=== PATIENT | female | born 1950 | race Caucasian/White ===

== ENCOUNTER 2019-11-18 13:29 | Outpatient (CLI) | payer MEDICARE, SELFPAY ==
--- NOTE | ~2019-11-18 | XR_ITS ---
EXAMINATION: XR lg joint inject/asp w image DATE: 11/18/2019 14:25 INDICATION: Left hip arthritis presenting with pain TECHNIQUE: A time-out was performed to verify the patient's name, date of , and procedure to b e performed. The procedure including the risks, benefits, and alternatives was discussed with the pat ient. Risks discussed included bleeding and infection. The patient understood the risks and agreed to proceed. The skin overlying the left hip joint was prepped and draped in usual sterile fashion. An esthetic was administered with 1% lidocaine subcutaneously. A 22 G needle was advanced under fluoros copic guidance into the joint. Injection of 0.8 mL of Omnipaque 240 confirmed intra-articular positi on of the needle. Subsequently, injectate consisting of 3 mm of a 2:1 mixture of 0.5% Marcaine: 80 m g/mL Depo-Medrol for a total dosage of 80 mg Depo-Medrol was instilled. Washout of contrast was seen confirming intra-articular administration. The needle was removed and the entry site was cleaned and dressed. There were no immediate complications. Fluoroscopy exposure time was 0.2 minutes. The total number of images was 2. FINDINGS: Real-time fluoroscopy demonstrates the needle in the left hip joint. Patient's pain prior t o procedure:12/22. Patient's pain following the procedure: 10/24. IMPRESSION: 1. Left hip injection of local anesthetic and steroid with decrease in the patient's presenting pain. Reviewed, dictated and finalized at location A. TH INFORMATION SPECIALIST IMPRESSION: 1. Left hip injection of local anesthetic and steroid with decrease in the nolvia ent's presenting pain.
== END 2019-11-18 13:30 | disposition home or self-care (01) ==
LOC: ANHIMG 13:30
PROVIDERS: PCP Internal Medicine; Visit Provider Orthopaedic Surgery
DX: M16.12 Unilateral primary osteoarthritis, left hip (principal)
CPT/HCPCS: 20610; 77002; J1040; Q9966

== ENCOUNTER 2020-03-22 22:57 | Observation (INO) | payer MEDICARE, SELFPAY ==
[2020-03-22 23:00] VITALS: BP 157/80; PULSE 84; RESP 18; TEMP 37.3; O2SAT 98
[2020-03-22 23:13] VITALS: BP 157/80; PULSE 84; RESP 18; TEMP 37.3; O2SAT 98
--- NOTE | 2020-03-22 23:20 | ECG_ITS ---
Measurements Intervals [place] Rate: 84 P: 44 VT: 196 QRS: 1 QRSD: 106 T: 48 QT: 376 QTc: 447 Interpretive Statements SINUS RHYTHM BASELINE ARTIFACT- I, II, III, AVR, AVL, AVF, V1 NORMAL ECG Electronically Signed On 03-23-2020 7:26:14 CDT by Manan Davenport D.O.
[2020-03-22] MEDS: ONDANSETRON INJ 4 MG/2 ML VIAL IV PUSH (23:31)
[2020-03-22 23:33] LABS: Hematocrit 41.3 % (35.0-42.0); Hemoglobin 13.7 g/dL (11.7-13.8); Mean Corpuscular HGB Conc 33.2 g/dL (32.0-36.0); Mean Corpuscular Hemoglobin 30.4 pg (27.0-31.0); Mean Corpuscular Volume 91.8 fL (78.0-102.0); Platelet Count Result 209 K/mm3 (150-420); White Blood Count 8.8 K/mm3 (4.8-10.8)
[2020-03-22] MEDS: SODIUM CHLORIDE 0.9% IV 1,000 ML 999 ML IV CONT (23:43)
[2020-03-22 23:47] LABS: Add Urine Microscopic? YES; Appearance Urine Clear (Clear); Bilirubin Urine Negative (Negative); Blood Urine Negative (Negative); Color Urine Yellow (Yellow); Glucose Urine UA Negative (Negative); Ketones Urine 2+ (Negative); Leukocyte Esterase Ur Trace (Negative); Nitrate Urine Negative (Negative); Protein Urine Trace (Negative); pH Urine 8.5 (5.0-8.0)
[2020-03-22 23:53] LABS: Lactic Acid 1.8 mmol/L (0.4-2.0)
[2020-03-22 23:53] LABS: Bacteria Urine 4+ /hpf; RBC Urine 0-2 /hpf (0-2); Squamous Epithelial Cell Urine Moderate /hpf (Few)
[2020-03-22 23:58] LABS: Alanine Aminotransferase 23 U/L (14-59); Alkaline Phosphatase 70 U/L (46-116); Anion Gap 12.1 mmol/L (7-16); Aspartate Amino Transferase 26 U/L (15-37); Bilirubin,Total 1.4 mg/dL (0.00-1.00); Blood Urea Nitrogen 10 mg/dL (7-18); Calcium 8.7 mg/dL (8.5-10.1); Carbon Dioxide 26 mmol/L (21-32); Chloride 104 mmol/L (98-108); Creatine Kinase 62 U/L (26-192); Estimated CRCL calculation 61 ml/min; Estimated Glomerular Filt Rate 46; Glucose 113 mg/dL (70-99); Osmolality Calculated 286 mOsm/kg (285-295); Potassium 4.1 mmol/L (3.5-5.1); Sodium 138 mmol/L (136-145); Thyroid Stimulating Hormone 0.02 uIU/mL (0.36-3.74); Total Protein 6.2 g/dL (6.4-8.2)
[2020-03-22 23:59] LABS: Troponin I 0.08 ng/mL (0.00-0.056)
[2020-03-23] VITALS (14 sets, daily range): BP systolic 116–147; BP diastolic 57–85; PULSE 70–88; RESP 18–20; TEMP 36.4–37; O2SAT 94–98; BMI 42.5
--- NOTE | 2020-03-23 00:01 | PC.NURSE ---
Pt. assisted back to bed from commode, pt. c/o general weakness and feeling exhausted . VSS at this time.
--- NOTE | 2020-03-23 00:05 | ED.NAVMDI ---
HPI - Nausea/Vomiting/Diarrhea General Chief complaint: Nausea/Vomiting/Diarrhea Stated complaint: AMB Source: patient Mode of arrival: EMS Limitations: no limitations History of Present Illness HPI Narrative: this is a 70-year-old female that presents with some weakness and nausea, has been going on for the last couple of days but has got a little worse over last couple of hours after her air conditioning at her home has been out for the last couple of days. Patient with a history of hypertension, hyperlipidemia and hypothyroidism. Denies chest pain with no shortness of breath no abdominal pain no back pain, there is currently no fever chills no diarrhea or constipation. MD elicited complaint: nausea Onset (ago): day(s) Associated nausea: Yes Location of pain: none Related Data Home Medications Medication Instructions Recorded Confirmed alprazolam 0.25 mg PO PRN PRN 03/22/20 03/22/20 cyclobenzaprine 10 mg PO PRN PRN 03/22/20 03/22/20 diclofenac sodium 75 mg PO BID 03/22/20 03/22/20 ezetimibe 10 mg PO DAILY 03/22/20 03/22/20 furosemide 40 mg PO PRN PRN 03/22/20 03/22/20 levothyroxine 150 mcg PO DAILY 03/22/20 03/22/20 meloxicam 7.5 mg PO DAILY 03/22/20 03/22/20 nortriptyline 25 mg PO DAILY 03/22/20 03/22/20 pregabalin 200 mg PO BID 03/22/20 03/22/20 propranolol 160 mg PO DAILY 03/22/20 03/22/20 ropinirole 2 mg PO DAILY 03/22/20 03/22/20 spironolactone 100 mg PO DAILY 03/22/20 03/22/20 venlafaxine 150 mg PO DAILY 03/22/20 03/22/20 Allergies Allergy/AdvReac Type Severity Reaction Status Date / Time adhesive Allergy Intermediate RASH Verified 11/11/19 10:38 alendronate sodium Allergy Mild STOMACH Verified 11/11/19 10:38 PAIN atorvastatin Allergy Unknown Unknown Verified 11/11/19 10:38 tizanidine Allergy Unknown Unknown Verified 11/11/19 10:38 Review of Systems Review of Systems: All systems reviewed & are unremarkable except as noted in HPI and below PMFSH Past Medical History Medical History Degenerative joint disease (DJD) of hip HTN (hypertension) Hypothyroidism (acquired) Family History Family History Other Family history of malignant neoplasm Social History Social History Smoking status: Never smoker Alcohol intake: current Exam Const: General: alert Orientation/consciousness: patient oriented x3 HENMT: Head: normal to inspection Eyes: Cornea: corneas normal Pupils: Equal, round and reactive pupils present EOM: EOMs intact bilaterally Neck: Neck: normal visual inspection and no lymphadenopathy Chest: Chest palpation & inspection: normal inspection of the chest Resp: Effort & Inspection: normal respiratory effort Cardio: Rate: regular rate Rhythm: regular rhythm GI: GI Palp: Yes Soft to palpation Percussion: Yes normal to percussion : General: Yes no CVA tenderness Back/Spine/Pelvis: Back: no CVA tenderness Skin: General skin exam: normal color Rashes: no rashes Neuro: General: patient oriented x3 and moves all extremities Extrem: General: normal to inspection and no pedal edema Psych: Mental Status: mental status grossly normal Course Course Emergency Course: patient has been having weakness with some nausea over the last 48 hours, the patient after reassessment is comfortable with no chest pain no shortness of breath no abdominal pain. Vital Signs Vital signs: Vital Signs Temperature 37.3 C 03/22/20 23:00 Pulse Rate 84 03/22/20 23:00 Respiratory Rate 18 03/22/20 23:00 Blood Pressure 157/80 H 03/22/20 23:00 Pulse Oximetry 98 03/22/20 23:00 Temperature 37.3 C 03/22/20 23:13 Pulse Rate 82 03/23/20 00:02 Respiratory Rate 20 03/23/20 00:02 Blood Pressure 130/60 03/23/20 00:02 Pulse Oximetry 97 03/23/20 00:02 MDM - Nausea/Vomiting/Diarrhea Medical Records
--- NOTE | 2020-03-23 00:16 | PC.NURSE ---
ERP spoke c pt. and orders to admit for 23 hr. obs. to tele. Call placed to floor.
[2020-03-23 00:24] LABS: BNP 37.4 pg/mL (0-100)
[2020-03-23] MEDS: ASPIRIN 81 MG CHEWABLE TABLET 324 MG PO (00:34)
--- NOTE | 2020-03-23 01:00 | ADMGEN ---
This patient, Gilma Mills, was admitted to 2nd Floor Room 208-2. Patient/family oriented to hospital policies and general routines including ID bracelet, bed and alarms, visiting hours, pain management, procedures, bathroom and other care routines, personal items, smoking policy, room service/diet, and visiting hours. Valuables list has been completed. Information on how to activate the Rapid Response Team has been discussed. Patient/Family are encouraged to report perceived risks to care and to ask questions if they do not understand what they are told or what they should do.
[2020-03-23] MEDS: SODIUM CHLORIDE 0.9% IV 1,000 ML 100 ML IV CONT ×3 (01:30→21:56)
--- NOTE | 2020-03-23 01:47 | PC.NURSE ---
New bag of IV fluid hung and infusing as ordered.
[2020-03-23 04:38] LABS: Troponin I 0.07 ng/mL (0.00-0.056)
--- NOTE | 2020-03-23 04:40 | PC.NURSE ---
Lab called to report critical troponin level of 0.07.
--- NOTE | 2020-03-23 04:44 | PC.NURSE ---
Dr. Kate notified of critical troponin results; No new orders at this time.
[2020-03-23 07:47] LABS: Basophils Absolute Auto 0.04 K/mm3 (0.00-0.10); Basophils Percent Auto 0.6 % (0.0-1.0); Eosinophils Absolute Auto 0.49 K/mm3 (0.02-0.50); Eosinophils Percent Auto 7.5 % (1.0-6.0); Hematocrit 38.5 % (35.0-42.0); Hemoglobin 12.6 g/dL (11.7-13.8); Immature Granulocyte Absolute 0.02 K/mm3 (0.00-0.00); Immature Granulocyte Percent A 0.3 % (0.0-0.0); Lymphocytes Absolute Auto 1.15 K/mm3 (1.10-4.50); Lymphocytes Percent Auto 17.6 % (18.0-42.0); Mean Corpuscular HGB Conc 32.7 g/dL (32.0-36.0); Mean Corpuscular Hemoglobin 30.4 pg (27.0-31.0); Mean Corpuscular Volume 92.8 fL (78.0-102.0); Mean Platelet Volume 9.2 fl (9.2-11.8); Monocytes Absolute Auto 0.68 K/mm3 (0.10-0.90); Monocytes Percent Auto 10.4 % (2.0-11.0); Neutrophils Absolute Auto 4.2 K/mm3 (1.7-7.2); Neutrophils Percent Auto 63.6 % (50.0-70.0); Platelet Count Result 180 K/mm3 (150-420); Red Blood Count 4.15 M/mm3 (4.20-5.40); Red Cell Distribution Width 12.1 % (11.6-14.4); White Blood Count 6.6 K/mm3 (4.8-10.8)
[2020-03-23 08:03] LABS: BNP 32.4 pg/mL (0-100)
--- NOTE | 2020-03-23 08:09 | PC.NURSE ---
Assisted up to chair for breakfast, slight nausea, no emesis, needed minimal assist to get from sitting to standing position
[2020-03-23 08:13] LABS: Alanine Aminotransferase 24 U/L (14-59); Albumin Level 2.7 g/dL (3.4-5.0); Alkaline Phosphatase 63 U/L (46-116); Anion Gap 11.1 mmol/L (7-16); Aspartate Amino Transferase 27 U/L (15-37); Bilirubin,Total 0.8 mg/dL (0.00-1.00); Blood Urea Nitrogen 9 mg/dL (7-18); Calcium 8.4 mg/dL (8.5-10.1); Carbon Dioxide 27 mmol/L (21-32); Chloride 105 mmol/L (98-108); Estimated CRCL calculation 70 ml/min; Estimated Glomerular Filt Rate 53; Glucose 102 mg/dL (70-99); Magnesium 1.7 mg/dL (1.8-2.4); Osmolality Calculated 286 mOsm/kg (285-295); Potassium 4.1 mmol/L (3.5-5.1); Sodium 139 mmol/L (136-145); Total Protein 5.8 g/dL (6.4-8.2)
[2020-03-23 08:14] LABS: Thyroid Stimulating Hormone 0.03 uIU/mL (0.36-3.74); Troponin I 0.06 ng/mL (0.00-0.056)
[2020-03-23] MEDS: ONDANSETRON INJ 4 MG/2 ML VIAL IV PUSH (08:17)
--- NOTE | 2020-03-23 08:20 | PC.NURSE ---
Nauseated, zofran given, breakfast taken away,
[2020-03-23] MEDS: VENLAFAXINE HCL XR 75 MG CAP.ER.24H 150 MG PO (09:38)
[2020-03-23] MEDS: NORTRIPTYLINE HCL 25 MG CAPSULE PO (09:38)
[2020-03-23] MEDS: PREGABALIN 50 MG CAPSULE 200 MG PO ×2 (09:38→17:07)
[2020-03-23] MEDS: rOPINIRole HCL 1 MG TABLET 2 MG PO (09:39)
[2020-03-23] MEDS: SPIRONOLACTONE 25 MG TABLET 100 MG PO (09:39)
[2020-03-23] MEDS: EZETIMIBE 10 MG TABLET PO (09:39)
[2020-03-23] MEDS: MAGNESIUM SULF 2 GM/WATER 50ML 2 GM/50 ML BAG IVPB (09:41)
--- NOTE | 2020-03-23 10:32 | ECG_ITS ---
Measurements Intervals [place] Rate: 75 P: 54 CO: 220 QRS: 49 QRSD: 105 T: 56 QT: 389 QTc: 436 Interpretive Statements SINUS RHYTHM WITH FIRST DEGREE AV BLOCK ABNORMAL ECG Electronically Signed On 03-23-2020 12:57:49 CDT by Manan Davenport D.O.
[2020-03-23 10:41] LABS: Phosphorus 3.4 mg/dL (2.6-4.7)
--- NOTE | 2020-03-23 10:45 | PC.NURSE ---
IV site painful, stopped infusion, notified hospitalist patient upset and crying, not wanting to stay
--- NOTE | 2020-03-23 11:00 | PC.NURSE ---
IV site restarted and patient agreeable to stay over night with dc tomorrow, more calm, no longer crying
--- NOTE | 2020-03-23 11:16 | PC.NURSE ---
Up to bathroom to void, SBA amd use of walker
--- NOTE | 2020-03-23 12:25 | PM.IMHP ---
H&P: HPI History of Present Illness Chief complaint: hyperthyroidism weakness <Kami Greenfield, MACHINE OPERATOR - Last Filed: 03/23/20 15:25> Narrative: Gilma Mills is a 70 year old female admitted with weakness, Nausea, Vomiting, and Diarrhea. This has been going on for the last couple of days but has got a little worse over last couple of hours. She has not have air conditioning at her home for the last 2-3 days as it is broke and she is unsure when it will be fixed. She also stated that her Levothyroxine was increased from 125 mcg to 150 mcg in recent months, her PCP office confirmed that increase in dose on January 23. Her PCP Dr. Sequeira's office confirmed that the patient's TSH was 7.33 on 12/15/2019. She has a history of hypertension, Fibromyalgia, migraines, hyperlipidemia and hypothyroidism. She was admitted for hyperthyroidism, weakness, elevated troponin level, UTI, and nausea. She was nauseated by the odor of her breakfast meal, so she wanted it removed and asked for a sprite and crackers. Her creatinine in August of 2019 was 0.98, we will consider that a baseline level. Her creatinine at admission yesterday was elevated at 1.17 and GFR low at 46. Patient stated that she has always had a difficult time staying hydrated or drinking enough water. She stated that she was raised and has ingrained in her mind that water would rust her insides . I did discuss with her many sources of beverages that could provide her with hydration besides just plain water. Her total bilirubin was 1.4, slightly elevated. Her troponin was elevated at 0.08 and her TSH was significantly low at 0.02. Her UA showed trace leukocytes, 10-15 wbc's, 4+ bacteria. I have ordered a urine culture to be completed on her ER sample and started her on Rocephin Q 24 hours IV. She has not had any fever, chills, vomiting or diarrhea or constipation complaints overnight or this morning. She currently denies chest pain, SOB, dyspnea, chest palpitations, arm or jaw pain or numbness, abdominal pain, back or flank pain. Her EKG at admission was normal and her continuous cardiac telemetry monitoring has been showing a normal sinus rhythm with a heart rate in the 80s to 90s, with no ectopy or ST changes that are concerning. She has had 3 troponin levels that have all been elevated, but slowly improving, 0.08, 0.07, 0.06. I have ordered another EKG to be done today and a cardiac panel to be completed at 1:00 p.m. this afternoon. Tonight will be OBS night #1, planning on discharge tomorrow. Her daughter is arranging for patient's home air conditioning to be repaired tomorrow afternoon. <Kami Greenfield NP - Last Filed: 03/23/20 15:25> Review of Systems Review of Systems: All systems reviewed & are unremarkable except as noted in HPI and below <Kami Greenfield MACHINE OPERATOR - Last Filed: 03/23/20 15:25> Constitutional: Constitutional: Reports as per HPI, Reports body ache(s), Denies chills, Denies excessive sweating, Denies headache(s), Denies increased appetite, Reports lethargy, Denies snoring, Reports weakness and Denies weight gain <Kami Greenfield MACHINE OPERATOR - Last Filed: 03/23/20 15:25> Eyes: Eyes: Reports as per HPI, Denies blurry vision, Denies exophthalmos, Denies diplopia, Denies floaters, Denies loss of peripheral vision and Denies photophobia <Kami Greenfield, MACHINE OPERATOR - Last Filed: 03/23/20 15:25> ENT: Reports system reviewed and no additional complaints, except as documented, Reports as per HPI, Reports Normal hearing present, Denies facial pain, Denies headache(s), Denies odynophagia and Denies tinnitus <Kami Greenfield NP - Last Filed: 03/23/20 15:25> Cardiovascular: Cardiovascular: Reports as per HPI, Denies chest pain (none at this time, intermittently previously), Denies diaphoresis, Denies pedal edema, Denies leg edema, Denies lightheadedness and Denies palpitations <Kami Greenfield NP - Last Filed: 03/23/20 15:25> Respiratory: Respiratory: Reports as per HPI, Denies chest congestion,
[2020-03-23 13:41] LABS: Creatine Kinase 100 U/L (26-192)
[2020-03-23 13:46] LABS: Troponin I 0.07 ng/mL (0.00-0.056)
[2020-03-23 14:15] LABS: Free T4 Free Thyroxine 2.13 ng/dL (0.76-1.46); Vitamin B12 324 pg/mL (193-986)
--- NOTE | 2020-03-23 15:21 | PC.NURSE ---
In chair watching TV, no pain, fluids infusing
--- NOTE | 2020-03-23 15:58 | PM.EVENT ---
Event Note Event Note Event Note: Pt. admitted with weakness and nausea for several days. Hot outside, fans at home but no A.C. UTI. No fever or leukocytosis. No dysuria. Being treated with Rocephin. No chest pain or hx of CAD. Troponins minimal elevation above upper limits of normal. Normal EKG. Pt. just doesn't feel right today. NO specific symptoms. I examined and spoke with patient. Abdomen is soft and nontender. No CVA percussion pain. I suspect symptoms secondary to UTI. Pt had no fever or tachycardia on presentation. No significant changes in troponins likely indicates this is pt's baseline. . Agree with PRINCIPAL JAVA SOFTWARE ENGINEER's assessment and plan. IVF today, PPI, continue antibiotics. D.C. tomorrow when A.C. is expected to be fixed. Kami Muse will obtain cadiology records tomorrow
--- NOTE | 2020-03-23 17:25 | PC.NURSE ---
Feeling better, in chair eating dinner, no nausea
--- NOTE | 2020-03-23 19:30 | PC.NURSE ---
Patient ambulated to/from bathroom with steady gait. Denies pain/complaints/needs @ this time. IVF infusing to site in RFA without difficulty. No distress noted. Call light in reach.
--- NOTE | 2020-03-23 20:20 | PC.NURSE ---
Patient lying in bed watching tv. Denies pain/complaints/needs @ this time. IVF infusing without difficulty to site in RFA. No distress noted. Call light in reach.
--- NOTE | 2020-03-23 21:40 | PC.NURSE ---
Patient lying in bed reading. Denies pain/complaints/needs @ this time. IVF infusing to site in RFA without difficulty. No distress noted. Call light in reach.
--- NOTE | 2020-03-23 23:20 | PC.NURSE ---
Patient in bed reading. Denies pain/complaints/needs @ this time. No distress noted. IVF infusing to site in RFA without difficulty. Call light in reach.
[2020-03-24] VITALS: BP 113/54; PULSE 76; RESP 18; TEMP 36.5; O2SAT 97
--- NOTE | 2020-03-24 01:20 | PC.NURSE ---
Patient in bed reading. IVF infusing to site in RFA without difficulty. Denies pain/complaints/needs @ this time. No distress noted. Call light in reach.
--- NOTE | 2020-03-24 02:05 | PC.NURSE ---
Patient still lying in bed reading. Nurse asked if patient ever sleeps and patient said she may take short cat naps but that's it. Denies pain/complaints/needs @ this time. IVF infusing to site in RFA without difficulty. No distress noted. Call light in reach.
--- NOTE | 2020-03-24 03:15 | PC.NURSE ---
Patient appears to be sleeping by the rise and fall of her chest. Respirations even and unlabored. No distress noted. IVF infusing to site in RFA without difficulty. Call light in reach.
[2020-03-24 04:00] VITALS: BP 108/55; PULSE 74; RESP 16; TEMP 36.6; O2SAT 94
--- NOTE | 2020-03-24 04:10 | PC.NURSE ---
Patient awakened easily for VS. Denies pain/complaints/needs @ this time. IVF infusing to site in RFA without difficulty. No distress noted. Patient ambulated to/from bathroom with CGA with steady gait. Patient had trouble getting up from toilet this time. Call light in reach.
--- NOTE | 2020-03-24 05:15 | PC.NURSE ---
Patient appears to be sleeping by the rise and fall of her chest. Respirations even and unlabored. IVF infusing to site in RFA without difficulty. No distress noted. Call light in reach.
[2020-03-24 06:04] LABS: Hematocrit 39.5 % (35.0-42.0); Hemoglobin 12.7 g/dL (11.7-13.8); Mean Corpuscular HGB Conc 32.2 g/dL (32.0-36.0); Mean Corpuscular Hemoglobin 30.2 pg (27.0-31.0); Mean Corpuscular Volume 93.8 fL (78.0-102.0); Mean Platelet Volume 9.2 fl (9.2-11.8); Platelet Count Result 216 K/mm3 (150-420); Red Blood Count 4.21 M/mm3 (4.20-5.40); Red Cell Distribution Width 12.3 % (11.6-14.4); White Blood Count 6.6 K/mm3 (4.8-10.8)
--- NOTE | 2020-03-24 06:20 | PC.NURSE ---
Patient lying in bed playing on her phone. IVF infusing to site in RFA without difficulty. Denies pain/complaints/needs @ this time. No distress noted. Call light in reach.
[2020-03-24 06:27] LABS: Alanine Aminotransferase 28 U/L (14-59); Albumin Level 2.7 g/dL (3.4-5.0); Alkaline Phosphatase 68 U/L (46-116); Anion Gap 12.8 mmol/L (7-16); Aspartate Amino Transferase 26 U/L (15-37); Bilirubin,Total 0.5 mg/dL (0.00-1.00); Blood Urea Nitrogen 8 mg/dL (7-18); Calcium 8.5 mg/dL (8.5-10.1); Carbon Dioxide 25 mmol/L (21-32); Chloride 106 mmol/L (98-108); Estimated CRCL calculation 70 ml/min; Estimated Glomerular Filt Rate 53; Glucose 95 mg/dL (70-99); Osmolality Calculated 288 mOsm/kg (285-295); Potassium 3.8 mmol/L (3.5-5.1); Sodium 140 mmol/L (136-145); Total Protein 6.1 g/dL (6.4-8.2)
[2020-03-24 06:28] LABS: Band Neutrophils Percent 0 % (0-6); Eosinophils Absolute Manual 0.85 K/mm3 (0.02-0.5); Eosinophils Percent Manual 13 % (1-6); Lymphocytes Absolute Manual 1.45 K/mm3 (1.1-4.5); Lymphocytes Percent Manual 22 % (18-44); Monocytes Absolute Manual 0.52 K/mm3 (0.1-0.90); Monocytes Percent Manual 8 % (3-9); Neutrophils Absolute Manual 3.76 K/mm3 (1.7-7.2); Neutrophils Percent Manual 57 % (46-73); Total Cells Counted 100; Troponin I 0.07 ng/mL (0.00-0.056)
[2020-03-24 06:29] LABS: Platelet Estimate Adequate (Adequate)
[2020-03-24 08:00] VITALS: BP 119/62; PULSE 72; PULSE 82; RESP 18; TEMP 37.1; O2SAT 95
--- NOTE | 2020-03-24 08:39 | PM.DS ---
DS: Admitting Diagnosis Admitting Diagnosis Admitting Diagnosis: Thyrotoxicosis, unspecified without thyrotoxic crisis or storm DS: Discharge Diagnosis Discharge Diagnosis (1) Hyperthyroidism: Code(s): E05.90 - Thyrotoxicosis, unspecified without thyrotoxic crisis or storm Status: Acute Assessment and Plan: Exogenous Hyperthyroidism. history of hypothyroidism. TSH was significantly low at 0.02. improved to 0.[address] Sequeira's office confirmed that the patient's TSH was 7.33 on 12/15/2019 was on levothyroxine 125 mcg per day until January 23, when her dose was increased to 150 mcg per day by her PCP Dr. Sequeira. her s/s include heat intolerance, tremor, palpitations, anxiety, increased frequency of BMs, shortness of breath at times. currently holding her levothyroxine doses for 5-7 days. will need to be monitored outpatient with serial TSH blood work checks and follow-up with her PCP Dr. Sequeira for guidelines as when it is safe to restart her Levothyroxine needs to continue to work on dietary changes, weight loss and increasing activity - I offered the patient home health PT/OT as well as outpatient physical therapy, both of which she denied. should avoid heat, wear loose fitting clothes, drink plenty of water and stay hydrated. EKG at admission was normal and her continuous cardiac telemetry monitoring has been showing a normal sinus rhythm with a heart rate in the 80s to 90s, with no ectopy or ST changes that are concerning continue to hold her levothyroxine at this time of discharge instructed patient to get weekly TSH lab work completed and follow-up with PCP (2) Weakness: Code(s): R53.1 - Weakness Status: Acute Assessment and Plan: Chronic deconditioning compounded by Hyperthroidism, Dehydration(CARMEN), possible heat exhaustion, needs to continue to work on dietary changes, weight loss and increasing activity - I offered the patient home health PT/OT as well as outpatient physical therapy, both of which she denied. treat UTI rule out cardiac concerns should avoid heat, wear loose fitting clothes, drink plenty of water and stay hydrated PT/OT eval prior to discharge, pssibly Home O2 study prior to discharge. F/U with PCP COVID negative - RULED OUT (3) Elevated troponin I level: Code(s): R79.89 - Other specified abnormal findings of blood chemistry Status: Acute Assessment and Plan: EKG at admission - without ST changes or concerning ectopy. received 325 mg ASA in ED. denies chest pain, SOB, dyspnea, chest palpitations, arm or jaw pain or numbness, abdominal pain, back or flank pain. Continued her home medications for hypertension and hyperlipidemia elevated Troponin levels may be due to her drug induced-hyperthyroidism and/or her possible heat exhaustion and/or dehydration (CARMEN) heart rate has been sinus in the 80s since admission, her most elevated blood pressures were in the 150s over 80s at admission. 3 troponin levels that have all been elevated, but slowly improving, 0.08, 0.07, 0.06. 0.07 to EKGs without acute ST elevation or depression instructed patient to follow-up with her die mounter and make her appointment to be seen by him in 1-[address] Dain Matos in [place], [place] (phone [phone]) (4) UTI (urinary tract infection): Code(s): N39.0 - Urinary tract infection, site not specified Status: Acute Assessment and Plan: no urinary s/s at this time, no flank pain. intake and output documented in monitored may be due to her over -heated home, poor intake, morbid obesity, nausea continue oral hydration after discharge encourage oral hydration as well treated with IV Rocephin while in the hospital, discharged on oral cefdinir monitoring for any fevers, WBC count, urinary complaints. Blood & urine cultures remains process she will need to follow-up with her primary care physician to get her urine and blood culture resul
[2020-03-24 09:01] LABS: BNP 91.3 pg/mL (0-100)
[2020-03-24] MEDS: VENLAFAXINE HCL XR 75 MG CAP.ER.24H 150 MG PO (09:43)
[2020-03-24] MEDS: SPIRONOLACTONE 25 MG TABLET 100 MG PO (09:43)
[2020-03-24] MEDS: PREGABALIN 50 MG CAPSULE 200 MG PO (09:44)
[2020-03-24] MEDS: rOPINIRole HCL 1 MG TABLET 2 MG PO (09:44)
[2020-03-24] MEDS: NORTRIPTYLINE HCL 25 MG CAPSULE PO (09:44)
[2020-03-24] MEDS: ACETAMINOPHEN 325 MG TABLET 650 MG PO (09:47)
[2020-03-24] MEDS: EZETIMIBE 10 MG TABLET PO (09:47)
[2020-03-24 12:00] VITALS: BP 99/52; PULSE 69; RESP 18; TEMP 36.5; O2SAT 94
[2020-03-24 12:46] LABS: Thyroid Stimulating Hormone 0.04 uIU/mL (0.36-3.74)
[2020-03-24 13:39] LABS: SARS-CoV-2 RNA PCR Negative
[2020-03-27 18:49] LABS: Vitamin D 25 Hydroxy 21 ng/mL (30-100)
[2020-03-28 05:10] LABS: Thyroglobulin 3.4 ng/mL (2.8-40.9); Thyroglobulin Antibodies <1 IU/mL (<=1); Thyroid Peroxidase Antibodies <1 IU/mL (<9)
[2020-03-28 14:01] LABS: Parathyroid Intact 59 pg/mL (14-64)
== END 2020-03-24 14:20 | disposition home or self-care (01) ==
LOC: CHSED 03-23 00:22 → CHS2ND 03-23 00:27
PROVIDERS: Nurse Practitioner; Admitting Provider Emergency Medicine; Emergency Provider Emergency Medicine; PCP Internal Medicine; Visit Provider Emergency Medicine
DX: E05.90 Thyrotoxicosis, unspecified without thyrotoxic crisis or storm (principal); E03.9 Hypothyroidism, unspecified; N39.0 Urinary tract infection, site not specified; R79.89 Other specified abnormal findings of blood chemistry; I10 Essential (primary) hypertension; E78.5 Hyperlipidemia, unspecified; M16.10 Unilateral primary osteoarthritis, unspecified hip; M79.7 Fibromyalgia; E66.01 Morbid (severe) obesity due to excess calories; Z20.828 Contact with and (suspected) exposure to other viral communicable diseases
CPT/HCPCS: 36415; 80053; 81001; 82306; 82550; 82553; 82607; 82746; 83036; 83605; 83735; 83880; 83970; 84100; 84432; 84439; 84443; 84484; 85025; 85027; 86376; 86800; 87040; 87077; 87086; 87088; 87186; 87635; 93005; 96361; 96365; 96367; 96375; 96376; 99283; 99285; A9270; C9803; G0378; J0696; J2405; J3475; J7030; U0003

== ENCOUNTER 2020-03-25 21:25 | Observation (INO) | payer MEDICARE, SELFPAY ==
--- NOTE | ~2020-03-25 | US_ITS ---
EXAMINATION: US right upper quadrant DATE: 03/26/2020 10:27 INDICATION: Vomiting TECHNIQUE: Multiple grayscale and Doppler ultrasound images of the right upper quadrant of the abdome n were obtained. COMPARISON: 02/12/2018 FINDINGS: The body of the pancreas appears normal. The pancreatic head and tail are obscured. Liver has normal contour, with a smooth surface. There is increased parenchymal echogenicity and coarsened echotexture consistent with diffuse hepatic steatosis. No liver lesion identified. No intrahepatic biliary duct dilation suspected. Portal venous flow was seen in the hepatopetal, normal direction and has normal Doppler waveform. The gallbladder is normal in appearance. There is no cholelithiasis. The common bi le duct measures 5 mm, which is normal. Sonographic Ramirez sign was reported as negative by the sonog rapher. The visualized proximal inferior vena cava is normal. IMPRESSION: 1. Diffuse hepatic steatosis. Otherwise unremarkable right upper quadrant ultrasound. Reviewed, dictated and finalized at location A. IMPRESSION: 1. Diffuse hepatic steatosis. Otherwise unremarkable right upper quadrant ultra sound.
--- NOTE | ~2020-03-25 | CT_ITS ---
EXAMINATION: CT brain wo con DATE: 03/25/2020 22:33 INDICATION: Persistent vomiting and weakness TECHNIQUE: Computed tomography (CT) of the head was performed without intravenous contrast. Sagittal and coronal reconstructions were performed. The mA was adjusted according to patient size. Iterative reconstruction technique was employed. The dose-length product was 605.33 mGy-cm. COMPARISON: head CT dated 02/15/2018 FINDINGS: No acute intracranial hemorrhage, acute infarction or abnormal extra axial fluid collection. There is minimal scattered white matter hypoattenuation consistent with chronic small vessel ischemic disease . Ventricles are normal and symmetric. No mass/mass effect. The orbits, paranasal sinuses and mastoi d air cells are normal. Hyperostosis frontalis. IMPRESSION: 1. No acute intracranial process. 2. Minimal scattered white matter hypoattenuation consistent with chronic small vessel ischemic disea se. Reviewed, dictated and finalized at location A. IMPRESSION: 1. No acute intracranial process. 2. Minimal scattered white matter hypoattenuation consistent with chronic small vessel ischemic disease.
--- NOTE | ~2020-03-25 | XR_ITS ---
EXAMINATION: XR chest 2V DATE: 03/25/2020 22:32 INDICATION: Vomiting TECHNIQUE: PA and lateral views of the chest were obtained. COMPARISON: Chest radiograph dated 12/01/[address] dated 12/07/2007 FINDINGS: Mild opacities at the right hilum and bilateral lung bases. There are some scattered bronchial wall t hickening. No pleural effusion or pneumothorax. The cardiomediastinal silhouette is normal. Mild thor acic spondylosis. At least moderate osteoarthritis at the right glenohumeral joint with large margina l osteophyte along the humeral head. IMPRESSION: 1. Mild opacities at the right hilum and at the bilateral lung bases which could represent atelectasi s, bronchitis/pneumonia, mild pulmonary edema or some combination thereof. Reviewed, dictated and finalized at location A. IMPRESSION: 1. Mild opacities at the right hilum and at the bilateral lung bases which coul d represent atelectasis, bronchitis/pneumonia, mild pulmonary edema or some com bination thereof.
--- NOTE | 2020-03-25 21:41 | ED.NAVMDI ---
HPI - Nausea/Vomiting/Diarrhea General Chief complaint: Nausea/Vomiting/Diarrhea Stated complaint: nausea, vomitting, diarrhea Time Seen by Provider: 03/25/20 21:42 Source: patient and family Mode of arrival: wheelchair Limitations: no limitations History of Present Illness HPI Narrative: 70-year-old woman comes in today complaining of weakness, nausea, vomiting, diarrhea and discomfort in her chest she describes as fluttering. She states that she had dinner this evening and shortly thereafter she began to have vomiting. she has had some minor bouts of diarrhea since she was discharged yesterday afternoon. She was admitted 2 days ago for similar symptoms and she had positive troponins. She states she does not know if she had black stools or bloody stools. She had no blood in her vomitus. She denies shortness of breath, fever, sick contacts, dysuria, hematuria, and abdominal pain. MD elicited complaint: nausea, vomiting and diarrhea Pertinent past history: other ( Recently admitted for gastroenteritis) Onset (ago): day(s) (3) Description of vomiting: food contents and watery Description of diarrhea: watery Associated nausea: Yes Associated abdominal pain: No Exacerbating factors: eating Relieving factors: none Context: recent antibiotic use Associated symptoms: chest pain, malaise and nausea/vomiting Related Data Home Medications Medication Instructions Recorded Confirmed alprazolam 0.25 mg PO PRN PRN 03/22/20 03/25/20 diclofenac sodium 75 mg PO BID 03/22/20 03/25/20 ezetimibe 10 mg PO DAILY 03/22/20 03/25/20 furosemide 40 mg PO PRN PRN 03/22/20 03/25/20 meloxicam 7.5 mg PO DAILY 03/22/20 03/25/20 nortriptyline 25 mg PO DAILY 03/22/20 03/25/20 pregabalin 200 mg PO BID 03/22/20 03/25/20 propranolol 160 mg PO DAILY 03/22/20 03/25/20 ropinirole 2 mg PO DAILY 03/22/20 03/25/20 spironolactone 100 mg PO DAILY 03/22/20 03/25/20 venlafaxine 150 mg PO DAILY 03/22/20 03/25/20 Allergies Allergy/AdvReac Type Severity Reaction Status Date / Time adhesive Allergy Intermediate RASH Verified 11/11/19 10:38 alendronate sodium Allergy Mild STOMACH Verified 11/11/19 10:38 PAIN atorvastatin Allergy Unknown Unknown Verified 11/11/19 10:38 tizanidine Allergy Unknown Unknown Verified 11/11/19 10:38 Review of Systems Constitutional: Constitutional: Denies chills, Reports fatigue and Denies fever(s) Eyes: Eyes: Denies change in vision and Denies photophobia ENT: Denies dysphagia, Denies nasal congestion and Denies sore throat Cardiovascular: Cardiovascular: Reports as per HPI, Denies rapid heart rate and Denies radiating jaw, neck or arm pain Respiratory: Respiratory: Denies cough, Denies dyspnea and Denies wheezing Gastrointestinal: Gastrointestinal: Denies abdominal pain, Reports diarrhea, Reports nausea and Reports vomiting Genitourinary: Genitourinary: Denies hematuria, Denies nocturia and Denies dysuria Musculoskeletal: Musculoskeletal: Denies back pain, Denies arthralgias and Denies joint swelling Integumentary/Breasts: Skin/Breast: Denies pruritus, Denies erythema and Denies rash Neurologic: Denies vertigo, Denies dizziness, Denies syncope and Reports numbness ( left arm) Hematologic/Lymphatic: Hematologic/Lymphatic: Denies easy bleeding and Denies easy bruising Allergic/Immunologic: Allergic/Immunologic: Denies lip swelling and Denies wheezing PMFSH Past Medical History Medical History (Updated 03/25/20 @ 23:10 by Michele Driscoll MD) Degenerative joint disease (DJD) of hip HTN (hypertension) Hypothyroidism (acquired) Surgical History Surgical History (Updated 03/25/20 @ 22:06 by Michele Driscoll MD) H/O shoulder surgery History of hysterectomy Hx of total knee arthroplasty Social History Social History Smoking status: Never smoker Alcohol intake: never Substance use: never Substance use type: does not use Gender identity (if verb
[2020-03-25 21:42] VITALS: BP 148/72; PULSE 74; RESP 17; TEMP 36.6; O2SAT 100
--- NOTE | 2020-03-25 21:47 | ECG_ITS ---
Measurements Intervals [place] Rate: 58 P: 32 AR: 201 QRS: 24 QRSD: 106 T: 38 QT: 440 QTc: 435 Interpretive Statements SINUS BRADYCARDIA BASELINE ARTIFACT- I, II, III, AVR, AVL, AVF, V1-V6 BORDERLINE ECG Electronically Signed On 03-26-2020 7:38:16 CDT by Manan Davenport D.O.
[2020-03-25] MEDS: SODIUM CHLORIDE 0.9% IV 1,000 ML 999 ML IV CONT (21:50)
[2020-03-25] MEDS: ONDANSETRON INJ 4 MG/2 ML VIAL IV PUSH (21:50)
[2020-03-25 22:09] LABS: Basophils Absolute Auto 0.04 K/mm3 (0.00-0.10); Basophils Percent Auto 0.6 % (0.0-1.0); Eosinophils Absolute Auto 0.61 K/mm3 (0.02-0.50); Eosinophils Percent Auto 9.4 % (1.0-6.0); Hematocrit 40.7 % (35.0-42.0); Hemoglobin 13.5 g/dL (11.7-13.8); Immature Granulocyte Absolute 0.01 K/mm3 (0.00-0.00); Immature Granulocyte Percent A 0.2 % (0.0-0.0); Lymphocytes Absolute Auto 1.27 K/mm3 (1.10-4.50); Lymphocytes Percent Auto 19.6 % (18.0-42.0); Mean Corpuscular HGB Conc 33.2 g/dL (32.0-36.0); Mean Corpuscular Hemoglobin 30.6 pg (27.0-31.0); Mean Corpuscular Volume 92.3 fL (78.0-102.0); Mean Platelet Volume 9.2 fl (9.2-11.8); Monocytes Absolute Auto 0.48 K/mm3 (0.10-0.90); Monocytes Percent Auto 7.4 % (2.0-11.0); Neutrophils Absolute Auto 4.1 K/mm3 (1.7-7.2); Neutrophils Percent Auto 62.8 % (50.0-70.0); Platelet Count Result 246 K/mm3 (150-420); Red Blood Count 4.41 M/mm3 (4.20-5.40); White Blood Count 6.5 K/mm3 (4.8-10.8)
[2020-03-25 22:09] LABS: Add Urine Microscopic? NO; Appearance Urine Clear (Clear); Bilirubin Urine Negative (Negative); Blood Urine Negative (Negative); Color Urine Yellow (Yellow); Glucose Urine UA Negative (Negative); Ketones Urine Negative (Negative); Leukocyte Esterase Ur Negative (Negative); Nitrate Urine Negative (Negative); Protein Urine Negative (Negative); Specific Grav Ur 1.015 (1.010-1.020); Urobilinogen Urine 0.2 mg/dL (0.2-1.0)
[2020-03-25 22:16] LABS: Amphetamine Screen Urine Negative (Negative); Barbiturate Screen Urine Negative (Negative); Benzodiazepines Screen Urine Negative (Negative); Cannabinoid Screen Urine Negative (Negative); Cocaine Screen Urine Negative (Negative); Methadone Screen Urine Negative (Negative); Opiate Screen Urine Negative (Negative); Phencyclidine Screen Urine Negative (Negative)
[2020-03-25 22:23] LABS: Partial Thromboplastin Time 26.8 SEC (22.3-31.6); Prothrombin Time 10.8 Seconds (9.64-11.0)
[2020-03-25 22:26] LABS: Alanine Aminotransferase 30 U/L (14-59); Alkaline Phosphatase 79 U/L (46-116); Anion Gap 11.6 mmol/L (7-16); Aspartate Amino Transferase 23 U/L (15-37); Bilirubin,Total 0.4 mg/dL (0.00-1.00); Blood Urea Nitrogen 8 mg/dL (7-18); Calcium 8.9 mg/dL (8.5-10.1); Carbon Dioxide 27 mmol/L (21-32); Chloride 104 mmol/L (98-108); Estimated Glomerular Filt Rate 50; Glucose 95 mg/dL (70-99); Lipase 114 U/L (73-393); Osmolality Calculated 286 mOsm/kg (285-295); Potassium 3.6 mmol/L (3.5-5.1); Sodium 139 mmol/L (136-145); Total Protein 6.4 g/dL (6.4-8.2)
[2020-03-25 22:27] LABS: Troponin I 0.07 ng/mL (0.00-0.056)
[2020-03-25 22:28] LABS: Lactic Acid Reflex 1.3 mmol/L (0.4-2.0)
[2020-03-25 23:01] VITALS: BP 130/60; PULSE 60; RESP 20; TEMP 36.6; O2SAT 98
--- NOTE | 2020-03-25 23:35 | ADMGEN ---
This patient, Gilma Mills, was admitted to 2nd Floor Room 227-1. Patient/family oriented to hospital policies and general routines including ID bracelet, bed and alarms, visiting hours, pain management, procedures, bathroom and other care routines, personal items, smoking policy, room service/diet, and visiting hours. Valuables list has been completed. Information on how to activate the Rapid Response Team has been discussed. Patient/Family are encouraged to report perceived risks to care and to ask questions if they do not understand what they are told or what they should do.
[2020-03-25] MEDS: SODIUM CHLORIDE 0.9% IV 1,000 ML 150 ML IV CONT (23:48)
[2020-03-25 23:50] VITALS: BP 129/67; PULSE 62; RESP 18; TEMP 36.2; O2SAT 98
[2020-03-25 23:56] VITALS: BMI 43.0
[2020-03-26] VITALS (7 sets, daily range): BP systolic 128–152; BP diastolic 64–76; PULSE 57–80; RESP 16–20; TEMP 36.2–36.7; O2SAT 96–97
--- NOTE | 2020-03-26 | ECHO_ITS ---
Patient Info Name: Glima Mills Age: 70 years : 1950 Gender: Female Ht: 70 in Wt: 302 lbs BSA: 2.67 m2 HR: 66 bpm BP: 152 / 64 mmHg Heart Rhythm: Sinus Rhythm Technical Quality: Fair Exam Date: 03/26/2020 12:01 PM Exam Location: [facility] Exam Room: 227 Patient Status: Inpatient Admit Date: 03/25/2020 Staff Ordering Physician: Michele Driscoll MD Boiler Welder: Krystal Hale RDCS Attending Provider: Michele Driscoll MD Referring Physician: Americo MURPHY; Exam Type: CA echo dop color flow w con Study Info Indications R53.83 - Other fatigue Complete two-dimensional, color flow and Doppler transthoracic echocardiogram is performed. Strain analysis performed. Contrast/Agitated Saline Contrast/Ag. Saline: Definity Amount: 8.00 ml Existing IV Access: Yes IV Access Condition: patent with no signs of infiltration History/Risk Factors Hypertension: Yes Dyslipidemia: No Myocardial Infarction ([place]): No Obesity: Yes Congestive Heart Failure (CHF): No Cardiomyopathy/LV Systolic Dysfunction: No Diabetes Mellitus: No COPD: No Tobacco Use: Never Cerebrovascular Disease: No Deep Vein Thrombosis (DVT): None Frailty Scale (CSHA): 5: Mildly Frail Cardiac Arrest: No Summary 1. Left ventricular chamber dimension is normal. 2. Definity contrast administered improved wall motion interpretation. 3. Left ventricular systolic function is normal, estimated at 60-65%. 4. The left ventricular diastolic function is grade I diastolic dysfunction. 5. E/e' 8 is minimally elevated. 6. Left atrial chamber dimension is mildly enlarged. 7. No pulmonary hypertension, estimated pulmonary arterial systolic pressure is 29 mmHg. Left Ventricle Definity contrast administered improved wall motion interpretation. E/e' 8 is minimally elevated. Left ventricular chamber dimension is normal. Left ventricular systolic function is normal, estimated at 60-65%. The left ventricular diastolic function is grade I diastolic dysfunction. Right Ventricle Right ventricular chamber dimension is normal. Right ventricular systolic function is normal. Left Atria Left atrial chamber dimension is mildly enlarged. Right Atria Right atrial chamber dimension is normal. Aortic Valve The aortic valve is trileaflet. There is no aortic valve stenosis. There is no aortic valve regurgitation. Pulmonic Valve There is no pulmonic regurgitation. Mitral Valve There is no mitral valve stenosis. There is no mitral valve regurgitation. Tricuspid Valve There is no tricuspid valve regurgitation. No pulmonary hypertension, estimated pulmonary arterial systolic pressure is 29 mmHg. Pericardium/Pleural There is no pericardial effusion. Inferior Vena Cava Normal inferior vena cava with >50% collapse upon inspiration consistent with normal right atrial pressure, 5 mmHg. Aorta The aortic root size at the sinus of Valsalva is normal. Left Ventricular Outflow Tract Name Value Normal LVOT 2D LVOT Diameter 1.49 cm LVOT Doppler
[2020-03-26] MEDS: ASPIRIN 81 MG CHEWABLE TABLET 324 MG PO (00:11)
--- NOTE | 2020-03-26 00:24 | PC.NURSE ---
Patient reported to nurse that she developed hives after taking omnicef. Doctor notified. Omnicef on hold
--- NOTE | 2020-03-26 02:29 | PC.NURSE ---
Patient ambulated to the bathroom with stand by assist and a cane. She required a boost to get up off the toilet. patient denies nausea since being admitted to the floor. Patient taken a cup of ice chips at this time per her request.
[2020-03-26 02:49] LABS: Troponin I 0.07 ng/mL (0.00-0.056)
--- NOTE | 2020-03-26 02:53 | PC.NURSE ---
Second troponin level back. Results remain 0.07. notified
[2020-03-26] MEDS: SODIUM CHLORIDE 0.9% IV 1,000 ML 150 ML IV CONT ×3 (04:55→22:58)
[2020-03-26] MEDS: ALPRAZolam 0.25 MG TABLET PO (05:02)
[2020-03-26] MEDS: ONDANSETRON INJ 4 MG/2 ML VIAL IV PUSH (05:02)
[2020-03-26 05:09] LABS: Basophils Absolute Auto 0.03 K/mm3 (0.00-0.10); Basophils Percent Auto 0.5 % (0.0-1.0); Eosinophils Absolute Auto 0.57 K/mm3 (0.02-0.50); Eosinophils Percent Auto 9.7 % (1.0-6.0); Hematocrit 38.5 % (35.0-42.0); Hemoglobin 12.8 g/dL (11.7-13.8); Immature Granulocyte Absolute 0.02 K/mm3 (0.00-0.00); Immature Granulocyte Percent A 0.3 % (0.0-0.0); Lymphocytes Absolute Auto 1.13 K/mm3 (1.10-4.50); Lymphocytes Percent Auto 19.2 % (18.0-42.0); Mean Corpuscular HGB Conc 33.2 g/dL (32.0-36.0); Mean Corpuscular Hemoglobin 30.7 pg (27.0-31.0); Mean Corpuscular Volume 92.3 fL (78.0-102.0); Mean Platelet Volume 9.3 fl (9.2-11.8); Monocytes Absolute Auto 0.51 K/mm3 (0.10-0.90); Monocytes Percent Auto 8.6 % (2.0-11.0); Neutrophils Absolute Auto 3.6 K/mm3 (1.7-7.2); Neutrophils Percent Auto 61.7 % (50.0-70.0); Platelet Count Result 221 K/mm3 (150-420); Red Blood Count 4.17 M/mm3 (4.20-5.40); White Blood Count 5.9 K/mm3 (4.8-10.8)
[2020-03-26 05:26] LABS: Alanine Aminotransferase 24 U/L (14-59); Albumin Level 2.7 g/dL (3.4-5.0); Alkaline Phosphatase 71 U/L (46-116); Anion Gap 7.9 mmol/L (7-16); Aspartate Amino Transferase 19 U/L (15-37); Bilirubin,Total 0.4 mg/dL (0.00-1.00); Blood Urea Nitrogen 6 mg/dL (7-18); Calcium 8.7 mg/dL (8.5-10.1); Carbon Dioxide 30 mmol/L (21-32); Chloride 105 mmol/L (98-108); Estimated CRCL calculation 79 ml/min; Estimated Glomerular Filt Rate > 60; Glucose 102 mg/dL (70-99); Osmolality Calculated 285 mOsm/kg (285-295); Potassium 3.9 mmol/L (3.5-5.1); Sodium 139 mmol/L (136-145)
[2020-03-26 05:27] LABS: Troponin I 0.08 ng/mL (0.00-0.056)
[2020-03-26 05:31] LABS: BNP 166 pg/mL (0-100)
--- NOTE | 2020-03-26 05:34 | PC.NURSE ---
Troponin and other labs back. Doctor informed of results. No new orders
[2020-03-26] MEDS: PANTOPRAZOLE SODIUM IV 40 MG VIAL IV PUSH ×2 (09:37→20:53)
[2020-03-26] MEDS: SPIRONOLACTONE 25 MG TABLET 100 MG PO (10:18)
[2020-03-26] MEDS: PREGABALIN 50 MG CAPSULE 200 MG PO ×2 (10:18→17:04)
[2020-03-26] MEDS: NITROFURANTOIN MONOHYD MACROCR 100 MG CAP PO ×2 (10:19→20:52)
[2020-03-26] MEDS: NORTRIPTYLINE HCL 25 MG CAPSULE PO (10:19)
[2020-03-26] MEDS: VENLAFAXINE HCL XR 75 MG CAP.ER.24H 150 MG PO (10:19)
[2020-03-26] MEDS: rOPINIRole HCL 1 MG TABLET 2 MG PO (10:19)
[2020-03-26] MEDS: EZETIMIBE 10 MG TABLET PO (10:20)
--- NOTE | 2020-03-26 13:55 | PM.IMHP ---
H&P: HPI History of Present Illness Chief complaint: Gastroenteritis, Elevated Troponin <CHICHI Peoples-C - Last Filed: 03/26/20 14:19> Narrative: Gilma Milsl is a 70 year old female that presented to the ED with complaints of weakness ,nausea, vomiting, diarrhea and discomfort in her chest. patient has a past medical history of DJD of hip, hypertension and hypothyroidism. Patient was discharged from this hospital on 03/24/2020 and returned on 03/25/2020. Patient was admitted for similar symptoms the last admission. during patient's last admission her troponins were slightly elevated with EKG is without acute ST elevations or depressions. patient was discharged home. she noted that when she had dinner yesterday she started vomiting and had a short bout of diarrhea. patient's vital signs are 132/64, 72, 1897.1 and 97% her labs are all normal, her occult blood is pending, lactic acid within normal limits CRP slightly elevated CT of the head negative, chest x-ray did indicate possible bronchitis/ pneumonia with mouth pulmonary edema. patient's BNP 166, RUQ ultrasound indicates diffuse hepatic steatosis otherwise unremarkable, echo pending, EKG sinus Zachary with a heart rate of 58. patient being admitted for gastroenteritis and elevated troponin. Patient able to tolerate all meals , slept well and ambulate at baseline. Patient denies SOB, CP, palpitation, extremity numbness, lightheadness, dizziness, constipation, diarrhea, chills or fever. <CHICHI Peoples-C - Last Filed: 03/26/20 14:19> Review of Systems Review of Systems: Narrative: CONSTITUTIONAL :No weight loss, fever, chills, complains of weakness or fatigue and feeling awful. HEENT: Eyes: No diplopia or blurred vision. ENT: No earache, sore throat or runny nose. CARDIOVASCULAR: No pressure, squeezing, strangling, tightness, heaviness or aching about the chest, neck, axilla or epigastrium. RESPIRATORY: No cough, shortness of breath, PND or orthopnea. GASTROINTESTINAL: complains of nausea, denies vomiting or diarrhea. GENITOURINARY: No dysuria, frequency or urgency. MUSCULOSKELETAL: No muscle, back pain, joint pain or stiffness. SKIN: No change in skin, hair or nails. NEUROLOGIC: No paresthesias, fasciculations, seizures or weakness. PSYCHIATRIC: No disorder of thought or mood. ENDOCRINE: No heat or cold intolerance, polyuria or polydipsia. HEMATOLOGICAL: No easy bruising or bleeding. <KELLY Peoples - Last Filed: 03/26/20 14:19> [facility] Past Medical History Medical History: Medical History (Updated 03/25/20 @ 23:10 by Michele Driscoll MD) Degenerative joint disease (DJD) of hip HTN (hypertension) Hypothyroidism (acquired) <KELLY Peoples - Last Filed: 03/26/20 14:19> Surgical History Surgical History: Surgical History (Updated 03/25/20 @ 22:06 by Michele Driscoll MD) H/O shoulder surgery History of hysterectomy Hx of total knee arthroplasty <KELLY Peoples - Last Filed: 03/26/20 14:19> Social History Social History: Social History Smoking status: Never smoker Alcohol intake: never Substance use: never Substance use type: does not use Gender identity (if verbalized by the patient): Female Sexual Orientation (if Verbalized by the Patient): Straight or Heterosexual Spiritual care concerns: No <KELLY Peoples - Last Filed: 03/26/20 14:19> Meds Home Medications and Allergies Home medications: Home Medications Medication Instructions Recorded Confirmed Type alprazolam 0.25 mg PO PRN PRN 03/22/20 03/25/20 History diclofenac sodium 75 mg PO BID 03/22/20 03/25/20 History ezetimibe 10 mg PO DAILY 03/22/20 03/25/20 History furosemide 40 mg PO PRN PRN 03/22/20 03/25/20 History meloxicam 7.5 mg PO DAILY 03/22/20 03/25/20 History nortriptyline 25 mg PO DAILY 03/22/20 03/25/20 History pregabalin 200 mg PO
[2020-03-26] MEDS: METOCLOPRAMIDE HCL INJ 10 MG/2 ML VIAL 5 MG IV PUSH ×2 (17:03→23:44)
[2020-03-26] MEDS: DICLOFENAC SOD 75 MG TABLET.EC PO (17:04)
--- NOTE | 2020-03-26 19:33 | PC.NURSE ---
Patient in bed resting. Offered to assist to toilet. Declined offer. No report of nausea or vomiting.
--- NOTE | 2020-03-26 20:34 | PC.NURSE ---
Patient resting with call light in reach. No nausea or vomiting at this time.
--- NOTE | 2020-03-26 21:22 | PC.NURSE ---
Patient up to toilet independently with cane. had 21 serving of jello. No report of nausea or vomiting.
[2020-03-27] VITALS: BP 114/68; PULSE 62; RESP 18; TEMP 36.5; O2SAT 93
[2020-03-27 04:00] VITALS: BP 112/50; PULSE 60; PULSE 65; RESP 16; TEMP 36.4; O2SAT 95
[2020-03-27 05:52] LABS: Hematocrit 40.7 % (35.0-42.0); Hemoglobin 13.1 g/dL (11.7-13.8); Mean Corpuscular HGB Conc 32.2 g/dL (32.0-36.0); Mean Corpuscular Volume 93.3 fL (78.0-102.0); Mean Platelet Volume 9.2 fl (9.2-11.8); Platelet Count Result 246 K/mm3 (150-420); Red Blood Count 4.36 M/mm3 (4.20-5.40); Red Cell Distribution Width 12.2 % (11.6-14.4); White Blood Count 5.7 K/mm3 (4.8-10.8)
[2020-03-27] MEDS: SODIUM CHLORIDE 0.9% IV 1,000 ML 150 ML IV CONT (06:03)
[2020-03-27] MEDS: METOCLOPRAMIDE HCL INJ 10 MG/2 ML VIAL 5 MG IV PUSH ×2 (06:04→12:03)
[2020-03-27 06:18] LABS: Anion Gap 7.4 mmol/L (7-16); Blood Urea Nitrogen 5 mg/dL (7-18); CRP 1.3 mg/dL (0.0-0.9); Calcium 8.6 mg/dL (8.5-10.1); Carbon Dioxide 32 mmol/L (21-32); Chloride 104 mmol/L (98-108); Estimated CRCL calculation 72 ml/min; Estimated Glomerular Filt Rate 56; Glucose 100 mg/dL (70-99); Osmolality Calculated 285 mOsm/kg (285-295); Potassium 4.4 mmol/L (3.5-5.1); Sodium 139 mmol/L (136-145)
[2020-03-27 06:50] LABS: Troponin I 0.06 ng/mL (0.00-0.056)
[2020-03-27 06:51] LABS: BNP 179 pg/mL (0-100)
[2020-03-27 07:50] VITALS: BP 113/45; PULSE 74; RESP 18; TEMP 36.2; O2SAT 95
--- NOTE | 2020-03-27 08:00 | PC.NURSE ---
No nausea, tolerated po fluids, intravenous fluids continue
[2020-03-27] MEDS: ACETAMINOPHEN 500 MG TABLET 1000 MG PO (08:38)
[2020-03-27] MEDS: PANTOPRAZOLE SODIUM IV 40 MG VIAL IV PUSH (09:23)
[2020-03-27] MEDS: rOPINIRole HCL 1 MG TABLET 2 MG PO (09:23)
[2020-03-27] MEDS: VENLAFAXINE HCL XR 75 MG CAP.ER.24H 150 MG PO (09:24)
[2020-03-27] MEDS: PREGABALIN 50 MG CAPSULE 200 MG PO ×2 (09:24→16:52)
[2020-03-27] MEDS: NITROFURANTOIN MONOHYD MACROCR 100 MG CAP PO (09:25)
[2020-03-27] MEDS: NORTRIPTYLINE HCL 25 MG CAPSULE PO (09:25)
[2020-03-27] MEDS: SPIRONOLACTONE 25 MG TABLET 100 MG PO (09:25)
[2020-03-27] MEDS: EZETIMIBE 10 MG TABLET PO (09:26)
[2020-03-27] MEDS: DICLOFENAC SOD 75 MG TABLET.EC PO ×2 (09:26→16:52)
--- NOTE | 2020-03-27 10:21 | PC.NURSE ---
up independent in room, denies nausea
--- NOTE | 2020-03-27 10:59 | P.DS_ITS ---
DS: Admitting Diagnosis Admitting Diagnosis Admitting Diagnosis: Nausea with vomiting, unspecified DS: Discharge Diagnosis Discharge Diagnosis (1) Vomiting: Qualifiers: Nausea presence: with nausea Vomiting Intractability: non-intractable Vomiting type: unspecified Qualified Code(s): R11.2 - Nausea with vomiting, unspecified Code(s): R11.10 - Vomiting, unspecified Status: Acute Assessment and Plan: * possibly secondary to unresolved illness from last visit or gastroenteritis * continue Zofran p.r.n. and Reglan * ultrasound unremarkable (2) Discomfort in chest: Code(s): R07.89 - Other chest pain Status: Acute Assessment and Plan: * not believed to be cardiac related * continue PPI * EKG indicates sinus Zachary * patient will need to follow-up with import/export administrator. contacted patient's cardiology will fax echo along with discharge paperwork still office * troponin -03/22-0.008, 03/23- 0.007, 0.06, 0.07, 03/24-0.07, 03/25-0.07, 03/26- 0.07, 0.08., 03-27-0.06 (3) Nausea: Code(s): R11.0 - Nausea Status: Acute Assessment and Plan: * possibly secondary to gastroenteritis or unresolved illness from last visit * continueReglan along with Zofran (4) UTI (urinary tract infection): Code(s): N39.0 - Urinary tract infection, site not specified Status: Acute Assessment and Plan: * continue Macrobid (5) Weakness: Code(s): R53.1 - Weakness Status: Acute Assessment and Plan: * treat underlying cause * hydrate patient * patient refused physical therapy/occupational therapy * follow-up with PCP * COVID ruled out last visit (6) Elevated troponin I level: Code(s): R79.89 - Other specified abnormal findings of blood chemistry Status: Acute Assessment and Plan: * troponin remains unchanged * EKG sinus Zachary with a heart rate of 58 * patient will need to follow-up with import/export administrator in [place] [address] (7) Hypothyroidism (acquired): Code(s): E03.9 - Hypothyroidism, unspecified Status: Acute Assessment and Plan: * Synthroid on hold last visit due to a low TSH * will follow with primary care physician (8) HTN (hypertension): Code(s): I10 - Essential (primary) hypertension Status: Acute Assessment and Plan: * blood pressure stable * continue home medication (9) Degenerative joint disease (DJD) of hip: Qualifiers: Laterality: left Code(s): M16.9 - Osteoarthritis of hip, unspecified Status: Acute Assessment and Plan: * continue NSAIDs * meloxicam discontinue [place] continue at 200 mg b.i.d. and a PPI started * pain controlled DS: Summary Hospital Course Reason for hospitalization: Gilma Mills is a 70 year old female that presented to the ED with complaints of weakness ,nausea, vomiting, diarrhea and discomfort in her chest. patient has a past medical history of DJD of hip, hypertension and hypothyroidism. Patient was discharged from this hospital on 03/24/2020 and returned on 03/25/2020. Patient was admitted for similar symptoms the last admission. during patient's last admission her troponins were slightly elevated ,EKG is without acute ST elevations or depressions. patient was discharged home. she noted that when she had dinner she started vomiting and had a short bout of diarrhea. Lactic acid within normal limits CRP slightly elevated CT of the head negative, chest x-ray did indicate possible bronchitis/ pneumonia with
--- NOTE | 2020-03-27 10:59 | PM.DS ---
DS: Admitting Diagnosis Admitting Diagnosis Admitting Diagnosis: Nausea with vomiting, unspecified DS: Discharge Diagnosis Discharge Diagnosis (1) Vomiting: Qualifiers: Nausea presence: with nausea Vomiting Intractability: non-intractable Vomiting type: unspecified Qualified Code(s): R11.2 - Nausea with vomiting, unspecified Code(s): R11.10 - Vomiting, unspecified Status: Acute Assessment and Plan: possibly secondary to unresolved illness from last visit or gastroenteritis continue Zofran p.r.n. and Reglan ultrasound unremarkable (2) Discomfort in chest: Code(s): R07.89 - Other chest pain Status: Acute Assessment and Plan: not believed to be cardiac related continue PPI EKG indicates sinus Zachary patient will need to follow-up with workers compensation claims adjuster. contacted patient's cardiology will fax echo along with discharge paperwork still office troponin -03/22-0.008, 03/23- 0.007, 0.06, 0.07, 03/24-0.07, 03/25-0.07, 03/26-0.07, 0.08., 03-27-0.06 (3) Nausea: Code(s): R11.0 - Nausea Status: Acute Assessment and Plan: possibly secondary to gastroenteritis or unresolved illness from last visit continueReglan along with Zofran (4) UTI (urinary tract infection): Code(s): N39.0 - Urinary tract infection, site not specified Status: Acute Assessment and Plan: continue Macrobid (5) Weakness: Code(s): R53.1 - Weakness Status: Acute Assessment and Plan: treat underlying cause hydrate patient patient refused physical therapy/occupational therapy follow-up with PCP COVID ruled out last visit (6) Elevated troponin I level: Code(s): R79.89 - Other specified abnormal findings of blood chemistry Status: Acute Assessment and Plan: troponin remains unchanged EKG sinus Zachary with a heart rate of 58 patient will need to follow-up with workers compensation claims adjuster in [place] Dr. Matos (7) Hypothyroidism (acquired): Code(s): E03.9 - Hypothyroidism, unspecified Status: Acute Assessment and Plan: Synthroid on hold last visit due to a low TSH will follow with primary care physician (8) HTN (hypertension): Code(s): I10 - Essential (primary) hypertension Status: Acute Assessment and Plan: blood pressure stable continue home medication (9) Degenerative joint disease (DJD) of hip: Qualifiers: Laterality: left Code(s): M16.9 - Osteoarthritis of hip, unspecified Status: Acute Assessment and Plan: continue NSAIDs meloxicam discontinue [place] continue at 200 mg b.i.d. and a PPI started pain controlled DS: Summary Hospital Course Reason for hospitalization: Gilma Mills is a 70 year old female that presented to the ED with complaints of weakness ,nausea, vomiting, diarrhea and discomfort in her chest. patient has a past medical history of DJD of hip, hypertension and hypothyroidism. Patient was discharged from this hospital on 03/24/2020 and returned on 03/25/2020. Patient was admitted for similar symptoms the last admission. during patient's last admission her troponins were slightly elevated ,EKG is without acute ST elevations or depressions. patient was discharged home. she noted that when she had dinner she started vomiting and had a short bout of diarrhea. Lactic acid within normal limits CRP slightly elevated CT of the head negative, chest x-ray did indicate possible bronchitis/ pneumonia with mouth pulmonary edema. patient's BNP 166, RUQ ultrasound indicates diffuse hepatic steatosis otherwise unremarkable, echo unremarkable, EKG sinus Zachary with a heart rate of 58. patient being admitted for gastroenteritis and elevated troponin. Patient able to tolerate all meals , slept well and ambulate at baseline. Patient denies SOB, CP, palpitation, extremity numbness, lightheadness, dizziness, constipation, diar
[2020-03-27 12:00] VITALS: PULSE 72; PULSE 74; RESP 18; O2SAT 95
--- NOTE | 2020-03-27 13:07 | PC.NURSE ---
echo and dc summary faxed to Dr. Matos's office
--- NOTE | 2020-03-27 13:28 | PC.NURSE ---
Telemetry discontinued, to discharge to home, waiting on ride, spouse gets off work after 6pm
[2020-03-27 16:00] VITALS: BP 121/49; PULSE 66; PULSE 74; RESP 18; TEMP 36.1; O2SAT 95
--- NOTE | 2020-03-27 17:10 | PM.EVENT ---
Event Note Event Note Event Note: I have examined the patient and reviewed the chart. I discussed the patient's care with Toma Mei APN and agree with her assessment and plan.
--- NOTE | 2020-03-27 17:33 | PC.NURSE ---
EAting dinner, awaiting for ride home, all discharge instructions reviewed with patient
--- NOTE | 2020-03-27 18:10 | PC.NURSE ---
Discharged via wheel chair with personal items to home, no questions upon discharge, no n/v
== END 2020-03-27 18:10 | disposition home or self-care (01) ==
LOC: CHSED 23:10 → CHS2ND 03-26 07:08
PROVIDERS: Nurse Practitioner; Admitting Provider Emergency Medicine; Emergency Provider Emergency Medicine; PCP Internal Medicine; Visit Provider Emergency Medicine
DX: R11.2 Nausea with vomiting, unspecified (principal); R07.89 Other chest pain; R53.1 Weakness; R79.89 Other specified abnormal findings of blood chemistry; I10 Essential (primary) hypertension; E03.9 Hypothyroidism, unspecified; M16.10 Unilateral primary osteoarthritis, unspecified hip; K76.0 Fatty (change of) liver, not elsewhere classified; Z79.899 Other long term (current) drug therapy
CPT/HCPCS: 36415; 70450; 71046; 76705; 80048; 80053; 80307; 81003; 83605; 83690; 83880; 84484; 85025; 85027; 85610; 85730; 86140; 87040; 93005; 96361; 96374; 96375; 96376; 99283; 99285; A9270; C8929; C9113; G0378; J2405; J2765; J7030

== ENCOUNTER 2020-05-01 08:19 | Observation (INO) | payer MEDICARE, SELFPAY ==
[2020-05-01] VITALS (8 sets, daily range): BP systolic 102–164; BP diastolic 47–97; PULSE 90–103; RESP 18–20; TEMP 36–37.2; O2SAT 95–98
--- NOTE | ~2020-05-01 | XR_ITS ---
EXAMINATION: XR chest 1V portable EXAM DATE: 05/01/2020 09:41 INDICATION: Nausea and vomiting. TECHNIQUE: Portable AP frontal chest x-ray was obtained. Comparison is made to prior examination from 03/25/2020. FINDINGS: The lungs are clear. There are no pleural effusions. Cardiac silhouette is prominent but magnified on this AP technique. There is no pneumothorax suspected. The bones and soft tissues are unremarkable. There is no significant interval change. IMPRESSION: No acute cardiopulmonary findings. Reviewed, dictated and finalized at location B.
--- NOTE | ~2020-05-01 | XR_ITS ---
EXAMINATION: XR abdomen obstructive series EXAM DATE: 05/01/2020 09:41 INDICATION: Vomiting, nausea. TECHNIQUE: Frontal upright projection of the upper abdomen, frontal projection of the lower abdomen f or interpretation. There is no prior study for comparison. FINDINGS: There is expected amount of colonic stool and gas. No small bowel dilation, nonobstructiv e bowel gas pattern. There are no suspicious calcifications identified. There is no organomegaly suspected. Moderate lumbar dextroscoliosis. Calcifications in the pelvis are believed to be phleboli ths. No basilar consolidation. IMPRESSION: Unremarkable abdomen x-ray exam. Reviewed, dictated and finalized at location B.
--- NOTE | 2020-05-01 08:26 | ECG_ITS ---
Measurements Intervals [place] Rate: 98 P: 67 LA: 198 QRS: 6 QRSD: 102 T: 76 QT: 367 QTc: 470 Interpretive Statements SINUS RHYTHM DELAYED PRECORDIAL R/S TRANSITION BASELINE ARTIFACT- I, II, III, AVR, AVL, AVF BORDERLINE ECG Electronically Signed On 05-01-2020 9:20:15 CDT by Manan Davenport D.O.
--- NOTE | 2020-05-01 08:26 | ED.NAVMDI ---
HPI - Nausea/Vomiting/Diarrhea General Chief complaint: Weakness Stated complaint: ambulance Time Seen by Provider: 05/01/20 08:20 Source: patient Mode of arrival: EMS Limitations: no limitations History of Present Illness HPI Narrative: 70-year-old woman with a history of hypertension and hypothyroidism comes in today complaining of 2 days of nausea, vomiting and fatigue. Patient states that she has had no blood in her stools or blood in her vomitus. patient also states that she was hallucinating this morning, seeing snakes on her ceiling and people that her could not see. She was seen for Vomiting diarrhea and elevated troponin 5 or 6 weeks ago. she denies fever, cough, cold symptoms, abdominal pain, chest pain, shortness of breath, or sick exposures. She denies dysuria, frequency and hematuria. MD elicited complaint: nausea, vomiting and diarrhea Onset (ago): day(s) (2) Description of vomiting: food contents and watery Description of diarrhea: watery Associated nausea: Yes Associated abdominal pain: No Location of pain: none Exacerbating factors: eating Relieving factors: none Associated symptoms: denies other symptoms Related Data Home Medications Medication Instructions Recorded Confirmed alprazolam 0.25 mg PO PRN PRN 03/22/20 03/25/20 diclofenac sodium 75 mg PO BID 03/22/20 03/25/20 ezetimibe 10 mg PO DAILY 03/22/20 03/25/20 furosemide 40 mg PO PRN PRN 03/22/20 03/25/20 nortriptyline 25 mg PO DAILY 03/22/20 03/25/20 pregabalin 200 mg PO BID 03/22/20 03/25/20 propranolol 160 mg PO DAILY 03/22/20 03/25/20 ropinirole 2 mg PO DAILY 03/22/20 03/25/20 spironolactone 100 mg PO DAILY 03/22/20 03/25/20 venlafaxine 150 mg PO DAILY 03/22/20 03/25/20 Allergies Allergy/AdvReac Type Severity Reaction Status Date / Time adhesive Allergy Intermediate RASH Verified 11/11/19 10:38 alendronate sodium Allergy Mild STOMACH Verified 11/11/19 10:38 PAIN atorvastatin Allergy Unknown Unknown Verified 11/11/19 10:38 tizanidine Allergy Unknown Unknown Verified 11/11/19 10:38 cefdinir [From Omnicef] AdvReac Unknown Rash Verified 03/26/20 06:45 Review of Systems Constitutional: Constitutional: Denies chills, Reports fatigue, Denies fever(s) and Reports weakness Eyes: Eyes: Denies change in vision and Denies photophobia ENT: Denies dysphagia, Denies nasal congestion and Denies sore throat Cardiovascular: Cardiovascular: Denies chest pain and Denies radiating jaw, neck or arm pain Respiratory: Respiratory: Denies cough, Denies dyspnea and Denies wheezing Gastrointestinal: Gastrointestinal: Denies abdominal pain, Reports diarrhea, Reports nausea and Reports vomiting Genitourinary: Genitourinary: Denies hematuria, Denies nocturia and Denies dysuria Musculoskeletal: Musculoskeletal: Denies arthralgias and Denies joint swelling Integumentary/Breasts: Skin/Breast: Denies pruritus, Denies erythema and Denies rash Neurologic: Denies vertigo, Denies dizziness, Denies syncope, Denies focal weakness and Denies numbness Psychiatric: Psychiatric: Denies anxiety and Denies depression Comments: Complains of seeing snakes on her ceiling at home this morning Endocrine: Endocrine: Reports fatigue, Denies polydipsia and Denies polyuria Hematologic/Lymphatic: Hematologic/Lymphatic: Denies easy bleeding and Denies easy bruising Allergic/Immunologic: Allergic/Immunologic: Denies lip swelling, Denies throat swelling and Denies tongue swelling PMFSH Past Medical History Medical History (Updated 05/01/20 @ 10:33 by Michele Driscoll MD) Degenerative joint disease (DJD) of hip HTN (hypertension) Hypothyroidism (acquired) Surgical History Surgical History H/O shoulder surgery History of hysterectomy Hx of total knee arthroplasty Social History Social History Smoking status: Never smoker Alcohol intake: never Subst
[2020-05-01] MEDS: SODIUM CHLORIDE 0.9% IV 1,000 ML 999 ML IV CONT (08:40)
[2020-05-01] MEDS: ONDANSETRON INJ 4 MG/2 ML VIAL IV PUSH ×2 (08:50→17:45)
[2020-05-01 08:53] LABS: Basophils Absolute Auto 0.04 K/mm3 (0.00-0.10); Basophils Percent Auto 0.6 % (0.0-1.0); Eosinophils Absolute Auto 0.19 K/mm3 (0.02-0.50); Eosinophils Percent Auto 2.7 % (1.0-6.0); Hematocrit 43.6 % (35.0-42.0); Hemoglobin 14.3 g/dL (11.7-13.8); Immature Granulocyte Absolute 0.03 K/mm3 (0.00-0.00); Immature Granulocyte Percent A 0.4 % (0.0-0.0); Lymphocytes Absolute Auto 1.34 K/mm3 (1.10-4.50); Lymphocytes Percent Auto 18.9 % (18.0-42.0); Mean Corpuscular HGB Conc 32.8 g/dL (32.0-36.0); Mean Corpuscular Hemoglobin 30.2 pg (27.0-31.0); Mean Corpuscular Volume 92.2 fL (78.0-102.0); Mean Platelet Volume 9.2 fl (9.2-11.8); Monocytes Absolute Auto 0.55 K/mm3 (0.10-0.90); Monocytes Percent Auto 7.7 % (2.0-11.0); Neutrophils Percent Auto 69.7 % (50.0-70.0); Platelet Count Result 318 K/mm3 (150-420); Red Blood Count 4.73 M/mm3 (4.20-5.40); Red Cell Distribution Width 12.8 % (11.6-14.4); White Blood Count 7.1 K/mm3 (4.8-10.8)
[2020-05-01 09:06] LABS: Partial Thromboplastin Time 29.3 SEC (22.3-31.6); Prothrombin Time 10.8 Seconds (9.64-11.0)
[2020-05-01 09:17] LABS: Add Urine Microscopic? YES; Appearance Urine Cloudy (Clear); Bilirubin Urine Negative (Negative); Blood Urine Negative (Negative); Color Urine Yellow (Yellow); Glucose Urine UA Negative (Negative); Ketones Urine 2+ (Negative); Leukocyte Esterase Ur Negative LEU/UL (Negative); Nitrate Urine Negative (Negative); Protein Urine Trace (Negative); Specific Grav Ur 1.015 (1.010-1.020); Urobilinogen Urine 0.2 mg/dL (0.2-1.0); pH Urine 8.5 (5.0-8.0)
[2020-05-01 09:18] LABS: Lactic Acid Reflex 1.7 mmol/L (0.4-2.0)
[2020-05-01 09:21] LABS: Bacteria Urine 1+ /hpf; RBC Urine None seen /hpf (0-2); Squamous Epithelial Cell Urine Moderate /hpf (Few); Transitional Epi Cells Urine Few /hpf; WBC Urine None seen /hpf (0-3)
[2020-05-01 09:22] LABS: Alanine Aminotransferase 21 U/L (14-59); Albumin Level 3.2 g/dL (3.4-5.0); Alkaline Phosphatase 115 U/L (46-116); Anion Gap 9 mmol/L (8-16); Aspartate Amino Transferase 19 U/L (15-37); Bilirubin,Total 0.7 mg/dL (0.00-1.00); Blood Urea Nitrogen 11 mg/dL (7-18); CRP 3.4 mg/dL (0.0-0.9); Calcium 9.5 mg/dL (8.5-10.1); Carbon Dioxide 28 mmol/L (21-32); Chloride 100 mmol/L (98-108); Estimated CRCL calculation 71 ml/min; Estimated Glomerular Filt Rate 54; Glucose 127 mg/dL (70-99); Osmolality Calculated 285 mOsm/kg (285-295); Potassium 3.8 mmol/L (3.5-5.1); Sodium 137 mmol/L (136-145); Total Protein 7.4 g/dL (6.4-8.2)
[2020-05-01 09:24] LABS: Acetaminophen 0 ug/mL (10-30); Ethanol < 3 mg/dL (0-6); Magnesium 1.7 mg/dL (1.8-2.4); Phosphorus 1.4 mg/dL (2.6-4.7); Salicylate 0.9 mg/dL (2.8-20.0)
[2020-05-01 09:25] LABS: Amphetamine Screen Urine Negative (Negative); Barbiturate Screen Urine Negative (Negative); Benzodiazepines Screen Urine Negative (Negative); Cannabinoid Screen Urine Negative (Negative); Cocaine Screen Urine Negative (Negative); Methadone Screen Urine Negative (Negative); Opiate Screen Urine Negative (Negative); Phencyclidine Screen Urine Negative (Negative)
[2020-05-01 09:43] LABS: Creatine Kinase 44 U/L (26-192); Troponin I < 0.02 ng/mL (0.00-0.056)
--- NOTE | 2020-05-01 10:49 | PC.NURSE ---
dr barfield spoke with leo , pt daughter, update given. pt to go to floor for observation
[2020-05-01] MEDS: MAGNESIUM SULF 4 GM/WATER100ML 4 GM/100 ML BAG IVPB (11:43)
[2020-05-01] MEDS: SODIUM CHLORIDE 0.45% 1,000 ML 125 ML IV CONT ×2 (12:50→20:36)
[2020-05-01 14:39] LABS: Troponin I < 0.02 ng/mL (0.00-0.056)
--- NOTE | 2020-05-01 14:56 | PM.IMHP ---
H&P: HPI History of Present Illness Date/Time: 05/01/20 14:56 Chief complaint: dehydration Narrative: Gilma Mills is a 70 year old female that presented to the ED with nausea vomiting and diarrhea. Patient has a past medical history of hypertension and hypothyroidism. According to patient Thursday morning she drink milk at approximately 1:00 a.m. and woke with diarrhea at approximately 7:00 a.m.. patient has been having nausea vomiting and diarrhea since the morning. She noted that she was unable to hold anything down and she started hallucinating. she said when she started hallucinating she became afraid called her to the bring her to the ED. patient's vital Signs 102/47, 103, 20, 98.9, 95% on room air, patient magnesium 1.7 phosphorus 1.4, troponin negative CRP 3.4, toxicology negative, COVID-19 pending, checks x-ray unremarkable, urine culture pending blood culture pending and EKG sinus rhythm. Patient is being admitted for dehydration. She noted that she has not had any more nausea vomiting since she was given a Zofran nor has she had any diarrhea. patient is able to tolerate ice chips and Jell-O Patient denies SOB, CP, palpitation, extremity numbness, lightheadness, dizziness, constipation, chills or fever. Review of Systems Review of Systems: All systems reviewed & are unremarkable except as noted in HPI and below ( 10 system review completed) [facility] Past Medical History Medical History (Updated 05/01/20 @ 15:08 by CHICHI Peoples-C) Degenerative joint disease (DJD) of hip HTN (hypertension) Hypothyroidism (acquired) Surgical History Surgical History H/O shoulder surgery History of hysterectomy Hx of total knee arthroplasty Social History Social History Smoking status: Never smoker Alcohol intake: never Substance use: never Substance use type: does not use Gender identity (if verbalized by the patient): Female Spiritual care concerns: No Meds Home Medications and Allergies Home Medications Medication Instructions Recorded Confirmed Type alprazolam 0.25 mg PO PRN PRN 03/22/20 05/01/20 History diclofenac sodium 75 mg PO BID 03/22/20 05/01/20 History ezetimibe 10 mg PO DAILY 03/22/20 05/01/20 History furosemide 40 mg PO PRN PRN 03/22/20 05/01/20 History nortriptyline 25 mg PO DAILY 03/22/20 05/01/20 History propranolol 160 mg PO DAILY 03/22/20 05/01/20 History ropinirole 2 mg PO DAILY 03/22/20 05/01/20 History spironolactone 100 mg PO DAILY 03/22/20 05/01/20 History pantoprazole 40 mg PO QAM #90 tablet 03/27/20 05/01/20 Rx Adult Low Dose Aspirin 81 mg PO DAILY 05/01/20 05/01/20 History biotin 5,000 mcg PO DAILY 05/01/20 05/01/20 History levothyroxine 125 mcg PO DAILY 05/01/20 05/01/20 History melatonin 5 mg PO HS 05/01/20 05/01/20 History naltrexone 4.5 mg PO HS 05/01/20 05/01/20 History Allergies Allergy/AdvReac Type Severity Reaction Status Date / Time adhesive Allergy Intermediate RASH Verified 11/11/19 10:38 alendronate sodium Allergy Mild STOMACH Verified 11/11/19 10:38 PAIN atorvastatin Allergy Unknown Unknown Verified 11/11/19 10:38 tizanidine Allergy Unknown Unknown Verified 11/11/19 10:38 cefdinir [From Omnicef] AdvReac Unknown Rash Verified 03/26/20 06:45 Vital Signs Vital Signs - 24 hr 05/01/20 08:20 05/01/20 10:14 05/01/20 10:54 Temperature 98.6 F 98.9 F Pulse Rate 99 103 H 103 H Respiratory Rate 20 20 20 Blood Pressure 156/82 H 140/66 102/47 L Pulse Oximetry 98 96 95 Exam Narrative: Exam Narrative: General: A well-developed, well-nourished male sitting up in bed no acute distress. HEENT: Normocephalic, atraumatic. PERRL, EOMI. Sclerae anicteric. Oral mucosa moist. Oropharynx clear. Neck: Supple. Respiratory: Lungs are clear to auscultation bilaterally. Cardiovascular: Regular rate and rhythm with S1-S2. Gastrointestina
[2020-05-01] MEDS: DICLOFENAC SOD 75 MG TABLET.EC PO (17:46)
[2020-05-01 18:09] LABS: Troponin I < 0.02 ng/mL (0.00-0.056)
--- NOTE | 2020-05-01 19:54 | PC.NURSE ---
1200 here from er for c/o n/v and seeing snakes on the ceiling. she is a&o x's 4. tearful at times. c/o this is going on and off and this is the 3rd round. still has waves of nausea but none at this time. iv mag started.
[2020-05-01] MEDS: ALPRAZolam 0.25 MG TABLET PO (20:45)
[2020-05-01] MEDS: ACETAMINOPHEN 500 MG TABLET 1000 MG PO (22:15)
--- NOTE | 2020-05-01 22:23 | PC.NURSE ---
aching all over, given tylenol given for pain
--- NOTE | 2020-05-01 23:21 | PC.NURSE ---
obtained recliner chair and assisted to chair for comfort, bed hurting her back, fluids infusing, legs elevated and call light in reach of patient
--- NOTE | 2020-05-01 23:49 | PC.NURSE ---
Feels better sitting in chair, call light in reach of patient, telemetry SR-ST 80-110's
[2020-05-02] MEDS: ALPRAZolam 0.25 MG TABLET PO ×2 (00:13→11:34)
--- NOTE | 2020-05-02 00:14 | PC.NURSE ---
anxoius crying, moved from chair to bed, can't get comfortable, requesting xanax
--- NOTE | 2020-05-02 02:17 | PC.NURSE ---
SBA up to bathroom, tolerated fair, states did fall asleep for a while
[2020-05-02 03:39] VITALS: PULSE 108; RESP 18; TEMP 36.1; O2SAT 95
--- NOTE | 2020-05-02 03:52 | PC.NURSE ---
Up to void, complaints of nausea, fluids infusing
[2020-05-02] MEDS: SODIUM CHLORIDE 0.45% 1,000 ML 125 ML IV CONT ×2 (03:54→11:38)
[2020-05-02] MEDS: ONDANSETRON INJ 4 MG/2 ML VIAL IV PUSH ×2 (03:54→14:21)
[2020-05-02 05:38] LABS: Basophils Absolute Auto 0.04 K/mm3 (0.00-0.10); Basophils Percent Auto 0.6 % (0.0-1.0); Eosinophils Absolute Auto 0.29 K/mm3 (0.02-0.50); Eosinophils Percent Auto 4.3 % (1.0-6.0); Hematocrit 39.3 % (35.0-42.0); Hemoglobin 13.1 g/dL (11.7-13.8); Immature Granulocyte Absolute 0.05 K/mm3 (0.00-0.00); Immature Granulocyte Percent A 0.7 % (0.0-0.0); Lymphocytes Absolute Auto 1.51 K/mm3 (1.10-4.50); Lymphocytes Percent Auto 22.4 % (18.0-42.0); Mean Corpuscular HGB Conc 33.3 g/dL (32.0-36.0); Mean Corpuscular Hemoglobin 30.5 pg (27.0-31.0); Mean Corpuscular Volume 91.6 fL (78.0-102.0); Monocytes Absolute Auto 0.64 K/mm3 (0.10-0.90); Monocytes Percent Auto 9.5 % (2.0-11.0); Neutrophils Absolute Auto 4.2 K/mm3 (1.7-7.2); Neutrophils Percent Auto 62.5 % (50.0-70.0); Platelet Count Result 265 K/mm3 (150-420); Red Blood Count 4.29 M/mm3 (4.20-5.40); Red Cell Distribution Width 13.2 % (11.6-14.4); White Blood Count 6.7 K/mm3 (4.8-10.8)
--- NOTE | 2020-05-02 05:39 | PC.NURSE ---
Up to void, SBA only, pain in hip when ambulating, no vomiting this shift, fluids infusing
[2020-05-02 06:06] LABS: Lactic Acid 1.2 mmol/L (0.4-2.0)
[2020-05-02 06:12] LABS: Alanine Aminotransferase 22 U/L (14-59); Albumin Level 2.9 g/dL (3.4-5.0); Alkaline Phosphatase 104 U/L (46-116); Anion Gap 8 mmol/L (8-16); Aspartate Amino Transferase 24 U/L (15-37); Bilirubin,Total 0.7 mg/dL (0.00-1.00); Blood Urea Nitrogen 9 mg/dL (7-18); Calcium 8.8 mg/dL (8.5-10.1); Carbon Dioxide 27 mmol/L (21-32); Chloride 102 mmol/L (98-108); Estimated CRCL calculation 68 ml/min; Estimated Glomerular Filt Rate 51; Glucose 113 mg/dL (70-99); Magnesium 2.4 mg/dL (1.8-2.4); Osmolality Calculated 283 mOsm/kg (285-295); Potassium 3.8 mmol/L (3.5-5.1); Sodium 137 mmol/L (136-145); Total Protein 6.7 g/dL (6.4-8.2)
[2020-05-02 06:15] LABS: Troponin I < 0.02 ng/mL (0.00-0.056)
[2020-05-02 08:00] VITALS: BP 170/118; PULSE 118; RESP 18; TEMP 36.6; O2SAT 93
[2020-05-02 09:00] VITALS: BP 156/86
[2020-05-02] MEDS: ENOXAPARIN 40 MG/0.4 ML SYRINGE SUB-Q (09:53)
[2020-05-02] MEDS: NORTRIPTYLINE HCL 25 MG CAPSULE PO (09:53)
[2020-05-02] MEDS: DICLOFENAC SOD 75 MG TABLET.EC PO (09:53)
[2020-05-02] MEDS: SPIRONOLACTONE 25 MG TABLET 100 MG PO (09:53)
[2020-05-02] MEDS: PANTOPRAZOLE 40 MG TABLET PO (09:54)
[2020-05-02] MEDS: rOPINIRole HCL 1 MG TABLET 2 MG PO (09:54)
[2020-05-02] MEDS: EZETIMIBE 10 MG TABLET PO (09:55)
--- NOTE | 2020-05-02 11:45 | P.DS_ITS ---
DS: Admitting Diagnosis Admitting Diagnosis Admitting Diagnosis: dehydration <KELLY Peoples - Last Filed: 05/04/20 12:16> DS: Discharge Diagnosis Discharge Diagnosis (1) Malaise: Code(s): R53.81 - Other malaise <KELLY Peoples - Last Filed: 05/04/20 12:16> Status: Acute <KELLY Peoples - Last Filed: 05/04/20 12:16> Assessment and Plan: * secondary to dehydration * will monitor * PT OT eval will be completed before discharge to determine if patient is stable to discharge home <KELLY Peoples - Last Filed: 05/04/20 12:16> (2) Vomiting: Qualifiers: Nausea presence: with nausea Vomiting Intractability: intractable Vomiting type: unspecified Qualified Code(s): R11.2 - Nausea with vomiting, unspecified <KELLY Peoples - Last Filed: 05/04/20 12:16> Code(s): R11.10 - Vomiting, unspecified <KELLY Peoples - Last Filed: 05/04/20 12:16> Status: Acute <KELLY Peoples - Last Filed: 05/04/20 12:16> Assessment and Plan: * resolved patient does complain of dry heaving * possibly secondary to gastroenteritis * with discharge home with Protonix and Reglan * diet advanced * patient instructed to eat a bland diet <KELLY Peoples - Last Filed: 05/04/20 12:16> (3) Hypomagnesemia: Code(s): E83.42 - Hypomagnesemia <Emi Mei GABRIELAC - Last Filed: 05/04/20 12:16> Status: Acute <KELLY Peoples - Last Filed: 05/04/20 12:16> Assessment and Plan: * resolved * secondary to dehydration * replace electrolytes <Emi Mei KELLY - Last Filed: 05/04/20 12:16> (4) DVT prophylaxis: Code(s): Z29.9 - Encounter for prophylactic measures, unspecified <KELLY Peoples - Last Filed: 05/04/20 12:16> Status: Acute <KELLY Peoples - Last Filed: 05/04/20 12:16> Assessment and Plan: continue Lovenox <KELLY Peoples - Last Filed: 05/04/20 12:16> (5) HTN (hypertension): Code(s): I10 - Essential (primary) hypertension <KELLY Peoples - Last Filed: 05/04/20 12:16> Status: Acute <KELLY Peoples - Last Filed: 05/04/20 12:16> Assessment and Plan: * stable * continue spirolactone * continue propranolol * vital signs as ordered * will adjust medication as needed <KELLY Peoples - Last Filed: 05/04/20 12:16> (6) Weakness: Code(s): R53.1 - Weakness <Emi Mei KELLY - Last Filed: 05/04/20 12:16> Status: Acute <KELLY Peoples - Last Filed: 05/04/20 12:16> Assessment and Plan: ? Exhibit tolerance during physical activity as evidenced by a normal fluctuation of vital signs during physical activity. ? Patient will be ability to perform required activities of daily living. ? Provide appropriate nutrition for healing and strength. ? Use appropriate to prevent falls. ? Continue physical therapy/occupational therapy. <Emi Mei KELLY - Last Filed: 05/04/20 12:16> (7) Nausea: Code(s): R11.0 - Nausea <Emi Mei GABRIELAC - Last Filed: 05/04/20 12:16> Status: Acute <Emi Mei KELLY - Last Filed: 05/04/20 12:16> Assessment and Plan: * will discharge with Zofran and reglan <Emi Mei CHICHI-C - Last Filed: 05/04/20 12:16> (8) Hallucination: Code(s): R44.3 - Hallucinations, unspecified <Emi Kerry Jung
--- NOTE | 2020-05-02 11:45 | PM.DS ---
DS: Admitting Diagnosis Admitting Diagnosis Admitting Diagnosis: dehydration <Emi Mei KELLY - Last Filed: 05/04/20 12:16> DS: Discharge Diagnosis Discharge Diagnosis (1) Malaise: Code(s): R53.81 - Other malaise <Emi Mei GABRIELAC - Last Filed: 05/04/20 12:16> Status: Acute <Emi Mei KELLY - Last Filed: 05/04/20 12:16> Assessment and Plan: secondary to dehydration will monitor PT OT eval will be completed before discharge to determine if patient is stable to discharge home <Emi Mei GABRIELAKelsey - Last Filed: 05/04/20 12:16> (2) Vomiting: Qualifiers: Nausea presence: with nausea Vomiting Intractability: intractable Vomiting type: unspecified Qualified Code(s): R11.2 - Nausea with vomiting, unspecified <Emi Mei GABRIELAKelsey - Last Filed: 05/04/20 12:16> Code(s): R11.10 - Vomiting, unspecified <Emi Mei GABRIELAC - Last Filed: 05/04/20 12:16> Status: Acute <Emi Mei KELLY - Last Filed: 05/04/20 12:16> Assessment and Plan: resolved patient does complain of dry heaving possibly secondary to gastroenteritis with discharge home with Protonix and Reglan diet advanced patient instructed to eat a bland diet <Emi Mei DIET TECHDeniceKelsey - Last Filed: 05/04/20 12:16> (3) Hypomagnesemia: Code(s): E83.42 - Hypomagnesemia <Emi Mei CHICHI-C - Last Filed: 05/04/20 12:16> Status: Acute <Emi Mei GABRIELAKelsey - Last Filed: 05/04/20 12:16> Assessment and Plan: resolved secondary to dehydration replace electrolytes <Emi Mei DIET TECHDeniceC - Last Filed: 05/04/20 12:16> (4) DVT prophylaxis: Code(s): Z29.9 - Encounter for prophylactic measures, unspecified <Emi BaeSandoval Mei GABRIELA - Last Filed: 05/04/20 12:16> Status: Acute <Emi Mei KELLY - Last Filed: 05/04/20 12:16> Assessment and Plan: continue Lovenox <Emi Mei KELLY - Last Filed: 05/04/20 12:16> (5) HTN (hypertension): Code(s): I10 - Essential (primary) hypertension <Emi Mei KELLY - Last Filed: 05/04/20 12:16> Status: Acute <Emi Mei KELLY - Last Filed: 05/04/20 12:16> Assessment and Plan: stable continue spirolactone continue propranolol vital signs as ordered will adjust medication as needed <Emi Mei KELLY - Last Filed: 05/04/20 12:16> (6) Weakness: Code(s): R53.1 - Weakness <Emi Mei KELLY - Last Filed: 05/04/20 12:16> Status: Acute <Emi Mei KELLY - Last Filed: 05/04/20 12:16> Assessment and Plan: ? Exhibit tolerance during physical activity as evidenced by a normal fluctuation of vital signs during physical activity. ? Patient will be ability to perform required activities of daily living. ? Provide appropriate nutrition for healing and strength. ? Use appropriate to prevent falls. ? Continue physical therapy/occupational therapy. <Emi Mei KELLY - Last Filed: 05/04/20 12:16> (7) Nausea: Code(s): R11.0 - Nausea <Emi Mei GABRIELA - Last Filed: 05/04/20 12:16> Status: Acute <Emi Mei KELLY - Last Filed: 05/04/20 12:16> Assessment and Plan: will discharge with Zofran and reglan <Emi Payne Sigifredo GABRIELA - Last Filed: 05/04/20 12:16> (8) Hallucination: Code(s): R44.3 - Hallucinations, unspecified <Emi Payne Sigifredo GABRIELA - Last Filed: 05/04/20 12:16> Status: Acute <Emi Mei, DIET TECH-C - Last Filed: 05/04/20 12:16> Assessment and Plan: resolved toxicology screen negative could possibly be due to dehydration recommend psych eval on discharge 4AT dementia assessment complete score of 0 on likely to have dementia will schedule a outpatient MRI of the bra
[2020-05-02 12:00] VITALS: BP 148/84; PULSE 90; RESP 18; TEMP 36.6; O2SAT 95
[2020-05-02 13:04] LABS: Thyroid Stimulating Hormone 3.02 uIU/mL (0.36-3.74); Vitamin B12 493 pg/mL (193-986)
[2020-05-02 13:05] LABS: Ammonia < 10 umol/L (11-32)
[2020-05-02 14:19] LABS: SARS-CoV-2 RNA PCR Negative
--- NOTE | 2020-05-02 14:27 | PC.NURSE ---
c/o feeling bad again. n/v. feels like crude. pt at bedside. picks at lunch. prn given see mar. dry heaves forcefully. nothing coming up. 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
[2020-05-02] MEDS: PROCHLORPERAZINE EDISYLATE 10 MG/2 ML VIAL IM (15:11)
[2020-05-02] MEDS: METOCLOPRAMIDE HCL INJ 10 MG/2 ML VIAL IV PUSH (15:11)
--- NOTE | 2020-05-02 19:43 | PC.NURSE ---
1511 cont to c/o n/v. tearful and unsure if she can care for self at home. physiologist aware and talks with her. new meds see mar.
--- NOTE | 2020-05-02 19:45 | PC.NURSE ---
1600 sleeping soundly. no distress noted.
--- NOTE | 2020-05-02 19:45 | PC.NURSE ---
1640 awake at this time. denies any n/v. claims she thinks she can care for self at home now and is ready to go home. dc paper work went over. vocalizes an understanding. iv out. site is clean and free from redness.
--- NOTE | 2020-05-02 19:48 | PC.NURSE ---
1748 family here and patient taken out to their car. no furthor questions at this time.
== END 2020-05-02 17:45 | disposition home or self-care (01) ==
LOC: CHSED 10:47 → CHS2ND 10:53
PROVIDERS: Nurse Practitioner; Admitting Provider Emergency Medicine; Emergency Provider Emergency Medicine; PCP Internal Medicine; Visit Provider Emergency Medicine
DX: E86.0 Dehydration (principal); K52.9 Noninfective gastroenteritis and colitis, unspecified; E83.42 Hypomagnesemia; I10 Essential (primary) hypertension; E03.9 Hypothyroidism, unspecified; M16.10 Unilateral primary osteoarthritis, unspecified hip; R44.1 Visual hallucinations; Z96.659 Presence of unspecified artificial knee joint; Z79.899 Other long term (current) drug therapy; Z20.828 Contact with and (suspected) exposure to other viral communicable diseases
CPT/HCPCS: 36415; 71045; 74019; 80053; 80307; 81001; 82140; 82550; 82607; 83605; 83735; 84100; 84443; 84484; 85025; 85610; 85730; 86140; 87040; 87086; 87088; 87635; 93005; 96361; 96365; 96372; 96375; 96376; 97161; 97165; 99285; A9270; C9803; G0378; J0780; J1650; J2405; J2765; J3475; J7030; U0003

== ENCOUNTER 2020-05-07 07:35 | Outpatient (CLI) | payer MEDICARE, SELFPAY ==
--- NOTE | ~2020-05-07 | CT_ITS ---
EXAMINATION: CT brain wo/w con DATE: 05/07/2020 08:13 INDICATION: Visual hallucinations. Dizziness. TECHNIQUE: Computed tomography (CT) of the head was performed without and with 100 mL Omnipaque 350 i ntravenous contrast. The mA was adjusted according to patient size. Iterative reconstruction techniqu e was employed. The dose-length product was 1210.67 mGy-cm. COMPARISON: Head CT 03/25/2020 FINDINGS: There is an old infarct in right cerebellum. There is no intracranial hemorrhage, acute inf arction, or abnormal intracranial mass lesion. The ventricles are normal in size. The paranasal sinus es are clear. The orbits are normal. There are trace chronic bilateral mastoid effusions. IMPRESSION: 1. 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 Reviewed, dictated and finalized at location B.
[2020-05-07 10:22] LABS: Anion Gap 7 mmol/L (8-16); Blood Urea Nitrogen 16 mg/dL (7-18); Calcium 8.6 mg/dL (8.5-10.1); Carbon Dioxide 29 mmol/L (21-32); Chloride 100 mmol/L (98-108); Estimated Glomerular Filt Rate 43; Glucose 93 mg/dL (70-99); Osmolality Calculated 283 mOsm/kg (285-295); Potassium 4.4 mmol/L (3.5-5.1); Sodium 136 mmol/L (136-145); Thyroid Stimulating Hormone 1.43 uIU/mL (0.36-3.74)
== END 2020-05-07 07:36 | disposition home or self-care (01) ==
PROVIDERS: Nurse Practitioner; PCP Internal Medicine; Visit Provider Nurse Practitioner
DX: R44.3 Hallucinations, unspecified (principal); E05.90 Thyrotoxicosis, unspecified without thyrotoxic crisis or storm; N17.9 Acute kidney failure, unspecified; N39.0 Urinary tract infection, site not specified
CPT/HCPCS: 36415; 70470; 80048; 84443; Q9965

== ENCOUNTER 2020-05-12 07:01 | Outpatient (CLI) | payer MEDICARE, SELFPAY ==
--- NOTE | ~2020-05-12 | MR_ITS ---
EXAMINATION: MR brain IAC w con DATE: 05/12/2020 07:54 INDICATION: Occipital infarct. TECHNIQUE: Magnetic resonance imaging (MRI) of the brain, brainstem, and internal auditory canals was performed with 10 mL MultiHance intravenous contrast. Sequences included axial and coronal postcontr ast T1-weighted FSE. COMPARISON: Brain MRI 02/25/2017, head CT 05/07/2020 FINDINGS: There is an old infarct in right cerebellum. There is no abnormal mass lesion. The ventricl es are normal in size. The paranasal sinuses are clear. The orbits are normal. The mastoid air cells are normal. IMPRESSION: 1. 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 Reviewed, dictated and finalized at location A.
== END 2020-05-12 07:02 | disposition home or self-care (01) ==
LOC: CHSIMG 07:03
PROVIDERS: PCP Internal Medicine; Visit Provider Internal Medicine
DX: I63.9 Cerebral infarction, unspecified (principal)
CPT/HCPCS: 70552; A9577

== ENCOUNTER 2020-06-05 12:06 | Outpatient (CLI) | payer MEDICARE, SELFPAY ==
--- NOTE | ~2020-06-05 | XR_ITS ---
EXAMINATION: XR lg joint inject/asp w image DATE: 06/05/2020 13:36 INDICATION: Left hip pain. TECHNIQUE: A time-out was performed to verify the patient's name, date of , and procedure to b e performed. The procedure including the risks, benefits, and alternatives was discussed with the pat ient. Risks discussed included bleeding and infection. The patient understood the risks and agreed to proceed. The skin overlying the left hip joint was prepped and draped in usual sterile fashion. An esthetic was administered with 1% lidocaine subcutaneously. A 22 G needle was advanced under fluoros copic guidance into the joint. Injection of 1 mL of Omnipaque 240 confirmed intra-articular position of the needle. Subsequently, injectate consisting of 2 mL 0.5% bupivacaine and 1 mL 80 mg/mL Depo-M edrol was instilled. The needle was removed and the entry site was cleaned and dressed. There were no immediate complications. Fluoroscopy exposure time was 0.1 minutes. The total number of images was 2. FINDINGS: Real-time fluoroscopy demonstrates the needle in the left hip joint. Patient's pain prior t o procedure:10/24. Patient's pain following the procedure: 09/23. IMPRESSION: 1. Left hip joint injection of local anesthetic and steroid with decrease in the patient's presenting pain. Reviewed, dictated and finalized at location A. IMPRESSION: 1. Left hip joint injection of local anesthetic and steroid with decrease in th e patient's presenting pain.
== END 2020-06-05 12:07 | disposition home or self-care (01) ==
PROVIDERS: PCP Internal Medicine; Visit Provider Orthopaedic Surgery
DX: M16.12 Unilateral primary osteoarthritis, left hip (principal)
CPT/HCPCS: 20610; 77002; J1040; Q9966

== ENCOUNTER 2020-06-20 12:59 | Observation (INO) | payer MEDICARE, SELFPAY ==
[2020-06-20] VITALS (9 sets, daily range): BP systolic 130–169; BP diastolic 54–92; PULSE 70–104; RESP 12–26; TEMP 36.7–37.1; O2SAT 95–100; BMI 40.8
--- NOTE | ~2020-06-20 | CT_ITS ---
EXAMINATION: CT abdomen pelvis w con INDICATION: Lower abdominal pain TECHNIQUE: Computed tomographic images of the abdomen and pelvis were obtained after the administrati on of 100 cc of Omnipaque 350 intravenous contrast. The dose-length product (DLP) was 1655.56 mGy-cm. Automated exposure control and iterative reconstruction technique were employed. COMPARISON: 03/18/2007 FINDINGS: Minimal dependent atelectasis is present in the lung bases. The heart size is normal. There is a small sliding hiatal hernia. The liver, spleen, pancreas, gallbladder, and adrenal glands are n ormal. Cysts of the kidneys measure up to 4.1 cm on the left. No pathologically enlarged abdominal or pelvic lymph nodes are identified. There is no free intraperitoneal gas or evidence of bowel obstruc tion. There is severe lumbar spondylosis. There is advanced left hip osteoarthritis and mild right hi p osteoarthritis. IMPRESSION: 1. No CT correlate for the patient's symptoms. Reviewed, dictated and finalized at location A.
--- NOTE | 2020-06-20 13:51 | ED.NAVMDI ---
HPI - Nausea/Vomiting/Diarrhea General Chief complaint: Nausea/Vomiting/Diarrhea Stated complaint: LLQ ABD PAIN Time Seen by Provider: 06/20/20 13:04 Source: patient Mode of arrival: EMS History of Present Illness HPI Narrative: This patient is a 70 year old female with history of fibromyalgia, neuropathy, hypothyroid, CHF who presents for evaluation nausea and dry heaves. She has been dealing with nausea and vomiting intermittently for the past 3 months. She has been admitted to [facility] 2- 3 times for this. She was prescribed antiemetics but she states she has not taken any for her symptoms. This episodes of nausea started yesterday. She was able to eat yesterday. Today she reports she woke up with nausea and dry heaves. She also reports lower abdominal burning pain. She denies diarrhea or constipation.MD elicited complaint: nausea and abdominal pain Related Data Home Medications Medication Instructions Recorded Confirmed alprazolam 0.25 mg PO TID PRN 03/22/20 06/20/20 ezetimibe 10 mg PO DAILY 03/22/20 06/20/20 furosemide 40 mg PO DAILY PRN 03/22/20 06/20/20 nortriptyline 25 mg PO HS 03/22/20 06/20/20 propranolol 160 mg PO DAILY 03/22/20 06/20/20 ropinirole 4 mg PO HS 03/22/20 06/20/20 spironolactone 100 mg PO DAILY 03/22/20 06/20/20 Adult Low Dose Aspirin 81 mg PO DAILY 05/01/20 06/20/20 biotin 5,000 mcg PO DAILY 05/01/20 06/20/20 levothyroxine 125 mcg PO DAILY 05/01/20 06/20/20 melatonin 5 mg PO HS 05/01/20 06/20/20 hydrocodone-acetaminophen 1 tablet PO TID PRN 06/20/20 06/20/20 ondansetron HCl [Zofran] 4 mg PO Q8H PRN 06/20/20 06/20/20 pregabalin 200 mg PO BID 06/20/20 06/20/20 venlafaxine 150 mg PO DAILY 06/20/20 06/20/20 Allergies Allergy/AdvReac Type Severity Reaction Status Date / Time adhesive Allergy Intermediate RASH Verified 06/20/20 13:16 alendronate sodium Allergy Mild STOMACH Verified 06/20/20 13:16 PAIN atorvastatin Allergy Unknown Unknown Verified 06/20/20 13:16 tizanidine Allergy Unknown Unknown Verified 06/20/20 13:16 cefdinir [From [employer]] AdvReac Unknown Rash Verified 06/20/20 13:16 Review of Systems Review of Systems: All systems reviewed & are unremarkable except as noted in HPI and below Constitutional: Constitutional: Reports chills and Reports fatigue Cardiovascular: Cardiovascular: Denies chest pain Respiratory: Respiratory: Denies cough and Denies dyspnea Gastrointestinal: Gastrointestinal: Reports abdominal pain, Reports nausea and Reports vomiting Genitourinary: Genitourinary: Reports dysuria FOR[facility]LY [facility], [facility] Past Medical History Medical History (Updated 06/21/20 @ 18:14 by Denae Bernal MD) Degenerative joint disease (DJD) of hip HTN (hypertension) Hypothyroidism (acquired) Migraine Surgical History Surgical History (Updated 06/21/20 @ 13:12 by Pao Wren DO) H/O shoulder surgery History of hysterectomy Hx of total knee arthroplasty Bilateral Family History Family History Mother Breast cancer Father Chronic obstructive pulmonary disease Sibling Breast cancer Multiple sclerosis Social History Social History (Updated 06/21/20 @ 13:12 by Pao Wren DO) Smoking status: Never smoker Second hand tobacco smoke exposure: No Alcohol intake: never Substance use: never Substance use type: does not use Additional living arrangements comments: Lives with Gender identity (if verbalized by the patient): Female Spiritual care concerns: No Exam Const: General: ill appearing Orientation/consciousness: patient oriented x3 HENMT: Mouth: Yes Normal oral and palatal mucosa present, Yes lip normal, Yes oropharynx normal and Yes moist mucous membranes Eyes: EOM: EOMs intact bilaterally Chest: Chest palpation & inspection: normal inspection of the chest Resp: Effort & Inspection: normal respiratory effort and no retractions Auscultati
[2020-06-20] MEDS: METOCLOPRAMIDE HCL INJ 10 MG/2 ML VIAL IV PUSH (14:18)
[2020-06-20 14:34] LABS: Add Urine Microscopic? YES; Appearance Urine Clear (Clear); Bacteria Urine Trace /hpf; Bilirubin Urine Negative (Negative); Blood Urine Negative (Negative); Color Urine Yellow (Yellow); Glucose Urine UA Negative (Negative); Ketones Urine Trace mg/dL (Negative); Leukocyte Esterase Ur Negative LEU/UL (Negative); Mucus Urine Rare /lpf; Nitrate Urine Negative (Negative); Protein Urine Negative (Negative); RBC Urine 0-2 /hpf (0-2); Specific Grav Ur 1.011 (1.001-1.035); Squamous Epithelial Cell Urine Many /hpf (Few); Urobilinogen Urine Negative mg/dL (<2.0); WBC Urine 0-3 /hpf
[2020-06-20] MEDS: diphenhydrAMINE HCl INJ 50 MG/ML VIAL 25 MG IV PUSH (14:34)
[2020-06-20 14:50] LABS: Basophils Absolute Auto 0.1 K/mm3 (0.0-0.1); Basophils Percent Auto 0.6 % (0.2-1.2); Eosinophils Absolute Auto 0.1 K/mm3 (0-0.3); Eosinophils Percent Auto 1.6 % (0-4.4); Hematocrit 42.2 % (37.0-47.0); Hemoglobin 14.3 g/dL (12.0-15.0); Immature Granulocyte Absolute 0.02 K/mm3 (0.00-0.031); Immature Granulocyte Percent A 0.2 % (0-0.5); Lymphocytes Absolute Auto 1.54 K/mm3 (0.9-3.2); Lymphocytes Percent Auto 17.6 % (18.3-44.2); Mean Corpuscular HGB Conc 33.9 g/dl (32-36); Mean Corpuscular Volume 88.7 fl (80-100); Mean Platelet Volume 8.7 fl (7.4-10.4); Monocytes Absolute Auto 0.7 K/mm3 (0.1-0.6); Monocytes Percent Auto 7.6 % (2.6-8.5); Neutrophils Absolute Auto 6.4 K/mm3 (1.3-6.7); Neutrophils Percent Auto 72.4 % (45.5-73.1); Platelet Count Result 304 k/mm3 (150-375); Red Blood Count 4.76 M/mm3 (4.2-5.4); Red Cell Distribution Width 12.7 % (11.5-14.5); White Blood Count 8.8 K/mm3 (4.5-10.0)
[2020-06-20 15:12] LABS: Alanine Aminotransferase 31 U/L (4-35); Albumin Level 3.7 g/dL (3.5-5.1); Alkaline Phosphatase 109 U/L (38-126); Anion Gap 8 mmol/L (8-16); Aspartate Amino Transferase 26 U/L (14-36); Blood Urea Nitrogen 9 mg/dL (7-17); Calcium 9.4 mg/dL (8.4-10.2); Carbon Dioxide 28 mmol/L (22-30); Chloride 100 mmol/L (98-107); Estimated CRCL calculation 99 ml/min; Estimated Glomerular Filt Rate > 60; Glucose 105 mg/dL (65-105); Lipase 46 U/L (23-300); Sodium 136 mmol/L (137-145)
--- NOTE | 2020-06-20 17:12 | PCCCNOTE ---
06/20/2020 1715 Spoke with pt and daughter regarding SNF; indicated that cost would be out of pocket and thay indicated that they had no means to pay. Called 3 HH agencies; [facility] does not cover [facility], Message left with [facility] and awaiting call back, [facility] indicated that availablitiy and acceptance could probably take until tommorrow d/t late time. Informed Dr. Bernal.
--- NOTE | 2020-06-20 18:20 | PC.NURSE ---
Dietary tray ordered for pt.
--- NOTE | 2020-06-20 19:45 | ADMGEN ---
This patient, Gilma Mills, was admitted to [facility] Surg Room 306-01. Patient/family oriented to hospital policies and general routines including ID bracelet, bed and alarms, visiting hours, pain management, procedures, bathroom and other care routines, personal items, smoking policy, room service/diet, and visiting hours. Valuables list has been completed. Information on how to activate the Rapid Response Team has been discussed. Patient/Family are encouraged to report perceived risks to care and to ask questions if they do not understand what they are told or what they should do.
[2020-06-20] MEDS: FAMOTIDINE 20 MG/2 ML VIAL IV PUSH (21:15)
[2020-06-21 06:00] VITALS: BP 139/66; PULSE 96; RESP 20; TEMP 36.9; O2SAT 97
[2020-06-21] MEDS: ONDANSETRON INJ 4 MG/2 ML VIAL IV PUSH (07:02)
--- NOTE | 2020-06-21 07:04 | PM.IMHP ---
H&P: HPI History of Present Illness Date/Time: 06/21/20 07:04 Chief complaint: Generlized weakness/nausea Narrative: Gilma Mills is a 70 year old female with past medical history of fibromyalgia, migraines, hypertension, hypothyroidism presented to the hospital with complaints of nausea vomiting diarrhea. She has had multiple episodes patient states 4th episode of hospitalization since March 2020 with intractable nausea, last hospitalization was 05/01/2020 in which she was discharged with Reglan and Protonix and instructed to eat a bland diet. She ran out of Reglan 2 weeks ago. She did not follow-up with her primary care PCP Dr. Sequeira because of family commitments with a wedding. She states she has never had EGD in the past. She felt perfectly well on Thursday which went to her pain management appointment, symptom onset was the next day with nausea and vomiting. She has been not able to keep anything down and has had progressive weakness since. Today she felt sick with dry heaves and called 911 who had to break the door down to get her as her was at work. She states there was no medication changes recently. No new foods, no sick contacts, no recent travels. She does not leave the house much and lives with her who helps take care of her. She has never had EGD. She is on Protonix 20 mg daily, takes Zofran 4 mg p.o. q.8 p.r.n. She previously was on diclofenac which she states she stopped a month ago. Upon chart review and previous hospitalizations she presented with hallucinations as well. Patient had been scheduled outpatient MRI for the hallucinations, MRI showed showed an old stroke. PCP Dr. Sequeira In the ED: Patient started on Pepcid 20 b.i.d. labs normal, vitals stable. Patient admitted observation for intractable nausea. Review of Systems Review of Systems: Narrative: Constitutional: No Fever, No Chills, No Night Sweats. Endorses fatigue, generalized weakness ENT/Mouth: No Hearing Changes, No Ear Pain, No Nasal Congestion, No Sinus Pain, No Hoarseness, No sore throat, No Rhinorrhea, No Swallowing Difficulty Eyes: No Eye Pain, No Redness, No Vision Changes Cardiovascular: No Chest Pain, No Palpitations, No Dyspnea on Exertion, No Orthopnea, No Claudication, No Edema Respiratory: No Cough, No Sputum, No Wheezing, No Shortness of Breath Gastrointestinal: No Constipation, No Abdominal Pain, No Heartburn, No Hematochezia, No Melena. Endorses nausea, vomiting, diarrhea, dry heaving Genitourinary: No Dysuria, No Urinary Frequency, No Hematuria, No Urinary Incontinence, No Urgency Musculoskeletal: No Arthralgias, No Myalgias, No Joint Swelling, No Joint Stiffness, No Back Pain Skin: No Skin Lesions, No Pruritis, No Hair Changes Neuro: No Numbness, No Paresthesias, No Loss of Consciousness, No Syncope, No Dizziness, No Headache Psych: No Depression, No Insomnia. Endorses anxiety Heme: No Bruising, No Bleeding Lymph: No Adenopathy Endocrine: No Polyuria, No Polydipsia, No Temperature Intolerance PMFSH Past Medical History Medical History (Updated 06/21/20 @ 13:11 by Pao Wren DO) Degenerative joint disease (DJD) of hip HTN (hypertension) Hypothyroidism (acquired) Migraine Surgical History Surgical History (Updated 06/21/20 @ 13:12 by Pao Wren DO) H/O shoulder surgery History of hysterectomy Hx of total knee arthroplasty Bilateral Family History Family History Mother Breast cancer Father Chronic obstructive pulmonary disease Sibling Breast cancer Multiple sclerosis Social History Social History (Updated 06/21/20 @ 13:12 by Pao Wren DO) Smoking status: Never smoker Second hand tobacco smoke exposure: No Alcohol intake: never Substance use: never Substance use type: does not use Additional living arrangements comments: Lives with Gender identity (if verbalized by the patient):
[2020-06-21 08:00] VITALS: PULSE 96; RESP 20; O2SAT 97
[2020-06-21] MEDS: FAMOTIDINE 20 MG/2 ML VIAL IV PUSH (08:58)
[2020-06-21] MEDS: SODIUM CHLORIDE 0.9% IV 1,000 ML 100 ML IV CONT ×2 (09:15→19:15)
--- NOTE | 2020-06-21 10:31 | WPDGICN ---
Assessment and Plan Assessment and plan (1) Nausea vomiting and diarrhea: Code(s): R11.2 - Nausea with vomiting, unspecified; R19.7 - Diarrhea, unspecified Status: Acute Assessment and Plan: Patient has had recurrent nausea vomiting. For this reason EGD will be planned in the morning. Agree with trial of proton pump inhibitor therapy. She appears quite depressed raising the question whether functional illness is present. Plan is to rehydrate patient an EGD will be performed in the morning further recommendations after endoscopy. (2) Obesity (BMI 30.0-34.9): Code(s): E66.9 - Obesity, unspecified Status: Acute (3) Degenerative joint disease (DJD) of hip: Qualifiers: Osteoarthritis type: primary Laterality: left Qualified Code(s): M16.12 - Unilateral primary osteoarthritis, left hip Code(s): M16.9 - Osteoarthritis of hip, unspecified Status: Acute GI Consult Note Consult date/time: 06/21/20 10:31 HPI: Gilma Mills is a 70 year old female seen in evaluation at the request of the ER. I am asked to see the patient because of recurrent nausea vomiting. Patient has an underlying history of arthritis in her hip, obesity, hypertension, hypothyroidism. She states since March has been in the hospital in [place], [place] on 4 occasions because of recurrent nausea vomiting. Typically symptoms would improve with rehydration. She has been maintained on Protonix and given Zofran for her nausea. She states on Thursday this week began to have nausea and vomiting. Associated with some diarrhea. She began to have some hallucinations at home. At this point was admitted to [facility] for evaluation. She does report some mid epigastric discomfort. She denies any bleeding. She denies any weight loss. Past medical history is significant for arthritis in her hip. Hip replacement has been deferred because of her obesity. Patient reports a past history of fibromyalgia., hypothyroidism, obesity, peripheral neuropathy Family history is noncontributory. Review of Systems Review of Systems: All systems reviewed & are unremarkable except as noted in HPI and below PMFSH Past Medical History Medical History (Updated 06/21/20 @ 10:43 by Jameson Najera MD) Degenerative joint disease (DJD) of hip HTN (hypertension) Hypothyroidism (acquired) Surgical History Surgical History H/O shoulder surgery History of hysterectomy Hx of total knee arthroplasty Family History Family History (Updated 06/20/20 @ 20:35 by Miranda Corrigan RN) Mother Breast cancer Father Chronic obstructive pulmonary disease Sibling Breast cancer Multiple sclerosis Social History Social History Smoking status: Never smoker Second hand tobacco smoke exposure: No Alcohol intake: never Substance use: never Substance use type: does not use Gender identity (if verbalized by the patient): Female Spiritual care concerns: No Meds Home Medications and Allergies Home Medications Medication Instructions Recorded Confirmed Type alprazolam 0.25 mg PO TID PRN 03/22/20 06/20/20 History ezetimibe 10 mg PO DAILY 03/22/20 06/20/20 History furosemide 40 mg PO DAILY PRN 03/22/20 06/20/20 History nortriptyline 25 mg PO HS 03/22/20 06/20/20 History propranolol 160 mg PO DAILY 03/22/20 06/20/20 History ropinirole 4 mg PO HS 03/22/20 06/20/20 History spironolactone 100 mg PO DAILY 03/22/20 06/20/20 History Adult Low Dose Aspirin 81 mg PO DAILY 05/01/20 06/20/20 History biotin 5,000 mcg PO DAILY 05/01/20 06/20/20 History levothyroxine 125 mcg PO DAILY 05/01/20 06/20/20 History melatonin 5 mg PO HS 05/01/20 06/20/20 History pantoprazole 20 mg PO QAM 42 Days #42 tablet 05/02/20 06/20/20 Rx hydrocodone-acetaminophen 1 tablet PO TID PRN 06/20/20 06/20/20 History ondansetron HCl [Zofran] 4 mg PO
[2020-06-21] MEDS: HYDROcodone/acetaminophen (*CRX) 5-325 MG TABLET 1 TAB PO ×2 (13:11→23:04)
[2020-06-21 14:00] VITALS: BP 150/72; PULSE 81; RESP 14; TEMP 36.4; O2SAT 98
[2020-06-21] MEDS: EZETIMIBE 10 MG TABLET PO (14:38)
[2020-06-21] MEDS: ASPIRIN 81 MG ENTERIC TABLET PO (14:38)
[2020-06-21] MEDS: VENLAFAXINE HCL XR 75 MG CAP.ER.24H 150 MG PO (14:39)
[2020-06-21] MEDS: PREGABALIN (*CRX) 50 MG CAPSULE 200 MG PO (17:21)
[2020-06-21 19:30] VITALS: O2SAT 94
[2020-06-21] MEDS: MELATONIN 5 MG TABLET PO (21:02)
[2020-06-21] MEDS: rOPINIRole HCL 1 MG TABLET 4 MG PO (21:02)
[2020-06-21] MEDS: NORTRIPTYLINE HCL 25 MG CAPSULE PO (21:02)
[2020-06-21] MEDS: PANTOPRAZOLE SODIUM IV 40 MG VIAL IV PUSH (21:03)
[2020-06-21 22:00] VITALS: BP 114/82; PULSE 87; RESP 18; TEMP 36.6; O2SAT 94
[2020-06-21] MEDS: ALPRAZolam (*CRX) 0.25 MG TABLET PO (23:06)
[2020-06-22] VITALS (7 sets, daily range): BP systolic 113–143; BP diastolic 66–100; PULSE 72–80; RESP 18–22; TEMP 36.2–36.6; O2SAT 92–96
[2020-06-22] MEDS: SODIUM CHLORIDE 0.9% IV 1,000 ML 100 ML IV CONT
[2020-06-22 06:45] LABS: Hematocrit 38.5 % (37.0-47.0); Hemoglobin 12.4 g/dL (12.0-15.0); Mean Corpuscular HGB Conc 32.2 g/dl (32-36); Mean Corpuscular Hemoglobin 29.8 pg (26-34); Mean Corpuscular Volume 92.5 fl (80-100); Mean Platelet Volume 8.6 fl (7.4-10.4); Platelet Count Result 326 k/mm3 (150-375); Red Blood Count 4.16 M/mm3 (4.2-5.4); Red Cell Distribution Width 13.3 % (11.5-14.5); White Blood Count 7.4 K/mm3 (4.5-10.0)
[2020-06-22 07:08] LABS: Potassium 4.4 mmol/L (3.4-5.0)
[2020-06-22 07:10] LABS: Anion Gap 6 mmol/L (8-16); Blood Urea Nitrogen 12 mg/dL (7-17); Calcium 9.1 mg/dL (8.4-10.2); Carbon Dioxide 32 mmol/L (22-30); Chloride 100 mmol/L (98-107); Estimated CRCL calculation 69 ml/min; Estimated Glomerular Filt Rate 55; Glucose 101 mg/dL (65-105); Sodium 138 mmol/L (137-145)
--- NOTE | 2020-06-22 08:28 | PM.DS ---
DS: Admitting Diagnosis Admitting Diagnosis Admitting Diagnosis: Generlized weakness/nausea DS: Discharge Diagnosis Discharge Diagnosis (1) Nausea vomiting and diarrhea: Code(s): R11.2 - Nausea with vomiting, unspecified; R19.7 - Diarrhea, unspecified Status: Acute Assessment and Plan: EGD negative for structural phenomenon to explain GI symptoms. Likely a functional disorder considering psychiatric history on multiple medications as well as increased stress being stuck at home without much socializing. Patient is not surprised and understands the suspected diagnosis, she states she has been under lot of stress since the summer not being able to be as active as she would like. Patient to Follow-up with PCP. (2) Functional bowel disorder: Code(s): K59.9 - Functional intestinal disorder, unspecified Status: Acute (3) Weakness: Code(s): R53.1 - Weakness Status: Acute Assessment and Plan: Weakness from dehydration. DS: Summary Hospital Course Reason for hospitalization: intractable nausea vomiting Hospital Course: Patient is a 61-year-old female with past medical history fibromyalgia, migraines, hypertension, hypothyroidism who presents to the hospital with complaints of nausea/vomiting / diarrhea. She has had multiple admissions 4 for the same issues over the summer. previously she has been admitted for weakness from dehydration vomiting. Last hospitalization was 05/01/2020 was discharged with Reglan and Protonix and instructed the mind diet. Is unable to follow-up with her PCP Dr. Sequeira. these episodes are not precipitated by anything specific. Usually she is treated with IV fluids for dehydration to resolve her weakness. she had EGD 06/22/[address] Najera which found no structural etiology for her nausea / vomiting. Likely symptoms are caused by functional GI disorder, which would be consistent with her significant stress and multiple medications to manage her fibromyalgia. We discussed trying to get new hobbies to try to keep her mind occupied. advised her to follow-up with primary care doctor. Will give Rx refill for Zofran to take as needed. patient's vitals stable, labs stable, patient is stable for discharge. Status at Discharge Functional status at discharge: independent ambulation Overall status at discharge: patient is back to baseline Time Spent with Patient Time attestation: Total time spent providing and/or coordinating discharge services:35 Time spent: Greater than 30 minutes Exam Narrative: Exam Narrative: - GENERAL: Obese female sitting comfortably in bed in no acute distress. - EYES: EOMI. Anicteric. - HENT: moist oral mucosa. No scleral icterus. - LUNGS: Clear to auscultation bilaterally, no wheezing, rhonchi, or rales. - CARDIOVASCULAR: Regular rate and rhythm. No murmur. No JVD. - ABDOMEN: Soft, non-tender and non-distended. No palpable masses. - EXTREMITIES: Trace edema. Peripheral pulses 2+. Non-tender. - NEUROLOGIC: No focal neurological deficits. CN II-XII grossly intact. - PSYCHIATRIC: Awake, Alert and oriented x 3. Appropriate mood and affect. - SKIN: No rashes or lesions. Warm. - LYMPH: No cervical lymphadenopathy. DS: Data Data Completed and Pending Labs on day of discharge: Labs from last 24 hours 06/22/20 06/22/20 06:13 06:13 WBC 7.4 RBC 4.16 L Hgb 12.4 Hct 38.5 MCV 92.5 MCH 29.8 MCHC 32.2 RDW 13.3 Plt Count 326 MPV 8.6 Sodium 138 Potassium 4.4 Chloride 100 Carbon Dioxide 32 H Anion Gap 6 L BUN 12 Creatinine 1.00 Estim Creat Clear Calc 69 Estimated GFR 55 L Glucose 101 Calcium 9.1 Magnesium 2.0 Discharge Plan Discharge Attending physician on discharge: Pao Wren Consulting providers: Jameson Najera Discharging Clinician: Pao Wren Anticipated Discharge Date/Time: 06/22/20 13:50 Patient Disposition: Home, Self-Care Activity: as t
[2020-06-22] MEDS: LACTATED RINGERS 1,000 ML 150 ML IV CONT (11:13)
--- NOTE | 2020-06-22 11:28 | WPDANESEPPF ---
Anes - Initial Pre Proc Eval Procedure: Operation Date: 06/22/20 11:30 Proposed Procedures p Esophagogastroduodenoscopy - Jameson Najera MD Date/Time: 06/22/20 11:28 Surgeon: Hector Lenz MD Pre Op Diagnosis: Generlized weakness/nausea Patient Data Age: 70 Gender: F Height: 5 ft 10 in Weight: 129.2 kg Last Vital Signs Temp 97.9 F 06/22/20 11:10 Pulse 74 06/22/20 11:10 Resp 18 06/22/20 11:10 BP 132/70 06/22/20 11:10 Pulse Ox 94 06/22/20 11:10 Allergies Allergy/AdvReac Type Severity Reaction Status Date / Time adhesive Allergy Intermediate RASH Verified 06/20/20 13:16 alendronate sodium Allergy Mild STOMACH Verified 06/20/20 13:16 PAIN atorvastatin Allergy Unknown Unknown Verified 06/20/20 13:16 tizanidine Allergy Unknown Unknown Verified 06/20/20 13:16 cefdinir [From [employer]] AdvReac Unknown Rash Verified 06/20/20 13:16 Home Medications Medication Instructions Recorded Confirmed Type alprazolam 0.25 mg PO TID PRN 03/22/20 06/20/20 History ezetimibe 10 mg PO DAILY 03/22/20 06/20/20 History furosemide 40 mg PO DAILY PRN 03/22/20 06/20/20 History nortriptyline 25 mg PO HS 03/22/20 06/20/20 History propranolol 160 mg PO DAILY 03/22/20 06/20/20 History ropinirole 4 mg PO HS 03/22/20 06/20/20 History spironolactone 100 mg PO DAILY 03/22/20 06/20/20 History Adult Low Dose Aspirin 81 mg PO DAILY 05/01/20 06/20/20 History biotin 5,000 mcg PO DAILY 05/01/20 06/20/20 History levothyroxine 125 mcg PO DAILY 05/01/20 06/20/20 History melatonin 5 mg PO HS 05/01/20 06/20/20 History pantoprazole 20 mg PO QAM 42 Days #42 tablet 05/02/20 06/20/20 Rx hydrocodone-acetaminophen 1 tablet PO TID PRN 06/20/20 06/20/20 History ondansetron HCl [Zofran] 4 mg PO Q8H PRN 06/20/20 06/20/20 History pregabalin 200 mg PO BID 06/20/20 06/20/20 History venlafaxine 150 mg PO DAILY 06/20/20 06/20/20 History Laboratory Tests 06/22/20 06/22/20 06:13 06:13 WBC 7.4 K/mm3 K/mm3 (4.5-10.0) RBC 4.16 M/mm3 L M/mm3 (4.2-5.4) Hgb 12.4 g/dL g/dL (12.0-15.0) Hct 38.5 % % (37.0-47.0) MCV 92.5 fl fl (80-100) MCH 29.8 pg pg (26-34) MCHC 32.2 g/dl g/dl (32-36) RDW 13.3 % % (11.5-14.5) Plt Count 326 k/mm3 k/mm3 (150-375) MPV 8.6 fl fl (7.4-10.4) Sodium 138 mmol/L mmol/L (137-145) Potassium 4.4 mmol/L mmol/L (3.4-5.0) Chloride 100 mmol/L mmol/L (98-107) Carbon Dioxide 32 mmol/L H mmol/L (22-30) Anion Gap 6 mmol/L L mmol/L (8-16) BUN 12 mg/dL mg/dL (7-17) Creatinine 1.00 mg/dL mg/dL (0.7-1.0) Estim Creat Clear Calc 69 ml/min ml/min Estimated GFR 55 L (59 - ) Glucose 101 mg/dL mg/dL (65-105) Calcium 9.1 mg/dL mg/dL (8.4-10.2) Magnesium 2.0 mg/dL mg/dL (1.6-2.3) Patient hx anesthesia problems: none Family hx anesthesia problems: none PMFSH Past Medical History Medical History (Updated 06/21/20 @ 18:14 by Denae Bernal MD) Degenerative joint disease (DJD) of hip HTN (hypertension) Hypothyroidism (acquired) Migraine Surgical History Surgical History (Updated 06/21/20 @ 13:12 by Pao Wren DO) H/O shoulder surgery History of hysterectomy Hx of total knee arthroplasty Bilateral Family History Family History Mother Breast cancer Father Chronic obstructive pulmonary disease Sibling Breast cancer Multiple sclerosis Social History Social History (Updated 06/21/20 @ 13:12 by Pao Wren DO) Smoking status: Never smoker Second hand tobacco smoke exposure: No Alcohol intake: never Substance use: never Substance use type: does not use Additional living arrangements comments: Lives with Gender identity (if verbalized by the patient): Female Spiritual care concerns: No Anes - Eval Final PrePr
[2020-06-22] MEDS: BENZOCAINE (*SP) 60 ML SPRAY CAN (HURRICAINE) 1 SPRAY MUCOUS MEM (12:21)
[2020-06-22] MEDS: ASPIRIN 81 MG ENTERIC TABLET PO (14:08)
[2020-06-22] MEDS: PREGABALIN (*CRX) 50 MG CAPSULE 200 MG PO (14:08)
[2020-06-22] MEDS: ENOXAPARIN 40 MG/0.4 ML SYRINGE SUB-Q (14:08)
[2020-06-22] MEDS: VENLAFAXINE HCL XR 75 MG CAP.ER.24H 150 MG PO (14:09)
[2020-06-22] MEDS: EZETIMIBE 10 MG TABLET PO (14:09)
[2020-06-22] MEDS: LEVOTHYROXINE SODIUM 125 MCG TABLET PO (14:11)
--- NOTE | 2020-06-22 14:31 | PCPTNOTE ---
Per RN: held PT due to patient just getting back from a procedure.
== END 2020-06-22 16:45 | disposition home or self-care (01) ==
LOC: ANHED 17:52 → ANH3MEDSUR 06-21 00:07
PROVIDERS: Internal Medicine Gastroenterology; Admitting Provider Internal Medicine; Emergency Provider General Practice; PCP Internal Medicine; Visit Provider Student in an Organized Health Care Education/Training Program
PROC: 0DJ08ZZ Inspection of Upper Intestinal Tract, Via Natural or Artificial Opening Endoscopic (ICD-10-PCS; CPT 43235; principal; 2020-06-22 11:30)
DX: R11.2 Nausea with vomiting, unspecified (principal); K59.9 Functional intestinal disorder, unspecified; R53.1 Weakness; E86.0 Dehydration; R19.7 Diarrhea, unspecified; I10 Essential (primary) hypertension; E03.9 Hypothyroidism, unspecified; M79.7 Fibromyalgia; M16.12 Unilateral primary osteoarthritis, left hip; E66.01 Morbid (severe) obesity due to excess calories; Z68.41 Body mass index [BMI] 40.0-44.9, adult; Z79.82 Long term (current) use of aspirin
CPT/HCPCS: 43235; 36415; 74177; 80048; 80053; 81001; 83690; 83735; 85025; 85027; 87081; 96361; 96372; 96374; 96375; 96376; 97161; 97165; 99285; A9270; C9113; G0378; J1200; J1650; J2405; J2704; J2765; J7030; J7120; Q9967

== ENCOUNTER 2020-07-18 04:56 | Observation (INO) | payer MEDICARE, SELFPAY ==
--- NOTE | ~2020-07-18 | XR_ITS ---
EXAMINATION: XR pelvis 1-2V EXAM DATE: 07/18/2020 06:12 INDICATION: hip pain fall . Initial encounter. TECHNIQUE: Pelvis frontal projection(s) obtained and reviewed. Comparison is made to prior examinatio n from 07/14/2019. FINDINGS: Sacrum, sacroiliac joints, sacral arcuate lines are intact. There are no acute pelvic frac tures identified. Complete loss of the left hip superior joint space with femoral head collapse like ly secondary to avascular necrosis, and subchondral cyst formation of the acetabulum. This has progre ssed compared to prior study. There is moderate right hip primary osteoarthritis. Advanced lower lum bar disc disease. IMPRESSION: No pelvic fracture. Chronic findings as above. Reviewed, dictated and finalized at location B. STANT MEN'S SOCCER COACH
--- NOTE | ~2020-07-18 | XR_ITS ---
EXAMINATION: XR femur LT min 2V EXAM DATE: 07/18/2020 06:12 INDICATION: Pain, fall . Initial encounter. TECHNIQUE: Left femur frontal and lateral projections of the proximal aspect, frontal and lateral pro jections of the lower aspect for review. Comparison is made to prior examination from 07/14/2019. FINDINGS: Complete loss of the left hip superior joint space with femoral head collapse likely seco ndary to avascular necrosis, and subchondral cyst formation of the acetabulum. This has progressed co mpared to prior study. There are no acute fractures identified. There is a left knee arthroplasty, in tact. IMPRESSION: 1. No acute left femoral findings. 2. Left femoral head avascular necrosis, severe secondary osteoarthritis. Reviewed, dictated and finalized at location B. L WINDER
--- NOTE | ~2020-07-18 | CT_ITS ---
EXAMINATION: CT brain wo con INDICATION: Fall with memory loss COMPARISON: 05/07/2020 TECHNIQUE: Standard unenhanced head CT. The dose-length product (DLP) was 605.33 mGy-cm. The mA was a djusted according to patient size. Iterative reconstruction technique was employed. FINDINGS: There is no intracranial hemorrhage, acute infarction, or abnormal mass lesion. An old infa rct of the right cerebellum is again noted. The ventricles are normal. There is no abnormal mass effe ct or midline shift. The onofre-white matter differentiation is normal. The basal cisterns are patent. The orbits are normal. Small chronic mastoid effusions are again noted. The paranasal sinuses and ricardo varium are normal. IMPRESSION: 1. 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 Reviewed, dictated and finalized at location A. STACKER OPERATOR
[2020-07-18 05:00] VITALS: BP 142/83; PULSE 95; RESP 22; TEMP 36.6; O2SAT 95
[2020-07-18] MEDS: KETOROLAC (*BKC) 60 MG/2 ML VIAL IM (05:20)
[2020-07-18] MEDS: ONDANSETRON HCL ODT 4 MG TABLET PO (05:21)
[2020-07-18 05:27] LABS: Basophils Absolute Auto 0.05 K/mm3 (0.00-0.10); Basophils Percent Auto 0.5 % (0.0-1.0); Eosinophils Absolute Auto 0.05 K/mm3 (0.02-0.50); Eosinophils Percent Auto 0.5 % (1.0-6.0); Hematocrit 43.6 % (35.0-42.0); Hemoglobin 14.4 g/dL (11.7-13.8); Immature Granulocyte Absolute 0.04 K/mm3 (0.00-0.00); Immature Granulocyte Percent A 0.4 % (0.0-0.0); Lymphocytes Absolute Auto 1.65 K/mm3 (1.10-4.50); Lymphocytes Percent Auto 15.3 % (18.0-42.0); Mean Corpuscular Hemoglobin 29.9 pg (27.0-31.0); Mean Corpuscular Volume 90.6 fL (78.0-102.0); Mean Platelet Volume 8.3 fl (9.2-11.8); Monocytes Absolute Auto 0.88 K/mm3 (0.10-0.90); Monocytes Percent Auto 8.2 % (2.0-11.0); Neutrophils Absolute Auto 8.1 K/mm3 (1.7-7.2); Neutrophils Percent Auto 75.1 % (50.0-70.0); Platelet Count Result 369 K/mm3 (150-420); Red Blood Count 4.81 M/mm3 (4.20-5.40); Red Cell Distribution Width 12.6 % (11.6-14.4); White Blood Count 10.8 K/mm3 (4.8-10.8)
[2020-07-18 05:47] LABS: Alanine Aminotransferase 23 U/L (14-59); Albumin Level 3.4 g/dL (3.4-5.0); Alkaline Phosphatase 127 U/L (46-116); Anion Gap 13 mmol/L (8-16); Aspartate Amino Transferase 17 U/L (15-37); Bilirubin,Total 0.6 mg/dL (0.00-1.00); Blood Urea Nitrogen 14 mg/dL (7-18); Calcium 10.3 mg/dL (8.5-10.1); Carbon Dioxide 26 mmol/L (21-32); Chloride 97 mmol/L (98-108); Creatine Kinase 39 U/L (26-192); Estimated CRCL calculation 56 ml/min; Estimated Glomerular Filt Rate 41; Glucose 111 mg/dL (70-99); Lipase 60 U/L (73-393); Osmolality Calculated 283 mOsm/kg (285-295); Potassium 4.4 mmol/L (3.5-5.1); Sodium 136 mmol/L (136-145); Total Protein 8.1 g/dL (6.4-8.2)
[2020-07-18 05:51] LABS: BNP 24.8 pg/mL (0-100)
[2020-07-18 05:52] LABS: Troponin I < 0.02 ng/mL (0.00-0.056)
--- NOTE | 2020-07-18 06:25 | ED.FALL ---
HPI - Fall General Chief Complaint: Fall <MD Denice Gustafson Last Filed: 07/18/20 07:35> Stated Complaint: fall <MD Denice Gustafson Last Filed: 07/18/20 07:35> Time Seen by Provider: 07/18/20 05:00 <MD Denice Gustafson Last Filed: 07/18/20 07:35> Source: patient <MD Denice Gustafson Last Filed: 07/18/20 07:35> Mode of arrival: EMS <MD Denice Gustafson Last Filed: 07/18/20 07:35> Limitations: clinical condition <MD Denice Gustafson Last Filed: 07/18/20 07:35> History of Present Illness HPI Narrative: Patient says she woke up yesterday on the floor. She had evidently fallen and may have laid there for some time. She comes in now complaining of nausea and vomiting at home. She has also had dry heaves and muscle spasms in left thigh and pain in left thigh and left hip. <MD Denice Gustafson Last Filed: 07/18/20 07:35> Fall from: standing <MD Denice Gustafson Last Filed: 07/18/20 07:35> Fall witnessed: no <MD Denice Gustafson Last Filed: 07/18/20 07:35> Place fall occurred: home <MD Denice Gustafson Last Filed: 07/18/20 07:35> Loss of consciousness: unclear if this involved loss of consciousness <MD Denice Gustafson Last Filed: 07/18/20 07:35> Prolonged down time: unclear (it is unclear how long she was on the floor) <MD Denice Gustafson Last Filed: 07/18/20 07:35> Symptoms prior to fall: none <MD Denice Gustafson Last Filed: 07/18/20 07:35> Location of injury: other (complains of left thigh pain) <MD Denice Gustafson Last Filed: 07/18/20 07:35> Location of injury - extremities: Left: thigh (complains of left thigh pain) <MD Denice Gustafson Last Filed: 07/18/20 07:35> Severity: moderate <Jamesno L. MD Denice Dubon Last Filed: 07/18/20 07:35> Severity scale (1-10): 8 <Jameson L. MD Denice Dubon Last Filed: 07/18/20 07:35> Quality: sharp <Jameson L. MD Denice Dubon Last Filed: 07/18/20 07:35> Associated symptoms (after fall): other (nausea and vomiting) <Jameson L. MD Denice Dubon Last Filed: 07/18/20 07:35> Related Data Home Medications: Home Medications Medication Instructions Recorded Confirmed alprazolam 0.25 mg PO TID PRN 03/22/20 07/18/20 ezetimibe 10 mg PO DAILY 03/22/20 07/18/20 furosemide 20 mg PO DAILY PRN 03/22/20 07/18/20 nortriptyline 25 mg PO HS 03/22/20 07/18/20 propranolol 160 mg PO DAILY 03/22/20 07/18/20 ropinirole 4 mg PO HS 03/22/20 07/18/20 spironolactone 100 mg PO DAILY 03/22/20 07/18/20 Adult Low Dose Aspirin 81 mg PO DAILY 05/01/20 07/18/20 levothyroxine 125 mcg PO DAILY 05/01/20 07/18/20 hydrocodone-acetaminophen 1 tablet PO TID PRN 06/20/20 07/18/20 venlafaxine 150 mg PO DAILY 06/20/20 07/18/20 <Jameson L. MD Denice Dubon Last Filed: 07/18/20 07:35> Allergies/Adverse Reactions: Allergies Allergy/AdvReac Type Severity Reaction Status Date / Time adhesive Allergy Intermediate RASH Verified 06/20/20 13:16 alendronate sodium Allergy Mild STOMACH Verified 06/20/20 13:16 PAIN atorvastatin Allergy Unknown Unknown Verified 06/20/20 13:16 tizanidine Allergy Unknown Unknown Verified 06/20/20 13:16 [email or web address] [From Omnicef] AdvReac Unknown Rash Verified 06/20/20 13:16 <Jameson L. MD Denice Dubon Last Filed: 07/18/20 07:35> Review of Systems Review of Systems: All systems reviewed & are unremarkable except as noted in HPI and below <Jameson L. MD Denice Dubon Last Filed: 07/18/20 07:35> Cardiovascular: Comments: No history of know heart disease <Jameson Dubon MD - Last Filed: 07/18/20 07:35> Musculoskeletal: Comments: Severe osteoarthritis in left hip. She was to have a hip replacement if she could loose some weight. <Jameson Dubon MD - Last Filed: 07/18/20 07:35> FOR[facility]LY [facility], [facility] Past Medical History Medical History: Medical History Degenerative joint disease (DJD) of hip Functional bowel disorder HTN (hypertension) Hypothyroidism (acquired) Migraine <Jameson Dubon MD - Last Filed: 07/18/20 07:35
--- NOTE | 2020-07-18 06:49 | ECG_ITS ---
Measurements Intervals [place] Rate: 96 P: 57 SD: 180 QRS: 10 QRSD: 103 T: 71 QT: 373 QTc: 473 Interpretive Statements SINUS RHYTHM DELAYED PRECORDIAL R/S TRANSITION BASELINE ARTIFACT- II, III, AVF BORDERLINE ECG Electronically Signed On 07-18-2020 8:11:25 ROLLER COASTER DESIGNER by Manan Davenport D.O.
[2020-07-18] MEDS: ONDANSETRON INJ 4 MG/2 ML VIAL IV PUSH ×2 (06:58)
[2020-07-18 08:22] VITALS: BP 110/63; PULSE 90; RESP 18; O2SAT 96
[2020-07-18 08:35] VITALS: BP 138/62; PULSE 75; RESP 18; TEMP 36.2; O2SAT 96; BMI 40.4
--- NOTE | 2020-07-18 08:44 | PC.NURSE ---
Admitted to observation for fall at home, nausea and pain, states nausea continues at this time, no emesis, just pain in left leg and hip region at this time, toradol helped some in the ED, but pain is coming back, 12/22, oriented to room and call system
--- NOTE | 2020-07-18 09:05 | PC.NURSE ---
Urine obtained and taken to lab
--- NOTE | 2020-07-18 09:08 | PM.IMHP ---
H&P: HPI History of Present Illness Date/Time: 07/18/20 09:08 Chief complaint: dehydration intractable vomitting Narrative: Gilma Mills is a 70 year old female that presented to ED today after syncope episode. Patient has a past medical history of degenerative joint disease of the hip, functional bowel disorder, hypertension, hypothyroidism, migraines. According to the patient she developed nausea and vomiting 2 days ago with lower extremity spasms. According to patient yesterday morning she was sitting in her chair and somehow ended up on the floor. Patient is unsure of how she ended up on the floor. Patient noted that she decided to come to ED the following day because her situation worsen she continues to have nausea and vomiting with pain to her left leg and muscle spasms in her lower extremities with weakness patient lactic acid troponin and BNP were all within normal limits, patient head CT indicated an old infarct but no new ones, left femur x-ray and pelvis unremarkable. Patient creatinine slightly elevated other labs within normal limits. Patient EKG sinus rhythm with a heart rate of 96. Patient is being admitted for dehydration and acute kidney injury. Patient notes that she still has nausea and vomiting with left leg pain and muscle spasm. The patient denies SOB, CP, palpitation, extremity numbness, lightheadedness, dizziness, constipation, diarrhea, chills, or fever. Review of Systems Review of Systems: All systems reviewed & are unremarkable except as noted in HPI and below (10 point system review) [facility] Past Medical History Medical History Degenerative joint disease (DJD) of hip Functional bowel disorder HTN (hypertension) Hypothyroidism (acquired) Migraine Surgical History Surgical History H/O shoulder surgery History of hysterectomy Hx of total knee arthroplasty Bilateral Family History Family History Mother Breast cancer Father Chronic obstructive pulmonary disease Sibling Breast cancer Multiple sclerosis Social History Social History (Updated 06/21/20 @ 13:12 by Pao Wren DO) Smoking status: Never smoker Second hand tobacco smoke exposure: Yes Alcohol intake: current Drinks per week: 0 Substance use: never Substance use type: does not use Additional living arrangements comments: Lives with Gender identity (if verbalized by the patient): Female Spiritual care concerns: No Meds Home Medications and Allergies Home Medications Medication Instructions Recorded Confirmed Type alprazolam 0.25 mg PO TID PRN 03/22/20 07/18/20 History ezetimibe 10 mg PO DAILY 03/22/20 07/18/20 History furosemide 20 mg PO DAILY PRN 03/22/20 07/18/20 History nortriptyline 25 mg PO HS 03/22/20 07/18/20 History propranolol 160 mg PO DAILY 03/22/20 07/18/20 History ropinirole 4 mg PO HS 03/22/20 07/18/20 History spironolactone 100 mg PO DAILY 03/22/20 07/18/20 History Adult Low Dose Aspirin 81 mg PO DAILY 05/01/20 07/18/20 History levothyroxine 125 mcg PO DAILY 05/01/20 07/18/20 History pantoprazole 20 mg PO QAM 42 Days #42 tablet 05/02/20 07/18/20 Rx hydrocodone-acetaminophen 1 tablet PO TID PRN 06/20/20 07/18/20 History venlafaxine 150 mg PO DAILY 06/20/20 07/18/20 History ondansetron HCl [Zofran] 4 mg PO Q8H PRN 30 Days #90 tablet 06/22/20 07/18/20 Rx Allergies Allergy/AdvReac Type Severity Reaction Status Date / Time adhesive Allergy Intermediate RASH Verified 06/20/20 13:16 alendronate sodium Allergy Mild STOMACH Verified 06/20/20 13:16 PAIN atorvastatin Allergy Unknown Unknown Verified 06/20/20 13:16 tizanidine Allergy Unknown Unknown Verified 06/20/20 13:16 cefdinir [From Omnicef] AdvReac Unknown Rash Verified 06/20/20 13:16 Vital Signs Vital Signs - 24 hr 07/18/20 05:00 07/18/20 08:22
[2020-07-18 09:11] LABS: Add Urine Microscopic? YES; Appearance Urine Cloudy (Clear); Bilirubin Urine 3+ (Negative); Blood Urine Negative (Negative); Color Urine Amber (Yellow); Glucose Urine UA Negative (Negative); Ketones Urine 2+ (Negative); Leukocyte Esterase Ur Negative LEU/UL (Negative); Nitrate Urine Positive (Negative); Protein Urine 1+ (Negative); Specific Grav Ur >= 1.030 (1.010-1.020)
[2020-07-18] MEDS: SODIUM CHLORIDE 0.9% IV 1,000 ML 100 ML IV CONT ×2 (09:18→20:15)
[2020-07-18] MEDS: VENLAFAXINE HCL XR 75 MG CAP.ER.24H 150 MG PO (09:21)
[2020-07-18] MEDS: PANTOPRAZOLE SOD SESQUIHYDRATE 20 MG TAB PO (09:21)
[2020-07-18] MEDS: ASPIRIN 81 MG ENTERIC TABLET PO (09:22)
[2020-07-18] MEDS: SPIRONOLACTONE 25 MG TABLET 100 MG PO (09:22)
[2020-07-18] MEDS: EZETIMIBE 10 MG TABLET PO (09:22)
[2020-07-18 09:25] LABS: Bacteria Urine 4+ /hpf; Mucus Urine Moderate /lpf; Squamous Epithelial Cell Urine Many /hpf (Few)
[2020-07-18 09:27] LABS: Amphetamine Screen Urine Negative (Negative); Barbiturate Screen Urine Negative (Negative); Benzodiazepines Screen Urine Negative (Negative); Cannabinoid Screen Urine Negative (Negative); Cocaine Screen Urine Negative (Negative); Methadone Screen Urine Negative (Negative); Opiate Screen Urine Positive (Negative); Phencyclidine Screen Urine Negative (Negative)
[2020-07-18] MEDS: ENOXAPARIN 40 MG/0.4 ML SYRINGE SUB-Q (09:30)
--- NOTE | 2020-07-18 09:41 | PC.NURSE ---
SBA up to chair from bed, just cannot get comfortable, am meds given, no emesis, still nauseated, tolerating sips of water, fluids infusing
[2020-07-18] MEDS: traMADol HCL (*CRX) 25 MG TABLET PO ×2 (10:32→18:37)
[2020-07-18] MEDS: METOCLOPRAMIDE HCL INJ 10 MG/2 ML VIAL IV PUSH ×2 (10:32→16:46)
[2020-07-18] MEDS: CYCLOBENZAPRINE HCL 10 MG TABLET PO ×2 (10:33→18:37)
--- NOTE | 2020-07-18 10:37 | PC.NURSE ---
Up to void, only voiding small amounts of concentrated darius urine, fluids infusing, reglan and pain med of flexeril and tramadol given for joint and muscle pains from fall this am
--- NOTE | 2020-07-18 10:54 | PC.NURSE ---
No change in pain, or nausea, moved from bed to chair for comfort, fluids infusing as well as IV antibiotic for new diagnosis of UTI
--- NOTE | 2020-07-18 11:17 | PC.NURSE ---
Cannot get comfortable in chair, returned to bed with assist of 1, joints hurt with movement all over, fluids infusing, no vomiting noted, still pain and nausea complaint
[2020-07-18 12:00] VITALS: BP 118/61; PULSE 87; RESP 18; TEMP 36.4; O2SAT 95
[2020-07-18] MEDS: HYDROcodone/acetaminophen (*CRX) 7.5-325 MG TABLET 1 TAB PO ×2 (12:10→20:16)
--- NOTE | 2020-07-18 12:25 | PC.NURSE ---
Up from bed to bathroom and then back to bed, used walker and stand by assist, no vomiting, tolerating sips of fluids, IV fluids continue to infuse, voiding small amounts of concentrated urine
--- NOTE | 2020-07-18 14:00 | PC.NURSE ---
REsting quietly, no needs
[2020-07-18 16:00] VITALS: BP 112/69; PULSE 74; RESP 18; TEMP 36.6; O2SAT 97
--- NOTE | 2020-07-18 17:53 | PC.NURSE ---
pt amb back to bed from chair, c/o pain in hip, iv running, tray removed
--- NOTE | 2020-07-18 18:48 | PC.NURSE ---
takes sips of water with medication, no n/v, call light in reach
[2020-07-18 20:00] VITALS: BP 125/67; PULSE 69; RESP 18; TEMP 36.3; O2SAT 93
[2020-07-18] MEDS: rOPINIRole HCL 1 MG TABLET 4 MG PO (20:16)
[2020-07-18] MEDS: ALPRAZolam (*CRX) 0.25 MG TABLET PO (20:17)
[2020-07-18] MEDS: NORTRIPTYLINE HCL 25 MG CAPSULE PO (20:17)
--- NOTE | 2020-07-18 21:48 | PC.NURSE ---
pt appears to be asleep in bed, iv running, no s/sx of distress, call light in reach
--- NOTE | 2020-07-18 22:12 | PC.NURSE ---
iv alarm going off, reset, pt has no complaints at this time, rails up, encouraged to drink fluids
--- NOTE | 2020-07-18 23:30 | PC.NURSE ---
Patient resting in bed. No signs of pain or distress are observed. IV site is intact and fluids are infusing per order. Call light is within reach.
[2020-07-19] VITALS: BP 101/62; PULSE 67; RESP 18; TEMP 36.1; O2SAT 95
--- NOTE | 2020-07-19 00:50 | PC.NURSE ---
Patient ambulated to bathroom with stand by assist, gait is steady. She denies pain or nausea at this time.
--- NOTE | 2020-07-19 02:12 | PC.NURSE ---
Patient resting on bed. No signs of pain, distress, or n/v are observed. IV fluids continue to infuse. call light is within reach.
--- NOTE | 2020-07-19 03:25 | PC.NURSE ---
IV pump alarming. Prototype Technician in to reset pump. IV site is intact. Patient denies nausea at this time. Patient has call light within reach.
[2020-07-19 04:00] VITALS: BP 126/66; PULSE 72; RESP 18; TEMP 36.1; O2SAT 97
--- NOTE | 2020-07-19 04:35 | PC.NURSE ---
Patient ambulated to the bathroom with stand by assist. Patient pushes the IV pole while ambulating, gait is steady. Patient reporting hip pain and requesting PRN pain medication. Patient denies nausea at this time. Patient was provided with a cup of ice and a cup of ice water per her request. Patient is tolerating clear liquids well.
[2020-07-19] MEDS: HYDROcodone/acetaminophen (*CRX) 7.5-325 MG TABLET 1 TAB PO ×2 (04:42→14:46)
[2020-07-19] MEDS: LEVOTHYROXINE SODIUM 100 MCG, LEVOTHYROXINE SODIUM 25 MCG 125 MCG PO (05:40)
[2020-07-19] MEDS: SODIUM CHLORIDE 0.9% IV 1,000 ML 100 ML IV CONT (05:40)
[2020-07-19 05:52] LABS: Basophils Absolute Auto 0.04 K/mm3 (0.00-0.10); Basophils Percent Auto 0.6 % (0.0-1.0); Eosinophils Absolute Auto 0.14 K/mm3 (0.02-0.50); Eosinophils Percent Auto 2.1 % (1.0-6.0); Hematocrit 39.2 % (35.0-42.0); Hemoglobin 12.5 g/dL (11.7-13.8); Immature Granulocyte Absolute 0.03 K/mm3 (0.00-0.00); Immature Granulocyte Percent A 0.4 % (0.0-0.0); Lymphocytes Absolute Auto 1.62 K/mm3 (1.10-4.50); Lymphocytes Percent Auto 23.8 % (18.0-42.0); Mean Corpuscular HGB Conc 31.9 g/dL (32.0-36.0); Mean Corpuscular Hemoglobin 29.6 pg (27.0-31.0); Mean Corpuscular Volume 92.7 fL (78.0-102.0); Mean Platelet Volume 8.3 fl (9.2-11.8); Monocytes Percent Auto 10.3 % (2.0-11.0); Neutrophils Absolute Auto 4.3 K/mm3 (1.7-7.2); Neutrophils Percent Auto 62.8 % (50.0-70.0); Platelet Count Result 295 K/mm3 (150-420); Red Blood Count 4.23 M/mm3 (4.20-5.40); Red Cell Distribution Width 12.9 % (11.6-14.4); White Blood Count 6.8 K/mm3 (4.8-10.8)
[2020-07-19 06:13] LABS: Lactic Acid Reflex 0.9 mmol/L (0.4-2.0)
[2020-07-19 06:19] LABS: Alanine Aminotransferase 23 U/L (14-59); Albumin Level 2.7 g/dL (3.4-5.0); Alkaline Phosphatase 103 U/L (46-116); Anion Gap 10 mmol/L (8-16); Aspartate Amino Transferase 21 U/L (15-37); Bilirubin,Total 0.4 mg/dL (0.00-1.00); Blood Urea Nitrogen 16 mg/dL (7-18); Carbon Dioxide 26 mmol/L (21-32); Chloride 102 mmol/L (98-108); Estimated CRCL calculation 57 ml/min; Estimated Glomerular Filt Rate 45; Glucose 94 mg/dL (70-99); Osmolality Calculated 287 mOsm/kg (285-295); Sodium 138 mmol/L (136-145); Total Protein 6.6 g/dL (6.4-8.2)
[2020-07-19] MEDS: traMADol HCL (*CRX) 25 MG TABLET PO (07:23)
[2020-07-19] MEDS: CYCLOBENZAPRINE HCL 10 MG TABLET PO (07:23)
[2020-07-19 07:29] VITALS: BP 105/57; PULSE 65; RESP 18; TEMP 35.9; O2SAT 95
--- NOTE | 2020-07-19 07:56 | PC.NURSE ---
Up to void, using walker tolerated well, back to sit on edge of bed for breakfast
--- NOTE | 2020-07-19 07:58 | P.DS_ITS ---
DS: Admitting Diagnosis Admitting Diagnosis Admitting Diagnosis: dehydration intractable vomitting DS: Discharge Diagnosis Discharge Diagnosis (1) Depression: Code(s): F32.9 - Major depressive disorder, single episode, unspecified Status: Acute Assessment and Plan: * Continue home medication (2) Restless leg syndrome: Code(s): G25.81 - Restless legs syndrome Status: Acute Assessment and Plan: * Continue home medication (3) Hypothyroid: Code(s): E03.9 - Hypothyroidism, unspecified Status: Acute Assessment and Plan: * Continue Synthroid 125 MCG's daily (4) Functional bowel disorder: Code(s): K59.9 - Functional intestinal disorder, unspecified Status: Acute Assessment and Plan: * Continue home medication (5) Obesity (BMI 30.0-34.9): Code(s): E66.9 - Obesity, unspecified Status: Acute Assessment and Plan: * Patient educated on healthy lifestyle (6) Nausea vomiting and diarrhea: Code(s): R11.2 - Nausea with vomiting, unspecified; R19.7 - Diarrhea, unspecified Status: Acute Assessment and Plan: * Resolved * Possibly gastroenteritis * Continue Zofran * We will hydrate patient (7) Black-out (not amnesia): Code(s): R55 - Syncope and collapse Status: Acute Assessment and Plan: * Possibly secondary to dehydration versus UTI * Patient has not had any episodes since admission * CT of the he no new infarcts * Troponin negative * EKG sinus rhythm with a heart rate of 96 * Patient denies any lightheadedness, dizziness, visual disturbance, headache, chest pains, shortness of breath or palpitation (8) Dehydration: Code(s): E86.0 - Dehydration Status: Acute Assessment and Plan: * Possibly secondary to nausea and vomiting * Continue IV hydration (9) CARMEN (acute kidney injury): Code(s): N17.9 - Acute kidney failure, unspecified Status: Acute Assessment and Plan: * Possibly secondary to dehydration improved * Creatinine baseline 1.0 near baseline (10) UTI (urinary tract infection): Code(s): N39.0 - Urinary tract infection, site not specified Status: Acute Assessment and Plan: * Patient UA indicates nitrite with leukocytes and bacteria * UA culture and sensitivity pending * Patient will discharge on Levaquin x10 days DS: Summary Time Spent with Patient Time attestation: Total time spent providing and/or coordinating discharge services:60 Exam Narrative: Exam Narrative: GENERAL: This is a well-nourished, well-developed patient, in no apparent distress. HEAD: normocephalic, atraumatic. EYES: PERRL. Sclera clear/white. Vision is grossly intact. EARS: External ears normal, auditory canals clear and without drainage, TMs normal without perforation. Hearing grossly intact. NOSE: External nose normal with no obvious nasal discharge, nares without redness, no rhinorrhea. THROAT: Mucous membranes moist, posterior pharynx clear. NECK: Neck supple, non-tender without lymphadenopathy, masses or thyromegaly. CARDIOVASCULAR: Regular rate and rhythm without murmurs, gallops, or rubs. RESPIRATORY: Clear to auscultation. Breath sounds equal bilaterally. No wheezes, rales, or rhonchi. GASTROINTESTINAL: Abdomen soft, non-tender, nondistended. Bowel sounds are active. No hepato-splenomegaly, or palpable masses. No guarding. SKIN: warm, intact with no suspicious lesions or rash, good texture and turgor. NEURO: awake, alert, and oriented
--- NOTE | 2020-07-19 07:58 | PM.DS ---
DS: Admitting Diagnosis Admitting Diagnosis Admitting Diagnosis: dehydration intractable vomitting DS: Discharge Diagnosis Discharge Diagnosis (1) Depression: Code(s): F32.9 - Major depressive disorder, single episode, unspecified Status: Acute Assessment and Plan: Continue home medication (2) Restless leg syndrome: Code(s): G25.81 - Restless legs syndrome Status: Acute Assessment and Plan: Continue home medication (3) Hypothyroid: Code(s): E03.9 - Hypothyroidism, unspecified Status: Acute Assessment and Plan: Continue Synthroid 125 MCG's daily (4) Functional bowel disorder: Code(s): K59.9 - Functional intestinal disorder, unspecified Status: Acute Assessment and Plan: Continue home medication (5) Obesity (BMI 30.0-34.9): Code(s): E66.9 - Obesity, unspecified Status: Acute Assessment and Plan: Patient educated on healthy lifestyle (6) Nausea vomiting and diarrhea: Code(s): R11.2 - Nausea with vomiting, unspecified; R19.7 - Diarrhea, unspecified Status: Acute Assessment and Plan: Resolved Possibly gastroenteritis Continue Zofran We will hydrate patient (7) Black-out (not amnesia): Code(s): R55 - Syncope and collapse Status: Acute Assessment and Plan: Possibly secondary to dehydration versus UTI Patient has not had any episodes since admission CT of the he no new infarcts Troponin negative EKG sinus rhythm with a heart rate of 96 Patient denies any lightheadedness, dizziness, visual disturbance, headache, chest pains, shortness of breath or palpitation (8) Dehydration: Code(s): E86.0 - Dehydration Status: Acute Assessment and Plan: Possibly secondary to nausea and vomiting Continue IV hydration (9) CARMEN (acute kidney injury): Code(s): N17.9 - Acute kidney failure, unspecified Status: Acute Assessment and Plan: Possibly secondary to dehydration improved Creatinine baseline 1.0 near baseline (10) UTI (urinary tract infection): Code(s): N39.0 - Urinary tract infection, site not specified Status: Acute Assessment and Plan: Patient UA indicates nitrite with leukocytes and bacteria UA culture and sensitivity pending Patient will discharge on Levaquin x10 days DS: Summary Time Spent with Patient Time attestation: Total time spent providing and/or coordinating discharge services:60 Exam Narrative: Exam Narrative: GENERAL: This is a well-nourished, well-developed patient, in no apparent distress. HEAD: normocephalic, atraumatic. EYES: PERRL. Sclera clear/white. Vision is grossly intact. EARS: External ears normal, auditory canals clear and without drainage, TMs normal without perforation. Hearing grossly intact. NOSE: External nose normal with no obvious nasal discharge, nares without redness, no rhinorrhea. THROAT: Mucous membranes moist, posterior pharynx clear. NECK: Neck supple, non-tender without lymphadenopathy, masses or thyromegaly. CARDIOVASCULAR: Regular rate and rhythm without murmurs, gallops, or rubs. RESPIRATORY: Clear to auscultation. Breath sounds equal bilaterally. No wheezes, rales, or rhonchi. GASTROINTESTINAL: Abdomen soft, non-tender, nondistended. Bowel sounds are active. No hepato-splenomegaly, or palpable masses. No guarding. SKIN: warm, intact with no suspicious lesions or rash, good texture and turgor. NEURO: awake, alert, and oriented to person, place and time. There were no obvious focal neurologic abnormalities. Steady gait EXTREMITIES: Normal range of motion. No edema. No calf tenderness. Negative Homans sign bilaterally. Left leg tenderness in the upper thigh BACK: Nontender without deformity or crepitance. No flank tenderness. DS: Data Data Completed and Pending Labs on day of discharge: Labs from last 24 hours 07/19/20 07/19/20 07/19/20 05:45 05:45 05:45
--- NOTE | 2020-07-19 08:06 | PC.NURSE ---
Changed mind and will sit in chair for breakfast at this time, voiding well, 300ml noted in hat in bathroom, more yellow today than darius and less cloudy
[2020-07-19] MEDS: VENLAFAXINE HCL XR 75 MG CAP.ER.24H 150 MG PO (08:43)
[2020-07-19] MEDS: SPIRONOLACTONE 25 MG TABLET 100 MG PO (08:44)
[2020-07-19] MEDS: ASPIRIN 81 MG ENTERIC TABLET PO (08:45)
[2020-07-19] MEDS: EZETIMIBE 10 MG TABLET PO (08:45)
[2020-07-19] MEDS: PANTOPRAZOLE SOD SESQUIHYDRATE 20 MG TAB PO (08:45)
[2020-07-19] MEDS: ENOXAPARIN 40 MG/0.4 ML SYRINGE SUB-Q (08:45)
--- NOTE | 2020-07-19 09:52 | PC.NURSE ---
Assisted up to void, used walker and SBA, tolerated well, back to bed at this time, awaiting discharge instructions
--- NOTE | 2020-07-19 12:40 | PC.NURSE ---
Pain medication offered, denies need at this time, no n/v noted,
--- NOTE | 2020-07-19 13:02 | PC.NURSE ---
Up to void, used walker, tolerated well
--- NOTE | 2020-07-20 13:00 | PC.NURSE ---
Pt states she received and understood her discharge instructions. Also states The care was excellent as usual .
== END 2020-07-19 15:40 | disposition home or self-care (01) ==
LOC: CHSED 07:31 → CHS2ND 08:09
PROVIDERS: Emergency Medicine; Admitting Provider Emergency Medicine; Emergency Provider Emergency Medicine; PCP Internal Medicine; Visit Provider Emergency Medicine
DX: E86.0 Dehydration (principal); R55 Syncope and collapse; N17.9 Acute kidney failure, unspecified; N39.0 Urinary tract infection, site not specified; R53.1 Weakness; I10 Essential (primary) hypertension; E03.9 Hypothyroidism, unspecified; G25.81 Restless legs syndrome; K59.9 Functional intestinal disorder, unspecified; M87.9 Osteonecrosis, unspecified; M16.10 Unilateral primary osteoarthritis, unspecified hip; F32.9 Major depressive disorder, single episode, unspecified; Z96.653 Presence of artificial knee joint, bilateral; Z79.899 Other long term (current) drug therapy
CPT/HCPCS: 36415; 70450; 72170; 73552; 80053; 80307; 81001; 82550; 83605; 83690; 83880; 84484; 85025; 87040; 87086; 87088; 93005; 96361; 96365; 96366; 96372; 96374; 96375; 96376; 99284; 99285; A9270; G0378; J1650; J1885; J1956; J2405; J2765; J7030

== ENCOUNTER 2020-08-02 12:22 | Outpatient (CLI) | payer MEDICARE, SELFPAY ==
--- NOTE | ~2020-08-02 | MM_ITS ---
EXAMINATION: MM screening [facility] BI w [place] HISTORY: Screening mammogram TECHNIQUE: Craniocaudal and mediolateral oblique 3-D tomosynthesis images were obtained and synthetic 2-D images were generated. CAD analysis was submitted and interpreted. COMPARISON: 07/03/2019, 06/29/2018, 06/08/2017 BREAST PARENCHYMAL COMPOSITION: There are scattered areas of fibroglandular density. FINDINGS: There is no evidence of suspicious mass, calcification, or architectural distortion to sugg est malignancy in either breast. There has been no suspicious interval change. IMPRESSION: 1. No mammographic evidence of malignancy. 2. Recommend routine screening mammography in one year. BI-RADS Category 1: Negative Reviewed, dictated and finalized at location A. UP MECHANIC AUTOMATIC LINE
== END 2020-08-02 12:23 | disposition home or self-care (01) ==
LOC: CHSIMG 12:23
PROVIDERS: PCP Internal Medicine; Visit Provider Internal Medicine
DX: Z12.31 Encounter for screening mammogram for malignant neoplasm of breast (principal)
CPT/HCPCS: 77063; 77067

== ENCOUNTER 2020-08-15 17:02 | Outpatient (RCR) | payer MEDICARE, SELFPAY ==
--- NOTE | 2020-08-22 17:47 | PTOPEVAL ---
Thank you for referring Gilma Mills to [facility].? The patient is scheduled to be seen for therapy? ____x/week for ___ weeks. Please review, sign, date and return this plan of care LUCIO. I agree with and certify that the following plan of care is medically necessary. Referring Physician Date Admitting Provider: Attending Provider: Adele Garcia, GEODETIC SURVEYOR TECHNOLOGIST Referring Provider: *PT Outpatient Evaluation Start: 08/15/20 17:11 Freq: Status: Active Protocol: Document 08/15/20 17:10 [facility] (Rec: 08/15/20 17:50 [facility] [id number]) Therapy Assessment Status Assessment Status Assessment Status Evaluation Outpatient Past Medical History Neurological History Hx Migraine Yes Hx Transient Ischemic Attacks (TIA) Yes: noted on head CT - [place] Hx Other Neurological Disorders Yes: Neuropathy Cardiovascular History Hx Hypercholesterolemia Yes Hx Hypertension Yes Hx Mitral Valve Prolapse Yes Respiratory History Hx Respiratory Disorders No Significant History Gastrointestinal History Hx Gastroesophageal Reflux Disease Yes: takes medication Hx Other Gastrointestinal Disorders Yes: Abdominal pain, nausea, vomiting - 4th occurence since March 2020 Genitourinary History Hx Urinary Tract Infection Yes: 04/2020 Musculoskeletal History Hx Arthritis Yes: generalized Hx Back Pain Yes Hx Fibromyalgia Yes Hx Joint Replacement Yes: Amador Knees Hx Orthopedic Surgery Yes: bilat. knee replacement, R rotator cuff repair, L thumb tendon release Hx Other Musculoskeletal Disorders Yes: Tendon repaired-Rt ankle, Need bilateral hip replacements Hematological History Hx Hematological Disorders No Significant History Endocrine History Hx Hypothyroidism Yes HEENT History Hx Cataracts Yes: Has 1 cataract - Rt eye Hx Sinus Problems Yes Hx Dental Problems Yes: upper and lower dentures - not with patient Integumentary History Hx Eczema Yes Reproductive History Hx Hysterectomy Yes: Total Psychosocial History Hx Anxiety Yes Hx Depression Yes Pain History Has Past Pain Affected Your Daily Life Yes: Fibromyalgia, arthritis in hips Effective Methods of Pain Control Lyrica, Hydrocodone Anesthesia History Hx Anesthesia Reactions No Significant History Other History Hx Other Medical Conditions Yes: restless leg syndrome Evaluation Information Problem Diagnosis
--- NOTE | 2020-09-11 09:48 | PTOPEVAL ---
Thank you for referring Gilma Mills to [facility].? The patient is scheduled to be seen for therapy? ____x/week for ___ weeks. Please review, sign, date and return this plan of care LUCIO. I agree with and certify that the following plan of care is medically necessary. Referring Physician Date Admitting Provider: Attending Provider: Adele Garcia, ACROBATIC RIGGER Referring Provider: *PT Outpatient Evaluation Start: 08/15/20 17:11 Freq: Status: Active Protocol: Document 09/11/20 08:00 [facility] (Rec: 09/11/20 09:11 [facility] [id number]) Therapy Assessment Status Assessment Status Assessment Status Re-evaluation Outpatient Past Medical History Neurological History Hx Migraine Yes Hx Transient Ischemic Attacks (TIA) Yes: noted on head CT - [place] Hx Other Neurological Disorders Yes: Neuropathy Cardiovascular History Hx Hypercholesterolemia Yes Hx Hypertension Yes Hx Mitral Valve Prolapse Yes Respiratory History Hx Respiratory Disorders No Significant History Gastrointestinal History Hx Gastroesophageal Reflux Disease Yes: takes medication Hx Other Gastrointestinal Disorders Yes: Abdominal pain, nausea, vomiting - 4th occurence since March 2020 Genitourinary History Hx Urinary Tract Infection Yes: 04/2020 Musculoskeletal History Hx Arthritis Yes: generalized Hx Back Pain Yes Hx Fibromyalgia Yes Hx Joint Replacement Yes: Amador Knees Hx Orthopedic Surgery Yes: bilat. knee replacement, R rotator cuff repair, L thumb tendon release Hx Other Musculoskeletal Disorders Yes: Tendon repaired-Rt ankle, Need bilateral hip replacements Hematological History Hx Hematological Disorders No Significant History Endocrine History Hx Hypothyroidism Yes HEENT History Hx Cataracts Yes: Has 1 cataract - Rt eye Hx Sinus Problems Yes Hx Dental Problems Yes: upper and lower dentures - not with patient Integumentary History Hx Eczema Yes Reproductive History Hx Hysterectomy Yes: Total Psychosocial History Hx Anxiety Yes Hx Depression Yes Pain History Has Past Pain Affected Your Daily Life Yes: Fibromyalgia, arthritis in hips Effective Methods of Pain Control Lyrica, Hydrocodone Anesthesia History Hx Anesthesia Reactions No Significant History Other History Hx Other Medical Conditions Yes: restless leg syndrome Pain Assessment Timing of Pain Assessment Timing o
--- NOTE | 2020-09-24 10:29 | PCPTNOTE ---
09/24/20 Mrs. Mills presents to therapy 6 weeks post op ALEXUS this date. She presents without pain prior to therapy beginning this date. She has progressed to ambulation with a cane. She does complain of R knee pain at times with increased exercise and bending of the R knee. During her time in therapy thus far, patient has completed gait training exercises to progress from walker to cane, A/PROM exercises of the L hip, and open and closed chain strengthening exercises of the L hip. Thank you for allowing me to participate in Mrs. Mills's rehab. If you have any further questions or concerns, please feel free to contact me at our office any time Nathanael Solis, DPT [phone]
--- NOTE | 2020-10-04 09:11 | PTOPEVAL ---
Thank you for referring Gilma Mills to [facility].? The patient is scheduled to be seen for therapy? ____x/week for ___ weeks. Please review, sign, date and return this plan of care LUCIO. I agree with and certify that the following plan of care is medically necessary. Referring Physician Date Admitting Provider: Attending Provider: Adele Garcia, SIDE PANEL PADDER Referring Provider: *PT Outpatient Evaluation Start: 08/15/20 17:11 Freq: Status: Active Protocol: Document 10/04/20 08:15 [facility] (Rec: 10/04/20 09:09 [facility] [id number]) Therapy Assessment Status Assessment Status Assessment Status Re-evaluation Outpatient Past Medical History Neurological History Hx Migraine Yes Hx Transient Ischemic Attacks (TIA) Yes: noted on head CT - [place] Hx Other Neurological Disorders Yes: Neuropathy Cardiovascular History Hx Hypercholesterolemia Yes Hx Hypertension Yes Hx Mitral Valve Prolapse Yes Respiratory History Hx Respiratory Disorders No Significant History Gastrointestinal History Hx Gastroesophageal Reflux Disease Yes: takes medication Hx Other Gastrointestinal Disorders Yes: Abdominal pain, nausea, vomiting - 4th occurence since March 2020 Genitourinary History Hx Urinary Tract Infection Yes: 04/2020 Musculoskeletal History Hx Arthritis Yes: generalized Hx Back Pain Yes Hx Fibromyalgia Yes Hx Joint Replacement Yes: Amador Knees Hx Orthopedic Surgery Yes: bilat. knee replacement, R rotator cuff repair, L thumb tendon release Hx Other Musculoskeletal Disorders Yes: Tendon repaired-Rt ankle, Need bilateral hip replacements Hematological History Hx Hematological Disorders No Significant History Endocrine History Hx Hypothyroidism Yes HEENT History Hx Cataracts Yes: Has 1 cataract - Rt eye Hx Sinus Problems Yes Hx Dental Problems Yes: upper and lower dentures - not with patient Integumentary History Hx Eczema Yes Reproductive History Hx Hysterectomy Yes: Total Psychosocial History Hx Anxiety Yes Hx Depression Yes Pain History Has Past Pain Affected Your Daily Life Yes: Fibromyalgia, arthritis in hips Effective Methods of Pain Control Lyrica, Hydrocodone Anesthesia History Hx Anesthesia Reactions No Significant History Other History Hx Other Medical Conditions Yes: restless leg syndrome Evaluation Information Problem Diagnosis
== END 2020-11-01 10:16 | disposition home or self-care (01) ==
LOC: CHSPT 17:02
PROVIDERS: Visit Provider Nurse Practitioner Family
DX: M16.12 Unilateral primary osteoarthritis, left hip (principal); Z96.642 Presence of left artificial hip joint
CPT/HCPCS: 97110; 97161; 97530

== ENCOUNTER 2020-09-08 08:25 | Outpatient (CLI) | payer MEDICARE, SELFPAY ==
[2020-09-08 09:03] LABS: BNP 49.1 pg/mL (0-100)
[2020-09-08 09:33] LABS: Alanine Aminotransferase 21 U/L (14-59); Albumin Level 3.3 g/dL (3.4-5.0); Alkaline Phosphatase 122 U/L (46-116); Anion Gap 7 mmol/L (8-16); Aspartate Amino Transferase 23 U/L (15-37); Bilirubin,Total 0.2 mg/dL (0.00-1.00); Blood Urea Nitrogen 13 mg/dL (7-18); Calcium 9.9 mg/dL (8.5-10.1); Carbon Dioxide 30 mmol/L (21-32); Chloride 103 mmol/L (98-108); Cholesterol 195 mg/dL (0-200); Estimated Glomerular Filt Rate 49; Glucose 98 mg/dL (70-99); HDL Direct 32 mg/dL (40-60); LDL Cholesterol Calculated 116 mg/dL (<130); Osmolality Calculated 290 mOsm/kg (285-295); Sodium 140 mmol/L (136-145); Total Protein 6.8 g/dL (6.4-8.2); Triglycerides 233 mg/dL (0-150)
== END 2020-09-08 08:26 | disposition home or self-care (01) ==
LOC: CHSLAB 08:29
PROVIDERS: PCP Internal Medicine
DX: I25.2 Old myocardial infarction (principal); R06.02 Shortness of breath
CPT/HCPCS: 36415; 80053; 80061; 83880

== ENCOUNTER 2020-09-23 09:09 | Outpatient (CLI) | payer MEDICARE, SELFPAY ==
[2020-09-24 19:06] LABS: SARS-CoV-2 RNA PCR Negative
== END 2020-09-23 09:10 | disposition home or self-care (01) ==
PROVIDERS: PCP Internal Medicine; Visit Provider Family Medicine
DX: Z01.812 Encounter for preprocedural laboratory examination (principal); Z20.822 Contact with and (suspected) exposure to COVID-19
CPT/HCPCS: C9803; U0003

== ENCOUNTER 2020-11-26 10:53 | Outpatient (RCR) | payer MEDICARE, SELFPAY ==
--- NOTE | 2020-11-26 11:52 | PTOPEVAL ---
Thank you for referring Gilma Mills to [facility].? The patient is scheduled to be seen for therapy? ___2_x/week for 12 visits. Please review, sign, date and return this plan of care LUCIO. I agree with and certify that the following plan of care is medically necessary. Referring Physician Date Admitting Provider: Attending Provider: Adele Garcia, HAND CULTIVATOR Referring Provider: *PT Outpatient Evaluation Start: 11/26/20 11:13 Freq: Status: Active Protocol: Document 11/26/20 11:14 [facility] (Rec: 11/26/20 11:51 [facility] [id number]) Therapy Assessment Status Assessment Status Assessment Status Evaluation Outpatient Past Medical History Neurological History Hx Migraine Yes Hx Transient Ischemic Attacks (TIA) Yes: noted on head CT - [place] Hx Other Neurological Disorders Yes: Neuropathy Cardiovascular History Hx Hypercholesterolemia Yes Hx Hypertension Yes Hx Mitral Valve Prolapse Yes Respiratory History Hx Respiratory Disorders No Significant History Gastrointestinal History Hx Gastroesophageal Reflux Disease Yes: takes medication Hx Other Gastrointestinal Disorders Yes: Abdominal pain, nausea, vomiting - 4th occurence since March 2020 Genitourinary History Hx Urinary Tract Infection Yes: 04/2020 Musculoskeletal History Hx Arthritis Yes: generalized Hx Back Pain Yes Hx Fibromyalgia Yes Hx Joint Replacement Yes: Amador Knees Hx Orthopedic Surgery Yes: bilat. knee replacement, R rotator cuff repair, L thumb tendon release Hx Other Musculoskeletal Disorders Yes: Tendon repaired-Rt ankle, Need bilateral hip replacements Hematological History Hx Hematological Disorders No Significant History Endocrine History Hx Hypothyroidism Yes HEENT History Hx Cataracts Yes: Has 1 cataract - Rt eye Hx Sinus Problems Yes Hx Dental Problems Yes: upper and lower dentures - not with patient Integumentary History Hx Eczema Yes Reproductive History Hx Hysterectomy Yes: Total Psychosocial History Hx Anxiety Yes Hx Depression Yes Pain History Has Past Pain Affected Your Daily Life Yes: Fibromyalgia, arthritis in hips Effective Methods of Pain Control Lyrica, Hydrocodone Anesthesia History Hx Anesthesia Reactions No Significant History Other History Hx Other Medical Conditions Yes: restless leg syndrome Evaluation Information Problem Diagnosis
--- NOTE | 2020-12-24 07:02 | PTOPEVAL ---
Thank you for referring Gilma Mills to [facility].? The patient is scheduled to be seen for therapy? ____x/week for ___ weeks. Please review, sign, date and return this plan of care LUCIO. I agree with and certify that the following plan of care is medically necessary. Referring Physician Date Admitting Provider: Attending Provider: Adele Garcia, HUMAN SERVICES PROFESSIONAL Referring Provider: *PT Outpatient Evaluation Start: 11/26/20 11:13 Freq: Status: Active Protocol: Document 12/21/20 10:00 [facility] (Rec: 12/21/20 16:07 [facility] [id number]) Therapy Assessment Status Assessment Status Assessment Status Re-evaluation Outpatient Past Medical History Neurological History Hx Migraine Yes Hx Transient Ischemic Attacks (TIA) Yes: noted on head CT - [place] Hx Other Neurological Disorders Yes: Neuropathy Cardiovascular History Hx Hypercholesterolemia Yes Hx Hypertension Yes Hx Mitral Valve Prolapse Yes Respiratory History Hx Respiratory Disorders No Significant History Gastrointestinal History Hx Gastroesophageal Reflux Disease Yes: takes medication Hx Other Gastrointestinal Disorders Yes: Abdominal pain, nausea, vomiting - 4th occurence since March 2020 Genitourinary History Hx Urinary Tract Infection Yes: 04/2020 Musculoskeletal History Hx Arthritis Yes: generalized Hx Back Pain Yes Hx Fibromyalgia Yes Hx Joint Replacement Yes: Amador Knees Hx Orthopedic Surgery Yes: bilat. knee replacement, R rotator cuff repair, L thumb tendon release Hx Other Musculoskeletal Disorders Yes: Tendon repaired-Rt ankle, Need bilateral hip replacements Hematological History Hx Hematological Disorders No Significant History Endocrine History Hx Hypothyroidism Yes HEENT History Hx Cataracts Yes: Has 1 cataract - Rt eye Hx Sinus Problems Yes Hx Dental Problems Yes: upper and lower dentures - not with patient Integumentary History Hx Eczema Yes Reproductive History Hx Hysterectomy Yes: Total Psychosocial History Hx Anxiety Yes Hx Depression Yes Pain History Has Past Pain Affected Your Daily Life Yes: Fibromyalgia, arthritis in hips Effective Methods of Pain Control Lyrica, Hydrocodone Anesthesia History Hx Anesthesia Reactions No Significant History Other History Hx Other Medical Conditions Yes: restless leg syndrome Evaluation Information Problem Diagnosis
== END 2021-01-23 11:23 | disposition home or self-care (01) ==
LOC: CHSPT 10:53
PROVIDERS: Visit Provider Nurse Practitioner Family
DX: M16.11 Unilateral primary osteoarthritis, right hip (principal); Z96.641 Presence of right artificial hip joint; M54.16 Radiculopathy, lumbar region
CPT/HCPCS: 97014; 97110; 97116; 97161; 97530; G0283

== ENCOUNTER 2020-12-08 08:18 | Outpatient (CLI) | payer MEDICARE, SELFPAY ==
[2020-12-08 09:23] LABS: Cholesterol 105 mg/dL (0-200); HDL Direct 37 mg/dL (40-60); LDL Cholesterol Calculated 46 mg/dL (<130); Triglycerides 108 mg/dL (0-150)
== END 2020-12-08 08:19 | disposition home or self-care (01) ==
LOC: CHSLAB 08:23
PROVIDERS: PCP Internal Medicine
DX: E78.5 Hyperlipidemia, unspecified (principal)
CPT/HCPCS: 36415; 80061

== ENCOUNTER 2021-03-22 13:47 | Outpatient (CLI) | payer MEDICARE, OTHER, SELFPAY ==
[2021-03-22 15:15] LABS: SARS-CoV-2 RNA PCR Negative (Negative)
== END 2021-03-22 13:48 | disposition home or self-care (01) ==
LOC: CHSLAB 13:49
PROVIDERS: PCP Internal Medicine; Visit Provider Internal Medicine
DX: Z20.822 Contact with and (suspected) exposure to COVID-19 (principal)
CPT/HCPCS: C9803; U0003; U0005

== ENCOUNTER 2021-04-22 14:16 | Inpatient (IN) | payer MEDICARE, SELFPAY ==
--- NOTE | ~2021-04-22 | CT_ITS ---
EXAMINATION: CT brain wo con INDICATION: Left arm weakness COMPARISON: 07/18/2020 TECHNIQUE: Standard unenhanced head CT. The dose-length product (DLP) was 681.00 mGy-cm. The mA was a djusted according to patient size. Iterative reconstruction technique was employed. FINDINGS: There is no acute intraparenchymal hemorrhage. No evidence of mass lesion. No evidence of a cute infarction. There is an old infarct in the right cerebellum. There is mild periventricular and s ubcortical hypodensity probably related to small vessel ischemic disease. There is mild prominence of the sulci and ventricles related to cerebral atrophy. Intracranial calcified cerebral atherosclerosi s is noted. There are no extra-axial collections. There is no mass effect or midline shift. The orbit s and soft tissues are unremarkable. Small chronic mastoid effusions are again noted. IMPRESSION: 1. Old right cerebellar infarct without acute intracranial abnormality. 2. Age related findings. Reviewed, dictated and finalized at location B.
--- NOTE | ~2021-04-22 | XR_ITS ---
XR chest 1V portable DATE: 04/22/2021 15:27 INDICATION: Dyspnea TECHNIQUE: Portable upright AP chest on 05/02/2021 at 1538 hours COMPARISON: 05/01/2020 portable AP chest FINDINGS: Heart size normal. No hilar or mediastinal enlargement. There appears to be discoid atelect asis or scarring at the right lung base. Otherwise no pulmonary infiltrate or consolidation, pleural effusion or pulmonary vascular congestion or pneumothorax. Osteopenia. IMPRESSION: Discoid atelectasis or scarring at the right lung base; otherwise no apparent active card iopulmonary disease Reviewed, dictated and finalized at location A. IMPRESSION: Discoid atelectasis or scarring at the right lung base; otherwise n o apparent active cardiopulmonary disease
--- NOTE | ~2021-04-22 | MR_ITS ---
EXAMINATION: MR brain/brain stem wo/w con DATE: 04/24/2021 08:43 INDICATION: Left lower extremity weakness. Headache. Blurry vision TECHNIQUE: Magnetic resonance imaging (MRI) of the brain and brainstem was performed without and with 20 mL MultiHance intravenous contrast. Sequences included sagittal and axial T1-weighted FSE, axial diffusion-weighted FS EPI, axial T2*-weighted GRE, axial T2-weighted FLAIR Propeller, and axial T2-we ighted Propeller. Postcontrast sequences included axial and coronal T1-weighted FSE. Apparent diffusi on coefficient (ADC) maps were created. COMPARISON: Brain MRI 05/12/2020, head CT 04/22/2021 FINDINGS: There are old infarcts in the cerebellum bilaterally. There are scattered areas of nonspeci fic increased T2-weighted signal intensity in the cerebral white matter, which is within normal limit s for the patient's age. There is no intracranial hemorrhage, acute infarction, or abnormal intracran ial mass lesion. The ventricles are normal in size. There is mild mucosal thickening in the ethmoid s inuses. The orbits are normal. There are trace bilateral mastoid effusions. IMPRESSION: 1. Old infarcts in the cerebellum bilaterally. Reviewed, dictated and finalized at location A.
--- NOTE | 2021-04-22 14:47 | ECG_ITS ---
Measurements Intervals [place] Rate: 91 P: 53 PA: 187 QRS: 12 QRSD: 106 T: 82 QT: 378 QTc: 466 Interpretive Statements SINUS RHYTHM DELAYED PRECORDIAL R/S TRANSITION CONSIDER INFERIOR INFARCT, AGE INDETERMINATE BASELINE ARTIFACT- II, III, AVL, AVF ABNORMAL ECG Electronically Signed On 04-22-2021 15:42:34 CDT by Manan Davenport D.O.
[2021-04-22 15:00] VITALS: BP 146/67; PULSE 91; RESP 16; TEMP 36.4; O2SAT 96
--- NOTE | 2021-04-22 15:01 | ED.SOB ---
HPI - SOB/Dyspnea General Stated Complaint: Headache/left arm numbness/Sob Time Seen by Provider: 04/22/21 15:02 Source: patient Mode of arrival: wheelchair Limitations: no limitations Related Data Home Medications Medication Instructions Recorded Confirmed alprazolam 0.25 mg PO TID PRN 03/22/20 07/18/20 ezetimibe 10 mg PO DAILY 03/22/20 07/18/20 furosemide 20 mg PO DAILY PRN 03/22/20 07/18/20 nortriptyline 25 mg PO HS 03/22/20 07/18/20 propranolol 160 mg PO DAILY 03/22/20 07/18/20 ropinirole 4 mg PO HS 03/22/20 07/18/20 spironolactone 100 mg PO DAILY 03/22/20 07/18/20 Adult Low Dose Aspirin 81 mg PO DAILY 05/01/20 07/18/20 levothyroxine 125 mcg PO DAILY 05/01/20 07/18/20 hydrocodone-acetaminophen 1 tablet PO TID PRN 06/20/20 07/18/20 venlafaxine 150 mg PO DAILY 06/20/20 07/18/20 Allergies Allergy/AdvReac Type Severity Reaction Status Date / Time adhesive Allergy Intermediate RASH Verified 06/20/20 13:16 alendronate sodium Allergy Mild STOMACH Verified 06/20/20 13:16 PAIN atorvastatin Allergy Unknown Unknown Verified 06/20/20 13:16 tizanidine Allergy Unknown Unknown Verified 06/20/20 13:16 cefdinir [From Omnicef] AdvReac Unknown Rash Verified 06/20/20 13:16 [facility] Past Medical History Medical History Degenerative joint disease (DJD) of hip Functional bowel disorder HTN (hypertension) Hypothyroidism (acquired) Migraine Surgical History Surgical History H/O shoulder surgery History of hysterectomy Hx of total knee arthroplasty Bilateral Family History Family History Mother Breast cancer Father Chronic obstructive pulmonary disease Sibling Breast cancer Multiple sclerosis Social History Social History (Updated 06/21/20 @ 13:12 by Pao Wren DO) Smoking status: Never smoker Second hand tobacco smoke exposure: Yes Alcohol intake: current Drinks per week: 0 Substance use: never Substance use type: does not use Additional living arrangements comments: Lives with Gender identity (if verbalized by the patient): Female Spiritual care concerns: No Discharge Plan Discharge Prescriptions: No Action furosemide 40 mg tablet 20 mg PO DAILY PRN (Reason: swelling) RF: 0 propranolol 160 mg capsule,extended release 24 hr 160 mg PO DAILY RF: 0 spironolactone 100 mg tablet 100 mg PO DAILY RF: 0 nortriptyline 25 mg capsule 25 mg PO HS RF: 0 alprazolam 0.25 mg tablet 0.25 mg PO TID PRN (Reason: Anxiety) RF: 0 ropinirole 2 mg tablet 4 mg PO HS RF: 0 ezetimibe 10 mg tablet 10 mg PO DAILY RF: 0 Adult Low Dose Aspirin 81 mg PO DAILY RF: 0 levothyroxine 125 mcg PO DAILY RF: 0 pantoprazole 20 mg tablet,delayed release (DR/EC) 20 mg PO QAM 42 Days Qty: 42 RF: 0 metoclopramide HCl [Reglan] 5 mg tablet 5 mg PO DAILY 7 Days Qty: 7 RF: 0 levofloxacin 750 mg tablet 750 mg PO DAILY 10 Days Qty: 10 RF: 5 ondansetron HCl [Zofran] 4 mg tablet 4 mg PO Q8H Qty: 14 RF: 0 hydrocodone-acetaminophen 5-325 mg tablet 1 tablet PO TID PRN (Reason: Pain (Scale Score 4-6)) RF: 0 venlafaxine 150 mg Capsule,Extended Release 24hr 150 mg PO DAILY RF: 0 ondansetron HCl [Zofran] 4 mg Tablet 4 mg PO Q8H PRN (Reason: Nausea) 30 Days Qty: 90 RF: 0
--- NOTE | 2021-04-22 15:08 | ED.NEUROSD ---
HPI - Neuro Symptoms/Deficit General Chief Complaint: Weakness Stated Complaint: Headache/left arm numbness/Sob Time Seen by Provider: 04/22/21 15:02 Source: patient Mode of arrival: wheelchair Limitations: no limitations History of Present Illness HPI Narrative: 71-year-old woman with a remote history of CVA comes in today complaining of a headache, left arm heaviness and decreased sensation of the left arm as well of some left eye blurred vision that started at noon today. Patient states that she was standing in the kitchen when it occurred. She states the headache is not like her typical migraines. She denies any recent falls or injuries. She has had no nausea, vomiting, photophobia, recent cough or cold symptoms, abdominal pain, fever, chills or dizziness. Onset (ago): hour(s) (3) Last Observed Normal: 12:00 Timing confirmed by: spouse Location: left arm History of same: Yes Severity: mild Quality: weak and numb Relieving factors: none Exacerbating factors: none Context: gradual onset On Anticoagulants: Yes ( gave 2 adult aspirin at onset) Associated symptoms: headaches Treatments Prior to Arrival: Aspirin Related Data Home Medications Medication Instructions Recorded Confirmed ezetimibe 10 mg PO DAILY 03/22/20 07/18/20 furosemide 20 mg PO DAILY PRN 03/22/20 07/18/20 nortriptyline 25 mg PO HS 03/22/20 07/18/20 ropinirole 4 mg PO HS 03/22/20 07/18/20 spironolactone 100 mg PO DAILY 03/22/20 07/18/20 Adult Low Dose Aspirin 81 mg PO DAILY 05/01/20 07/18/20 levothyroxine 125 mcg PO DAILY 05/01/20 07/18/20 Allergies Allergy/AdvReac Type Severity Reaction Status Date / Time adhesive Allergy Intermediate RASH Verified 06/20/20 13:16 alendronate sodium Allergy Mild STOMACH Verified 06/20/20 13:16 PAIN atorvastatin Allergy Unknown Unknown Verified 06/20/20 13:16 tizanidine Allergy Unknown Unknown Verified 06/20/20 13:16 cefdinir [From Omnicef] AdvReac Unknown Rash Verified 06/20/20 13:16 Review of Systems Review of Systems: All systems reviewed & are unremarkable except as noted in HPI and below Constitutional: Constitutional: Denies chills, Denies fever(s) and Denies weakness Eyes: Eyes: Reports as per HPI, Reports change in vision and Denies photophobia ENT: Denies nasal congestion and Denies sore throat Cardiovascular: Cardiovascular: Denies chest pain and Denies radiating jaw, neck or arm pain Respiratory: Respiratory: Denies cough and Denies dyspnea Gastrointestinal: Gastrointestinal: Denies abdominal pain, Denies diarrhea, Denies nausea and Denies vomiting Genitourinary: Genitourinary: Denies nocturia and Denies dysuria Musculoskeletal: Musculoskeletal: Denies back pain, Denies arthralgias and Denies joint swelling Integumentary/Breasts: Skin/Breast: Denies pruritus, Denies erythema and Denies rash Neurologic: Denies vertigo, Denies dizziness and Denies syncope Hematologic/Lymphatic: Hematologic/Lymphatic: Denies easy bleeding and Denies easy bruising Allergic/Immunologic: Allergic/Immunologic: Denies lip swelling, Denies throat swelling and Denies wheezing PMFSH Past Medical History Medical History (Updated 04/22/21 @ 17:02 by Michele Driscoll MD) CVA (cerebral vascular accident) Degenerative joint disease (DJD) of hip Functional bowel disorder HTN (hypertension) Hypothyroidism (acquired) Migraine Surgical History Surgical History H/O shoulder surgery History of hysterectomy Hx of total knee arthroplasty Bilateral Family History Family History Mother Breast cancer Father Chronic obstructive pulmonary disease Sibling Breast cancer Multiple sclerosis Social History Social History Smoking status: Never smoker Second hand tobacco smoke exposure: Yes Alcohol intake: current Drinks per week: 0
[2021-04-22 15:35] LABS: Basophils Absolute Auto 0.03 K/mm3 (0.00-0.10); Basophils Percent Auto 0.4 % (0.0-1.0); Eosinophils Absolute Auto 0.26 K/mm3 (0.02-0.50); Eosinophils Percent Auto 3.3 % (1.0-6.0); Hematocrit 37.1 % (35.0-42.0); Hemoglobin 10.9 g/dL (11.7-13.8); Immature Granulocyte Absolute 0.02 K/mm3 (0.00-0.00); Immature Granulocyte Percent A 0.3 % (0.0-0.0); Lymphocytes Absolute Auto 1.86 K/mm3 (1.10-4.50); Lymphocytes Percent Auto 23.6 % (18.0-42.0); Mean Corpuscular HGB Conc 29.4 g/dL (32.0-36.0); Mean Corpuscular Hemoglobin 23.9 pg (27.0-31.0); Mean Corpuscular Volume 81.4 fL (78.0-102.0); Mean Platelet Volume 8.1 fl (9.2-11.8); Monocytes Absolute Auto 0.54 K/mm3 (0.10-0.90); Monocytes Percent Auto 6.9 % (2.0-11.0); Neutrophils Absolute Auto 5.2 K/mm3 (1.7-7.2); Neutrophils Percent Auto 65.5 % (50.0-70.0); Platelet Count Result 230 K/mm3 (150-420); Red Blood Count 4.56 M/mm3 (4.20-5.40); Red Cell Distribution Width 17.7 % (11.6-14.4); White Blood Count 7.9 K/mm3 (4.8-10.8)
[2021-04-22 15:50] LABS: Partial Thromboplastin Time 24.5 SEC (23.90-30.70); Prothrombin Time 10.5 Seconds (9.50-12.10)
[2021-04-22 15:59] LABS: Alanine Aminotransferase 22 U/L (14-59); Albumin Level 2.8 g/dL (3.4-5.0); Alkaline Phosphatase 70 U/L (46-116); Anion Gap 8 mmol/L (8-16); Aspartate Amino Transferase 16 U/L (15-37); Bilirubin,Total 0.2 mg/dL (0.00-1.00); Blood Urea Nitrogen 11 mg/dL (7-18); Calcium 8.8 mg/dL (8.5-10.1); Carbon Dioxide 29 mmol/L (21-32); Chloride 106 mmol/L (98-108); Estimated CRCL calculation 69 ml/min; Estimated Glomerular Filt Rate 55; Glucose 156 mg/dL (70-99); Osmolality Calculated 298 mOsm/kg (285-295); Potassium 4.1 mmol/L (3.5-5.1); Sodium 143 mmol/L (136-145); Total Protein 6.6 g/dL (6.4-8.2); Troponin I 4.7 ng/L (0.00-60.4)
--- NOTE | 2021-04-22 16:24 | PC.NURSE ---
REPORT TO PRITI MCCLENDON
--- NOTE | 2021-04-22 16:39 | PC.NURSE ---
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 speech normal
[2021-04-22 16:44] VITALS: BP 114/68; PULSE 74; RESP 18; TEMP 36.6; O2SAT 95
[2021-04-22 17:01] VITALS: BP 116/70; PULSE 76; RESP 16; O2SAT 96
[2021-04-22] MEDS: MORPHINE SULFATE (*CRX) 4 MG/ML INJ (17:58)
[2021-04-22] MEDS: ONDANSETRON INJ 4 MG/2 ML VIAL (17:58)
[2021-04-22 18:20] LABS: SARS-CoV-2 Ag Negative (Negative)
[2021-04-22 18:41] VITALS: BP 111/60; PULSE 71; RESP 16; TEMP 36.1; O2SAT 96
[2021-04-22 20:00] VITALS: BP 115/59; PULSE 71; RESP 16; TEMP 36.8; O2SAT 94
[2021-04-22] MEDS: rOPINIRole HCL 1 MG TABLET 4 MG PO (21:17)
[2021-04-22] MEDS: MORPHINE SULFATE (*CRX) 2 MG/ML INJ IV PUSH (21:18)
[2021-04-22] MEDS: NORTRIPTYLINE HCL 25 MG CAPSULE PO (21:18)
--- NOTE | 2021-04-22 23:55 | ADMGEN ---
This patient, Gilma Mills, was admitted to 2nd Floor Room 201-1. Patient/family oriented to hospital policies and general routines including ID bracelet, bed and alarms, visiting hours, pain management, procedures, bathroom and other care routines, personal items, smoking policy, room service/diet, and visiting hours. Information on how to activate the Rapid Response Team has been discussed. Patient/Family are encouraged to report perceived risks to care and to ask questions if they do not understand what they are told or what they should do.
[2021-04-23] VITALS: BP 124/65; PULSE 77; RESP 16; TEMP 36.4; O2SAT 94
[2021-04-23] MEDS: MORPHINE SULFATE (*CRX) 2 MG/ML INJ IV PUSH ×2 (01:05→09:24)
[2021-04-23 04:00] VITALS: BP 124/65; PULSE 82; TEMP 36.2; O2SAT 95
[2021-04-23 05:45] LABS: Basophils Absolute Auto 0.04 K/mm3 (0.00-0.10); Basophils Percent Auto 0.4 % (0.0-1.0); Eosinophils Absolute Auto 0.39 K/mm3 (0.02-0.50); Eosinophils Percent Auto 3.8 % (1.0-6.0); Hematocrit 40.7 % (35.0-42.0); Hemoglobin 11.7 g/dL (11.7-13.8); Immature Granulocyte Absolute 0.02 K/mm3 (0.00-0.00); Immature Granulocyte Percent A 0.2 % (0.0-0.0); Lymphocytes Percent Auto 27.4 % (18.0-42.0); Mean Corpuscular HGB Conc 28.7 g/dL (32.0-36.0); Mean Corpuscular Hemoglobin 23.7 pg (27.0-31.0); Mean Corpuscular Volume 82.6 fL (78.0-102.0); Monocytes Absolute Auto 0.69 K/mm3 (0.10-0.90); Monocytes Percent Auto 6.8 % (2.0-11.0); Neutrophils Absolute Auto 6.3 K/mm3 (1.7-7.2); Neutrophils Percent Auto 61.4 % (50.0-70.0); Platelet Count Result 313 K/mm3 (150-420); Red Blood Count 4.93 M/mm3 (4.20-5.40); Red Cell Distribution Width 18.1 % (11.6-14.4); White Blood Count 10.2 K/mm3 (4.8-10.8)
[2021-04-23] MEDS: LEVOTHYROXINE SODIUM 25 MCG TABLET PO (05:51)
[2021-04-23] MEDS: LEVOTHYROXINE SODIUM 100 MCG TABLET PO (05:51)
[2021-04-23 06:10] LABS: Alanine Aminotransferase 29 U/L (14-59); Albumin Level 3.1 g/dL (3.4-5.0); Alkaline Phosphatase 76 U/L (46-116); Anion Gap 11 mmol/L (8-16); Aspartate Amino Transferase 18 U/L (15-37); Bilirubin,Total 0.3 mg/dL (0.00-1.00); Blood Urea Nitrogen 10 mg/dL (7-18); Calcium 9.2 mg/dL (8.5-10.1); Carbon Dioxide 28 mmol/L (21-32); Chloride 105 mmol/L (98-108); Estimated CRCL calculation 72 ml/min; Estimated Glomerular Filt Rate 58; Glucose 106 mg/dL (70-99); Osmolality Calculated 297 mOsm/kg (285-295); Potassium 4.3 mmol/L (3.5-5.1); Sodium 144 mmol/L (136-145); Total Protein 7.3 g/dL (6.4-8.2)
--- NOTE | 2021-04-23 07:25 | PC.NURSE ---
Speech contacted for bedside eval, will check schedule and be in today to see her, hospitalist evaluated and diet ordered, kitchen notified
[2021-04-23 08:00] VITALS: BP 118/63; PULSE 94; RESP 18; TEMP 36; O2SAT 94
[2021-04-23] MEDS: EZETIMIBE 10 MG TABLET PO (09:18)
[2021-04-23] MEDS: SPIRONOLACTONE 25 MG TABLET 100 MG PO (09:18)
[2021-04-23] MEDS: ASPIRIN 325 MG ENTERIC TABLET PO (09:18)
[2021-04-23] MEDS: ONDANSETRON HCL ODT 4 MG TABLET PO (09:23)
--- NOTE | 2021-04-23 09:35 | PC.NURSE ---
Headache, 06/23, morphine given, alert and oriented, arm still feeling heavy, no change, does have rom to arm
--- NOTE | 2021-04-23 10:19 | PC.NURSE ---
Resting quietly, no further complaint of headache at this time
[2021-04-23 12:00] VITALS: PULSE 89; RESP 18
--- NOTE | 2021-04-23 12:14 | STIPEVAL ---
Thank you for referring Gilma Mills to [facility]. Patient presents with functional swallowing skills and ST is not warranted at this time. Please review, sign, date and return this LUCIO. Referring Physician Date Admitting Provider: Michele Driscoll MD Attending Provider: Michele Driscoll MD Referring Provider: *ST Inpatient Evaluation Start: 04/23/21 12:05 Freq: Status: Active Protocol: Document 04/23/21 11:40 MJB (Rec: 04/23/21 12:14 [id number]) Therapy Assessment Status Assessment Status Assessment Status Evaluation Pain Assessment Timing of Pain Assessment Timing of Pain Assessment Assessment Self Report Self Report Pain Level 0 Pain Score Pain Score 0: Self Report Bedside Swallow Evaluation General Reports Dysphagia No History of Related Medical Diagnosis CVA Meal Observed Lunch History of Dysphagia No Other Factors Impacting Dysphagia None History of Pneumonia No Intake Method Prior to Swallow Oral Evaluation Diet Prior to Swallow Evaluation Soft and Bite Size, Level 6 Liquid Consistency Prior to Swallow Thin (0) Evaluation Cognition During Swallowing Alert,Attentive Orthodontic/Dental Appliances Full Dentures, Lower,Full Dentures, Upper Consistency Thin 5 mL Method of Presentation Straw Behaviors Observed Apparently Normal Swallow Occurrence of Coughing None Vocal Quality After Swallowing Clear Swallow Palpation Results Good Swallow Initiation,Strong Laryngeal Elevation Pureed Consistency 5 mL Other Swallow Amount cream of chicken soup and jello Method of Presentation Spoon Behaviors Observed Apparently Normal Swallow Occurrence of Coughing None Vocal Quality After Swallowing Clear Swallow Palpation Results Good Swallow Initiation,Strong Laryngeal Elevation Tolerance Tolerance For Swallow No Distress Alertness Awake/Safe Cooperativeness Calm,Cooperative Attention Attentive Awareness of Swallowing Problem Aware,Safe Awareness of Secretions Aware Postural Control Safe Ability to Follow Directions Independent Swallowing Comments Patient was seen at bedside to assess swallowing function per doctor order. Patient presented with WFL in oropharyngeal function throughout po trials. No
--- NOTE | 2021-04-23 12:19 | PC.NURSE ---
Swallow eval done, did well, no restrictions, lunch tray to room
--- NOTE | 2021-04-23 12:23 | PM.IMHP ---
H&P: HPI History of Present Illness Date/Time: 04/23/21 12:23 this is a 71-year-old female who presented to emergency department with complaints of headache, left arm heaviness,decreased sensation to the left arm with left-sided visual disturbance. She does have a history of migraine headaches but notes that this home was different from her previous experience with her migraine headaches. Patient notes that while she was in the kitchen her left arm appeared to be heavier she also experienced decreased sensation to the left arm. She did not notice any thing different with her left leg while she was in the kitchen when this episode occurred vital signs 124/65, 82, 97.1, 95% on room air, WBCs 10.2, hemoglobin 11.7, hematocrit 40.7, platelets 313, sodium 144, potassium 4.3, BUN 10, creatinine 0.95, glucose 106, liver function test within normal limits, Covid negative, chest x-ray and CT unremarkable, EKG sinus rhythm, MRI and echo is currently pending. ED doctor spoke with and she is not a candidate for thrombolysis. Left arm heaviness she denies any visual disturbance or decreased sensation to the left. Patient started on high-dose aspirin she is allergic to atorvastatin Inpatient Disposition Home with self-care possibly tomorrow after MRI and echo <KELLY Peoples - Last Filed: 04/23/21 12:43> Chief Complaint: Left-sided weakness <KELLY Peoples - Last Filed: 04/23/21 12:43> Review of Systems Review of Systems: A 14 organ system Review of Systems was performed and pertinent positives included in the HPI, otherwise remaining ROS is negative. <KELLY Peoples - Last Filed: 04/23/21 12:43> [facility] Past Medical History Medical History: Medical History (Updated 04/22/21 @ 17:02 by Michele Driscoll MD) CVA (cerebral vascular accident) Degenerative joint disease (DJD) of hip Functional bowel disorder HTN (hypertension) Hypothyroidism (acquired) Migraine <KELLY Peoples - Last Filed: 04/23/21 12:43> Surgical History Surgical History: Surgical History H/O shoulder surgery History of hysterectomy Hx of total knee arthroplasty Bilateral <KELLY Peoples - Last Filed: 04/23/21 12:43> Family History Family History: Family History Mother Breast cancer Father Chronic obstructive pulmonary disease Sibling Breast cancer Multiple sclerosis <KELLY Peoples - Last Filed: 04/23/21 12:43> Social History Social History: Social History Smoking status: Never smoker Second hand tobacco smoke exposure: No Alcohol intake: never Drinks per week: 0 Substance use: never Substance use type: does not use Additional living arrangements comments: Lives with Gender identity (if verbalized by the patient): Female Sexual Orientation (if Verbalized by the Patient): Straight or Heterosexual Spiritual care concerns: No <KELLY Peoples - Last Filed: 04/23/21 12:43> Meds Home Medications and Allergies Home medications: Home Medications Medication Instructions Recorded Confirmed Type ezetimibe 10 mg PO DAILY 03/22/20 04/22/21 History furosemide 20 mg PO DAILY PRN 03/22/20 04/22/21 History nortriptyline 25 mg PO HS 03/22/20 04/22/21 History ropinirole 4 mg PO HS 03/22/20 04/22/21 History spironolactone 100 mg PO DAILY 03/22/20 04/22/21 History Adult Low Dose Aspirin 81 mg PO DAILY 05/01/20 04/22/21 History levothyroxine 125 mcg PO DAILY 05/01/20 04/22/21 History ondansetron HCl [Zofran] 4 mg PO Q8H PRN 30 Days #90 tablet 06/22/20 04/22/21 Rx <KELLY Peoples - Last Filed: 04/23/21 12:43> Allergies/Adverse reactions: Allergies Allergy/AdvReac Type Severity Reaction Status Date / Time adhesive Allergy Intermediate RASH Verified
[2021-04-23 13:26] LABS: Add Urine Microscopic? YES; Appearance Urine Sl Cloudy (Clear); Bilirubin Urine Negative (Negative); Blood Urine Negative (Negative); Color Urine Yellow (Yellow); Glucose Urine UA Negative (Negative); Ketones Urine Negative (Negative); Leukocyte Esterase Ur Negative LEU/UL (Negative); Nitrate Urine Positive (Negative); Protein Urine Negative (Negative); Specific Grav Ur >= 1.030 (1.010-1.020); Urobilinogen Urine 0.2 mg/dL (0.2-1.0); pH Urine 5.5 (5.0-8.0)
--- NOTE | 2021-04-23 13:31 | PC.NURSE ---
Echo being done at the bedside
[2021-04-23 13:37] LABS: RBC Urine 0-2 /hpf (0-2); Squamous Epithelial Cell Urine Rare /hpf (Few)
[2021-04-23 13:38] LABS: Bacteria Urine 3+ /hpf
--- NOTE | 2021-04-23 14:29 | PC.NURSE ---
urine results called to hospitalist
--- NOTE | 2021-04-23 14:44 | ECHO_ITS ---
Patient Info Name: Gilma Mills Age: 71 years : 1950 Gender: Female Ht: 70 in Wt: 291 lbs BSA: 2.61 m2 HR: 79 bpm BP: 118 / 63 mmHg Technical Quality: Good Exam Date: 04/23/2021 1:13 PM Exam Location: [facility] Patient Status: Inpatient Admit Date: 04/22/2021 Staff Ordering Physician: Emi MeiP-Kelsey Software Engineer Developer: Giovanni Ramirez RDCS, RT Attending Provider: Michele Driscoll MD Referring Physician: Sigifredo HUNT; Exam Type: CA echo doppler color flow Study Info Indications R53.1 - Weakness Complete two-dimensional, color flow and Doppler transthoracic echocardiogram is performed. History/Risk Factors Hypertension: Yes Dyslipidemia: No Myocardial Infarction (NV): No Obesity: Yes Congestive Heart Failure (CHF): No Cardiomyopathy/LV Systolic Dysfunction: No Diabetes Mellitus: No COPD: No Tobacco Use: Never Cerebrovascular Disease: No Deep Vein Thrombosis (DVT): None Frailty Scale (CSHA): 5: Mildly Frail Cardiac Arrest: No Summary 1. Complete two-dimensional, color flow and Doppler transthoracic echocardiogram is performed. 2. Left ventricular chamber dimension is normal. 3. Left ventricular systolic function is normal, estimated at 60-65%. 4. There is mildly increased left ventricular wall thickness. 5. The left ventricular diastolic function is grade I diastolic dysfunction. 6. E/e' 5 is not elevated. 7. There is trace tricuspid valve regurgitation. Left Ventricle E/e' 5 is not elevated. Left ventricular chamber dimension is normal. Left ventricular systolic function is normal, estimated at 60-65%. There is mildly increased left ventricular wall thickness. The left ventricular diastolic function is grade I diastolic dysfunction. Right Ventricle Right ventricular systolic function is normal based on a normal TAPSE 2.3 cm. Right ventricular chamber dimension is not well visualized. Left Atria Left atrial chamber dimension is normal. Right Atria Right atrial chamber dimension is normal. Aortic Valve The aortic valve is probable trileaflet. There is no aortic valve stenosis. There is no aortic valve regurgitation. Pulmonic Valve There is no pulmonic regurgitation. Mitral Valve There is no mitral valve stenosis. There is no mitral valve regurgitation. Tricuspid Valve There is trace tricuspid valve regurgitation. RVSP is not calculated due to an inadequate TR jet. Pericardium/Pleural There is no pericardial effusion. Inferior Vena Cava Normal inferior vena cava with >50% collapse upon inspiration consistent with normal right atrial pressure, 5 mmHg. Aorta The aortic root size at the sinus of Valsalva is normal. Left Ventricular Outflow Tract Name Value Normal LVOT 2D LVOT Diameter 1.9 cm LVOT Doppler LVOT Peak Velocity 135 cm/s LVOT Peak Gradient 7 mmHg LVOT Mean Gradient 4 mmHg LVOT VTI 27 cm LVOT VTI/AV VTI Ratio 1.0 LV
[2021-04-23 15:53] VITALS: BP 102/66; PULSE 88; RESP 18; TEMP 36.1; O2SAT 95
[2021-04-23 20:00] VITALS: BP 120/76; PULSE 85; RESP 20; TEMP 36.2; O2SAT 96
[2021-04-23] MEDS: rOPINIRole HCL 1 MG TABLET 4 MG PO (20:13)
[2021-04-23] MEDS: ACETAMINOPHEN 325 MG TABLET 650 MG PO (20:13)
[2021-04-23] MEDS: NORTRIPTYLINE HCL 25 MG CAPSULE PO (20:14)
--- NOTE | 2021-04-23 22:15 | PC.NURSE ---
Awake per bed. Reading. Has on complaints. Call spears in reach. Reminded to call with needs.
[2021-04-24] VITALS: BP 123/61; PULSE 96; RESP 20; TEMP 36.2; O2SAT 94
--- NOTE | 2021-04-24 03:01 | PC.NURSE ---
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 States right arm feels heavy.
[2021-04-24 03:06] VITALS: PULSE 96
[2021-04-24] MEDS: ONDANSETRON HCL ODT 4 MG TABLET PO (03:53)
[2021-04-24 04:00] VITALS: BP 123/68; PULSE 89; RESP 20; TEMP 35.9; O2SAT 95
--- NOTE | 2021-04-24 04:14 | PC.NURSE ---
Pt watching TV. Complains of nausea. Zofran PO given at 0350. Call separs in reach. Reminded to call with needs.
--- NOTE | 2021-04-24 05:20 | PC.NURSE ---
Up to BR to void using walker with standby assist. Pt incontinent of urine. Pt dry heaving at times and continues to complain of nausea. Zofran given at 0350. Pt back to bed. Call spears in reach. Reminded to call with needs.
[2021-04-24 05:29] LABS: Hematocrit 36.5 % (35.0-42.0); Hemoglobin 10.9 g/dL (11.7-13.8); Mean Corpuscular HGB Conc 29.9 g/dL (32.0-36.0); Mean Corpuscular Hemoglobin 23.8 pg (27.0-31.0); Mean Corpuscular Volume 79.7 fL (78.0-102.0); Mean Platelet Volume 8.8 fl (9.2-11.8); Platelet Count Result 259 K/mm3 (150-420); Red Blood Count 4.58 M/mm3 (4.20-5.40)
[2021-04-24 05:44] LABS: Alanine Aminotransferase 24 U/L (14-59); Alkaline Phosphatase 67 U/L (46-116); Anion Gap 10 mmol/L (8-16); Aspartate Amino Transferase 16 U/L (15-37); Bilirubin,Total 0.4 mg/dL (0.00-1.00); Blood Urea Nitrogen 10 mg/dL (7-18); Calcium 9.1 mg/dL (8.5-10.1); Carbon Dioxide 28 mmol/L (21-32); Chloride 102 mmol/L (98-108); Estimated CRCL calculation 74 ml/min; Estimated Glomerular Filt Rate 60; Glucose 118 mg/dL (70-99); Osmolality Calculated 290 mOsm/kg (285-295); Sodium 140 mmol/L (136-145); Total Protein 6.7 g/dL (6.4-8.2)
[2021-04-24] MEDS: LEVOTHYROXINE SODIUM 100 MCG TABLET PO (06:05)
[2021-04-24] MEDS: LEVOTHYROXINE SODIUM 25 MCG TABLET PO (06:05)
--- NOTE | 2021-04-24 07:18 | PC.NURSE ---
To imaging for MRI via wheel chair
[2021-04-24 08:00] VITALS: BP 124/75; PULSE 90; RESP 18; TEMP 35.6; O2SAT 95
--- NOTE | 2021-04-24 08:25 | PC.NURSE ---
returned from imaging
--- NOTE | 2021-04-24 08:33 | PC.NURSE ---
nauseated from heat due to going outside for MRI, hospitalist notified, did receive zofran at about 0330
[2021-04-24] MEDS: PROCHLORPERAZINE EDISYLATE 10 MG/2 ML VIAL IV PUSH (09:02)
[2021-04-24] MEDS: ASPIRIN 325 MG ENTERIC TABLET PO (09:02)
[2021-04-24] MEDS: SPIRONOLACTONE 25 MG TABLET 100 MG PO (09:02)
[2021-04-24] MEDS: EZETIMIBE 10 MG TABLET PO (09:02)
--- NOTE | 2021-04-24 09:36 | PM.DS ---
DS: Admitting Diagnosis Admitting Diagnosis Left arm weakness, TIA rule out CVA DS: Discharge Diagnosis Discharge Diagnosis (1) Left arm weakness: Code(s): R29.898 - Other symptoms and signs involving the musculoskeletal system Status: Acute Assessment and Plan: Possible TIA CVA ruled out Possibly secondary to TIA versus TIA versus complicated migraine Patient changed from 81 mg to 325 mg History of CVA Patient allergic to statins CT unremarkable for CVA Chest x-ray unremarkable EKG sinus rhythm Swallow eval normal no modifications needed MRI indicates infarct and echo no significant finding (2) Restless leg syndrome: Code(s): G25.81 - Restless legs syndrome Status: Acute Assessment and Plan: continue Requip (3) Hypothyroid: Code(s): E03.9 - Hypothyroidism, unspecified Status: Acute Assessment and Plan: Continue Synthroid 125 MCG daily (4) HTN (hypertension): Code(s): I10 - Essential (primary) hypertension Status: Acute Assessment and Plan: Blood pressure stable Continue home medication Vital signs as ordered Will adjust medication as needed DS: Summary Hospital Course Reason for hospitalization: Weakness, headache, left arm numbness, shortness of breath Hospital Course: this is a 71-year-old female who presented to emergency department with complaints of headache, left arm heaviness,decreased sensation to the left arm with left-sided visual disturbance. She does have a history of migraine headaches but notes that this home was different from her previous experience with her migraine headaches. Patient notes that while she was in the kitchen her left arm appeared to be heavier she also experienced decreased sensation to the left arm. She did not notice any thing different with her left leg while she was in the kitchen when this episode occurred .patient continues to have heaviness to the left upper extremity. PT OT has been consulted for discharge .CVA has been ruled out for patient her echo was unremarkable MRI indicates old SC .patient did have a little episode of nausea she notes that being outside in the sun going to MRI cause her to be nauseous, medication given. ED doctor spoke with a doctor at [place] and it was determined she is not a candidate for thrombolysis. Today she denies any visual disturbance or decreased sensation to the left. Patient started on high-dose aspirin she is allergic to atorvastatin. The patient denies SOB, CP, palpitation, extremity numbness, lightheadedness, dizziness, constipation, diarrhea, chills, or fever. Patient will discharge home today she agrees with discharge. Time Spent with Patient Time attestation: Total time spent providing and/or coordinating discharge services: Exam Narrative: GENERAL: This is a well-nourished, well-developed patient, in no apparent distress. HEAD: normocephalic, atraumatic. EYES: PERRL. Sclera clear/white. Vision is grossly intact. EARS: External ears normal, auditory canals clear and without drainage, TMs normal without perforation. Hearing grossly intact. NOSE: External nose normal with no obvious nasal discharge, nares without redness, no rhinorrhea. THROAT: Mucous membranes moist, posterior pharynx clear. NECK: Neck supple, non-tender without lymphadenopathy, masses or thyromegaly. CARDIOVASCULAR: Regular rate and rhythm without murmurs, gallops, or rubs. RESPIRATORY: Clear to auscultation. Breath sounds equal bilaterally. No wheezes, rales, or rhonchi. GASTROINTESTINAL: Abdomen soft, non-tender, nondistended. Bowel sounds are active. No hepato-splenomegaly, or palpable masses. No guarding. SKIN: warm, intact with no suspicious lesions or rash, good texture and turgor. NEURO: awake, alert, and oriented to person, place and time. There were no obvious focal neurologic abnormalities. Steady gait EXTREMITIES: Normal range of motion. No edema. No calf tenderness. Negat
[2021-04-24] MEDS: HYDROcodone/acetaminophen (*CRX) 5-325 MG TABLET 1 TAB PO (11:51)
[2021-04-24 12:00] VITALS: PULSE 88; RESP 18
--- NOTE | 2021-04-24 13:35 | PC.NURSE ---
Discharged to home with personal items, no questions or concerns regarding dc instructions, home with
== END 2021-04-24 13:35 | disposition home or self-care (01) | DRG 69 ==
LOC: CHSED 17:02 → CHS2ND 17:43
PROVIDERS: Nurse Practitioner; Admitting Provider Emergency Medicine; Emergency Provider Emergency Medicine; PCP Internal Medicine; Visit Provider Emergency Medicine
DX: G45.9 Transient cerebral ischemic attack, unspecified (principal); M16.10 Unilateral primary osteoarthritis, unspecified hip; Z20.822 Contact with and (suspected) exposure to COVID-19; G43.909 Migraine, unspecified, not intractable, without status migrainosus; I10 Essential (primary) hypertension; K59.9 Functional intestinal disorder, unspecified; E03.9 Hypothyroidism, unspecified; M17.10 Unilateral primary osteoarthritis, unspecified knee; R29.898 Other symptoms and signs involving the musculoskeletal system; G25.81 Restless legs syndrome; Z96.653 Presence of artificial knee joint, bilateral; Z79.82 Long term (current) use of aspirin; Z86.73 Personal history of transient ischemic attack (TIA), and cerebral infarction without residual deficits
CPT/HCPCS: 36415; 70450; 70553; 71045; 80053; 81001; 84484; 85025; 85027; 85610; 85730; 87077; 87086; 87088; 87186; 87426; 92610; 93005; 93306; 97161; 97165; 99285; A9270; A9577; C9803; J0780; J2270; J2405

== ENCOUNTER 2021-07-09 13:43 | Outpatient (RCR) | payer MEDICARE, SELFPAY ==
--- NOTE | 2021-07-09 15:10 | PTOPEVAL ---
Thank you for referring Gilma Mills to [facility].? The patient is scheduled to be seen for therapy? ____x/week for ___ weeks. Please review, sign, date and return this plan of care LUCIO. I agree with and certify that the following plan of care is medically necessary. Referring Physician Date Admitting Provider: Attending Provider: Gustavo So, Referring Provider: *PT Outpatient Evaluation Start: 07/09/21 14:09 Freq: Status: Active Protocol: Document 07/09/21 14:05 [facility] (Rec: 07/09/21 15:05 [facility] [id number]) Therapy Assessment Status Assessment Status Assessment Status Evaluation Outpatient Past Medical History Neurological History Hx Migraine Yes Hx Other Neurological Disorders Yes Cardiovascular History Hx Hypertension Yes Respiratory History Hx Respiratory Disorders No Significant History Gastrointestinal History Hx Gastrointestinal Disorders No Significant History Genitourinary History Hx Genitourinary Disorders No Significant History Musculoskeletal History Hx Arthritis Yes Hx Back Pain Yes Hx Degenerative Disk Disease Yes Hx Fibromyalgia Yes Hx Joint Replacement Yes Hx Orthopedic Surgery Yes Hematological History Hx Blood Transfusions Yes Endocrine History Hx Hypothyroidism Yes HEENT History Hx Sinus Problems Yes Integumentary History Hx Skin Disorders No Significant History Reproductive History Hx Post Menopausal Yes Psychosocial History Hx Psychiatric Disorders No Significant History Pain History Has Past Pain Affected Your Daily Life Yes Anesthesia History Hx Anesthesia Reactions No Significant History Other History Hx Other Medical Conditions Yes: restless leg syndrome Evaluation Information Problem Diagnosis s/p R RTSA Onset 06/24/21 Additional Evaluation Detail quick dash = 59% functionally declined Subjective Information patient reports she had a R Query Text:As Reported By Patient/ reverse total shoulder Family replacement (RTSA) on 06/24/21 . she reports prior to surgery the arm was moving well, but hurt like hell. she reports decreased pain in the shoulder since surgery, but reports she has not been using it much . she reports she never had a sling. she reports she is limited to lifting no more than a 12oz can of
--- NOTE | 2021-08-13 07:56 | PTOPEVAL ---
Thank you for referring Gilma Mills to [facility].? The patient is scheduled to be seen for therapy? ____x/week for ___ weeks. Please review, sign, date and return this plan of care LUCIO. I agree with and certify that the following plan of care is medically necessary. Referring Physician Date Admitting Provider: Attending Provider: Gustavo So, Referring Provider: *PT Outpatient Evaluation Start: 07/09/21 14:09 Freq: Status: Active Protocol: Document 08/05/21 08:25 [facility] (Rec: 08/12/21 13:32 [facility] Filej) Therapy Assessment Status Assessment Status Assessment Status Re-evaluation Outpatient Past Medical History Neurological History Hx Migraine Yes Hx Other Neurological Disorders Yes Cardiovascular History Hx Hypertension Yes Respiratory History Hx Respiratory Disorders No Significant History Gastrointestinal History Hx Gastrointestinal Disorders No Significant History Genitourinary History Hx Genitourinary Disorders No Significant History Musculoskeletal History Hx Arthritis Yes Hx Back Pain Yes Hx Degenerative Disk Disease Yes Hx Fibromyalgia Yes Hx Joint Replacement Yes Hx Orthopedic Surgery Yes Hematological History Hx Blood Transfusions Yes Endocrine History Hx Hypothyroidism Yes HEENT History Hx Sinus Problems Yes Integumentary History Hx Skin Disorders No Significant History Reproductive History Hx Post Menopausal Yes Psychosocial History Hx Psychiatric Disorders No Significant History Pain History Has Past Pain Affected Your Daily Life Yes Anesthesia History Hx Anesthesia Reactions No Significant History Other History Hx Other Medical Conditions Yes: restless leg syndrome Evaluation Information Problem Diagnosis s/p R RTSA Onset 06/24/21 Subjective Information patient reports she feels Query Text:As Reported By Patient/ Good this date. she reports Family she has just had a follow up visit with her surgeon. she reports she has been given a new order from her surgeon to continue skilled PT for 12 more visits. patient reports weakness in the R arm and still difficulty with reaching to shoulder level in sitting. she reports she is on a lifting restriction of a coffee cup at home. treatment perfor
--- NOTE | 2021-08-21 13:48 | PTOPEVAL ---
Thank you for referring Gilma Mills to [facility].? The patient is scheduled to be seen for therapy? ____x/week for ___ weeks. Please review, sign, date and return this plan of care LUCIO. I agree with and certify that the following plan of care is medically necessary. Referring Physician Date Admitting Provider: Attending Provider: Gustavo So, Referring Provider: *PT Outpatient Evaluation Start: 07/09/21 14:09 Freq: Status: Active Protocol: Document 08/21/21 10:00 [facility] (Rec: 08/21/21 13:44 [facility] [id number]) Therapy Assessment Status Assessment Status Assessment Status Progress Outpatient Past Medical History Neurological History Hx Migraine Yes Hx Other Neurological Disorders Yes Cardiovascular History Hx Hypertension Yes Respiratory History Hx Respiratory Disorders No Significant History Gastrointestinal History Hx Gastrointestinal Disorders No Significant History Genitourinary History Hx Genitourinary Disorders No Significant History Musculoskeletal History Hx Arthritis Yes Hx Back Pain Yes Hx Degenerative Disk Disease Yes Hx Fibromyalgia Yes Hx Joint Replacement Yes Hx Orthopedic Surgery Yes Hematological History Hx Blood Transfusions Yes Endocrine History Hx Hypothyroidism Yes HEENT History Hx Sinus Problems Yes Integumentary History Hx Skin Disorders No Significant History Reproductive History Hx Post Menopausal Yes Psychosocial History Hx Psychiatric Disorders No Significant History Pain History Has Past Pain Affected Your Daily Life Yes Anesthesia History Hx Anesthesia Reactions No Significant History Other History Hx Other Medical Conditions Yes: restless leg syndrome Evaluation Information Problem Diagnosis s/p R RTSA Onset 06/24/21 Subjective Information patient reports feeling well Query Text:As Reported By Patient/ this date. she reports no Family pain prior to therapy beginning. she reports she is more sore at the end of her therapy sessions. Pain Assessment Timing of Pain Assessment Timing of Pain Assessment Assessment Pain Scale Pain Scale Used Numeric (1 - 10) Self Report Pain Assessment Right Shoulder(s) Reported Pain Level 0 Pain Score Pain Score 0: Self Report Interventions Used Interventions Used By Clinicians Activity or ADL's,Electrical Stimulation,Exercise,Heat Upper Extremity Range of Motion Scapular/ Shoulder Range of Motion Right Scapular/Shoulder Range of Motion
--- NOTE | 2021-09-04 11:08 | PTOPEVAL ---
Thank you for referring Gilma Mills to [facility].? The patient is scheduled to be seen for therapy? ____x/week for ___ weeks. Please review, sign, date and return this plan of care LUCIO. I agree with and certify that the following plan of care is medically necessary. Referring Physician Date Admitting Provider: Attending Provider: Gustavo So, MD Referring Provider: *PT Outpatient Evaluation Start: 07/09/21 14:09 Freq: Status: Active Protocol: Document 09/04/21 09:00 [facility] (Rec: 09/04/21 11:06 [facility] [id number]) Therapy Assessment Status Assessment Status Assessment Status Re-evaluation Outpatient Past Medical History Neurological History Hx Migraine Yes Hx Other Neurological Disorders Yes Cardiovascular History Hx Hypertension Yes Respiratory History Hx Respiratory Disorders No Significant History Gastrointestinal History Hx Gastrointestinal Disorders No Significant History Genitourinary History Hx Genitourinary Disorders No Significant History Musculoskeletal History Hx Arthritis Yes Hx Back Pain Yes Hx Degenerative Disk Disease Yes Hx Fibromyalgia Yes Hx Joint Replacement Yes Hx Orthopedic Surgery Yes Hematological History Hx Blood Transfusions Yes Endocrine History Hx Hypothyroidism Yes HEENT History Hx Sinus Problems Yes Integumentary History Hx Skin Disorders No Significant History Reproductive History Hx Post Menopausal Yes Psychosocial History Hx Psychiatric Disorders No Significant History Pain History Has Past Pain Affected Your Daily Life Yes Anesthesia History Hx Anesthesia Reactions No Significant History Other History Hx Other Medical Conditions Yes: restless leg syndrome Pain Assessment Timing of Pain Assessment Timing of Pain Assessment Assessment Pain Scale Pain Scale Used Numeric (1 - 10) Self Report Pain Assessment Right Shoulder(s) Reported Pain Level 0 Pain Score Pain Score 0: Self Report Additional Pain Score Comments no pain in the lower back this date. Interventions Used Interventions Used By Clinicians Activity or ADL's,Education, Exercise Upper Extremity Range of Motion Scapular/ Shoulder Range of Motion Right Scapular/Shoulder Range of Motion supine arom R shoulder flex = Comments 130 degrees supine prom R shoulder flex = 135 degrees supine prom R shoulder IR = 55 degrees supine arom R shoulder IR = 50
--- NOTE | 2021-09-18 10:08 | PTOPEVAL ---
Thank you for referring Gilma Mills to [facility].? The patient is scheduled to be seen for therapy? ___1_x/week for 4 visits. Please review, sign, date and return this plan of care LUCIO. I agree with and certify that the following plan of care is medically necessary. Referring Physician Date Admitting Provider: Attending Provider: Gustavo So, Referring Provider: *PT Outpatient Evaluation Start: 07/09/21 14:09 Freq: Status: Active Protocol: Document 09/18/21 09:11 [facility] (Rec: 09/18/21 10:08 [facility] [id number]) Therapy Assessment Status Assessment Status Assessment Status Progress Outpatient Past Medical History Neurological History Hx Migraine Yes Hx Other Neurological Disorders Yes Cardiovascular History Hx Hypertension Yes Respiratory History Hx Respiratory Disorders No Significant History Gastrointestinal History Hx Gastrointestinal Disorders No Significant History Genitourinary History Hx Genitourinary Disorders No Significant History Musculoskeletal History Hx Arthritis Yes Hx Back Pain Yes Hx Degenerative Disk Disease Yes Hx Fibromyalgia Yes Hx Joint Replacement Yes Hx Orthopedic Surgery Yes Hematological History Hx Blood Transfusions Yes Endocrine History Hx Hypothyroidism Yes HEENT History Hx Sinus Problems Yes Integumentary History Hx Skin Disorders No Significant History Reproductive History Hx Post Menopausal Yes Psychosocial History Hx Psychiatric Disorders No Significant History Pain History Has Past Pain Affected Your Daily Life Yes Anesthesia History Hx Anesthesia Reactions No Significant History Other History Hx Other Medical Conditions Yes: restless leg syndrome Evaluation Information Problem Diagnosis s/p right TSA Subjective Information Pt. reports she is noticing Query Text:As Reported By Patient/ that she can now reach higher Family overhead, which she could not do 1 week ago. She notices that she can now reach the top of her head, which she was unabel to complete 1 week ago. She states that feeding herself has gotten easier. She reports that she is still weak, and would like to be able to reach overhead high enough to get into her overhead cabinets at home. Pain Assessment Pain Scale Pain Scale Used Numeric (1 - 10) Se
--- NOTE | 2021-10-09 10:04 | PTOPEVAL ---
Thank you for referring Gilma Mills to [facility].? Please review, sign, date and return this plan of care LUCIO. I agree with and certify that the following plan of care is medically necessary. Referring Physician Date Admitting Provider: Attending Provider: Gustavo So, Referring Provider: *PT Outpatient Evaluation Start: 07/09/21 14:09 Freq: Status: Active Protocol: Document 10/09/21 09:04 [facility] (Rec: 10/09/21 10:03 [facility] [id number]) Therapy Assessment Status Assessment Status Assessment Status Discharge Outpatient Past Medical History Neurological History Hx Migraine Yes Hx Other Neurological Disorders Yes Cardiovascular History Hx Hypertension Yes Respiratory History Hx Respiratory Disorders No Significant History Gastrointestinal History Hx Gastrointestinal Disorders No Significant History Genitourinary History Hx Genitourinary Disorders No Significant History Musculoskeletal History Hx Arthritis Yes Hx Back Pain Yes Hx Degenerative Disk Disease Yes Hx Fibromyalgia Yes Hx Joint Replacement Yes Hx Orthopedic Surgery Yes Hematological History Hx Blood Transfusions Yes Endocrine History Hx Hypothyroidism Yes HEENT History Hx Sinus Problems Yes Integumentary History Hx Skin Disorders No Significant History Reproductive History Hx Post Menopausal Yes Psychosocial History Hx Psychiatric Disorders No Significant History Pain History Has Past Pain Affected Your Daily Life Yes Anesthesia History Hx Anesthesia Reactions No Significant History Other History Hx Other Medical Conditions Yes: restless leg syndrome Evaluation Information Problem Diagnosis s/p right TSA Subjective Information Pt. reports she is pain free Query Text:As Reported By Patient/ at the right shoulder. she is Family able to reach further overhead. She still notes weakness, but states that she will continue to exercise to improve strength. She reports that she is ready for discharge at this time. Pain Assessment Timing of Pain Assessment Timing of Pain Assessment Pre-Treatment Self Report Self Report Pain Level 0 Pain Score Pain Score 0: Self Report Upper Extremity Range of Motion General Upper Extremity Range of Motion Gross Upper Extremity Range of Motion -PROM right shoulder flexion Comments 132 degrees -AROM right shoulder flexion
== END 2021-10-09 23:59 | disposition home or self-care (01) ==
LOC: CHSPT 13:43
PROVIDERS: PCP Internal Medicine; Visit Provider Orthopaedic Surgery
DX: Z96.611 Presence of right artificial shoulder joint (principal)
CPT/HCPCS: 97014; 97110; 97140; 97161; 97530; G0283

== ENCOUNTER 2021-08-05 07:45 | Outpatient (CLI) | payer MEDICARE, SELFPAY ==
--- NOTE | ~2021-08-05 | MM_ITS ---
EXAMINATION: MM screening jf BI w linnette HISTORY: Screening mammogram, family history of breast cancer in her mother and sister. TECHNIQUE: Craniocaudal and mediolateral oblique 3-D tomosynthesis images were obtained and synthetic 2-D images were generated. CAD analysis was submitted and interpreted. COMPARISON: 08/02/2020, 07/03/2019 BREAST PARENCHYMAL COMPOSITION: There are scattered areas of fibroglandular density. FINDINGS: There is no evidence of suspicious mass, calcification, or architectural distortion to sugg est malignancy in either breast. There has been no suspicious interval change. IMPRESSION: 1. No mammographic evidence of malignancy. 2. Recommend routine screening mammography in one year. BI-RADS Category 1: Negative Reviewed, dictated and finalized at location A. ERIES MANAGER
== END 2021-08-05 07:46 | disposition home or self-care (01) ==
LOC: CHSIMG 07:46
PROVIDERS: PCP Internal Medicine; Visit Provider Internal Medicine
DX: Z12.31 Encounter for screening mammogram for malignant neoplasm of breast (principal)
CPT/HCPCS: 77063; 77067

== ENCOUNTER 2021-11-15 08:15 | Outpatient (CLI) | payer MEDICARE, SELFPAY ==
[2021-11-15 10:02] LABS: SARS-CoV-2 RNA PCR Negative (Negative)
== END 2021-11-15 08:16 | disposition home or self-care (01) ==
LOC: CHSLAB 08:20
PROVIDERS: PCP Internal Medicine; Visit Provider Family Medicine
DX: Z01.818 Encounter for other preprocedural examination (principal); Z20.822 Contact with and (suspected) exposure to COVID-19
CPT/HCPCS: C9803; U0003; U0005

== ENCOUNTER 2022-03-07 08:54 | Outpatient (RCR) | payer MEDICARE, SELFPAY ==
--- NOTE | 2022-03-07 12:15 | PTOPEVAL ---
Thank you for referring Gilma Mills to [facility].? The patient is scheduled to be seen for therapy? 2x/week for 12 visits. Please review, sign, date and return this plan of care LUCIO. I agree with and certify that the following plan of care is medically necessary. Referring Physician Date Admitting Provider: Attending Provider: AN ARCHULETA Referring Provider: *PT Outpatient Evaluation Start: 03/07/22 07:29 Freq: Status: Active Protocol: Document 03/07/22 08:52 [facility] (Rec: 03/07/22 12:08 [facility] [id number]) Therapy Assessment Status Assessment Status Assessment Status Evaluation Outpatient Past Medical History Neurological History Hx Migraine Yes Hx Other Neurological Disorders Yes Cardiovascular History Hx Hypertension Yes Respiratory History Hx Respiratory Disorders No Significant History Gastrointestinal History Hx Gastrointestinal Disorders No Significant History Genitourinary History Hx Genitourinary Disorders No Significant History Musculoskeletal History Hx Arthritis Yes Hx Back Pain Yes Hx Degenerative Disk Disease Yes Hx Fibromyalgia Yes Hx Joint Replacement Yes Hx Orthopedic Surgery Yes Hematological History Hx Blood Transfusions Yes Endocrine History Hx Hypothyroidism Yes HEENT History Hx Sinus Problems Yes Integumentary History Hx Skin Disorders No Significant History Reproductive History Hx Post Menopausal Yes Psychosocial History Hx Psychiatric Disorders No Significant History Pain History Has Past Pain Affected Your Daily Life Yes Anesthesia History Hx Anesthesia Reactions No Significant History Other History Hx Other Medical Conditions Yes: restless leg syndrome Evaluation Information Problem Diagnosis Lumbar pain Onset 11/18/2021 Subjective Information Pt reports she had a spinal Query Text:As Reported By Patient/ fusion on November 18, 2021 from Family L3-S1. Her pain has greatly improved since surgery, but she still experiences paresthesia into her bilateral LE. On R leg, symptoms go down to the medial knee and toes, and on the L leg only the foot. She also notes continued sensations of weakness and is lacking some confidence with her balance, as she has been using an SPC for added sense of secu
--- NOTE | 2022-04-11 14:52 | PTOPEVAL ---
Thank you for referring Gilma Mills to [facility].? The patient is scheduled to be seen for therapy? 1x/week for 4 weeks. Please review, sign, date and return this plan of care LUCIO. I agree with and certify that the following plan of care is medically necessary. Referring Physician Date Admitting Provider: Attending Provider: AN ARCHULETA Referring Provider: *PT Outpatient Evaluation Start: 03/07/22 07:29 Freq: Status: Active Protocol: Document 04/11/22 13:58 [facility] (Rec: 04/11/22 14:52 [facility] [id number]) Therapy Assessment Status Assessment Status Assessment Status Progress Outpatient Past Medical History Neurological History Hx Migraine Yes Hx Other Neurological Disorders Yes Cardiovascular History Hx Hypertension Yes Respiratory History Hx Respiratory Disorders No Significant History Gastrointestinal History Hx Gastrointestinal Disorders No Significant History Genitourinary History Hx Genitourinary Disorders No Significant History Musculoskeletal History Hx Arthritis Yes Hx Back Pain Yes Hx Degenerative Disk Disease Yes Hx Fibromyalgia Yes Hx Joint Replacement Yes Hx Orthopedic Surgery Yes Hematological History Hx Blood Transfusions Yes Endocrine History Hx Hypothyroidism Yes HEENT History Hx Sinus Problems Yes Integumentary History Hx Skin Disorders No Significant History Reproductive History Hx Post Menopausal Yes Psychosocial History Hx Psychiatric Disorders No Significant History Pain History Has Past Pain Affected Your Daily Life Yes Anesthesia History Hx Anesthesia Reactions No Significant History Other History Hx Other Medical Conditions Yes: restless leg syndrome Evaluation Information Problem Diagnosis Lumbar pain Onset 11/18/2021 Subjective Information Pt reports that her back pain Query Text:As Reported By Patient/ is not too bad today. This is Family improving over time however she had a near fall the other day when walking down her ramp at home. She does not note much difficulty with her balance with other household activities, however, she has occasional difficulty when trying to navigate around her dog. Pain Assessment Timing of Pain Assessment Timing of Pain Assessment Pre-Treatment Pain Scale Pain Scale Used Numeric (1 - 10) Self Report Pain Assessment B
== END 2022-05-07 14:16 | disposition home or self-care (01) ==
LOC: CHSPT 08:54
PROVIDERS: PCP Internal Medicine
DX: M54.50 Low back pain, unspecified (principal)
CPT/HCPCS: 97014; 97110; 97112; 97161; G0283

== ENCOUNTER 2022-08-11 08:31 | Outpatient (CLI) | payer MEDICARE, SELFPAY ==
--- NOTE | ~2022-08-11 | MM_ITS ---
EXAMINATION: MM screening jf BI w linnette HISTORY: Screening mammogram, family history of breast cancer in her mother. TECHNIQUE: Craniocaudal and mediolateral oblique 3-D tomosynthesis images were obtained and synthetic 2-D images were generated. CAD analysis was submitted and interpreted. COMPARISON: 08/05/2021, 08/02/2020, 07/11/2019 BREAST PARENCHYMAL COMPOSITION: There are scattered areas of fibroglandular density. FINDINGS: No suspicious mass, calcification, or architectural distortion are identified in either sterling ast to suggest malignancy. There has been no suspicious interval change. IMPRESSION: 1. No mammographic evidence of malignancy. 2. Recommend routine screening mammography in one year. BI-RADS Category 1: Negative Reviewed, dictated and finalized at location A. CAL SCIENTIST
== END 2022-08-11 08:32 | disposition home or self-care (01) ==
LOC: CHSIMG 08:32
PROVIDERS: PCP Internal Medicine; Visit Provider Internal Medicine
DX: Z12.31 Encounter for screening mammogram for malignant neoplasm of breast (principal)
CPT/HCPCS: 77063; 77067

== ENCOUNTER 2022-08-12 11:52 | Outpatient (CLI) | payer MEDICARE, SELFPAY ==
[2022-08-12 12:54] LABS: Influenza A QL RT-PCR Negative (Negative); Influenza B QL RT-PCR Negative (Negative); SARS-CoV-2 RNA PCR Positive (Negative)
== END 2022-08-12 11:53 | disposition home or self-care (01) ==
LOC: CHSLAB 11:56
PROVIDERS: PCP Internal Medicine; Visit Provider Internal Medicine
DX: U07.1 COVID-19 (principal); J06.9 Acute upper respiratory infection, unspecified
CPT/HCPCS: 87636

== ENCOUNTER 2022-09-01 11:15 | Outpatient (CLI) | payer MEDICARE, SELFPAY ==
--- NOTE | ~2022-09-01 | US_ITS ---
EXAMINATION: US venous doppler [facility] DATE: 09/01/2022 12:15 INDICATION: Lower limb swelling. TECHNIQUE: Grayscale ultrasound images without and with compression and Doppler ultrasound images of the bilateral lower extremity veins were obtained. COMPARISON: None. FINDINGS: The visualized portions of right common femoral vein, profunda (deep) femoral vein, femoral vein, pop liteal vein, peroneal veins, posterior tibial veins, and greater saphenous vein outflow are patent. The visualized portions of left common femoral vein, profunda femoral vein, femoral vein, popliteal v ein, peroneal veins, posterior tibial veins, and greater saphenous vein outflow are patent. IMPRESSION: 1. No deep venous thrombosis. Reviewed, dictated and finalized at location A. [facility]
[2022-09-01 11:36] LABS: Basophils Absolute Auto 0.05 K/mm3 (0.00-0.10); Basophils Percent Auto 0.8 % (0.0-1.0); Eosinophils Absolute Auto 0.58 K/mm3 (0.02-0.50); Eosinophils Percent Auto 9.1 % (1.0-6.0); Hemoglobin 14.2 g/dL (11.7-13.8); Immature Granulocyte Absolute 0.02 K/mm3 (0.00-0.00); Immature Granulocyte Percent A 0.3 % (0.0-0.0); Lymphocytes Absolute Auto 1.33 K/mm3 (1.10-4.50); Mean Corpuscular Hemoglobin 31.8 pg (27.0-31.0); Mean Corpuscular Volume 96.2 fL (78.0-102.0); Mean Platelet Volume 8.8 fl (9.2-11.8); Monocytes Absolute Auto 0.59 K/mm3 (0.10-0.90); Monocytes Percent Auto 9.3 % (2.0-11.0); Neutrophils Absolute Auto 3.8 K/mm3 (1.7-7.2); Neutrophils Percent Auto 59.5 % (50.0-70.0); Platelet Count Result 234 K/mm3 (150-420); Red Blood Count 4.47 M/mm3 (4.20-5.40); Red Cell Distribution Width 13.3 % (11.6-14.4); White Blood Count 6.3 K/mm3 (4.8-10.8)
[2022-09-01 11:51] LABS: Alanine Aminotransferase 40 U/L (14-59); Albumin Level 3.2 g/dL (3.4-5.0); Alkaline Phosphatase 77 U/L (46-116); Anion Gap 6 mmol/L (8-16); Aspartate Amino Transferase 27 U/L (15-37); Bilirubin,Total 0.4 mg/dL (0.00-1.00); Blood Urea Nitrogen 12 mg/dL (7-18); Calcium 9.8 mg/dL (8.5-10.1); Carbon Dioxide 32 mmol/L (21-32); Chloride 104 mmol/L (98-108); Estimated Glomerular Filt Rate 56; Glucose 63 mg/dL (70-99); Osmolality Calculated 291 mOsm/kg (285-295); Potassium 4.2 mmol/L (3.5-5.1); Sodium 142 mmol/L (136-145); Total Protein 7.1 g/dL (6.4-8.2)
== END 2022-09-01 11:16 | disposition home or self-care (01) ==
LOC: CHSLAB 11:19
PROVIDERS: PCP Internal Medicine; Visit Provider Internal Medicine
DX: M79.89 Other specified soft tissue disorders (principal)
CPT/HCPCS: 36415; 80053; 85025; 93970

== ENCOUNTER 2022-11-04 13:15 | Outpatient (RCR) | payer MEDICARE, SELFPAY ==
--- NOTE | 2022-11-04 14:50 | PTOPEVAL1 ---
Assessment and note entered by Daria Pantoja DPT Evaluation Information Assessment Status Evaluation Diagnosis R knee pain Onset 10/31/22 Subjective Information Patient reports R knee pain that has hurt for years but has noticed that pain is increasing with the last 2-3 weeks being significantly worse. They thought pain was due to hamstring tightness and she underwent hamstring surgery in Aug 2022. Patient reports that she had a R knee placement in 2007 and had a lumbar fusion L1-S3 on November 18 2021. She reports recently her back pain has increased as well. She reports that she gets pain right behind the knee cap and shoots down the leg with some numbness down into the toes. Pain occurs on and off with no known cause. Patient has difficulty sitting, rolling in bed, getting up from a chair and walking. Reported Pain Level Pain Score 5: Self Report Assessment PT Clinical Summary Patient is a 72 year old female who presents to PT with R knee pain. Patient demonstrates postive valgus stress test with tenderness to medial joint consistent with MCL involvement. Patient also demonstrates decreased R knee strength. She has difficulty with rolling in bed, getting up from chair and other house hold activities and would benefit from skilled PT to address impairments and return to PLOF. Plan of Care Interventions Electrical Stimulation,Gait Training,Hot Pack/Cold Pack,Manual Therapy,Neuro Re-education,Patient/ Caregiver Educati,Therapeutic Activities, Therapeutic Exercise,Self-Care/Home Management PT Services Indicated Yes Treatment Frequency and 2x weekly for 12 visits Duration These treatments will address the objective and functional deficits as defined above. The patient will be advanced safely and appropriately in order for the patient to progress towards his/her prior level of function. Additional exercises will be introduced and as well as a comprehensive home exercise program upon discharge, if needed, ?to ensure carryover of functional gains achieved in the clinic. This treatment plan has been reviewed and agreement upon by the patient.
--- NOTE | 2022-11-26 10:04 | PTOPPROG ---
Assessment and note entered by JT File, PT Evaluation Information Assessment Status Progress Diagnosis R knee pain Onset 10/31/22 Subjective Information patient reports she continues to have burning behind the knee cap with walking, squatting, and sit to stands. she reports she continues to have increased pain with walking and standing for increased time. she reports she is unable to walk through the house without increased pain. she reports she has been compliant with her HEP at home. 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 she continues to present with pain at rest, increased pain with knee flexion in closed chain, and weakness of the R LE. she is limited in walking and standing distance/time due to pain. she is progressing towards goals, but still limited due to pain behind the R patella. she was redcued in exercise repetitions for some exercises today due to increased pain in the R knee. she will continue skilled PT for increased knee strength, functional activity performance, pain reduction, and progress towards goal achievement/return to prior level functional activities Plan of Care Interventions Gait Training,Hot Pack/Cold Pack,Manual Therapy, Neuro Re-education,Patient/Caregiver Educati, Therapeutic Activities,Therapeutic Exercise,Self- Care/Home Management PT Services Indicated Yes Treatment Frequency and continue skilled PT 2x weekly for 4 more visits Duration per her initial POC These treatments will address the objective and functional deficits as defined above. The patient will be advanced safely and appropriately in order for the patient to progress towards his/her prior level of function. Additional exercises will be introduced and as well as a comprehensive home exercise program upon discharge, if needed, ?to ensure carryover of functional gains achieved in the clinic. This treatment plan has been reviewed and agreement upon by the patient.
--- NOTE | 2022-12-11 09:46 | PTOPDC ---
Assessment and note entered by JT File, PT Evaluation Information Assessment Status Discharge Diagnosis R knee pain Onset 10/31/22 Subjective Information patient reports she continues to have pain in the R patella that is increased with walking, stairs, and sit to stands. Reported Pain Level Pain Score 1: Self Report Assessment PT Clinical Summary mrs. rueda presents to skilled PT services for her 12th skilled PT visit. as of this date, she has made progress towards goals. however, she continues to present with pain behind the patella of the R knee. she quintanilla improved in sit to stand ability and R knee strength. however, pain is unchanged with activities. she will DC skilled PT this date to an independent HEP and follow up with MD for next steps and potential injection. Plan of Care Interventions Gait Training,Hot Pack/Cold Pack,Manual Therapy, Neuro Re-education,Patient/Caregiver Educati, Therapeutic Activities,Therapeutic Exercise,Self- Care/Home Management PT Services Indicated Yes Treatment Frequency and DC to independent HEP and MD follow up Duration
== END 2022-12-11 13:56 | disposition home or self-care (01) ==
LOC: CHSPT 13:15
PROVIDERS: Visit Provider Nurse Practitioner Family
DX: M25.561 Pain in right knee (principal); Z96.651 Presence of right artificial knee joint
CPT/HCPCS: 97014; 97110; 97140; 97161; 97530; G0283

== ENCOUNTER 2022-11-19 09:46 | Outpatient (CLI) | payer MEDICARE, SELFPAY ==
--- NOTE | ~2022-11-19 | DEXA_ITS ---
Bone Density Report Name: KEEGAN ALVES Age: 72 Sex: Female Ethnicity: White Date of : 1950 Indication: postmenopausal; screening for osteoporosis; height loss; prior fracture; hysterectomy; Referring Provider: Sebastien Sequeira Study: Bone densitometry was performed. Exam Date: November 19, 2022 Accession number: [id number] Bone Density: Region BMD T-score Z-score Classification AP Spine(L1, L2) 0.887 -0.8 1.2 Normal Total Forearm (Right) 0.558 -0.4 1.8 1/3 Forearm (Right) 0.661 -0.5 1.7 UD Forearm (Right) 0.435 -0.1 1.5 World Health Organization criteria for BMD impression classify patients as: Normal (T-score at or above -1.0), Osteopenia (T-score between -1.0 and -2.5), or Osteoporosis (T-score at or below -2.5). Clinical Information Provided by Patient: Have had a previous hip or vertebral fracture Has had a low trauma fracture Has used the following medications: Vitamin D, Calcium, multivitiman Has the following medical conditions: Hysterectomy Patient maximum height was 71 Menopause Age: 49 No regular weight bearing exercise Drinks caffeinated beverages Onset of menses at age 16 Number of children 3 Impression: The patient has normal bone mass. The patient has risk factors, including: previous fracture. Discussion: INCREASED RISK OF FRACTURE DUE TO HISTORY OF FRACTURE. The patient's previous fracture puts the patient at high risk of a future fracture. In untreated patients, the risk of osteoporotic fracture increases approximately two-fold for each 1.0 SD decrease in T-score. Low bone density is not the only risk factor for fracture; also consider factors such as patient's age, frailty or poor health, risk of falling, risk of injury, previous osteoporotic fracture, family history of osteoporosis, cigarette smoking, low body weight, etc. Not everyone with a low trauma fracture has osteoporosis; osteomalacia and other metabolic bone disorders should also be considered. Patients who have osteoporosis should be evaluated for specific diseases and conditions (secondary causes) that may cause or contribute to bone loss and fracture risk. National Osteoporosis Foundation (NOF) recommends pharmacologic intervention for patients with a prior hip or vertebral fracture regardless of BMD T-score. The patient should follow a healthful lifestyle (good nutrition with adequate calcium and vitamin D, and appropriate weight-bearing exercise). Follow-Up: Consider a repeat BMD and Vertebral Fracture Assessment (VFA) exam in 2 years or sooner if medically necessary, to reassess this patient's status. Reported by: Dr. Israel Hall on 11/19/2022 10:27:00 AM. Reviewed, dictated and finalized at location ASandoval RAMIREZ
== END 2022-11-19 09:47 | disposition home or self-care (01) ==
LOC: CHSIMG 09:48
PROVIDERS: PCP Internal Medicine; Visit Provider Internal Medicine
DX: Z78.0 Asymptomatic menopausal state (principal)
CPT/HCPCS: 77080

== ENCOUNTER 2022-12-02 14:36 | Outpatient (CLI) | payer MEDICARE, SELFPAY ==
--- NOTE | ~2022-12-02 | CT_ITS ---
EXAMINATION: CTA chest PE protocol DATE: 12/02/2022 16:48 INDICATION: Shortness of breath. Bilateral lower limb swelling. Elevated d-dimer. TECHNIQUE: Computed tomography (CT) pulmonary angiogram of the chest was performed with 100 mL Omnipa que-350 intravenous contrast. Additional 3D reconstructions utilizing coronal maximum intensity proje ction (MIP) were performed. Automated exposure control and iterative reconstruction technique were em ployed. The dose-length product was 921.98 mGy-cm. COMPARISON: CT dated 12/07/2007 FINDINGS: Excellent contrast opacification of the pulmonary arteries. There is mild streak artifact from dense contrast in the superior vena cava and right atrium. Mild scattered respiratory motion artifact which does not significantly limit evaluation. No pulmonary embolism. Minimal dependent atelectasis in the right lower lobe. Very small region of round atelectasis at the anteroinferior lingula with associat ed architectural distortion. No pneumonia, pulmonary edema, pleural effusion or pneumothorax. Heart s ize is normal. No pericardial effusion. Thoracic aorta is normal in caliber with no dissection. No pa thologically enlarged thoracic lymphadenopathy. Small sliding-type hiatal hernia. There are couple le ft renal cysts the larger incompletely visualized measuring at least 4.0 cm. Mild thoracic levocurvat ure with mild spondylosis. IMPRESSION: 1. No pulmonary embolism or other acute cardiopulmonary disease. 2. Small sliding-type hiatal hernia. Reviewed, dictated and finalized at location A.
--- NOTE | ~2022-12-02 | XR_ITS ---
EXAMINATION: XR chest 2V Exam Date/Time: 12/02/2022 14:57 CDT HISTORY: CHF, TYPE 2 DIABETES,HTN, ELEVATED BP,JO Comparison: 04/22/2021, 03/25/2020. RESULT: Lines, tubes, and devices: Right shoulder arthroplasty.. Lungs and pleura: Mild scattered reticulonodular opacities with senescent change and bibasilar scar/ atelectasis. Cardiomediastinal silhouette: Stable. Other: No acute osseous or upper abdominal finding. IMPRESSION: Mild interstitial edema and/or respiratory bronchiolitis. Reviewed, dictated and finalized at location K.
--- NOTE | ~2022-12-02 | US_ITS ---
EXAMINATION: US venous doppler [facility] DATE: 12/02/2022 16:14 INDICATION: Shortness of breath TECHNIQUE: Trinh scale images without and with compression and Doppler images of the bilateral lower e xtremity veins were obtained. COMPARISON: 09/01/2022 FINDINGS: The posterior tibial and peroneal veins are not well demonstrated due to edema. The right common femo ral vein, profunda femoral vein, femoral vein, popliteal vein, and greater saphenous vein are patent. The posterior tibial and peroneal veins are not well demonstrated due to edema. The left common femor al vein, profunda femoral vein, femoral vein, popliteal vein, and greater saphenous vein are patent. IMPRESSION: 1. Visualized bilateral lower extremity veins are patent. No evidence of deep venous thrombosis. Reviewed, dictated and finalized at location L. IMPRESSION: 1. Visualized bilateral lower extremity veins are patent. No evidence of deep v enous thrombosis.
[2022-12-02 15:02] LABS: Basophils Absolute Auto 0.04 K/mm3 (0.00-0.10); Basophils Percent Auto 0.6 % (0.0-1.0); Eosinophils Absolute Auto 0.46 K/mm3 (0.02-0.50); Eosinophils Percent Auto 6.8 % (1.0-6.0); Hemoglobin 13.5 g/dL (11.7-13.8); Immature Granulocyte Absolute 0.02 K/mm3 (0.00-0.00); Immature Granulocyte Percent A 0.3 % (0.0-0.0); Lymphocytes Absolute Auto 1.49 K/mm3 (1.10-4.50); Lymphocytes Percent Auto 22.1 % (18.0-42.0); Mean Corpuscular HGB Conc 32.9 g/dL (32.0-36.0); Mean Corpuscular Volume 94.3 fL (78.0-102.0); Monocytes Absolute Auto 0.56 K/mm3 (0.10-0.90); Monocytes Percent Auto 8.3 % (2.0-11.0); Neutrophils Absolute Auto 4.2 K/mm3 (1.7-7.2); Neutrophils Percent Auto 61.9 % (50.0-70.0); Platelet Count Result 236 K/mm3 (150-420); Red Blood Count 4.35 M/mm3 (4.20-5.40); Red Cell Distribution Width 12.1 % (11.6-14.4); White Blood Count 6.7 K/mm3 (4.8-10.8)
[2022-12-02 15:03] LABS: Appearance Urine Clear (Clear); Bilirubin Urine Negative (Negative); Blood Urine Negative (Negative); Color Urine Light Yellow (Yellow); Glucose Urine UA Negative (Negative); Ketones Urine Negative (Negative); Leukocyte Esterase Ur 1+ (Negative); Nitrate Urine Negative (Negative); Protein Urine Negative (Negative); Urobilinogen Urine 0.2 mg/dL (0.2-1.0)
[2022-12-02 15:15] LABS: Hemoglobin A1C 5.5 % (<5.7)
[2022-12-02 15:24] LABS: D Dimer 1.36 mg/L (0.19-0.50)
[2022-12-02 15:27] LABS: Alanine Aminotransferase 28 U/L (14-59); Albumin Level 3.4 g/dL (3.4-5.0); Alkaline Phosphatase 87 U/L (46-116); Anion Gap 6 mmol/L (8-16); Aspartate Amino Transferase 23 U/L (15-37); Bilirubin,Total 0.3 mg/dL (0.00-1.00); Blood Urea Nitrogen 12 mg/dL (7-18); Calcium 9.4 mg/dL (8.5-10.1); Carbon Dioxide 33 mmol/L (21-32); Chloride 103 mmol/L (98-108); Creatine Kinase 58 U/L (26-192); Estimated Glomerular Filt Rate > 60; Free T4 Free Thyroxine 1.22 ng/dL (0.76-1.46); Glucose 96 mg/dL (70-99); Magnesium 1.8 mg/dL (1.8-2.4); NT Pro B Type Natriuretic Pept 258 pg/mL (0-125); Osmolality Calculated 293 mOsm/kg (285-295); Potassium 4.1 mmol/L (3.5-5.1); Sodium 142 mmol/L (136-145); Thyroid Stimulating Hormone 3.16 uIU/mL (0.36-3.74); Total Protein 7.3 g/dL (6.4-8.2); Troponin I 4.9 ng/L (0.00-60.4)
[2022-12-02 15:28] LABS: Add Urine Microscopic? YES; Bacteria Urine 1+ /hpf; RBC Urine None seen /hpf (0-2); Squamous Epithelial Cell Urine Few /hpf (Few)
== END 2022-12-02 14:37 | disposition home or self-care (01) ==
PROVIDERS: PCP Internal Medicine; Visit Provider Nurse Practitioner Family
DX: I50.9 Heart failure, unspecified (principal); E11.9 Type 2 diabetes mellitus without complications; I10 Essential (primary) hypertension; E03.9 Hypothyroidism, unspecified; I73.9 Peripheral vascular disease, unspecified; R06.02 Shortness of breath; M79.89 Other specified soft tissue disorders; K44.9 Diaphragmatic hernia without obstruction or gangrene; R91.8 Other nonspecific abnormal finding of lung field; R97.8 Other abnormal tumor markers; N39.0 Urinary tract infection, site not specified
CPT/HCPCS: 36415; 71046; 71275; 80053; 81001; 82550; 82553; 83036; 83735; 83880; 84439; 84443; 84484; 85025; 85380; 87077; 87086; 87088; 87186; 93970; Q9967

== ENCOUNTER 2023-01-28 19:07 | Emergency (ER) | payer MEDICARE, SELFPAY ==
--- NOTE | ~2023-01-28 | XR_ITS ---
EXAMINATION: XR chest 1V portable DATE: 01/28/2023 20:23 INDICATION: Generalized chest pain post fall TECHNIQUE: frontal view of the chest was obtained. COMPARISON: Chest radiograph and CT dated 12/02/2022 FINDINGS: The lungs remain clear with no focal airspace opacities, pulmonary edema, pleural effusion or pneumot horax. Size is normal. Again seen is enlargement of the central pulmonary arteries consistent with pu lmonary arterial hypertension.. Partially visualized glenoid component of a previously better visuali zed right reverse shoulder arthroplasty. IMPRESSION: 1. No acute cardiopulmonary disease. Reviewed, dictated and finalized at location A.
--- NOTE | ~2023-01-28 | CT_ITS ---
Noncontrast CT scan of the lumbar spine CLINICAL HISTORY: Trauma TECHNIQUE: Axial noncontrast imaging of the lumbar spine was performed. Sagittal and coronal reformat jan images were constructed. Dose reduction technique was used on this scan by utilizing automated ex posure control and iterative reconstruction technique. The dose-length product (DLP) was 1429.08 mGy- cm. FINDINGS: There is a partially imaged dextroscoliosis of the thoracolumbar spine. There is posterior fusion hardware from L3 through S1, bilateral rods and transpedicular screws present. There are inter body fusion devices at the L3-L4, L4-L5, and L5-S1 disc spaces. No acute fracture identified. There i s advanced degenerative disc narrowing at L1-L2 and L2-L3. At L1-L2, there is probable minimal disc bulge. No definite spinal canal stenosis or neural foraminal narrowing. At L2-L3, there is disc bulge and facet arthropathy, with probable mild to moderate central canal soto nosis/thecal sac compression. There is probable mild bilateral neural foraminal narrowing. At L3-L4, L4-L5, and L5-S1, streak artifact limits evaluation the spinal canal. Probable mild to mode rate right neural foraminal narrowing at L4-L5 and L5-S1. Paravertebral soft tissues are unremarkable. Impression: No acute fracture or subluxation identified. Posterior fusion from L3 through S1, as detailed above. Overall mild to possibly moderate degenerative spondylosis, as detailed above. Reviewed, dictated and finalized at [facility]. Impression: No acute fracture or subluxation identified. Posterior fusion from L3 through S1, as detailed above. Overall mild to possibly moderate degenerative spondylosis, as detailed above.
--- NOTE | ~2023-01-28 | CT_ITS ---
Noncontrast CT scan of the cervical spine Technique: Multiple contiguous axial [address] images of the cervical spine were obtained and rec onstructed in 2D sagittal and coronal planes on the acquisition scanner. Dose reduction technique was used on this scan by utilizing automated exposure control, adjustment of the mA and/or kV according to patient size. Clinical History: Pain Findings: No fracture identified. Minimal grade 1 anterolisthesis of C4 over C5 noted. There is advan tash degenerative disc narrowing at C5-C6 and C6-C7. There are diffuse facet joint degenerative change s throughout cervical spine. There is left neural foraminal narrowing at C5-C6. There is left neural foraminal narrowing at C6-C7. No prevertebral soft tissue swelling. Impression: No acute fracture. Minimal grade 1 anterolisthesis of C4 over C5. Moderate degenerative spondylosis, as detailed above.. Reviewed, dictated and finalized at [facility]. Impression: No acute fracture. Minimal grade 1 anterolisthesis of C4 over C5. Moderate degenerative spondylosis, as detailed above..
--- NOTE | ~2023-01-28 | CT_ITS ---
EXAMINATION: CT brain wo con DATE: 01/28/2023 20:21 INDICATION: Posterior head injury post fall TECHNIQUE: Computed tomography (CT) of the head was performed without intravenous contrast. Sagittal and coronal reconstructions were performed. The mA was adjusted according to patient size. Iterative reconstruction technique was employed. The dose-length product was 605.33 mGy-cm. COMPARISON: head CT dated 04/22/2021 FINDINGS: No fracture. No acute intracranial hemorrhage, acute infarction or abnormal extra axial fluid collect ion. Bilateral small old cerebellar infarcts. There is mild scattered white matter hypoattenuation co nsistent with chronic small vessel ischemic disease. Ventricles are normal and symmetric. No mass/ma ss effect. The orbits, paranasal sinuses and mastoid air cells are normal. IMPRESSION: 1. No fracture or acute intracranial process. 2. Small old infarcts in the bilateral cerebellar hemispheres. Reviewed, dictated and finalized at location A.
--- NOTE | ~2023-01-28 | XR_ITS ---
EXAMINATION: XR pelvis 1-2V DATE: 01/28/2023 20:24 INDICATION: Generalized pelvic pain post fall TECHNIQUE: An anteroposterior view of the pelvis was obtained. COMPARISON: 07/18/2020 FINDINGS: No fractures. Interval placement of bilateral total hip arthroplasties which are in near-anatomic ali gnment. The distal aspect of the femoral components are excluded from the [id number]. The acetabul ar components appear well-seated with no periprosthetic lucency. There is also been interval combined instrumented L3-S1 anterior and posterior spinal fusion with interbody fusion devices and bilateral vertical albino and pedicle screw fixation. There is moderate disc height loss at L2-L3. IMPRESSION: 1. No acute osseous abnormality. 2. L3-S1 instrumented anterior and posterior spinal fusion. 3. Partially visualized bilateral total hip arthroplasties. Reviewed, dictated and finalized at location A.
--- NOTE | 2023-01-28 19:09 | ED.FALL ---
HPI - Fall General Chief Complaint: Fall Stated Complaint: Fall/neck/back pain Time Seen by Provider: 01/28/23 19:08 Source: patient Mode of arrival: ambulatory Limitations: no limitations History of Present Illness HPI Narrative: 72-year-old female with a history of CVA, hypothyroidism, anxiety/depression, RLS, hypertension, chronic low back pain status post back surgery, DJD status post bilateral hip and knee replacements presents to the ER after she stepped on plastic pallet and fell backwards on a head. She presents with -- head injury. No loss of consciousness. No headache. No vomiting. No focal neuro deficit. -- Neck pain. And has a history of chronic neck viridiana -- low back pain. The patient has a history of back surgery and chronic low back pain. -- Bilateral hip pain. MD complaint: fall Onset (ago): hour(s) ( 1 hour ago) Fall from: standing Fall witnessed: no Place fall occurred: home Loss of consciousness: none Prolonged down time: no Symptoms prior to fall: none Context: tripped/slipped Location of injury: head and back Associated symptoms (after fall): neck pain Related Data Home Medications Medication Instructions Recorded Confirmed ezetimibe 10 mg tablet 10 mg PO DAILY 03/22/20 01/28/23 furosemide 40 mg tablet 20 mg PO DAILY PRN swelling 03/22/20 01/28/23 nortriptyline 25 mg capsule 25 mg PO HS 03/22/20 01/28/23 ropinirole 2 mg tablet 4 mg PO HS 03/22/20 01/28/23 spironolactone 100 mg tablet 100 mg PO DAILY 03/22/20 01/28/23 levothyroxine 125 mcg PO DAILY 05/01/20 01/28/23 Allergies Allergy/AdvReac Type Severity Reaction Status Date / Time adhesive Allergy Intermediate RASH Verified 06/20/20 13:16 alendronate sodium Allergy Mild STOMACH Verified 06/20/20 13:16 PAIN atorvastatin Allergy Unknown Unknown Verified 06/20/20 13:16 tizanidine Allergy Unknown Unknown Verified 06/20/20 13:16 cefdinir [From Omnicef] AdvReac Unknown Rash Verified 06/20/20 13:16 Review of Systems Review of Systems: All systems reviewed & are unremarkable except as noted in HPI and below Constitutional: Constitutional: Reports as per HPI and Reports no additional constitutional complaints Eyes: Eyes: Reports as per HPI and Reports no additional eye complaints ENT: Reports system reviewed and no additional complaints, except as documented and Reports as per HPI Cardiovascular: Cardiovascular: Reports as per HPI and Reports no additional cardiovascular complaints Respiratory: Respiratory: Reports as per HPI and Reports no additional respiratory complaints Gastrointestinal: Gastrointestinal: Reports as per HPI and Reports no additional gastrointestinal complaints Genitourinary: Genitourinary: Reports no additional female genitourinary complaints Musculoskeletal: Musculoskeletal: Reports no additional musculoskeletal complaints, Reports as per HPI and Reports back pain Comments: The patient has worsening of her chronic back pain. Neck pain Integumentary/Breasts: Skin/Breast: Reports system reviewed and no additional complaints, except as docu and Reports as per HPI Comments: no bruising or lacerations. Neurologic: Reports system reviewed and no additional complaints, except as documented and Reports as per HPI Psychiatric: Psychiatric: Reports no additional psychiatric complaints and Reports as per HPI Endocrine: Endocrine: Reports no additional endocrine complaints and Reports as per HPI Hematologic/Lymphatic: Hematologic/Lymphatic: Reports no additional hematologic/lymphatic complaints and Reports as per HPI Allergic/Immunologic: Allergic/Immunologic: Reports no additional allergic/immunologic complaints and Reports as per HPI PMF Past Medical History Medical History CVA (cerebral vascular accident) Degenerative joint disease (DJD) of hip Functional bowel disorder HTN (hypertension) Hypothyroidism (acquired) Migraine Surgical Hi
[2023-01-28] MEDS: HYDROmorphone HCL INJ (*CRX) 2 MG/ML VIAL 0.5 MG IM ×2 (19:24→22:04)
[2023-01-28] MEDS: ONDANSETRON HCL ODT 4 MG TABLET PO (19:27)
[2023-01-28 19:39] VITALS: BP 130/58; PULSE 108; RESP 20; TEMP 36.7; O2SAT 92
[2023-01-28 22:12] VITALS: BP 94/69; PULSE 102; RESP 20; TEMP 36.7; O2SAT 92
== END 2023-01-28 22:15 | disposition home or self-care (01) ==
PROVIDERS: Emergency Provider Internal Medicine Critical Care Medicine; PCP Internal Medicine
DX: S09.90XA Unspecified injury of head, initial encounter (principal); G89.29 Other chronic pain; M54.50 Low back pain, unspecified; M54.2 Cervicalgia; E03.9 Hypothyroidism, unspecified; F41.9 Anxiety disorder, unspecified; F32.A Depression, unspecified; I10 Essential (primary) hypertension; Z86.73 Personal history of transient ischemic attack (TIA), and cerebral infarction without residual deficits; W01.0XXA Fall on same level from slipping, tripping and stumbling without subsequent striking against object, initial encounter; Y92.009 Unspecified place in unspecified non-institutional (private) residence as the place of occurrence of the external cause
CPT/HCPCS: 70450; 71045; 72125; 72131; 72170; 96372; 99284; A9270; J1170; L0150

== ENCOUNTER 2023-01-29 12:44 | Inpatient (IN) | payer MEDICARE, SELFPAY ==
[2023-01-29] VITALS (48 sets, daily range): BP systolic 94–140; BP diastolic 42–108; PULSE 74–112; RESP 14–185; TEMP 36.4–38.2; O2SAT 85–100; BMI 48.6; BMI 45.2
--- NOTE | ~2023-01-29 | US_ITS ---
US renal BI 01/29/2023 16:30 Procedure: Realtime transabdominal ultrasound of the kidneys and bladder. Indication: Acute renal injury Comparison: No prior studies for comparison. Findings: Renal echotexture is normal bilaterally without hydronephrosis, contour deforming mass or r enal calculus. The right kidney measures 11.8 cm and left kidney measures 14.3 cm. Bladder is decompr essed by Canseco catheter. Impression: 1: Unremarkable renal ultrasound. No stones, masses or hydronephrosis. Reviewed, dictated and finalized at location L. Impression: 1: Unremarkable renal ultrasound. No stones, masses or hydronephrosis.
--- NOTE | ~2023-01-29 | XR_ITS ---
EXAMINATION: XR chest 1V portable INDICATION: Shortness of breath TECHNIQUE: Portable AP chest at 1021 hours COMPARISON: 01/30/2023 FINDINGS: There is a small, stable left pleural effusion. A mild diffuse interstitial pattern persist s but has improved. The heart size is normal. There is no pneumothorax. There are minimal left basila r airspace opacities. Changes of right total shoulder arthroplasty are noted. IMPRESSION: 1. Small left pleural effusion with minimal associated airspace opacity, likely atelectasis. 2. Improving pulmonary edema. Reviewed, dictated and finalized at location A.
--- NOTE | ~2023-01-29 | XR_ITS ---
EXAMINATION: XR chest 1V portable DATE: 01/30/2023 21:22 INDICATION: Shortness of breath TECHNIQUE: frontal view of the chest was obtained. COMPARISON: Chest radiograph dated 01/29/2023 FINDINGS: Pulmonary vascular congestion and mild increased interstitial pattern most prominent in the perihilar regions and lower lung zones consistent with mild pulmonary edema. Small left pleural effusion. No p neumothorax. Heart is normal. Reverse right total shoulder arthroplasty. IMPRESSION: 1. Mild pulmonary edema and small left pleural effusion. Reviewed, dictated and finalized at location A.
--- NOTE | ~2023-01-29 | CT_ITS ---
EXAMINATION: CT brain wo con INDICATION: Head injury COMPARISON: 01/29/2023 TECHNIQUE: Standard unenhanced head CT. The dose-length product (DLP) was 605.33 mGy-cm. The mA was a djusted according to patient size. Iterative reconstruction technique was employed. FINDINGS: There is no acute intraparenchymal hemorrhage. No evidence of mass lesion. No evidence of a cute infarction. Old cerebellar infarcts are again noted. There is mild periventricular and subcortic al hypodensity probably related to small vessel ischemic disease. There is mild prominence of the sul ci and ventricles related to cerebral atrophy. Intracranial calcified cerebral atherosclerosis is not ed. There are no extra-axial collections. There is no mass effect or midline shift. The orbits and so ft tissues are unremarkable. There is mild mucosal thickening of the paranasal sinuses. IMPRESSION: 1. No acute intracranial abnormality. 2. Age related findings. Reviewed, dictated and finalized at location A.
--- NOTE | ~2023-01-29 | US_ITS ---
Duplex Sonography of the bilateral lower extremities: Indication: Swelling Sagittal and transverse B-mode images as well as color-flow imaging were performed on the right and l eft femoral and popliteal veins. B-mode examination was done without and with compression in the tra nsverse plane. There is good visualization of the bilateral common femoral, proximal profunda femora l, superficial femoral, greater saphenous, and popliteal veins. Normal flow was seen on color-flow im aging. Normal compressibility was demonstrated. Visualized calf veins are also patent bilaterally. Impression: No evidence of deep vein thrombosis involving either lower extremity. Reviewed, dictated and finalized at location M. Impression: No evidence of deep vein thrombosis involving either lower extremit y.
--- NOTE | ~2023-01-29 | XR_ITS ---
EXAMINATION: XR chest 1V DATE: 01/29/2023 13:46 INDICATION: Sepsis. Fever. TECHNIQUE: A single frontal view of the chest was obtained. COMPARISON: Chest single view 01/28/2023, chest CT 12/02/2022 FINDINGS: There is an interstitial pattern in the lungs, consistent with mild pulmonary edema. No ple ural effusion or pneumothorax. The heart size is normal. There is a right shoulder arthroplasty. IMPRESSION: 1. Mild pulmonary edema. Reviewed, dictated and finalized at location A. IMPRESSION: 1. Mild pulmonary edema.
--- NOTE | ~2023-01-29 | CT_ITS ---
EXAMINATION: CT brain wo con DATE: 01/29/2023 13:43 INDICATION: Altered mental status. TECHNIQUE: Computed tomography (CT) of the head was performed without intravenous contrast. The mA wa s adjusted according to patient size. Iterative reconstruction technique was employed. The dose-lengt h product was 605.33 mGy-cm. COMPARISON: Head CT 01/28/2023, brain MRI 04/24/2021 FINDINGS: There are small old infarcts in the cerebellum bilaterally. There is no intracranial hemorr umm, acute infarction, or abnormal intracranial mass lesion. The ventricles are normal in size. The orbits are normal. There is mild mucosal thickening in the paranasal sinuses. There are trace bilater al mastoid effusions. IMPRESSION: 1. Old infarcts in the cerebellum. Reviewed, dictated and finalized at location A.
--- NOTE | 2023-01-29 12:47 | ECG_ITS ---
Measurements Intervals [place] Rate: 112 P: ID: 0 QRS: 5 QRSD: 104 T: 84 QT: 316 QTc: 432 Interpretive Statements SINUS TACHYCARDIA BORDERLINE ST-T WAVE ABNORMALITY- HIGH LATERAL LEADS BASELINE ARTIFACT- I, II, III, AVR, AVL, AVF, V1-V6 ABNORMAL ECG COMPARED TO ECG 04/22/2021 15:02:36 SINUS TACHYCARDIA NOW PRESENT Electronically Signed On 01-29-2023 15:43:30 CDT by Manan Davenport D.O.
--- NOTE | 2023-01-29 13:13 | ED.WEAKNESS ---
HPI - Weakness General Chief complaint: Weakness Stated complaint: septic? Time Seen by Provider: 01/29/23 12:47 History of Present Illness HPI Narrative: Patient is a 72-year-old female with a history of hypothyroidism, hypertension, CAD presenting with altered mental status. Patient's family is at bedside and they state that the patient had a fall yesterday. She struck her head on concrete. She was seen at an outside hospital and no injuries were found so she was discharged home. This morning her found her to be less responsive than normal. States that she seems confused. Patient complains of generalized weakness and malaise but she denies any focal pain. States that she does feel short of breath. No significant coughing. Denies dysuria but states that she has not urinated in almost a day. No focal numbness or weakness, chest pain, abdominal pain, vomiting, diarrhea. Related Data Home Medications Medication Instructions Recorded Confirmed ezetimibe 10 mg tablet 10 mg PO HS 03/22/20 01/29/23 furosemide 40 mg tablet 20 mg PO DAILY PRN swelling 03/22/20 01/29/23 nortriptyline 25 mg capsule 25 mg PO HS 03/22/20 01/29/23 ropinirole 2 mg tablet 4 mg PO HS 03/22/20 01/29/23 spironolactone 100 mg tablet 25 mg PO DAILY 03/22/20 01/29/23 levothyroxine 125 mcg PO DAILY 05/01/20 01/29/23 celecoxib 200 mg capsule 200 mg PO BID 01/29/23 01/29/23 clopidogrel 75 mg tablet (Plavix) 75 mg PO DAILY 01/29/23 01/29/23 pregabalin 150 mg capsule 150 mg PO TID 01/29/23 01/29/23 Allergies Allergy/AdvReac Type Severity Reaction Status Date / Time adhesive Allergy Intermediate RASH Verified 01/29/23 12:50 alendronate sodium Allergy Mild STOMACH Verified 01/29/23 12:50 PAIN atorvastatin Allergy Unknown Unknown Verified 01/29/23 12:50 tizanidine Allergy Unknown Unknown Verified 01/29/23 12:50 cefdinir [From Omnicef] AdvReac Unknown Rash Verified 02/02/23 12:01 Review of Systems Review of Systems: All systems reviewed & are unremarkable except as noted in HPI and below PMFSH Past Medical History Medical History (Updated 02/08/23 @ 19:37 by Marleni Franco MD) Cerebrovascular accident Degenerative joint disease Depression Diastolic dysfunction On echocardiogram in April 2021. Functional bowel disorder Hypertension Hypothyroidism Migraine Mitral valve prolapse Morbid obesity Primary stress urinary incontinence Restless leg syndrome Surgical History Surgical History History of bilateral knee arthroplasty (2007) History of hysterectomy (1996) History of shoulder surgery Family History Family History Mother Breast cancer Father Chronic obstructive pulmonary disease Sibling Breast cancer Multiple sclerosis Social History Social History Social History: Surrogate medical decision maker: Hayden Mills, spouse. Code status: Full code. Smoking status: Never smoker Second hand tobacco smoke exposure: No Alcohol intake: never Drinks per week: 0 Substance use: never Substance use type: prescription drug Last use: 01/28/2023 morning Lack of Transportation: No Lack of Food: Never True Current Housing: I Have Housing Concerned About Future Housing: No Difficulty Paying Gas/Electric Bills: No Difficulty Paying for Meds: No Currently Unemployed: No Education: Trade/Vocational Certificate Difficulty w/ Childcare or Family Care: No Additional living arrangements comments: Lives with in [place]. Spiritual care concerns: No Exam Narrative: GENERAL: Ill-appearing, complaining that she feels cold, pleasant and cooperative HEAD: Normocephalic, atraumatic. EYES: PERRLA and EOMI. ENT: Nares clear, no rhinorrhea or epistaxis. Mucous membranes dry NECK: Supple. CHEST: Clear to auscultation. No respiratory
[2023-01-29 13:24] LABS: Basophils Absolute Auto 0.1 K/mm3 (0.0-0.1); Basophils Percent Auto 0.4 % (0.2-1.2); Eosinophils Absolute Auto 0.1 K/mm3 (0-0.3); Eosinophils Percent Auto 0.5 % (0-4.4); Hematocrit 40.5 % (37.0-47.0); Hemoglobin 13.1 g/dL (12.0-15.0); Lymphocytes Absolute Auto 0.96 K/mm3 (0.9-3.2); Lymphocytes Percent Auto 4.8 % (18.3-44.2); Mean Corpuscular HGB Conc 32.3 g/dl (32-36); Mean Corpuscular Hemoglobin 30.5 pg (26-34); Mean Corpuscular Volume 94.2 fl (80-100); Mean Platelet Volume 9.3 fl (7.4-10.4); Monocytes Absolute Auto 1.3 K/mm3 (0.1-0.6); Monocytes Percent Auto 6.6 % (2.6-8.5); Neutrophils Absolute Auto 17.3 K/mm3 (1.3-6.7); Neutrophils Percent Auto 85.7 % (45.5-73.1); Platelet Count Result 182 k/mm3 (150-375); Red Cell Distribution Width 12.6 % (11.5-14.5); White Blood Count 20.2 K/mm3 (4.5-10.0)
[2023-01-29] MEDS: PIPERACILLN/TAZ 3.375GM/NS50ML 3.375 GM/50 ML BAG IVPB (13:28)
[2023-01-29 13:34] LABS: INR 1.4; Prothrombin Time 17.5 Seconds (11.1-14.7)
[2023-01-29 13:35] LABS: Partial Thromboplastin Time 35.7 SECONDS (22.3-36.8)
[2023-01-29 13:39] LABS: Alanine Aminotransferase 24 U/L (6-35); Albumin Level 3.6 g/dL (3.5-5.1); Alkaline Phosphatase 82 U/L (38-126); Anion Gap 8 mmol/L (8-16); Aspartate Amino Transferase 49 U/L (14-36); Bilirubin,Total 1.3 mg/dL (0.2-1.3); Blood Urea Nitrogen 34 mg/dL (7-17); Calcium 8.5 mg/dL (8.4-10.2); Carbon Dioxide 29 mmol/L (22-30); Chloride 100 mmol/L (98-107); Estimated CRCL calculation 25 ml/min; Estimated Glomerular Filt Rate 17; Glucose 88 mg/dL (65-110); Potassium 3.4 mmol/L (3.4-5.0); Sodium 137 mmol/L (137-145)
[2023-01-29 13:48] LABS: CRP 25.9 mg/dL (<1.0)
[2023-01-29 14:03] LABS: Appearance Urine Turbid (Clear); Bacteria Urine 4+ /hpf; Bilirubin Urine Negative (Negative); Blood Urine 3+ (Negative); Color Urine Dark Yellow (Yellow); Glucose Urine UA Negative (Negative); Ketones Urine Trace mg/dL (Negative); Leukocyte Esterase Ur 3+ LEU/UL (Negative); Need Manual Microscopic Reviewed; Nitrate Urine Negative (Negative); Protein Urine 2+ mg/dL (Negative); RBC Urine 0-2 /hpf (0-2); Specific Grav Ur 1.016 (1.001-1.035); Squamous Epithelial Cell Urine None seen /hpf (Few); WBC Urine >100 /hpf
[2023-01-29 14:08] LABS: Add Urine Microscopic? YES
[2023-01-29] MEDS: VANCOMYCIN 1,250 MG/NS 250 ML 1,250 MG/250 ML BAG 166.67 MG IVPB ×2 (14:21→15:52)
--- NOTE | 2023-01-29 15:51 | PM.IMHP ---
H&P: HPI History of Present Illness Date/Time: 01/29/23 15:00 Chief Complaint: Weakness. Narrative: This is a 72-year-old female with history of stroke, urinary tract infections, hypertension, hypothyroidism, restless leg syndrome, and other comorbidities who presented to the emergency department via EMS from home for evaluation of weakness. Yesterday morning she and her went to [place] for routine doctor's appointments and during the drive she developed a headache and began to feel nauseated. They pulled over and she vomited and she actually felt a lot better thereafter. Following their appointments a when out to lunch and shopping before returning home. While getting out of the car she tripped over a pallet that was in the garage and she fell back onto the ground, hitting her buttock in the left side of her head. She was seen in the ED at [facility] last evening where she had a negative CT scan. She was given pain medications and was discharged home. She went to bed early as she was ?exhausted? and she slept well overnight. Upon waking this morning she was not feeling well with chills, body aches more pronounced in the low back, and generalized weakness. Her urine has been malodorous but she has not had any dysuria, hesitancy, or frequency. In fact she has not had much urine output today at all. At the time my evaluation she is feeling a bit better but continues to have pretty significant chills and shake. In the ED: Her blood pressure was low as 94/63 but has responded to IV fluids. She had temperature of 100.7? F on arrival. Labs were significant for a WBC count of 20.2, BUN 34, creatinine 2.70, lactic acid 2.1, magnesium 1.5, CK 1086, CRP 25.9. Urine was turbid with 2+ protein, trace ketones, 3+ blood, 3+ leukocyte esterase, 0 to 2 RBC, greater than 100 WBC, and 4+ bacteria. Is a negative for influenza and COVID. Brain CT showed old infarcts in the cerebellum. Chest x-ray showed mild pulmonary edema. She received a total of 4 L of IV fluids in the ED and was given doses of Zosyn and vancomycin given her sepsis picture. She has since been admitted to the IMU. Review of Systems Review of Systems: Twelve systems were reviewed and are negative except for as per HPI. PMFSH Past Medical History Medical History (Updated 01/29/23 @ 22:09 by Alyssa Noe PA-C) Cerebrovascular accident Degenerative joint disease Depression Diastolic dysfunction On echocardiogram in April 2021. Functional bowel disorder Hypertension Hypothyroidism Migraine Mitral valve prolapse Morbid obesity Primary stress urinary incontinence Restless leg syndrome Surgical History Surgical History (Updated 01/29/23 @ 15:55 by Alyssa Noe PA-C) History of bilateral knee arthroplasty (2007) History of hysterectomy (1996) History of shoulder surgery Family History Family History Mother Breast cancer Father Chronic obstructive pulmonary disease Sibling Breast cancer Multiple sclerosis Social History Social History (Updated 01/29/23 @ 15:56 by Alyssa Noe PA-C) Social History: Surrogate medical decision maker: Hayden Mills, spouse. Code status: Full code. Smoking status: Never smoker Second hand tobacco smoke exposure: No Alcohol intake: never Drinks per week: 0 Substance use: never Substance use type: prescription drug Last use: 01/28/2023 morning Lack of Transportation: No Lack of Food: Never True Current Housing: I Have Housing Concerned About Future Housing: No Difficulty Paying Gas/Electric Bills: No Difficulty Paying for Meds: No Currently Unemployed: No Education: Trade/Vocational Certificate Difficulty w/ Childcare or Family Care: No Additional living arrangements comments: Lives with in [place]. Spiritual care concerns: No Meds Home Medications and Allergies Home Medications Medication Instru
[2023-01-29 15:54] LABS: Influenza A QL RT-PCR Negative (Negative); Influenza B QL RT-PCR Negative (Negative); SARS-CoV-2 RNA PCR Negative (Negative)
[2023-01-29 16:53] LABS: Lactic Acid Reflex 2.1 mmol/L (0.7-2.0)
[2023-01-29 16:56] LABS: Creatine Kinase 1086 U/L (30-135); Magnesium 1.5 mg/dL (1.6-2.3); Phosphorus 3.9 mg/dL (2.5-4.5)
[2023-01-29] MEDS: LACTATED RINGERS 1,000 ML 150 ML IV CONT (17:27)
[2023-01-29 19:40] LABS: Reflex Lactic Acid Yes or No Add Lactic
--- NOTE | 2023-01-29 20:30 | ADMGEN ---
This patient, Gilma Mills, was admitted to IMU Room 202-01 at 1938. Patient/family oriented to hospital policies and general routines including ID bracelet, bed and alarms, visiting hours, pain management, procedures, bathroom and other care routines, personal items, smoking policy, room service/diet, and visiting hours. Information on how to activate the Rapid Response Team has been discussed. Patient/Family are encouraged to report perceived risks to care and to ask questions if they do not understand what they are told or what they should do.
[2023-01-29 20:43] LABS: Lactic Acid 2.2 mmol/L (0.7-2.0)
[2023-01-29] MEDS: PIPERACILLIN/TAZ 2.25G/NS 50ML 2.25 GM/50 ML BAG IVPB (21:54)
[2023-01-29] MEDS: rOPINIRole HCL 1 MG TABLET 4 MG PO (22:30)
[2023-01-29] MEDS: NORTRIPTYLINE HCL 25 MG CAPSULE PO (22:31)
[2023-01-29] MEDS: EZETIMIBE 10 MG TABLET PO (22:31)
[2023-01-29] MEDS: PREGABALIN (*CRX) 75 MG CAPSULE 150 MG PO (22:32)
--- NOTE | 2023-01-29 22:32 | ECG_ITS ---
Measurements Intervals [place] Rate: 107 P: 233 CT: 131 QRS: 7 QRSD: 104 T: 94 QT: 306 QTc: 409 Interpretive Statements SINUS TACHYCARDIA BORDERLINE ST-T WAVE ABNORMALITY- HIGH LATERAL LEADS BASELINE ARTIFACT- I, II, III, AVR, AVL, AVF, V1-V2, V5 ABNORMAL ECG COMPARED TO ECG 01/29/2023 12:46:20 NO SIGNIFICANT CHANGES Electronically Signed On 01-30-2023 12:19:45 CDT by Manan Davenport D.O.
[2023-01-29] MEDS: HYDROcodone/acetaminophen (*CRX) 5-325 MG TABLET 1 TAB PO (22:35)
[2023-01-29] MEDS: MAGNESIUM SULF 2 GM/WATER 50ML 2 GM/50 ML BAG IVPB (22:35)
[2023-01-29 22:47] LABS: Anion Gap 10 mmol/L (8-16); Blood Urea Nitrogen 36 mg/dL (7-17); Calcium 7.7 mg/dL (8.4-10.2); Carbon Dioxide 23 mmol/L (22-30); Chloride 102 mmol/L (98-107); Creatine Kinase 1413 U/L (30-135); Estimated CRCL calculation 31 ml/min; Estimated Glomerular Filt Rate 20; Glucose 81 mg/dL (65-110); Sodium 135 mmol/L (137-145)
[2023-01-29 22:49] LABS: NT Pro B Type Natriuretic Pept 7640 pg/mL (19.9-100)
[2023-01-30] VITALS (17 sets, daily range): BP systolic 104–136; BP diastolic 48–92; PULSE 108–119; RESP 18–22; TEMP 36.6–37.2; O2SAT 90–100
[2023-01-30] MEDS: LACTATED RINGERS 1,000 ML 150 ML IV CONT ×3 (00:11→21:10)
[2023-01-30] MEDS: PIPERACILLIN/TAZ 2.25G/NS 50ML 2.25 GM/50 ML BAG IVPB ×4 (00:15→19:45)
[2023-01-30 05:04] LABS: Hemoglobin 11.2 g/dL (12.0-15.0); Mean Corpuscular Hemoglobin 30.4 pg (26-34); Mean Corpuscular Volume 95.1 fl (80-100); Mean Platelet Volume 9.1 fl (7.4-10.4); Platelet Count Result 153 k/mm3 (150-375); Red Blood Count 3.68 M/mm3 (4.2-5.4); White Blood Count 18.8 K/mm3 (4.5-10.0)
[2023-01-30 05:24] LABS: Alanine Aminotransferase 32 U/L (6-35); Albumin Level 2.9 g/dL (3.5-5.1); Alkaline Phosphatase 66 U/L (38-126); Anion Gap 4 mmol/L (8-16); Aspartate Amino Transferase 99 U/L (14-36); Blood Urea Nitrogen 36 mg/dL (7-17); Calcium 7.7 mg/dL (8.4-10.2); Carbon Dioxide 29 mmol/L (22-30); Chloride 102 mmol/L (98-107); Estimated CRCL calculation 32 ml/min; Estimated Glomerular Filt Rate 21; Glucose 96 mg/dL (65-110); Phosphorus 3.6 mg/dL (2.5-4.5); Potassium 3.4 mmol/L (3.4-5.0); Sodium 135 mmol/L (137-145)
[2023-01-30 05:29] LABS: Creatine Kinase 2999 U/L (30-135)
[2023-01-30 05:49] LABS: Band Neutrophils Percent 16 % (0-6); Lymphocytes Absolute Manual 1.12 K/mm3 (1.1-4.5); Monocytes Absolute Manual 0.56 K/mm3 (0.1-0.90); Monocytes Percent Manual 3 % (3-9); Neutrophils Percent Manual 75 % (46-73); Platelet Estimate Adequate (Adequate); Schistocytes None Seen (NORMAL); Total Cells Counted 100
[2023-01-30] MEDS: PERFLUTREN LIPID MICROSPHERES 1.5 ML VIAL DILUTED TO 10 ML TOTAL VOLUME IV PUSH (08:30)
--- NOTE | 2023-01-30 08:30 | PM.IMPN ---
Progress Note: A&P Assessment and Plan (1) Sepsis: Qualifiers: Sepsis type: sepsis due to unspecified organism Sepsis acute organ dysfunction status: with acute organ dysfunction Severe sepsis acute organ dysfunction type: acute renal failure Acute renal failure type: with other specified pathological lesion Severe sepsis shock status: with septic shock Qualified Code(s): A41.9 - Sepsis, unspecified organism; R65.21 - Severe sepsis with septic shock; N17.8 - Other acute kidney failure Code(s): A41.9 - Sepsis, unspecified organism Status: Acute Assessment and Plan: Patient meets sepsis criteria with fever, hypotension, leukocytosis, lactic acidosis and acute kidney injury source of infection appears to be a UTI blood cultures are positive with Gram-negative bacilli lactic acid 2.2 heart rate remains in the low 110s continue Zosyn for now IV hydration given the ED and is currently continue CK is also noted to be elevated and renal failure is also noted at this time patient meets severe sepsis criteria (2) Urinary tract infection: Qualifiers: Urinary tract infection type: acute cystitis Hematuria presence: without hematuria Qualified Code(s): N30.00 - Acute cystitis without hematuria Code(s): N39.0 - Urinary tract infection, site not specified Status: Acute Assessment and Plan: Continue Zosyn, pending urine culture. trend urine output adjust antibiotics to culture results (3) Acute kidney injury: Code(s): N17.9 - Acute kidney failure, unspecified Status: Acute Assessment and Plan: BUN creatinine noted to be elevated upon arrival at 34/2.70 current BUN and creatinine 36/2.30 4 L of fluid given in the ED urine output is lagging CK is elevated trending up renal ultrasound showed no acute abnormalities strict I&Os avoid nephrotoxic agents FENa score indicates prerenal continue IV fluids for now (4) Diastolic dysfunction: Code(s): I51.89 - Other ill-defined heart diseases Status: Acute Assessment and Plan: previous echo showed diastolic dysfunction chest x-ray shows mild pulmonary edema EF is 60 65% with a grade 1 diastolic dysfunction strict I&Os IV diuresis as indicated trend labs daily weights BNP is 7640 (5) Rhabdomyolysis: Qualifiers: Rhabdomyolysis type: traumatic Encounter type: sequela Qualified Code(s): T79.6XXS - Traumatic ischemia of muscle, sequela Code(s): M62.82 - Rhabdomyolysis Status: Acute Assessment and Plan: Total CK is 1086. trending up is currently 2999 continue trend CK continue IV fluids most likely related to recent fall (6) Hypomagnesemia: Code(s): E83.42 - Hypomagnesemia Status: Acute Assessment and Plan: Cautious replacement of magnesium. mg 2.0 Continue to trend (7) Restless leg syndrome: Code(s): G25.81 - Restless legs syndrome Status: Acute Assessment and Plan: Continue pregabalin, nortriptyline, and ropinirole. (8) Hypothyroidism: Code(s): E03.9 - Hypothyroidism, unspecified Status: Acute Assessment and Plan: Continue levothyroxine TSH 1.420 Time Spent With Patient Time: 51 minutes Time with patient: Greater than 35 minutes Subjective Date/time seen: 01/30/23 16:12 Review of Systems Review of Systems: All systems reviewed & are unremarkable except as noted in HPI and below Exam Narrative: General: well-nourished, well-appearing 72-year-old female, sitting up in bed, comfortable, NARD Neuro: awake, alert and oriented x4, speech clear, no focal neuro deficits noted HEENMT: normocephalic, atraumatic, EOMI, sclerae anicteric, moist oral mucosa Respiratory: coarse crackle to auscultation on the l
--- NOTE | 2023-01-30 08:30 | P.PNIM_ITS ---
Progress Note: A&P Assessment and Plan (1) Sepsis: Qualifiers: Sepsis type: sepsis due to unspecified organism Sepsis acute organ dysfunction status: with acute organ dysfunction Severe sepsis acute organ dysfunction type: acute renal failure Acute renal failure type: with other specified pathological lesion Severe sepsis shock status: with septic shock Qualified Code(s): A41.9 - Sepsis, unspecified organism; R65.21 - Severe sepsis with septic shock; N17.8 - Other acute kidney failure Code(s): A41.9 - Sepsis, unspecified organism Status: Acute Assessment and Plan: * Patient meets sepsis criteria with fever, hypotension, leukocytosis, lactic acidosis and acute kidney injury * source of infection appears to be a UTI * blood cultures are positive with Gram-negative bacilli * lactic acid 2.2 * heart rate remains in the low 110s * continue Zosyn for now * IV hydration given the ED and is currently continue * CK is also noted to be elevated and renal failure is also noted * at this time patient meets severe sepsis criteria (2) Urinary tract infection: Qualifiers: Urinary tract infection type: acute cystitis Hematuria presence: without hematuria Qualified Code(s): N30.00 - Acute cystitis without hematuria Code(s): N39.0 - Urinary tract infection, site not specified Status: Acute Assessment and Plan: * Continue Zosyn, * pending urine culture. * trend urine output * adjust antibiotics to culture results (3) Acute kidney injury: Code(s): N17.9 - Acute kidney failure, unspecified Status: Acute Assessment and Plan: * BUN creatinine noted to be elevated upon arrival at 34/2.70 * current BUN and creatinine 36/2.30 * 4 L of fluid given in the ED * urine output is lagging * CK is elevated trending up * renal ultrasound showed no acute abnormalities * strict I&Os * avoid nephrotoxic agents * FENa score indicates prerenal * continue IV fluids for now (4) Diastolic dysfunction: Code(s): I51.89 - Other ill-defined heart diseases Status: Acute Assessment and Plan: * previous echo showed diastolic dysfunction * chest x-ray shows mild pulmonary edema * EF is 60 65% with a grade 1 diastolic dysfunction * strict I&Os * IV diuresis as indicated * trend labs * daily weights * BNP is 7640 (5) Rhabdomyolysis: Qualifiers: Rhabdomyolysis type: traumatic Encounter type: sequela Qualified Code(s): T79.6XXS - Traumatic ischemia of muscle, sequela Code(s): M62.82 - Rhabdomyolysis Status: Acute Assessment and Plan: * Total CK is 1086. * trending up is currently 2999 * continue trend CK * continue IV fluids * most likely related to recent fall (6) Hypomagnesemia: Code(s): E83.42 - Hypomagnesemia Status: Acute Assessment and Plan: * Cautious replacement of magnesium. * mg 2.0 * Continue to trend (7) Restless leg syndrome: Code(s): G25.81 - Restless legs syndrome Status: Acute Assessment and Plan: * Continue pregabalin, nortriptyline, and ropinirole. (8) Hypothyroidism: Code(s): E03.9 - Hypothyroidism, unspecified Status: Acute Assessment and Plan: * Continue levoth
--- NOTE | 2023-01-30 09:56 | IVDEFINITY ---
Prior to administration of IV Definity the patient was educated on the risks and benefits of the imaging enhancing agent including potential adverse side effects. The patient verbalized understanding. Allergies were verified. No exclusion criteria were identified and at least one of the following inclusion criteria were met: 1) physician request, 2) patient technically difficult to image (per the [place] [employer] of Echocardi[employer] guidelines of two or more segments not discernable within the apical view), or 3) questionable left ventricular function. ?
[2023-01-30] MEDS: CLOPIDOGREL BISULFATE 75 MG TABLET PO (10:12)
[2023-01-30] MEDS: PREGABALIN (*CRX) 75 MG CAPSULE 150 MG PO ×3 (10:12→20:30)
[2023-01-30] MEDS: HEPARIN SODIUM 5,000 UNITS/ML VIAL 5000 UNITS SUB-Q ×2 (10:13→20:31)
[2023-01-30] MEDS: FUROSEMIDE INJ 40 MG/4 ML VIAL IV PUSH (12:25)
[2023-01-30 12:43] LABS: Creatinine Urine 93.9 mg/dL; Urea Random Urine 757 MG/DL
[2023-01-30 12:45] LABS: Potassium Urine Random 27.7 meq/L; Sodium Urine Random 49 meq/L
--- NOTE | 2023-01-30 13:25 | PCCCNOTE ---
On 01/30/23, the student, [Lyssa Bond], provided care and completed [facility] documentation on this patient. I have reviewed the student's documentation and agree with the findings.
[2023-01-30] MEDS: NORTRIPTYLINE HCL 25 MG CAPSULE PO (20:30)
[2023-01-30] MEDS: EZETIMIBE 10 MG TABLET PO (20:30)
[2023-01-30] MEDS: rOPINIRole HCL 1 MG TABLET 4 MG PO (20:30)
--- NOTE | 2023-01-30 22:12 | ECHO_ITS ---
Patient Info Name: Gilma Mills Age: 72 years : 1950 Gender: Female Ht: 70 in Wt: 315 lbs BSA: 2.73 m2 HR: 70 bpm BP: 128 / 65 mmHg Heart Rhythm: Sinus Rhythm Technical Quality: Poor Exam Date: 01/30/2023 7:43 AM Exam Location: [facility] Patient Status: Inpatient Admit Date: 01/29/2023 Staff Ordering Physician: Alyssa Noe PA-C [employer] System: Yasmin Allred RDCS Attending Provider: Socrates Albarado MD Referring Physician: Kusum HEREDIA; Exam Type: CA echo dop color flow w con Study Info Indications - Diastolic dysfunction, edema Complete two-dimensional, color flow and Doppler transthoracic echocardiogram is performed with contrast to opacify the left ventricle and to improve the deliniation of the left ventricle endocardial borders. Contrast/Agitated Saline Contrast/Ag. Saline: Definity Amount: 3.00 ml Administered By: Yasmin Allred RDCS Existing IV Access: Yes IV Access Condition: patent with no signs of infiltration History/Risk Factors Hypertension: Yes Dyslipidemia: No Myocardial Infarction ([place]): No Obesity: Yes Congestive Heart Failure (CHF): No Cardiomyopathy/LV Systolic Dysfunction: No Diabetes Mellitus: No COPD: No Tobacco Use: Never Cerebrovascular Disease: No Deep Vein Thrombosis (DVT): None Frailty Scale (CSHA): 5: Mildly Frail Cardiac Arrest: No Summary 1. Technically suboptimal study due to poor sonographic images. 2. Definity contrast administered improved wall motion interpretation. 3. Left ventricular chamber dimension is normal. 4. Left ventricular systolic function is normal, estimated at 60-65%. 5. The left ventricular diastolic function is grade I diastolic dysfunction. 6. E/e' 5 is not elevated. 7. Left atrial chamber dimension is mildly enlarged. 8. There is trace tricuspid valve regurgitation. 9. No pulmonary hypertension, estimated pulmonary arterial systolic pressure is 37 mmHg. Left Ventricle E/e' 5 is not elevated. Technically suboptimal study due to poor sonographic images. Definity contrast administered improved wall motion interpretation. Left ventricular chamber dimension is normal. Left ventricular systolic function is normal, estimated at 60-65%. The left ventricular diastolic function is grade I diastolic dysfunction. Right Ventricle Right ventricular chamber dimension is not well visualized. Left Atria Left atrial chamber dimension is mildly enlarged. Right Atria Right atrial chamber dimension is not well visualized. Aortic Valve The aortic valve is trileaflet. There is no aortic valve stenosis. There is no aortic valve regurgitation. Pulmonic Valve There is no pulmonic regurgitation. Mitral Valve There is no mitral valve stenosis. There is no mitral valve regurgitation. Tricuspid Valve There is trace tricuspid valve regurgitation. No pulmonary hypertension, estimated pulmonary arterial systolic pressure is 37 mmHg. Pericardium/Pleural There is no pericardial effusion. Inferior Vena Cava Normal inferior vena cava with >50% collapse upon inspiration consistent with normal right atrial pressure, 5 mmHg. Aorta The aortic root size at the sinus of Valsalva is not well visualized. Left Ventricular Outflow Tract Name Value Normal LVOT 2D
[2023-01-31] VITALS (19 sets, daily range): BP systolic 89–142; BP diastolic 47–79; PULSE 91–108; RESP 18–24; TEMP 35.6–37.4; O2SAT 95–99
[2023-01-31] MEDS: PIPERACILLIN/TAZ 2.25G/NS 50ML 2.25 GM/50 ML BAG IVPB ×4 (00:12→13:19)
[2023-01-31 05:02] LABS: Basophils Percent Auto 0.2 % (0.2-1.2); Eosinophils Absolute Auto 0.1 K/mm3 (0-0.3); Eosinophils Percent Auto 0.4 % (0-4.4); Hematocrit 33.2 % (37.0-47.0); Hemoglobin 10.8 g/dL (12.0-15.0); Immature Granulocyte Absolute 0.18 K/mm3 (0.00-0.031); Immature Granulocyte Percent A 1.5 % (0-0.5); Lymphocytes Absolute Auto 0.73 K/mm3 (0.9-3.2); Lymphocytes Percent Auto 6.1 % (18.3-44.2); Mean Corpuscular HGB Conc 32.5 g/dl (32-36); Mean Corpuscular Hemoglobin 30.2 pg (26-34); Mean Corpuscular Volume 92.7 fl (80-100); Mean Platelet Volume 9.3 fl (7.4-10.4); Monocytes Absolute Auto 0.6 K/mm3 (0.1-0.6); Monocytes Percent Auto 5.2 % (2.6-8.5); Neutrophils Absolute Auto 10.4 K/mm3 (1.3-6.7); Neutrophils Percent Auto 86.6 % (45.5-73.1); Platelet Count Result 122 k/mm3 (150-375); Red Blood Count 3.58 M/mm3 (4.2-5.4); Red Cell Distribution Width 12.9 % (11.5-14.5); White Blood Count 12.1 K/mm3 (4.5-10.0)
[2023-01-31 05:19] LABS: Alanine Aminotransferase 39 U/L (6-35); Albumin Level 2.9 g/dL (3.5-5.1); Alkaline Phosphatase 70 U/L (38-126); Anion Gap 4 mmol/L (8-16); Aspartate Amino Transferase 87 U/L (14-36); Bilirubin,Total 0.8 mg/dL (0.2-1.3); Blood Urea Nitrogen 24 mg/dL (7-17); Calcium 7.6 mg/dL (8.4-10.2); Carbon Dioxide 34 mmol/L (22-30); Chloride 96 mmol/L (98-107); Creatine Kinase 1251 U/L (30-135); Estimated CRCL calculation 51 ml/min; Estimated Glomerular Filt Rate 37; Glucose 107 mg/dL (65-110); Magnesium 1.8 mg/dL (1.6-2.3); Potassium 2.9 mmol/L (3.4-5.0); Sodium 134 mmol/L (137-145)
[2023-01-31 05:41] LABS: CRP 40.1 mg/dL (<1.0)
[2023-01-31] MEDS: LEVOTHYROXINE SODIUM 125 MCG TABLET PO (05:57)
[2023-01-31] MEDS: ACETAMINOPHEN 325 MG TABLET 650 MG PO ×2 (08:20→20:49)
[2023-01-31] MEDS: PREGABALIN (*CRX) 75 MG CAPSULE 150 MG PO (08:22)
[2023-01-31] MEDS: HEPARIN SODIUM 5,000 UNITS/ML VIAL 5000 UNITS SUB-Q ×2 (08:22→20:50)
[2023-01-31] MEDS: CLOPIDOGREL BISULFATE 75 MG TABLET PO (08:23)
--- NOTE | 2023-01-31 12:00 | P.PNIM_ITS ---
Progress Note: A&P Assessment and Plan (1) Sepsis: Qualifiers: Acute renal failure type: with other specified pathological lesion Sepsis acute organ dysfunction status: with acute organ dysfunction Sepsis type: sepsis due to unspecified organism Severe sepsis acute organ dysfunction type: acute renal failure Severe sepsis shock status: with septic shock Qualified Code(s): A41.9 - Sepsis, unspecified organism; R65.21 - Severe sepsis with septic shock; N17.8 - Other acute kidney failure Code(s): A41.9 - Sepsis, unspecified organism Status: Acute Assessment and Plan: * Patient meets sepsis criteria with fever, hypotension, leukocytosis, lactic acidosis and acute kidney injury * source of infection appears to be a UTI, bacteremia * blood cultures are positive with Gram-negative bacilli * lactic acid 2.2 * heart rate improved * continue Zosyn at higher dose 4.5mg IV Q6H * IV hydration given the ED * Continue IV hydration at 100mL/Hr * CK is also noted to be elevated and renal failure is also noted * at this time patient meets severe sepsis criteria * Continue tele monitor (2) Urinary tract infection: Qualifiers: Hematuria presence: without hematuria Urinary tract infection type: acute cystitis Qualified Code(s): N30.00 - Acute cystitis without hematuria Code(s): N39.0 - Urinary tract infection, site not specified Status: Acute Assessment and Plan: * Continue Zosyn, * urine culture grew Ecoli * Zosyn adjusted to 4.5mg IV Q6H with improving renal function * trend urine output * adjust antibiotics to culture results (3) Acute kidney injury: Code(s): N17.9 - Acute kidney failure, unspecified Status: Acute Assessment and Plan: * BUN creatinine noted to be elevated upon arrival at 34/2.70 * current BUN and creatinine 24/1.40 * 4 L of fluid given in the ED * urine output is lagging * CK is elevated 1086, 1413, 2999, 1251 * renal ultrasound showed no acute abnormalities * strict I&Os * avoid nephrotoxic agents * FENa score indicates prerenal * continue IV fluids for now (4) Diastolic dysfunction: Code(s): I51.89 - Other ill-defined heart diseases Status: Acute Assessment and Plan: * previous echo showed diastolic dysfunction * Current Echo shows EF of 60-65% with grade 1 diastolic dysfunction, mild enlarged atriums noted * 3-4+ pitting edema * Lasix x1 on 01/30/23, 01/31/23 * chest x-ray shows mild pulmonary edema * strict I&Os * IV diuresis as indicated * trend labs * daily weights * BNP is 7640 01/30/23 (5) Rhabdomyolysis: Qualifiers: Encounter type: sequela Rhabdomyolysis type: traumatic Qualified Code(s): T79.6XXS - Traumatic ischemia of muscle, sequela Code(s): M62.82 - Rhabdomyolysis Status: Acute Assessment and Plan: * Total CK 1086/1413/2999/1251 * Trending down * continue trend CK * continue IV fluids at 100ml/hr * most likely related to recent fall (6) Hypomagnesemia: Code(s): E83.42 - Hypomagnesemia Status: Acute Assessment and Plan: * Cautious replacement of magnesium. * mg 2.0 * Continue to trend (7) Restless leg syndrome: Code(s): G25.81 - Restless legs syndrome
--- NOTE | 2023-01-31 12:00 | PM.IMPN ---
Progress Note: A&P Assessment and Plan (1) Sepsis: Qualifiers: Acute renal failure type: with other specified pathological lesion Sepsis acute organ dysfunction status: with acute organ dysfunction Sepsis type: sepsis due to unspecified organism Severe sepsis acute organ dysfunction type: acute renal failure Severe sepsis shock status: with septic shock Qualified Code(s): A41.9 - Sepsis, unspecified organism; R65.21 - Severe sepsis with septic shock; N17.8 - Other acute kidney failure Code(s): A41.9 - Sepsis, unspecified organism Status: Acute Assessment and Plan: Patient meets sepsis criteria with fever, hypotension, leukocytosis, lactic acidosis and acute kidney injury source of infection appears to be a UTI, bacteremia blood cultures are positive with Gram-negative bacilli lactic acid 2.2 heart rate improved continue Zosyn at higher dose 4.5mg IV Q6H IV hydration given the ED Continue IV hydration at 100mL/Hr CK is also noted to be elevated and renal failure is also noted at this time patient meets severe sepsis criteria Continue tele monitor (2) Urinary tract infection: Qualifiers: Hematuria presence: without hematuria Urinary tract infection type: acute cystitis Qualified Code(s): N30.00 - Acute cystitis without hematuria Code(s): N39.0 - Urinary tract infection, site not specified Status: Acute Assessment and Plan: Continue Zosyn, urine culture grew Ecoli Zosyn adjusted to 4.5mg IV Q6H with improving renal function trend urine output adjust antibiotics to culture results (3) Acute kidney injury: Code(s): N17.9 - Acute kidney failure, unspecified Status: Acute Assessment and Plan: BUN creatinine noted to be elevated upon arrival at 34/2.70 current BUN and creatinine 24/1.40 4 L of fluid given in the ED urine output is lagging CK is elevated 1086, 1413, 2999, 1251 renal ultrasound showed no acute abnormalities strict I&Os avoid nephrotoxic agents FENa score indicates prerenal continue IV fluids for now (4) Diastolic dysfunction: Code(s): I51.89 - Other ill-defined heart diseases Status: Acute Assessment and Plan: previous echo showed diastolic dysfunction Current Echo shows EF of 60-65% with grade 1 diastolic dysfunction, mild enlarged atriums noted 3-4+ pitting edema Lasix x1 on 01/30/23, 01/31/23 chest x-ray shows mild pulmonary edema strict I&Os IV diuresis as indicated trend labs daily weights BNP is 7640 01/30/23 (5) Rhabdomyolysis: Qualifiers: Encounter type: sequela Rhabdomyolysis type: traumatic Qualified Code(s): T79.6XXS - Traumatic ischemia of muscle, sequela Code(s): M62.82 - Rhabdomyolysis Status: Acute Assessment and Plan: Total CK 1086/1413/2999/1251 Trending down continue trend CK continue IV fluids at 100ml/hr most likely related to recent fall (6) Hypomagnesemia: Code(s): E83.42 - Hypomagnesemia Status: Acute Assessment and Plan: Cautious replacement of magnesium. mg 2.0 Continue to trend (7) Restless leg syndrome: Code(s): G25.81 - Restless legs syndrome Status: Acute Assessment and Plan: Continue pregabalin, nortriptyline, and ropinirole. (8) Hypothyroidism: Qualifiers: Hypothyroidism type: unspecified Qualified Code(s): E03.9 - Hypothyroidism, unspecified Code(s): E03.9 - Hypothyroidism, unspecified Status: Acute Assessment and Plan: Continue levothyroxine TSH 1.420 (9) Bacteremia: Code(s): R78.81 - Bacteremia Status: Acute Assessment and Plan: Blood cultures grew Gram-negative is bacilli Most like ecoli, related to the urine Increase Zosyn to 4.5mg IV Q6H
--- NOTE | 2023-01-31 12:14 | ECG_ITS ---
Measurements Intervals [place] Rate: 92 P: 49 CO: 212 QRS: 5 QRSD: 119 T: 40 QT: 361 QTc: 447 Interpretive Statements SINUS RHYTHM WITH FIRST DEGREE AV BLOCK VENTRICULAR PREMATURE COMPLEX INTRAVENTRICULAR CONDUCTION DELAY DELAYED PRECORDIAL R/S TRANSITION BASELINE ARTIFACT- I, III, AVL, V4 BORDERLINE ECG COMPARED TO ECG 01/29/2023 22:32:57 SINUS RHYTHM NOW PRESENT FIRST DEGREE AV BLOCK NOW PRESENT INTRAVENTRICULAR CONDUCTION DELAY NOW PRESENT Electronically Signed On 02-01-2023 7:31:10 CDT by Manan Davenport D.O.
[2023-01-31] MEDS: LACTATED RINGERS 1,000 ML 100 ML IV CONT (12:30)
[2023-01-31] MEDS: POTASSIUM CHLORIDE 20 MEQ TABLET 40 MEQ PO (13:19)
[2023-01-31] MEDS: POTASSIUM CHLORIDE INJ 40 MEQ in SODIUM CHLORIDE 0.9% IV 500 ML 130 MEQ IVPB (13:19)
[2023-01-31] MEDS: FUROSEMIDE INJ 40 MG/4 ML VIAL IV PUSH (16:51)
[2023-01-31] MEDS: PIPERACILLIN/TAZOBACTAM SOD 4.5 GM in SODIUM CHLORIDE 0.9% IV 100 ML 200 ML IVPB ×2 (18:09→23:32)
[2023-01-31] MEDS: EZETIMIBE 10 MG TABLET PO (20:50)
[2023-01-31] MEDS: NORTRIPTYLINE HCL 25 MG CAPSULE PO (20:50)
[2023-01-31] MEDS: TOLNAFTATE 1% POWDER 45 GM BTL 1 APPLIC TOPICAL (20:50)
[2023-01-31] MEDS: rOPINIRole HCL 1 MG TABLET 4 MG PO (21:11)
[2023-01-31] MEDS: HYDROcodone/acetaminophen (*CRX) 5-325 MG TABLET 1 TAB PO (22:08)
[2023-02-01] VITALS (20 sets, daily range): BP systolic 100–147; BP diastolic 54–82; PULSE 79–114; RESP 16–22; TEMP 35.8–36.8; O2SAT 93–100
[2023-02-01 03:26] LABS: Basophils Percent Auto 0.5 % (0.2-1.2); Eosinophils Absolute Auto 0.3 K/mm3 (0-0.3); Eosinophils Percent Auto 3.6 % (0-4.4); Hematocrit 34.6 % (37.0-47.0); Hemoglobin 11.3 g/dL (12.0-15.0); Immature Granulocyte Absolute 0.05 K/mm3 (0.00-0.031); Immature Granulocyte Percent A 0.6 % (0-0.5); Immature Platelet Fraction Pct 3.8 % (0.9-11.2); Lymphocytes Absolute Auto 0.82 K/mm3 (0.9-3.2); Lymphocytes Percent Auto 9.3 % (18.3-44.2); Mean Corpuscular HGB Conc 32.7 g/dl (32-36); Mean Corpuscular Hemoglobin 30.2 pg (26-34); Mean Corpuscular Volume 92.5 fl (80-100); Mean Platelet Volume 9.5 fl (7.4-10.4); Monocytes Absolute Auto 0.7 K/mm3 (0.1-0.6); Monocytes Percent Auto 7.7 % (2.6-8.5); Neutrophils Absolute Auto 6.9 K/mm3 (1.3-6.7); Neutrophils Percent Auto 78.3 % (45.5-73.1); Platelet Count Result 143 k/mm3 (150-375); Red Blood Count 3.74 M/mm3 (4.2-5.4); White Blood Count 8.8 K/mm3 (4.5-10.0)
[2023-02-01] MEDS: LACTATED RINGERS 1,000 ML 100 ML IV CONT (03:39)
[2023-02-01 03:57] LABS: Alanine Aminotransferase 53 U/L (6-35); Albumin Level 2.8 g/dL (3.5-5.1); Alkaline Phosphatase 71 U/L (38-126); Anion Gap 2 mmol/L (8-16); Aspartate Amino Transferase 100 U/L (14-36); Bilirubin,Total 0.6 mg/dL (0.2-1.3); Blood Urea Nitrogen 20 mg/dL (7-17); CRP 24.6 mg/dL (<1.0); Calcium 7.5 mg/dL (8.4-10.2); Carbon Dioxide 39 mmol/L (22-30); Chloride 95 mmol/L (98-107); Creatine Kinase 399 U/L (30-135); Estimated CRCL calculation 64 ml/min; Estimated Glomerular Filt Rate 49; Glucose 110 mg/dL (65-110); Lactate Dehydrogenase 258 U/L (120-246); Magnesium 1.6 mg/dL (1.6-2.3); Potassium 3.3 mmol/L (3.4-5.0); Sodium 136 mmol/L (137-145)
[2023-02-01] MEDS: LEVOTHYROXINE SODIUM 125 MCG TABLET PO (05:35)
[2023-02-01] MEDS: PIPERACILLIN/TAZOBACTAM SOD 4.5 GM in SODIUM CHLORIDE 0.9% IV 100 ML 200 ML IVPB ×4 (05:35→22:59)
[2023-02-01] MEDS: TOLNAFTATE 1% POWDER 45 GM BTL 1 APPLIC TOPICAL ×2 (08:36→19:55)
[2023-02-01] MEDS: PREGABALIN (*CRX) 75 MG CAPSULE 150 MG PO ×3 (08:36→17:08)
[2023-02-01] MEDS: HEPARIN SODIUM 5,000 UNITS/ML VIAL 5000 UNITS SUB-Q ×2 (08:37→19:54)
[2023-02-01] MEDS: CLOPIDOGREL BISULFATE 75 MG TABLET PO (08:37)
[2023-02-01] MEDS: ACETAMINOPHEN 325 MG TABLET 650 MG PO (08:49)
--- NOTE | 2023-02-01 09:30 | P.PNIM_ITS ---
Progress Note: A&P Assessment and Plan (1) Sepsis: Qualifiers: Sepsis type: sepsis due to unspecified organism Sepsis acute organ dysfunction status: with acute organ dysfunction Severe sepsis acute organ dysfunction type: acute renal failure Acute renal failure type: with other specified pathological lesion Severe sepsis shock status: with septic shock Qualified Code(s): A41.9 - Sepsis, unspecified organism; R65.21 - Severe sepsis with septic shock; N17.8 - Other acute kidney failure Code(s): A41.9 - Sepsis, unspecified organism Status: Acute Assessment and Plan: * Patient meets sepsis criteria with fever, hypotension, leukocytosis, lactic acidosis and acute kidney injury * source of infection appears to be a UTI * blood cultures are positive with Ecoli * lactic acid 2.2 * heart rate better in the 70-80s * continue Zosyn at the higher dose * IV hydration given the ED and can be stopped at this time * CK is better today at 399 * at this time patient meets severe sepsis criteria * Able to wean oxygen off (2) Urinary tract infection: Qualifiers: Urinary tract infection type: acute cystitis Hematuria presence: without hematuria Qualified Code(s): N30.00 - Acute cystitis without hematuria Code(s): N39.0 - Urinary tract infection, site not specified Status: Acute Assessment and Plan: * Continue Zosyn, at 4.5g * Urine culture grew Ecoli * trend urine output * adjust antibiotics to culture results (3) Acute kidney injury: Code(s): N17.9 - Acute kidney failure, unspecified Status: Acute Assessment and Plan: * BUN creatinine noted to be elevated upon arrival at 34/2.70 * current BUN and creatinine 20/1.10 * 4 L of fluid given in the ED * CK is 399 today * renal ultrasound showed no acute abnormalities * strict I&Os * avoid nephrotoxic agents * FENa score indicates prerenal * Stop IV fluids (4) Diastolic dysfunction: Code(s): I51.89 - Other ill-defined heart diseases Status: Acute Assessment and Plan: * previous echo showed diastolic dysfunction * chest x-ray shows mild pulmonary edema * Repeat xray * EF is 60 65% with a grade 1 diastolic dysfunction * strict I&Os * IV diuresis as indicated, intermittently * trend labs * daily weights * BNP is 7640, repeat in the am (5) Rhabdomyolysis: Qualifiers: Rhabdomyolysis type: traumatic Encounter type: sequela Qualified Code(s): T79.6XXS - Traumatic ischemia of muscle, sequela Code(s): M62.82 - Rhabdomyolysis Status: Acute Assessment and Plan: * Total CK is 1086. * trending up is currently 399 * continue trend CK * Stop IV fluid * most likely related to recent fall * Seems to be resolving (6) Hypomagnesemia: Code(s): E83.42 - Hypomagnesemia Status: Acute Assessment and Plan: * Cautious replacement of magnesium. * mg 2.0 * Continue to trend (7) Restless leg syndrome: Code(s): G25.81 - Restless legs syndrome Status: Acute Assessment and Plan: * Continue pregabalin, nortriptyline, and ropinirole. (8) Hypothyroidism: Qualifiers: Hypothyroidism type: unspecified Qualified Code(s): E03.9 - Hypothyroid
--- NOTE | 2023-02-01 09:30 | PM.IMPN ---
Progress Note: A&P Assessment and Plan (1) Sepsis: Qualifiers: Sepsis type: sepsis due to unspecified organism Sepsis acute organ dysfunction status: with acute organ dysfunction Severe sepsis acute organ dysfunction type: acute renal failure Acute renal failure type: with other specified pathological lesion Severe sepsis shock status: with septic shock Qualified Code(s): A41.9 - Sepsis, unspecified organism; R65.21 - Severe sepsis with septic shock; N17.8 - Other acute kidney failure Code(s): A41.9 - Sepsis, unspecified organism Status: Acute Assessment and Plan: Patient meets sepsis criteria with fever, hypotension, leukocytosis, lactic acidosis and acute kidney injury source of infection appears to be a UTI blood cultures are positive with Ecoli lactic acid 2.2 heart rate better in the 70-80s continue Zosyn at the higher dose IV hydration given the ED and can be stopped at this time CK is better today at 399 at this time patient meets severe sepsis criteria Able to wean oxygen off (2) Urinary tract infection: Qualifiers: Urinary tract infection type: acute cystitis Hematuria presence: without hematuria Qualified Code(s): N30.00 - Acute cystitis without hematuria Code(s): N39.0 - Urinary tract infection, site not specified Status: Acute Assessment and Plan: Continue Zosyn, at 4.5g Urine culture grew Ecoli trend urine output adjust antibiotics to culture results (3) Acute kidney injury: Code(s): N17.9 - Acute kidney failure, unspecified Status: Acute Assessment and Plan: BUN creatinine noted to be elevated upon arrival at 34/2.70 current BUN and creatinine 20/1.10 4 L of fluid given in the ED CK is 399 today renal ultrasound showed no acute abnormalities strict I&Os avoid nephrotoxic agents FENa score indicates prerenal Stop IV fluids (4) Diastolic dysfunction: Code(s): I51.89 - Other ill-defined heart diseases Status: Acute Assessment and Plan: previous echo showed diastolic dysfunction chest x-ray shows mild pulmonary edema Repeat xray EF is 60 65% with a grade 1 diastolic dysfunction strict I&Os IV diuresis as indicated, intermittently trend labs daily weights BNP is 7640, repeat in the am (5) Rhabdomyolysis: Qualifiers: Rhabdomyolysis type: traumatic Encounter type: sequela Qualified Code(s): T79.6XXS - Traumatic ischemia of muscle, sequela Code(s): M62.82 - Rhabdomyolysis Status: Acute Assessment and Plan: Total CK is 1086. trending up is currently 399 continue trend CK Stop IV fluid most likely related to recent fall Seems to be resolving (6) Hypomagnesemia: Code(s): E83.42 - Hypomagnesemia Status: Acute Assessment and Plan: Cautious replacement of magnesium. mg 2.0 Continue to trend (7) Restless leg syndrome: Code(s): G25.81 - Restless legs syndrome Status: Acute Assessment and Plan: Continue pregabalin, nortriptyline, and ropinirole. (8) Hypothyroidism: Qualifiers: Hypothyroidism type: unspecified Qualified Code(s): E03.9 - Hypothyroidism, unspecified Code(s): E03.9 - Hypothyroidism, unspecified Status: Acute Assessment and Plan: Continue levothyroxine TSH 1.420 (9) Bacteremia: Code(s): R78.81 - Bacteremia Status: Acute Assessment and Plan: Blood cultures grew Gram-negative is bacilli Most like ecoli, related to the urine Increase Zosyn to 4.5mg IV Q6H Repeat blood cultures NGTD Stable at this time (10) Electrolyte abnormality: Code(s): E87.8 - Other disorders of electrolyte and fluid balance, not elsewhere classified Status: Acute Assessment and Plan:
[2023-02-01] MEDS: MAGNESIUM SULF 4 GM/WATER100ML 4 GM/100 ML BAG IVPB (10:56)
[2023-02-01] MEDS: POTASSIUM CHLORIDE 20 MEQ TABLET 60 MEQ PO (10:56)
[2023-02-01] MEDS: FUROSEMIDE INJ 40 MG/4 ML VIAL IV PUSH (13:06)
--- NOTE | 2023-02-01 19:26 | PC.NURSE ---
Cardiology consulted due to runs of VTAC, last one was approximately 29 beats. Patient is otherwise ST at [address] Sagastume notified of current events. Patient does not have chest pain or any palpitations. CMP and Mag ordered. Call if Potassium or magnesium is low.
[2023-02-01] MEDS: NORTRIPTYLINE HCL 25 MG CAPSULE PO (19:54)
[2023-02-01] MEDS: rOPINIRole HCL 1 MG TABLET 4 MG PO (19:54)
[2023-02-01] MEDS: FLUTICASONE PROPIONATE 0.05% NA SPR 16 GM BTL (*BKC) 1 SPRAY NASAL (19:54)
[2023-02-01] MEDS: EZETIMIBE 10 MG TABLET PO (19:55)
[2023-02-01] MEDS: HYDROcodone/acetaminophen (*CRX) 5-325 MG TABLET 1 TAB PO (20:03)
[2023-02-01 20:40] LABS: Alanine Aminotransferase 63 U/L (6-35); Albumin Level 3.4 g/dL (3.5-5.1); Alkaline Phosphatase 96 U/L (38-126); Aspartate Amino Transferase 85 U/L (14-36); Bilirubin,Total 0.9 mg/dL (0.2-1.3); Blood Urea Nitrogen 15 mg/dL (7-17); Calcium 8.2 mg/dL (8.4-10.2); Carbon Dioxide > 40 mmol/L (22-30); Chloride 89 mmol/L (98-107); Estimated CRCL calculation 70 ml/min; Estimated Glomerular Filt Rate 55; Glucose 116 mg/dL (65-110); Magnesium 2.2 mg/dL (1.6-2.3); Potassium 3.2 mmol/L (3.4-5.0); Sodium 137 mmol/L (137-145)
--- NOTE | 2023-02-01 21:05 | ECG_ITS ---
Measurements Intervals [place] Rate: 110 P: 54 TX: 199 QRS: -1 QRSD: 113 T: 77 QT: 341 QTc: 462 Interpretive Statements SINUS OR ECTOPIC ATRIALTACHYCARDIA VENTRICULAR PREMATURE COMPLEX INTRAVENTRICULAR CONDUCTION DELAY DELAYED PRECORDIAL R/S TRANSITION BORDERLINE ST-T WAVE ABNORMALITY- HIGH LATERAL LEADS BASELINE ARTIFACT- II ABNORMAL ECG COMPARED TO ECG 01/31/2023 12:23:18 SINUS TACHYCARDIA NOW PRESENT Electronically Signed On 02-02-2023 8:05:34 CDT by Manan Davenport D.O.
[2023-02-01] MEDS: POTASSIUM CHLORIDE 20 MEQ TABLET 40 MEQ PO (21:17)
[2023-02-01 21:33] LABS: Troponin I < 0.012 ng/mL (0.000-0.034)
--- NOTE | 2023-02-01 21:38 | PC.NURSE ---
Patient had slight chest pain upon waking up, no VTAC at that time. Patient states it has since dissipated. Patient given 40 KCL for 3.2 potassium. Patient denies any complaints at this time. Alyssa FORRESTER Notified. EKG obtained and troponin is Negative. Get AM labs with CMP, MAG, CBC AND TROP I.
[2023-02-02] VITALS (20 sets, daily range): BP systolic 106–138; BP diastolic 58–89; PULSE 96–120; RESP 20–22; TEMP 35.8–36.9; O2SAT 94–98
[2023-02-02] MEDS: HYDROcodone/acetaminophen (*CRX) 5-325 MG TABLET 1 TAB PO ×2 (03:17→20:30)
[2023-02-02] MEDS: LEVOTHYROXINE SODIUM 125 MCG TABLET PO (03:17)
[2023-02-02 05:06] LABS: Basophils Percent Auto 0.3 % (0.2-1.2); Eosinophils Absolute Auto 0.4 K/mm3 (0-0.3); Eosinophils Percent Auto 6.1 % (0-4.4); Hematocrit 38.4 % (37.0-47.0); Hemoglobin 12.3 g/dL (12.0-15.0); Immature Granulocyte Absolute 0.02 K/mm3 (0.00-0.031); Immature Granulocyte Percent A 0.3 % (0-0.5); Lymphocytes Absolute Auto 0.99 K/mm3 (0.9-3.2); Lymphocytes Percent Auto 15.5 % (18.3-44.2); Mean Corpuscular Hemoglobin 29.6 pg (26-34); Mean Corpuscular Volume 92.3 fl (80-100); Mean Platelet Volume 9.7 fl (7.4-10.4); Monocytes Absolute Auto 0.6 K/mm3 (0.1-0.6); Monocytes Percent Auto 9.4 % (2.6-8.5); Neutrophils Absolute Auto 4.4 K/mm3 (1.3-6.7); Neutrophils Percent Auto 68.4 % (45.5-73.1); Platelet Count Result 143 k/mm3 (150-375); Red Blood Count 4.16 M/mm3 (4.2-5.4); White Blood Count 6.4 K/mm3 (4.5-10.0)
[2023-02-02] MEDS: PIPERACILLIN/TAZOBACTAM SOD 4.5 GM in SODIUM CHLORIDE 0.9% IV 100 ML 200 ML IVPB (05:26)
[2023-02-02 05:28] LABS: Troponin I < 0.012 ng/mL (0.000-0.034)
[2023-02-02 05:37] LABS: Alanine Aminotransferase 59 U/L (6-35); Albumin Level 3.2 g/dL (3.5-5.1); Alkaline Phosphatase 93 U/L (38-126); Aspartate Amino Transferase 79 U/L (14-36); Bilirubin,Total 0.8 mg/dL (0.2-1.3); Blood Urea Nitrogen 13 mg/dL (7-17); Calcium 8.2 mg/dL (8.4-10.2); Carbon Dioxide > 40 mmol/L (22-30); Chloride 91 mmol/L (98-107); Creatine Kinase 151 U/L (30-135); Estimated CRCL calculation 64 ml/min; Estimated Glomerular Filt Rate 49; Glucose 104 mg/dL (65-110); Magnesium 2.1 mg/dL (1.6-2.3); Potassium 3.5 mmol/L (3.4-5.0); Sodium 136 mmol/L (137-145)
[2023-02-02 06:09] LABS: Hepatitis B Surface Antigen Negative (Negative)
[2023-02-02 06:15] LABS: HAV RESULT Negative (Negative); Hepatitis B Core IgM Result Negative (Negative)
[2023-02-02 06:26] LABS: Hepatitis C Virus Antibody Negative (Negative)
[2023-02-02] MEDS: CLOPIDOGREL BISULFATE 75 MG TABLET PO (08:22)
[2023-02-02] MEDS: FLUTICASONE PROPIONATE 0.05% NA SPR 16 GM BTL (*BKC) 1 SPRAY NASAL ×2 (08:22→20:30)
[2023-02-02] MEDS: HEPARIN SODIUM 5,000 UNITS/ML VIAL 5000 UNITS SUB-Q ×2 (08:22→20:30)
[2023-02-02] MEDS: PREGABALIN (*CRX) 75 MG CAPSULE 150 MG PO ×3 (08:23→17:01)
[2023-02-02] MEDS: LORATADINE/PSEUDOEPHEDRINE (*CRX) 10/240 MG TABLET ER 24 HR 1 TAB PO (08:24)
[2023-02-02] MEDS: TOLNAFTATE 1% POWDER 45 GM BTL 1 APPLIC TOPICAL ×2 (08:25→20:31)
[2023-02-02 09:40] LABS: NT Pro B Type Natriuretic Pept 260 pg/mL (19.9-100)
--- NOTE | 2023-02-02 09:45 | P.PNIM_ITS ---
Progress Note: A&P Assessment and Plan (1) Sepsis: Qualifiers: Acute renal failure type: with other specified pathological lesion Sepsis acute organ dysfunction status: with acute organ dysfunction Sepsis type: sepsis due to unspecified organism Severe sepsis acute organ dysfunction type: acute renal failure Severe sepsis shock status: with septic shock Qualified Code(s): A41.9 - Sepsis, unspecified organism; R65.21 - Severe sepsis with septic shock; N17.8 - Other acute kidney failure Code(s): A41.9 - Sepsis, unspecified organism Status: Acute Assessment and Plan: * Patient meets sepsis criteria with fever, hypotension, leukocytosis, lactic acidosis and acute kidney injury * source of infection appears to be a UTI * blood cultures are positive with Ecoli * lactic acid 2.2 * heart rate back up to 100-110 * Change Zosyn to ampicillin for now * IV hydration given the ED and can be stopped at this time * CK is better today at 151 * at this time patient meets severe sepsis criteria * Able to wean oxygen off (2) Urinary tract infection: Qualifiers: Hematuria presence: without hematuria Urinary tract infection type: acute cystitis Qualified Code(s): N30.00 - Acute cystitis without hematuria Code(s): N39.0 - Urinary tract infection, site not specified Status: Acute Assessment and Plan: * Change Zosyn to ampicillin * Urine culture grew Ecoli * trend urine output * adjust antibiotics to culture results (3) Acute kidney injury: Code(s): N17.9 - Acute kidney failure, unspecified Status: Acute Assessment and Plan: * BUN creatinine noted to be elevated upon arrival at 34/2.70 * current BUN and creatinine 13/1.10 * 4 L of fluid given in the ED * CK is 151 today * renal ultrasound showed no acute abnormalities * strict I&Os * avoid nephrotoxic agents * FENa score indicates prerenal * Stop IV fluids (4) Diastolic dysfunction: Code(s): I51.89 - Other ill-defined heart diseases Status: Acute Assessment and Plan: * previous echo showed diastolic dysfunction * chest x-ray shows mild pulmonary edema * Repeat xray better pulmonary edema * EF is 60-65% with a grade 1 diastolic dysfunction * strict I&Os * IV diuresis as indicated, intermittently * trend labs * daily weights * BNP is 7640, 260 (5) Rhabdomyolysis: Qualifiers: Encounter type: sequela Rhabdomyolysis type: traumatic Qualified Code(s): T79.6XXS - Traumatic ischemia of muscle, sequela Code(s): M62.82 - Rhabdomyolysis Status: Acute Assessment and Plan: * Total CK is 1086. * trending up is currently 151 * continue trend CK * Stop IV fluid * most likely related to recent fall * Seems to be resolving (6) Hypomagnesemia: Code(s): E83.42 - Hypomagnesemia Status: Acute Assessment and Plan: * Cautious replacement of magnesium. * mg 2.1 * Continue to trend (7) Restless leg syndrome: Code(s): G25.81 - Restless legs syndrome Status: Acute Assessment and Plan: * Continue pregabalin, nortriptyline, and ropinirole. (8) Hypothyroidism: Qualifiers: Hypothyroidism type: unspecified Qualified Code(s): E03.9 -
--- NOTE | 2023-02-02 09:45 | PM.IMPN ---
Progress Note: A&P Assessment and Plan (1) Sepsis: Qualifiers: Acute renal failure type: with other specified pathological lesion Sepsis acute organ dysfunction status: with acute organ dysfunction Sepsis type: sepsis due to unspecified organism Severe sepsis acute organ dysfunction type: acute renal failure Severe sepsis shock status: with septic shock Qualified Code(s): A41.9 - Sepsis, unspecified organism; R65.21 - Severe sepsis with septic shock; N17.8 - Other acute kidney failure Code(s): A41.9 - Sepsis, unspecified organism Status: Acute Assessment and Plan: Patient meets sepsis criteria with fever, hypotension, leukocytosis, lactic acidosis and acute kidney injury source of infection appears to be a UTI blood cultures are positive with Ecoli lactic acid 2.2 heart rate back up to 100-110 Change Zosyn to ampicillin for now IV hydration given the ED and can be stopped at this time CK is better today at 151 at this time patient meets severe sepsis criteria Able to wean oxygen off (2) Urinary tract infection: Qualifiers: Hematuria presence: without hematuria Urinary tract infection type: acute cystitis Qualified Code(s): N30.00 - Acute cystitis without hematuria Code(s): N39.0 - Urinary tract infection, site not specified Status: Acute Assessment and Plan: Change Zosyn to ampicillin Urine culture grew Ecoli trend urine output adjust antibiotics to culture results (3) Acute kidney injury: Code(s): N17.9 - Acute kidney failure, unspecified Status: Acute Assessment and Plan: BUN creatinine noted to be elevated upon arrival at 34/2.70 current BUN and creatinine 13/1.10 4 L of fluid given in the ED CK is 151 today renal ultrasound showed no acute abnormalities strict I&Os avoid nephrotoxic agents FENa score indicates prerenal Stop IV fluids (4) Diastolic dysfunction: Code(s): I51.89 - Other ill-defined heart diseases Status: Acute Assessment and Plan: previous echo showed diastolic dysfunction chest x-ray shows mild pulmonary edema Repeat xray better pulmonary edema EF is 60-65% with a grade 1 diastolic dysfunction strict I&Os IV diuresis as indicated, intermittently trend labs daily weights BNP is 7640, 260 (5) Rhabdomyolysis: Qualifiers: Encounter type: sequela Rhabdomyolysis type: traumatic Qualified Code(s): T79.6XXS - Traumatic ischemia of muscle, sequela Code(s): M62.82 - Rhabdomyolysis Status: Acute Assessment and Plan: Total CK is 1086. trending up is currently 151 continue trend CK Stop IV fluid most likely related to recent fall Seems to be resolving (6) Hypomagnesemia: Code(s): E83.42 - Hypomagnesemia Status: Acute Assessment and Plan: Cautious replacement of magnesium. mg 2.1 Continue to trend (7) Restless leg syndrome: Code(s): G25.81 - Restless legs syndrome Status: Acute Assessment and Plan: Continue pregabalin, nortriptyline, and ropinirole. (8) Hypothyroidism: Qualifiers: Hypothyroidism type: unspecified Qualified Code(s): E03.9 - Hypothyroidism, unspecified Code(s): E03.9 - Hypothyroidism, unspecified Status: Acute Assessment and Plan: Continue levothyroxine TSH 1.420 (9) Bacteremia: Code(s): R78.81 - Bacteremia Status: Acute Assessment and Plan: Blood cultures grew Gram-negative is bacilli Most like ecoli, related to the urine Change Zosyn to ampicillin or now Repeat blood cultures NGTD Stable at this time (10) Electrolyte abnormality: Code(s): E87.8 - Other disorders of electrolyte and fluid balance, not elsewhere classified Status: Acute
[2023-02-02] MEDS: POTASSIUM CHLORIDE 20 MEQ TABLET 40 MEQ PO (10:54)
--- NOTE | 2023-02-02 12:14 | ECG_ITS ---
Measurements Intervals [place] Rate: 103 P: 11 HI: 156 QRS: -12 QRSD: 105 T: 61 QT: 345 QTc: 452 Interpretive Statements SINUS TACHYCARDIA DELAYED PRECORDIAL R/S TRANSITION BORDERLINE ECG COMPARED TO ECG 02/01/2023 21:11:18 NO SIGNIFICANT CHANGES Electronically Signed On 02-02-2023 14:05:43 CDT by Manan Davenport D.O.
[2023-02-02] MEDS: METOPROLOL TARTRATE 12.5 MG TABLET PO ×2 (12:45→20:30)
[2023-02-02] MEDS: AMPICILLIN 2 GM/NS 100 ML 2 GM/100 ML BAG IVPB ×3 (12:45→23:34)
--- NOTE | 2023-02-02 15:16 | PCCCNOTE ---
On 02/02/23, the student, [Lyssa Bond], provided care and completed [facility] documentation on this patient. I have reviewed the student's documentation and agree with the findings.
--- NOTE | 2023-02-02 16:17 | PM.CNCAR ---
Assessment and Plan Assessment and plan (1) PSVT (paroxysmal supraventricular tachycardia): Code(s): I47.1 - Supraventricular tachycardia Status: Acute Assessment and Plan: Reviewed telemetry appears more consistent with aberrantly conducted SVT with right bundle-branch morphology as opposed to nonsustained ventricular tachycardia. Nonetheless, due to ensure adequate hydration as clinically patient has quite dry oral mucosa despite lower extremity edema. Need to replete electrolytes and monitor closely. Keep potassium and magnesium around 4.0 and 2.0 respectively. Will initiate metoprolol tartrate 12.5 mg twice daily to ensure BP tolerance and up titrate as appropriate to suppress SVT recurrence and observe heart rate response. No indication for systemic anticoagulation at this time. No documented atrial fibrillation/flutter. Given normal LV function the less likely she has recurrent runs of ventricular tachycardia particularly given RBBB morphology likely aberrantly conducted SVT. Continue telemetry. Recommendations to follow. Discussed at length with the patient. (2) Tachycardia: Code(s): R00.0 - Tachycardia, unspecified Status: Acute Assessment and Plan: Patient appears to be fairly persistently tachycardic worse over the past 18 hours. Review of ECG telemetry suggestive of sinus tachycardia, however, given persistent tachycardia cannot exclude atrial tachycardia. Intravascular volume depletion will exacerbate tachycardia. Therefore, I would hold off on additional diuretic at this time particularly as she appears to be rather dry on exam. I have strongly encouraged her to hydrate. As above, will observe response with addition of beta-martinez therapy. Heart rate improves this will be more suggestive sinus bradycardia and if there is no change perhaps more consistent with atrial tachycardia. However, given the fact that with episodes of SVT once this terminates she returns to the same rate which would argue against atrial tachycardia as would be highly unlikely for atrial tachycardia to be interrupted by SVT only to return to a baseline atrial tachycardia on repeated basis. Therefore, I suspect her sinus tachycardia is compensatory and therefore general medical management regarding her deconditioning secondary to acute illness, resolving rhabdomyolysis and acute kidney injury, dehydration. Continue to monitor respiratory status although she has not hypoxic on room air. PT OT. 2D echocardiogram reveals preserved LV systolic function. (3) Bacteremia: Code(s): R78.81 - Bacteremia Status: Acute Assessment and Plan: E coli bacteremia in setting of E coli UTI. Leukocytosis has resolved, she remains afebrile and renal function has normalized. Continue supportive care, antibiotics per primary service. Patient was critically ill although improving remains complicated. (4) Acute kidney injury: Code(s): N17.9 - Acute kidney failure, unspecified Status: Acute Assessment and Plan: As above, acute kidney injury related to intravascular volume depletion, bacteremia, UTI, rhabdomyolysis improved with IV fluids (5) Sepsis: Qualifiers: Sepsis type: sepsis due to unspecified organism Sepsis acute organ dysfunction status: with acute organ dysfunction Severe sepsis acute organ dysfunction type: acute renal failure Acute renal failure type: with other specified pathological lesion Severe sepsis shock status: with septic shock Qualified Code(s): A41.9 - Sepsis, unspecified organism; R65.21 - Severe sepsis with septic shock; N17.8 - Other acute kidney failure Code(s): A41.9 - Sepsis, unspecified organism Status: Acute Assessment and Plan: Continue supportive care antibiotics, nutritional support. (6) Urinary tract infection: Qualifiers: Urinary tract infection type: acute cystitis Hematuria presence: without hematuria Qualified Code(s):
[2023-02-02] MEDS: EZETIMIBE 10 MG TABLET PO (20:30)
[2023-02-02] MEDS: NORTRIPTYLINE HCL 25 MG CAPSULE PO (20:30)
[2023-02-02] MEDS: rOPINIRole HCL 1 MG TABLET 4 MG PO (20:30)
[2023-02-03] VITALS (16 sets, daily range): BP systolic 124–168; BP diastolic 61–101; PULSE 95–112; RESP 18–20; TEMP 36.1–36.6; O2SAT 94–99
[2023-02-03 05:07] LABS: Basophils Percent Auto 0.5 % (0.2-1.2); Eosinophils Absolute Auto 0.2 K/mm3 (0-0.3); Hematocrit 38.5 % (37.0-47.0); Hemoglobin 12.2 g/dL (12.0-15.0); Immature Granulocyte Absolute 0.05 K/mm3 (0.00-0.031); Immature Granulocyte Percent A 0.9 % (0-0.5); Lymphocytes Absolute Auto 1.13 K/mm3 (0.9-3.2); Lymphocytes Percent Auto 20.3 % (18.3-44.2); Mean Corpuscular HGB Conc 31.7 g/dl (32-36); Mean Corpuscular Hemoglobin 30.1 pg (26-34); Mean Corpuscular Volume 95.1 fl (80-100); Mean Platelet Volume 9.8 fl (7.4-10.4); Monocytes Absolute Auto 0.5 K/mm3 (0.1-0.6); Monocytes Percent Auto 9.7 % (2.6-8.5); Neutrophils Absolute Auto 3.6 K/mm3 (1.3-6.7); Neutrophils Percent Auto 64.6 % (45.5-73.1); Platelet Count Result 162 k/mm3 (150-375); Red Blood Count 4.05 M/mm3 (4.2-5.4); Red Cell Distribution Width 13.2 % (11.5-14.5); White Blood Count 5.6 K/mm3 (4.5-10.0)
[2023-02-03 05:15] LABS: Alanine Aminotransferase 60 U/L (6-35); Albumin Level 3.2 g/dL (3.5-5.1); Alkaline Phosphatase 99 U/L (38-126); Aspartate Amino Transferase 76 U/L (14-36); Bilirubin,Total 0.6 mg/dL (0.2-1.3); Blood Urea Nitrogen 12 mg/dL (7-17); Calcium 8.4 mg/dL (8.4-10.2); Carbon Dioxide > 40 mmol/L (22-30); Chloride 97 mmol/L (98-107); Estimated CRCL calculation 69 ml/min; Estimated Glomerular Filt Rate 55; Glucose 114 mg/dL (65-110); Magnesium 2.1 mg/dL (1.6-2.3); Potassium 3.7 mmol/L (3.4-5.0); Sodium 138 mmol/L (137-145)
[2023-02-03] MEDS: LEVOTHYROXINE SODIUM 125 MCG TABLET PO (05:16)
[2023-02-03] MEDS: AMPICILLIN 2 GM/NS 100 ML 2 GM/100 ML BAG IVPB ×4 (05:16→23:23)
[2023-02-03] MEDS: ACETAMINOPHEN 325 MG TABLET 650 MG PO (05:22)
[2023-02-03] MEDS: METOPROLOL TARTRATE 12.5 MG TABLET PO ×2 (09:17→20:55)
[2023-02-03] MEDS: LORATADINE/PSEUDOEPHEDRINE (*CRX) 10/240 MG TABLET ER 24 HR 1 TAB PO (09:17)
[2023-02-03] MEDS: HEPARIN SODIUM 5,000 UNITS/ML VIAL 5000 UNITS SUB-Q ×2 (09:17→20:54)
[2023-02-03] MEDS: FLUTICASONE PROPIONATE 0.05% NA SPR 16 GM BTL (*BKC) 1 SPRAY NASAL ×2 (09:17→20:55)
[2023-02-03] MEDS: TOLNAFTATE 1% POWDER 45 GM BTL 1 APPLIC TOPICAL ×2 (09:17→20:55)
[2023-02-03] MEDS: PREGABALIN (*CRX) 75 MG CAPSULE 150 MG PO ×3 (09:17→18:37)
[2023-02-03] MEDS: CLOPIDOGREL BISULFATE 75 MG TABLET PO (09:17)
[2023-02-03] MEDS: SALINE LOCK FLUSH 10 ML IV PUSH ×2 (12:03→20:55)
--- NOTE | 2023-02-03 15:44 | P.PNIM_ITS ---
Progress Note: A&P Assessment and Plan (1) Sepsis: Qualifiers: Sepsis type: sepsis due to unspecified organism Sepsis acute organ dysfunction status: with acute organ dysfunction Severe sepsis acute organ dysfunction type: acute renal failure Acute renal failure type: with other specified pathological lesion Severe sepsis shock status: with septic shock Qualified Code(s): A41.9 - Sepsis, unspecified organism; R65.21 - Severe sepsis with septic shock; N17.8 - Other acute kidney failure Code(s): A41.9 - Sepsis, unspecified organism Status: Resolved Assessment and Plan: Patient meets sepsis criteria with fever, hypotension, leukocytosis, lactic acidosis and acute kidney injury. Source of infection appears to be a UTI. Blood cultures are positive with Ecoli * lactic acid 2.2 * heart rate back up to 100-110 * Change Zosyn to ampicillin for now * IV hydration given the ED and can be stopped at this time * rhabdomyolysis resolved * Able to wean oxygen off sepsis has resolved. (2) Urinary tract infection: Qualifiers: Urinary tract infection type: acute cystitis Hematuria presence: without hematuria Qualified Code(s): N30.00 - Acute cystitis without hematuria Code(s): N39.0 - Urinary tract infection, site not specified Status: Acute Assessment and Plan: * Change Zosyn to ampicillin * Urine culture grew Ecoli * trend urine output * adjust antibiotics to culture results * Patient will likely go home on p.o. antibiotics. (3) Acute kidney injury: Code(s): N17.9 - Acute kidney failure, unspecified Status: Resolved Assessment and Plan: * BUN creatinine noted to be elevated upon arrival at 34/2.70 * 4 L of fluid given in the ED * CK is 151 * renal ultrasound showed no acute abnormalities * strict I&Os * avoid nephrotoxic agents * FENa score indicates prerenal * Stop IV fluids Resolved - back to baseline (4) Diastolic dysfunction: Code(s): I51.89 - Other ill-defined heart diseases Status: Acute Assessment and Plan: * previous echo showed diastolic dysfunction * chest x-ray shows mild pulmonary edema * Repeat x-ray better pulmonary edema * EF is 60-65% with a grade 1 diastolic dysfunction * strict I&Os * IV diuresis as indicated, intermittently * trend labs * daily weights * BNP is 7640, 260 (5) Rhabdomyolysis: Qualifiers: Rhabdomyolysis type: traumatic Encounter type: sequela Qualified Code(s): T79.6XXS - Traumatic ischemia of muscle, sequela Code(s): M62.82 - Rhabdomyolysis Status: Resolved Assessment and Plan: * Total CK 2999 on admission * CK at 151, resolved * continue trend CK * Stop IV fluid * most likely related to recent fall (6) Hypomagnesemia: Code(s): E83.42 - Hypomagnesemia Status: Acute Assessment and Plan: * Cautious replacement of magnesium. * mg 2.1 * Continue to trend (7) Restless leg syndrome: Code(s): G25.81 - Restless legs syndrome Status: Acute Assessment and Plan: * Continue pregabalin, nortriptyline, and ropinirole. (8) Hypothyroidism: Qualifiers: Hypothyroidism type: unspecified Qualified Code(s): E03.9 - Hypothyroidism, unspecified
[2023-02-03 18:17] LABS: Osmolality, Urine 458 mOsm/kg (50-1200)
[2023-02-03] MEDS: rOPINIRole HCL 1 MG TABLET 4 MG PO (20:54)
[2023-02-03] MEDS: HYDROcodone/acetaminophen (*CRX) 5-325 MG TABLET 1 TAB PO (20:54)
[2023-02-03] MEDS: NORTRIPTYLINE HCL 25 MG CAPSULE PO (20:55)
[2023-02-03] MEDS: EZETIMIBE 10 MG TABLET PO (20:55)
[2023-02-04] VITALS (9 sets, daily range): BP systolic 146–162; BP diastolic 65–88; PULSE 90–107; RESP 18; TEMP 36.4–36.6; O2SAT 94–96
--- NOTE | 2023-02-04 01:56 | PC.NURSE ---
Report given to Deirdre MARCOS. All belongings gathered as well as chart and medications. Patient to room 348.
--- NOTE | 2023-02-04 02:03 | PC.NURSE ---
This patient, Gilma Mills, was received from [ See MARCOS] on 02/04/23 at 0203. Patient/family oriented to unit policies and routines
[2023-02-04] MEDS: ACETAMINOPHEN 325 MG TABLET 650 MG PO (02:40)
[2023-02-04 06:07] LABS: Alanine Aminotransferase 54 U/L (6-35); Albumin Level 3.4 g/dL (3.5-5.1); Alkaline Phosphatase 95 U/L (38-126); Anion Gap 3 mmol/L (8-16); Aspartate Amino Transferase 60 U/L (14-36); Basophils Percent Auto 0.6 % (0.2-1.2); Bilirubin,Total 0.6 mg/dL (0.2-1.3); Blood Urea Nitrogen 10 mg/dL (7-17); Calcium 8.7 mg/dL (8.4-10.2); Carbon Dioxide 34 mmol/L (22-30); Chloride 100 mmol/L (98-107); Eosinophils Absolute Auto 0.2 K/mm3 (0-0.3); Eosinophils Percent Auto 4.2 % (0-4.4); Estimated CRCL calculation 69 ml/min; Estimated Glomerular Filt Rate 55; Glucose 100 mg/dL (65-110); Hematocrit 39.2 % (37.0-47.0); Hemoglobin 12.4 g/dL (12.0-15.0); Immature Granulocyte Absolute 0.06 K/mm3 (0.00-0.031); Immature Granulocyte Percent A 1.1 % (0-0.5); Lymphocytes Absolute Auto 1.34 K/mm3 (0.9-3.2); Lymphocytes Percent Auto 25.5 % (18.3-44.2); Mean Corpuscular HGB Conc 31.6 g/dl (32-36); Mean Corpuscular Volume 94.7 fl (80-100); Mean Platelet Volume 9.8 fl (7.4-10.4); Monocytes Absolute Auto 0.5 K/mm3 (0.1-0.6); Monocytes Percent Auto 9.5 % (2.6-8.5); Neutrophils Absolute Auto 3.1 K/mm3 (1.3-6.7); Neutrophils Percent Auto 59.1 % (45.5-73.1); Platelet Count Result 206 k/mm3 (150-375); Potassium 3.6 mmol/L (3.4-5.0); Red Blood Count 4.14 M/mm3 (4.2-5.4); Red Cell Distribution Width 13.3 % (11.5-14.5); Sodium 137 mmol/L (137-145); White Blood Count 5.3 K/mm3 (4.5-10.0)
[2023-02-04] MEDS: SALINE LOCK FLUSH 10 ML IV PUSH ×2 (06:26→13:05)
[2023-02-04] MEDS: AMPICILLIN 2 GM/NS 100 ML 2 GM/100 ML BAG IVPB ×2 (06:26→13:05)
[2023-02-04] MEDS: LEVOTHYROXINE SODIUM 125 MCG TABLET PO (06:27)
[2023-02-04] MEDS: PREGABALIN (*CRX) 75 MG CAPSULE 150 MG PO ×2 (08:37→13:06)
[2023-02-04] MEDS: CLOPIDOGREL BISULFATE 75 MG TABLET PO (08:37)
[2023-02-04] MEDS: FLUTICASONE PROPIONATE 0.05% NA SPR 16 GM BTL (*BKC) 1 SPRAY NASAL (08:37)
[2023-02-04] MEDS: HEPARIN SODIUM 5,000 UNITS/ML VIAL 5000 UNITS SUB-Q (08:37)
[2023-02-04] MEDS: METOPROLOL TARTRATE 12.5 MG TABLET PO (08:37)
[2023-02-04] MEDS: LORATADINE/PSEUDOEPHEDRINE (*CRX) 10/240 MG TABLET ER 24 HR 1 TAB PO (08:37)
[2023-02-04] MEDS: TOLNAFTATE 1% POWDER 45 GM BTL 1 APPLIC TOPICAL (08:38)
[2023-02-04] MEDS: HYDROcodone/acetaminophen (*CRX) 5-325 MG TABLET 1 TAB PO (11:51)
--- NOTE | 2023-02-04 15:15 | PM.DS ---
DS: Admitting Diagnosis Discharge Date 02/04/23 Admitting Diagnosis UTI DS: Discharge Diagnosis Discharge Diagnosis (1) Sepsis: Qualifiers: Sepsis type: sepsis due to unspecified organism Sepsis acute organ dysfunction status: with acute organ dysfunction Severe sepsis acute organ dysfunction type: acute renal failure Acute renal failure type: with other specified pathological lesion Severe sepsis shock status: with septic shock Qualified Code(s): A41.9 - Sepsis, unspecified organism; R65.21 - Severe sepsis with septic shock; N17.8 - Other acute kidney failure Code(s): A41.9 - Sepsis, unspecified organism Status: Resolved Assessment and Plan: Patient meets sepsis criteria with fever, hypotension, leukocytosis, lactic acidosis and acute kidney injury. Source of infection appears to be a UTI. Blood cultures are positive with Ecoli lactic acid 2.2 heart rate back up to 100-110 Change Zosyn to ampicillin for now IV hydration given the ED and can be stopped at this time rhabdomyolysis resolved Able to wean oxygen off sepsis has resolved. (2) Urinary tract infection: Qualifiers: Urinary tract infection type: acute cystitis Hematuria presence: without hematuria Qualified Code(s): N30.00 - Acute cystitis without hematuria Code(s): N39.0 - Urinary tract infection, site not specified Status: Acute Assessment and Plan: Change Zosyn to ampicillin Urine culture grew Ecoli trend urine output adjust antibiotics to culture results Patient will likely go home on p.o. antibiotics. (3) Acute kidney injury: Code(s): N17.9 - Acute kidney failure, unspecified Status: Resolved Assessment and Plan: BUN creatinine noted to be elevated upon arrival at 34/2.70 4 L of fluid given in the ED CK is 151 renal ultrasound showed no acute abnormalities strict I&Os avoid nephrotoxic agents FENa score indicates prerenal Stop IV fluids Resolved - back to baseline (4) Diastolic dysfunction: Code(s): I51.89 - Other ill-defined heart diseases Status: Acute Assessment and Plan: previous echo showed diastolic dysfunction chest x-ray shows mild pulmonary edema Repeat x-ray better pulmonary edema EF is 60-65% with a grade 1 diastolic dysfunction strict I&Os IV diuresis as indicated, intermittently trend labs daily weights BNP is 7640, 260 (5) Rhabdomyolysis: Qualifiers: Rhabdomyolysis type: traumatic Encounter type: sequela Qualified Code(s): T79.6XXS - Traumatic ischemia of muscle, sequela Code(s): M62.82 - Rhabdomyolysis Status: Resolved Assessment and Plan: Total CK 2999 on admission CK at 151, resolved continue trend CK Stop IV fluid most likely related to recent fall (6) Hypomagnesemia: Code(s): E83.42 - Hypomagnesemia Status: Acute Assessment and Plan: Cautious replacement of magnesium. mg 2.1 Continue to trend (7) Restless leg syndrome: Code(s): G25.81 - Restless legs syndrome Status: Acute Assessment and Plan: Continue pregabalin, nortriptyline, and ropinirole. (8) Hypothyroidism: Qualifiers: Hypothyroidism type: unspecified Qualified Code(s): E03.9 - Hypothyroidism, unspecified Code(s): E03.9 - Hypothyroidism, unspecified Status: Acute Assessment and Plan: Continue levothyroxine TSH 1.420 (9) Bacteremia: Code(s): R78.81 - Bacteremia Status: Acute Assessment and Plan: Blood cultures grew Gram-negative is bacilli Most like ecoli, related to the urine Change Zosyn to ampicillin or now Repeat blood cultures NGTD Stable at this time (10) Electrolyte abnormality: Code(s): E87.8 - Other disorders of electro
== END 2023-02-04 17:22 | disposition home health service (06) | DRG 872 ==
LOC: ANHED 13:56 → ANHIMU 18:04 → ANH3MED 02-04 17:04 → ANHIMU 02-05 13:47
PROVIDERS: Emergency Medicine; Nurse Practitioner; Physician Assistant; Admitting Provider Family Medicine; Emergency Provider Emergency Medicine; PCP Internal Medicine; Visit Provider Internal Medicine Critical Care Medicine
DX: A41.51 Sepsis due to Escherichia coli [E. coli] (principal); N39.0 Urinary tract infection, site not specified; N17.8 Other acute kidney failure; Z68.41 Body mass index [BMI] 40.0-44.9, adult; I47.1 Supraventricular tachycardia; T79.6XXA Traumatic ischemia of muscle, initial encounter; W01.198A Fall on same level from slipping, tripping and stumbling with subsequent striking against other object, initial encounter; I51.89 Other ill-defined heart diseases; Z20.822 Contact with and (suspected) exposure to COVID-19; E03.9 Hypothyroidism, unspecified; N39.3 Stress incontinence (female) (male); E66.01 Morbid (severe) obesity due to excess calories; G25.81 Restless legs syndrome; E83.42 Hypomagnesemia; I25.10 Atherosclerotic heart disease of native coronary artery without angina pectoris; Z86.73 Personal history of transient ischemic attack (TIA), and cerebral infarction without residual deficits; Z96.653 Presence of artificial knee joint, bilateral
CPT/HCPCS: 36415; 36569; 51702; 70450; 71045; 76775; 80048; 80053; 80074; 81001; 82550; 82570; 83605; 83615; 83735; 83880; 83935; 84100; 84133; 84300; 84443; 84484; 84540; 85025; 85055; 85610; 85730; 86140; 87040; 87077; 87081; 87086; 87186; 87636; 93005; 93970; 96365; 96367; 96368; 97110; 97116; 97162; 97165; 97530; 97535; 99285; A9270; C1751; C8929; J0131; J0290; J1644; J1940; J2543; J3370; J3475; J3480; J7040; J7120; Q9957

== ENCOUNTER 2023-03-04 19:57 | Observation (INO) | payer MEDICARE, SELFPAY ==
[2023-03-04] VITALS (21 sets, daily range): BP systolic 125–150; BP diastolic 58–79; PULSE 91–112; RESP 9–25; O2SAT 94–100
--- NOTE | ~2023-03-04 | XR_ITS ---
EXAMINATION: XR chest 1V portable Exam Date/Time: 03/04/2023 20:30 CDT HISTORY: CP/SOB Comparison: 02/01/2023. RESULT: Lines, tubes, and devices: None. Lungs and pleura: Slightly low volumes with crowding. Senescent changes. Cardiomediastinal silhouette: Stable. Calcified right hilar node. Other: No acute osseous or upper abdominal finding. IMPRESSION: No acute cardiopulmonary process. Reviewed, dictated and finalized at location K.
--- NOTE | ~2023-03-04 | CT_ITS ---
EXAMINATION: CTA chest PE protocol DATE: 03/04/2023 21:51 INDICATION: Chest pain elevated d-dimer TECHNIQUE: Computed tomography angiography (CTA) of the chest was performed with 100 mL Omnipaque-350 intravenous contrast timed to evaluate the pulmonary arteries. Coronal maximum intensity projection 3D-reconstructions were created by the technologist. The dose-length product (DLP) was 868.56 mGy-cm. Automated exposure control and iterative reconstruction technique were employed. COMPARISON: 12/02/2022. FINDINGS: Lung parenchyma and airways: Scattered sub-6 mm pulmonary nodules. Pleura: Unremarkable. Thoracic inlet, axillae and chest wall: Unremarkable. Thoracic aorta: Mild arch calcification. Mediastinum: Dilated central pulmonary arteries as can be seen with pulmonary arterial hypertension. Small hiatal hernia. Heart and pericardium: Normal. Coronary artery calcifications: Mild. Upper abdomen: No significant finding. Bones: Inferior endplate irregularity at T12, with disc invagination, and cortical fracture/sclerosis . Partially visualized, uncomplicated appearing right shoulder arthroplasty Pulmonary arteries: Study quality: Adequate. No pulmonary emboli detected. IMPRESSION: 1. No CT evidence of acute pulmonary embolus. 2. Multiple sub-6 mm pulmonary nodules, requiring no additional workup unless the patient is at high risk, in which case consider an optional low-dose noncontrast CT of the chest in one year. 3. Possibly subacute inferior endplate fracture at T12, new since the comparison study, correlate wit h pain/tenderness. Reviewed, dictated and finalized at location K. IMPRESSION: 1. No CT evidence of acute pulmonary embolus. 2. Multiple sub-6 mm pulmonary nodules, requiring no additional workup unless t he patient is at high risk, in which case consider an optional low-dose noncont rast CT of the chest in one year. 3. Possibly subacute inferior endplate fracture at T12, new since the compariso n study, correlate with pain/tenderness.
--- NOTE | ~2023-03-04 | US_ITS ---
EXAMINATION: US venous doppler [facility] DATE: 03/05/2023 14:52 INDICATION: Lower limb pain, edema. TECHNIQUE: Grayscale images without and with compression and Doppler images of the bilateral lower ex tremity veins were obtained. COMPARISON: None FINDINGS: Limited visualization of the peroneal veins due to edema. The right common femoral vein, profunda (de ep) femoral vein, femoral vein, popliteal vein, posterior tibial veins, gastrocnemius vein, and great er saphenous vein are patent. Limited visualization of the peroneal veins due to edema. The left common femoral vein, profunda (alycia p) femoral vein, femoral vein, popliteal vein, posterior tibial veins, gastrocnemius vein, and great er saphenous vein are patent. IMPRESSION: 1. Limited visualization of the peroneal veins. 2. Otherwise patent bilateral lower extremity veins. No evidence of deep venous thrombosis in the vis ualized veins. Reviewed, dictated and finalized at location K. IMPRESSION: 1. Limited visualization of the peroneal veins. 2. Otherwise patent bilateral lower extremity veins. No evidence of deep venous thrombosis in the visualized veins.
--- NOTE | ~2023-03-04 | NM_ITS ---
EXAMINATION: NM vanessa stress w perfusion DATE: 03/06/2023 13:35 INDICATION: Chest pain TECHNIQUE: Rest images were obtained following intravenous administration of 9.1 mCi Tc99m tetrofosmi n (Myoview). The patient was infused intravenously with Lexiscan (Regadenoson). Then, 28.8 mCi Tc99m tetrofosmin (Myoview) was administered intravenously, and stress images were obtained. Data was recon structed into short axis and horizontal and vertical long axis SPECT images. Gated SPECT images were also obtained. COMPARISON: None. FINDINGS: There is no definite reversible or fixed perfusion abnormality to suggest ischemia or infar ction. There is normal left ventricular chamber size, wall motion and ejection fraction. Left ventr icular ejection fraction measures >70%. IMPRESSION: 1. Normal myocardial perfusion at rest and during stress. 2. Left ventricular ejection fraction measuring >70%. Reviewed, dictated and finalized at location A.
--- NOTE | 2023-03-04 20:03 | ECG_ITS ---
Measurements Intervals [place] Rate: 94 P: 48 [place]: 220 QRS: -7 QRSD: 107 T: 63 QT: 360 QTc: 452 Interpretive Statements SINUS RHYTHM WITH FIRST DEGREE AV BLOCK COMPARED TO ECG 02/02/2023 13:55:29 SINUS RHYTHM NOW PRESENT FIRST DEGREE AV BLOCK NOW PRESENT Electronically Signed On 03-05-2023 13:17:15 CDT by Patricia Garcia M.D.
[2023-03-04] MEDS: ASPIRIN 81 MG CHEWABLE TABLET 324 MG PO (20:11)
[2023-03-04 20:12] LABS: Basophils Absolute Auto 0.1 K/mm3 (0.0-0.1); Basophils Percent Auto 0.9 % (0.2-1.2); Eosinophils Absolute Auto 0.5 K/mm3 (0-0.3); Eosinophils Percent Auto 6.7 % (0-4.4); Hematocrit 42.3 % (37.0-47.0); Hemoglobin 13.6 g/dL (12.0-15.0); Immature Granulocyte Absolute 0.02 K/mm3 (0.00-0.031); Immature Granulocyte Percent A 0.3 % (0-0.5); Lymphocytes Absolute Auto 1.67 K/mm3 (0.9-3.2); Lymphocytes Percent Auto 23.7 % (18.3-44.2); Mean Corpuscular HGB Conc 32.2 g/dl (32-36); Mean Corpuscular Hemoglobin 30.1 pg (26-34); Mean Corpuscular Volume 93.6 fl (80-100); Mean Platelet Volume 8.9 fl (7.4-10.4); Monocytes Absolute Auto 0.4 K/mm3 (0.1-0.6); Monocytes Percent Auto 6.3 % (2.6-8.5); Neutrophils Absolute Auto 4.4 K/mm3 (1.3-6.7); Neutrophils Percent Auto 62.1 % (45.5-73.1); Platelet Count Result 252 k/mm3 (150-375); Red Blood Count 4.52 M/mm3 (4.2-5.4); Red Cell Distribution Width 13.2 % (11.5-14.5)
[2023-03-04 20:23] LABS: Alanine Aminotransferase 25 U/L (6-35); Albumin Level 4.2 g/dL (3.5-5.1); Alkaline Phosphatase 104 U/L (38-126); Anion Gap 6 mmol/L (8-16); Aspartate Amino Transferase 36 U/L (14-36); Bilirubin,Total 0.4 mg/dL (0.2-1.3); Blood Urea Nitrogen 15 mg/dL (7-17); Calcium 9.3 mg/dL (8.4-10.2); Carbon Dioxide 32 mmol/L (22-30); Chloride 101 mmol/L (98-107); Estimated Glomerular Filt Rate > 60; Glucose 136 mg/dL (65-110); Lipase 132 U/L (23-300); Partial Thromboplastin Time 27.4 SECONDS (22.3-36.8); Potassium 3.6 mmol/L (3.4-5.0); Prothrombin Time 13.7 Seconds (11.1-14.7); Sodium 139 mmol/L (137-145)
--- NOTE | 2023-03-04 20:32 | ECG_ITS ---
Measurements Intervals [place] Rate: 94 P: 242 [place]: 139 QRS: 3 QRSD: 110 T: 72 QT: 367 QTc: 460 Interpretive Statements Normal sinus rHYTHM WITH FIRST-DEGREE AV BLOCK ABNORMAL RHYTHM ECG COMPARED TO ECG 03/04/2023 19:56:44 No change Electronically Signed On 03-05-2023 13:17:58 CDT by Patricia Garcia M.D.
[2023-03-04 20:36] LABS: Troponin I < 0.012 ng/mL (0.000-0.034)
[2023-03-04] MEDS: SODIUM CHLORIDE 0.9% IV 1,000 ML 999 ML IV CONT (20:54)
[2023-03-04 21:17] LABS: NT Pro B Type Natriuretic Pept 23 pg/mL (19.9-100)
[2023-03-04 21:19] LABS: D Dimer 1.17 ug/mL (<0.48)
[2023-03-04 21:31] LABS: Influenza A QL RT-PCR Negative (Negative); Influenza B QL RT-PCR Negative (Negative); RSV RNA, RT-PCR Negative (Negative); SARS-CoV-2 RNA PCR Negative (Negative)
[2023-03-04 22:19] LABS: Appearance Urine Clear (Clear); Bacteria Urine None Seen /hpf; Bilirubin Urine Negative (Negative); Color Urine Dark Yellow (Yellow); Glucose Urine UA Negative (Negative); Ketones Urine Negative (Negative); Leukocyte Esterase Ur Negative LEU/UL (Negative); Nitrate Urine Negative (Negative); Non Pathogenic Casts 0-2; Protein Urine Trace mg/dL (Negative); Squamous Epithelial Cell Urine Occasional /hpf (Few); WBC Urine 0-5 /hpf
[2023-03-04 22:22] LABS: Add Urine Microscopic? YES; Specific Grav Ur 1.043 (1.001-1.035)
[2023-03-05] VITALS (47 sets, daily range): BP systolic 121–168; BP diastolic 57–85; PULSE 82–108; RESP 10–26; TEMP 35.8–36.4; O2SAT 92–97; BMI 44.7; BMI 44.2
[2023-03-05 00:40] LABS: Troponin I < 0.012 ng/mL (0.000-0.034)
[2023-03-05 02:58] LABS: Troponin I < 0.012 ng/mL (0.000-0.034)
--- NOTE | 2023-03-05 03:55 | ED.GENADULT ---
HPI - General Adult General Chief complaint: Chest Pain Stated complaint: CP History of Present Illness HPI narrative: this is a 72-year-old female with history of hypertension, hyperlipidemia, previous CVA with no residual deficits presenting with a chief complaint of chest pain. Patient says that her chest pain started 3 hours ago. Feels like an elephant is sitting on her chest, is nonradiating 5 out 10 intensity and comes and goes. She experienced pain like this yesterday. there are no alleviating or exacerbating symptoms. She has had an episode of vomiting and some subjective shortness of breath. She denies chills abdominal pain or urinary symptoms. She was seen treated here 1 month ago for sepsis. Patient's carpet technician is Dr. Guzman. Related Data Home Medications Medication Instructions Recorded Confirmed ezetimibe 10 mg tablet 10 mg PO HS 03/22/20 01/29/23 furosemide 40 mg tablet 20 mg PO DAILY PRN swelling 03/22/20 01/29/23 nortriptyline 25 mg capsule 25 mg PO HS 03/22/20 01/29/23 ropinirole 2 mg tablet 4 mg PO HS 03/22/20 01/29/23 spironolactone 100 mg tablet 25 mg PO DAILY 03/22/20 01/29/23 levothyroxine 125 mcg PO DAILY 05/01/20 01/29/23 celecoxib 200 mg capsule 200 mg PO BID 01/29/23 01/29/23 clopidogrel 75 mg tablet (Plavix) 75 mg PO DAILY 01/29/23 01/29/23 pregabalin 150 mg capsule 150 mg PO TID 01/29/23 01/29/23 Allergies Allergy/AdvReac Type Severity Reaction Status Date / Time adhesive Allergy Intermediate RASH Verified 03/04/23 20:03 alendronate sodium Allergy Mild STOMACH Verified 03/04/23 20:03 PAIN atorvastatin Allergy Unknown Unknown Verified 03/04/23 20:03 tizanidine Allergy Unknown Unknown Verified 03/04/23 20:03 cefdinir [From Omnicef] AdvReac Unknown Rash Verified 03/04/23 20:03 [facility] Past Medical History Medical History Cerebrovascular accident Degenerative joint disease Depression Diastolic dysfunction On echocardiogram in April 2021. Functional bowel disorder Hypertension Hypothyroidism Migraine Mitral valve prolapse Morbid obesity Primary stress urinary incontinence Restless leg syndrome Surgical History Surgical History History of bilateral knee arthroplasty (2007) History of hysterectomy (1996) History of shoulder surgery Family History Family History Mother Breast cancer Father Chronic obstructive pulmonary disease Sibling Breast cancer Multiple sclerosis Social History Social History Social History: Surrogate medical decision maker: Hayden Mills, spouse. Code status: Full code. Smoking status: Never smoker Second hand tobacco smoke exposure: No Alcohol intake: never Drinks per week: 0 Substance use: never Substance use type: prescription drug Last use: 01/28/2023 morning Lack of Transportation: No Lack of Food: Never True Current Housing: I Have Housing Concerned About Future Housing: No Difficulty Paying Gas/Electric Bills: No Difficulty Paying for Meds: No Currently Unemployed: No Education: Trade/Vocational Certificate Difficulty w/ Childcare or Family Care: No Additional living arrangements comments: Lives with in [place]. Spiritual care concerns: No Exam Narrative: APPEARANCE: No Apparent distress Head: atraumatic. EYES: EOMI, NOSE: Atraumatic NECK: Trachea midline RESPIRATORY: No increased rate of breathing , clear to auscultation CARDIOVASCULAR: RRR, no peripheral edema ABDOMINAL: Non-distended soft, no guarding rib MUSCULOSKELETAl: No obvious deformities NEURO: Alert. Moving 4/4 extremities SKIN:: Warm, dry. Normal color PSYCHIATRIC: Normal affect Course Vital Signs Vital signs: Vital Signs Pulse Rate 100 03/04/23 19:58 Respiratory Rate 15
--- NOTE | 2023-03-05 04:55 | PM.IMHP ---
H&P: HPI History of Present Illness Date/Time: 03/05/23 04:55 Chief Complaint: Chest pain for 1 day Narrative: This is a 72-year-old female with history of stroke with no residual, urinary tract infections, hypertension, hypothyroidism, restless leg syndrome, tachycardia and other comorbidities who presented to the emergency department via EMS from home for evaluation of chest pain. Patient was admitted last month to our hospital with sepsis due to UTI. During her hospital stay she was found to have episodes of tachycardia for which Cardiology was consulted. She was started on metoprolol 12.5 twice a day. She was seen on follow-up at the cardiology clinic a few days ago and her metoprolol was increased to 50 twice a day. Yesterday while watching TV patient started having substernal chest pain which felt like pressure, as if an elephant is sitting on her chest. She said she has never had pain like this before, her usual pain feels like pinprick needles and not a pressure-like sensation. She says she has very poor exercise tolerance and gets short of breath with very minimal exertion. She had an echocardiogram during her last admission with an EF of 60-65%, however she has bilateral leg swelling for which she takes some Lasix. She denies any fever, headache, abdominal pain or dysuria. She did have an episode of nausea and vomiting 1 time yesterday. In the ER she had 2 troponins which were negative. She had EKG done which appears unchanged from her previous, with no acute ST or T-wave changes. She had a positive D-dimer of over 1 for which she had a CT chest which was reported as no CT evidence of acute pulmonary embolus and multiple sub 6 mm pulmonary nodules. She is still complaining of some chest pain. Review of Systems Review of Systems: no fever or weight loss no vision changes, no eye discharge no throat pain, no hoarseness, no lymphadenopathy Substernal chest pain, minimal palpitations no coughing, no wheezing no abdominal pain, no diarrhea, positive nausea, positive vomiting no dysuria, no vaginal discharge Positive leg swelling, positive edema no suicidal or homicidal ideation [facility] Past Medical History Medical History Cerebrovascular accident Degenerative joint disease Depression Diastolic dysfunction On echocardiogram in April 2021. Functional bowel disorder Hypertension Hypothyroidism Migraine Mitral valve prolapse Morbid obesity Primary stress urinary incontinence Restless leg syndrome Surgical History Surgical History History of bilateral knee arthroplasty (2007) History of hysterectomy (1996) History of shoulder surgery Family History Family History Mother Breast cancer Father Chronic obstructive pulmonary disease Sibling Breast cancer Multiple sclerosis Social History Social History Social History: Surrogate medical decision maker: Hayden Mills, spouse. Code status: Full code. Smoking status: Never smoker Second hand tobacco smoke exposure: No Alcohol intake: never Drinks per week: 0 Substance use: never Substance use type: prescription drug Last use: 01/28/2023 morning Lack of Transportation: No Lack of Food: Never True Current Housing: I Have Housing Concerned About Future Housing: No Difficulty Paying Gas/Electric Bills: No Difficulty Paying for Meds: No Currently Unemployed: No Education: Trade/Vocational Certificate Difficulty w/ Childcare or Family Care: No Additional living arrangements comments: Lives with in [place]. Spiritual care concerns: No Meds Home Medications and Allergies Home Medications Medication Instructions Recorded Confirmed Type ezetimibe 10 mg tablet 10 mg PO HS 03/22/20 01/29/23 History fur
[2023-03-05] MEDS: ENOXAPARIN 80 MG/0.8 ML SYRINGE 70 MG SUB-Q (06:14)
[2023-03-05] MEDS: ENOXAPARIN 60 MG/0.6 ML SYRINGE SUB-Q (06:14)
[2023-03-05] MEDS: LEVOTHYROXINE SODIUM 125 MCG TABLET PO (06:14)
[2023-03-05 06:57] LABS: Prothrombin Time 13.8 Seconds (11.1-14.7)
--- NOTE | 2023-03-05 07:32 | PC.NURSE ---
Patient report received from PRITI Conteh. All questions answered and care of patient assumed.
--- NOTE | 2023-03-05 09:10 | ADMGEN ---
This patient, Gilma Mills, was admitted to 2 Medical Room 246-. Patient/family oriented to hospital policies and general routines including ID bracelet, bed and alarms, visiting hours, pain management, procedures, bathroom and other care routines, personal items, smoking policy, room service/diet, and visiting hours. Information on how to activate the Rapid Response Team has been discussed. Patient/Family are encouraged to report perceived risks to care and to ask questions if they do not understand what they are told or what they should do.
[2023-03-05] MEDS: METOPROLOL TARTRATE 50 MG TAB PO ×2 (11:57→20:18)
[2023-03-05] MEDS: CLOPIDOGREL BISULFATE 75 MG TABLET PO (11:58)
[2023-03-05] MEDS: ONDANSETRON INJ 4 MG/2 ML VIAL IV PUSH (13:34)
[2023-03-05] MEDS: MORPHINE SULFATE (*CRX) 2 MG/ML INJ IV PUSH (13:35)
[2023-03-05] MEDS: ALPRAZolam (*CRX) 0.5 MG TABLET PO ×2 (13:59→20:24)
--- NOTE | 2023-03-05 14:12 | PC.NURSE ---
1420 Dr Perez notified of pt c/o sharp shooting pains in bilateral legs. Vital signs stable, new orders recieved
--- NOTE | 2023-03-05 15:12 | PM.CNCAR ---
Assessment and Plan Assessment and plan (1) Chest pain: Qualifiers: Chest pain type: chest pain due to myocardial ischemia Ischemic chest pain type: unstable angina pectoris Qualified Code(s): I20.0 - Unstable angina Code(s): R07.9 - Chest pain, unspecified Status: Acute Assessment and Plan: EKG shows sinus rhythm with first degree AVB. No ischemic changes. Troponins are negative. CXR with no acute findings. Chest CTA with no evidence of acute PE, dilated central pulmonary arteries which can be seen with pulmonary arterial hypertension, mild coronary artery calcification. Prior Lexiscan and cardiac CTA from 2020 reviewed and results as noted in HPI. Will obtain Lexiscan tomorrow. Patient to be NPO at midnight. (2) Hypertension: Qualifiers: Hypertension type: primary hypertension Qualified Code(s): I10 - Essential (primary) hypertension Code(s): I10 - Essential (primary) hypertension Status: Acute Assessment and Plan: Stable. Continue home Spironolactone (3) PSVT (paroxysmal supraventricular tachycardia): Code(s): I47.1 - Supraventricular tachycardia Status: Acute Assessment and Plan: Continue Metoprolol 50mg BID. History of Present Illness History of Present Illness Consult date/time: 03/05/23 15:12 Requesting physician: Oscar Perez MD Consult reason: chest pain Reason For Visit: mod risk chest pain Narrative: We are consulted for chest pain. This is a 72-year-old female with morbid obesity, hypertension, hypothyroidism, PARI, SVT, CVA who presented to [place] for evaluation of chest pain. Patient states she had some chest discomfort yesterday, however, today it felt like a heavy elephant sitting on the middle of her chest. It continued to persist, therefore, she came to the ER for further evaluation. Patient states it has been constant. Patient was given some pain medications earlier today, and states that the pain went from a big elephant to a little elephant . EKG shows sinus rhythm with first degree AVB. No ischemic changes. Troponins are negative. CXR with no acute findings. Chest CTA with no evidence of acute PE, dilated central pulmonary arteries which can be seen with pulmonary arterial hypertension, mild coronary artery calcification. Patient now sees Dr. Lopez, however, she used to see a medical management trainer in [place]. Her prior workup shows: 09/26/2020 Lexiscan: Inferior and inferolateral defects suspicious for prior infarct/scar with a component of dimple-infarct ischemia. Suspect reversible ischemia involving the apex, apical anterior and apical septal segments. No ECG changes suggestive of ischemia, occasional PVCs. Normal size LV with normal systolic function. No evidence of transient ischemic dilatation. 10/31/2020 CTA of the heart: Calcified and noncalcified atherosclerotic disease involving the pLAD (10% diameter narrowing and 20% area narrowing) and proximal LCX (33% diameter narrowing and 55% area narrowing). Right coronary artery patent with no evidence of plaque or stenosis. Review of Systems Review of Systems: All systems reviewed & are unremarkable except as noted in HPI and below (HPI) [facility] Past Medical History Medical History Cerebrovascular accident Degenerative joint disease Depression Diastolic dysfunction On echocardiogram in April 2021. Functional bowel disorder Hypertension Hypothyroidism Migraine Mitral valve prolapse Morbid obesity Primary stress urinary incontinence Restless leg syndrome Surgical History Surgical History History of bilateral knee arthroplasty (2007) History of hysterectomy (1996) History of shoulder surgery Family History Family History Mother Breast cancer Father Chronic obstructive pulmonary disease Sibling Br
[2023-03-05] MEDS: PREGABALIN (*CRX) 75 MG CAPSULE 150 MG PO (17:45)
[2023-03-05] MEDS: NORTRIPTYLINE HCL 25 MG CAPSULE PO (20:18)
[2023-03-05] MEDS: rOPINIRole HCL 1 MG TABLET 4 MG PO (20:18)
[2023-03-05] MEDS: DOXYCYCLINE HYCLATE 100 MG TABLET PO (20:18)
[2023-03-05] MEDS: EZETIMIBE 10 MG TABLET PO (20:20)
[2023-03-05] MEDS: HYDROcodone/acetaminophen (*CRX) 5-325 MG TABLET 1 TAB PO (20:25)
[2023-03-06] VITALS (11 sets, daily range): BP systolic 118–166; BP diastolic 49–71; PULSE 73–96; RESP 12–20; TEMP 36.3–36.6; O2SAT 95–97
--- NOTE | 2023-03-06 | EST_ITS ---
Patient Info Name: Gilma Mills Age: 72 years : 1950 Gender: Female Ht: 69 in Wt: 299 lbs BSA: 2.64 m2 Exam Date: 03/06/2023 11:57 AM Exam Location: [facility] Stress Patient Status: Inpatient Admit Date: 03/05/2023 Staff Ordering Physician: Rosa Day MD Attending Provider: Anita Cummins MD Exercise Technologist: Tara France RDCS Exercise Physician: Héctor Shah MD Exam Type: CA stress vanessa w NM Study Info Indications R07.9 - Chest pain, unspecified A regadenoson stress test was performed. History/Risk Factors Hypertension: Yes Dyslipidemia: No Myocardial Infarction (SD): No Obesity: Yes Congestive Heart Failure (CHF): No Cardiomyopathy/LV Systolic Dysfunction: No Diabetes Mellitus: No COPD: No Tobacco Use: Never Cerebrovascular Disease: No Deep Vein Thrombosis (DVT): None Frailty Scale (CSHA): 5: Mildly Frail Cardiac Arrest: No Summary 1. SINUS RHYTHM WITH FIRST-DEGREE AV BLOCK OTHERWISE UNREMARKABLE ECG. 2. NO ST OR T-WAVE ABNORMALITIES NOTED FOLLOWING LEXISCAN INJECTION. 3. CLINICALLY AND ELECTROCARDIOGRAPHICALLY UNREMARKABLE LEXISCAN STRESS TEST. 4. MYOCARDIAL PERFUSION IMAGING STUDY TO BE REPORTED BY RADIOLOGY. Protocol: Lexiscan Stress ECG Details Stage: REST Duration (min): 2 min : 32 sec HR (bpm): 84 SBP (mmHg): 142 DBP (mmHg): 88 Stage: REST Duration (min): 13 min : 46 sec HR (bpm): 82 SBP (mmHg): 142 DBP (mmHg): 88 Stage: STAGE 1 Duration (min): 1 min : 0 sec HR (bpm): 94 SBP (mmHg): 150 DBP (mmHg): 56 Stage: RECOVERY Duration (min): 1 min : 0 sec HR (bpm): 95 SBP (mmHg): 132 DBP (mmHg): 57 Stage: RECOVERY Duration (min): 2 min : 0 sec HR (bpm): 94 SBP (mmHg): 132 DBP (mmHg): 57 Stage: RECOVERY Duration (min): 3 min : 0 sec HR (bpm): 95 SBP (mmHg): 131 DBP (mmHg): 63 Stage: RECOVERY Duration (min): 3 min : 12 sec HR (bpm): 95 SBP (mmHg): 131 DBP (mmHg): 63 Rest HR: 82 bpm Peak HR: 97 bpm Rest Sys BP: 142 mmHg Peak Sys BP: 150 mmHg Max Pred HR: 149 bpm % Max Pred HR: 65 % Target HR: 127 bpm Max RPP: 14,550 bpm*mmHg Termination Reason: Completed protocol Cardiac Symptoms: None Total Time: 1 min : 0 sec Rest Hollis BP: 88 mmHg Peak Hollis BP: 56 mmHg Total Dose: 0.4 mg Resting ECG SINUS RHYTHM WITH FIRST-DEGREE AV BLOCK OTHERWISE UNREMARKABLE ECG. Stress ECG NO ST OR T-WAVE ABNORMALITIES NOTED FOLLOWING LEXISCAN INJECTION. Report Signatures
[2023-03-06] MEDS: LEVOTHYROXINE SODIUM 125 MCG TABLET PO (06:10)
[2023-03-06] MEDS: HYDROcodone/acetaminophen (*CRX) 5-325 MG TABLET 1 TAB PO ×2 (06:11→23:25)
[2023-03-06] MEDS: METOPROLOL TARTRATE 50 MG TAB PO ×2 (07:58→19:57)
--- NOTE | 2023-03-06 09:41 | PM.IMPN ---
Progress Note: A&P Assessment and Plan (1) Chest pain: Qualifiers: Chest pain type: chest pain due to myocardial ischemia Ischemic chest pain type: unstable angina pectoris Qualified Code(s): I20.0 - Unstable angina Code(s): R07.9 - Chest pain, unspecified Status: Acute Assessment and Plan: -patient presenting with substernal chest pain, which she describes as an elephant sitting on her chest. Troponins x2 were negative, and EKG does not show any acute ST or T-wave changes. However patient is high risk due to hypertension, hyperlipidemia and ongoing chest pain. Concern for unstable angina. -cardiology consult placed, patient going for NST today -NPO except meds (2) Tachycardia: Code(s): R00.0 - Tachycardia, unspecified Status: Acute Assessment and Plan: Patient during her last admission was seen by Cardiology for episodes of SVT. She was started on metoprolol 12.5 twice a day and on follow-up with cardiology clinic recently this dose was increased to 50 twice a day. (3) Hypertension: Qualifiers: Hypertension type: primary hypertension Qualified Code(s): I10 - Essential (primary) hypertension Code(s): I10 - Essential (primary) hypertension Status: Acute Assessment and Plan: -patient is on home Lasix, spironolactone and metoprolol, increase as tolerated (4) Hypothyroid: Qualifiers: Hypothyroidism type: unspecified Qualified Code(s): E03.9 - Hypothyroidism, unspecified Code(s): E03.9 - Hypothyroidism, unspecified Status: Acute Assessment and Plan: -patient with history of hypothyroidism, resume home dose Synthroid 125 mcg for now Subjective Date/time seen: 03/06/23 09:41 Interval history: no chest pain, shortness of breath Review of Systems Review of Systems: All systems reviewed & are unremarkable except as noted in HPI and below (HPI) Exam Narrative: general- awake, alert, oriented, in minimal distress, complaining of substernal chest pain heent- perrl, no nystagmus, no throat swelling, no dicharge chest- clear breath sounds, no wheezes, rales, no crackles heart- s1, s2, regular rate and rhythm, no gallops or murmurs abdomen- soft, bowel sounds heard, no rebound or tenderness extremities-minimal edema no cyanosis psych- no suicidal or homicidal ideation neuro- moves all extremities, no focal neurologic deficit, mentation intact Objective Data Vital Signs Vital Signs: Vital Signs - 24 hr 03/05/23 11:56 03/05/23 11:57 03/05/23 12:00 Temperature Pulse Rate 108 H 108 H 107 H Respiratory Rate Blood Pressure 168/85 H Pulse Oximetry 96 Oxygen Delivery 03/05/23 13:41 03/05/23 13:57 03/05/23 16:00 Temperature 97.5 F L Pulse Rate 93 92 Respiratory Rate 24 H Blood Pressure 126/69 Pulse Oximetry 92 Oxygen Delivery 03/05/23 17:44 03/05/23 19:57 03/05/23 19:58 Temperature 96.4 F L Pulse Rate 94 94 98 Respiratory Rate 24 H 19 Blood Pressure 152/81 H 133/61 Pulse Oximetry 92 95 Oxygen Delivery Room Air 03/05/23 20:18 03/05/23 20:00 03/06/23 00:00 Temperature Pulse Rate 82 93 88 Respiratory Rate Blood Pressure Pulse Oximetry Oxygen Delivery 03/05/23 22:20 03/06/23 04:00 03/06/23 04:00 Temperature Pulse Rate 81 81 Respiratory Rate Blood Pressure Pulse Oximetry 95 Oxygen Delivery Room Air 03/06/23 05:57 03/06/23 07:58 03/06/23 08:00 Temperature 97.8 F Pulse Rate 94 90 Respiratory Rate 17 Blood Pressure 118/49 L Pulse Oximetry 95 95 Oxygen Delivery Room Air Intake/Output Intake/Output: Intake & Output 03/03/23 03/04/23 03/05/23 03/06/23 23:59 23:59 23:59 23:59 Intake Total 1000 / 1000 200 / 200 Output Total 400 / 400 Balance 1000 / 1000 -400 / -400 200 / 200 Meds/Results Medications: Active Medications Generic Name Dose Route Start Last Admin Trade Name
--- NOTE | 2023-03-06 11:54 | PCCCNOTE ---
On 03/06/23, the student, [Lyssa Bond], provided care and completed [facility] documentation on this patient. I have reviewed the student's documentation and agree with the findings.
--- NOTE | 2023-03-06 12:20 | PM.PNCARD ---
Progress Note: A&P Assessment and Plan (1) Chest pain: Qualifiers: Chest pain type: chest pain due to myocardial ischemia Ischemic chest pain type: unstable angina pectoris Qualified Code(s): I20.0 - Unstable angina Code(s): R07.9 - Chest pain, unspecified Status: Acute (2) PSVT (paroxysmal supraventricular tachycardia): Code(s): I47.1 - Supraventricular tachycardia Status: Acute Plan 72-year-old lady with: SVT being treated with metoprolol. For now this will be continued. We will follow the patient in the outpatient setting and if recurrent arrhythmias occur we will consider escalation of therapy Atypical sounding intermittent chest pain. Lexiscan nuclear stress test will be done today. Prepared the patient that the scans may not look entirely normal since she is morbidly obese. Will have to review the scans carefully to ensure that there is no high risk findings. Her symptoms are atypical sounding in my opinion and I would not for the most part recommend angiography unless her scans are markedly abnormal Héctor Shah MD [facility] Subjective Date/time seen: Date of service: 03/06/23 12:20 Interval history: Follow-up visit in this 72-year-old lady with: SVT now being treated with metoprolol. Maintaining sinus rhythm on telemetry today. History of intermittent episodes of atypical sounding chest pain. Patient is anticipating Lexiscan nuclear stress test which was ordered by my partner for evaluation of this. Did discuss with the patient the propensity for false-positive nuclear studies in the setting of morbid obesity. Exam Const: General: comfortable Other: Morbidly obese lady no apparent distress HENMT: Mouth: Yes moist mucous membranes Eyes: Sclera: sclerae normal Neck: Neck: supple Resp: Effort & Inspection: normal respiratory effort Auscultation: clear to auscultation bilaterally Cardio: Rate: regular rate Rhythm: regular rhythm Other: PMI not palpable no murmur no gallop GI: GI Palp: Yes Soft to palpation Auscultation: normal bowel sounds Skin: General skin exam: normal color Neuro: Other: Alert and oriented x3 normal cognition Objective Data Vital Signs Vital Signs: Vital Signs - 24 hr 03/05/23 13:41 03/05/23 13:57 03/05/23 16:00 Temperature 36.4 C L Pulse Rate 93 92 Respiratory Rate 24 H Blood Pressure 126/69 Pulse Oximetry 92 Oxygen Delivery 03/05/23 17:44 03/05/23 19:57 03/05/23 19:58 Temperature 35.8 C L Pulse Rate 94 94 98 Respiratory Rate 24 H 19 Blood Pressure 152/81 H 133/61 Pulse Oximetry 92 95 Oxygen Delivery Room Air 03/05/23 20:18 03/05/23 20:00 03/06/23 00:00 Temperature Pulse Rate 82 93 88 Respiratory Rate Blood Pressure Pulse Oximetry Oxygen Delivery 03/05/23 22:20 03/06/23 04:00 03/06/23 04:00 Temperature Pulse Rate 81 81 Respiratory Rate Blood Pressure Pulse Oximetry 95 Oxygen Delivery Room Air 03/06/23 05:57 03/06/23 07:58 03/06/23 08:00 Temperature 36.6 C Pulse Rate 94 90 Respiratory Rate 17 Blood Pressure 118/49 L Pulse Oximetry 95 95 Oxygen Delivery Room Air 03/06/23 08:00 Temperature Pulse Rate 90 Respiratory Rate Blood Pressure Pulse Oximetry Oxygen Delivery Intake/Output Intake/Output: Intake & Output 03/03/23 03/04/23 03/05/23 03/06/23 23:59 23:59 23:59 23:59 Intake Total 1000 200 Output Total 400 Balance 1000 -400 200 Meds/Results Medications: Active Medications Generic Name Dose Route Start Last Admin Trade Name Freq PRN Reason Stop Dose Admin Acetaminophen 650 mg 03/05/23 04:52 Acetaminophen 325 Mg Tablet PO Q4H PRN Mild Pain (1-3) or Fever Hydrocodone Bitart/Acetaminophen 1 tab 03/05/23 13:43 03/06/23 06:11 Hydrocodone/Acetaminophen (*Crx) 5-325 Mg Tablet PO 1 tab Q6H PRN Administration Moderate Pain (4-6) Al Hydrox/
--- NOTE | 2023-03-06 14:17 | PM.DS ---
DS: Admitting Diagnosis Discharge Date 03/06/2023 Admitting Diagnosis chest pain DS: Discharge Diagnosis Discharge Diagnosis (1) Chest pain: Qualifiers: Chest pain type: chest pain due to myocardial ischemia Ischemic chest pain type: unstable angina pectoris Qualified Code(s): I20.0 - Unstable angina Code(s): R07.9 - Chest pain, unspecified Status: Acute (2) History of CVA (cerebrovascular accident): Code(s): Z86.73 - Personal history of transient ischemic attack (TIA), and cerebral infarction without residual deficits Status: Acute DS: Summary Hospital Course Hospital Course: Assessment and Plan (1) Chest pain: ?Qualifiers: ?Chest pain type:?chest pain due to myocardial ischemia??Ischemic chest pain type:?unstable angina pectoris? Qualified Code(s):?I20.0 - Unstable angina ?Code(s): R07.9 - Chest pain, unspecified ?Status:?Acute ?Assessment and Plan: -patient presenting with substernal chest pain, which she describes as an elephant sitting on her chest.? Troponins x2 were negative, and EKG does not show any acute ST or T-wave changes.? However patient is high risk due to hypertension, hyperlipidemia and ongoing chest pain.? Concern for unstable angina.? -cardiology consult placed, patient underwent NST today. it was unremarkable (2) Tachycardia: ?Code(s): R00.0 - Tachycardia, unspecified ?Status:?Acute ?Assessment and Plan: Patient during her last admission was seen by Cardiology for episodes of SVT.? She was started on metoprolol 12.5 twice a day and on follow-up with cardiology clinic recently this dose was increased to 50 twice a day.? (3) Hypertension: ?Qualifiers: ?Hypertension type:?primary hypertension? Qualified Code(s):?I10 - Essential (primary) hypertension ?Code(s): I10 - Essential (primary) hypertension ?Status:?Acute ?Assessment and Plan: -patient is on home Lasix, spironolactone and metoprolol, increase as tolerated (4) Hypothyroid: ?Qualifiers: ?Hypothyroidism type:?unspecified? Qualified Code(s):?E03.9 - Hypothyroidism, unspecified ?Code(s): E03.9 - Hypothyroidism, unspecified ?Status:?Acute ?Assessment and Plan: -patient with history of hypothyroidism, resume home dose Synthroid 125 mcg for now patient is clinically stable and is being discharged home Time Spent with Patient Time attestation: Total time spent providing and/or coordinating discharge services: DS: Data Data Completed and Pending Labs on day of discharge: Preliminary micro results at discharge 03/04/23 20:47 Blood Culture - Preliminary Blood 03/04/23 20:47 Blood Culture - Preliminary Blood Discharge Plan Discharge Consulting providers: Rosa Day Discharging Clinician: Oscar Perez Anticipated Discharge Date/Time: 03/06/23 14:16 Patient Disposition: Home Health Service Activity: no preference Diet: heart healthy Discharge Instructions: Per Care Coordination: Home with [facility]: Resume RN services. [phone] Patient Instructions: Antibiotic Form, Clopidogrel (By mouth) Stand Alone Forms: General Discharge Information Follow-up/Referrals: Sebastien Sequeira MD [Primary Care Provider] - Discharge Medications: Continued furosemide 40 mg tablet 40 mg PO DAILY Patient Comments: thursday, , thursday spironolactone 100 mg tablet 25 mg PO DAILY nortriptyline 25 mg capsule 25 mg PO HS ropinirole 2 mg tablet 4 mg PO HS ezetimibe 10 mg tablet 10 mg PO HS levothyroxine 125 mcg PO DAILY clopidogrel [Plavix] 75 mg Tablet 75 mg PO DAILY pregabalin 150 mg capsule 150 mg PO TID tramadol 50 mg tablet 50 mg PO BID PRN (Reason: Pain) potassium chloride 20 mEq tablet,ER particles/crystals 20 meq PO DAILY pantoprazole 40 mg tablet,delayed release (DR/EC)
[2023-03-06] MEDS: DOXYCYCLINE HYCLATE 100 MG TABLET PO ×2 (14:41→19:57)
[2023-03-06] MEDS: CLOPIDOGREL BISULFATE 75 MG TABLET PO (14:41)
[2023-03-06] MEDS: ENOXAPARIN 30 MG/0.3 ML SYRINGE SUB-Q (14:42)
[2023-03-06] MEDS: FUROSEMIDE 40 MG TABLET PO (14:42)
[2023-03-06] MEDS: PANTOPRAZOLE 40 MG TABLET PO (14:42)
[2023-03-06] MEDS: POTASSIUM CHLORIDE 20 MEQ ER TABLET PO (14:42)
[2023-03-06] MEDS: SPIRONOLACTONE 25 MG TABLET PO (14:42)
[2023-03-06] MEDS: ALPRAZolam (*CRX) 0.5 MG TABLET PO (14:45)
[2023-03-06] MEDS: PREGABALIN (*CRX) 75 MG CAPSULE 150 MG PO ×3 (14:46→19:57)
[2023-03-06] MEDS: rOPINIRole HCL 1 MG TABLET 4 MG PO (19:56)
[2023-03-06] MEDS: EZETIMIBE 10 MG TABLET PO (19:57)
[2023-03-06] MEDS: NORTRIPTYLINE HCL 25 MG CAPSULE PO (19:57)
[2023-03-06] MEDS: DIPHENHYDRAMINE 1%/ZINC 0.1% CREAM 30 GM TUBE 1 APPLIC TOPICAL (20:00)
[2023-03-06] MEDS: BACLOFEN 10 MG TABLET PO (23:25)
[2023-03-07] VITALS: PULSE 87
[2023-03-07 04:00] VITALS: PULSE 81
[2023-03-07 04:58] VITALS: BP 113/62; PULSE 81; RESP 16; TEMP 37.1; O2SAT 97
[2023-03-07] MEDS: LEVOTHYROXINE SODIUM 125 MCG TABLET PO (06:13)
[2023-03-07 08:00] VITALS: PULSE 96
[2023-03-07] MEDS: POTASSIUM CHLORIDE 20 MEQ ER TABLET PO (08:12)
[2023-03-07] MEDS: ENOXAPARIN 30 MG/0.3 ML SYRINGE SUB-Q (08:12)
[2023-03-07] MEDS: SPIRONOLACTONE 25 MG TABLET PO (08:12)
[2023-03-07] MEDS: PANTOPRAZOLE 40 MG TABLET PO (08:12)
[2023-03-07 08:13] VITALS: PULSE 91
[2023-03-07] MEDS: METOPROLOL TARTRATE 50 MG TAB PO (08:13)
[2023-03-07] MEDS: PREGABALIN (*CRX) 75 MG CAPSULE 150 MG PO (08:14)
[2023-03-07] MEDS: ACETAMINOPHEN 325 MG TABLET 650 MG PO (08:14)
[2023-03-07] MEDS: BACLOFEN 10 MG TABLET PO (08:14)
[2023-03-07] MEDS: DOXYCYCLINE HYCLATE 100 MG TABLET PO (08:14)
[2023-03-07] MEDS: CLOPIDOGREL BISULFATE 75 MG TABLET PO (08:14)
[2023-03-07] MEDS: FUROSEMIDE 40 MG TABLET PO (08:14)
[2023-03-07 08:16] VITALS: BP 128/61; PULSE 91; RESP 14; O2SAT 99
--- NOTE | 2023-03-07 08:33 | PM.DS ---
DS: Admitting Diagnosis Discharge Date 03/07/2023 Admitting Diagnosis chest pain DS: Discharge Diagnosis Discharge Diagnosis (1) Chest pain: Qualifiers: Chest pain type: chest pain due to myocardial ischemia Ischemic chest pain type: unstable angina pectoris Qualified Code(s): I20.0 - Unstable angina Code(s): R07.9 - Chest pain, unspecified Status: Acute Assessment and Plan: -patient presenting with substernal chest pain, which she describes as an elephant sitting on her chest. Troponins x2 were negative, and EKG does not show any acute ST or T-wave changes. However patient is high risk due to hypertension, hyperlipidemia and ongoing chest pain. Concern for unstable angina. -cardiology consulted NST NEGATIVE (2) History of CVA (cerebrovascular accident): Code(s): Z86.73 - Personal history of transient ischemic attack (TIA), and cerebral infarction without residual deficits Status: Acute Assessment and Plan: HH w/ PT/OT DS: Summary Hospital Course Reason for hospitalization: chest pain Hospital Course: Admitted for atypical chest discomfort. Seen by Cardiology. Started on low-dose metoprolol for PSVT. Had negative nuclear stress test. Was feeling weak and tired and unable to discharge 03/06 however was up to discharge 03/07/2023 with home health and PT OT. Vital signs remained stable. Troponins and EKG were unremarkable. tolerating diet. Alert and oriented. Time Spent with Patient Time attestation: Total time spent providing and/or coordinating discharge services: Exam Narrative: general- awake, alert, oriented, in no distress heent- perrl, no nystagmus, oral mucosa moist chest- clear breath sounds, no wheezes, rales, no crackles heart- s1, s2, regular rate and rhythm, no gallops or murmurs abdomen- soft, bowel sounds heard, no rebound or tenderness extremities-no pitting edema psych- no suicidal or homicidal ideation neuro- moves all extremities, no focal neurologic deficit, mentation intact DS: Data Data Completed and Pending Labs on day of discharge: Preliminary micro results at discharge 03/04/23 20:47 Blood Culture - Preliminary Blood 03/04/23 20:47 Blood Culture - Preliminary Blood Discharge Plan Discharge Consulting providers: Rosa Day Discharging Clinician: Rom Marin Anticipated Discharge Date/Time: 03/06/23 14:16 Patient Disposition: Home Health Service Activity: no straining and no driving Diet: heart healthy Discharge Instructions: Per Care Coordination: [facility] with [facility] [phone] Patient Instructions: Clopidogrel (By mouth) Stand Alone Forms: General Discharge Information Follow-up/Referrals: Sebastien Sequeira MD [Primary Care Provider] - Discharge Medications: Continued furosemide 40 mg tablet 40 mg PO DAILY Patient Comments: thursday, , thursday spironolactone 100 mg tablet 25 mg PO DAILY nortriptyline 25 mg capsule 25 mg PO HS ropinirole 2 mg tablet 4 mg PO HS ezetimibe 10 mg tablet 10 mg PO HS levothyroxine 125 mcg PO DAILY clopidogrel [Plavix] 75 mg Tablet 75 mg PO DAILY pregabalin 150 mg capsule 150 mg PO TID tramadol 50 mg tablet 50 mg PO BID PRN (Reason: Pain) potassium chloride 20 mEq tablet,ER particles/crystals 20 meq PO DAILY pantoprazole 40 mg tablet,delayed release (DR/EC) 40 mg PO DAILY buspirone 15 mg tablet 15 mg PO BID PRN (Reason: Anxiety) metoprolol tartrate 25 mg tablet 50 mg PO BID Discontinued celecoxib 200 mg capsule 200 mg PO DAILY Date of admission: 03/05/23 05:44 Primary Care Provider: Sebastien Sequeira Admitting Provider: Anita Cummins Attending physician on admission: Ainta Cummins Condition: Stable
--- NOTE | 2023-03-07 09:36 | PCPTNOTE ---
Patient has discharge orders from the MD. Checked with patient and she reports she feels safe to go home, knowing when to use her wheeled walker or her cane, and does not need am IP PT eval at this time.
--- NOTE | 2023-03-07 10:32 | PCOTNOTE ---
Patient has discharge orders from the MD. Checked with patient and she reports she feels safe with completing ADLs when going home and her is there to help. She declines and does not need am IP OT eval at this time.
== END 2023-03-07 11:30 | disposition home health service (06) ==
LOC: ANHED 03-05 04:15 → ANH2MED 03-05 08:51 → ANH3MEDSUR 03-09 14:55
PROVIDERS: Admitting Provider Internal Medicine; Emergency Provider Emergency Medicine; PCP Internal Medicine; Visit Provider Internal Medicine
DX: I20.0 Unstable angina (principal); I47.1 Supraventricular tachycardia; R06.02 Shortness of breath; F32.A Depression, unspecified; M19.90 Unspecified osteoarthritis, unspecified site; I11.9 Hypertensive heart disease without heart failure; Z20.822 Contact with and (suspected) exposure to COVID-19; E03.9 Hypothyroidism, unspecified; I44.0 Atrioventricular block, first degree; R91.8 Other nonspecific abnormal finding of lung field; G47.33 Obstructive sleep apnea (adult) (pediatric); R94.31 Abnormal electrocardiogram [ECG] [EKG]; E66.01 Morbid (severe) obesity due to excess calories; N39.3 Stress incontinence (female) (male); G25.81 Restless legs syndrome; Z68.41 Body mass index [BMI] 40.0-44.9, adult; Z87.440 Personal history of urinary (tract) infections; Z86.73 Personal history of transient ischemic attack (TIA), and cerebral infarction without residual deficits; Z79.02 Long term (current) use of antithrombotics/antiplatelets; Z79.899 Other long term (current) drug therapy
CPT/HCPCS: 36415; 71045; 71275; 78452; 80053; 81001; 83690; 83880; 84484; 85025; 85380; 85610; 85730; 87040; 87637; 93005; 93017; 93970; 96361; 96372; 96374; 96375; 99285; A9270; A9502; G0378; J1650; J2270; J2405; J2785; J7030; Q9967

== ENCOUNTER 2023-05-20 23:59 | Observation (INO) | payer MEDICARE, SELFPAY ==
--- NOTE | ~2023-05-20 | CT_ITS ---
Clinical Indication: Elevated d-dimer CT Scan of the Chest with Contrast: Technique: Contiguous sections were acquired throughout the chest after intravenous administration of 100 cc of Omnipaque 350. Dose reduction technique was used on this scan by utilizing automated expos ure control and iterative reconstruction technique. The dose-length product (DLP) was 1010.42 mGy-cm. COMPARISON: 03/04/2023 Findings: There is no evidence of any significant mediastinal, hilar or axillary lymphadenopathy. There is no f illing defect in the pulmonary arterial tree to suggest pulmonary embolus. There is no evidence of ao rtic dissection or aneurysm. There is no evidence of pleural or pericardial effusion. Stable 4 mm left lower lobe pulmonary nodule noted. No other significant pulmonary findings. Images through the upper abdomen reveal no abnormalities. There is been probable progressive loss of height at the inferior aspect of the T12 vertebral body. Impression: No evidence of pulmonary embolus, aortic dissection, or aortic aneurysm. Stable 4 mm left lower lobe pulmonary nodule. Progressive loss of height at the inferior aspect of the T12 vertebral body. Reviewed, dictated and finalized at [facility]. Impression: No evidence of pulmonary embolus, aortic dissection, or aortic aneurysm. Stable 4 mm left lower lobe pulmonary nodule. Progressive loss of height at the inferior aspect of the T12 vertebral body.
--- NOTE | ~2023-05-20 | MR_ITS ---
EXAMINATION: MR brain/brain stem wo con DATE: 05/23/2023 07:30 INDICATION: RLE weakness TECHNIQUE: Magnetic resonance imaging (MRI) of the brain and brainstem was performed without intraven ous contrast. Sequences included sagittal and axial T1-weighted SE, axial diffusion-weighted FS EPI A SSET, axial T2*-weighted GRE, axial T2-weighted FLAIR Propeller, and axial T2-weighted Propeller. Pos tcontrast axial and coronal T1-weighted SE was obtained. Apparent diffusion coefficient (ADC) maps we re created. COMPARISON: CT brain 05/21/2023 FINDINGS: No abnormal restricted diffusion to suggest acute ischemic infarct. No MRI evidence of hemorrhage or extra-axial collection. No suspicious foci of susceptibility to suggest prior intraparenchymal hemorr umm. Normal white matter signal. No evidence of advanced or lobar predominant parenchymal volume los s. The basilar cisterns are patent. Flow voids are preserved. Paranasal sinuses are within normal arana its. Globes and orbital contents are within normal limits. IMPRESSION: Unremarkable MRI brain findings. Specifically, no evidence of acute infarct. Reviewed, dictated and finalized at location K.
--- NOTE | ~2023-05-20 | US_ITS ---
EXAMINATION: US venous doppler [facility] DATE: 05/21/2023 12:09 INDICATION: Bilateral lower limb swelling TECHNIQUE: Trinh scale images without and with compression and Doppler images of the bilateral lower e xtremity veins were obtained. COMPARISON: None FINDINGS: The right common femoral vein, profunda femoral vein, femoral vein, popliteal vein, peroneal trunk, p osterior tibial veins, and greater saphenous vein are patent. The left common femoral vein, profunda femoral vein, femoral vein, popliteal vein, peroneal trunk, po sterior tibial veins, and greater saphenous vein are patent. IMPRESSION: 1. Patent bilateral lower extremity veins. No evidence of deep venous thrombosis. Reviewed, dictated and finalized at location L. IMPRESSION: 1. Patent bilateral lower extremity veins. No evidence of deep venous thrombosi s.
--- NOTE | ~2023-05-20 | XR_ITS ---
Clinical Indication: Chest pain PA and lateral views of the chest: Comparison: 03/04/2023 Findings: The lungs are clear, without evidence of focal consolidation or pleural effusion. Cardiome diastinal silhouette is within normal limits. Right shoulder arthroplasty present. Impression: Clear lungs. Reviewed, dictated and finalized at location . Impression: Clear lungs.
--- NOTE | ~2023-05-20 | CT_ITS ---
Non-contrast Head CT History: Tremors, altered mental status COMPARISON: 01/31/2023 Technique: Axial non-contrast imaging of the brain was performed. Dose reduction technique was used on this scan by utilizing automated exposure control and iterative reconstruction technique. The dose -length product (DLP) was 681.00 mGy-cm. Findings: There is no evidence of intracranial hemorrhage, mass lesion, or acute infarct. Brain par enchyma appears normal. The ventricles and subarachnoid spaces are normal in size. The calvarium ap pears normal. The visualized paranasal sinuses and mastoid air cells are clear. Impression: No significant abnormality seen. Reviewed, dictated and finalized at location . Impression: No significant abnormality seen.
[2023-05-21] VITALS (13 sets, daily range): BP systolic 126–148; BP diastolic 64–98; PULSE 78–110; RESP 15–18; TEMP 36.1–36.9; O2SAT 94–100; BMI 43.0
--- NOTE | 2023-05-21 00:06 | ECG_ITS ---
Measurements Intervals Stamps Rate: 109 P: 153 [place]: 217 QRS: -2 QRSD: 111 T: 74 QT: 343 QTc: 462 Interpretive Statements SINUS TACHYCARDIA WITH FIRST DEGREE AV BLOCK VENTRICULAR PREMATURE COMPLEXES BORDERLINE ST-T WAVE ABNORMALITY- HIGH LATERAL LEADS BASELINE WANDER- AVR, AVL, AVF ABNORMAL ECG COMPARED TO ECG 03/04/2023 20:36:32 SINUS TACHYCARDIA NOW PRESENT ST-T WAVE ABNORMALITY NOW PRESENT Electronically Signed On 05-21-2023 8:23:48 CDT by Manan Davenport D.O.
--- NOTE | 2023-05-21 00:47 | ED.GENADULT ---
HPI - General Adult General Chief complaint: Arrhythmia/Palpitations Stated complaint: ams, afib rvr Time Seen by Provider: 05/21/23 00:05 Source: patient and family Mode of arrival: EMS Limitations: no limitations History of Present Illness HPI narrative: Patient presents via EMS to the emergency department for a reported decreased responsiveness and AMS occurred just prior to arrival while at home in which family saw the patient sitting in a chair and began to have some tremulousness and was poorly responding and upon EMS arrival patient was noted to have a heart rate upwards of 200 which was improving after EMS gave a 500 cc bolus of IV fluids en route. Patient states that she does not have any complaints at this time aside from the tremulousness. Patient denies any history of this in the past. Patient notes that she has been in a normal state of health as of late without any recent illness, and feels well. Patient denies any new or changed medication?s. Patient denies headache, vision, changes, sore throat, congestion, chest, pain, shortness of breath, dysarthria, dysphonia, numbness, weakness, diarrhea, vomiting, fever, rash, unilateral, lower extremity swelling, history of blood clots, dysuria, urinary frequency, urinary urgency, hematuria, Melena, history of seizures, cough, abdominal pain, nausea, vomiting. Family present at bedside corroborates patient story. Related Data Home Medications Medication Instructions Recorded Confirmed ezetimibe 10 mg tablet 10 mg PO HS 03/22/20 05/21/23 furosemide 40 mg tablet 40 mg PO DAILY 03/22/20 05/21/23 nortriptyline 25 mg capsule 25 mg PO HS 03/22/20 05/21/23 ropinirole 2 mg tablet 4 mg PO HS 03/22/20 05/21/23 spironolactone 100 mg tablet 25 mg PO DAILY 03/22/20 05/21/23 levothyroxine 125 mcg PO DAILY 05/01/20 05/21/23 clopidogrel 75 mg tablet (Plavix) 75 mg PO DAILY 01/29/23 05/21/23 pregabalin 150 mg capsule 150 mg PO TID 01/29/23 05/21/23 buspirone 15 mg tablet 15 mg PO BID PRN Anxiety 03/05/23 05/21/23 metoprolol tartrate 25 mg tablet 50 mg PO BID 03/05/23 05/21/23 pantoprazole 40 mg tablet,delayed 40 mg PO DAILY 03/05/23 05/21/23 release potassium chloride 20 mEq 20 meq PO DAILY 03/05/23 05/21/23 tablet,extended release(part/cryst) tramadol 50 mg tablet 50 mg PO BID PRN Pain 03/05/23 05/21/23 Allergies Allergy/AdvReac Type Severity Reaction Status Date / Time adhesive Allergy Intermediate RASH Verified 05/21/23 06:36 alendronate sodium Allergy Mild STOMACH Verified 05/21/23 06:36 PAIN atorvastatin Allergy Unknown Unknown Verified 05/21/23 06:36 tizanidine Allergy Unknown Unknown Verified 05/21/23 06:36 cefdinir [From Omnicef] AdvReac Unknown Rash Verified 05/21/23 06:36 Review of Systems Review of Systems: A 10 system review of systems was completed on the patient and is negative except for what is stated in the HPI. Nursing and ancillary documentation was reviewed. [facility] Past Medical History Medical History Cerebrovascular accident Degenerative joint disease Depression Diastolic dysfunction On echocardiogram in April 2021. Functional bowel disorder Hypertension Hypothyroidism Migraine Mitral valve prolapse Morbid obesity Primary stress urinary incontinence Restless leg syndrome Surgical History Surgical History History of bilateral knee arthroplasty (2007) History of hysterectomy (1996) History of shoulder surgery Family History Family History (Updated 05/21/23 @ 06:30 by PRITI Forrester) Mother Breast cancer Father Chronic obstructive pulmonary disease Sibling Breast cancer Multiple sclerosis Sibling Lung cancer Social History Social History Social History: Surrogate medical decision maker: Hayden Lina, spouse. Code status: Full code. Smoking status: Never smoker [place]
[2023-05-21 01:09] LABS: Basophils Percent Auto 0.6 % (0.2-1.2); Eosinophils Absolute Auto 0.3 K/mm3 (0-0.3); Eosinophils Percent Auto 4.5 % (0-4.4); Hemoglobin 12.2 g/dL (12.0-15.0); Immature Granulocyte Absolute 0.01 K/mm3 (0.00-0.031); Immature Granulocyte Percent A 0.1 % (0-0.5); Lymphocytes Percent Auto 19.3 % (18.3-44.2); Mean Corpuscular HGB Conc 32.1 g/dl (32-36); Mean Corpuscular Volume 90.3 fl (80-100); Monocytes Absolute Auto 0.8 K/mm3 (0.1-0.6); Monocytes Percent Auto 10.3 % (2.6-8.5); Neutrophils Absolute Auto 4.7 K/mm3 (1.3-6.7); Neutrophils Percent Auto 65.2 % (45.5-73.1); Platelet Count Result 238 k/mm3 (150-375); Red Blood Count 4.21 M/mm3 (4.2-5.4); Red Cell Distribution Width 13.8 % (11.5-14.5); White Blood Count 7.3 K/mm3 (4.5-10.0)
[2023-05-21 01:21] LABS: Acetaminophen < 10 ug/mL (10-30); Ammonia < 9 umol/L (9-30); Salicylate < 1.0 mg/dL (2-20)
[2023-05-21 01:22] LABS: Ethanol < 10 mg/dL (<10); Lactic Acid Reflex 1.3 mmol/L (0.7-2.0)
[2023-05-21 01:23] LABS: Partial Thromboplastin Time 28.5 SECONDS (22.3-36.8); Prothrombin Time 13.8 Seconds (11.1-14.7)
[2023-05-21 01:25] LABS: Magnesium 2.1 mg/dL (1.6-2.3)
[2023-05-21 01:26] LABS: Alanine Aminotransferase 21 U/L (6-35); Alkaline Phosphatase 87 U/L (38-126); Anion Gap 4 mmol/L (8-16); Aspartate Amino Transferase 30 U/L (14-36); Bilirubin,Total 0.4 mg/dL (0.2-1.3); Blood Urea Nitrogen 16 mg/dL (7-17); CRP 0.6 mg/dL (<1.0); Carbon Dioxide 32 mmol/L (22-30); Chloride 101 mmol/L (98-107); Estimated CRCL calculation 73 ml/min; Estimated Glomerular Filt Rate > 60; Glucose 102 mg/dL (65-110); Potassium 3.7 mmol/L (3.4-5.0); Sodium 137 mmol/L (137-145)
[2023-05-21 01:33] LABS: NT Pro B Type Natriuretic Pept < 20 pg/mL (19.9-100)
[2023-05-21 01:35] LABS: Troponin I < 0.012 ng/mL (0.000-0.034)
[2023-05-21 01:42] LABS: D Dimer 0.87 ug/mL (<0.48)
[2023-05-21 01:52] LABS: Influenza A QL RT-PCR Negative (Negative); Influenza B QL RT-PCR Negative (Negative); SARS-CoV-2 RNA PCR Negative (Negative)
[2023-05-21 02:01] LABS: Thyroid Stimulating Hormone Reflex < 0.015 uIU/mL (0.465-4.68)
[2023-05-21 02:04] LABS: Lipase 129 U/L (23-300)
[2023-05-21] MEDS: VANCOMYCIN 1,250 MG/NS 250 ML 1,250 MG/250 ML BAG 166.67 MG IVPB ×2 (02:15→04:02)
[2023-05-21] MEDS: ACETAMINOPHEN 500 MG TABLET 1000 MG PO (02:37)
[2023-05-21 02:40] LABS: Free T4 Free Thyroxine Reflex 1.57 ng/dL (0.78-2.19)
[2023-05-21 03:22] LABS: Total Triiodothyronine (T3) 1.36 NG/ML (0.97-1.69)
[2023-05-21 03:45] LABS: Appearance Urine Clear (Clear); Bilirubin Urine Negative (Negative); Blood Urine Negative (Negative); Color Urine Dark Yellow (Yellow); Glucose Urine UA Negative (Negative); Ketones Urine Trace mg/dL (Negative); Leukocyte Esterase Ur Negative LEU/UL (Negative); Nitrate Urine Negative (Negative); Protein Urine Negative (Negative); Specific Grav Ur 1.025 (1.001-1.035); Urobilinogen Urine 0.2 mg/dL (<2.0); pH Urine 5.5 (5.0-9.0)
[2023-05-21 03:58] LABS: Add Urine Microscopic? NO
[2023-05-21] MEDS: PROPRANOLOL HCL 20 MG TABLET 60 MG PO (05:15)
[2023-05-21] MEDS: LACTATED RINGERS 1,000 ML 125 ML IV CONT (05:16)
--- NOTE | 2023-05-21 06:20 | ADMGEN ---
This patient, Gilma Mills, was admitted to 3 [facility] Surg Room 316-01. Patient/family oriented to hospital policies and general routines including ID bracelet, bed and alarms, visiting hours, pain management, procedures, bathroom and other care routines, personal items, smoking policy, room service/diet, and visiting hours. Information on how to activate the Rapid Response Team has been discussed. Patient/Family are encouraged to report perceived risks to care and to ask questions if they do not understand what they are told or what they should do.
[2023-05-21 08:23] LABS: Troponin I < 0.012 ng/mL (0.000-0.034)
--- NOTE | 2023-05-21 08:50 | PM.IMHP ---
H&P: HPI History of Present Illness Date/Time: 05/21/23 08:50 Chief Complaint: 05/21/23 Narrative: This is a 73-year-old female with a past medical history of depression, diastolic heart dysfunction, hypertension, hypothyroidism, migraines, obesity, restless legs syndrome, CVA, and pulmonary nodules. She presented to [facility] on the evening of 05/20 after her found her slumped in her recliner and having tremulous shaking. She says that her woke her up and asked her to stop shaking but she was unable to so he called EMS. Per the ER HPI when EMS arrived and her heart rate was in the 200's which resolved after a 500 cc fluid bolus. Currently her heart rate has ranged from 100's-110's on telemetry. She denies any recent illness and denies any prior tremulous episodes such as this. She does say that in January of this year she had a UTI and sepsis for which she was admitted at [facility] and then discharged home with home health. She re-presented in February of 2023 with nausea, vomiting, and chest pain. A cardiac workup was completed and she was found to have SVT for which she was started on metoprolol by cardiology. Prior to this episode she was feeling well and in good health. She says that yesterday during the day she was out shopping with 1 of her friends and had no complaints. During my assessment she is found resting in bed and appears uncomfortable. She is having intermittent bilateral upper extremity tremors. Nothing seems to make the tremors worse and nothing makes them better. She says this is been going on since last night. They appear to be intention tremors as when she is talking or distracted the tremors subside. She denies numbness or tingling in her arms, denies dysarthria, dysphonia, and vision changes. She does say that she has a headache currently. It is located to the back of her head and is dully, achy. She says she has a history of migraines and had been on prophylaxis with propranolol up until February of this year when Cardiology stopped this and switched her to metoprolol for SVT. She does not feel that this headache is similar to her previous migraines. She denies chest pain but does say that she has shortness of breath with dyspnea which is chronic. She also has a chronic cough since having COVID last year. She denies nausea, vomiting, ,diarrhea or constipation. She also states that she has neuropathy to her bilateral lower extremities and fibromyalgia, as well as chronic back pain. She had a spinal fusion last year in November for L4 through S1. Her neuropathy to her bilateral lower extremities had improved after her spinal fusion however, she had fallen in January when she had her UTI and since then she has had increased pain to her bilateral lower extremities. It appears that in February on imaging there was a new inferior endplate fracture at T12 since her previous studies in January. She was not made aware of this during her hospitalization so she contacted her orthopedic doctor who completed her spinal fusion and they completed an MRI of her spine and will be following up with her in June to discuss the imaging. In the interim she was ordered to TSLO brace but she refuses to wear it as she says it makes the pain worse. She is also supposed to have a nerve conduction study for her bilateral lower extremities but he was unable to be completed because of too much swelling in her legs per her reports. She follows with a neurologist whom she has recently saw in February and per the last visit he felt everything was fine and wanted to await nerve conduction studies. She also follows with a fresh work wrapper layer for her pulmonary lung nodules. Besides her tremulousness, she complains of pain to her bilateral lower extremities with right greater than left. She has chronic venous insufficiency with some erythema present but no concerns for cellulitis. She is being admitted for observation with telemetry, doppler ultrasounds of BLE, neurology consu
[2023-05-21 11:30] LABS: Erythrocyte Sedimentation Rate 51 mm/hr (0-20)
[2023-05-21] MEDS: PREGABALIN (*CRX) 75 MG CAPSULE 150 MG PO ×2 (13:10→18:47)
[2023-05-21] MEDS: traMADol HCL (*CRX) 50 MG TABLET PO ×2 (13:10→18:53)
[2023-05-21] MEDS: CLOPIDOGREL BISULFATE 75 MG TABLET PO (13:11)
[2023-05-21] MEDS: FUROSEMIDE 40 MG TABLET PO (13:11)
[2023-05-21] MEDS: PANTOPRAZOLE 40 MG TABLET PO (13:11)
[2023-05-21] MEDS: POTASSIUM CHLORIDE 20 MEQ ER TABLET PO (13:11)
--- NOTE | 2023-05-21 18:27 | PC.NURSE ---
On 05/21/23, the CORN HUSKER, Lori Treviño, provided care and completed [employer] documentation on this patient. I have reviewed the CORN HUSKER's documentation and agree with the findings.
[2023-05-21] MEDS: METOPROLOL TARTRATE 50 MG TAB PO (20:04)
[2023-05-21] MEDS: EZETIMIBE 10 MG TABLET PO (20:04)
[2023-05-21] MEDS: rOPINIRole HCL 1 MG TABLET 4 MG PO (20:05)
[2023-05-21] MEDS: NORTRIPTYLINE HCL 25 MG CAPSULE PO (20:05)
[2023-05-21] MEDS: MELATONIN 3 MG TABLET PO (20:30)
--- NOTE | 2023-05-21 21:08 | PC.NURSE ---
I reviewed all charting completed by Ana Oconnor (license pending) and agree with all entries for 05-20-23/.
[2023-05-21] MEDS: diphenhydrAMINE HCl CAP 25 MG CAPSULE PO (23:55)
[2023-05-22] VITALS (11 sets, daily range): BP systolic 108–133; BP diastolic 51–61; PULSE 77–94; RESP 17–18; TEMP 35.9–36.6; O2SAT 92–96
--- NOTE | 2023-05-22 03:01 | PC.NURSE ---
I have reviewed Ana Oconnor's (license pending) charting and agree with all entries for 05-21-23/05-22-23.
[2023-05-22] MEDS: traMADol HCL (*CRX) 50 MG TABLET PO ×2 (05:33→13:13)
[2023-05-22] MEDS: LEVOTHYROXINE SODIUM 125 MCG TABLET PO (05:34)
[2023-05-22 05:54] LABS: Basophils Percent Auto 0.5 % (0.2-1.2); Eosinophils Absolute Auto 0.3 K/mm3 (0-0.3); Eosinophils Percent Auto 5.3 % (0-4.4); Hematocrit 39.4 % (37.0-47.0); Hemoglobin 12.2 g/dL (12.0-15.0); Immature Granulocyte Absolute 0.01 K/mm3 (0.00-0.031); Immature Granulocyte Percent A 0.2 % (0-0.5); Lymphocytes Absolute Auto 1.12 K/mm3 (0.9-3.2); Lymphocytes Percent Auto 19.7 % (18.3-44.2); Mean Corpuscular Hemoglobin 28.3 pg (26-34); Mean Corpuscular Volume 91.4 fl (80-100); Mean Platelet Volume 8.9 fl (7.4-10.4); Monocytes Absolute Auto 0.5 K/mm3 (0.1-0.6); Monocytes Percent Auto 9.2 % (2.6-8.5); Neutrophils Absolute Auto 3.7 K/mm3 (1.3-6.7); Neutrophils Percent Auto 65.1 % (45.5-73.1); Platelet Count Result 207 k/mm3 (150-375); Red Blood Count 4.31 M/mm3 (4.2-5.4); Red Cell Distribution Width 13.9 % (11.5-14.5); White Blood Count 5.7 K/mm3 (4.5-10.0)
[2023-05-22 06:06] LABS: Alanine Aminotransferase 20 U/L (6-35); Albumin Level 3.5 g/dL (3.5-5.1); Alkaline Phosphatase 77 U/L (38-126); Anion Gap 2 mmol/L (8-16); Aspartate Amino Transferase 31 U/L (14-36); Bilirubin,Total 0.4 mg/dL (0.2-1.3); Blood Urea Nitrogen 9 mg/dL (7-17); Calcium 8.7 mg/dL (8.4-10.2); Carbon Dioxide 35 mmol/L (22-30); Chloride 99 mmol/L (98-107); Cholesterol 118 mg/dL (0-200); Estimated CRCL calculation 75 ml/min; Estimated Glomerular Filt Rate > 60; Glucose 103 mg/dL (65-110); HDL Direct 28 mg/dL; Sodium 136 mmol/L (137-145); Triglycerides 194 mg/dL (<150)
[2023-05-22 06:11] LABS: Hemoglobin A1C 5.3 % (<5.7)
[2023-05-22 06:14] LABS: LDL Cholesterol Direct 60 mg/dL
--- NOTE | 2023-05-22 07:19 | PM.IMPN ---
Progress Note: A&P Assessment and Plan (1) Hyperthyroidism: Code(s): E05.90 - Thyrotoxicosis, unspecified without thyrotoxic crisis or storm Status: Acute Assessment and Plan: Patient with history of hypothyroidism on Synthroid 125 mcg daily for the last 4 years. Last TSH from 01/2023 was normal at 1.420. TSH this admission is <0.015 with normal T3, T4. Subclinical hyperthyroidism. However she does present with tachycardia. Will decrease dose by 12.5 mcg. On tele (2) Tachycardia: Code(s): R00.0 - Tachycardia, unspecified Status: Acute Assessment and Plan: EMS reports SVT in the 200's but no EKG from field EKG on admission to the ED shows ST with first degree AV block, PVC, and borderline ST-T wave abnormality in high lateral leads. 03/05/2023 during admission was seen by cards for SVT and started metoprolol and speaks to escalation of therapy should arrhythmias re-occur. BNP normal Trops negative ST on tele with 1st degree AV block Cardiology consulted and rec's are greatly appreciated. ECHO 01/30/23 Summary ? 1. Technically suboptimal study due to poor sonographic images. ? 2. Definity contrast administered improved wall motion interpretation. ? 3. Left ventricular chamber dimension is normal. ? 4. Left ventricular systolic function is normal, estimated at 60-65%. ? 5. The left ventricular diastolic function is grade I diastolic dysfunction. ? 6. E/e' 5 is not elevated. ? 7. Left atrial chamber dimension is mildly enlarged. ? 8. There is trace tricuspid valve regurgitation. ? 9. No pulmonary hypertension, estimated pulmonary arterial systolic pressure is 37 mmHg. (3) Tremor: Code(s): R25.1 - Tremor, unspecified Status: Acute Assessment and Plan: Appears to be intention tremor however, her witnessed tremors while she was asleep in the recliner at home. EEG completed Neurology consult for new onset tremors and recommendations are greatly appreciated. Plan Appreciate rec's from consulting services EEG Feeding:heart healthy diet Analgesia:lyrica, tramadol Thromboembolic prophylaxis: lovenox Ulcer prophylaxis: protonix Glycemic control: N/a, will obtain Hgb A1c and lipids Bowel regimen: miralax prn Lines: PIV Antibiotics: N/A Subjective Date/time seen: 05/22/23 07:19 Interval history: This is a 73-year-old female with a past medical history of depression, diastolic heart dysfunction, hypertension, hypothyroidism, migraines, obesity, restless legs syndrome, CVA, and pulmonary nodules.? She presented to [facility] on the evening of 05/20 after her found her slumped in her recliner and having tremulous shaking.? She says that her woke her up and asked her to stop shaking but she was unable to so he called EMS.? Per the ER HPI when EMS arrived and her heart rate was in the 200's which resolved after a 500 cc fluid bolus. Currently her heart rate has ranged from 100's-110's on telemetry. She denies any recent illness and denies any prior tremulous episodes such as this.? She does say that in January of this year she had a UTI and sepsis for which she was admitted at [facility] and then discharged home with home health.? She re-presented in February of 2023 with nausea, vomiting, and chest pain. A cardiac workup was completed and she was found to have SVT for which she was started on metoprolol by cardiology.? Prior to this episode she was feeling well and in good health.? She says that yesterday during the day she was out shopping with 1 of her friends and had no complaints.? During my assessment she is found resting in bed and appears uncomfortable.? She is having intermittent bilateral upper extremity tremors. Nothing seems to make the tremors worse and nothing makes them better.? She says this is been going on since last night. They appear to be intention tremors as when she is talking or distracted the tremors subside. She den
[2023-05-22] MEDS: ENOXAPARIN 40 MG/0.4 ML SYRINGE SUB-Q (08:25)
[2023-05-22] MEDS: SPIRONOLACTONE 25 MG TABLET PO (08:25)
[2023-05-22] MEDS: POTASSIUM CHLORIDE 20 MEQ ER TABLET PO (08:26)
[2023-05-22] MEDS: CLOPIDOGREL BISULFATE 75 MG TABLET PO (08:26)
[2023-05-22] MEDS: PANTOPRAZOLE 40 MG TABLET PO (08:26)
[2023-05-22] MEDS: METOPROLOL TARTRATE 50 MG TAB PO (08:26)
[2023-05-22] MEDS: FUROSEMIDE 40 MG TABLET PO (08:26)
[2023-05-22] MEDS: PREGABALIN (*CRX) 75 MG CAPSULE 150 MG PO ×3 (08:26→16:29)
--- NOTE | 2023-05-22 10:52 | PM.CNCAR ---
Assessment and Plan Assessment and plan (1) PSVT (paroxysmal supraventricular tachycardia): Code(s): I47.1 - Supraventricular tachycardia Status: Acute Assessment and Plan: No documented recurrence of SVT thus far. No evidence for atrial fibrillation or atrial flutter telemetry or no rhythm strips per EMS. Continue to monitor clinically. Increase metoprolol tartrate to 75 mg twice daily for additional arrhythmia control as BP and heart rate tolerate. Patient has an outpatient referral to electrophysiology with Dr. Novak which she intends to keep. Regardless, correction of her hyperthyroid state crucial to reduce risk for arrhythmias and or ectopy as noted. From a cardiac perspective patient fairly stable at this point. No further invasive cardiovascular workup indicated at this time unless sustained tachyarrhythmia and or pauses noted on telemetry. Provided no new issues patient stable for discharge from cardiac perspective. She will follow-up with me as an outpatient in the next 4-6 weeks and with electrophysiology as scheduled later this month ago. We discussed Valsalva maneuver at the potential reduction in further arrhythmia risk with increasing metoprolol. Counseled to monitor for bradycardia and keep in mind if she were to develop ventricular bigeminy this may give the impression of bradycardia which needs reported any new concerns, worsening symptoms, near-syncope or syncope immediately. Patient verbalized understanding and agreed with plan of care. Patient's daughter is at bedside also discussed at length. All questions answered to their satisfaction. Overall, it appears patient presented with intravascular volume depletion, symptomatic hyperthyroidism and compensatory sinus tachycardia which was controlled with IV fluids resumption of her oral metoprolol. DVT prophylaxis. (2) Frequent PVCs: Code(s): I49.3 - Ventricular premature depolarization Status: Acute Assessment and Plan: Noted on telemetry, patient relatively asymptomatic in this regard. Increase metoprolol tartrate to 75 mg twice daily for additional suppression. Electrolytes are stable. This is no doubt contributed in part to hyperthyroid state in which correction is strongly advised. Levothyroxine has been adjusted in this regard. (3) Tachycardia: Code(s): R00.0 - Tachycardia, unspecified Status: Acute Assessment and Plan: Heart rate improved since admission after IV fluids. Patient maintaining sinus rhythm with frequent PVCs on telemetry. (4) Hyperthyroidism: Code(s): E05.90 - Thyrotoxicosis, unspecified without thyrotoxic crisis or storm Status: Acute Assessment and Plan: TSH less than 0.015 whereas it was 1.January. Management per primary service. Levothyroxine adjusted. (5) Hypertension: Qualifiers: Hypertension type: primary hypertension Qualified Code(s): I10 - Essential (primary) hypertension Code(s): I10 - Essential (primary) hypertension Status: Acute Assessment and Plan: BP variable but reasonably controlled overall. Continue metoprolol but increase to 75mg twice daily. Continue Spironolactone 25 mg daily for BP control. (6) Tremor: Code(s): R25.1 - Tremor, unspecified Status: Acute Assessment and Plan: Defer to Neurology in this regard. Likely consequence of hyperthyroid state, however, at present the symptoms have resolved. Evaluate for infection. Further workup per primary service as well. PT OT evaluation to assess for fall risk. (7) History of CVA (cerebrovascular accident): Code(s): Z86.73 - Personal history of transient ischemic attack (TIA), and cerebral infarction without residual deficits Status: Acute Assessment and Plan: Continue clopidogrel. Patient is intolerant to statin therapy although LDL well controlled at 60. History of Present Illness History of Present Illness Consult d
--- NOTE | 2023-05-22 11:29 | WPDNEUROLOGY ---
Neurology EEG Report General Information Date of Study: 05/22/23 TEST Routine EEG DIAGNOSIS Tremors CONDITION OF RECORDING Awake, drowsy, asleep EEG NUMBER [id number] CLINICAL HISTORY Patient has been having episodes of tremulousness for the past week. EEG DESCRIPTION During the awake state with eyes closed the background consists of 8 Hz posterior dominant rhythm which attenuates appropriately with eye opening. The recording is continuous. There is a well developed anterior-posterior gradient. No significant asymmetries of background activities are noted. With drowsiness there is waxing and waning of the dominant rhythm with eventual replacement by a mixture of beta, alpha, and theta activity. As the patient enters stage II sleep, symmetrical spindles are present. Arousal is unremarkable. There are no epileptiform discharges or seizures during this recording. IMPRESSION This is a normal routine EEG recorded in awake and asleep states. There are no electrographic seizures identified, nor are there any epileptiform discharges. Please note that a normal EEG cannot exclude a seizure disorder. Clinical correlation is recommended.
--- NOTE | 2023-05-22 16:34 | WPDNEURCNPN ---
Assessment and Plan Assessment and plan (1) Tremor: Code(s): R25.1 - Tremor, unspecified Status: Acute (2) Hyperthyroidism: Code(s): E05.90 - Thyrotoxicosis, unspecified without thyrotoxic crisis or storm Status: Acute (3) Right leg weakness: Code(s): R29.898 - Other symptoms and signs involving the musculoskeletal system Status: Acute (4) History of CVA (cerebrovascular accident): Code(s): Z86.73 - Personal history of transient ischemic attack (TIA), and cerebral infarction without residual deficits Status: Acute Plan Gilma Mills is a 73 year old female with a history of depression, diastolic heart dysfunction, hypertension, hypothyroidism, migraines, RLS, prior stroke presenting for evaluation of tremulousness. Could be related to hyperthyroid state. She did not have any tremor on exam for me. Routine EEG was normal. Can obtain MRI brain to evaluate slight RLE weakness especially in the setting of prior history of stroke. - MRI brain w/o contrast Consult date: 05/22/23 Reason for consult: Tremor HPI: Gilma Mills is a 73 year old female with a history of depression, diastolic heart dysfunction, hypertension, hypothyroidism, migraines, RLS, prior stroke presenting for evaluation of tremulousness. Patient fell asleep on a recliner on the day of presentation. She woke up to her tell her to stop shaking. Patient does not remember what the movements were but she described them as erratic shaking of the just the arms. Patient's called EMS. /in the ER her HR was in the 200s. She was given IV fluids which brought her HR down to 100s. Since admission, she continues to have intermittent bilateral upper extremity tremulousness. She had an EEG done that was normal. Patient reports that she has full awareness during the episodes of tremulousness. They can last a few seconds to several minutes. Patient also mentioned that she has had a few episodes where she has randomly dropped things from her hands. She denies any prior history of seizures. Review of Systems Review of Systems: All systems reviewed & are unremarkable except as noted in HPI and below PMFSH Past Medical History Medical History Cerebrovascular accident Degenerative joint disease Depression Diastolic dysfunction On echocardiogram in April 2021. Functional bowel disorder Hypertension Hypothyroidism Migraine Mitral valve prolapse Morbid obesity Primary stress urinary incontinence Restless leg syndrome Surgical History Surgical History H/O spinal fusion History of bilateral knee arthroplasty (2007) History of hysterectomy (1996) History of shoulder surgery S/P foot surgery, right Family History Family History Mother Breast cancer Father Chronic obstructive pulmonary disease Sibling Breast cancer Multiple sclerosis Sibling Lung cancer Social History Social History Social History: Surrogate medical decision maker: Hayden Lina, spouse. Code status: Full code. Smoking status: Never smoker Second hand tobacco smoke exposure: No Alcohol intake: never Drinks per week: 0 Substance use: never Substance use type: prescription drug Lack of Transportation: No Lack of Food: Never True Current Housing: I Have Housing Concerned About Future Housing: No Difficulty Paying Gas/Electric Bills: YES Difficulty Paying for Meds: No Currently Unemployed: No Education: High School Diploma/GED Difficulty w/ Childcare or Family Care: No Additional living arrangements comments: Lives with in [place]. 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
[2023-05-22] MEDS: rOPINIRole HCL 1 MG TABLET 4 MG PO (20:09)
[2023-05-22] MEDS: EZETIMIBE 10 MG TABLET PO (20:09)
[2023-05-22] MEDS: METOPROLOL TARTRATE 25 MG TABLET 75 MG PO (20:10)
[2023-05-22] MEDS: MELATONIN 3 MG TABLET PO (20:10)
[2023-05-22] MEDS: NORTRIPTYLINE HCL 25 MG CAPSULE PO (20:10)
[2023-05-23] VITALS: PULSE 76
[2023-05-23] MEDS: LORazepam INJ (*CRX) 2 MG/ML VIAL 1 MG IV PUSH (00:30)
[2023-05-23 00:37] LABS: Glucose Point of Care 108 mg/dl (65-105)
--- NOTE | 2023-05-23 01:00 | PC.NURSE ---
This nurse was notified at 0000 that the patient had called out with complaints of tremors. This nurse, another RN, and the charge nurse went into the room. Upon assessment patient was A&O, vitals were stable, and blood sugar was normal. Another RN called the provider and she came to bedside. Upon arrival, the provider ordered 1mg of Ativan and that was administered. Pt sleeping and tremors resolved.
[2023-05-23 04:00] VITALS: PULSE 67
[2023-05-23] MEDS: traMADol HCL (*CRX) 50 MG TABLET PO ×2 (05:27→12:30)
[2023-05-23] MEDS: LEVOTHYROXINE SODIUM 12.5 MCG TABLET PO (05:30)
[2023-05-23] MEDS: LEVOTHYROXINE SODIUM 100 MCG TABLET PO (05:30)
--- NOTE | 2023-05-23 05:52 | PC.NURSE ---
This nurse reviewed Ana Oconnor's (license pending) charting and agrees with entries for 05-22-23 and 05-23-23.
[2023-05-23 05:57] VITALS: BP 117/85; PULSE 80; RESP 18; TEMP 36.1; O2SAT 98
[2023-05-23 06:23] LABS: Basophils Percent Auto 0.3 % (0.2-1.2); Eosinophils Absolute Auto 0.3 K/mm3 (0-0.3); Eosinophils Percent Auto 5.1 % (0-4.4); Hematocrit 38.9 % (37.0-47.0); Hemoglobin 12.3 g/dL (12.0-15.0); Immature Granulocyte Absolute 0.02 K/mm3 (0.00-0.031); Immature Granulocyte Percent A 0.3 % (0-0.5); Lymphocytes Absolute Auto 1.26 K/mm3 (0.9-3.2); Lymphocytes Percent Auto 20.6 % (18.3-44.2); Mean Corpuscular HGB Conc 31.6 g/dl (32-36); Mean Corpuscular Hemoglobin 28.9 pg (26-34); Mean Corpuscular Volume 91.5 fl (80-100); Mean Platelet Volume 8.9 fl (7.4-10.4); Monocytes Absolute Auto 0.6 K/mm3 (0.1-0.6); Monocytes Percent Auto 9.3 % (2.6-8.5); Neutrophils Percent Auto 64.4 % (45.5-73.1); Platelet Count Result 229 k/mm3 (150-375); Red Blood Count 4.25 M/mm3 (4.2-5.4); Red Cell Distribution Width 13.7 % (11.5-14.5); White Blood Count 6.1 K/mm3 (4.5-10.0)
[2023-05-23 06:37] LABS: Alanine Aminotransferase 21 U/L (6-35); Albumin Level 3.6 g/dL (3.5-5.1); Alkaline Phosphatase 83 U/L (38-126); Anion Gap 7 mmol/L (8-16); Aspartate Amino Transferase 28 U/L (14-36); Bilirubin,Total 0.4 mg/dL (0.2-1.3); Blood Urea Nitrogen 10 mg/dL (7-17); Carbon Dioxide 34 mmol/L (22-30); Chloride 97 mmol/L (98-107); Estimated CRCL calculation 68 ml/min; Estimated Glomerular Filt Rate 55; Glucose 112 mg/dL (65-110); Magnesium 2.1 mg/dL (1.6-2.3); Potassium 3.8 mmol/L (3.4-5.0); Sodium 138 mmol/L (137-145)
[2023-05-23 08:11] VITALS: PULSE 82
[2023-05-23] MEDS: METOPROLOL TARTRATE 25 MG TABLET 75 MG PO (08:11)
[2023-05-23] MEDS: PREGABALIN (*CRX) 75 MG CAPSULE 150 MG PO ×3 (08:11→16:01)
[2023-05-23] MEDS: PANTOPRAZOLE 40 MG TABLET PO (08:11)
[2023-05-23] MEDS: FUROSEMIDE 40 MG TABLET PO (08:11)
[2023-05-23] MEDS: POTASSIUM CHLORIDE 20 MEQ ER TABLET PO (08:11)
[2023-05-23] MEDS: OMEGA 3 POLYUNSAT FATTY ACIDS 1 GM CAP PO (08:11)
[2023-05-23] MEDS: SPIRONOLACTONE 25 MG TABLET PO (08:11)
[2023-05-23] MEDS: ENOXAPARIN 40 MG/0.4 ML SYRINGE SUB-Q (08:11)
[2023-05-23] MEDS: CLOPIDOGREL BISULFATE 75 MG TABLET PO (08:11)
--- NOTE | 2023-05-23 08:43 | PM.IMPN ---
Progress Note: A&P Assessment and Plan (1) Hyperthyroidism: Code(s): E05.90 - Thyrotoxicosis, unspecified without thyrotoxic crisis or storm Status: Acute Assessment and Plan: Patient with history of hypothyroidism on Synthroid 125 mcg daily for the last 4 years. Last TSH from 01/2023 was normal at 1.420. TSH this admission is <0.015 with normal T3, T4. Subclinical hyperthyroidism. However she does present with tachycardia. Will decrease dose by 12.5 mcg. On tele (2) Tachycardia: Code(s): R00.0 - Tachycardia, unspecified Status: Acute Assessment and Plan: EMS reports SVT in the 200's but no EKG from field EKG on admission to the ED shows ST with first degree AV block, PVC, and borderline ST-T wave abnormality in high lateral leads. 03/05/2023 during admission was seen by cards for SVT and started metoprolol and speaks to escalation of therapy should arrhythmias re-occur. BNP normal Trops negative ST on tele with 1st degree AV block Cardiology consulted and rec's are greatly appreciated. Outpatient follow up with Dr Guzman in 4-6 weeks with electrophysiology with Dr Novak previously scheduled. Increase metoprolol to 75 mg BID. ECHO 01/30/23 Summary ? 1. Technically suboptimal study due to poor sonographic images. ? 2. Definity contrast administered improved wall motion interpretation. ? 3. Left ventricular chamber dimension is normal. ? 4. Left ventricular systolic function is normal, estimated at 60-65%. ? 5. The left ventricular diastolic function is grade I diastolic dysfunction. ? 6. E/e' 5 is not elevated. ? 7. Left atrial chamber dimension is mildly enlarged. ? 8. There is trace tricuspid valve regurgitation. ? 9. No pulmonary hypertension, estimated pulmonary arterial systolic pressure is 37 mmHg. (3) Tremor: Code(s): R25.1 - Tremor, unspecified Status: Acute Assessment and Plan: Appears to be intention tremor however, her witnessed tremors while she was asleep in the recliner at home. EEG completed and was normal Neurology consult for new onset tremors and recommendations are greatly appreciated. MRI brain completed. Awaiting final read and blessing from neurology to d/c home. Plan Feeding:heart healthy diet Analgesia:lyrica, tramadol Thromboembolic prophylaxis: lovenox Ulcer prophylaxis: protonix Glycemic control: N/a, will obtain Hgb A1c and lipids Bowel regimen: miralax prn Lines: PIV Antibiotics: N/A Subjective Date/time seen: 05/23/23 08:43 Interval history: This is a 73-year-old female with a past medical history of depression, diastolic heart dysfunction, hypertension, hypothyroidism, migraines, obesity, restless legs syndrome, CVA, and pulmonary nodules.? She presented to [place] ER on the evening of 05/20 after her found her slumped in her recliner and having tremulous shaking.? She says that her woke her up and asked her to stop shaking but she was unable to so he called EMS.? Per the ER HPI when EMS arrived and her heart rate was in the 200's which resolved after a 500 cc fluid bolus. Currently her heart rate has ranged from 100's-110's on telemetry. She denies any recent illness and denies any prior tremulous episodes such as this.? She does say that in January of this year she had a UTI and sepsis for which she was admitted at [facility] and then discharged home with home health.? She re-presented in February of 2023 with nausea, vomiting, and chest pain. A cardiac workup was completed and she was found to have SVT for which she was started on metoprolol by cardiology.? Prior to this episode she was feeling well and in good health.? She says that yesterday during the day she was out shopping with 1 of her friends and had no complaints.? During my assessment she is found resting in bed and appears uncomfortable.? She is having intermittent bilateral upper extremity tremors. Nothing seems to make the tremo
--- NOTE | 2023-05-23 11:31 | PM.PNCARD ---
Progress Note: A&P Assessment and Plan (1) PSVT (paroxysmal supraventricular tachycardia): Code(s): I47.1 - Supraventricular tachycardia Status: Acute Assessment and Plan: No recurrence of his VT. Continue metoprolol 75 mg b.i.d.. She does have follow-up with Dr. valdovinos from electrophysiology (2) Frequent PVCs: Code(s): I49.3 - Ventricular premature depolarization Status: Acute Assessment and Plan: Continue metoprolol 75 mg b.i.d. follow-up with electrophysiology and Dr. Lopez likely. Likely iatrogenic hyperthyroidism contributing to this (3) Tachycardia: Code(s): R00.0 - Tachycardia, unspecified Status: Acute Assessment and Plan: Heart rate improved since admission after IV fluids. Patient maintaining sinus rhythm with frequent PVCs on telemetry. (4) Hyperthyroidism: Code(s): E05.90 - Thyrotoxicosis, unspecified without thyrotoxic crisis or storm Status: Acute Assessment and Plan: TSH less than 0.015 whereas it was 1.January. Management per primary service. Levothyroxine adjusted. (5) Hypertension: Qualifiers: Hypertension type: primary hypertension Qualified Code(s): I10 - Essential (primary) hypertension Code(s): I10 - Essential (primary) hypertension Status: Acute Assessment and Plan: BP variable but reasonably controlled overall. Continue metoprolol but increase to 75mg twice daily. Continue Spironolactone 25 mg daily for BP control. (6) Tremor: Code(s): R25.1 - Tremor, unspecified Status: Acute Assessment and Plan: Defer to Neurology in this regard. Likely consequence of hyperthyroid state, however, at present the symptoms have resolved. Evaluate for infection. Further workup per primary service as well. PT OT evaluation to assess for fall risk. (7) History of CVA (cerebrovascular accident): Code(s): Z86.73 - Personal history of transient ischemic attack (TIA), and cerebral infarction without residual deficits Status: Acute Assessment and Plan: Continue clopidogrel. Patient is intolerant to statin therapy although LDL well controlled at 60. Subjective Date/time seen: Date of service 05/23/23 11:31 Interval history: This is a 73-year-old female with a past medical history of depression, diastolic heart dysfunction, hypertension, hypothyroidism, migraines, obesity, restless legs syndrome, CVA, and pulmonary nodules.? She presented to [place] [facility] on the evening of 05/20 after her found her slumped in her recliner and having tremulous shaking.? She says that her woke her up and asked her to stop shaking but she was unable to so he called EMS.? Per the ER HPI when EMS arrived and her heart rate was in the 200's which resolved after a 500 cc fluid bolus. Currently her heart rate has ranged from 100's-110's on telemetry. She denies any recent illness and denies any prior tremulous episodes such as this.? She does say that in January of this year she had a UTI and sepsis for which she was admitted at [facility] and then discharged home with home health.? She re-presented in February of 2023 with nausea, vomiting, and chest pain. A cardiac workup was completed and she was found to have SVT for which she was started on metoprolol by cardiology.? Prior to this episode she was feeling well and in good health.? She says that yesterday during the day she was out shopping with 1 of her friends and had no complaints.? During my assessment she is found resting in bed and appears uncomfortable.? She is having intermittent bilateral upper extremity tremors. Nothing seems to make the tremors worse and nothing makes them better.? She says this is been going on since last night. They appear to be intention tremors as when she is talking or distracted the tremors subside. She denies numbness or tingling in her arms, denies dysarthria, dysphonia, and vision changes.? She does say that
[2023-05-23 12:00] VITALS: PULSE 83
--- NOTE | 2023-05-23 13:00 | WPDNEUROLOGY ---
Neurology EEG Report TEST eeg DIAGNOSIS tremors CONDITION OF RECORDING awake drowsy and sleep EEG NUMBER [id number] CLINICAL HISTORY patient reports she was home sleeping when she began having tremors in her upper extremities and also some confusion. EEG DESCRIPTION Basic resting occipital frequency consists of low to medium voltage 8 to 9 hertz per 2nd alpha admixed with low-voltage 15 to 18 hertz per 2nd beta. Bilateral symmetrical sleep activity seen with normal and symmetrical sleep spindles. Multiple a artifacts are also noted but with good anteroposterior gradient. Hyperventilation not done photic stimulation not done. Non paroxysmal. Nonfocal. Nonlateralizing. IMPRESSION No significant abnormalities noted.
--- NOTE | 2023-05-23 13:15 | WPDNEUROLOGY ---
Neurology EEG Report General Information Date of Study: 05/22/23 TEST EEG DIAGNOSIS tremors CONDITION OF RECORDING awake drowsy and sleep EEG NUMBER [id number] CLINICAL HISTORY patient reports she was home sleeping when she began having tremors in her upper extremities and also some confusion. EEG DESCRIPTION Basic resting occipital frequency consists of low to medium voltage 8 to 9 hertz per 2nd alpha admixed with low-voltage 15 to 18 hertz per 2nd beta. Bilateral symmetrical sleep activity seen with normal and symmetrical sleep spindles in addition to multiple movement artifacts. Photic stimulation not done. Hyperventilation not done. Non paroxysmal. Nonfocal. Nonlateralizing. IMPRESSION No significant abnormalities noted.
[2023-05-23 14:00] VITALS: BP 120/88; PULSE 78; RESP 18; TEMP 36.6; O2SAT 99
--- NOTE | 2023-05-23 15:29 | PM.DS ---
DS: Admitting Diagnosis Discharge Date 05/23 Admitting Diagnosis tremors DS: Discharge Diagnosis Discharge Diagnosis (1) Hyperthyroidism: Code(s): E05.90 - Thyrotoxicosis, unspecified without thyrotoxic crisis or storm Status: Acute Assessment and Plan: Patient with history of hypothyroidism on Synthroid 125 mcg daily for the last 4 years. Last TSH from 01/2023 was normal at 1.420. TSH this admission is <0.015 with normal T3, T4. Subclinical hyperthyroidism. However she does present with tachycardia. Will decrease dose by 12.5 mcg. On tele (2) Tachycardia: Code(s): R00.0 - Tachycardia, unspecified Status: Acute Assessment and Plan: EMS reports SVT in the 200's but no EKG from field EKG on admission to the ED shows ST with first degree AV block, PVC, and borderline ST-T wave abnormality in high lateral leads. 03/05/2023 during admission was seen by cards for SVT and started metoprolol and speaks to escalation of therapy should arrhythmias re-occur. BNP normal Trops negative ST on tele with 1st degree AV block Cardiology consulted and rec's are greatly appreciated. Outpatient follow up with Dr Guzman in 4-6 weeks with electrophysiology with Dr Novak previously scheduled. Increase metoprolol to 75 mg BID. ECHO 01/30/23 Summary ? 1. Technically suboptimal study due to poor sonographic images. ? 2. Definity contrast administered improved wall motion interpretation. ? 3. Left ventricular chamber dimension is normal. ? 4. Left ventricular systolic function is normal, estimated at 60-65%. ? 5. The left ventricular diastolic function is grade I diastolic dysfunction. ? 6. E/e' 5 is not elevated. ? 7. Left atrial chamber dimension is mildly enlarged. ? 8. There is trace tricuspid valve regurgitation. ? 9. No pulmonary hypertension, estimated pulmonary arterial systolic pressure is 37 mmHg. (3) Tremor: Code(s): R25.1 - Tremor, unspecified Status: Acute Assessment and Plan: Appears to be intention tremor however, her witnessed tremors while she was asleep in the recliner at home. EEG completed and was normal Neurology consult for new onset tremors and recommendations are greatly appreciated. MRI brain completed. Awaiting final read and blessing from neurology to d/c home. Plan Feeding:heart healthy diet Analgesia:lyrica, tramadol Thromboembolic prophylaxis: lovenox Ulcer prophylaxis: protonix Glycemic control: N/a, will obtain Hgb A1c and lipids Bowel regimen: miralax prn Lines: PIV Antibiotics: N/A DS: Summary Hospital Course Hospital Course: Interval history: This is a 73-year-old female with a past medical history of depression, diastolic heart dysfunction, hypertension, hypothyroidism, migraines, obesity, restless legs syndrome, CVA, and pulmonary nodules.? She presented to [place] [facility] on the evening of 05/20 after her found her slumped in her recliner and having tremulous shaking.? She says that her woke her up and asked her to stop shaking but she was unable to so he called EMS.? Per the ER HPI when EMS arrived and her heart rate was in the 200's which resolved after a 500 cc fluid bolus. Currently her heart rate has ranged from 100's-110's on telemetry. She denies any recent illness and denies any prior tremulous episodes such as this.? She does say that in January of this year she had a UTI and sepsis for which she was admitted at [facility] and then discharged home with home health.? She re-presented in February of 2023 with nausea, vomiting, and chest pain. A cardiac workup was completed and she was found to have SVT for which she was started on metoprolol by cardiology.? Prior to this episode she was feeling well and in good health.? She says that yesterday during the day she was out shopping with 1 of her friends and had no complaints.? During my assessment she is found resting in bed and appears uncomfortable.? She is hav
== END 2023-05-23 17:25 | disposition home or self-care (01) ==
LOC: ANHED 05-21 04:17 → ANH3MEDSUR 05-21 07:02
PROVIDERS: Nurse Practitioner Acute Care; Admitting Provider Internal Medicine; Emergency Provider Student in an Organized Health Care Education/Training Program; PCP Internal Medicine; Visit Provider Student in an Organized Health Care Education/Training Program
DX: E05.90 Thyrotoxicosis, unspecified without thyrotoxic crisis or storm (principal); R00.0 Tachycardia, unspecified; R55 Syncope and collapse; R41.82 Altered mental status, unspecified; R07.9 Chest pain, unspecified; F41.9 Anxiety disorder, unspecified; F32.A Depression, unspecified; Z20.822 Contact with and (suspected) exposure to COVID-19; I11.0 Hypertensive heart disease with heart failure; I50.30 Unspecified diastolic (congestive) heart failure; I49.3 Ventricular premature depolarization; E03.9 Hypothyroidism, unspecified; Z79.899 Other long term (current) drug therapy; G43.909 Migraine, unspecified, not intractable, without status migrainosus; R94.31 Abnormal electrocardiogram [ECG] [EKG]; R79.1 Abnormal coagulation profile; Z86.16 Personal history of COVID-19; R91.1 Solitary pulmonary nodule; R32 Unspecified urinary incontinence; L03.116 Cellulitis of left lower limb; L03.115 Cellulitis of right lower limb; G25.81 Restless legs syndrome; E66.01 Morbid (severe) obesity due to excess calories; Z68.41 Body mass index [BMI] 40.0-44.9, adult; Z87.440 Personal history of urinary (tract) infections; Z86.73 Personal history of transient ischemic attack (TIA), and cerebral infarction without residual deficits; Z79.02 Long term (current) use of antithrombotics/antiplatelets; Z79.891 Long term (current) use of opiate analgesic
CPT/HCPCS: 36415; 70450; 70551; 71046; 71275; 80053; 80061; 80307; 81003; 82140; 82948; 83036; 83605; 83690; 83735; 83880; 84439; 84443; 84480; 84484; 85025; 85380; 85610; 85652; 85730; 86140; 86850; 86900; 86901; 87040; 87636; 93005; 93970; 95816; 96365; 96366; 96372; 96375; 97161; 97165; 99285; A9270; G0378; J1650; J2060; J3370; J7120; Q9967

== ENCOUNTER 2023-05-24 03:39 | Observation (INO) | payer MEDICARE, SELFPAY ==
[2023-05-24] VITALS (16 sets, daily range): BP systolic 104–165; BP diastolic 42–104; PULSE 80–124; RESP 16–22; TEMP 36.2–36.7; O2SAT 93–99
--- NOTE | ~2023-05-24 | MR_ITS ---
MRI of the cervical spine Clinical History: Tremors Technique: Axial T2-weighted and gradient images, and sagittal T1-weighted, T2-weighted, and STIR ramiro ges were acquired. Findings: No fracture identified. There is minimal grade 1 anterolisthesis of C4 over C5. No suspicio us bone marrow signal abnormality seen. At C2-C3, there is no disc bulge or herniation. No spinal canal stenosis, cord compression, or neural foraminal narrowing. There is left facet arthropathy. At C3-C4, there is no disc bulge or herniation. There is no central canal stenosis or cord compressio n. There is bilateral facet arthropathy, right worse than left, with probable mild bilateral neural f oraminal narrowing. At C4-C5, there is minimal disc bulge. No central canal stenosis or cord compression. There is bilate ral facet arthropathy with right neural foraminal narrowing. At C5-C6, there is disc osteophyte complex which minimally flattens the ventral cord. There is severe left neural foraminal narrowing and mild right neural foraminal narrowing. At C6-C7, there is minimal disc osteophyte convex. No spinal canal stenosis, cord compression, or def inite neural foraminal narrowing. No abnormal signal seen in the spinal cord. Paravertebral soft tissues are unremarkable. Impression: Moderate degenerative spondylosis at C5-C6. Mild degenerative changes in the remainder of the cervical spine, as above. Minimal grade 1 anterolisthesis of C4 over C5. Reviewed, dictated and finalized at [facility]. Impression: Moderate degenerative spondylosis at C5-C6. Mild degenerative changes in the remainder of the cervical spine, as above. Minimal grade 1 anterolisthesis of C4 over C5.
--- NOTE | 2023-05-24 04:13 | ED.GENADULT ---
HPI - General Adult General Chief complaint: Unspecified <Chela Watkins MD - Last Filed: 05/24/23 07:17> Stated complaint: INVOLUNTARY TREMMORS <Chela Watkins MD - Last Filed: 05/24/23 07:17> Time Seen by Provider: 05/24/23 03:55 <Chela Watkins MD - Last Filed: 05/24/23 07:17> History of Present Illness HPI narrative: Patient brought to the emergency department from home with tremors. She was recently admitted and had thorough work-up for the same. She was discharged home but was unable to pickle pumper the prescription for the tremors because it was not sent to the pharmacy. Tonight her tremors are severe. She is uncomfortable as a result. She is accompanied by her family. Patient is very pleasant but tremor is constant. Denies all other review of systems <Chela Watkins MD - Last Filed: 05/24/23 07:17> Related Data Home medications: Home Medications Medication Instructions Recorded Confirmed ezetimibe 10 mg tablet 10 mg PO HS 03/22/20 05/21/23 furosemide 40 mg tablet 40 mg PO DAILY 03/22/20 05/21/23 nortriptyline 25 mg capsule 25 mg PO HS 03/22/20 05/21/23 ropinirole 2 mg tablet 4 mg PO HS 03/22/20 05/21/23 spironolactone 100 mg tablet 25 mg PO DAILY 03/22/20 05/21/23 clopidogrel 75 mg tablet (Plavix) 75 mg PO DAILY 01/29/23 05/21/23 pregabalin 150 mg capsule 150 mg PO TID 01/29/23 05/21/23 buspirone 15 mg tablet 15 mg PO BID PRN Anxiety 03/05/23 05/21/23 pantoprazole 40 mg tablet,delayed 40 mg PO DAILY 03/05/23 05/21/23 release potassium chloride 20 mEq 20 meq PO DAILY 03/05/23 05/21/23 tablet,extended release(part/cryst) tramadol 50 mg tablet 50 mg PO BID PRN Pain 03/05/23 05/21/23 <Chela Watkins MD - Last Filed: 05/24/23 07:17> Allergies/adverse reactions: Allergies Allergy/AdvReac Type Severity Reaction Status Date / Time adhesive Allergy Intermediate RASH Verified 05/24/23 03:51 alendronate sodium Allergy Mild STOMACH Verified 05/24/23 03:51 PAIN atorvastatin Allergy Unknown Unknown Verified 05/24/23 03:51 tizanidine Allergy Unknown Unknown Verified 05/24/23 03:51 cefdinir [From Omnicef] AdvReac Unknown Rash Verified 05/24/23 03:51 <Chela Watkins MD - Last Filed: 05/24/23 07:17> Review of Systems Review of Systems: Review of systems negative except for what is documented in the HPI <Chela Watkins MD - Last Filed: 05/24/23 07:17> PMFSH Past Medical History Medical History: Medical History Cerebrovascular accident Degenerative joint disease Depression Diastolic dysfunction On echocardiogram in April 2021. Functional bowel disorder Hypertension Hypothyroidism Migraine Mitral valve prolapse Morbid obesity Primary stress urinary incontinence Restless leg syndrome <Chela Watkins MD - Last Filed: 05/24/23 07:17> Surgical History Surgical History: Surgical History H/O spinal fusion History of bilateral knee arthroplasty (2007) History of hysterectomy (1996) History of shoulder surgery S/P foot surgery, right <Chela Watkins MD - Last Filed: 05/24/23 07:17> Family History Family History: Family History Mother Breast cancer Father Chronic obstructive pulmonary disease Sibling Breast cancer Multiple sclerosis Sibling Lung cancer <Chela Watkins MD - Last Filed: 05/24/23 07:17> Social History Social History: Social History Social History: Surrogate medical decision maker: Hayden Lina, spouse. Code status: Full code. Smoking status: Never smoker Second hand tobacco smoke exposure: No Alcohol intake: never Drinks per week: 0 Substance use: never Substance use type: prescription drug Lack of Transportation: No Lack of Food: Never
[2023-05-24] MEDS: CLORAZEPATE DIPOTASSIUM (*CRX) 3.75 MG TABLET PO (04:31)
--- NOTE | 2023-05-24 06:13 | PC.NURSE ---
Pt c/o increase in tremors. EDP [place] notified.
[2023-05-24] MEDS: LORazepam INJ (*CRX) 2 MG/ML VIAL 1 MG IV PUSH (06:22)
[2023-05-24 06:35] LABS: Basophils Percent Auto 0.5 % (0.2-1.2); Eosinophils Absolute Auto 0.3 K/mm3 (0-0.3); Eosinophils Percent Auto 4.5 % (0-4.4); Hematocrit 42.1 % (37.0-47.0); Hemoglobin 13.7 g/dL (12.0-15.0); Immature Granulocyte Absolute 0.02 K/mm3 (0.00-0.031); Immature Granulocyte Percent A 0.3 % (0-0.5); Lymphocytes Absolute Auto 1.34 K/mm3 (0.9-3.2); Lymphocytes Percent Auto 18.1 % (18.3-44.2); Mean Corpuscular HGB Conc 32.5 g/dl (32-36); Mean Corpuscular Volume 89.2 fl (80-100); Mean Platelet Volume 8.8 fl (7.4-10.4); Monocytes Absolute Auto 0.7 K/mm3 (0.1-0.6); Monocytes Percent Auto 9.3 % (2.6-8.5); Neutrophils Percent Auto 67.3 % (45.5-73.1); Platelet Count Result 246 k/mm3 (150-375); Red Blood Count 4.72 M/mm3 (4.2-5.4); Red Cell Distribution Width 13.8 % (11.5-14.5); White Blood Count 7.4 K/mm3 (4.5-10.0)
[2023-05-24 06:51] LABS: Alanine Aminotransferase 24 U/L (6-35); Albumin Level 4.3 g/dL (3.5-5.1); Alkaline Phosphatase 101 U/L (38-126); Anion Gap 7 mmol/L (8-16); Aspartate Amino Transferase 34 U/L (14-36); Bilirubin,Total 0.5 mg/dL (0.2-1.3); Blood Urea Nitrogen 15 mg/dL (7-17); Calcium 9.5 mg/dL (8.4-10.2); Carbon Dioxide 32 mmol/L (22-30); Chloride 97 mmol/L (98-107); Creatine Kinase 70 U/L (30-135); Estimated CRCL calculation 61 ml/min; Estimated Glomerular Filt Rate 49; Glucose 110 mg/dL (65-110); Sodium 136 mmol/L (137-145)
[2023-05-24] MEDS: HYDROcodone/acetaminophen (*CRX) 5-325 MG TABLET 1 TAB PO (08:01)
--- NOTE | 2023-05-24 09:45 | ADMGEN ---
This patient, Gilma Mills, was admitted to 2 Medical Room 251-. Patient/family oriented to hospital policies and general routines including ID bracelet, bed and alarms, visiting hours, pain management, procedures, bathroom and other care routines, personal items, smoking policy, room service/diet, and visiting hours. Information on how to activate the Rapid Response Team has been discussed. Patient/Family are encouraged to report perceived risks to care and to ask questions if they do not understand what they are told or what they should do.
--- NOTE | 2023-05-24 12:17 | PM.SD2 ---
Same Day Admit/Disch: HPI History of Present Illness Chief complaint: tremora Narrative: 05/24: Patient was just discharged last night at 5:00 p.m. for a similar presentation with a thorough workup. Please see HPI below. Neurology had recommended tranxene but I was unable to prescribe due to it being a controlled substance and my authorization is not final. Dr. Cleary was going to prescribe the medication on Thursday. Patient had recurrent tremors last night that were too intense for her to manage at home. She has been given a prescription for her tranxene to be filled at preferred pharmacy. This is a 73-year-old female with a past medical history of depression, diastolic heart dysfunction, hypertension, hypothyroidism, migraines, obesity, restless legs syndrome, CVA, and pulmonary nodules.? She presented to [place] ER on the evening of 05/20 after her found her slumped in her recliner and having tremulous shaking.? She says that her woke her up and asked her to stop shaking but she was unable to so he called EMS.? Per the ER HPI when EMS arrived and her heart rate was in the 200's which resolved after a 500 cc fluid bolus. Currently her heart rate has ranged from 100's-110's on telemetry. She denies any recent illness and denies any prior tremulous episodes such as this.? She does say that in January of this year she had a UTI and sepsis for which she was admitted at [facility] and then discharged home with home health.? She re-presented in February of 2023 with nausea, vomiting, and chest pain. A cardiac workup was completed and she was found to have SVT for which she was started on metoprolol by cardiology.? Prior to this episode she was feeling well and in good health.? She says that yesterday during the day she was out shopping with 1 of her friends and had no complaints.? During my assessment she is found resting in bed and appears uncomfortable.? She is having intermittent bilateral upper extremity tremors. Nothing seems to make the tremors worse and nothing makes them better.? She says this is been going on since last night. They appear to be intention tremors as when she is talking or distracted the tremors subside. She denies numbness or tingling in her arms, denies dysarthria, dysphonia, and vision changes.? She does say that she has a headache currently.? It is located to the back of her head and is dully, achy.? She says she has a history of migraines and had been on prophylaxis with propranolol up until February of this year when Cardiology stopped this and switched her to metoprolol for SVT.? She does not feel that this headache is similar to her previous migraines.? She denies chest pain but does say that she has shortness of breath with dyspnea which is chronic.? She also has a chronic cough since having COVID last year.? She denies nausea, vomiting, ,diarrhea or constipation.? She also states that she has neuropathy to her bilateral lower extremities and fibromyalgia, as well as chronic back pain.? She had a spinal fusion last year in November for L4 through S1.? Her neuropathy to her bilateral lower extremities had improved after her spinal fusion however, she had fallen in January when she had her UTI and since then she has had increased pain to her bilateral lower extremities.? It appears that in February on imaging there was a new inferior endplate fracture at T12 since her previous studies in January.? She was not made aware of this during her hospitalization so she contacted her orthopedic doctor who completed her spinal fusion and they completed an MRI of her spine and will be following up with her in June to discuss the imaging. In the interim she was ordered to TSLO brace but she refuses to wear it as she says it makes the pain worse.? She is also supposed to have a nerve conduction study for her bilateral lower extremities but he was unable to be completed because of too much swelling in her legs per her reports.? She follows with a neurologist whom she has
--- NOTE | 2023-05-24 14:32 | PM.IMHP ---
H&P: HPI History of Present Illness Date/Time: 05/24/23 14:32 Chief Complaint: tremors Narrative: Chief complaint: tremora Narrative: 05/24: Patient was just discharged last night at 5:00 p.m. for a similar presentation with a thorough workup.? Please see HPI below.? Neurology had recommended tranxene? but I was unable to prescribe due to it being a controlled substance without hospital privileges. Dr. Cleary was going to prescribe the medication on Thursday. Patient had recurrent tremors last night that were too intense for her to manage at home. Her says that her blood pressure was 200's/100's with a heart rate in the 170's per their home monitoring. VSS upon arrival to the ED. Labs essentially normal. She was given Tranxene in the ED and she said it made her sleep. I had initially planned to discharge her home today with a printed script for Tranxene and the patient was agreeable. She then had her come to pick her up and decided that she did not feel safe discharging. She asked what do I do when I wake my up at night from tremoring and the new medication doesn't work . I explained that I am not sure that I have anything else to offer for the tremors. Neurology work up was negative. Cardiology made adjustments to her beta martinez. And I have recently decreased her thyroid medication. Most days during her hospitalization she was without tremors and there were no pharmacological agents added that would have improved her symptoms. She did receive Ativan overnight once for a tremulous episode and it made her sleep. She can be admitted for 23 hour observation. The ED has already consulted neurology and any other recommendations are greatly appreciated. HPI from recent admission 05/21-05/23: This is a 73-year-old female with a past medical history of depression, diastolic heart dysfunction, hypertension, hypothyroidism, migraines, obesity, restless legs syndrome, CVA, and pulmonary nodules.? She presented to [place] ER on the evening of 05/20 after her found her slumped in her recliner and having tremulous shaking.? She says that her woke her up and asked her to stop shaking but she was unable to so he called EMS.? Per the ER HPI when EMS arrived and her heart rate was in the 200's which resolved after a 500 cc fluid bolus. Currently her heart rate has ranged from 100's-110's on telemetry. She denies any recent illness and denies any prior tremulous episodes such as this.? She does say that in January of this year she had a UTI and sepsis for which she was admitted at [facility] and then discharged home with home health.? She re-presented in February of 2023 with nausea, vomiting, and chest pain. A cardiac workup was completed and she was found to have SVT for which she was started on metoprolol by cardiology.? Prior to this episode she was feeling well and in good health.? She says that yesterday during the day she was out shopping with 1 of her friends and had no complaints.? During my assessment she is found resting in bed and appears uncomfortable.? She is having intermittent bilateral upper extremity tremors. Nothing seems to make the tremors worse and nothing makes them better.? She says this is been going on since last night. They appear to be intention tremors as when she is talking or distracted the tremors subside. She denies numbness or tingling in her arms, denies dysarthria, dysphonia, and vision changes.? She does say that she has a headache currently.? It is located to the back of her head and is dully, achy.? She says she has a history of migraines and had been on prophylaxis with propranolol up until February of this year when Cardiology stopped this and switched her to metoprolol for SVT.? She does not feel that this headache is similar to her previous migraines.? She denies chest pain but does say that she has shortness of breath with dyspnea which is chronic.? She also has a chronic cough since having COVID last year.? She
[2023-05-24] MEDS: CLORAZEPATE DIPOTASSIUM (*CRX) 7.5 MG TABLET PO ×2 (14:52→22:23)
[2023-05-24 15:50] LABS: Alanine Aminotransferase 26 U/L (6-35); Albumin Level 3.8 g/dL (3.5-5.1); Alkaline Phosphatase 81 U/L (38-126); Anion Gap 8 mmol/L (8-16); Aspartate Amino Transferase 36 U/L (14-36); Bilirubin,Total 0.5 mg/dL (0.2-1.3); Blood Urea Nitrogen 15 mg/dL (7-17); Calcium 9.1 mg/dL (8.4-10.2); Carbon Dioxide 32 mmol/L (22-30); Chloride 96 mmol/L (98-107); Estimated CRCL calculation 74 ml/min; Estimated Glomerular Filt Rate > 60; Glucose 161 mg/dL (65-110); Magnesium 1.9 mg/dL (1.6-2.3); Potassium 3.3 mmol/L (3.4-5.0); Sodium 136 mmol/L (137-145)
[2023-05-24] MEDS: PREGABALIN (*CRX) 75 MG CAPSULE 150 MG PO (16:55)
[2023-05-24] MEDS: NORTRIPTYLINE HCL 25 MG CAPSULE PO (20:07)
[2023-05-24] MEDS: traMADol HCL (*CRX) 50 MG TABLET PO (20:07)
[2023-05-24] MEDS: METOPROLOL TARTRATE 25 MG TABLET 75 MG PO (20:08)
[2023-05-24] MEDS: EZETIMIBE 10 MG TABLET PO (20:12)
[2023-05-24] MEDS: rOPINIRole HCL 1 MG TABLET 4 MG PO (20:12)
[2023-05-24] MEDS: busPIRone HCL 5 MG TABLET 15 MG PO (22:22)
[2023-05-24] MEDS: ACETAMINOPHEN 325 MG TABLET 650 MG PO (22:22)
[2023-05-25] VITALS: PULSE 89
[2023-05-25 00:08] LABS: Glucose Point of Care 124 mg/dl (65-105)
[2023-05-25 04:00] VITALS: PULSE 79
[2023-05-25] MEDS: LEVOTHYROXINE SODIUM 100 MCG TABLET PO (05:29)
[2023-05-25 05:30] VITALS: BP 110/75; PULSE 84; RESP 18; TEMP 36.6; O2SAT 98
[2023-05-25 05:31] LABS: Glucose Point of Care 116 mg/dl (65-105)
[2023-05-25 06:02] LABS: Basophils Percent Auto 0.8 % (0.2-1.2); Eosinophils Absolute Auto 0.3 K/mm3 (0-0.3); Hematocrit 39.9 % (37.0-47.0); Hemoglobin 12.6 g/dL (12.0-15.0); Immature Granulocyte Absolute 0.01 K/mm3 (0.00-0.031); Immature Granulocyte Percent A 0.2 % (0-0.5); Lymphocytes Absolute Auto 1.09 K/mm3 (0.9-3.2); Lymphocytes Percent Auto 23.1 % (18.3-44.2); Mean Corpuscular HGB Conc 31.6 g/dl (32-36); Mean Corpuscular Hemoglobin 28.5 pg (26-34); Mean Corpuscular Volume 90.3 fl (80-100); Monocytes Absolute Auto 0.4 K/mm3 (0.1-0.6); Monocytes Percent Auto 8.5 % (2.6-8.5); Neutrophils Absolute Auto 2.9 K/mm3 (1.3-6.7); Neutrophils Percent Auto 60.4 % (45.5-73.1); Platelet Count Result 209 k/mm3 (150-375); Red Blood Count 4.42 M/mm3 (4.2-5.4); Red Cell Distribution Width 13.7 % (11.5-14.5); White Blood Count 4.7 K/mm3 (4.5-10.0)
[2023-05-25 06:12] LABS: Alanine Aminotransferase 25 U/L (6-35); Albumin Level 3.5 g/dL (3.5-5.1); Alkaline Phosphatase 75 U/L (38-126); Anion Gap 7 mmol/L (8-16); Aspartate Amino Transferase 35 U/L (14-36); Bilirubin,Total 0.6 mg/dL (0.2-1.3); Blood Urea Nitrogen 13 mg/dL (7-17); Calcium 8.9 mg/dL (8.4-10.2); Carbon Dioxide 30 mmol/L (22-30); Chloride 98 mmol/L (98-107); Estimated CRCL calculation 82 ml/min; Estimated Glomerular Filt Rate > 60; Glucose 106 mg/dL (65-110); Magnesium 2.1 mg/dL (1.6-2.3); Potassium 3.6 mmol/L (3.4-5.0); Sodium 135 mmol/L (137-145)
[2023-05-25 08:00] VITALS: PULSE 81
[2023-05-25 08:08] VITALS: PULSE 81
[2023-05-25] MEDS: METOPROLOL TARTRATE 25 MG TABLET 75 MG PO (08:08)
[2023-05-25] MEDS: POTASSIUM CHLORIDE 20 MEQ ER TABLET PO (08:08)
[2023-05-25] MEDS: CLOPIDOGREL BISULFATE 75 MG TABLET PO (08:08)
[2023-05-25] MEDS: FUROSEMIDE 40 MG TABLET PO (08:09)
[2023-05-25] MEDS: OMEGA 3 POLYUNSAT FATTY ACIDS 1 GM CAP PO (08:09)
[2023-05-25] MEDS: SPIRONOLACTONE 25 MG TABLET PO (08:09)
[2023-05-25] MEDS: PANTOPRAZOLE 40 MG TABLET PO (08:10)
[2023-05-25] MEDS: PREGABALIN (*CRX) 75 MG CAPSULE 150 MG PO ×2 (08:10→12:41)
[2023-05-25] MEDS: ENOXAPARIN 40 MG/0.4 ML SYRINGE SUB-Q (08:10)
[2023-05-25] MEDS: traMADol HCL (*CRX) 50 MG TABLET PO (08:10)
[2023-05-25 08:52] VITALS: PULSE 84; O2SAT 96
--- NOTE | 2023-05-25 09:01 | WPDNEURCNPN ---
Assessment and Plan Assessment and plan (1) Tremor: Code(s): R25.1 - Tremor, unspecified Status: Acute (2) Hyperthyroidism: Code(s): E05.90 - Thyrotoxicosis, unspecified without thyrotoxic crisis or storm Status: Acute (3) Right leg weakness: Code(s): R29.898 - Other symptoms and signs involving the musculoskeletal system Status: Acute (4) History of CVA (cerebrovascular accident): Code(s): Z86.73 - Personal history of transient ischemic attack (TIA), and cerebral infarction without residual deficits Status: Acute Plan Gilma Mills is a 73 year old female with a history of depression, diastolic heart dysfunction, hypertension, hypothyroidism, migraines, RLS, prior stroke presenting for evaluation of tremulousness. Likely related to hyperthyroid state. She did not have any tremor on exam for me. Her exam is not suggestive of essential tremor of Parkinson's disease. These episodes do not sound like seizures. Routine EEG was normal. MRI was normal as well. Etiology is unclear, but seems that they do respond to anxiolytics. - Klonopin 1mg BID PRN tremulousness - Patient would like to follow-up with Neurology at [facility] rather than her prior provider Consult date: 05/25/23 HPI: Gilma Mills is a 73 year old female with a history of depression, diastolic heart dysfunction, hypertension, hypothyroidism, migraines, RLS, prior stroke presenting for evaluation of tremulousness. Patient fell asleep on a recliner on the day of presentation. She woke up to her tell her to stop shaking. Patient does not remember what the movements were but she described them as erratic shaking of the just the arms. Patient's called EMS. /in the ER her HR was in the 200s. She was given IV fluids which brought her HR down to 100s. Since admission, she continues to have intermittent bilateral upper extremity tremulousness. She had an EEG done that was normal. Patient reports that she has full awareness during the episodes of tremulousness. They can last a few seconds to several minutes. Patient also mentioned that she has had a few episodes where she has randomly dropped things from her hands. She denies any prior history of seizures. During the admission she had a routine EEG that was normal and MRI brain that was normal as well. Her Synthroid was adjusted during the hospitalization. She did not require any treatment for tremulousness during the hospitalization. Dr. Cleary had recommended Tranxene for the tremulous episodes. She was discharged yesterday. However, she was re-admitted shortly afterwards due to a recurrent episode of tremulousness. Patient had recurrent tremors last night that were too intense for her to manage at home. She woke up for some reason and then noticed that her arms were shaking (she described them as boxing like movements). She was fully alert and aware during the movements. Her says that her blood pressure was 200's/100's with a heart rate in the 170's per their home monitoring. EMS was called. Patient mentioned that by the time EMS arrived she was still having the movements. She did not receive any medications in en route. In the ED her vitals were stable. She was given Tranxene in the ED. She did not feel comfortable going home so she was admitted for observation. She received a dose of Ativan overnight for a tremulous episode. Review of Systems Review of Systems: All systems reviewed & are unremarkable except as noted in HPI and below PMFSH Past Medical History Medical History Cerebrovascular accident Degenerative joint disease Depression Diastolic dysfunction On echocardiogram in April 2021. Functional bowel disorder Hypertension Hypothyroidism Migraine Mitral valve prolapse Morbid obesity Primary stress urinary incontinence Restless leg syndrome Surgical History Surgical History (Reviewed 05/22/23 @ 16:57 by Rula
--- NOTE | 2023-05-25 11:15 | PM.DS ---
DS: Admitting Diagnosis Discharge Date 05/25/23 Admitting Diagnosis tremors DS: Discharge Diagnosis Discharge Diagnosis (1) Coarse tremors: Code(s): G25.2 - Other specified forms of tremor Status: Acute Assessment and Plan: Recent admission for tremor work up 05/21-05/23 Neurology consulted during that admission and again for this presentation. Recommendations are appreciated. EEG negative, MRI brain negative Neuro recommended Tranxene BID PRN for tremors; ordered now. Suspected that the tremulousness and tachycardia are related to hyperthyroid state. TSH was < 0.015, T3 and T4 normal. Her thyroid medicine was decreased. (2) Hyperthyroidism: Code(s): E05.90 - Thyrotoxicosis, unspecified without thyrotoxic crisis or storm Status: Acute Assessment and Plan: TSH was < 0.015, T3 and T4 normal on labs from 05/21/2023 Synthroid was 125 mcg PO daily. Decreased dose to 100 mcg PO daily. (3) Tachycardia: Code(s): R00.0 - Tachycardia, unspecified Status: Acute Assessment and Plan: ST 100-118 EKG from 05/[address] with first degree AV block. Repeat EKG ordered Tele ordered On Metoprolol. Dose was just increased by cardiology from 25 mg PO BID to 75 mg PO BID. DS: Summary Hospital Course Hospital Course: Admitted after recently being dc for tremors, neurology evaluated the patient and made some changes to medication. She is stable and doesn;'t have tremor today. She can fu with neuro. Klonipin bid as needed. Time Spent with Patient Time attestation: Total time spent providing and/or coordinating discharge services: Exam Narrative: General: well appearing, obese, well nourished, appears stated age. HEENT: normocephalic, atraumatic. Mucous membranes moist. EOMI, PERRLA, bilateral sclera anicteric, no conjunctival injection. Neck supple without JVD, lymphadenopathy, or bruit. Respiratory: clear to auscultation bilaterally. No rales/rhonic/wheezes. Cardiovascular: Regular rate and rhythm, normal S1-S2 upon auscultation. No murmurs, rubs, or clicks. PMI is nondisplaced, capillary re-fill less than 3 second. Abdomen: Soft, round, obese, no pulsatile masses, non-distended and non-tender. No rebound, no guarding. No CVA tenderness, no hepatosplenomegaly.? Bowel sounds present to all four quadrants. No high pitch or tinkling sounds, resonant to percussion. Extremities: No cyanosis or clubbing, Trace, non-pitting edema present to bilateral knees, chronic venous insufficiency,? Pulses are palpable 2/2.? Active ROM to all four extremities. Neuro: Alert and orientated x 4. PERRLA. Cranial nerves 2-12 intact without focal deficit Skin: Warm, dry, and intact, without rash, or lesion. Slight erythema to BLE without concerns for cellulitis. Lines: PIV Incisions: N/A Psych: pleasant, cooperative, normal speech, normal affect, no hallucinations, no dysarthria DS: Data Data Completed and Pending Labs on day of discharge: Labs from last 24 hours 05/25/23 05/25/23 05/25/23 05:38 05:27 00:06 WBC 4.7 RBC 4.42 Hgb 12.6 Hct 39.9 MCV 90.3 MCH 28.5 MCHC 31.6 L RDW 13.7 Plt Count 209 MPV 9.0 Immature Gran % (Auto) 0.2 Neut % (Auto) 60.4 Lymph % (Auto) 23.1 [place] % (Auto) 8.5 Eos % (Auto) 7.0 H Baso % (Auto) 0.8 Lymph # (Auto) 1.09 [place] # (Auto) 0.4 Eos # (Auto) 0.3 Baso # (Auto) 0.0 Abs Immat Gran (auto) 0.01 Absolute Neuts (auto) 2.9 Absolute Nucleated RBC 0.0 Nucleated RBC % 0.0 Sodium 135 L Potassium 3.6 Chloride 98 Carbon Dioxide 30 Anion Gap 7 L BUN 13 Creatinine 0.80 Estim Creat Clear Calc 82 Estimated GFR > 60 Glucose 106 POC Capillary Glucose 116 H 124 H Calcium 8.9 Phosphorus Magnesium 2.1 Total Bilirubin 0.6 AST 35 ALT 25 Alkaline Phosphatase 75 Total Protein 6.0 L Albumin 3.5 05/24/23 15:29 WBC RBC Hgb Hct MCV M
--- NOTE | 2023-05-25 21:57 | PC.NURSE ---
Patient's daughter called to request direction related to continued tremors after patient was discharged. Patient chart reviewed and questions related to discharge answered. Patient's daughter stated that patient is warm and flushed and that her heart rate was 184 and her blood pressure is 212/120 . RN advised that patient return to the emergency department for further evaluation. Emergency Room engine inspector notified of intent to return and of reported VS.
== END 2023-05-25 14:00 | disposition home or self-care (01) ==
LOC: ANHED 08:19 → ANH2MED 10:18
PROVIDERS: Emergency Medicine; Nurse Practitioner Acute Care; Admitting Provider Student in an Organized Health Care Education/Training Program; Emergency Provider Emergency Medicine; PCP Internal Medicine; Visit Provider Chiropractor
DX: G25.2 Other specified forms of tremor (principal); E05.90 Thyrotoxicosis, unspecified without thyrotoxic crisis or storm; R29.898 Other symptoms and signs involving the musculoskeletal system; F41.9 Anxiety disorder, unspecified; F32.A Depression, unspecified; M47.812 Spondylosis without myelopathy or radiculopathy, cervical region; E03.9 Hypothyroidism, unspecified; R00.0 Tachycardia, unspecified; I11.9 Hypertensive heart disease without heart failure; G43.909 Migraine, unspecified, not intractable, without status migrainosus; E66.01 Morbid (severe) obesity due to excess calories; Z68.41 Body mass index [BMI] 40.0-44.9, adult; Z86.73 Personal history of transient ischemic attack (TIA), and cerebral infarction without residual deficits; Z79.02 Long term (current) use of antithrombotics/antiplatelets; Z79.891 Long term (current) use of opiate analgesic; Z79.899 Other long term (current) drug therapy
CPT/HCPCS: 36415; 72141; 80053; 82550; 82948; 83735; 84100; 85025; 96374; 99284; 99285; A9270; G0378; J1650; J2060

== ENCOUNTER 2023-05-25 23:25 | Emergency (ER) | payer MEDICARE, SELFPAY ==
[2023-05-25 23:29] VITALS: BP 136/68; PULSE 108; RESP 15; TEMP 36.8; O2SAT 94
[2023-05-25] MEDS: LORazepam INJ (*CRX) 2 MG/ML VIAL 1 MG IV PUSH (23:57)
[2023-05-26 00:05] LABS: Basophils Percent Auto 0.6 % (0.2-1.2); Eosinophils Absolute Auto 0.3 K/mm3 (0-0.3); Eosinophils Percent Auto 4.8 % (0-4.4); Hematocrit 41.3 % (37.0-47.0); Hemoglobin 13.2 g/dL (12.0-15.0); Immature Granulocyte Absolute 0.02 K/mm3 (0.00-0.031); Immature Granulocyte Percent A 0.3 % (0-0.5); Lymphocytes Absolute Auto 1.12 K/mm3 (0.9-3.2); Lymphocytes Percent Auto 16.7 % (18.3-44.2); Mean Corpuscular Hemoglobin 28.8 pg (26-34); Mean Corpuscular Volume 90.2 fl (80-100); Mean Platelet Volume 9.3 fl (7.4-10.4); Monocytes Absolute Auto 0.7 K/mm3 (0.1-0.6); Monocytes Percent Auto 9.7 % (2.6-8.5); Neutrophils Absolute Auto 4.6 K/mm3 (1.3-6.7); Neutrophils Percent Auto 67.9 % (45.5-73.1); Platelet Count Result 239 k/mm3 (150-375); Red Blood Count 4.58 M/mm3 (4.2-5.4); Red Cell Distribution Width 13.9 % (11.5-14.5); White Blood Count 6.7 K/mm3 (4.5-10.0)
[2023-05-26 00:20] LABS: Alanine Aminotransferase 29 U/L (6-35); Alkaline Phosphatase 80 U/L (38-126); Anion Gap 8 mmol/L (8-16); Aspartate Amino Transferase 46 U/L (14-36); Bilirubin,Total 0.5 mg/dL (0.2-1.3); Blood Urea Nitrogen 14 mg/dL (7-17); Calcium 9.3 mg/dL (8.4-10.2); Carbon Dioxide 32 mmol/L (22-30); Chloride 97 mmol/L (98-107); Creatine Kinase 87 U/L (30-135); Estimated CRCL calculation 66 ml/min; Estimated Glomerular Filt Rate 55; Glucose 108 mg/dL (65-110); Potassium 3.9 mmol/L (3.4-5.0); Sodium 137 mmol/L (137-145)
[2023-05-26 01:04] VITALS: BP 138/71; PULSE 105; RESP 16; O2SAT 98
[2023-05-26 01:19] VITALS: O2SAT 98
--- NOTE | 2023-05-26 02:30 | ED.GENADULT ---
HPI - General Adult General Chief complaint: Recheck/Abnormal Lab/Rx Stated complaint: TREMMORS, HTN, TACHYCARDIA Time Seen by Provider: 05/25/23 23:41 History of Present Illness HPI narrative: Patient presents to the emergency department from home via EMS. Patient has been seen in the emergency part multiple times this week for similar symptoms. She is been admitted twice. She has a tremor that comes on acutely. Denies history of Parkinson's. She has been seen by neurology her symptoms resolved while she was in the hospital. When she gets home they will come on unexpected. She denies all other review of systems. Related Data Home Medications Medication Instructions Recorded Confirmed ezetimibe 10 mg tablet 10 mg PO HS 03/22/20 05/24/23 furosemide 40 mg tablet 40 mg PO DAILY 03/22/20 05/24/23 nortriptyline 25 mg capsule 25 mg PO HS 03/22/20 05/24/23 ropinirole 2 mg tablet 4 mg PO HS 03/22/20 05/24/23 spironolactone 100 mg tablet 25 mg PO DAILY 03/22/20 05/24/23 clopidogrel 75 mg tablet (Plavix) 75 mg PO DAILY 01/29/23 05/24/23 pregabalin 150 mg capsule 150 mg PO TID 01/29/23 05/24/23 buspirone 15 mg tablet 15 mg PO BID PRN Anxiety 03/05/23 05/24/23 pantoprazole 40 mg tablet,delayed 40 mg PO DAILY 03/05/23 05/24/23 release potassium chloride 20 mEq 20 meq PO DAILY 03/05/23 05/24/23 tablet,extended release(part/cryst) tramadol 50 mg tablet 50 mg PO BID PRN Pain 03/05/23 05/24/23 Allergies Allergy/AdvReac Type Severity Reaction Status Date / Time adhesive Allergy Intermediate RASH Verified 05/24/23 03:51 alendronate sodium Allergy Mild STOMACH Verified 05/24/23 03:51 PAIN atorvastatin Allergy Unknown Unknown Verified 05/24/23 03:51 tizanidine Allergy Unknown Unknown Verified 05/24/23 03:51 cefdinir [From Omnicef] AdvReac Unknown Rash Verified 05/24/23 03:51 Review of Systems Review of Systems: CONSTITUTIONAL: Denies fever, chills, or sweats. EYES: Denies visual changes, redness, or discharge. ENT: Denies rhinorrhea, congestion, sore throat, or otalgia. CARDIOVASCULAR: Denies chest pain, palpitations, or edema. RESPIRATORY: Denies cough or dyspnea. GASTROINTESTINAL: Denies abdominal pain, nausea, vomiting, or diarrhea. GENITOURINARY: Denies dysuria or hematuria. SKIN: Denies rash or itching. MUSCULOSKELETAL: Denies back pain, joint pain, or myalgia. NEUROLOGIC: Denies headache, numbness, or weakness. PSYCHIATRIC: Denies anxiety or depression. [facility] Past Medical History Medical History Cerebrovascular accident Degenerative joint disease Depression Diastolic dysfunction On echocardiogram in April 2021. Functional bowel disorder Hypertension Hypothyroidism Migraine Mitral valve prolapse Morbid obesity Primary stress urinary incontinence Restless leg syndrome Surgical History Surgical History H/O spinal fusion History of bilateral knee arthroplasty (2007) History of hysterectomy (1996) History of shoulder surgery S/P foot surgery, right Family History Family History (Updated 05/24/23 @ 10:15 by Monica Can RN) Mother Breast cancer Father Chronic obstructive pulmonary disease Sibling Breast cancer Multiple sclerosis Dementia Sibling Lung cancer Social History Social History Social History: Surrogate medical decision maker: Hayden Mills, spouse. Code status: Full code. Smoking status: Never smoker Second hand tobacco smoke exposure: No Alcohol intake: former Drinks per week: 0 Substance use: never Substance use type: prescription drug Lack of Transportation: No Lack of Food: Sometimes True Current Housing: I Have Housing Concerned About Future Housing: No Difficulty Paying Gas/Electric Bills: No Difficulty Paying for Meds: No Currently Unemployed: No Education: High School Diploma/GED D
--- NOTE | 2023-05-26 03:45 | PC.NURSE ---
This RN got the pt up to walk per Dr. Marguerite leonard, pt was able to ambulate with a walker with a steady gait. No tremors or abnormal movements were noted. Care ongoing.
[2023-05-26 04:44] VITALS: BP 131/75; PULSE 106; RESP 17; O2SAT 95
== END 2023-05-26 04:47 | disposition home or self-care (01) ==
PROVIDERS: Emergency Provider Emergency Medicine; PCP Internal Medicine
DX: R25.1 Tremor, unspecified (principal); I11.9 Hypertensive heart disease without heart failure; E03.9 Hypothyroidism, unspecified; I34.1 Nonrheumatic mitral (valve) prolapse; F32.A Depression, unspecified; N39.3 Stress incontinence (female) (male); G25.81 Restless legs syndrome; E66.01 Morbid (severe) obesity due to excess calories; Z68.41 Body mass index [BMI] 40.0-44.9, adult; Z98.1 Arthrodesis status; Z86.73 Personal history of transient ischemic attack (TIA), and cerebral infarction without residual deficits; Z79.02 Long term (current) use of antithrombotics/antiplatelets
CPT/HCPCS: 36415; 80053; 82550; 85025; 96374; 99284; J2060

== ENCOUNTER 2023-08-12 09:06 | Outpatient (CLI) | payer MEDICARE, SELFPAY | END 2023-08-12 09:07 | disposition home or self-care (01) | LOC: CHSIMG 09:07 | PROVIDERS: PCP Internal Medicine; Visit Provider Internal Medicine | DX: Z12.31 Encounter for screening mammogram for malignant neoplasm of breast (principal) | CPT/HCPCS: 99199 ==

== ENCOUNTER 2023-08-17 14:34 | Outpatient (CLI) | payer MEDICARE, SELFPAY ==
--- NOTE | ~2023-08-17 | MM_ITS ---
EXAMINATION: MM screening [facility] BI w linnette HISTORY: Screening mammogram, family history of breast cancer in her mother and sister. TECHNIQUE: Craniocaudal and mediolateral oblique 3-D tomosynthesis images were obtained and synthetic 2-D images were generated. CAD analysis was submitted and interpreted. COMPARISON: 08/11/2022, 08/05/2021, 08/02/2020 BREAST PARENCHYMAL COMPOSITION: There are scattered areas of fibroglandular density. FINDINGS: No suspicious mass, calcification, or architectural distortion are identified in either sterling ast to suggest malignancy. There has been no suspicious interval change. IMPRESSION: 1. No mammographic evidence of malignancy. 2. Recommend routine screening mammography in one year. BI-RADS Category 1: Negative Reviewed, dictated and finalized at location A. 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
== END 2023-08-17 14:35 | disposition home or self-care (01) ==
PROVIDERS: PCP Internal Medicine; Visit Provider Internal Medicine
DX: Z12.31 Encounter for screening mammogram for malignant neoplasm of breast (principal)
CPT/HCPCS: 77063; 77067

== ENCOUNTER 2024-03-10 08:24 | Outpatient (CLI) | payer MEDICARE, SELFPAY ==
--- NOTE | 2024-03-10 11:15 | NEURO_ITS ---
Clinical note: The patient is 74 years old with history of lower back pain and paresthesias in both feet and legs. She has had a surgeon the lumbar spine in November 2021. There is also history of surgery on both knees and hips for replacement. She has had a fall on November 28, 2022 on a concrete garage floor. Patient history of prediabetic status. This study is being performed for evaluation of peripheral neurological system. The findings are given below. Summary of findings: 1. Left and right sural sensory responses were absent. 2. Left and right peroneal motor distal latency was significantly prolonged and left and normal on the right side however amplitudes were markedly decreased and conduction velocities were mildly decreased. 3. Left and right tibial motor distal latencies were essentially normal however amplitudes was significant decreased and conduction velocity mildly decreased on the left side. 4. Bilateral H-reflex latencies were significantly prolonged left more than right side and amplitude marked decreased. 5. EMG examination was performed using a monopolar needle electrode. various muscles were examined in both lower limbs. No denervation changes were seen however mild loss of recruitment was noted in the left tibialis anterior and medial gastrocnemius. Impression: Evidence of severe, diffuse, length-dependent, sensory motor polyneuropathy with axonal features. Etiologic correlation is recommended. At this time there is no supportive evidence for lumbosacral radiculopathy in L3-S1 distribution however paraspinal muscles were not examined since the patient has surgery in left spine area. If clinically indicated, radiographic correlation may be helpful. please feel free to call me if you have any questions with regard to study. Williams Lopez MD, FAAN, FAANEM Neurology / Electrodiagnostic Medicine Nerve Conduction Studies Anti Sensory Summary Table Stim Site NR Onset (ms) Peak (ms) P-T Amp (?V) Site1 Site2 Delta-0 (ms) Dist (mm) Parker (m/s) Left Sural Anti Sensory (Lat Mall) NO RESPONSE Calf NR Calf Lat Mall 120 Right Sural Anti Sensory (Lat Mall) NO RESPONSE Calf NR Calf Lat Mall 120 Motor Summary Table Stim Site NR Onset (ms) O-P Amp (mV) Site1 Site2 Delta-0 (ms) Dist (mm) Parker (m/s) Left Peroneal Motor (Ext Dig Brev) Ankle 9.1 0.1 Ankle Ankle 0.0 80 Popit 20.9 0.1 Popit Ankle 11.8 410 35 Right Peroneal Motor (Ext Dig Brev) Ankle 5.5 0.1 Ankle Ankle 0.0 70 Popit 16.5 0.1 Popit Ankle 11.0 370 34 Left Tibial Motor (Abd Aly Brev) Ankle 4.8 0.6 Ankle Ankle 0.0 80 Knee 16.1 0.2 Ankle Knee 11.3 430 38 Right Tibial Motor (Abd Aly Brev) Ankle 5.9 0.1 Ankle Ankle 0.0 100 Knee 14.3 0.0 Ankle Knee 8.4 420 50 H Reflex Studies NR H-Lat (ms) Max H-Amp (mV) L-R H-Lat (ms) L-R H-Lat Norm M-Lat (ms) M-Amp (mV) H-M Lat (ms) H/M Ratio Left Tibial (Mrkrs) (Gastroc) 46.09 0.18 6.56 <2.0 4.84 0.55 41.25 32.38 Right Tibial (Mrkrs) (Gastroc) 39.53 0.75 6.56 <2.0 7.34 2.03 32.19 37.03 EMG Side Muscle Nerve Ins Act Fibs Psw Amp Dur Recrt Comment Right BicepsFemS Sciatic Nml Nml Nml Nml Nml Nml Right AntTibialis Dp Br Fibular Nml Nml Nml Nml >12ms +2 Right VastusMed Femoral Nml Nml Nml Nml Nml Nml Right RectFemoris Femoral Nml Nml Nml Nml Nml Nml Right Gastroc Tibial Nml Nml Nml Nml Nml Nml Right Semimembranosus Sciatic Nml Nml Nml Nml Nml Nml Left BicepsFemS Sciatic Nml Nml Nml Nml Nml Nml Left AntTibialis Dp Br Fibular Nml Nml Nml Nml >12ms +1
== END 2024-03-10 08:25 | disposition home or self-care (01) ==
PROVIDERS: PCP Internal Medicine; Visit Provider Student in an Organized Health Care Education/Training Program
DX: G60.8 Other hereditary and idiopathic neuropathies (principal); G62.9 Polyneuropathy, unspecified
CPT/HCPCS: 95886; 95910

== ENCOUNTER 2024-04-28 15:06 | Outpatient (CLI) | payer MEDICARE, SELFPAY | END 2024-04-28 15:07 | disposition home or self-care (01) | LOC: CHSLAB 15:08 | PROVIDERS: PCP Internal Medicine; Visit Provider Nurse Practitioner Family | DX: L89.321 Pressure ulcer of left buttock, stage 1 (principal) | CPT/HCPCS: 87070; 87205 ==

== ENCOUNTER 2024-06-01 13:05 | Outpatient (CLI) | payer MEDICARE, SELFPAY ==
--- NOTE | 2024-06-01 14:25 | NEURO_ITS ---
Impression: # Complains of numbness of hands. # Bilateral Carpal Tunnel Syndrome, right more than left. # Bilateral ulnar neuropathy across the elbows. # Needle/EMG exam abnormal. Nerve Conduction Studies Anti Sensory Summary Table Stim Site NR Peak (ms) P-T Amp (?V) Site1 Site2 Delta-P (ms) Dist (cm) Parker (m/s) Left Median Anti Sensory (2-3nd Digit) Wrist 3.9 26.6 Wrist 2-3nd Digit 3.9 14.0 36 Wrist 5.0 8.6 Wrist 2-3nd Digit 3.9 14.0 36 Right Median Anti Sensory (2-3nd Digit) Wrist 6.8 15.3 Wrist 2-3nd Digit 6.8 14.0 21 Wrist 6.7 11.4 Wrist 2-3nd Digit 6.8 14.0 21 Left Radial Anti Sensory (Base 1st Digit) Wrist 2.8 10.1 Wrist Base 1st Digit 2.8 0.0 Right Radial Anti Sensory (Base 1st Digit) Wrist 2.9 10.8 Wrist Base 1st Digit 2.9 0.0 Left Ulnar Anti Sensory (5th Digit) Wrist 3.2 21.7 Wrist 5th Digit 3.2 14.0 44 Right Ulnar Anti Sensory (5th Digit) Wrist 2.7 18.7 Wrist 5th Digit 2.7 14.0 52 Motor Summary Table Stim Site NR Onset (ms) O-P Amp (mV) Site1 Site2 Delta-0 (ms) Dist (cm) Parker (m/s) Left Median Motor (Abd Poll Brev) Wrist 4.6 2.2 Elbow Wrist 6.3 32.0 51 Elbow 10.9 1.6 Right Median Motor (Abd Poll Brev) Wrist 4.9 1.8 Elbow Wrist 6.9 35.0 51 Elbow 11.8 1.7 Left Ulnar Motor (Abd Dig Minimi) Wrist 2.7 6.2 A Elbow Wrist 7.4 35.0 47 A Elbow 10.1 4.4 B Elbow Wrist 5.3 26.0 49 B Elbow 8.0 4.0 Right Ulnar Motor (Abd Dig Minimi) Wrist 3.1 4.4 A Elbow Wrist 8.6 41.0 48 A Elbow 11.7 2.1 B Elbow Wrist 6.0 32.0 53 B Elbow 9.1 2.7 F Wave Studies NR F-Lat (ms) L-R F-Lat (ms) Left Median (Mrkrs) (Abd Poll Brev) 31.87 1.58 Right Median (Mrkrs) (Abd Poll Brev) 30.29 1.58 Left Ulnar (Mrkrs) (Abd Dig Min) 28.27 0.68 Right Ulnar (Mrkrs) (Abd Dig Min) 28.95 0.68 EMG Side Muscle Nerve Root Ins Act Fibs Amp Dur Recrt Comment Right 1stDorInt Ulnar C8-T1 Nml Nml Nml >12ms +1 Right Ext Indicis Radial (Post Int) C7-8 Nml Nml Nml Nml Nml Right Ext Digitorum Radial (Post Int) C7-8 Nml Nml Nml Nml Nml Right BrachioRad Radial C5-6 Nml Nml Nml Nml Nml Right PronatorTeres Median C6-7 Nml Nml Nml Nml Nml Right Abd Poll Brev Median C8-T1 Nml Nml Nml >12ms +1 Right ABD Dig Min Ulnar C8-T1 Nml Nml Nml >12ms +1 Left 1stDorInt Ulnar C8-T1 Nml Nml Nml >12ms +1 Left Ext Indicis Radial (Post Int) C7-8 Nml Nml Nml Nml Nml Left Ext Digitorum Radial (Post Int) C7-8 Nml Nml Nml Nml Nml Left BrachioRad Radial C5-6 Nml Nml Nml Nml Nml Left PronatorTeres Median C6-7 Nml Nml Nml Nml Nml Left Abd Poll Brev Median C8-T1 Nml Nml Nml >12ms +1 Left ABD Dig Min Ulnar C8-T1 Nml Nml Nml >12ms +1 MTDD
== END 2024-06-01 13:06 | disposition home or self-care (01) ==
PROVIDERS: PCP Internal Medicine; Visit Provider Psychiatry & Neurology Neurology
DX: G56.03 Carpal tunnel syndrome, bilateral upper limbs (principal); G56.23 Lesion of ulnar nerve, bilateral upper limbs
CPT/HCPCS: 95886; 95911

== ENCOUNTER 2024-09-06 08:25 | Outpatient (CLI) | payer MEDICARE, SELFPAY ==
--- NOTE | ~2024-09-06 | MM_ITS ---
EXAMINATION: MM screening [facility] BI w linnette HISTORY: Screening TECHNIQUE: Craniocaudal and mediolateral oblique 3-D tomosynthesis images were obtained and synthetic 2-D images were generated. CAD analysis was submitted and interpreted. COMPARISON: 08/17/2023 and dating back to 08/05/2021 BREAST PARENCHYMAL COMPOSITION: There are scattered areas of fibroglandular density. FINDINGS: Punctate calcifications within the retroareolar position of the right breast, stable and be nign in appearance. Stable parenchymal pattern without suspicious microcalcifications, architectural distortion, discrete masses or significant asymmetry. IMPRESSION: 1. No mammographic evidence of malignancy. 2. Recommend routine screening mammography in one year. BI-RADS Category 2: Benign finding(s). Reviewed, dictated and finalized at location A. 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
--- OUTSIDE RECORDS SUMMARY | 2024-09-13 06:30 | XMS_ITS ---
Author Organization [facility] As Milk Mantra Address [address] [place] [address] Care Team Providers Care Automation Test Engineer Name Role Phone Fabby LICONA [facility] Primary Care Provider Da Camacho Unavailable [phone] Allergies Allergen (clinical drug ingredient) Drug/Non Drug Allergy documented on EMR Reaction Allergy Type Onset Date Status alendronate Alendronate Sodium Unknown Drug Allergy 2023 Active cefdinir Cefdinir Unknown Drug Allergy 12/22/2023 Active topiramate Topiramate Unknown Drug Allergy 12/22/2023 Acti ve Adhesive Unknown Allergy 12/22/2023 Active atorvastatin Atorvastatin Unknown Drug Allergy 12/22/2023 Active tizanidine Tizanidine Unknown Drug Allergy 12/22/2023 Acti ve REASON FOR VISIT follow up Medications Medication SIG (Take, Route, Frequency, Duration) Notes Start Date End Date Status Clopidogrel Bisulfate 75 MG Oral 12/22/2023 Unknown Furosemide 40 MG Oral 12/22/2023 Un known ProAir HFA 108 (90 Base) MCG/ACT Inhalation 12/22/2023 Unknown rOPINIRole HCl 2 MG Oral 12/22/2023 Unknown Pregabalin 150 MG Oral 12/22/2023 U nknown Breo Ellipta 200-25 MCG/INH Inhalation 12/22/2023 Unknown Pantoprazole Sodium 40 MG Oral 12/22/2023 Unknown Metoprolol Tartrate 100 MG Oral 12/22/2023 Unknown Rosuvastatin Calcium 20 MG Oral 12/22/2023 Unknown Spironolactone 25 MG Oral 12/22/2023 Unknown Potassium Chloride [place] ER 20 MEQ Oral 12/22/2023 Unknown clonazePAM 1 MG 1 tablet Oral twice a day for 30 days As needed please cancel remaining scripts 08/29/2024 Active Ezetimibe 10 MG Oral 12/22/2023 Shadi storeyn Venlafaxine HCl ER 150 MG 1 capsule every motning Oral Once a day for 90 days Active Levothyroxine Sodium 112 MCG Oral 12/22/2023 Unknown busPIRone HCl 30 MG 1 tablet Oral Twice a day for 90 days Active Social History Tobacco Use: Social History Observation Description Date Details (start date - stop date) Never Smoker NA - NA Sex Assigned At : Social History Observation Description Sex Assigned At Female Tobacco Control (Standard) Question Answer Notes Tobacco use: Nonsmoker Encounters Encounter Location Date Provider Diagnosis [facility] eleni [facility] [address] [facility] [address] [place] [address] 08/29/2024 Da Madera Major depressive disorder, recurrent, moderate F33.1 ; Generalized anxiety disorder F41.1 and Tremor, unspecified R25.1 Assessments Encounter Date Diagnosis (ICD Code) Assessment Notes Treatment Notes Treatment Clinical Notes Section Notes 08/29/2024 Major depressive disorder, recurrent, moderate (ICD-10 - F33.1) 08/29/2024 Generalized anxiety disorder (ICD-10 - F41.1) Increase buspar to 20mg BID for anxiety Patient educated on all medications including potential benefits, side effects, risks. Educated on proper dosing schedule and importance of compliance. [place] PDMP report checked and consistent with prescription history, no controlled substance prescriptions from other providers. Discussed and educated pt regarding benzodiazepines are generally not intended for prolonged use and that use can cause tolerance, dependence, depression, and associated memory issues including dementias (this list is not exhaustive). Benzodiazepine use is generally not recommended concurrently with pain medications and/or other controlled substances due to increased risks of profound sedation, respiratory depression, coma, and even . They are not to be used with any alcohol, as this combination can be lethal. 08/29/2024 Tremor, unspecified (ICD-10 - R25.1) Stable 08/29/2024 Other Increase Buspar to 30mg BID for anxiety Patient educated on all medications including potential benefits, side effects, risks. Educated on proper dosing schedule and importance of compliance. -Assessment and treatment plan reviewed with patient. -Compliance with treatment plan importance discussed. -Discussed the risks/benefits of this medication -Discussed medication side effects. -Contact office if symptoms worsen. -Discussed that it can take up to 6-8 weeks to see full therapeutic effects of psychotropic medications. -Crisis prevention hotline 548. Plan Of Treatment Medication Medication Name Sig Start Date Stop Date Notes clonazePAM 1 MG 1 tablet Oral twice a day for 30 days 08/29/2024 please cancel remaining scripts Venlafaxine HCl ER 150 MG 1 capsule every motning Oral Once a day for 90 days busPIRone HCl 30 MG 1 tablet Oral Twice a day for 90 days Treatment Notes Assessment Notes Generalized anxiety disorder Increase buspar to 20mg BID for anxiety Patient educated on all medications including potential benefits, side effects, risks. Educated on proper dosing schedule and importance of compliance. [place] PDMP report checked and consistent with prescription history, no controlled substance prescriptions from other providers. Discussed and educated pt regarding benzodiazepines are generally not intended for prolonged use and that use can cause tolerance, dependence, depression, and associated memory issues including dementias (this list is not exhaustive). Benzodiazepine use is generally not recommended concurrently with pain medications and/or other controlled substances due to increased risks of profound sedation, respiratory depression, coma, and even . They are not to be used with any alcohol, as this combination can be lethal. Tremor, unspecified Stable Other Increase Buspar to 30mg BID for anxiety Patient educated on all medications including potential benefits, side effects, risks. Educated on proper dosing schedule and importance of compliance. Next Appt Details Follow Up: 6 Weeks, Reason: medication follow up Provider Name:Da Madera, 10/10/2024 10:30:00 AM, [address] [address], [facility] [address], [place], [address], Progress Notes * KEEGAN ALVES KDOB:1950 (74 yo F)Acc No.[id number]:08/29/2024 Patient:?JOSELYN KEEGAN Henley Provider:?AD MADERA PMHNP :1950???Age:74 Y???Sex:Female D ate:08/29/2024 Address:[address] [place] [address], [facility] Pcp:Sebastien Sequeira MD Subjective: * Chief Complaints: * ???Follow up * HPI: ???History of Presenting Problem:?Anxiety?Rates anxiety 7/10 with 10 being most severe. Denies recent panic attacks.?.?Depression?Rates depression 8/10 with 10 being most severe. Denies SI.?.?Mood lability?no hx andrew?.?Psychosis?no hx psychosis .?Suicidal ideation?Denies.?Here for follow up. Mag increased last apt. Reports she has not noticed much of a difference. Continues to have stress over recent scam, reports significant financial stressors. Also reporting she has been out of the Lyrica for the past week, complains of a headache today. Denies suicidal ideation, although depression is worse given recent stressors. Identifies feeling hopeless and helpless. Denies recent panic attacks.? Sleep is fair, about 6 hours nightly. Energy is good.? Appetite is fair. ???Past Psychiatric Hospitalizations:? Social hx: . Has three children. Retired in 2015 from a [employer]. Medical hx: tremors, fibromyalgia, arthritis, HTN, high cholesterol, hypothyroid, tinnitus, migraines Previous Psychiatric History previous BH admissions/IOP/PHP: none history of SI/SA: denies family psychiatric history: sister-bipolar disorder previously trialled medications: venlafaxine, Klonopin history of neglect/abuse/trauma: denies substance use history:none Social hx: . Has three children. Retired in 2014 from a [employer]. Medical hx: tremors, fibromyalgia, arthritis, HTN, high cholesterol, hypothyroid, tinnitus, migraines Previous Psychiatric History previous BH admissions/IOP/PHP: none history of SI/SA: denies family psychiatric history: sister-bipolar disorder previously trialled medications: venlafaxine, Klonopin history of neglect/abuse/trauma: denies substance use history:none. ???Depression screening:?PHQ-9?Little interest or pleasure in doing things?Several days,?Feeling down, depressed, or hopeless?Several days,?Trouble falling or staying asleep, or sleeping too much?Nearly every day,?Feeling tired or having little energy Nearly every day,?Poor appetite or overeating?Several days,?Feeling bad about yourself or that you are a failure, or have let yourself or your family down?Several days,?Trouble concentrating on things, such as reading the newspaper or watching television?Not at all,?Moving or speaking so slowly that other people could have noticed; or the opposite, being so fidgety or restless that you have been moving around a lot more than usual?Not at all,?Thoughts that you would be better off or of hurting yourself in some way?Not at all.?Intervention?Depression Screening Findings?Positve,?Follow-Up for Depression?Mental health treatment assessment, Patient follow-up to return when and if necessary,?Additional Evaluation for Depression?Psychiatric interview and evaluation,?Name of the standardized tool used for adult depression screening:?Patient Health Questionnaire (PHQ-9).? * ROS:?General / Constitutional:?Patient denies?change in appetite, headache, lightheadedness, sleep disturbance, weight gain, weight loss.?Psychiatric:?Patient denies?depressed mood, suicidal thoughts, delusions, auditory / visual hallucinations, andrew, psychosis.?Patient complains of?anxiety.?Comments?See HPI for details.? * Medical History:? * Surgical History:?Hysterecto my 96 Right Rotator Cuff Repair 2000 Bilateral knee replacement 11/2007 Right foot /ankle rebuilt 03/2009 Right Hip Replacement 220 Left Hip Replacement 11/2020 Right Shoulder Replacement 2020 L4 -S1 Spinal Fusion 11/2021 Right Hamstring release 2021 Left Shoulder Replacement 2023 Right Carpul tunnel/ Ulnar nerve surgery 07/28/2024 * Hospitalization/Major Diagno stic Procedure:? * Family History:?Sister: Anxi ety disorder .? * Social History:?Tobacco Use:?Tobacco Control (Standard)?Tobacco use:?Nonsmoker.?Migrated Social History:?Migrated Social History: Alcohol Intake: Occasional 12/22/2023,Tobacco Years: Never smoker 11/13/2023. ???Miscellaneous:?Advance Care Planning?Are you your own decision-maker?Yes,?Do you have Power of Hobbing Press Operator for Health or Medical??No.? * Medications:?TakingclonazePA M 1 MG Tablet 1 tablet Oral twice a day As needed, Notes to Pharmacist: please cancel remaining scriptsbusPIRone HCl 15 MG Tablet 1 tablet Oral Twice a day , stop date 10/30/2024Venlafaxine HCl ER 150 MG Capsule Extended Release 24 Hour 1 capsule every motning Oral Once a day Taking clonazePAM 1 MG Tablet 1 tablet Oral twice a day As needed, Notes to Pharmacist: please cancel remaining scriptsTaking busPIRone HCl 15 MG Tablet 1 tablet Oral Twice a day , stop date 10/30/2024Taking Venlafaxine HCl ER 150 MG Capsule Extended Release 24 Hour 1 capsule every motning Oral Once a day UnknownPotassium Chloride [place] ER 20 MEQ Tablet Extended Release Oral Ezetimibe 10 MG Tablet Oral Levothyroxine Sodium 112 MCG Tablet Oral Metoprolol Tartrate 100 MG Tablet Oral Rosuvastatin Calcium 20 MG Tablet Oral Spironolactone 25 MG Tablet Oral Breo Ellipta 200-25 MCG/INH Aerosol Powder Breath Activated Inhalation Pantoprazole Sodium 40 MG Tablet Delayed Release Oral rOPINIRole HCl 2 MG Tablet Oral Pregabalin 150 MG Capsule Oral Furosemide 40 MG Tablet Oral ProAir HFA 108 (90 Base) MCG/ACT Aerosol Solution Inhalation Clopidogrel Bisulfate 75 MG Tablet Oral Medication List reviewed and reconciled with the patientUnknown Potassium Chloride [place] ER 20 MEQ Tablet Extended Release Oral Unknown Ezetimibe 10 MG Tablet Oral Unknown Levothyroxine Sodium 112 MCG Tablet Oral Unknown Metoprolol Tartrate 100 MG Tablet Oral Unknown Rosuvastatin Calcium 20 MG Tablet Oral Unknown Spironolactone 25 MG Tablet Oral Unknown Breo Ellipta 200-25 MCG/INH Aerosol Powder Breath Activated Inhalation Unknown Pantoprazole Sodium 40 MG Tablet Delayed Release Oral Unknown rOPINIRole HCl 2 MG Tablet Oral Unknown Pregabalin 150 MG Capsule Oral Unknown Furosemide 40 MG Tablet Oral Unknown ProAir HFA 108 (90 Base) MCG/ACT Aerosol Solution Inhalation Unknown Clopidogrel Bisulfate 75 MG Tablet Oral Medication List reviewed and reconciled with the patient * Allergies:?Alendronate Sodiu m: Allergy - Onset Date 12/22/2023efdinir: Allergy - Onset Date 12/22/2023Topiramate: Allergy - Onset Date 12/22/2023dhesive: Allergy - Onset Date 12/22/2023torvastatin: Allergy - Onset Date 12/22/2023Tizanidine: Allergy - Onset Date 12/22/2023no[Allergies Verified] Objective: * Vitals:? * Examination: ???Psychiatry: ?Appearance:?well-groomed.?Abnormal body movements:?none.?Affect / mood:?appropriate.?Attention:?good.?Attitude:?cooperative.?Homicidal ideation:?none.?Suicidal ideation:?none.?Degree of awareness of surroundings:?within normal limits.?Delusions:?no.?Hallucinations:?no.?Impulse control:?good.?Judgement:?good.?Orientation:?awake, alert and oriented x 3.?Perceptual disorders:?no perceptual disorder noted.?Psychomotor activity:?uses cane.?Speech / language:?normal rate, volume, and articulation (RVR).?Thought content:?appropriate.?Thought process:?intact.? Assessment: * Assessment: 1.?Major depressive disorder , recurrent, moderate - F33.1 (Primary)???2.?Generalized anxiety disorder - F41.1???3.?Tremor, unspecified - R25.1??? Plan: * Treatment: 2.?Generalized anxiety disor keyonna? Increase busPIRone HCl Tablet, 30 MG, 1 tablet, Oral, Twice a day, 90 days, 180 Tablet, Refills 0;?Refill clonazePAM Tablet, 1 MG, 1 tablet, Oral, twice a day As needed, 30 days, 60 Tablet, Refills 0, Notes to Pharmacist: please cancel remaining scripts.?? Notes: Increase buspar to 20mg BID for anxiety Patient educated on all medications including potential benefits, side effects, risks. Educated on proper dosing schedule and importance of compliance. [place]MP report checked and consistent with prescription history, no controlled substance prescriptions from other providers. Discussed and educated pt regarding benzodiazepines are generally not intended for prolonged use and that use can cause tolerance, dependence, depression, and associated memory issues including dementias (this list is not exhaustive). Benzodiazepine use is generally not recommended concurrently with pain medications and/or other controlled substances due to increased risks of profound sedation, respiratory depression, coma, and even . They are not to be used with any alcohol, as this combination can be lethal. ?? 3.?Tremor, unspecified? Notes: Stable ?? 4.?Others? Notes: Increase Buspar to 30mg BID for anxiety Patient educated on all medications including potential benefits, side effects, risks. Educated on proper dosing schedule and importance of compliance. ?? Clinical Notes: -Assessment and treatment plan reviewed with patient. -Compliance with treatment plan importance discussed. -Discussed the risks/benefits of this medication -Discussed medication side effects. -Contact office if symptoms worsen. -Discussed that it can take up to 6-8 weeks to see full therapeutic effects of psychotropic medications. -Crisis prevention hotline 988. ?? * Procedure Codes:?48913 BEHAV ASSMT W/SCORE & DOCD/STAND [id number] VISIT COMPLEXITY INHERENT TO ONGOING CARE RELATED TO A PATIENT'S SINGLE, SERIOUS CONDITION OR A COMPLEX [id number] CLIN DEPRESSION SCREEN DOC * Follow Up:?6 Weeks (Reason: medication follow up) * Billing Information: * Visit Code:? 22341 OFFICE OUTPATIENT VISIT 25 MINUTES DETAILED HISTORY AND EXAM/MODERATE MEDICAL DECISION MAKING. * Procedure Codes:? 54118 BEHAV ASSMT W/SCORE & DOCD/STAND INSTRUMENT. G2211 VISIT COMPLEXITY INHERENT TO ONGOING CARE RELATED TO A PATIENT'S SINGLE, SERIOUS CONDITION OR A COMPLEX CONDITION. G8431 CLIN DEPRESSION SCREEN DOC. * OR FINANCE MANAGER Sign off status: Completed true * Provider:?EVIE THOMAS Date:? Generated for Maximus mcdaniel/Ileana/Madelynitting on:?09/13/2024 06:30 AM SENIOR FINANCE MANAGER History and Physical Notes * HPI (History of Present Illness) Category Sub-Category Detail Notes Category Not es History of Presenting Problem Anxiety Rates anxiety 7/10 with 10 b eing most severe. Denies recent panic attacks. Here for follow up. Mag increased last apt. Reports she has not noticed much of a difference. Continues to have stress over recent scam, reports significant financial stressors. Also reporting she has been out of the Lyrica for the past week, complains of a headache today. Denies suicidal ideation, although depression is worse given recent stressors. Identifies feeling hopeless and helpless. Denies recent panic attacks. Sleep is fair, about 6 hours nightly. Energy is good. Appetite is fair. Depression Rates depression 8/ 0 with 10 being most severe. Denies SI. Suicidal ideation Denies Psychosis no hx psychosis Mood lability no hx andrew Past Psychiatric Hospitalizations Social hx: . Has three children. Retired in 2014 from a [employer]. Medical hx: tremors, fibromyalgia, arthritis, HTN, high cholesterol, hypothyroid, tinnitus, migraines Previous Psychiatric History previous admissions/IOP/PHP: none history of SI/SA: denies family psychiatric history: sister-bipolar disorder previously trialled medications: venlafaxine, Klonopin history of neglect/abuse/trauma: denies substance use history:none Social hx: . Has three children. Retired in 2014 from a [employer]. Medical hx: tremors, fibromyalgia, arthritis, HTN, high cholesterol, hypothyroid, tinnitus, migraines Previous Psychiatric History previous BH admissions/IOP/PHP: none history of SI/SA: denies family psychiatric history: sister-bipolar disorder previously trialled medications: venlafaxine, Klonopin history of neglect/abuse/trauma: denies substance use history:none Depression screening PHQ-9 Little inte rest or pleasure in doing things: Several days Feeling down, depressed, or hopeless: Se veral days Trouble falling or staying asleep, or sl eeping too much: Nearly every day Feeling tired or having little energy: N early every day Poor appetite or overeating: Several day s Feeling bad about yourself o r that you are a failure, or have let yourself or your family down: Several days Trouble concentrating on thi ngs, such as reading the newspaper or watching television: Not at all Moving or speaking so slowly that other people could have noticed; or the opposite, being so fidgety or restless that you have been moving around a lot more than usual: Not at all Thoughts that you would be b landon off or of hurting yourself in some way: Not at all Intervention Depression Screening Findings: P ositve Follow-Up for Depression: [facility] health treatment assessment, Patient follow-up to return when and if necessary Additional Evaluation for Depression: Ps ychiatric interview and evaluation Name of the standardized too l used for adult depression screening:: Patient Health Questionnaire (PHQ-9) Examination Category Sub-Category Detail Notes Category Not es Psychiatry Appearance: well-groomed Attitude: cooperative Psychomotor activity: uses cane Abnormal body movements: none Attention: good Degree of awareness of surroundings: wit hin normal limits Orientation: awake, alert and samantha ented x 3 Affect / mood: appropriate Speech / language: normal rate, volume, and articulation (RVR) Judgement: good Thought process: intact Thought content: appropriate Perceptual disorders: no perceptual diso rder noted Suicidal ideation: none Homicidal ideation: none Impulse control: good Delusions: no Hallucinations: no
--- OUTSIDE RECORDS SUMMARY | 2024-09-13 06:31 | XMS_ITS | Encounter Summary ---
Author Organization [facility] Address [facility] [facility] [place] [address] [place] [address] Care Team Providers Care Stadium Attendant Name Role Phone Sebastien Sequeira MD Primary Care Provider [phone] Encounter Details Date Type Department Care Team (Latest Contact Info) Description 12/10/2023 Travel Social History Tobacco Use Types Packs/Day Years Used Date Smoking Tobacco: Never Smokeless Tobacco: Never Alcohol Use Standard Drinks/Week Comments Not Currently 0 (1 standard drink = 0.6 oz pur e alcohol) Comments No Sex and Gender Information Value Date Recorded Sex Assigned at Not on file Legal Sex Female 2:03 AM CDT Gender Identity Not on file Sexual Orientation Not on file documented as of this encounter Functional Status * RETIRED Are you deaf or do you have serious difficulty hearing Answer Date of Assessment Author Status No 06/24/2021 11:17 AM CDT Acti ve * RETIRED Are you blind or do you have serious difficulty seeing, even when wearing glasses? Answer Date of Assessment Author Status No 06/24/2021 11:17 AM CDT Acti ve * Do you have serious difficulty walking or climbing stairs? Answer Date of Assessment Author Status No 06/24/2021 11:17 AM CDT Vania Degroot RN Active * Do you have difficulty dressing or bathing? Answer Date of Assessment Author Status No 06/24/2021 11:17 AM Vania Larson RN Active * Because of a physical, mental, or emotional condition, do you have difficulty doing errands alone such as visiting a doctor's office or shopping? Answer Date of Assessment Author Status No 06/24/2021 11:17 AM Vania Larson RN Active documented as of this encounter Mental Status * Because of a physical, mental, or emotional condition, do you have serious difficulty concentrating, remembering, or making decisions? Answer Entry Date Author Status No 06/24/2021 11:17 AM Vania Larson RN Active documented in this encounter Plan of Treatment Not on file documented as of this encounter Goals Goal Patient Goal Type Associated Problems Recent Progress Patient-Stated? Author Safety - able to safely ambulate at home; tripping hazards removed from the home General No Krystal Quigley RN Note: Pt wants to go home safely with new walker. Pt made aware that therapy will work with her on safety. documented as of this encounter Visit Diagnoses Not on filedocumented in this encounter Care Teams Stadium Attendant Relationship Specialty Start Date End Date Sebastien Sequeira MD [address] [place] [address] PCP - General INTERNAL MEDICINE 08/02/20 documented as of this encounter
--- OUTSIDE RECORDS SUMMARY | 2024-09-13 06:31 | XMS_ITS | Encounter Summary ---
Author Organization [facility] Address [address] [place] [address]. [place] [address] [place] [address] Care Team Providers Care Core Feeder Name Role Phone Sebastien Sequeira MD Primary Care Provider [phone] Encounter Details Date Type Department Care Team (Late st Contact Info) Description 08/18/2023 [place] Message Enc [facility] [address], [facility] [address] [place] [address] Gustavo So MD [address] [place] [id number] Visit Follow Up Social History Tobacco Use Types Packs/Day Years [...] Assessment Author Status No 06/24/2021 11:17 AM CANDELARIOT Vania Degroot RN Active * Do you [...] on filedocumented in this encounter Care Teams Core Feeder Relationship Specialty Start Date End Date Sebastien Sequeira MD [address] [place] [address] PCP - General INTERNAL MEDICINE 08/02/20 documented as of this encounter
--- OUTSIDE RECORDS SUMMARY | 2024-09-13 06:31 | XMS_ITS | Encounter Summary ---
Author Organization [facility] Address Formerly [facility], [facility] [place] [address] [place] [address] Care Team Providers Care Unemployment Inspector Name Role Phone Sebastien Sequeira MD Primary Care Provider [phone] Reason for Visit * Auth/Cert Specialty Diagnoses / Procedures Referred By Aaron rai Referred To Contact Diagnoses SHOULDER ARTHRITIS Procedures RECONSTR TOTAL SHOULDER IMPLANT RECONSTR TOTAL SHOULDER IMPLANT ARTHROPLASTY SHOULDER TOTAL REVERSE Cameron Avery MD [address] [place] [address] Phone: tel: fax: Referral ID Status Reason Start Date Expiration Date Visits Re quested Visits Authorized [id number] 1 1 Encounter Details Date Type Department Care Team (Late st Contact Info) Description 03/31/2024 11:24 AM CDT Anesthesia Event [facility] [address] [place] [address] Nathanael Jimenez II, MD [address] [place] [address] [place] [address] Janina Lunsford, RN Anesthesia Record Procedure Summary Procedure Name Responsible Anesthesiologist Anesthesia Start Time Anesthesia Stop Time ARTHROPLASTY SHOULDER TOTAL REVERSE (Left: Shoulder) Nathanael Jimenez II, MD 03/31/24 1124 07/18/24 1420 Events Date Time Event Comment 03/31/2024 1006 1124 An Start Patient ID and consent checked and patient reassessed. 1124 An Start Data 1126 Preoxygenation 1131 An Induction The patient was reevaluated immediately before moderate or deep sedation use and before anesthesia induction. 1134 An Intubation 1137 Anesthesia Ready 1324 Quick Note Troubleshooting blood pressure cuff 1345 Quick Note Blood pressure reading unreliable. Repeated attempts were made to readjust blood pressure cuff. ETC02 began to trend downward indicating possible hypotension. Restarted phenylephrine, hypotension detected by cuff - treated 1413 An Extubation 1420 an stop data 1420 Post Anesthetic Care Handoff I completed my handoff to the receiving nurse during which we: 1. Identified the patient 2. Identified the responsible provider 3. Reviewed the pertinent medical history 4. Discussed the surgical course 5. Reviewed intra-op anesthesia management and issues during anesthesia 6. Set expectations for post-procedure period 7. Allowed opportunity for questions and acknowledgement of understanding. 1420 An Stop Meds Name Total propofol (DIPRIVAN) 200 mg/20 mL injecti on 150 mg lidocaine (XYLOCAINE) 1% injection 30 mg rocuronium (ZEMURON) 50 mg/5 mL injectio n 120 mg dexamethasone (DECADRON) injection 8 mg ondansetron (ZOFRAN) 4 mg/2 mL injection 4 mg phenylephrine (JENNIFFER-SYNEPHRIN E) 10 mg in sodium chloride 0.9 % 250 mL infusion 7,250 mcg fentaNYL (SUBLIMAZE) 100 mcg/2 mL inject ion 100 mcg midazolam 2 mg/2 mL injection 1 mg ceFAZolin (ANCEF) 3 g in sodium chloride 0.9 % 100 mL IVPB 3 g tranexamic acid (CYKLOKAPRON) injection 2,000 mg sugammadex (BRIDION) 500 mg/5 mL injecti on 500 mg ropivacaine (ON-Q PUMP) 0.2% nerve block pump 550 mL Cannot be calculated lactated ringers infusion 1,200 mL * Agents Name O2 Air Inspired Sevoflurane Sevoflurane * Blood No blood administrations on file. Lines, Drains, and Airways Type Details Placement Removal Peripheral IV Placement Date: 03/14 05/07; Placement Time: 1047; Placed Outside of This Facility?: No; Size: 20 G; Orientation: Right; Location: Hand; Site Prep: Chlorhexidine; Local Anesthetic: None; Insertion attempts: 1; Patient Tolerance: Tolerated well; Removal Date: 04/01/24; Removal Time: 1515 03/31/24 1047 by Alexandria Pineda RN 04/01/24 1515 by Automatic Discharge Provider ETT Placement Date: 03/14 05/07; Placement Time: 1134; Placed Outside of This Facility?:No; Mask Ventilate: Prior to intubation, Easy; Size (mm) : 7; Endotracheal: Oral, Stylet used; Blade Type: MAC 3; Placement Method: Direct Laryngoscopy (blade type in comment); View Grade: 1; Viewable Anatomy: Epiglottis, Arytenoid, Vocal cords; Insertion Attempts: 1; Placement Verified By: Capnography, Auscultation, Chest Rise; Placed By: SRNA; Extubation Assessment: Suctioned, Alert, Tolerated well, Patient spontaneously breathing, Able to follow simple commands, Strong hand grasp, Lifts et holds head > 5 seconds, Deep breathes w/equal chest movements, Able to swallow, Atraumatic; Removal Date: 03/31/24; Removal Time: 1413; Removal Person: Other (Comment) (SRNA); Removal Reason: End of Case 03/31/24 1134 by Héctor Scales CRNA 03/31/24 1413 by Héctor Scales CRNA Surgical/Incision 03/31/24; 1351; Surg ical Wound; Shoulder; Left; DRESSING MEPILEX AG 4 X 10 (x1); 04/01/24; 1515 03/31/24 1351 by Toni Stroud RN 04/01/24 1515 by Automatic Discharge Provider documented in this encounter Social History Tobacco Use Types Packs/Day Years Used Date Smoking Tobacco: Never Smokeless Tobacco: Never Alcohol Use Standard Drinks/Week Comments Not Currently 0 (1 standard drink = 0.6 oz pur e alcohol) [facility] Utilities Answer Date Recorded In the past 12 months has Simphatic, gas, oil, or water A vida é [place] threatened to shut off services in your home? No 03/31/2024 Humiliation, Afraid, Rape, and Kick questionnair e Answer Date Recorded Within the last year, have y ou been afraid of your partner or ex-partner? No 03/31/2024 Within the last year, have y ou been humiliated or emotionally abused in other ways by your partner or ex-partner? No Within the last year, have y ou been kicked, hit, slapped, or otherwise physically hurt by your partner or ex-partner? No 03/31/2024 Within the last year, have y ou been raped or forced to have any kind of sexual activity by your partner or ex-partner? No 03/31/2024 Overall Financial Resource Strain (CARDIA) Answe r Date Recorded How hard is it for you to pa y for the very basics like food, housing, medical care, and heating? Not hard at all 03/31/2024 Hunger Vital Sign Answer Date Recorded Within the past 12 months, y ou worried that your food would run out before you got the money to buy more. Never true 03/31/20 24 Within the past 12 months, t he food you bought just didn't last and you didn't have money to get more. Never true 03/31/2024 PRAPARE - Transportation Answer Date Re corded In the past 12 months, has l ack of transportation kept you from medical appointments or from getting medications? No 03/14 In the past 12 months, has l ack of transportation kept you from meetings, work, or from getting things needed for daily living? No 03/31/2024 Housing Stability Vital Sign Answer Satya e Recorded In the last 12 months, was t here a time when you were not able to pay the mortgage or rent on time? No 03/31/2024 In the past 12 months, how m any times have you moved where you were living? 1 03/31/2024 At any time in the past 12 m [facility], were you homeless or living in a prison (including now)? No 03/31/2024 Comments No Sex and Gender Information Value [...] AM CANDELARIOT Vania Degroot RN Active * Because of a physical, mental, or emotional condition, do you have difficulty doing errands alone such as visiting a doctor's office or shopping? Answer Date of Assessment Author Status No 06/24/2021 11:17 AM CANDELARIOT Vania Degroot RN Active documented as of this encounter Mental Status * Because of a physical, mental, or emotional condition, do you have serious difficulty concentrating, remembering, or making decisions? Answer Entry Date Author Status No 06/24/2021 11:17 AM CANDELARIOT Vania Degroot RN Active documented in this encounter OR Notes * Anesthesia Postprocedure Evaluation - Nathanael Jimenez II, MD - 03/31/2024 5:19 PM CDT Anesthesia Post-op Note [place] [place] Procedure(s): ARTHROPLASTY SHOULDER TOTAL REVERSE (Left: Shoulder) Anesthesia type: general Vitals: 03/31/24 1645 BP: 107/75 Vitals: 03/31/24 1645 Pulse: 82 Vitals: 03/31/24 1645 Resp: 18 Vitals: 03/31/24 1420 Temp: 36.2 ??C Vitals: 03/31/24 1645 SpO2: 92% Patient Location: PACU Level of Consciousness: awake and oriented Pain Management: adequate analgesia Airway Patency: patent Respiratory Status: acceptable Cardiovascular Status: acceptable Post-Op Nausea: none Postoperative Hydration: euvolemic There were no known notable events for this encounter. * Anesthesia Preprocedure Evaluation - Renee Wellington MD - 03/30/2024 1:29 PM CDT Anesthesia ROS/MED History Reviewed: Patient summary , Nursing notes , Family history anesthesia, Anesthesia history , Medications Pre-Anesthetic State: alert, awake and responds appropriately no history of anesthetic complications Pulmonary (+) shortness of breath, sleep apnea, asthma Cardiovascular (+) hypertension, arrhythmia (first degree av block), (SVT), hyperlipidemia ROS comment: 03/22/24 EKG- sinus rhythm first degree av block intra atrial conduction delay ECHO 01/2023% C.C 03/30/24-low risk, hold plavix 4 days prior Neuro/Psych (+) CVA (unknown when - found on head CT, takes plavix for this), depression, anxiety, headaches Comments: Lumbar radiculopathy Restless leg Peripheral sensory neuropathy Cascade palsy Substance Use GI/Hepatic/Renal (+) GERD Endo/Other (+) obese, hypothyroidism, arthritis Comments: ozempic GENERAL COMMENTS 03/22/24 h&p Last took ozempic ~10 days ago NPO Status: Physical Evaluation Airway Mallampati: II TM Distance: >3 FB Neck ROM: normal Dental (lower dentures), (upper dentures) Pulmonary Pulmonary exam normal Breath sounds clear to auscultation Cardiovascular Rhythm: regular Rate: normal STOP-Bang Assessment: Anesthesia Plan ASA 3 Intravenous Induction Anesthesia type: general Plan for Airway: ETT Plan for Post-op Pain Plan: oral pain medication, IV analgesics and as per surgeon LABS: Lab Results Component Value Date/Time HGB 13.1 10/31/2022 11:50 AM PLT 208 10/31/2022 11:50 AM ANTICOAGULATION STATUS: Plavix stopped 5 days ago Informed Consent Anesthetic plan and risks discussed with patient of whom consent was obtained. Consent of blood products not discussed. . documented in this encounter Plan of Treatment [...] Diagnoses Not on filedocumented in this encounter Administered Medications Inactive Administered Medications - up to 3 most recent administrations Medication Order MAR Action Action Date Dose Rate Site ceFAZolin (ANCEF) 3 g in sodium chloride 0.9 % 100 mL IVPB 3 g, Intravenous, at 400 mL/hr, Once, 1 dose, On Ermelinda 03/31/24 at 0945, Pre-Op New Bag 03/31/2024 11:46 AM CDT 3 g dexamethasone (DECADRON) injection Intravenous, PRN, Starting on Ermelinda 03/31/24 at 1204, Until Ermelinda 03/31/24 at 1424, Anesthesia Intra-Op Given 03/31/2024 12:04 PM CDT 8 mg fentaNYL (SUBLIMAZE) injection Intravenous, PRN, Starting on Ermelinda 03/31/24 at 1124, Until Ermelinda 03/31/24 at 1424, Anesthesia Intra-Op Given 03/31/2024 11:24 AM CDT 100 mcg lactated ringers infusion at 10 mL/hr, Intravenous, Continuous, Starting on Ermelinda 03/31/24 at 0945, Until Thu04/01/24 at 1520, Infuse at TKO rate, Pre-Op New Bag 03/31/2024 1:33 PM CDT New Bag 03/31/2024 11:24 AM CDT lidocaine (XYLOCAINE) 1 % injection SOLN Other, PRN, Starting on Ermelinda 03/31/24 at 1131, Until Ermelinda 03/31/24 at 1424, Anesthesia Intra-Op Given 03/31/2024 11:31 AM CDT 30 mg midazolam (VERSED) injection Intravenous, PRN, Starting on Ermelinda 03/31/24 at 1124, Until Ermelinda 03/31/24 at 1424, Anesthesia Intra-Op Given 03/31/2024 11:24 AM CDT 1 mg ondansetron (ZOFRAN) injection Intravenous, PRN, Starting on Ermelinda 03/31/24 at 1400, Until Ermelinda 03/31/24 at 1424, Anesthesia Intra-Op Given 03/31/2024 2:00 PM CDT 4 mg phenylephrine (JENNIFFER-SYNEPHRINE) 10 mg in sodium chloride 0.9 % 250 mL infusion Intravenous, Continuous PRN, Starting on Ermelinda 03/31/24 at 1140, Until Ermelinda 03/31/24 at 1424, Anesthesia Intra-Op Bolus 03/31/2024 1:41 PM CDT 80 mcg Bolus 03/31/2024 1:39 PM CDT 80 mcg Restarted 03/31/2024 1:35 PM CDT 50 mcg/min 75 mL/hr propofol (DIPRIVAN) IV bolus Intravenous, PRN, Starting on Ermelinda 03/31/24 at 1131, Until Ermelinda 03/31/24 at 1424, Anesthesia Intra-Op Given 03/31/2024 11:31 AM CDT 150 mg rocuronium (ZEMURON) injection Intravenous, PRN, Starting on Ermelinda 03/31/24 at 1131, Until Ermelinda 03/31/24 at 1424, Anesthesia Intra-Op Given 03/31/2024 12:34 PM CDT 20 mg Given 03/31/2024 11:31 AM CDT 100 mg ropivacaine (ON-Q PUMP) 0.2% nerve block pump 550 mL Nerve Block catheter, Continuous PRN, Starting on Ermelinda 03/31/24 at 1458, Until Ermelinda 03/31/24 at 1504, Anesthesia Intra-Op New Bag 03/31/2024 2:58 PM CDT 12 mL/hr 12 mL/hr sugammadex (BRIDION) injection Intravenous, PRN, Starting on Ermelinda 03/31/24 at 1405, Until Ermelinda 03/31/24 at 1424, Anesthesia Intra-Op Given 03/31/2024 2:10 PM CDT 200 mg Given 03/31/2024 2:05 PM CDT 300 mg tranexamic acid (CYKLOKAPRON) injection Intravenous, PRN, Starting on Ermelinda 03/31/24 at 1157, Until Ermelinda 03/31/24 at 1424, Anesthesia Intra-Op Given 03/31/2024 1:55 PM CDT 1,000 mg Given 03/31/2024 11:57 AM CDT 1,000 mg documented in this encounter Care Teams Unemployment Inspector Relationship Specialty Start Date End Date Sebastien Sequeira MD [address] [place] [address] PCP - General INTERNAL MEDICINE 08/02/20 documented as of this encounter
--- OUTSIDE RECORDS SUMMARY | 2024-09-13 06:31 | XMS_ITS | Clinical Summary ---
Author Organization [facility] Address Formerly [facility] [place] [address] [place] [address] Care Team Providers Care Usability Strategist Name Role Phone Sebastien Sequeira MD Primary Care Provider [phone] Allergies Active Allergy Reactions Criticality Noted Date Comments Naltrexone-Bupropion Hcl Er Dizziness 08/03/2020 Statins Rash Low 08/03/2020 Topiramate Nausea and Vomiting,Hyperactive Medium 12/10/2023 Tizanidine Other (see comment) 08/03/2020 hypotension Medications pantoprazole EC 40 MG tablet Take 1 tablet (40 mg total) by mouth every morning. 06/29/2020 Active nortriptyline 25 MG capsule Take 1 capsule (25 mg total) by mouth nightly at bedtime. 11/15/2013 Active rOPINIRole 2 MG tablet Take 2 tablets (4 mg total) by mouth nightly at bedtime. 01/20/2020 Active venlafaxine XR 150 MG 24 hr capsule Take 1 capsule (150 mg total) by mouth every morning. 05/24/2020 Active ezetimibe 10 MG tablet Take 1 tablet (10 mg total) by mouth nightly at bedtime. 06/18/2020 Active rosuvastatin 20 MG tablet Take 1 tablet (20 mg total) by mouth nightly at bedtime. at bedtime. 10/18/2020 Active Semaglutide (OZEMPIC, 0.25 OR 0.5 MG/DOSE, SC) Inject 1 mg into the skin weekly. Hold x 7 days. Last dose 08/20 to hold until after surgery 06/20/2021 Active clopidogrel 75 MG tablet Take 1 tablet (75 mg total) by mouth daily. Hold x 4 days per surgeon. Last dose: 07/27. 11/13/2021 Active pregabalin (LYRICA) 150 MG capsule Take 1 capsule (150 mg total) by mouth 2 (two) times daily. 2 in AM, 1 at bedtime. 06/05/2022 Active clonazePAM (KLONOPIN) 1 MG tablet Take 1 tablet (1 mg total) by mouth 2 (two) times a day. 05/22/2023 Active furosemide (LASIX) 40 MG tablet Take 1 tablet (40 mg total) by mouth every morning. Will hold DOS 12/18/2022 Active levothyroxine (SYNTHROID) 112 MCG tablet Take 1 tablet (112 mcg total) by mouth every morning. 05/27/2023 Active potassium chloride CR (KLOR-CON M) 20 MEQ tablet Take 1 tablet (20 mEq total) by mouth every evening. 08/10/2023 Active albuterol sulfate HFA 108 (90 Base) MCG/ACT inhaler Inhale 2 puffs into the lungs every 6 (six) hours as needed. 11/24/2023 Active BREO ELLIPTA 200-25 MCG/ACT inhaler Inhale 1 puff into the lungs every morning. 12/01/2023 Active propranolol LA (INDERAL LA) 120 MG 24 hr capsule Take 1 capsule (120 mg total) by mouth nightly at bedtime. Active busPIRone (BUSPAR) 15 MG tablet Take 20 mg by mouth 2 (two) times a day. Active spironolactone (ALDACTONE) 25 MG tablet Take 1 tablet (25 mg total) by mouth every morning. Hold DOS 12/22/2023 Active melatonin 5 MG tablet Take 2 tablets (10 mg total) by mouth nightly at bedtime. Active Magnesium 400 MG Cap Take 1 capsule by mouth nightly at bedtime. Active fluticasone propionate (FLONASE) 50 MCG/ACT nasal spray 2 sprays by Each Nostril route daily. Active vitamin B-2 (RIBOFLAVIN) 100 MG tablet Take 4 tablets (400 mg total) by mouth every evening. Active oxyCODONE immediate release (ROXICODONE) 5 MG immediate release tablet Take 1 tablet (5 mg total) by mouth every 4 (four) hours as needed for Pain. 08/26/2024 Active mirtazapine (REMERON) 15 MG tablet Take 1 tablet (15 mg total) by mouth nightly at bedtime. 08/29/2024 Active Active Problems Problem Noted Date Diagnosed Date Rotator cuff arthropathy, left 03/31/2024 S/P reverse total shoulder arthroplasty, left History of total knee arthroplasty, right 2022 Recurrent pain of right knee 11/10/2022 Painful orthopaedic hardware 07/28/2022 Osteoarthritis of left glenohumeral joint 2021 Status post reverse arthroplasty of right should er 06/25/2021 Rotator cuff arthropathy of right shoulder 06/24 Radiculopathy, lumbar region 01/17/2021 Primary osteoarthritis of right hip 11/19/2020 Primary osteoarthritis of left hip 08/13/2020 Status post left hip replacement 08/13/2020 Daytime hypersomnia 10/05/2017 Obstructive sleep apnea 08/18/2014 Post-nasal drip 08/18/2014 Restless legs syndrome 08/18/2014 Hypertension 08/18/2014 Fibromyalgia 08/18/2014 Arthritis 08/18/2014 Resolved Problems Problem Noted Date Diagnosed Date Resolved Date Pes anserinus bursitis of right knee 07/13/2022 09/23/2022 Follow-up examination after orthopedic surgery 12/10/2021 07/14/2022 Encounters Date Type Department Care Team Description 09/01/2024 8:30 AM SUPERINTENDENT OF GENERATION - 09/01/2024 10:13 AM SUPERINTENDENT OF GENERATION [facility] [place] [address] [place] [address] Cameron Avery MD RELEASE CARPAL TUNNEL 09/01/2024 8:30 AM SUPERINTENDENT OF GENERATION Anesthesia Event [facility] [place] [address] [place] [address] Senthil North MD Coonrod, Sheila A, RN 09/01/2024 5:59 AM SUPERINTENDENT OF GENERATION - 09/01/2024 11:21 AM SUPERINTENDENT OF GENERATION Hospital Encounter [facility] [place] [address] [place] [address] Cameron Avery MD Discharge Disposition: Home or Self Care (Routine Discharge) 09/01/2024 Travel 08/25/2024 Travel 08/04/2024 8:30 AM SUPERINTENDENT OF GENERATION - 08/04/2024 10:13 AM SUPERINTENDENT OF GENERATION Surgery [facility] [address] [place] [address] Cameron Avery MD RELEASE CARPAL TUNNEL 08/04/2024 8:28 AM SUPERINTENDENT OF GENERATION Anesthesia Event [facility] [address] [place] [address] Senthil North MD Bracco, Kendra A, RN 08/04/2024 6:14 AM SUPERINTENDENT OF GENERATION - 08/04/2024 11:05 AM SUPERINTENDENT OF GENERATION Hospital Encounter [facility] [address] [place] [address] Cameron Avery MD Discharge Disposition: Home or Self Care (Routine Discharge) 08/03/2024 Travel 07/29/2024 Travel 07/28/2024 Scan [facility] [address] [place] [address] Scanned, Documents Lab (SCAN) from Last 3 Months Family History Medical History Relation Comments histoplasmosi Brother COPD Father Cancer Mother Breast/Liver Cancer Sister 1 No Known Problems Sister 2 Multiple Sclerosis Sister 3 Relation Status Comments Brother Alive Father Mother Sister 1 Alive Sister 2 Alive Sister 3 Alive Social History Tobacco Use Types Packs/Day Years Used Date Smoking Tobacco: Never Smokeless Tobacco: Never Tobacco Cessation:Counseling Given: Not Answered Alcohol Use Standard Drinks/Week Comments Not Currently 0 (1 standard drink = 0.6 oz pur e alcohol) [facility] Utilities Answer Date Recorded In the past 12 months has e [employer], gas, oil, or water [employer] threatened to shut off services in your [...] any time in the [facility] were you homeless or living in a alf (including now)? No 03/31/2024 Comments No Sex and Gender Information Value Date Recorded Sex Assigned at Not on file Legal Sex Female 2:03 AM CDT Gender Identity Not on file Sexual Orientation Not on file Last Filed Vital Signs Vital Sign Reading Time Taken Comments Blood Pressure 129/73 09/01/2024 10:26 AM SUPERINTENDENT OF GENERATION Pulse 77 09/01/2024 10:26 AM SUPERINTENDENT OF GENERATION Temperature 36 ??C (96.8 ??F) 09/01/2024 10:26 AM SUPERINTENDENT OF GENERATION Respiratory Rate 18 09/01/2024 10:26 AM SUPERINTENDENT OF GENERATION Oxygen Saturation 95% 09/01/2024 10:26 AM SUPERINTENDENT OF GENERATION Inhaled Oxygen Concentration - - Weight 131.5 kg (290 lb) 09/01/2024 7:05 AM SUPERINTENDENT OF GENERATION Height 172.7 cm (5' 8 ) 09/01/2024 7:05 AM SUPERINTENDENT OF GENERATION Body Mass Index 44.09 09/01/2024 7:05 AM SUPERINTENDENT OF GENERATION Plan of Treatment Health Maintenance Due Date Last Done Comments Colorectal Cancer Screening Colonoscopy (10 Years) 1950 Hepatitis C 1969 DTaP, Tdap and Td Vaccines ( 1 - Tdap) 1970 Mammogram Screening 1991 RSV Immunization or 60+ Years (1 - Risk 60-74 years 1-dose series) 2011 Zoster Vaccines (2 of 3) 10/17/2015 08/22/2015 Annual Medicare Wellness Visit 2016 Dexa Scan (General) 2016 Pneumococcal Vaccine: 65+ Years (2 of 2 - PPSV23 or PCV20) 08/23/2017 08/23/2016 COVID-19 Vaccine (3 - 2023-2 5 season) 2024 11/23/2020, 11/02/2020 Influenza Adult (#1) 2024 06/23/2020, 1950 Meningococcal Vaccine Aged Out No rishi craig eligible based on patient's age to complete this topic RSV Immunizations Under 20 Months Aged Out No longer eligible b ased on patient's age to complete this topic Goals Goal Patient Goal Type Associated Problems Recent Progress Patient-Stated? Author Safety - able to safely ambulate at home; tripping hazards removed from the home General No Krystal Quigley, RN Note: Pt wants to go home safely with new walker. Pt made aware that therapy will work with her on safety. Medical Devices Implanted Type Area Communications Strategist Device Identifier Shelf Expiration Date Model / Serial / Lot Cement Bone 20/10 Fast Set Depuy - [id number] Implanted:Qty: 1 on 03/31/2024 by Cameron Avery MD at [facility] Cement Implant Left: Shoulder DEPUY 07/14/2025 [id number] / / Cup Hip Acetabular Depuy 52mm - [id number] Implanted:Qty: 1 on 08/13/2020 by Gustavo So MD at [facility] Hip Components Left: Hip DEPUY 11/11/2029 [id number] / / [id number] Stem Hip Depuy Tapered - [id number] Implanted:Qty: 1 on 08/13/2020 by Gustavo So MD at [facility] Hip Components Left: Hip DEPUY 01/11/2030 [id number] / / [id number] Head Depuy Femoral Articuleze 36mm +8.5 - [id number] Implanted:Qty: 1 on 08/13/2020 by Gustavo So MD at [facility] Hip Components Left: Hip DEPUY 07/14/2024 [id number] / / [id number] Liner Depuy Acet Altrx +4 10d 36 X 52 - [id number] Implanted:Qty: 1 on 11/19/2020 by Gustavo So MD at [facility] Hip Components Right: Hip DEPUY [id number] 07/14/2025 [id number] / / [id number] Stem Hip Depuy Tapered - [id number] Implanted:Qty: 1 on 11/19/2020 by Gustavo So MD at [facility] Hip Components Right: Hip DEPUY [id number] 06/13/2030 [id number] / / [id number] Stem Humeral 120mm 12mm Modular Global Unite Porocoat Standard Shoulder Sterile Platform Arthroplasty System - [id number] Implanted:Qty: 1 on 06/24/2021 by Gustavo So MD at [facility] Humeral Right: Shoulder DEPUY [id number] 02/11/2031 [id number] / / [id number] Cup Humeral Standard Delta Xtend Depuy - [id number] Implanted:Qty: 1 on 06/24/2021 by Gustavo So MD at [facility] Humeral Right: Shoulder DEPUY [id number] 03/13/2026 [id number] / / [id number] Spacer Humeral Depuy 9mm - [id number] Implanted:Qty: 1 on 06/24/2021 by Gustavo So MD at [facility] Humeral Right: Shoulder DEPUY [id number] 10/14/2024 [id number] / / [id number] Screw Depuy Cancellous Bone 6.5mm X 30mm - [id number] Implanted:Qty: 1 on 11/19/2020 by Gustavo So MD at [facility] Screw Right: Hip DEPUY [id number] 08/13/2030 [id number] / / [id number] Screw Locking Depuy Delta Xtend Lg 30mm - [id number] Implanted:Qty: 1 on 06/24/2021 by Gustavo So MD at [facility] Screw Right: Shoulder DEPUY [id number] 02/11/2026 [id number] / / [id number] Screw Locking Depuy Delta Xtend Lg 36mm - [id number] Implanted:Qty: 1 on 06/24/2021 by Gustavo So MD at [facility] Screw Right: Shoulder DEPUY [id number] 01/11/2026 [id number] / / [id number] Screw Locking Depuy Delta Xtend Lg 30mm - [id number] Implanted:Qty: 1 on 06/24/2021 by Gustavo So MD at [facility] Screw Right: Shoulder DEPUY [id number] 12/12/2025 [id number] / / [id number] Screw Non Locking Depuy Delta Xtend Lg 18mm - [id number] Implanted:Qty: 1 on 06/24/2021 by Gustavo So MD at [facility] Screw Right: Shoulder DEPUY [id number] 03/13/2026 [id number] / / [id number] Screw Compression /Locking Cap Kit Exactech 4.5 X 38mm - [id number] Implanted:Qty: 1 on 03/31/2024 by Cameron Avery MD at [facility] Screw Left: Shoulder EXACTECH 10/12/2028 320-20-38 / / Screw Reverse Torque Defing Exactech - [id number] Implanted:Qty: 1 on 03/31/2024 by Cameron Avery MD at [facility] Screw Left: Shoulder EXACTECH 01/24/2029 320-20-00 / / Screw Compression /Locking Cap Kit Exactech 4.5 X 22mm - [id number] Implanted:Qty: 1 on 03/31/2024 by Cameron Avery MD at [facility] Screw Left: Shoulder EXACTECH 10/31/2028 320-20-22 / / Screw Compression /Locking Cap Kit Exactech 4.5 X 38mm - [id number] Implanted:Qty: 1 on 03/31/2024 by Cameron Avery MD at [facility] Screw Left: Shoulder EXACTECH 11/01/2028 320-20-38 / / Screw Locking Glenosphere Exactech - [id number] Implanted:Qty: 1 on 03/31/2024 by Cameron Avery MD at [facility] Screw Left: Shoulder EXACTECH 11/24/2028 320-15-05 / / Screw Compression /Locking Cap Kit Exactech 4.5 X 30mm - [id number] Implanted:Qty: 1 on 03/31/2024 by Cameron Avery MD at [facility] Screw Left: Shoulder EXACTECH 10/05/2028 320-20-30 / / Metaglene Depuy Delta Xtend - [id number] Implanted:Qty: 1 on 06/24/2021 by Gustavo So MD at [facility] Shoulder Components Right: Shoulder DEPUY [id number] 03/13/2026 [id number] / / [id number] Epiphysis Delta Xtend Depuy Size 1 Right - [id number] Implanted:Qty: 1 on 06/24/2021 by Gustavo So MD at [facility] Shoulder Components Right: Shoulder DEPUY [id number] 05/14/2025 [id number] / / [id number] Liner Depuy Acet Altrx +4 10d 36 X 52 - [id number] Implanted:Qty: 1 on 08/13/2020 by Gustavo So MD at [facility] Left: Hip DEPUY 02/11/2023 [id number] / / [id number] Hip Acetabular Depuy 52mm - [id number] Implanted:Qty: 1 on 11/19/2020 by Gustavo So MD at [facility] Right: Hip DEPUY [id number] 09/13/2030 [id number] / / [id number] M-Spec Metal Femoral Head Implanted:Qty: 1 on 11/19/2020 by Gustavo So MD at [facility] Right: Hip DEPUY [employer] 09/13/2025 [id number] / / [id number] Delta Xtend Lateralized Glenosphere +2mm 38 Standard Implanted:Qty: 1 on 06/24/2021 by Gustavo So MD at [facility] Right: Shoulder [id number] 04/13/2026 [id number] / / [id number] Glenoid Baseplate Implanted:Qty: 1 on 03/31/2024 by Cameron Avery MD at [facility] Left: Shoulder EXACTECH 06/03/2033 320-35-02 / / Reverse Glenosphere Implanted:Qty: 1 on 03/31/2024 by Cameron Avery MD at [facility] Left: Shoulder EXACTECH 11/19/2033 320-31-40 / / 3.2 Drill Bit Implanted:Qty: 1 on 03/31/2024 by Cameron Avery MD at [facility] Left: Shoulder EXACTECH 02/19/2033 321-52-07 / / Humeral Adapter Tray Implanted:Qty: 1 on 03/31/2024 by Cameron Avery MD at [facility] Left: Shoulder EXACTECH 01/04/2034 322-10-00 / / Humeral Stem Implanted:Qty: 1 on 03/31/2024 by Cameron Avery MD at [facility] Left: Shoulder EXACTECH 12/28/2033 300-01-00 / / 40mm Humeral Liner Implanted:Qty: 1 on 03/31/2024 by Cameron Avery MD at [facility] Left: Shoulder EXACTECH 12/13/2028 322-40-00 / / Explanted Type Area Communications Strategist Device Identifier Shelf Expiration Date Model / Serial / Lot Drill Bit [place] Depuy 40mm - [id number] Explanted:Qty: 1 on 11/19/2020 at [facility] Drill Right: Hip DEPUY [id number] / / Drill Bit Depuy 2.5 - [id number] Explanted:Qty: 1 on 06/24/2021 at [facility] Drill Right: Shoulder DEPUY [id number] / / Metaglene Guide Pin 2.5 Mm Explanted:Qty: 1 on 06/24/2021 at [facility] Right: Shoulder [id number] / / 3.2mm Gps Drill Explanted:Qty: 1 on 03/31/2024 by Cameron Avery MD at [facility] Left: Shoulder EXACTECH 11/17/2032 531-55-88 / / Threaded Pin Kit Explanted:Qty: 1 on 03/31/2024 by Cameron Avery MD at [facility] Left: Shoulder EXACTECH 01/24/2033 531-78-20 / / Gps User Kit Explanted:Qty: 1 on 03/31/2024 by Cameron Avery MD at [facility] Left: Shoulder EXACTECH 02/27/2026 [id number] / / Drill Bit Explanted:Qty: 1 on 03/31/2024 by Cameron Avery MD at [facility] Left: Shoulder EXACTECH 02/19/2033 321-52-07 / / Procedures Procedure Name Priority Date/Time Associated Diagnosis Comments RELEASE ULNAR NERVE 09/01/2024 8 :15 AM SUPERINTENDENT OF GENERATION CARPAL AND CUBITAL TUNNEL SYNDROME Case Notes HAND TABLE REVISE MEDIAN N/CARPAL TUNNEL SURG 09/01/2024 8:15 AM SUPERINTENDENT OF GENERATION CARPAL AND CUBITAL TUNNEL SYNDROME Case Notes HAND TABLE RELEASE ULNAR NERVE 08/04/2024 8 :13 AM SUPERINTENDENT OF GENERATION CARPAL AND CUBITAL TUNNEL SYNDROME Case Notes HAND TABLE REVISE MEDIAN N/CARPAL TUNNEL SURG 08/04/2024 8:13 AM SUPERINTENDENT OF GENERATION CARPAL AND CUBITAL TUNNEL SYNDROME Case Notes HAND TABLE OUTSIDE LAB (SCAN ORDER) Routine 07/28/2024 12:00 AM SUPERINTENDENT OF GENERATION from Last 3 Months Results * OUTSIDE LAB (07/28/2024 12:00 AM SUPERINTENDENT OF GENERATION) 07/28/2024 [facility] Scanned SCANNING Final Resul t [facility] from Last 3 Months Insurance [facility] Advance Directives Documents on File Type Date Recorded Patient Salesperson Meats Expl anation Advance Directives and Living Will 08/14/2020 9:58 AM 08/03/2020 DURABLE POWER OF MACHINE II ENGRAVER FOR HEALTH CARE Advance Directives and Living Will 06/26/2021 7:44 AM 06/25/2021 POLST Advance Directives and Living Will 06/26/2021 7:43 AM 06/25/2021 POLST * Full Code (Latest Code Status on File) Date Activated Date Inactivated Comments 03/31/2024 8:48 PM 04/01/2024 3:25 PM * Full Code Date Activated Date Inactivated Comments 11/19/2020 9:32 PM 11/21/2020 5:23 PM * Full Code Date Activated Date Inactivated Comments 08/13/2020 6:55 PM 08/14/2020 6:46 PM Care Teams Usability Strategist Relationship Specialty Start Date End Date Sebastien Sequeira MD [address] [place] [id number] PCP - General INTERNAL MEDICINE 08/02/20
--- OUTSIDE RECORDS SUMMARY | 2024-09-13 06:31 | XMS_ITS | Encounter Summary ---
Author Organization [facility] Address [facility] [place] [address] [place] [address] Care Team Providers Care Hull And Deck Remover Name Role Phone Sebastien Sequeira MD Primary Care Provider [phone] Encounter Details Date Type Department Care Team (Latest Contact Info) Description 03/31/2024 Travel Social History Tobacco Use Types Packs/Day Years Used Date Smoking Tobacco: Never Smokeless Tobacco: Never Alcohol Use Standard Drinks/Week Comments Not Currently 0 (1 standard drink = 0.6 oz pur e alcohol) [facility] Utilities Answer Date Recorded In the past 12 months has e [employer] (app), gas, oil, or water [employer] threatened to shut off services in your [...] any time in the past 12 m [facility], were you homeless or living in a long term (including now)? No 03/31/2024 Comments No Sex and Gender Information Value Date Recorded Sex Assigned at Not on file Legal Sex Female 2:03 AM CDT Gender Identity Not on file Sexual Orientation Not on file documented as of this encounter Functional Status * Question Answer Date of Assessment Author Status Do you have serious difficulty walking or climbing stairs? Yes 03/31/2024 11:22 PM Desmond Merritt RN A ctive * Question Answer Date of Assessment Author Status Do you have difficulty dressing or bathing? No 03/31/2024 11:22 PM Desmond Merritt RN Active Because of a physical, mental, or emotional condition, do you have difficulty doing errands alone such as visiting a doctor's office or shopping? No 03/31/2024 11:22 PM Desmond Merritt RN Ac tive * Are you deaf or do you have serious difficulty hearing Answer Date of Assessment Author Status No 03/31/2024 9:26 AM Alexandria Bradley RN Active * Are you blind or do you have serious difficulty seeing, even when wearing glasses? Answer Date of Assessment Author Status No 03/31/2024 9:26 AM Alexandria Bradley RN Active * Do you have serious difficulty walking or climbing stairs? Answer Date of Assessment Author Status No 06/24/2021 11:17 AM Vania Larson RN Active * Do you have difficulty [...] as of this encounter Mental Status * Question Answer Entry Date Author Status Because of a physical, mental, or emotional condition, do you have serious difficulty concentrating, remembering, or making decisions? No 03/31/2024 11:22 PM Desmond Merritt RN Active * Because of a physical, [...] on filedocumented in this encounter Care Teams Hull And Deck Remover Relationship Specialty Start Date End Date Sebastien Sequeira MD [address] [place] [address] PCP - General INTERNAL MEDICINE 08/02/20 documented as of this encounter
--- OUTSIDE RECORDS SUMMARY | 2024-09-13 06:31 | XMS_ITS | Encounter Summary ---
Author Organization [facility] [place] Address [facility] [place] [address] [place] [address] Care Team Providers Care Title Checker Name Role Phone Sebastien Sequeira MD Primary Care Provider [phone] Reason for Visit * Auth/Cert (Routine) Specialty Diagnoses / Procedures Referred By Contdennis t Referred To Contact Diagnoses CARPAL AND CUBITAL TUNNEL SYNDROME Procedures REVISE MEDIAN N/CARPAL TUNNEL SURG REVISE ULNAR NERVE AT ELBOW REVISE MEDIAN N/CARPAL TUNNEL SURG RELEASE CARPAL TUNNEL IN SITU ULNAR NERVE RELEASE An Vargas MD [address] [place] [id number] Phone: tel: fax: Referral ID Status Reason Start Date Expiration Date Visits Re quested Visits Authorized [id number] 1 1 Encounter Details Date Type Department Care Team (Late st Contact Info) Description 09/01/2024 8:30 AM ELASTIC ASSEMBLER - 09/01/2024 10:13 AM ELASTIC ASSEMBLER Surgery [facility] OR [address] [place] [address] An Vargas MD [address] [place] [id number] RELEASE CARPAL TUNNEL Surgery Details Date/Time Status Location OR Service Patient Class Case Class Case Type Trauma Case? 09/01/2024 8:30 AM Posted [facility] Main OR MS 14 Orthopedics Short Stay/Outpa tient Surgery E - Elective No Panel 1 Procedure LRB Anes Op Region Wound Class Comments RELEASE CARPAL TUNNEL Left General Hand Clean IN SITU ULNAR NERVE RELEASE Left General Arm Cl [place] Surgeon Surgeon Role Service Panel An Vargas MD Primary Orthopedics 1 Jose Roberto Mckeon MD Resident - Assisting Orthopedics 1 Case Notes HAND TABLE documented in this encounter Social History Tobacco Use Types Packs/Day Years Used Date Smoking Tobacco: Never Smokeless Tobacco: Never Alcohol Use Standard Drinks/Week Comments Not Currently 0 (1 standard drink = 0.6 oz pur e alcohol) [facility] Utilities Answer Date Recorded In the past 12 months has e electric, gas, oil, or water [employer] threatened to shut off services in your [...] [facility] the [facility] were you homeless or living in a detention (including now)? No 03/31/2024 Comments No Sex and Gender Information Value Date Recorded Sex Assigned at Not on file Legal Sex Female 2:03 AM CDT Gender Identity Not on file Sexual Orientation Not on file documented as of this encounter Last Filed Vital Signs Vital Sign Reading Time Taken Comments Blood Pressure 129/73 09/01/2024 9:55 AM ELASTIC ASSEMBLER Pulse 78 09/01/2024 10:00 AM ELASTIC ASSEMBLER Temperature 36 ??C (96.8 ??F) 09/01/2024 9:45 AM ELASTIC ASSEMBLER Respiratory Rate 18 09/01/2024 10:00 AM ELASTIC ASSEMBLER Oxygen Saturation 94% 09/01/2024 10:00 AM ELASTIC ASSEMBLER Inhaled Oxygen Concentration - - Weight 131.5 kg (290 lb) 09/01/2024 7:05 AM ELASTIC ASSEMBLER Height 172.7 cm (5' 8 ) 09/01/2024 7:05 AM ELASTIC ASSEMBLER Body Mass Index 44.09 09/01/2024 7:05 AM ELASTIC ASSEMBLER documented in this encounter Functional Status * Are you deaf or do you have serious difficulty hearing Answer Date of Assessment Author Status No 09/01/2024 7:04 AM ELASTIC ASSEMBLER Keyla Lopez RN Active * Are you blind or do you have serious difficulty seeing, even when wearing glasses? Answer Date of Assessment Author Status No 09/01/2024 7:04 AM ELASTIC ASSEMBLER Keyla Lopez RN Active * Do you have serious difficulty walking or climbing stairs? Answer Date of Assessment Author Status Yes 03/31/2024 11:22 PM CDT Desmond Ortega RN Active * Do you have difficulty dressing or bathing? Answer Date of Assessment Author Status No 03/31/2024 11:22 PM Desmond Merritt RN Active * Because of a physical, mental, or emotional condition, do you have difficulty doing errands alone such as visiting a doctor's office or shopping? Answer Date of Assessment Author Status No 03/31/2024 11:22 PM Desmond Merritt RN Active documented as of this encounter Mental Status * Because of a physical, mental, or emotional condition, do you have serious difficulty concentrating, remembering, or making decisions? Answer Entry Date Author Status No 03/31/2024 11:22 PM Desmond Merritt RN Active documented in this encounter Discharge Instructions * Attachments The following attachments cannot be sent through Care Everywhere. * General Anesthesia Discharge Instructions (Belizean) * Carpal Tunnel Release (Belizean) * How to Prevent Surgical Site Infections (Belizean) documented in this encounter Medications at Time of Discharge albuterol sulfate HFA 108 (90 Base) MCG/ACT inhaler Inhale 2 puffs into the lungs every 6 (six) hours as needed. 11/24/2023 BREO ELLIPTA 200-25 MCG/ACT inhaler Inhale 1 puff into the lungs every morning. 12/01/2023 busPIRone (BUSPAR) 15 MG tablet Take 20 mg by mouth 2 (two) times a day. clonazePAM (KLONOPIN) 1 MG tablet Take 1 tablet (1 mg total) by mouth 2 (two) times a day. 05/22/2023 clopidogrel 75 MG tablet Take 1 tablet (75 mg total) by mouth daily. Hold x 4 days per surgeon. Last dose: 07/27. 11/13/2021 ezetimibe 10 MG tablet Take 1 tablet (10 mg total) by mouth nightly at bedtime. 06/18/2020 fluticasone propionate (FLONASE) 50 MCG/ACT nasal spray 2 sprays by Each Nostril route daily. furosemide (LASIX) 40 MG tablet Take 1 tablet (40 mg total) by mouth every morning. Will hold DOS 12/18/2022 levothyroxine (SYNTHROID) 112 MCG tablet Take 1 tablet (112 mcg total) by mouth every morning. 05/27/2023 Magnesium 400 MG Cap Take 1 capsule by mouth nightly at bedtime. melatonin 5 MG tablet Take 2 tablets (10 mg total) by mouth nightly at bedtime. mirtazapine (REMERON) 15 MG tablet Take 1 tablet (15 mg total) by mouth nightly at bedtime. 08/29/2024 nortriptyline 25 MG capsule Take 1 capsule (25 mg total) by mouth nightly at bedtime. 11/15/2013 oxyCODONE immediate release (ROXICODONE) 5 MG immediate release tablet Take 1 tablet (5 mg total) by mouth every 4 (four) hours as needed for Pain. 08/26/2024 pantoprazole EC 40 MG tablet Take 1 tablet (40 mg total) by mouth every morning. 06/29/2020 potassium chloride CR (KLOR-CON M) 20 MEQ tablet Take 1 tablet (20 mEq total) by mouth every evening. 08/10/2023 pregabalin (LYRICA) 150 MG capsule Take 1 capsule (150 mg total) by mouth 2 (two) times daily. 2 in AM, 1 at bedtime. 06/05/2022 propranolol LA (INDERAL LA) 120 MG 24 hr capsule Take 1 capsule (120 mg total) by mouth nightly at bedtime. rOPINIRole 2 MG tablet Take 2 tablets (4 mg total) by mouth nightly at bedtime. 01/20/2020 rosuvastatin 20 MG tablet Take 1 tablet (20 mg total) by mouth nightly at bedtime. at bedtime. 10/18/2020 Semaglutide (OZEMPIC, 0.25 OR 0.5 MG/DOSE, SC) Inject 1 mg into the skin weekly. Hold x 7 days. Last dose 08/20 to hold until after surgery 06/20/2021 spironolactone (ALDACTONE) 25 MG tablet Take 1 tablet (25 mg total) by mouth every morning. Hold DOS 12/22/2023 venlafaxine XR 150 MG 24 hr capsule Take 1 capsule (150 mg total) by mouth every morning. 05/24/2020 vitamin B-2 (RIBOFLAVIN) 100 MG tablet Take 4 tablets (400 mg total) by mouth every evening. documented as of this encounter H&P Notes * Jose Roberto Mckeon MD - 09/01/2024 8:10 AM CST Ortho Resident H&P Note CC: left carpal and cubital tunnel HPI: Gilma Mills is a 74-year-old female who presents to S for L carpal and cubital syndrome. Patient has been having symptoms of numbness and tingling in all his digits with physical exam findings demonstrative of carpal and cubital tunnel syndrome. She has a hx of R carpal tunnel release and Rulnar nerve in situ release previously. She reports no changes in her medical history and denies any CP, SOB, fever, chills. ROS: 12 point review of systems negative except for that stated above in HPI PMH: Past Medical History: Diagnosis Date Acid reflux Allergic rhinitis Arthritis Asthma (HHS/HCC) Carpal tunnel syndrome Coronary artery disease COVID-19 vaccine series completed see media Cubital tunnel syndrome Depression with anxiety Disease of thyroid gland Fibromyalgia History of blood transfusion Hyperlipidemia Hypertension Hypothyroidism, unspecified Migraines Sleep apnea, unspecified Stroke (CMS/HCC HHS/HCC) Pt had no symptoms 4 years ago. Vertigo PSH: Past Surgical History: Procedure Laterality Date ARTHROSCOPY SHOULDER ROTATOR CUFF REPAIR Right BACK SURGERY CARPAL TUNNEL RELEASE Right 08/04/2024 FOOT SURGERY Right HC CATHETER ABLATION NON-CARDIAC ENDO T1 HYSTERECTOMY JOINT REPLACEMENT Bilateral shouldera, TKR & THR OTHER PROCEDURE Left 09/11/2022 09/11/22 RIGHT knee hamstring tenotomy) RELEASE HAND/FINGER TENDON Left SPINAL FUSION 11/18/2021 L3-S1 fusion TOTAL HIP ARTHROPLASTY Left 08/13/2020 TOTAL HIP ARTHROPLASTY Right 11/19/2020 TOTAL KNEE ARTHROPLASTY Bilateral TOTAL SHOULDER ARTHROPLASTY Right 06/24/2021 right reverse total shoulder arthroplasty using a DePuy delta extend 12mm stem with a size 1 eccentric body and a 38 mm +2 glenosphere with a +9 metal spacer with a + 3 polyethylene spacer SH: Social History Socioeconomic History Marital status: Spouse name: Not on file Number of children: Not on file Years of education: Not on file Highest education level: Not on file Occupational History Not on file Tobacco Use Smoking status: Never Smokeless tobacco: Never Vaping Use Vaping status: Never Used Substance and Sexual Activity Alcohol use: Not Currently Drug use: Yes Types: Benzodiazepines Sexual activity: Not on file Other Topics Concern Not on file Social History Narrative Not on file Social Drivers of Health Financial Resource Strain: Low Risk (03/31/2024) Overall Financial Resource Strain (CARDIA) Difficulty of Paying Living Expenses: Not hard at all Food Insecurity: No Food Insecurity (03/31/2024) Hunger Vital Sign Worried About Running Out of Food in the Last Year: Never true Ran Out of Food in the Last Year: Never true Transportation Needs: No Transportation Needs (03/31/2024) PRAPARE - Transportation Lack of Transportation (Medical): No Lack of Transportation (Non-Medical): No Physical Activity: Not on file Stress: Not on file Social Connections: Not on file Intimate Partner Violence: Not At Risk (03/31/2024) Humiliation, Afraid, Rape, and Kick questionnaire Fear of Current or Ex-Partner: No Emotionally Abused: No Physically Abused: No Sexually Abused: No Housing Stability: Low Risk (03/31/2024) Housing Stability Vital Sign Unable to Pay for Housing in the Last Year: No Number of Times Moved in the Last Year: 1 Homeless in the Last Year: No FMH: Family History Problem Relation Name Age of Onset Cancer Mother Breast/Liver COPD Father Cancer Sister No Known Problems Sister Multiple Sclerosis Sister Other (histoplasmosi) Brother Physical Exam: GEN: NAD HEENT: Normocephalic HEART: RRR upon auscultation RESP: Airway patent. Clear breath sounds NEURO: AOX3 PSYCH: Appropriate mood and affect MSK: LUE: Skin intact. No obvious deformity. SILT med, rad, ulnar. Ulnar nerve does not sublux upon elbow ROM. Positive modified carpal compression sign. Positive tinel sign at carpal tunnel and elbow. Motor intact AIN, PIN, ulnar N ASSESSMENT/PLAN: Gilma Mills is a 74-year-old female presenting for L carpal tunnel release and in situ ulnar N release by Dr Vargas. Plan for DC postop Dispo: OR today Discussed with Dr. Vargas who agrees with above assessment and plan unless otherwise stated in adendum. Jose Roberto Mckeon MD Consults Cosigned by An Vargas MD at 09/01/2024 10:02 AM ELASTIC ASSEMBLER TIC ASSEMBLER TIC ASSEMBLER Associated attestation - An Vargas MD - 09/01/2024 10:02 AM ELASTIC ASSEMBLER Teaching Physician - I, AN VARGAS MD, performed a History and Physical examination of the patient and discussed the management with the resident. I reviewed the Resident's note and agreewith the findings and plan of care, except as I have documented. Teaching physician supervised resident in person. documented in this encounter OR Notes * Brief Op Note - An Vargas MD - 09/01/2024 9:55 AM CST [facility] Brief Op HSHSRELEASE CARPAL TUNNEL, IN SITU ULNAR NERVE RELEASE Procedure Note Gilma K Lina 09/01/2024 0830 Procedure(s) (LRB): RELEASE CARPAL TUNNEL (Left) IN SITU ULNAR NERVE RELEASE (Left) Surgeon(s): MD Jose Roberto Krause MD Sewage Plant Attendant: Private Obgyn Hospitalist Physician: Toni Fenton RN Anesthesia: General Pre-Op Diagnosis: CARPAL AND CUBITAL TUNNEL SYNDROME Post-Op Diagnosis: Same Findings: see op note Estimated Blood Loss: Minimal Specimens: None AN VARGAS MD Date: 09/01/2024 Time: 9:55 AM TIC ASSEMBLER documented in this encounter Plan of Treatment Not on file documented as of this encounter Goals Goal Patient Goal Type Associated Problems Recent Progress Patient-Stated? Author Safety - able to safely ambulate at home; tripping hazards removed from the home General Krystal Wahl, RN Note: Pt wants to go home safely with new walker. Pt made aware that therapy will work with her on safety. documented as of this encounter Procedures Procedure Name Priority Date/Time Associated Diagnosis Comments RELEASE ULNAR NERVE 09/01/2024 8 :15 AM ELASTIC ASSEMBLER CARPAL AND CUBITAL TUNNEL SYNDROME Case Notes HAND TABLE REVISE MEDIAN N/CARPAL TUNNEL SURG 09/01/2024 8:15 AM ELASTIC ASSEMBLER CARPAL AND CUBITAL TUNNEL SYNDROME Case Notes HAND TABLE documented in this encounter Visit Diagnoses Not on filedocumented in this encounter Administered Medications Inactive Administered Medications - up to 3 most recent administrations Medication Order MAR Action Action Date Dose Rate Site BUpivacaine-EPINEPHrin e (PF) 0.25% -[id number] injection As needed, Starting on Ermelinda 09/01/24 at 0922, Until Ermelinda 09/01/24 at 0942, Intra-Op Given 09/01/2024 9:22 AM ELASTIC ASSEMBLER 30 mLs Operative Site chlorhexidine (PERIDEX) 0.12 % solution 15 mL 15 mL, Mouth/Throat, Once, 1 dose, On Ermelinda 09/01/24 at 0715, Patient to perform oral care first. Swish/gargle in mouth for 30 seconds, and then discard prior to going to surgery. If ventilated use saturated swab to clean oral cavity., Pre-Op Given 09/01/2024 7:25 AM ELASTIC ASSEMBLER 15 mLs HYDROcodone-acetaminop hen (NORCO) 5-325 MG tablet 1 tablet 1 tablet, Oral, Once as needed, Mild pain (Scale 1 - 3), 1 dose, Starting on Ermelinda 09/01/24 at 1005, Until Ermelinda 09/01/24 at 1008, Do not administer if patient is overly sedated, SpO2 less than 90%, or Respiratory Rate less than 12., PACU Given During Downtime 09/01/2024 10:08 AM ELASTIC ASSEMBLER 1 tablet documented in this encounter Active and Recently Administered Medications Times are shown in ELASTIC ASSEMBLER. Scheduled Medication Order 08/30/2024 08/31/2024 09/01/2024 ceFAZolin (ANCEF) 3 g in sodium chloride 0.9 % 100 mL IVPB (COMPLETED) 3 g, Intravenous, at 400 mL/hr, Once, 1 dose, On Ermelinda 09/01/24 at 0715, Pre-op, Pre-Op 0846 (New Bag - Prov ider: Laura Dey CRNA)0901 (Infusion Stop Time - Provider: Laura Dey CRNA) chlorhexidine (PERIDEX) 0.12 % solution 15 mL (COMPLETED) 15 mL, Mouth/Throat, Once, 1 dose, On Ermelinda 09/01/24 at 0715, Patient to perform oral care first. Swish/gargle in mouth for 30 seconds, and then discard prior to going to surgery. If ventilated use saturated swab to clean oral cavity., Pre-Op 0725 (Given - Provid er: Lakeisha Lopez RN) PRN Medication Order 08/30/2024 08/31/2024 09/01/2024 BUpivacaine-EPINEPHrine (PF) 0.25% -[id number] injection (CANCELED) As needed, Starting on Ermelinda 09/01/24 at 0922, Until Ermelinda 09/01/24 at 0942, Intra-Op 0922 (Given - Provid er: An Vargas MD) HYDROcodone-acetaminophen (NORCO) 5-325 MG tablet 1 tablet (COMPLETED) 1 tablet, Oral, Once as needed, Mild pain (Scale 1 - 3), 1 dose, Starting on Ermelinda 09/01/24 at 1005, Until Ermelinda 09/01/24 at 1008, Do not administer if patient is overly sedated, SpO2 less than 90%, or Respiratory Rate less than 12., PACU 1008 (Given During D owntime - Provider: Marzena Grajeda RN) documented in this encounter Care Teams Title Checker Relationship Specialty Start Date End Date Sebastien Sequeira MD [address] [place] [address] PCP - General INTERNAL MEDICINE 08/02/20 documented as of this encounter
--- OUTSIDE RECORDS SUMMARY | 2024-09-13 06:31 | XMS_ITS | Encounter Summary ---
Author Organization [facility] Address [address] [place] [address]. [place] [address] [place] [address] Care Team Providers Care Tester Sound Name Role Phone Sebastien Sequeira MD Primary Care Provider [phone] Encounter Details Date Type Department Care Team (Late st Contact Info) Description 12/10/2023 VideoSurf Message Enc [facility] [address], [facility] [address] [place] [address] Adele Garcia, [facility] [address] [facility] [place] [address] Visit Follow Up Social History Tobacco Use [...] on filedocumented in this encounter Care Teams Tester Sound Relationship Specialty Start Date End Date Sebastien Sequeira MD [address] [place] [address] PCP - General INTERNAL MEDICINE 08/02/20 documented as of this encounter
--- OUTSIDE RECORDS SUMMARY | 2024-09-13 06:31 | XMS_ITS | Encounter Summary ---
Author Organization [facility] Address [facility] access hospital6 [facility] [place] [address] [place] [address] Care Team Providers Care Manager Laundry Name Role Phone Sebastien Sequeira MD Primary Care Provider [phone] Reason for Visit * Auth/Cert (Routine) Specialty Diagnoses / Procedures Referred By Contdennis t Referred To Contact Diagnoses CARPAL AND CUBITAL TUNNEL SYNDROME Procedures REVISE MEDIAN N/CARPAL TUNNEL SURG REVISE ULNAR NERVE AT ELBOW REVISE MEDIAN N/CARPAL TUNNEL SURG RELEASE CARPAL TUNNEL IN SITU ULNAR NERVE RELEASE An Avery MD [address] [place] [address] Phone: tel: fax: Referral ID Status Reason Start Date Expiration Date Visits Re quested Visits Authorized [id number] 1 1 Encounter Details Date Type Department Care Team (Late st Contact Info) Description 08/04/2024 8:30 AM TYPE CASTING MACHINE OPERATOR - 08/04/2024 10:13 AM TYPE CASTING MACHINE OPERATOR Surgery [facility] [place] [address] [place] [address] An Avery MD [address] [place] [id number] RELEASE CARPAL TUNNEL Surgery Details Date/Time Status Location OR Service Patient Class Case Class Case Type Trauma Case? 08/04/2024 8:30 AM Posted [facility] OR [facility] 14 Orthopedics Short Stay/Outpa tient Surgery E - Elective No Panel 1 Procedure LRB Anes Op Region Wound Class Comments RELEASE CARPAL TUNNEL Right General Hand Clean IN SITU ULNAR NERVE RELEASE Right General Arm Cl [place] Surgeon Surgeon Role Service Panel An Avery MD Primary Orthopedics 1 Jose Roberto Mckeon MD Resident - Assisting Orthopedics 1 Case Notes HAND TABLE documented in this encounter Social History Tobacco Use Types Packs/Day Years Used Date Smoking Tobacco: Never Smokeless Tobacco: Never Alcohol Use Standard Drinks/Week Comments Not Currently 0 (1 standard drink = 0.6 oz pur e alcohol) [facility] Utilities Answer Date Recorded In the past 12 months has e [employer], gas, oil, or water [employer] threatened to shut off services in your [...] in the past 12 m [facility], were you homeless or living in a long-term (including now)? No 03/31/2024 Comments No Sex and Gender Information Value Date Recorded Sex Assigned at Not on file Legal Sex Female 2:03 AM CDT Gender Identity Not on file Sexual Orientation Not on file documented as of this encounter Last Filed Vital Signs Vital Sign Reading Time Taken Comments Blood Pressure 103/58 08/04/2024 10:10 AM TYPE CASTING MACHINE OPERATOR Pulse 70 08/04/2024 10:10 AM TYPE CASTING MACHINE OPERATOR Temperature 36 ??C (96.8 ??F) 08/04/2024 9:46 AM TYPE CASTING MACHINE OPERATOR Respiratory Rate 17 08/04/2024 10:10 AM TYPE CASTING MACHINE OPERATOR Oxygen Saturation 96% 08/04/2024 10:10 AM TYPE CASTING MACHINE OPERATOR Inhaled Oxygen Concentration - - Weight 123.8 kg (273 lb) 08/04/2024 7:14 AM TYPE CASTING MACHINE OPERATOR Height 172.7 cm (5' 8 ) 08/04/2024 7:14 AM TYPE CASTING MACHINE OPERATOR Body Mass Index 41.51 08/04/2024 7:14 AM TYPE CASTING MACHINE OPERATOR documented in this encounter Functional Status * Are you deaf or do you have serious difficulty hearing Answer Date of Assessment Author Status No 08/04/2024 6:57 AM TYPE CASTING MACHINE OPERATOR Rai Holt RN Active * Are you blind or do you have serious difficulty seeing, even when wearing glasses? Answer Date of Assessment Author Status No 08/04/2024 6:57 AM TYPE CASTING MACHINE OPERATOR Rai Holt RN Active * Do you have serious difficulty walking or climbing stairs? Answer Date of Assessment Author Status Yes 03/31/2024 11:22 PM CDT Desmond Ortega RN Active * Do you have difficulty dressing or bathing? Answer Date of Assessment Author Status No 03/31/2024 11:22 PM CANDELARIOT Desmond Ortega RN Active * Because of a physical, [...] Date Author Status No 03/31/2024 11:22 PM CDDesmond Ann RN Active documented in this encounter Discharge Instructions * Discharge Instructions* Krystal Scott RN - 08/04/2024 10:37 AM TYPE CASTING MACHINE OPERATOR You had Hydrocodone-acetaminophen at 10:15 am.... CASTING MACHINE OPERATOR * Attachments The following attachments cannot be sent through Care Everywhere. * General Anesthesia Discharge Instructions (Tunisian) * Carpal tunnel surgery ??? Discharge instructions (Tunisian) * How to Prevent Surgical Site Infections (Tunisian) * ARM SLING INSTRUCTIONS (GRENADIAN) documented in this encounter Medications at Time [...] Notes * Jose Roberto Mckeon MD - 08/04/2024 8:19 AM CST HISTORY AND PHYSICAL INTERVAL NOTE: I have reviewed Gilma Mills History & Physical which was performed within the past 30 days. After examining Gilma Mills, no change has occurred in the patient's condition since the H&P was completed. Informed Consent Discussion: Potential benefits, risks, and side effects of the patient's procedure/surgery; the likelihood of the patient achieving his or her goals; and any potential problems that might occur during recuperation were discussed with the patient/family/personal technical services representative. Reasonable alternatives to the patient's proposed procedure/surgery including benefits, risks, and side effects related to the alternatives and the risks related to not receiving the proposed care were also discussed with the patient/family/personal technical services representative. Questions were answered and the patient/family/personal technical services representative verbalized understanding and desires to proceed. Cosigned by An Avery MD at 08/04/2024 10:59 AM TYPE CASTING MACHINE OPERATOR CASTING MACHINE OPERATOR CASTING MACHINE OPERATOR Associated attestation - An Avery MD - 08/04/2024 10:59 AM TYPE CASTING MACHINE OPERATOR Teaching Physician - IAN MD, performed a History and Physical examination of the patient and discussed the management with the resident. I reviewed the Resident's note and agreewith the findings and plan of care, except as I have documented. Teaching physician supervised resident in person. Source Note - Scanned, [facility] - 07/28/2024 12:01 AM TYPE CASTING MACHINE OPERATOR documented in this encounter OR Notes * Op Note - An Avery MD - 08/04/2024 11:05 AM CST OPERATIVE REPORT PATIENT: Gilma Mills PRE-OP DIAGNOSIS: Right carpal tunnel syndrome and cubital tunnel syndrome POST-OP DIAGNOSIS: Right carpal tunnel syndrome and cubital tunnel syndrome PROCEDURE PERFORMED: Right carpal tunnel release and in-situ ulnar nerve release SURGEON: An Avery MD HAMMER RUNNER: DELICIA Perez, Jesus Mckeon MD ANESTHESIA: General EBL: Less than 5cc REASON FOR PROCEDURE: Gilma Mills is a 74-year-old with persistent numbness and tingling of her hand consistent with carpal and cubital tunnel syndrome. Nerve studies have confirmed carpal and cubital tunnel syndrome. Risks and benefits of release were discussed including risks of infection, injury to nerves and vessels, incomplete resolution of symptoms, pillar pain, incisional pain, subluxation of the ulnar nerve, and need for further surgery among others. She voiced understanding and agreesto proceed. Consent was obtained. PROCEDURE: In the preoperative area the correct site was confirmed and signed. She was then broughtinto the operating room. All bony prominences were well padded and double-checked. Preoperative antibiotics were given. General anesthesia was administered. The right arm was then prepped and draped in sterile fashion with Hiboscarns. Again time-out was called and verified. The arm was exsanguinatedwith an Esmarch and the tourniquet was inflated to 250mmHg. The entire procedure was performed under 3.5 Loupe magnification. A longitudinal incision was made in line with the ring finger over the transverse carpal ligament. Retractors were placed. The palmar fascia was then identified and incised. The transverse carpal ligament was then identified and incised. The contents within the carpal tunnel were followed out distally to the fat pad. We then followed the contents proximally and I released the proximal transverse carpal ligament. Careful blunt dissection was performed above and below the distal forearm fascia. It was split with blunt tipped scissors under direct vision. The nerve was completely released and blunt spreading of both ends ensured complete release. No other constricting bands were identified. The re were no masses within the carpal tunnel. Turning our attention to the cubital tunnel, a longitudinal incision was made along the medial sideof the elbow just posterior to the medial epicondyle. Dissection was carried down sharply just through skin. Careful scissor dissection brought us down to the fascia covering the ulnar nerve. Crossing skin nerves were identified and protected throughout the rest of the case. The ulnar nerve was identified and the fascia was incised proximal to the medial epicondyle. The ulnar nerve was then followed distally and Harris fascia was incised staying posterior along the fascia. I then followed the nerve out into the flexor carpi ulnaris. The superficial fascia over the muscle was incised. Blunt dissection brought us down through the muscle and we had good visualization of the deep fascia over the nerve. I then incised that fascia with blunt tipped scissors. We dissected out until there were no further constricting bands and the nerve had branched into multiple muscle branches. The nerve wasnow nicely released. The elbow was taken through a full range of motion and the nerve stayed nicelystable within the groove. The skin edges of both incisions were infiltrated with 0.5% Marcaine with epinephrine. The tourniquet was then let down and hemostasis was obtained with electrocautery. The wounds were irrigated. Themedial elbow was then closed with 3-0 Vicryl undied stitch and then a 4-0 stratofix subcuticularly.The carpal tunnel incision was closed with 4-0 nylon interrupted sutures. The patient was placed into a sterile compressive dressing. The patient was awoken from anesthesia and taken to the recovery room in stable condition. Needle and sponge count was correct at the end of the case CASTING MACHINE OPERATOR * Brief Op Note - An Avery MD - 08/04/2024 9:27 AM CST [facility] Brief Op HSHSRELEASE CARPAL TUNNEL, IN SITU ULNAR NERVE RELEASE Procedure Note Gilma Mills 08/04/2024 0830 Procedure(s) (LRB): RELEASE CARPAL TUNNEL (Right) IN SITU ULNAR NERVE RELEASE (Right) Surgeon(s): MD Jose Roberto Krause MD Head Filter Press Tender: Private Building Repair Maintenance Supervisor: Toni Fenton RN Anesthesia: General Pre-Op Diagnosis: CARPAL AND CUBITAL TUNNEL SYNDROME Post-Op Diagnosis: Same Findings: see dictated op note Estimated Blood Loss: Minimal Specimens: None AN AVERY MD Date: 08/04/2024 Time: 9:27 AM CASTING MACHINE OPERATOR documented in this encounter Plan of Treatment [...] Date/Time Associated Diagnosis Comments RELEASE ULNAR NERVE 08/04/2024 8 :13 AM TYPE CASTING MACHINE OPERATOR CARPAL AND CUBITAL TUNNEL SYNDROME Case Notes HAND TABLE REVISE MEDIAN N/CARPAL TUNNEL SURG 08/04/2024 8:13 AM TYPE CASTING MACHINE OPERATOR CARPAL AND CUBITAL TUNNEL SYNDROME Case Notes HAND TABLE documented in this encounter Visit Diagnoses Not on filedocumented in this encounter Administered Medications Inactive Administered Medications - up to 3 most recent administrations Medication Order MAR Action Action Date Dose Rate Site BUpivacaine-EPINEPHrine (PF) 0.25% -1:[id number] injection As needed, Starting on Ermelinda 08/04/24 at 0921, Until Ermelinda 08/04/24 at 0941, Intra-Op Given 08/04/2024 9:21 AM TYPE CASTING MACHINE OPERATOR 30 mLs Operative Site HYDROcodone-acetaminophen (NORCO) 5-325 MG tablet 1 tablet 1 tablet, Oral, Once as needed, Mild pain (Scale 1 - 3), 1 dose, Starting on Ermelinda 08/04/24 at 0951, Until Ermelinda 08/04/24 at 1016, Do not administer if patient is overly sedated, SpO2 less than 90%, or Respiratory Rate less than 12., PACU Given 08/04/2024 10:16 AM TYPE CASTING MACHINE OPERATOR 1 tablet documented in this encounter Active and Recently Administered Medications Times are shown in TYPE CASTING MACHINE OPERATOR. Scheduled Medication Order 08/02/2024 08/03/2024 08/04/2024 ceFAZolin (ANCEF) 3 g in sodium chloride 0.9 % 100 mL IVPB (COMPLETED) 3 g, Intravenous, at 400 mL/hr, Once, 1 dose, On Ermelinda 08/04/24 at 0715, Pre-op, Pre-Op 0842 (New Bag - Prov ider: Dayami Núñez CRNA)0857 (Infusion Stop Time - Provider: Dayami Núñez CRNA) PRN Medication Order 08/02/2024 08/03/2024 08/04/2024 BUpivacaine-EPINEPHrine (PF) 0.25% -1:[id number] injection (CANCELED) As needed, Starting on Ermelinda 08/04/24 at 0921, Until Ermelinda 08/04/24 at 0941, Intra-Op 0921 (Given - Provid er: An Avery MD) HYDROcodone-acetaminophen (NORCO) 5-325 MG tablet 1 tablet (COMPLETED) 1 tablet, Oral, Once as needed, Mild pain (Scale 1 - 3), 1 dose, Starting on Ermelinda 08/04/24 at 0951, Until Ermelinda 08/04/24 at 1016, Do not administer if patient is overly sedated, SpO2 less than 90%, or Respiratory Rate less than 12., PACU 1016 (Given - Provid er: Yumi Church RN) documented in this encounter Care Teams Manager Laundry Relationship Specialty Start Date End Date Sebastien Sequeira MD [address] [place] [address] PCP - General INTERNAL MEDICINE 08/02/20 documented as of this encounter
--- OUTSIDE RECORDS SUMMARY | 2024-09-13 06:31 | XMS_ITS | Encounter Summary ---
Author Organization [facility] Address [address] [place] [address]. [place] [address] [place] [address] Care Team Providers Care Radiation Therapist Name Role Phone Sebastien Sequeira MD Primary Care Provider [phone] Reason for Visit * Reason Onset Date Comments Referral 12/23/2023 Encounter Details Date Type Department Care Team (Late st Contact Info) Description 12/23/2023 Telephone [facility] [id number] [place] [address] Adele Garcia, [facility]- [address] [place] [address] Referral Social History Tobacco Use Types Packs/Day Years [...] AM CDT Vania Degroot RN Active * Because of a physical, mental, or emotional condition, do you have difficulty doing errands alone such as visiting a doctor's office or shopping? Answer Date of Assessment Author Status No 06/24/2021 11:17 AM CDT Vania Degroot RN Active documented as of this encounter Mental Status * Because of a physical, mental, or emotional condition, do you have serious difficulty concentrating, remembering, or making decisions? Answer Entry Date Author Status No 06/24/2021 11:17 AM CDT Vania Degroot RN Active documented in this encounter Progress Notes * Jeannette Hart - 12/23/2023 2:57 PM CDT Patient has been notified of her scheduled appointment with [facility] on 04/29/2024 @ 10:[address] Avery. documented in this encounter Plan of Treatment [...] on filedocumented in this encounter Care Teams Radiation Therapist Relationship Specialty Start Date End Date Sebastien Sequeira MD [address] [place] [address] PCP - General INTERNAL MEDICINE 08/02/20 documented as of this encounter
--- OUTSIDE RECORDS SUMMARY | 2024-09-13 06:31 | XMS_ITS | Encounter Summary ---
Author Organization [facility] Address [facility] [place] [address] [place] [address] Care Team Providers Care Distribution Center Associate Name Role Phone Sebastien Sequeira MD Primary Care Provider [phone] Encounter Details Date Type Department Care Team (Latest Contact Info) Description 03/25/2024 Travel Social History Tobacco Use Types Packs/Day [...] on filedocumented in this encounter Care Teams Distribution Center Associate Relationship Specialty Start Date End Date Sebastien Sequeira MD [address] [place] [address] PCP - General INTERNAL MEDICINE 08/02/20 documented as of this encounter
--- OUTSIDE RECORDS SUMMARY | 2024-09-13 06:31 | XMS_ITS | Encounter Summary ---
Author Organization [facility] Address [facility] [place] [address] [place] [address] Care Team Providers Care Hold Worker Name Role Phone Sebastien Sequeira MD Primary Care Provider [phone] Reason for Visit * Auth/Cert (Routine) Specialty Diagnoses / Procedures Referred By Contac t Referred To Contact Diagnoses CARPAL AND CUBITAL TUNNEL SYNDROME Procedures REVISE MEDIAN N/CARPAL TUNNEL SURG REVISE ULNAR NERVE AT ELBOW REVISE MEDIAN N/CARPAL TUNNEL SURG RELEASE CARPAL TUNNEL IN SITU ULNAR NERVE RELEASE Cameron Avery MD [address] [place] [address] Phone: tel: fax: Referral ID Status Reason Start Date Expiration Date Visits Re quested Visits Authorized [id number] 1 1 Encounter Details Date Type Department Care Team (Late st Contact Info) Description 08/04/2024 8:28 AM QUILTING MACHINE OPERATOR Anesthesia Event [facility] [address] [place] [address] Senthil North MD [address] [place] [address] [place] [address] Marine Hines RN Anesthesia Record Procedure Summary Procedure Name Responsible Anesthesiologist Anesthesia Start Time Anesthesia Stop Time RELEASE CARPAL TUNNEL (Right: Hand) Senthil North MD 08/04/24 0828 08/04/24 0946 Events Date Time Event Comment 08/04/2024 0644 0644 AN Anesthesia Prepped 0812 AN CAKE WRAPPER Prepped 0828 An Start Patient ID and consent checked and patient reassessed. 0828 An Start Data 0830 Preoxygenation 0832 An Induction The patient was reevaluated immediately before moderate or deep sedation use and before anesthesia induction. 0837 An Intubation 0839 Anesthesia Ready 0922 Quick Note Local by surgeo n 0940 An Extubation 0940 Face Mask Applied 0944 an stop data 0946 An Stop 0946 Post Anesthetic Care Handoff I completed my handoff to the receiving nurse during which we: 1. Identified the patient 2. Identified the responsible provider 3. Reviewed the pertinent medical history 4. Discussed the surgical course 5. Reviewed intra-op anesthesia management and issues during anesthesia 6. Set expectations for post-procedure period 7. Allowed opportunity for questions and acknowledgement of understanding. Meds Name Total midazolam 2 mg/2 mL injection 2 mg fentaNYL (SUBLIMAZE) 100 mcg/2 mL inject ion 100 mcg lidocaine (XYLOCAINE) 1% injection 10 mL propofol (DIPRIVAN) 200 mg/20 mL injecti on 225 mg rocuronium (ZEMURON) 50 mg/5 mL injectio n 50 mg phenylephrine (JENNIFFER-SYNEPHRINE) 1 mg/10 m L IV syringe 150 mcg ceFAZolin (ANCEF) 3 g in sodium chloride 0.9 % 100 mL IVPB 3 g sugammadex (BRIDION) 500 mg/5 mL injecti on 300 mg dexamethasone (DECADRON) injection 4 mg ondansetron (ZOFRAN) 4 mg/2 mL injection 4 mg sodium chloride 0.9% infusion 250 mL * Agents Name O2 Air Inspired Isoflurane Isoflurane Ancillary O2 * Blood No blood administrations on file. Lines, Drains, and Airways Type Details Placement Removal Peripheral IV Placement Date: 07/16 10/07; Placement Time: 0715; Placed Outside of This Facility?: No; Size: 20 G; Orientation: Left, Posterior; Location: Forearm; Site Prep: Chlorhexidine; Local Anesthetic: None; Inserted By: Lara Godinez RN; Insertion attempts: 1; Ultrasound-guided Placement?: No; Patient Tolerance: Tolerated well; Removal Date: 08/04/24; Removal Time: 1127; Removal Reason: Patient Discharged 08/04/24 0715 by Rai Holt RN 08/04/24 1127 by Krystal Scott, RN ETT Placement Date: 07/16 10/07; Placement Time: 0837; Placed Outside of This Facility?:No; Mask Ventilate: Easy; Size (mm) : 7; Endotracheal: Oral, Stylet used; Blade Type: MAC 3; Placement Method: Direct Laryngoscopy (blade type in comment); View Grade: 1; Viewable Anatomy: Epiglottis, Arytenoid, Vocal cords; Insertion Attempts: 1; Placement Verified By: Capnography, Auscultation, Chest Rise; Placed By: CAKE WRAPPER; Extubation Assessment: Suctioned, Alert, Tolerated well, Patient spontaneously breathing, Strong hand grasp, Moves all extremities strongly, Lifts et holds head > 5 seconds, Deep breathes w/equal chest movements, Able to swallow, Atraumatic; Removal Date: 08/04/24; Removal Time: 0940; Removal Person: CAKE WRAPPER; Removal Reason: End of Case 08/04/24 0837 by Dayami Núñez CRNA 08/04/24 0940 by Dayami Núñez CRNA Surgical/Incision 08/04/24; 0900; Surg ical Wound; Elbow; Left; DRESSING XEROFORM 1 X 8, SPONGE SUPER FLUFF 6IN X 6.75IN, DRESSING WEBRIL 4IN UNSTERILE, DRESSING MEDLINE MARISOL WRAP 4; sling; 08/04/24; 1327 08/04/24 0900 by Jason Regalado RN 08/04/24 1327 by Automatic Discharge Provider documented in this encounter Social History Tobacco Use Types Packs/Day Years Used Date Smoking Tobacco: Never Smokeless Tobacco: Never Alcohol Use Standard Drinks/Week Comments Not Currently 0 (1 standard drink = 0.6 oz pur e alcohol) [facility] Utilities Answer Date Recorded In the past 12 months has [employer], gas, oil, or water [employer] threatened to shut off services in your [...] any time in the past [address] [facility], were you homeless or living in a fci (including now)? No 03/31/2024 Comments No Sex and Gender Information Value Date Recorded Sex Assigned at Not on file Legal Sex Female 2:03 AM CDT Gender Identity Not on file Sexual Orientation Not on file documented as of this encounter Functional Status * Are you deaf or do you have serious difficulty hearing Answer Date of Assessment Author Status Yes 03/31/2024 11:22 PM CDT Desmond Ortega RN Active * Are you blind or do you have serious difficulty seeing, even when wearing glasses? Answer Date of Assessment Author Status Yes 03/31/2024 11:22 PM Desmond Merritt RN Active * Do you have serious difficulty walking or climbing stairs? Answer Date of Assessment Author Status Yes 03/31/2024 11:22 PM Desmond Merritt RN Active * Do you have difficulty [...] Merritt RN Active documented in this encounter Progress Notes * Dayami Núñez CRNA - 08/04/2024 12:33 PM CST Addendum created 08/04/24 1233 by Dayami Núñez CRNA Flowsheet accepted TING MACHINE OPERATOR documented in this encounter OR Notes * Anesthesia Postprocedure Evaluation - Senthil North MD - 08/04/2024 10:38 AM CST Anesthesia Post-op Note [place] Procedure(s): RELEASE CARPAL TUNNEL (Right: Hand) IN SITU ULNAR NERVE RELEASE (Right: Arm) Anesthesia type: general Vitals: 08/04/24 1030 BP: 98/64 Vitals: 08/04/24 1030 Pulse: 70 Vitals: 08/04/24 1030 Resp: 16 Vitals: 08/04/24 0946 Temp: 36 ??C Vitals: 08/04/24 1030 SpO2: 95% Patient Location: PACU Level of Consciousness: awake, alert and oriented Pain Management: adequate analgesia Airway Patency: patent Respiratory Status: acceptable, room air and spontaneous ventilation Cardiovascular Status: acceptable and hemodynamically stable Post-Op Nausea: none Postoperative Hydration: euvolemic There were no known notable events for this encounter. TING MACHINE OPERATOR * Anesthesia Preprocedure Evaluation - Senthil North MD - 08/01/2024 1:37 PM CST Anesthesia ROS/MED History Reviewed: Patient summary , Nursing notes , Family history anesthesia, Anesthesia history , Medications Pre-Anesthetic State: alert, awake and responds appropriately no history of anesthetic complications Pulmonary (+) sleep apnea, asthma Cardiovascular (+) hypertension, (well controlled), CAD, CHF, arrhythmia, (Paroxysmal), (SVT), hyperlipidemia ROS comment: EKG: SR 63 bpm; 1st degree AV block; intra-atrial conduction delay; horizontal axis; moderate IVCD; borderline ECG; 03/22/24 ECHO: 1. LV Ejection Fraction normal at 60 %. 2. The left ventricular chamber size is mildly increased. 3. Grade 1 Diastolic Dysfunction with normal left atrial pressures. 4. Normal RV systolic function. Deann Rodríguez MD 02/26/21 Neuro/Psych (+) neuromuscular disease (lumbar radiculopathy,, carpal tunnel,), (fibromyalgia), CVA, depression,anxiety, headaches Comments: RLS vertigo Substance Use no history of substance abuse GI/Hepatic/Renal (+) GERD, (well controlled) Comments: RLS Endo/Other (+) hypothyroidism, arthritis, (OA) GENERAL COMMENTS H&P 07/21/24 NPO Status: Physical Evaluation Airway Mallampati: II TM Distance: >3 FB Neck ROM: normal Dental (upper dentures), (lower dentures) Pulmonary Pulmonary exam normal Breath sounds clear to auscultation Cardiovascular Rhythm: regular Rate: normal Cardiovascular exam normal STOP-Bang Assessment: Anesthesia Plan ASA 3 Intravenous Induction Anesthesia type: general Plan for Airway: ETT Informed Consent Anesthetic plan and risks discussed with patient of whom consent was obtained. . TING MACHINE OPERATOR TING MACHINE OPERATOR TING MACHINE OPERATOR documented in this encounter Plan [...] On Ermelinda 08/04/24 at 0715, Pre-op, Pre-Op New Bag 08/04/2024 8:42 AM QUILTING MACHINE OPERATOR 3 g dexamethasone (DECADRON) injection Intravenous, PRN, Starting on Ermelinda 08/04/24 at 0910, Until Ermelinda 08/04/24 at 0953, Anesthesia Intra-Op Given 08/04/2024 9:10 AM QUILTING MACHINE OPERATOR 4 mg fentaNYL (SUBLIMAZE) injection Intravenous, PRN, Starting on Ermelinad 08/04/24 at 0835, Until Ermelinda 08/04/24 at 0953, Anesthesia Intra-Op Given 08/04/2024 8:35 AM QUILTING MACHINE OPERATOR 100 mcg lidocaine (XYLOCAINE) 1 % injection SOLN Intravenous, PRN, Starting on Ermelinda 08/04/24 at 0834, Until Ermelinda 08/04/24 at 0953, Anesthesia Intra-Op Given 08/04/2024 8:34 AM QUILTING MACHINE OPERATOR 10 mLs midazolam (VERSED) injection Intravenous, PRN, Starting on Ermelinda 08/04/24 at 0827, Until Ermelinda 08/04/24 at 0953, Anesthesia Intra-Op Given 08/04/2024 8:27 AM QUILTING MACHINE OPERATOR 2 mg ondansetron (ZOFRAN) injection Intravenous, PRN, Starting on Ermelinda 08/04/24 at 0923, Until Ermelinda 08/04/24 at 0953, Anesthesia Intra-Op Given 08/04/2024 9:23 AM QUILTING MACHINE OPERATOR 4 mg phenylephrine (JENNIFFER-SYNEPHRINE) injection Intravenous, PRN, Starting on Ermelinda 08/04/24 at 0840, Until Ermelinda 08/04/24 at 0953, Anesthesia Intra-Op Given 08/04/2024 8:55 AM QUILTING MACHINE OPERATOR 100 mcg Given 08/04/2024 8:40 AM QUILTING MACHINE OPERATOR 50 mcg propofol (DIPRIVAN) IV bolus Intravenous, PRN, Starting on Ermelinda 08/04/24 at 0835, Until Ermelinda 08/04/24 at 0953, Anesthesia Intra-Op Given 08/04/2024 9:25 AM QUILTING MACHINE OPERATOR 25 mg Given 08/04/2024 8:57 AM QUILTING MACHINE OPERATOR 50 mg Given 08/04/2024 8:35 AM QUILTING MACHINE OPERATOR 150 mg rocuronium (ZEMURON) injection Intravenous, PRN, Starting on Ermelinda 08/04/24 at 0835, Until Ermelinda 08/04/24 at 0953, Anesthesia Intra-Op Given 08/04/2024 8:35 AM QUILTING MACHINE OPERATOR 50 mg sodium chloride 0.9% infusion Intravenous, Continuous PRN, Starting on Ermelinda 08/04/24 at 0829, Until Ermelinda 08/04/24 at 0953, Anesthesia Intra-Op Restarted 08/04/2024 9:45 AM QUILTING MACHINE OPERATOR New Bag 08/04/2024 8:29 AM QUILTING MACHINE OPERATOR 125 mL/hr sugammadex (BRIDION) injection Intravenous, PRN, Starting on Ermelinad 08/04/24 at 0935, Until Ermelinda 08/04/24 at 0953, Anesthesia Intra-Op Given 08/04/2024 9:35 AM QUILTING MACHINE OPERATOR 300 mg documented in this encounter Care Teams Hold Worker Relationship Specialty Start Date End Date Sebastien Sequeira MD [address] [place] [id number] PCP - General INTERNAL MEDICINE 08/02/20 documented as of this encounter
--- OUTSIDE RECORDS SUMMARY | 2024-09-13 06:31 | XMS_ITS | Encounter Summary ---
Author Organization [facility] Address [address] [place] [address]. [place] [address] [place] [address] Care Team Providers Care Lithographic Artist Name Role Phone Sebastien Sequeira MD Primary Care Provider [phone] Reason for Visit * Reason Onset Date Comments Referral 12/23/2023 Encounter Details Date Type Department Care Team (Late st Contact Info) Description 12/23/2023 Telephone [facility] [place] [id number] [place] [address] Adele Garcia, [facility] [address] [facility] [place] [address] Referral Social History Tobacco Use Types Packs/Day [...] Progress Notes * Jeannette Hart - 12/23/2023 2:23 PM CDT Called [facility] to check on referral for patient. Patient is scheduled for 04/29/2024 @ 10:25 am. documented in this encounter Plan of Treatment [...] on filedocumented in this encounter Care Teams Lithographic Artist Relationship Specialty Start Date End Date Sebastien Sequeira MD [address] [place] [address] PCP - General INTERNAL MEDICINE 08/02/20 documented as of this encounter
--- OUTSIDE RECORDS SUMMARY | 2024-09-13 06:31 | XMS_ITS | Encounter Summary ---
Author Organization [facility] Address [address] [place] [address]. [place] [address] [place] [address] Care Team Providers Care Executive Administrator Name Role Phone Sebastien Sequeira MD Primary Care Provider [phone] Reason for Visit * Reason Comments Shoulder Pain LEFT Follow Up RIGHT shoulder Encounter Details Date Type Department Care Team (Latest Contact Info) Description 08/18/2023 10:45 AM SHANK PIECE TACKER Office Visit [facility] [place] [phone] Gustavo So MD [address] [place] [address] Shoulder Pain (LEFT); Follow Up (RIGHT shoulder) Social History Tobacco Use Types Packs/Day Years [...] Sign Reading Time Taken Comments Blood Pressure - - Pulse - - Temperature - - Respiratory Rate - - Oxygen Saturation - - Inhaled Oxygen Concentration - - Weight 133.8 kg (295 lb) 08/18/2023 10:47 AM SHANK PIECE TACKER Height 177.8 cm (5' 10 ) 08/18/2023 10:47 AM SHANK PIECE TACKER Body Mass Index 42.33 08/18/2023 10:47 AM SHANK PIECE TACKER documented in this encounter Functional Status * RETIRED Are [...] Author Status No 06/24/2021 11:17 AM CDT Vanai Degroot RN Active * Do you have [...] Larson RN Active documented in this encounter Progress Notes * Debbi Rodriguez RN - 08/18/2023 10:45 AM CST Gilma is a 73-year-old female who presents for Shoulder Pain (RIGHT) and Follow Up (RIGHT shoulder) Patient here in clinic today for follow up of RIGHT shoulder. States that on her last visit she wasnot moving it the way she should be and was instructed to return in 6 months for follow up. She hada RIGHT reverse TSA on 06/24/21. States has has pain to bicep region of RIGHT arm. Denies night pain. States she has numbness and tingling from RIGHT shoulder with radiation down to fingertips. States she had a fall in January but didn't seek treatment until 5 weeks later and she had a T12 fracture which she is still healing from that. States she applies heat with relief. She takes Tylenol PRN with relief. Ambulates with a wheeled walker. States she has pain also to LEFT shoulder. She locates her pain to anterior and lateral aspect of LEFT shoulder with radiation at times to bicep region. States she received an injection last year which gave her good relief. She would like to discuss other options today if possible. No additional nursing task documentation needed. Vitals: 08/18/23 1047 Weight: 133.8 kg (295 lb) Height: 1.778 m (5' 10 ) Current Outpatient Medications Medication Sig busPIRone 15 MG tablet Take 1 tablet (15 mg total) by mouth daily as needed. clonazePAM (KLONOPIN) 1 MG tablet Take 1 tablet (1 mg total) by mouth 2 (two) times daily as needed. clopidogrel 75 MG tablet Take 1 tablet (75 mg total) by mouth daily. ezetimibe 10 MG tablet Take 1 tablet (10 mg total) by mouth daily. furosemide (LASIX) 40 MG tablet Take 1 tablet (40 mg total) by mouth daily. levothyroxine (SYNTHROID) 112 MCG tablet Take 1 tablet (112 mcg total) by mouth every morning. metoprolol tartrate (LOPRESSOR) 50 MG tablet Take 1.5 tablets (75 mg total) by mouth 2 (two) times daily. nortriptyline 25 MG capsule Take 1 capsule (25 mg total) by mouth nightly at bedtime. omega-3 acid (LOVAZA) 1 GM capsule Take 1 capsule (1 g total) by mouth daily. pantoprazole EC 40 MG tablet Take 1 tablet (40 mg total) by mouth daily. potassium chloride CR (KLOR-CON M) 20 MEQ tablet Take 1 tablet (20 mEq total) by mouth daily. pregabalin (LYRICA) 150 MG capsule Take 1 capsule (150 mg total) by mouth 3 (three) times daily. rOPINIRole 2 MG tablet Take 2 tablets (4 mg total) by mouth nightly at bedtime. rosuvastatin 20 MG tablet Take 1 tablet (20 mg total) by mouth nightly at bedtime. at bedtime. Semaglutide (OZEMPIC, 0.25 OR 0.5 MG/DOSE, SC) Inject 1 mg into the skin weekly. spironolactone 50 MG tablet Take 1 tablet (50 mg total) by mouth daily. traMADol (ULTRAM) 50 MG tablet Take 1 tablet (50 mg total) by mouth every 6 (six) hours as needed for Pain. Indications: Chronic Pain venlafaxine XR 150 MG 24 hr capsule Take 1 capsule (150 mg total) by mouth daily. Past Surgical History: Procedure Laterality Date ARTHROSCOPY SHOULDER ROTATOR CUFF REPAIR Right FOOT SURGERY Right HYSTERECTOMY HYSTERECTOMY JOINT REPLACEMENT Bilateral JOINT REPLACEMENT Right shoulder RELEASE HAND/FINGER TENDON Left SPINAL FUSION 11/18/2021 L3-S1 fusion TOTAL HIP ARTHROPLASTY Left 08/13/2020 TOTAL HIP ARTHROPLASTY Right 11/19/2020 TOTAL KNEE ARTHROPLASTY Bilateral TOTAL SHOULDER ARTHROPLASTY Right 06/24/2021 right reverse total shoulder arthroplasty using a DePuy delta extend 12mm stem with a size 1 eccentric body and a 38 mm +2 glenosphere with a +9 metal spacer with a + 3 polyethylene spacer Allergies Contrave [naltrexone-bupropion hcl er], Zanaflex [tizanidine], and Statins [x] Total Rvcy-cs-Femh Assessment Time: 16-30 minutes Additional Contributory Factors NONE K PIECE TACKER K PIECE TACKER * Gustavo So MD - 08/18/2023 10:45 AM CST Chief Complaint: Shoulder Pain (LEFT) and Follow Up (RIGHT shoulder) History of Present Illness: Gilma Mills is a 73-year-old female who presents to the office for Shoulder Pain (LEFT) and Follow Up (RIGHT shoulder) Patient here in clinic today for follow up of RIGHT shoulder and for LEFT shoulder pain.. States that on her last visit she was not moving the RIGHT shoulder the way she should be and was instructed to return in 6 months for follow up. She had a RIGHT reverse TSA on 06/24/21. States has has pain tobicep region of RIGHT arm. Denies night pain. States she has numbness and tingling from RIGHT shoulder with radiation down to fingertips. States she had a fall in January but didn't seek treatment until 5 weeks later and she had a T12 fracture which she is still healing from that. States she applies heat with relief. She takes Tylenol PRN with relief. Ambulates with a wheeled walker. States she has pain also to LEFT shoulder. She locates her pain to anterior and lateral aspect of LEFT shoulder with radiation at times to bicep region. States she received an injection last year which gave her good relief. She would like to discuss other options today if possible. ROS: See HPI for pertinent positives Problem List: Patient Active Problem List Diagnosis Obstructive sleep apnea Post-nasal drip Restless legs syndrome Hypertension Fibromyalgia Daytime hypersomnia Arthritis Primary osteoarthritis of left hip Status post left hip replacement Primary osteoarthritis of right hip Radiculopathy, lumbar region Rotator cuff arthropathy of right shoulder Status post reverse arthroplasty of right shoulder Painful orthopaedic hardware (CMS/HCC) Osteoarthritis of left glenohumeral joint History of total knee arthroplasty, right Recurrent pain of right knee History: Past Medical History: Diagnosis Date Acid reflux COVID-19 vaccine series completed see media Depression with anxiety Disease of thyroid gland Fibromyalgia Hypertension Hypothyroidism, unspecified Migraines Mixed hyperlipidemia Stroke (HHS/HCC) (CMS/HCC) Pt had no symptoms 4 years ago. Past Surgical History: Procedure Laterality Date ARTHROSCOPY SHOULDER ROTATOR CUFF REPAIR Right FOOT SURGERY Right HYSTERECTOMY HYSTERECTOMY JOINT REPLACEMENT Bilateral JOINT REPLACEMENT Right shoulder OTHER PROCEDURE Left 09/11/2022 09/11/22 RIGHT knee [...] spacer with a + 3 polyethylene spacer Family History Problem Relation Name Age of Onset Cancer Mother COPD Father Cancer Sister Other (histoplasmosi) Brother No Known Problems Sister Multiple Sclerosis Sister Family Status Relation Name Status Mother Father Sister Alive Brother Alive Sister Alive Sister Alive Social History Socioeconomic History Marital status: Tobacco Use Smoking status: Never Smokeless tobacco: Never Vaping Use Vaping Use: Never used Substance and Sexual Activity Alcohol use: Not Currently Drug use: Never Medications: Current Outpatient Medications: busPIRone 15 MG tablet, Take 1 tablet (15 mg total) by mouth daily as needed., Disp: , Rfl: clonazePAM (KLONOPIN) 1 MG tablet, Take 1 tablet (1 mg total) by mouth 2 (two) times daily as needed., Disp: , Rfl: clopidogrel 75 MG tablet, Take 1 tablet (75 mg total) by mouth daily., Disp: , Rfl: ezetimibe 10 MG tablet, Take 1 tablet (10 mg total) by mouth daily., Disp: , Rfl: furosemide (LASIX) 40 MG tablet, Take 1 tablet (40 mg total) by mouth daily., Disp: , Rfl: levothyroxine (SYNTHROID) 112 MCG tablet, Take 1 tablet (112 mcg total) by mouth every morning., Disp: , Rfl: metoprolol tartrate (LOPRESSOR) 50 MG tablet, Take 1.5 tablets (75 mg total) by mouth 2 (two) timesdaily., Disp: , Rfl: nortriptyline 25 MG capsule, Take 1 capsule (25 mg total) by mouth nightly at bedtime., Disp: , Rfl: omega-3 acid (LOVAZA) 1 GM capsule, Take 1 capsule (1 g total) by mouth daily., Disp: , Rfl: pantoprazole EC 40 MG tablet, Take 1 tablet (40 mg total) by mouth daily., Disp: , Rfl: potassium chloride CR (KLOR-CON M) 20 MEQ tablet, Take 1 tablet (20 mEq total) by mouth daily., Disp: , Rfl: pregabalin (LYRICA) 150 MG capsule, Take 1 capsule (150 mg total) by mouth 3 (three) times daily., Disp: , Rfl: rOPINIRole 2 MG tablet, Take 2 tablets (4 mg total) by mouth nightly at bedtime., Disp: , Rfl: rosuvastatin 20 MG tablet, Take 1 tablet (20 mg total) by mouth nightly at bedtime. at bedtime., Disp: , Rfl: Semaglutide (OZEMPIC, 0.25 OR 0.5 MG/DOSE, SC), Inject 1 mg into the skin weekly. , Disp: , Rfl: spironolactone 50 MG tablet, Take 1 tablet (50 mg total) by mouth daily., Disp: , Rfl: traMADol (ULTRAM) 50 MG tablet, Take 1 tablet (50 mg total) by mouth every 6 (six) hours as needed for Pain. Indications: Chronic Pain, Disp: 15 tablet, Rfl: 0 venlafaxine XR 150 MG 24 hr capsule, Take 1 capsule (150 mg total) by mouth daily., Disp: , Rfl: Review of patient's allergies indicates: Allergen Reactions Contrave [Naltrexone-Bupropion Hcl Er] Dizziness Zanaflex [Tizanidine] Other (see comment) hypotension Statins Rash Objective: Body mass index is 42.33 kg/m??. Last Recorded Weight 08/18/23 1047 Weight: 133.8 kg (295 lb) Physical exam: Constitutional: Alert and in no acute distress. Neurological: The patient was oriented to person, place, and time. Eyes: The sclera and conjunctiva were normal ENT: Hearing was normal. Neck: The appearance of the neck was normal. Cardiovascular: Normal pulses. Pulmonary: No respiratory distress. Skin: No injuries or skin lesion. Musculoskeletal: Patient demonstrates very nice range of motion of the right shoulder but only is abducting actively just past 90 degrees but otherwise internal and external rotation are very good. She indicates pain in the biceps and no pain at the shoulder. Palpation at the biceps reproduces milddiscomfort. No swelling or erythema. She does report decreased sensation in the fingers. Left shoulder demonstrates restricted range of motion and crepitus is noted. Global weakness Results: Right shoulder demonstrates a reverse total shoulder arthroplasty in satisfactory position. She does have scapular notching present. The left shoulder demonstrates severe degenerative changes with loss of joint space Assessment: Encounter Diagnose(s) ICD-10-CM SNOMED CT(R) 1. Osteoarthritis of left glenohumeral joint M19.012 OSTEOARTHRITIS OF LEFT GLENOHUMERAL JOINT XR SHOULDER LT MIN 2V lidocaine (XYLOCAINE) 1 % injection SOLN 4 mL methylPREDNISolone acetate (DEPO-Medrol) injection 80 mg 2. Status post reverse arthroplasty of right shoulder Z96.611 HISTORY OF REVERSE PROSTHETIC TOTAL ARTHROPLASTY OF RIGHT SHOULDER Procedure: Procedure: Injection of the Glenohumeral Joint on the left. Indications for the procedure include Osteoarthritis. The procedure's were discussed with the patient. Verbal consent was obtained prior tothe procedure. Procedure Note: Gilma was prepped and draped in the usual sterile fashion using alcohol and using betadine. Anesthesia: Ethyl chloride spray was used as a topical anesthetic. A needle was used to inject 4 mLlidocaine 1% and methylprednisolone 80 mg/mL. Dressing: A bandage was applied. Post-Procedure: the patient tolerated the procedure well. Complications: there were no complications. Follow-up in the office prn. Plan: I recommended glenohumeral injection left shoulder. She had 1 little over a year ago that actually was very helpful. She is seeing Dr. Llanos in regard to her neurologic issues after she had a fall in January with a T12 fracture. The neck may be the most likely culprit in regard to her right upper extremity symptoms so Dr. Llanos will have to figure that out. I injected the left glenohumeral joint and she will return as needed Follow up: Return if symptoms worsen or fail to improve. GUSTAVO SO MD K PIECE TACKER documented in this encounter Plan of Treatment Not on file documented as of this encounter Goals Goal Patient Goal Type Associated Problems Recent Progress Patient-Stated? Author Safety - able to safely ambulate at home; tripping hazards removed from the home Krystal Boyer RN Note: Pt wants to go home safely with new walker. Pt made aware that therapy will work with her on safety. documented as of this encounter Results * XR SHOULDER LT MIN 2V (08/18/2023 12:12 PM SHANK PIECE TACKER) Anatomical Region Laterality Modality Shoulder Radiographic [place] ging 08/18/2023 3:30 PM SHANK PIECE TACKER Impressions 08/18/2023 3:31 PM SHANK PIECE TACKER IMPRESSION: Arthritic changes left shoulder. Ordered By: GUSTAVO SO Interpreted By: Gary Sandoval MD, 08/18/2023 3:30 PM Narrative 08/18/2023 3:31 PM SHANK PIECE TACKER 08/18/2023, 10:17 AM. HISTORY: Left shoulder pain. EXAM: 3 views of the left shoulder. Correlation to study 07/23/2022. FINDINGS: Osteoarthritis left glenohumeral joint with narrowing of the joint space. There is minimal marginal spurring at the inferior margin of the humeral head neck junction. There appear to be faint calcifications or ossifications projected over the axillary region of the left shoulder which could be intra-articular bodies in the axillary recess of the glenohumeral joint but might indicate periarticular soft tissue calcification. Minimal arthritis left acromioclavicular joint. No fracture. No gross bone destruction. Procedure Note Gary Sandoval MD - 08/18/2023 08/18/2023, 10:17 AM. HISTORY: Left shoulder pain. EXAM: 3 views of the left shoulder. Correlation to study 07/23/2022. FINDINGS: Osteoarthritis left glenohumeral joint with narrowing of thejoint space. There is minimal marginal spurring at the inferior margin ofthe humeral head neck junction. There appear to be faint calcifications orossifications projected over the axillary region of the left shoulderwhich could be intra-articular bodies in the axillary recess of theglenohumeral joint but might indicate periarticular soft tissuecalcification. Minimal arthritis left acromioclavicular joint. No fracture. No gross bone destruction. IMPRESSION: Arthritic changes left shoulder. Ordered By: GUSTAVO SO Interpreted By: Gary Sandoval MD, 08/18/2023 3:30 PM Gustavo So MD GENERAL IMAGING Final Result documented in this encounter Visit Diagnoses Diagnosis Osteoarthritis of left glenohumeral joint- Primary Status post reverse arthroplasty of right shoulder Right shoulder pain, unspecified chronicity Osteoarthritis of left glenohumeral joint documented in this encounter Administered Medications Inactive Administered Medications - up to 3 most recent administrations Medication Order MAR Action Action Date Dose Rate Site lidocaine (XYLOCAINE) 1 % injection SOLN 4 mL 4 mL, Other, Once, 1 dose, On Thu08/18/23 at 1215Indications:Osteoarthritis of left glenohumeral joint Given 08/18/2023 11:48 AM SHANK PIECE TACKER 4 mLs methylPREDNISolone acetate (DEPO-Medrol) injection 80 mg 80 mg, Other, Once, 1 dose, On Thu08/18/23 at 1215, Luis WellIndications:Osteoarthritis of left glenohumeral joint Given 08/18/2023 11:48 AM SHANK PIECE TACKER 80 mg documented in this encounter Care Teams Executive Administrator Relationship Specialty Start Date End Date Sebastien Sequeira MD [address] [place] [address] PCP - General INTERNAL MEDICINE 08/02/20 documented as of this encounter
--- OUTSIDE RECORDS SUMMARY | 2024-09-13 06:31 | XMS_ITS | Encounter Summary ---
Author Organization [facility] Address [facility] [place] [address] [place] [address] Care Team Providers Care Manager Business Continuity Name Role Phone Sebastien Sequeira MD Primary Care Provider [phone] Encounter Details Date Type Department Care Team (Latest Contact Info) Description 09/01/2024 Travel Social History Tobacco Use Types Packs/Day Years Used Date Smoking Tobacco: Never Smokeless Tobacco: Never Alcohol Use Standard Drinks/Week Comments Not Currently 0 (1 standard drink = 0.6 oz pur e alcohol) [facility] Utilities Answer Date Recorded In the past 12 months has e [employer], gas, oil, or water [employer] threatened to shut off services in your [...] time in the past 12 m [facility], were you homeless or living in a snf (including now)? No 03/31/2024 Comments No Sex and Gender Information Value Date Recorded Sex Assigned at Not on file Legal Sex Female 2:03 AM CDT Gender Identity Not on file Sexual Orientation Not on file documented as of this encounter Functional Status * Are you deaf or do you have serious difficulty hearing Answer Date of Assessment Author Status No 09/01/2024 7:04 AM Keyla Donohue RN Active * Are you blind or do you have serious difficulty seeing, even when wearing glasses? Answer Date of Assessment Author Status No 09/01/2024 7:04 AM Keyla Donohue RN Active * Do you have serious difficulty walking or climbing stairs? Answer Date of Assessment Author Status Yes 03/31/2024 11:22 PM CANDELARIOT Desmond Ortega RN Active * Do you have difficulty dressing or bathing? Answer Date of Assessment Author Status No 03/31/2024 11:22 PM CDT Desmond Ortega RN Active * Because of [...] Merritt RN Active documented in this encounter Plan [...] on filedocumented in this encounter Care Teams Manager Business Continuity Relationship Specialty Start Date End Date Sebastien Sequeira MD [address] [place] [address] PCP - General INTERNAL MEDICINE 08/02/20 documented as of this encounter
--- OUTSIDE RECORDS SUMMARY | 2024-09-13 06:31 | XMS_ITS | Encounter Summary ---
Author Organization [facility] Address [facility]. [place], [place] [id number] [place] [id number] Care Team Providers Care Cosmetology Professor Name Role Phone Sebastien Sequeira MD Primary Care Provider [phone] Reason for Referral * (Routine) - Canceled Specialty Diagnoses / Procedures Referred By Aaron rai Referred To Contact Procedures Rehab consult (OT) to evaluate and treat An Avery MD [address] [place] [id number] Phone: tel: fax: Referral ID Status Reason Start Date Expiration Date V isits Requested Visits Authorized [id number] Canceled 03/31/2024 03/31/2025 1 1 Reason for Visit * Auth/Cert Specialty Diagnoses / Procedures Referred By Aaron rai Referred To Contact Diagnoses SHOULDER ARTHRITIS Procedures RECONSTR TOTAL SHOULDER IMPLANT RECONSTR TOTAL SHOULDER IMPLANT ARTHROPLASTY SHOULDER TOTAL REVERSE An Avery MD [address] [place] [address] Phone: tel: fax: Referral ID Status Reason Start Date Expiration Date Visits Re quested Visits Authorized [id number] 1 1 Encounter Details Date Type Department Care Team (Late st Contact Info) Description 03/31/2024 8:51 AM CDT - 04/01/2024 1:15 PM CDT Hospital Encounter [facility] [address] [place] [address] An Avery MD [address] [place] [address] Discharge Disposition: Home or Self Care (Routine Discharge) Social History Tobacco Use Types Packs/Day Years Used Date Smoking Tobacco: Never Smokeless Tobacco: Never Alcohol Use Standard Drinks/Week Comments Not Currently 0 (1 standard drink = 0.6 oz pur e alcohol) [facility] Utilities Answer Date Recorded In the past 12 months has e electric, gas, oil, or water [employer] threatened to shut off services in your [...] time in the past 12 m [facility], were you homeless or living in a senior living (including now)? No 03/31/2024 Comments No Sex and Gender Information Value Date Recorded Sex Assigned at Not on file Legal Sex Female 2:03 AM CDT Gender Identity Not on file Sexual Orientation Not on file documented as of this encounter Last Filed Vital Signs Vital Sign Reading Time Taken Comments Blood Pressure 97/65 04/01/2024 11:37 AM CDT Pulse 79 04/01/2024 11:37 AM CDT Temperature 36.6 ??C (97.9 ??F) 04/01/2024 1 1:37 AM CDT Respiratory Rate 16 04/01/2024 7:41 AM CDT Oxygen Saturation 91% 04/01/2024 11: 37 AM CDT Inhaled Oxygen Concentration - - Weight 138.5 kg (305 lb 6.4 oz) 024 11:27 PM CDT Height 172.7 cm (5' 8 ) 03/31/2024 11:2 7 PM CDT Body Mass Index 46.44 03/31/2024 11:27 PM CDT documented in this encounter Functional Status * Question Answer Date of Assessment Author Status Do you have serious difficulty walking or climbing stairs? Yes 03/31/2024 11:22 PM CDT Desmond Ortega RN A ctive * Question Answer Date of Assessment Author Status Do you have difficulty dressing or bathing? No 03/31/2024 11:22 PM CDT Desmond Ortega RN Active Because of a physical, mental, or emotional condition, do you have difficulty doing errands alone such as visiting a doctor's office or shopping? No 03/31/2024 11:22 PM CDT Desmond Ortega RN Ac tive * Are you deaf or do you have serious difficulty hearing Answer Date of Assessment Author Status Yes 03/31/2024 11:22 PM Desmond Merritt RN Active * Are you blind or [...] this encounter Discharge Instructions * Discharge Instructions* Orlin Carrera MD - 04/01/2024 10:58 AM CDT Discharge Instructions: - Do not bear weight with your operative extremity - Do home exercises as instructed - Keep wound clean and dry. Keep covered. - Keep mepilex in place until follow up - You may shower with mepilex dressing in place. Do not soak or scrub the area. - Take pain medications as prescribed as needed. - Take blood thinner if prescribed - Call the office or return to the ER if you notice any of the following: severe/uncontrollable pain, numbness, tingling, inability to move or feel fingers/toes, spreading redness around the wound, foul-smelling drainage from the wound, nausea/vomiting, or fever >100.4 F - Follow up with Dr. Avery as scheduled post operatively. Call [phone] if you need to changeyour appointment. documented in this encounter Medications at Time [...] total) by mouth nightly at bedtime. 06/18/2020 furosemide (LASIX) 40 MG tablet Take 1 tablet (40 mg total) by mouth every morning. Will hold DOS 12/18/2022 levothyroxine (SYNTHROID) 112 MCG tablet Take 1 tablet (112 mcg total) by mouth every morning. 05/27/2023 Magnesium 400 MG Cap Take 1 capsule by mouth nightly at bedtime. melatonin 5 MG tablet Take 2 tablets (10 mg total) by mouth nightly at bedtime. nortriptyline 25 MG capsule Take 1 capsule (25 mg total) by mouth nightly at bedtime. 11/15/2013 pantoprazole EC 40 MG tablet Take 1 [...] mg total) by mouth every morning. 05/24/2020 omega-3 acid (LOVAZA) 1 GM capsule Take 1 capsule (1 g total) by mouth daily. 05/23/2023 07/29/2024 oxyCODONE immediate release (ROXICODONE) 5 MG immediate release tablet Post op script 03/23/2024 07/29/2024 sulfamethoxazole- trimethoprim (BACTRIM DS) 800-160 MG tablet Take 1 tablet by mouth 2 (two) times daily. 12/22/2023 07/29/2024 documented as of this encounter Progress Notes * Landy Church RN - 04/01/2024 11:30 AM CDT 04/01/24 1130 Referral Data Source of Information Patient Patient Information Primary Caregiver Self Current living Situation Spouse/significant other Type of Residence Private residence Support System Spouse/Significant Other Are you employed? 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 The screening is to screen the patient for what services and destination would be beneficial for patient for next level of care Conversation with the patient/family Will the patient be returning to prior living situation with no new identified needs? Yes Adequate Resources Available Adequate Resources Yes Met with patient at bedside to introduce self and role. Lives with spouse, independent with use of walker/cane. Has CPAP through [employer]. Spouse to purchase toilet seat riser. No other anticipated discharge needs. Has transportation home. PCP: Sebastien Sequeira Pharm: Matt Dos Santos * Shey Hawkins RN - 04/01/2024 10:15 AM CDT POD #1 Evaluation Anesthesia Pain score: at rest 0, With movement 0 Procedure: on the right Shoulder peripheral nerve block Block: Interscalene Continuous Epidural: N/A Continuous Pain Pump: On-Q 12 cc/hr Bromage Scale: NA If patient had block, has it worn off yet? No On-Q infusing Physical Therapy issues: No Complications: None Pt had to stay overnight due to low O2 sats. Pt remains on O2 but does not feel short of breath. Pthappy with the ON-Q & is currently pain free. to discontinue On-Q on Thursday when the ball is empty. Vitals: 04/01/24 0741 BP: 116/56 Pulse: 87 Resp: 16 Temp: 36.6 ??C SpO2: 96% SHEY HAWKINS RN 04/01/2024 Cosigned by Renee Wellington MD at 04/01/2024 1:11 PM CDT * Irma Gary OT - 04/01/2024 10:10 AM KENDRAummary: OT evaluation OT Initial Evaluation Discharge Recommendation: home with assistance Outpatient OT for post TSA recovery DME equipment recommendation: toilet riser without arms Activity Recommendation for rand butter: up with assist of 1 with cane - NWB LUE 04/01/24 0900 Therapy Visit OT Received On 04/01/24 Reason for admission Pt s/p L reverse TSA 03/31 and is [address]B. Per Dr. Carrrea - PROM to elbow, wrist andhand only with no shoulder movement...PMH: acid reflux, arthritis, asthma, depression, anxiety, fibromyalgia, HTN, HLD, hypothyroidism, PARI, CVA, R RTC repair, back sx, B TKA, B ALEXUS, R TSA...Orders: eval and treat...Activity: ambulate, NWB LUE Ordering Provider Dr. Gena LICONA Verified Two Patient Identifiers Yes Patient consents to therapy Yes Acute Inpatient OT Time Calculation OT Start Time 0915 OT Stop Time 1010 OT Time Calculation (min) 55 min Precautions Weight Bearing Status LUE;NWB Arm Brace/Sling Applied (sling to LUE) General Precautions Bed Alarm;Chair Alarm;Fall Risk Skin Integrity dressing to L shoulder Subjective Subjective Pt supine in bed upon arrival and agreeable to evaluation Prior Function PLOF Comments Pt reports that she lives with her in a 1 story home with a ramp to enter...bathroom: walk-in shower and tall toilet with sink to L and grab bar to R...Baseline: independent with self care, walks with a cane, and shares IADLs with ...Falls: none...AE: cane, 2ww, 4ww... can assist 06/04 if needed Pain Pain Patient does not offer or c/o pain Activity Tolerance Limiting Factors to Endurance (WB restrictions, TSA precautions, baseline decreased balance) Vision - Basic Assessment Current Vision Wears glasses all the time Vision - Complex Assessment Acuity Able to read clock/calendar on wall without difficulty;Able to read employee name badge without difficulty Additional Comments Pt reports no changes in vision since admit Cognition Overall Cognitive Status WFL Arousal/Alertness Appropriate responses to stimuli Attention Span Appears intact Memory Appears intact Orientation Level Oriented X4 Following Commands Follows all commands and directions without difficulty Safety Judgment Good awareness of safety precautions Awareness of Errors Good awareness of errors made Deficits Fully aware of deficits Problem Solving Able to problem solve independently Motor Planning Appears intact Perseveration Not present Initiation Appears intact RUE Assessment RUE Comment AROM and strength WFLs LUE Assessment LUE Comment L wrist and hand WFL; L elbow PROM WFL - pt educated on precautions and HEP per MD request including PROM to elbow, wrist and hand - pt reports that she recalls exercises from previous R TSA and states no questions or concerns Hand Function Gross Grasp Functional Coordination Functional Sensation Additional Comments Pt reports absent sensation over L shoulder; dulled to upper L arm but intacts throughout rest of arm ADL Eating/Feeding Assistance Sitting in chair Eating/Feeding Deficit Setup Grooming Assistance Stand by;Sitting in chair Grooming Deficit Wash/dry hands UE Dressing Assistance (Pt able to verbal give instructions for upper body dressing following education on technique givenTSA precautions) LE Dressing Assistance Sitting in chair LE Dressing Deficit (SBA to doff socks and don slip on shoes; SBA to doff/doff underwear) Toileting Assistance (SBA to doff depend and min A to don underwear over hips with pt reporting can assist with this at home) Bed Mobility Supine to Sit Min assist to left (with HOB up and use of rails - sleeps in a lift recliner at home) Functional Transfers Sit to Stand (from elevated bed SBA; recliner chair min A (lift chair at home)) Toilet Transfers Min assist;Grab bars (mocked to home - discussed use of toilet riser at home with pt verbalizing understanding and will obtain for home) Functional Mobility Pt completed functional mobility within her room 30' x 2 with SBA with a cane in RUE Balance Sitting - Static Independent Sitting - Dynamic Independent Standing - Static SBA Standing - Dynamic SBA;Support of one upper extremity Assessment Occupational Profile and History Complexity Moderate (Expanded) Performance Skills Deficits Bathing/showering;Dressing;Education;Functional mobility;Personal hygiene and grooming;Toileting Performance Deficit Level High (5 or more deficits) Clinical Decision Making Moderate (min/mod modifications) Complexity Level of Evaluation Moderate Prognosis Good OT Assess/Eval Other (Comment) Pt reports that she is independent with self care, mobility, and IADLs prior to surgery. Currently the patient presents with decreased independence with self care and mobility due precautions, NWB status, and decreased balance. They would benefit from continued OT services to maximize their independence prior to returning home. Patient/Family Training Precautions TSA precautions Discharge Recommendation OT Recommendation Home with assistance;Outpatient OT (for post TSA recovery) Plan OT Treatment/Intervention Self-care training;Therapeutic exercises;Therapeutic activities;Safety;Functional activity;Patient/family training OT Frequency 5 times/week OT - Next Appointment 04/01/24 If this is the last treatment note, it will serve as the discharge summary Yes End of Session End of Session Safety Chair alarm set/activated;Call light within reach;Nursing aware of session;Transfer status education Goals: The below POC to be followed until 04/04/24 at that time POC will be re-assessed to ensure patient is making appropriate progression. Pt will complete upper body dressing with Modified [place] sitting EOB or in chair to increasesafety and independence with ADLs. Pt will complete lower dressing with Independent sitting EOB or in chair to increase safety and independence with ADLs. Pt will complete all grooming and self-feeding with Independent to increased safety and independence with ADLs. Pt will complete ADLs at sink with Independent to increase independence with ADLs. Pt will complete toileting hygiene and clothing management with Independent to increase safety and independence with ADLs. Pt to complete upper body bathing with Modified [place] seated in chair/EOB to increase independence with ADLs. Pt to complete lower body bathing with Independent seated in chair/EOB to increase independence with ADLs. Pt will complete bed mobility with Independent with HOB flat to increase safety and independence with functional transfers. Pt will complete transfers all surfaces to/from all surfaces with Modified [place] using leastrestrictive device to increase functional mobility and transfers. Pt will independently complete PROM to elbow, wrist and hand to affected arm to maintain available ROM, an to increase safety and independence with ADLs and functional transfers. Pt will follow reverse TSA precautions with no verbal cuing to increase safety awareness and independence with ADLs and functional transfers. Education: Primary Learners Name: Keegan Mills Primary Language of learner: [place] Patient was educated on precautions exercises transfers ADLs balance bed mobility equipment therapy plan gait safety joint protection. Education was completed one to one verbal hands-on this date. Preference of learning new concepts one to one verbal hands-on Barriers to education this date were fatigue physical impairment. Response to education this date verbalized understanding verbalized recall asks questions demos with verbal cues needs reinforcement needs follow up needs assistance. * Des Lauren - 04/01/2024 9:00 AM CDT Patient assessed for emotional/spiritual needs and well-being, role of Spiritual Care explained. Patient's Disposition/People present: Patient alert Patient's support system: family, marta L[employer] Day Affiliation/Spiritual Background: Hoahaoism Marta community: None , , Notification of marta community desired: No Needs identified: Emotional/Spiritual Support Interventions: Active Listening, Supportive Presence, Prayer Follow up Needed: as need Health care directive: Patient has Advance Directives * Orlin Carrera MD - 04/01/2024 5:41 AM CDT Ortho Resident Progress Note S: Pt seen at bedside. NAEO. No c/o SOB this AM but is on 2L NC. Tolerating diet. Has been able to urinate. No other issues. O: Vitals: 04/01/24 0407 BP: 111/40 Pulse: 77 Resp: 16 Temp: 97.3 ??F (36.3 ??C) SpO2: 91% Physical Exam: GEN: NAD HEART: Regular rate. Adequate peripheral perfusion. RESP: Airway patent. MSK: LUE: post op dressing in place w/o visible drainage. Compartments soft and compressible throughout. SILT axillary, radial, median, ulnar. Fires AIN, PIN, ulnar. 2+ radial pulse. ASSESSMENT/PLAN: Keegan Mills is a 74-year-old female s/p L RSA [address] Avery Will plan to monitor this morning as she had trouble keeping o2 sat up in pacu yesterday. Plan for DC if no further issues. Pain: as ordered Diet: GD Activity: NWB LUE in sling Labs: as ordered Dressing: L shoulder mepilex DVT PPx: home plavix Medical: as ordered Labs: Lab Results Component Value Date WBC 5.76 10/31/2022 HGB 13.1 10/31/2022 PLT 208 10/31/2022 Dispo: pending post op course, likely home today Orlin Carrera MD Current Facility-Administered Medications: acetaminophen (TYLENOL) tablet 500 mg, 500 mg, Oral, Q6H, An Avery MD, 500 mg at 04/01/24 0020 acetaminophen (TYLENOL) tablet 650 mg, 650 mg, Oral, Q4H PRN, An Avery MD albuterol sulfate HFA 108 (90 Base) MCG/ACT inhaler 2 puff, 2 puff, Inhalation, Q6H PRN, An Avery MD atorvastatin (LIPITOR) tablet 40 mg, 40 mg, Oral, Daily, An Avery MD busPIRone (BUSPAR) tablet 15 mg, 15 mg, Oral, Q12H, An Avery MD, 15 mg at 04/01/24 0019 ceFAZolin (ANCEF) 3 g in sodium chloride 0.9 % 100 mL IVPB, 3 g, Intravenous, Q8H, An Avery MD, Stopped at 04/01/24 0154 celecoxib (CeleBREX) capsule 200 mg, 200 mg, Oral, BID, An Avery MD clonazePAM (klonoPIN) tablet 1 mg, 1 mg, Oral, BID PRN, An Avery MD clopidogrel (PLAVIX) tablet 75 mg, 75 mg, Oral, Daily, An Avery MD dexamethasone (DECADRON) injection 4 mg, 4 mg, Intravenous, Once, An Avery MD diphenhydrAMINE (BENADRYL) capsule 50 mg, 50 mg, Oral, Q6H PRN, An Avery MD docusate sodium (COLACE) capsule 100 mg, 100 mg, Oral, BID, An Avery MD, 100 mg at 04/01/24 0023 ezetimibe (ZETIA) tablet 10 mg, 10 mg, Oral, Daily, An Avery MD fluticasone-salmeterol (ADVAIR HFA) 230-21 MCG/ACT inhaler 2 puff, 2 puff, Inhalation, 2 times daily, An Avery MD furosemide (LASIX) tablet 40 mg, 40 mg, Oral, Daily, An Avery MD HYDROmorphone (DILAUDID) injection 0.2 mg, 0.2 mg, Intravenous, Q30 Min PRN, An Avery MD lactated ringers infusion, , Intravenous, Continuous, Renee Wellington MD, New Bag at 03/31/24 1333 lactated ringers infusion, , Intravenous, Continuous, An Avery MD, Last Rate: 100 mL/hr at 04/01/24 0026, New Bag at 04/01/24 0026 levothyroxine (SYNTHROID) tablet 112 mcg, 112 mcg, Oral, Daily, An Avery MD magnesium oxide (MAG-OX) tablet 400 mg, 400 mg, Oral, Nightly at bedtime, An Avery MD, 400 mg at 04/01/24 0021 normal saline 0.9 % flush 3-10 mL, 3-10 mL, Intravenous, Q8H, An Avery MD, 10 mL at 04/01/24 0023 normal saline 0.9 % flush 3-10 mL, 3-10 mL, Intravenous, PRN, An Avery MD nortriptyline (PAMELOR) capsule 25 mg, 25 mg, Oral, Nightly at bedtime, An Avery MD, 25 mg at 04/01/24 0035 ondansetron (ZOFRAN) injection 4 mg, 4 mg, Intravenous, Q6H PRN, An Avery MD oxyCODONE immediate release (ROXICODONE) tablet 10 mg, 10 mg, Oral, Q4H PRN, An Avery MD oxyCODONE immediate release (ROXICODONE) tablet 5 mg, 5 mg, Oral, Once, An Avery MD oxyCODONE immediate release (ROXICODONE) tablet 5 mg, 5 mg, Oral, Q4H PRN, An Avery MD pantoprazole EC (PROTONIX) tablet 40 mg, 40 mg, Oral, Daily, An Avery MD potassium chloride CR (KLOR-CON M) tablet 20 mEq, 20 mEq, Oral, Q24H, An Avery MD pregabalin (LYRICA) capsule 150 mg, 150 mg, Oral, TID, An Avery MD, 150 mg at 04/01/24 001 propranolol (INDERAL) tablet 60 mg, 60 mg, Oral, BID, An Avery MD rOPINIRole (REQUIP) tablet 4 mg, 4 mg, Oral, Nightly at bedtime, An Avery MD, 4 mg at04/01/24 001 ropivacaine (ON-Q PUMP) 0.2% nerve block pump 550 mL, , Nerve Block catheter, Continuous, Renee Frazier MD spironolactone (ALDACTONE) tablet 25 mg, 25 mg, Oral, Daily, An Avery MD venlafaxine XR (EFFEXOR-XR) 24 hr capsule 150 mg, 150 mg, Oral, Daily, An Avery MD Cosigned by An Avery MD at 04/01/2024 8:24 AM CDT documented in this encounter H&P Notes * An Avery MD - 03/31/2024 10:38 AM CDT HISTORY AND PHYSICAL INTERVAL NOTE: I have reviewed Keegan Henley Lina History & Physical which was performed within the past 30 days. After examining Keegan Mills, no change has occurred in the patient's condition since the H&P was completed. Informed Consent Discussion: Potential benefits, risks, and side effects of the patient's procedure/surgery; the likelihood of the patient achieving his or her goals; and any potential problems that might occur during recuperation were discussed with the patient/family/personal energy conservation representative. Reasonable alternatives to the patient's proposed procedure/surgery including benefits, risks, and side effects related to the alternatives and the risks related to not receiving the proposed care were also discussed with the patient/family/personal energy conservation representative. Questions were answered and the patient/family/personal energy conservation representative verbalized understanding and desires to proceed. Source Note - [facility] - 03/22/2024 12:01 AM CDT documented in this encounter OR Notes * Brief Op Note - An Avery MD - 03/31/2024 1:53 PM CDT [facility] Brief Op HSHSARTHROPLASTY SHOULDER TOTAL REVERSE Procedure Note Keegan Mlils 03/31/2024 1110 Procedure(s) (LRB): ARTHROPLASTY SHOULDER TOTAL REVERSE (Left) Surgeon(s): MD Orlin Krause MD Hostel Manager: Church Administrator: Toni Fenton RN Anesthesia: General Pre-Op Diagnosis: SHOULDER ARTHRITIS Post-Op Diagnosis: Same Findings: rtc arthropathy Estimated Blood Loss: 150cc Specimens: None AN AVERY MD Date: 03/31/2024 Time: 1:53 PM * Op Note - An Avery MD - 03/31/2024 12:00 AM CDT Patient Name: KEEGAN MILLS Date of : 1950 Account: [id number] Facility: [facility] Location: [facility] Date of Service: 03/31/2024 Operative Note PREOPERATIVE DIAGNOSIS: Left shoulder rotator cuff arthropathy. POSTOPERATIVE DIAGNOSIS: Left shoulder rotator cuff arthropathy. PROCEDURE PERFORMED: Left reverse total shoulder arthroplasty. SURGEON: An Avery MD ASSISTANTS: DELICIA An and Orlin Carrera MD. COMPLICATIONS: None. ESTIMATED BLOOD LOSS: 150 mL. ANESTHESIA: General plus indwelling interscalene block. COMPLICATIONS: None. IMPLANTED HARDWARE: Exactech Equinoxe total shoulder system with a small superior buildup baseplate, a 40 mm glenosphere with locking screw, a 10 mm stem [address] into place impregnated with Vancomycin powder, a 10 mm stem, a 0 tray and a 0 x 40 mm polyethylene. REASON FOR PROCEDURE: This is a 74-year-old female with severe symptoms of her left shoulder. She had a previous right reverse shoulder done elsewhere. She has failed other conservative measures. We discussed the risks and benefits of surgery including infection, injury to nerves and vessels, fractures and dislocations, decreased mobility, need for later surgeries, that she is at higher risk for complications given her morbid obesity, among others. She has voiced understanding and agrees to proceed and consent was obtained. OPERATIVE REPORT: In the preoperative area, the correct site was marked. The patient was brought tothe operating room and correct side and site was verified. Preoperative antibiotics were given in the form of 3 grams of Ancef. General anesthesia was administered. Interscalene block had been performed in the preoperative area as an indwelling catheter. She was positioned on to the bed with the head of the bed up about 20 degrees. All bony prominences were well padded, double checked and PAS boots had previously been placed. Left arm was then prepped and draped in sterile fashion with alcohol and ChloraPrep. The arm was circumferentially wrapped with Ioban and a spider arm ferrer was used for positioning. The entire surgical team used surgical exhaust suits. Deltopectoral incision was made. Blunt dissection brought us down to subcutaneous tissue. She had alarge layer of subcutaneous fat before we came down to the fascia. We identified the cephalic vein,it was mobilized laterally with the deltoid. Subdeltoid adhesions were freed up. Subpectoral adhesions were freed up. Her tissue was of poor quality and was friable. We identified the conjoined tendon. We released the clavipectoral fascia up to the CA ligament. We identified the axillary nerve by tug test and protected it throughout the rest of the case. She had a complete tear of her rotator cuff anteriorly and superiorly. We placed retractors. We identified the biceps. It was then followed upthrough the groove. It was tenodesed to the superior border of the pectoralis with #1 Vicryl of [id number] sutures. We identified the three sisters along the inferior subscapularis and cauterized those. Also at the three sisters because they were friable, I placed a suture around them to ligate them at the most lateral aspect of them. We then elevated the remaining subscap off the anterior humerus and the inferior capsule. There were huge osteophytes off the inferior humeral head, which were removed with an osteotome. There were huge osteophytes off the posterior humerus, which were removed. We then dislocated the shoulder with extension, adduction, and external rotation. We resected the humeral head using an extramedullary guide. We took off an extra 2 mm. We then reamed and broached the canal up to a 10. Her bone was of moderate quality. We placed a protector plate over the top. We then retracted the humerus posterior to the glenoid. We excised the stump of the biceps and she had a very thickened abnormal labrum, which was excised. We then elevated the labrum and capsule offthe anterior and inferior glenoid and subperiosteally elevated. We had excellent exposure of the glenoid. I placed a tracker on the glenoid for navigation. We then obtained all of our points for navigation. Unfortunately, we did not get good registration. So we continued with our preoperative plan,which we had planned on the 3D model of the shoulder. We then placed our center drill hole and reamed the glenoid to concentric. We drilled our center cage for a superior buildup glenoid component. We impacted that with a good press-fit. We placed four peripheral screws. Each of them had an excellent purchase. Locking caps were placed. We then irrigated and then placed our 40 glenosphere with locking screw without difficulty. We then re- exposed the humerus. We trialed with different components.We had to set the humerus in a couple more millimeters to get it to reduce. Once we did, we had excellent range of motion and stability of the shoulder. There was no impingement. We then removed the trials. Given her bone quality, we decided to cement the proximal portion of the stem. We thoroughlyirrigated the canal. We placed Vancomycin within the cement. We mixed that cement. We then placed it and impacted into the proximal humerus and then placed it around the proximal stem and impacted the stem. As the cement hardened, we removed it. We placed our tray and 0 x 40 polyethylene. It was reduced a final time with excellent range of motion and stability. We then thoroughly irrigated. We placed the remaining Vancomycin powder deep within the wound. We closed the deltopectoral fascia with #1 Vicryl running suture, subcutaneous tissue was closed with 3-0 Vicryl, then Stratafix. We placed a Mepilex. She was placed into a sling. She was awoken from anesthesia and then taken to the recovery room in stable condition. Needle and sponge count was correct at the end of the case. Signature/Date: AN AVERY #[id number] /OMAR documented in this encounter Plan of Treatment [...] Procedure Name Priority Date/Time Associated Diagnosis Comments POCT GLUCOSE - NO DOCKED DEVICE Routine 04/01/2024 5:58 AM CDT RECONSTR TOTAL SHOULDER IMPLANT 03/31/2024 11:04 AM CDT SHOULDER ARTHRITIS Case Notes REGULAR OR TABLESPIDER ARM HOLDEREXACTECH- REP NOTIFIED BY OFFICEREP CONTACTED BY HOSPITAL documented in this encounter Results * (ABNORMAL) POCT glucose (04/01/2024 5:58 AM CDT) GLUCOSE POC 245(H) 70 - 109 04/01/2024 6:16 AM CDT [facility] 04/01/2024 5:58 AM CDT us An Avery MD POCT ORDERABLES - DEVIC E Final Result [facility] [address] [place] [address], [id number] documented in this encounter Visit Diagnoses Diagnosis Rotator cuff arthropathy, left- Primary S/P reverse total shoulder arthroplasty, left documented in this encounter Admitting Diagnoses Diagnosis S/P reverse total shoulder arthroplasty, left documented in this encounter Administered Medications Inactive Administered Medications - up to 3 most recent administrations Medication Order MAR Action Action Date Dose Rate Site acetaminophen (TYLENOL) tablet 1,000 mg 1,000 mg, Oral, Once, 1 dose, On Ermelinda 03/31/24 at 0945, Maximum dose of acetaminophen is 4000 mg from all sources in 24 hours. Do not give if the patient has had acetaminophen in the last 6 hours (including combination medications), Pre-Op Given 03/31/2024 10:35 AM CDT 1,000 mg acetaminophen (TYLENOL) tablet 500 mg 500 mg, Oral, Every 6 hours, 4 doses, First dose on Thu03/31/24 at 2115, Last dose on Thu04/01/24 at 1830, Maximum dose of acetaminophen is 4000 mg from all sources in 24 hours., Post-Op Given 04/01/2024 6:46 AM CDT 500 mg Given 04/01/2024 12:20 AM CDT 500 mg busPIRone (BUSPAR) tablet 15 mg 15 mg, Oral, Every 12 hours, First dose on Ermelinda 03/31/24 at 2130, Until Discontinued Given 04/01/2024 8:21 AM CDT 15 mg Given 04/01/2024 12:19 AM CDT 15 mg ceFAZolin (ANCEF) 3 g in sodium chloride 0.9 % 100 mL IVPB 3 g, Intravenous, at 400 mL/hr, Every 8 hours, 2 doses, First dose (after last modification) on Thu03/31/24 at 2130, Last dose on Thu04/01/24 at 0830 New Bag 04/01/2024 8:25 AM CDT 3 g 400 mL/hr New Bag 04/01/2024 12:29 AM CDT 3 g 400 mL/hr celecoxib (CeleBREX) capsule 200 mg 200 mg, Oral, 2 times daily, First dose on Thu04/01/24 at 0900, Until Discontinued, Post-Op Given 04/01/2024 8:22 AM CDT 200 mg chlorhexidine (PERIDEX) 0.12 % solution 15 mL 15 mL, Mouth/Throat, Once, 1 dose, On Ermelinda 03/31/24 at 0945, Patient to perform oral care first. Swish/gargle in mouth for 30 seconds, and then discard prior to going to surgery. If ventilated use saturated swab to clean oral cavity., Pre-Op Given 03/31/2024 10:37 AM CDT 15 mLs clopidogrel (PLAVIX) tablet 75 mg 75 mg, Oral, Daily, First dose on Thu04/01/24 at 0900, Until Discontinued, To hold for 03/27 Given 04/01/2024 8:21 AM CDT 75 mg dexamethasone (DECADRON) injection 4 mg 4 mg, Intravenous, Once, 1 dose, On Thu04/01/24 at 0800, If giving intravenously, administer slowly over 1-4 minutes., Post-Op Given 04/01/2024 8:24 AM CDT 4 mg docusate sodium (COLACE) capsule 100 mg 100 mg, Oral, 2 times daily, First dose on Thu03/31/24 at 2115, Until Discontinued, Post-Op Given 04/01/2024 8:22 AM CDT 100 mg Given 04/01/2024 12:23 AM CDT 100 mg ezetimibe (ZETIA) tablet 10 mg 10 mg, Oral, Daily, First dose on Thu04/01/24 at 0900, Until Discontinued Given 04/01/2024 8:24 AM CDT 10 mg famotidine (PEPCID) tablet 20 mg 20 mg, Oral, Once, 1 dose, On Thu03/31/24 at 0945, On admission, if they have not taken famotidine or any other GERD medication today., Pre-Op Given 03/31/2024 10:35 AM CDT 20 mg fluticasone-salmeterol (ADVAIR HFA) 230-21 MCG/ACT inhaler 2 puff 2 puff, Inhalation, 2 times daily, First dose on Thu03/31/24 at 2130, Until Discontinued, Following administration, rinse mouth with water after use (do not swallow) to reduce risk of oral candidiasis. Given 04/01/2024 6:47 AM CDT 2 puffs furosemide (LASIX) tablet 40 mg 40 mg, Oral, Daily, First dose on Thu04/01/24 at 0900, Until Discontinued Given 04/01/2024 8:23 AM CDT 40 mg ipratropium-albuterol (DUONEB) 0.5-2.5 (3) MG/3ML nebulizer solution 3 mL 3 mL, Nebulization, Once, 1 dose, On Thu03/31/24 at 1630 Given 03/31/2024 4:14 PM CDT 3 mLs lactated ringers infusion at 10 mL/hr, Intravenous, Continuous, Starting on Thu03/31/24 at 0945, Until Thu04/01/24 at 1520, Infuse at TKO rate, Pre-Op New Bag 03/31/2024 1:33 PM CDT New Bag 03/31/2024 11:24 AM CDT lactated ringers infusion at 100 mL/hr, Intravenous, Continuous, Starting on Thu03/31/24 at 2115, Until Thu04/01/24 at 1520, Post-Op New Bag 04/01/2024 12:26 AM CDT 100 m L/hr levothyroxine (SYNTHROID) tablet 112 mcg 112 mcg, Oral, Daily (levothyroxine), First dose on Thu04/01/24 at 0600, Until Discontinued, Avoid iron, calcium, and antacids within 4 hours of administration. Given 04/01/2024 6:46 AM CDT 112 mcg magnesium oxide (MAG-OX) tablet 400 mg 400 mg, Oral, Nightly at bedtime, First dose on Thu03/31/24 at 2130, Until Discontinued Given 04/01/2024 12:21 AM CDT 400 mg normal saline 0.9 % flush 3-10 mL 3-10 mL, Intravenous, Every 8 hours, First dose on Thu03/31/24 at 2115, Until Discontinued, Post-Op Given 04/01/2024 12:23 AM CDT 10 mLs nortriptyline (PAMELOR) capsule 25 mg 25 mg, Oral, Nightly at bedtime, First dose on Thu03/31/24 at 2130, Until Discontinued Given 04/01/2024 12:35 AM CDT 25 mg oxyCODONE immediate release (ROXICODONE) tablet 5 mg 5 mg, Oral, Once as needed, Moderate pain (Scale 4 - 7), 1 dose, Starting on Thu03/31/24 at 1427, Until Thu03/31/24 at 1507, When/if able to take medications PO Do not administer if patient is overly sedated, SpO2 LESS than 90%, or Respiratory Rate LESS than 12., PACU Given 03/31/2024 3:07 PM CDT 5 mg pantoprazole EC (PROTONIX) tablet 40 mg 40 mg, Oral, Daily, First dose on Thu04/01/24 at 0900, Until Discontinued, Do not break, chew, or crush. Given 04/01/2024 8:22 AM CDT 40 mg potassium chloride CR (KLOR-CON M) tablet 20 mEq 20 mEq, Oral, Every 24 hours, First dose on Thu04/01/24 at 0900, Until Discontinued, Do not chew, crush, or suck on tablet. May break in half. May dissolve whole tablet in 120 mL of water and drink immediately. Given 04/01/2024 8:23 AM CDT 20 mEq pregabalin (LYRICA) capsule 150 mg 150 mg, Oral, 3 times daily, First dose on Thu03/31/24 at 2130, Until Discontinued Given 04/01/2024 8:24 AM CDT 150 mg Given 04/01/2024 12:19 AM CDT 150 mg rOPINIRole (REQUIP) tablet 4 mg 4 mg, Oral, Nightly at bedtime, First dose on Thu03/31/24 at 2130, Until Discontinued Given 04/01/2024 12:19 AM CDT 4 mg spironolactone (ALDACTONE) tablet 25 mg 25 mg, Oral, Daily, First dose on Thu04/01/24 at 0900, Until Discontinued, HAZARDOUS MEDICATION: wear single chemotherapy approved gloves. Do not open or split. If crushing, use approved closed-system crushing device for hazardous medications. Given 04/01/2024 8:24 AM CDT 25 mg venlafaxine XR (EFFEXOR-XR) 24 hr capsule 150 mg 150 mg, Oral, Daily, First dose on Thu04/01/24 at 0900, Until Discontinued, Swallow capsule whole or it may be opened and the contents sprinkled on applesauce. Given 04/01/2024 8:23 AM CDT 150 mg documented in this encounter Active and Recently Administered Medications Times are shown in CDT. Scheduled Medication Order 03/30/2024 03/31/2024 04/01/2024 acetaminophen (TYLENOL) tablet 1,000 mg (COMPLETED) 1,000 mg, Oral, Once, 1 dose, On Thu24 at 0945, Maximum dose of acetaminophen is 4000 mg from all sources in 24 hours. Do not give if the patient has had acetaminophen in the last 6 hours (including combination medications), Pre-Op 1035 (Given - Provider: Alexandria Pineda RN) acetaminophen (TYLENOL) tablet 500 mg 500 mg, Oral, Every 6 hours, 4 doses, First dose on Ermelinda 03/31/24 at 2115, Last dose on Thu04/01/24 at 1830, Maximum dose of acetaminophen is 4000 mg from all sources in 24 hours., Post-Op 0020 (Given - Provid er: Desmond Ortega RN)0646 (Given - Provider: Desmond Ortega RN)1230 (Canceled Entry - Provider: Automatic Discharge Provider - Comment: Automatically canceled at discontinue of medication order) atorvastatin (LIPITOR) tablet 40 mg 40 mg, Oral, Nightly at bedtime, First dose on Thu04/01/24 at 2100, Until Discontinued busPIRone (BUSPAR) tablet 15 mg 15 mg, Oral, Every 12 hours, First dose on Ermelinda 03/31/24 at 2130, Until Discontinued 0019 (Given - Provid er: Desmond Ortega RN)0821 (Given - Provider: Phoebe Hernández RN) ceFAZolin (ANCEF) 3 g in sodium chloride 0.9 % 100 mL IVPB (COMPLETED) 3 g, Intravenous, at 400 mL/hr, Once, 1 dose, On Ermelinda 03/31/24 at 0945, Pre-Op 1146 (New Bag - Provider: Héctor Scales CRNA)1201 (Infusion Stop Time - Provider: Héctor Scales CRNA) ceFAZolin (ANCEF) 3 g in sodium chloride 0.9 % 100 mL IVPB (COMPLETED) 3 g, Intravenous, at 400 mL/hr, Every 8 hours, 2 doses, First dose (after last modification) on Ermelinda 03/31/24 at 2130, Last dose on Thu04/01/24 at 0830 0029 (New Bag - Provider: Desmond Ortega RN)0154 (Infusion Stop Time - Provider: Desmond Ortega RN)0825 (New Bag - Provider: Phoebe Hernández RN)0843 (Infusion Stop Time - Provider: Phoebe Henrández RN) celecoxib (CeleBREX) capsule 200 mg 200 mg, Oral, 2 times daily, First dose on Thu04/01/24 at 0900, Until Discontinued, Post-Op 08 (Given - Provid er: Phoebe Hernández RN) chlorhexidine (PERIDEX) 0.12 % solution 15 mL (COMPLETED) 15 mL, Mouth/Throat, Once, 1 dose, On Ermelinda 03/31/24 at 0945, Patient to perform oral care first. Swish/gargle in mouth for 30 seconds, and then discard prior to going to surgery. If ventilated use saturated swab to clean oral cavity., Pre-Op 1037 (Given - Provider: Alexandria Pineda RN) clopidogrel (PLAVIX) tablet 75 mg 75 mg, Oral, Daily, First dose on Thu04/01/24 at 0900, Until Discontinued, To hold for 03/27 08 (Given - Provid er: Phoebe Hernández RN) dexamethasone (DECADRON) injection 4 mg (COMPLETED) 4 mg, Intravenous, Once, 1 dose, On Thu04/01/24 at 0800, If giving intravenously, administer slowly over 1-4 minutes., Post-Op 0824 (Given - Provid er: Phoebe Hernández RN) docusate sodium (COLACE) capsule 100 mg 100 mg, Oral, 2 times daily, First dose on Ermelinda 03/31/24 at 2115, Until Discontinued, Post-Op 0023 (Given - Provid er: Desmond Ortega RN)08 (Given - Provider: Phoebe Hernández RN) ezetimibe (ZETIA) tablet 10 mg 10 mg, Oral, Daily, First dose on Thu04/01/24 at 0900, Until Discontinued 823 (Given - Provid er: Phoebe Hernández RN) famotidine (PEPCID) tablet 20 mg (COMPLETED) 20 mg, Oral, Once, 1 dose, On Ermelinda 03/31/24 at 0945, On admission, if they have not taken famotidine or any other GERD medication today., Pre-Op 1035 (Given - Provider: Alexandria Pineda RN) fluticasone-salmeterol (ADVAIR HFA) 230-21 MCG/ACT inhaler 2 puff 2 puff, Inhalation, 2 times daily, First dose on Thu03/31/24 at 2130, Until Discontinued, Following administration, rinse mouth with water after use (do not swallow) to reduce risk of oral candidiasis. 2337 (Not Given - Provider: Desmond Ortega RN - Reason: Patient/family declined) 0647 (Given - Provider: Desmond Ortega RN) furosemide (LASIX) tablet 40 mg 40 mg, Oral, Daily, First dose on Thu04/01/24 at 0900, Until Discontinued 0823 (Given - Provid er: Phoebe Hernández RN) ipratropium-albuterol (DUONEB) 0.5-2.5 (3) MG/3ML nebulizer solution 3 mL (COMPLETED) 3 mL, Nebulization, Once, 1 dose, On Thu03/31/24 at 1630 1614 (Given - Provider: Tonie Hollis RN) levothyroxine (SYNTHROID) tablet 112 mcg 112 mcg, Oral, Daily (levothyroxine), First dose on Thu04/01/24 at 0600, Until Discontinued, Avoid iron, calcium, and antacids within 4 hours of administration. 0646 (Given - Provid er: Desmond Ortega RN) magnesium oxide (MAG-OX) tablet 400 mg 400 mg, Oral, Nightly at bedtime, First dose on Thu03/31/24 at 2130, Until Discontinued 0021 (Given - Provid er: Desmond Ortega RN) normal saline 0.9 % flush 3-10 mL 3-10 mL, Intravenous, Every 8 hours, First dose on Thu03/31/24 at 2115, Until Discontinued, Post-Op 0023 (Given - Provid er: Desmond Ortega RN)0642 (Not Given - Provider: Desmond Ortega RN - Reason: Other)1315 (Canceled Entry - Provider: Automatic Discharge Provider - Comment: Automatically canceled at discontinue of medication order) nortriptyline (PAMELOR) capsule 25 mg 25 mg, Oral, Nightly at bedtime, First dose on Thu03/31/24 at 2130, Until Discontinued 0035 (Given - Provid er: Desmond Ortega RN) oxyCODONE immediate release (ROXICODONE) tablet 5 mg 5 mg, Oral, Once, 1 dose, On Thu03/31/24 at 1530 1530 (Canceled Entry - Provider: Automatic Discharge Provider - Comment: Automatically canceled at discontinue of medication order) pantoprazole EC (PROTONIX) tablet 40 mg 40 mg, Oral, Daily, First dose on Thu04/01/24 at 0900, Until Discontinued, Do not break, chew, or crush. 0822 (Given - Provid er: Phoebe Hernández RN) potassium chloride CR (KLOR-CON M) tablet 20 mEq 20 mEq, Oral, Every 24 hours, First dose on Thu04/01/24 at 0900, Until Discontinued, Do not chew, crush, or suck on tablet. May break in half. May dissolve whole tablet in 120 mL of water and drink immediately. 0823 (Given - Provid er: Phoebe Hernández RN) pregabalin (LYRICA) capsule 150 mg 150 mg, Oral, 3 times daily, First dose on Thu03/31/24 at 2130, Until Discontinued 18 (Given - Provid er: Desmond Ortega RN)823 (Given - Provider: Phoebe Hernández RN) propranolol (INDERAL) tablet 60 mg 60 mg, Oral, 2 times daily, First dose on Thu04/01/24 at 0900, Until Discontinued 0832 (Not Given - Provider: Phoebe Hernández RN - Reason: Patient/family declined) rOPINIRole (REQUIP) tablet 4 mg 4 mg, Oral, Nightly at bedtime, First dose on Thu03/31/24 at 2130, Until Discontinued 18 (Given - Provid er: Desmond Ortega RN) spironolactone (ALDACTONE) tablet 25 mg 25 mg, Oral, Daily, First dose on Thu04/01/24 at 0900, Until Discontinued, HAZARDOUS MEDICATION: wear single chemotherapy approved gloves. Do not open or split. If crushing, use approved closed-system crushing device for hazardous medications. 823 (Given - Provid er: Phoebe Hernández RN) venlafaxine XR (EFFEXOR-XR) 24 hr capsule 150 mg 150 mg, Oral, Daily, First dose on Thu04/01/24 at 0900, Until Discontinued, Swallow capsule whole or it may be opened and the contents sprinkled on applesauce. 0823 (Given - Provid er: Phoebe Hernández RN) Continuous Medication Order 03/30/2024 03/31/2024 04/01/2024 lactated ringers infusion at 10 mL/hr, Intravenous, Continuous, Starting on Ermelinda 03/31/24 at 0945, Until Thu04/01/24 at 1520, Infuse at TKO rate, Pre-Op 1124 (New Bag - Provider: Héctor Scales CRNA)1333 (New Bag - Provider: Héctor Scales CRNA)1417 (Anesthesia Volume Adjustment - Provider: Héctor Scales CRNA) lactated ringers infusion at 100 mL/hr, Intravenous, Continuous, Starting on Ermelinda 03/31/24 at 2115, Until Thu04/01/24 at 1520, Post-Op 0026 (New Bag - Provider: Desmond Ortega RN) ropivacaine (ON-Q PUMP) 0.2% nerve block pump 550 mL at 12 mL/hr, Nerve Block catheter, Continuous, Starting on Ermelinda 03/31/24 at 1230, Until Thu04/01/24 at 1520, Start rate at 12 mLs/hr continuous via ON-Q pump for 2 days. , PACU 1230 (Canceled Entry - Provider: Automatic Discharge Provider - Comment: Automatically canceled at discontinue of medication order) PRN Medication Order 03/30/2024 03/31/2024 04/01/2024 acetaminophen (TYLENOL) tablet 650 mg 650 mg, Oral, Every 4 hours PRN, Mild pain (Scale 1 - 3), Fever, Starting on Ermelinda 03/31/24 at 2048, Until Thu04/01/24 at 1520, Maximum dose of acetaminophen is 4000 mg from all sources in 24 hours., Post-Op albuterol sulfate HFA 108 (90 Base) MCG/ACT inhaler 2 puff 2 puff, Inhalation, Every 6 hours PRN, Shortness of breath, Starting on Ermelinda 03/31/24 at 2048, Until Thu04/01/24 at 1520 clonazePAM (klonoPIN) tablet 1 mg 1 mg, Oral, 2 times daily PRN, Seizures, Starting on Ermelinda 03/31/24 at 2047, Until Thu04/01/24 at 1520, HAZARDOUS MEDICATION: wear single chemotherapy approved gloves. Do not open or split. If crushing, use approved closed-system crushing device for hazardous medications. diphenhydrAMINE (BENADRYL) capsule 50 mg 50 mg, Oral, Every 6 hours PRN, Itching, Starting on Thu03/31/24 at 2047, Until Thu04/01/24 at 1520, Post-Op HYDROmorphone (DILAUDID) injection 0.2 mg 0.2 mg, Intravenous, Every 30 min PRN, Other, Breakthrough Pain, Starting on Ermelinda 03/31/24 at 2047, Until Thu04/01/24 at 1520, Administer slowly over at least 2-3 minutes., Post-Op normal saline 0.9 % flush 3-10 mL 3-10 mL, Intravenous, As needed, Line care, Starting on Ermelinda 03/31/24 at 2047, Until Thu04/01/24 at 1520, Post-Op ondansetron (ZOFRAN) injection 4 mg 4 mg, Intravenous, Every 6 hours PRN, Nausea, Vomiting, Starting on Ermelinda 03/31/24 at 2047, Until Thu04/01/24 at 1520, IV push over 2-5 minutes., Post-Op oxyCODONE immediate release (ROXICODONE) tablet 10 mg 10 mg, Oral, Every 4 hours PRN, Severe pain (Scale 8 - 10), Starting on Ermelinda 03/31/24 at 2047, Until Thu04/01/24 at 1520, Post-Op oxyCODONE immediate release (ROXICODONE) tablet 5 mg (COMPLETED) 5 mg, Oral, Once as needed, Moderate pain (Scale 4 - 7), 1 dose, Starting on Ermelinda 03/31/24 at 1427, Until Thu03/31/24 at 1507, When/if able to take medications PO Do not administer if patient is overly sedated, SpO2 LESS than 90%, or Respiratory Rate LESS than 12., PACU 1507 (Given - Provider: Marzena Grajeda RN) oxyCODONE immediate release (ROXICODONE) tablet 5 mg 5 mg, Oral, Every 4 hours PRN, Moderate pain (Scale 4 - 7), Starting on Ermelinda 03/31/24 at 2048, Until 04/01/24 at 1520, Post-Op vancomycin (VANCOCIN) injection (CANCELED) As needed, Starting on Ermelinda 03/31/24 at 1340, Until Ermelinda 03/31/24 at 1418, Intra-Op 1340 (Given - Provider: An Avery MD) documented in this encounter Care Teams Cosmetology Professor Relationship Specialty Start Date End Date Sebastien Sequeira MD [address] [place] [address] PCP - General INTERNAL MEDICINE 08/02/20 documented as of this encounter
--- OUTSIDE RECORDS SUMMARY | 2024-09-13 06:31 | XMS_ITS | Encounter Summary ---
Author Organization [facility] Address [facility] [facility] [place] [address] [place] [address] Care Team Providers Care Cardiac Cath Technician Name Role Phone Sebastien Sequeira MD Primary Care Provider [phone] Encounter Details Date Type Department Care Team (Latest Contact Info) Description 08/25/2024 Travel Social History Tobacco Use Types Packs/Day Years Used Date Smoking Tobacco: Never Smokeless Tobacco: Never Alcohol Use Standard Drinks/Week Comments Not Currently 0 (1 standard drink = 0.6 oz pur e alcohol) [facility] Utilities Answer Date Recorded In the past 12 months has e [employer], gas, oil, or water [employer] threatened to shut off services in your [...] any time in the past [address] [facility], were you homeless or living in a half-way (including now)? No 03/31/2024 Comments No Sex and Gender Information Value Date Recorded Sex Assigned at Not on file Legal Sex Female 2:03 AM CDT Gender Identity Not on file Sexual Orientation Not on file documented as of this encounter Functional Status * Are you deaf or do you have serious difficulty hearing Answer Date of Assessment Author Status No 08/04/2024 6:57 AM Rai Jacques RN Active * Are you blind or do you have serious difficulty seeing, even when wearing glasses? Answer Date of Assessment Author Status No 08/04/2024 6:57 AM Rai Jacques RN Active * Do you have serious [...] on filedocumented in this encounter Care Teams Cardiac Cath Technician Relationship Specialty Start Date End Date Sebastien Sequeira MD [address] [place] [address] PCP - General INTERNAL MEDICINE 08/02/20 documented as of this encounter
--- OUTSIDE RECORDS SUMMARY | 2024-09-13 06:31 | XMS_ITS | Encounter Summary ---
Author Organization [facility] Address Critical access hospital6 [place] [address] [place] [address] Care Team Providers Care Sld Teacher Name Role Phone Sebastien Sequeira MD Primary Care Provider Reason for Visit * Reason Comments Lab (SCAN) Encounter Details Date Type Department Care Team (Late st Contact Info) Description 07/28/2024 Scan [facility] [employer] [facility] [address] [place] [address] Scanned, Documents Lab (SCAN) Social History Tobacco Use Types Packs/Day Years Used Date Smoking Tobacco: Never Smokeless Tobacco: Never Alcohol Use Standard Drinks/Week Comments Not Currently 0 (1 standard drink = 0.6 oz pur e alcohol) [facility] Utilities Answer Date Recorded In the past 12 months has e [employer], gas, oil, or water [employer] threatened to shut off services in your [...] any time in the past 12 m [facility], were you homeless or living in a jail (including now)? No 03/31/2024 Comments No Sex [...] PM CANDELARIOT Desmond Ortega RN Active * Are you blind or do you have serious difficulty seeing, even when wearing glasses? Answer Date of Assessment Author Status Yes 03/31/2024 11:22 PM CANDELARIOT Desmond Ortega RN Active * Do you have serious [...] Procedure Name Priority Date/Time Associated Diagnosis Comments OUTSIDE LAB (SCAN ORDER) Routine 07/28/2024 12:00 AM WELFARE CENTRE MANAGER documented in this encounter Results * OUTSIDE LAB (07/28/2024 12:00 AM WELFARE CENTRE MANAGER) 07/28/2024 [facility] Scanned SCANNING Final Resul t [facility] documented in this encounter Visit Diagnoses Not on filedocumented in this encounter Care Teams Sld Teacher Relationship Specialty Start Date End Date Sebastien Sequeira MD [address] [place] [address] PCP - General INTERNAL MEDICINE 08/02/20 documented as of this encounter
--- OUTSIDE RECORDS SUMMARY | 2024-09-13 06:31 | XMS_ITS | Encounter Summary ---
Author Organization [facility] Address [facility] [place] [address] [place] [address] Care Team Providers Care Seal Mixer Name Role Phone Sebastien Sequeira MD Primary Care Provider [phone] Encounter Details Date Type Department Care Team (Latest Contact Info) Description 08/18/2023 10:30 AM POLARITY TESTER - 08/18/2023 11:59 PM [facility] Hospital Encounter [facility] [address] [place] [address] Gustavo So MD [address] [place], [place] [id number] Discharge Disposition: Home or Self Care (Routine [...] Larson RN Active documented in this encounter Medications at Time of Discharge clonazePAM (KLONOPIN) 1 MG tablet Take 1 [...] mcg total) by mouth every morning. 05/27/2023 nortriptyline 25 MG capsule Take 1 capsule [...] 2 in AM, 1 at bedtime. 06/05/2022 rOPINIRole 2 MG tablet Take 2 tablets (4 mg total) by mouth nightly at bedtime. 01/20/2020 rosuvastatin 20 MG tablet Take 1 tablet (20 mg total) by mouth nightly at bedtime. at bedtime. 10/18/2020 Semaglutide (OZEMPIC, 0.25 OR 0.5 MG/DOSE, SC) Inject 1 mg into the skin weekly. Hold x 7 days. Last dose 08/20 to hold until after surgery 06/20/2021 venlafaxine XR 150 MG 24 hr capsule Take 1 capsule (150 mg total) by mouth every morning. 05/24/2020 busPIRone 15 MG tablet Take 1 tablet (15 mg total) by mouth daily as needed. 11/26/2020 03/25/2024 metoprolol tartrate (LOPRESSOR) 50 MG tablet Take 1.5 tablets (75 mg total) by mouth 2 (two) times daily. 06/10/2023 03/25/2024 omega-3 acid (LOVAZA) 1 GM capsule Take 1 capsule (1 g total) by mouth daily. 05/23/2023 07/29/2024 spironolactone 50 MG tablet Take 1 tablet (50 mg total) by mouth daily. 03/31/2024 traMADol (ULTRAM) 50 MG tabletIndications :Chronic Pain Take 1 tablet (50 mg total) by mouth every 6 (six) hours as needed for Pain. Indications: Chronic Pain 15 tablet 08/27/2022 03/25/2024 documented as of this encounter Plan of Treatment Not on file documented as of this encounter Goals Goal Patient Goal Type Associated Problems Recent Progress Patient-Stated? Author Safety - able to safely ambulate at home; tripping hazards removed from the home Krystal Boyer, RN Note: Pt wants to go home safely with new walker. Pt made aware that therapy will work with her on safety. documented as of this encounter Procedures Procedure Name Priority Date/Time Associated Diagnosis Comments XR SHOULDER RT MIN 2V Routine 08/18/2023 12:12 PM POLARITY TESTER Right shoulder pain, unspecified chronicity XR SHOULDER LT MIN 2V Routine 08/18/2023 12:12 PM POLARITY TESTER Osteoarthritis of left glenohumeral joint documented in this encounter Results * XR SHOULDER LT MIN 2V (08/18/2023 12:12 PM POLARITY TESTER) Anatomical Region Laterality Modality Shoulder Radiographic Charlotte ging 08/18/2023 3:30 PM POLARITY TESTER Impressions 08/18/2023 3:31 PM POLARITY TESTER IMPRESSION: Arthritic changes left shoulder. Ordered By: GUSTAVO SO Interpreted By: Gary Sandoval MD, 08/18/2023 3:30 PM Narrative 08/18/2023 3:31 PM POLARITY TESTER 08/18/2023, 10:17 AM. HISTORY: Left shoulder pain. [...] By: Gary Sandoval MD, 08/18/2023 3:30 PM us Gustavo So MD GENERAL IMAGING Final Result * XR SHOULDER RT MIN 2V (08/18/2023 12:12 PM POLARITY TESTER) Anatomical Region Laterality Modality Shoulder Radiographic Charlotte ging 08/18/2023 3:20 PM POLARITY TESTER Impressions 08/18/2023 3:22 PM POLARITY TESTER IMPRESSION: No acute bony abnormality. Findings similar to study 07/09/2022. Ordered By: GUSTAVO SO Interpreted By: Gary Sandoval MD, 08/18/2023 3:20 PM Narrative 08/18/2023 3:22 PM POLARITY TESTER 08/18/2023, 10:13 AM. HISTORY: Right shoulder pain. Recheck arthroplasty. EXAM: 3 views of the right shoulder. Correlation to imaging 07/09/2022. FINDINGS: Reverse arthroplasty right glenohumeral joint. The glenoid component prosthesis is anchored to the glenoid the scapula by orthopedic screws. The stem of the humeral component prosthesis is central medullary canal proximal humerus. The articular surface of the humeral component prosthesis is aligned to the globe of the glenoid component prosthesis. No fracture. No gross bone destruction. Slight penciling in the contour the distal lateral margin of the clavicle adjacent to the acromioclavicular joint, question previous osteotomy, presumably for spur resection. Procedure Note Gary Sandoval MD - 08/18/2023 08/18/2023, 10:13 AM. HISTORY: Right shoulder pain. Recheck arthroplasty. EXAM: 3 views of the right shoulder. Correlation to imaging 07/09/2022. FINDINGS: Reverse arthroplasty right glenohumeral joint. The glenoidcomponent prosthesis is anchored to the glenoid the scapula by orthopedicscrews. The stem of the humeral component prosthesis is central medullarycanal proximal humerus. The articular surface of the humeral componentprosthesis is aligned to the globe of the glenoid component prosthesis. No fracture. No gross bone destruction. Slight penciling in the contourthe distal lateral margin of the clavicle adjacent to theacromioclavicular joint, question previous osteotomy, presumably for spurresection. IMPRESSION: No acute bony abnormality. Findings similar to study 07/09/2022. Ordered By: GUSTAVO SO Interpreted By: Gary Sandoval MD, 08/18/2023 3:20 PM Gustavo So MD GENERAL IMAGING Final Result documented in this encounter Visit Diagnoses Diagnosis Right shoulder pain, unspecified chronicity Osteoarthritis of left glenohumeral joint documented in this encounter Care Teams Seal Mixer Relationship Specialty Start Date End Date Sebastien Sequeira MD [address] [place] [address] PCP - General INTERNAL MEDICINE 08/02/20 documented as of this encounter
--- OUTSIDE RECORDS SUMMARY | 2024-09-13 06:31 | XMS_ITS | Encounter Summary ---
Author Organization [facility] Address [facility] [place] [address] [place] [address] Care Team Providers Care Hoop Bending Machine Operator Name Role Phone Sebastien Sequeira MD Primary Care Provider [phone] Reason for Visit * Auth/Cert (Routine) Specialty Diagnoses / Procedures Referred By Contdennis t Referred To Contact Diagnoses CARPAL AND CUBITAL TUNNEL SYNDROME Procedures REVISE MEDIAN N/CARPAL TUNNEL SURG REVISE ULNAR NERVE AT ELBOW REVISE MEDIAN N/CARPAL TUNNEL SURG RELEASE CARPAL TUNNEL IN SITU ULNAR NERVE RELEASE An Avery MD [address] [place] [address] Phone: tel: fax: Referral ID Status Reason Start Date Expiration Date Visits Re quested Visits Authorized [id number] 1 1 Encounter Details Date Type Department Care Team (Late st Contact Info) Description 08/04/2024 6:14 AM COVERSTITCH ELASTIC ATTACHER - 08/04/2024 11:05 AM [facility] Hospital Encounter [facility] [address] [place] [address] An Avery MD [address] [place] [id number] Discharge Disposition: Home or Self Care (Routine Discharge) Social History Tobacco Use Types Packs/Day Years Used Date Smoking Tobacco: Never Smokeless Tobacco: Never Alcohol Use Standard Drinks/Week Comments Not Currently 0 (1 standard drink = 0.6 oz pur e alcohol) [facility] Utilities Answer Date Recorded In the past 12 months has th e electric, gas, oil, or water company threatened to shut off services in your [...] Sign Reading Time Taken Comments Blood Pressure 106/54 08/04/2024 10:53 AM COVERSTITCH ELASTIC ATTACHER Pulse 71 08/04/2024 10:46 AM COVERSTITCH ELASTIC ATTACHER Temperature 35.4 ??C (95.7 ??F) 08/04/2024 10:[address] Respiratory Rate 18 08/04/2024 10:46 AM COVERSTITCH ELASTIC ATTACHER Oxygen Saturation 94% 08/04/2024 10:46 AM COVERSTITCH ELASTIC ATTACHER Inhaled Oxygen Concentration - - Weight 123.8 kg (273 lb) 08/04/2024 7:14 AM COVERSTITCH ELASTIC ATTACHER Height 172.7 cm (5' 8 ) 08/04/2024 7:14 AM COVERSTITCH ELASTIC ATTACHER Body Mass Index 41.51 08/04/2024 7:14 AM COVERSTITCH ELASTIC ATTACHER documented in this encounter Functional Status * Are you deaf or do you have serious difficulty hearing Answer Date of Assessment Author Status No 08/04/2024 6:57 AM COVERSTITCH ELASTIC ATTACHER Rai Holt RN Active * Are you blind or do you have serious difficulty seeing, even when wearing glasses? Answer Date of Assessment Author Status No 08/04/2024 6:57 AM COVERSTITCH ELASTIC ATTACHER Rai Holt RN Active * Do you [...] 11:22 PM CANDELARIOT Desmond Ortega RN Active documented as of this encounter Mental Status * Because of a physical, mental, or emotional condition, do you have serious difficulty concentrating, remembering, or making decisions? Answer Entry Date Author Status No 03/31/2024 11:22 PM CANDELARIOT Desmond Ortega RN Active documented in this encounter Discharge Instructions * Discharge Instructions* Krystal Scott RN - 08/04/2024 10:37 AM COVERSTITCH ELASTIC ATTACHER You had Hydrocodone-acetaminophen at 10:15 am.... RSTITCH ELASTIC ATTACHER * Attachments The following attachments cannot be sent through Care Everywhere. * General Anesthesia Discharge Instructions (Italian) * Carpal tunnel surgery ??? Discharge instructions (Italian) * How to Prevent Surgical Site Infections (Italian) * ARM SLING INSTRUCTIONS (CHINESE) documented in this encounter Medications at Time [...] during recuperation were discussed with the patient/family/personal mechanical service representative. Reasonable alternatives to the patient's proposed procedure/surgery including benefits, risks, and side effects related to the alternatives and the risks related to not receiving the proposed care were also discussed with the patient/family/personal mechanical service representative. Questions were answered and the patient/family/personal mechanical service representative verbalized understanding and desires to proceed. Cosigned by An Avery MD at 08/04/2024 10:59 AM COVERSTITCH ELASTIC ATTACHER RSTITCH ELASTIC ATTACHER RSTITCH ELASTIC ATTACHER Associated attestation - An Avery MD - 08/04/2024 10:59 AM COVERSTITCH ELASTIC ATTACHER Teaching Physician - IAN MD, performed a History and Physical examination of the patient and discussed the management with the resident. I reviewed the Resident's note and agreewith the findings and plan of care, except as I have documented. Teaching physician supervised resident in person. Source Note - [facility], [facility] - 07/28/2024 12:01 AM COVERSTITCH ELASTIC ATTACHER documented in this encounter OR Notes * Op Note - An Avery MD - 08/04/2024 11:05 AM CST OPERATIVE REPORT PATIENT: [place] PRE-OP DIAGNOSIS: Right carpal tunnel syndrome and cubital tunnel syndrome POST-OP DIAGNOSIS: Right carpal tunnel syndrome and cubital tunnel syndrome PROCEDURE PERFORMED: Right carpal tunnel release and in-situ ulnar nerve release SURGEON: An Avery MD TELECOMMUNICATIONS FIELD TECHNICIAN: DELICIA Perez, Jesus Mckeon MD ANESTHESIA: General [...] prepped and draped in sterile fashion with Hibiclens. Again time-out was called and verified. The [...] correct at the end of the case RSTITCH ELASTIC ATTACHER * Brief Op Note - An Avery MD - 08/04/2024 9:27 AM CST [facility] Brief Op HSHSRELEASE CARPAL TUNNEL, IN SITU ULNAR NERVE RELEASE Procedure Note [place]ma [place] 08/04/2024 0830 Procedure(s) (LRB): RELEASE CARPAL TUNNEL (Right) IN SITU ULNAR NERVE RELEASE (Right) Surgeon(s): MD Jose Roberto Krause MD Return Clerk: Private Bridge Repairer: Toni Fenton RN Anesthesia: General Pre-Op Diagnosis: CARPAL AND CUBITAL TUNNEL SYNDROME Post-Op Diagnosis: Same Findings: see dictated op note Estimated Blood Loss: Minimal Specimens: None AN AVERY MD Date: 08/04/2024 Time: 9:27 AM RSTITCH ELASTIC ATTACHER documented in this encounter Plan of Treatment Not on file documented as of this encounter Goals Goal Patient Goal Type Associated Problems Recent Progress Patient-Stated? Author Safety - able to safely ambulate at home; tripping hazards removed from the home General Krystal [place] RN Note: Pt wants to go home safely with new walker. Pt made aware that therapy will work with her on safety. documented as of this encounter Procedures Procedure Name Priority Date/Time Associated Diagnosis Comments RELEASE ULNAR NERVE 08/04/2024 8 :13 AM COVERSTITCH ELASTIC ATTACHER CARPAL AND CUBITAL TUNNEL SYNDROME Case Notes HAND TABLE REVISE MEDIAN N/CARPAL TUNNEL SURG 08/04/2024 8:13 AM COVERSTITCH ELASTIC ATTACHER CARPAL AND CUBITAL TUNNEL SYNDROME Case Notes HAND TABLE documented in this encounter Visit Diagnoses Not on filedocumented in this encounter Administered Medications Inactive Administered Medications - up to 3 most recent administrations Medication Order MAR Action Action Date Dose Rate Site HYDROcodone-acetaminophen (NORCO) 5-325 MG tablet 1 tablet 1 tablet, Oral, Once as needed, Mild pain (Scale 1 - 3), 1 dose, Starting on Ermelinda 08/04/24 at 0951, Until Ermelinda 08/04/24 at 1016, Do not administer if patient is overly sedated, SpO2 less than 90%, or Respiratory Rate less than 12., PACU Given 08/04/2024 10:16 AM COVERSTITCH ELASTIC ATTACHER 1 tablet documented in this encounter Active and Recently Administered Medications Times are shown in COVERSTITCH ELASTIC ATTACHER. Scheduled Medication Order 08/02/2024 08/03/2024 08/04/2024 ceFAZolin (ANCEF) 3 g in sodium chloride 0.9 % 100 mL IVPB (COMPLETED) 3 g, Intravenous, at 400 mL/hr, Once, 1 dose, On Ermelinda 08/04/24 at 0715, Pre-op, Pre-Op 0842 (New Bag - Prov ider: Dayami Núñez CRNA)0857 (Infusion Stop Time - Provider: Dayami Núñez CRNA) PRN Medication Order 08/02/2024 08/03/2024 08/04/2024 BUpivacaine-EPINEPHrine (PF) 0.25% -[id number] injection (CANCELED) As needed, Starting on Ermelinda [...] RN) documented in this encounter Care Teams Hoop Bending Machine Operator Relationship Specialty Start Date End Date Sebastien Sequeira MD [address] [place] [address] PCP - General INTERNAL MEDICINE 08/02/20 documented as of this encounter
--- OUTSIDE RECORDS SUMMARY | 2024-09-13 06:31 | XMS_ITS | Encounter Summary ---
Author Organization [facility] Address [address] [place] [address]. [place] [address] [place] [address] Care Team Providers Care Marble Installer Supervisor Name Role Phone Sebastien Sequeira MD Primary Care Provider [phone] Reason for Referral * Consultation (Routine) - Closed Specialty Diagnoses / Procedures Referred By Aaron rai Referred To Contact ORTHOPAEDICS Diagnoses Osteoarthritis of left glenohumeral joint Procedures OFFICE/OUTPATIENT NEW LOW MDM 30-44 MINUTES OFFICE/OUTPT VISIT,NEW,LEVL IV OFFICE/OUTPT VISIT,NEW,LEVL V OFFICE/OUTPT VISIT,EST,LEVL III OFFICE/OUTPT VISIT,EST,LEVL IV OFFICE/OUTPT VISIT,EST,LEVL V Adele Garcia FNP-BC [address] [place] [address] [place] [address] Phone: tel: fax: Referral ID Status Reason Start Date Expiration Date V isits Requested Visits Authorized [id number] Closed Specialty Services 12/16/2023 12/15/2024 1 1 Scheduling Instructions Pleae refer to Dr Beckwith at [facility] Encounter Details Date Type Department Care Team (Late st Contact Info) Description 12/16/2023 Orders Only [facility] [address] [place] [address] Adele Garcia, [facility]- [address] [facility], [facility] Social History Tobacco Use Types Packs/Day Years [...] documented in this encounter Plan of Treatment Scheduled Referrals Name Type Priority Associated Diagnoses Orde r Schedule Ambulatory referral to Orthopedics Referral Routine Osteoarthritis of left glenohumeral joint Ordered: 12/16/2023 documented as of this encounter Goals Goal Patient Goal Type Associated Problems Recent Progress Patient-Stated? Author Safety - able to safely ambulate at home; tripping hazards removed from the home General Krystal [place], RN Note: Pt wants to go home safely with new walker. Pt made aware that therapy will work with her on safety. documented as of this encounter Visit Diagnoses Diagnosis Osteoarthritis of left glenohumeral joint- Primary documented in this encounter Care Teams Marble Installer Supervisor Relationship Specialty Start Date End Date Sebastien Sequeira MD [address] [place] [id number] PCP - General INTERNAL MEDICINE 08/02/20 documented as of this encounter
--- OUTSIDE RECORDS SUMMARY | 2024-09-13 06:31 | XMS_ITS | Encounter Summary ---
Author Organization [facility] Address [address] [place] [address]. [place] [address] [place] [address] Care Team Providers Care Aircraft Seat Upholsterer Name Role Phone Sebastien Sequeira MD Primary Care Provider [phone] Reason for Visit * Reason Comments Shoulder Pain LEFT Encounter Details Date Type Department Care Team (Late st Contact Info) Description 12/10/2023 9:15 AM CDT Office Visit [facility] [place] [id number] Adele Garcia, [facility]- [address] [facility] [place] [id number] Shoulder Pain (LEFT) Social History Tobacco Use Types Packs/Day Years [...] - - Weight 133.8 kg (295 lb) 12/10/2023 9:11 AM CDT Height 177.8 cm (5' 10 ) 12/10/2023 9:11 AM CDT Body Mass Index 42.33 12/10/2023 9:11 AM CDT documented in this encounter Functional Status [...] Progress Notes * Debbi Rodriguez RN - 12/10/2023 9:15 AM CDT Gilma is a 73-year-old female who presents for Shoulder Pain (LEFT) Patient here in clinic today for complaints of LEFT shoulder pain and wants to discuss surgery options with possibly a referral to Dr Avery at [facility]. States that she has pain to top of LEFT shoulder with radiation down to fingertips. States the LEFT shoulder locks up and she drops items frequently. She has night pain. States she has numbness and tingling most of the time from the LEFT shoulder to the fingertips. Denies use of ice or heat, she does use a tens unit at times. States she takes Tylenol ES and Advil with minimal relief. She is RIGHT hand dominant. She ambulates using a cane. States she had a glenohumeral injection on 08/18/23 which only gave her 3-4 weeks of relief. Denies having any recent therapy for LEFT shoulder. No additional nursing task documentation needed. Vitals: 12/10/23 0911 Weight: 133.8 kg (295 lb) Height: 1.778 m (5' 10 ) Current Outpatient Medications Medication Sig albuterol sulfate HFA 108 (90 Base) MCG/ACT inhaler Inhale 2 puffs into the lungs every 6 (six) hours as needed. BREO ELLIPTA 200-25 MCG/ACT inhaler Inhale 1 puff into the lungs daily. busPIRone 15 MG tablet Take 1 tablet [...] tablet (50 mg total) by mouth daily. venlafaxine XR 150 MG 24 hr capsule Take 1 capsule (150 mg total) by mouth daily. traMADol (ULTRAM) 50 MG tablet Take 1 tablet (50 mg total) by mouth every 6 (six) hours as needed for Pain. Indications: Chronic Pain (Patient not taking: Reported on 12/10/2023) Past Surgical History: Procedure Laterality Date ARTHROSCOPY [...] with a + 3 polyethylene spacer Allergies Topiramate, Contrave [naltrexone-bupropion hcl er], Zanaflex [tizanidine], and Statins [x] Total Xuau-gj-Ttwb Assessment Time: 0-15 minutes Additional Contributory Factors NONE * Adele Garcia, TYPE COPYIST-BC - 12/10/2023 9:15 AM CDT Chief Complaint: Shoulder Pain (LEFT) History of Present Illness: Gilma Mills is a 73-year-old female who presents to the office for Shoulder Pain (LEFT) Patient here in clinic today for complaints of LEFT shoulder pain and wants to discuss surgery options with possibly a referral to Dr Avery at [facility]. States that she has pain to top of LEFT shoulder with radiation down to fingertips. States the LEFT shoulder locks up and she drops items frequently. She has night pain. States she has numbness and tingling most of the time from the LEFT shoulder to the fingertips. Denies use of ice or heat, she does use a tens unit at times. States she takes Tylenol ES and Advil with minimal relief. She is RIGHT hand dominant. She ambulates using a cane. States she had a glenohumeral injection on 08/18/23 which only gave her 3-4 weeks of relief. Denies having any recent therapy for LEFT shoulder. ROS: See HPI for pertinent positives Problem [...] Past Medical History: Diagnosis Date Acid reflux Asthma (HHS/HCC) COVID-19 vaccine series completed see media Depression with anxiety Disease of thyroid gland Fibromyalgia Hypertension Hypothyroidism, unspecified Migraines Mixed hyperlipidemia Stroke (CMS/HCC HHS/HCC) Pt had no symptoms [...] Drug use: Never Medications: Current Outpatient Medications: albuterol sulfate HFA 108 (90 Base) MCG/ACT inhaler, Inhale 2 puffs into the lungs every 6 (six) hours as needed., Disp: , Rfl: BREO ELLIPTA 200-25 MCG/ACT inhaler, Inhale 1 puff into the lungs daily., Disp: , Rfl: busPIRone 15 MG tablet, Take 1 tablet [...] total) by mouth daily., Disp: , Rfl: venlafaxine XR 150 MG 24 hr capsule, Take 1 capsule (150 mg total) by mouth daily., Disp: , Rfl: traMADol (ULTRAM) 50 MG tablet, Take 1 tablet (50 mg total) by mouth every 6 (six) hours as needed for Pain. Indications: Chronic Pain (Patient not taking: Reported on 12/10/2023), Disp: 15 tablet, Rfl: 0 Review of patient's allergies indicates: Allergen Reactions Topiramate Nausea and Vomiting and Hyperactive Contrave [Naltrexone-Bupropion Hcl Er] Dizziness Zanaflex [Tizanidine] Other (see comment) hypotension Statins Rash Objective: Body mass index is 42.33 kg/m??. Last Recorded Weight 12/10/23 0911 Weight: 133.8 kg (295 lb) Physical exam: Constitutional: Alert and in no acute distress. Neurological: The patient was oriented to person, place, and time. Eyes: The sclera and conjunctiva were normal ENT: Hearing was normal. Neck: The appearance of the neck was normal. Cardiovascular: Normal pulses. Pulmonary: No respiratory distress. Skin: No injuries or skin lesion. Musculoskeletal: Exam of left shoulder today demonstrates tenderness posterior and anterior shoulder with palpation, overall good cuff strength, pain with cuff resistance and resisted abduction, overall good shoulder range of motion, positive Lundberg, negative speeds, neurovascularly intact. Results: X-ray of left shoulder from 08-18-2023 reviewed and reveals severe glenohumeral osteoarthritis with moderate AC joint osteoarthritis and no acute or healing bony injury or dislocation appreciated. Assessment: Encounter Diagnose(s) ICD-10-CM SNOMED CT(R) 1. Osteoarthritis of left glenohumeral joint M19.012 OSTEOARTHRITIS OF LEFT GLENOHUMERAL JOINT Plan: Patient has had previous injections to her left shoulder with the last on 08-18-2023 with only short-term relief in her symptoms. Patient is wanting to proceed with a left total shoulder arthroplasty.She has had her right shoulder replaced previously and did well postoperatively. She is aware that Dr. So our current surgeon is leaving the practice and will not be able to perform her surgery.We will go ahead and send a referral to Dr. Avery's office at [facility] to get her an appointment to discuss proceeding with a left total shoulder arthroplasty. We will push imaging up to [facility] for his viewing. I did discuss with patient that we will hold off on injections at this time in case he is able to get her in soon it will not prolong time before surgery. Patient voices understanding andwe will notify patient of her appointment date and time. Activity as tolerated. She will follow-up with our office as needed. Follow up: Return if symptoms worsen or fail to improve. MUKESH FLORES documented in this encounter Plan of Treatment [...] Primary documented in this encounter Care Teams Aircraft Seat Upholsterer Relationship Specialty Start Date End Date Sebastien Sequeira MD [address] [place] [address] PCP - General INTERNAL MEDICINE 08/02/20 documented as of this encounter
--- OUTSIDE RECORDS SUMMARY | 2024-09-13 06:31 | XMS_ITS ---
Author Organization [facility] [employer] [facility] Address [address] [facility] [address] [place] [address] Care Team Providers Care Professor Of Geology Name Role Phone Fabby LICONA [facility] Primary Care Provider Sade Camacho Unavailable [phone] REASON FOR VISIT med refill request Medications Medication SIG (Take, Route, Frequency, Duration) Notes Start Date End Date Status busPIRone HCl 15 MG 1 tablet Oral Twice a day for 90 days 10/30/2024 Active Venlafaxine HCl ER 150 MG 1 capsule ever y motning Oral Once a day for 90 days Active Social History Sex Assigned At : Social History Observation Description Sex Assigned At Female Encounters Encounter Location Date Provider Diagnosis [facility] [place] [facility] [address] [facility] [address] [place] [address] 08/01/2024 Sade Madera Generalized anxiety disorder F41.1 and Major depressive disorder, recurrent, moderate F33.1 Assessments Encounter Date Diagnosis (ICD Code) Assessment Notes Treatment Notes Treatment Clinical Notes Section Notes 08/01/2024 Generalized anxiety disorder (ICD-10 - F41.1) 08/01/2024 Major depressive disorder, recurrent, moderate (ICD-10 - F33.1) Plan Of Treatment Medication Medication Name Sig Start Date Stop Date Notes busPIRone HCl 15 MG 1 tablet Oral Twice a day for 90 days 10/30/2024 Venlafaxine HCl ER 150 MG 1 capsule ever y motning Oral Once a day for 90 days Next Appt Details Provider Name:Sade Madera, 10/10/2024 10:30:00 AM, [address], [address], [address], Progress Notes * KEEGAN ALVES KDOB:1950 (74 yo F)Acc No.[id number]:08/01/2024 Patient:?KEEGAN ALVES :1950???Age:74 Y???Sex:Female Address:[address] [place] [address] [facility] [address] * Refills? Refill busPIRone HCl Tablet, 15 MG, Oral, 180 Tablet, 1 tablet, Twice a day, 90 days, Refills=0 Refill Venlafaxine HCl ER Capsule Extended Release 24 Hour, 150 MG, Oral, 90 Capsule, 1 capsule every motning, Once a day, 90 days, Refills=0 * true * Date:? Generated for Maximus mcdaniel/Ileana/Madelynitting on:?09/13/2024 06:30 AM JEWEL BEARING BROACHER
--- OUTSIDE RECORDS SUMMARY | 2024-09-13 06:31 | XMS_ITS | Encounter Summary ---
Author Organization [facility] Address [facility] [place] [address] [place] [address] Care Team Providers Care Video Production Engineer Name Role Phone Sebastien Sequeira MD Primary Care Provider [phone] Reason for Visit * Reason Comments Lab (SCAN) Encounter Details Date Type Department Care Team (Late st Contact Info) Description 01/28/2024 Scan [facility] [employer] [facility] [address] [place] [address] Scanned, [facility] (SCAN) Social History Tobacco Use Types Packs/Day Years Used Date Smoking Tobacco: Never Smokeless Tobacco: Never Alcohol Use Standard Drinks/Week Comments Not Currently 0 (1 standard drink = 0.6 oz pur e alcohol) [facility] Utilities Answer Date Recorded In the past 12 months has e [employer], [employer], oil, or water [employer] threatened to shut off services in your [...] any time in the past 12 m onths, were you homeless or living in a chcf (including now)? No 03/31/2024 Comments No Sex [...] Degroot RN Active documented in this encounter Plan [...] Diagnosis Comments OUTSIDE LAB (SCAN ORDER) Routine 01/28/2024 12:00 AM CDT documented in this encounter Results * OUTSIDE LAB (01/28/2024 12:00 AM CDT) 01/28/2024 [facility] Scanned SCANNING Final Resul t [facility] documented in this encounter Visit Diagnoses Not on filedocumented in this encounter Care Teams Video Production Engineer Relationship Specialty Start Date End Date Sebastien Sequeira MD [address] [place] [id number] PCP - General INTERNAL MEDICINE 08/02/20 documented as of this encounter
--- OUTSIDE RECORDS SUMMARY | 2024-09-13 06:31 | XMS_ITS | Encounter Summary ---
Author Organization [facility] Address [facility] [place] [address] [place] [address] Care Team Providers Care Boiling House Oiler Name Role Phone Sebastien Sequeira MD Primary Care Provider [phone] Reason for Visit * Auth/Cert Specialty Diagnoses / Procedures Referred By Aaron rai Referred To Contact Diagnoses SHOULDER ARTHRITIS Procedures RECONSTR TOTAL SHOULDER IMPLANT RECONSTR TOTAL SHOULDER IMPLANT ARTHROPLASTY SHOULDER TOTAL REVERSE An Avery MD [facility] [place] [address] Phone: tel: fax: Referral ID Status Reason Start Date Expiration Date Visits Re quested Visits Authorized [id number] 1 1 Encounter Details Date Type Department Care Team (Late st Contact Info) Description 03/31/2024 11:10 AM CDT - 03/31/2024 2:13 PM CDT Surgery [facility] [place] [address] [place] [address] An Avery MD [address] [place] [address] ARTHROPLASTY SHOULDER TOTAL REVERSE Surgery Details Date/Time Status Location OR Service Patient Class Case Class Case Type Trauma Case? 03/31/2024 11:10 AM Posted [facility] Main OR MS 14 Orthopedics Short Stay/Outpa tient Surgery E - Elective No Panel 1 Procedure LRB Anes Op Region Wound Class Comments ARTHROPLASTY SHOULDER TOTAL REVERSE Left General Shou lder Clean Surgeon Surgeon Role Service Panel Orlin Carrera MD Resident - Assisting Orthopedics 1 An Avery MD Primary Orthopedics 1 Case Notes REGULAR OR TABLESPIDER ARM HOLDEREXACTECH- REP NOTIFIED BY OFFICEREP CONTACTED BY HOSPITAL documented in this encounter Social History Tobacco Use Types Packs/Day Years Used Date Smoking Tobacco: Never Smokeless Tobacco: Never Alcohol Use Standard Drinks/Week Comments Not Currently 0 (1 standard drink = 0.6 oz pur e alcohol) [facility] Utilities Answer Date Recorded In the past 12 months has e electric, gas, oil, or water company [...] any time in the past 12 m [facility], were you homeless or living in a assisted (including now)? No 03/31/2024 Comments No Sex and Gender Information Value Date Recorded Sex Assigned at Not on file Legal Sex Female 2:03 AM CDT Gender Identity Not on file Sexual Orientation Not on file documented as of this encounter Last Filed Vital Signs Vital Sign Reading Time Taken Comments Blood Pressure 133/73 03/31/2024 10:46 AM CDT Pulse 77 03/31/2024 10:46 AM CDT Temperature 35.7 ??C (96.3 ??F) 03/31/2024 10:46 AM C DT Respiratory Rate 16 03/31/2024 10:46 AM CDT Oxygen Saturation 93% 03/31/2024 10:46 AM CDT Inhaled Oxygen Concentration - - Weight 133.8 kg (295 lb) 03/24/2024 12:40 PM CDT Height 172.7 cm (5' 8 ) 03/24/2024 12:40 PM CDT Body Mass Index 46.44 03/31/2024 [...] 11:22 PM CDT Desmond Ortega RN Active documented as of this encounter Mental Status * Because of a physical, mental, or emotional condition, do you have serious difficulty concentrating, remembering, or making decisions? Answer Entry Date Author Status No 03/31/2024 11:22 PM CDT Desmond Ortega RN Active documented in this [...] Dr. Avery as scheduled post operatively. Call [phone] if you need to changeyour appointment. documented [...] DME Walker;CPAP;Cane Behavior Oriented;Cooperative Communication Talks;Understands speaking;Understands [place]orese Psychosocial Need Indicator Mental health concerns No Diagnosis/prognosis resulting in poor adjustment or coping with illness No Diagnosis/prognosis with anticipated outcome of major lifestyle changes, including change in retirement living environment No Complex Family concerns No [...] at 04/01/2024 1:11 PM CDT * Irma Gary, OT - 04/01/2024 10:10 AM CDTSummary: OT evaluation OT Initial Evaluation Discharge Recommendation: home with assistance Outpatient OT for post TSA recovery DME equipment recommendation: toilet riser without arms Activity Recommendation for grinder set up operator gear tool: up with assist of 1 with cane - CED CATHERINE 04/01/24 0900 Therapy Visit OT Received On 04/01/24 Reason for admission Pt s/p L reverse TSA 03/31 and [address] NWB. Per Dr. Carrera - PROM to elbow, wrist andhand only [...] will complete upper body dressing with Modified [place] sitting EOB or in chair to increasesafety [...] to complete upper body bathing with Modified [place] seated in chair/EOB to increase independence with ADLs. Pt to complete lower body bathing with Independent seated in chair/EOB to increase independence with ADLs. Pt will complete bed mobility with Independent with HOB flat to increase safety and independence with functional transfers. Pt will complete transfers all surfaces to/from all surfaces with Modified [place] using leastrestrictive device to increase functional mobility [...] Name: Keegan Mills Primary Language of learner: [place]se Patient was educated on precautions exercises transfers [...] Patient alert Patient's support system: family, marta Episcopalian Affiliation/Spiritual Background: Anabaptism Marta community: None , , Notification of [...] is a 74-year-old female s/p L RSA 03/[address] Avery Will plan to [...] An Avery MD, 150 mg at 04/01/24 0019 propranolol (INDERAL) tablet 60 mg, 60 mg, Oral, BID, An Avery MD rOPINIRole (REQUIP) tablet 4 mg, 4 mg, Oral, Nightly at bedtime, An Avery MD, 4 mg at04/01/24 0019 ropivacaine (ON-Q PUMP) 0.2% nerve block pump [...] PHYSICAL INTERVAL NOTE: I have reviewed Keegan Mills History & Physical which was performed [...] during recuperation were discussed with the patient/family/personal human resources representative. Reasonable alternatives to the patient's proposed procedure/surgery including benefits, risks, and side effects related to the alternatives and the risks related to not receiving the proposed care were also discussed with the patient/family/personal human resources representative. Questions were answered and the patient/family/personal human resources representative verbalized understanding and desires to proceed. Source Note - [facility] - 03/22/2024 12:01 AM CDT documented in this encounter OR Notes * Brief Op Note - An Avery MD - 03/31/2024 1:53 PM CDT [facility] Brief Op [facility]ARTHROPLASTY SHOULDER TOTAL REVERSE Procedure Note Keegan Mills 03/31/2024 1110 Procedure(s) (LRB): ARTHROPLASTY SHOULDER TOTAL REVERSE (Left) Surgeon(s): MD Orlin Krause MD Second Ride Fare Collector: Glass Inserter: Toni Fenton RN Anesthesia: General Pre-Op Diagnosis: SHOULDER ARTHRITIS Post-Op Diagnosis: Same Findings: rtc arthropathy Estimated Blood Loss: 150cc Specimens: None AN AVERY MD Date: 03/31/2024 Time: 1:53 PM * Op Note - An Avery MD - 03/31/2024 12:00 AM CDT Patient Name: KEEGAN MILLS Date of : 1950 Account: [id number] Facility: [facility] Location: [facility] Date of Service: 03/31/2024 Operative Note PREOPERATIVE [...] elsewhere. She has failed other conservative measures. Wediscussed the risks and benefits of surgery including infection, injury to nerves and vessels, fractures and dislocations, decreased mobility, need for later surgeries, that she is at higher risk forcomplications given her morbid obesity, among others. She [...] of the pectoralis with #1 Vicryl of [id number] sutures. We identified the three sisters along [...] end of the case. Signature/Date: AN AVERY #[id number] /OMAR documented in this encounter Plan of [...] 70 - 109 04/01/2024 6:[address] [facility] 04/01/2024 5:58 AM CDT us An Avery MD POCT ORDERABLES - DEVIC E Final Result [facility] [address] [place] [address], [id number] documented in this encounter Visit Diagnoses Not on filedocumented in this encounter Admitting Diagnoses Diagnosis S/P [...] Ermelinda 03/31/24 at 2115, Until Discontinued, Post-Op Given 04/01/2024 [...] Oral, 3 times daily, First dose on Ermelinda 03/31/24 at 2130, Until Discontinued Given 04/01/2024 8:24 [...] Given 04/01/2024 8:24 AM CDT 25 mg vancomycin (VANCOCIN) injection As needed, Starting on Thu03/31/24 at 1340, Until Thu03/31/24 at 1418, Intra-Op Given 03/31/2024 1:40 PM CDT 1,000 mg Operative Site venlafaxine XR (EFFEXOR-XR) 24 hr capsule 150 [...] Oral, Every 12 hours, First dose on Thu03/31/24 at 2130, Until Discontinued 0019 (Given - Provid er: Desmond Ortega RN)0821 (Given - Provider: Phoebe Hernández RN) ceFAZolin (ANCEF) 3 g in sodium chloride 0.9 % 100 mL IVPB (COMPLETED) 3 g, Intravenous, at 400 mL/hr, Once, 1 dose, On Thu03/31/24 at 0945, Pre-Op 1146 (New Bag - [...] RN)0843 (Infusion Stop Time - Provider: Phoebe Hernández RN) celecoxib (CeleBREX) capsule 200 mg 200 mg, Oral, 2 times daily, First dose on Thu04/01/24 at 0900, Until Discontinued, Post-Op 0822 (Given - Provid er: Phoebe Hernández [...] 0900, Until Discontinued, To hold for 03/27 0821 (Given - Provid er: Phoebe Hernández RN) dexamethasone (DECADRON) injection 4 mg (COMPLETED) 4 mg, Intravenous, Once, 1 dose, On Thu04/01/24 at 0800, If giving intravenously, administer slowly over 1-4 minutes., Post-Op 08 (Given - Provid er: Phoebe Hernández RN) docusate sodium (COLACE) capsule 100 mg 100 mg, Oral, 2 times daily, First dose on Ermelinda 03/31/24 at 2115, Until Discontinued, Post-Op 22 (Given - Provid er: Desmond Ortega RN)821 (Given - Provider: Phoebe Hernández RN) ezetimibe [...] Inhalation, 2 times daily, First dose on Ermelinda 03/31/24 at 2130, Until Discontinued, Following administration, rinse mouth with water after use (do not swallow) to reduce risk of oral candidiasis. 2337 (Not Given - Provider: Desmond Ortega RN - Reason: Patient/family declined) 0647 (Given - Provider: Desmond Ortega RN) furosemide (LASIX) tablet 40 mg 40 mg, Oral, Daily, First dose on Thu04/01/24 at 0900, Until Discontinued 08 (Given - Provid er: Phoebe Hernández [...] Discontinued, Do not break, chew, or crush. 08 (Given - Provid er: Phoebe Hernández RN) potassium chloride CR (KLOR-CON M) tablet 20 mEq 20 mEq, Oral, Every 24 hours, First dose on Thu04/01/24 at 0900, Until Discontinued, Do not chew, crush, or suck on tablet. May break in half. May dissolve whole tablet in 120 mL of water and drink immediately. 08 (Given - Provid er: Phoebe Hernández RN) pregabalin (LYRICA) capsule 150 mg 150 mg, Oral, 3 times daily, First dose on Thu03/31/24 at 2130, Until Discontinued 18 (Given - Provid er: Desmond Ortega RN)24 (Given - Provider: Phoebe Hernández RN) propranolol [...] opened and the contents sprinkled on applesauce. 822 (Given - Provid er: Phoebe Hernández RN) [...] at 100 mL/hr, Intravenous, Continuous, Starting on 03/31/24 at 2115, Until Thu04/01/24 at 1520, [...] PRN, Seizures, Starting on Ermelinda 03/31/24 at 2048, Until Thu04/01/24 at 1520, HAZARDOUS MEDICATION: wear single chemotherapy approved gloves. Do not open or split. If crushing, use approved closed-system crushing device for hazardous medications. diphenhydrAMINE (BENADRYL) capsule 50 mg 50 mg, Oral, Every 6 hours PRN, Itching, Starting on Ermelinda 03/31/24 at 2048, Until Thu04/01/24 at 1520, Post-Op HYDROmorphone (DILAUDID) injection 0.2 mg 0.2 mg, Intravenous, Every 30 min PRN, Other, Breakthrough Pain, Starting on Ermelinda 03/31/24 at 2048, Until Thu04/01/24 at 1520, Administer slowly over at least 2-3 minutes., Post-Op normal saline 0.9 % flush 3-10 mL 3-10 mL, Intravenous, As needed, Line care, Starting on Ermelinda 03/31/24 at 2048, Until Thu04/01/24 at 1520, Post-Op ondansetron (ZOFRAN) injection 4 mg 4 mg, Intravenous, Every 6 hours PRN, Nausea, Vomiting, Starting on Ermelinda 03/31/24 at 2048, Until Thu04/01/24 at 1520, IV push over 2-5 minutes., Post-Op oxyCODONE immediate release (ROXICODONE) tablet 10 mg 10 mg, Oral, Every 4 hours PRN, Severe pain (Scale 8 - 10), Starting on Ermelinda 03/31/24 at 2048, Until Thu04/01/24 at 1520, Post-Op oxyCODONE immediate release (ROXICODONE) tablet 5 mg (COMPLETED) 5 mg, Oral, Once as needed, Moderate pain (Scale 4 - 7), 1 dose, Starting on Ermelinda 03/31/24 at 1427, Until Ermelinda 03/31/24 at 1507, When/if able to take medications [...] 03/31/24 at 2048, Until Thu04/01/24 at 1520, Post-Op vancomycin (VANCOCIN) injection (CANCELED) As needed, Starting on Ermelinda 03/31/24 at 1340, Until Ermelinda 03/31/24 at 1418, Intra-Op 1340 (Given - Provider: An Avery MD) documented in this encounter Care Teams Boiling House Oiler Relationship Specialty Start Date End Date Sebastien Sequeira MD [address] [place] [address] PCP - General INTERNAL MEDICINE 08/02/20 documented as of this encounter
--- OUTSIDE RECORDS SUMMARY | 2024-09-13 06:31 | XMS_ITS | Encounter Summary ---
Author Organization [facility] Address [facility] [place] [address] [place] [address] Care Team Providers Care Global Project Manager Name Role Phone Sebastien Sequeira MD Primary Care Provider [phone] Encounter Details Date Type Department Care Team (Latest Contact Info) Description 07/29/2024 Travel Social History Tobacco Use Types Packs/Day Years Used Date Smoking Tobacco: Never Smokeless Tobacco: Never Alcohol Use Standard Drinks/Week Comments Not Currently 0 (1 standard drink = 0.6 oz pur e alcohol) [facility] Utilities Answer Date Recorded In the past 12 months has e [employer] gas, oil, or water [employer] threatened to shut off services in your [...] any time in the past 12 m [facility], were you homeless or living in a nursing home (including now)? No 03/31/2024 Comments No Sex [...] on filedocumented in this encounter Care Teams Global Project Manager Relationship Specialty Start Date End Date Sebastien Sequeira MD [address] [place] [address] PCP - General INTERNAL MEDICINE 08/02/20 documented as of this encounter
--- OUTSIDE RECORDS SUMMARY | 2024-09-13 06:31 | XMS_ITS | Encounter Summary ---
Author Organization [facility] Address [facility] [place] [address] [place] [address] Care Team Providers Care Alum Operator Name Role Phone Sebastien Sequeira MD Primary Care Provider [phone] Reason for Visit * Auth/Cert (Routine) Specialty Diagnoses / Procedures Referred By Contac t Referred To Contact Diagnoses CARPAL AND CUBITAL TUNNEL SYNDROME Procedures REVISE MEDIAN N/CARPAL TUNNEL SURG REVISE ULNAR NERVE AT ELBOW REVISE MEDIAN N/CARPAL TUNNEL SURG RELEASE CARPAL TUNNEL IN SITU ULNAR NERVE RELEASE Cameron Avery MD [address] [place] [address] Phone: tel: fax: Referral ID Status Reason Start Date Expiration Date Visits Re quested Visits Authorized [id number] 1 1 Encounter Details Date Type Department Care Team (Late st Contact Info) Description 09/01/2024 8:30 AM TICKET MAKER Anesthesia Event [facility] OR [address] [place] [address] Senthil North MD [address] [place] [address] [place] [address] Diann Patel RN Anesthesia Record Procedure Summary Procedure Name Responsible Anesthesiologist Anesthesia Start Time Anesthesia Stop Time RELEASE CARPAL TUNNEL (Left: Hand) Senthil North MD 09/01/24 0830 09/01/24 0947 Events Date Time Event Comment 09/01/2024 0653 0653 AN Anesthesia Prepped 0811 AN INTERN Prepped 0830 An Start Patient ID and consent checked and patient reassessed. 0830 An Start Data 0834 Preoxygenation 0837 An Induction The patient was reevaluated immediately before moderate or deep sedation use and before anesthesia induction. 0839 An LMA 0840 Anesthesia Ready 0859 AN Procedural Timeout Anesth esia staff were present during the procedural timeouts. 0900 An Tourn Inflated 250 mmHg - left upper extremity 0900 Quick Note Incision 0921 An Tourn Deflated 21 minute tourniquet time 0940 LMA Removed 0941 Face Mask Applied 0942 an stop data 0945 Post Anesthetic Care Handoff I completed my handoff to the receiving nurse during which we: 1. Identified the patient 2. Identified the responsible provider 3. Reviewed the pertinent medical history 4. Discussed the surgical course 5. Reviewed intra-op anesthesia management and issues during anesthesia 6. Set expectations for post-procedure period 7. Allowed opportunity for questions and acknowledgement of understanding. 0947 An Stop Meds Name Total midazolam 2 mg/2 mL injection 2 mg fentaNYL (SUBLIMAZE) 100 mcg/2 mL inject ion 100 mcg lidocaine (XYLOCAINE) 1% injection 100 m g propofol (DIPRIVAN) 200 mg/20 mL injecti on 150 mg dexamethasone (DECADRON) injection 4 mg ondansetron (ZOFRAN) 4 mg/2 mL injection 4 mg ceFAZolin (ANCEF) 3 g in sodium chloride 0.9 % 100 mL IVPB 3 g phenylephrine (JENNIFFER-SYNEPHRINE) 1 mg/10 m L IV syringe 500 mcg lactated ringers infusion 400 mL * Agents Name O2 Air Inspired Sevoflurane Sevoflurane Ancillary O2 * Blood No blood administrations on file. Lines, Drains, and Airways Type Details Placement Removal Peripheral IV Placement Date: 08/14 06/07; Placement Time: 722; Size: 20 G; Orientation: Right; Location: Hand; Site Prep: Chlorhexidine; Inserted By: Simón Godinez RN; Insertion attempts: 1; Patient Tolerance: Tolerated well; Removal Date: 09/01/24; Removal Time: 1120; Removal Reason: Patient Discharged 09/01/24722 by Lakeisha Lopez RN 09/01/24 1120 by Perla Luu RN Supraglottic Airway Placement Date: 08/14 06/07; Placement Time: 0839; Mask Ventilate: Easy; Airway Device: LMA; LMA Size: 5; Placed Outside of This Facility?: No; Placed By: MALINDA; Style: AirQ; Insertion Attempts:1; Breath Sounds:Equal bilaterally; Placement Verified By: Capnography, Auscultation, Chest Rise; Extubation Assessment: Patient spontaneously breathing, Deep breathes w/equal chest movements, Atraumatic; Removal Date: 09/01/24; Removal Time: 0940; Removal Person: INTERN; Removal Reason: End of Case 09/01/24 0839 by Laura Dey CRNA 09/01/24 0940 by Laura Dey CRNA Surgical/Incision 09/01/24; 0908; Surg ical Wound; Elbow; Left; DRESSING XEROFORM 1 X 8 (x2), SPONGE SUPER FLUFF 6IN X 6.75IN, DRESSING WEBRIL 4IN UNSTERILE, DRESSING MEDLINE MARISOL WRAP 4; sling; 09/01/24; 1336 09/01/24 0908 by Jason Regalado RN 09/01/24 1336 by Automatic Discharge Provider documented in this encounter Social History Tobacco Use Types Packs/Day Years Used Date Smoking Tobacco: Never Smokeless Tobacco: Never Alcohol Use Standard Drinks/Week Comments Not Currently 0 (1 standard drink = 0.6 oz pur e alcohol) [facility] Utilities Answer Date Recorded In the past 12 months has [facility] [employer], [employer], or water [employer] threatened to shut off services in your [...] any time in the past 12 m [facility], were you homeless or living in a [...] Ann RN Active documented in this encounter OR Notes * Anesthesia Postprocedure Evaluation - Senthil North MD - 09/01/2024 12:42 PM CST Anesthesia Post-op Note Gilma Mills Procedure(s): RELEASE CARPAL TUNNEL (Left: Hand) IN SITU ULNAR NERVE RELEASE (Left: Arm) Anesthesia type: general Vitals: 09/01/24 1026 BP: 129/73 Vitals: 09/01/24 1026 Pulse: 77 Vitals: 09/01/24 1026 Resp: 18 Vitals: 09/01/24 1026 Temp: 36 ??C Vitals: 09/01/24 1026 SpO2: 95% Patient Location: PACU Level of Consciousness: awake, alert and oriented Pain Management: adequate analgesia Airway Patency: patent Respiratory Status: acceptable, room air and spontaneous ventilation Cardiovascular Status: acceptable and hemodynamically stable Post-Op Nausea: none Postoperative Hydration: euvolemic There were no known notable events for this encounter. ET MAKER * Anesthesia Preprocedure Evaluation - Senthil North MD - 08/31/2024 4:30 PM CST Anesthesia ROS/MED History Reviewed: Patient summary , Nursing notes , Family history anesthesia, Anesthesia history , Medications Pre-Anesthetic State: alert, awake and responds appropriately no history of anesthetic complications Pulmonary (+) sleep apnea, asthma, (well controlled) Cardiovascular (+) hypertension, (well controlled), CAD, CHF, [...] (+) hypothyroidism, arthritis, (OA) GENERAL COMMENTS H&P noted 07/21/24 NPO Status: Physical Evaluation Airway Mallampati: II TM Distance: >3 FB Neck ROM: normal Dental (upper dentures), (lower dentures) Pulmonary Pulmonary exam normal Breath sounds clear to auscultation Cardiovascular Rhythm: regular Rate: normal Cardiovascular exam normal STOP-Bang Assessment: Do you snore loudly?: (Patient-Rptd) 0 Do you often feel tired or fatigued after your sleep?: (Patient-Rptd) 1 Has anyone ever observed you stop breathing in your sleep?: (Patient-Rptd) 0 Do you have or are you being treated for high blood pressure?: (Patient-Rptd) 1 Recent BMI (Calculated): (Patient-Rptd) 44.1 Is BMI greater than 35 kg/m2?: (Patient-Rptd) 1=Yes Age older than 50 years old?: (Patient-Rptd) 1=Yes Is your neck circumference greater than 17 inches (Male) or 16 inches (Female)?: (Patient-Rptd) 0 Gender - Male: (Patient-Rptd) 0=No STOP-Bang Total Score: (Patient-Rptd) 4 Anesthesia Plan ASA 3 Intravenous Induction Anesthesia type: general Plan for Airway: LMA The patient is not a current smoker. Patient was not previously instructed to abstain from smoking on day of procedure. Patient did not smoke on day of procedure. Informed Consent Anesthetic plan and risks discussed with patient of whom consent was obtained. . ET MAKER ET MAKER ET MAKER documented in this encounter Plan of Treatment [...] On Ermelinda 09/01/24 at 0715, Pre-op, Pre-Op New Bag 09/01/2024 8:46 AM TICKET MAKER 3 g dexamethasone (DECADRON) injection Intravenous, PRN, Starting on Ermelinda 09/01/24 at 0841, Until Ermelinda 09/01/24 at 0949, Anesthesia Intra-Op Given 09/01/2024 8:41 AM TICKET MAKER 4 mg fentaNYL (SUBLIMAZE) injection Intravenous, PRN, Starting on Ermelinda 09/01/24 at 0834, Until Ermelinda 09/01/24 at 0949, Anesthesia Intra-Op Given 09/01/2024 8:59 AM TICKET MAKER 50 mcg Given 09/01/2024 8:37 AM TICKET MAKER 50 mcg lactated ringers infusion Intravenous, Continuous PRN, Starting on Ermelinda 09/01/24 at 0832, Until Ermelinda 09/01/24 at 0949, Anesthesia Intra-Op New Bag 09/01/2024 8:32 AM TICKET MAKER lidocaine (XYLOCAINE) 1 % injection SOLN Other, PRN, Starting on Ermelinda 09/01/24 at 0837, Until Ermelinda 09/01/24 at 0949, Anesthesia Intra-Op Given 09/01/2024 8:37 AM TICKET MAKER 100 mg midazolam (VERSED) injection Intravenous, PRN, Starting on Ermelinda 09/01/24 at 0830, Until Ermelinda 09/01/24 at 0949, Anesthesia Intra-Op Given 09/01/2024 8:30 AM TICKET MAKER 2 mg ondansetron (ZOFRAN) injection Intravenous, PRN, Starting on Ermelinda 09/01/24 at 0841, Until Ermelinda 09/01/24 at 0949, Anesthesia Intra-Op Given 09/01/2024 8:41 AM TICKET MAKER 4 mg phenylephrine (JENNIFFER-SYNEPHRINE) injection Intravenous, PRN, Starting on Ermelinda 09/01/24 at 0849, Until Ermelinda 09/01/24 at 0949, Anesthesia Intra-Op Given 09/01/2024 9:13 AM TICKET MAKER 100 mcg Given 09/01/2024 9:07 AM TICKET MAKER 200 mcg Given 09/01/2024 8:55 AM TICKET MAKER 100 mcg propofol (DIPRIVAN) IV bolus Intravenous, PRN, Starting on Ermelinda 09/01/24 at 0837, Until Ermelinda 09/01/24 at 0949, Anesthesia Intra-Op Given 09/01/2024 8:37 AM TICKET MAKER 150 mg documented in this encounter Care Teams Alum Operator Relationship Specialty Start Date End Date Sebastien Sequeira MD [address] [place] [id number] PCP - General INTERNAL MEDICINE 08/02/20 documented as of this encounter
--- OUTSIDE RECORDS SUMMARY | 2024-09-13 06:31 | XMS_ITS | Encounter Summary ---
Author Organization [facility] Address [facility] [place] [address] [place] [address] Care Team Providers Care Double End Sewer Name Role Phone Sebastien Sequeira MD Primary Care Provider Encounter Details Date Type Department Care Team (Latest Contact Info) Description 08/18/2023 Travel Social History Tobacco Use Types Packs/Day [...] on filedocumented in this encounter Care Teams Double End Sewer Relationship Specialty Start Date End Date Sebastien Sequeira MD [address] [place] [address] PCP - General INTERNAL MEDICINE 08/02/20 documented as of this encounter
--- OUTSIDE RECORDS SUMMARY | 2024-09-13 06:31 | XMS_ITS | Encounter Summary ---
Author Organization [facility] Address Replaced by [facility] [place] [address] [place] [address] Care Team Providers Care Molecular Genetic Pathologist Name Role Phone Sebastien Sequeira MD Primary Care Provider [phone] Encounter Details Date Type Department Care Team (Latest Contact Info) Description 08/03/2024 Travel Social History Tobacco Use Types Packs/Day Years Used Date Smoking Tobacco: Never Smokeless Tobacco: Never Alcohol Use Standard Drinks/Week Comments Not Currently 0 (1 standard drink = 0.6 oz pur e alcohol) [facility] Utilities Answer Date Recorded In the past 12 months has e [employer], gas, oil, or water [employer] threatened to shut off services in your [...] any time in the past 12 m [facility], were you homeless or living in a [...] on filedocumented in this encounter Care Teams Molecular Genetic Pathologist Relationship Specialty Start Date End Date Sebastien Sequeira MD [address] [place] [address] PCP - General INTERNAL MEDICINE 08/02/20 documented as of this encounter
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
--- OUTSIDE RECORDS SUMMARY | 2024-09-13 06:31 | XMS_ITS | Encounter Summary ---
Author Organization [facility] Address [facility] [place] [address] [place] [address] Care Team Providers Care Customer Support Coordinator Name Role Phone Sebastien Sequeira MD Primary Care Provider [phone] Reason for Visit * Auth/Cert (Routine) Specialty Diagnoses / Procedures Referred By Contdennis t Referred To Contact Diagnoses CARPAL AND CUBITAL TUNNEL SYNDROME Procedures REVISE MEDIAN N/CARPAL TUNNEL SURG REVISE ULNAR NERVE AT ELBOW REVISE MEDIAN N/CARPAL TUNNEL SURG RELEASE CARPAL TUNNEL IN SITU ULNAR NERVE RELEASE An Vargas MD [address] [place] [address] Phone: tel: fax: Referral ID Status Reason Start Date Expiration Date Visits Re quested Visits Authorized [id number] 1 1 Encounter Details Date Type Department Care Team (Late st Contact Info) Description 09/01/2024 5:59 AM EDUCATIONAL SIGN LANGUAGE INTERPRETER - 09/01/2024 11:21 AM EDUCATIONAL SIGN LANGUAGE INTERPRETER Hospital Encounter [facility] [address] [place] [address] An Vargas MD [address] [place] [address] Discharge Disposition: Home or Self Care (Routine Discharge) Social History Tobacco Use Types Packs/Day Years Used Date Smoking Tobacco: Never Smokeless Tobacco: Never Alcohol Use Standard Drinks/Week Comments Not Currently 0 (1 standard drink = 0.6 oz pur e alcohol) [facility] Utilities Answer Date Recorded In the [...] Comments Blood Pressure 129/73 09/01/2024 10:26 AM EDUCATIONAL SIGN LANGUAGE INTERPRETER Pulse 77 09/01/2024 10:26 AM EDUCATIONAL SIGN LANGUAGE INTERPRETER Temperature 36 ??C (96.8 ??F) 09/01/2024 10:26 AM EDUCATIONAL SIGN LANGUAGE INTERPRETER Respiratory Rate 18 09/01/2024 10:26 AM EDUCATIONAL SIGN LANGUAGE INTERPRETER Oxygen Saturation 95% 09/01/2024 10:26 AM EDUCATIONAL SIGN LANGUAGE INTERPRETER Inhaled Oxygen Concentration - - Weight 131.5 kg (290 lb) 09/01/2024 7:05 AM EDUCATIONAL SIGN LANGUAGE INTERPRETER Height 172.7 cm (5' 8 ) 09/01/2024 7:05 AM EDUCATIONAL SIGN LANGUAGE INTERPRETER Body Mass Index 44.09 09/01/2024 7:05 AM EDUCATIONAL SIGN LANGUAGE INTERPRETER documented in this encounter Functional Status * Are you deaf or do you have serious difficulty hearing Answer Date of Assessment Author Status No 09/01/2024 7:04 AM EDUCATIONAL SIGN LANGUAGE INTERPRETER Keyla Lopez RN Active * Are you blind or do you have serious difficulty seeing, even when wearing glasses? Answer Date of Assessment Author Status No 09/01/2024 7:04 AM EDUCATIONAL SIGN LANGUAGE INTERPRETER Keyla Lopez RN Active * Do you [...] Care Everywhere. * General Anesthesia Discharge Instructions (South Korean) * Carpal Tunnel Release ([place] Korean) * How to Prevent Surgical Site Infections ([place] Korean) documented in this encounter Medications at Time [...] is a 74-year-old female who presents to [facility] for L carpal and cubital syndrome. Patient [...] right reverse total shoulder arthroplasty using a [employer] delta extend 12mm stem with a size [...] An Vargas MD at 09/01/2024 10:02 AM EDUCATIONAL SIGN LANGUAGE INTERPRETER ATIONAL SIGN LANGUAGE INTERPRETER ATIONAL SIGN LANGUAGE INTERPRETER Associated attestation - An Vargas MD - 09/01/2024 10:02 AM EDUCATIONAL SIGN LANGUAGE INTERPRETER Teaching Physician - IAN MD, performed a [...] SITU ULNAR NERVE RELEASE Procedure Note Gilma Jamesonatt 09/01/2024 0830 Procedure(s) (LRB): RELEASE CARPAL TUNNEL (Left) IN SITU ULNAR NERVE RELEASE (Left) Surgeon(s): MD Jose Roberto Krause MD Mid Level Java Developer: [employer] Farmworker: Toni Fenton RN Anesthesia: General Pre-Op Diagnosis: CARPAL AND CUBITAL TUNNEL SYNDROME Post-Op Diagnosis: Same Findings: see op note Estimated Blood Loss: Minimal Specimens: None AN VARGAS MD Date: 09/01/2024 Time: 9:55 AM ATIONAL SIGN LANGUAGE INTERPRETER documented in this encounter Plan of Treatment [...] RELEASE ULNAR NERVE 09/01/2024 8 :15 AM EDUCATIONAL SIGN LANGUAGE INTERPRETER CARPAL AND CUBITAL TUNNEL SYNDROME Case Notes HAND TABLE REVISE MEDIAN N/CARPAL TUNNEL SURG 09/01/2024 8:15 AM EDUCATIONAL SIGN LANGUAGE INTERPRETER CARPAL AND CUBITAL TUNNEL SYNDROME Case Notes HAND TABLE documented in this encounter Visit Diagnoses Not on filedocumented in this encounter Administered Medications Inactive Administered Medications - up to 3 most recent administrations Medication Order MAR Action Action Date Dose Rate Site chlorhexidine (PERIDEX) 0.12 % solution 15 mL 15 mL, Mouth/Throat, Once, 1 dose, On Ermelinda 09/01/24 at 0715, Patient to perform oral care first. Swish/gargle in mouth for 30 seconds, and then discard prior to going to surgery. If ventilated use saturated swab to clean oral cavity., Pre-Op Given 09/01/2024 7:25 AM EDUCATIONAL SIGN LANGUAGE INTERPRETER 15 mLs HYDROcodone-acetaminophen (NORCO) 5-325 MG tablet 1 tablet 1 tablet, Oral, Once as needed, Mild pain (Scale 1 - 3), 1 dose, Starting on Ermelinda 09/01/24 at 1005, Until Ermelinda 09/01/24 at 1008, Do not administer if patient is overly sedated, SpO2 less than 90%, or Respiratory Rate less than 12., PACU Given During Downtime 09/01/2024 10:08 AM EDUCATIONAL SIGN LANGUAGE INTERPRETER 1 tablet documented in this encounter Active and Recently Administered Medications Times are shown in EDUCATIONAL SIGN LANGUAGE INTERPRETER. Scheduled Medication Order 08/30/2024 08/31/2024 09/01/2024 ceFAZolin [...] Order 08/30/2024 08/31/2024 09/01/2024 BUpivacaine-EPINEPHrine (PF) 0.25% [id number] injection (CANCELED) As needed, Starting on Ermelinda [...] RN) documented in this encounter Care Teams Customer Support Coordinator Relationship Specialty Start Date End Date Sebastien Sequeira MD [address] [place] [id number] PCP - General INTERNAL MEDICINE 08/02/20 documented as of this encounter
--- OUTSIDE RECORDS SUMMARY | 2024-09-13 06:31 | XMS_ITS | Encounter Summary ---
Author Organization [facility] Address [facility] [address] [place] [address] Care Team Providers Care Lumber Inspector Name Role Phone Sebastien Sequeira MD Primary Care Provider [phone] Reason for Visit * Reason Comments ECG (SCAN) Lab (SCAN) Encounter Details Date Type Department Care Team (Late st Contact Info) Description 03/22/2024 Scan [facility] [address] [place] [address] Scanned, [facility] ECG (SCAN); Lab (SCAN) Social History Tobacco Use Types Packs/Day Years Used Date Smoking Tobacco: Never Smokeless Tobacco: Never Alcohol Use Standard Drinks/Week Comments Not Currently 0 (1 standard drink = 0.6 oz pur e alcohol) [facility] Utilities Answer Date Recorded In the past 12 months has [facility] [employer], gas, oil, or water [employer] threatened to shut off services in your [...] any time in the past 12 m [facility], were you homeless or living in a care home (including now)? No 03/31/2024 Comments No [...] Procedure Name Priority Date/Time Associated Diagnosis Comments ECG GENERIC (SCAN ORDER) Routine 03/22/2024 12:00 AM CDT OUTSIDE LAB (SCAN ORDER) Routine 03/22/2024 12:00 AM CDT documented in this encounter Results * OUTSIDE LAB (03/22/2024 12:00 AM CDT) 03/22/2024 [facility] Scanned SCANNING Final Resul t [facility] ONBASE * ECG (03/22/2024 12:00 AM CDT) 03/22/2024 [facility] Scanned SCANNING Final Resul t [facility] ONBASE documented in this encounter Visit Diagnoses Not on filedocumented in this encounter Care Teams Lumber Inspector Relationship Specialty Start Date End Date Sebastien Sequeira MD [address] [place] [address] PCP - General INTERNAL MEDICINE 08/02/20 documented as of this encounter
--- OUTSIDE RECORDS SUMMARY | 2024-09-13 06:32 | XMS_ITS | Encounter Summary ---
Author Organization [facility] Address [facility] [place] [address] [place] [address] Care Team Providers Care Welder Gas Name Role Phone Sebastien Sequeira MD Primary Care Provider [phone] Encounter Details Date Type Department Care Team (Latest Contact Info) Description 08/28/2021 Travel Social History Tobacco Use Types Packs/Day Years Used Date Smoking Tobacco: Never Smokeless Tobacco: Never Alcohol Use Standard Drinks/Week Comments Not Currently 0 (1 standard drink = 0.6 oz pur e alcohol) Comments Unknown Sex and Gender Information Value Date Recorded Sex Assigned at Not on file Legal Sex Female 2:03 AM CDT Gender Identity Not on file Sexual Orientation Not on file COVID-19 Exposure Response Date Recorded In the last month, have you been in contact with someone who was confirmed or suspected to have Coronavirus / COVID-19? 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
--- OUTSIDE RECORDS SUMMARY | 2024-09-13 06:32 | XMS_ITS | Encounter Summary ---
Author Organization [facility] Address [address] [place] [address]. [place] [address] [place] [address] Care Team Providers Care Outsole Molder Name Role Phone Sebastien Sequeira MD Primary Care Provider [phone] Encounter Details Date Type Department Care Team (Late st Contact Info) Description 10/31/2022 10:34 AM POLICY CHANGE CLERK - 10/31/2022 11:40 AM POLICY CHANGE CLERK Hospital Encounter [facility] [address] [place] [address] Adele Garcia, SALES AGENT PROTECTIVE SERVICE- [address] [facility] [place] [id number] Discharge Disposition: Home or Self Care (Routine [...] Exposure Response Date Recorded In the last 10 days, have yo u been in contact with someone who was confirmed or suspected to have Coronavirus/COVID-19? No / Unsure 10/31/2022 10:15 AM POLICY CHANGE CLERK documented as of this encounter Functional Status [...] this encounter Medications at Time of Discharge clopidogrel 75 MG tablet Take 1 tablet (75 mg total) by mouth daily. Hold x 4 days per surgeon. Last dose: 07/27. 11/13/2021 ezetimibe 10 MG tablet Take 1 tablet (10 mg total) by mouth nightly at bedtime. 06/18/2020 nortriptyline 25 MG capsule Take 1 capsule (25 mg total) by mouth nightly at bedtime. 11/15/2013 pantoprazole EC 40 MG tablet Take 1 tablet (40 mg total) by mouth every morning. 06/29/2020 pregabalin (LYRICA) 150 MG capsule Take 1 [...] by mouth daily as needed. 11/26/2020 03/25/2024 EUTHYROX 125 MCG tablet Take 1 tablet (125 mcg total) by mouth daily. 07/15/2020 08/18/2023 furosemide 20 MG tablet Take 1 tablet (20 mg total) by mouth as needed. 01/14/2020 08/18/2023 HYDROcodone-aceta minophen (NORCO) 5-325 MG tabletIndications :Acute Pain < 7 Day Supply Take 1-2 tablets by mouth every 6 (six) hours as needed for Pain. Indications: Acute Pain < 7 Day Supply 15 tablet 09/11/2022 12/03/2022 propranolol LA 160 MG 24 hr capsule Take 1 capsule (160 mg total) by mouth daily. 05/11/2020 08/18/2023 spironolactone 50 MG tablet Take 1 tablet [...] Name Priority Date/Time Associated Diagnosis Comments XR KNEE STAND AP MARITZA ONLY Routine 10/31/2022 11:03 AM POLICY CHANGE CLERK Right knee pain, unspecified chronicity XR KNEE RT 2V Routine 10/31/2022 11:03 AM POLICY CHANGE CLERK Right knee pain, unspecified chronicity documented in this encounter Results * XR KNEE RT 2V (10/31/2022 11:03 AM POLICY CHANGE CLERK) Anatomical Region Laterality Modality Knee Radiographic Charlotte ging 11/01/2022 6:08 AM POLICY CHANGE CLERK Impressions 11/01/2022 6:10 AM POLICY CHANGE CLERK Impression: 1. ??Stable right knee arthroplasty without gross complication. 2. ??Moderate right knee joint effusion. 3. ??Calcific tendinitis of the distal quadriceps tendon. Referred By: ?? Interpreted By: Prince Muñoz MD, 11/01/2022 6:08 AM Narrative 11/01/2022 6:10 AM POLICY CHANGE CLERK Date: 10/31/2022 11:03 AM Exam: XR KNEE RT 2V, XR KNEE STAND AP MARITZA ONLY Comparison: Frontal view bilateral knees with lateral and sunrise view right knee dated 07/09/2022. Technique: Standing frontal view of the bilateral knees. ??Lateral and sunrise view right knee. History: Right knee pain and swelling. Findings: Left knee: The left knee arthroplasty in good position. ??No acute osseous abnormality. ??There is no soft tissue abnormality. Right knee: Right total knee arthroplasty in good position. ??There is no periprosthetic fracture nor evidence of loosening. ??There are small calcifications involving the distal quadriceps tendon. ??There is a moderate size joint effusion. ??There is no gross soft tissue abnormality. Procedure Note Prince Muñoz MD - 11/01/2022 Date: 10/31/2022 11:03 AM Exam: XR KNEE RT 2V, XR KNEE STAND AP MARITZA ONLY Comparison: Frontal view bilateral knees with lateral and sunrise viewright knee dated 07/09/2022. Technique: Standing frontal view of the bilateral knees. Lateral andsunrise view right knee. History: Right knee pain and swelling. Findings: Left knee: The left knee arthroplasty in good position. No acute osseousabnormality. There is no soft tissue abnormality. Right knee: Right total knee arthroplasty in good position. There is noperiprosthetic fracture nor evidence of loosening. There are smallcalcifications involving the distal quadriceps tendon. There is amoderate size joint effusion. There is no gross soft tissueabnormality. Impression: 1. Stable right knee arthroplasty without gross complication. 2. Moderate right knee joint effusion. 3. Calcific tendinitis of the distal quadriceps tendon. Referred By: Interpreted By: Prince Muñoz MD, 11/01/2022 6:08 AM Adele M Jose SALES AGENT PROTECTIVE SERVICE-[facility] Final Resu lt * XR KNEE STAND AP MARITZA ONLY (10/31/2022 11:03 AM POLICY CHANGE CLERK) Anatomical Region Laterality Modality Knee Radiographic Charlotte ging 11/01/2022 6:08 AM POLICY CHANGE CLERK Impressions 11/01/2022 6:10 AM POLICY CHANGE CLERK Impression: 1. ??Stable right knee arthroplasty without gross complication. 2. ??Moderate right knee joint effusion. 3. ??Calcific tendinitis of the distal quadriceps tendon. Referred By: ?? Interpreted By: Prince Muñoz MD, 11/01/2022 6:08 AM Narrative 11/01/2022 6:10 AM POLICY CHANGE CLERK Date: 10/31/2022 11:03 AM Exam: XR KNEE RT 2V, XR KNEE STAND AP MARITZA ONLY Comparison: Frontal view bilateral knees with lateral and sunrise view right knee dated 07/09/2022. Technique: Standing frontal view of the bilateral knees. ??Lateral and sunrise view right knee. History: Right knee pain and swelling. Findings: Left knee: The left knee arthroplasty in good position. ??No acute osseous abnormality. ??There is no soft tissue abnormality. Right knee: Right total knee arthroplasty in good position. ??There is no periprosthetic fracture nor evidence of loosening. ??There are small calcifications involving the distal quadriceps tendon. ??There is a moderate size joint effusion. ??There is no gross soft tissue abnormality. Procedure Note Prince Muñoz MD - 11/01/2022 Date: 10/31/2022 11:03 AM Exam: XR KNEE RT 2V, XR KNEE STAND AP MARITZA ONLY Comparison: Frontal view bilateral knees with lateral and sunrise viewright knee dated 07/09/2022. Technique: Standing frontal view of the bilateral knees. Lateral andsunrise view right knee. History: Right knee pain and swelling. Findings: Left knee: The left knee arthroplasty in good position. No acute osseousabnormality. There is no soft tissue abnormality. Right knee: Right total knee arthroplasty in good position. There is noperiprosthetic fracture nor evidence of loosening. There are smallcalcifications involving the distal quadriceps tendon. There is amoderate size joint effusion. There is no gross soft tissueabnormality. Impression: 1. Stable right knee arthroplasty without gross complication. 2. Moderate right knee joint effusion. 3. Calcific tendinitis of the distal quadriceps tendon. Referred By: Interpreted By: Prinec Muñoz MD, 11/01/2022 6:08 AM Adlee Curtis Jose SALES AGENT PROTECTIVE SERVICE-[facility] Final Resu lt documented in this encounter Visit Diagnoses Diagnosis Right knee pain, unspecified chronicity documented in this encounter Care Teams Outsole Molder Relationship Specialty Start Date End Date Sebastien Sequeira MD [address] [place] [address] PCP - General INTERNAL MEDICINE 08/02/20 documented as of this encounter
--- OUTSIDE RECORDS SUMMARY | 2024-09-13 06:32 | XMS_ITS | Encounter Summary ---
Author Organization [facility] Address [address] [place] [address]. [place] [address] [place] [address] Care Team Providers Care Litigation Legal Secretary Name Role Phone Sebastien Sequeira MD Primary Care Provider [phone] Encounter Details Date Type Department Care Team (Latest Contact Info) Description 07/23/2022 10:48 AM HOSPITAL WARD CLERK - 07/23/2022 11:59 PM HOSPITAL WARD CLERK Hospital Encounter [address] [place] [address] Gustavo So MD [address] [place] [address] Discharge Disposition: Home or Self Care (Routine [...] suspected to have Coronavirus/COVID-19? No / Unsure 07/23/2022 8:55 AM HOSPITAL WARD CLERK documented as of this encounter Functional [...] by mouth daily as needed. 11/26/2020 03/25/2024 cyclobenzaprine 10 MG tablet Take 10 mg by mouth 3 (three) times daily as needed. 11/25/2021 08/11/2022 EUTHYROX 125 MCG tablet Take 1 tablet (125 mcg total) by mouth daily. 07/15/2020 08/18/2023 furosemide 20 MG tablet Take 1 tablet (20 mg total) by mouth as needed. 01/14/2020 08/18/2023 pregabalin (LYRICA) 150 MG capsule Take 1 capsule by mouth daily. 05/02/2022 08/06/2022 propranolol LA 160 MG 24 hr capsule Take 1 capsule (160 mg total) by mouth daily. 05/11/2020 08/18/2023 spironolactone 50 MG tablet Take 1 tablet (50 mg total) by mouth daily. 03/31/2024 documented as of this encounter Plan of [...] Procedure Name Priority Date/Time Associated Diagnosis Comments SED RATE, ERYTHROCYTE (ESR) Routine 07/23/2022 11:00 AM HOSPITAL WARD CLERK History of total right knee replacement C-REACTIVE PROTEIN Routine 07/23/2022 11 :00 AM HOSPITAL WARD CLERK History of total right knee replacement CBC W/DIFF AUTOMATED Routine 07/23/2022 11:00 AM HOSPITAL WARD CLERK History of total right knee replacement documented in this encounter Results * C-REACTIVE PROTEIN (07/23/2022 11:00 AM HOSPITAL WARD CLERK) Pathologist [facility] C-REACTIVE PROTEIN 0.26 <0.30 mg/dL 07/23/2022 11:20 AM HOSPITAL WARD CLERK [facility] 07/23/2022 11:0 0 AM HOSPITAL WARD CLERK Adele Curtis [facility] LABORATORY Final Resu lt Performing Organization Address [facility]/ZIP Co de Phone Number [facility] [address] [place] [address], [place] [phone] * SED RATE, ERYTHROCYTE (ESR) (07/23/2022 11:00 AM HOSPITAL WARD CLERK) Pathologist [facility] ESR 20 0 - 20 MM/HR 07/23/2022 11:36 AM HOSPITAL WARD CLERK [facility] 07/23/2022 11:0 0 AM HOSPITAL WARD CLERK [facility] Final Resu lt Performing Organization Address City/[facility]/ZIP Co de Phone Number [facility] [address] [place] [id number], [place] [phone] * (ABNORMAL) CBC W/DIFF AUTOMATED (07/23/2022 11:00 AM HOSPITAL WARD CLERK) Pathologist [facility] WBC 7.9 4.0 - 10.8 x10'3/uL 07/23/2022 11:10 AM HOSPITAL WARD CLERK [facility] RBC 4.70 4.10 - 5.40 x10'6/uL 07/23/2022 11:10 AM HOSPITAL WARD CLERK [facility] HGB 14.3 12.0 - 16.0 G/DL 07/23/2022 11:10 AM HOSPITAL WARD CLERK [facility] HCT 44.5 36.0 - 47.0 % 07/23/2022 11:10 AM HOSPITAL WARD CLERK [facility] MCV 94.7 78.0 - 100.0 FL 07/23/2022 11:10 AM [facility] MCH 30.4 27.0 - 31.0 PG 07/23/2022 11:10 AM [facility] MCHC 32.1(L) 33.0 - 36.0 G/DL 07/23/2022 11:10 AM [facility] RDW 13.3 11.5 - 14.5 % 07/23/2022 11:10 AM [facility] PLT 221 150 - 350 x10'3/uL 07/23/2022 11:10 AM [facility] MPV 8.8 7.4 - 10.4 FL 07/23/2022 11:10 AM [facility] CBC COMMENT NORMAL REFERENCE RANGE NOT ESTABLISHED FOR THE PROPORTIONAL LEUKOCYTE DIFFERENTIAL. 07/23/2022 11:10 AM [facility] NEUTROPHILS % 63.3 % 07/23/2022 11:10 AM [facility] LYMPHOCYTES % 21.5 % 07/23/2022 11:10 AM [facility] MONOCYTES % 9.5 % 07/23/2022 11:10 AM [facility] EOSINOPHILS % 4.9 % 07/23/2022 11:10 AM [facility] BASOPHILS % 0.5 % 07/23/2022 11:10 AM [facility] IMMATURE GRANS % 0.3 % 07/23/20 11:10 AM [facility] NRBC 0.0 % 07/23/2022 11:10 AM [facility] ABS. NEUTROPHILS 4.99 1.60 - 8.30 x10'3/uL 07/23/2022 11:10 AM [facility] ABS. LYMPHOCYTES 1.70 0.80 - 4.70 x10'3/uL 07/23/2022 11:10 AM [facility] ABS. MONOCYTES 0.75 0.00 - 1.50 x10'3/uL 07/23/2022 11:10 AM [facility] ABS. EOSINOPHILS 0.39 0.00 - 0.40 x10'3/uL 07/23/2022 11:10 AM HOSPITAL WARD CLERK [facility] ABS. BASOPHILS 0.04 0.00 - 0.20 x10'3/uL 07/23/2022 11:10 AM HOSPITAL WARD CLERK [facility] ABS. IMMATURE GRANULOCYTES 0.02 0.00 - 0.03 x10'3/uL 07/23/2022 11:10 AM HOSPITAL WARD CLERK [facility] ABS. NUCLEATED RBC'S 0.00 0.00 x10'3/uL 07/23/2022 11:10 AM HOSPITAL WARD CLERK [facility] 07/23/2022 11:0 0 AM HOSPITAL WARD CLERK Adele Kirsten Garcia RN UNIT MANAGER- LABORATORY Final Resu lt [facility] [address] [place] [address], documented in this encounter Visit Diagnoses Diagnosis History of total right knee replacement documented in this encounter Care Teams Litigation Legal Secretary Relationship Specialty Start Date End Date Sebastien Sequeira MD [address] [place] [address] PCP - General INTERNAL MEDICINE 08/02/20 documented as of this encounter
--- OUTSIDE RECORDS SUMMARY | 2024-09-13 06:32 | XMS_ITS | Encounter Summary ---
Author Organization [facility] Address [address] [place] [address]. [place] [address] [place] [address] Care Team Providers Care Scientific Software Developer Name Role Phone Sebastien Sequeira MD Primary Care Provider [phone] Encounter Details Date Type Department Care Team (Late st Contact Info) Description 06/30/2022 Orders Only [facility] [place] [id number] [facility] [address] [place] [address] Daniel Garcia, [facility] [address] [facility] [place] [id number] Social History Tobacco Use Types Packs/Day Years [...] Status No 06/24/2021 11:17 AM CDT Vania Dergoot RN Active documented in this encounter Plan [...] of this encounter Results * XR SHOULDER RT MIN 2V (07/09/2022 9:32 AM CDT) Anatomical Region Laterality Modality Shoulder Radiographic Charlotte ging 07/09/2022 9:46 AM CDT Impressions 07/09/2022 9:47 AM CDT IMPRESSION: 1. Right reverse shoulder arthroplasty without findings to suggest hardware failure or loosening. Ordered By: DANIEL GARCIA Interpreted By: Casey Gonzalez MD, 07/09/2022 9:46 AM Narrative 07/09/2022 9:47 AM CDT Examination: XR SHOULDER RT MIN 2V Exam time: 07/09/2022 9:32 AM Clinical history: Right total shoulder arthroplasty follow-up Comparison: 12/10/2021 Technique: AP with internal rotation and axial views of the right shoulder Findings: Right reverse shoulder arthroplasty is again seen without findings to suggest hardware failure or loosening. No acute fracture or dislocation. No unexpected radiopaque foreign body. Visualized right lung is clear. Procedure Note Casey Gonzalez MD - 07/09/2022 Examination: XR SHOULDER RT MIN 2V Exam time: 07/09/2022 9:32 AM Clinical history: Right total shoulder arthroplasty follow-up Comparison: 12/10/2021 Technique: AP with internal rotation and axial views of the rightshoulder Findings: Right reverse shoulder arthroplasty is again seen withoutfindings to suggest hardware failure or loosening. No acute fracture ordislocation. No unexpected radiopaque foreign body. Visualized right lungis clear. IMPRESSION: 1. Right reverse shoulder arthroplasty without findings to suggesthardware failure or loosening. Ordered By: DANIEL GARCIA Interpreted By: Casey Gonzalez MD, 07/09/2022 9:46 AM us Daniel Garcia CLIENT RELATIONS ASSOCIATE-[facility] Final Resu lt documented in this encounter Visit Diagnoses Diagnosis Follow-up examination after orthopedic surgery- Primary Follow-up examination, following other surgery Follow-up examination after orthopedic surgery Follow-up examination, following other surgery documented in this encounter Care Teams Scientific Software Developer Relationship Specialty Start Date End Date Sebastien Sequeira MD [address] [place] [address] PCP - General INTERNAL MEDICINE 08/02/20 documented as of this encounter
--- OUTSIDE RECORDS SUMMARY | 2024-09-13 06:32 | XMS_ITS | Encounter Summary ---
Author Organization [facility] Address [address] [place] [address]. [place] [address] [place] [address] Care Team Providers Care Cube Cutter Name Role Phone Sebastien Sequeira MD Primary Care Provider [phone] Reason for Visit * Reason Comments Postop Followup DOS: 06/24/21 RIGHT reverse total shoulder arthroplasty using a DePuy delta extend 12mm stem with a size 1 eccentric body and a 38 mm +2 glenosphere with a +9 metal spacer with a + 3 polyethylene spacer Encounter Details Date Type Department Care Team (Late st Contact Info) Description 07/09/2022 9:30 AM CDT Office Visit [facility] [address] [address] [address] [place], [facility]- [address] [facility] [place] [id number] Postop Followup (DOS: 06/24/21 RIGHT reverse total shoulder arthroplasty using a DePuy delta extend 12mm stem with a size 1 eccentric body and a 38 mm +2 glenosphere with a +9 metal spacer with a + 3 polyethylene spacer) Social History Tobacco Use Types Packs/Day Years [...] Recorded In the last 10 days, have manolo elder been in contact with someone who was confirmed or suspected to have Coronavirus/COVID-19? No / Unsure 07/09/2022 9:23 AM CDT documented as of this encounter Last Filed Vital Signs Vital Sign Reading Time Taken Comments Blood Pressure - - Pulse - - Temperature - - Respiratory Rate - - Oxygen Saturation - - Inhaled Oxygen Concentration - - Weight 129.3 kg (285 lb) 07/09/2022 9:29 AM CDT Height 177.8 cm (5' 10 ) 07/09/2022 9:29 AM CDT Body Mass Index 40.89 07/09/2022 9:29 AM CDT documented in this encounter Functional [...] documented in this encounter Progress Notes * CHICHI Flores-GISSELL - 07/09/2022 9:30 AM CDT Chief Complaint: Postop Followup (DOS: 06/24/21 RIGHT reverse total shoulder arthroplasty using a DePuy delta [id number] stem with a size 1 eccentric body and a 38 mm +2 glenosphere with a +9 metal spacer with a + 3polyethylene spacer) History of Present Illness: Gilma Mills is a 72-year-old female who presents to the office for Postop Followup (DOS: 06/24/21 RIGHT reverse total shoulder arthroplasty using a DePuy delta extend 12mm stem with a size 1 eccentricbody and a 38 mm +2 glenosphere with a +9 metal spacer with a + 3 polyethylene spacer) Patient comes in the office today for Post Op Follow up of the RIGHT shoulder. She states no pain. She denies any numbness and tingling. She denies any bruising and swelling. She states occasionally have aches and will take Tylenol with good relief. She states uses a cane when going out. She is RIGHT hand dominant. She denies any night pain with the RIGHT shoulder. She is retired. While in the office today patient is also complaining of right knee pain. She has had a history of a right total knee arthroplasty roughly [address] Perdomo. Patient reports she states has fallen twice in the last few months. She states she just had lost her balance when she had her falls. Patient states that her pain is located primarily on the inside part of her knee and will radiate down the front part of her knee. She reports complaints of swelling as well as bruising. She has pain with weightbearing activities that has not resolved since her last fall roughly 2 months ago. Patient does report that she had not had any imaging performed after her last fall. ROS: See HPI for pertinent positives Problem List: Patient Active Problem List Diagnosis ??? Obstructive sleep apnea ??? Post-nasal drip ??? Restless legs syndrome ??? Hypertension ??? Fibromyalgia ??? Daytime hypersomnia ??? Arthritis ??? Primary osteoarthritis of left hip ??? Status post left hip replacement ??? Primary osteoarthritis of right hip ??? Radiculopathy, lumbar region ??? Rotator cuff arthropathy of right shoulder ??? Status post reverse arthroplasty of right shoulder ??? Follow-up examination after orthopedic surgery ??? Pes anserinus bursitis of right knee History: Past Medical History: Diagnosis Date ??? Acid reflux ??? COVID-19 vaccine series completed see media ??? Depression with anxiety ??? Disease of thyroid gland ??? Fibromyalgia ??? Hypertension ??? Migraines ??? Stroke (CMS/HCC) Pt had no symptoms 4 years ago. Past Surgical History: Procedure Laterality Date ??? ARTHROSCOPY SHOULDER ROTATOR CUFF REPAIR Right ??? FOOT SURGERY Right ??? HYSTERECTOMY ??? HYSTERECTOMY ??? JOINT REPLACEMENT Bilateral ??? JOINT REPLACEMENT Right shoulder ??? RELEASE HAND/FINGER TENDON Left ??? SPINAL FUSION 11/18/2021 L3-S1 fusion ??? TOTAL HIP ARTHROPLASTY Left 08/13/2020 ??? TOTAL HIP ARTHROPLASTY Right 11/19/2020 ??? TOTAL KNEE ARTHROPLASTY Bilateral ??? TOTAL SHOULDER ARTHROPLASTY Right 06/24/2021 right reverse total shoulder arthroplasty using a DePuy delta extend 12mm stem with a size 1 eccentric body and a 38 mm +2 glenosphere with a +9 metal spacer with a + 3 polyethylene spacer Family History Problem Relation Name Age of Onset ??? Cancer Mother ??? COPD Father ??? Cancer Sister ??? Other (histoplasmosi) Brother ??? No Known Problems Sister ??? Multiple Sclerosis Sister Family Status Relation Name Status ??? Mother ??? Father ??? Sister Alive ??? Brother Alive ??? Sister Alive ??? Sister Alive Social History Socioeconomic History ??? Marital status: Tobacco Use ??? Smoking status: Never Smoker ??? Smokeless tobacco: Never Used Vaping Use ??? Vaping Use: Never used Substance and Sexual Activity ??? Alcohol use: Not Currently ??? Drug use: Never Medications: Current Outpatient Medications: ??? busPIRone 15 MG tablet, Take 1 tablet by mouth daily as needed. , Disp: , Rfl: ??? clopidogrel 75 MG tablet, Take 1 tablet by mouth daily., Disp: , Rfl: ??? cyclobenzaprine 10 MG tablet, Take 10 mg by mouth 3 (three) times daily as needed., Disp: , Rfl: ??? EUTHYROX 125 MCG tablet, Take 125 mcg by mouth daily., Disp: , Rfl: ??? ezetimibe 10 MG tablet, Take 10 mg by mouth daily., Disp: , Rfl: ??? furosemide 20 MG tablet, Take 1 tablet by mouth as needed. , Disp: , Rfl: ??? methylPREDNISolone, BIJAN, (MEDROL DOSEPAK) 4 MG tablet, 4 mg Oral Tablet Therapy Pack. Follow package directions, Disp: 1 each, Rfl: 0 ??? nortriptyline 25 MG capsule, Take 1 capsule by mouth nightly at bedtime., Disp: , Rfl: ??? pantoprazole EC 40 MG tablet, Take 40 mg by mouth daily., Disp: , Rfl: ??? propranolol LA 160 MG 24 hr capsule, Take 160 mg by mouth daily., Disp: , Rfl: ??? rOPINIRole 2 MG tablet, Take 2 tablets by mouth nightly at bedtime., Disp: , Rfl: ??? rosuvastatin 20 MG tablet, Take 20 mg by mouth nightly at bedtime. at bedtime., Disp: , Rfl: ??? Semaglutide (OZEMPIC, 0.25 OR 0.5 MG/DOSE, SC), Inject 1 mg into the skin weekly. , Disp: , Rfl: ??? spironolactone 50 MG tablet, Take 50 mg by mouth daily., Disp: , Rfl: ??? venlafaxine XR 150 MG 24 hr capsule, Take 1 capsule by mouth daily., Disp: , Rfl: ??? pregabalin (LYRICA) 150 MG capsule, Take 150 mg by mouth 3 (three) times daily., Disp: , Rfl: Allergies Allergen Reactions ??? Contrave [Naltrexone-Bupropion Hcl Er] Dizziness ??? Zanaflex [Tizanidine] Other (see comment) hypotension ??? Statins Rash Objective: Body mass index is 40.89 kg/m??. Last Recorded Weight 07/09/22 09 Weight: 129.3 kg (285 lb) Physical exam: Constitutional: Alert and in no acute distress. Neurological: The patient was oriented to person, place, and time. Eyes: The sclera and conjunctiva were normal ENT: Hearing was normal. Neck: The appearance of the neck was normal. Cardiovascular: Normal pulses. Pulmonary: No respiratory distress. Skin: No injuries or skin lesion. Musculoskeletal: EXAM of RIGHT shoulder today reveals no tenderness with palpation, good shoulder range of motion, good strength, good elbow range of motion, neurovascularly intact. EXAM of RIGHT knee today reveals tenderness over pes anserine bursa with palpation, range of motionlacking 3 degrees full extension with flexion to 100 degrees, no groin pain with hip rotation, minimal effusion, no redness or warmth, old healed incision, antalgic gait, palpable pedal pulse. Results: XRAY of RIGHT shoulder today reveals hardware in stable positioning without signs of loosening and no acute or healing bony injury or dislocation. XRAY of RIGHT knee today reveals total knee arthroplasty in stable positioning without signs of loosening and no acute or healing bony injury or dislocation. Procedure: Procedure: Injection of the Pes Anserine Bursa on the right. Indications for the procedure include Inflammation and Diagnostic. The procedure's were discussed with the patient. Verbal consent was obtained prior to the procedure. Procedure Note: Gilma was prepped and draped in the usual sterile fashion using alcohol and using betadine. Anesthesia: Ethyl chloride spray was used as a topical anesthetic. A 25 gauge and 1.5 Inch needle was used to inject 1 mL lidocaine 1% and 1 mL methylprednisolone 80 mg/mL. Dressing: A bandage was applied. Post-Procedure: the patient tolerated the procedure well. Complications: there were no complications. Follow-up in the office 2 weeks. Assessment: Encounter Diagnose(s) ICD-10-CM ICD-9-CM SNOMED CT(R) 1. Follow-up examination after orthopedic surgery Z09 V67.09 SURGICAL FOLLOW-UP XR KNEE RT 2V XR KNEE STAND AP MARITZA ONLY 2. Pes anserinus bursitis of right knee M70.51 726.61 PES ANSERINUS BURSITIS OF RIGHT KNEE methylPREDNISolone, BIJAN, (MEDROL DOSEPAK) 4 MG tablet lidocaine (XYLOCAINE) 1 % injection SOLN 1 mL methylPREDNISolone acetate (DEPO-Medrol) injection 80 mg Plan: Reviewed imaging in the office today. She has done very well with her RIGHT shoulder and has done well. Activity as tolerated. She will continue to work on strengthening activities. She will follow up as needed for her RIGHT shoulder. As far as her RIGHT knee she was given reassurance no bony injury is appreciated to her RIGHT knee.She is showing signs of pes anserine bursitis and I have recommended an injection which was given in the office today. Activity as tolerated. I have also sent in a Medrol-Dosepak to assist with her pain as well. She will follow up in 2 weeks for reevaluation of her knee pain. She voices that when she returns she would like to discuss her LEFT shoulder at that time. Follow up: Return in 2 weeks (on 07/23/2022) for Visit with Imaging (LEFT shoulder). MUKESH FLORES documented in this encounter Plan [...] as of this encounter Results * XR KNEE STAND AP MARITZA ONLY (07/09/2022 10:19 AM CDT) Anatomical Region Laterality Modality Knee Radiographic Charlotte ging 07/09/2022 10:4 2 AM CDT Impressions 07/09/2022 10:43 AM CDT IMPRESSION: 1. No acute radiographic findings. Ordered By: DANIEL GARCIA Interpreted By: Casey Gonzalez MD, 07/09/2022 10:42 AM Narrative 07/09/2022 10:43 AM CDT Examination: XR KNEE RT 2V, XR KNEE STAND AP MARITZA ONLY Exam time: 07/09/2022 10:19 AM Clinical history: Right knee pain. Comparison: None Technique: Lateral and sunrise views of the right knee as well as a PA weightbearing view of the bilateral knees. Findings: No acute fracture or dislocation. Right total knee arthroplasty and patellar resurfacing without findings to suggest hardware failure or loosening. Additional left total knee arthroplasty. No unexpected radiopaque foreign body. Small suprapatellar effusion of the right knee. Procedure Note Casey Gonzalez MD - 07/09/2022 Examination: XR KNEE RT 2V, XR KNEE STAND AP MARITZA ONLY Exam time: 07/09/2022 10:19 AM Clinical history: Right knee pain. Comparison: None Technique: Lateral and sunrise views of the right knee as well as a PAweightbearing view of the bilateral knees. Findings: No acute fracture or dislocation. Right total knee arthroplastyand patellar resurfacing without findings to suggest hardware failure orloosening. Additional left total knee arthroplasty. No unexpectedradiopaque foreign body. Small suprapatellar effusion of the right knee. IMPRESSION: 1. No acute radiographic findings. Ordered By: DANIEL GARCIA Interpreted By: Casey Gonzalez MD, 07/09/2022 10:42 AM Daniel Garcia PHOTOGRAMMETRIC STEREO COMPILER-BC GENERAL IMAGING Final Resu lt * XR KNEE RT 2V (07/09/2022 10:19 AM CDT) Anatomical Region Laterality Modality Knee Radiographic Charlotte ging 07/09/2022 10:4 2 AM CDT Impressions 07/09/2022 10:43 AM CDT IMPRESSION: 1. No acute radiographic findings. Ordered By: DANIEL GARCIA Interpreted By: Casey Gonzalez MD, 07/09/2022 10:42 AM Narrative 07/09/2022 10:43 AM CDT Examination: XR KNEE RT 2V, XR KNEE STAND AP MARITZA ONLY Exam time: 07/09/2022 10:19 AM Clinical history: Right knee pain. Comparison: None Technique: Lateral and sunrise views of the right knee as well as a PA weightbearing view of the bilateral knees. Findings: No acute fracture or dislocation. Right total knee arthroplasty and patellar resurfacing without findings to suggest hardware failure or loosening. Additional left total knee arthroplasty. No unexpected radiopaque foreign body. Small suprapatellar effusion of the right knee. Procedure Note Casey Gonzalez MD - 07/09/2022 Examination: XR KNEE RT 2V, XR KNEE STAND AP MARITZA ONLY Exam time: 07/09/2022 10:19 AM Clinical history: Right knee pain. Comparison: None Technique: Lateral and sunrise views of the right knee as well as a PAweightbearing view of the bilateral knees. Findings: No acute fracture or dislocation. Right total knee arthroplastyand patellar resurfacing without findings to suggest hardware failure orloosening. Additional left total knee arthroplasty. No unexpectedradiopaque foreign body. Small suprapatellar effusion of the right knee. IMPRESSION: 1. No acute radiographic findings. Ordered By: DANIEL GARCIA Interpreted By: Casey Gonzalez MD, 07/09/2022 10:42 AM us Daniel Garcia PHOTOGRAMMETRIC STEREO COMPILER-BC GENERAL IMAGING Final Resu lt documented in this encounter Visit Diagnoses Diagnosis Follow-up examination after orthopedic surgery- Primary Follow-up examination, following other surgery Pes anserinus bursitis of right knee Pes anserinus tendinitis or bursitis documented in this encounter Administered Medications Inactive Administered Medications - up to 3 most recent administrations Medication Order MAR Action Action Date Dose Rate Site lidocaine (XYLOCAINE) 1 % injection SOLN 1 mL 1 mL, Other, Once, 1 dose, On Thu07/09/22 at 1100Indications:Pes anserinus bursitis of right knee Given 07/09/2022 10:33 AM CDT 1 mL methylPREDNISolone acetate (DEPO-Medrol) injection 80 mg 80 mg, Other, Once, 1 dose, On Thu07/09/22 at 1100, Adalbertoke WellIndications:Pes anserinus bursitis of right knee Given 07/09/2022 10:33 AM CDT 80 mg documented in this encounter Care Teams Cube Cutter Relationship Specialty Start Date End Date Sebastien Sequeira MD [address] [place] [address] PCP - General INTERNAL MEDICINE 08/02/20 documented as of this encounter
--- OUTSIDE RECORDS SUMMARY | 2024-09-13 06:32 | XMS_ITS | Encounter Summary ---
Author Organization [facility] Address [facility] [place] [address] [place] [address] Care Team Providers Care Hot Roll Laminator Name Role Phone Sebastien Sequeira MD Primary Care Provider Encounter Details Date Type Department Care Team (Latest Contact Info) Description 08/06/2022 Travel Social History Tobacco Use Types Packs/Day [...] In the last 10 days, have manolo u been in contact with someone who was confirmed or suspected to have Coronavirus/COVID-19? No / Unsure 08/06/2022 3:31 PM MANAGER DOMESTIC documented as of this encounter Functional Status [...] on filedocumented in this encounter Care Teams Hot Roll Laminator Relationship Specialty Start Date End Date Sebastien Sequeira MD [address] [place] [address] PCP - General INTERNAL MEDICINE 08/02/20 documented as of this encounter
--- OUTSIDE RECORDS SUMMARY | 2024-09-13 06:32 | XMS_ITS | Encounter Summary ---
Author Organization [facility] Address [address] [place] [address]. [place] [address] [place] [address] Care Team Providers Care Him Tech Name Role Phone Sebastien Sequeira MD Primary Care Provider [phone] Encounter Details Date Type Department Care Team (Late st Contact Info) Description 07/07/2022 Orders Only [facility] [place] [id number] [facility] [address] [place] [address] Adele Garcia, [facility] [address] [facility] [place] [id number] Social History Tobacco Use Types Packs/Day Years [...] AM CDT documented as of this encounter Functional Status [...] as of this encounter Visit Diagnoses Diagnosis Follow-up examination after orthopedic surgery- Primary Follow-up examination, following other surgery documented in this encounter Care Teams Him Tech Relationship Specialty Start Date End Date Sebastien Sequeira MD [address] [place] [address] PCP - General INTERNAL MEDICINE 08/02/20 documented as of this encounter
--- OUTSIDE RECORDS SUMMARY | 2024-09-13 06:32 | XMS_ITS | Encounter Summary ---
Author Organization [facility] Address [facility] [place] [address] [place] [address] Care Team Providers Care Software Licensing Executive Name Role Phone Sebastien Sequeira MD Primary Care Provider [phone] Reason for Referral * Surgical (Routine) - Closed Specialty Diagnoses / Procedures Referred By Aaron rai Referred To Contact Diagnoses Pes anserinus bursitis of right knee Procedures Case request operating room: RIGHT hamstring tenotomy Gustavo So MD [address] [place] [id number] Phone: tel: fax: Referral ID Status Reason Start Date Expiration Date Visits Re quested Visits Authorized [id number] Closed 08/06/2022 08/06/2023 1 1 UM TRAPPER Encounter Details Date Type Department Care Team (Late st Contact Info) Description 08/06/2022 Prep for Procedure [facility] [address], [place] [address] Gustavo So MD [address] [place] [address] Social History Tobacco Use Types Packs/Day Years [...] Coronavirus/COVID-19? No / Unsure 08/06/2022 3:31 PM POSSUM TRAPPER documented as of this encounter Functional Status [...] in this encounter Plan of Treatment Scheduled Orders Name Type Priority Associated Diagnoses Orde r Schedule Case request operating room: RIGHT hamstring tenotomy Case Request Routine Pes anserinus bursitis of right knee Once for 1 Occurrences starting 08/06/2022 until 08/06/2022 documented as of this encounter Goals Goal [...] as of this encounter Visit Diagnoses Diagnosis Pes anserinus bursitis of right knee- Primary Pes anserinus tendinitis or bursitis documented in this encounter Care Teams Software Licensing Executive Relationship Specialty Start Date End Date Sebastien Sequeira MD [address] [place] [address] PCP - General INTERNAL MEDICINE 08/02/20 documented as of this encounter
--- OUTSIDE RECORDS SUMMARY | 2024-09-13 06:32 | XMS_ITS | Encounter Summary ---
Author Organization [facility] Address [address] [place] [address]. [place] [address] [place] [address] Care Team Providers Care High School Drafting Teacher Name Role Phone Sebastien Sequeira MD Primary Care Provider [phone] Reason for Visit * Reason Onset Date Comments Follow Up Call 08/12/2022 Encounter Details Date Type Department Care Team (Late st Contact Info) Description 08/12/2022 Telephone [facility] [address] [address] Nya Hernandez RNFA Follow Up Call Social History Tobacco Use Types Packs/Day Years [...] was confirmed or suspected to have Coronavirus/COVID-19? Yes 08/11/2022 1:32 PM HISTOLOGICAL ILLUSTRATOR documented as of this encounter Functional Status [...] documented in this encounter Progress Notes * DELICIA Gresham - 08/12/2022 4:20 PM CST Patient did test positive today. Surgery reschedule and patient will keep post- op apt as new pre-opapt. No further questions at this time. Surgery also made aware at this time. OLOGICAL ILLUSTRATOR * DELICIA Gresham - 08/12/2022 9:00 AM CST Patient called and states that has recently tested positive for COVID. Patient would like to know if she can proceed with surgery . Patient states that she has spoken to [facility] surgery who would like to have COVID test done morning of surgery. RN advised that if patient should start tohave symptoms she should contact our office. Patient states that she actually started to have running nose and aching this morning. Patient states that she has a televisit with her PCP this morning and will update our office. RN advised that in the event that she is currently positive, surgery willneed to be delayed 4 weeks from positive. No further questions, patient will update our office later today and decision will be made regarding surgery. OLOGICAL ILLUSTRATOR documented in this encounter Plan of Treatment [...] on filedocumented in this encounter Care Teams High School Drafting Teacher Relationship Specialty Start Date End Date Sebastien Sequeira MD [address] [place] [id number] PCP - General INTERNAL MEDICINE 08/02/20 documented as of this encounter
--- OUTSIDE RECORDS SUMMARY | 2024-09-13 06:32 | XMS_ITS | Encounter Summary ---
Author Organization [facility] Address [facility] [place] [address] [place] [address] Care Team Providers Care Malt Liquors Sales Representative Name Role Phone Sebastien Sequeira MD Primary Care Provider [phone] Encounter Details Date Type Department Care Team (Late st Contact Info) Description 12/03/2022 Orders Only [facility] [address], [facility] [address] [place] [address] Gustavo So MD [address] [place] [address] Social History Tobacco Use Types Packs/Day Years [...] * XR KNEE STAND AP MARITZA ONLY (12/03/2022 2:39 PM CDT) Anatomical Region Laterality Modality Knee Radiographic Charlotte ging 12/03/2022 5:28 PM CDT Impressions 12/03/2022 5:31 PM CDT IMPRESSION: 1) Stable appearance of the right knee prosthesis with no malalignment or acute bony abnormalities. 2. Left knee prosthesis remaining in place. Ordered By: GUSTAVO SO Interpreted By: Rafy Louis MD, 12/03/2022 5:28 PM Narrative 12/03/2022 5:31 PM CDT Examination: XR KNEE RT 2V, XR KNEE STAND AP MARITZA ONLY Exam time: 12/03/2022 2:39 PM Clinical history: Pain and swelling of the right knee. Comparison: Comparison made to October 31, 2022. Technique: 2 views of the right knee and bilateral weightbearing radiographs. Findings: On the right side again noted is a right knee prosthesis. As compared to the prior study the osseous structures and the prosthesis are the same. Surrounding soft tissues are also the same with small calcifications seen projecting superior to the patella. There is suggestion of effusion in the joint. On the left side unchanged appearance of the prosthesis. Procedure Note Rafy Louis MD - 12/03/2022 Examination: XR KNEE RT 2V, XR KNEE STAND AP MARITZA ONLY Exam time: 12/03/2022 2:39 PM Clinical history: Pain and swelling of the right knee. Comparison: Comparison made to October 31, 2022. Technique: 2 views of the right knee and bilateral weightbearingradiographs. Findings: On the right side again noted is a right knee prosthesis. Ascompared to the prior study the osseous structures and the prosthesis arethe same. Surrounding soft tissues are also the same with smallcalcifications seen projecting superior to the patella. There issuggestion of effusion in the joint. On the left side unchanged appearance of the prosthesis. IMPRESSION: 1) Stable appearance of the right knee prosthesis with no malalignment oracute bony abnormalities. 2. Left knee prosthesis remaining in place. Ordered By: GUSTAVO SO Interpreted By: Rafy Louis MD, 12/03/2022 5:28 PM Gustavo So MD GENERAL IMAGING Final Result * XR KNEE RT 2V (12/03/2022 2:39 PM CDT) Anatomical Region Laterality Modality Knee Radiographic Charlotte ging 12/03/2022 5:28 PM CDT Impressions 12/03/2022 5:31 PM CDT IMPRESSION: 1) Stable appearance of the right knee prosthesis with no malalignment or acute bony abnormalities. 2. Left knee prosthesis remaining in place. Ordered By: GUSTAVO SO Interpreted By: Rafy Louis MD, 12/03/2022 5:28 PM Narrative 12/03/2022 5:31 PM CDT Examination: XR KNEE RT 2V, XR KNEE STAND AP MARITZA ONLY Exam time: 12/03/2022 2:39 PM Clinical history: Pain and swelling of the right knee. Comparison: Comparison made to October 31, 2022. Technique: 2 views of the right knee and bilateral weightbearing radiographs. Findings: On the right side again noted is a right knee prosthesis. As compared to the prior study the osseous structures and the prosthesis are the same. Surrounding soft tissues are also the same with small calcifications seen projecting superior to the patella. There is suggestion of effusion in the joint. On the left side unchanged appearance of the prosthesis. Procedure Note Rafy Louis MD - 12/03/2022 Examination: XR KNEE RT 2V, XR KNEE STAND AP MARITZA ONLY Exam time: 12/03/2022 2:39 PM Clinical history: Pain and swelling of the right knee. Comparison: Comparison made to October 31, 2022. Technique: 2 views of the right knee and bilateral weightbearingradiographs. Findings: On the right side again noted is a right knee prosthesis. Ascompared to the prior study the osseous structures and the prosthesis arethe same. Surrounding soft tissues are also the same with smallcalcifications seen projecting superior to the patella. There issuggestion of effusion in the joint. On the left side unchanged appearance of the prosthesis. IMPRESSION: 1) Stable appearance of the right knee prosthesis with no malalignment oracute bony abnormalities. 2. Left knee prosthesis remaining in place. Ordered By: GUSTAVO SO Interpreted By: Rafy Louis MD, 12/03/2022 5:28 PM us Gustavo So MD GENERAL IMAGING Final Result documented in this encounter Visit Diagnoses Diagnosis History of total knee arthroplasty, right- Primary History of total knee arthroplasty, right documented in this encounter Care Teams M[employer] Liqu[employer] Sales Representative Relationship Specialty Start Date End Date Sebastien Sequeira MD [address] [place] [address] PCP - General INTERNAL MEDICINE 08/02/20 documented as of this encounter
--- OUTSIDE RECORDS SUMMARY | 2024-09-13 06:32 | XMS_ITS | Encounter Summary ---
Author Organization [facility] Address [facility] [place] [address] [place] [address] Care Team Providers Care Corporate Tax Preparer Name Role Phone Sebastien Sequeira MD Primary Care Provider [phone] Encounter Details Date Type Department Care Team (Latest Contact Info) Description 07/09/2022 Travel Social History Tobacco Use Types Packs/Day [...] on filedocumented in this encounter Care Teams Corporate Tax Preparer Relationship Specialty Start Date End Date Sebastien Sequeira MD [address] [place] [address] PCP - General INTERNAL MEDICINE 08/02/20 documented as of this encounter
--- OUTSIDE RECORDS SUMMARY | 2024-09-13 06:32 | XMS_ITS | Encounter Summary ---
Author Organization [facility] Address [address] [place] [address]. [place] [address] [place] [address] Care Team Providers Care Cone Treater Name Role Phone Sebastien Sequeira MD Primary Care Provider [phone] Reason for Visit * Reason Comments Pre-Op Exam RIGHT hamstring teno rosalia Encounter Details Date Type Department Care Team (Latest Contact Info) Description 08/27/2022 3:15 PM CAMELID FIBER SORTER Office Visit [facility] [place] [id number] Gustavo So MD [address] [place], [place] [id number] Pre-Op Exam (RIGHT hamstring tenotomy) Social History Tobacco Use Types Packs/Day Years [...] suspected to have Coronavirus/COVID-19? No / Unsure 08/27/2022 3:08 PM CAMELID FIBER SORTER documented as of this encounter Last Filed Vital Signs Vital Sign Reading Time Taken Comments Blood Pressure - - Pulse - - Temperature - - Respiratory Rate - - Oxygen Saturation - - Inhaled Oxygen Concentration - - Weight 127.9 kg (282 lb) 08/27/2022 3:10 PM CAMELID FIBER SORTER Height 177.8 cm (5' 10 ) 08/27/2022 3:10 PM CAMELID FIBER SORTER Body Mass Index 40.46 08/27/2022 3:10 PM CAMELID FIBER SORTER documented in this encounter Functional Status * [...] documented in this encounter Progress Notes * Gustavo So MD - 08/27/2022 3:15 PM CST Chief Complaint: Pre-Op Exam (RIGHT hamstring tenotomy) History of Present Illness: Gilma Mills is a 72-year-old female who presents to the office for Pre-Op Exam (RIGHT hamstring tenotomy) Patient here in clinic for Pre-Op exam for RIGHT Hamstring Tenotomy. Surgery date is scheduled for 09/11/22. States is having little pain to anterior aspect of RIGHT knee. has night pain. Denies numbness, tingling, bruising. has occasional swelling. uses ice and heat with heat helping more. takes tylenol and ibuprofen with poor relief. Ambulates using a cane. has had therapy in past without results. Patient is retired. ROS: See HPI for pertinent positives Problem [...] post reverse arthroplasty of right shoulder ??? Pes anserinus bursitis of right knee ??? Painful orthopaedic hardware (CMS/HCC) ??? Osteoarthritis of left glenohumeral joint History: Past Medical History: Diagnosis Date ??? [...] status: Tobacco Use ??? Smoking status: Never ??? Smokeless tobacco: Never Vaping Use ??? Vaping Use: Never used Substance and Sexual Activity ??? Alcohol use: Not Currently ??? Drug use: Never Medications: Current Outpatient Medications: ??? busPIRone 15 MG tablet, Take 1 tablet by mouth daily as needed. , Disp: , Rfl: ??? clopidogrel 75 MG tablet, Take 1 tablet by mouth daily., Disp: , Rfl: ??? EUTHYROX 125 MCG tablet, Take 125 mcg by mouth daily., Disp: , Rfl: ??? ezetimibe 10 MG tablet, Take 10 mg by mouth daily., Disp: , Rfl: ??? furosemide 20 MG tablet, Take 1 tablet by mouth as needed. , Disp: , Rfl: ??? nortriptyline 25 MG capsule, Take 1 capsule by mouth nightly at bedtime., Disp: , Rfl: ??? pantoprazole EC 40 MG tablet, Take 40 mg by mouth daily., Disp: , Rfl: ??? pregabalin (LYRICA) 150 MG capsule, Take 150 mg by mouth 3 (three) times daily., Disp: , Rfl: ??? propranolol LA [...] by mouth daily., Disp: , Rfl: ??? traMADol (ULTRAM) 50 MG tablet, Take 1 tablet (50 mg total) by mouth every 6 (six) hours as needed for Pain. Indications: Chronic Pain, Disp: 15 tablet, Rfl: 0 ??? venlafaxine XR 150 MG 24 hr capsule, Take 1 capsule by mouth daily., Disp: , Rfl: Allergies Allergen Reactions ??? Contrave [Naltrexone-Bupropion Hcl Er] Dizziness ??? Zanaflex [Tizanidine] Other (see comment) hypotension ??? Statins Rash Objective: Body mass index is 40.46 kg/m??. Last Recorded Weight 08/27/22 1510 Weight: 127.9 kg (282 lb) Physical exam: Constitutional: Alert and in no acute distress. Neurological: The patient was oriented to person, place, and time. Eyes: The sclera and conjunctiva were normal ENT: Hearing was normal. Neck: The appearance of the neck was normal. Cardiovascular: Normal pulses. Pulmonary: No respiratory distress. Skin: No injuries or skin lesion. Musculoskeletal: Right knee again demonstrates tenderness over the Pes anserine bursa. Knee ligaments are stable and there is no swelling or erythema. Neurovascularly intact Results: Assessment: Encounter Diagnose(s) ICD-10-CM ICD-9-CM SNOMED CT(R) 1. Pes anserinus bursitis of right knee M70.51 726.61 PES ANSERINUS BURSITIS OF RIGHT KNEE traMADol(ULTRAM) 50 MG tablet Plan: Patient had COVID in her previous surgery date was delayed because of that. She now is ready to move ahead with hamstring tenotomy on the right because of persistent discomfort. She had previous injection with short-term relief. She is doing some traveling over the holidays and has increasing pain because of sitting in the vehicle so I will give her some Ultram to help. I reviewed risks and benefits again and she agrees to move forward with right hamstring tenotomy Follow up: Return for Post-Op. GUSTAVO SO MD LID FIBER SORTER documented in this encounter Plan of Treatment [...] bursitis documented in this encounter Care Teams Cone Treater Relationship Specialty Start Date End Date Sebastien eSqueira MD [address] [place] [address] PCP - General INTERNAL MEDICINE 08/02/20 documented as of this encounter
--- OUTSIDE RECORDS SUMMARY | 2024-09-13 06:32 | XMS_ITS | Encounter Summary ---
Author Organization [facility] Address [facility] [place] [address] [place] [address] Care Team Providers Care Gasateria Attendant Name Role Phone Sebastien Sequeira MD Primary Care Provider [phone] Encounter Details Date Type Department Care Team (Latest Contact Info) Description 10/09/2021 1:24 PM BASKETBALL COMMENTATOR - 10/09/2021 11:59 PM BASKETBALL COMMENTATOR Hospital Encounter [facility] [address] [place] [address] Gustavo So MD [address] [place] [address] Discharge Disposition: Home or Self [...] have Coronavirus / COVID-19? No / Unsure 10/08/2021 2:47 PM BASKETBALL COMMENTATOR documented as of this encounter Functional Status [...] this encounter Medications at Time of Discharge ezetimibe 10 MG tablet Take 1 tablet (10 mg total) by mouth nightly at bedtime. 06/18/2020 nortriptyline 25 MG capsule Take 1 capsule (25 mg total) by mouth nightly at bedtime. 11/15/2013 pantoprazole EC 40 MG tablet Take 1 tablet (40 mg total) by mouth every morning. 06/29/2020 rOPINIRole 2 MG tablet Take 2 tablets [...] by mouth as needed. 01/14/2020 08/18/2023 pregabalin 200 MG capsule Take 200 mg by mouth 2 (two) times daily. 12/26/2020 07/09/2022 propranolol LA 160 MG 24 hr capsule Take 1 capsule (160 mg total) by mouth daily. 05/11/2020 08/18/2023 spironolactone 50 MG tablet Take 1 tablet (50 mg total) by mouth daily. 03/31/2024 traMADol 50 MG tablet Take 50 mg by mouth every 4 (four) hours as needed. 01/11/2021 07/09/2022 documented as of this encounter Plan of [...] Comments XR SHOULDER RT MIN 2V Routine 10/09/2021 2:02 PM BASKETBALL COMMENTATOR Status post reverse arthroplasty of right shoulder documented in this encounter Results * XR SHOULDER RT MIN 2V (10/09/2021 2:02 PM BASKETBALL COMMENTATOR) Anatomical Region Laterality Modality Shoulder Radiographic Charlotte ging 10/09/2021 6:44 PM BASKETBALL COMMENTATOR Impressions 10/09/2021 6:45 PM BASKETBALL COMMENTATOR IMPRESSION: 1) Stable appearance of the right shoulder arthroplasty. Ordered By: GUSTAVO SO Interpreted By: Rafy Louis MD, 10/09/2021 6:44 PM Narrative 10/09/2021 6:45 PM BASKETBALL COMMENTATOR Examination: XR SHOULDER RT MIN 2V Exam time: 10/09/2021 2:02 PM Clinical history: Status post shoulder arthroplasty. Comparison: Prior studies 08/28/2021 Technique: 2 views. Findings: There is evidence of reverse shoulder arthroplasty. There is no acute bony abnormalities or malalignment. Surrounding soft tissues are unremarkable. Procedure Note Rafy Louis MD - 10/09/2021 Examination: XR SHOULDER RT MIN 2V Exam time: 10/09/2021 2:02 PM Clinical history: Status post shoulder arthroplasty. Comparison: Prior studies 08/28/2021 Technique: 2 views. Findings: There is evidence of reverse shoulder arthroplasty. There is noacute bony abnormalities or malalignment. Surrounding soft tissues areunremarkable. IMPRESSION: 1) Stable appearance of the right shoulder arthroplasty. Ordered By: GUSTAVO SO Interpreted By: Rafy Louis MD, 10/09/2021 6:44 PM Gustavo So MD GENERAL IMAGING Final Result documented in this encounter Visit Diagnoses Diagnosis Status post reverse arthroplasty of right shoulder documented in this encounter Care Teams Gasateria Attendant Relationship Specialty Start Date End Date Sebastien Sequeira MD [address] [place] [phone] PCP - General INTERNAL MEDICINE 08/02/20 documented as of this encounter
--- OUTSIDE RECORDS SUMMARY | 2024-09-13 06:32 | XMS_ITS | Encounter Summary ---
Author Organization [facility] Address [address] [place] [address]. [place] [address] [place] [address] Care Team Providers Care Junior Network Engineer Name Role Phone Sebastien Sequeira MD Primary Care Provider [phone] Encounter Details Date Type Department Care Team (Late st Contact Info) Description 10/31/2022 Orders Only [facility] [place] [id number] [facility], [facility] 1 [place] [address] Adele Garcia, [facility] [address] [facility] [place] [id number] Social History Tobacco Use Types Packs/Day Years [...] Coronavirus/COVID-19? No / Unsure 10/31/2022 10:15 AM MILK HOUSE WORKER documented as of this encounter Functional Status [...] documented as of this encounter Results * (ABNORMAL) C-REACTIVE PROTEIN (10/31/2022 11:50 AM MILK HOUSE WORKER) C-REACTIVE PROTEIN 0.31(H) <0.30 mg/dL 10/31/2022 12:13 PM MILK HOUSE WORKER [facility] 10/31/2022 11:5 0 AM MILK HOUSE WORKER us Adele Garcia [facility] Final Resu lt [facility] [address] [facility] [place] [address], [place] [phone] * (ABNORMAL) SED RATE, ERYTHROCYTE (ESR) (10/31/2022 11:50 AM MILK HOUSE WORKER) Pathologist [facility] ESR 26(H) 0 - 20 MM/HR 10/31/2022 12:30 PM MILK HOUSE WORKER [facility] Comment:NOTE: ANEMIA, IF PRE SENT, MAY CAUSE AN ELEVATED SEDIMENTATION RATE. 10/31/2022 11:5 0 AM MILK HOUSE WORKER us Adele M Jose [facility] Final Resu lt [facility] [place] [address], [place] [phone] * (ABNORMAL) CBC W/DIFF AUTOMATED (10/31/2022 11:50 AM MILK HOUSE WORKER) [facility] WBC 5.76 4.00 - 10.80 x10'3/uL 10/31/2022 11:56 AM [facility] RBC 4.21 4.10 - 5.40 x10'6/uL 10/31/2022 11:56 AM [facility] HGB 13.1 12.0 - 16.0 G/DL 10/31/2022 11:56 AM [facility] HCT 40.3 36.0 - 47.0 % 10/31/2022 11:56 AM [facility] MCV 95.7 78.0 - 100.0 FL 10/31/2022 11:56 AM [facility] MCH 31.1(H) 27.0 - 31.0 PG 10/31/2022 11:56 AM [facility] MCHC 32.5(L) 33.0 - 36.0 G/DL 10/31/2022 11:56 AM [facility] RDW 12.4 11.5 - 14.5 % 10/31/2022 11:56 AM [facility] PLT 208 150 - 350 x10'3/uL 10/31/2022 11:56 AM [facility] MPV 9.1 7.4 - 10.4 FL 10/31/2022 11:56 AM [facility] CBC COMMENT NORMAL REFERENCE RANGE NOT ESTABLISHED FOR THE PROPORTIONAL LEUKOCYTE DIFFERENTIAL. 10/31/2022 11:56 AM [facility] NEUTROPHILS % 61.1 % 10/31/2022 11:56 AM [facility] LYMPHOCYTES % 22.4 % 10/31/2022 11:56 AM [facility] MONOCYTES % 8.5 % 10/31/2022 11:56 AM [facility] EOSINOPHILS % 7.1 % 10/31/2022 11:56 AM [facility] BASOPHILS % 0.7 % 10/31/2022 11:56 AM [facility] IMMATURE GRANS % 0.2 % 10/31/19 11:56 AM [facility] NRBC 0.0 % 10/31/2022 11:56 AM [facility] ABS. NEUTROPHILS 3.52 1.60 - 8.30 x10'3/uL 10/31/2022 11:56 AM [facility] ABS. LYMPHOCYTES 1.29 0.80 - 4.70 x10'3/uL 10/31/2022 11:56 AM [facility] ABS. MONOCYTES 0.49 0.00 - 1.50 x10'3/uL 10/31/2022 11:56 AM [facility] ABS. EOSINOPHILS 0.41(H) 0.00 - 0.40 x10'3/uL 10/31/2022 11:56 AM [facility] ABS. BASOPHILS 0.04 0.00 - 0.20 x10'3/uL 10/31/2022 11:56 AM [facility] ABS. IMMATURE GRANULOCYTES 0.01 0.00 - 0.03 x10'3/uL 10/31/2022 11:56 AM [facility] ABS. NUCLEATED RBC'S 0.00 0.00 x10'3/uL 10/31/2022 11:56 AM MILK HOUSE WORKER [facility] 10/31/2022 11:5 0 AM MILK HOUSE WORKER us Adele Garcia [employer] Final Resu lt [facility] [address] [place] [address], documented in this encounter Visit Diagnoses Diagnosis History of total knee arthroplasty, right- Primary documented in this encounter Care Teams Junior Network Engineer Relationship Specialty Start Date End Date Sebastien Sequeira MD [address] [place] [phone] PCP - General INTERNAL MEDICINE 08/02/20 documented as of this encounter
--- OUTSIDE RECORDS SUMMARY | 2024-09-13 06:32 | XMS_ITS | Encounter Summary ---
Author Organization [facility] Address [address] [place] [address]. [place] [address] [place] [address] Care Team Providers Care Technology Methodology Consultant Name Role Phone Sebastien Sequeira MD Primary Care Provider [phone] Reason for Visit * Reason Comments Postop Followup DOS: 06/24/21 RIGHT reverse total shoulder arthroplasty Encounter Details Date Type Department Care Team (Latest Contact Info) Description 10/09/2021 1:30 PM SCHOOL COORDINATOR Office Visit [facility] [address] [address] Gustavo So MD [address] [place] [id number] Postop Followup (DOS: 06/24/21 RIGHT reverse total shoulder arthroplasty) Social History Tobacco Use Types Packs/Day Years [...] COVID-19? No / Unsure 10/08/2021 2:47 PM SCHOOL COORDINATOR documented as of this encounter Last Filed Vital Signs Vital Sign Reading Time Taken Comments Blood Pressure - - Pulse - - Temperature - - Respiratory Rate - - Oxygen Saturation - - Inhaled Oxygen Concentration - - Weight 133.8 kg (295 lb) 10/09/2021 1:24 PM SCHOOL COORDINATOR Height 177.8 cm (5' 10 ) 10/09/2021 1:24 PM SCHOOL COORDINATOR Body Mass Index 42.33 10/09/2021 1:24 PM SCHOOL COORDINATOR documented in this encounter Functional Status * [...] Progress Notes * Gustavo So MD - 10/09/2021 1:30 PM CST Chief Complaint: Postop Followup (DOS: 06/24/21 RIGHT reverse total shoulder arthroplasty) History of Present Illness: Gilma Mills is a 71-year-old female who presents to the office for Postop Followup (DOS: 06/24/21 RIGHT reverse total shoulder arthroplasty) Patient comes in to clinic today for follow up of RIGHT shoulder surgery. She reports pain in her RIGHT shoulder after therapy and on occasion. She reports improvement since previous visit. Denies any swelling or tingling. Occasional numbness to her fingers. She completed physical therapy today with good results. She reports improvement in ROM and decreased pain with movements. She is taking Tramadol for pain. She is using a cane for ambulation. She is RIGHT hand dominant. ROS: See HPI for pertinent positives Problem [...] Status post reverse arthroplasty of right shoulder History: Past Medical History: Diagnosis Date ??? [...] shoulder ??? RELEASE HAND/FINGER TENDON Left ??? TOTAL HIP ARTHROPLASTY Left 08/13/2020 ??? [...] Social History Socioeconomic History ??? Marital status: Spouse name: Not on file ??? Number of children: Not on file ??? Years of education: Not on file ??? Highest education level: Not on file Occupational History ??? Not on file Tobacco Use ??? Smoking status: Never Smoker ??? Smokeless tobacco: Never Used Vaping Use ??? Vaping Use: Never used Substance and Sexual Activity ??? Alcohol use: Not Currently ??? Drug use: Never ??? Sexual activity: Not on file Other Topics Concern ??? Not on file Social History Narrative ??? Not on file Social Determinants of Health Financial Resource Strain: Not on file Food Insecurity: Not on file Transportation Needs: Not on file Physical Activity: Not on file Stress: Not on file Social Connections: Not on file Intimate Partner Violence: Not on file Medications: Current Outpatient Medications: ??? busPIRone 15 MG tablet, Take 1 tablet by mouth daily as needed. , Disp: , Rfl: ??? EUTHYROX 125 MCG [...] mouth daily., Disp: , Rfl: ??? pregabalin 200 MG capsule, Take 200 mg by mouth 2 (two) times daily., Disp: , Rfl: ??? propranolol [...] 0.25 OR 0.5 MG/DOSE, SC), Inject 1 tablet into the skin weekly., Disp: , Rfl: ??? spironolactone 50 MG tablet, Take 50 mg by mouth daily., Disp: , Rfl: ??? traMADol 50 MG tablet, Take 50 mg by mouth every 4 (four) hours as needed., Disp: , Rfl: ??? venlafaxine XR 150 MG 24 hr capsule, Take 1 capsule by mouth daily., Disp: , Rfl: Allergies Allergen Reactions ??? Contrave [Naltrexone-Bupropion Hcl Er] Dizziness ??? Zanaflex [Tizanidine] Other (see comment) hypotension ??? Statins Rash Objective: Body mass index is 42.33 kg/m??. Last Recorded Weight 10/09/21 1324 Weight: 133.8 kg (295 lb) Physical exam: Constitutional: Alert and in no acute distress. Neurological: The patient was oriented to person, place, and time. Eyes: The sclera and conjunctiva were normal ENT: Hearing was normal. Neck: The appearance of the neck was normal. Cardiovascular: Normal pulses. Pulmonary: No respiratory distress. Skin: No injuries or skin lesion. Musculoskeletal: Right shoulder exam demonstrates good passive range of motion but she has weaknessand cannot abduct much more than 90 degrees actively. Her external rotation is limited to about 80 degrees actively also. No pain is present Results: X-rays demonstrate good positioning of her right reverse total shoulder arthroplasty with stable components Assessment: Encounter Diagnose(s) ICD-10-CM ICD-9-CM SNOMED CT(R) 1. Status post reverse arthroplasty of right shoulder Z96.611 V43.61 HISTORY OF REVERSE PROSTHETIC TOTAL ARTHROPLASTY OF RIGHT SHOULDER Plan: Patient is doing well with complete resolution of pain that she had preoperatively. She still has some weakness but she has completed physical therapy. She is going to continue with maintenance exercises on her own and I would expect her strength to continue improving. She will return in 3 months for reevaluation with x-rays Follow up: Return in about 3 months (around 01/07/2022). GUSTAVO SO MD OL COORDINATOR documented in this encounter Plan of Treatment [...] as of this encounter Visit Diagnoses Diagnosis Status post reverse arthroplasty of right shoulder- Primary documented in this encounter Care Teams Technology Methodology Consultant Relationship Specialty Start Date End Date Sebastien Sequeira MD [address] [place] [id number] PCP - General INTERNAL MEDICINE 08/02/20 documented as of this encounter
--- OUTSIDE RECORDS SUMMARY | 2024-09-13 06:32 | XMS_ITS | Encounter Summary ---
Author Organization [facility] Address [address] [place] [address]. [place] [address] [place] [address] Care Team Providers Care Gis Mapping Technician Name Role Phone Sebastien Sequeira MD Primary Care Provider Encounter Details Date Type Department Care Team (Late st Contact Info) Description 12/10/2021 mValent Message Enc [facility] [address], [facility] 1 [place] [address] Gustavo So MD [address] [place], [place] [id number] Visit Follow Up Social History Tobacco Use [...] suspected to have Coronavirus/COVID-19? No / Unsure 12/10/2021 1:11 PM CDT documented as of this encounter Functional [...] on filedocumented in this encounter Care Teams Gis Mapping Technician Relationship Specialty Start Date End Date Sebastien Sequeira MD [address] [place] [address] PCP - General INTERNAL MEDICINE 08/02/20 documented as of this encounter
--- OUTSIDE RECORDS SUMMARY | 2024-09-13 06:32 | XMS_ITS | Encounter Summary ---
Author Organization [facility] Address [address] [place] [address]. [place] [address] [place] [address] Care Team Providers Care Braider Operator Name Role Phone Sebastien Sequeira MD Primary Care Provider [phone] Reason for Visit * Reason Onset Date Comments Lab Results 10/31/2022 Encounter Details Date Type Department Care Team (Late st Contact Info) Description 10/31/2022 Telephone [facility] [place] [id number] [place] [phone] Debbi Rodriguez, claims auditor Results Social History Tobacco Use Types Packs/Day Years [...] Coronavirus/COVID-19? No / Unsure 10/31/2022 10:15 AM BUSINESS BANKING SALES ASSISTANT documented as of this encounter Functional Status [...] Progress Notes * Debbi Rodriguez RN - 10/31/2022 12:58 PM CST Left voicemail to return call. Patient returned call and notified her of Labs and to follow up as planned in 4 weeks. Verbalized understanding and no further questions noted. NESS BANKING SALES ASSISTANT NESS BANKING SALES ASSISTANT documented in this encounter Plan of Treatment [...] on filedocumented in this encounter Care Teams Braider Operator Relationship Specialty Start Date End Date Sebastien Sequeira MD [address] [place] [address] PCP - General INTERNAL MEDICINE 08/02/20 documented as of this encounter
--- OUTSIDE RECORDS SUMMARY | 2024-09-13 06:32 | XMS_ITS | Encounter Summary ---
Author Organization [facility] Address [facility] [place] [address] [place] [address] Care Team Providers Care Director Sales And Trade Marketing Name Role Phone Sebastien Sequeira MD Primary Care Provider [phone] Encounter Details Date Type Department Care Team (Late st Contact Info) Description 10/04/2021 Orders Only [facility] [address], [facility] 1 [place] [address] Gustavo So MD [address] [place] [address] Social History Tobacco Use Types Packs/Day Years [...] SHOULDER RT MIN 2V (10/09/2021 2:02 PM BOILER COVERER) Anatomical Region Laterality Modality Shoulder Radiographic [place] ging 10/09/2021 6:44 PM BOILER COVERER Impressions 10/09/2021 6:45 PM BOILER COVERER IMPRESSION: 1) Stable appearance of the right shoulder arthroplasty. Ordered By: GUSTAVO SO Interpreted By: Rafy Louis MD, 10/09/2021 6:44 PM Narrative 10/09/2021 6:45 PM BOILER COVERER Examination: XR SHOULDER RT MIN 2V Exam [...] post reverse arthroplasty of right shoulder- Primary Status post reverse arthroplasty of right shoulder documented in this encounter Care Teams Director Sales And Trade Marketing Relationship Specialty Start Date End Date Sebastien Sequeira MD [address] [place] [id number] PCP - General INTERNAL MEDICINE 08/02/20 documented as of this encounter
--- OUTSIDE RECORDS SUMMARY | 2024-09-13 06:32 | XMS_ITS | Encounter Summary ---
Author Organization [facility] Address [facility] [place] [address] [place] [address] Care Team Providers Care Sight Effects Specialist Name Role Phone Sebastien Sequeira MD Primary Care Provider [phone] Encounter Details Date Type Department Care Team (Late st Contact Info) Description 10/30/2022 Orders Only [facility] [place] [phone] Debbi Rodriguez, RN Social History Tobacco Use Types Packs/Day Years [...] of this encounter Results * XR KNEE RT 2V (10/31/2022 11:03 AM BINGO FLOATER) Anatomical Region Laterality Modality Knee Radiographic [place] ging 11/01/2022 6:08 AM BINGO FLOATER Impressions 11/01/2022 6:10 AM BINGO FLOATER Impression: 1. ??Stable right knee arthroplasty without gross complication. 2. ??Moderate right knee joint effusion. 3. ??Calcific tendinitis of the distal quadriceps tendon. Referred By: ?? Interpreted By: Prince Muñoz MD, 11/01/2022 6:08 AM Narrative 11/01/2022 6:10 AM BINGO FLOATER Date: 10/31/2022 11:03 AM Exam: XR KNEE [...] MD, 11/01/2022 6:08 AM Adele M Jose SITE SPECIALIST-BC GENERAL IMAGING Final Resu lt * XR KNEE STAND AP MARITZA ONLY (10/31/2022 11:03 AM BINGO FLOATER) Anatomical Region Laterality Modality Knee Radiographic [place] ging 11/01/2022 6:08 AM BINGO FLOATER Impressions 11/01/2022 6:10 AM BINGO FLOATER Impression: 1. ??Stable right knee arthroplasty without gross complication. 2. ??Moderate right knee joint effusion. 3. ??Calcific tendinitis of the distal quadriceps tendon. Referred By: ?? Interpreted By: Prince Muñoz MD, 11/01/2022 6:08 AM Narrative 11/01/2022 6:10 AM BINGO FLOATER Date: 10/31/2022 11:03 AM Exam: XR KNEE [...] By: Prince Muñoz MD, 11/01/2022 6:08 AM us Adele Curtis Jose SITE SPECIALIST-BC GENERAL IMAGING Final Resu lt documented in this encounter Visit Diagnoses Diagnosis Right knee pain, unspecified chronicity- Primary Right knee pain, unspecified chronicity documented in this encounter Care Teams Sight Effects Specialist Relationship Specialty Start Date End Date Sebastien Sequeira MD [address] [place] [address] PCP - General INTERNAL MEDICINE 08/02/20 documented as of this encounter
--- OUTSIDE RECORDS SUMMARY | 2024-09-13 06:32 | XMS_ITS | Encounter Summary ---
Author Organization [facility] Address [facility] [place] [address] [place] [address] Care Team Providers Care Industrial Engineer Name Role Phone Sebastien Sequeira MD Primary Care Provider [phone] Encounter Details Date Type Department Care Team (Latest Contact Info) Description 09/23/2022 Travel Social History Tobacco Use Types Packs/Day [...] suspected to have Coronavirus/COVID-19? No / Unsure 09/23/2022 11:23 AM TANK FARM GAUGER documented as of this encounter Functional Status [...] on filedocumented in this encounter Care Teams Industrial Engineer Relationship Specialty Start Date End Date Sebastien Sequeira MD [address] [place] [address] PCP - General INTERNAL MEDICINE 08/02/20 documented as of this encounter
--- OUTSIDE RECORDS SUMMARY | 2024-09-13 06:32 | XMS_ITS | Encounter Summary ---
Author Organization [facility] Address [address] [place] [address]. [place] [address] [place] [address] Care Team Providers Care Individual Pension Consultant Name Role Phone Sebastien Sequeira MD Primary Care Provider [phone] Encounter Details Date Type Department Care Team (Late st Contact Info) Description 12/10/2021 1:25 PM CDT - 12/10/2021 11:59 PM CDT Hospital Encounter [facility] [address] [place] [address] Daniel Garcia, PREPARING BOX TENDER- [address] [place] [phone] Discharge Disposition: Home or Self Care (Routine [...] Degroot RN Active documented in this encounter Medications [...] total) by mouth as needed. 01/14/2020 08/18/2023 gabapentin 100 MG capsule Take 200 mg by mouth 3 (three) times daily. 12/03/2021 07/09/2022 oxyCODONE-acetami nophen 5-325 MG tablet 1 tablet every 4 (four) hours as needed. FOR PAIN 12/03/2021 07/09/2022 pregabalin 200 MG capsule Take 200 mg [...] Comments XR SHOULDER RT MIN 2V Routine 12/10/2021 1:52 PM CDT Status post reverse arthroplasty of right shoulder documented in this encounter Results * XR SHOULDER RT MIN 2V (12/10/2021 1:52 PM CDT) Anatomical Region Laterality Modality Shoulder Radiographic Charlotte ging 12/10/2021 2:09 PM CDT Impressions 12/10/2021 2:10 PM CDT IMPRESSION: Reverse total right shoulder arthroplasty without evidence of interval hardware complication. Ordered By: DANIEL GARCIA Interpreted By: Malachi Benitez MD, 12/10/2021 2:09 PM Narrative 12/10/2021 2:10 PM CDT Examination: XR SHOULDER RT MIN 2V Exam time: 12/10/2021 1:52 PM Indication: Follow-up right shoulder arthroplasty. Comparison: 10/09/2021. Technique: 2 views of the right shoulder, 2 images. Findings: Stable appearance of the reversed total right shoulder arthroplasty without evidence of interval hardware complication. No fracture or dislocation. The acromial clavicular joint is well-maintained. Stable small calcification projecting along the medial aspect of the humerus, likely postsurgical. Procedure Note Malachi Benitez MD - 12/10/2021 Examination: XR SHOULDER RT MIN 2V Exam time: 12/10/2021 1:52 PM Indication: Follow-up right shoulder arthroplasty. Comparison: 10/09/2021. Technique: 2 views of the right shoulder, 2 images. Findings: Stable appearance of the reversed total right shoulderarthroplasty without evidence of interval hardware complication. Nofracture or dislocation. The acromial clavicular joint is well-maintained.Stable small calcification projecting along the medial aspect of thehumerus, likely postsurgical. IMPRESSION: Reverse total right shoulder arthroplasty without evidence ofinterval hardware complication. Ordered By: DANIEL GARCIA Interpreted By: Malachi Benitez MD, 12/10/2021 2:09 PM us Daniel M Jose PREPARING BOX TENDER-BC GENERAL IMAGING Final Resu lt documented in this encounter Visit Diagnoses Diagnosis Status post reverse arthroplasty of right shoulder documented in this encounter Care Teams Individual Pension Consultant Relationship Specialty Start Date End Date Sebastien Sequeira MD [address] [place] [address] PCP - General INTERNAL MEDICINE 08/02/20 documented as of this encounter
--- OUTSIDE RECORDS SUMMARY | 2024-09-13 06:32 | XMS_ITS | Encounter Summary ---
Author Organization [facility] Address [address] [place] [address]. [place] [address] [place] [address] Care Team Providers Care Truck Loader And Unloader Name Role Phone Sebastien Sequeira MD Primary Care Provider [phone] Encounter Details Date Type Department Care Team (Late st Contact Info) Description 10/31/2022 11:41 AM FLOOR WORKER WELL SERVICE - 10/31/2022 11:59 PM FLOOR WORKER WELL SERVICE Hospital Encounter [facility] [address] [place] [place] [phone] Adele Garcia, [facility] [address] [place] [address] Discharge Disposition: Home or Self Care (Routine [...] Coronavirus/COVID-19? No / Unsure 10/31/2022 10:15 AM FLOOR WORKER WELL SERVICE documented as of this encounter Functional Status [...] Diagnosis Comments SED RATE, ERYTHROCYTE (ESR) Routine 10/31/2022 11:50 AM FLOOR WORKER WELL SERVICE History of total knee arthroplasty, right C-REACTIVE PROTEIN Routine 10/31/2022 11 :50 AM FLOOR WORKER WELL SERVICE History of total knee arthroplasty, right CBC W/DIFF AUTOMATED Routine 10/31/2022 11:50 AM FLOOR WORKER WELL SERVICE History of total knee arthroplasty, right documented in this encounter Results * (ABNORMAL) C-REACTIVE PROTEIN (10/31/2022 11:50 AM FLOOR WORKER WELL SERVICE) Pathologist [facility] C-REACTIVE PROTEIN 0.31(H) <0.30 mg/dL 10/31/2022 12:13 PM FLOOR WORKER WELL SERVICE [facility] 10/31/2022 11:5 0 AM FLOOR WORKER WELL SERVICE [facility] LABORATORY Final Resu lt Performing Organization Address [facility]/ZIP Co de Phone Number [facility] [address] [place] [address], * (ABNORMAL) SED RATE, ERYTHROCYTE (ESR) (10/31/2022 11:50 AM FLOOR WORKER WELL SERVICE) Pathologist [facility] ESR 26(H) 0 - 20 MM/HR 10/31/2022 12:30 PM FLOOR WORKER WELL SERVICE [facility] Comment:NOTE: ANEMIA, IF PRE SENT, MAY CAUSE AN ELEVATED SEDIMENTATION RATE. 10/31/2022 11:5 0 AM FLOOR WORKER WELL SERVICE [facility] LABORATORY Final Resu lt Performing Organization Address [facility]/ZIP Co de Phone Number [facility] [address] [place] [id number], * (ABNORMAL) CBC W/DIFF AUTOMATED (10/31/2022 11:50 AM FLOOR WORKER WELL SERVICE) Pathologist [facility] WBC 5.76 4.00 - 10.80 x10'3/uL 10/31/2022 11:56 AM FLOOR WORKER WELL SERVICE [facility] RBC 4.21 4.10 - 5.40 x10'6/uL 10/31/2022 11:56 AM [facility] HGB 13.1 12.0 - 16.0 G/DL 10/31/2022 11:56 AM [facility] HCT 40.3 36.0 - 47.0 % 10/31/2022 11:56 AM [facility] MCV 95.7 78.0 - 100.0 FL 10/31/2022 11:56 AM [facility] MCH 31.1(H) 27.0 - 31.0 PG 10/31/2022 11:56 AM [facility] MCHC 32.5(L) 33.0 - 36.0 G/DL 10/31/2022 11:56 AM [facility] RDW 12.4 11.5 - 14.5 % 10/31/2022 11:56 AM [facility] PLT 208 150 - 350 x10'3/uL 10/31/2022 11:56 AM [facility] MPV 9.1 7.4 - 10.4 FL 10/31/2022 11:56 AM [facility] CBC COMMENT NORMAL REFERENCE RANGE NOT ESTABLISHED FOR THE PROPORTIONAL LEUKOCYTE DIFFERENTIAL. 10/31/2022 11:56 AM [facility] NEUTROPHILS % 61.1 % 10/31/2022 11:56 AM [facility] LYMPHOCYTES % 22.4 % 10/31/2022 11:56 AM [facility] MONOCYTES % 8.5 % 10/31/2022 11:56 AM [facility] EOSINOPHILS % 7.1 % 10/31/2022 11:56 AM [facility] BASOPHILS % 0.7 % 10/31/2022 11:56 AM [facility] IMMATURE GRANS % 0.2 % 10/31/19 11:56 AM [facility] NRBC 0.0 % 10/31/2022 11:56 AM [facility] ABS. NEUTROPHILS 3.52 1.60 - 8.30 x10'3/uL 10/31/2022 11:56 AM FLOOR WORKER WELL SERVICE [facility] ABS. LYMPHOCYTES 1.29 0.80 - 4.70 x10'3/uL 10/31/2022 11:56 AM FLOOR WORKER WELL SERVICE [facility] ABS. MONOCYTES 0.49 0.00 - 1.50 x10'3/uL 10/31/2022 11:56 AM FLOOR WORKER WELL SERVICE [facility] ABS. EOSINOPHILS 0.41(H) 0.00 - 0.40 x10'3/uL 10/31/2022 11:56 AM FLOOR WORKER WELL SERVICE [facility] ABS. BASOPHILS 0.04 0.00 - 0.20 x10'3/uL 10/31/2022 11:56 AM FLOOR WORKER WELL SERVICE [facility] ABS. IMMATURE GRANULOCYTES 0.01 0.00 - 0.03 x10'3/uL 10/31/2022 11:56 AM FLOOR WORKER WELL SERVICE [facility] ABS. NUCLEATED RBC'S 0.00 0.00 x10'3/uL 10/31/2022 11:56 AM FLOOR WORKER WELL SERVICE [facility] 10/31/2022 11:5 0 AM FLOOR WORKER WELL SERVICE us Adele Garcia [facility] Final Resu lt [facility] [address] [place] [address], documented in this encounter Visit Diagnoses Diagnosis History of total knee arthroplasty, right documented in this encounter Care Teams Truck Loader And Unloader Relationship Specialty Start Date End Date Sebastien Sequeira MD [address] [place] [address] PCP - General INTERNAL MEDICINE 08/02/20 documented as of this encounter
--- OUTSIDE RECORDS SUMMARY | 2024-09-13 06:32 | XMS_ITS | Encounter Summary ---
Author Organization [facility] Address Critical access hospital6 [facility] [place] [address] [place] [address] Care Team Providers Care Twister Operator Name Role Phone Sebastien Sequeira MD Primary Care Provider [phone] Reason for Visit * Auth/Cert (Routine) Specialty Diagnoses / Procedures Referred By Contdennis t Referred To Contact Diagnoses Pes anserinus bursitis of right knee M70.51 Procedures RIGHT hamstring tenotomy Gustavo So MD [address] [place] [address] Phone: tel: fax: Referral ID Status Reason Start Date Expiration Date Visits Re quested Visits Authorized [id number] 1 1 Encounter Details Date Type Department Care Team (Late st Contact Info) Description 09/11/2022 2:49 PM FASHION CONSULTANT - 09/11/2022 3:54 PM FASHION CONSULTANT [place] [address] [address] Gustavo So MD [address] [place] [address] RIGHT hamstring tenotomy Surgery Details Date/Time Status Location OR Service Patient Class Case Class Case Type Trauma Case? 09/11/2022 2:49 PM Posted [facility] OR OR 2 Orthopedics Short Stay/Outpat ient Surgery No Panel 1 Procedure LRB Anes Op Region Wound Class Comments RIGHT hamstring tenotomy Right General/Block Leg Lower C lean Surgeon Surgeon Role Service Panel Gustavo So MD Primary Orthopedics 1 documented in this encounter Social History Tobacco [...] suspected to have Coronavirus/COVID-19? No / Unsure 09/11/2022 1:12 PM FASHION CONSULTANT documented as of this encounter Last Filed Vital Signs Vital Sign Reading Time Taken Comments Blood Pressure 122/63 09/11/2022 1:49 PM FASHION CONSULTANT Pulse 78 09/11/2022 1:49 PM FASHION CONSULTANT Temperature 36.7 ??C (98 ??F) 09/11/2022 1:49 PM FASHION CONSULTANT Respiratory Rate 20 09/11/2022 1:49 PM FASHION CONSULTANT Oxygen Saturation 95% 09/11/2022 1:49 PM FASHION CONSULTANT Inhaled Oxygen Concentration - - Weight 129.3 kg (285 lb) 09/09/2022 12:53 PM FASHION CONSULTANT Height 177.8 cm (5' 10 ) 09/09/2022 12:53 PM FASHION CONSULTANT Body Mass Index 40.89 09/09/2022 12:53 PM FASHION CONSULTANT documented in this encounter Functional Status * [...] Assessment Author Status No 06/24/2021 11:17 AM CDVania Daly RN Active * Because of a physical, [...] Larson RN Active documented in this encounter Discharge Instructions * Attachments The following attachments cannot be sent through Care Everywhere. * General Anesthesia Discharge Instructions (Spanish) * Wound Care Discharge Instructions (Spanish) documented in this encounter Medications at Time [...] 08/27/2022 03/25/2024 documented as of this encounter H&P Notes * Gustavo So MD - 09/11/2022 3:20 PM CST HISTORY AND PHYSICAL INTERVAL NOTE: I [...] during recuperation were discussed with the patient/family/personal screening representative. Reasonable alternatives to the patient's proposed procedure/surgery including benefits, risks, and side effects related to the alternatives and the risks related to not receiving the proposed care were also discussed with the patient/family/personal screening representative. Questions were answered and the patient/family/personal screening representative verbalized understanding and desires to proceed. ION CONSULTANT Source Note - Gustavo So MD - 08/27/2022 3:15 PM FASHION CONSULTANT Chief Complaint: Pre-Op Exam (RIGHT hamstring tenotomy) History of Present Illness: Gilma Mills is a 72-year-old female who presents to the office for Pre-Op Exam (RIGHT hamstring tenotomy) Patient here in clinic for Pre-Op exam for RIGHT Hamstring Tenotomy. Surgery date is scheduled for 09/11/22. is having little pain to anterior aspect of RIGHT knee. States has night pain. Denies numbness, tingling, bruising. States has occasional swelling. States uses ice and heat with heat helping more. States takes tylenol and ibuprofen with poor relief. Ambulates using a cane. States has had therapy in past without results. [...] up: Return for Post-Op. GUSTAVO SO MD ION CONSULTANT documented in this encounter OR Notes * Op Note - Gustavo So MD - 09/11/2022 4:14 PM CST Gilma Lina 1950 09/11/2022 [id number] Preop diagnosis: Chronic right knee Pes anserine bursitis Postop diagnosis: Same Procedure Description: Right knee hamstring tenotomy Surgeon:GUSTAVO SO MD Anesthesia: General Indication: Patient is a 72-year-old female with chronic bursitis at the Pes anserine. She has beentreated conservatively and injection has provided short- term relief. She continues to struggle withdisability associated with the pain and she presents for the above procedure after reviewing risks and benefits Procedure: After position the patient in supine fashion on the operating room table general anesthesia was administered. Antibiotics were given intravenously and a tourniquet applied to the right proximal thigh. The right lower extremity was prepped and draped in usual sterile fashion. An Esmarch wrap was used to exsanguinate the right lower extremity and the tourniquet inflated to 300 mmHg. Skinincision was marked extending the arthroplasty incision distally and a 4 cm incision was made. I dissected down to the hamstring tendons and sharply incised them using a 15 blade. The tourniquet wasreleased at 4 minutes and electrocautery used obtain hemostasis. The wound was copiously irrigated and #1 Vicryl used to close space while 2-0 Vicryl was used to close subcutaneous tissue. 4-0 Vicryl was used to close the skin using a running subcuticular stitch which was reinforced with benzoin and Steri-Strips. The region of the wound was infiltrated with half percent Marcaine. Sterile dressing was applied and overwrapped with Webril. The drapes then withdrawn and an Chai wrap used overwrap the dressings. General anesthesia was discontinued and the patient was transferred to her stretcher then to the PACU in good condition ION CONSULTANT * Brief Op Note - Gustavo So MD - 09/11/2022 4:14 PM CST [facility] Brief Op HSHSRIGHT hamstring tenotomy Procedure Note Gilma Lina 09/11/2022 1449 Procedure(s) (LRB): RIGHT hamstring tenotomy (Right) Surgeon(s): Gustavo So MD Senior Engineering Manager: None Anesthesia: General/Block Pre-Op Diagnosis: M70.51 Post-Op Diagnosis: Same Findings: Estimated Blood Loss: Minimal Specimens: None GUSTAVO SO MD Date: 09/11/2022 Time: 4:14 PM ION CONSULTANT documented in this encounter Plan of Treatment [...] Procedure Name Priority Date/Time Associated Diagnosis Comments REPAIR TENDON HAMSTRING 09/11/2022 3:15 PM FASHION CONSULTANT Pes anserinus bursitis of right knee documented in this encounter Visit Diagnoses Diagnosis Pes anserinus bursitis of right knee- Primary Pes anserinus tendinitis or bursitis Pes anserinus bursitis of right knee Pes anserinus tendinitis or bursitis Pes anserinus bursitis of right knee Pes anserinus tendinitis or bursitis documented in this encounter Admitting Diagnoses Diagnosis Pes anserinus bursitis of right knee Pes anserinus tendinitis or bursitis documented in this encounter Administered Medications Inactive Administered Medications - up to 3 most recent administrations Medication Order MAR Action Action Date Dose Rate Site acetaminophen (TYLENOL) 500 MG tablet 1 dose, Starting on Ermelinda 09/11/22 at 1319, Until Ermelinda 09/11/22 at 1349, Created by cabinet override acetaminophen (TYLENOL) tablet 1,000 mg 1,000 mg, Oral, Once, 1 dose, On Ermelinda 09/11/22 at 1345, Maximum dose of acetaminophen is 4000 mg from all sources in 24 hours., Pre-Op Given 09/11/2022 1:49 PM FASHION CONSULTANT 1,000 mg BUpivacaine-EPINEPHri ne PF 0.5% -[id number] injection As needed, Starting on Ermelinda 09/11/22 at 1558, Until Ermelinda 09/11/22 at 1614, Intra-Op Given 09/11/2022 3:58 PM FASHION CONSULTANT 10 mLs Incision Site celecoxib (CeleBREX) 100 MG capsule 1 dose, Starting on Ermelinda 09/11/22 at 1319, Until Ermelinda 09/11/22 at 1348, Created by cabinet override celecoxib (CeleBREX) capsule 200 mg 200 mg, Oral, Once, 1 dose, On Ermelinda 09/11/22 at 1345, Do not administer with antacids, Pre-Op Given 09/11/2022 1:48 PM FASHION CONSULTANT 200 mg chlorhexidine (PERIDEX) 0.12 % solution 15 mL 15 mL, Mouth/Throat, Once, 1 dose, On Ermelinda 09/11/22 at 1345, Patient to perform oral care first. Swish/gargle in mouth for 30 seconds, and then discard prior to going to surgery. If ventilated use saturated swab to clean oral cavity., Pre-Op Given 09/11/2022 1:49 PM FASHION CONSULTANT 15 mLs lactated ringers infusion at 10 mL/hr, Intravenous, Continuous, Starting on Ermelinda 09/11/22 at 1345, Until Emrelinda 09/11/22 at 1954, Infuse at TKO rate, Pre-Op Continued by Anesthesia 09/11/2022 3:24 PM FASHION CONSULTANT 10 mL/hr New Bag 09/11/2022 1:48 PM FASHION CONSULTANT 10 mL/hr sodium chloride 0.9 % 1,000 mL with gentamicin 160 mg irrigation As needed, Starting on Ermelinda 09/11/22 at 1549, Until Ermelinda 09/11/22 at 1614, Intra-Op Given 09/11/2022 3:49 PM FASHION CONSULTANT 1,000 mLs Operative Site documented in this encounter Active and Recently Administered Medications Times are shown in FASHION CONSULTANT. Scheduled Medication Order 09/09/2022 09/10/2022 09/11/2022 acetaminophen (TYLENOL) tablet 1,000 mg (COMPLETED) 1,000 mg, Oral, Once, 1 dose, On Ermelinda 09/11/22 at 1345, Maximum dose of acetaminophen is 4000 mg from all sources in 24 hours., Pre-Op 1349 (Given - Provid er: Stephanie Mcmillan RN) ceFAZolin (ANCEF) 3 g in NS 100 mL IVPB (COMPLETED) 3 g, Intravenous, at 200 mL/hr, call worker person, 1 dose, On Ermelinda 09/11/22 at 1345, Give 3 gram dose for patients greater than or equal to 120 kg. Give within 60 minutes of surgical incision., Pre-Op 1543 (Given - Provid er: Aki Wallis CRNA)1619 (Anesthesia Volume Adjustment - Provider: Aki Wallis CRNA) celecoxib (CeleBREX) capsule 200 mg (COMPLETED) 200 mg, Oral, Once, 1 dose, On Ermelinda 09/11/22 at 1345, Do not administer with antacids, Pre-Op 1348 (Given - Provid er: Stephanie Mcmillan RN) chlorhexidine (PERIDEX) 0.12 % solution 15 mL (COMPLETED) 15 mL, Mouth/Throat, Once, 1 dose, On Ermelinda 09/11/22 at 1345, Patient to perform oral care first. Swish/gargle in mouth for 30 seconds, and then discard prior to going to surgery. If ventilated use saturated swab to clean oral cavity., Pre-Op 1349 (Given - Provid er: Stephanie Mcmillan RN) Continuous Medication Order 09/09/2022 09/10/2022 09/11/2022 lactated ringers infusion at 10 mL/hr, Intravenous, Continuous, Starting on Ermelinda 09/11/22 at 1345, Until Ermelinda 09/11/22 at 1954, Infuse at TKO rate, Pre-Op 1348 (New Bag - Prov ider: Stephanie Mcmillan RN)1524 (Continued by Anesthesia - Provider: Aki Wallis CRNA)1607 (Anesthesia Volume Adjustment - Provider: Aki Wallis CRNA)1619 (Anesthesia Volume Adjustment - Provider: Aki Wallis CRNA)1740 (Infusion Stop Time - Provider: Yola Jose RN) PRN Medication Order 09/09/2022 09/10/2022 09/11/2022 BUpivacaine-EPINEPHrine PF 0.5% -1:[id number] injection (CANCELED) As needed, Starting on Ermelinda 09/11/22 at 1558, Until Ermelinda 09/11/22 at 1614, Intra-Op 1558 (Given - Provid er: Gustavo So MD) sodium chloride 0.9 % 1,000 mL with gentamicin 160 mg irrigation (CANCELED) As needed, Starting on Ermelinda 09/11/22 at 1549, Until Ermelinda 09/11/22 at 1614, Intra-Op 1549 (Given - Provid er: Gustavo So MD) documented in this encounter Care Teams Twister Operator Relationship Specialty Start Date End Date Sebastien Sequeira MD [address] [place] [address] PCP - General INTERNAL MEDICINE 08/02/20 documented as of this encounter
--- OUTSIDE RECORDS SUMMARY | 2024-09-13 06:32 | XMS_ITS | Encounter Summary ---
Author Organization [facility] Address [address] [place] [address]. [place] [address] [place] [address] Care Team Providers Care Thermite Welder Name Role Phone Sebastien Sequeira MD Primary Care Provider [phone] Encounter Details Date Type Department Care Team (Late st Contact Info) Description 12/10/2021 Orders Only [facility] [place] [address] [facility] [address] [place] [address] Adele Garcia, [facility] [address] [facility] [place] [id number] Social History Tobacco Use Types Packs/Day Years [...] documented in this encounter Progress Notes * Aissatou Cline CNA - 12/10/2021 1:19 PM CDT xr sh documented in this encounter Plan of Treatment [...] Primary documented in this encounter Care Teams Thermite Welder Relationship Specialty Start Date End Date Sebastien Sequeira MD [address] [place] [address] PCP - General INTERNAL MEDICINE 08/02/20 documented as of this encounter
--- OUTSIDE RECORDS SUMMARY | 2024-09-13 06:32 | XMS_ITS | Encounter Summary ---
Author Organization [facility] Address [facility] [place] [address] [place] [address] Care Team Providers Care Business Reporting Developer Name Role Phone Sebastien Sequeira MD Primary Care Provider [phone] Encounter Details Date Type Department Care Team (Latest Contact Info) Description 12/03/2022 Travel Social History Tobacco Use Types Packs/Day [...] suspected to have Coronavirus/COVID-19? No / Unsure 12/03/2022 2:20 PM CDT documented as of this encounter [...] Date Author Status No 06/24/2021 11:17 AM Vanai Larson RN Active documented in this encounter [...] on filedocumented in this encounter Care Teams Business Reporting Developer Relationship Specialty Start Date End Date Sebastien Sequeira MD [address] [place] [address] PCP - General INTERNAL MEDICINE 08/02/20 documented as of this encounter
--- OUTSIDE RECORDS SUMMARY | 2024-09-13 06:32 | XMS_ITS | Encounter Summary ---
Author Organization [facility] Address [address] [place] [address]. [place] [address] [place] [address] Care Team Providers Care Security Operations Center Operator Name Role Phone Sebastien Sequeira MD Primary Care Provider [phone] Encounter Details Date Type Department Care Team (Late st Contact Info) Description 07/14/2022 Orders Only [facility] [place] [id number] [facility] [address] [place] [address] Daniel Garcia, [facility] [address] [facility] [place] [id number] Social History Tobacco Use Types Packs/Day Years [...] Results * XR SHOULDER LT MIN 2V (07/23/2022 9:33 AM RISK CONTROL DIRECTOR) Anatomical Region Laterality Modality Shoulder Radiographic Charlotte ging 07/23/2022 9:37 AM RISK CONTROL DIRECTOR Impressions 07/23/2022 9:38 AM RISK CONTROL DIRECTOR IMPRESSION: 1) 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 No acute osseous abnormality. Ordered By: DANIEL GARCIA Interpreted By: Harshal Marie MD, 07/23/2022 9:37 AM Narrative 07/23/2022 9:38 AM RISK CONTROL DIRECTOR Examination: XR SHOULDER LT MIN 2V Exam time: 07/23/2022 9:33 AM Clinical history: Chronic left shoulder pain Comparison: None Technique: Grashey, transscapular and axillary views Findings: No acute soft tissue abnormality. No evidence of acute fracture or dislocation. 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 Mild chronic degenerative change left AC joint. Procedure Note Harshal Marie MD - 07/23/2022 Examination: XR SHOULDER LT MIN 2V Exam time: 07/23/2022 9:33 AM Clinical history: Chronic left shoulder pain Comparison: None Technique: Grashey, transscapular and axillary views Findings: No acute soft tissue abnormality. No evidence of acute fractureor dislocation. Severe chronic degenerative osteoarthritis leftglenohumeral joint. Mild chronic degenerative change left AC joint. 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 Noacute osseous abnormality. Ordered By: DANIEL GARCIA Interpreted By: Harshal Marie MD, 07/23/2022 9:37 AM us Daniel Garcia MANAGER NICU-BC GENERAL IMAGING Final Resu lt documented in this encounter Visit Diagnoses Diagnosis Shoulder pain- Primary Pain in joint, shoulder region Shoulder pain Pain in joint, shoulder region documented in this encounter Care Teams Security Operations Center Operator Relationship Specialty Start Date End Date Sebastien Sequeira MD [address] [place] [address] PCP - General INTERNAL MEDICINE 08/02/20 documented as of this encounter
--- OUTSIDE RECORDS SUMMARY | 2024-09-13 06:32 | XMS_ITS | Encounter Summary ---
Author Organization [facility] Address [address] [place] [address]. [place] [address] [place] [address] Care Team Providers Care Director Diabetes Name Role Phone Sebastien Sequeira MD Primary Care Provider [phone] Reason for Visit * Reason Comments Knee Pain RIGHT Lab Results Encounter Details Date Type Department Care Team (Latest Contact Info) Description 08/06/2022 3:45 PM BOTTOM TURNING LATHE TURNER Office Visit [facility] [place] [id number] Gustavo So MD [address] [place], [place] [phone] Knee Pain (RIGHT); Lab Results Social History Tobacco Use Types Packs/Day [...] Coronavirus/COVID-19? No / Unsure 09/23/2022 11:23 AM BOTTOM TURNING LATHE TURNER documented as of this encounter Last Filed Vital Signs Vital Sign Reading Time Taken Comments Blood Pressure - - Pulse - - Temperature - - Respiratory Rate - - Oxygen Saturation - - Inhaled Oxygen Concentration - - Weight 122.5 kg (270 lb) 08/06/2022 3:42 PM BOTTOM TURNING LATHE TURNER Height 177.8 cm (5' 10 ) 08/06/2022 3:42 PM BOTTOM TURNING LATHE TURNER Body Mass Index 38.74 08/06/2022 3:42 PM BOTTOM TURNING LATHE TURNER documented in this encounter Functional Status * [...] Progress Notes * Gustavo So MD - 08/06/2022 3:45 PM CST Chief Complaint: Knee Pain (RIGHT) and Lab Results History of Present Illness: Gilma Mills is a 72-year-old female who presents to the office for Knee Pain (RIGHT) and Lab Results Patient is here today to follow up for her RIGHT knee. An aspiriation was attempted at her last appointment but was unsuccessful. She did have lab work. 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 Perdomo. She states that she did have fall on her RIGHT knee about 2 months ago. She locates her pain over the distal medial aspect of her RIGHT knee. She describes the pain as both sharp and aching pain. She does admit start up pain. She does have pain at night. She does have a bruisepresent of the medial aspect of her RIGHT knee. She does have occasional swelling. She ambulates with the assistance of a cane today. She is taking Lyrica, tylenol and ibuprofen for pain relief. ROS: See HPI for pertinent positives Problem [...] Statins Rash Objective: Body mass index is 38.74 kg/m??. Last Recorded Weight 08/06/22 1542 Weight: 122.5 kg (270 lb) Physical exam: Constitutional: Alert and in no acute distress. Neurological: The patient was oriented to person, place, and time. Eyes: The sclera and conjunctiva were normal ENT: Hearing was normal. Neck: The appearance of the neck was normal. Cardiovascular: Normal pulses. Pulmonary: No respiratory distress. Skin: No injuries or skin lesion. Musculoskeletal: Right knee examination demonstrates tenderness at the proximal medial tibia without erythema or swelling. She has good range of motion and there is no warmth erythema about her knee.She is ligamentously stable and baseline neuro status Results: X-rays demonstrate a well aligned right total knee arthroplasty with no loosening Assessment: Encounter Diagnose(s) ICD-10-CM ICD-9-CM SNOMED CT(R) 1. Pes anserinus bursitis of right knee M70.51 726.61 PES ANSERINUS BURSITIS OF RIGHT KNEE Plan: Patient's has persistent pain at the Pes anserine bursa. I will see anything else that is concerning and I recommended hamstring tenotomy. I reviewed risks and benefits as well as postoperative course and she elects to proceed Patient Education: The planned procedure/s, the expected benefits,the associated risks, possible complications, and alternatives to the procedure/s have been discussed in detail with the patient or family. They state that they understand, have no further questions and agree to proceed with the procedure/s as outlined. Procedure/Surgery: RIGHT hamstring tenotomy on 08/14/22 Follow up: Return for Post-Op. GUSTAVO SO MD OM TURNING LATHE TURNER documented in this encounter Plan of Treatment [...] bursitis documented in this encounter Care Teams Director Diabetes Relationship Specialty Start Date End Date Sebastien Sequeira MD [address] [place] [phone] PCP - General INTERNAL MEDICINE 08/02/20 documented as of this encounter
--- OUTSIDE RECORDS SUMMARY | 2024-09-13 06:32 | XMS_ITS | Encounter Summary ---
Author Organization [facility] Address [address] [place] [address]. [place] [address] [place] [address] Care Team Providers Care Senior Business Development Analyst Name Role Phone Sebastien Sequeira MD Primary Care Provider [phone] Reason for Visit * Reason Comments Therapy Report (SCAN) Encounter Details Date Type Department Care Team (Late st Contact Info) Description 11/04/2022 Scan [facility] Information Services [address] [place] [address] Scanned, Doc Hospital Therapy Report (SCAN) Social History Tobacco Use Types Packs/Day [...] Coronavirus/COVID-19? No / Unsure 10/31/2022 10:15 AM PLANT ELECTRICIAN documented as of this encounter Functional Status [...] on filedocumented in this encounter Care Teams Senior Business Development Analyst Relationship Specialty Start Date End Date Sebastien Sequeira MD [address] [place] [phone] PCP - General INTERNAL MEDICINE 08/02/20 documented as of this encounter
--- OUTSIDE RECORDS SUMMARY | 2024-09-13 06:32 | XMS_ITS | Encounter Summary ---
Author Organization [facility] Address [facility] [place] [address] [place] [address] Care Team Providers Care Machine Driller Name Role Phone Sebastien Sequeira MD Primary Care Provider [phone] Encounter Details Date Type Department Care Team (Latest Contact Info) Description 12/10/2021 Travel Social History Tobacco Use Types Packs/Day [...] on filedocumented in this encounter Care Teams Machine Driller Relationship Specialty Start Date End Date Sebastien Sequeira MD [address] [place] [address] PCP - General INTERNAL MEDICINE 08/02/20 documented as of this encounter
--- OUTSIDE RECORDS SUMMARY | 2024-09-13 06:32 | XMS_ITS | Encounter Summary ---
Author Organization [facility] Address [address] [place] [address]. [place] [address] [place] [address] Care Team Providers Care Flagsetter Name Role Phone Sebastien Sequeira MD Primary Care Provider Reason for Visit * Reason Comments Therapy Report (SCAN) Encounter Details Date Type Department Care Team (Late st Contact Info) Description 11/26/2022 Scan [facility] Information Services [address] [place] [address] Scanned, Doc Hospital Therapy Report (SCAN) Social [...] on filedocumented in this encounter Care Teams Flagsetter Relationship Specialty Start Date End Date Sebastien Sequeira MD [address] [place] [phone] PCP - General INTERNAL MEDICINE 08/02/20 documented as of this encounter
--- OUTSIDE RECORDS SUMMARY | 2024-09-13 06:32 | XMS_ITS | Encounter Summary ---
Author Organization [facility] Address [facility] [place] [address] [place] [address] Care Team Providers Care Group Dynamics Instructor Name Role Phone Sebastien Sequeira MD Primary Care Provider [phone] Encounter Details Date Type Department Care Team (Latest Contact Info) Description 09/09/2022 Travel Social History Tobacco Use Types Packs/Day [...] suspected to have Coronavirus/COVID-19? No / Unsure 09/09/2022 12:54 PM ABLE SEAMAN documented as of this encounter Functional Status [...] on filedocumented in this encounter Care Teams Group Dynamics Instructor Relationship Specialty Start Date End Date Sebastien Sequeira MD [address] [place] [address] PCP - General INTERNAL MEDICINE 08/02/20 documented as of this encounter
--- OUTSIDE RECORDS SUMMARY | 2024-09-13 06:32 | XMS_ITS | Encounter Summary ---
Author Organization [facility] Address [address] [place] [address]. [place] [address] [place] [address] Care Team Providers Care Kiln Placer Name Role Phone Sebastien Sequeira MD Primary Care Provider [phone] Encounter Details Date Type Department Care Team (Late st Contact Info) Description 07/09/2022 9:23 AM CDT - 07/09/2022 11:59 PM CDT Hospital Encounter [facility] Diagnostic Imaging [address] [place] [address] Daniel Garcia, SPINE SURGEON- [address] [place] [id number] Discharge Disposition: Home or Self Care (Routine [...] total) by mouth daily as needed. 11/26/2020 4 cyclobenzaprine 10 MG tablet Take 10 mg by mouth 3 (three) times daily as needed. 11/25/2021 2 EUTHYROX 125 MCG tablet Take 1 tablet (125 mcg total) by mouth daily. 07/15/2020 3 furosemide 20 MG tablet Take 1 tablet (20 mg total) by mouth as needed. 01/14/2020 3 BIJAN Padgett, (MEDROL DOSEPAK) 4 MG tabletIndication s:Pes anserinus bursitis of right knee 4 mg Oral Tablet Therapy Pack. Follow package directions 1 each 07/09/2022 2 pregabalin (LYRICA) 150 MG capsule Take 1 capsule by mouth daily. 05/02/2022 2 propranolol LA 160 MG 24 hr capsule Take 1 capsule (160 mg total) by mouth daily. 05/11/2020 3 spironolactone 50 MG tablet Take 1 tablet (50 mg total) by mouth daily. 4 documented as of this encounter Plan of Treatment Not on file documented as of this encounter Goals Goal Patient Goal Type Associated Problems Recent Progress Patient-Stated? Author Safety - able to safely ambulate at home; tripping hazards removed from the home Krystal Byoer, RN Note: Pt wants to go home safely with new walker. Pt made aware that therapy will work with her on safety. documented as of this encounter Procedures Procedure Name Priority Date/Time Associated Diagnosis Comments XR KNEE STAND AP MARITZA ONLY Routine 07/09/2022 10:19 AM CDT Follow-up examination after orthopedic surgery XR KNEE RT 2V Routine 07/09/2022 10:19 AM CDT Follow-up examination after orthopedic surgery XR SHOULDER RT MIN 2V Routine 07/09/2022 9:32 AM CDT Follow-up examination after orthopedic surgery documented in this encounter Results * XR KNEE STAND [...] Gonzalez MD, 07/09/2022 10:42 AM Daniel Garcia SPINE SURGEON-BC GENERAL IMAGING Final Resu lt * XR [...] MD, 07/09/2022 10:42 AM us Daniel Garcia SPINE SURGEON-BC GENERAL IMAGING Final Resu lt * XR SHOULDER RT MIN 2V (07/09/2022 [...] loosening. Ordered By: DANIEL GARCIA Interpreted By: Casye Gonzalez MD, 07/09/2022 9:46 AM us Daniel M Jose SPINE SURGEON-BC GENERAL IMAGING Final Resu lt documented in this encounter Visit Diagnoses Diagnosis Follow-up examination after orthopedic surgery Follow-up examination, following other surgery documented in this encounter Care Teams Kiln Placer Relationship Specialty Start Date End Date Sebastien Sequeira MD [address] [place] [id number] PCP - General INTERNAL MEDICINE 08/02/20 documented as of this encounter
--- OUTSIDE RECORDS SUMMARY | 2024-09-13 06:32 | XMS_ITS | Encounter Summary ---
Author Organization [facility] Address [address] [place] [address]. [place] [address] [place] [address] Care Team Providers Care Websphere Portal Architect Name Role Phone Sebastien Sequeira MD Primary Care Provider [phone] Encounter Details Date Type Department Care Team (Latest Contact Info) Description 12/03/2022 2:21 PM CDT - 12/03/2022 11:59 PM CDT Hospital Encounter [facility] Diagnostic Imaging [address] [place] [address] Gustavo So MD [address] [place] [address] Discharge Disposition: Home or Self [...] total) by mouth as needed. 01/14/2020 08/18/2023 propranolol LA 160 MG 24 hr capsule [...] XR KNEE STAND AP MARITZA ONLY Routine 12/03/2022 2:39 PM CDT History of total knee arthroplasty, right XR KNEE RT 2V Routine 12/03/2022 2:39 PM CDT History of total knee arthroplasty, right documented in this encounter Results * XR [...] right documented in this encounter Care Teams Websphere Portal Architect Relationship Specialty Start Date End Date Sebastien Sequeira MD [address] [place] [address] PCP - General INTERNAL MEDICINE 08/02/20 documented as of this encounter
--- OUTSIDE RECORDS SUMMARY | 2024-09-13 06:32 | XMS_ITS | Encounter Summary ---
Author Organization [facility] Address [address] [place] [address]. [place] [address] [place] [address] Care Team Providers Care Six Pack Loader Operator Name Role Phone Sebastien Sequeira MD Primary Care Provider [phone] Reason for Visit * Reason Comments Postop Followup DOS 09/11/22 RIGHT k nee hamstring tenotomy Encounter Details Date Type Department Care Team (Latest Contact Info) Description 09/23/2022 11:30 AM SEARCH PLANNER Office Visit [facility] [address] [address] Gustavo So MD [address] [place] [id number] Postop Followup (DOS 09/11/22 RIGHT knee hamstring tenotomy) Social History Tobacco Use Types [...] Coronavirus/COVID-19? No / Unsure 09/23/2022 11:23 AM SEARCH PLANNER documented as of this encounter Last Filed Vital Signs Vital Sign Reading Time Taken Comments Blood Pressure - - Pulse - - Temperature - - Respiratory Rate - - Oxygen Saturation - - Inhaled Oxygen Concentration - - Weight 129.3 kg (285 lb) 09/23/2022 11:24 AM SEARCH PLANNER Height 177.8 cm (5' 10 ) 09/23/2022 11:24 AM SEARCH PLANNER Body Mass Index 40.89 09/23/2022 11:24 AM SEARCH PLANNER documented in this encounter Functional Status * [...] Progress Notes * Gustavo So MD - 09/23/2022 11:30 AM CST Chief Complaint: Postop Followup (DOS 09/11/22 RIGHT knee hamstring tenotomy) History of Present Illness: [place] is a 72-year-old female who presents to the office for Postop Followup (DOS 09/11/22 RIGHT knee hamstring tenotomy) Patient here in clinic for Post-Op follow up of RIGHT knee. States is having a little pain located to medial aspect of RIGHT knee . Denies night pain. States has some numbness and tingling to RIGHT foster down into RIGHT foot. Denies use of ice or heat. States takes hydrocodone and motrin PRN with relief. Denies use of assistive device. States is not in therapy at this time. Patient is retired. Sutures removed from RIGHT knee. Edges well approximated. No signs of infection observed. Patient tolerated suture removal well. ROS: See HPI for pertinent positives Problem [...] post reverse arthroplasty of right shoulder ??? Painful orthopaedic hardware (CMS/HCC) ??? Osteoarthritis [...] as needed. , Disp: , Rfl: ??? HYDROcodone-acetaminophen (NORCO) 5-325 MG tablet, Take 1-2 tablets by mouth every 6 (six) hours as needed for Pain. Indications: Acute Pain < 7 Day Supply, Disp: 15 tablet, Rfl: 0 ??? nortriptyline 25 MG capsule, [...] Chronic Pain (Patient not taking: Reported on 09/23/2022), Disp: 15 tablet, Rfl: 0 Allergies Allergen Reactions ??? Contrave [Naltrexone-Bupropion Hcl Er] Dizziness ??? Zanaflex [Tizanidine] Other (see comment) hypotension ??? Statins Rash Objective: Body mass index is 40.89 kg/m??. Last Recorded Weight 09/23/22 1124 Weight: 129.3 kg (285 lb) Physical exam: Constitutional: Alert and in no acute distress. Neurological: The patient was oriented to person, place, and time. Eyes: The sclera and conjunctiva were normal ENT: Hearing was normal. Neck: The appearance of the neck was normal. Cardiovascular: Normal pulses. Pulmonary: No respiratory distress. Skin: No injuries or skin lesion. Musculoskeletal: Mild fullness is present on the medial aspect of the right knee and her incision is healing well without erythema or drainage. She has good range of motion. No significant tendernessover the pes anserine Results: Assessment: Encounter Diagnose(s) ICD-10-CM ICD-9-CM SNOMED CT(R) 1. Orthopedic aftercare Z47.89 V54.9 FOLLOW-UP STATUS Plan: Patient has had resolution of her preoperative pain and is no longer using a cane. She is very pleased with the results of her surgery. I do not have any activity restrictions. She will return as needed for her left shoulder which she indicates is doing well after injection. The right shoulder replacement was done in July and she will see me at her year anniversary. Otherwise return as needed Follow up: Return if symptoms worsen or fail to improve. GUSTAVO SO MD CH PLANNER documented in this encounter Plan of Treatment Not on file documented as of this encounter Goals Goal Patient Goal Type Associated Problems Recent Progress Patient-Stated? Author Safety - able to safely ambulate at home; tripping hazards removed from the home General No Lyssa Quigleynifer L, RN Note: Pt wants to go home safely with new walker. Pt made aware that therapy will work with her on safety. documented as of this encounter Visit Diagnoses Diagnosis Orthopedic aftercare- Primary Unspecified orthopedic aftercare documented in this encounter Care Teams Six Pack Loader Operator Relationship Specialty Start Date End Date Sebastien Sequeira MD [address] [place] [address] PCP - General INTERNAL MEDICINE 08/02/20 documented as of this encounter
--- OUTSIDE RECORDS SUMMARY | 2024-09-13 06:32 | XMS_ITS | Encounter Summary ---
Author Organization [facility] Address [facility] [place] [address] [place] [address] Care Team Providers Care Senior Software Qa Engineer Name Role Phone Sebastien Sequeira MD Primary Care Provider [phone] Encounter Details Date Type Department Care Team (Late st Contact Info) Description 08/04/2023 Orders Only [facility] [address], [facility] 1 [place] [address] Gustavo So MD [address] [place] [address] Social History Tobacco Use Types Packs/Day Years [...] Results * XR SHOULDER RT MIN 2V (08/18/2023 12:12 PM INSTRUCTOR PRODUCT INSPECTION) Anatomical Region Laterality Modality Shoulder Radiographic Charlotte ging 08/18/2023 3:20 PM INSTRUCTOR PRODUCT INSPECTION Impressions 08/18/2023 3:22 PM INSTRUCTOR PRODUCT INSPECTION IMPRESSION: No acute bony abnormality. Findings similar to study 07/09/2022. Ordered By: GUSTAVO SO Interpreted By: Gary Sandoval MD, 08/18/2023 3:20 PM Narrative 08/18/2023 3:22 PM INSTRUCTOR PRODUCT INSPECTION 08/18/2023, 10:13 AM. HISTORY: Right shoulder pain. [...] Visit Diagnoses Diagnosis Right shoulder pain, unspecified chronicity- Primary Right shoulder pain, unspecified chronicity Osteoarthritis of left glenohumeral joint documented in this encounter Care Teams Senior Software Qa Engineer Relationship Specialty Start Date End Date Sebastien Sequeira MD [address] [place] [phone] PCP - General INTERNAL MEDICINE 08/02/20 documented as of this encounter
--- OUTSIDE RECORDS SUMMARY | 2024-09-13 06:32 | XMS_ITS | Encounter Summary ---
Author Organization [facility] Address [address] [place] [address]. [place] [address] [place] [address] Care Team Providers Care Control Systems Eng Name Role Phone Sebastien Sequeira MD Primary Care Provider [phone] Encounter Details Date Type Department Care Team (Late st Contact Info) Description 01/26/2023 [employer] Message Enc [facility] [address], [facility] 1 [place] [address] Adele Garcia, [facility] [address] [facility] [place] [place] [address] ??? TEST Social History Tobacco Use Types Packs/Day Years [...] suspected to have Coronavirus/COVID-19? No / Unsure 01/15/2023 1:49 PM CDT documented as of this encounter [...] on filedocumented in this encounter Care Teams Control Systems Eng Relationship Specialty Start Date End Date Sebastien Sequeira MD [address] [place] [address] PCP - General INTERNAL MEDICINE 08/02/20 documented as of this encounter
--- OUTSIDE RECORDS SUMMARY | 2024-09-13 06:32 | XMS_ITS | Encounter Summary ---
Author Organization [facility] Address [facility] [place] [address] [place] [address] Care Team Providers Care Autism Specialist Name Role Phone Sebastien Sequeira MD Primary Care Provider [phone] Encounter Details Date Type Department Care Team (Latest Contact Info) Description 07/23/2022 Travel Social History Tobacco Use Types Packs/Day [...] Coronavirus/COVID-19? No / Unsure 07/23/2022 8:55 AM MEMBER OF THE LEGISLATIVE ASSEMBLY documented as of this encounter Functional Status [...] on filedocumented in this encounter Care Teams Autism Specialist Relationship Specialty Start Date End Date Sebastien Sequeira MD [address] [place] [address] PCP - General INTERNAL MEDICINE 08/02/20 documented as of this encounter
--- OUTSIDE RECORDS SUMMARY | 2024-09-13 06:32 | XMS_ITS | Encounter Summary ---
Author Organization [facility] Address [facility] [place] [address] [place] [address] Care Team Providers Care Electro Mechanical Technician Name Role Phone Sebastien Sequeira MD Primary Care Provider [phone] Encounter Details Date Type Department Care Team (Latest Contact Info) Description 10/31/2022 Travel Social History Tobacco Use Types Packs/Day [...] Coronavirus/COVID-19? No / Unsure 10/31/2022 10:15 AM SUPERVISOR [employer]ODUCTION documented as of this encounter Functional Status [...] on filedocumented in this encounter Care Teams Electro Mechanical Technician Relationship Specialty Start Date End Date Sebastien Sequeira MD [address] [place] [address] PCP - General INTERNAL MEDICINE 08/02/20 documented as of this encounter
--- OUTSIDE RECORDS SUMMARY | 2024-09-13 06:32 | XMS_ITS | Encounter Summary ---
Author Organization [facility] Address [facility] [place] [address] [place] [address] Care Team Providers Care Rattan Worker Name Role Phone Sebastien Sequeira MD Primary Care Provider [phone] Encounter Details Date Type Department Care Team (Latest Contact Info) Description 10/08/2021 Travel Social History Tobacco Use Types Packs/Day [...] COVID-19? No / Unsure 10/08/2021 2:47 PM LIBERAL ARTS AND HUMANITIES CHAIR documented as of this encounter Functional Status [...] on filedocumented in this encounter Care Teams Rattan Worker Relationship Specialty Start Date End Date Sebastien Sequeira MD [address] [place] [address] PCP - General INTERNAL MEDICINE 08/02/20 documented as of this encounter
--- OUTSIDE RECORDS SUMMARY | 2024-09-13 06:32 | XMS_ITS | Encounter Summary ---
Author Organization [facility] Address [address] [place] [address]. [place] [address] [place] [address] Care Team Providers Care Custodial Foreman Name Role Phone Sebastien Sequeira MD Primary Care Provider [phone] Reason for Visit * Reason Comments Physical Therapy Encounter Details Date Type Department Care Team (Late st Contact Info) Description 09/05/2021 Scan [facility] [address] [address] Scanned, Documents Physical Therapy Social History Tobacco Use Types Packs/Day Years [...] COVID-19? No / Unsure 08/28/2021 2:29 PM FINANCIAL DIRECTOR documented as of this encounter Functional Status [...] on filedocumented in this encounter Care Teams Custodial Foreman Relationship Specialty Start Date End Date Sebastien Sequeira MD [address] [place] [address] PCP - General INTERNAL MEDICINE 08/02/20 documented as of this encounter
--- OUTSIDE RECORDS SUMMARY | 2024-09-13 06:32 | XMS_ITS | Encounter Summary ---
Author Organization [facility] Address [facility] hospital[facility] [place] [address] [place] [address] Care Team Providers Care Cath Lab Nurse Name Role Phone Sebastien Sequeira MD Primary Care Provider [phone] Reason for Visit * Auth/Cert (Routine) Specialty Diagnoses / Procedures Referred By Contdennis t Referred To Contact Diagnoses Pes anserinus bursitis of right knee M70.51 Procedures RIGHT hamstring tenotomy Gustavo So MD [address] [place] [address] Phone: tel: fax: Referral ID Status Reason Start Date Expiration Date Visits Re quested Visits Authorized [id number] 1 1 Encounter Details Date Type Department Care Team (Latest Contact Info) Description 09/11/2022 1:12 PM TEACHER CCLC - 09/11/2022 5:45 PM [facility] Hospital Encounter [facility] [address] [place] [id number] Gustavo So MD [address] [place] [address] Discharge Disposition: Home or Self Care (Routine [...] Coronavirus/COVID-19? No / Unsure 09/11/2022 1:12 PM TEACHER CCLC documented as of this encounter Last Filed Vital Signs Vital Sign Reading Time Taken Comments Blood Pressure 114/88 09/11/2022 5:30 PM TEACHER CCLC Pulse 76 09/11/2022 5:30 PM TEACHER CCLC Temperature 36.1 ??C (96.9 ??F) 09/11/2022 5:30 PM CS T Respiratory Rate 18 09/11/2022 5:30 PM TEACHER CCLC Oxygen Saturation 98% 09/11/2022 5:30 PM TEACHER CCLC Inhaled Oxygen Concentration - - Weight 129.3 kg (285 lb) 09/09/2022 12:53 PM TEACHER CCLC Height 177.8 cm (5' 10 ) 09/09/2022 12:53 PM TEACHER CCLC Body Mass Index 40.89 09/09/2022 12:53 PM TEACHER CCLC documented in this encounter Functional Status * [...] Care Everywhere. * General Anesthesia Discharge Instructions (Afghan) * Wound Care Discharge Instructions (Afghan) documented in this encounter Medications at Time [...] during recuperation were discussed with the patient/family/personal escrow representative. Reasonable alternatives to the patient's proposed procedure/surgery including benefits, risks, and side effects related to the alternatives and the risks related to not receiving the proposed care were also discussed with the patient/family/personal escrow representative. Questions were answered and the patient/family/personal escrow representative verbalized understanding and desires to proceed. HER CCLC Source Note - Gustavo So MD - 08/27/2022 3:15 PM TEACHER CCLC Chief Complaint: Pre-Op Exam (RIGHT hamstring tenotomy) [...] up: Return for Post-Op. GUSTAVO SO MD HER CCLC documented in this encounter OR Notes * Op Note - Gustavo So MD - 09/11/2022 4:14 PM CST [place] 1950 09/11/2022 [id number] Preop diagnosis: Chronic right knee Pes anserine [...] them using a 15 blade. The tourniquet was released at 4 minutes and electrocautery used obtain [...] then to the PACU in good condition HER CCLC * Brief Op Note - Gustavo So MD - 09/11/2022 4:14 PM CST HS Brief Op HSHSRIGHT hamstring tenotomy Procedure Note [place] 09/11/2022 1449 Procedure(s) (LRB): RIGHT hamstring tenotomy (Right) Surgeon(s): Gustavo So MD Fast Food Restaurant Manager: None Anesthesia: General/Block Pre-Op Diagnosis: M70.51 Post-Op Diagnosis: Same Findings: Estimated Blood Loss: Minimal Specimens: None GUSTAVO OS MD Date: 09/11/2022 Time: 4:14 PM HER CCLC documented in this encounter Plan of Treatment [...] Comments REPAIR TENDON HAMSTRING 09/11/2022 3:15 PM TEACHER CCLC Pes anserinus bursitis of right knee documented [...] 24 hours., Pre-Op Given 09/11/2022 1:49 PM TEACHER CCLC 1,000 mg celecoxib (CeleBREX) 100 MG capsule 1 dose, Starting on Ermelinda 09/11/22 at 1319, Until Ermelinda 09/11/22 at 1348, Created by cabinet override celecoxib (CeleBREX) capsule 200 mg 200 mg, Oral, Once, 1 dose, On Ermelinda 09/11/22 at 1345, Do not administer with antacids, Pre-Op Given 09/11/2022 1:48 PM TEACHER CCLC 200 mg chlorhexidine (PERIDEX) 0.12 % solution 15 mL 15 mL, Mouth/Throat, Once, 1 dose, On Ermelinda 09/11/22 at 1345, Patient to perform oral care first. Swish/gargle in mouth for 30 seconds, and then discard prior to going to surgery. If ventilated use saturated swab to clean oral cavity., Pre-Op Given 09/11/2022 1:49 PM TEACHER CCLC 15 mLs lactated ringers infusion at 10 mL/hr, Intravenous, Continuous, Starting on Ermelinda 09/11/22 at 1345, Until Ermelinda 09/11/22 at 1954, Infuse at TKO rate, Pre-Op Continued by Anesthesia 09/11/2022 3:24 PM TEACHER CCLC 10 mL/hr New Bag 09/11/2022 1:48 PM TEACHER CCLC 10 mL/hr documented in this encounter Active and Recently Administered Medications Times are shown in TEACHER CCLC. Scheduled Medication Order 09/09/2022 09/10/2022 09/11/2022 acetaminophen (TYLENOL) tablet 1,000 mg (COMPLETED) 1,000 mg, Oral, Once, 1 dose, On Ermelinda 09/11/22 at 1345, Maximum dose of acetaminophen is 4000 mg from all sources in 24 hours., Pre-Op 1349 (Given - Provid er: Stephanie Mcmillan RN) ceFAZolin (ANCEF) 3 g in NS 100 mL IVPB (COMPLETED) 3 g, Intravenous, at 200 mL/hr, drier, 1 dose, On Ermelinda 09/11/22 at 1345, [...] saturated swab to clean oral cavity., Pre-Op 134 (Given - Provid er: Stephanie Mcmillan RN) [...] Order 09/09/2022 09/10/2022 09/11/2022 BUpivacaine-EPINEPHrine PF 0.5% -[id number] injection (CANCELED) As needed, Starting on Ermelinda 09/11/22 at 1558, Until Ermelinda 09/11/22 at 1614, Intra-Op 1558 (Given - Provid er: Gutsavo So MD) sodium chloride 0.9 % 1,000 mL with gentamicin 160 mg irrigation (CANCELED) As needed, Starting on Ermelinda 09/11/22 at 1549, Until Ermelinda 09/11/22 at 1614, Intra-Op 1549 (Given - Provid er: Gustavo So MD) documented in this encounter Care Teams Cath Lab Nurse Relationship Specialty Start Date End Date Sebastien Sequeira MD [address] [place] [address] PCP - General INTERNAL MEDICINE 08/02/20 documented as of this encounter
--- OUTSIDE RECORDS SUMMARY | 2024-09-13 06:32 | XMS_ITS | Encounter Summary ---
Author Organization [facility] Address [address] [place] [address]. [place] [address] [place] [address] Care Team Providers Care Manager Multimedia Name Role Phone Sebastien Sequeira MD Primary Care Provider [phone] Encounter Details Date Type Department Care Team (Late st Contact Info) Description 07/23/2022 8:57 AM WATER PUMP SERVICER - 07/23/2022 10:47 AM WATER PUMP SERVICER Hospital Encounter [facility] [address] [place] [address] Daniel Garcia, SHOEMAKER CUSTOM- [address] [facility] [place] [id number] Discharge Disposition: Home or Self Care (Routine [...] Coronavirus/COVID-19? 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 No acute osseous abnormality. Ordered By: DANIEL GARCIA Interpreted By: Harshal Marie MD, 07/23/2022 9:37 AM Narrative 07/23/2022 9:38 AM WATER PUMP SERVICER Examination: XR SHOULDER LT MIN 2V Exam [...] MD, 07/23/2022 9:37 AM us Daniel Garcia SHOEMAKER CUSTOM-BC GENERAL IMAGING Final Resu lt documented in this encounter Visit Diagnoses Diagnosis Shoulder pain Pain in joint, shoulder region documented in this encounter Care Teams Manager Multimedia Relationship Specialty Start Date End Date Sebastien Sequeira MD [address] [place] [phone] PCP - General INTERNAL MEDICINE 08/02/20 documented as of this encounter
--- OUTSIDE RECORDS SUMMARY | 2024-09-13 06:32 | XMS_ITS | Encounter Summary ---
Author Organization [facility] Address [facility] [place] [address] [place] [address] Care Team Providers Care Showroom Consultant Name Role Phone Sebastien Sequeira MD Primary Care Provider [phone] Reason for Visit * Auth/Cert (Routine) Specialty Diagnoses / Procedures Referred By Contac t Referred To Contact Diagnoses Pes anserinus bursitis of right knee M70.51 Procedures RIGHT hamstring tenotomy Gustavo So MD [address] [place] [address] Phone: tel: fax: Referral ID Status Reason Start Date Expiration Date Visits Re quested Visits Authorized [id number] 1 1 Encounter Details Date Type Department Care Team (Late st Contact Info) Description 09/11/2022 3:24 PM ELECTRICAL TESTS SUPERVISOR Anesthesia Event [place] [facility] [address] [place] [address] Aki Wallis CRNA [address] [employer] [place] [address] Anesthesia Record Procedure Summary Procedure Name Responsible Anesthesiologist Anesthesia Start Time Anesthesia Stop Time RIGHT hamstring tenotomy (Right: Leg Lower) 09/11/22 1524 09/11/22 1616 Events Date Time Event Comment 09/11/2022 1405 1405 AN DEMAND EQUIPMENT REPAIRER Prepped 1405 AN Anesthesia Prepped 1524 An Start Patient ID and consent checked and patient reassessed. 1524 An Start Data 1528 Preoxygenation 1530 An Induction The patient was reevaluated immediately before moderate or deep sedation use and before anesthesia induction. 1531 An LMA 1535 Anesthesia Ready 1544 An Tourn Inflated 300mmhg 1547 An Tourn Deflated 4 min 1602 LMA Removed 1607 an stop data 1616 An Stop 1616 Post Anesthetic Care Handoff I completed my [...] 100 mcg/2 mL inject ion 100 mcg propofol (DIPRIVAN) 200 mg/20 mL injecti on 120 mg ketamine 50 mg/mL injection 50 mg lidocaine (PF) (XYLOCAINE) 1% injection 50 mg dexamethasone (DECADRON) 4 mg/mL injecti on 4 mg metoclopramide (REGLAN) 5 mg/mL injectio n 10 mg ondansetron (ZOFRAN) injection 4 mg ceFAZolin (ANCEF) 3 g in NS 100 mL IVPB 3 g ePHEDrine injection 50 mg lactated ringers infusion 902 mL * Agents Name O2 N2O Inspired Sevoflurane Sevoflurane * Blood No blood administrations on file. Lines, Drains, and Airways Type Details Placement Removal Peripheral IV Placement Date: 09/11/22; Placement Time: 1346; Placed Outside of This Facility?: No; Size: 20 G; Orientation: Left; Location: Wrist; Site Prep: Chlorhexidine; Local Anesthetic: None; Inserted By: chase nava; Insertion attempts: 1; Ultrasound-guided Placement?: No; Patient Tolerance: Tolerated well; Removal Date: 09/11/22; Removal Time: 1741; Removal Reason: Patient Discharged 09/11/22 1347 by Stephanie Mcmillan RN 09/11/22 174 by Yola Jose RN Supraglottic Airway Placement Date: 09/11/22; Placement Time: 153; Mask Ventilate: Easy; Airway Device: LMA; LMA Size: 4; Placed Outside of This Facility?: No; Placed By: MALINDA; Style: Classic; Insertion Attempts:1; Placement Verified By: Capnography, Chest Rise; Removal Date: 09/11/22; Removal Time: 161; Removal Person: DEMAND EQUIPMENT REPAIRER; Removal Reason: End of Case 09/11/22 1531 by Aki Wallis CRNA 09/11/22 1613 by Aki Wallis CRNA Surgical/Incision 09/11/22; 1557; Surgical Wound; Leg; Right; Suture, benzoin, steri-strip, Xeroform, Fluffs, Webril, MARISOL; 09/11/22; 1954 09/11/22 1557 by Alessia Kinney RN 09/11/221953 by Automatic Discharge Provider documented in this [...] Coronavirus/COVID-19? No / Unsure 09/11/2022 1:12 PM ELECTRICAL TESTS SUPERVISOR documented as of this encounter Functional Status [...] Larson RN Active documented in this encounter OR Notes * Anesthesia Postprocedure Evaluation - Aki Wallis CRNA - 09/11/2022 4:42 PM CST Anesthesia Post-op Note [place] Procedure(s): RIGHT hamstring tenotomy (Right) Anesthesia type: general Vitals: 09/11/22 1630 BP: 137/58 Vitals: 09/11/22 1630 Pulse: 77 Vitals: 09/11/22 1630 Resp: 18 Vitals: 09/11/22 1630 Temp: 35.8 ??C Vitals: 09/11/22 1630 SpO2: 97% Patient Location: PACU Level of Consciousness: awake, alert and oriented Pain Management: pain being treated or addressed Airway Patency: patent Respiratory Status: spontaneous ventilation and acceptable Cardiovascular Status: acceptable, stable and hemodynamically stable Post-Op Nausea: none Postoperative Hydration: euvolemic There were no known notable events for this encounter. TRICAL TESTS SUPERVISOR * Anesthesia Preprocedure Evaluation - Marianne Can CRNA - 08/12/2022 7:42 AM CST Anesthesia ROS/MED History Reviewed: Patient summary , Nursing notes , ECG, Family history anesthesia, Anesthesia history , Medications , Labs , Unchecked boxes are not applicable Pre-Anesthetic State: alert, awake and responds appropriately Pulmonary neg pulmonary ROS (+) sleep apnea ROS comment: Non compliant with cpap usage Cardiovascular neg cardio ROS Exercise tolerance:poor (+) hypertension, (well controlled) Neuro/Psych neg neuro/psych ROS (+) neuromuscular disease, CVA, depression, headaches GI/Hepatic/Renal neg GI/hepatic/renal ROS (+) GERD, (well controlled) Endo/Other neg endo/other ROS (+) hypothyroidism GENERAL COMMENTS Pantoprazole EC 40 MG tablet propranolol LA 160 MG 24 hr capsule EUTHYROX 125 MCG tablet- Levothyroxine Plavix last dose 09/06 spironolactone 50 MG tablet Semaglutide (OZEMPIC, 0.25 OR 0.5 MG/DOSE, SC) Pt has significant surgical history Right/Left ALEXUS's Right Reverse TSA All went well with totals- done here at [facility] SINUS RHYTHM WITH OCCASIONAL ECTOPIC PREMATURE COMPLEXES HGB 14.3 HCT 44.5 This was the risk assessment done on 06/24/2021 Risk Assessment (SCHMIDT)- 30 day Cardiac- 0.25% Stroke- 0.11% Mortality- 0.67% Physical Evaluation Airway Mallampati: I TM Distance: >3 FB Neck ROM: normal Dental (upper dentures), (lower dentures) No notable dental history Pulmonary Pulmonary exam normal Breath sounds clear to auscultation Cardiovascular Rhythm: regular Rate: normal Cardiovascular exam normal Anesthesia Plan ASA 3 Induction Anesthesia type: general Plan for Airway: LMA Plan for Post-op Pain Plan: oral pain medication and as per surgeon Informed Consent . TRICAL TESTS SUPERVISOR TRICAL TESTS SUPERVISOR TRICAL TESTS SUPERVISOR documented in this encounter Plan of Treatment [...] Rate Site ceFAZolin (ANCEF) 3 g in NS 100 mL IVPB 3 g, Intravenous, at 200 mL/hr, closing agent, 1 dose, On Ermelinda 09/11/22 at 1345, Give 3 gram dose for patients greater than or equal to 120 kg. Give within 60 minutes of surgical incision., Pre-Op Given 09/11/2022 3:43 PM ELECTRICAL TESTS SUPERVISOR 3 g dexamethasone (DECADRON) injection Intravenous, PRN, Starting on Ermelinda 09/11/22 at 1540, Until Ermelinda 09/11/22 at 1620, Anesthesia Intra-Op Given 09/11/2022 3:40 PM ELECTRICAL TESTS SUPERVISOR 4 mg ePHEDrine injection Intravenous, PRN, Starting on Ermelinda 09/11/22 at 1541, Until Ermelinda 09/11/22 at 1620, Anesthesia Intra-Op Given 09/11/2022 3:58 PM ELECTRICAL TESTS SUPERVISOR 15 mg Given 09/11/2022 3:53 PM ELECTRICAL TESTS SUPERVISOR 15 mg Given 09/11/2022 3:49 PM ELECTRICAL TESTS SUPERVISOR 10 mg fentaNYL (SUBLIMAZE) injection Intravenous, PRN, Starting on Ermelinda 09/11/22 at 1529, Until Ermelinda 09/11/22 at 1620, Anesthesia Intra-Op Given 09/11/2022 3:46 PM ELECTRICAL TESTS SUPERVISOR 50 mcg Given 09/11/2022 3:29 PM ELECTRICAL TESTS SUPERVISOR 50 mcg ketamine (KETALAR) injection Intravenous, PRN, Starting on Ermelinda 09/11/22 at 1530, Until Ermelinda 09/11/22 at 1620, Anesthesia Intra-Op Given 09/11/2022 3:47 PM ELECTRICAL TESTS SUPERVISOR 25 mg Given 09/11/2022 3:30 PM ELECTRICAL TESTS SUPERVISOR 25 mg lactated ringers infusion at 10 mL/hr, Intravenous, Continuous, Starting on Ermelinda 09/11/22 at 1345, Until Ermelinda 09/11/22 at 1954, Infuse at TKO rate, Pre-Op Continued by Anesthesia 09/11/2022 3:24 PM ELECTRICAL TESTS SUPERVISOR 10 mL/hr New Bag 09/11/2022 1:48 PM ELECTRICAL TESTS SUPERVISOR 10 mL/hr lidocaine (PF) (XYLOCAINE) 1 % injection Intravenous, PRN, Starting on Ermelinda 09/11/22 at 1530, Until Ermelinda 09/11/22 at 1620, Anesthesia Intra-Op Given 09/11/2022 3:30 PM ELECTRICAL TESTS SUPERVISOR 50 mg metoclopramide (REGLAN) injection Intravenous, PRN, Starting on Ermelinda 09/11/22 at 1540, Until Ermelinda 09/11/22 at 1620, Anesthesia Intra-Op Given 09/11/2022 3:40 PM ELECTRICAL TESTS SUPERVISOR 10 mg midazolam (VERSED) injection Intravenous, PRN, Starting on Ermelinda 09/11/22 at 1529, Until Ermelinda 09/11/22 at 1620, Anesthesia Intra-Op Given 09/11/2022 3:46 PM ELECTRICAL TESTS SUPERVISOR 1 mg Given 09/11/2022 3:29 PM ELECTRICAL TESTS SUPERVISOR 1 mg ondansetron (ZOFRAN) injection Intravenous, PRN, Starting on Ermelinda 09/11/22 at 1540, Until Ermelinda 09/11/22 at 1620, Anesthesia Intra-Op Given 09/11/2022 3:40 PM ELECTRICAL TESTS SUPERVISOR 4 mg propofol (DIPRIVAN) IV bolus Intravenous, PRN, Starting on Ermelinda 09/11/22 at 1530, Until Ermelinda 09/11/22 at 1620, Anesthesia Intra-Op Given 09/11/2022 3:30 PM ELECTRICAL TESTS SUPERVISOR 120 mg documented in this encounter Care Teams Showroom Consultant Relationship Specialty Start Date End Date Sebastien Sequeira MD [address] [place] [address] PCP - General INTERNAL MEDICINE 08/02/20 documented as of this encounter
--- OUTSIDE RECORDS SUMMARY | 2024-09-13 06:32 | XMS_ITS | Encounter Summary ---
Author Organization [facility] Address [address] [place] [address]. [place] [address] [place] [address] Care Team Providers Care Wool Batting Worker Name Role Phone Sebastien Sequeira MD Primary Care Provider [phone] Reason for Visit * Reason Onset Date Comments Lab Results 07/23/2022 Encounter Details Date Type Department Care Team (Late st Contact Info) Description 07/23/2022 Telephone [facility] [place] [id number] Wolfgang Sin, sugar refiner Results Social History Tobacco Use Types Packs/Day [...] Coronavirus/COVID-19? No / Unsure 07/23/2022 8:55 AM RESEARCH ADVISOR documented as of this encounter Functional Status [...] documented in this encounter Progress Notes * Wolfgang Sin RN - 07/23/2022 11:59 AM CST Left message for patient to call our office regarding lab results and medical records. We also need to schedule an appointment with Dr So for next week. Appointment scheduled with Dr So. Patient also states her knee replacements were done at [facility] in 2007. When trying to obtain records they reports no information from that time frame. ARCH ADVISOR ARCH ADVISOR ARCH ADVISOR documented in this encounter Plan of Treatment [...] on filedocumented in this encounter Care Teams Wool Batting Worker Relationship Specialty Start Date End Date Sebastien Sequeira MD [address] [place] [phone] PCP - General INTERNAL MEDICINE 08/02/20 documented as of this encounter
--- OUTSIDE RECORDS SUMMARY | 2024-09-13 06:32 | XMS_ITS | Encounter Summary ---
Author Organization [facility] Address [address] [place] [address]. [place] [address] [place] [address] Care Team Providers Care Web Worker Name Role Phone Sebastien Sequeira MD Primary Care Provider [phone] Encounter Details Date Type Department Care Team (Late st Contact Info) Description 07/23/2022 Orders Only [facility] [place] [id number] [facility] [address] [place] [address] Adele Garcia, [facility] [address] [facility] [place] [id number] Social History Tobacco Use Types Packs/Day Years [...] Coronavirus/COVID-19? No / Unsure 07/23/2022 8:55 AM METAL FABRICATOR WELDER documented as of this encounter Functional Status [...] documented as of this encounter Results * C-REACTIVE PROTEIN (07/23/2022 11:00 AM METAL FABRICATOR WELDER) C-REACTIVE PROTEIN 0.26 <0.30 mg/dL 07/23/2022 11:20 AM METAL FABRICATOR WELDER [facility] 07/23/2022 11:0 0 AM METAL FABRICATOR WELDER us Adele Garcia [facility] Final Resu lt [facility] [address] [place] [address], * SED RATE, ERYTHROCYTE (ESR) (07/23/2022 11:00 AM METAL FABRICATOR WELDER) ESR 20 0 - 20 MM/HR 07/23/2022 11:36 AM METAL FABRICATOR WELDER [facility] 07/23/2022 11:0 0 AM METAL FABRICATOR WELDER Adele M Jose ASSISTANT FRONT DESK MANAGER- LABORATORY Final Resu lt [facility] [address] [place] [address], * (ABNORMAL) CBC W/DIFF AUTOMATED (07/23/2022 11:00 AM METAL FABRICATOR WELDER) WBC 7.9 4.0 - 10.8 x10'3/uL 07/23/2022 11:10 AM [facility] RBC 4.70 4.10 - 5.40 x10'6/uL 07/23/2022 11:10 AM [facility] HGB 14.3 12.0 - 16.0 G/DL 07/23/2022 11:10 AM [facility] HCT 44.5 36.0 - 47.0 % 07/23/2022 11:10 AM [facility] MCV 94.7 78.0 - 100.0 FL 07/23/2022 11:10 AM [facility] MCH 30.4 27.0 - 31.0 PG 07/23/2022 11:10 AM [facility] MCHC 32.1(L) 33.0 - 36.0 G/DL 07/23/2022 11:10 AM [facility] RDW 13.3 11.5 - 14.5 % 07/23/2022 11:10 AM [facility] PLT 221 150 - 350 x10'3/uL 07/23/2022 11:10 AM [facility] MPV 8.8 7.4 - 10.4 FL 07/23/2022 11:10 AM [facility] CBC COMMENT NORMAL REFERENCE RANGE NOT ESTABLISHED FOR THE PROPORTIONAL LEUKOCYTE DIFFERENTIAL. 07/23/2022 11:10 AM [facility] NEUTROPHILS % 63.3 % 07/23/2022 11:10 AM [facility] LYMPHOCYTES % 21.5 % 07/23/2022 11:10 AM [facility] MONOCYTES % 9.5 % 07/23/2022 11:10 AM [facility] EOSINOPHILS % 4.9 % 07/23/2022 11:10 AM [facility] BASOPHILS % 0.5 % 07/23/2022 11:10 AM [facility] IMMATURE GRANS % 0.3 % 07/23/20 11:10 AM [facility] NRBC 0.0 % 07/23/2022 11:10 AM [facility] ABS. NEUTROPHILS 4.99 1.60 - 8.30 x10'3/uL 07/23/2022 11:10 AM [facility] ABS. LYMPHOCYTES 1.70 0.80 - 4.70 x10'3/uL 07/23/2022 11:10 AM [facility] ABS. MONOCYTES 0.75 0.00 - 1.50 x10'3/uL 07/23/2022 11:10 AM [facility] ABS. EOSINOPHILS 0.39 0.00 - 0.40 x10'3/uL 07/23/2022 11:10 AM [facility] ABS. BASOPHILS 0.04 0.00 - 0.20 x10'3/uL 07/23/2022 11:10 AM [facility] ABS. IMMATURE GRANULOCYTES 0.02 0.00 - 0.03 x10'3/uL 07/23/2022 11:10 AM [facility] ABS. NUCLEATED RBC'S 0.00 0.00 x10'3/uL 07/23/2022 11:10 AM [facility] 07/23/2022 11:0 0 AM METAL FABRICATOR WELDER us Adele Garcia ASSISTANT FRONT DESK MANAGER-BC LABORATORY Final Resu lt [facility] [address] [place] [address], documented in this encounter Visit Diagnoses Diagnosis History of total right knee replacement- Primary documented in this encounter Care Teams Web Worker Relationship Specialty Start Date End Date Sebastien Sequeira MD [address] [place] [phone] PCP - General INTERNAL MEDICINE 08/02/20 documented as of this encounter
--- OUTSIDE RECORDS SUMMARY | 2024-09-13 06:32 | XMS_ITS | Encounter Summary ---
Author Organization [facility] Address [address] [place] [address]. [place] [address] [place] [address] Care Team Providers Care Registered Nurse Nursery Name Role Phone Sebastien Sequeira MD Primary Care Provider [phone] Encounter Details Date Type Department Care Team (Late st Contact Info) Description 12/11/2022 Scan [facility] [address] [facility] [place] [address] Scanned, Doc Hospital Social History Tobacco Use Types Packs/Day Years [...] on filedocumented in this encounter Care Teams Registered Nurse Nursery Relationship Specialty Start Date End Date Sebastien Sequeira MD [address] [place] [address] PCP - General INTERNAL MEDICINE 08/02/20 documented as of this encounter
--- OUTSIDE RECORDS SUMMARY | 2024-09-13 06:32 | XMS_ITS | Encounter Summary ---
Author Organization [facility] Address [address] [place] [address]. [place] [address] [place] [address] Care Team Providers Care Organic Chemistry Professor Name Role Phone Sebastien Sequeira MD Primary Care Provider [phone] Reason for Visit * Reason Comments Therapy Report (SCAN) Encounter Details Date Type Department Care Team (Late st Contact Info) Description 09/18/2021 Scan [facility] Information Services [address] [place] [address] Scanned, Documents Therapy Report (SCAN) Social History Tobacco Use [...] COVID-19? No / Unsure 08/28/2021 2:29 PM BRIM BUSTER documented as of this encounter Functional Status [...] on filedocumented in this encounter Care Teams Organic Chemistry Professor Relationship Specialty Start Date End Date Sebastien Sequeira MD [address] [place] [phone] PCP - General INTERNAL MEDICINE 08/02/20 documented as of this encounter
--- OUTSIDE RECORDS SUMMARY | 2024-09-13 06:32 | XMS_ITS | Encounter Summary ---
Author Organization [facility] Address [facility] [place] [address] [place] [address] Care Team Providers Care Asphalt Spreader Operator Name Role Phone Sebastien Sequeira MD Primary Care Provider [phone] Encounter Details Date Type Department Care Team (Latest Contact Info) Description 09/11/2022 Travel Social History Tobacco Use Types Packs/Day [...] Coronavirus/COVID-19? No / Unsure 09/11/2022 1:12 PM BUILDING TRADES INSTRUCTOR documented as of this encounter Functional Status [...] on filedocumented in this encounter Care Teams Asphalt Spreader Operator Relationship Specialty Start Date End Date Sebastien Sequeira MD [address] [place] [address] PCP - General INTERNAL MEDICINE 08/02/20 documented as of this encounter
--- OUTSIDE RECORDS SUMMARY | 2024-09-13 06:32 | XMS_ITS | Encounter Summary ---
Author Organization [facility] Address [facility] [place] [address] [place] [address] Care Team Providers Care Principal Technologist Name Role Phone Sebastien Sequeira MD Primary Care Provider [phone] Encounter Details Date Type Department Care Team (Latest Contact Info) Description 01/15/2023 Travel Social History Tobacco Use Types Packs/Day [...] on filedocumented in this encounter Care Teams Principal Technologist Relationship Specialty Start Date End Date Sebastien Sequeira MD [address] [place] [address] PCP - General INTERNAL MEDICINE 08/02/20 documented as of this encounter
--- OUTSIDE RECORDS SUMMARY | 2024-09-13 06:32 | XMS_ITS | Encounter Summary ---
Author Organization [facility] Address [facility] [place] [address] [place] [address] Care Team Providers Care Batch Trucker Name Role Phone Sebastien Sequeira MD Primary Care Provider [phone] Reason for Referral * Imaging (Routine) - Closed Specialty Diagnoses / Procedures Referred By Aaron rai Referred To Contact RADIOLOGY Diagnoses Edema Procedures USE ECHOCARDIOGRAM Mercedez Matias FNP-BC [address] [place] [address] Phone: tel: fax: Referral ID Status Reason Start Date Expiration Date Visits Re quested Visits Authorized [id number] Closed 12/23/2022 12/24/2023 1 1 Reason for Visit * Imaging (Routine) - Closed Specialty Diagnoses / Procedures Referred By Aaron rai Referred To Contact RADIOLOGY Diagnoses Edema Procedures USE ECHOCARDIOGRAM Mercedez Matias FNP-BC [address] [place] [address] Phone: tel: fax: Referral ID Status Reason Start Date Expiration Date Visits Re quested Visits Authorized [id number] Closed 12/23/2022 12/24/2023 1 1 Encounter Details Date Type Department Care Team (Latest Contact Info) Description 01/15/2023 1:53 PM CDT - 01/15/2023 11:59 PM CDT Hospital Encounter [facility] [address] [place] [address] Mercedez Matias FNP-BC [address] [place] [address] Discharge Disposition: Home or Self Care (Routine [...] mouth every morning. Will hold DOS 12/18/2022 nortriptyline 25 MG capsule Take 1 capsule [...] Procedure Name Priority Date/Time Associated Diagnosis Comments USE ECHOCARDIOGRAM Routine 01/15/2023 2:53 PM CDT Edema documented in this encounter Results * USE ECHOCARDIOGRAM (01/15/2023 2:53 PM CDT) Anatomical Region Laterality Modality Cardiac Ultrasound Result [facility] Mercedez Matias [facility]- ECHO Final Re sult documented in this encounter Visit Diagnoses Diagnosis Edema documented in this encounter Administered Medications Inactive Administered Medications - up to 3 most recent administrations Medication Order MAR Action Action Date Dose Rate Site perflutren lipid microsphere (DEFINITY) injection 2 mL 2 mL, Intravenous, IMG once as needed, Contrast, 1 dose, Starting on Ermelinda 01/15/23 at 1500, Until Ermelinda 01/15/23 at 1501, Administer over 30-60 seconds. Follow with 10 mL saline flush. Given 01/15/2023 3:01 PM CDT 2 mLs documented in this encounter Care Teams Batch Trucker Relationship Specialty Start Date End Date Sebastien Sequeira MD [address] [place] [address] PCP - General INTERNAL MEDICINE 08/02/20 documented as of this encounter
--- OUTSIDE RECORDS SUMMARY | 2024-09-13 06:32 | XMS_ITS | Encounter Summary ---
Author Organization [facility] Address [facility] [place] [address] [place] [address] Care Team Providers Care Alley Cleaner Name Role Phone Sebastien Sequeira MD Primary Care Provider [phone] Encounter Details Date Type Department Care Team (Latest Contact Info) Description 08/11/2022 Travel Social History Tobacco Use Types Packs/Day [...] to have Coronavirus/COVID-19? Yes 08/11/2022 1:32 PM FARM CREW MEMBER documented as of this encounter Functional Status [...] on filedocumented in this encounter Care Teams Alley Cleaner Relationship Specialty Start Date End Date Sebastien Sequeira MD [address] [place] [address] PCP - General INTERNAL MEDICINE 08/02/20 documented as of this encounter
--- OUTSIDE RECORDS SUMMARY | 2024-09-13 06:32 | XMS_ITS | Encounter Summary ---
Author Organization [facility] Address [address] [place] [address]. [place] [address] [place] [address] Care Team Providers Care Lorry Weigher Name Role Phone Sebastien Sequeira MD Primary Care Provider [phone] Reason for Visit * Reason Comments Knee Pain RIGHT Shoulder Pain LEFT Encounter Details Date Type Department Care Team (Late st Contact Info) Description 07/23/2022 9:15 AM DOUGHNUT MACHINE OPERATOR Office Visit [address] [address] Adele Garcia, [facility]- [address] [facility] [place] [id number] Knee Pain (RIGHT); Shoulder Pain (LEFT) Social History Tobacco Use [...] Coronavirus/COVID-19? No / Unsure 09/23/2022 11:23 AM DOUGHNUT MACHINE OPERATOR documented as of this encounter Last Filed Vital Signs Vital Sign Reading Time Taken Comments Blood Pressure - - Pulse - - Temperature - - Respiratory Rate - - Oxygen Saturation - - Inhaled Oxygen Concentration - - Weight 122.5 kg (270 lb) 07/23/2022 9:06 AM DOUGHNUT MACHINE OPERATOR Height 177.8 cm (5' 10 ) 07/23/2022 9:06 AM DOUGHNUT MACHINE OPERATOR Body Mass Index 38.74 07/23/2022 9:06 AM DOUGHNUT MACHINE OPERATOR documented in this encounter Functional [...] documented in this encounter Progress Notes * Adele Garcia, WAITER/WAITRESS TAVERN-BC - 07/23/2022 9:15 AM CST Chief Complaint: Knee Pain (RIGHT) and Shoulder Pain (LEFT) History of Present Illness: Gilma Mills is a 72-year-old female who presents to the office for Knee Pain (RIGHT) and Shoulder Pain (LEFT) Patient is in clinic today for pain in the LEFT shoulder. She locates the pain in the anterior aspect of the LEFT shoulder without radiation. She states no swelling noted to the LEFT shoulder. She states no numbness or tingling noted to the LEFT shoulder. She is also in clinic follow up of the RIGHT knee pain. She received an injection to the RIGHT kneeon 07/09/2022. She states she did not get any relief in her RIGHT knee from the injection. She locates the pain in the anterior aspect of the RIGHT knee with radiation down to the mid RIGHT foster. Shestates swelling noted to the RIGHT knee.She states numbness and tingling noted to the RIGHT knee with radiation down to the RIGHT foot and all 5 toes of the RIGHT foot. She is using Tylenol and Ibuprofen for pain without relief. She has been using Aspercream and Voltaren topical on her RIGHT knee for pain with minimal relief. She is RIGHT hand dominant. She is in clinic today with a cane for ambul ation. Previous HPI:07/09/2022 Patient comes in the office today for [...] with the RIGHT shoulder. She is retired. ?? While in the office today patient is [...] any imaging performed after her last fall. ?? ROS: See HPI for pertinent positives Problem [...] index is 38.74 kg/m??. Last Recorded Weight 07/23/22905 Weight: 122.5 kg (270 lb) Physical exam: Constitutional: Alert and in no acute distress. Neurological: The patient was oriented to person, place, and time. Eyes: The sclera and conjunctiva were normal ENT: Hearing was normal. Neck: The appearance of the neck was normal. Cardiovascular: Normal pulses. Pulmonary: No respiratory distress. Skin: No injuries or skin lesion. Musculoskeletal: Exam of Left shoulder today reveals anterior and posterior tenderness with palpation, good active range of motion with mild limited internal and external rotation, pain with cuff resistance, good cuff strength, positive crepitus, negative speeds, positive Lundberg, negative drop arm, palpable radial pulse. EXAM of RIGHT knee today reveals diffuse tenderness over knee and pes anserine bursa with palpation, range of motion stiff lacking 3 degrees full extension with flexion of 100 degrees, mild effusion,no groin pain with hip rotation, antalgic gait, old healed incision, no redness, slight warmth, ecchymosis to medial proximal tibia and inferior patella region, palpable pedal pulse. Results: X-ray of left shoulder today demonstrates severe glenohumeral osteoarthritis with moderate AC jointosteoarthritis with no acute or healing bony injury or dislocation. Procedure: Procedure: Injection of the Glenohumeral Joint on the left. Indications for the procedure include Osteoarthritis and Joint Pain. The procedure's were discussed with the patient. Verbal consent was obtained prior to the procedure. Procedure Note: Gilma was prepped and draped in the usual sterile fashion using alcohol and using betadine. Anesthesia: Ethyl chloride spray was used as a topical anesthetic. A 22 gauge and 1.5 Inch needle was used to inject 4 mL lidocaine 1% and 1 mL methylprednisolone 80 mg/mL. Dressing: A bandage was applied. Post-Procedure: the patient tolerated the procedure well. Complications: there were no complications. Follow-up in the office prn. Procedure: Procedure: Aspiration of the Knee Joint on the right. Indications for the procedure include Effusion. The procedure's were discussed with the patient. Verbal consent was obtained prior to the procedure. Procedure Note: Gilma was prepped and draped in the usual sterile fashion using alcohol and using betadine. Anesthesia: Ethyl chloride spray was used as a topical anesthetic. Scant amount of Bloody fluid wasaspirated with a 18-gauge. Dressing: A bandage was applied. Specimen: The aspirate was not sent. Post-Procedure: the patient tolerated the procedure well. Complications: there were no complications. Follow-up in the office 1 week. Assessment: Encounter Diagnose(s) ICD-10-CM ICD-9-CM SNOMED CT(R) 1. Osteoarthritis of left glenohumeral joint M19.012 715.91 OSTEOARTHRITIS OF LEFT GLENOHUMERAL JOINT 2. Painful orthopaedic hardware (CMS/HCC) T84.84XA 996.78 PAIN Plan: Reviewed imaging with patient in the office today. I have recommended proceeding with a glenohumeral injection which was given in the office today and tolerated well. Activity as tolerated. She will follow up as needed for her LEFT shoulder pain. As far as her knee pain I have recommended aspiration which was attempted and only a scant part of bloody drainage was obtained. Since she is having significant pain with ambulation we will proceed with obtaining labs (CBC, CRP and ESR) to assist with ruling out possible infection. She did have a fall a few months ago and is currently being worked up for why she is having frequent ecchymotic areas which could be the cause of her pain. Activity as tolerated. She will follow up next week to review labs and reevaluation with Dr. So. In the meantime we will see if we can obtain her operativenote from her total knee arthroplasties she had in 2007. Follow up: Return in about 1 week (around 07/30/2022). MUKESH FLORES HNUT MACHINE OPERATOR documented in this encounter Plan [...] Diagnosis Osteoarthritis of left glenohumeral joint- Primary Painful orthopaedic hardware (CMS/HCC) documented in this encounter Administered Medications Inactive Administered Medications - up to 3 most recent administrations Medication Order MAR Action Action Date Dose Rate Site lidocaine (XYLOCAINE) 1 % injection SOLN 4 mL 4 mL, Other, Once, 1 dose, On Thu07/23/22 at 1045 Given 07/23/2022 10:29 AM DOUGHNUT MACHINE OPERATOR 4 mLs Left Shoulder methylPREDNISolone acetate (DEPO-Medrol) injection 80 mg 80 mg, Intramuscular, Once, 1 dose, On Thu07/23/22 at 1045, Shake Well Given 07/23/2022 10:30 AM DOUGHNUT MACHINE OPERATOR 80 mg Other documented in this encounter Care Teams Lorry Weigher Relationship Specialty Start Date End Date Sebastien Sequeira MD [address] [place] [address] PCP - General INTERNAL MEDICINE 08/02/20 documented as of this encounter
--- OUTSIDE RECORDS SUMMARY | 2024-09-13 06:32 | XMS_ITS | Encounter Summary ---
Author Organization [facility] Address [address] [place] [address]. [place] [address] [place] Care Team Providers Care Joint Machine Operator Name Role Phone Sebastien Sequeira MD Primary Care Provider [phone] Reason for Visit * Reason Comments Therapy Report (SCAN) Encounter Details Date Type Department Care Team (Late st Contact Info) Description 10/09/2021 Scan [facility] [address] [facility] [place] [address] Scanned, Documents Therapy Report (SCAN) Social History [...] COVID-19? No / Unsure 10/08/2021 2:47 PM DRY CHARGE PROCESS ATTENDANT documented as of this encounter Functional Status [...] Assessment Author Status No 06/24/2021 11:17 AM CADNELARIOT Vania Degroot RN Active * Do you [...] on filedocumented in this encounter Care Teams Joint Machine Operator Relationship Specialty Start Date End Date Sebastien Sequeira MD [address] [place] [id number] PCP - General INTERNAL MEDICINE 08/02/20 documented as of this encounter
--- OUTSIDE RECORDS SUMMARY | 2024-09-13 06:32 | XMS_ITS | Encounter Summary ---
Author Organization [facility] Address [address] [place] [address]. [place] [address] [place] [address] Care Team Providers Care Tafe Teacher Name Role Phone Sebastien Sequeira MD Primary Care Provider [phone] Reason for Referral * Physical Medicine (Routine) - Closed Specialty Diagnoses / Procedures Referred By Aaron rai Referred To Contact PHYSICAL THERAPY Diagnoses History of total knee arthroplasty, right Procedures OFFICE/OUTPT VISIT,NEW,LEVL III OFFICE/OUTPT VISIT,NEW,LEVL IV OFFICE/OUTPT VISIT,NEW,LEVL V OFFICE/OUTPT VISIT,EST,LEVL III OFFICE/OUTPT VISIT,EST,LEVL IV OFFICE/OUTPT VISIT,EST,LEVL V Aedle Garcia FNP-BC [address] [facility] [place] [address] Phone: tel: fax: [facility] [address] [place] [address] Phone: tel: fax: Referral ID Status Reason Start Date Expiration Date V isits Requested Visits Authorized [id number] Closed Physical Therapy 10/31/2022 12/01/2023 1 1 E MECHANIC Reason for Visit * Reason Comments Postop Followup DOS 09/11/22 RIGHT k nee hamstring tenotomy Encounter Details Date Type Department Care Team (Late st Contact Info) Description 10/31/2022 10:45 AM CABLE MECHANIC Office Visit [facility] [address] [facility] [address] [place] [address] Adele Garcia, [facility]- [address] [facility] [place] [phone] Postop Followup (DOS 09/11/22 RIGHT knee hamstring [...] Coronavirus/COVID-19? No / Unsure 10/31/2022 10:15 AM CABLE MECHANIC documented as of this encounter Last Filed Vital Signs Vital Sign Reading Time Taken Comments Blood Pressure - - Pulse - - Temperature - - Respiratory Rate - - Oxygen Saturation - - Inhaled Oxygen Concentration - - Weight 129.3 kg (285 lb) 10/31/2022 10:21 AM CABLE MECHANIC Height 177.8 cm (5' 10 ) 10/31/2022 10:21 AM CABLE MECHANIC Body Mass Index 40.89 10/31/2022 10:21 AM CABLE MECHANIC documented in this encounter Functional Status * [...] in this encounter Progress Notes * Adele Curtis Jose, BRICK WHEELER-BC - 10/31/2022 10:45 AM CST Chief Complaint: Postop Followup (DOS 09/11/22 RIGHT knee hamstring tenotomy) History of Present Illness: Gilma Mills is a 72-year-old female who presents to the office for Postop Followup (DOS 09/11/22 RIGHT knee hamstring tenotomy) Patient here for postop follow up RIGHT knee. She complains of pain in the patella with radiation to the anterior foster. She complains of tenderness and throbbing pain. She denies any swelling but hassome bruising to the medial calf. She has some numbness in the knee and foster at times. Pain increases with ambulation. She is taking [place] and Aleve or Tylenol with fair relief. She is not currently in therapy. She is using a cane. She is retired. Previous HPI: 09/23/2022 Patient here in clinic for Post-Op follow up of RIGHT knee. is having a little pain located to [...] (CMS/HCC) ??? Osteoarthritis of left glenohumeral joint ??? History of total knee arthroplasty, right ??? Recurrent pain of right knee History: Past [...] index is 40.89 kg/m??. Last Recorded Weight 10/31/22 1021 Weight: 129.3 kg (285 lb) Physical exam: Constitutional: Alert and in no acute distress. Neurological: The patient was oriented to person, place, and time. Eyes: The sclera and conjunctiva were normal ENT: Hearing was normal. Neck: The appearance of the neck was normal. Cardiovascular: Normal pulses. Pulmonary: No respiratory distress. Skin: No injuries or skin lesion. Musculoskeletal: EXAM of RIGHT knee today reveals diffuse tenderness with palpation greatest over medial aspect of the knee, minimal effusion, old incision healed without redness or warmth, pain withflexion, range of motion 3- 110, no groin pain with hip rotation, antalgic gait. Results: X-ray of right knee today demonstrates arthroplasty in stable positioning without signs of loosening and no acute or healing bony injury or dislocation. Assessment: Encounter Diagnose(s) ICD-10-CM ICD-9-CM SNOMED CT(R) 1. Recurrent pain of right knee M25.561 719.46 PAIN OF KNEE REGION 2. History of total knee arthroplasty, right Z96.651 V43.65 HISTORY OF RIGHT TOTAL KNEE REPLACEMENTAmbulatory referral to Physical Therapy Plan: Reviewed imaging with patient in the office today. She initially had good relief post operatively but her pain returned without any known injury. She does have a history of fibromyalgia it is difficulty to distinguish if her pain is exacerbated by her fibromyalgia. On examination there is not a significant joint effusion so I have recommended holding off on aspiration at this time. We will go ahead and obtain labs (CRP, ESR, and CBC) to evaluate for possible infection. I have also reviewed her examination symptoms and imaging with Dr. So as well. We will go ahead and place her back in physical therapy and she will follow up in [address] So for reevaluation. We will notify the patient of her lab results once they have been resulted and if we need to have return sooner. Follow up: Return in about 4 weeks (around 11/28/2022). MUKESH FLORES E MECHANIC documented in this encounter Plan of Treatment Scheduled Referrals Name Type Priority Associated Diagnoses Orde r Schedule Ambulatory referral to Physical Therapy Referral Routine History of total knee arthroplasty, right Ordered: 10/31/2022 documented as of this encounter Goals Goal Patient Goal Type Associated Problems Recent Progress Patient-Stated? Author Safety - able to safely ambulate at home; tripping hazards removed from the home General Krystal Wahl RN Note: Pt wants to go home safely with new walker. Pt made aware that therapy will work with her on safety. documented as of this encounter Visit Diagnoses Diagnosis Recurrent pain of right knee- Primary History of total knee arthroplasty, right documented in this encounter Care Teams Tafe Teacher Relationship Specialty Start Date End Date Sebastien Sequeira MD [address] [place] [id number] PCP - General INTERNAL MEDICINE 08/02/20 documented as of this encounter
--- OUTSIDE RECORDS SUMMARY | 2024-09-13 06:32 | XMS_ITS | Encounter Summary ---
Author Organization [facility] Address [facility] [place] [address] [place] [address] Care Team Providers Care Uptwist Spinner Name Role Phone Sebastien Sequeira MD Primary Care Provider [phone] Encounter Details Date Type Department Care Team (Latest Contact Info) Description 08/27/2022 Travel Social History Tobacco Use Types Packs/Day [...] Coronavirus/COVID-19? No / Unsure 08/27/2022 3:08 PM CHILDREN'S TUTOR NURSERY documented as of this encounter Functional Status [...] removed from the home General No Krystal Quilgey RN Note: Pt wants to go home safely with new walker. Pt made aware that therapy will work with her on safety. documented as of this encounter Visit Diagnoses Not on filedocumented in this encounter Care Teams Uptwist Spinner Relationship Specialty Start Date End Date Sebastien Sequeira MD [address] [place] [address] PCP - General INTERNAL MEDICINE 08/02/20 documented as of this encounter
--- OUTSIDE RECORDS SUMMARY | 2024-09-13 06:32 | XMS_ITS | Encounter Summary ---
Author Organization [facility] Address [address] [place] [address]. [place] [address] [place] [address] Care Team Providers Care Machine Silk Screen Printer Name Role Phone Sebastien Sequeira MD Primary Care Provider [phone] Reason for Visit * Reason Comments Knee Pain RIGHT Encounter Details Date Type Department Care Team (Late st Contact Info) Description 12/03/2022 2:30 PM CDT Office Visit [facility] [place] [id number] Gustavo So MD [address] [place], [place] [phone] Knee Pain (RIGHT ) Social History Tobacco Use Types Packs/Day Years [...] PM CDT documented as of this encounter Last Filed Vital Signs Vital Sign Reading Time Taken Comments Blood Pressure - - Pulse - - Temperature - - Respiratory Rate - - Oxygen Saturation - - Inhaled Oxygen Concentration - - Weight 129.3 kg (285 lb) 12/03/2022 2:22 PM CDT Height 177.8 cm (5' 10 ) 12/03/2022 2:22 PM CDT Body Mass Index 40.89 12/03/2022 2:22 PM CDT documented in this encounter Functional [...] Progress Notes * Gustavo So MD - 12/03/2022 2:30 PM CDT Chief Complaint: Knee Pain (RIGHT ) History of Present Illness: Gilma Mills is a 72-year-old female who presents to the office for Knee Pain (RIGHT ) Patient comes in the office today for RIGHT knee pain. She locates pain in the posterior aspect of the RIGHT knee. She states has swelling and numbness and tingling. She denies any Bruising. She states in PT in [place] 2 days week. She states uses a cane for stability. She states has night pain. She states has had (DOS 09/11/22 RIGHT knee hamstring tenotomy. She states no injection has been doneto the RIGHT knee. She is not working. ROS: See HPI for pertinent positives Problem [...] mouth daily as needed., Disp: , Rfl: ??? clopidogrel 75 MG tablet, Take 1 tablet (75 mg total) by mouth daily., Disp: , Rfl: ??? EUTHYROX 125 MCG tablet, Take 1 tablet (125 mcg total) by mouth daily., Disp: , Rfl: ??? ezetimibe 10 MG tablet, Take 1 tablet (10 mg total) by mouth daily., Disp: , Rfl: ??? furosemide 20 MG tablet, Take 1 tablet (20 mg total) by mouth as needed., Disp: , Rfl: ??? nortriptyline 25 MG capsule, Take 1 capsule (25 mg total) by mouth nightly at bedtime., Disp: ,Rfl: ??? pantoprazole EC 40 MG tablet, Take 1 tablet (40 mg total) by mouth daily., Disp: , Rfl: ??? pregabalin (LYRICA) 150 MG capsule, Take 1 capsule (150 mg total) by mouth 3 (three) times daily., Disp: , Rfl: ??? propranolol LA 160 MG 24 hr capsule, Take 1 capsule (160 mg total) by mouth daily., Disp: , Rfl: ??? rOPINIRole 2 MG tablet, Take 2 tablets (4 mg total) by mouth nightly at bedtime., Disp: , Rfl: ??? rosuvastatin 20 MG tablet, Take 1 tablet (20 mg total) by mouth nightly at bedtime. at bedtime., Disp: , Rfl: ??? Semaglutide (OZEMPIC, 0.25 OR 0.5 MG/DOSE, SC), Inject 1 mg into the skin weekly. , Disp: , Rfl: ??? spironolactone 50 MG tablet, Take 1 tablet (50 mg total) by mouth daily., Disp: , Rfl: ??? traMADol (ULTRAM) 50 MG tablet, Take 1 tablet (50 mg total) by mouth every 6 (six) hours as needed for Pain. Indications: Chronic Pain, Disp: 15 tablet, Rfl: 0 ??? venlafaxine XR 150 MG 24 hr capsule, Take 1 capsule (150 mg total) by mouth daily., Disp: , Rfl: Allergies Allergen Reactions ??? Contrave [Naltrexone-Bupropion Hcl Er] Dizziness ??? Zanaflex [Tizanidine] Other (see comment) hypotension ??? Statins Rash Objective: Body mass index is 40.89 kg/m??. Last Recorded Weight 12/03/22 1422 Weight: 129.3 kg (285 lb) Physical exam: Constitutional: Alert and in no acute distress. Neurological: The patient was oriented to person, place, and time. Eyes: The sclera and conjunctiva were normal ENT: Hearing was normal. Neck: The appearance of the neck was normal. Cardiovascular: Normal pulses. Pulmonary: No respiratory distress. Skin: No injuries or skin lesion. Musculoskeletal: Right knee examination demonstrates no erythema. There is no ligament instability.Her pain is localized to the patella and palpation reproduces discomfort. Deep flexion also increases anterior knee discomfort. No tenderness over the pes anserine and she has nice range of motion. She has venous stasis changes in both legs with edema in the ankles Results: X-ray was reviewed and I do not see obvious evidence of loosening or subsidence. She has bilateral total knee arthroplasties that appear stable Assessment: Encounter Diagnose(s) ICD-10-CM ICD-9-CM SNOMED CT(R) 1. Recurrent pain of right knee M25.561 719.46 PAIN OF KNEE REGION Plan: Patient describes burning pain on the anterior aspect of the knee mainly with stairs or getting up out of a chair. She is using a cane to help with ambulation and has an antalgic gait but she does not describe start up pain or mechanical pain with weightbearing which would suggest loosening. I do not have any options to help with her current pain except for her to lose weight which will reduce stress across her kneecap. She is going to finish up therapy and we have discussed exercise modalities. She will return as needed Follow up: Return if symptoms worsen or fail to improve. GUSTAVO SO MD documented in this encounter Plan of Treatment [...] Diagnosis Recurrent pain of right knee- Primary documented in this encounter Care Teams Machine Silk Screen Printer Relationship Specialty Start Date End Date Sebastien Sequeira MD [address] [place] [address] PCP - General INTERNAL MEDICINE 08/02/20 documented as of this encounter
--- OUTSIDE RECORDS SUMMARY | 2024-09-13 06:32 | XMS_ITS | Encounter Summary ---
Author Organization [facility] Address [address] [place] [address]. [place] [address] [place] [address] Care Team Providers Care Medical Consultant Name Role Phone Sebastien Sequeira MD Primary Care Provider [phone] Reason for Visit * Reason Comments Postop Followup DOS: 06/24/21 RIGHT reverse total shoulder arthroplasty Encounter Details Date Type Department Care Team (Late st Contact Info) Description 12/10/2021 1:45 PM CDT Office Visit [facility] [address] [address] Gustavo So MD [address] [place] [address] Adele Garcia, [facility]- [address] [place] [address] Postop Followup (DOS: 06/24/21 RIGHT reverse total [...] - - Weight 129.3 kg (285 lb) 12/10/2021 1:30 PM CDT Height 177.8 cm (5' 10 ) 12/10/2021 1:30 PM CDT Body Mass Index 40.89 12/10/2021 1:30 PM CDT documented in this encounter Functional [...] this encounter Progress Notes * Adele Garcia, MATZO FORMING MACHINE OPERATOR-BC - 12/10/2021 1:45 PM CDT Chief Complaint: Postop Followup (DOS: 06/24/21 RIGHT reverse total shoulder arthroplasty) History of Present Illness: Gilma Mills is a 71-year-old female who presents to the office for Postop Followup (DOS: 06/24/21 RIGHT reverse total shoulder arthroplasty) Patient comes in to clinic today for follow up of RIGHT reverse total shoulder. Patient had spinal fusion surgery on 11/18/2021 and is currently using a walker for ambulation. She reports only some difficulty with overhead reach. Denies any pain, swelling, numbness, or tingling. She is not taking any pain medication for her shoulder. Denies any night pain in RIGHT shoulder. She is RIGHT hand domin ant. Previous HPI:10/09/2021 Patient comes in to clinic today for [...] shoulder ??? Follow-up examination after orthopedic surgery History: Past Medical History: Diagnosis Date ??? [...] as needed. , Disp: , Rfl: ??? gabapentin 100 MG capsule, Take 200 mg by mouth 3 (three) times daily., Disp: , Rfl: ??? nortriptyline 25 MG capsule, Take 1 capsule by mouth nightly at bedtime., Disp: , Rfl: ??? oxyCODONE-acetaminophen 5-325 MG tablet, 1 tablet every 4 (four) hours as needed. FOR PAIN, Disp: , Rfl: ??? pantoprazole EC 40 [...] index is 40.89 kg/m??. Last Recorded Weight 12/10/21 1330 Weight: 129.3 kg (285 lb) Physical exam: Constitutional: Alert and in no acute distress. Neurological: The patient was oriented to person, place, and time. Eyes: The sclera and conjunctiva were normal ENT: Hearing was normal. Neck: The appearance of the neck was normal. Cardiovascular: Normal pulses. Pulmonary: No respiratory distress. Skin: No injuries or skin lesion. Musculoskeletal: Exam of right shoulder today demonstrates incision healed without redness or warmth, minimal tenderness with palpation, range of motion good with only restriction active of forward flexion to 140, internal rotation to L5, neurovascularly intact. Results: X-ray of right shoulder today demonstrates hardware in stable positioning without signs of loosening and no acute or healing bony injury. Assessment: Encounter Diagnose(s) ICD-10-CM ICD-9-CM SNOMED CT(R) 1. Follow-up examination after orthopedic surgery Z09 V67.09 SURGICAL FOLLOW-UP Plan: Reviewed imaging with patient office today. Patient has recently had lumbar spine surgery and was restricted on overhead activity. She has started to increase her activities overhead and is continuing to work on her range of motion. Patient is pleased with her progress and has noticed that she hasseen increased range of motion over the past few weeks. Activity as tolerated. She will follow-up in 6 months for reevaluation. Follow up: Return in about 6 months (around 06/12/2022) for Visit with Imaging (RIGHT shoulder). MUKESH FLORES documented in this encounter [...] surgery documented in this encounter Care Teams Medical Consultant Relationship Specialty Start Date End Date Sebastien Sequeira MD [address] [place] [address] PCP - General INTERNAL MEDICINE 08/02/20 documented as of this encounter
--- OUTSIDE RECORDS SUMMARY | 2024-09-13 06:33 | XMS_ITS | Encounter Summary ---
Author Organization [facility] Address [facility] [place] [address] [place] [address] Care Team Providers Care Shoemaker Custom Name Role Phone Sebastien Sequeira MD Primary Care Provider [phone] Reason for Referral * Physical Medicine (Routine) - Closed Specialty Diagnoses / Procedures Referred By Aaron rai Referred To Contact PHYSICAL THERAPY Diagnoses Rotator cuff arthropathy of right shoulder Status post reverse arthroplasty of right shoulder Adele Garcia FNP-BC [address] [place] [address] Phone: tel: fax: Referral ID Status Reason Start Date Expiration Date V isits Requested Visits Authorized [id number] Closed Physical Therapy 06/25/2021 07/26/2022 1 1 Encounter Details Date Type Department Care Team (Late st Contact Info) Description 06/25/2021 Orders Only [facility] [address] [address] Adele Garcia FNP-BC [address] [facility] Social History Tobacco Use Types [...] have Coronavirus / COVID-19? No / Unsure 06/24/2021 6:25 AM CDT documented as of this encounter [...] Ambulatory referral to Physical Therapy Referral Routine Rotator cuff arthropathy of right shoulder Status post reverse arthroplasty of right shoulder Ordered: 06/25/2021 documented as of this encounter Goals Goal [...] as of this encounter Visit Diagnoses Diagnosis Rotator cuff arthropathy of right shoulder- Primary Rotator cuff tear arthropathy, unspecified laterality Status post reverse arthroplasty of right shoulder documented in this encounter Care Teams Shoemaker Custom Relationship Specialty Start Date End Date Sebastien Sequeira MD [address] [place] [address] PCP - General INTERNAL MEDICINE 08/02/20 documented as of this encounter
--- OUTSIDE RECORDS SUMMARY | 2024-09-13 06:33 | XMS_ITS | Encounter Summary ---
Author Organization [facility] Address [facility] [place] [address] [place] [address] Care Team Providers Care Solution Strategist Name Role Phone Sebastien Sequeira MD Primary Care Provider [phone] Encounter Details Date Type Department Care Team (Latest Contact Info) Description 06/12/2021 9:41 AM CDT - 06/12/2021 11:59 PM CDT Hospital Encounter [facility] [address] [facility] [place] [address] Gustavo So MD [address] [place] [address] Discharge Disposition: Home or Self [...] have Coronavirus / COVID-19? No / Unsure 06/12/2021 9:37 AM CDT documented as of this encounter Functional Status * RETIRED Are you deaf or do you have serious difficulty hearing Answer Date of Assessment Author Status No 11/19/2020 1:16 PM BAR ROLLER Activ e * RETIRED Are you blind or do you have serious difficulty seeing, even when wearing glasses? Answer Date of Assessment Author Status No 11/19/2020 1:16 PM BAR ROLLER Activ e * Do you have serious difficulty walking or climbing stairs? Answer Date of Assessment Author Status Yes 11/19/2020 1:16 PM Nory Barron R N Active * Do you have difficulty dressing or bathing? Answer Date of Assessment Author Status No 11/19/2020 1:16 PM Nory Barron R N Active * Because of a physical, mental, or emotional condition, do you have difficulty doing errands alone such as visiting a doctor's office or shopping? Answer Date of Assessment Author Status No 11/19/2020 1:16 PM Nory Barron R N Active documented as of this encounter Mental Status * Because of a physical, mental, or emotional condition, do you have serious difficulty concentrating, remembering, or making decisions? Answer Entry Date Author Status No 11/19/2020 1:16 PM Nory Barron R N Active documented in this encounter Medications at [...] mouth nightly at bedtime. at bedtime. 10/18/2020 venlafaxine XR 150 MG 24 hr capsule Take 1 capsule (150 mg total) by mouth every morning. 05/24/2020 aspirin EC 81 MG tabletIndications: Status post reverse arthroplasty of right shoulder,Rotator cuff arthropathy of right shoulder Take 1 tablet (81 mg total) by mouth 2 (two) times daily with meals for 14 days. 28 tablet 06/25/2021 1 busPIRone 15 MG tablet Take 1 tablet (15 mg total) by mouth daily as needed. 11/26/2020 4 cyclobenzaprine 10 MG tablet Take 10 mg by mouth 2 (two) times daily as needed. 02/10/2021 2 EUTHYROX 125 MCG tablet Take 1 tablet (125 mcg total) by mouth daily. 07/15/2020 3 furosemide 20 MG tablet Take 1 tablet (20 mg total) by mouth as needed. 01/14/2020 3 HYDROcodone-acetam inophen 5-325 MG tabletIndications: Acute Pain < 7 Day Supply Take 1-2 tablets by mouth every 4 (four) hours as needed for Pain. Indications: Acute Pain < 7 Day Supply 30 tablet 06/25/2021 2 pregabalin 200 MG capsule Take 200 mg by mouth 2 (two) times daily. 12/26/2020 2 propranolol LA 160 MG 24 hr capsule Take 1 capsule (160 mg total) by mouth daily. 05/11/2020 3 spironolactone 100 MG tablet Take 1 tablet by mouth daily. 01/20/2020 2 traMADol 50 MG tablet Take 50 mg by mouth every 4 (four) hours as needed. 01/11/2021 2 documented as of this encounter Plan of [...] Name Priority Date/Time Associated Diagnosis Comments ECG 12-LEAD Routine 06/12/2021 10:09 AM CDT Hypertension, unspecified type documented in this encounter Results * ECG 12 lead (06/12/2021 10:09 AM CDT) 06/12/2021 10:0 9 AM CDT Narrative [facility] - 06/12/2021 12:47 PM CDT ? [facility] ?[address] [place], [place] ??[address] ? Test Date: ?2021-06-12 Pat Name: ? KEEGAN MILLS ? Department: ? Room: ? Gender: ? Female ? Database Programmer Analyst: ?? : ?1950 ? Requested By: GUSTAVO SO Order Number: [id number] ? Reading MD: ?? Timoteo Saucedo ? Measurements Intervals ?[place] ? Rate: ? 80 ? P: ?38 MN: ? 197 ?QRS: ?2 QRSD: ? 109 ?T: ?68 QT: ? 371 ? QTc: ?430 ? Interpretive Statements SINUS RHYTHM WITH OCCASIONAL ECTOPIC PREMATURE COMPLEXES Procedure Note Timoteo Saucedo MD - 06/12/[address] [place] [address] Test Date: 2021-06-12 Pat Name: KEEGAN MILLS Department: Room: Gender: Female Database Programmer Analyst: : 1950 Requested By: GUSTAVO SO Order Number: [id number] Chandrika MD: Timoteo Saucedo Measurements Intervals [place] Rate: 80 P: 38 MN: 197 QRS: 2 QRSD: 109 T: 68 QT: 371 QTc: 430 Interpretive Statements SINUS RHYTHM WITH OCCASIONAL ECTOPIC PREMATURE COMPLEXES us Gustavo So MD ECG ORDERABLES Final Result [facility] documented in this encounter Visit Diagnoses Diagnosis Hypertension, unspecified type documented in this encounter Care Teams Solution Strategist Relationship Specialty Start Date End Date Sebastien Sequeira MD [address] [place] [phone] PCP - General INTERNAL MEDICINE 08/02/20 documented as of this encounter
--- OUTSIDE RECORDS SUMMARY | 2024-09-13 06:33 | XMS_ITS | Encounter Summary ---
Author Organization [facility] Address [address] [place] [address]. [place] [address] [place] [address] Care Team Providers Care Multiple Needle Stitcher Name Role Phone Sebastien Sequeira MD Primary Care Provider [phone] Reason for Visit * Reason Onset Date Comments Question 07/01/2021 Encounter Details Date Type Department Care Team (Late st Contact Info) Description 07/01/2021 Telephone [facility] [place] [id number] Wolfgang Sin, RN Question Social History Tobacco Use Types Packs/Day Years [...] Progress Notes * Wolfgang Sin RN - 07/01/2021 9:10 AM CDT Patient called in to report her incision site is very itchy. Discussed with Adele SENIOR CONTRACTS MANAGER and advised patient to remove EDUARDO dressing today, clean the incision with soap and water. If there are any blisters, yellow drainage, or any other signs of infections call the office to be seen. Patient verbalized understanding and didn't have any further questions at this time. documented in this encounter Plan of Treatment [...] on filedocumented in this encounter Care Teams Multiple Needle Stitcher Relationship Specialty Start Date End Date Sebastien Sequeira MD [address] [place] [phone] PCP - General INTERNAL MEDICINE 08/02/20 documented as of this encounter
--- OUTSIDE RECORDS SUMMARY | 2024-09-13 06:33 | XMS_ITS | Encounter Summary ---
Author Organization [facility] Address [address] [place] [address]. [place] [address] [place] [address] Care Team Providers Care Furnace Process Supervisor Name Role Phone Sebastien Sequeira MD Primary Care Provider [phone] Reason for Visit * Reason Comments Postop Followup DOS: 06/24/21 RIGHT reverse total shoulder arthroplasty Encounter Details Date Type Department Care Team (Latest Contact Info) Description 08/28/2021 2:45 PM POWER PLANT OPERATOR Office Visit [facility] [address] [address] Gustavo So MD [address] [place] [address] Postop Followup (DOS: 06/24/21 RIGHT reverse total [...] COVID-19? No / Unsure 08/28/2021 2:29 PM POWER PLANT OPERATOR documented as of this encounter Last Filed Vital Signs Vital Sign Reading Time Taken Comments Blood Pressure - - Pulse - - Temperature - - Respiratory Rate - - Oxygen Saturation - - Inhaled Oxygen Concentration - - Weight 133.8 kg (295 lb) 08/28/2021 2:44 PM POWER PLANT OPERATOR Height 177.8 cm (5' 10 ) 08/28/2021 2:44 PM POWER PLANT OPERATOR Body Mass Index 42.33 08/28/2021 2:44 PM POWER PLANT OPERATOR documented in this encounter Functional Status [...] Progress Notes * Gustavo So MD - 08/28/2021 2:45 PM CST Chief Complaint: Postop Followup (DOS: 06/24/21 RIGHT reverse total shoulder arthroplasty) History of Present Illness: Gilma Mills is a 71-year-old female who presents to the office for Postop Followup (DOS: 06/24/21 RIGHT reverse total shoulder arthroplasty) Patient comes in to clinic today for follow up of RIGHT shoulder surgery. She reports improvement since previous visit. She states she has improved ROM. She reports an occasional ache to her RIGHT bicep usually after therapy. Denies any swelling, numbness, or tingling. She is attending therapy 3 times per week with good results. She is not needing to take pain medication at this time. She uses a cane for ambulation. ROS: See HPI for pertinent positives Problem [...] needed. , Disp: , Rfl: ??? HYDROcodone-acetaminophen 5-325 MG tablet, Take 1-2 tablets by mouth every 4 (four) hours as needed for Pain. Indications: Acute Pain < 7 Day Supply, Disp: 30 tablet, Rfl: 0 ??? HYDROcodone-acetaminophen 5-325 MG tablet, Take 1 tablet by mouth every 6 (six) hours as needed. Indications: Chronic Pain, Disp: 30 tablet, Rfl: 0 ??? nortriptyline 25 MG [...] skin weekly., Disp: , Rfl: ??? spironolactone 100 MG tablet, Take 1 tablet by mouth daily., Disp: , Rfl: ??? traMADol 50 MG tablet, Take 50 mg by mouth every 4 (four) hours as needed., Disp: , Rfl: ??? venlafaxine XR 150 MG 24 hr capsule, Take 1 capsule by mouth daily., Disp: , Rfl: ??? cyclobenzaprine 10 MG tablet, Take 10 mg by mouth 2 (two) times daily as needed., Disp: , Rfl: Allergies Allergen Reactions ??? Contrave [Naltrexone-Bupropion Hcl Er] Dizziness ??? Zanaflex [Tizanidine] Other (see comment) hypotension ??? Statins Rash Objective: Body mass index is 42.33 kg/m??. Last Recorded Weight 08/28/21 1444 Weight: 133.8 kg (295 lb) Physical exam: Constitutional: Alert and in no acute distress. Neurological: The patient was oriented to person, place, and time. Eyes: The sclera and conjunctiva were normal ENT: Hearing was normal. Neck: The appearance of the neck was normal. Cardiovascular: Normal pulses. Pulmonary: No respiratory distress. Skin: No injuries or skin lesion. Musculoskeletal: Right shoulder exam demonstrates some weakness with resistance especially with abduction. She is doing a lot of muscle substitution with only about 80 degrees of abduction and 60 degrees of external rotation. Internal rotation she can passively cross the midline but can only get toher posterior beltline with active internal rotation. Neurovascularly intact Results: Assessment: Encounter Diagnose(s) ICD-10-CM ICD-9-CM SNOMED CT(R) 1. Status post reverse arthroplasty of right shoulder Z96.611 V43.61 HISTORY OF REVERSE PROSTHETIC TOTAL ARTHROPLASTY OF RIGHT SHOULDER Plan: Patient is doing well with resolution of her preoperative symptoms. Pain control is excellent but she still working on function. She will continue with physical therapy and I have renewed a prescription for her. Not having activity restrictions otherwise and I will see back in 6 weeks for reevaluation Follow up: Return in about 6 weeks (around 10/09/2021). GUSTAVO SO MD R PLANT OPERATOR documented in this encounter Plan of [...] Primary documented in this encounter Care Teams Furnace Process Supervisor Relationship Specialty Start Date End Date Sebastien Sequeira MD [address] [place] [address] PCP - General INTERNAL MEDICINE 08/02/20 documented as of this encounter
--- OUTSIDE RECORDS SUMMARY | 2024-09-13 06:33 | XMS_ITS | Encounter Summary ---
Author Organization [facility] Address [address] [place] [address]. [place] [address] [place] [address] Care Team Providers Care Software Security Consultant Name Role Phone Sebastien Sequeira MD Primary Care Provider [phone] Reason for Visit * Reason Comments Postop Followup DOS: 06/24/21 right reverse total shoulder arthroplasty using a DePuy delta extend 12mm stem with a size 1 eccentric body and a 38 mm +2 glenosphere with a +9 metal spacer with a + 3 polyethylene spacer, RIGHT total hip DOS: 11/19/2020, DOS:08/13/2020 left total hip arthroplasty Encounter Details Date Type Department Care Team (Latest Contact Info) Description 08/01/2021 3:15 PM MACHINE TOOL REBUILDER Office Visit [facility] [address] [place] [address] Gustavo So MD [address] [place] [address] Postop Followup (DOS: 06/24/21 right reverse total shoulder arthroplasty using a DePuy delta extend 12mm stem with a size 1 eccentric body and a 38 mm +2 glenosphere with a +9 metal spacer with a + 3 polyethylene spacer, RIGHT total hip DOS: 11/19/2020, DOS:08/13/2020 left total hip arthroplasty) Social History Tobacco Use Types Packs/Day [...] have Coronavirus / COVID-19? No / Unsure 08/01/2021 2:36 PM MACHINE TOOL REBUILDER documented as of this encounter Last Filed Vital Signs Vital Sign Reading Time Taken Comments Blood Pressure - - Pulse - - Temperature - - Respiratory Rate - - Oxygen Saturation - - Inhaled Oxygen Concentration - - Weight 135.2 kg (298 lb) 08/01/2021 2:57 PM MACHINE TOOL REBUILDER Height 177.8 cm (5' 10 ) 08/01/2021 2:57 PM MACHINE TOOL REBUILDER Body Mass Index 42.76 08/01/2021 2:57 PM MACHINE TOOL REBUILDER documented in this encounter Functional Status * [...] Progress Notes * Gustavo So MD - 08/01/2021 3:15 PM CST Chief Complaint: Postop Followup (DOS: 06/24/21 right reverse total shoulder arthroplasty using a DePuy delta [id number] stem with a size 1 eccentric body and a 38 mm +2 glenosphere with a +9 metal spacer with a + 3polyethylene spacer, RIGHT total hip DOS: 11/19/2020, DOS:08/13/2020 left total hip arthroplasty) History of Present Illness: Gilma Mills is a 71-year-old female who presents to the office for Postop Followup (DOS: 06/24/21 right reverse total shoulder arthroplasty using a DePuy delta extend 12mm stem with a size 1 eccentricbody and a 38 mm +2 glenosphere with a +9 metal spacer with a + 3 polyethylene spacer, RIGHT total hip DOS: 11/19/2020, DOS:08/13/2020 left total hip arthroplasty) Patient notes some pain in RIGHT shoulder but relates it to muscular pain. She locates pain in frontal shoulder with radiation into bicep. She is taking Tylenol and Tramadol for pain with good relief. She is using a cane to ambulate but no other assistive devices. She is RIGHT hand dominant. Patient continues PROM in PT and notes good progress but wishes to increase activity. Patient has no new complaints in office today. Patient states things are going well. She denies any pain related to hips. She does note occasionalcatching when bending over. Overall patient is happy with progress and results of both hips. ROS: See HPI for pertinent positives Problem [...] right reverse total shoulder arthroplasty using a [employer] delta extend 12mm stem with a size [...] as needed. , Disp: , Rfl: ??? cyclobenzaprine 10 MG [...] bedtime. at bedtime., Disp: , Rfl: ??? spironolactone 100 MG [...] Statins Rash Objective: Body mass index is 42.76 kg/m??. Last Recorded Weight 08/01/21 1457 Weight: 135.2 kg (298 lb) Physical exam: Constitutional: Alert and in no acute distress. Neurological: The patient was oriented to person, place, and time. Eyes: The sclera and conjunctiva were normal ENT: Hearing was normal. Neck: The appearance of the neck was normal. Cardiovascular: Normal pulses. Pulmonary: No respiratory distress. Skin: No injuries or skin lesion. Musculoskeletal: Right shoulder exam demonstrates pretty poor range of motion. She abducts activelyto 90 degrees but only has about 70 degrees external rotation. She cannot get to her posterior beltline with internal rotation. Hip range of motion is okay with no discomfort Results: X-ray of the right shoulder demonstrates good positioning of her reverse shoulder replacement and implants appear stable. X-rays of both hips demonstrates well-positioned total hip arthroplasties that appear to be stable.She does have some leg length asymmetry with the left about a centimeter short Assessment: Encounter Diagnose(s) ICD-10-CM ICD-9-CM SNOMED CT(R) 1. Status post reverse arthroplasty of right shoulder Z96.611 V43.61 HISTORY OF REVERSE PROSTHETIC TOTAL ARTHROPLASTY OF RIGHT SHOULDER 2. Status post right hip replacement Z96.641 V43.64 HISTORY OF REPAIR OF HIP JOINT 3. Status post left hip replacement Z96.642 V43.64 HISTORY OF REPAIR OF HIP JOINT Plan: Patient is doing well in regard to her hips. She is pleased with pain relief she is seen with her shoulder but function is still poor because of the stiffness. I sent her back to therapy and she willreturn to see me in a month Follow up: Return in about 4 weeks (around 08/29/2021). GUSTAVO SO MD INE TOOL REBUILDER documented in this encounter Plan of Treatment [...] arthroplasty of right shoulder- Primary Status post right hip replacement Hip joint replacement by other means Status post left hip replacement Hip joint replacement by other means documented in this encounter Care Teams Software Security Consultant Relationship Specialty Start Date End Date Sebastien Sequeira MD [address] [place] [address] PCP - General INTERNAL MEDICINE 08/02/20 documented as of this encounter
--- OUTSIDE RECORDS SUMMARY | 2024-09-13 06:33 | XMS_ITS | Encounter Summary ---
Author Organization [facility] Address [facility] [place] [address] [place] [address] Care Team Providers Care Bombsight Specialist Name Role Phone Sebastien Sequeira MD Primary Care Provider [phone] Encounter Details Date Type Department Care Team (Latest Contact Info) Description 06/12/2021 Travel Social History Tobacco Use Types Packs/Day [...] Assessment Author Status No 11/19/2020 1:16 PM UNDERWRITING CONSULTANT Activ e * RETIRED Are you blind or do you have serious difficulty seeing, even when wearing glasses? Answer Date of Assessment Author Status No 11/19/2020 1:16 PM UNDERWRITING CONSULTANT Activ e * Do you have serious [...] R N Active documented in this encounter Plan of [...] on filedocumented in this encounter Care Teams Bombsight Specialist Relationship Specialty Start Date End Date Sebastien Sequeira MD [address] [place] [phone] PCP - General INTERNAL MEDICINE 08/02/20 documented as of this encounter
--- OUTSIDE RECORDS SUMMARY | 2024-09-13 06:33 | XMS_ITS | Encounter Summary ---
Author Organization [facility] Address [facility] [place] [address] [place] [address] Care Team Providers Care Sheltered Workshop Worker Name Role Phone Sebastien Sequeira MD Primary Care Provider [phone] Encounter Details Date Type Department Care Team (Latest Contact Info) Description 06/21/2021 Travel Social History Tobacco Use Types Packs/Day [...] have Coronavirus / COVID-19? No / Unsure 06/21/2021 8:42 AM CDT documented as of this encounter Functional Status * RETIRED Are you deaf or do you have serious difficulty hearing Answer Date of Assessment Author Status No 11/19/2020 1:16 PM DIGITAL COMMUNITY MANAGER Activ e * RETIRED Are you blind or do you have serious difficulty seeing, even when wearing glasses? Answer Date of Assessment Author Status No 11/19/2020 1:16 PM DIGITAL COMMUNITY MANAGER Activ e * Do you have serious [...] Diagnoses Not on filedocumented in this encounter Additional Health Concerns Infection Onset Date Last Indicated Resolved Time COVID-19 Rule Out 06/21/2021 06/21/2021 06/21/2021 7:19 PM CDT documented as of this encounter Care Teams Sheltered Workshop Worker Relationship Specialty Start Date End Date Sebastien Sequeira MD [address] [place] [address] PCP - General INTERNAL MEDICINE 08/02/20 documented as of this encounter
--- OUTSIDE RECORDS SUMMARY | 2024-09-13 06:33 | XMS_ITS | Encounter Summary ---
Author Organization [facility] Address [facility] [place] [address] [place] [address] Care Team Providers Care Electrolysist Name Role Phone Sebastien Sequeira MD Primary Care Provider [phone] Encounter Details Date Type Department Care Team (Latest Contact Info) Description 08/01/2021 Travel Social History Tobacco Use Types Packs/Day [...] COVID-19? No / Unsure 08/01/2021 2:36 PM FRUIT WASHER documented as of this encounter Functional Status [...] on filedocumented in this encounter Care Teams Electrolysist Relationship Specialty Start Date End Date Sebastien Sequeira MD [address] [place] [address] PCP - General INTERNAL MEDICINE 08/02/20 documented as of this encounter
--- OUTSIDE RECORDS SUMMARY | 2024-09-13 06:33 | XMS_ITS | Encounter Summary ---
Author Organization [facility] Address [address] [place] [address]. [place] [address] [place] [address] Care Team Providers Care Spinning Machine Operator Name Role Phone Sebastien Sequeira MD Primary Care Provider [phone] Encounter Details Date Type Department Care Team (Late st Contact Info) Description 08/22/2021 [facility] Only [facility] [address], [facility] [address] [place] [address] Gustavo So MD [address] [place], [place] [id number] Social History Tobacco Use Types Packs/Day Years [...] COVID-19? No / Unsure 08/01/2021 2:36 PM CUSTOMER ENGINEER documented as of this encounter Functional Status [...] Results * XR SHOULDER RT MIN 2V (08/28/2021 2:39 PM CUSTOMER ENGINEER) Anatomical Region Laterality Modality Shoulder Radiographic Charlotte ging 08/28/2021 3:41 PM CUSTOMER ENGINEER Impressions 08/28/2021 3:42 PM CUSTOMER ENGINEER IMPRESSION: 1) No significant radiographic abnormality. Ordered By: GUSTAVO SO Interpreted By: Harshal Marie MD, 08/28/2021 3:41 PM Narrative 08/28/2021 3:42 PM CUSTOMER ENGINEER Examination: XR SHOULDER RT MIN 2V Exam time: 08/28/2021 2:39 PM Clinical history: Right shoulder arthroplasty postop check Comparison: 08/01/2021 Technique: AP and axillary views right shoulder Findings: Reversed right shoulder arthroplasty. No evidence of convocation involving the hardware. No evidence of acute fracture. Procedure Note Harshal Marie MD - 08/28/2021 Examination: XR SHOULDER RT MIN 2V Exam time: 08/28/2021 2:39 PM Clinical history: Right shoulder arthroplasty postop check Comparison: 08/01/2021 Technique: AP and axillary views right shoulder Findings: Reversed right shoulder arthroplasty. No evidence of convocationinvolving the hardware. No evidence of acute fracture. IMPRESSION: 1) No significant radiographic abnormality. Ordered By: GUSTAVO SO Interpreted By: Harshal Marie MD, 08/28/2021 3:41 PM Gustavo So MD GENERAL IMAGING Final Result documented in this encounter Visit Diagnoses Diagnosis Aftercare- Primary Unspecified aftercare Aftercare Unspecified aftercare documented in this encounter Care Teams Spinning Machine Operator Relationship Specialty Start Date End Date Sebastien Sequeira MD [address] [place] [address] PCP - General INTERNAL MEDICINE 08/02/20 documented as of this encounter
--- OUTSIDE RECORDS SUMMARY | 2024-09-13 06:33 | XMS_ITS | Encounter Summary ---
Author Organization [facility] Address [address] [place] [address]. [place] [address] [place] [address] Care Team Providers Care Paraffin Machine Operator Name Role Phone Sebastien Sequeira MD Primary Care Provider [phone] Encounter Details Date Type Department Care Team (Late st Contact Info) Description 07/30/2021 Orders Only [facility] [place] [address], [facility] 1 [place] [address] Gustavo So MD [address] [place], [place] [id number] Social History Tobacco Use Types Packs/Day Years [...] have Coronavirus / COVID-19? No / Unsure 07/04/2021 3:53 PM CDT documented as of this encounter [...] as of this encounter Results * XR HIP MARITZA 2V (08/01/2021 2:47 PM CHEF PASSENGER VESSEL) Anatomical Region Laterality Modality Hip, Pelvis Radiographic Charlotte ging 08/01/2021 3:28 PM CHEF PASSENGER VESSEL Impressions 08/01/2021 3:29 PM CHEF PASSENGER VESSEL Impression: Stable bilateral hip arthroplasties without complication. Referred By: ?? Interpreted By: Prince Muñoz MD, 08/01/2021 3:28 PM Narrative 08/01/2021 3:29 PM CHEF PASSENGER VESSEL Date: 08/01/2021 2:47 PM Exam: XR HIP MARITZA 2V Comparison: Pelvic and right hip radiography dated 05/29/2021. Technique: Frontal view of the lower pelvis and bilateral hips. ??Lateral view of each hip. ??Images were obtained with weightbearing. History: Right hip pain. ??Hip arthroplasty 6 months ago. Findings: There are bilateral hip arthroplasties in good position. ??There is no periprosthetic fracture of either arthroplasty. ??The pubic rami appear intact. ??There is no soft tissue abnormality. Procedure Note Prince Muñoz MD - 08/01/2021 Date: 08/01/2021 2:47 PM Exam: XR HIP MARITZA 2V Comparison: Pelvic and right hip radiography dated 05/29/2021. Technique: Frontal view of the lower pelvis and bilateral hips. Lateralview of each hip. Images were obtained with weightbearing. History: Right hip pain. Hip arthroplasty 6 months ago. Findings: There are bilateral hip arthroplasties in good position. Thereis no periprosthetic fracture of either arthroplasty. The pubic ramiappear intact. There is no soft tissue abnormality. Impression: Stable bilateral hip arthroplasties without complication. Referred By: Interpreted By: Prince Muñoz MD, 08/01/2021 3:28 PM Gustavo So MD GENERAL IMAGING Final Result * XR SHOULDER RT MIN 2V (08/01/2021 2:47 PM CHEF PASSENGER VESSEL) Anatomical Region Laterality Modality Shoulder Radiographic Charlotte ging 08/01/2021 3:27 PM CHEF PASSENGER VESSEL Impressions 08/01/2021 3:28 PM CHEF PASSENGER VESSEL Impression: Stable appearance of the reverse right shoulder arthroplasty without gross complication. Referred By: ?? Interpreted By: Prince Muñoz MD, 08/01/2021 3:27 PM Narrative 08/01/2021 3:28 PM CHEF PASSENGER VESSEL Date: 08/01/2021 2:47 PM Exam: XR SHOULDER RT MIN 2V Comparison: Right shoulder radiography dated 07/04/2021. Technique: 3 views of the right shoulder. History: Follow-up right shoulder arthroplasty. Findings: There is a reverse right shoulder arthroplasty stable in position. ??There is no periprosthetic fracture. ??There is a stable small calcification projecting at the axillary pouch. ??The right clavicle is intact. ??The soft tissue skin cricket have been removed. Procedure Note Prince Muñoz MD - 08/01/2021 Date: 08/01/2021 2:47 PM Exam: XR SHOULDER RT MIN 2V Comparison: Right shoulder radiography dated 07/04/2021. Technique: 3 views of the right shoulder. History: Follow-up right shoulder arthroplasty. Findings: There is a reverse right shoulder arthroplasty stable inposition. There is no periprosthetic fracture. There is a stable smallcalcification projecting at the axillary pouch. The right clavicle isintact. The soft tissue skin cricket have been removed. Impression: Stable appearance of the reverse right shoulder arthroplastywithout gross complication. 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
--- OUTSIDE RECORDS SUMMARY | 2024-09-13 06:33 | XMS_ITS | Encounter Summary ---
Author Organization [facility] Address [facility] [place] [address] [place] [address] Care Team Providers Care Leather Currier Name Role Phone Stella Obrien MD Primary Care Provider [phone] Reason for Referral * (Routine) - Canceled Specialty Diagnoses / Procedures Referred By Contac t Referred To Contact Procedures Rehab consult (OT) to evaluate and treat Gustavo Salmeron MD [address] [place] [id number] Phone: tel: fax: Referral ID Status Reason Start Date Expiration Date V isits Requested Visits Authorized [id number] Canceled 06/24/2021 07/25/2022 1 1 * (Routine) - Canceled Specialty Diagnoses / Procedures Referred By Contac t Referred To Contact Procedures Rehab consult (PT) to evaluate and treat Gustavo Salmeron MD [address] [place] [id number] Phone: tel: fax: Referral ID Status Reason Start Date Expiration Date V isits Requested Visits Authorized [id number] Canceled 06/24/2021 07/25/2022 1 1 Reason for Visit * Auth/Cert Specialty Diagnoses / Procedures Referred By Aaron rai Referred To Contact Diagnoses M75.100, M12.819 Procedures RECONSTR TOTAL SHOULDER IMPLANT RIGHT Reverse Total Shoulder Arthroplasty; James notified; Outpatient Status; Cardiac Clearance per Dr. Schmitz Referral ID Status Reason Start Date Expiration Date Visits Re quested Visits Authorized [id number] 1 1 Encounter Details Date Type Department Care Team (Latest Contact Info) Description 06/24/2021 6:26 AM CDT - 06/25/2021 3:52 PM CDT Hospital Encounter [facility] [address] [facility] [address] Gustavo Salmeron MD [address] [place] [address] Discharge Disposition: Home or Self [...] Sign Reading Time Taken Comments Blood Pressure 129/62 06/25/2021 1:00 PM CDT Pulse 94 06/25/2021 1:00 PM CDT Temperature 36.6 ??C (97.9 ??F) 06/25/2021 1:00 PM CD T Respiratory Rate 20 06/25/2021 1:00 PM CDT Oxygen Saturation 96% 06/25/2021 1:00 PM CDT Inhaled Oxygen Concentration - - Weight 135.2 kg (298 lb) 06/24/2021 11:00 AM CDT Height 177.8 cm (5' 10 ) 06/24/2021 11:00 AM CDT Body Mass Index 42.76 06/24/2021 11:00 AM CDT documented in this encounter Functional Status * Question Answer Date of Assessment Author Status Do you have serious difficulty walking or climbing stairs? No 06/24/2021 11:17 AM CANDELARIOT Man Degroot RN Active * Question Answer Date of Assessment Author Status Do you have difficulty dressing or bathing? No 06/24/2021 11:17 AM CANDELARIOT Taryn Degroot RN Active Because of a physical, mental, or emotional condition, do you have difficulty doing errands alone such as visiting a doctor's office or shopping? No 06/24/2021 11:17 AM CANDELARIOT Man Degroot RN Active * RETIRED Are you deaf or do [...] Author Status No 06/24/2021 11:17 AM CDT Vnaia Degroot RN Active * Do you have [...] difficulty concentrating, remembering, or making decisions? No 06/24/2021 11:17 AM CANDELARIOT Kaya Degroot RN Active * Because of a physical, mental, or emotional condition, do you have serious difficulty concentrating, remembering, or making decisions? Answer Entry Date Author Status No 06/24/2021 11:17 AM CANDELARIOT Vania Degroot RN Active documented in this encounter Discharge Summaries * Gustavo Salmeron MD - 06/25/2021 3:52 PM CDT Physician Discharge Summary Patient ID: Gilma Mills [id number] 71-year-old 1950 Primary Care Physician: STELLA OBRIEN MD Admit date: 06/24/2021 Expected Discharge Date: 06/25/2021 Admitting Physician: Gustavo Salmeron MD Discharge Physician: Admission Diagnoses: M75.100, M12.819 Discharge Diagnoses: Same Admission Condition: good Discharged Condition: fair Indication for Admission: Right reverse total shoulder arthroplasty Hospital Course: Patient is a 71-year-old female who underwent elective right shoulder replacement.Postoperatively she was admitted with routine infection prophylaxis and was mobilized with therapy.She struggled a bit with pain control but was doing better later in the afternoon after therapy hadworked with her and she had demonstrated functional independence. She was subsequently discharged ho ri with arrangements made for physical therapy as well as for follow-up in the office. A prescription for pain medication was provided and I recommended an aspirin twice a day for DVT prophylaxis. Consults: none Code Status: Prior Procedures: Procedures (From admission, onward) HEMOGLOBIN AND HEMATOCRIT Routine Referrals: No orders of the defined types were placed in this encounter. Significant Diagnostic Studies: Treatments: surgery: Right reverse total shoulder arthroplasty Discharge Exam: Patient is neurovascularly intact. She has a eduardo negative pressure wound dressing on the right shoulder Disposition: Home or Self Care (Routine Discharge) Patient Instructions: Discharge Medication List as of 06/25/2021 3:31 PM START taking these medications Details aspirin EC 81 MG tablet Take 1 tablet (81 mg total) by mouth 2 (two) times daily with meals for 14 days., Starting Thu06/25/2021, Until Thu07/09/2021, OTC HYDROcodone-acetaminophen 5-325 MG tablet Take 1-2 tablets by mouth every 4 (four) hours as needed for Pain. Indications: Acute Pain < 7 Day Supply, Starting Thu06/25/2021, Eprescribe CONTINUE these medications which have NOT CHANGED Details busPIRone 15 MG tablet Take 1 tablet by mouth daily as needed. , Starting Thu11/26/2020, HistoricalMed cyclobenzaprine 10 MG tablet Take 10 mg by mouth 2 (two) times daily as needed., Starting 02/10/2021, Historical Med EUTHYROX 125 MCG tablet Take 125 mcg by mouth daily., Starting Thu07/15/2020, Historical Med ezetimibe 10 MG tablet Take 10 mg by mouth daily., Starting Thu06/18/2020, Historical Med furosemide 20 MG tablet Take 1 tablet by mouth as needed. , Starting Thu01/14/2020, Historical Med nortriptyline 25 MG capsule Take 1 capsule by mouth nightly at bedtime., Starting Thu11/15/2013, Historical Med pantoprazole EC 40 MG tablet Take 40 mg by mouth daily., Starting Thu06/29/2020, Historical Med pregabalin 200 MG capsule Take 200 mg by mouth 2 (two) times daily., Starting Thu12/26/2020, Historical Med propranolol LA 160 MG 24 hr capsule Take 160 mg by mouth daily., Starting Thu05/11/2020, HistoricalMed rOPINIRole 2 MG tablet Take 2 tablets by mouth nightly at bedtime., Starting Thu01/20/2020, Historical Med rosuvastatin 20 MG tablet Take 20 mg by mouth nightly at bedtime. at bedtime., Starting Thu10/18/2020, Historical Med spironolactone 100 MG tablet Take 1 tablet by mouth daily., Starting Thu01/20/2020, Historical Med traMADol 50 MG tablet Take 50 mg by mouth every 4 (four) hours as needed., Starting Thu01/11/2021, Historical Med venlafaxine XR 150 MG 24 hr capsule Take 1 capsule by mouth daily., Starting Thu05/24/2020, Historical Med Activity: activity as tolerated Diet: regular diet Wound Care: as directed Follow-up with Dr. Salmeron in 10-14 days. Signed: GUSTAVO SALMERON MD 06/26/2021 11:50 AM documented in this encounter Discharge Instructions * Attachments The following attachments cannot be sent through Care Everywhere. * Shoulder Replacement Discharge Instructions (Citizen Of [place]) documented in this encounter Medications at Time [...] 01/11/2021 2 documented as of this encounter Progress Notes * Radha Ackerman PTA - 06/25/2021 3:45 PM CDT 06/25/21 1340 Therapy Visit Ordering Provider Dr. Salmeron Subjective Pt sitting in chair upon entry and agrees to therapy. Pt rates her pain a 4 in right shoulder pre treatment. Reason for admission S/P rTSA Relevant Comorbidities/ Personal Factors to PT Rotator cuff arthropathy R ramses Verified Two Patient Identifiers Yes Patient consents to therapy Yes Acute Inpatient PT Time Calculation PT Start Time 1340 PT Stop Time 1414 PT Time Calculation (min) 34 min Precautions Other No pushing/pulling with R UE Pain Pain Yes Pain Score 4 Location R shoulder Activity Tolerance Endurance Tolerates 30 min activity with rests TRANSFERS Sit to Stand SBA/supervision Bed to Chair SBA/supervision Gait Gait Assistance SBA/supervision Assistive Device Cane Distance Ambulated (ft) 100 ft Balance Sitting - Static Modified independence;Support of one upper extremity Sitting - Dynamic Modified independence Standing - Static Modified independence;Support of one upper extremity Standing - Dynamic SBA;Support of one upper extremity PT Assessment PT Assessment Pt able to increase ambulation distance with straight cane to improve her stability without LOB noted and with SBA. Pt then reviewed and completed her HEP which consisted of pendulum, table slide into flexion, table slide into scaption, table circles CW/CCW, and elbow flexion. Pt notes an increase in pain post treatment. Pt positioned in chair with ice to right shoulder with call light and phone within reach. Nurse notified that patient is good for discharge and will begin outpatient therapy after her follow with Dr. Salmeron. Recommendation PT Recommendation Outpatient PT PT Equipment Recommended Straight cane Plan PT Treatments/Interventions Therapeutic Exercises;Therapeutic Activities;Gait Training;Neuromuscular re-education Progress Discontinue PT End of Session End of Session Safety Call light within reach * Kaya Degroot RN - 06/25/2021 3:28 PM CDT Dc today * Evelyn Torres - 06/25/2021 1:59 PM CDT SW updated POLST form and Health Care POA with patient. * Radha Ackerman PTA - 06/25/2021 12:02 PM CDT 06/25/21 0847 Therapy Visit Ordering Provider Dr. Salmeron Subjective Pt in bed upon arrival trying to eat her breakfast. Pt agrees to therapy and rates her pain a 7 in right shoulder pre treatment. Reason for admission S/P rTSA Relevant Comorbidities/ Personal Factors to PT Rotator cuff arthropathy R ramses Verified Two Patient Identifiers Yes Patient consents to therapy Yes Acute Inpatient PT Time Calculation PT Start Time 0846 PT Stop Time 0912 PT Time Calculation (min) 26 min Precautions Other No pushing/pulling with R UE Pain Pain Yes Pain Score 7 Location R shoulder Activity Tolerance Endurance Tolerates 20 - 30 min activity with rests Bed Mobility Supine to Sit SBA/supervision TRANSFERS Sit to Stand SBA/supervision Bed to Chair SBA/supervision Gait Gait Assistance Contact guard assist Distance Ambulated (ft) 35 ft Balance Sitting - Static Modified independence;Support of one upper extremity Sitting - Dynamic Modified independence Standing - Static Modified independence;Support of one upper extremity Standing - Dynamic SBA;Support of one upper extremity PT Assessment PT Assessment Pt ambulated to and from restroom with one hand held assist from therapist without LOB noted. Pt just unsure with it being her first time up. Pt able to ambulate back to chair without assistance. Pt demostrated no LOB during all balancing activities while bathing and was able to use RUE for her ADL's. Pt positioned in chair with legs elevated and ice placed on right shoulder. Call l ight and phone within reach. Recommendation PT Recommendation Outpatient PT Plan PT Treatments/Interventions Therapeutic Exercises;Therapeutic Activities;Gait Training;Neuromuscular re-education Progress Progressing toward goals PT Frequency BID End of Session End of Session Safety Call light within reach * JL Knutson - 06/25/2021 12:00 PM CDT 06/25/21 08 Therapy Visit Reason for admission S/P rTSA Ordering Provider Dr. Salmeron Verified Two Patient Identifiers Yes Patient consents to therapy Yes Acute Inpatient OT Time Calculation OT Start Time 845 OT Stop Time 911 OT Time Calculation (min) 26 min Subjective Subjective Pt supine in bed and eating breakfast but agreeable to treatment. Pain Pain Yes Pain Score 7 Location Rotator Cuff RIght Objective Objective Pt seen during skilled OT with focus on transfers,toileting,sponge bathing,UB/LB dressing. ADL Bathing Assistance Stand by UE Dressing Assistance Stand by LE Dressing Assistance Stand by Toileting Assistance Stand by Bed Mobility Supine to Sit Modified independence Functional Transfers Sit to Stand SBA/supervision Bed to Chair SBA/supervision Toilet Transfers Supervision Recommendation OT Recommendation Outpatient PT Plan OT Treatment/Intervention Self-care training;Therapeutic activities;Functional activity Progress Progressing toward goals End of Session End of Session Safety Call light within reach * Nura Bey MD - 06/25/2021 11:02 AM CDT S/P ISB and GA for TSA. Patient denies recall of surgical events, back pain, sore throat, headaches, nausea, hoarse voice, blurred vision, or SOB post op. Pt pain has been minimal throughout the postop course up until 5AM this morning when the ISB subsided. This has been improved with oral pain meds. Doing well s/p ISB and GA without obvious anesthetic complications. * Evelyn Torres - 06/25/2021 8:51 AM CDT Patient lives at home with her . Patient lives in a single story home with a ramp to get into the home. Patient has a cane and walker at home. She usually uses a cane just for stability. Patient is independent at home. Her does the cooking and dishes. She does the cleaning. Patient has a walk in shower. She will return home at discharge. Her will transport. She will do outpatient therapy at [facility]. She has no other discharge needs at this time. She would like to update her POLST and Health Care POA. SW will come back in later this morning to update those withher. SW will continue to follow. 06/25/21 0850 Referral Data Referral Reason Discharge Planning Source of Information Patient Patient Information OB Patient < 19 yrs old No Primary Caregiver Self Support System Immediate family Baseline ADL's Functional Status Independent Living Arrangements Spouse/significant other Type of Residence Private residence Ambulation Assistance No Active DME Cane;Front wheel walker Bathing/Grooming Assistance No Dressing Assistance No Behavior Oriented;Cooperative Communication Talks;Understands speaking;Understands Citizen Of [place] Socioeconomic Needs Caregiver Needed No At Risk of Abuse or Neglect No Adequate Resources Yes Psychological Needs: Mental health concerns No Suspected Drug or Alcohol Abuse No Inappropriate Patient/Family Behaviors No Difficult Adjustment to Diagnosis No Recent Hospitalization Recent Hospitalization within 30 days No Anticipated Discharge Needs Change in Living Arrangements No In-Home Care or Equipment No Vocational and/or Role Loss No Inability to Complete ADL's No Anticipated DC Plan Living Arrangements Spouse/significant other Support Systems Spouse/significant other Type of Residence Private residence Assistance Needed No Patient expects to be discharged to: Home * Adele Garcia, ANALYSIS MANAGER-BC - 06/25/2021 8:01 AM CDT Daily Progress Note Patient: Gilma Mills is a 71-year-old female : 1950 Surgery date: 06/24/2021 Procedure: RIGHT Reverse Total Shoulder Arthroplasty: 07404 (CPT??) SUBJECTIVE She reports she is in a lot of pain this morning. She reports that she has not had any pain medication this morning. She denies any numbness or tingling. OBJECTIVE Vital signs in the last 24 hours: Temp: [96.2 ??F (35.7 ??C)-98.7 ??F (37.1 ??C)] 98.7 ??F (37.1 ??C) Pulse: [75-99] 94 Resp: [18-20] 20 BP: (112-156)/(43-93) 149/43 Intake/Output last 3 shifts: I/O last 3 completed shifts: In: 2386.5 [P.O.:950; I.V.:1269.9; IV Piggyback:166.7] Out: 3830 [Urine:3380; Blood:450] Intake/Output this shift: No intake/output data recorded. Examination: Constitutional: Alert and in no acute distress. Neurological: The patient was oriented to person, place, and time. EXAM of RIGHT shoulder today reveals EDUARDO dressing intact with no drainage present on outer dressing, signs of muscle firing, weak elbow range of motion, palpable radial pulse. Labs and Cultures: Recent Results (from the past 24 hour(s)) HEMOGLOBIN AND HEMATOCRIT Collection Time: 06/25/21 5:02 AM Result Value Ref Range HGB 9.5 (L) 12.0 - 16.0 G/DL HCT 31.9 (L) 36.0 - 47.0 % Imaging: Results for the past 24 hours No results found. ASSESSMENT Patient Active Problem List Diagnosis ??? Obstructive sleep apnea ??? Post-nasal drip ??? Restless legs syndrome ??? Hypertension ??? Fibromyalgia ??? Daytime hypersomnia ??? Arthritis ??? Primary osteoarthritis of left hip ??? Status post right hip replacement ??? Primary osteoarthritis of right hip ??? Radiculopathy, lumbar region ??? Rotator cuff arthropathy of right shoulder PLAN: Patient is struggling with pain control this morning but had not had any pain medication at this time. We will see how she does with therapy and obtaining better pain control this morning and reevaluate this afternoon with possibility of discharging home tonight. I will go ahead and set her up for physical therapy in [place] for discharge outpatient therapy. Signed MUKESH FRANK 06/25/2021 Cosigned by Gustavo Salmeron MD at 06/25/2021 2:07 PM CDT * Amy Miranda RN - 06/25/2021 4:45 AM CDT Problem: Mobility Goal: STG - Pt will ambulate Description: 150' with independence for home mobility Outcome: Progressing Problem: Transfers Goal: STG - Pt will perform sit to stand Description: With independence Outcome: Progressing Problem: Activity Tolerance Goal: STG - Pt will maintain SPO2 greater than 90% while participating in Description: Mobility activity Outcome: Progressing Goal: STG - Pt will demonstrate understanding and compliance of HEP Outcome: Progressing Problem: Bathing Goal: STG - Pt will bathe body by alternating sit/stand with Description: independence Outcome: Progressing Problem: Dressing: Upper Extremities Goal: STG - Pt will complete upper body dressing with Description: independence Outcome: Progressing Problem: Transfers Goal: STG - Pt will perform a toilet transfer with Description: independence Outcome: Progressing * Kathi Gonzalez OT - 06/24/2021 3:38 PM CDT [facility] Occupational Therapy Inpatient Evaluation Time In: 1354 Time Out: 1410 Total Evaluation Time: 16 minutes Ordering Physician: Painter LICONA Patient: Gilma Mills Location: / Diagnosis: M75.100, M12.819 Past Medical History: Diagnosis Date ??? Acid [...] Right 11/19/2020 ??? TOTAL KNEE ARTHROPLASTY Bilateral SUBJECTIVE: Pain: denied having pain, lack of sensation from recent surgery Pt reporting that she is beginning to have some sensation in her R UE but not feel pain yet. Prior Level of Function: ADLs: Bathing: Independent Toileting: Independent UB Dressing: Independent LB Dressing: Independent Feeding: Independent Grooming: Independent ?? IADLs: Meal Preparation: Family Assist Cleaning: Family Assist Laundry: Family Assist Working/Volunteering: No Driving: Yes Care of Others: No ?? Functional Mobility & Transfers: Bed Mobility: Independent Toilet Transfers: Independent Tub/Shower Transfers: Independent Patient has been completing functional mobility with single point cane or 2 wheeled walker. ?? Home Environment: House Levels: 1 Entrance: ramp Bathroom is equipped with walk in shower with threshold, standard toilet, there is a seat for the bathroom. Living arrangements - The patient lives with their spouse. OBJECTIVE: Observation: Pt was supine in bed upon OTR arrival. Orientation Level: x 4 Cognition: follows 1 step commands 100% of the time, fair safety awareness and insight Affect: alert, cooperative Vision: wfl; glasses all the time Hearing: wfl Precautions/Restrictions: IV Avalos catheter Vitals Hand Dominance: right Upper Extremity R L Coordination NT Intact serial opposition Sensation NT Denies any new changes ROM NT WFL Real Estate Executive Assistant Strength 4//5 5/5 Shoulder flexion nt/5 4+/5 Elbow flexion nt/5 4/5 Elbow extension nt/5 4/5 Comments: Demonstrating fair L UE strength through functional mobility. ADLs: Feeding: Not Performed this Date Toileting: Total Assistance - avalos catheter UB Dressing: Not Performed this Date LB Dressing: Not Performed this Date Grooming: Not Performed this Date Bathing: Not Performed this Date Transfers: Bed mobility/rolling: Not Performed this Date Supine <> sit: Min A of 2 Sit <> stand: Not Performed this Date Stand-pivot: Not Performed this Date Toilet/chair transfer: Not Performed this Date Functional Mobility: No weight bearing activities performed this session Assistive Device utilized during transfers: none Activity performed this session: Evaluation only this date. Education: Pt educated about purpose and benefit of participation in occupational therapy. ASSESSMENT: Gilma Mills is a 71-year-old female who presents with a primary complaint of M75.100, M12.819. Priorto admission, pt was independent with self care and functional mobilty. Pt is currently demonstrating decreased ability to complete ADLs and functional mobility secondary to decrease activity tolerance in standing or sitting, decrease strength, and decreas fine motor coordination . Pt will benefit from participation in skilled OT services to improve independence in ADLs and functional mobility inorder to return home safely Recommended Interventions: Therapeutic Activity, Therapeutic Exercise and Self- Care Training Rehab Potential: Fair Occupational Profile and History Complexity: Moderate (Expanded) Performance Skills Deficits: Low Performance Deficit Level: Low Clinical Decision Making: Low Evaluation Complexity Level: Low OT PLAN: Frequency: 1-2x/Day, 5 day a week Duration: 1 week Plan for next session: ADL and transfer training Anticipated Discharge at this time: Home with Assist Equipment Recommendations: No new equipment at this time Safety at conclusion of Treatment: Upon OTR departure, pt supine in bed, call light within reach, and all needs met. * Dominique Sultana HIV CTS SPECIALIST - 06/24/2021 2:53 PM CDT 06/24/21 1354 Therapy Visit Ordering Provider Dr. Salmeron Subjective Patient is reclined in the bed upon arrival. Patient states she is doing alright this afternoon. No new complaints this visit. Reason for admission S/P rTSA Relevant Comorbidities/ Personal Factors to PT Rotator cuff arthropathy R ramses Verified Two Patient Identifiers Yes Patient consents to therapy Yes Acute Inpatient PT Time Calculation PT Start Time 1354 PT Stop Time 1410 PT Time Calculation (min) 16 min Pain Pain No Activity Tolerance Endurance Tolerates 10 - 20 min activity with rests Endurance Quality Fair Limiting Factors to Endurance Fatigue Cognition Overall Cognitive Status WFL Bed Mobility Supine to Sit Min assist to left;Assist of 2 Balance Sitting - Static Modified independence;Support of one upper extremity PT Assessment PT Assessment Patient is able to get to EOB with min. A x2. Good static sitting balance. Patient isable to maintain seated position a few minutes before needing to lie down again due to incr fatigueand some dizziness. Recommendation PT Recommendation Outpatient PT PT Equipment Recommended To Be Determined Plan PT Treatments/Interventions Therapeutic Exercises;Therapeutic Activities;Gait Training;Neuromuscular re-education Progress Progressing toward goals PT Frequency BID End of Session End of Session Safety Call light within reach * See Butler, PT - 06/24/2021 2:04 PM CDT [facility] Physical Therapy Inpatient Evaluation Time In: 1130 Time Out: 1145 Gilma Lina 324/01 M75.100, M12.819 Past Medical History: Diagnosis Date ??? Acid [...] Right 11/19/2020 ??? TOTAL KNEE ARTHROPLASTY Bilateral Subjective: Orientation: x 4 Pain: 0/10 Pain Location: Denies pain, arm is numb Patient reports that she is feeling pretty good. She has an appetite. Home Environment: House Entrance: Threshold with No handrail. Living arrangements - The patient lives with their spouse. Patient has been ambulatory with independence Objective: Patient was in bed upon pt arrival. Observation:Patient sitting up in bed, pleasant and cooperative. WAREHOUSE HELPER in room monitoring vitals Precautions/Restrictions: IV Avalos Catheter LE STRENGTH Left Right Hip flexion 4+/5 4+/5 Knee extension 5/5 5/5 Knee flexion 5/5 5/5 Dorsiflexion 5/5 5/5 Transfers: Bed mobility/rolling: CGA Supine to sit: Min A x 1 Sit to stand: Not Performed this Date Pivot: Not Performed this Date Ambulation: Not performed this date Activity performed this session: Evaluation only this date. Assessment: Gilma Mills is a 71-year-old female who presents with a primary complaint of M75.100, M12.819. Patient is demonstrating deficits in Strength, Mobility and Transfers leading to decreased safety, inability to perform home mobility and inability to perform self care. Skilled therapy is appropriate at this time to address these impairments and to move the patient towards their goal of returning home with independence. Recommended Interventions: Therapeutic Activity, Therapeutic Exercise, Gait Training and Self-Care Training Rehab Potential: Good Personal Factors/Co-Morbidities Affecting Care: 3-4+ Examination of Body Systems: Low (1-2) Clinical Presentation of Patient: Stable Uncomplicated Eval Complexity: Low PT Plan: Frequency: BID and Daily on Thursday Duration: 1 week Anticipated Discharge at this time: Home Plan for next session: Ambulate and transfer from bed Safety at conclusion of Treatment: Patient in Bed and Call Light in Reach documented in this encounter H&P Notes * Gustavo Salmeron MD - 06/24/2021 7:23 AM CDT HISTORY AND PHYSICAL INTERVAL NOTE: [...] during recuperation were discussed with the patient/family/personal contact representative. Reasonable alternatives to the patient's proposed procedure/surgery including benefits, risks, and side effects related to the alternatives and the risks related to not receiving the proposed care were also discussed with the patient/family/personal contact representative. Questions were answered and the patient/family/personal contact representative verbalized understanding and desires to proceed. Source Note - Gustavo Salmeron MD - 05/29/2021 2:00 PM CDT Chief Complaint: Shoulder Pain (Osteoarthritis of glenohumeral joint, right) History of Present Illness: Gilma Mills is a 71-year-old female who presents to the office for Shoulder Pain (Osteoarthritis of glenohumeral joint, right) Patient returns to clinic for the complaint of RIGHT Shoulder pain using a cane. She denies any injury and reports that pain has been present for many years. History of RIGHT Rotator Cuff Repair in 2000. She locates pain to her entire RIGHT shoulder with occasional radiation down to her RIGHT hand. History of numbness and tingling to all fingers. Nightly pain. History of injection on 02/19/2021 with 5-6 weeks of relief. No history of physical therapy for her RIGHT shoulder. She is RIGHT hand dominant. Patient struggles with dressing, pulling, reaching, lifting, overhead, and putting on her seatbelt. Patient is also complaining of RIGHT hip pain. History of RIGHT Total Hip Arthroplasty on 11/19/2020. ROS: See HPI for pertinent positives Problem List: Patient Active Problem List Diagnosis ??? Obstructive sleep apnea ??? Post-nasal drip ??? Restless legs syndrome ??? Hypertension ??? Fibromyalgia ??? Daytime hypersomnia ??? Arthritis ??? Primary osteoarthritis of left hip ??? Status post right hip replacement ??? Primary osteoarthritis of right hip ??? Radiculopathy, lumbar region History: Past Medical History: Diagnosis Date ??? [...] ??? HYSTERECTOMY ??? JOINT REPLACEMENT Bilateral ??? RELEASE HAND/FINGER TENDON Left ??? TOTAL HIP ARTHROPLASTY Left 08/13/2020 ??? TOTAL HIP ARTHROPLASTY Right 11/19/2020 ??? TOTAL KNEE ARTHROPLASTY Bilateral Family History Problem Relation Name Age of Onset ??? Cancer Mother ??? COPD Father ??? Cancer Sister ??? Other (histoplasmosi) Brother ??? No Known Problems Sister ??? Multiple Sclerosis Sister Social History Tobacco Use ??? Smoking status: Never Smoker ??? Smokeless tobacco: Never Used Substance Use Topics ??? Alcohol use: Not Currently ??? Drug [...] mouth daily., Disp: , Rfl: ??? furosemide 40 MG tablet, Take 1 tablet by mouth as needed., Disp: , Rfl: [...] (see comment) hypotension ??? Statins Rash Objective: Filed Vitals: 05/29/21 1401 Weight: 131.5 kg (290 lb) Height: 5' 10 (1.778 m) Body mass index is 41.61 kg/m??. Physical Exam: Constitutional: Alert and in no acute distress. Neurological: The patient was oriented to person, place, and time. Eyes: The sclera and conjunctiva were normal ENT: Hearing was normal. Neck: The appearance of the neck was normal. Cardiovascular: Normal pulses. Pulmonary: No respiratory distress. Skin: No injuries or skin lesions. Musculoskeletal: Right shoulder exam demonstrates pretty good abduction and she externally rotates about 80 degrees but can only get to her lateral beltline with internal rotation. Weakness is present with resisted abduction. She reports no current sensory disturbance and distal pulses are palpable. Right hip exam demonstrates satisfactory range of motion and she does have mild groin discomfort with flexion against gravity Results: Right shoulder x-ray demonstrates severe glenohumeral degenerative changes with loss of joint space. No high riding. Right hip x-rays demonstrate well-positioned implants with no loosening or subsidence Assessment: Encounter Diagnose(s) ICD-10-CM ICD-9-CM SNOMED CT(R) 1. History of total right hip arthroplasty Z96.641 V43.64 HISTORY OF TOTAL REPLACEMENT OF RIGHT HIPJOINT XR PELVIS AP+RT HIP 1V 2. Rotator cuff tear arthropathy, unspecified laterality M75.100 716.81 ROTATOR CUFF TEAR ARTHROPATHY M12.819 Plan: Patient's hip x-rays look good. She has had 3 days of discomfort that makes it difficult to walk and this most likely is related to muscle strain. I expect her to get better as time goes by. The right shoulder though has end-stage glenohumeral osteoarthritis with rotator cuff arthropathy as she hashad previous cuff repair. I recommended reverse shoulder replacement and have reviewed risks and benefits. She elects to proceed Patient Education: The planned procedure/s, the expected benefits,the associated risks, possible complications, and alternatives to the procedure/s have been discussed in detail with the patient or family. They state that they understand, have no further questions and agree to proceed with the procedure/s as outlined. Procedure/Surgery: 06/24/2021 RIGHT Reverse Total Shoulder Arthroplasty Follow up: Return for Post-Op. GUSTAVO SALMERON MD documented in this encounter OR Notes * Op Note - Gustavo Salmeron MD - 06/24/2021 9:53 AM CDT Gilma Mills 1950 06/24/2021 [id number] Preop diagnosis: right shoulder rotator cuff arthropathy. Postop diagnosis: Same Procedure Description: right reverse total shoulder arthroplasty using a DePuy delta extend 12mm stem with a size 1 eccentric body and a 38 mm +2 glenosphere with a +9 metal spacer with a + 3 polyethylene spacer Surgeon:GUSTAVO SALMERON MD Anesthesia: General Indication: Patient is a 71-year-old female who has a history of right shoulder pain and disabilitysecondary to rotator cuff tear arthropathy. She has failed to see relief with conservative measuresand presents for the above procedure after reviewing risks and benefits Procedure: After regional block was performed in the holding area the patient was brought to the operating room where the patient was positioned in a supine fashion and general anesthesia administered. Antibiotics and tranexamic acid were given intravenously. The patient was then positioned in a semisitting position using the beachchair and the appropriate shoulder prepped and draped in usual sterile fashion. The anatomy was marked and a deltopectoral incision was made identifying the cephalic vein and retracting it in the medial direction. The deltoid was retracted and the deltopectoral fascia incised also removing bursal tissues to expose the humeral head. The damaged superior rotator cuff was appreciated and cautery was used to resect the damaged tissue exposing the superior aspect of the humerus. The awl was then used to penetrate the humeral head accessing the intramedullary canal and we reamed up to good cortical bone contact and the resection guide was positioned and the humeral head resected in approximately 10 degrees of retroversion. The head protector was positioned and aretractor inserted to expose the glenoid. The labrum was resected using electrocautery and a guidepin inserted into the appropriate position in the glenoid. We then reamed the glenoid to contour it to the [place] component. The guidepin was overdrilled and we then impacted the metaglen and drilledthe 4 holes. Screws were subsequently inserted obtaining satisfactory purchase. We then turned our attention to the proximal humerus and the reamer guide was inserted in approximately 10 degrees of retroversion. We then reamed by hand using the proximal body reamer.. We then used the humeral head to guide the glenosphere into position and screwed it down impacting the screwdriver. We then impacted the trial humeral stem and trialed spacers. The trial components were then removed. We then impacted the final humeral component. We again trialed spacers and then impacted a polyethylene spacer with appropriate thickness and reduced the shoulder demonstrating very good stability. The wound was copiously irrigated and we then irrigated with Vashe solution. 2-0 Vicryl was then used to close subcutaneous tissue and skin cricket completed the skin closure. Sterile dressings were applied and the drapes withdrawn. The dressings were made occlusive using Medipore tape. General anesthesia was discontinued the patient was transferred to the stretcher and subsequently to the PACU in good condition. Estimated blood loss was 450 cc and sponge needle counts were correct x2 following the procedure. * Brief Op Note - Gustavo Salmeron MD - 06/24/2021 9:40 AM CDT HS Brief Op [facility] Reverse Total Shoulder Arthroplasty Procedure Note Gilma Mills 06/24/2021 0730 Procedure(s) (LRB): RIGHT Reverse Total Shoulder Arthroplasty (Right) Surgeon(s): Gustavo Salmeron MD Hot Box Checker: Black Jack Dealer: DELICIA Gresham Anesthesia: General/Block Pre-Op Diagnosis: M75.100, M12.819 Post-Op Diagnosis: Same Findings: Estimated Blood Loss: 450 Specimens: None GUSTAVO SALMERON MD Date: 06/24/2021 Time: 9:40 AM documented in this encounter Plan of Treatment [...] Procedure Name Priority Date/Time Associated Diagnosis Comments HEMOGLOBIN AND HEMATOCRIT Routine 06/25/2021 5:02 AM CDT RECONSTR TOTAL SHOULDER IMPLANT 06/24/2021 7:25 AM CDT M75.100, M12.819 Case Notes VACCINATED documented in this encounter Results * (ABNORMAL) HEMOGLOBIN AND HEMATOCRIT (06/25/2021 5:02 AM CDT) HGB 9.5(L) 12.0 - 16.0 G/DL 06/25/2021 5:44 AM CDT [facility] HCT 31.9(L) 36.0 - 47.0 % 06/25/2021 5:44 AM CDT [facility] 06/25/2021 5:02 AM CDT us Gustavo Salmeron MD LABORATORY Final Result [facility] [address] [place] [address], documented in this encounter Visit Diagnoses Diagnosis Status post reverse arthroplasty of right shoulder- Primary Status post reverse arthroplasty of right shoulder Rotator cuff arthropathy of right shoulder Rotator cuff arthropathy of right shoulder documented in this encounter Administered Medications Inactive Administered Medications - up to 3 most recent administrations Medication Order MAR Action Action Date Dose Rate Site acetaminophen (TYLENOL) 500 MG tablet 1 dose, Starting on Thu06/24/21 at 0609, Until Thu06/24/21 at 0656, Created by cabinet override acetaminophen (TYLENOL) tablet 1,000 mg 1,000 mg, Oral, Once, 1 dose, On Thu06/24/21 at 0700, Maximum dose of acetaminophen is 4000 mg from all sources in 24 hours., Pre-Op Given 06/24/2021 6:56 AM CDT 1,000 mg aspirin EC (ECOTRIN) tablet 81 mg 81 mg, Oral, 2 times daily with meals, First dose on Thu06/25/21 at 0800, Until Discontinued, Start morning after surgery Do not break, chew, or crush., Post-Op Given 06/25/2021 7:49 AM CDT 81 mg ceFAZolin (ANCEF) 3 g in NS 100 mL IVPB 3 g, Intravenous, at 200 mL/hr, Every 8 hours, 2 doses, First dose on Thu06/24/21 at 1530, Last dose on Thu06/24/21 at 2330 New Bag 06/24/2021 11:01 PM CDT 3 g 200 mL/hr New Bag 06/24/2021 3:30 PM CDT 3 g 200 mL/hr chlorhexidine (PERIDEX) 0.12 % solution 15 mL 15 mL, Mouth/Throat, PRN, Prior to surgery, 1 dose, Starting on Thu06/24/21 at 0642, Until Thu06/24/21 at 0656, Patient to perform oral care first. Swish/Gargle in mouth for 30 seconds, and then discard, prior to going to surgery/ If ventilated use saturated swab to clean oral cavity., Pre-Op Given 06/24/2021 6:56 AM CDT 15 mLs docusate sodium (COLACE) capsule 100 mg 100 mg, Oral, 2 times daily, First dose on Thu06/24/21 at 1130, Until Discontinued, Post-Op Given 06/25/2021 7:50 AM CDT 100 mg Given 06/24/2021 8:16 PM CDT 100 mg HYDROcodone-acetaminophen (NORCO) 5-325 MG tablet 1 tablet 1 tablet, Oral, Every 4 hours PRN, Other, Anticipatory pain, Starting on Thu06/24/21 at 1105, Until Thu06/25/21 at 1752, Administer 30 minutes prior to physical/occupational therapy if needed for anticipatory pain, Post-Op Given 06/25/2021 11:54 AM CDT 1 tablet Given 06/25/2021 7:49 AM CDT 1 tablet lactated ringers infusion at 10 mL/hr, Intravenous, Continuous, Starting on Thu06/24/21 at 0700, Until Thu06/24/21 at 1106, Infuse at TKO rate, Pre-Op New Bag 06/24/2021 9:42 AM CDT 10 mL/hr New Bag 06/24/2021 6:55 AM CDT 1,000 mLs 10 mL/hr lactated ringers infusion at 75 mL/hr, Intravenous, Continuous, Starting on Thu06/24/21 at 1130, Until Thu06/25/21 at 0818, Post-Op New Bag 06/24/2021 8:17 PM CDT 7 5 mL/hr Rate/Dose Verify 06/24/2021 11:22 AM CDT 75 mL/ hr traMADol (ULTRAM) tablet 50 mg 50 mg, Oral, 4 times daily, First dose (after last modification) on Thu06/24/21 at 1700, Until Discontinued Given 06/25/2021 1:33 PM CDT 50 mg Given 06/25/2021 7:52 AM CDT 50 mg Given 06/24/2021 8:16 PM CDT 50 mg documented in this encounter Active and Recently Administered Medications Times are shown in CDT. Scheduled Medication Order 06/23/2021 06/24/2021 06/25/2021 acetaminophen (TYLENOL) tablet 1,000 mg (COMPLETED) 1,000 mg, Oral, Once, 1 dose, On Thu06/24/21 at 0700, Maximum dose of acetaminophen is 4000 mg from all sources in 24 hours., Pre-Op 0656 (Given - Provider: Yola Jose, PRITI) aspirin EC (ECOTRIN) tablet 81 mg(Linked Group 1) 81 mg, Oral, 2 times daily with meals, First dose on Thu06/25/21 at 0800, Until Discontinued, Start morning after surgery Do not break, chew, or crush., Post-Op 0749 (Given - Provid er: Kaya Degroot RN)1700 (Canceled Entry - Provider: Automatic Discharge Provider - Comment: Automatically canceled at discontinue of medication order) atorvastatin (LIPITOR) tablet 40 mg 40 mg, Oral, Daily, First dose on Thu06/24/21 at 1130, Until Discontinued, Sub for atorvastatin 1122 (Not Given - Provider: Kaya Degroot RN - Reason: Patient/family declined) 0753 (Not Given - Provider: Kaya Degroot RN - Reason: Patient/family declined) busPIRone (BUSPAR) tablet 15 mg 15 mg, Oral, See admin instructions, Starting on Thu06/24/21 at 1115, Until Thu06/25/21 at 1752, Take 15 mg po twice daily prn for anxiety ceFAZolin (ANCEF) 3 g in NS 100 mL IVPB (COMPLETED) 3 g, Intravenous, at 200 mL/hr, loader operator, 1 dose, On Thu06/24/21 at 0700, Give 3 gram dose for patients greater than or equal to 120 kg. Give within 60 minutes of surgical incision., Pre-Op 0752 (Given - Provider: Aki Wallis CRNA)1010 (Anesthesia Volume Adjustment - Provider: Aki Wallis CRNA) ceFAZolin (ANCEF) 3 g in NS 100 mL IVPB (COMPLETED) 3 g, Intravenous, at 200 mL/hr, Every 8 hours, 2 doses, First dose on Thu06/24/21 at 1530, Last dose on Thu06/24/21 at 2330 1530 (New Bag - Provider: Kaya Degroot RN)1600 (Infusion Stop Time - Provider: Kaya Degroot, PRITI)2301 (New Bag - Provider: Amy Miranda RN)2335 (Infusion Stop Time - Provider: Amy Miranda RN) docusate sodium (COLACE) capsule 100 mg 100 mg, Oral, 2 times daily, First dose on Thu06/24/21 at 1130, Until Discontinued, Post-Op 1121 (Not Given - Provider: Kaya Degroot RN - Reason: Patient/family declined)2015 (Given - Provider: Amy Miranda RN) 075 (Given - Provider: Kaya Degroot, PRITI) ezetimibe (ZETIA) tablet 10 mg 10 mg, Oral, Daily, First dose on Thu06/24/21 at 1300, Until Discontinued 1121 (Not Given - Provider: Kaya Degroot RN - Reason: Patient/family declined) 075 (Not Given - Provider: Kaya Degroot RN - Reason: Patient/family declined) furosemide (LASIX) tablet 20 mg 20 mg, Oral, Daily, First dose on Thu06/24/21 at 1300, Until Discontinued 1121 (Not Given - Provider: Kaya Degroot RN - Reason: Patient/family declined) 075 (Not Given - Provider: Kaya Degroot RN - Reason: Patient/family declined) levothyroxine (SYNTHROID) tablet 125 mcg 125 mcg, Oral, Daily, First dose on Thu06/25/21 at 0900, Until Discontinued, Avoid iron, calcium, and antacids within 4 hours of administration. 075 (Not Given - Provider: Kaya Degroot RN - Reason: Patient/family declined) nortriptyline (PAMELOR) capsule 25 mg 25 mg, Oral, Nightly at bedtime, First dose on Thu06/24/21 at 2100, Until Discontinued 2011 (Not Given - Provider: Amy Miranda RN - Reason: Patient/family declined) pantoprazole EC (PROTONIX) tablet 40 mg 40 mg, Oral, Daily, First dose on Thu06/25/21 at 0900, Until Discontinued, Do not break, chew, or crush. 075 (Not Given - Provider: Kaya Degroot RN - Reason: Patient/family declined) pregabalin (LYRICA) capsule 200 mg 200 mg, Oral, 2 times daily, First dose on Thu06/24/21 at 2100, Until Discontinued 2009 (Not Given - Provider: Amy Miranda RN - Reason: Patient/family declined) 0754 (Not Given - Provider: Kyaa Degroot RN - Reason: Patient/family declined) propranolol LA (INDERAL LA) 24 hr capsule 80 mg 80 mg, Oral, 2 times daily, First dose on Thu06/24/21 at 2100, Until Discontinued, Swallow capsule whole. Do not open, chew, or crush. 2009 (Not Given - Provider: Amy Miranda RN - Reason: Patient/family declined) 075 (Not Given - Provider: Kaya Degroot RN - Reason: Patient/family declined) rOPINIRole (REQUIP) tablet 4 mg 4 mg, Oral, Nightly at bedtime, First dose on Thu06/24/21 at 2100, Until Discontinued 2010 (Not Given - Provider: Amy Miranda RN - Reason: Patient/family declined) spironolactone (ALDACTONE) tablet 100 mg 100 mg, Oral, Daily, First dose on Thu06/24/21 at 1300, Until Discontinued 112 (Not Given - Provider: Kaya Degroot RN - Reason: Patient/family declined) 075 (Not Given - Provider: Kaya Degroot RN - Reason: Patient/family declined) traMADol (ULTRAM) tablet 50 mg 50 mg, Oral, 4 times daily, First dose (after last modification) on Thu06/24/21 at 1700, Until Discontinued 163 (Given - Provider: Kaya Degroot, PRITI)2015 (Given - Provider: Amy Miranda RN) 0752 (Given - Provider: Kaya Degroot, PRITI)1333 (Given - Provider: Kaya Degroot RN)1700 (Canceled Entry - Provider: Automatic Discharge Provider - Comment: Automatically canceled at discontinue of medication order) tranexamic acid (CYKLOKAPRON) injection 1,000 mg (COMPLETED) 1,000 mg, Intravenous, Once, 1 dose, On Thu06/24/21 at 0700, PHARMACIST TO ADJUST dose based on SCr (SCr less than 1.6 = 1,000 mg; SCr 1.6-3.3 = 750 mg; SCr 3.4-6.6 = 500 mg; SCr greater than 6.6 = 250 mg). Administer dose over 15 minutes prior to incision., Pre-Op 0803 (Given - Provider: Aki Wallis CRNA) venlafaxine XR (EFFEXOR-XR) 24 hr capsule 150 mg 150 mg, Oral, Daily, First dose on Thu06/24/21 at 1300, Until Discontinued, Swallow capsule whole or it may be opened and the contents sprinkled on applesauce. 1124 (Not Given - Provider: Kaya Degroot RN - Reason: Patient/family declined) 0755 (Not Given - Provider: Kaya Degroot RN - Reason: Patient/family declined) Continuous Medication Order 06/23/2021 06/24/2021 06/25/2021 lactated ringers infusion (CANCELED) at 10 mL/hr, Intravenous, Continuous, Starting on Thu06/24/21 at 0700, Until Thu06/24/21 at 1106, Infuse at TKO rate, Pre-Op 0655 (New Bag - Provider: Yola Jose RN)0942 (New Bag - Provider: Aki Wallis CRNA)1008 (Anesthesia Volume Adjustment - Provider: Aki Wallis CRNA)1010 (Anesthesia Volume Adjustment - Provider: Aki Wallis CRNA) lactated ringers infusion (CANCELED) at 75 mL/hr, Intravenous, Continuous, Starting on Thu06/24/21 at 1130, Until Thu06/25/21 at 0818, Post-Op 1122 (Rate/Dose Verify - Provider: Kaya Degroot RN)2017 (New Bag - Provider: Amy Miranda RN) 0745 (Infusion Stop Time - Provider: Kaya Degroot RN) PRN Medication Order 06/23/2021 06/24/2021 06/25/2021 acetaminophen (TYLENOL) tablet 650 mg 650 mg, Oral, Every 4 hours PRN, Mild pain (Scale 1 - 3), Fever, Starting on Thu06/24/21 at 1105, Until Thu06/25/21 at 1752, Maximum dose of acetaminophen is 4000 mg from all sources in 24 hours., Post-Op chlorhexidine (PERIDEX) 0.12 % solution 15 mL (COMPLETED) 15 mL, Mouth/Throat, PRN, Prior to surgery, 1 dose, Starting on Thu06/24/21 at 0642, Until Thu06/24/21 at 0656, Patient to perform oral care first. Swish/Gargle in mouth for 30 seconds, and then discard, prior to going to surgery/ If ventilated use saturated swab to clean oral cavity., Pre-Op 0656 (Given - Provider: Yola Jose RN) cyclobenzaprine (FLEXERIL) tablet 10 mg 10 mg, Oral, 2 times daily PRN, Muscle Spasms, Starting on Thu06/24/21 at 1105, Until Thu06/25/21 at 1752 HYDROcodone-acetaminophen (NORCO) 5-325 MG tablet 1 tablet 1 tablet, Oral, Every 4 hours PRN, Other, Anticipatory pain, Starting on Thu06/24/21 at 1105, Until Thu06/25/21 at 1752, Administer 30 minutes prior to physical/occupational therapy if needed for anticipatory pain, Post-Op 0749 (Given - Provid er: Kaya Degroot RN)1154 (Given - Provider: Kaya Degroot RN) magnesium hydroxide (MILK OF MAGNESIA) 400 MG/5ML suspension 30 mL 30 mL, Oral, Daily as needed, Constipation, Starting on Thu06/24/21 at 1105, Until Thu06/25/21 at 1752, Give if docusate (COLACE) and bisacodyl (DULCOLAX) are ineffective., Post-Op morphine injection 4 mg 4 mg, Intravenous, Every 2 hours PRN, Other, Breakthrough Pain, Starting on Thu06/24/21 at 1105, Until Thu06/25/21 at 1104, Post-Op ondansetron (ZOFRAN) injection 4 mg 4 mg, Intravenous, Every 6 hours PRN, Nausea, Vomiting, Starting on Thu06/24/21 at 1105, Until Thu06/25/21 at 1752, IV push over 2-5 minutes., Post-Op sodium chloride 0.9 % 3,000 mL with gentamicin 320 mg irrigation (CANCELED) As needed, Starting on Thu06/24/21 at 0812, Until Thu06/24/21 at 1003, Intra-Op 0812 (Given - Provider: Gustavo Salmeron MD) Linked Groups Order Group 1: aspirin EC (ECOTRIN) tablet 81 mgJump to med 81 mg, Oral, 2 times daily with meals, First dose on Thu06/25/21 at 0800, Until Discontinued, Start morning after surgery Do not break, chew, or crush., Post-Op And Place sequential compression device (COMPLETED) Routine, Once, On Thu06/24/21 at 1106, For 1 occurrence, Post-Op And Assess Sequential Compression Device (Assess skin at a minimum of every shift) (CANCELED) Routine, Every shift, First occurrence on Thu06/24/21 at 1106, Post-Op And Intermittent Pneumatic Compression Device Applied (COMPLETED) And Maintain Sequential Compression Device (COMPLETED) Routine, Until discontinued, Starting on Thu06/24/21 at 1106, Until Specified, Post-Op And High Risk for VTE (COMPLETED) documented in this encounter Care Teams Leather Currier Relationship Specialty Start Date End Date Stella Obrien MD [address] [place] [address] PCP - General INTERNAL MEDICINE 08/02/20 documented as of this encounter
--- OUTSIDE RECORDS SUMMARY | 2024-09-13 06:33 | XMS_ITS | Encounter Summary ---
Author Organization [facility] Address [facility] [address] [place] [address] Care Team Providers Care Lathe Machinist Name Role Phone Sebastien Sequeira MD Primary Care Provider Encounter Details Date Type Department Care Team (Latest Contact Info) Description 06/21/2021 8:42 AM CDT - 06/21/2021 11:59 PM CDT Hospital Encounter [address] [place] [address] Gustavo So MD [address] [place] [address] Discharge Disposition: Home or Self [...] Assessment Author Status No 11/19/2020 1:16 PM PRODUCT RESPONSIBILITY LIAISON Activ e * RETIRED Are you blind or do you have serious difficulty seeing, even when wearing glasses? Answer Date of Assessment Author Status No 11/19/2020 1:16 PM PRODUCT RESPONSIBILITY LIAISON Activ e * Do you have serious difficulty walking or climbing stairs? Answer Date of Assessment Author Status Yes 11/19/2020 1:16 PM Nory Barron R N Active * Do you have difficulty dressing or bathing? Answer Date of Assessment Author Status No 11/19/2020 1:16 PM PRODUCT RESPONSIBILITY LIAISON Nory Whitaker R N Active * Because of a [...] Procedure Name Priority Date/Time Associated Diagnosis Comments CORONAVIRUS (COVID 19) Routine 06/21/2021 9:00 AM CDT Pre-operative laboratory examination documented in this encounter Results * CORONAVIRUS (COVID 19) (06/21/2021 9:00 AM CDT) SPEC DESCRIPTION NASAL 06/21/20 8:45 AM CDT [facility] CORONAVIRUS SARS COV 2 PCR (RESP) NEGATIVE NEGATIVE 06/21/2021 7:18 PM CDT [facility] Comment: THE SARS-CoV-2 TEST HAS BEEN AUTHORIZED BY THE FDA UNDER AN EUA FOR USE BY AUTHORIZED LABORATORIES. PERFORMED BY NUCLEIC ACID AMPLIFICATION PCR FIRST TEST UNKNOWN 06/21/2021 8:45 AM CDT [facility] EMPLOYED IN HEALTHCARE NO 06/21/2021 8:45 AM CDT [facility] SYMPTOMATIC DEFINED BY CDC NO 06/21/2021 8:45 AM CDT [facility] HOSPITALIZATION STATUS NO 06/21/2021 8:45 AM CDT [facility] PATIENT IN ICU NO 06/21/2021 8:45 AM CDT [facility] RESIDENT OF [facility] NO 06/21/2021 8:45 AM CDT [facility] NASAL STRUCTURE / Unknown 06/21/2021 9:00 AM CDT us Gustavo So MD MICROBIOLOGY - GENERAL ORDERAB LES Final Result [facility] [address] [place] [address], [place] [phone] [facility] [address] [place] [address], [place] [phone] documented in this encounter Visit Diagnoses Diagnosis Pre-operative laboratory examination Pre-procedural laboratory examination documented in this encounter Additional Health Concerns Infection Onset Date Last Indicated Resolved Time COVID-19 Rule Out 06/21/2021 06/21/2021 06/21/2021 7:19 PM CDT documented as of this encounter Care Teams Lathe Machinist Relationship Specialty Start Date End Date Sebastien Sequeira MD [address] [place] [id number] PCP - General INTERNAL MEDICINE 08/02/20 documented as of this encounter
--- OUTSIDE RECORDS SUMMARY | 2024-09-13 06:33 | XMS_ITS | Encounter Summary ---
Author Organization [facility] Address [facility] [place] [address] [place] [address] Care Team Providers Care Cyber Incident Responder Name Role Phone Sebastien Sequeira MD Primary Care Provider [phone] Encounter Details Date Type Department Care Team (Latest Contact Info) Description 06/24/2021 Travel Social History Tobacco Use Types Packs/Day [...] or climbing stairs? No 06/24/2021 11:17 AM CDT Man Degroot RN Active * Question Answer Date of Assessment Author Status Do you have difficulty dressing or bathing? No 06/24/2021 11:17 AM CDT Taryn Degroot RN Active Because of a [...] or making decisions? No 06/24/2021 11:17 AM Kaya Larson RN Active * Because of a [...] on filedocumented in this encounter Care Teams Cyber Incident Responder Relationship Specialty Start Date End Date Sebastien Sequeira MD [address] [place] [address] PCP - General INTERNAL MEDICINE 08/02/20 documented as of this encounter
--- OUTSIDE RECORDS SUMMARY | 2024-09-13 06:33 | XMS_ITS | Encounter Summary ---
Author Organization [facility] Address [facility] [place] [address] [place] [address] Care Team Providers Care Workforce Advisor Name Role Phone Sebastien Sequeira MD Primary Care Provider [phone] Encounter Details Date Type Department Care Team (Latest Contact Info) Description 08/28/2021 2:29 PM ASSISTANT WOMEN'S TENNIS COACH - 08/28/2021 11:59 PM ASSISTANT WOMEN'S TENNIS COACH Hospital Encounter [facility] [address] [place] [address] Gustavo So MD [address] [place] [address] Discharge Disposition: Home or Self [...] COVID-19? No / Unsure 08/28/2021 2:29 PM ASSISTANT WOMEN'S TENNIS COACH documented as of this encounter Functional Status [...] 2 (two) times daily as needed. 02/10/2021 10/09/2021 EUTHYROX 125 MCG tablet Take 1 tablet (125 mcg total) by mouth daily. 07/15/2020 08/18/2023 furosemide 20 MG tablet Take 1 tablet (20 mg total) by mouth as needed. 01/14/2020 08/18/2023 HYDROcodone-aceta minophen 5-325 MG tabletIndications :Acute Pain < 7 Day Supply Take 1-2 tablets by mouth every 4 (four) hours as needed for Pain. Indications: Acute Pain < 7 Day Supply 30 tablet 06/25/2021 10/09/2021 HYDROcodone-aceta minophen 5-325 MG tabletIndications :Chronic Pain Take 1 tablet by mouth every 6 (six) hours as needed. Indications: Chronic Pain 30 tablet 07/04/2021 10/09/2021 pregabalin 200 MG capsule Take 200 mg by mouth 2 (two) times daily. 12/26/2020 07/09/2022 propranolol LA 160 MG 24 hr capsule Take 1 capsule (160 mg total) by mouth daily. 05/11/2020 08/18/2023 spironolactone 100 MG tablet Take 1 tablet by mouth daily. 01/20/2020 10/09/2021 traMADol 50 MG tablet Take 50 mg [...] Comments XR SHOULDER RT MIN 2V Routine 08/28/2021 2:39 PM ASSISTANT WOMEN'S TENNIS COACH Aftercare documented in this encounter Results * XR SHOULDER RT MIN 2V (08/28/2021 2:39 PM ASSISTANT WOMEN'S TENNIS COACH) Anatomical Region Laterality Modality Shoulder Radiographic Charlotte ging 08/28/2021 3:41 PM ASSISTANT WOMEN'S TENNIS COACH Impressions 08/28/2021 3:42 PM ASSISTANT WOMEN'S TENNIS COACH IMPRESSION: 1) No significant radiographic abnormality. Ordered By: GUSTAVO SO Interpreted By: Harshal Marie MD, 08/28/2021 3:41 PM Narrative 08/28/2021 3:42 PM ASSISTANT WOMEN'S TENNIS COACH Examination: XR SHOULDER RT MIN 2V Exam [...] By: Harshal Marie MD, 08/28/2021 3:41 PM us Gustavo So MD GENERAL IMAGING Final Result documented in this encounter Visit Diagnoses Diagnosis Aftercare Unspecified aftercare documented in this encounter Care Teams Workforce Advisor Relationship Specialty Start Date End Date Sebastien Sequeira MD [address] [place] [address] PCP - General INTERNAL MEDICINE 08/02/20 documented as of this encounter
--- OUTSIDE RECORDS SUMMARY | 2024-09-13 06:33 | XMS_ITS | Encounter Summary ---
Author Organization [facility] Address [facility] [place] [address] [place] [address] Care Team Providers Care Patternmaker Bench Name Role Phone Sebastien Sequeira MD Primary Care Provider [phone] Encounter Details Date Type Department Care Team (Latest Contact Info) Description 07/04/2021 3:54 PM CDT - 07/04/2021 11:59 PM CDT Hospital Encounter [facility] Diagnostic Imaging [address] [place] [address] Gustavo So MD [address] [place] [address] Discharge Disposition: Home or Self [...] 7 Day Supply 30 tablet 06/25/2021 2 HYDROcodone-acetam inophen 5-325 MG tabletIndications: Chronic Pain Take 1 tablet by mouth every 6 (six) hours as needed. Indications: Chronic Pain 30 tablet 07/04/2021 2 pregabalin 200 MG capsule Take 200 [...] Comments XR SHOULDER RT MIN 2V Routine 07/04/2021 4:32 PM CDT Aftercare documented in this encounter Results * XR SHOULDER RT MIN 2V (07/04/2021 4:32 PM CDT) Anatomical Region Laterality Modality Shoulder Radiographic Charlotte ging 07/05/2021 10:0 8 PM CDT Impressions 07/05/2021 10:10 PM CDT IMPRESSION: Right shoulder arthroplasty without evidence of complication. Referred By: GUSTAVO SO Interpreted By: Michele Rodríguez DO, 07/05/2021 10:08 PM Narrative 07/05/2021 10:10 PM CDT EXAMINATION: X-ray right shoulder, 2 views HISTORY: Follow-up right shoulder arthroplasty. COMPARISON: X-ray right shoulder 02/19/2021. TECHNIQUE: AP and axial views of the right shoulder. FINDINGS: Interval placement of a right shoulder arthroplasty. Alignment appears normal. No evidence of hardware complication. No acute appearing osseous abnormalities. Surgical cricket are noted. ?? Procedure Note Michele Rodríguez DO - 07/05/2021 EXAMINATION: X-ray right shoulder, 2 views HISTORY: Follow-up right shoulder arthroplasty. COMPARISON: X-ray right shoulder 02/19/2021. TECHNIQUE: AP and axial views of the right shoulder. FINDINGS: Interval placement of a right shoulder arthroplasty. Alignment appearsnormal. No evidence of hardware complication. No acute appearing osseousabnormalities. Surgical cricket are noted. IMPRESSION: Right shoulder arthroplasty without evidence of complication. Referred By: GUSTAVO SO Interpreted By: Michele Rodríguez DO, 07/05/2021 10:08 PM us Gustavo So MD GENERAL IMAGING Final Result documented in this encounter Visit Diagnoses Diagnosis Aftercare Unspecified aftercare documented in this encounter Care Teams Patternmaker Bench Relationship Specialty Start Date End Date Sebastien Sequeira MD [address] [place] [address] PCP - General INTERNAL MEDICINE 08/02/20 documented as of this encounter
--- OUTSIDE RECORDS SUMMARY | 2024-09-13 06:33 | XMS_ITS | Encounter Summary ---
Author Organization [facility] Address [address] [place] [address]. [place] [address] [place] [address] Care Team Providers Care All Round Logger Name Role Phone Sebastien Sequeira MD Primary Care Provider [phone] Reason for Visit * Reason Comments Physical Therapy Encounter Details Date Type Department Care Team (Late st Contact Info) Description 08/14/2021 Scan [facility] Information Services [address] [place] [address] Scanned, Documents Physical Therapy Social History Tobacco [...] COVID-19? No / Unsure 08/01/2021 2:36 PM BOILER MAKER documented as of this encounter Functional Status [...] on filedocumented in this encounter Care Teams All Round Logger Relationship Specialty Start Date End Date Sebastien Sequeira MD [address] [place] [address] PCP - General INTERNAL MEDICINE 08/02/20 documented as of this encounter
--- OUTSIDE RECORDS SUMMARY | 2024-09-13 06:33 | XMS_ITS | Encounter Summary ---
Author Organization [facility] Address [facility] [place] [address] [place] [address] Care Team Providers Care Gambling Supervisor Name Role Phone Sebastien Sequeira MD Primary Care Provider [phone] Reason for Visit * Auth/Cert Specialty Diagnoses / Procedures Referred By Aaron rai Referred To Contact Diagnoses M75.100, M12.819 Procedures RECONSTR TOTAL SHOULDER IMPLANT RIGHT Reverse Total Shoulder Arthroplasty; James notified; Outpatient Status; Cardiac Clearance per Dr. Schmitz Referral ID Status Reason Start Date Expiration Date Visits Re quested Visits Authorized [id number] 1 1 Encounter Details Date Type Department Care Team (Late st Contact Info) Description 06/24/2021 7:30 AM CDT Anesthesia Event [address] [place] [address] Nura Bey MD [facility] [employer] [address] Anesthesia Record Procedure Summary Procedure Name Responsible Anesthesiologist Anesthesia Start Time Anesthesia Stop Time RIGHT Reverse Total Shoulder Arthroplasty (Right: Shoulder) 06/24/21 0730 06/24/21 1009 Events Date Time Event Comment 06/24/2021 0730 An Start Patient ID and consent checked and patient reassessed. 0730 An Start Data 0734 Preoxygenation 0738 An Induction The patient was reevaluated immediately before moderate or deep sedation use and before anesthesia induction. 0739 An LMA 0741 0751 Anesthesia Ready 0952 LMA Removed 1001 an stop data 1009 An Stop 1009 Post Anesthetic Care Handoff I completed my [...] mL injecti on 150 mg dexamethasone (DECADRON) 4 mg/mL injecti on 8 mg metoclopramide (REGLAN) 5 mg/mL injectio n 10 mg ceFAZolin (ANCEF) 3 g in NS 100 mL IVPB 2 g tranexamic acid (CYKLOKAPRON) injection 1,000 mg 1,000 mg ketamine 50 mg/mL injection 25 mg ePHEDrine injection 50 mg glycopyrrolate (ROBINUL) injection 0.3 m g phenylephrine (JENNIFFER-SYNEPHRINE) injection 540 mcg vasopressin injection 20 units 10 Units phenylephrine (JENNIFFER-SYNEPHRIN E) 50 mg in sodium chloride 0.9 % 250 mL (0.2 mg/mL) infusion 10.9 mg ropivacaine (NAROPIN) 0.5% injection 20 mL lactated ringers infusion 1,200.33 mL * Agents Name O2 N2O Inspired Sevoflurane Sevoflurane * Blood No blood administrations on file. Lines, Drains, and Airways Type Details Placement Removal Peripheral IV Placement Date: 06/24/21; Placement Time: 653; Placed Outside of This Facility?: No; Size: 20 G; Orientation: Left, Posterior; Location: Forearm; Site Prep: Chlorhexidine; Local Anesthetic: None; Inserted By: PRITI NOVAK; Insertion attempts: 1; Ultrasound-guided Placement?: No; Patient Tolerance: Tolerated well; Removal Date: 06/25/21; Removal Time: 1526 06/24/21 0654 by Yola Jose RN 06/25/21 1526 by Kaya Degroot RN Supraglottic Airway Placement Date: 06/24/21; Placement Time: 0739; Airway Device: LMA; LMA Size: 4; Placed Outside of This Facility?: No; Placed By: ASSOCIATE RELATIONS SPECIALIST; Style: Classic; Insertion Attempts:1; Placement Verified By: Capnography, Chest Rise; Extubation Assessment: Tolerated well; Removal Date: 06/24/21; Removal Time: 1001; Removal Person: Anesthesiologist; Removal Reason: End of Case 06/24/21 0739 by Aki Wallis CRNA 06/24/21 1001 by Aki Wallis CRNA Canseco Catheter 06/24/21; 0745; 1; Straight-tip; 18 Fr. 06/24/21 0745 by Queta Regalado RN 06/25/21 0600 by Kaya Degroot RN Surgical/Incision 06/24/21; 0950; Surgical Wound; Shoulder; Right; cricket, Avelle dress with wound therapy pump; 06/25/21; 1752 06/24/21 0950 by Queta Regalado RN 06/25/21 1752 by Automatic Discharge Provider documented in this [...] office or shopping? No 06/24/2021 11:17 AM CDT Man Degroot RN Active * RETIRED Are you deaf or do you have serious difficulty hearing Answer Date of Assessment Author Status No 11/19/2020 1:16 PM APARTMENT COMMUNITY MANAGER Activ e * RETIRED Are you blind or do you have serious difficulty seeing, even when wearing glasses? Answer Date of Assessment Author Status No 11/19/2020 1:16 PM APARTMENT COMMUNITY MANAGER Activ e * Do you have serious difficulty walking or climbing stairs? Answer Date of Assessment Author Status Yes 11/19/2020 1:16 PM APARTMENT COMMUNITY MANAGER Nory Whitaker R N Active * Do you have difficulty dressing or bathing? Answer Date of Assessment Author Status No 11/19/2020 1:16 PM APARTMENT COMMUNITY MANAGER Nory Whitaker R N Active * Because of a physical, mental, or emotional condition, do you have difficulty doing errands alone such as visiting a doctor's office or shopping? Answer Date of Assessment Author Status No 11/19/2020 1:16 PM APARTMENT COMMUNITY MANAGER Nory Whitaker R N Active documented as of this encounter Mental Status * Question Answer Entry Date Author Status Because of a physical, mental, or emotional condition, do you have serious difficulty concentrating, remembering, or making decisions? No 06/24/2021 11:17 AM CDT Kaya Degroot RN Active * Because of a physical, mental, or emotional condition, do you have serious difficulty concentrating, remembering, or making decisions? Answer Entry Date Author Status No 06/24/2021 11:17 AM CDT Vania Degroot RN Active documented in this encounter Progress Notes * Nura Bey MD - 06/25/2021 11:03 AM CDT Addendum created 06/25/21 1103 by Nura Bey MD Clinical Note Signed, Flowsheet accepted documented in this encounter OR Notes * Anesthesia Postprocedure Evaluation - Aki Wallis CRNA - 06/24/2021 10:38 AM CDT Anesthesia Post-op Note [place] Procedure(s): RIGHT Reverse Total Shoulder Arthroplasty (Right Shoulder) Anesthesia type: general, peripheral nerve block as primary anesthesia Vitals: 06/24/21 1035 BP: 132/81 Vitals: 06/24/21 1035 Pulse: 80 Vitals: 06/24/21 1035 Resp: 18 Vitals: 06/24/21 1035 Temp: 35.8 ??C Vitals: 06/24/21 1035 SpO2: 94% Patient Location: PACU Level of Consciousness: awake, alert and oriented Pain Management: pain being treated or addressed Airway Patency: patent Respiratory Status: spontaneous ventilation and acceptable Cardiovascular Status: acceptable, stable and hemodynamically stable Post-Op Nausea: none Postoperative Hydration: euvolemic No complications documented. * Anesthesia Procedure Notes - Aki Wallis CRNA - 06/24/2021 9:11 AM CDT Associated Order(s): Peripheral Block Peripheral Nerve Block Peripheral Block Procedure Start Time: 06/24/2021 7:19 AM Procedure Stop Time: 06/24/2021 9:25 AM Patient Location During Procedure: pre-op Reason for Block: at surgeon's request and post-op pain management Preanesthetic Checklist Completed: patient identified, site marked, consent, pre-op evaluation, timeout performed, IV checked, risks and benefits discussed and monitors and equipment checked Procedure Information Patient Position: Semi-recumbent Prep: Chloraprep Patient Monitoring: blood pressure, continuous pulse ox, ECG/EKG and heart rate Block Type: Interscalene Laterality: right Injection Technique: single-shot Procedures: ultrasound guided and nerve stimulator Draping: sterile technique maintained Needle Needle type: Medline Echogenic. Needle Gauge: 22 G (24G) Needle Length: 2 in (4cm) Needle Localization: anatomical landmarks and ultrasound guidance Test Dose: negative Local Volume: 20 mL Needle Attempts: 1 Assessment Injection Assessment: incremental injection, local visualized surrounding nerve on ultrasound, negative aspiration for heme, no apparent complications, no paresthesia on injection, paresthesia absentand ultrasound image saved Heart rate change: no Additional Notes Risks explained: difficult placement, may be ineffective, bleeding, infection, nerve damage, hoarseness, blurry vision, and difficulty breathing. Benefits explained to patient: may lower sedation and/or general anesthetic dose, possibly less pain after procedure.Timeout performed including patientsname, date, and laterality. Patient participated in the timeout. Antiseptic prep. ID of subclavian artery and brachial plexus. Scrolled superiorly to visualize the interscalene region. Needle placed under guidance. Injected local anesthetic with multiple negative aspirations. Patient tolerated procedure well. * Anesthesia Preprocedure Evaluation - Aki Wallis CRNA - 06/20/2021 7:55 AM CDT Anesthesia ROS/MED History Reviewed: Patient summary , Family history anesthesia, Anesthesia history , Medications , Labs Pre-Anesthetic State: alert, awake and responds appropriately Pulmonary (+) sleep apnea Cardiovascular Exercise tolerance:good (+) hypertension Neuro/Psych (+) neuromuscular disease (RLS), (fibromyalgia), CVA (2017- no residual), depression, headaches (migraines) GI/Hepatic/Renal (+) GERD Endo/Other (+) obese, (Morbid) GENERAL COMMENTS Had B ALEXUS done here in last 2 years with no issues Pantoprazole Propanolol ECG SINUS RHYTHM WITH OCCASIONAL ECTOPIC PREMATURE COMPLEXES Risk Assessment (SCHMIDT)- 30 day Cardiac- 0.25% Stroke- 0.11% Mortality- 0.67% Physical Evaluation Airway Mallampati: III Neck ROM: normal Dental Pulmonary Pulmonary exam normal Cardiovascular Cardiovascular exam normal Anesthesia Plan ASA 3 Intravenous Induction Anesthesia type: general and peripheral nerve block as primary anesthesia Plan for Airway: LMA Plan for Post-op Pain Plan: block, as per surgeon, oral pain medication and IV analgesics ISB Informed Consent Anesthetic plan and risks discussed with patient of whom consent was obtained. . documented in this encounter Plan of [...] Procedure Name Priority Date/Time Associated Diagnosis Comments MD AN PERIPHERAL BLOCK SINGLE-SHOT Routine 06/24/2021 9:11 AM CDT documented in this encounter Results * MD AN PERIPHERAL BLOCK SINGLE-SHOT (06/24/2021 9:11 AM CDT) Narrative Aki Wallis CRNA - 06/24/2021 9:11 AM CDT Aki Wallis CRNA ? 06/24/2021 ??9:12 AM Peripheral Nerve Block Peripheral Block Procedure Start Time: 06/24/2021 7:19 AM Procedure Stop Time: 06/24/2021 9:25 AM Patient Location During Procedure: pre-op Reason for Block: at surgeon's request and post-op pain management Preanesthetic Checklist Completed: patient identified, site marked, consent, pre-op evaluation, timeout performed, IV checked, risks and benefits discussed and monitors and equipment checked Procedure Information Patient Position: Semi-recumbent Prep: Chloraprep Patient Monitoring: blood pressure, continuous pulse ox, ECG/EKG and heart rate Block Type: Interscalene Laterality: right Injection Technique: single-shot Procedures: ultrasound guided and nerve stimulator Draping: sterile technique maintained Needle Needle type: Medline Echogenic. Needle Gauge: 22 G (24G) Needle Length: 2 in (4cm) Needle Localization: anatomical landmarks and ultrasound guidance Test Dose: negative Local Volume: 20 mL Needle Attempts: 1 Assessment Injection Assessment: incremental injection, local visualized surrounding nerve on ultrasound, negative aspiration for heme, no apparent complications, no paresthesia on injection, paresthesia absent and ultrasound image saved Heart rate change: no Additional Notes Risks explained: difficult placement, may be ineffective, bleeding, infection, nerve damage, hoarseness, blurry vision, and difficulty breathing. Benefits explained to patient: may lower sedation and/or general anesthetic dose, possibly less pain after procedure.Timeout performed including patients name, date, and laterality. Patient participated in the timeout. Antiseptic prep. ID of subclavian artery and brachial plexus. Scrolled superiorly to visualize the interscalene region. Needle placed under guidance. Injected local anesthetic with multiple negative aspirations. Patient tolerated procedure well. Aki Wallis CRNA MD ANESTHESIA Final Res ult documented in this encounter Visit Diagnoses Not on filedocumented in this encounter Administered Medications Inactive Administered Medications - up to 3 most recent administrations Medication Order MAR Action Action Date Dose Rate Site ceFAZolin (ANCEF) 3 g in NS 100 mL IVPB 3 g, Intravenous, at 200 mL/hr, call center coordinator, 1 dose, On Thu06/24/21 at 0700, Give 3 gram dose for patients greater than or equal to 120 kg. Give within 60 minutes of surgical incision., Pre-Op Given 06/24/2021 7:52 AM CDT 2 g dexamethasone (DECADRON) injection Intravenous, PRN, Starting on Thu06/24/21 at 0738, Until Thu06/24/21 at 1011, Anesthesia Intra-Op Given 06/24/2021 7:38 AM CDT 8 mg ePHEDrine injection Intravenous, PRN, Starting on Thu06/24/21 at 0806, Until Thu06/24/21 at 1011, Anesthesia Intra-Op Given 06/24/2021 8:13 AM CDT 20 mg Given 06/24/2021 8:10 AM CDT 15 mg Given 06/24/2021 8:06 AM CDT 15 mg fentaNYL (SUBLIMAZE) injection Intravenous, PRN, Starting on Thu06/24/21 at 0719, Until Thu06/24/21 at 1011, Anesthesia Intra-Op Given 06/24/2021 7:19 AM CDT 100 mcg glycopyrrolate (ROBINUL) injection SOLN Intravenous, PRN, Starting on Thu06/24/21 at 0812, Until Thu06/24/21 at 1011, Anesthesia Intra-Op Given 06/24/2021 8:12 AM CDT 0.3 mg ketamine (KETALAR) injection Intravenous, PRN, Starting on Thu06/24/21 at 0800, Until Thu06/24/21 at 1011, Anesthesia Intra-Op Given 06/24/2021 8:00 AM CDT 25 mg lactated ringers infusion at 10 mL/hr, Intravenous, Continuous, Starting on Thu06/24/21 at 0700, Until Thu06/24/21 at 1106, Infuse at TKO rate, Pre-Op New Bag 06/24/2021 9:42 AM CDT 10 mL/hr New Bag 06/24/2021 6:55 AM CDT 1,000 mLs 10 mL/hr metoclopramide (REGLAN) injection Intravenous, PRN, Starting on Thu06/24/21 at 0738, Until Thu06/24/21 at 1011, Anesthesia Intra-Op Given 06/24/2021 7:38 AM CDT 10 mg midazolam (VERSED) injection Intravenous, PRN, Starting on Thu06/24/21 at 0719, Until Thu06/24/21 at 1011, Anesthesia Intra-Op Given 06/24/2021 7:19 AM CDT 2 mg phenylephrine (JENNIFFER-SYNEPHRINE) 50 mg in sodium chloride 0.9 % 250 mL (0.2 mg/mL) infusion Intravenous, Continuous PRN, Starting on Thu06/24/21 at 0825, Until Thu06/24/21 at 1011, Anesthesia Intra-Op Rate/Dose Change 06/24/2021 9:25 AM CDT 0.5 mcg/kg/min 20.07 mL/hr Rate/Dose Change 06/24/2021 8:52 AM CDT 1.5 mcg/kg/min 60. 21 mL/hr New Bag 06/24/2021 8:25 AM CDT 1 mcg/kg/min 40.14 mL/hr phenylephrine (JENNIFFER-SYNEPHRINE) injection Intravenous, PRN, Starting on Thu06/24/21 at 0818, Until Thu06/24/21 at 1011, Anesthesia Intra-Op Given 06/24/2021 9:41 AM CDT 120 mcg Given 06/24/2021 9:36 AM CDT 120 mcg Given 06/24/2021 8:18 AM CDT 300 mcg propofol (DIPRIVAN) IV bolus Intravenous, PRN, Starting on Thu06/24/21 at 0738, Until Thu06/24/21 at 101, Anesthesia Intra-Op Given 06/24/2021 7:38 AM CDT 150 mg ropivacaine (NAROPIN) injection Interscalene, PRN, Starting on Thu06/24/21 at 0725, Until Thu06/24/21 at 1011, Anesthesia Intra-Op Given 06/24/2021 7:25 AM CDT 20 mLs tranexamic acid (CYKLOKAPRON) injection 1,000 mg 1,000 mg, Intravenous, Once, 1 dose, On Thu06/24/21 at 0700, PHARMACIST TO ADJUST dose based on SCr (SCr less than 1.6 = 1,000 mg; SCr 1.6-3.3 = 750 mg; SCr 3.4-6.6 = 500 mg; SCr greater than 6.6 = 250 mg). Administer dose over 15 minutes prior to incision., Pre-Op Given 06/24/2021 8:03 AM CDT 1,000 mg vasopressin (PITRESSIN) injection Intravenous, PRN, Starting on Thu06/24/21 at 0820, Until Thu06/24/21 at 1011, Anesthesia Intra-Op Given 06/24/2021 9:41 AM CDT 2 Units Given 06/24/2021 9:24 AM CDT 2 Units Given 06/24/2021 8:32 AM CDT 2 Units documented in this encounter Care Teams Gambling Supervisor Relationship Specialty Start Date End Date Sebastien Sequeira MD [address] [place] [address] PCP - General INTERNAL MEDICINE 08/02/20 documented as of this encounter
--- OUTSIDE RECORDS SUMMARY | 2024-09-13 06:33 | XMS_ITS | Encounter Summary ---
Author Organization [facility] Address Count includes the [facility] [place] [address] [place] [address] Care Team Providers Care Antenna Machine Operator Name Role Phone Sebastien Sequeira MD Primary Care Provider [phone] Encounter Details Date Type Department Care Team (Latest Contact Info) Description 08/22/2021 Travel Social History Tobacco Use Types Packs/Day [...] have Coronavirus / COVID-19? No / Unsure 08/22/2021 1:29 PM CASE MGR documented as of this encounter Functional Status [...] on filedocumented in this encounter Care Teams Antenna Machine Operator Relationship Specialty Start Date End Date Sebastien Sequeira MD [address] [place] [address] PCP - General INTERNAL MEDICINE 08/02/20 documented as of this encounter
--- OUTSIDE RECORDS SUMMARY | 2024-09-13 06:33 | XMS_ITS | Encounter Summary ---
Author Organization [facility] Address [facility] [place] [address] [place] [address] Care Team Providers Care Shirt Bander Name Role Phone Sebastien Sequeira MD Primary Care Provider [phone] Encounter Details Date Type Department Care Team (Latest Contact Info) Description 08/01/2021 2:38 PM EDGE SETTER - 08/01/2021 11:59 PM EDGE SETTER Hospital Encounter [facility] [address] [place] [address] Gustavo So MD [address] [place] [address] Discharge Disposition: Home or Self [...] COVID-19? No / Unsure 08/01/2021 2:36 PM EDGE SETTER documented as of this encounter Functional Status [...] Name Priority Date/Time Associated Diagnosis Comments XR HIP MARITZA 2V Routine 08/01/2021 2:47 PM EDGE SETTER Bilateral hip pain XR SHOULDER RT MIN 2V Routine 08/01/2021 2:47 PM EDGE SETTER Status post reverse arthroplasty of right shoulder documented in this encounter Results * XR HIP MARITZA 2V (08/01/2021 2:47 PM EDGE SETTER) Anatomical Region Laterality Modality Hip, Pelvis Radiographic [place] ging 08/01/2021 3:28 PM EDGE SETTER Impressions 08/01/2021 3:29 PM EDGE SETTER Impression: Stable bilateral hip arthroplasties without complication. Referred By: ?? Interpreted By: Prince Muñoz MD, 08/01/2021 3:28 PM Narrative 08/01/2021 3:29 PM EDGE SETTER Date: 08/01/2021 2:47 PM Exam: XR HIP [...] SHOULDER RT MIN 2V (08/01/2021 2:47 PM EDGE SETTER) Anatomical Region Laterality Modality Shoulder Radiographic [place] ging 08/01/2021 3:27 PM EDGE SETTER Impressions 08/01/2021 3:28 PM EDGE SETTER Impression: Stable appearance of the reverse right shoulder arthroplasty without gross complication. Referred By: ?? Interpreted By: Prince Muñoz MD, 08/01/2021 3:27 PM Narrative 08/01/2021 3:28 PM EDGE SETTER Date: 08/01/2021 2:47 PM Exam: XR SHOULDER [...] thigh documented in this encounter Care Teams Shirt Bander Relationship Specialty Start Date End Date Sebastien Sequeira MD [address] [place] [phone] PCP - General INTERNAL MEDICINE 08/02/20 documented as of this encounter
--- OUTSIDE RECORDS SUMMARY | 2024-09-13 06:33 | XMS_ITS | Encounter Summary ---
Author Organization [facility] Address [address] [place] [address]. [place] [address] [place] [address] Care Team Providers Care Upstairs Maid Name Role Phone Sebastien Sequeira MD Primary Care Provider [phone] Reason for Visit * Reason Comments Postop Followup DOS: 06/24/21 right reverse total shoulder arthroplasty using a DePuy delta extend 12mm stem with a size 1 eccentric body and a 38 mm +2 glenosphere with a +9 metal spacer with a + 3 polyethylene spacer Encounter Details Date Type Department Care Team (Latest Contact Info) Description 07/04/2021 4:45 PM CDT Office Visit [facility] [place] [id number] Gustavo So MD [address] [place] [address] Postop Followup (DOS: 06/24/21 right reverse total [...] - - Weight 135.2 kg (298 lb) 07/04/2021 4:07 PM CDT Height 177.8 cm (5' 10 ) 07/04/2021 4:07 PM CDT Body Mass Index 42.76 07/04/2021 4:07 PM CDT documented in this encounter Functional [...] Progress Notes * Gustavo So MD - 07/04/2021 4:45 PM CDT Chief Complaint: Postop Followup (DOS: 06/24/21 right reverse total shoulder arthroplasty using a DePuy delta litbly52gm stem with a size 1 eccentric body [...] with a + 3 polyethylene spacer) Patient presents to office with . She states things have been going well up until the last day but relates increased pain to fibromyalgia. She notes pain has improved greatly post operatively and she has returned to sleeping in her own bed last week. She is taking [place] PRN for pain with good relief but notes she will need a refill. [place] removed from RIGHT shoulder without difficulty. Edges well approximated. No signs of infection observed. Patient tolerated staple removal well. ROS: See HPI for pertinent [...] Smoker ??? Smokeless tobacco: Never Used Substance and Sexual Activity ??? Alcohol use: Not Currently ??? Drug use: Never ??? Sexual activity: Not on file Other Topics Concern ??? Not on file Social History Narrative ??? Not on file Social Determinants of Health Financial Resource Strain: ??? Difficulty of Paying Living Expenses: Food Insecurity: ??? Worried About Running Out of Food in the Last Year: ??? Ran Out of Food in the Last Year: Transportation Needs: ??? Lack of Transportation (Medical): ??? Lack of Transportation (Non-Medical): Physical Activity: ??? Days of Exercise per Week: ??? Minutes of Exercise per Session: Stress: ??? Feeling of Stress : Social Connections: ??? Frequency of Communication with Friends and Family: ??? Frequency of Social Gatherings with Friends and Family: ??? Attends [employer] Services: ??? Active Member of Clubs or Organizations: ??? Attends Club or Organization Meetings: ??? Marital Status: Intimate Partner Violence: ??? Fear of Current or Ex-Partner: ??? Emotionally Abused: ??? Physically Abused: ??? Sexually Abused: Medications: Current Outpatient Medications: ??? aspirin EC 81 MG tablet, Take 1 tablet (81 mg total) by mouth 2 (two) times daily with meals for 14 days., Disp: 28 tablet, Rfl: 0 ??? busPIRone 15 MG tablet, Take 1 [...] index is 42.76 kg/m??. Last Recorded Weight 07/04/21 1607 Weight: 135.2 kg (298 lb) Physical exam: Constitutional: Alert and in no acute distress. Neurological: The patient was oriented to person, place, and time. Eyes: The sclera and conjunctiva were normal ENT: Hearing was normal. Neck: The appearance of the neck was normal. Cardiovascular: Normal pulses. Pulmonary: No respiratory distress. Skin: No injuries or skin lesion. Musculoskeletal: Right shoulder examination demonstrates that her incision is in good condition without erythema or drainage and she is neurovascularly intact. Stiffness is pretty typical Results: X-ray demonstrates good positioning of her right reverse total shoulder arthroplasty Assessment: Encounter Diagnose(s) ICD-10-CM ICD-9-CM SNOMED CT(R) 1. Rotator cuff tear arthropathy, unspecified laterality M75.100 716.81 ROTATOR CUFF TEAR ARTHROPATHY HYDROcodone-acetaminophen 5-325 MG tablet M12.819 2. Status post reverse arthroplasty of right shoulder Z96.611 V43.61 HISTORY OF REVERSE PROSTHETIC TOTAL ARTHROPLASTY OF RIGHT SHOULDER Plan: Patient is doing well with improving pain relief. Her preoperative symptoms have resolved and she just has the surgical pain now. I have given her a prescription for physical therapy and have reviewed activity restrictions. She will return in a month for evaluation of her right shoulder as well as routine follow-up for her hips. I refilled her [place] Follow up: Return in about 4 weeks (around 08/01/2021). GUSTAVO SO MD documented in this encounter [...] this encounter Visit Diagnoses Diagnosis Rotator cuff tear arthropathy, unspecified laterality- Primary Status post reverse arthroplasty of right shoulder documented in this encounter Care Teams Upstairs Maid Relationship Specialty Start Date End Date Sebastien Sequeira MD [address] [place] [phone] PCP - General INTERNAL MEDICINE 08/02/20 documented as of this encounter
--- OUTSIDE RECORDS SUMMARY | 2024-09-13 06:33 | XMS_ITS | Encounter Summary ---
Author Organization [facility] Address [address] [place] [address]. [place] [address] [place] [address] Care Team Providers Care Ager Tender Name Role Phone Sebastien Sequeira MD Primary Care Provider [phone] Reason for Visit * Reason Comments Physical Therapy Encounter Details Date Type Department Care Team (Late st Contact Info) Description 07/15/2021 Scan [facility] Information Services [address] [place] [address] Scanned, Documents Physical Therapy Social History Tobacco [...] on filedocumented in this encounter Care Teams Ager Tender Relationship Specialty Start Date End Date Sebastien Sequeira MD [address] [place] [phone] PCP - General INTERNAL MEDICINE 08/02/20 documented as of this encounter
--- OUTSIDE RECORDS SUMMARY | 2024-09-13 06:33 | XMS_ITS | Encounter Summary ---
Author Organization [facility] Address [facility] [place] [address] [place] [address] Care Team Providers Care Dry Cleaning Attendant Name Role Phone Sebastien Sequeira MD Primary Care Provider Encounter Details Date Type Department Care Team (Latest Contact Info) Description 07/04/2021 Travel Social History Tobacco Use Types Packs/Day [...] on filedocumented in this encounter Care Teams Dry Cleaning Attendant Relationship Specialty Start Date End Date Sebastien Sequeira MD [address] [place] [address] PCP - General INTERNAL MEDICINE 08/02/20 documented as of this encounter
--- OUTSIDE RECORDS SUMMARY | 2024-09-13 06:33 | XMS_ITS | Encounter Summary ---
Author Organization [facility] Address [facility] [place] [address] [place] [address] Care Team Providers Care Generation Technologist Name Role Phone Sebastien Sequeira MD Primary Care Provider [phone] Encounter Details Date Type Department Care Team (Latest Contact Info) Description 06/14/2021 Travel Social History Tobacco Use Types Packs/Day [...] have Coronavirus / COVID-19? No / Unsure 06/14/2021 9:35 AM CDT documented as of this encounter Functional Status * RETIRED Are you deaf or do you have serious difficulty hearing Answer Date of Assessment Author Status No 11/19/2020 1:16 PM GUNSMITH APPRENTICE Activ e * RETIRED Are you blind or do you have serious difficulty seeing, even when wearing glasses? Answer Date of Assessment Author Status No 11/19/2020 1:16 PM GUNSMITH APPRENTICE Activ e * Do you have serious [...] on filedocumented in this encounter Care Teams Generation Technologist Relationship Specialty Start Date End Date Sebastien Sequeira MD [address] [place] [phone] PCP - General INTERNAL MEDICINE 08/02/20 documented as of this encounter
--- OUTSIDE RECORDS SUMMARY | 2024-09-13 06:33 | XMS_ITS | Encounter Summary ---
Author Organization [facility] Address [facility]6 [facility] [address] [place] [address] Care Team Providers Care Chief Design Branch Name Role Phone Stella Obrien MD Primary Care Provider [phone] Reason for Visit * Auth/Cert Specialty Diagnoses / Procedures Referred By Aaron rai Referred To Contact Diagnoses M75.100, M12.819 Procedures RECONSTR TOTAL SHOULDER IMPLANT RIGHT Reverse Total Shoulder Arthroplasty; James notified; Outpatient Status; Cardiac Clearance per Dr. Schmitz Referral ID Status Reason Start Date Expiration Date Visits Re quested Visits Authorized [id number] 1 1 Encounter Details Date Type Department Care Team (Late st Contact Info) Description 06/24/2021 7:30 AM CDT - 06/24/2021 9:[address] [facility] [place] [address] [address] Gustavo Salmeron MD [address] [place] [address] RIGHT Reverse Total Shoulder Arthroplasty Surgery Details Date/Time Status Location OR Service Patient Class Case Class Case Type Trauma Case? 06/24/2021 7:30 AM Posted [facility] OR OR 1 Orthopedics Short Stay/Outpat ient Surgery No Panel 1 Procedure LRB Anes Op Region Wound Class Comments RIGHT Reverse Total Shoulder Arthroplasty Right General/Block Shoulder Clean Surgeon Surgeon Role Service Panel Gustavo Salmeron MD Primary Orthopedics 1 Case Notes VACCINATED documented in this encounter Social History Tobacco [...] Sign Reading Time Taken Comments Blood Pressure 160/69 06/24/2021 6:53 AM CDT Pulse 82 06/24/2021 6:53 AM CDT Temperature 36.3 ??C (97.4 ??F) 06/24/2021 6:53 AM CD T Respiratory Rate 18 06/24/2021 6:53 AM CDT Oxygen Saturation 96% 06/24/2021 6:53 AM CDT Inhaled Oxygen Concentration - - Weight 133.8 kg (295 lb) 06/14/2021 9:35 AM CDT Height 177.8 cm (5' 10 ) 06/14/2021 9:35 AM CDT Body Mass Index 42.76 06/24/2021 [...] Physician Discharge Summary Patient ID: Gilma Mills [id number] 71-year-old 1950 Primary Care Physician: STELLA OBRIEN [...] functional independence. She was subsequently discharged [place] with arrangements made for physical therapy as [...] 2 (two) times daily as needed., Starting Thu02/10/2021, Historical Med EUTHYROX 125 MCG tablet Take [...] Care Everywhere. * Shoulder Replacement Discharge Instructions (Panamanian) documented in this encounter Medications at Time [...] of this encounter Progress Notes * Radha Ackerman, C CONSULTANT - 06/25/2021 3:45 PM CDT 06/25/21 1340 [...] Knutson - 06/25/2021 12:00 PM CDT 06/25/21 0846 Therapy Visit Reason for admission S/P rTSA Ordering Provider Dr. Salmeron Verified Two Patient Identifiers Yes Patient consents to therapy Yes Acute Inpatient OT Time Calculation OT Start Time 0846 OT Stop Time 0912 OT Time Calculation (min) 26 min Subjective [...] transport. She will do outpatient therapy at [facility]. She has no other discharge needs at [...] Assistance No Behavior Oriented;Cooperative Communication Talks;Understands speaking;Understands Panamanian Socioeconomic Needs Caregiver Needed No At Risk [...] expects to be discharged to: Home * ANNALEE FrankP-BC - 06/25/2021 8:01 AM CDT Daily Progress Note Patient: Gilma Mills is a 71-year-old female : 1950 Surgery date: 06/24/2021 Procedure: RIGHT Reverse Total Shoulder Arthroplasty: 34714 (CPT??) SUBJECTIVE She reports she is in [...] set her up for physical therapy in [place] for discharge outpatient therapy. Signed MUKESH FRANK [...] Physician: Painter LICONA Patient: Gilma Mills Location: Diagnosis: M75.100, M12.819 Past Medical History: Diagnosis [...] Denies any new changes ROM NT WFL Residue Furnace Operator Strength 4//5 5/5 Shoulder flexion nt/5 4+/5 [...] and all needs met. * Dominique Sultana PTA - 06/24/2021 2:53 PM CDT 06/24/21 1354 [...] Safety Call light within reach * See Kirsten Butler, PT - 06/24/2021 2:04 PM CDT [facility] Physical Therapy Inpatient Evaluation Time In: 1130 Time Out: 1145 Gilma Mills 324/01 M75.100, M12.819 Past Medical History: Diagnosis [...] sitting up in bed, pleasant and cooperative. ESCORT PATIENTS in room monitoring vitals Precautions/Restrictions: IV Avalos [...] during recuperation were discussed with the patient/family/personal site safety representative. Reasonable alternatives to the patient's proposed procedure/surgery including benefits, risks, and side effects related to the alternatives and the risks related to not receiving the proposed care were also discussed with the patient/family/personal site safety representative. Questions were answered and the patient/family/personal site safety representative verbalized understanding and desires to proceed. [...] with occasional radiation down to her RIGHT hand.History of numbness and tingling to all fingers. [...] 9:53 AM CDT Gilma Mills 1950 06/24/2021 [id number] Preop diagnosis: right shoulder rotator cuff arthropathy. [...] Salmeron MD - 06/24/2021 9:40 AM CDT [facility] Brief Op [facility] Reverse Total Shoulder Arthroplasty Procedure Note Gilma Lina 06/24/2021 0730 Procedure(s) (LRB): RIGHT Reverse Total Shoulder Arthroplasty (Right) Surgeon(s): Gustavo Salmeron MD Carcass Trimmer: Bullet Slugs Inspector: DELICIA Gresham Anesthesia: General/Block Pre-Op Diagnosis: M75.100, [...] - 16.0 G/DL 06/25/2021 5:44 AM CDT [facility] HCT 31.9(L) 36.0 - 47.0 % 06/25/2021 5:44 AM CDT [facility] 06/25/2021 5:02 AM CDT us Gustavo Salmeron MD LABORATORY Final Result [facility] [address] [place] [address], documented in this encounter Visit Diagnoses Not [...] 06/24/2021 11:22 AM CDT 75 mL/ hr sodium chloride 0.9 % 3,000 mL with gentamicin 320 mg irrigation As needed, Starting on Thu06/24/21 at 0812, Until Thu06/24/21 at 1003, Intra-Op Given 06/24/2021 8:12 A M CDT 1,500 mLs traMADol (ULTRAM) tablet 50 mg 50 mg, [...] Post-Op 0749 (Given - Provid er: Kaya Degroot, PRITI)1700 (Canceled Entry - Provider: Automatic Discharge Provider - Comment: Automatically canceled at discontinue of medication order) atorvastatin (LIPITOR) tablet 40 mg 40 mg, Oral, Daily, First dose on Thu06/24/21 at 1130, Until Discontinued, Sub for atorvastatin 1122 (Not Given - Provider: Kaya Degroot, PRITI - Reason: Patient/family declined) 0753 (Not Given - Provider: Kaya Degroot RN - Reason: Patient/family declined) busPIRone (BUSPAR) tablet 15 mg 15 mg, Oral, See admin instructions, Starting on Thu06/24/21 at 1115, Until Thu06/25/21 at 1752, Take 15 mg po twice daily prn for anxiety ceFAZolin (ANCEF) 3 g in NS 100 mL IVPB (COMPLETED) 3 g, Intravenous, at 200 mL/hr, call circuit worker, 1 dose, On Thu06/24/21 at 0700, Give [...] RN)1600 (Infusion Stop Time - Provider: Kaya Degroot RN)2301 (New Bag - Provider: Amy Miranda RN)2335 (Infusion Stop Time - Provider: Amy Miranda RN) docusate sodium (COLACE) capsule 100 mg 100 mg, Oral, 2 times daily, First dose on Thu06/24/21 at 1130, Until Discontinued, Post-Op 1122 (Not Given - Provider: Kaya Degroot RN - Reason: Patient/family declined)2015 (Given - Provider: Amy Miranda RN) 0750 (Given - Provider: Kaya Degroot RN) ezetimibe (ZETIA) tablet 10 mg 10 [...] and antacids within 4 hours of administration. 0754 (Not Given - Provider: Kaya Degroot RN [...] Amy Miranda RN - Reason: Patient/family declined) 753 (Not Given - Provider: Kaya Degroot RN - Reason: Patient/family declined) propranolol LA (INDERAL LA) 24 hr capsule 80 mg 80 mg, Oral, 2 times daily, First dose on Thu06/24/21 at 2100, Until Discontinued, Swallow capsule whole. Do not open, chew, or crush. 2009 (Not Given - Provider: Amy Miranda RN - Reason: Patient/family declined) 753 (Not Given - Provider: Kaya Degroot RN [...] PRITI)2015 (Given - Provider: Amy Miranda RN) 075 (Given - Provider: Kaya Degroot, PRITI)1333 (Given [...] Post-Op 0749 (Given - Provid er: Kaya Degorot RN)1154 (Given - Provider: Kaya Degroot, PRITI) magnesium hydroxide (MILK OF MAGNESIA) 400 MG/5ML [...] (COMPLETED) documented in this encounter Care Teams Chief Design Branch Relationship Specialty Start Date End Date Stella Obrien MD [address] [place] [address] PCP - General INTERNAL MEDICINE 08/02/20 documented as of this encounter
--- OUTSIDE RECORDS SUMMARY | 2024-09-13 06:33 | XMS_ITS | Encounter Summary ---
Author Organization [facility] Address [address] [place] [address]. [place] [address] [place] [address] Care Team Providers Care A And P Technician Name Role Phone Sebastien Sequeira MD Primary Care Provider Encounter Details Date Type Department Care Team (Late st Contact Info) Description 07/02/2021 Orders Only [facility] [address], [facility] [address] [place] [address] Gustavo So MD [address] [place], [place] [id number] Social History Tobacco Use Types Packs/Day Years [...] By: Michele Rodríguez DO, 07/05/2021 10:08 PM Gustavo So MD GENERAL IMAGING Final Result documented in this encounter Visit Diagnoses Diagnosis Aftercare- Primary Unspecified aftercare Aftercare Unspecified aftercare documented in this encounter Care Teams A And P Technician Relationship Specialty Start Date End Date Sebastien Sequeira MD [address] [place] [address] PCP - General INTERNAL MEDICINE 08/02/20 documented as of this encounter
--- OUTSIDE RECORDS SUMMARY | 2024-09-13 06:34 | XMS_ITS | Encounter Summary ---
Author Organization [facility] Address [facility] [facility] [place] [address] [place] [address] Care Team Providers Care Brim Blocker Name Role Phone Sebastien Sequeira MD Primary Care Provider [phone] Reason for Referral * Surgical (Routine) - Closed Specialty Diagnoses / Procedures Referred By Aaron t Referred To Contact Procedures Case request operating room: RIGHT Reverse Total Shoulder ArthroplastyNate notifiedOutpatient StatusCardiac Clearance per Gustavo Ornelas MD [address] [place] [address] Phone: tel: fax: Referral ID Status Reason Start Date Expiration Date Visits Re quested Visits Authorized [id number] Closed 05/29/2021 06/28/2022 1 1 Encounter Details Date Type Department Care Team (Late st Contact Info) Description 05/29/2021 Prep for Procedure [facility] [address], [facility] 1 [place] [id number] Gustavo So MD [address] [place] [address] Social History Tobacco Use Types Packs/Day Years [...] have Coronavirus / COVID-19? No / Unsure 05/29/2021 1:58 PM CDT documented as of this encounter Functional Status * RETIRED Are you deaf or do you have serious difficulty hearing Answer Date of Assessment Author Status No 11/19/2020 1:16 PM DIMENSION STONE QUARRY SUPERVISOR Activ e * RETIRED Are you blind or do you have serious difficulty seeing, even when wearing glasses? Answer Date of Assessment Author Status No 11/19/2020 1:16 PM DIMENSION STONE QUARRY SUPERVISOR Activ e * Do you have serious difficulty walking or climbing stairs? Answer Date of Assessment Author Status Yes 11/19/2020 1:16 PM DIMENSION STONE QUARRY SUPERVISOR Nory Whitaker R N Active * Do you have difficulty dressing or bathing? Answer Date of Assessment Author Status No 11/19/2020 1:16 PM DIMENSION STONE QUARRY SUPERVISOR Nory Whitaker R N Active * Because of a physical, mental, or emotional condition, do you have difficulty doing errands alone such as visiting a doctor's office or shopping? Answer Date of Assessment Author Status No 11/19/2020 1:16 PM DIMENSION STONE QUARRY SUPERVISOR Nory Whitaker R N Active documented as of this encounter Mental Status * Because of a physical, mental, or emotional condition, do you have serious difficulty concentrating, remembering, or making decisions? Answer Entry Date Author Status No 11/19/2020 1:16 PM Nory Barron R N Active documented in this encounter Plan of Treatment Scheduled Orders Name Type Priority Associated Diagnoses Order Schedule Case request operating room: RIGHT Reverse Total Shoulder ArthroplastyNate notifiedOutpatient StatusCardiac Clearance per Dr. Schmitz Case Request Routine Once for 1 Occurrences starting 05/29/2021 until 05/29/2021 documented as of this encounter Goals Goal Patient Goal Type Associated Problems Recent Progress Patient-Stated? Author Safety - able to safely ambulate at home; tripping hazards removed from the home General No Soraida, Krystal L, RN Note: Pt wants to go home safely with new walker. Pt made aware that therapy will work with her on safety. documented as of this encounter Results * (ABNORMAL) URINALYSIS WI REFLEX TO CULTURE (06/12/2021 9:56 AM CDT) COLOR (U) YELLOW 06/12/2021 10:19 AM CDT [facility] TRANSPARENCY CLEAR 06/12/2021 10:19 AM CDT [facility] SPECIFIC GRAVITY (U) 1.030(H) 1.000 - 1.025 06/12/2021 10:19 AM CDT [facility] Comment:EQUAL TO OR GREATER THAN U PH 6.0 5.0 - 8.0 06/12/2021 10:19 AM CDT [facility] LEUKOCYTES (U) NEGATIVE NEGATIVE 06/12/2021 10:19 AM CDT [facility] NITRITES NEGATIVE NEGATIVE 06/12/2021 10:19 AM CDT [facility] PROTEIN (U) 1+(A) NEGATIVE 06/12/2021 10:19 AM CDT [facility] URINE GLUCOSE NEGATIVE NEGATIVE 06/12/2021 10:19 AM CDT [facility] KETONES MG/DL (U) NEGATIVE NEGATIVE 06/12/2021 10:19 AM CDT [facility] UROBILINOGEN 0.2 <1.0 EU/DL 06/12/2021 10:19 AM CDT [facility] BILIRUBIN (U) NEGATIVE NEGATIVE 06/12/2021 10:19 AM CDT [facility] BLOOD (U) NEGATIVE NEGATIVE 06/12/2021 10:19 AM CDT [facility] WBC/HPF RARE(A) 0 - 5 /HPF 06/12/2021 10:19 AM CDT [facility] EPI/HPF RARE /LPF 06/12/2021 10:19 AM CDT [facility] BACTERIA (U) TRACE /HPF 06/12/2021 10:19 AM CDT [facility] MUCUS PRESENT 06/12/2021 10:19 AM CDT [facility] CULTURE & SENSITIVITY INDICATED? NOT INDICATED 06/12/2021 10:20 AM CDT [facility] URINE SPECIMEN OBTAINED BY CLEAN CATCH PROCEDURE / Unknown 06/12/2021 9:56 AM CDT us Gustavo So MD URINE ORDERABLES Final Result Performing Organization Address City/[facility]/ZIP Co de Phone Number [facility] [address] [place] [address], * MRSA SCREENING (06/12/2021 9:51 AM CDT) SPEC DESCRIPTION NASAL 06/12/2021 9:45 AM CDT [facility] SPECIAL REQUESTS NO SPECIAL REQUEST 06/12/2021 9:45 AM CDT [facility] RESULT Negative by Rapid PCR for Methicillin Resistant Staphylococcus aureus 06/12/2021 9:38 PM CDT [facility] SPECIMEN FROM INTERNAL NOSE / Unknown 06/12/2021 9:51 AM CDT 06/12/2021 9:53 AM CDT us Gustavo So MD MICROBIOLOGY - GENERAL ORDERAB LES Final Result Performing Organization Address City/[facility]/ZIP Co de Phone Number [facility] [address] [place] [address], [place] [phone] [facility] [address] [place] [address], * (ABNORMAL) CBC W/DIFF AUTOMATED (06/12/2021 9:50 AM CDT) WBC 6.1 4.0 - 10.8 x10'3/uL 06/12/2021 10:01 AM CDT [facility] RBC 4.26 4.10 - 5.40 x10'6/uL 06/12/2021 10:01 AM CDT [facility] HGB 10.5(L) 12.0 - 16.0 G/DL 06/12/2021 10:01 AM CDT [facility] HCT 35.7(L) 36.0 - 47.0 % 06/12/2021 10:01 AM CDT [facility] MCV 83.8 78.0 - 100.0 FL 06/12/2021 10:01 AM CDT [facility] MCH 24.6(L) 27.0 - 31.0 PG 06/12/2021 10:01 AM CDT [facility] MCHC 29.4(L) 33.0 - 36.0 G/DL 06/12/2021 10:01 AM CDT [facility] RDW 17.2(H) 11.5 - 14.5 % 06/12/2021 10:01 AM CDT [facility] PLT 244 150 - 350 x10'3/uL 06/12/2021 10:01 AM CDT [facility] MPV 8.9 7.4 - 10.4 FL 06/12/2021 10:01 AM CDT [facility] DIFFERENTIAL COMMENT NORMAL REFERENCE RANGE NOT ESTABLISHED FOR THE PROPORTIONAL LEUKOCYTE DIFFERENTIAL. 06/12/2021 10:01 AM CDT [facility] SEG NEUTROPHILS 65.0 % 10:01 AM CDT [facility] LYMPHOCYTES 20.9 % 06/12/2021 10:01 AM CDT [facility] MONOCYTES 7.6 % 06/12/2021 10:01 AM CDT [facility] EOSINOPHILS 5.6 % 06/12/2021 10:01 AM CDT [facility] BASOPHILS 0.7 % 06/12/2021 10:01 AM CDT [facility] IMMATURE GRANS % 0.2 % 06/12/20 10:01 AM CDT [facility] NRBC 0.0 % 06/12/2021 10:01 AM CDT [facility] ABS. NEUTROPHILS 3.95 1.60 - 8.30 x10'3/uL 06/12/2021 10:01 AM CDT [facility] ABS. LYMPHOCYTES 1.27 0.80 - 4.70 x10'3/uL 06/12/2021 10:01 AM CDT [facility] ABS. MONOCYTES 0.46 0.00 - 1.50 x10'3/uL 06/12/2021 10:01 AM CDT [facility] ABS. EOSINOPHILS 0.34 0.00 - 0.40 x10'3/uL 06/12/2021 10:01 AM CDT [facility] ABS. BASOPHILS 0.04 0.00 - 0.20 x10'3/uL 06/12/2021 10:01 AM CDT [facility] ABS. IMMATURE GRANULOCYTES 0.01 0.00 - 0.03 x10'3/uL 06/12/2021 10:01 AM CDT [facility] ABS. NUCLEATED RBC'S 0.00 0.00 x10'3/uL 06/12/2021 10:01 AM CDT [facility] 06/12/2021 9:50 AM CDT Gustavo So MD LABORATORY Final Result [facility] [address] [place] [address], * (ABNORMAL) BASIC METABOLIC PANEL (06/12/2021 9:50 AM CDT) SODIUM S/P/B 144 136 - 145 MMOL/L 06/12/2021 10:17 AM CDT [facility] POTASSIUM S/P/B 3.9 3.5 - 5.1 MMOL/L 06/12/2021 10:17 AM CDT [facility] CHLORIDE S/P/B 107 98 - 107 MMOL/L 06/12/2021 10:17 AM CDT [facility] CO2 29.7 21.0 - 32.0 MMOL/L 06/12/2021 10:17 AM [facility] GLUCOSE 129(H) 70 - 99 MG/DL 06/12/2021 10:17 AM [facility] Comment: FASTING GLUCOSE 100 TO 125 MG/DL IS CONSISTENT WITH IMPAIRED FASTING GLUCOSE. FASTING GLUCOSE >125 MG/DL IS CONSISTENT WITH DIABETES. RANDOM GLUCOSE >200 MG/DL WITH HYPERGLYCEMIC SYMPTOMS IS CONSISTENT WITH DIABETES. PER ADA GUIDELINES BUN 13 6 - 24 MG/DL 06/12/2021 10:17 AM [facility] CREATININE S/P/B 0.87 0.55 - 1.02 MG/DL 06/12/2021 10:17 AM [facility] CALCIUM S/P/B 8.7 8.4 - 10.5 MG/DL 06/12/2021 10:17 AM [facility] ANION GAP 7.3 5.0 - 15.0 MMOL/L 06/12/2021 10:17 AM [facility] OSMOLALITY (CALC) 300 MOSM/KG 021 10:17 AM [facility] Comment:REFERENCE RANGE NOT ESTABLISHED EGFR NON-AFR. AMER. 67(L) >89 ML/MIN/1. 73 M2 06/12/2021 10:17 AM [facility] EGFR AFR. AMER. 78(L) >89 ML/MIN/1. 73 M2 06/12/2021 10:17 AM [facility] GFR NOTES GFR REFERENCE S: 06/12/2021 10:17 AM [facility] Comment: THE ESTIMATED GFR IS CALCULATED USING THE 2009 CKD-EPI EQUATION. THE FOLLOWING CATEGORIES FOR GRADING RENAL FUNCTION ARE RECOMMENDED BY THE INTERNATIONAL SOCIETY OF NEPHROLOGY (KDIGO 2012 CLINICAL PRACTICE GUIDELINE). G1,NORMAL OR HIGH: >89 ml/min/1.73 m2 G2,MILDLY DECREASED: 60-89 ml/min/1.73 m2 G3A,MILDLY TO MODERATELY DECREASED: 45-59 ml/min/1.73 m2 G3B,MODERATELY TO SEVERELY DECREASED: 30-44 ml/min/1.73 m2 G4,SEVERELY DECREASED: 15-29 ml/min/1.73 m2 G5,KIDNEY FAILURE: <15 ml/min/1.73 m2 06/12/2021 9:50 AM CDT us Gustavo So MD LABORATORY Final Result [facility] [address] [place] [address], documented in this encounter Visit Diagnoses Diagnosis Osteoarthritis of glenohumeral joint, right- Primary Rotator cuff tear arthropathy, unspecified laterality Chronic right shoulder pain Pain in joint, shoulder region documented in this encounter Care Teams Brim Blocker Relationship Specialty Start Date End Date Sebastien Sequeira MD [address] [place] [address] PCP - General INTERNAL MEDICINE 08/02/20 documented as of this encounter
--- OUTSIDE RECORDS SUMMARY | 2024-09-13 06:34 | XMS_ITS | Encounter Summary ---
Author Organization [facility] Address [address] [place] [address]. [place] [address] [place] [address] Care Team Providers Care Oyster Floater Name Role Phone Sebastien Sequeira MD Primary Care Provider [phone] Reason for Visit * Reason Onset Date Comments Appointment Request 12/13/[address] Davis 12/19/2020 @ 2:00 Encounter Details Date Type Department Care Team (Late st Contact Info) Description 12/13/2020 Telephone [facility] [place] [phone] Minerva Hendrickson, RN Appointment Request (Appointment with Dr. Davis 12/19/2020 @ 2:00) Social History Tobacco Use Types Packs/Day Years [...] have Coronavirus / COVID-19? No / Unsure 12/12/2020 4:15 PM CDT documented as of this encounter Functional Status * RETIRED Are you deaf or do you have serious difficulty hearing Answer Date of Assessment Author Status No 11/19/2020 1:16 PM WORKERS COMPENSATION CLAIMS ASSISTANT Activ e * RETIRED Are you blind or do you have serious difficulty seeing, even when wearing glasses? Answer Date of Assessment Author Status No 11/19/2020 1:16 PM WORKERS COMPENSATION CLAIMS ASSISTANT Activ e * Do you have serious difficulty walking or climbing stairs? Answer Date of Assessment Author Status Yes 11/19/2020 1:16 PM WORKERS COMPENSATION CLAIMS ASSISTANT Nory Wihtaker R Milind Active * Do you have difficulty dressing or bathing? Answer Date of Assessment Author Status No 11/19/2020 1:16 PM WORKERS COMPENSATION CLAIMS ASSISTANT Nory Whitaker R N Active * Because of a physical, mental, or emotional condition, do you have difficulty doing errands alone such as visiting a doctor's office or shopping? Answer Date of Assessment Author Status No 11/19/2020 1:16 PM WORKERS COMPENSATION CLAIMS ASSISTANT Nory Whitaker R N Active documented as of this encounter Mental Status * Because of a physical, mental, or emotional condition, do you have serious difficulty concentrating, remembering, or making decisions? Answer Entry Date Author Status No 11/19/2020 1:16 PM WORKERS COMPENSATION CLAIMS ASSISTANT Nory Whitaker R N Active documented in this encounter Progress Notes * Minerva Hendrickson RN - 12/13/2020 8:30 AM CDT Patient aware of her appointment next Thursday. She verbalizes understanding and denies any additional questions. documented in this encounter Plan of Treatment [...] on filedocumented in this encounter Care Teams Oyster Floater Relationship Specialty Start Date End Date Sebastien Sequeira MD [address] [place] [phone] PCP - General INTERNAL MEDICINE 08/02/20 documented as of this encounter
--- OUTSIDE RECORDS SUMMARY | 2024-09-13 06:34 | XMS_ITS | Encounter Summary ---
Author Organization [facility] Address Count includes the [facility] [place] [address] [place] [address] Care Team Providers Care Ad Taker Name Role Phone Sebastien Sequeira MD Primary Care Provider [phone] Reason for Visit * Reason Comments Follow Up Back Pain Encounter Details Date Type Department Care Team (Latest Contact Info) Description 02/08/2021 8:05 AM CDT Office Visit [facility] [place] [phone] Ad Davis III, MD [address] [place] [address] Follow Up; Back Pain Social History Tobacco Use Types Packs/Day Years [...] have Coronavirus / COVID-19? No / Unsure 02/08/2021 7:53 AM CDT documented as of this encounter Functional Status * RETIRED Are you deaf or do you have serious difficulty hearing Answer Date of Assessment Author Status No 11/19/2020 1:16 PM LINUX PROGRAMMER Activ e * RETIRED Are you blind or do you have serious difficulty seeing, even when wearing glasses? Answer Date of Assessment Author Status No 11/19/2020 1:16 PM LINUX PROGRAMMER Activ e * Do you have serious difficulty walking or climbing stairs? Answer Date of Assessment Author Status Yes 11/19/2020 1:16 PM LINUX PROGRAMMER Nory Whitaker R N Active * Do you have difficulty dressing or bathing? Answer Date of Assessment Author Status No 11/19/2020 1:16 PM LINUX PROGRAMMER Nory Whitaker R N Active * Because of a physical, mental, or emotional condition, do you have difficulty doing errands alone such as visiting a doctor's office or shopping? Answer Date of Assessment Author Status No 11/19/2020 1:16 PM LINUX PROGRAMMER Nory Whitaker R N Active documented as of this encounter Mental Status * Because of a physical, mental, or emotional condition, do you have serious difficulty concentrating, remembering, or making decisions? Answer Entry Date Author Status No 11/19/2020 1:16 PM LINUX PROGRAMMER Nory Whitaker R Milind Active documented in this encounter Progress Notes * Aissatou Cline CNA - 02/08/2021 8:05 AM CDT See [employer] Launch Commander for Dr. Davis's progress note. documented in this encounter Plan of Treatment [...] as of this encounter Visit Diagnoses Diagnosis Radiculopathy, lumbar region- Primary Thoracic or lumbosacral neuritis or radiculitis, unspecified documented in this encounter Care Teams Ad Taker Relationship Specialty Start Date End Date Sebastien Sequeira MD [address] [place] [phone] PCP - General INTERNAL MEDICINE 08/02/20 documented as of this encounter
--- OUTSIDE RECORDS SUMMARY | 2024-09-13 06:34 | XMS_ITS | Encounter Summary ---
Author Organization [facility] Address [address] [place] [address]. [place] [address] [place] [address] Care Team Providers Care Salesperson Florist Supplies Name Role Phone Sebastien Sequeira MD Primary Care Provider [phone] Encounter Details Date Type Department Care Team (Latest Contact Info) Description 01/16/2021 1:20 PM CDT - 01/16/2021 11:59 PM CDT Hospital Encounter [facility] [address] [place] [address] Gustavo So MD [address] [place] [address] Discharge Disposition: Home or Self [...] have Coronavirus / COVID-19? No / Unsure 01/16/2021 1:18 PM CDT documented as of this encounter Functional Status * RETIRED Are you deaf or do you have serious difficulty hearing Answer Date of Assessment Author Status No 11/19/2020 1:16 PM PVC LOADER Activ e * RETIRED Are you blind or do you have serious difficulty seeing, even when wearing glasses? Answer Date of Assessment Author Status No 11/19/2020 1:16 PM PVC LOADER Acti ve * Do you have serious difficulty walking or climbing stairs? Answer Date of Assessment Author Status Yes 11/19/2020 1:16 PM PVC LOADER Nory Whitaker R N Active * Do you have difficulty dressing or bathing? Answer Date of Assessment Author Status No 11/19/2020 1:16 PM PVC LOADER Nory Whitaker R N Active * Because of a physical, mental, or emotional condition, do you have difficulty doing errands alone such as visiting a doctor's office or shopping? Answer Date of Assessment Author Status No 11/19/2020 1:16 PM PVC LOADER Nory Whitaker R N Active documented as [...] total) by mouth as needed. 01/14/2020 08/18/2023 oxyCODONE-acetami nophen 5-325 MG tabletIndications :Chronic Pain Take 1 tablet by mouth every 4 (four) hours as needed. Indications: Chronic Pain 30 tablet 12/26/2020 05/29/2021 pregabalin 200 MG capsule Take 200 mg [...] Name Priority Date/Time Associated Diagnosis Comments XR PELVIS AP+RT HIP 1V Routine 01/16/2021 1:57 PM CDT Aftercare documented in this encounter Results * XR PELVIS AP+RT HIP 1V (01/16/2021 1:57 PM CDT) Anatomical Region Laterality Modality Pelvis, Hip Radiographic Charlotte ging 01/16/2021 2:53 PM CDT Impressions 01/16/2021 2:54 PM CDT IMPRESSION: 1) Right hip arthroplasty without evidence of complication. Referred By: GUSTAVO SO Interpreted By: aHrshal Marie MD, 01/16/2021 2:53 PM Narrative 01/16/2021 2:54 PM CDT Examination: XR PELVIS AP+RT HIP 1V Exam time: 01/16/2021 1:57 PM Clinical history: Right hip pain, right hip arthroplasty postop check Comparison: 01/02/2021 Technique: AP pelvis, standing AP and oblique views right hip Findings: Total right hip arthroplasty. No evidence of soft tissue abnormalities. No evidence of complication involving hardware. No evidence to suggest acute fracture. Procedure Note Harshal Marie MD - 01/16/2021 Examination: XR PELVIS AP+RT HIP 1V Exam time: 01/16/2021 1:57 PM Clinical history: Right hip pain, right hip arthroplasty postop check Comparison: 01/02/2021 Technique: AP pelvis, standing AP and oblique views right hip Findings: Total right hip arthroplasty. No evidence of soft tissue abnormalities. No evidence of complication involving hardware. Noevidence to suggest acute fracture. IMPRESSION: 1) Right hip arthroplasty without evidence of complication. Referred By: GUSTAVO SO Interpreted By: Harshal Marie MD, 01/16/2021 2:53 PM Gustavo So MD GENERAL IMAGING Final Result documented in this encounter Visit Diagnoses Diagnosis Aftercare Unspecified aftercare documented in this encounter Care Teams Salesperson Florist Supplies Relationship Specialty Start Date End Date Sebastien Sequeira MD [address] [place] [phone] PCP - General INTERNAL MEDICINE 08/02/20 documented as of this encounter
--- OUTSIDE RECORDS SUMMARY | 2024-09-13 06:34 | XMS_ITS | Encounter Summary ---
Author Organization [facility] Address [address] [place] [address]. [place] [address] [place] [address] Care Team Providers Care English Teacher Name Role Phone Sebastien Sequeira MD Primary Care Provider [phone] Encounter Details Date Type Department Care Team (Late st Contact Info) Description 05/28/2021 Orders Only [facility] [address], [facility] 1 [address] Gustavo So MD [address] [place], [place] [id number] Social History Tobacco Use Types Packs/Day Years [...] Assessment Author Status No 11/19/2020 1:16 PM ELECTRONIC CONTROLS REPAIRER SUPERVISOR Activ e * RETIRED Are you blind or do you have serious difficulty seeing, even when wearing glasses? Answer Date of Assessment Author Status No 11/19/2020 1:16 PM ELECTRONIC CONTROLS REPAIRER SUPERVISOR Activ e * Do you have serious difficulty walking or climbing stairs? Answer Date of Assessment Author Status Yes 11/19/2020 1:16 PM ELECTRONIC CONTROLS REPAIRER SUPERVISOR Nory Whitaker R N Active * Do you have difficulty dressing or bathing? Answer Date of Assessment Author Status No 11/19/2020 1:16 PM ELECTRONIC CONTROLS REPAIRER SUPERVISOR Nory Whitaker R N Active * [...] Date Author Status No 11/19/2020 1:16 PM ELECTRONIC CONTROLS REPAIRER SUPERVISOR Nory Whitaker R N Active documented in [...] on filedocumented in this encounter Care Teams English Teacher Relationship Specialty Start Date End Date Sebastien Sequeira MD [address] [place] [address] PCP - General INTERNAL MEDICINE 08/02/20 documented as of this encounter
--- OUTSIDE RECORDS SUMMARY | 2024-09-13 06:34 | XMS_ITS | Encounter Summary ---
Author Organization [facility] Address [facility] [place] [address] [place] [address] Care Team Providers Care Building Superintendent Name Role Phone Sebastien Sequeira MD Primary Care Provider [phone] Encounter Details Date Type Department Care Team (Latest Contact Info) Description 05/29/2021 2:36 PM CDT - 05/29/2021 11:59 PM CDT Hospital Encounter [facility] [address] [place] [address] Gustavo So MD [address] [place] [address] Discharge Disposition: Home or Self [...] Assessment Author Status No 11/19/2020 1:16 PM VEHICLE PAINTER Activ e * RETIRED Are you blind or do you have serious difficulty seeing, even when wearing glasses? Answer Date of Assessment Author Status No 11/19/2020 1:16 PM VEHICLE PAINTER Activ e * Do you have serious [...] Comments XR PELVIS AP+RT HIP 1V Routine 05/29/2021 2:51 PM CDT History of total right hip arthroplasty documented in this encounter Results * XR PELVIS AP+RT HIP 1V (05/29/2021 2:51 PM CDT) Anatomical Region Laterality Modality Pelvis, Hip Radiographic Charlotte ging 05/29/2021 5:45 PM CDT Impressions 05/29/2021 5:46 PM CDT IMPRESSION: 1) Bilateral hip prosthesis. No acute bony abnormalities or malalignment. No significant change compared to prior radiograph. Referred By: GUSTAVO SO Interpreted By: Rafy Louis MD, 05/29/2021 5:45 PM Narrative 05/29/2021 5:46 PM CDT Examination: XR PELVIS AP+RT HIP 1V Exam time: 05/29/2021 2:51 PM Clinical history: Right hip pain. Comparison: Previous radiographs February 2021. Technique: Single view pelvis and 2 views right foot. Findings: There is a right hip prosthesis in place. No malalignment or acute bony abnormalities. On the left side there is also prosthesis. No acute bony abnormalities on the left. Procedure Note Rafy Louis MD - 05/29/2021 Examination: XR PELVIS AP+RT HIP 1V Exam time: 05/29/2021 2:51 PM Clinical history: Right hip pain. Comparison: Previous radiographs February 2021. Technique: Single view pelvis and 2 views right foot. Findings: There is a right hip prosthesis in place. No malalignment oracute bony abnormalities. On the left side there is also prosthesis. Noacute bony abnormalities on the left. IMPRESSION: 1) Bilateral hip prosthesis. No acute bony abnormalities or malalignment.No significant change compared to prior radiograph. Referred By: GUSTAVO SO Interpreted By: Rafy Louis MD, 05/29/2021 5:45 PM Gustavo So MD GENERAL IMAGING Final Result documented in this encounter Visit Diagnoses Diagnosis History of total right hip arthroplasty documented in this encounter Care Teams Building Superintendent Relationship Specialty Start Date End Date Sebastien Sequeira MD [address] [place] [address] PCP - General INTERNAL MEDICINE 08/02/20 documented as of this encounter
--- OUTSIDE RECORDS SUMMARY | 2024-09-13 06:34 | XMS_ITS | Encounter Summary ---
Author Organization [facility] Address [address] [place] [address]. [place] [address] [place] [address] Care Team Providers Care Resin Remover Name Role Phone Sebastien Sequeira MD Primary Care Provider [phone] Encounter Details Date Type Department Care Team (Late st Contact Info) Description 12/24/2020 Orders Only [facility] [address], [facility] 1 [place] [address] Gustavo So MD [address] [place], [place] [id number] Social History Tobacco Use Types Packs/Day Years [...] Assessment Author Status No 11/19/2020 1:16 PM CALIBRATION SPECIALIST Activ e * RETIRED Are you blind or do you have serious difficulty seeing, even when wearing glasses? Answer Date of Assessment Author Status No 11/19/2020 1:16 PM CALIBRATION SPECIALIST Activ e * Do you have serious difficulty walking or climbing stairs? Answer Date of Assessment Author Status Yes 11/19/2020 1:16 PM Nory Barron R N Active * Do you have difficulty dressing or bathing? Answer Date of Assessment Author Status No 11/19/2020 1:16 PM CALIBRATION SPECIALIST Nory Whitaker R N Active * Because [...] as of this encounter Results * XR PELVIS AP+RT HIP 1V (12/26/2020 2:46 PM CDT) Anatomical Region Laterality Modality Pelvis, Hip Radiographic Charlotte ging 12/26/2020 6:46 PM CDT Impressions 12/26/2020 6:48 PM CDT IMPRESSION: 1) Stable appearance of the hip prosthesis. 2. No acute bony abnormalities or malalignment. Referred By: GUSTAVO SO Interpreted By: Rafy Louis MD, 12/26/2020 6:46 PM Narrative 12/26/2020 6:48 PM CDT Examination: XR PELVIS AP+RT HIP 1V Exam time: 12/26/2020 2:46 PM Clinical history: Follow-up right hip replacement. Comparison: Previous from 11/30/2020 Technique: Single view pelvis and 2 views right hip. Findings: On the right side again noted is total hip replacement. The position of the prosthesis is stable with no acute bony abnormalities or loosening. On the left side there is hemiarthroplasty with stable appearance of the prosthesis. Procedure Note Rafy Louis MD - 12/26/2020 Examination: XR PELVIS AP+RT HIP 1V Exam time: 12/26/2020 2:46 PM Clinical history: Follow-up right hip replacement. Comparison: Previous from 11/30/2020 Technique: Single view pelvis and 2 views right hip. Findings: On the right side again noted is total hip replacement. The position of the prosthesis is stable with no acute bony abnormalities or loosening. On the left side there is hemiarthroplasty with stable appearance of the prosthesis. IMPRESSION: 1) Stable appearance of the hip prosthesis. 2. No acute bony abnormalities or malalignment. Referred By: GUSTAVO SO Interpreted By: Rafy Louis MD, 12/26/2020 6:46 PM Gustavo So MD GENERAL IMAGING Final Result documented in this encounter Visit Diagnoses Diagnosis Status post right hip replacement- Primary Hip joint replacement by other means Status post right hip replacement Hip joint replacement by other means documented in this encounter Care Teams Resin Remover Relationship Specialty Start Date End Date Sebastien Sequeira MD [address] [place] [address] PCP - General INTERNAL MEDICINE 08/02/20 documented as of this encounter
--- OUTSIDE RECORDS SUMMARY | 2024-09-13 06:34 | XMS_ITS | Encounter Summary ---
Author Organization [facility] Address [facility] [place] [address] [place] [address] Care Team Providers Care Commercial Airline Pilot Name Role Phone Sebastien Sequeira MD Primary Care Provider [phone] Encounter Details Date Type Department Care Team (Latest Contact Info) Description 11/30/2020 Travel Social History Tobacco Use Types Packs/Day [...] have Coronavirus / COVID-19? No / Unsure 11/30/2020 10:11 AM CDT documented as of this encounter Functional Status * RETIRED Are you deaf or do you have serious difficulty hearing Answer Date of Assessment Author Status No 11/19/2020 1:16 PM GUMMING MACHINE OPERATOR Acti ve * RETIRED Are you blind or do you have serious difficulty seeing, even when wearing glasses? Answer Date of Assessment Author Status No 11/19/2020 1:16 PM GUMMING MACHINE OPERATOR Activ e * Do you have serious [...] on filedocumented in this encounter Care Teams Commercial Airline Pilot Relationship Specialty Start Date End Date Sebastien Sequeira MD [address] [place] [phone] PCP - General INTERNAL MEDICINE 08/02/20 documented as of this encounter
--- OUTSIDE RECORDS SUMMARY | 2024-09-13 06:34 | XMS_ITS | Encounter Summary ---
Author Organization [facility] Address [address] [place] [address]. [place] [address] [place] [address] Care Team Providers Care Waste Examiner Name Role Phone Sebastien Sequeira MD Primary Care Provider [phone] Reason for Visit * Reason Comments Follow Up Lumbar Spine Encounter Details Date Type Department Care Team (Latest Contact Info) Description 05/10/2021 8:45 AM CDT Office Visit [place] [phone] Ad Davis III, MD [address] [place] [address] Follow Up (Lumbar Spine) Social History Tobacco Use Types Packs/Day Years [...] have Coronavirus / COVID-19? No / Unsure 05/10/2021 8:22 AM CDT documented as of this encounter Functional Status * RETIRED Are you deaf or do you have serious difficulty hearing Answer Date of Assessment Author Status No 11/19/2020 1:16 PM MEASUREMENT COORDINATOR Activ e * RETIRED Are you blind or do you have serious difficulty seeing, even when wearing glasses? Answer Date of Assessment Author Status No 11/19/2020 1:16 PM MEASUREMENT COORDINATOR Activ e * Do you have serious difficulty walking or climbing stairs? Answer Date of Assessment Author Status Yes 11/19/2020 1:16 PM Nory Barron RN Active * Do you have difficulty dressing or bathing? Answer Date of Assessment Author Status No 11/19/2020 1:16 PM MEASUREMENT COORDINATOR Nory Whitaker R N Active * Because [...] Progress Notes * Aissatou Cline CNA - 05/10/2021 8:45 AM CDT See Office Machine Service Supervisor for Dr. Davis's progress note. documented in [...] unspecified documented in this encounter Care Teams Waste Examiner Relationship Specialty Start Date End Date Sebastien Sequeira MD [address] [place] [phone] PCP - General INTERNAL MEDICINE 08/02/20 documented as of this encounter
--- OUTSIDE RECORDS SUMMARY | 2024-09-13 06:34 | XMS_ITS | Encounter Summary ---
Author Organization [facility] Address [facility] [place] [address] [place] [address] Care Team Providers Care Match Up Person Name Role Phone Sebastien Sequeira MD Primary Care Provider [phone] Encounter Details Date Type Department Care Team (Latest Contact Info) Description 11/12/2020 Travel Social History Tobacco Use Types Packs/Day [...] have Coronavirus / COVID-19? No / Unsure 11/12/2020 9:40 AM TELECOMMUNICATION EQUIPMENT REPAIRER documented as of this encounter Plan of [...] on filedocumented in this encounter Care Teams Match Up Person Relationship Specialty Start Date End Date Sebastien Sequeira MD [address] [place] [address] PCP - General INTERNAL MEDICINE 08/02/20 documented as of this encounter
--- OUTSIDE RECORDS SUMMARY | 2024-09-13 06:34 | XMS_ITS | Encounter Summary ---
Author Organization [facility] Address [facility] [place] [address] [place] [address] Care Team Providers Care Substation Wireman Name Role Phone Sebastien Sequeira MD Primary Care Provider Encounter Details Date Type Department Care Team (Latest Contact Info) Description 02/19/2021 Travel Social History Tobacco Use Types Packs/Day [...] have Coronavirus / COVID-19? No / Unsure 02/19/2021 8:57 AM CDT documented as of this encounter Functional Status * RETIRED Are you deaf or do you have serious difficulty hearing Answer Date of Assessment Author Status No 11/19/2020 1:16 PM PHARMACY ASSISTANT Activ e * RETIRED Are you blind or do you have serious difficulty seeing, even when wearing glasses? Answer Date of Assessment Author Status No 11/19/2020 1:16 PM PHARMACY ASSISTANT Activ e * Do you have [...] on filedocumented in this encounter Care Teams Substation Wireman Relationship Specialty Start Date End Date Sebastien Sequeira MD [address] [place] [phone] PCP - General INTERNAL MEDICINE 08/02/20 documented as of this encounter
--- OUTSIDE RECORDS SUMMARY | 2024-09-13 06:34 | XMS_ITS | Encounter Summary ---
Author Organization [facility] Address [address] [place] [address]. [place] [address] [place] [address] Care Team Providers Care Supervisor Inspection Room Name Role Phone Sebastien Sequeira MD Primary Care Provider [phone] Encounter Details Date Type Department Care Team (Late st Contact Info) Description 01/02/2021 2:00 PM CDT - 01/02/2021 11:59 PM CDT Hospital Encounter [facility] Diagnostic Imaging [address] [place] [address] Daniel Garcia, MACHINE SHOP APPRENTICE- [address] [place] [address] Discharge Disposition: Home or Self Care (Routine [...] have Coronavirus / COVID-19? No / Unsure 01/02/2021 2:00 PM CDT documented as of this encounter Functional Status * RETIRED Are you deaf or do you have serious difficulty hearing Answer Date of Assessment Author Status No 11/19/2020 1:16 PM MOTION PI[employer]URE ACTOR Activ e * RETIRED Are you blind or do you have serious difficulty seeing, even when wearing glasses? Answer Date of Assessment Author Status No 11/19/2020 1:16 PM MOTION PICTURE ACTOR Activ e * Do you have serious [...] mg total) by mouth every morning. 05/24/2020 ALPRAZolam 0.25 MG tablet Take 1 tablet by mouth every 8 (eight) hours as needed. 05/25/2020 01/16/2021 busPIRone 15 MG tablet Take 1 tablet [...] 1 tablet by mouth daily. 01/20/2020 10/09/2021 documented as of this encounter Plan of [...] Comments XR PELVIS AP+RT HIP 1V Routine 01/02/2021 2:12 PM CDT Status post right hip replacement documented in this encounter Results * XR PELVIS AP+RT HIP 1V (01/02/2021 2:12 PM CDT) Anatomical Region Laterality Modality Pelvis, Hip Radiographic Charlotte ging 01/02/2021 6:27 PM CDT Impressions 01/02/2021 6:29 PM CDT IMPRESSION: 1) Hip prosthesis in place with no malalignment or acute bony abnormalities. Referred By: DANIEL GARCIA Interpreted By: Rafy Louis MD, 01/02/2021 6:27 PM Narrative 01/02/2021 6:29 PM CDT Examination: XR PELVIS AP+RT HIP 1V Exam time: 01/02/2021 2:05 PM Clinical history: Trauma. Pain. Comparison: Previous studies were performed December 26, 2020 Technique: Single view pelvis and 2 views right foot Findings: There is a right hip prosthesis. It is in place. No acute bony abnormalities. The pubic bone is intact. On the left side there is hemiarthroplasty with good position of the prosthesis as visualized. In the pelvis no acute bony abnormalities. Degenerative changes in the lower lumbar spine with scoliosis. The soft tissues are unremarkable. Procedure Note Rafy Louis MD - 01/02/2021 Examination: XR PELVIS AP+RT HIP 1V Exam time: 01/02/2021 2:05 PM Clinical history: Trauma. Pain. Comparison: Previous studies were performed December 26, 2020 Technique: Single view pelvis and 2 views right foot Findings: There is a right hip prosthesis. It is in place. No acute bony abnormalities. The pubic bone is intact. On the left side there is hemiarthroplasty with good position of the prosthesis as visualized. In the pelvis no acute bony abnormalities. Degenerative changes in the lower lumbar spine with scoliosis. The soft tissues are unremarkable. IMPRESSION: 1) Hip prosthesis in place with no malalignment or acute bony abnormalities. Referred By: DANIEL GARCIA Interpreted By: Rafy Louis MD, 01/02/2021 6:27 PM us Daniel Gacria MACHINE SHOP APPRENTICE-[facility] GENER[facility] Final Resu lt documented in this encounter Visit Diagnoses Diagnosis Status post right hip replacement Hip joint replacement by other means documented in this encounter Care Teams Supervisor Inspection Room Relationship Specialty Start Date End Date Sebastien Sequeira MD [address] [place] [id number] PCP - General INTERNAL MEDICINE 08/02/20 documented as of this encounter
--- OUTSIDE RECORDS SUMMARY | 2024-09-13 06:34 | XMS_ITS | Encounter Summary ---
Author Organization [facility] Address [facility] [place] [address] [place] [address] Care Team Providers Care Radarman Name Role Phone Setlla Obrien MD Primary Care Provider [phone] Reason for Referral * (Routine) - Canceled Specialty Diagnoses / Procedures Referred By Contac t Referred To Contact Procedures PT Eval and Gustavo Villeda MD [address] [place] [id number] Phone: tel: fax: Referral ID Status Reason Start Date Expiration Date V isits Requested Visits Authorized [id number] Canceled 11/19/2020 12/20/2021 1 1 NCIAL SERVICES MANAGER * (Routine) - Canceled Specialty Diagnoses / Procedures Referred By Contac t Referred To Contact Procedures OT Eval and Gustavo Villeda MD [address] [place] [id number] Phone: tel: fax: Referral ID Status Reason Start Date Expiration Date V isits Requested Visits Authorized [id number] Canceled 11/19/2020 12/20/2021 1 1 NCIAL SERVICES MANAGER Reason for Visit * Auth/Cert Specialty Diagnoses / Procedures Referred By Aaron t Referred To Contact Diagnoses M16.11 Procedures RIGHT Total Hip ArthroplastyNate notifiedOutpatient Status Referral ID Status Reason Start Date Expiration Date Visits Re quested Visits Authorized [id number] 1 1 Encounter Details Date Type Department Care Team (Latest Contact Info) Description 11/19/2020 8:08 AM FINANCIAL SERVICES MANAGER - 11/21/2020 3:18 PM FINANCIAL SERVICES MANAGER Hospital Encounter [facility] [address] [facility] [place] [address] Gustavo Salmeron MD [address] [place] [address] Discharge Disposition: Home or Self Care (Routine [...] have Coronavirus / COVID-19? No / Unsure 11/19/2020 8:08 AM FINANCIAL SERVICES MANAGER documented as of this encounter Last Filed Vital Signs Vital Sign Reading Time Taken Comments Blood Pressure 135/67 11/21/2020 1:55 PM FINANCIAL SERVICES MANAGER Pulse 89 11/21/2020 12:19 PM FINANCIAL SERVICES MANAGER Temperature 37.6 ??C (99.6 ??F) 11/21/2020 12:[address] Respiratory Rate 18 11/21/2020 12:19 PM FINANCIAL SERVICES MANAGER Oxygen Saturation 100% 11/21/2020 12:19 PM FINANCIAL SERVICES MANAGER Inhaled Oxygen Concentration - - Weight 131.5 kg (290 lb) 11/19/2020 1:00 PM FINANCIAL SERVICES MANAGER Height 177.8 cm (5' 10 ) 11/19/2020 1:00 PM FINANCIAL SERVICES MANAGER Body Mass Index 41.61 11/19/2020 1:00 PM FINANCIAL SERVICES MANAGER documented in this encounter Functional Status * Question Answer Date of Assessment Author Status Do you have serious difficulty walking or climbing stairs? Yes 11/19/2020 1:16 PM Nory Barron RN Acti ve * Question Answer Date of Assessment Author Status Do you have difficulty dressing or bathing? No 11/19/2020 1:16 PM Nory Barron RN Active Because of a physical, mental, or emotional condition, do you have difficulty doing errands alone such as visiting a doctor's office or shopping? No 11/19/2020 1:16 PM Ernestine Barron RN Active * RETIRED Are you deaf or do you have serious difficulty hearing Answer Date of Assessment Author Status No 11/19/2020 1:16 PM FINANCIAL SERVICES MANAGER Activ e * RETIRED Are you blind or do you have serious difficulty seeing, even when wearing glasses? Answer Date of Assessment Author Status No 11/19/2020 1:16 PM FINANCIAL SERVICES MANAGER Activ e * Do you have [...] difficulty concentrating, remembering, or making decisions? No 11/19/2020 1:16 PM Nory Barron RN Active * Because of a physical, mental, or emotional condition, do you have serious difficulty concentrating, remembering, or making decisions? Answer Entry Date Author Status No 11/19/2020 1:16 PM Nory Barron R N Active documented in this encounter Discharge Summaries * Adele Curtis Jose, HEAD TURBINE OPERATOR-BC - 11/21/2020 8:47 AM CST Discharge Summary Patient: Gilma Mills is a 70-year-old female : 1950 Medical Record: [id number] Admit Date: 11/19/2020 8:08 AM Admission Diagnosis: M16.11 PCP: STELLA OBRIEN MD Admitting Physician: Gustavo Salmeron MD Discharge date: 11/21/2020 Discharge Diagnosis: Patient Active Problem List Diagnosis Date Noted ??? Primary osteoarthritis of right hip 11/19/2020 ??? Primary osteoarthritis of left hip 08/13/2020 ??? Status post right hip replacement 08/13/2020 ??? Daytime hypersomnia 10/05/2017 ??? Obstructive sleep apnea 08/18/2014 ??? Post-nasal drip 08/18/2014 ??? Restless legs syndrome 08/18/2014 ??? Hypertension 08/18/2014 ??? Fibromyalgia 08/18/2014 ??? Arthritis 08/18/2014 Surgery date: 11/19/2020 Procedure: RIGHT Total Hip Arthroplasty : Discharged Condition: stable Hospital Course: Gilma Mills is a 70-year-old female who underwent an elective RIGHT Total Hip Arthroplasty : . She was admitted postoperatively for routine infection and DVT prophylaxis and mobilized with physical therapy. Postoperatively she made good progress with mobilization and had good pain control. She did have hypotensive episodes with ambulation that required a IV bolus to increase her blood pressure. She eemed to regulate overnight and maintained normal blood pressure throughout the night. She was found to be safe with independent activity to be discharged home. Her final examination demonstrates that her incision is well approximated with cricket in place and no erythema or drainage. She is demons trating increasing quad control and is neurovascularly intact.. Discharge instructions were provided a long with a follow-up appointment. She will continue her regular home medications and a prescription for hydrocodone was provided for pain relief. She will continue to take an Aspirin twice a day for DVT prophylaxis and scheduled for Oupatient physical therapy. Consults: none Disposition: discharged to home Discharged Condition: Stable Discharge Medications: Medication List START taking these medications aspirin EC 81 MG tablet Commonly known as: ECOTRIN Take 1 tablet (81 mg total) by mouth 2 (two) times daily with meals for 40 days. Commode 3-In-1 Misc 1 each by Does not apply route daily as needed. HYDROcodone-acetaminophen 5-325 MG tablet Commonly known as: NORCO Take 1 tablet by mouth every 4 (four) hours as needed for Pain. Indications: Acute Pain < 7 Day Supply CONTINUE taking these medications ALPRAZolam 0.25 MG tablet Commonly known as: XANAX Euthyrox 125 MCG tablet Generic drug: levothyroxine ezetimibe 10 MG tablet Commonly known as: ZETIA furosemide 40 MG tablet Commonly known as: LASIX Lyrica 100 MG capsule Generic drug: pregabalin nortriptyline 25 MG capsule Commonly known as: PAMELOR pantoprazole EC 40 MG tablet Commonly known as: PROTONIX propranolol LA 160 MG 24 hr capsule Commonly known as: INDERAL LA rOPINIRole 2 MG tablet Commonly known as: REQUIP rosuvastatin 20 MG tablet Commonly known as: CRESTOR spironolactone 100 MG tablet Commonly known as: ALDACTONE venlafaxine XR 150 MG 24 hr capsule Commonly known as: EFFEXOR-XR Where to Get Your Medications These medications were sent to [facility] [address] [place] [id number] ?? HYDROcodone-acetaminophen 5-325 MG tablet You can get these medications from any pharmacy Bring a paper prescription for each of these medications ?? Commode 3-In-1 [facility] You don't need a prescription for these medications ?? aspirin EC 81 MG tablet Signed MUKESH FRANK NCIAL SERVICES MANAGER documented in this encounter Discharge Instructions * Attachments The following attachments cannot be sent through Care Everywhere. * Total Hip Replacement Discharge Instructions (Yemeni) documented in this encounter Medications at Time [...] every 8 (eight) hours as needed. 05/25/2020 1 aspirin EC 81 MG tabletIndications:St atus post right hip replacement,Primary osteoarthritis of right hip Take 1 tablet (81 mg total) by mouth 2 (two) times daily with meals for 40 days. 80 tablet 11/21/2020 1 EUTHYROX 125 MCG tablet Take 1 tablet (125 mcg total) by mouth daily. 07/15/2020 3 furosemide 20 MG tablet Take 1 tablet (20 mg total) by mouth as needed. 01/14/2020 3 HYDROcodone-acetamin ophen 5-325 MG tabletIndications:Ac [place] Pain < 7 Day Supply Take 1 tablet by mouth every 4 (four) hours as needed for Pain. Indications: Acute Pain < 7 Day Supply 30 tablet 11/20/2020 1 Misc. Devices (COMMODE 3-IN-1) MiscIndications:Stat us post right hip replacement,Primary osteoarthritis of right hip 1 each by Does not apply route daily as needed. 1 each 11/21/2020 1 pregabalin (LYRICA) 100 MG capsule Take 2 capsules by mouth 2 (two) times a day. 02/09/2014 1 propranolol LA 160 MG 24 hr capsule Take 1 capsule (160 mg total) by mouth daily. 05/11/2020 3 spironolactone 100 MG tablet Take 1 tablet by mouth daily. 01/20/2020 2 documented as of this encounter Progress Notes * Radha Ackerman, BROOM STITCHER - 11/21/2020 2:59 PM CST 11/21/20 1325 Therapy Visit Ordering Provider Dr. Salmeron Subjective Pt sitting in chair upon entry and agrees to therapy. Pt states that her pain is a 4 in right hip pre treatment. Reason for admission s/p R ALEXUS Verified Two Patient Identifiers Yes Patient consents to therapy Yes Acute Inpatient PT Time Calculation PT Start Time 1325 PT Stop Time 1348 PT Time Calculation (min) 23 min Precautions Precautions Yes/No Yes Total Hip Replacement ADduction;Internal rotation;Flexion Pain Pain Yes Pain Score 4 Location R hip Activity Tolerance Endurance Tolerates 20 - 30 min activity with rests TRANSFERS Sit to Stand SBA/supervision Bed to Chair SBA/supervision Other (Comment) Pt became lightheaded and dizzy. Gait Gait Assistance SBA/supervision Assistive Device 2 Wheeled walker Ambulation Distance (Feet) 5ft x1 and 20ft x1 Pattern R Decreased stance time Exercises Ankle Pumps B x20 Quad Sets B x20 Short Arc Quad R x10 Glut Sets x20 Hip Abduction R x15 assisted Sitting LE Exercise R LAQ x15 PT Assessment PT Assessment Pt did become lightheaded again and a little dizzy during ambulation. Pt rested and BP taken in sitting and was 133/75 and then patient stood and BP was 118/67. TERESA Angulo informed and ordered a bolus of fluids and patient good for discharge and encouraged patient to drink plenty of fluids, which signwriter doesn't think patient is doing. Pt completed and reviewed HEP to be done twice aday until beginning outpatient therapy. Pt also advised that she needs to get up and ambulate everyhour. Recommendation PT Recommendation Outpatient PT PT Equipment Recommended 2 Wheeled walker Plan PT Treatments/Interventions Gait Training;Therapeutic Exercises;Therapeutic Activities Progress Progressing toward goals PT Frequency BID End of Session Safety End of Session Safety Call light within reach NCIAL SERVICES MANAGER * Radha Ackerman PTA - 11/21/2020 11:38 AM CST 11/21/20918 Therapy Visit Ordering Provider Dr. Salmeron Subjective Pt supine in bed upon arrival and agrees to therapy. Pt states that she is feeling much better than yesterday. Pt rates her pain a 1 in right hip pre treatment. Reason for admission s/p R ALEXUS Verified Two Patient Identifiers Yes Patient consents to therapy Yes Acute Inpatient PT Time Calculation PT Start Time 917 PT Stop Time 941 PT Time Calculation (min) 24 min Precautions Precautions Yes/No Yes Total Hip Replacement ADduction;Internal rotation;Flexion Pain Pain Yes Pain Score 1 Location R Hip Activity Tolerance Endurance Tolerates 20 - 30 min activity with rests Bed Mobility Supine to Sit Modified independence TRANSFERS Bed to Chair SBA/supervision Gait Gait Assistance Contact guard assist;SBA/supervision Assistive Device 2 Wheeled walker Ambulation Distance (Feet) 15ft x1 and 20ft x1 Pattern R Decreased stance time Balance Sitting - Static Independent Sitting - Dynamic Independent Standing - Static Modified independence;Support of both upper extremities Standing - Dynamic SBA;Support of both upper extremities PT Assessment PT Assessment Pt able to increase ambulation distance this morning from yesterday without and issues. Pt ambulated with FWW and CGA/SBA with decrease stance time on R LE without LOB noted. Pt demonstrated no LOB during all balancing activities while bathing this morning, but does some increase in pain. Pt positioned in chair with legs elevated and call light within reach. Pt will be seen by PT this afternoon and then will be discharged. Recommendation PT Recommendation Outpatient PT PT Equipment Recommended 2 Wheeled walker Plan PT Treatments/Interventions Gait Training;Therapeutic Exercises;Therapeutic Activities Progress Progressing toward goals PT Frequency BID End of Session Safety End of Session Safety Call light within reach NCIAL SERVICES MANAGER * JL Knutson - 11/21/2020 11:27 AM CST 11/21/20917 Therapy Visit Reason for admission s/p R ALEXUS Ordering Provider Dr. Salmeron Verified Two Patient Identifiers Yes Patient consents to therapy Yes Acute Inpatient OT Time Calculation OT Start Time 917 OT Stop Time 941 OT Time Calculation (min) 24 min Subjective Subjective Pt supine in bed and agreeable to treatment. Pain Pain Yes Pain Score 1 Location R Hip Objective Objective Pt seen during skilled OT with focus on transfers,toileting, sponge bathing, and bed mobility. Activity Tolerance Endurance Tolerates 20 - 30 min activity with rests ADL Bathing Assistance Stand by Toileting Assistance Modified independent Bed Mobility Supine to Sit Modified independence Functional Transfers Sit to Stand SBA/supervision Bed to Chair SBA/supervision Toilet Transfers Modified Independent Recommendation OT Recommendation Outpatient PT OT Equipment Recommended 2 Wheeled walker Plan OT Treatment/Intervention Self-care training;Therapeutic exercises;Therapeutic activities Progress Progressing toward goals End of Session Safety End of Session Safety Call light within reach NCIAL SERVICES MANAGER * Vicki Foote RN - 11/21/2020 9:33 AM CST Problem: Reduced risk for falls/injury Goal: Reduced Risk for Falls/Injury Outcome: Progressing Note: No falls. Frequent patient observation. Call light within reach. Goal: Reduced Risk of Confusion (Acute vs Chronic) Outcome: Progressing Note: Alert and oriented x4. Goal: Reduced Risk of Symptomatic Depression Outcome: Progressing Note: WNL Goal: Reduced Risk of Altered Elimination Outcome: Progressing Note: WNL Goal: Reduced Risk of Dizziness/Vertigo/Balance Outcome: Progressing Note: No dizziness voiced. Goal: Reduced Risk of Polypharmacy Outcome: Progressing Note: Med rec completed on admission Problem: Discharge Planning Goal: Knowledge of discharge instructions Outcome: Progressing Note: Ongoing education Problem: Venous Thromboembolism - Risk of Goal: Absence of venous thromboembolism Outcome: Progressing Problem: Mobility - Impaired Goal: Able to use ambulatory assistive device appropriately Outcome: Progressing Goal: Knowledge of need for increased mobility Outcome: Progressing Note: Ongoing education Problem: Mobility Goal: STG - Pt will ambulate Description: 250' with wh walker I Outcome: Progressing Problem: Transfers Goal: STG - Pt will perform sit to stand Outcome: Progressing Problem: Bathing Goal: STG - Pt will bathe body by alternating sit/stand with Description: Min assist Outcome: Progressing Problem: Grooming Goal: STG - Pt will complete grooming while standing sink/tableside with Description: Min assist Outcome: Progressing Problem: Dressing: Upper Extremities Goal: STG - Pt will complete upper body dressing with Description: independent Outcome: Progressing Problem: Transfers Goal: STG - Pt ian transfer from bed to chair with Description: Mod assist of 1 Outcome: Progressing NCIAL SERVICES MANAGER * Kathi Gonzalez OT - 11/20/2020 4:42 PM CST 11/20/20 1318 Therapy Visit Reason for admission s/p R ALEXUS Ordering Provider Dr. Salmeron Patient consents to therapy Yes Acute Inpatient OT Time Calculation OT Start Time 1318 OT Stop Time 1335 OT Time Calculation (min) 17 min Precautions Precautions Yes/No Yes Total Hip Replacement ADduction;Internal rotation;Flexion Subjective Subjective Pt seated up in chair. She reports that she is still feeling numbness from R knee and down Pain Pain Yes Pain Score 3 Location right hip Objective Objective BP at rest - 132/62. BP in standing 104/35. Pt performed a sit to stand transfer, BP dropped. Pt sat back down to recover from dizziness. Activity Tolerance Endurance Tolerates 10 - 20 min activity with rests Cognition Overall Cognitive Status WFL Orientation Level Oriented X4 Cognition Complex Affect Anxious (pt voiced concerns about the numbness in her RLE) Functional Transfers Sit to Stand SBA/supervision Bed to Chair SBA/supervision Balance Sitting - Static Independent Sitting - Dynamic Independent Assessment OT Assess/Eval Other (Comment) pt o2 stats dropped after performing a sit to stand transfer, pt instantly felt dizziness upon standing. Pt was independent with self care and functional mobility usingAD. after elective surgery, pt is demonstrating dizziness, decrease strength, and ability to perform functional transfers at this time. Patient would continue to benefit from skilled OT during hospitalization, but will not require OT at discharge. Recommendation OT Recommendation OT during hospitalization (outpatient PT) OT Equipment Recommended 2 Wheeled walker Plan OT Treatment/Intervention Self-care training;Therapeutic exercises;Therapeutic activities Progress Progressing toward goals End of Session Safety End of Session Safety Call light within reach;Nursing aware of session End of Session Comment pt seated up in chair Kathi Gonzalez OTR NCIAL SERVICES MANAGER * Radha Ackerman PTA - 11/20/2020 4:12 PM CST Pt limited in ambulation due to BP dropping upon standing this afternoon. NCIAL SERVICES MANAGER * Radha Ackerman PTA - 11/20/2020 4:11 PM CST 11/20/20 1319 Therapy Visit Ordering Provider Dr. Salmeron Subjective Pt sitting up in chair upon entry and agrees to therapy. Pt states that she still isn't feeling the best and states that her foot is still a little numb. Pt states that her pain is a 3 located in right hip pre treatment. Reason for admission s/p R ALEXUS Verified Two Patient Identifiers Yes Patient consents to therapy Yes Acute Inpatient PT Time Calculation PT Start Time 1318 PT Stop Time 1335 PT Time Calculation (min) 17 min Precautions Precautions Yes/No Yes Total Hip Replacement ADduction;Internal rotation;Flexion Pain Pain Yes Pain Score 3 Location R hip Activity Tolerance Endurance Tolerates 10 - 20 min activity with rests TRANSFERS Sit to Stand SBA/supervision Bed to Chair SBA/supervision Other (Comment) Pt had to sit back down immediately upon standing. BP dropped to 104/35 upon standing from 132/62 when sitting. Gait Gait Assistance YUSUF Other (Comment) Pt became light headed and needed to sit back down. Exercises Ankle Pumps B x20 Quad Sets B x20 Straight Leg Raise R x10 assisted Glut Sets x20 Hip Abduction R x15 assisted PT Assessment PT Assessment Pt attempted to stand but BP dropped to 104/35 when standing. BP sitting was 132/62. Pt notes that she got lightheaded and just felt flushed. Pt was able to complete a few strengtheningexercises with R LE, but notes that she is just very tired and just wants to rest. Pt positioned inchair with legs elevated and ice placed on R hip. Call light within reach and WINE STEWARD/STEWARDESS notified. Recommendation PT Recommendation Outpatient PT PT Equipment Recommended 2 Wheeled walker Plan PT Treatments/Interventions Gait Training;Therapeutic Exercises;Therapeutic Activities Progress Progressing toward goals PT Frequency BID End of Session Safety End of Session Safety Call light within reach NCIAL SERVICES MANAGER * Radha Ackerman PTA - 11/20/2020 12:07 PM CST 11/20/20954 Therapy Visit Ordering Provider Dr. Salmeron Subjective Pt sitting up in chair bathing herself upon arrival. Pt states that her pain is a 4 in right hip pre treatment. Reason for admission s/p R ALEXUS Verified Two Patient Identifiers Yes Patient consents to therapy Yes Acute Inpatient PT Time Calculation PT Start Time 954 PT Stop Time 1023 PT Time Calculation (min) 28 min Precautions Precautions Yes/No Yes Total Hip Replacement ADduction;Internal rotation;Flexion Pain Pain Yes Pain Score 4 Location R hip Activity Tolerance Endurance Tolerates 20 - 30 min activity with rests TRANSFERS Sit to Stand SBA/supervision Bed to Chair SBA/supervision Gait Other (Comment) Pt got a little light headed upon standing and wished not to ambulate this morning. Balance Sitting - Static Independent Sitting - Dynamic Independent Standing - Static SBA;Support of both upper extremities;Support of one upper extremity Standing - Dynamic CGA;Support of one upper extremity;Support of both upper extremities Exercises Ankle Pumps B x20 Quad Sets B x20 Short Arc Quad R x10 Straight Leg Raise R x10 assisted Glut Sets x20 Hip Abduction R x15 assisted PT Assessment PT Assessment Pt demonstrated no LOB during all balancing activities while bathing this morning, but did complaint of getting a little light headed upon standing to don pants. Pt sat down and symptoms resided within a couple of minutes. Pt then completed strengthening exercises with R LE and requires assistance with hip abduction and single leg raises. Pt positioned in chair with legs elevated and ice to R hip. Call light within reach. Recommendation PT Recommendation Outpatient PT PT Equipment Recommended 2 Wheeled walker Plan PT Treatments/Interventions Gait Training;Therapeutic Exercises;Therapeutic Activities Progress Progressing toward goals PT Frequency BID End of Session Safety End of Session Safety Call light within reach NCIAL SERVICES MANAGER * Evelyn Catalino Torres - 11/20/2020 10:39 AM CST Patient lives at home with her . She is fairly independent at home. This is her second hip replacement. She has a walker at home. They have a ramp to get in the home. Patient said that she will do outpatient therapy at the hospital in [place]. She has no other discharge needs. Her will transport home. SW will continue to follow. 11/20/20 1030 Referral Data Referral Reason Discharge Planning Source of Information Patient Patient Information OB Patient < 19 yrs old No Primary Caregiver Self Support System Immediate family Baseline ADL's Functional Status Independent Living Arrangements Spouse/significant other Type of Residence Private residence Ambulation Assistance No Active DME Walker Bathing/Grooming Assistance No Dressing Assistance No Behavior Oriented;Cooperative Communication Talks;Understands speaking;Understands [place]i Socioeconomic Needs Caregiver Needed No At Risk [...] Patient expects to be discharged to: Home Psychosocial Needs With Indication for Social Work Consult Diagnosis/prognosis resulting in poor adjustment or coping with illness No Diagnosis/prognosis with anticipated outcome of major lifestyle changes, including change in half-way living environment No Family concerns/conflicts No Inadequate social and/or financial supports No Abuse and/or neglect of elder, adult or child No Psychiatric and/or substance abuse issues affecting current hospitalization No Homelessness with lack of safe discharge environment No Need for guardianship petition No [place] Only - Criminal Background check [place] only - Is patient going to detention? No NCIAL SERVICES MANAGER * Nory Whitaker RN - 11/20/2020 9:04 AM CST Problem: Reduced risk for falls/injury Goal: Reduced Risk for Falls/Injury Outcome: Progressing Note: Call light within reach, calls when needing assistance Goal: Reduced Risk of Confusion (Acute vs Chronic) Outcome: Progressing Note: None to report Goal: Reduced Risk of Symptomatic Depression Outcome: Progressing Note: Encouraging verbalization Goal: Reduced Risk of Altered Elimination Outcome: Progressing Note: wnl Goal: Reduced Risk of Dizziness/Vertigo/Balance Outcome: Progressing Note: None to report Goal: Reduced Risk of Polypharmacy Outcome: Progressing Note: MD and HADOOP JAVA DEVELOPER monitoring medications Problem: Discharge Planning Goal: Knowledge of discharge instructions Outcome: Progressing Note: Continuing education Problem: Venous Thromboembolism - Risk of Goal: Absence of venous thromboembolism Outcome: Progressing Note: No signs or symptoms Problem: Mobility - Impaired Goal: Able to use ambulatory assistive device appropriately Outcome: Progressing Note: Uses walker when ambulating with staff Goal: Knowledge of need for increased mobility Outcome: Progressing Note: Continuing education NCIAL SERVICES MANAGER * Kathi Gonzalez OT - 11/20/2020 8:57 AM CST [facility] Occupational Therapy Inpatient Evaluation Time In: 751 Time Out: 820 Total Evaluation Time: 29 minutes Ordering Physician: Painter LICONA Patient: Gilma Mills Location: Diagnosis: M16.11 Past Medical History: Diagnosis Date ??? Acid reflux ??? Depression with anxiety ??? Disease of thyroid gland ??? Fibromyalgia ??? Hypertension ??? Migraines ??? Stroke (CMS/HCC) Pt had no symptoms 4 years ago. Past Surgical History: Procedure Laterality Date ??? ARTHROSCOPY SHOULDER ROTATOR CUFF REPAIR Right ??? FOOT SURGERY Right ??? HYSTERECTOMY ??? HYSTERECTOMY ??? JOINT REPLACEMENT Bilateral ??? RELEASE HAND/FINGER TENDON Left ??? TOTAL HIP ARTHROPLASTY Left 08/13/2020 ??? TOTAL KNEE ARTHROPLASTY Bilateral SUBJECTIVE: Pain: 5/10 at rest 12 of 10 pain with activity 3/10 post activity Pain comments: Pain at R hip. Patient reports that she took a pain medication prior the start of therapy session. Pt was supine in bed, with CHICHI Angulo present rin room, upon OTR arrival. Pt reporting that she really would like to go home today. She also reports that she is still feeling some numbness at her R foot area for sensation -- reports that she is able to feel touch on her leg, but almost like when your foot falls asleep . Pt is motivated to get into the chair this date, as she is tired of lying inbed. Prior Level of Function: ADLs: Bathing: Independent Toileting: Independent UB Dressing: Independent LB Dressing: Independent Feeding: Independent Grooming: Independent IADLs: Meal Preparation: Family Assist Cleaning: Family Assist Laundry: Family Assist Working/Volunteering: No Driving: Yes Care of Others: No Functional Mobility & Transfers: Bed Mobility: Independent Toilet Transfers: Independent Tub/Shower Transfers: Independent Patient has been completing functional mobility with single point cane or 2 wheeled walker. Home Environment: House Levels: 1 Entrance: several steps but has a ramp installed Bathroom is equipped with walk in shower with threshold, standard toilet, there is a seat for the bathroom. Living arrangements - The patient lives with their spouse. OBJECTIVE: Orientation Level: x 4 Cognition:follows multistep commands 100% of the time. Fair safety awareness and insight, able to verbalize 2/3 hip precautions informed by CHICHI Angulo. Patient was slightly impulsive 2/2 pain with functional mobility this date. Affect: normal, alert Vision: WFL Hearing: WFL Precautions/Restrictions: WBAT R LE Hand Dominance: right Upper Extremity R L Coordination intact intact Sensation intact intact ROM WFL WFL Back Tender Insulation Board Strength 5/5 5/5 Shoulder flexion 5/5 5/5 Elbow flexion 5/5 5/5 Elbow extension 4+/5 4+/5 Vitals: BP SpO2 Room Air / Liter Pulse Pre Activity Sitting edge of bed 136/75 110 Post bed to chair transfer 154/74 94 Comments: Pt reporting minimal pain while seated edge of bed, although discomfort on RLE - BP taken- denies any dizziness and SOB. Pt is very motivated to transfer to chair this date. Increased pain and BP after transfer to chair, after rest, patient able to report that she feels much better sitting up in chair and denies having dizziness. Informed WINE STEWARD/STEWARDESS about BP vitals post activity. ADLs: Feeding:Mod [place] with assistance with set up and item retrieval Toileting: Not Performed this Date UB Dressing: Not Performed this Date LB Dressing: Max A to don/doff bilateral socks while seated edge of bed Grooming: Not Performed this Date Bathing: Not Performed this Date Transfers: Bed mobility/rolling: Not performed this date Supine <> sit: Mod A Sit <> stand: Mod A x 2. Required second individual to stand from edge of bed 2/2 numbness onR side of foot Bed to chair transfer: Mod A/Max A of 2, for initial boost from bed, ongoing verbal and tactile cues for stepping sequence, and verbal cues for wheeled walker management. Assistive Device utilized during transfers: 2 wheeled walker Activity performed this session: Therapeutic Activity 53469: Time: 15 Evaluation only this . Education: Pt educated about purpose and benefit of participation in occupational therapy. ASSESSMENT: Gilma Mills is a 70-year-old female who presents with a primary complaint of M16.11. Prior to admission, pt reports being independent with self care and functional mobility with a cane or her wheeled walker. Pt is currently demonstrating decreased ability to complete ADLs and functional mobility seco ndary to pain, decrease dynamic standing activities, and decrease sensation, and safety awareness/insight. Pt will benefit from participation in skilled OT services to improve independence in ADLs and functional mobility in order to return home safely with . Recommended Interventions: Therapeutic Activity, Therapeutic Exercise and Self- Care Training Rehab Potential: Fair Occupational Profile and History Complexity: Moderate (Expanded) Performance Skills Deficits: Low Performance Deficit Level: Low Clinical Decision Making: Low Evaluation Complexity Level: Low OT PLAN: Frequency: 1-2x/Day, 5 day a week Duration: 1 week Plan for next session: ADL and transfer training Anticipated Discharge at this time: Home with assist Equipment Recommendations: none2 Safety at conclusion of Treatment: Upon OTR departure, pt seated up in chair with breakfast set up, ice pack placed on R side of hip as requested by pt, call light within reach, and all needs met. NCIAL SERVICES MANAGER * Adele Garcia, HEAD TURBINE OPERATOR-BC - 11/20/2020 8:00 AM CST Daily Progress Note Patient: Gilma Mills is a 70-year-old female : 1950 Surgery date: 11/19/2020 Procedure: RIGHT Total Hip Arthroplasty : SUBJECTIVE She reports that she is doing well but noticing some pain this morning but taking pain medication with relief in her symptoms. She denies any numbness or tingling. OBJECTIVE Vital signs in the last 24 hours: Temp: [95.8 ??F (35.4 ??C)-98.7 ??F (37.1 ??C)] 98.7 ??F (37.1 ??C) Pulse: [72-107] 107 Resp: [16-18] 18 BP: (100-141)/(46-90) 141/76 Intake/Output last 3 shifts: I/O last 3 completed shifts: In: 3872.6 [P.O.:1160; I.V.:2612.6; IV Piggyback:100] Out: 1725 [Urine:1325; Blood:400] Intake/Output this shift: I/O this shift: In: 448.8 [P.O.:240; I.V.:208.8] Out: - Examination: Constitutional: Alert and in no acute distress. Neurological: The patient was oriented to person, place, and time. EXAM of RIGHT hip today reveals dressing clean dry and intact, increasing quad firing, neurovascularly intact. Labs and Cultures: Recent Results (from the past 24 hour(s)) HEMOGLOBIN AND HEMATOCRIT Collection Time: 11/20/20 4:55 AM Result Value Ref Range HGB 10.0 (L) 12.0 - 16.0 G/DL HCT 31.3 (L) 36.0 - 47.0 % Imaging: Results for the past 24 hours No results found. ASSESSMENT Patient Active Problem List Diagnosis ??? Obstructive sleep apnea ??? Post-nasal drip ??? Restless legs syndrome ??? Hypertension ??? Fibromyalgia ??? Daytime hypersomnia ??? Arthritis ??? Primary osteoarthritis of left hip ??? Status post right hip replacement ??? Primary osteoarthritis of right hip PLAN: She is seeing some relief in her pain with oral pain medication. We will see how she does with mobilization and anticipate discharging home after this afternoon therapy as long as she is safe with independent activity. Signed MUKESH FRANK 11/20/2020 Cosigned by Gustavo Salmeron MD at 11/20/2020 12:02 PM FINANCIAL SERVICES MANAGER NCIAL SERVICES MANAGER NCIAL SERVICES MANAGER * Miranda Winkler RN - 11/19/2020 10:48 PM CST Problem: Reduced risk for falls/injury Goal: Reduced Risk for Falls/Injury Outcome: Progressing No falls. Goal: Reduced Risk of Confusion (Acute vs Chronic) Outcome: Progressing Pt is not confused. Goal: Reduced Risk of Symptomatic Depression Outcome: Progressing No depression. Goal: Reduced Risk of Altered Elimination Outcome: Progressing Canseco patent. Goal: Reduced Risk of Dizziness/Vertigo/Balance Outcome: Progressing No dizziness. Goal: Reduced Risk of Polypharmacy Outcome: Progressing No action. Problem: Discharge Planning Goal: Knowledge of discharge instructions Outcome: Progressing No action. Problem: Venous Thromboembolism - Risk of Goal: Absence of venous thromboembolism Outcome: Progressing No dvt. Problem: Mobility - Impaired Goal: Able to use ambulatory assistive device appropriately Outcome: Progressing Goal: Knowledge of need for increased mobility Outcome: Progressing Pt resting in bed. NCIAL SERVICES MANAGER * Kathi Gonzalez OT - 11/19/2020 5:05 PM CST Attempted to see patient at 17:05. Pt still eating supper at this time. Pt reporting that she saw physical therapy early and that she had felt dizzy with functional mobility. She reports that she still feels Numbness throughout her R LE. Will re-attempt occupational therapy evaluation tomorrow 11/20/2020. NCIAL SERVICES MANAGER * Lori Richardson, PT - 11/19/2020 4:19 PM CST [facility] Physical Therapy Inpatient Evaluation Time In: 1537 Time Out: 1554 Gilma Mills 330/01 M16.11 Past Medical History: Diagnosis Date ??? Acid reflux ??? Depression with anxiety ??? Disease of thyroid gland ??? Fibromyalgia ??? Hypertension ??? Migraines ??? Stroke (CMS/HCC) Pt had no symptoms 4 years ago. Past Surgical History: Procedure Laterality Date ??? ARTHROSCOPY SHOULDER ROTATOR CUFF REPAIR Right ??? FOOT SURGERY Right ??? HYSTERECTOMY ??? HYSTERECTOMY ??? JOINT REPLACEMENT Bilateral ??? RELEASE HAND/FINGER TENDON Left ??? TOTAL HIP ARTHROPLASTY Left 08/13/2020 ??? TOTAL KNEE ARTHROPLASTY Bilateral Subjective: Orientation: x 4 Pain: 0/10 Pain Location: NA Patient reports that she is feeling pretty good. Home Environment: House Entrance: ramp with Bilateral handrail. Living arrangements - The patient lives with their spouse. Patient has been ambulatory with single point cane Objective: Patient was in bed upon pt arrival. Observation: Pleasant and cooperative Precautions/Restrictions: IV Canseco Catheter Transfers: Bed mobility/rolling: Min A Supine to sit: Min A, sit to supine mod A x1 Sit to stand: Not Performed this Date Pivot: Not Performed this Date Ambulation: After sitting on side of bed pt c/o wozzy Feeling. BP was 76/54 therefore pt was laidback into bed. Activity performed this session: Evaluation only this date. Assessment: Gilma Mills is a 70-year-old female who presents with a primary complaint of M16.11. Patient is demonstrating deficits in Strength, ROM, Mobility and Transfers leading to increased fall risk, inability to perform self care and decreased independence. Skilled therapy is appropriate at this time to address these impairments and to move the patient towards their goal of returning home with . Recommended Interventions: Therapeutic Activity, Therapeutic Exercise and Gait Training Rehab Potential: Good Personal Factors/Co-Morbidities Affecting Care: 3-4+ Examination of Body Systems: Low (1-2) Clinical Presentation of Patient: Stable Uncomplicated Eval Complexity: Low PT Plan: Frequency: BID and Daily on Thursday Duration: 1 week Anticipated Discharge at this time: Home Plan for next session:attempt ambulation Safety at conclusion of Treatment: Patient in Bed, Call Light in Reach and Nursing Notified of Situation NCIAL SERVICES MANAGER documented in this encounter H&P Notes * Gustavo Salmeron MD - 11/19/2020 8:59 AM CST HISTORY AND PHYSICAL INTERVAL NOTE: [...] during recuperation were discussed with the patient/family/personal credit resolution representative. Reasonable alternatives to the patient's proposed procedure/surgery including benefits, risks, and side effects related to the alternatives and the risks related to not receiving the proposed care were also discussed with the patient/family/personal credit resolution representative. Questions were answered and the patient/family/personal credit resolution representative verbalized understanding and desires to proceed. NCIAL SERVICES MANAGER Source Note - Gustavo Salmeron MD - 11/06/2020 10:00 AM FINANCIAL SERVICES MANAGER Chief Complaint: Postop Followup (DOS:08/13/2020 left total hip arthroplasty) and Pre-Op Exam (RIGHT Total Hip Arthroplasty) History of Present Illness: Gilma Mills is a 70-year-old female who presents to the office for Postop Followup (DOS:08/13/2020 left total hip arthroplasty) and Pre-Op Exam (RIGHT Total Hip Arthroplasty) Patient returns to clinic for 12 week follow up after LEFT ALEXUS. She states that she is doing great.She has completed physical therapy at [place]. Patient denies any daily pain to her LEFT hip. Denies any numbness, tingling or night pain. No difficulty with doing daily activities. Patient would also like to discuss having her RIGHT ALEXUS done. She states that she has had RIGHT hippain for 2 years. Denies any injury. Locates pain to the RIGHT hip joint with some radiation down the lateral aspect of her RIGHT leg. Denies any numbness and tingling. Occasional night pain with positioning. She is using Tylenol and/or Advil for at least 6 months with some relief. No history of injections or physical therapy. Usage of cane and walker as an assistive device. Pain increases with prolonged walking, carrying items, prolonged sitting, stairs, and getting out of a chair. ROS: See HPI for pertinent positives Problem List: Patient Active Problem List Diagnosis ??? Obstructive sleep apnea ??? Post-nasal drip ??? Restless legs syndrome ??? Hypertension ??? Fibromyalgia ??? Daytime hypersomnia ??? Arthritis ??? Primary osteoarthritis of left hip ??? Status post total replacement of left hip History: Past Medical History: Diagnosis Date ??? Acid reflux ??? Depression with anxiety ??? Disease of thyroid gland ??? Fibromyalgia ??? Hypertension ??? Stroke (CMS/HCC) Pt had no symptoms 4 years ago. Past Surgical History: Procedure Laterality Date ??? ARTHROSCOPY SHOULDER ROTATOR CUFF REPAIR Right ??? FOOT SURGERY Right ??? HYSTERECTOMY ??? JOINT REPLACEMENT Bilateral ??? TOTAL HIP ARTHROPLASTY Left 08/13/2020 ??? TOTAL KNEE ARTHROPLASTY Bilateral Family History [...] use: Never Medications: Current Outpatient Medications: ??? ALPRAZolam 0.25 MG tablet, Take 1 tablet by mouth every 8 (eight) hours as needed., Disp: , Rfl: ??? EUTHYROX [...] daily., Disp: , Rfl: ??? pregabalin (LYRICA) 100 MG capsule, Take 2 capsules by mouth 2 (two) times a day., Disp: , Rfl: ??? propranolol LA 160 [...] hypotension ??? Statins Rash Objective: Filed Vitals: 11/06/20 1026 Weight: 130.6 kg (288 lb) Height: 5' 11 (1.803 m) Body mass index is 40.17 kg/m??. Physical Exam: Constitutional: Alert and in no acute distress. Neurological: The patient was oriented to person, place, and time. Eyes: The sclera and conjunctiva were normal ENT: Hearing was normal. Neck: The appearance of the neck was normal. Cardiovascular: Normal pulses. Pulmonary: No respiratory distress. Skin: No injuries or skin lesions. Musculoskeletal: Mild antalgic gait is appreciated. Left hip demonstrates excellent motion without any groin pain. The right hip also has good range of motion but groin pain is elicited. Neurovascularly intact Results: Review of x-rays demonstrates severe degenerative changes in the right hip with osteophyte formation and sclerosis. The left total hip arthroplasty appears well aligned and implants appear stable. Noleg length discrepancy Assessment: Encounter Diagnose(s) ICD-10-CM ICD-9-CM SNOMED CT(R) 1. Primary osteoarthritis of right hip M16.11 715.15 OSTEOARTHRITIS OF RIGHT HIP JOINT XR PELVIS AP+MARITZA FROG HIPS 2V 2. Status post total replacement of left hip Z96.642 V43.64 HISTORY OF TOTAL HIP ARTHROPLASTY XR PELVIS AP+MARITZA FROG HIPS 2V Plan: Patient is doing very well after left total hip arthroplasty and she no longer is required to follow hip precautions. Her right hip though is causing sleep disturbance and functional disability and she wants to proceed with right hip replacement. I have once again reviewed risks and benefits with her and we will plan to perform right hip replacement on November 19 Patient Education: The planned procedure/s, the expected benefits,the associated risks, possible complications, and alternatives to the procedure/s have been discussed in detail with the patient or family. They state that they understand, have no further questions and agree to proceed with the procedure/s as outlined. Procedure/Surgery: 11/19/2020 RIGHT Total Hip Arthroplasty Follow up: Return for Post-Op. GUSTAVO SALMERON MD NCIAL SERVICES MANAGER NCIAL SERVICES MANAGER documented in this encounter Nursing Notes * Queta Ugarte RN - 11/20/2020 8:00 PM CST Patient laying bed at this time. Scheduled medications given, plus PRN [place] given for leg pain. Vitals stable. Call light with in reach, will continue plan of care. NCIAL SERVICES MANAGER * Miranda Winkler RN - 11/19/2020 11:17 PM CST Pt refused all home medications. She said her insurance will not pay for them. NCIAL SERVICES MANAGER documented in this encounter OR Notes * Op Note - Gustavo Salmeron MD - 11/19/2020 12:05 PM CST Gilma Mills 1950 [id number] 11/19/2020 Preoperative Diagnosis: End-stage right hip osteoarthritis Postoperative Diagnosis: Same Procedure: right total hip arthroplasty using a De[employer]uy [place] standard offset size 7 stem with a +5 x 36 mm metal head in a 52 mm [place] shell with a +4 10 degree polyethylene liner Surgeon: GUSTAVO SALMERON MD Anesthesia: Spinal with IV sedation Indication: Gilma Mills is a 70-year-old female with a history of functional disability because of hip pain. The patient has evidence of end-stage osteoarthritis and has failed to see sustained relief with conservative measures. The patient presents for the above procedure after reviewing risks and benefits. Procedure:After spinal anesthesia was administered the patient was positioned in a lateral decubitus position on the operating room table and IV sedation provided. Antibiotics and tranexamic acid were given intravenously and the hip prepped and draped in the usual sterile fashion. A posterior lateral approach was used for exposure and the gluteal fascia split in line with its fibers exposing the short external rotators. The piriformis was released and tagged. The capsule was open using a T capsulotomy and the hip dislocated. The template for neck resection was position and the neck marked. Anoscillating saw was used to resect the femoral head and this was removed from the field. We then inserted acetabular retractors and a curette was used to debride the soft tissues from the acetabulum.A deep knife was used to resect the labrum and we began reaming with a 47 mm reamer and stopped reaming at 51 mm. Good subchondral bone bleeding was appreciated circumferentially. We then impacted the appropriate size cup obtaining excellent purchase. A trial neutral liner was inserted and we turned our attention to the proximal femur. The box osteotome was used to lateralize access to the canal and the Charnley awl was used to localize the canal. We then reamed up to the appropriate size to enable fill of the canal and then broached appropriately obtaining excellent purchase in the canal. The calcar reamer was used to even out the calcar and we trialed the neck lengths with offset options considered. Intraoperative x-rays were obtained demonstrating good implant position with satisfactory fill of the canal. Hip stability was good and the trial components were subsequently removed. We then impacted the polyethylene liner and subsequently the stem obtaining excellent purchase. We then impacted the head and reduced the hip demonstrating very good stability with symmetric leg lengths. The wound was copiously irrigated and the capsule approximated using #1 Vicryl. The piriformis was reattached to the posterior aspect of the greater trochanter. We then poured Vashe wound irrigant into the wound to reduce the likelihood of infection. The gluteal fascia was then approximated using #1 Vicryl which was also used to close space. Another round of Vashe solution was then poured into the wound. 2-0 Vicryl was used to close subcutaneous tissue and skin cricket were used to completeskin closure. Sterile dressings were applied and the drapes withdrawn. The dressings were made occlusive use Medipore tape. Sedation was discontinued the patient was transferred to the hospital bed then to the PACU in good condition. Estimated blood loss was 400 cc and sponge and needle counts werecorrect x2 following the procedure NCIAL SERVICES MANAGER * Brief Op Note - Gustavo Salmeron MD - 11/19/2020 11:44 AM CST [facility] Brief Op [facility] Total Hip Arthroplasty Procedure Note Gilma Mills 11/19/2020 0947 Procedure(s) (LRB): RIGHT Total Hip Arthroplasty (Right) Surgeon(s): Gustavo Salmeron MD Milliner Helper: Traffic Inspector: DELICIA Gresham Anesthesia: Spinal Pre-Op Diagnosis: M16.11 Post-Op Diagnosis: Same Findings: Estimated Blood Loss: 400 Specimens: None GUSTAVO SALMERON MD Date: 11/19/2020 Time: 11:44 AM NCIAL SERVICES MANAGER documented in this encounter Miscellaneous Notes * Quality Indicator-Discharge - Renee Sunshine RN - 11/21/2020 3:18 PM FINANCIAL SERVICES MANAGER Left voicemail for patient to call with any questions. NCIAL SERVICES MANAGER * Quality Indicator-Admission - Renee Sunshine RN - 11/16/2020 8:35 AM FINANCIAL SERVICES MANAGER Spoke with patient about upcoming surgery on Thursday. Explained outpatient status, 20% copay/Part B,and probable discharge on Thursday afternoon. She will have transportation available, already has a walker, and will do outpatient therapy at [place]. No other questions or concerns from patient. NCIAL SERVICES MANAGER documented in this encounter Plan of Treatment [...] Associated Diagnosis Comments HEMOGLOBIN AND HEMATOCRIT Routine 11/20/2020 4:55 AM FINANCIAL SERVICES MANAGER XR PELVIS 1 OR 2 VIEWS Today 11/19/2020 11:11 AM FINANCIAL SERVICES MANAGER ARTHROPLASTY HIP TOTAL 11/19/2020 9:18 AM FINANCIAL SERVICES MANAGER M16.11 documented in this encounter Results * (ABNORMAL) HEMOGLOBIN AND HEMATOCRIT (11/20/2020 4:55 AM FINANCIAL SERVICES MANAGER) HGB 10.0(L) 12.0 - 16.0 G/DL 11/20/2020 5:12 AM FINANCIAL SERVICES MANAGER [facility] HCT 31.3(L) 36.0 - 47.0 % 11/20/2020 5:12 AM FINANCIAL SERVICES MANAGER [facility] 11/20/2020 4:55 AM FINANCIAL SERVICES MANAGER us Gustavo Salmeron MD LABORATORY Final Result [facility] [place] [address], * XR PELVIS 1 OR 2 VIEWS (11/19/2020 11:11 AM FINANCIAL SERVICES MANAGER) Anatomical Region Laterality Modality Pelvis Radiographic [place] ging 11/19/2020 1:06 PM FINANCIAL SERVICES MANAGER Impressions 11/19/2020 1:07 PM FINANCIAL SERVICES MANAGER IMPRESSION: 1) Intraoperative check right hip arthroplasty. Referred By: GUSTAVO SALMERON Interpreted By: Harshal Marie MD, 11/19/2020 1:06 PM Narrative 11/19/2020 1:07 PM FINANCIAL SERVICES MANAGER Examination: XR PELVIS 1 OR 2 VIEWS Exam time: 11/19/2020 11:11 AM Clinical history: Right hip arthroplasty, intraoperative check Comparison: 11/06/2020 Technique: Intraoperative crosstable AP right hip Findings: Operative changes with small amount of soft tissue gas. Total right hip prosthesis components in process of placement. No evidence of acute fracture. Procedure Note Harshal Marie MD - 11/19/2020 Examination: XR PELVIS 1 OR 2 VIEWS Exam time: 11/19/2020 11:11 AM Clinical history: Right hip arthroplasty, intraoperative check Comparison: 11/06/2020 Technique: Intraoperative crosstable AP right hip Findings: Operative changes with small amount of soft tissue gas. Total right hip prosthesis components in process of placement. No evidence of acute fracture. IMPRESSION: 1) Intraoperative check right hip arthroplasty. Referred By: GUSTAVO SALMERON Interpreted By: Harshal Marie MD, 11/19/2020 1:06 PM Gustavo Salmeron MD GENERAL IMAGING Final Result documented in this encounter Visit Diagnoses Diagnosis Status post right hip replacement Hip joint replacement by other means Primary osteoarthritis of right hip Primary localized osteoarthrosis, pelvic region and thigh Primary osteoarthritis of right hip Primary localized osteoarthrosis, pelvic region and thigh Status post right hip replacement Hip joint replacement by other means documented in this encounter Administered Medications Inactive Administered Medications - up to 3 most recent administrations Medication Order MAR Action Action Date Dose Rate Site acetaminophen (TYLENOL) 500 MG tablet 1 dose, Starting on Thu11/19/20 at 0704, Until Thu11/19/20 at 0827, Created by cabinet override acetaminophen (TYLENOL) tablet 1,000 mg 1,000 mg, Oral, Once, 1 dose, On Thu11/19/20 at 0830, Maximum dose of acetaminophen is 4000 mg from all sources in 24 hours., Pre-Op Given 11/19/2020 8:27 AM FINANCIAL SERVICES MANAGER 1,000 mg aspirin EC (ECOTRIN) tablet 325 mg 325 mg, Oral, 2 times daily with meals, First dose on Thu11/20/20 at 0800, Until Discontinued, Start the morning after surgery Do not break, chew, or crush., Post-Op Given 11/21/2020 8:49 AM FINANCIAL SERVICES MANAGER 325 mg Given 11/20/2020 4:45 PM FINANCIAL SERVICES MANAGER 325 mg Given 11/20/2020 8:38 AM FINANCIAL SERVICES MANAGER 325 mg atorvastatin (LIPITOR) tablet 40 mg 40 mg, Oral, Nightly at bedtime, First dose (after last modification) on Thu11/19/20 at 2100, Until Discontinued Given 11/20/2020 8:37 PM FINANCIAL SERVICES MANAGER 40 mg ceFAZolin (ANCEF) 3 g in NS 100 mL IVPB 3 g, Intravenous, at 200 mL/hr, Every 8 hours, 2 doses, First dose on Thu11/19/20 at 1730, Last dose on Thu11/20/20 at 0130, Give 3 gram dose for patients 120 kg and greater. PHARMACY TO ADJUST administration times based on pre-op/intra-op dose. Do NOT continue greater than 24 hours after anesthesia end time., Post-Op New Bag 11/20/2020 1:16 AM FINANCIAL SERVICES MANAGER 3 g 200 mL/hr New Bag 11/19/2020 4:47 PM FINANCIAL SERVICES MANAGER 3 g 200 mL/hr celecoxib (CeleBREX) 100 MG capsule 1 dose, Starting on Thu11/19/20 at 0703, Until Thu11/19/20 at 0828, Created by cabinet override celecoxib (CeleBREX) capsule 100 mg 100 mg, Oral, Once, 1 dose, On Thu11/19/20 at 0830, Do not administer with antacids, Pre-Op Given 11/19/2020 8:2 8 AM FINANCIAL SERVICES MANAGER 100 mg chlorhexidine (PERIDEX) 0.12 % solution 15 mL 15 mL, Mouth/Throat, PRN, Prior to surgery, 1 dose, Starting on Thu11/19/20 at 0813, Until Thu11/19/20 at 0827, Patient to perform oral care first. Swish/Gargle in mouth for 30 seconds, and then discard, prior to going to surgery/ If ventilated use saturated swab to clean oral cavity., Pre-Op Given 11/19/2020 8:27 AM FINANCIAL SERVICES MANAGER 15 mLs diphenhydrAMINE (BENADRYL) injection 12.5 mg 12.5 mg, Intravenous, Every 6 hours PRN, Itching, Starting on Thu11/19/20 at 1306, Until Thu11/21/20 at 1718, For IV administration, give no faster than 25 mg/min., Post-Op docusate sodium (COLACE) capsule 100 mg 100 mg, Oral, Daily, First dose on Thu11/19/20 at 1400, Until Discontinued, Post-Op Given 11/21/2020 8:50 AM FINANCIAL SERVICES MANAGER 100 mg ezetimibe (ZETIA) tablet 10 mg 10 mg, Oral, Nightly at bedtime, First dose (after last modification) on Thu11/19/20 at 2100, Until Discontinued Given 11/20/2020 8:38 PM FINANCIAL SERVICES MANAGER 10 mg famotidine (PEPCID) injection 20 mg 20 mg, Intravenous, Every 12 hours scheduled, First dose on Thu11/19/20 at 2100, Until Discontinued, Give if unable to take PO. IV Push over 2 minutes, Post-Op famotidine (PEPCID) tablet 20 mg 20 mg, Oral, Every 12 hours scheduled, First dose on Thu11/19/20 at 2100, Until Discontinued, Post-Op Given 11/21/2020 8:50 AM FINANCIAL SERVICES MANAGER 20 mg Given 11/20/2020 8:37 PM FINANCIAL SERVICES MANAGER 20 mg Given 11/20/2020 8:38 AM FINANCIAL SERVICES MANAGER 20 mg HYDROcodone-acetaminophen (NORCO) 10-325 MG tablet 1 tablet 1 tablet, Oral, Every 4 hours PRN, Moderate pain (Scale 4 - 7), Starting on Thu11/19/20 at 1307, Until Thu11/21/20 at 1718, Maximum dose of acetaminophen is 4000 mg from all sources in 24 hours., Post-Op Given 11/21/2020 1:03 PM FINANCIAL SERVICES MANAGER 1 tablet Given 11/21/2020 5:40 AM FINANCIAL SERVICES MANAGER 1 tablet Given 11/20/2020 8:37 PM FINANCIAL SERVICES MANAGER 1 tablet lactated ringers bolus infusion 500 mL 500 mL, Intravenous, Administer over 15 Minutes, Once, 1 dose, On Thu11/20/20 at 1400 New Bag 11/20/2020 2:17 PM FINANCIAL SERVICES MANAGER 500 mLs lactated ringers bolus infusion 500 mL 500 mL, Intravenous, Administer over 15 Minutes, Once, 1 dose, On Thu11/21/20 at 1400 New Bag 11/21/2020 1:51 PM FINANCIAL SERVICES MANAGER 500 mLs lactated ringers infusion at 10 mL/hr, Intravenous, Continuous, Starting on Thu11/19/20 at 0830, Until Thu11/20/20 at 0731, Infuse at TKO rate, Pre-Op New Bag 11/19/2020 10:38 AM FINANCIAL SERVICES MANAGER New Bag 11/19/2020 8:27 AM FINANCIAL SERVICES MANAGER 10 mL/hr lactated ringers infusion at 75 mL/hr, Intravenous, Continuous, Starting on Thu11/19/20 at 1330, Until Thu11/20/20 at 0731, May discontinue IV Fluid when adequate oral intake, Post-Op New Bag 11/20/2020 4:43 AM FINANCIAL SERVICES MANAGER 75 mL/hr New Bag 11/19/2020 2:13 PM FINANCIAL SERVICES MANAGER 75 mL/hr levothyroxine (SYNTHROID) tablet 125 mcg 125 mcg, Oral, Daily, First dose on Thu11/19/20 at 1330, Until Discontinued, Avoid iron, calcium, and antacids within 4 hours of administration. Given 11/21/2020 8:50 AM FINANCIAL SERVICES MANAGER 125 mcg morphine injection 1 mg 1 mg, Intravenous, Every 1 hour PRN, Moderate pain (Scale 4 - 7), Severe pain (Scale 8 - 10), Breakthrough pain, Starting on Thu11/19/20 at 1306, Until Thu11/21/20 at 1718, Also OK to use oral pain medications and opioids per surgery orders if patient has pain level greater than 1., Post-Op naLOXone (NARCAN) 0.04 mg in sodium chloride (PF) 0.9 % IV syringe 0.04 mg, Intravenous, Every 5 min PRN, Other, for itching if?diphenhydramine is not effective, 4 doses, Starting on Thu11/19/20 at 1306, Until Thu11/21/20 at 1718, NALOXONE DOSE/DILUTION Dilute naloxone 0.4 mg (1 mL) with 9 mL NS to achieve concentration of 0.04 mg/mL. Admin/calculated amount is based on a concentration of 0.04 mg/mL. Administer each dose over 5-8 seconds. , Post-Op naLOXone (NARCAN) injection 0.4 mg 0.4 mg, Intravenous, As needed, Opioid reversal, POSS of 4, if patient exhibits somnolence, excessive sedation, or respiratory rate is less than 8 breaths per minute., 2 doses, Starting on Thu11/19/20 at 1306, Until Thu11/21/20 at 1718, Administer every 2 minutes as needed for 2 doses., Post-Op nortriptyline (PAMELOR) capsule 25 mg 25 mg, Oral, Nightly at bedtime, First dose on Thu11/19/20 at 2100, Until Discontinued Given 11/20/2020 8:38 PM FINANCIAL SERVICES MANAGER 25 mg pantoprazole EC (PROTONIX) tablet 40 mg 40 mg, Oral, Daily, First dose on Thu11/19/20 at 1400, Until Discontinued, Do not break, chew, or crush. Given 11/21/2020 8:50 AM FINANCIAL SERVICES MANAGER 40 mg pregabalin (LYRICA) capsule 200 mg 200 mg, Oral, 2 times daily, First dose on Thu11/19/20 at 1400, Until Discontinued Given 11/21/2020 8:49 AM FINANCIAL SERVICES MANAGER 200 m g Given 11/20/2020 8:38 PM FINANCIAL SERVICES MANAGER 200 mg propranolol (INDERAL) tablet 80 mg 80 mg, Oral, 2 times daily, First dose on Thu11/19/20 at 1400, Until Discontinued Given 11/21/2020 8:49 AM FINANCIAL SERVICES MANAGER 80 mg Given 11/20/2020 8:38 PM FINANCIAL SERVICES MANAGER 80 mg rOPINIRole (REQUIP) tablet 4 mg 4 mg, Oral, Nightly at bedtime, First dose on Thu11/19/20 at 2100, Until Discontinued Given 11/20/2020 8:37 PM FINANCIAL SERVICES MANAGER 4 mg spironolactone (ALDACTONE) tablet 100 mg 100 mg, Oral, Daily, First dose on Thu11/19/20 at 1400, Until Discontinued Given 11/21/2020 8:50 AM FINANCIAL SERVICES MANAGER 100 mg venlafaxine XR (EFFEXOR-XR) 24 hr capsule 150 mg 150 mg, Oral, Daily, First dose on Thu11/19/20 at 1400, Until Discontinued, Swallow capsule whole or it may be opened and the contents sprinkled on applesauce. Given 11/21/2020 8:50 AM FINANCIAL SERVICES MANAGER 150 mg documented in this encounter Active and Recently Administered Medications Times are shown in FINANCIAL SERVICES MANAGER. Scheduled Medication Order 11/19/2020 11/20/2020 11/21/2020 acetaminophen (TYLENOL) tablet 1,000 mg (COMPLETED) 1,000 mg, Oral, Once, 1 dose, On Thu11/19/20 at 0830, Maximum dose of acetaminophen is 4000 mg from all sources in 24 hours., Pre-Op 08 (Given - Provider: Setphanie Bernal RN) aspirin EC (ECOTRIN) tablet 325 mg 325 mg, Oral, 2 times daily with meals, First dose on Thu11/20/20 at 0800, Until Discontinued, Start the morning after surgery Do not break, chew, or crush., Post-Op 08 (Given - Provider: Nory Whitaker, PRITI)1645 (Given - Provider: Nory Whitaker, PRITI) 0849 (Given - Provider: Vicki Foote, PRITI)1700 (Canceled Entry - Provider: Automatic Discharge Provider - Comment: Automatically canceled at discontinue of medication order) atorvastatin (LIPITOR) tablet 40 mg 40 mg, Oral, Nightly at bedtime, First dose (after last modification) on Thu11/19/20 at 2100, Until Discontinued 2140 (Not Given - Provider: Miradna Winkler RN - Reason: Patient/family declined) 2036 (Given - Provider: Queta Ugarte RN) ceFAZolin (ANCEF) 3 g in NS 100 mL IVPB (COMPLETED)(Linked Group 1) 3 g, Intravenous, at 200 mL/hr, crew caller, 1 dose, On Thu11/19/20 at 0830, Give 3 gram dose for patients 120 kg and greater. Give within 60 minutes of surgical incision., Pre-Op 0925 (Given - Provider: Aki Wallis CRNA)0955 (Infusion Stop Time - Provider: Aki Wallis CRNA)1215 (Anesthesia Volume Adjustment - Provider: Aki Wallis CRNA) ceFAZolin (ANCEF) 3 g in NS 100 mL IVPB (COMPLETED)(Linked Group 2) 3 g, Intravenous, at 200 mL/hr, Every 8 hours, 2 doses, First dose on Thu11/19/20 at 1730, Last dose on Thu11/20/20 at 0130, Give 3 gram dose for patients 120 kg and greater. PHARMACY TO ADJUST administration times based on pre-op/intra-op dose. Do NOT continue greater than 24 hours after anesthesia end time., Post-Op 164 (New Bag - Provider: Nory Whitaker RN)1720 (Infusion Stop Time - Provider: Nory Whitaker RN) 0116 (New Bag - Provider: Miranda Winkler RN)0146 (Infusion Stop Time - Provider: Miranda Winkler RN) celecoxib (CeleBREX) capsule 100 mg (COMPLETED) 100 mg, Oral, Once, 1 dose, On Thu11/19/20 at 0830, Do not administer with antacids, Pre-Op 0828 (Given - Provider: Stephanie Bernal RN) docusate sodium (COLACE) capsule 100 mg 100 mg, Oral, Daily, First dose on Thu11/19/20 at 1400, Until Discontinued, Post-Op 1411 (Not Given - Provider: Nory Whitaker RN - Reason: Patient/family declined) 0726 (Not Given - Provider: Nory Whitaker RN - Reason: Patient/family declined) 0850 (Given - Provider: Vicki Foote, PRITI) ezetimibe (ZETIA) tablet 10 mg 10 mg, Oral, Nightly at bedtime, First dose (after last modification) on Thu11/19/20 at 2100, Until Discontinued 2141 (Not Given - Provider: Miranda Winkler RN - Reason: Patient/family declined) 2037 (Given - Provider: Queta Ugarte, PRITI) famotidine (PEPCID) injection 20 mg(Linked Group 3) 20 mg, Intravenous, Every 12 hours scheduled, First dose on Thu11/19/20 at 2100, Until Discontinued, Give if unable to take PO. IV Push over 2 minutes, Post-Op 2141 (See Alternative - Provider: Miranda Winkler RN) 0838 (See Alternative - Provider: Nory Whitaker RN)2036 (See Alternative - Provider: Queta Ugarte, PRITI) 0850 (See Alternative - Provider: Vicki Foote, PRITI) famotidine (PEPCID) tablet 20 mg(Linked Group 3) 20 mg, Oral, Every 12 hours scheduled, First dose on Thu11/19/20 at 2100, Until Discontinued, Post-Op 2141 (Given - Provider: Miranda Winkler RN) 0838 (Given - Provider: Nory Whitaker RN)2036 (Given - Provider: Queta Ugarte RN) 0850 (Given - Provider: Vicki Foote, PRITI) lactated ringers bolus infusion 500 mL (COMPLETED) 500 mL, Intravenous, Administer over 15 Minutes, Once, 1 dose, On Thu11/20/20 at 1400 1417 (New Bag - Provider: Amanda Polk, RN)1524 (Infusion Stop Time - Provider: Nory Whitaker RN) lactated ringers bolus infusion 500 mL (COMPLETED) 500 mL, Intravenous, Administer over 15 Minutes, Once, 1 dose, On Thu11/21/20 at 1400 1351 (New Bag - Provider: Vicki Foote, RN)1430 (Infusion Stop Time - Provider: Vicki Foote, RN) levothyroxine (SYNTHROID) tablet 125 mcg 125 mcg, Oral, Daily, First dose on Thu11/19/20 at 1330, Until Discontinued, Avoid iron, calcium, and antacids within 4 hours of administration. 1413 (Not Given - Provider: Nory Whitaker RN - Reason: Patient/family declined) 0726 (Not Given - Provider: Nory Whitaker RN - Reason: Patient/family declined) 0850 (Given - Provider: Vicki Foote, PRITI) nortriptyline (PAMELOR) capsule 25 mg 25 mg, Oral, Nightly at bedtime, First dose on Thu11/19/20 at 2100, Until Discontinued 2143 (Not Given - Provider: Miranda Winkler RN - Reason: Patient/family declined) 2038 (Given - Provider: Queta Ugarte RN) pantoprazole EC (PROTONIX) tablet 40 mg 40 mg, Oral, Daily, First dose on Thu11/19/20 at 1400, Until Discontinued, Do not break, chew, or crush. 1402 (Not Given - Provider: Nory Whitaker RN - Reason: Patient already took) 0726 (Not Given - Provider: Nory Whitaker RN - Reason: Patient/family declined) 0850 (Given - Provider: Vicki Foote RN) pregabalin (LYRICA) capsule 200 mg 200 mg, Oral, 2 times daily, First dose on Thu11/19/20 at 1400, Until Discontinued 1444 (Not Given - Provider: Nory Whitaker RN - Reason: Patient/family declined)2142 (Not Given - Provider: Miranda Winkler RN - Reason: Patient/family declined) 07 (Not Given - Provider: Nory Whitaker RN - Reason: Patient/family declined)2037 (Given - Provider: Queta Ugarte, RN) 0849 (Given - Provider: Vicki Foote, RN) propranolol (INDERAL) tablet 80 mg 80 mg, Oral, 2 times daily, First dose on Thu11/19/20 at 1400, Until Discontinued 144 (Not Given - Provider: Nory Whitaker RN - Reason: Patient/family declined)2142 (Not Given - Provider: Miranda Winkler RN - Reason: Patient/family declined) 726 (Not Given - Provider: Nory Whitaker RN - Reason: Patient/family declined)2037 (Given - Provider: Queta Ugarte, PRITI) 0849 (Given - Provider: Vicki Foote, PRITI) rOPINIRole (REQUIP) tablet 4 mg 4 mg, Oral, Nightly at bedtime, First dose on Thu11/19/20 at 2100, Until Discontinued 2142 (Not Given - Provider: Miranda Winkler RN - Reason: Patient/family declined) 2036 (Given - Provider: Queta Ugarte, PRITI) spironolactone (ALDACTONE) tablet 100 mg 100 mg, Oral, Daily, First dose on Thu11/19/20 at 1400, Until Discontinued 144 (Not Given - Provider: Nory Whitaker RN - Reason: Patient/family declined) 0727 (Not Given - Provider: Nory Whitaker RN - Reason: Patient/family declined) 0850 (Given - Provider: Vicki Foote, PRITI) tranexamic acid (CYKLOKAPRON) injection 1,000 mg (COMPLETED) 1,000 mg, Intravenous, Once, 1 dose, On Thu11/19/20 at 0830, PHARMACIST TO ADJUST dose based on SCr (SCr less than 1.6 = 1,000 mg; SCr 1.6-3.3 = 750 mg; SCr 3.4-6.6 = 500 mg; SCr greater than 6.6 = 250 mg). Administer dose over 15 minutes prior to incision., Pre-Op 0936 (Given - Provider: Aki Wallis CRNA) venlafaxine XR (EFFEXOR-XR) 24 hr capsule 150 mg 150 mg, Oral, Daily, First dose on Thu11/19/20 at 1400, Until Discontinued, Swallow capsule whole or it may be opened and the contents sprinkled on applesauce. 1445 (Not Given - Provider: Nory Whitaker RN - Reason: Patient/family declined) 0727 (Not Given - Provider: Nory Whitaker RN - Reason: Patient/family declined) 0850 (Given - Provider: Vicki Foote RN) Continuous Medication Order 11/19/2020 11/20/2020 11/21/2020 lactated ringers infusion (CANCELED) at 10 mL/hr, Intravenous, Continuous, Starting on Thu11/19/20 at 0830, Until Thu11/20/20 at 0731, Infuse at TKO rate, Pre-Op 0827 (New Bag - Provider: Stephanie Bernal RN)1038 (New Bag - Provider: Aki Wallis CRNA)1205 (Anesthesia Volume Adjustment - Provider: Aki Wallis CRNA)1207 (Anesthesia Volume Adjustment - Provider: Aki Wallis CRNA)1215 (Anesthesia Volume Adjustment - Provider: Aki Wallis CRNA) lactated ringers infusion (CANCELED) at 75 mL/hr, Intravenous, Continuous, Starting on Thu11/19/20 at 1330, Until Thu11/20/20 at 0731, May discontinue IV Fluid when adequate oral intake, Post-Op 1341 (Continued to Floor - Provider: Nory Whitaker RN)1413 (New Bag - Provider: Nory Whitaker RN) 0442 (Infusion Stop Time - Provider: Jenny Frost RN)0443 (New Bag - Provider: Jenny Frost RN)0730 (Infusion Stop Time - Provider: Nory Whitaker RN) PRN Medication Order 11/19/2020 11/20/2020 11/21/2020 ALPRAZolam (XANAX) tablet 0.25 mg 0.25 mg, Oral, Every 8 hours PRN, Anxiety, Starting on Thu11/19/20 at 1307, Until Thu11/21/20 at 1718 bisacodyl EC (DULCOLAX) tablet 5 mg 5 mg, Oral, Daily as needed, Constipation, Starting on Thu11/19/20 at 1307, Until Thu11/21/20 at 1718, Do not break, chew, or crush., Post-Op chlorhexidine (PERIDEX) 0.12 % solution 15 mL (COMPLETED) 15 mL, Mouth/Throat, PRN, Prior to surgery, 1 dose, Starting on Thu11/19/20 at 0813, Until Thu11/19/20 at 0827, Patient to perform oral care first. Swish/Gargle in mouth for 30 seconds, and then discard, prior to going to surgery/ If ventilated use saturated swab to clean oral cavity., Pre-Op 826 (Given - Provider: Stephanie Bernal RN) diphenhydrAMINE (BENADRYL) injection 12.5 mg 12.5 mg, Intravenous, Every 6 hours PRN, Itching, Starting on Thu11/19/20 at 1306, Until Thu11/21/20 at 1718, For IV administration, give no faster than 25 mg/min., Post-Op HYDROcodone-acetaminophe n (NORCO) 10-325 MG tablet 1 tablet 1 tablet, Oral, Every 4 hours PRN, Moderate pain (Scale 4 - 7), Starting on Thu11/19/20 at 1307, Until Thu11/21/20 at 1718, Maximum dose of acetaminophen is 4000 mg from all sources in 24 hours., Post-Op 2138 (Given - Provider: Miranda Winkler RN) 0725 (Given - Provider: Nory Whitaker RN)2036 (Given - Provider: Queta Ugarte, PRITI) 0540 (Given - Provider: Queta Ugarte, PRITI)1303 (Given - Provider: Vicki Foote RN) HYDROcodone-acetaminophe n (NORCO) 5-325 MG tablet 1 tablet 1 tablet, Oral, Every 4 hours PRN, Mild pain (Scale 1 - 3), Starting on Thu11/19/20 at 1307, Until Thu11/21/20 at 1718, Maximum dose of acetaminophen is 4000 mg from all sources in 24 hours., Post-Op HYDROcodone-acetaminophe n (NORCO) 5-325 MG tablet 1 tablet 1 tablet, Oral, Every 4 hours PRN, Other, Anticipatory pain, Starting on Thu11/19/20 at 1307, Until Thu11/21/20 at 1718, Administer 30 minutes prior to physical/occupational therapy if needed for anticipatory pain, Post-Op morphine injection 1 mg 1 mg, Intravenous, Every 1 hour PRN, Moderate pain (Scale 4 - 7), Severe pain (Scale 8 - 10), Breakthrough pain, Starting on Thu11/19/20 at 1306, Until Thu11/21/20 at 1718, Also OK to use oral pain medications and opioids per surgery orders if patient has pain level greater than 1., Post-Op naLOXone (NARCAN) 0.04 mg in sodium chloride (PF) 0.9 % IV syringe 0.04 mg, Intravenous, Every 5 min PRN, Other, for itching if?diphenhydramine is not effective, 4 doses, Starting on Thu11/19/20 at 1306, Until Thu11/21/20 at 1718, NALOXONE DOSE/DILUTION Dilute naloxone 0.4 mg (1 mL) with 9 mL NS to achieve concentration of 0.04 mg/mL. Admin/calculated amount is based on a concentration of 0.04 mg/mL. Administer each dose over 5-8 seconds. , Post-Op naLOXone (NARCAN) injection 0.4 mg 0.4 mg, Intravenous, As needed, Opioid reversal, POSS of 4, if patient exhibits somnolence, excessive sedation, or respiratory rate is less than 8 breaths per minute., 2 doses, Starting on Thu11/19/20 at 1306, Until Thu11/21/20 at 1718, Administer every 2 minutes as needed for 2 doses., Post-Op ondansetron (ZOFRAN) injection 4 mg 4 mg, Intravenous, Every 8 hours PRN, Nausea, Vomiting, Starting on Thu11/19/20 at 1307, Until Thu11/21/20 at 1718, If more than one antiemetic is ordered use in this order: ondansetron then metoclopramide. If nausea / vomiting still not controlled move to next ordered medication., Post-Op polyethylene glycol (GLYCOLAX) packet 17 g 17 g, Oral, Daily as needed, Constipation, Starting on Thu11/19/20 at 1307, Until Thu11/21/20 at 1718, Post-Op Senna (SENOKOT) 8.6 MG tablet 8.6 mg 8.6 mg, Oral, Daily as needed, Constipation, Starting on Thu11/19/20 at 1307, Until Thu11/21/20 at 1718, Post-Op sodium chloride 0.9 % 3,000 mL with gentamicin 320 mg irrigation (CANCELED) As needed, Starting on Thu11/19/20 at 1021, Until Thu11/19/20 at 1209, Intra-Op 1021 (Given - Provider: Gustavo Salmeron MD) Linked Groups Order Group 1: ceFAZolin (ANCEF) 2 g in NS 100 mL IVPB (CANCELED) 2 g, Intravenous, at 200 mL/hr, crew caller, 1 dose, On Thu11/19/20 at 0830, Give 2 gram dose for patients less than 120 kg. Give within 60 minutes of surgical incision., Pre-Op Or ceFAZolin (ANCEF) 3 g in NS 100 mL IVPB (COMPLETED)Jump to med 3 g, Intravenous, at 200 mL/hr, crew caller, 1 dose, On Thu11/19/20 at 0830, Give 3 gram dose for patients 120 kg and greater. Give within 60 minutes of surgical incision., Pre-Op Group 2: ceFAZolin (ANCEF) 2 g in NS 100 mL IVPB (CANCELED) 2 g, Intravenous, at 200 mL/hr, Every 8 hours, 2 doses, First dose on Thu11/19/20 at 1330, Last dose on Thu11/19/20 at 2130, Give 2 gram dose for patients less than 120 kg. PHARMACY TO ADJUST administration times based on pre-op/intra-op dose. Do NOT continue greater than 24 hours after anesthesia end time., Post-Op Or ceFAZolin (ANCEF) 3 g in NS 100 mL IVPB (COMPLETED)Jump to med 3 g, Intravenous, at 200 mL/hr, Every 8 hours, 2 doses, First dose on Thu11/19/20 at 1730, Last dose on Thu11/20/20 at 0130, Give 3 gram dose for patients 120 kg and greater. PHARMACY TO ADJUST administration times based on pre-op/intra-op dose. Do NOT continue greater than 24 hours after anesthesia end time., Post-Op Group 3: famotidine (PEPCID) injection 20 mgJump to med 20 mg, Intravenous, Every 12 hours scheduled, First dose on Thu11/19/20 at 2100, Until Discontinued, Give if unable to take PO. IV Push over 2 minutes, Post-Op Or famotidine (PEPCID) tablet 20 mgJump to med 20 mg, Oral, Every 12 hours scheduled, First dose on Thu11/19/20 at 2100, Until Discontinued, Post-Op documented in this encounter Care Teams Radarman Relationship Specialty Start Date End Date Stella Obrien MD [address] [place] [address] PCP - General INTERNAL MEDICINE 08/02/20 documented as of this encounter
--- OUTSIDE RECORDS SUMMARY | 2024-09-13 06:34 | XMS_ITS | Encounter Summary ---
Author Organization [facility] Address Formerly [facility]6 [facility] 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 Answer Date of Assessment Author Status No 11/19/2020 1:16 PM MECHANICAL MAINTENANCE INSTRUCTOR Activ e * Do you have serious [...] every 8 (eight) hours as needed. 05/25/2020 05/05/202 1 aspirin EC 81 MG tabletIndications:St atus post right hip replacement,Primary osteoarthritis of right hip Take 1 tablet (81 mg total) by mouth 2 (two) times daily with meals for 40 days. 80 tablet 11/21/2020 1 busPIRone 15 MG tablet Take 1 tablet (15 mg total) by mouth daily as needed. 11/26/2020 4 EUTHYROX 125 MCG tablet Take 1 tablet (125 mcg total) by mouth daily. 07/15/2020 3 furosemide 20 MG tablet Take 1 tablet (20 mg total) by mouth as needed. 01/14/2020 3 HYDROcodone-acetamin ophen 5-325 MG tabletIndications:Ac [place] Pain < 7 Day Supply Take 1 tablet by mouth every 4 (four) hours as needed for Pain. Indications: Acute Pain < 7 Day Supply 30 tablet 11/20/2020 1 Misc. Devices (COMMODE 3-IN-1) MiscIndications:Stat us post right hip replacement,Primary osteoarthritis of right hip 1 each by Does not apply route daily as needed. 1 each 11/21/2020 1 oxyCODONE-acetaminop hen 5-325 MG tabletIndications:Ch ronic Pain Take 1 tablet by mouth every 4 (four) hours as needed. Indications: Chronic Pain 30 tablet 11/30/2020 1 pregabalin (LYRICA) 100 MG capsule Take 2 capsules by mouth 2 (two) times a day. 02/09/2014 1 propranolol LA 160 MG 24 hr capsule Take 1 capsule (160 mg total) by mouth daily. 05/11/2020 3 spironolactone 100 MG tablet Take 1 tablet by mouth daily. 01/20/2020 2 documented as of this encounter Plan [...] Comments XR PELVIS AP+RT HIP 1V Routine 11/30/2020 10:37 AM CDT Primary osteoarthritis of right hip Status post total replacement of left hip documented in this encounter Results * XR PELVIS AP+RT HIP 1V (11/30/2020 10:37 AM CDT) Anatomical Region Laterality Modality Pelvis, Hip Radiographic Charlotte ging 11/30/2020 10:5 1 AM CDT Impressions 11/30/2020 10:53 AM CDT IMPRESSION: 1. ??TOTAL RIGHT HIP ARTHROPLASTY WITHOUT EVIDENCE OF COMPLICATION. Signed: Harshal Marie MD Referred By: ?? Interpreted By: Harshal Marie MD, 11/30/2020 10:51 AM Narrative 11/30/2020 10:53 AM CDT PATIENT NAME: KEEGAN MILLS EXAM: Pelvis and right hip one view DATE OF EXAM: 11/30/2020 COMPARISON EXAM: 11/19/2020 INDICATION: Right hip arthroplasty postop check TECHNIQUE: Standing AP bilateral hips and oblique right hip FINDINGS: Total right hip arthroplasty. ??No evidence of complication involving the hardware. ??There is no evidence to suggest acute fracture or focal lytic bone destructive lesion. Procedure Note Harshal Marie MD - 11/30/2020 PATIENT NAME: KEEGAN MILLS EXAM: Pelvis and right hip one view DATE OF EXAM: 11/30/2020 COMPARISON EXAM: 11/19/2020 INDICATION: Right hip arthroplasty postop check TECHNIQUE: Standing AP bilateral hips and oblique right hip FINDINGS: Total right hip arthroplasty. No evidence of complicationinvolving the hardware. There is no evidence to suggest acute fracture orfocal lytic bone destructive lesion. IMPRESSION: 1. TOTAL RIGHT HIP ARTHROPLASTY WITHOUT EVIDENCE OF COMPLICATION. Signed: Harshal Marie MD Referred By: Interpreted By: Harshal Marie MD, 11/30/2020 10:51 AM Gustavo So MD GENERAL IMAGING Final Result documented in this encounter Visit Diagnoses Diagnosis Primary osteoarthritis of right hip Primary localized osteoarthrosis, pelvic region and thigh Status post total replacement of left hip documented in this encounter Care Teams Heater Furnace Relationship Specialty Start Date End Date Sebastien Sequeira MD [address] [place] [address] PCP - General INTERNAL MEDICINE 08/02/20 documented as of this encounter
--- OUTSIDE RECORDS SUMMARY | 2024-09-13 06:34 | XMS_ITS | Encounter Summary ---
Author Organization [facility] Address [facility] [place] [place] [address] [place] [address] Care Team Providers Care Television Receiver Analyzer Name Role Phone Sebastien Sequeira MD Primary Care Provider [phone] Encounter Details Date Type Department Care Team (Latest Contact Info) Description 12/26/2020 Travel Social History Tobacco Use Types Packs/Day [...] have Coronavirus / COVID-19? 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 Answer Date of Assessment Author Status No 11/19/2020 1:16 PM SENIOR BUSINESS ARCHITECT Activ e * Do you have serious [...] on filedocumented in this encounter Care Teams Television Receiver Analyzer Relationship Specialty Start Date End Date Sebastien Sequeira MD [address] [place] [phone] PCP - General INTERNAL MEDICINE 08/02/20 documented as of this encounter
--- OUTSIDE RECORDS SUMMARY | 2024-09-13 06:34 | XMS_ITS | Encounter Summary ---
Author Organization [facility] Address [facility]6 [facility] [place] [address] [place] [address] Care Team Providers Care Tub Puller Name Role Phone Sebastien Sequeira MD Primary Care Provider [phone] Encounter Details Date Type Department Care Team (Latest Contact Info) Description 12/10/2020 Travel Social History Tobacco Use Types Packs/Day [...] have Coronavirus / COVID-19? 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 Answer Date of Assessment Author Status No 11/19/2020 1:16 PM ASSOCIATE MANAGER AFFILIATE MARKETING Activ e * Do you have serious [...] on filedocumented in this encounter Care Teams Tub Puller Relationship Specialty Start Date End Date Sebastien Sequeira MD [address] [place] [phone] PCP - General INTERNAL MEDICINE 08/02/20 documented as of this encounter
--- OUTSIDE RECORDS SUMMARY | 2024-09-13 06:34 | XMS_ITS | Encounter Summary ---
Author Organization [facility] Address [facility]6 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 Answer Date of Assessment Author Status No 11/19/2020 1:16 PM SHIP WIRER Activ e * Do you have serious [...] Procedure Name Priority Date/Time Associated Diagnosis Comments URINALYSIS WI REFLEX TO CULTURE Routine 06/12/2021 9:56 AM CDT Osteoarthritis of glenohumeral joint, right Rotator cuff tear arthropathy, unspecified laterality MRSA SCREENING Routine 06/12/2021 9:51 AM CDT Osteoarthritis of glenohumeral joint, right Rotator cuff tear arthropathy, unspecified laterality BASIC METABOLIC PANEL Routine 06/12/2021 9:50 AM CDT Osteoarthritis of glenohumeral joint, right Rotator cuff tear arthropathy, unspecified laterality CBC W/DIFF AUTOMATED Routine 06/12/2021 9:50 AM CDT Chronic right shoulder pain Osteoarthritis of glenohumeral joint, right Rotator cuff tear arthropathy, unspecified laterality documented in this encounter Results * (ABNORMAL) URINALYSIS WI REFLEX TO CULTURE (06/12/2021 9:56 AM CDT) COLOR (U) YELLOW 06/12/2021 10:19 AM CDT [facility] TRANSPARENCY CLEAR 06/12/2021 10:19 AM CDT [facility] SPECIFIC GRAVITY (U) 1.030(H) 1.000 - 1.025 06/12/2021 10:19 AM CDT [facility] Comment:EQUAL TO OR GREATER THAN U PH 6.0 5.0 - 8.0 06/12/2021 10:19 AM CDT [facility] LEUKOCYTES (U) NEGATIVE NEGATIVE 06/12/2021 10:19 AM CDT [facility] NITRITES NEGATIVE NEGATIVE 06/12/2021 10:19 AM CDT [facility] PROTEIN (U) 1+(A) NEGATIVE 06/12/2021 10:19 AM CDT [facility] URINE GLUCOSE NEGATIVE NEGATIVE 06/12/2021 10:19 AM CDT [facility] KETONES MG/DL (U) NEGATIVE NEGATIVE 06/12/2021 10:19 AM CDT [facility] UROBILINOGEN 0.2 <1.0 EU/DL 06/12/2021 10:19 AM CDT [facility] BILIRUBIN (U) NEGATIVE NEGATIVE 06/12/2021 10:19 AM CDT [facility] BLOOD (U) NEGATIVE NEGATIVE 06/12/2021 10:19 AM CDT [facility] WBC/HPF RARE(A) 0 - 5 /HPF 06/12/2021 10:19 AM CDT [facility] EPI/HPF RARE /LPF 06/12/2021 10:19 AM CDT [facility] BACTERIA (U) TRACE /HPF 06/12/2021 10:19 AM CDT [facility] MUCUS PRESENT 06/12/2021 10:19 AM CDT [facility] CULTURE & SENSITIVITY INDICATED? NOT INDICATED 06/12/2021 10:20 AM CDT [facility] URINE SPECIMEN OBTAINED BY CLEAN CATCH PROCEDURE / Unknown 06/12/2021 9:56 AM CDT Gustavo So MD URINE ORDERABLES Final Result Performing Organization Address City/[facility]/ZIP Co de Phone Number [facility] [address] [place] [address], * MRSA SCREENING (06/12/2021 9:51 AM CDT) SPEC DESCRIPTION NASAL 06/12/2021 9:45 AM CDT [facility] SPECIAL REQUESTS NO SPECIAL REQUEST 06/12/2021 9:45 AM CDT [facility] RESULT Negative by Rapid PCR for Methicillin Resistant Staphylococcus aureus 06/12/2021 9:38 PM CDT [facility] SPECIMEN FROM INTERNAL NOSE / Unknown 06/12/2021 9:51 AM CDT 06/12/2021 9:53 AM CDT Gustavo So MD MICROBIOLOGY - GENERAL ORDERAB LES Final Result [facility] [address] [place] [address], [place] [phone] [facility] [address] [place] [address], * (ABNORMAL) CBC W/DIFF AUTOMATED (06/12/2021 9:50 AM CDT) WBC 6.1 4.0 - 10.8 x10'3/uL 06/12/2021 10:01 AM CDT [facility] RBC 4.26 4.10 - 5.40 x10'6/uL 06/12/2021 10:01 AM CDT [facility] HGB 10.5(L) 12.0 - 16.0 G/DL 06/12/2021 10:01 AM CDT [facility] HCT 35.7(L) 36.0 - 47.0 % 06/12/2021 10:01 AM CDT [facility] MCV 83.8 78.0 - 100.0 FL 06/12/2021 10:01 AM CDT [facility] MCH 24.6(L) 27.0 - 31.0 PG 06/12/2021 10:01 AM CDT [facility] MCHC 29.4(L) 33.0 - 36.0 G/DL 06/12/2021 10:01 AM CDT [facility] RDW 17.2(H) 11.5 - 14.5 % 06/12/2021 10:01 AM CDT [facility] PLT 244 150 - 350 x10'3/uL 06/12/2021 10:01 AM CDT [facility] MPV 8.9 7.4 - 10.4 FL 06/12/2021 10:01 AM CDT [facility] DIFFERENTIAL COMMENT NORMAL REFERENCE RANGE NOT ESTABLISHED FOR THE PROPORTIONAL LEUKOCYTE DIFFERENTIAL. 06/12/2021 10:01 AM CDT [facility] SEG NEUTROPHILS 65.0 % 10:01 AM CDT [facility] LYMPHOCYTES 20.9 % 06/12/2021 10:01 AM CDT [facility] MONOCYTES 7.6 % 06/12/2021 10:01 AM CDT [facility] EOSINOPHILS 5.6 % 06/12/2021 10:01 AM CDT [facility] BASOPHILS 0.7 % 06/12/2021 10:01 AM CDT [facility] IMMATURE GRANS % 0.2 % 06/12/20 21 10:01 AM CDT [facility] NRBC 0.0 % 06/12/2021 10:01 AM CDT [facility] ABS. NEUTROPHILS 3.95 1.60 - 8.30 x10'3/uL 06/12/2021 10:01 AM CDT [facility] ABS. LYMPHOCYTES 1.27 0.80 - 4.70 x10'3/uL 06/12/2021 10:01 AM CDT [facility] ABS. MONOCYTES 0.46 0.00 - 1.50 x10'3/uL 06/12/2021 10:01 AM CDT [facility] ABS. EOSINOPHILS 0.34 0.00 - 0.40 x10'3/uL 06/12/2021 10:01 AM CDT [facility] ABS. BASOPHILS 0.04 0.00 - 0.20 x10'3/uL 06/12/2021 10:01 AM CDT [facility] ABS. IMMATURE GRANULOCYTES 0.01 0.00 - 0.03 x10'3/uL 06/12/2021 10:01 AM CDT [facility] ABS. NUCLEATED RBC'S 0.00 0.00 x10'3/uL 06/12/2021 10:01 AM CDT [facility] 06/12/2021 9:50 AM CDT Gustavo So MD LABORATORY Final Result [facility] [address] [place] [address], * (ABNORMAL) BASIC METABOLIC PANEL (06/12/2021 9:50 AM CDT) SODIUM S/P/B 144 136 - 145 MMOL/L 06/12/2021 10:17 AM CDT [facility] POTASSIUM S/P/B 3.9 3.5 - 5.1 MMOL/L 06/12/2021 10:17 AM [facility] CHLORIDE S/P/B 107 98 - 107 MMOL/L 06/12/2021 10:17 AM [facility] CO2 29.7 21.0 - 32.0 MMOL/L 06/12/2021 10:17 AM [facility] GLUCOSE 129(H) 70 - 99 MG/DL 06/12/2021 10:17 AM [facility] Comment: FASTING GLUCOSE 100 TO 125 MG/DL IS CONSISTENT WITH IMPAIRED FASTING GLUCOSE. FASTING GLUCOSE >125 MG/DL IS CONSISTENT WITH DIABETES. RANDOM GLUCOSE >200 MG/DL WITH HYPERGLYCEMIC SYMPTOMS IS CONSISTENT WITH DIABETES. PER ADA GUIDELINES BUN 13 6 - 24 MG/DL 06/12/2021 10:17 AM [facility] CREATININE S/P/B 0.87 0.55 - 1.02 MG/DL 06/12/2021 10:17 AM [facility] CALCIUM S/P/B 8.7 8.4 - 10.5 MG/DL 06/12/2021 10:17 AM [facility] ANION GAP 7.3 5.0 - 15.0 MMOL/L 06/12/2021 10:17 AM [facility] OSMOLALITY (CALC) 300 MOSM/KG 021 10:17 AM [facility] Comment:REFERENCE RANGE NOT ESTABLISHED EGFR NON-AFR. AMER. 67(L) >89 ML/MIN/1. 73 M2 06/12/2021 10:17 AM [facility] EGFR AFR. AMER. 78(L) >89 ML/MIN/1. 73 M2 06/12/2021 10:17 AM [facility] GFR NOTES GFR REFERENCE S: 06/12/2021 10:17 AM [facility] Comment: THE ESTIMATED GFR IS CALCULATED [...] us Gustavo So MD LABORATORY Final Result [facility] [address] [place] [address], documented in this encounter Visit Diagnoses Diagnosis Osteoarthritis of glenohumeral joint, right Rotator cuff tear arthropathy, unspecified laterality Chronic right shoulder pain Pain in joint, shoulder region documented in this encounter Care Teams Safety Assistant Relationship Specialty Start Date End Date Sebastien Sequeira MD [address] [place] [phone] PCP - General INTERNAL MEDICINE 08/02/20 documented as of this encounter
--- OUTSIDE RECORDS SUMMARY | 2024-09-13 06:34 | XMS_ITS | Encounter Summary ---
Author Organization [facility] Address [facility] [place] [address] [place] [address] Care Team Providers Care Supervisor Vendor Quality Name Role Phone Stella Obrien MD Primary Care Provider [phone] Reason for Visit * Auth/Cert Specialty Diagnoses / Procedures Referred By Aaron t Referred To Contact Diagnoses M16.11 Procedures RIGHT Total Hip ArthroplastyNate notifiedOutpatient Status Referral ID Status Reason Start Date Expiration Date Visits Re quested Visits Authorized [id number] 1 1 Encounter Details Date Type Department Care Team (Late st Contact Info) Description 11/19/2020 9:47 AM OFFSET SECOND PRESS OPERATOR - 11/19/2020 11:58 AM OFFSET SECOND PRESS OPERATOR Surgery [place] [facility] [place] [address] Gustavo Salmeron MD [address] [place] [address] RIGHT Total Hip Arthroplasty Surgery Details Date/Time Status Location OR Service Patient Class Case Class Case Type Trauma Case? 11/19/2020 9:47 AM Posted SFL OR OR 2 Orthopedics Short Stay/Outpat ient Surgery No Panel 1 Procedure LRB Anes Op Region Wound Class Comments RIGHT Total Hip Arthroplasty Right Spinal Hip C lean Surgeon Surgeon Role Service Panel Gustavo Salmeron MD Primary Orthopedics 1 documented in this [...] COVID-19? No / Unsure 11/19/2020 8:08 AM OFFSET SECOND PRESS OPERATOR documented as of this encounter Last Filed Vital Signs Vital Sign Reading Time Taken Comments Blood Pressure 150/76 11/19/2020 8:22 AM OFFSET SECOND PRESS OPERATOR Pulse 95 11/19/2020 8:22 AM OFFSET SECOND PRESS OPERATOR Temperature 35.9 ??C (96.6 ??F) 11/19/2020 8:22 AM CS T Respiratory Rate 18 11/19/2020 8:22 AM OFFSET SECOND PRESS OPERATOR Oxygen Saturation 96% 11/19/2020 8:22 AM OFFSET SECOND PRESS OPERATOR Inhaled Oxygen Concentration - - Weight 129.3 kg (285 lb) 11/12/2020 9:40 AM OFFSET SECOND PRESS OPERATOR Height 177.8 cm (5' 10 ) 11/12/2020 9:40 AM OFFSET SECOND PRESS OPERATOR Body Mass Index 41.61 11/19/2020 1:00 PM OFFSET SECOND PRESS OPERATOR documented in this encounter Functional Status * RETIRED Are you deaf or do you have serious difficulty hearing Answer Date of Assessment Author Status No 11/19/2020 1:16 PM OFFSET SECOND PRESS OPERATOR Activ e * RETIRED Are you blind or do you have serious difficulty seeing, even when wearing glasses? Answer Date of Assessment Author Status No 11/19/2020 1:16 PM OFFSET SECOND PRESS OPERATOR Activ e * Do you have serious difficulty walking or climbing stairs? Answer Date of Assessment Author Status Yes 11/19/2020 1:16 PM OFFSET SECOND PRESS OPERATOR Nory Whitaker R N Active * Do you have difficulty dressing or bathing? Answer Date of Assessment Author Status No 11/19/2020 1:16 PM OFFSET SECOND PRESS OPERATOR Nory Whitaker R N Active * Because of a physical, mental, or emotional condition, do you have difficulty doing errands alone such as visiting a doctor's office or shopping? Answer Date of Assessment Author Status No 11/19/2020 1:16 PM OFFSET SECOND PRESS OPERATOR Nory Whitaker R N Active documented as of this encounter Mental Status * Because of a physical, mental, or emotional condition, do you have serious difficulty concentrating, remembering, or making decisions? Answer Entry Date Author Status No 11/19/2020 1:16 PM OFFSET SECOND PRESS OPERATOR Nory Whitaker R N Active documented in this encounter Discharge Summaries * Adele Garcia, DEVIL DOG-BC - 11/21/2020 8:47 AM CST Discharge Summary Patient: Gilma Mills is a 70-year-old female : 1950 Medical Record: [id number] Admit Date: 11/19/2020 8:08 AM Admission Diagnosis: [...] with meals for 40 days. [facility] each by Does not apply route [...] Your Medications These medications were sent to [facility] [address] [place] [id number] ?? HYDROcodone-acetaminophen 5-325 MG tablet You can get these medications from any pharmacy Bring a paper prescription for each of these medications ?? Commode 3-In-1 [facility] You don't need a prescription for these medications ?? aspirin EC 81 MG tablet Signed MUKESH FRANK ET SECOND PRESS OPERATOR documented in this encounter Discharge Instructions * Attachments The following attachments cannot be sent through Care Everywhere. * Total Hip Replacement Discharge Instructions (Botswanan) documented in this encounter Medications at Time [...] 01/14/2020 3 HYDROcodone-acetamin ophen 5-325 MG tabletIndications:Ac angela Pain < 7 Day Supply Take 1 [...] Progress Notes * Radha Ackerman PTA - 11/21/2020 2:59 PM CST 11/21/20 1325 [...] then patient stood and BP was 118/67. Adele SPOILAGE WORKER informed and ordered a bolus of fluids and patient good for discharge and encouraged patient to drink plenty of fluids, which check writer salesperson doesn't think patient is doing. Pt completed [...] of Session Safety Call light within reach ET SECOND PRESS OPERATOR * Radha Ackerman PTA - 11/21/2020 11:38 AM CST 11/21/20 0919 Therapy Visit Ordering Provider Dr. Salmeron Subjective [...] of Session Safety Call light within reach ET SECOND PRESS OPERATOR * JL Knutson - 11/21/2020 11:27 AM [...] of Session Safety Call light within reach ET SECOND PRESS OPERATOR * Vicki Foote RN - 11/21/2020 9:33 [...] Description: Mod assist of 1 Outcome: Progressing ET SECOND PRESS OPERATOR * Kathi Gonzalez OT - 11/20/2020 4:42 [...] seated up in chair Kathi Gonzalez OTR ET SECOND PRESS OPERATOR * Radha Ackerman PTA - 11/20/2020 4:12 PM CST Pt limited in ambulation due to BP dropping upon standing this afternoon. ET SECOND PRESS OPERATOR * Radha Ackerman PTA - 11/20/2020 4:11 [...] R hip. Call light within reach and VISUAL AND STOCK ASSOCIATE notified. Recommendation PT Recommendation Outpatient PT PT Equipment Recommended 2 Wheeled walker Plan PT Treatments/Interventions Gait Training;Therapeutic Exercises;Therapeutic Activities Progress Progressing toward goals PT Frequency BID End of Session Safety End of Session Safety Call light within reach ET SECOND PRESS OPERATOR * Radha Ackerman PTA - 11/20/2020 12:07 PM CST 11/20/20 09 Therapy Visit Ordering Provider Dr. Salmeron Subjective Pt sitting up in chair bathing herself upon arrival. Pt states that her pain is a 4 in right hip pre treatment. Reason for admission s/p R ALEXUS Verified Two Patient Identifiers Yes Patient consents to therapy Yes Acute Inpatient PT Time Calculation PT Start Time 0955 PT Stop Time 1023 PT Time Calculation [...] of Session Safety Call light within reach ET SECOND PRESS OPERATOR * Evelyn Torres - 11/20/2020 10:39 AM CST Patient lives at home with her . She is fairly independent at home. This is her second hip replacement. She has a walker at home. They have a ramp to get in the home. Patient said that she will do outpatient therapy at the hospital in [place]. She has no other discharge needs. 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 No ET SECOND PRESS OPERATOR * Nory Whitaker RN - 11/20/2020 9:04 [...] of Polypharmacy Outcome: Progressing Note: MD and SPOILAGE WORKER monitoring medications Problem: Discharge Planning Goal: Knowledge [...] increased mobility Outcome: Progressing Note: Continuing education ET SECOND PRESS OPERATOR * Kathi Gonzalez, OT - 11/20/2020 8:57 AM CST SFL [...] intact Sensation intact intact ROM WFL WFL Center Receptionist Strength 5/5 5/5 Shoulder flexion 5/5 5/5 [...] in chair and denies having dizziness. Informed VISUAL AND STOCK ASSOCIATE about BP vitals post activity. ADLs: Feeding:Mod [place] with assistance with set up and item [...] walker Activity performed this session: Therapeutic Activity [id number]: Time: 15 Evaluation only this . Education: [...] light within reach, and all needs met. ET SECOND PRESS OPERATOR * Adele Garcia, DEVIL DOG-BC - 11/20/2020 8:00 AM CST Daily Progress [...] Gustavo Salmeron MD at 11/20/2020 12:02 PM OFFSET SECOND PRESS OPERATOR ET SECOND PRESS OPERATOR ET SECOND PRESS OPERATOR * Miranda Winkler RN - 11/19/2020 10:48 [...] mobility Outcome: Progressing Pt resting in bed. ET SECOND PRESS OPERATOR * Kathi Gonzalez OT - 11/19/2020 5:05 PM CST Attempted to see patient at 17:05. Pt still eating supper at this time. Pt reporting that she saw physical therapy early and that she had felt dizzy with functional mobility. She reports that she still feels Numbness throughout her R LE. Will re-attempt occupational therapy evaluation tomorrow 11/20/2020. ET SECOND PRESS OPERATOR * Lori Richardson, PT - 11/19/2020 4:19 PM CST [facility] Physical Therapy Inpatient Evaluation Time In: 1538 Time Out: 1554 Gilma Mills 330/01 M16.11 [...] in Reach and Nursing Notified of Situation ET SECOND PRESS OPERATOR documented in this encounter H&P Notes * [...] during recuperation were discussed with the patient/family/personal traveling sales representative. Reasonable alternatives to the patient's proposed procedure/surgery including benefits, risks, and side effects related to the alternatives and the risks related to not receiving the proposed care were also discussed with the patient/family/personal traveling sales representative. Questions were answered and the patient/family/personal traveling sales representative verbalized understanding and desires to proceed. ET SECOND PRESS OPERATOR Source Note - Gustavo Salmeron MD - 11/06/2020 10:00 AM OFFSET SECOND PRESS OPERATOR Chief Complaint: Postop Followup (DOS:08/13/2020 left total [...] doing great.She has completed physical therapy at [place]. Patient denies any daily pain to her [...] up: Return for Post-Op. GUSTAVO SALMERON MD ET SECOND PRESS OPERATOR ET SECOND PRESS OPERATOR documented in this encounter Nursing Notes * Queta Ugarte RN - 11/20/2020 8:00 PM CST Patient laying bed at this time. Scheduled medications given, plus PRN [place] given for leg pain. Vitals stable. Call light with in reach, will continue plan of care. ET SECOND PRESS OPERATOR * Miranda Winkler RN - 11/19/2020 11:17 PM CST Pt refused all home medications. She said her insurance will not pay for them. ET SECOND PRESS OPERATOR documented in this encounter OR Notes * Op Note - Gustavo Salmeron MD - 11/19/2020 12:05 PM CST Gilma Mills 1950 [id number] 11/19/2020 Preoperative Diagnosis: End-stage right hip osteoarthritis Postoperative Diagnosis: Same Procedure: right total hip arthroplasty using a [employer] [place] standard offset size 7 stem with a +5 x 36 mm metal head in a 52 mm [place] shell with a +4 10 degree polyethylene [...] needle counts werecorrect x2 following the procedure ET SECOND PRESS OPERATOR * Brief Op Note - Gustavo Salmeron MD - 11/19/2020 11:44 AM CST [facility] Brief Op [facility] Total Hip Arthroplasty Procedure Note Gilma Lina 11/19/2020 0947 Procedure(s) (LRB): RIGHT Total Hip Arthroplasty (Right) Surgeon(s): Gustavo Salmeron MD Heater Engineer Helper: Account Liaison Hospice: [facility] Anesthesia: Spinal Pre-Op Diagnosis: M16.11 Post-Op Diagnosis: Same Findings: Estimated Blood Loss: 400 Specimens: None GUSTAVO SALMERON MD Date: 11/19/2020 Time: 11:44 AM ET SECOND PRESS OPERATOR documented in this encounter Miscellaneous Notes * Quality Indicator-Discharge - Renee Sunshine RN - 11/21/2020 3:18 PM OFFSET SECOND PRESS OPERATOR Left voicemail for patient to call with any questions. ET SECOND PRESS OPERATOR * Quality Indicator-Admission - Renee Sunshine RN - 11/16/2020 8:35 AM OFFSET SECOND PRESS OPERATOR Spoke with patient about upcoming surgery on Thursday. Explained outpatient status, 20% copay/Part B,and probable discharge on Thursday afternoon. She will have transportation available, already has a walker, and will do outpatient therapy at [place]. No other questions or concerns from patient. ET SECOND PRESS OPERATOR documented in this encounter Plan of [...] HEMOGLOBIN AND HEMATOCRIT Routine 11/20/2020 4:55 AM OFFSET SECOND PRESS OPERATOR XR PELVIS 1 OR 2 VIEWS Today 11/19/2020 11:11 AM OFFSET SECOND PRESS OPERATOR ARTHROPLASTY HIP TOTAL 11/19/2020 9:18 AM OFFSET SECOND PRESS OPERATOR M16.11 documented in this encounter Results * (ABNORMAL) HEMOGLOBIN AND HEMATOCRIT (11/20/2020 4:55 AM OFFSET SECOND PRESS OPERATOR) HGB 10.0(L) 12.0 - 16.0 G/DL 11/20/2020 5:12 AM OFFSET SECOND PRESS OPERATOR [facility] HCT 31.3(L) 36.0 - 47.0 % 11/20/2020 5:12 AM OFFSET SECOND PRESS OPERATOR [facility] 11/20/2020 4:55 AM OFFSET SECOND PRESS OPERATOR us Gustavo Salmeron MD LABORATORY Final Result [facility] [address] [id number], * XR PELVIS 1 OR 2 VIEWS (11/19/2020 11:11 AM OFFSET SECOND PRESS OPERATOR) Anatomical Region Laterality Modality Pelvis Radiographic [place] ging 11/19/2020 1:06 PM OFFSET SECOND PRESS OPERATOR Impressions 11/19/2020 1:07 PM OFFSET SECOND PRESS OPERATOR IMPRESSION: 1) Intraoperative check right hip arthroplasty. Referred By: GUSTAVO SALMERON Interpreted By: Harshal Marie MD, 11/19/2020 1:06 PM Narrative 11/19/2020 1:07 PM OFFSET SECOND PRESS OPERATOR Examination: XR PELVIS 1 OR 2 VIEWS [...] Result documented in this encounter Visit Diagnoses Not on filedocumented in this encounter Administered Medications Inactive Administered Medications - up to 3 most recent administrations Medication Order MAR Action Action Date Dose Rate Site acetaminophen (TYLENOL) 500 MG tablet 1 dose, Starting on 11/19/20 at 0704, Until Thu11/19/20 at 0827, Created by cabinet override acetaminophen (TYLENOL) tablet 1,000 mg 1,000 mg, Oral, Once, 1 dose, On Thu11/19/20 at 0830, Maximum dose of acetaminophen is 4000 mg from all sources in 24 hours., Pre-Op Given 11/19/2020 8:27 AM OFFSET SECOND PRESS OPERATOR 1,000 mg aspirin EC (ECOTRIN) tablet 325 mg 325 mg, Oral, 2 times daily with meals, First dose on Thu11/20/20 at 0800, Until Discontinued, Start the morning after surgery Do not break, chew, or crush., Post-Op Given 11/21/2020 8:49 AM OFFSET SECOND PRESS OPERATOR 325 mg Given 11/20/2020 4:45 PM OFFSET SECOND PRESS OPERATOR 325 mg Given 11/20/2020 8:38 AM OFFSET SECOND PRESS OPERATOR 325 mg atorvastatin (LIPITOR) tablet 40 mg 40 mg, Oral, Nightly at bedtime, First dose (after last modification) on Thu11/19/20 at 2100, Until Discontinued Given 11/20/2020 8:37 PM OFFSET SECOND PRESS OPERATOR 40 mg ceFAZolin (ANCEF) 3 g in [...] time., Post-Op New Bag 11/20/2020 1:16 AM OFFSET SECOND PRESS OPERATOR 3 g 200 mL/hr New Bag 11/19/2020 4:47 PM OFFSET SECOND PRESS OPERATOR 3 g 200 mL/hr celecoxib (CeleBREX) 100 MG capsule 1 dose, Starting on Thu11/19/20 at 0703, Until Thu11/19/20 at 0828, Created by cabinet override celecoxib (CeleBREX) capsule 100 mg 100 mg, Oral, Once, 1 dose, On Thu11/19/20 at 0830, Do not administer with antacids, Pre-Op Given 11/19/2020 8:2 8 AM OFFSET SECOND PRESS OPERATOR 100 mg chlorhexidine (PERIDEX) 0.12 % solution 15 mL 15 mL, Mouth/Throat, PRN, Prior to surgery, 1 dose, Starting on Thu11/19/20 at 0813, Until Thu11/19/20 at 0827, Patient to perform oral care first. Swish/Gargle in mouth for 30 seconds, and then discard, prior to going to surgery/ If ventilated use saturated swab to clean oral cavity., Pre-Op Given 11/19/2020 8:27 AM OFFSET SECOND PRESS OPERATOR 15 mLs diphenhydrAMINE (BENADRYL) injection 12.5 mg 12.5 mg, Intravenous, Every 6 hours PRN, Itching, Starting on Thu11/19/20 at 1306, Until Thu11/21/20 at 1718, For IV administration, give no faster than 25 mg/min., Post-Op docusate sodium (COLACE) capsule 100 mg 100 mg, Oral, Daily, First dose on Thu11/19/20 at 1400, Until Discontinued, Post-Op Given 11/21/2020 8:50 AM OFFSET SECOND PRESS OPERATOR 100 mg ezetimibe (ZETIA) tablet 10 mg 10 mg, Oral, Nightly at bedtime, First dose (after last modification) on Thu11/19/20 at 2100, Until Discontinued Given 11/20/2020 8:38 PM OFFSET SECOND PRESS OPERATOR 10 mg famotidine (PEPCID) injection 20 mg 20 mg, Intravenous, Every 12 hours scheduled, First dose on Thu11/19/20 at 2100, Until Discontinued, Give if unable to take PO. IV Push over 2 minutes, Post-Op famotidine (PEPCID) tablet 20 mg 20 mg, Oral, Every 12 hours scheduled, First dose on Thu11/19/20 at 2100, Until Discontinued, Post-Op Given 11/21/2020 8:50 AM OFFSET SECOND PRESS OPERATOR 20 mg Given 11/20/2020 8:37 PM OFFSET SECOND PRESS OPERATOR 20 mg Given 11/20/2020 8:38 AM OFFSET SECOND PRESS OPERATOR 20 mg HYDROcodone-acetaminophen (NORCO) 10-325 MG tablet 1 tablet 1 tablet, Oral, Every 4 hours PRN, Moderate pain (Scale 4 - 7), Starting on Thu11/19/20 at 1307, Until Thu11/21/20 at 1718, Maximum dose of acetaminophen is 4000 mg from all sources in 24 hours., Post-Op Given 11/21/2020 1:03 PM OFFSET SECOND PRESS OPERATOR 1 tablet Given 11/21/2020 5:40 AM OFFSET SECOND PRESS OPERATOR 1 tablet Given 11/20/2020 8:37 PM OFFSET SECOND PRESS OPERATOR 1 tablet lactated ringers bolus infusion 500 mL 500 mL, Intravenous, Administer over 15 Minutes, Once, 1 dose, On Thu11/20/20 at 1400 New Bag 11/20/2020 2:17 PM OFFSET SECOND PRESS OPERATOR 500 mLs lactated ringers bolus infusion 500 mL 500 mL, Intravenous, Administer over 15 Minutes, Once, 1 dose, On Thu11/21/20 at 1400 New Bag 11/21/2020 1:51 PM OFFSET SECOND PRESS OPERATOR 500 mLs lactated ringers infusion at 10 mL/hr, Intravenous, Continuous, Starting on Thu11/19/20 at 0830, Until Thu11/20/20 at 0731, Infuse at TKO rate, Pre-Op New Bag 11/19/2020 10:38 AM OFFSET SECOND PRESS OPERATOR New Bag 11/19/2020 8:27 AM OFFSET SECOND PRESS OPERATOR 10 mL/hr lactated ringers infusion at 75 mL/hr, Intravenous, Continuous, Starting on Thu11/19/20 at 1330, Until Thu11/20/20 at 0731, May discontinue IV Fluid when adequate oral intake, Post-Op New Bag 11/20/2020 4:43 AM OFFSET SECOND PRESS OPERATOR 75 mL/hr New Bag 11/19/2020 2:13 PM OFFSET SECOND PRESS OPERATOR 75 mL/hr levothyroxine (SYNTHROID) tablet 125 mcg 125 mcg, Oral, Daily, First dose on Thu11/19/20 at 1330, Until Discontinued, Avoid iron, calcium, and antacids within 4 hours of administration. Given 11/21/2020 8:50 AM OFFSET SECOND PRESS OPERATOR 125 mcg morphine injection 1 mg 1 [...] 2100, Until Discontinued Given 11/20/2020 8:38 PM OFFSET SECOND PRESS OPERATOR 25 mg pantoprazole EC (PROTONIX) tablet 40 mg 40 mg, Oral, Daily, First dose on Thu11/19/20 at 1400, Until Discontinued, Do not break, chew, or crush. Given 11/21/2020 8:50 AM OFFSET SECOND PRESS OPERATOR 40 mg pregabalin (LYRICA) capsule 200 mg 200 mg, Oral, 2 times daily, First dose on Thu11/19/20 at 1400, Until Discontinued Given 11/21/2020 8:49 AM OFFSET SECOND PRESS OPERATOR 200 m g Given 11/20/2020 8:38 PM OFFSET SECOND PRESS OPERATOR 200 mg propranolol (INDERAL) tablet 80 mg 80 mg, Oral, 2 times daily, First dose on Thu11/19/20 at 1400, Until Discontinued Given 11/21/2020 8:49 AM OFFSET SECOND PRESS OPERATOR 80 mg Given 11/20/2020 8:38 PM OFFSET SECOND PRESS OPERATOR 80 mg rOPINIRole (REQUIP) tablet 4 mg 4 mg, Oral, Nightly at bedtime, First dose on Thu11/19/20 at 2100, Until Discontinued Given 11/20/2020 8:37 PM OFFSET SECOND PRESS OPERATOR 4 mg sodium chloride 0.9 % 3,000 mL with gentamicin 320 mg irrigation As needed, Starting on Thu11/19/20 at 1021, Until Thu11/19/20 at 1209, Intra-Op Given 11/19/2020 10:21 AM OFFSET SECOND PRESS OPERATOR Righ t Hip spironolactone (ALDACTONE) tablet 100 mg 100 mg, Oral, Daily, First dose on Thu11/19/20 at 1400, Until Discontinued Given 11/21/2020 8:50 AM OFFSET SECOND PRESS OPERATOR 100 mg venlafaxine XR (EFFEXOR-XR) 24 hr capsule 150 mg 150 mg, Oral, Daily, First dose on Thu11/19/20 at 1400, Until Discontinued, Swallow capsule whole or it may be opened and the contents sprinkled on applesauce. Given 11/21/2020 8:50 AM OFFSET SECOND PRESS OPERATOR 150 mg documented in this encounter Active and Recently Administered Medications Times are shown in OFFSET SECOND PRESS OPERATOR. Scheduled Medication Order 11/19/2020 11/20/2020 11/21/2020 acetaminophen (TYLENOL) tablet 1,000 mg (COMPLETED) 1,000 mg, Oral, Once, 1 dose, On Thu11/19/20 at 0830, Maximum dose of acetaminophen is 4000 mg from all sources in 24 hours., Pre-Op 08 (Given - Provider: Stephanie Bernal RN) aspirin EC (ECOTRIN) tablet 325 mg 325 mg, Oral, 2 times daily with meals, First dose on Thu11/20/20 at 0800, Until Discontinued, Start the morning after surgery Do not break, chew, or crush., Post-Op 0838 (Given - Provider: Nory Whitaker RN)1645 (Given - Provider: Nory Whitaker, PRITI) 0849 (Given - Provider: Vicki Foote RN)1700 (Canceled Entry - Provider: Automatic Discharge Provider - Comment: Automatically canceled at discontinue of medication order) atorvastatin (LIPITOR) tablet 40 mg 40 mg, Oral, Nightly at bedtime, First dose (after last modification) on Thu11/19/20 at 2100, Until Discontinued 2140 (Not Given - Provider: Miranda Winkler RN - Reason: Patient/family declined) 2036 (Given - Provider: Queta Ugarte RN) ceFAZolin (ANCEF) 3 g in NS 100 mL IVPB (COMPLETED)(Linked Group 1) 3 g, Intravenous, at 200 mL/hr, call center professional, 1 dose, On Thu11/19/20 at 0830, Give [...] 24 hours after anesthesia end time., Post-Op 1647 (New Bag - Provider: Nory Whitaker, PRITI)1720 (Infusion Stop Time - Provider: Nory Whitaker RN) 0116 (New Bag - Provider: Miranda Winkler, PRITI)0146 (Infusion Stop Time - Provider: Miranda Winkler [...] Patient/family declined) 2037 (Given - Provider: Queta Ugarte RN) famotidine (PEPCID) injection 20 mg(Linked Group 3) 20 mg, Intravenous, Every 12 hours scheduled, First dose on Thu11/19/20 at 2100, Until Discontinued, Give if unable to take PO. IV Push over 2 minutes, Post-Op 2141 (See Alternative - Provider: Miranda Winkelr RN) 0838 (See Alternative - Provider: Nory Whitaker RN)2036 (See Alternative - Provider: Queta Ugarte, PRITI) 0850 (See Alternative - Provider: Vicki Foote RN) famotidine (PEPCID) tablet 20 mg(Linked Group 3) 20 mg, Oral, Every 12 hours scheduled, First dose on Thu11/19/20 at 2100, Until Discontinued, Post-Op 2141 (Given - Provider: Miranda Winkler RN) 0838 (Given - Provider: Nory Whitaker RN)2036 (Given - Provider: Queta Ugarte, PRITI) 0850 (Given - Provider: Vicki Foote, PRITI) lactated ringers bolus infusion 500 mL (COMPLETED) 500 mL, Intravenous, Administer over 15 Minutes, Once, 1 dose, On Thu11/20/20 at 1400 1417 (New Bag - Provider: Amanda Polk RN)1524 (Infusion Stop Time - Provider: Nory Whitaker RN) lactated ringers bolus infusion 500 mL (COMPLETED) 500 mL, Intravenous, Administer over 15 Minutes, Once, 1 dose, On Thu11/21/20 at 1400 1351 (New Bag - Provider: Vicki Foote, PRITI)1430 (Infusion Stop Time - Provider: Vicki Foote RN) levothyroxine (SYNTHROID) tablet 125 mcg 125 [...] 2037 (Given - Provider: Queta Ugarte, PRITI) pantoprazole EC (PROTONIX) tablet 40 mg 40 mg, Oral, Daily, First dose on Thu11/19/20 at 1400, Until Discontinued, Do not break, chew, or crush. 1402 (Not Given - Provider: Nory Whitaker RN - Reason: Patient already took) 0726 (Not Given - Provider: Nory Whitaker RN - Reason: Patient/family declined) 0850 (Given - Provider: Vicki Foote, PRITI) pregabalin (LYRICA) capsule 200 mg 200 mg, Oral, 2 times daily, First dose on Thu11/19/20 at 1400, Until Discontinued 144 (Not Given - Provider: Nory Whitaker RN - Reason: Patient/family declined)2142 (Not Given - Provider: Miranda Winkler RN - Reason: Patient/family declined) 0726 (Not Given - Provider: Nory Whitaker RN - Reason: Patient/family declined)2037 (Given - Provider: Queta Ugarte, PRITI) 0849 (Given - Provider: Vicki Foote, PRITI) propranolol (INDERAL) tablet 80 mg 80 mg, Oral, 2 times daily, First dose on Thu11/19/20 at 1400, Until Discontinued 144 (Not Given - Provider: Nory Whitaker RN - Reason: Patient/family declined)2142 (Not Given - Provider: Miranda Winkler RN - Reason: Patient/family declined) 0727 (Not Given - Provider: Nory Whitaker RN - Reason: Patient/family declined)2037 (Given - Provider: Queta Ugarte RN) 0849 (Given - Provider: Vicki Foote, PRITI) rOPINIRole (REQUIP) tablet 4 mg 4 mg, Oral, Nightly at bedtime, First dose on Thu11/19/20 at 2100, Until Discontinued 2142 (Not Given - Provider: Miranda Winkler RN - Reason: Patient/family declined) 2036 (Given - Provider: Queta Ugarte RN) spironolactone (ALDACTONE) tablet 100 mg 100 mg, [...] on applesauce. 1445 (Not Given - Provider: Nroy Whitaker RN - Reason: Patient/family declined) 0727 (Not Given - Provider: Nory Whitaker RN - Reason: Patient/family declined) 0850 (Given - Provider: Vicki Foote, PRITI) Continuous Medication Order 11/19/2020 11/20/2020 11/21/2020 lactated [...] (Infusion Stop Time - Provider: Jenny Frost RN)044 (New Bag - Provider: Jenny Frost RN)0730 [...] 2138 (Given - Provider: Miranda Winkler RN) 0796 (Given - Provider: Nory Whitaker RN)2037 (Given - Provider: Queta Ugarte, RN) 0540 (Given - Provider: Queta Ugarte, RN)1303 (Given - Provider: Vicki Foote RN) HYDROcodone-acetaminophe [...] (CANCELED) 2 g, Intravenous, at 200 mL/hr, call center professional, 1 dose, On Thu11/19/20 at 0830, Give 2 gram dose for patients less than 120 kg. Give within 60 minutes of surgical incision., Pre-Op Or ceFAZolin (ANCEF) 3 g in NS 100 mL IVPB (COMPLETED)Jump to med 3 g, Intravenous, at 200 mL/hr, call center professional, 1 dose, On Thu11/19/20 at 0830, Give [...] Post-Op documented in this encounter Care Teams Supervisor Vendor Quality Relationship Specialty Start Date End Date Stella Obrien MD [address] [place] [address] PCP - General INTERNAL MEDICINE 08/02/20 documented as of this encounter
--- OUTSIDE RECORDS SUMMARY | 2024-09-13 06:34 | XMS_ITS | Encounter Summary ---
Author Organization [facility] Address [facility]ly [facility] [place] [address] [place] [address] Care Team Providers Care Furniture Installer Name Role Phone Sebastien Sequeira MD Primary Care Provider [phone] Reason for Referral * Imaging (Routine) - Closed Specialty Diagnoses / Procedures Referred By Contac t Referred To Contact RADIOLOGY Diagnoses Lumbar radiculopathy Procedures MRI LUMB SPINE WO CON Gustavo So MD [address] [place] [address] Phone: tel: fax: Referral ID Status Reason Start Date Expiration Date Visits Re quested Visits Authorized [id number] Closed 11/30/2020 12/31/2021 1 1 Reason for Visit * Reason Comments Postop Followup DOS 11/19/2020 right total hip arthroplasty Encounter Details Date Type Department Care Team (Latest Contact Info) Description 11/30/2020 10:30 AM CDT Office Visit [facility] [address] [place] [address], [address] [address] Gustavo So MD [address] [place] [address] Postop Followup (DOS 11/19/2020 right total hip arthroplasty) Social History Tobacco Use [...] - Inhaled Oxygen Concentration - - Weight 131.5 kg (290 lb) 11/30/2020 10:15 AM CDT Height 177.8 cm (5' 10 ) 11/30/2020 10:15 AM CDT Body Mass Index 41.61 11/30/2020 10:15 AM CDT documented in this encounter Functional Status * RETIRED Are you deaf or do you have serious difficulty hearing Answer Date of Assessment Author Status No 11/19/2020 1:16 PM ANIMAL SERVICES OFFICER Activ e * RETIRED Are you blind or do you have serious difficulty seeing, even when wearing glasses? Answer Date of Assessment Author Status No 11/19/2020 1:16 PM ANIMAL SERVICES OFFICER Activ e * Do you have serious difficulty walking or climbing stairs? Answer Date of Assessment Author Status Yes 11/19/2020 1:16 PM ANIMAL SERVICES OFFICER Nory Whitaker R N Active * Do you have difficulty dressing or bathing? Answer Date of Assessment Author Status No 11/19/2020 1:16 PM ANIMAL SERVICES OFFICER Nory Whitaker R N Active * Because [...] Date Author Status No 11/19/2020 1:16 PM ANIMAL SERVICES OFFICER Nory Whitaker R N Active documented in this encounter Progress Notes * Gustavo So MD - 11/30/2020 10:30 AM CDT Chief Complaint: Postop Followup (DOS 11/19/2020 right total hip arthroplasty) History of Present Illness: Gilma Mills is a 70-year-old female who presents to the office for Postop Followup (DOS 11/19/2020 right total hip arthroplasty) Patient states that she is doing okay in regards to her RIGHT hip. She states that she is having more tightness after this surgery than her LEFT hip surgery. She locates the tightness in her groin. She does also admit low back pain. She has been attending physical therapy. She denies fever and or chills. She denies drainage from incision site. Patient does have some numbness in her RIGHT foot. She has been using [place] for pain relief. She has been sleeping okay at night. She is using a walker for assistance. [place] removed from RIGHT hip without difficulty. Edges well approximated. No signs [...] replacement ??? Primary osteoarthritis of right hip History: Past Medical History: Diagnosis Date [...] file Occupational History ??? Not on file Social Needs ??? Financial resource strain: Not on file ??? Food insecurity Worry: Not on file Inability: Not on file ??? Transportation needs Medical: Not on file Non-medical: Not on file Tobacco Use ??? Smoking status: Never Smoker ??? Smokeless tobacco: Never Used Substance and Sexual Activity ??? Alcohol use: Not Currently ??? Drug use: Never ??? Sexual activity: Not on file Lifestyle ??? Physical activity Days per week: Not on file Minutes per session: Not on file ??? Stress: Not on file Relationships ??? Social connections Talks on phone: Not on file Gets together: Not on file Attends mandaen service: Not on file Active member of club or organization: Not on file Attends meetings of clubs or organizations: Not on file Relationship status: Not on file ??? Intimate partner violence Fear of current or ex partner: Not on file Emotionally abused: Not on file Physically abused: Not on file Forced sexual activity: Not on file Other Topics Concern ??? Not on file Social History Narrative ??? Not on file Medications: Current Outpatient Medications: ??? oxyCODONE-acetaminophen 5-325 MG tablet, Take 1 tablet by mouth every 4 (four) hours as needed.Indications: Chronic Pain, Disp: 30 tablet, Rfl: 0 ??? ALPRAZolam 0.25 MG tablet, Take 1 tablet by mouth every 8 (eight) hours as needed., Disp: , Rfl: ??? aspirin EC 81 MG tablet, Take 1 tablet (81 mg total) by mouth 2 (two) times daily with meals for 40 days., Disp: 80 tablet, Rfl: 0 ??? busPIRone 15 MG tablet, Take 1 tablet by mouth daily., Disp: , Rfl: ??? EUTHYROX 125 MCG tablet, Take 125 mcg by mouth daily., Disp: , Rfl: ??? ezetimibe 10 MG tablet, Take 10 mg by mouth daily., Disp: , Rfl: ??? furosemide 40 MG tablet, Take 1 tablet by mouth as needed., Disp: , Rfl: ??? HYDROcodone-acetaminophen 5-325 MG tablet, Take 1 tablet by mouth every 4 (four) hours as needed for Pain. Indications: Acute Pain < 7 Day Supply, Disp: 30 tablet, Rfl: 0 ??? Misc. Devices (COMMODE 3-IN-1) Misc, 1 each by Does not apply route daily as needed., Disp: 1 each, Rfl: 0 ??? nortriptyline [...] Statins Rash Objective: Body mass index is 41.61 kg/m??. Last Recorded Weight 11/30/20 1015 Weight: 131.5 kg (290 lb) Physical exam: Constitutional: Alert and in no acute distress. Neurological: The patient was oriented to person, place, and time. Eyes: The sclera and conjunctiva were normal ENT: Hearing was normal. Neck: The appearance of the neck was normal. Cardiovascular: Normal pulses. Pulmonary: No respiratory distress. Skin: No injuries or skin lesion. Musculoskeletal: Right hip range of motion is good but she has discomfort mainly with internal rotation and complains of a sense of tightness in the groin. She is walking with a walker with an antalgic gait. She does have a positive straight leg raise with radiating pain into the lateral aspect of her foot with tingling in the toes. Right-sided low back pain Results: X-rays of the right hip demonstrate that she is about a centimeter long. Otherwise her right hip components appear to be in satisfactory position without signs of loosening or subsidence Assessment: Encounter Diagnose(s) ICD-10-CM ICD-9-CM SNOMED CT(R) 1. Lumbar radiculopathy M54.16 724.4 LUMBAR RADICULOPATHY MRI LUMB SPINE WO CON 2. Status post total replacement of left hip Z96.642 V43.64 HISTORY OF TOTAL HIP ARTHROPLASTY oxyCODONE-acetaminophen 5-325 MG tablet Plan: Patient is struggling a bit with rehab but she is also reporting increasing back pain with radiation down her leg which could be slowing her down as it is consistent with radiculopathy. I recommendedan MRI of her lumbar spine and she will continue with therapy. She is still taking an aspirin twicea day for DVT prophylaxis and I will call in a prescription for Percocet which she is using prior to therapy Follow up: Return for Visit after MRI arthrogram has been obtained. GUSTAVO SO MD documented in this encounter [...] documented as of this encounter Results * MRI LUMB SPINE WO CON (12/10/2020 7:53 AM CDT) Anatomical Region Laterality Modality Spine Magnetic Resonan ce 12/10/2020 8:05 AM CDT Impressions 12/10/2020 8:11 AM CDT IMPRESSION: 1. Asymmetric posterior disk bulge towards the right at L3-L4 with evidence of right nerve root impingement. 2. No central spinal canal stenosis is demonstrated in the lumbar region. Referred By: GUSTAVO SO Interpreted By: Prince Beyer MD, 12/10/2020 8:05 AM Narrative 12/10/2020 8:11 AM CDT EXAMINATION: MRI OF THE LUMBAR SPINE EXAM DATE: ??12/10/2020 7:53 AM HISTORY: Low back pain. No known injury. Bilateral hip replacements. TECHNIQUE: Sagittal and axial images of the lumbar spine were obtained utilizing multiple pulse sequences. The patient is taken to have five lumbar vertebral bodies for the purposes of this exam. As such, the axial images extend from T12-L1 to the sacrum. COMPARISON: There is no prior MRI of the lumbar spine available for comparison. GENERAL OBSERVATIONS: CONUS MEDULLARIS: The conus medullaris demonstrates normal signal intensity and caliber and terminates at the L1 level. SIGNAL INTENSITY OF BONE: The signal intensity of the bony elements of the lumbar spine is unremarkable. However, there are vertebral body hemangiomata. FRACTURE: There is no acute lumbar spine fracture. SOFT TISSUES: No suspicious mass is demonstrated in the paraspinal soft tissues. ALIGNMENT: There is a rightward lumbar spinal curve. There are 0.3 cm retrolistheses of L3 relative to L4 and of L4 relative to L5. OTHER FINDINGS: There is desiccation of the lumbar intervertebral disks. There is a component of bilateral facet hypertrophy at each of the lumbar levels. The kidneys are not fully evaluated on this exam, but there are at least 2 generally T1 hypointense and T2 hyperintense left renal masses, larger measuring about 4.6 cm. These could be cysts. FINDINGS AT SPECIFIC LEVELS T12-L1: No thoracic spinal cord impingement or nerve root impingement is seen. L1-L2: No central spinal canal stenosis or nerve root impingement is demonstrated at L1-L2. L2-L3: No central spinal canal stenosis or nerve root impingement is demonstrated at L2-L3. L3-L4: There is an asymmetric posterior disk bulge towards the right at L3-L4 with evidence of right nerve root impingement. There is no central spinal canal stenosis here. L4-L5: Posterior disk bulge and bilateral facet hypertrophy contribute to moderate bilateral neural foraminal stenoses at L4-L5. There is no central spinal canal stenosis at this level. L5-S1: Posterior disk bulge and facet hypertrophy contribute to moderate right neural foraminal stenosis at L5-S1. No central spinal canal stenosis occurs here. Procedure Note Prince Beyer MD - 12/10/2020 EXAMINATION: MRI OF THE LUMBAR SPINE EXAM DATE: 12/10/2020 7:53 AM HISTORY: Low back pain. No known injury. Bilateral hip replacements. TECHNIQUE: Sagittal and axial images of the lumbar spine were obtained utilizing multiple pulse sequences. The patient is taken to have five lumbar vertebral bodies for the purposes of this exam. As such, theaxial images extend from T12-L1 to the sacrum. COMPARISON: There is no prior MRI of the lumbar spine available for comparison. GENERAL OBSERVATIONS: CONUS MEDULLARIS: The conus medullaris demonstrates normal signalintensity and caliber and terminates at the L1 level. SIGNAL INTENSITY OF BONE: The signal intensity of the bony elements ofthe lumbar spine is unremarkable. However, there are vertebral body hemangiomata. FRACTURE: There is no acute lumbar spine fracture. SOFT TISSUES: No suspicious mass is demonstrated in the paraspinal soft tissues. ALIGNMENT: There is a rightward lumbar spinal curve. There are 0.3 cm retrolistheses of L3 relative to L4 and of L4 relative to L5. OTHER FINDINGS: There is desiccation of the lumbar intervertebral disks. There is a component of bilateral facet hypertrophy at each of thelumbar levels. The kidneys are not fully evaluated on this exam, but there are at least2 generally T1 hypointense and T2 hyperintense left renal masses, larger measuring about 4.6 cm. These could be cysts. FINDINGS AT SPECIFIC LEVELS T12-L1: No thoracic spinal cord impingement or nerve root impingement is seen. L1-L2: No central spinal canal stenosis or nerve root impingement is demonstrated at L1-L2. L2-L3: No central spinal canal stenosis or nerve root impingement is demonstrated at L2-L3. L3-L4: There is an asymmetric posterior disk bulge towards the right at L3-L4 with evidence of right nerve root impingement. There is no central spinal canal stenosis here. L4-L5: Posterior disk bulge and bilateral facet hypertrophy contributeto moderate bilateral neural foraminal stenoses at L4-L5. There is nocentral spinal canal stenosis at this level. L5-S1: Posterior disk bulge and facet hypertrophy contribute to moderate right neural foraminal stenosis at L5-S1. No central spinal canalstenosis occurs here. IMPRESSION: 1. Asymmetric posterior disk bulge towards the right at L3-L4 withevidence of right nerve root impingement. 2. No central spinal canal stenosis is demonstrated in the lumbarregion. Referred By: GUSTAVO SO Interpreted By: Prince Beyer MD, 12/10/2020 8:05 AM us Gustavo So MD MRI Final Result documented in this encounter Visit Diagnoses Diagnosis Lumbar radiculopathy- Primary Thoracic or lumbosacral neuritis or radiculitis, unspecified Status post total replacement of left hip Lumbar radiculopathy Thoracic or lumbosacral neuritis or radiculitis, unspecified documented in this encounter Care Teams Furniture Installer Relationship Specialty Start Date End Date Sebastien Sequeira MD [address] [place] [phone] PCP - General INTERNAL MEDICINE 08/02/20 documented as of this encounter
--- OUTSIDE RECORDS SUMMARY | 2024-09-13 06:34 | XMS_ITS | Encounter Summary ---
Author Organization [facility] Address [facility] [place] [address] [place] [address] Care Team Providers Care Broadcast Chief Engineer Name Role Phone Sebastien Sequeira MD Primary Care Provider [phone] Encounter Details Date Type Department Care Team (Latest Contact Info) Description 01/10/2021 Travel Social History Tobacco Use Types Packs/Day [...] have Coronavirus / COVID-19? No / Unsure 01/10/2021 7:45 AM CDT documented as of this encounter Functional Status * RETIRED Are you deaf or do you have serious difficulty hearing Answer Date of Assessment Author Status No 11/19/2020 1:16 PM COMMERCIAL COLLECTOR Acti ve * RETIRED Are you blind or do you have serious difficulty seeing, even when wearing glasses? Answer Date of Assessment Author Status No 11/19/2020 1:16 PM COMMERCIAL COLLECTOR Activ e * Do you have serious [...] removed from the home General No Krystal Quilgey, RN Note: Pt wants to go home safely with new walker. Pt made aware that therapy will work with her on safety. documented as of this encounter Visit Diagnoses Not on filedocumented in this encounter Care Teams Broadcast Chief Engineer Relationship Specialty Start Date End Date Sebastien Sequeira MD [address] [place] [phone] PCP - General INTERNAL MEDICINE 08/02/20 documented as of this encounter
--- OUTSIDE RECORDS SUMMARY | 2024-09-13 06:34 | XMS_ITS | Encounter Summary ---
Author Organization [facility] Address [address] [place] [address]. [place] [address] [place] [address] Care Team Providers Care Deburrer Name Role Phone Sebastien Sequeira MD Primary Care Provider [phone] Reason for Visit * Reason Onset Date Comments Surgical Clearance 05/30/2021 Encounter Details Date Type Department Care Team (Late st Contact Info) Description 05/30/2021 Telephone [facility] [place] [id number] Minerva Hendrickson RN Surgical Clearance Social History Tobacco Use Types Packs/Day Years [...] Assessment Author Status No 11/19/2020 1:16 PM HEALTH DATA ANALYST Activ e * RETIRED Are you blind or do you have serious difficulty seeing, even when wearing glasses? Answer Date of Assessment Author Status No 11/19/2020 1:16 PM HEALTH DATA ANALYST Activ e * Do you have serious difficulty walking or climbing stairs? Answer Date of Assessment Author Status Yes 11/19/2020 1:16 PM HEALTH DATA ANALYST Nory Whitaker R N Active * Do you have difficulty dressing or bathing? Answer Date of Assessment Author Status No 11/19/2020 1:16 PM HEALTH DATA ANALYST Nory Whitaker R N Active * Because of a physical, mental, or emotional condition, do you have difficulty doing errands alone such as visiting a doctor's office or shopping? Answer Date of Assessment Author Status No 11/19/2020 1:16 PM HEALTH DATA ANALYST Nory Whitaker R N Active documented as of this encounter Mental Status * Because of a physical, mental, or emotional condition, do you have serious difficulty concentrating, remembering, or making decisions? Answer Entry Date Author Status No 11/19/2020 1:16 PM Nory Barron R N Active documented in this encounter Progress Notes * Minerva Hendrickson RN - 06/05/2021 9:45 AM CDT RN contacted Dr. Schmitz's office. They are waiting on Dr. Schmitz to respond and provide cardiac risk.Their office has our contact information and fax number. * Minerva Hendrickson RN - 05/30/2021 8:47 AM CDT Message left with Dr. Schmitz's office to get cardiac clearance for her upcoming surgery. documented in this encounter Plan of Treatment [...] on filedocumented in this encounter Care Teams Deburrer Relationship Specialty Start Date End Date Sebastien Sequeira MD [address] [place] [address] PCP - General INTERNAL MEDICINE 08/02/20 documented as of this encounter
--- OUTSIDE RECORDS SUMMARY | 2024-09-13 06:34 | XMS_ITS | Encounter Summary ---
Author Organization [facility] Address [address] [place] [address]. [place] [address] [place] [address] Care Team Providers Care Social Media Designer Name Role Phone Sebastien Sequeira MD Primary Care Provider [phone] Encounter Details Date Type Department Care Team (Late st Contact Info) Description 01/07/2021 Orders Only [facility] [address], [facility] [address] [place] [address] Gustavo So MD [address] [place] [id number] Social History Tobacco Use Types Packs/Day Years [...] Assessment Author Status No 11/19/2020 1:16 PM IMAGING SERVICES DIRECTOR Activ e * RETIRED Are you blind or do you have serious difficulty seeing, even when wearing glasses? Answer Date of Assessment Author Status No 11/19/2020 1:16 PM IMAGING SERVICES DIRECTOR Activ e * Do you have serious difficulty walking or climbing stairs? Answer Date of Assessment Author Status Yes 11/19/2020 1:16 PM Nory Barron R N Active * Do you have difficulty dressing or bathing? Answer Date of Assessment Author Status No 11/19/2020 1:16 PM IMAGING SERVICES DIRECTOR Nory Whitaker R N Active * Because [...] By: Harshal Marie MD, 01/16/2021 2:53 PM Narrative 01/16/2021 [...] in this encounter Visit Diagnoses Diagnosis Right hip pain- Primary Pain in joint, pelvic region and thigh Aftercare Unspecified aftercare Aftercare Unspecified aftercare documented in this encounter Care Teams Social Media Designer Relationship Specialty Start Date End Date Sebastien Sequeira MD [address] [place] [phone] PCP - General INTERNAL MEDICINE 08/02/20 documented as of this encounter
--- OUTSIDE RECORDS SUMMARY | 2024-09-13 06:34 | XMS_ITS | Encounter Summary ---
Author Organization [facility] Address [address] [place] [address]. [place] [address] [place] [address] Care Team Providers Care Bottle Capping Machine Operator Name Role Phone Sebastien Sequeira MD Primary Care Provider [phone] Encounter Details Date Type Department Care Team (Late st Contact Info) Description 11/23/2020 Scan [facility] [address] [address] Scanned, Documents Social History Tobacco Use Types Packs/Day Years [...] Assessment Author Status No 11/19/2020 1:16 PM ALARM OPERATOR Activ e * RETIRED Are you blind or do you have serious difficulty seeing, even when wearing glasses? Answer Date of Assessment Author Status No 11/19/2020 1:16 PM ALARM OPERATOR Activ e * Do you have serious difficulty walking or climbing stairs? Answer Date of Assessment Author Status Yes 11/19/2020 1:16 PM ALARM OPERATOR Nory Whitaker R N Active * Do you have difficulty dressing or bathing? Answer Date of Assessment Author Status No 11/19/2020 1:16 PM ALARM OPERATOR Nory Whitaker R N Active * Because of a physical, mental, or emotional condition, do you have difficulty doing errands alone such as visiting a doctor's office or shopping? Answer Date of Assessment Author Status No 11/19/2020 1:16 PM ALARM OPERATOR Nory Whitaker R N Active documented as of this encounter Mental Status * Because of a physical, mental, or emotional condition, do you have serious difficulty concentrating, remembering, or making decisions? Answer Entry Date Author Status No 11/19/2020 1:16 PM ALARM OPERATOR Nory Whitaker R N Active documented [...] on filedocumented in this encounter Care Teams Bottle Capping Machine Operator Relationship Specialty Start Date End Date Sebastien Sequeira MD [address] [place] [address] PCP - General INTERNAL MEDICINE 08/02/20 documented as of this encounter
--- OUTSIDE RECORDS SUMMARY | 2024-09-13 06:34 | XMS_ITS | Encounter Summary ---
Author Organization [facility] Address [facility] [place] [address] [place] [address] Care Team Providers Care Housing Inspectors Name Role Phone Sebastien Sequeira MD Primary Care Provider [phone] Encounter Details Date Type Department Care Team (Latest Contact Info) Description 01/02/2021 Travel Social History Tobacco Use Types Packs/Day [...] Assessment Author Status No 11/19/2020 1:16 PM SECOND WORKER Acti ve * RETIRED Are you blind or do you have serious difficulty seeing, even when wearing glasses? Answer Date of Assessment Author Status No 11/19/2020 1:16 PM SECOND WORKER Activ e * Do you have serious [...] on filedocumented in this encounter Care Teams Housing Inspectors Relationship Specialty Start Date End Date Sebastien Sequeira MD [address] [place] [phone] PCP - General INTERNAL MEDICINE 08/02/20 documented as of this encounter
--- OUTSIDE RECORDS SUMMARY | 2024-09-13 06:34 | XMS_ITS | Encounter Summary ---
Author Organization [facility] Address [facility] [place] [address] [place] [address] Care Team Providers Care Toy Maker Name Role Phone Sebastien Sequeira MD Primary Care Provider [phone] Encounter Details Date Type Department Care Team (Latest Contact Info) Description 12/12/2020 Travel Social History Tobacco Use Types Packs/Day [...] Assessment Author Status No 11/19/2020 1:16 PM ATHLETIC DIRECTOR Activ e * RETIRED Are you blind or do you have serious difficulty seeing, even when wearing glasses? Answer Date of Assessment Author Status No 11/19/2020 1:16 PM ATHLETIC DIRECTOR Activ e * Do you have [...] on filedocumented in this encounter Care Teams Toy Maker Relationship Specialty Start Date End Date Sebastien Sequeira MD [address] [place] [phone] PCP - General INTERNAL MEDICINE 08/02/20 documented as of this encounter
--- OUTSIDE RECORDS SUMMARY | 2024-09-13 06:34 | XMS_ITS | Encounter Summary ---
Author Organization [facility] Address [address] [place] [address]. [place] [address] [place] [address] Care Team Providers Care Dairy Equipment Repairer Name Role Phone Sebastien Sequeira MD Primary Care Provider [phone] Encounter Details Date Type Department Care Team (Late st Contact Info) Description 02/05/2021 Orders Only [facility] [address], [facility] 1 [place] [address] Gustavo So MD [address] [place] [address] Social History Tobacco Use Types Packs/Day Years [...] Assessment Author Status No 11/19/2020 1:16 PM DIET THERAPIST Acti ve * RETIRED Are you blind or do you have serious difficulty seeing, even when wearing glasses? Answer Date of Assessment Author Status No 11/19/2020 1:16 PM DIET THERAPIST Activ e * Do you have serious difficulty walking or climbing stairs? Answer Date of Assessment Author Status Yes 11/19/2020 1:16 PM DIET THERAPIST Nory Whitaker R N Active * Do you have difficulty dressing or bathing? Answer Date of Assessment Author Status No 11/19/2020 1:16 PM DIET THERAPIST Nory Whitaker R N Active * Because of a physical, mental, or emotional condition, do you have difficulty doing errands alone such as visiting a doctor's office or shopping? Answer Date of Assessment Author Status No 11/19/2020 1:16 PM DIET THERAPIST Nory Whitaker R N Active documented as of this encounter Mental Status * Because of a physical, mental, or emotional condition, do you have serious difficulty concentrating, remembering, or making decisions? Answer Entry Date Author Status No 11/19/2020 1:16 PM DIET THERAPIST Nory Whitaker R N Active documented in [...] Primary Hip joint replacement by other means documented in this encounter Care Teams Dairy Equipment Repairer Relationship Specialty Start Date End Date Sebastien Sequeira MD [address] [place] [address] PCP - General INTERNAL MEDICINE 08/02/20 documented as of this encounter
--- OUTSIDE RECORDS SUMMARY | 2024-09-13 06:34 | XMS_ITS | Encounter Summary ---
Author Organization [facility] Address [facility] [place] [address] [place] [address] Care Team Providers Care Upper Doubler Name Role Phone Sebastien Sequeira MD Primary Care Provider [phone] Encounter Details Date Type Department Care Team (Latest Contact Info) Description 05/29/2021 Travel Social History Tobacco Use Types Packs/Day [...] Assessment Author Status No 11/19/2020 1:16 PM DECKER OPERATOR Activ e * RETIRED Are you blind or do you have serious difficulty seeing, even when wearing glasses? Answer Date of Assessment Author Status No 11/19/2020 1:16 PM DECKER OPERATOR Activ e * Do you have [...] on filedocumented in this encounter Care Teams Upper Doubler Relationship Specialty Start Date End Date Sebastien Sequeira MD [address] [place] [phone] PCP - General INTERNAL MEDICINE 08/02/20 documented as of this encounter
--- OUTSIDE RECORDS SUMMARY | 2024-09-13 06:34 | XMS_ITS | Encounter Summary ---
Author Organization [facility] Address [facility] hospital6 [facility] [place] [address] [place] [address] Care Team Providers Care Cotton Tier Name Role Phone Sebastien Sequeira MD Primary Care Provider [phone] Reason for Referral * Physical Medicine (Routine) - Closed Specialty Diagnoses / Procedures Referred By Aaron t Referred To Contact Diagnoses Primary osteoarthritis of right hip Status post right hip replacement Adele Garcia FNP-BC [address] [place] [address] Phone: tel: fax: Adele Garcia FNP-BC [address] [place] [address] Phone: tel: fax: Referral ID Status Reason Start Date Expiration Date V isits Requested Visits Authorized [id number] Closed Physical Therapy 11/20/2020 12/21/2021 1 1 ER DRIVER Encounter Details Date Type Department Care Team (Late st Contact Info) Description 11/20/2020 Orders Only [facility] [address], [address] [address] Adele Garcia FNP-BC [address] [place] [address] Social History Tobacco Use Types Packs/Day Years [...] COVID-19? No / Unsure 11/19/2020 8:08 AM HAMMER DRIVER documented as of this encounter Functional Status * RETIRED Are you deaf or do you have serious difficulty hearing Answer Date of Assessment Author Status No 11/19/2020 1:16 PM HAMMER DRIVER Activ e * RETIRED Are you blind or do you have serious difficulty seeing, even when wearing glasses? Answer Date of Assessment Author Status No 11/19/2020 1:16 PM HAMMER DRIVER Activ e * Do you have serious difficulty walking or climbing stairs? Answer Date of Assessment Author Status Yes 11/19/2020 1:16 PM HAMMER DRIVER Nory Whitaker R N Active * Do you have difficulty dressing or bathing? Answer Date of Assessment Author Status No 11/19/2020 1:16 PM HAMMER DRIVER Nory Whitaker R N Active * Because of a physical, mental, or emotional condition, do you have difficulty doing errands alone such as visiting a doctor's office or shopping? Answer Date of Assessment Author Status No 11/19/2020 1:16 PM HAMMER DRIVER Nory Whitaker R N Active documented as of this encounter Mental Status * Because of a physical, mental, or emotional condition, do you have serious difficulty concentrating, remembering, or making decisions? Answer Entry Date Author Status No 11/19/2020 1:16 PM HAMMER DRIVER Nory Whitaker R N Active documented in this encounter Plan of Treatment Scheduled Referrals Name Type Priority Associated Diagnoses Orde r Schedule Ambulatory referral to Physical Therapy Referral Routine Primary osteoarthritis of right hip Status post right hip replacement Ordered: 11/20/2020 documented as of this encounter Goals Goal Patient Goal Type Associated Problems Recent Progress Patient-Stated? Author Safety - able to safely ambulate at home; tripping hazards removed from the home General Krystal Wahl, RN Note: Pt wants to go home safely with new walker. Pt made aware that therapy will work with her on safety. documented as of this encounter Visit Diagnoses Diagnosis Primary osteoarthritis of right hip- Primary Primary localized osteoarthrosis, pelvic region and thigh Status post right hip replacement Hip joint replacement by other means documented in this encounter Care Teams Cotton Tier Relationship Specialty Start Date End Date Sebastien Sequeira MD [address] [place] [address] PCP - General INTERNAL MEDICINE 08/02/20 documented as of this encounter
--- OUTSIDE RECORDS SUMMARY | 2024-09-13 06:34 | XMS_ITS | Encounter Summary ---
Author Organization [facility] Address [facility]6 [facility] [place] [address] [place] [address] Care Team Providers Care Production Supv Name Role Phone Sebastien Sequeira MD Primary Care Provider [phone] Encounter Details Date Type Department Care Team (Latest Contact Info) Description 01/11/2021 Travel Social History Tobacco Use Types Packs/Day [...] have Coronavirus / COVID-19? No / Unsure 01/11/2021 8:28 AM CDT documented as of this encounter Functional Status * RETIRED Are you deaf or do you have serious difficulty hearing Answer Date of Assessment Author Status No 11/19/2020 1:16 PM DIRECTOR OF CATEGORY MANAGEMENT Acti ve * RETIRED Are you blind or do you have serious difficulty seeing, even when wearing glasses? Answer Date of Assessment Author Status No 11/19/2020 1:16 PM DIRECTOR OF CATEGORY MANAGEMENT Activ e * Do you have serious [...] on filedocumented in this encounter Care Teams Production Supv Relationship Specialty Start Date End Date Sebastien Sequeira MD [address] [place] [phone] PCP - General INTERNAL MEDICINE 08/02/20 documented as of this encounter
--- OUTSIDE RECORDS SUMMARY | 2024-09-13 06:34 | XMS_ITS | Encounter Summary ---
Author Organization [facility] Address [address] [place] [address]. [place] [address] [place] [address] Care Team Providers Care Hand Flesher Name Role Phone Sebastien Sequeira MD Primary Care Provider [phone] Reason for Visit * Reason Comments Postop Followup DOS 11/19/2020 right total hip arthroplasty Encounter Details Date Type Department Care Team (Latest Contact Info) Description 12/26/2020 3:00 PM CDT Office Visit [facility] [address] [address] Gustavo So MD [address] [place] [address] Postop Followup (DOS 11/19/2020 right total hip [...] - - Weight 131.5 kg (290 lb) 12/26/2020 2:48 PM CDT Height 177.8 cm (5' 10 ) 12/26/2020 2:48 PM CDT Body Mass Index 41.61 12/26/2020 2:48 PM CDT documented in this encounter Functional Status * RETIRED Are you deaf or do you have serious difficulty hearing Answer Date of Assessment Author Status No 11/19/2020 1:16 PM WIND INSTRUMENT REPAIRER Activ e * RETIRED Are you blind or do you have serious difficulty seeing, even when wearing glasses? Answer Date of Assessment Author Status No 11/19/2020 1:16 PM WIND INSTRUMENT REPAIRER Activ e * Do you have serious difficulty walking or climbing stairs? Answer Date of Assessment Author Status Yes 11/19/2020 1:16 PM WIND INSTRUMENT REPAIRER Nory Whitaker R N Active * Do you have difficulty dressing or bathing? Answer Date of Assessment Author Status No 11/19/2020 1:16 PM WIND INSTRUMENT REPAIRER Nory Whitaker R N Active * Because of a physical, mental, or emotional condition, do you have difficulty doing errands alone such as visiting a doctor's office or shopping? Answer Date of Assessment Author Status No 11/19/2020 1:16 PM WIND INSTRUMENT REPAIRER Nory Whitaker R N Active documented as of this encounter Mental Status * Because of a physical, mental, or emotional condition, do you have serious difficulty concentrating, remembering, or making decisions? Answer Entry Date Author Status No 11/19/2020 1:16 PM WIND INSTRUMENT REPAIRER Nory Whitaker R N Active documented in this encounter Progress Notes * Gustavo So MD - 12/26/2020 3:00 PM CDT Chief Complaint: Postop Followup (DOS 11/19/2020 right total hip arthroplasty) History of Present Illness: Gilma Mills is a 70-year-old female who presents to the office for Postop Followup (DOS 11/19/2020 right total hip arthroplasty) Patient states that she is doing okay in regards to her RIGHT hip. She states that she did have some increased groin pain last night. She states that she did ride in a car yesterday. She states that she is attending physical therapy which has been helping. She states that she did see Dr. Ryan tiwari be getting a lumbar injection tomorrow in [place]. She is currently taking oxycodone for pain relief. She states that her low back pain is bothering her at night and states that she does continue to have episodes of numbness and tingling that shoot down her RIGHT leg. She ambulates today with the assistance of a cane. ROS: See HPI for pertinent positives Problem [...] file Gets together: Not on file Attends bahai service: Not on file Active member of [...] , Rfl: ??? oxyCODONE-acetaminophen 5-325 MG tablet, Take 1 tablet by mouth every 4 (four) hours as needed.Indications: Chronic Pain, Disp: 30 tablet, Rfl: 0 ??? pantoprazole EC 40 MG tablet, Take [...] index is 41.61 kg/m??. Last Recorded Weight 12/26/20 1448 Weight: 131.5 kg (290 lb) Physical exam: Constitutional: Alert and in no acute distress. Neurological: The patient was oriented to person, place, and time. Eyes: The sclera and conjunctiva were normal ENT: Hearing was normal. Neck: The appearance of the neck was normal. Cardiovascular: Normal pulses. Pulmonary: No respiratory distress. Skin: No injuries or skin lesion. Musculoskeletal: Patient has a mildly antalgic gait and is using a cane. Hip range of motion is good and she does have some groin pain with internal rotation. Neurovascularly intact Results: X-ray demonstrates stable right total hip arthroplasty. She still has some lucency around her acetabulum but no subsidence Assessment: Encounter Diagnose(s) ICD-10-CM ICD-9-CM SNOMED CT(R) 1. Status post right hip replacement Z96.641 V43.64 HISTORY OF REPAIR OF HIP JOINT oxyCODONE-acetaminophen 5-325 MG tablet Plan: Patient is seeing continuing improvement in pain relief. She will continue with physical therapy tohelp with weaning off the cane and improving strength. I will see her back in 6 weeks. I did refillher Percocet Follow up: Return in about 6 weeks (around 02/06/2021). GUSTAVO SO MD documented in this encounter [...] means documented in this encounter Care Teams Hand Flesher Relationship Specialty Start Date End Date Sebastien Sequeira MD [address] [place] [address] PCP - General INTERNAL MEDICINE 08/02/20 documented as of this encounter
--- OUTSIDE RECORDS SUMMARY | 2024-09-13 06:34 | XMS_ITS | Encounter Summary ---
Author Organization [facility] Address [facility]6 [facility] [place] [address] [place] [address] Care Team Providers Care Survey Operations Director Name Role Phone Sebastien Sequeira MD Primary Care Provider Reason for Referral * Imaging (Routine) - Closed Specialty Diagnoses / Procedures Referred By Contac t Referred To Contact RADIOLOGY Diagnoses Lumbar radiculopathy Procedures MRI LUMB SPINE WO Gustavo Hollingsworth MD [address] [place] [address] Phone: tel: fax: Referral ID Status Reason Start Date Expiration Date Visits Re quested Visits Authorized [id number] Closed 11/30/2020 12/31/2021 1 1 Reason for Visit * Imaging (Routine) - Closed Specialty Diagnoses / Procedures Referred By Contac t Referred To Contact RADIOLOGY Diagnoses Lumbar radiculopathy Procedures MRI LUMB SPINE WO Gustavo Hollingsworth MD [address] [place] [address] Phone: tel: fax: Referral ID Status Reason Start Date Expiration Date Visits Re quested Visits Authorized [id number] Closed 11/30/2020 12/31/2021 1 1 Encounter Details Date Type Department Care Team (Latest Contact Info) Description 12/10/2020 6:44 AM CDT - 12/10/2020 11:59 PM CDT Hospital Encounter [facility] [address] [place] [address] Gustavo So MD [address] [place] [address] Discharge Disposition: Home or Self Care (Routine [...] Assessment Author Status No 11/19/2020 1:16 PM RN REHAB Activ e * RETIRED Are you blind or do you have serious difficulty seeing, even when wearing glasses? Answer Date of Assessment Author Status No 11/19/2020 1:16 PM RN REHAB Activ e * Do you have serious difficulty walking or climbing stairs? Answer Date of Assessment Author Status Yes 11/19/2020 1:16 PM RN REHAB Nory Whitaker R N Active * Do you have difficulty dressing or bathing? Answer Date of Assessment Author Status No 11/19/2020 1:16 PM RN REHAB Nory Whitaker R N Active * Because of a physical, mental, or emotional condition, do you have difficulty doing errands alone such as visiting a doctor's office or shopping? Answer Date of Assessment Author Status No 11/19/2020 1:16 PM RN REHAB Nory Whitaker R N Active documented as of this encounter Mental Status * Because of a physical, mental, or emotional condition, do you have serious difficulty concentrating, remembering, or making decisions? Answer Entry Date Author Status No 11/19/2020 1:16 PM RN REHAB Nory Whitaker R N Active documented in [...] 01/14/2020 3 HYDROcodone-acetamin ophen 5-325 MG tabletIndications:Ac platinum Pain < 7 Day Supply Take 1 [...] Procedure Name Priority Date/Time Associated Diagnosis Comments MRI LUMB SPINE WO CON Routine 12/10/2020 7:53 AM CDT Lumbar radiculopathy documented in this encounter Results * MRI LUMB SPINE [...] in this encounter Visit Diagnoses Diagnosis Lumbar radiculopathy Thoracic or lumbosacral neuritis or radiculitis, unspecified documented in this encounter Care Teams Survey Operations Director Relationship Specialty Start Date End Date Sebastien Sequeira MD [address] [place] [address] PCP - General INTERNAL MEDICINE 08/02/20 documented as of this encounter
--- OUTSIDE RECORDS SUMMARY | 2024-09-13 06:34 | XMS_ITS | Encounter Summary ---
Author Organization [facility] Address [facility] [place] [address] [place] [address] Care Team Providers Care Ordnance Equipment Worker Name Role Phone Sebastien Sequeira MD Primary Care Provider [phone] Encounter Details Date Type Department Care Team (Latest Contact Info) Description 01/16/2021 Travel Social History Tobacco Use Types Packs/Day [...] Assessment Author Status No 11/19/2020 1:16 PM BUYER ASSISTANT Activ e * RETIRED Are you blind or do you have serious difficulty seeing, even when wearing glasses? Answer Date of Assessment Author Status No 11/19/2020 1:16 PM BUYER ASSISTANT Activ e * Do you have [...] on filedocumented in this encounter Care Teams Ordnance Equipment Worker Relationship Specialty Start Date End Date Sebastien Sequeira MD [address] [place] [phone] PCP - General INTERNAL MEDICINE 08/02/20 documented as of this encounter
--- OUTSIDE RECORDS SUMMARY | 2024-09-13 06:34 | XMS_ITS | Encounter Summary ---
Author Organization [facility] Address [address] [place] [address]. [place] [address] [place] [address] Care Team Providers Care Scalping Machine Operator Name Role Phone Sebastien Sequeira MD Primary Care Provider [phone] Encounter Details Date Type Department Care Team (Latest Contact Info) Description 11/16/2020 9:00 AM STRAINER TENDER - 11/16/2020 11:59 PM STRAINER TENDER Hospital Encounter [address] [place] [address] Gustavo So MD [address] [place] [address] Discharge Disposition: Home or Self [...] have Coronavirus / COVID-19? No / Unsure 11/16/2020 8:59 AM STRAINER TENDER documented as of this encounter Medications at Time of Discharge [...] Associated Diagnosis Comments CORONAVIRUS (COVID 19) Routine 11/16/2020 9:10 AM STRAINER TENDER Pre-operative laboratory examination URINALYSIS WI REFLEX TO CULTURE Routine 11/16/2020 7:30 AM STRAINER TENDER Primary osteoarthritis of right hip Chronic hip pain, right documented in this encounter Results * CORONAVIRUS (COVID 19) [facility] (11/16/2020 9:10 AM STRAINER TENDER) CORONAVIRUS SARS COV 2 PCR (RESP) NOT DETECTED NOT DETECTED 11/18/2020 8:06 AM STRAINER TENDER [facility] Comment: A Not Detected (negative) test result for this test means that SARS- CoV-2 RNA was not present in the specimen above the limit of detection. A negative result does not rule out the possibility of COVID-19 and should not be used as the sole basis for treatment or patient management decisions. ??If COVID-19 is still suspected, based on exposure history together with other clinical findings, re-testing should be considered in consultation with public health authorities. Laboratory test results should always be considered in the context of clinical observations and epidemiological data in making a final diagnosis and patient management decisions. Please review the Fact Sheets and FDA authorized labeling available for health care providers and patients using the following websites: https://www.[employer]/home/Covid-19/HCP/Quest[facility]/fact- sheet.html https://www.[employer]/home/Covid-19/Patients/ [facility]/fact-sheet.html This test has been authorized by the FDA under an Emergency Use Authorization (EUA) for use by authorized laboratories. Due to the current public health emergency, [facility] is receiving a high volume of samples from a wide variety of swabs and media for COVID-19 testing. In order to serve patients during this public health crisis, samples from appropriate clinical sources are being tested. Negative test results derived from specimens received in non-commercially manufactured viral collection and transport media, or in media and sample collection kits not yet authorized by FDA for COVID-19 testing should be cautiously evaluated and the patient potentially subjected to extra precautions such as additional clinical monitoring, including collection of an additional specimen. Methodology: ??Nucleic Acid Amplification Test (NAAT) includes RT-PCR or TMA Additional information about COVID-19 can be found at the [facility] website: www.iTagged/Covid19. Test performed at [email or web address] [address] [place], [place] ??[phone] Director: WALE SALINAS DO,MPH FIRST TEST NO 11/16/2020 9:07 AM [facility] EMPLOYED IN HEALTHCARE NO 11/16/2020 9:07 AM [facility] SYMPTOMATIC DEFINED BY CDC NO 11/16/2020 9:07 AM [facility] DATE OF SYMPTOM ONSET UNKNOWN 11/16/2020 9:11 AM [facility] HOSPITALIZATION STATUS NO 11/16/2020 9:07 AM STRAINER TENDER [facility] PATIENT IN ICU NO 11/16/2020 9:07 AM [facility] RESIDENT OF [facility] NO 11/16/2020 9:07 AM [facility] NOT 11/16/2020 9:11 AM [facility] PATIENT'S RACE WHITE OR 11/16/2020 9:07 AM [facility] ETHNICITY NONHISPANIC 11/16/2020 9:07 AM [facility] SOURCE (QST) NASOPHARYNGEAL SWAB 11/16/2020 9:07 AM STRAINER TENDER [facility] NASOPHARYNGEAL SWAB / Unknown 11/16/2020 9:10 AM STRAINER TENDER us Gustavo So MD MICROBIOLOGY - GENERAL ORDERAB LES Final Result [facility] [address] [employer] [place] [address], [email or web address] [address] [place] [address], [place] * URINALYSIS WI REFLEX TO CULTURE (11/16/2020 7:30 AM STRAINER TENDER) COLOR (U) YELLOW 11/16/2020 9:25 AM STRAINER TENDER [facility] TRANSPARENCY CLEAR 11/16/2020 9:25 AM STRAINER TENDER [facility] SPECIFIC GRAVITY (U) 1.025 1.000 - 1.025 11/16/2020 9:25 AM STRAINER TENDER [facility] U PH 7.0 5.0 - 8.0 11/16/2020 9:25 AM STRAINER TENDER [facility] LEUKOCYTES (U) NEGATIVE NEGATIVE 11/16/2020 9:25 AM STRAINER TENDER [facility] NITRITES NEGATIVE NEGATIVE 11/16/2020 9:25 AM STRAINER TENDER [facility] PROTEIN (U) NEGATIVE NEGATIVE 11/16/2020 9:25 AM [facility] URINE GLUCOSE NEGATIVE NEGATIVE 11/16/2020 9:25 AM [facility] KETONES MG/DL (U) NEGATIVE NEGATIVE 11/16/2020 9:25 AM [facility] UROBILINOGEN 0.2 <1.0 EU/DL 11/16/2020 9:25 AM STRAINER TENDER [facility] BILIRUBIN (U) NEGATIVE NEGATIVE 11/16/2020 9:25 AM STRAINER TENDER [facility] BLOOD (U) NEGATIVE NEGATIVE 11/16/2020 9:25 AM STRAINER TENDER [facility] WBC/HPF 0-5 0 - 5 /HPF 11/16/2020 9:25 AM [facility] EPI/HPF OCCASIONAL /LPF 11/16/2020 9:25 AM STRAINER TENDER [facility] CULTURE & SENSITIVITY INDICATED? NOT INDICATED 11/16/2020 9:25 AM [facility] URINE SPECIMEN OBTAINED BY CLEAN CATCH PROCEDURE / Unknown 11/16/2020 7:30 AM STRAINER TENDER us Gustavo So MD URINE ORDERABLES Final Result [facility] [address] [place] [address], documented in this encounter Visit Diagnoses Diagnosis Pre-operative laboratory examination Pre-procedural laboratory examination Primary osteoarthritis of right hip Primary localized osteoarthrosis, pelvic region and thigh Chronic hip pain, right documented in this encounter Additional Health Concerns Infection Onset Date Last Indicated Resolved Time COVID-19 Rule Out 11/16/2020 11/16/2020 11/18/2020 8:06 AM STRAINER TENDER documented as of this encounter Care Teams Scalping Machine Operator Relationship Specialty Start Date End Date Sebastien Sequeira MD [address] [place] [address] PCP - General INTERNAL MEDICINE 08/02/20 documented as of this encounter
--- OUTSIDE RECORDS SUMMARY | 2024-09-13 06:34 | XMS_ITS | Encounter Summary ---
Author Organization [facility] Address [facility] [place] [address] [place] [address] Care Team Providers Care Real Estate Coordinator Name Role Phone Sebastien Sequeira MD Primary Care Provider [phone] Encounter Details Date Type Department Care Team (Latest Contact Info) Description 05/10/2021 Travel Social History Tobacco Use Types Packs/Day [...] Assessment Author Status No 11/19/2020 1:16 PM AXMINSTER RUG SETTER Acti ve * RETIRED Are you blind or do you have serious difficulty seeing, even when wearing glasses? Answer Date of Assessment Author Status No 11/19/2020 1:16 PM AXMINSTER RUG SETTER Activ e * Do you have serious [...] on filedocumented in this encounter Care Teams Real Estate Coordinator Relationship Specialty Start Date End Date Sebastien Sequeira MD [address] [place] [phone] PCP - General INTERNAL MEDICINE 08/02/20 documented as of this encounter
--- OUTSIDE RECORDS SUMMARY | 2024-09-13 06:34 | XMS_ITS | Encounter Summary ---
Author Organization [facility] Address [address] [place] [address]. [place] [address] [place] [address] Care Team Providers Care Classer Name Role Phone Sebastien Sequeira MD Primary Care Provider [phone] Reason for Visit * Reason Comments Therapy Report (SCAN) Encounter Details Date Type Department Care Team (Late st Contact Info) Description 12/24/2020 Scan [facility] [place] [address] Scanned, Documents Therapy Report (SCAN) Social History [...] Assessment Author Status No 11/19/2020 1:16 PM SEC REPORTING CONSULTANT Activ e * RETIRED Are you blind or do you have serious difficulty seeing, even when wearing glasses? Answer Date of Assessment Author Status No 11/19/2020 1:16 PM SEC REPORTING CONSULTANT Activ e * Do you have serious difficulty walking or climbing stairs? Answer Date of Assessment Author Status Yes 11/19/2020 1:16 PM SEC REPORTING CONSULTANT Nory Whitaker R N Active * Do you have difficulty dressing or bathing? Answer Date of Assessment Author Status No 11/19/2020 1:16 PM SEC REPORTING CONSULTANT Nory Whitaker R N Active * Because of a physical, mental, or emotional condition, do you have difficulty doing errands alone such as visiting a doctor's office or shopping? Answer Date of Assessment Author Status No 11/19/2020 1:16 PM SEC REPORTING CONSULTANT Nory Whitaker R N Active documented as of this encounter Mental Status * Because of a physical, mental, or emotional condition, do you have serious difficulty concentrating, remembering, or making decisions? Answer Entry Date Author Status No 11/19/2020 1:16 PM SEC REPORTING CONSULTANT Nory Whitaker R N Active documented in [...] on filedocumented in this encounter Care Teams Classer Relationship Specialty Start Date End Date Sebastien Sequeira MD [address] [place] [address] PCP - General INTERNAL MEDICINE 08/02/20 documented as of this encounter
--- OUTSIDE RECORDS SUMMARY | 2024-09-13 06:34 | XMS_ITS | Encounter Summary ---
Author Organization [facility] Address [facility] [place] [address] [place] [address] Care Team Providers Care Garment Sorter Name Role Phone Sebastien Sequeira MD Primary Care Provider [phone] Reason for Visit * Reason Comments Shoulder Pain Osteoarthritis of gl enohumeral joint, right Encounter Details Date Type Department Care Team (Latest Contact Info) Description 05/29/2021 2:00 PM CDT Office Visit [facility] [address] [address] Gustavo So MD [address] [place] [address] Shoulder Pain (Osteoarthritis of glenohumeral joint, right) Social History Tobacco Use Types Packs/Day Years [...] - - Weight 131.5 kg (290 lb) 05/29/2021 2:01 PM CDT Height 177.8 cm (5' 10 ) 05/29/2021 2:01 PM CDT Body Mass Index 41.61 05/29/2021 2:01 PM CDT documented in this encounter Functional Status * RETIRED Are you deaf or do you have serious difficulty hearing Answer Date of Assessment Author Status No 11/19/2020 1:16 PM ASSISTANT PROFESSOR SCULPTURE Activ e * RETIRED Are you blind or do you have serious difficulty seeing, even when wearing glasses? Answer Date of Assessment Author Status No 11/19/2020 1:16 PM ASSISTANT PROFESSOR SCULPTURE Activ e * Do you have serious difficulty walking or climbing stairs? Answer Date of Assessment Author Status Yes 11/19/2020 1:16 PM ASSISTANT PROFESSOR SCULPTURE Nory Whitaker R N Active * Do you have difficulty dressing or bathing? Answer Date of Assessment Author Status No 11/19/2020 1:16 PM ASSISTANT PROFESSOR SCULPTURE Nory Whitaker R N Active * Because of a physical, mental, or emotional condition, do you have difficulty doing errands alone such as visiting a doctor's office or shopping? Answer Date of Assessment Author Status No 11/19/2020 1:16 PM ASSISTANT PROFESSOR SCULPTURE Nory Whitaker R N Active documented as of this encounter Mental Status * Because of a physical, mental, or emotional condition, do you have serious difficulty concentrating, remembering, or making decisions? Answer Entry Date Author Status No 11/19/2020 1:16 PM ASSISTANT PROFESSOR SCULPTURE Nory Whitaker R N Active documented in this encounter Progress Notes * Gustavo So MD - 05/29/2021 2:00 PM CDT Chief [...] Arthroplasty Follow up: Return for Post-Op. GUSTAVO SO MD documented in this encounter [...] Diagnoses Diagnosis History of total right hip arthroplasty- Primary Rotator cuff tear arthropathy, unspecified laterality History of total right hip arthroplasty documented in this encounter Care Teams Garment Sorter Relationship Specialty Start Date End Date Sebastien Sequeira MD [address] [place] [address] PCP - General INTERNAL MEDICINE 08/02/20 documented as of this encounter
--- OUTSIDE RECORDS SUMMARY | 2024-09-13 06:34 | XMS_ITS | Encounter Summary ---
Author Organization [facility] Address [address] [place] [address]. [place] [address] [place] [address] Care Team Providers Care Dental Chairside Assistant Name Role Phone Sebastien Sequeira MD Primary Care Provider [phone] Reason for Visit * Reason Comments Postop Followup RIGHT total hip DOS: 11/19/2020 Shoulder Pain RIGHT Encounter Details Date Type Department Care Team (Latest Contact Info) Description 02/19/2021 9:00 AM CDT Office Visit [facility] [address] [address] Gustavo So MD [address] [place], [place] [id number] Postop Followup (RIGHT total hip DOS: 11/19/2020); Shoulder Pain (RIGHT) Social History Tobacco Use Types Packs/Day Years [...] - - Weight 131.5 kg (290 lb) 02/19/2021 9:06 AM CDT Height 177.8 cm (5' 10 ) 02/19/2021 9:06 AM CDT Body Mass Index 41.61 02/19/2021 9:06 AM CDT documented in this encounter Functional Status * RETIRED Are you deaf or do you have serious difficulty hearing Answer Date of Assessment Author Status No 11/19/2020 1:16 PM INTERIOR MECHANIC Activ e * RETIRED Are you blind or do you have serious difficulty seeing, even when wearing glasses? Answer Date of Assessment Author Status No 11/19/2020 1:16 PM INTERIOR MECHANIC Activ e * Do you have serious difficulty walking or climbing stairs? Answer Date of Assessment Author Status Yes 11/19/2020 1:16 PM INTERIOR MECHANIC Nory Whitaker R N Active * Do you have difficulty dressing or bathing? Answer Date of Assessment Author Status No 11/19/2020 1:16 PM INTERIOR MECHANIC Nory Whitaker R N Active * Because of a physical, mental, or emotional condition, do you have difficulty doing errands alone such as visiting a doctor's office or shopping? Answer Date of Assessment Author Status No 11/19/2020 1:16 PM INTERIOR MECHANIC Nory Whitaker R N Active documented as of this encounter Mental Status * Because of a physical, mental, or emotional condition, do you have serious difficulty concentrating, remembering, or making decisions? Answer Entry Date Author Status No 11/19/2020 1:16 PM INTERIOR MECHANIC Nory Whitaker R N Active documented in this encounter Progress Notes * Gustavo So MD - 02/19/2021 9:00 AM CDT Chief Complaint: Postop Followup (RIGHT total hip DOS: 11/19/2020) and Shoulder Pain (RIGHT) History of Present Illness: Gilma Mills is a 70-year-old female who presents to the office for Postop Followup (RIGHT total hip DOS: 11/19/2020) and Shoulder Pain (RIGHT) Patient states that she is doing very well in regards to her RIGHT hip. She denies any pain in her RIGHT hip pain. She has completed her physical therapy. She is sleeping okay at night. She does continue to have low back pain. She has tried and failed [address] Davis without much relief.She is scheduled with Dr. Damon Thursday02/22/2021 for her back. She does currently walk with a cane. She has been taking tramadol and flexeril for pain relief. Patient states that she has been having RIGHT shoulder pain for several years. She locates the painlaterally and states that the pain will radiate down her RIGHT arm. She does admit previous rotatorcuff surgery in 2000. She does admit difficulty reaching overhead and is unable to reach behind theback. She denies any history of shoulder injections. She does have numbness and tingling in her 4thand 5th fingers. She denies any EMG. Patient is RIGHT hand dominant. ROS: See HPI [...] Gatherings with Friends and Family: ??? Attends Religion Services: ??? Active Member of Clubs or Organizations: ??? Attends Club or Organization Meetings: ??? Marital Status: Intimate Partner Violence: ??? Fear of Current or Ex-Partner: ??? Emotionally Abused: ??? Physically Abused: ??? Sexually Abused: Medications: Current Outpatient Medications: ??? busPIRone 15 [...] index is 41.61 kg/m??. Last Recorded Weight 02/19/21 0906 Weight: 131.5 kg (290 lb) Physical exam: Constitutional: Alert and in no acute distress. Neurological: The patient was oriented to person, place, and time. Eyes: The sclera and conjunctiva were normal ENT: Hearing was normal. Neck: The appearance of the neck was normal. Cardiovascular: Normal pulses. Pulmonary: No respiratory distress. Skin: No injuries or skin lesion. Musculoskeletal: Right hip exam demonstrates excellent range of motion without any discomfort. Right shoulder exam demonstrates mild restriction in terminal range of motion and she has moderate weakness with resisted abduction. Global range of motion is painful. She is neurovascularly intact Results: Right hip x-ray demonstrates good bony apposition. She does have a little bit of lucency around heracetabular component but good positioning is maintained without subsidence. No leg length discrepancy. Right shoulder x-ray demonstrates severe glenohumeral degeneration with large osteophytes consistent with end-stage osteoarthritis Assessment: Encounter Diagnose(s) ICD-10-CM ICD-9-CM SNOMED CT(R) 1. Osteoarthritis of glenohumeral joint, right M19.011 715.91 OSTEOARTHRITIS OF RIGHT GLENOHUMERAL JOINT XR SHOULDER RT 3V lidocaine (XYLOCAINE) 1 % injection SOLN 4 mL methylPREDNISolone acetate (DEPO-Medrol) injection 80 mg 2. History of total right hip arthroplasty Z96.641 V43.64 HISTORY OF TOTAL REPLACEMENT OF RIGHT HIPJOINT Procedure: Procedure: Injection of the Glenohumeral Joint on the right. Indications for the procedure include Osteoarthritis. The [...] were no complications. Follow-up in the office as needed. Plan: I injected the right glenohumeral joint with Depo-Medrol and lidocaine to provide some relief. Patient already takes ibuprofen. She uses a cane in the right hand and is planning to see Dr. Damon to consider options for her back pain. I will see her back in July for routine follow-up for bothof her hips and as needed for her right shoulder. I do not see any way to get long-term relief for shoulder other than replacement when is convenient Follow up: Return in about 6 months (around 08/21/2021). GUSTAVO SO MD documented in this encounter [...] this encounter Results * XR SHOULDER RT 3V (02/19/2021 9:29 AM CDT) Anatomical Region Laterality Modality Shoulder Radiographic Charlotte ging 02/19/2021 4:12 PM CDT Impressions 02/19/2021 4:14 PM CDT IMPRESSION: 1. Severe degenerative changes of the humerus, with probable resorption of parts of the acromion and clavicular head. Mild degenerative changes of the glenoid. No acute bony abnormalities. Referred By: GUSTAVO SO Interpreted By: Casey Gonzalez MD, 02/19/2021 4:12 PM Narrative 02/19/2021 4:14 PM CDT Examination: XR SHOULDER RT 3V Exam time: 02/19/2021 9:29 AM Clinical history: Right shoulder pain Comparison: None Technique: AP with internal rotation, scapular Y, and axial views of the right shoulder Findings: There are severe degenerative changes of the humeral head, with extensive osteophyte formation. Equivocal resorption of the acromion and clavicular head. Mild osteophytic spurring of the inferior rim of the glenoid. No acute fracture or dislocation is definitively identified. Right lung appears clear. Procedure Note Casey Gonzalez MD - 02/19/2021 Examination: XR SHOULDER RT 3V Exam time: 02/19/2021 9:29 AM Clinical history: Right shoulder pain Comparison: None Technique: AP with internal rotation, scapular Y, and axial views of theright shoulder Findings: There are severe degenerative changes of the humeral head, withextensive osteophyte formation. Equivocal resorption of the acromion andclavicular head. Mild osteophytic spurring of the inferior rim of theglenoid. No acute fracture or dislocation is definitively identified.Right lung appears clear. IMPRESSION: 1. Severe degenerative changes of the humerus, with probable resorption ofparts of the acromion and clavicular head. Mild degenerative changes ofthe glenoid. No acute bony abnormalities. Referred By: GUSTAVO SO Interpreted By: Casey Gonzalez MD, 02/19/2021 4:12 PM Gustavo So MD GENERAL IMAGING Final Result documented in this encounter Visit Diagnoses Diagnosis Osteoarthritis of glenohumeral joint, right- Primary History of total right hip arthroplasty documented in this encounter Administered Medications Inactive Administered Medications - up to 3 most recent administrations Medication Order MAR Action Action Date Dose Rate Site lidocaine (XYLOCAINE) 1 % injection SOLN 4 mL 4 mL, Other, Once, 1 dose, On Thu02/19/21 at 1030Indications:Osteoarthritis of glenohumeral joint, right Given 02/19/2021 10:03 AM CDT 4 mLs methylPREDNISolone acetate (DEPO-Medrol) injection 80 mg 80 mg, Other, Once, 1 dose, On Thu02/19/21 at 1030, Shake WellIndications:Osteoarthritis of glenohumeral joint, right Given 02/19/2021 10:03 AM CDT 80 mg documented in this encounter Care Teams Dental Chairside Assistant Relationship Specialty Start Date End Date Sebastien Sequeira MD [address] [place] [address] PCP - General INTERNAL MEDICINE 08/02/20 documented as of this encounter
--- OUTSIDE RECORDS SUMMARY | 2024-09-13 06:34 | XMS_ITS | Encounter Summary ---
Author Organization [facility] Address Critical access hospital6 [facility] [place] [address] [place] [address] Care Team Providers Care Technical Report Writer Name Role Phone Sebastien Sequeira MD Primary Care Provider [phone] Reason for Visit * Auth/Cert Specialty Diagnoses / Procedures Referred By Aaron t Referred To Contact Diagnoses M16.11 Procedures RIGHT Total Hip ArthroplastyNate notifiedOutpatient Status Referral ID Status Reason Start Date Expiration Date Visits Re quested Visits Authorized [id number] 1 1 Encounter Details Date Type Department Care Team (Late st Contact Info) Description 11/19/2020 9:23 AM ORDER CONTROL CLERK BLOOD BANK Anesthesia Event [facility] [address] [facility] [place] [address] Nura Bey MD [facility] [place] [address] Anesthesia Record Procedure Summary Procedure Name Responsible Anesthesiologist Anesthesia Start Time Anesthesia Stop Time RIGHT Total Hip Arthroplasty (Right: Hip) 11/19/20 0923 11/19/20 1215 Events Date Time Event Comment 11/19/2020 0843 An Block 0856 AN PROJECT PLANNER Prepped 0917 0923 An Start Patient ID and consent checked and patient reassessed. 0923 An Start Data 0925 Face Mask Applied 0942 Anesthesia Ready 0943 An Block 1207 an stop data 1215 Post Anesthetic Care Handoff I completed my handoff to the receiving nurse during which we: 1. Identified the patient 2. Identified the responsible provider 3. Reviewed the pertinent medical history 4. Discussed the surgical course 5. Reviewed intra-op anesthesia management and issues during anesthesia 6. Set expectations for post-procedure period 7. Allowed opportunity for questions and acknowledgement of understanding. 1215 An Stop Meds Name Total midazolam 2 mg/2 mL injection 2 mg fentaNYL (SUBLIMAZE) 100 mcg/2 mL inject ion 100 mcg propofol (DIPRIVAN) 500 mg/50 mL injecti on 612.24 mg BUpivacaine 0.75%-dextrose 8.25% intrath ecal injection 2 mL morphine (PF) (ASTRAMORPH) 1 mg/mL injec tion 0.2 mcg dexamethasone (DECADRON) 4 mg/mL injecti on 8 mg metoclopramide (REGLAN) 5 mg/mL injectio n 10 mg ondansetron (ZOFRAN) injection 12 mg phenylephrine 50 mg in NS 250 mL infusio n 12,225 mcg ROpivacaine 0.5%-EPINEPHrine 1:200,000 5 0 mL ceFAZolin (ANCEF) 3 g in NS 100 mL IVPB 3 g tranexamic acid (CYKLOKAPRON) injection 1,000 mg 1,000 mg ketamine 50 mg/mL injection 200 mg HYDROmorphone (DILAUDID) injection 1 mg/ mL 1 mg lactated ringers infusion 1,601.33 mL * Agents Name O2 * Blood No blood administrations on file. Lines, Drains, and Airways Type Details Placement Removal Peripheral IV Placement Date: 11/19/20; Placement Time: 825; Placed Outside of This Facility?: No; Size: 20 G; Orientation: Right, Posterior; Location: Forearm; Site Prep: Chlorhexidine; Local Anesthetic: None; Inserted By: chika nava; Insertion attempts: 1; Ultrasound-guided Placement?: No; Patient Tolerance: Tolerated well; Removal Date: 11/21/20; Removal Time: 143; Removal Reason: Patient Discharged 11/19/20825 by Stephanie Mcmillan RN 11/21/201437 by Vicki Foote RN Canseco Catheter 11/19/20; 0955; No; I & O - Strict I&O or Critically ill requiring I&O Q1-2hrs; 1; Hand hygiene performed, Site cleansed with sterile antiseptic, Sterile gloves, drape and lubricant used, Catheter inserted using aseptic technique, Canseco care post catheter insertion, Drainage bag secured below level of bladder, Closed system maintained; 18 Fr.; Per Order 11/19/20 0955 by Bailey Chester RN 11/20/20 0500 by Miranda Winlker RN Surgical/Incision 11/19/20; 1200; Surgical Wound; Hip; Right; cricket, xeroform, fluffs, medipore tape; 11/21/20; 1718 11/19/20 1200 by Bailey Chester RN 11/21/20 1718 by Automatic Discharge Provider documented in this [...] COVID-19? No / Unsure 11/19/2020 8:08 AM ORDER CONTROL CLERK BLOOD BANK documented as of this encounter Functional Status documented as of this encounter Mental Status * Question Answer Entry Date Author Status Because of a physical, mental, or emotional condition, do you have serious difficulty concentrating, remembering, or making decisions? No 11/19/2020 1:16 PM ORDER CONTROL CLERK BLOOD BANK Nory Whitaker RN Active * Because of a physical, mental, or emotional condition, do you have serious difficulty concentrating, remembering, or making decisions? Answer Entry Date Author Status No 11/19/2020 1:16 PM ORDER CONTROL CLERK BLOOD BANK Nory Whitaker R N Active documented in this encounter Progress Notes * Aki Wallis CRNA - 11/20/2020 10:18 AM CST Addendum created 11/20/20 1018 by Aki Wallis CRNA Clinical Note Signed R CONTROL CLERK BLOOD BANK documented in this encounter OR Notes * Anesthesia Postprocedure Evaluation - Aki Wallis CRNA - 11/19/2020 3:34 PM CST Anesthesia Post-op Note [place] Procedure(s): RIGHT Total Hip Arthroplasty (Right Hip) Anesthesia type: spinal Vitals: 11/19/20 1515 BP: 118/69 Vitals: 11/19/20 1515 Pulse: 73 Vitals: 11/19/20 1515 Resp: 18 Vitals: 11/19/20 1445 Temp: 36.4 ??C Vitals: 11/19/20 1515 SpO2: 95% Patient Location: PACU Level of Consciousness: awake, alert and oriented Pain Management: pain being treated or addressed Airway Patency: patent Respiratory Status: spontaneous ventilation and acceptable Cardiovascular Status: acceptable, stable and hemodynamically stable Post-Op Nausea: none Postoperative Hydration: euvolemic Complications: no anesthesia complication Comments: 11/20/2020 - Pt sitting in chair. States she feels good and has some residual numbness infoot after FIB. Explained to pt this should subside within a day but could linger longer. Thanked the pt for the opportunity to participate in her care. R CONTROL CLERK BLOOD BANK R CONTROL CLERK BLOOD BANK * Anesthesia Procedure Notes - Aki Wallis CRNA - 11/19/2020 9:43 AM ORDER CONTROL CLERK BLOOD BANK Associated Order(s): Spinal Block Spinal Block Date/Time: 11/19/2020 9:43 AM Patient location during procedure: OR Reason for block: primary anesthetic Staffing Anesthesiology Provider: Aki Wallis CRNA Preanesthetic Checklist Completed: patient identified, site marked, surgical consent, pre-op evaluation, timeout performed,IV checked, risks and benefits discussed and monitors and equipment checked Spinal Block Patient position: sitting Prep: povidone-iodine Patient monitoring: continuous pulse oximetry and blood pressure Approach: midline Ultrasound-guided Placement: No Location: L2-3 L2-3 Attempts: 1 L3-4 Attempts: 1, Dose: 3 mL Needle Needle type: Pencil tip Needle gauge: 25 G Needle length: 5 cm Needle attempts: 1 Assessment Sensory level: T5 Events: positive free flow CSF Additional Notes SAB placed: Prep, drape. 3ml 1% lido local. Introducer placed. SAB needle placed. + CSF, - Blood. Injected meds as noted. Patient sitting for 3 min. Patient tolerated procedure well. R CONTROL CLERK BLOOD BANK * Anesthesia Procedure Notes - Aki Wallis CRNA - 11/19/2020 8:59 AM ORDER CONTROL CLERK BLOOD BANK Associated Order(s): Peripheral Block Peripheral Nerve Block Peripheral Block Procedure Start Time: 11/19/2020 8:43 AM Procedure Stop Time: 11/19/2020 8:48 AM Patient Location During Procedure: pre-op Reason for Block: at surgeon's request and post-op pain management Preanesthetic Checklist Completed: patient identified, site marked, consent, pre-op evaluation, timeout performed, IV checked, risks and benefits discussed and monitors and equipment checked Procedure Information Patient Position: Supine Prep: Chloraprep Patient Monitoring: blood pressure, continuous pulse ox, ECG/EKG and heart rate Block Type: Fascia Iliaca Laterality: right Injection Technique: single-shot Procedures: ultrasound guided Draping: sterile technique maintained Needle Needle Gauge: 22 G Needle Length: 3 1/8 in (3 in) Needle Localization: anatomical landmarks and ultrasound guidance Test Dose: negative Local Volume: 50 mL Needle Attempts: 1 Assessment Injection Assessment: incremental injection, negative aspiration for heme, no apparent complications, no paresthesia on injection, paresthesia absent, ultrasound image saved and well tolerated Heart rate change: no Additional Notes Risks explained: difficult placement, may be ineffective, bleeding, infection, nerve damage. Benefits explained to patient: may lower sedation and/or general anesthetic dose, possibly less pain afterprocedure.Timeout performed including patients name, date, and laterality. Patient participated in the timeout. Antiseptic prep. Sterile probe cover applied. Identified Femoral artery and vein in Femoral crease right side. Needle and artery identified. 50 mls of 0.5% Ropi with epi. Dispersed below, medial, and lateral to femoral artery as well as above medial and lateral to femoral vein. Injected in 5 ml increments. Injected local as indicated with multiple negative aspirations. Patient tolerated procedure well. R CONTROL CLERK BLOOD BANK * Anesthesia Preprocedure Evaluation - Aki Wallis CRNA - 11/15/2020 7:29 AM CST Anesthesia ROS/MED History Reviewed: Patient summary , ECG, Family history anesthesia, Anesthesia history , Medications , Labs Pre-Anesthetic State: alert, awake and responds appropriately Pulmonary (+) sleep apnea Cardiovascular Exercise tolerance:good (+) hypertension, (well controlled) Neuro/Psych (+) neuromuscular disease, CVA, depression GI/Hepatic/Renal (+) GERD Endo/Other (+) obese, (Morbid), hypothyroidism GENERAL COMMENTS Propanolol SINUS RHYTHM R CONTROL CLERK BLOOD BANK SFL- had L ALEXUS done 07/2020 with SAB and FIB with no complications Pt states no chest pain or SOB with exertion Pt states she does not use her CPAP Physical Evaluation Airway Mallampati: II TM Distance: >3 FB Neck ROM: normal Dental (upper dentures), (lower dentures) Pulmonary Pulmonary exam normal Breath sounds clear to auscultation Cardiovascular Rhythm: regular Rate: normal Cardiovascular exam normal Anesthesia Plan ASA 3 Intravenous Induction Anesthesia type: spinal With FIB (femoral nerve approach) Informed Consent Anesthetic plan and risks discussed with patient of whom consent was obtained. . R CONTROL CLERK BLOOD BANK R CONTROL CLERK BLOOD BANK R CONTROL CLERK BLOOD BANK documented in this encounter Plan of Treatment [...] Procedure Name Priority Date/Time Associated Diagnosis Comments AN SPINAL Routine 11/19/2020 9:43 AM ORDER CONTROL CLERK BLOOD BANK FL AN PERIPHERAL BLOCK SINGLE-SHOT Routine 11/19/2020 8:59 AM ORDER CONTROL CLERK BLOOD BANK documented in this encounter Results * AN SPINAL (11/19/2020 9:43 AM ORDER CONTROL CLERK BLOOD BANK) Narrative Aki Wallis CRNA - 11/19/2020 9:43 AM ORDER CONTROL CLERK BLOOD BANK Aki Wallis CRNA ? 11/19/2020 ??9:43 AM Spinal Block Date/Time: 11/19/2020 9:43 AM Patient location during procedure: OR Reason for block: primary anesthetic Staffing Anesthesiology Provider: Aki Wallis CRNA Preanesthetic Checklist Completed: patient identified, site marked, surgical consent, pre-op evaluation, timeout performed, IV checked, risks and benefits discussed and monitors and equipment checked Spinal Block Patient position: sitting Prep: povidone-iodine Patient monitoring: continuous pulse oximetry and blood pressure Approach: midline Ultrasound-guided Placement: ??No Location: L2-3 L2-3 Attempts: 1 L3-4 Attempts: 1, Dose: ??3 mL Needle Needle type: Pencil tip Needle gauge: 25 G Needle length: 5 cm Needle attempts: 1 Assessment Sensory level: T5 Events: positive free flow CSF Additional Notes SAB placed: Prep, drape. 3ml 1% lido local. Introducer placed. SAB needle placed. + CSF, - Blood. Injected meds as noted. Patient sitting for 3 min. Patient tolerated procedure well. us Aki Wallis CRNA FL ANESTHESIA Final Res ult * FL AN PERIPHERAL BLOCK SINGLE-SHOT (11/19/2020 8:59 AM ORDER CONTROL CLERK BLOOD BANK) Narrative Aki Wallis CRNA - 11/19/2020 8:59 AM ORDER CONTROL CLERK BLOOD BANK Aki Wallis CRNA ? 11/19/2020 ??9:03 AM Peripheral Nerve Block Peripheral Block Procedure Start Time: 11/19/2020 8:43 AM Procedure Stop Time: 11/19/2020 8:48 AM Patient Location During Procedure: pre-op Reason for Block: at surgeon's request and post-op pain management Preanesthetic Checklist Completed: patient identified, site marked, consent, pre-op evaluation, timeout performed, IV checked, risks and benefits discussed and monitors and equipment checked Procedure Information Patient Position: Supine Prep: Chloraprep Patient Monitoring: blood pressure, continuous pulse ox, ECG/EKG and heart rate Block Type: Fascia Iliaca Laterality: right Injection Technique: single-shot Procedures: ultrasound guided Draping: sterile technique maintained Needle Needle Gauge: 22 G Needle Length: 3 1/8 in (3 in) Needle Localization: anatomical landmarks and ultrasound guidance Test Dose: negative Local Volume: 50 mL Needle Attempts: 1 Assessment Injection Assessment: incremental injection, negative aspiration for heme, no apparent complications, no paresthesia on injection, paresthesia absent, ultrasound image saved and well tolerated Heart rate change: no Additional Notes Risks explained: difficult placement, may be ineffective, bleeding, infection, nerve damage. Benefits explained to patient: may lower sedation and/or general anesthetic dose, possibly less pain after procedure.Timeout performed including patients name, date, and laterality. Patient participated in the timeout. Antiseptic prep. Sterile probe cover applied. Identified Femoral artery and vein in Femoral crease right side. ??Needle and artery identified. 50 mls of 0.5% Ropi with epi. Dispersed below, medial, and lateral to femoral artery as well as above medial and lateral to femoral vein. Injected in 5 ml increments. ?? Injected local as indicated with multiple negative aspirations. Patient tolerated procedure well. Aki Wallis PROJECT PLANNER FL ANESTHESIA Final Res ult documented in this encounter Visit Diagnoses Not on filedocumented in this encounter Administered Medications Inactive Administered Medications - up to 3 most recent administrations Medication Order MAR Action Action Date Dose Rate Site BUpivacaine 0.75% in dextrose 8.25% (intrathecal) (SENSORCAINE) 0.75-8.25 % injection Intrathecal, PRN, Starting on Thu11/19/20 at 0943, Until Thu11/19/20 at 1215, Anesthesia Intra-Op Given 11/19/2020 9:43 AM ORDER CONTROL CLERK BLOOD BANK 2 mLs ceFAZolin (ANCEF) 3 g in NS 100 mL IVPB 3 g, Intravenous, at 200 mL/hr, housecalls nurse, 1 dose, On Thu11/19/20 at 0830, Give 3 gram dose for patients 120 kg and greater. Give within 60 minutes of surgical incision., Pre-Op Given 11/19/2020 9:25 AM ORDER CONTROL CLERK BLOOD BANK 3 g dexamethasone (DECADRON) injection Intravenous, PRN, Starting on Thu11/19/20 at 0944, Until Thu11/19/20 at 1215, Anesthesia Intra-Op Given 11/19/2020 9:44 AM ORDER CONTROL CLERK BLOOD BANK 8 mg fentaNYL (SUBLIMAZE) injection Intravenous, PRN, Starting on Thu11/19/20 at 0842, Until Thu11/19/20 at 1215, Anesthesia Intra-Op Given 11/19/2020 8:42 AM ORDER CONTROL CLERK BLOOD BANK 100 mcg HYDROmorphone (DILAUDID) injection PRN, Starting on Thu11/19/20 at 1109, Until Thu11/19/20 at 1215, Anesthesia Intra-Op Given 11/19/2020 11:10 AM ORDER CONTROL CLERK BLOOD BANK 0.5 mg Given 11/19/2020 11:09 AM ORDER CONTROL CLERK BLOOD BANK 0.5 mg ketamine (KETALAR) injection PRN, Starting on Thu11/19/20 at 0945, Until Thu11/19/20 at 1215, Anesthesia Intra-Op Given 11/19/2020 10:41 AM ORDER CONTROL CLERK BLOOD BANK 50 mg Given 11/19/2020 10:09 AM ORDER CONTROL CLERK BLOOD BANK 25 mg Given 11/19/2020 10:03 AM ORDER CONTROL CLERK BLOOD BANK 25 mg lactated ringers infusion at 10 mL/hr, Intravenous, Continuous, Starting on Thu11/19/20 at 0830, Until Thu11/20/20 at 0731, Infuse at TKO rate, Pre-Op New Bag 11/19/2020 10:38 AM ORDER CONTROL CLERK BLOOD BANK New Bag 11/19/2020 8:27 AM ORDER CONTROL CLERK BLOOD BANK 10 mL/hr metoclopramide (REGLAN) injection Intravenous, PRN, Starting on Thu11/19/20 at 0933, Until Thu11/19/20 at 1215, Anesthesia Intra-Op Given 11/19/2020 9:33 AM ORDER CONTROL CLERK BLOOD BANK 10 mg midazolam (VERSED) injection Intravenous, PRN, Starting on Thu11/19/20 at 0842, Until Thu11/19/20 at 1215, Anesthesia Intra-Op Given 11/19/2020 8:42 AM ORDER CONTROL CLERK BLOOD BANK 2 mg morphine (PF) (ASTRAMORPH) injection PRN, Starting on Thu11/19/20 at 0943, Until Thu11/19/20 at 1215, Anesthesia Intra-Op Given 11/19/2020 9:43 AM ORDER CONTROL CLERK BLOOD BANK 0.2 mcg ondansetron (ZOFRAN) injection Intravenous, PRN, Starting on Thu11/19/20 at 0925, Until Thu11/19/20 at 1215, Anesthesia Intra-Op Given 11/19/2020 9:33 AM ORDER CONTROL CLERK BLOOD BANK 8 mg Given 11/19/2020 9:25 AM ORDER CONTROL CLERK BLOOD BANK 4 mg phenylephrine (JENNIFFER-SYNEPHRINE) injection Intravenous, Continuous PRN, Starting on Thu11/19/20 at 0948, Until Thu11/19/20 at 1215, Anesthesia Intra-Op Rate/Dose Change 11/19/2020 10:51 AM ORDER CONTROL CLERK BLOOD BANK 100 mcg/min 0.6 mL/hr Rate/Dose Change 11/19/2020 10:31 AM ORDER CONTROL CLERK BLOOD BANK 130 mcg/min 0.78 mL/hr Rate/Dose Change 11/19/2020 10:00 AM ORDER CONTROL CLERK BLOOD BANK 150 mcg/min 0.9 m L/hr propofol (DIPRIVAN) IV bolus Intravenous, Continuous PRN, Starting on Thu11/19/20 at 0925, Until Thu11/19/20 at 1215, Anesthesia Intra-Op Rate/Dose Change 11/19/2020 10:44 AM ORDER CONTROL CLERK BLOOD BANK 30 mcg/kg/min 23.3 mL/hr Rate/Dose Change 11/19/2020 10:24 AM ORDER CONTROL CLERK BLOOD BANK 25 mcg/kg/min 19. 4 mL/hr Rate/Dose Change 11/19/2020 10:16 AM ORDER CONTROL CLERK BLOOD BANK 35 mcg/kg/min 27. 2 mL/hr ROpivacaine 0.5%-EPINEPHrine 1:200,000 injection PRN, Starting on Thu11/19/20 at 0848, Until Thu11/19/20 at 1215, Anesthesia Intra-Op Given 11/19/2020 8:48 AM ORDER CONTROL CLERK BLOOD BANK 50 m Ls tranexamic acid (CYKLOKAPRON) injection 1,000 mg 1,000 mg, Intravenous, Once, 1 dose, On Thu11/19/20 at 0830, PHARMACIST TO ADJUST dose based on SCr (SCr less than 1.6 = 1,000 mg; SCr 1.6-3.3 = 750 mg; SCr 3.4-6.6 = 500 mg; SCr greater than 6.6 = 250 mg). Administer dose over 15 minutes prior to incision., Pre-Op Given 11/19/2020 9:36 AM ORDER CONTROL CLERK BLOOD BANK 1,000 mg documented in this encounter Care Teams Technical Report Writer Relationship Specialty Start Date End Date Sebastien Sequeira MD [address] [place] [address] PCP - General INTERNAL MEDICINE 08/02/20 documented as of this encounter
--- OUTSIDE RECORDS SUMMARY | 2024-09-13 06:34 | XMS_ITS | Encounter Summary ---
Author Organization [facility] Address [address] [place] [address]. [place] [address] [place] [address] Care Team Providers Care Associate Partner Name Role Phone Sebastien Sequeira MD Primary Care Provider [phone] Reason for Visit * Reason Comments Therapy Report (SCAN) Encounter Details Date Type Department Care Team (Late st Contact Info) Description 11/26/2020 Scan [facility] Information Services [address] [place] [address] Scanned, Documents Therapy Report (SCAN) Social History [...] Assessment Author Status No 11/19/2020 1:16 PM MANAGER VALUATION Activ e * RETIRED Are you blind or do you have serious difficulty seeing, even when wearing glasses? Answer Date of Assessment Author Status No 11/19/2020 1:16 PM MANAGER VALUATION Activ e * Do you have serious difficulty walking or climbing stairs? Answer Date of Assessment Author Status Yes 11/19/2020 1:16 PM MANAGER VALUATION Nory Whitaker R N Active * Do you have difficulty dressing or bathing? Answer Date of Assessment Author Status No 11/19/2020 1:16 PM MANAGER VALUATION Nory Whitaker R N Active * Because of a physical, mental, or emotional condition, do you have difficulty doing errands alone such as visiting a doctor's office or shopping? Answer Date of Assessment Author Status No 11/19/2020 1:16 PM MANAGER VALUATION Nory Whitaker R N Active documented as of this encounter Mental Status * Because of a physical, mental, or emotional condition, do you have serious difficulty concentrating, remembering, or making decisions? Answer Entry Date Author Status No 11/19/2020 1:16 PM MANAGER VALUATION Nory Whitaker R N Active documented in [...] on filedocumented in this encounter Care Teams Associate Partner Relationship Specialty Start Date End Date Sebastien Sequeira MD [address] [place] [address] PCP - General INTERNAL MEDICINE 08/02/20 documented as of this encounter
--- OUTSIDE RECORDS SUMMARY | 2024-09-13 06:34 | XMS_ITS | Encounter Summary ---
Author Organization [facility] Address Critical access hospital6 [facility] [place] [address] [place] [address] Care Team Providers Care Manager Biostatistics Name Role Phone Sebastien Sequeira MD Primary Care Provider Encounter Details Date Type Department Care Team (Latest Contact Info) Description 02/19/2021 8:58 AM CDT - 02/19/2021 11:59 PM CDT Hospital Encounter Formerly [facility] [address] [place] [address] Gustavo So MD [address] [place] [address] Discharge Disposition: Home or Self [...] Assessment Author Status No 11/19/2020 1:16 PM LEATHER CARVER Activ e * RETIRED Are you blind or do you have serious difficulty seeing, even when wearing glasses? Answer Date of Assessment Author Status No 11/19/2020 1:16 PM LEATHER CARVER Activ e * Do you have serious [...] Date/Time Associated Diagnosis Comments XR SHOULDER RT 3V Routine 02/19/2021 9:2 9 AM CDT Chronic right shoulder pain XR PELVIS AP+RT HIP 1V Routine 02/19/2021 9:29 AM CDT Status post right hip replacement documented [...] By: Casey Gonzalez MD, 02/19/2021 4:12 PM us Gustavo So MD GENERAL IMAGING Final Result * XR PELVIS AP+RT HIP 1V (02/19/2021 9:29 AM CDT) Anatomical Region Laterality Modality Pelvis, Hip Radiographic Charlotte ging 02/19/2021 6:10 PM CDT Impressions 02/19/2021 6:11 PM CDT IMPRESSION: 1) Stable appearance of the right hip prosthesis with no malalignment or acute bony abnormalities. Unchanged left hip prosthesis. Referred By: GUSTAVO SO Interpreted By: Rafy Louis MD, 02/19/2021 6:10 PM Narrative 02/19/2021 6:11 PM CDT Examination: XR PELVIS AP+RT HIP 1V Exam time: 02/19/2021 9:29 AM Clinical history: Follow-up of the right hip replacement. Comparison: Comparison made to 01/16/2021 Technique: Single view pelvis weightbearing radiograph and one view right hip. Findings: Again noted are postoperative changes of right hip replacement. The position of the prosthesis is stable with no acute bony abnormalities or loosening. In the left hip there is also unchanged appearance of hemiarthroplasty. No acute bony abnormalities. Surrounding soft tissues are unremarkable. Procedure Note Rafy Louis MD - 02/19/2021 Examination: XR PELVIS AP+RT HIP 1V Exam time: 02/19/2021 9:29 AM Clinical history: Follow-up of the right hip replacement. Comparison: Comparison made to 01/16/2021 Technique: Single view pelvis weightbearing radiograph and one view righthip. Findings: Again noted are postoperative changes of right hip replacement.The position of the prosthesis is stable with no acute bony abnormalitiesor loosening. In the left hip there is also unchanged appearance ofhemiarthroplasty. No acute bony abnormalities. Surrounding soft tissuesare unremarkable. IMPRESSION: 1) Stable appearance of the right hip prosthesis with no malalignment oracute bony abnormalities. Unchanged left hip prosthesis. Referred By: GUSTAVO SO Interpreted By: Rafy Louis MD, 02/19/2021 6:10 PM Gustavo So MD GENERAL IMAGING Final Result documented in this encounter Visit Diagnoses Diagnosis Status post right hip replacement Hip joint replacement by other means Chronic right shoulder pain Pain in joint, shoulder region documented in this encounter Care Teams Manager Biostatistics Relationship Specialty Start Date End Date Sebastien Sequeira MD [address] [place] [id number] PCP - General INTERNAL MEDICINE 08/02/20 documented as of this encounter
--- OUTSIDE RECORDS SUMMARY | 2024-09-13 06:34 | XMS_ITS | Encounter Summary ---
Author Organization [facility] Address [address] [place] [address]. [place] [address] [place] [address] Care Team Providers Care Semi Driver Name Role Phone Sebastien Sequeira MD Primary Care Provider [phone] Encounter Details Date Type Department Care Team (Late st Contact Info) Description 05/29/[address] [facility] [address], [place] [id number] Minerva Hendrickson, RN Social History Tobacco Use Types Packs/Day [...] Assessment Author Status No 11/19/2020 1:16 PM INFANT CHILDCARE PROVIDER Activ e * RETIRED Are you blind or do you have serious difficulty seeing, even when wearing glasses? Answer Date of Assessment Author Status No 11/19/2020 1:16 PM INFANT CHILDCARE PROVIDER Activ e * Do you have serious difficulty walking or climbing stairs? Answer Date of Assessment Author Status Yes 11/19/2020 1:16 PM INFANT CHILDCARE PROVIDER Nory Whitaker R N Active * Do you have difficulty dressing or bathing? Answer Date of Assessment Author Status No 11/19/2020 1:16 PM INFANT CHILDCARE PROVIDER Nory Whitaker R N Active * Because of a physical, mental, or emotional condition, do you have difficulty doing errands alone such as visiting a doctor's office or shopping? Answer Date of Assessment Author Status No 11/19/2020 1:16 PM INFANT CHILDCARE PROVIDER Nory Whitaker R N Active documented as [...] documented as of this encounter Results * CORONAVIRUS (COVID 19) (06/21/2021 9:00 AM CDT) SPEC DESCRIPTION NASAL 06/21/20 21 8:45 AM CDT [facility] CORONAVIRUS SARS COV 2 PCR (RESP) NEGATIVE NEGATIVE 06/21/2021 7:18 PM CDT [facility] Comment: THE SARS-CoV-2 TEST HAS BEEN AUTHORIZED BY THE FDA UNDER AN EUA FOR USE BY AUTHORIZED LABORATORIES. PERFORMED BY NUCLEIC ACID AMPLIFICATION PCR FIRST TEST UNKNOWN 06/21/2021 8:45 AM CDT [facility] EMPLOYED IN HEALTHCARE NO 06/21/2021 8:45 AM CDT [facility] SYMPTOMATIC DEFINED BY CDC NO 06/21/2021 8:45 AM CDT [facility] HOSPITALIZATION STATUS NO 06/21/2021 8:45 AM CDT [facility] PATIENT IN ICU NO 06/21/2021 8:45 AM CDT [facility] RESIDENT OF [facility] NO 06/21/2021 8:45 AM CDT [facility] NASAL STRUCTURE / Unknown 06/21/2021 9:00 AM CDT us Gustavo So MD MICROBIOLOGY - GENERAL ORDERAB LES Final Result [facility] [address] [place] [address], [facility] [address] [place] [address], * ECG 12 lead (06/12/2021 10:09 AM CDT) 06/12/2021 10:0 9 AM CDT Narrative [facility] - 06/12/2021 12:47 PM CDT ? [facility] ?[address] [facility] [place], [place] ??[address] ? Test Date: ?2021-06-12 Pat Name: ? KEEGAN MILLS ? Department: ? Room: ? Gender: ? Female ? Chest Painting And Sealing Supervisor: ?? : ?1950 ? Requested By: GUSTAVO SO Order Number: [id number] ? Reading : ?? Timoteo Saucedo ? Measurements Intervals ?Tully ? Rate: ? 80 ? P: ?38 AK: ? 197 ?QRS: ?2 QRSD: ? 109 ?T: ?68 QT: ? 371 ? QTc: ?430 ? Interpretive Statements SINUS RHYTHM WITH OCCASIONAL ECTOPIC PREMATURE COMPLEXES Procedure Note Timoteo Saucedo MD - 06/12/[address] [place] [address] Test Date: 2021-06-12 Pat Name: KEEGAN MILLS Department: Room: Gender: Female Chest Painting And Sealing Supervisor: : 1950 Requested By: GUSTAVO SO Order Number: [id number] Reading MD: Timoteo Saucedo Measurements Intervals Tully Rate: 80 P: 38 AK: 197 QRS: 2 QRSD: 109 T: 68 QT: 371 QTc: 430 Interpretive Statements SINUS RHYTHM WITH OCCASIONAL ECTOPIC PREMATURE COMPLEXES us Gustavo So MD ECG ORDERABLES Final Result Performing Organization Address City/State/[facility] Co de Phone Number [facility] documented in this encounter Visit Diagnoses Diagnosis Hypertension, unspecified type- Primary Pre-operative laboratory examination Pre-procedural laboratory examination Hypertension, unspecified type documented in this encounter Care Teams Semi Driver Relationship Specialty Start Date End Date Sebastien Sequeira MD [address] [place] [phone] PCP - General INTERNAL MEDICINE 08/02/20 documented as of this encounter
--- OUTSIDE RECORDS SUMMARY | 2024-09-13 06:34 | XMS_ITS | Encounter Summary ---
Author Organization [facility] Address [facility] [place] [address] [place] [address] Care Team Providers Care Transformer Coil Winder Name Role Phone Sebastien Sequeira MD Primary Care Provider [phone] Reason for Referral * Imaging (Urgent) - Closed Specialty Diagnoses / Procedures Referred By Contac t Referred To Contact RADIOLOGY Diagnoses Lumbar radiculopathy Procedures MRI LUMB SPINE WO CON Ad Interiano III, MD Phone: tel: fax: Referral ID Status Reason Start Date Expiration Date Visits Re quested Visits Authorized [id number] Closed 01/08/2021 02/07/2022 1 1 Reason for Visit * Imaging (Urgent) - Closed Specialty Diagnoses / Procedures Referred By Contac t Referred To Contact RADIOLOGY Diagnoses Lumbar radiculopathy Procedures MRI LUMB SPINE WO CON Ad Interiano III, MD Phone: tel: fax: Referral ID Status Reason Start Date Expiration Date Visits Re quested Visits Authorized [id number] Closed 01/08/2021 02/07/2022 1 1 Encounter Details Date Type Department Care Team (Latest Contact Info) Description 01/10/2021 7:47 AM CDT - 01/10/2021 11:59 PM CDT Hospital Encounter [facility] [address] [address] [place] [address] Ad Interiano III, MD [address] [place] [phone] Discharge Disposition: Home or Self Care (Routine [...] Assessment Author Status No 11/19/2020 1:16 PM AERIAL PHOTOGRAPHER Activ e * RETIRED Are you blind or do you have serious difficulty seeing, even when wearing glasses? Answer Date of Assessment Author Status No 11/19/2020 1:16 PM AERIAL PHOTOGRAPHER Activ e * Do you have serious difficulty walking or climbing stairs? Answer Date of Assessment Author Status Yes 11/19/2020 1:16 PM AERIAL PHOTOGRAPHER Nory Whitaker R N Active * Do you have difficulty dressing or bathing? Answer Date of Assessment Author Status No 11/19/2020 1:16 PM AERIAL PHOTOGRAPHER Nory Whitaker R N Active * Because of a physical, mental, or emotional condition, do you have difficulty doing errands alone such as visiting a doctor's office or shopping? Answer Date of Assessment Author Status No 11/19/2020 1:16 PM AERIAL PHOTOGRAPHER Nory Whitaker R N Active documented as [...] Diagnosis Comments MRI LUMB SPINE WO CON LUCIO 01/10/2021 8:46 AM CDT Lumbar radiculopathy documented in this encounter Results * MRI LUMB SPINE WO CON (01/10/2021 8:46 AM CDT) Anatomical Region Laterality Modality Spine Magnetic Resonan ce 01/10/2021 8:50 AM CDT Impressions 01/10/2021 8:56 AM CDT Impression: 1. No acute osseous abnormality such as vertebral body compression fracture. 2. Multilevel degenerative disc disease, facet arthropathy with stenoses. Please see the body of the report for details. Referred By: AD INTERIANO III Interpreted By: Prince Muñoz Jr, MD, 01/10/2021 8:50 AM Narrative 01/10/2021 8:56 AM CDT Date: 01/10/2021 8:46 AM Exam: MRI LUMB SPINE WO CON Comparison: MRI lumbar spine dated 12/10/2020. Technique: Multiplanar unenhanced sequencing was obtained with an MRI lumbar spine protocol. History: Lumbar radiculopathy. Fell 10 days ago. Findings: There is straightening of the lumbar lordosis. There is dextroscoliosis in the lumbar spine. There are no vertebral body compression fractures nor gross subluxations. There are scattered vertebral body hemangiomas throughout the lumbar spine, stable. The bone marrow signal intensity appears normal without infiltrative disorder. The conus medullaris is at L1. The cauda equina appears normal. Partially visualized are T2 hyperintense lesions in the left kidney likely cysts. The largest probable cyst measures 4.5 cm. T12-L1: Mild to moderate facet arthropathy. No disc pathology. No stenoses. L1-2: Moderate facet arthropathy. Mild posterior disc bulge. Minimal central spinal canal stenosis. Grossly patent neural foramina. L2-3: Moderate facet arthropathy. Minimal posterior bulge. No gross stenoses. L3-4: Moderate to advanced facet arthropathy. Posterior disc bulge. Moderate central spinal canal stenosis. Minimal right neural foraminal stenosis. Mild to early moderate left neural foraminal stenosis. L4-5: Moderate to advanced facet arthropathy. Posterior disc bulge. The disc bulge abuts the L5 nerve roots within the anterior thecal sac although there is no gross central spinal canal stenosis. There is disc encroachment into the right neural foramen with moderate stenosis. The left neural foramen is patent. L5-S1: Moderate facet arthropathy. Right posterolateral disc bulge. No central spinal canal stenosis nor left neural foraminal stenosis. Moderate right neural foraminal stenosis. Procedure Note Prince Muñoz MD - 01/10/2021 Date: 01/10/2021 8:46 AM Exam: MRI LUMB SPINE WO CON Comparison: MRI lumbar spine dated 12/10/2020. Technique: Multiplanar unenhanced sequencing was obtained with an MRI lumbar spine protocol. History: Lumbar radiculopathy. Fell 10 days ago. Findings: There is straightening of the lumbar lordosis. There is dextroscoliosis in the lumbar spine. There are no vertebral body compression fractures nor gross subluxations. There are scatteredvertebral body hemangiomas throughout the lumbar spine, stable. The bone marrow signal intensity appears normal without infiltrative disorder. The conus medullaris is at L1. The cauda equina appears normal. Partiallyvisualized are T2 hyperintense lesions in the left kidney likely cysts. The largest probable cyst measures 4.5 cm. T12-L1: Mild to moderate facet arthropathy. No disc pathology. Nostenoses. L1-2: Moderate facet arthropathy. Mild posterior disc bulge. Minimal central spinal canal stenosis. Grossly patent neural foramina. L2-3: Moderate facet arthropathy. Minimal posterior bulge. No gross stenoses. L3-4: Moderate to advanced facet arthropathy. Posterior disc bulge. Moderate central spinal canal stenosis. Minimal right neural foraminal stenosis. Mild to early moderate left neural foraminal stenosis. L4-5: Moderate to advanced facet arthropathy. Posterior disc bulge. The disc bulge abuts the L5 nerve roots within the anterior thecal sacalthough there is no gross central spinal canal stenosis. There is discencroachment into the right neural foramen with moderate stenosis. The left neural foramen is patent. L5-S1: Moderate facet arthropathy. Right posterolateral disc bulge. No central spinal canal stenosis nor left neural foraminal stenosis.Moderate right neural foraminal stenosis. Impression: 1. No acute osseous abnormality such as vertebral body compression fracture. 2. Multilevel degenerative disc disease, facet arthropathy withstenoses. Please see the body of the report for details. Referred By: AD INTERIANO III Interpreted By: Prince Muñoz Jr, MD, 01/10/2021 8:50 AM us Ad Interiano III, MD MRI Final Res ult documented in this encounter Visit Diagnoses Diagnosis Lumbar radiculopathy Thoracic or lumbosacral neuritis or radiculitis, unspecified documented in this encounter Care Teams Transformer Coil Winder Relationship Specialty Start Date End Date Sebastien Sequeira MD [address] [place] [address] PCP - General INTERNAL MEDICINE 08/02/20 documented as of this encounter
--- OUTSIDE RECORDS SUMMARY | 2024-09-13 06:34 | XMS_ITS | Encounter Summary ---
Author Organization [facility] Address [facility] [place] [address] [place] [address] Care Team Providers Care Instructor Wastewater Treatment Plant Name Role Phone Sebastien Sequeira MD Primary Care Provider [phone] Encounter Details Date Type Department Care Team (Latest Contact Info) Description 11/19/2020 Travel Social History Tobacco Use Types Packs/Day [...] COVID-19? No / Unsure 11/19/2020 8:08 AM STAPLE FIBER WASHER documented as of this encounter Functional [...] Assessment Author Status No 11/19/2020 1:16 PM STAPLE FIBER WASHER Activ e * RETIRED Are you blind or do you have serious difficulty seeing, even when wearing glasses? Answer Date of Assessment Author Status No 11/19/2020 1:16 PM STAPLE FIBER WASHER Activ e * Do you have serious [...] on filedocumented in this encounter Care Teams Instructor Wastewater Treatment Plant Relationship Specialty Start Date End Date Sebastien Sequeira MD [address] [place] [address] PCP - General INTERNAL MEDICINE 08/02/20 documented as of this encounter
--- OUTSIDE RECORDS SUMMARY | 2024-09-13 06:34 | XMS_ITS | Encounter Summary ---
Author Organization [facility] Address [address] [place] [address]. [place] [address] [place] [address] Care Team Providers Care Health Insurance Agent Name Role Phone Sebastien Sequeira MD Primary Care Provider [phone] Reason for Visit * Reason Comments Follow Up Lumbar Spine Encounter Details Date Type Department Care Team (Latest Contact Info) Description 01/11/2021 8:25 AM CDT Office Visit [place] [id number] Ad Davis III, MD [address] [place] [address] Follow Up (Lumbar Spine) Social [...] Assessment Author Status No 11/19/2020 1:16 PM WEBSPHERE COMMERCE CONSULTANT Activ e * RETIRED Are you blind or do you have serious difficulty seeing, even when wearing glasses? Answer Date of Assessment Author Status No 11/19/2020 1:16 PM WEBSPHERE COMMERCE CONSULTANT Activ e * Do you have serious difficulty walking or climbing stairs? Answer Date of Assessment Author Status Yes 11/19/2020 1:16 PM WEBSPHERE COMMERCE CONSULTANT Nory Whitaker R N Active * Do you have difficulty dressing or bathing? Answer Date of Assessment Author Status No 11/19/2020 1:16 PM WEBSPHERE COMMERCE CONSULTANT Nory Whitaker R N Active * Because of a physical, mental, or emotional condition, do you have difficulty doing errands alone such as visiting a doctor's office or shopping? Answer Date of Assessment Author Status No 11/19/2020 1:16 PM WEBSPHERE COMMERCE CONSULTANT Nory Whitaker R N Active documented as of this encounter Mental Status * Because of a physical, mental, or emotional condition, do you have serious difficulty concentrating, remembering, or making decisions? Answer Entry Date Author Status No 11/19/2020 1:16 PM WEBSPHERE COMMERCE CONSULTANT Nory Whitaker R N Active documented in this encounter Progress Notes * Aissatou Cline CNA - 01/11/2021 8:25 AM CDT See Filter Plant Operator for Dr. Davis's progress note. documented in [...] unspecified documented in this encounter Care Teams Health Insurance Agent Relationship Specialty Start Date End Date Sebastien Sequeira MD [address] [place] [address] PCP - General INTERNAL MEDICINE 08/02/20 documented as of this encounter
--- OUTSIDE RECORDS SUMMARY | 2024-09-13 06:34 | XMS_ITS | Encounter Summary ---
Author Organization [facility] Address [address] [place] [address]. [place] [address] [place] [address] Care Team Providers Care Electric Motor Repairer Name Role Phone Sebastien Sequeira MD Primary Care Provider [phone] Reason for Visit * Reason Comments Postop Followup DOS 11/19/2020 right total hip Encounter Details Date Type Department Care Team (Late st Contact Info) Description 01/02/2021 2:00 PM CDT Office Visit [facility] [address], [address] [address] Adele Garcia, INFORMATION SUPPORT PROJECT MANAGER- [address] [place] [address] [place] [address] Gustavo So MD [address] [place] [address] Postop Followup (DOS 11/19/2020 right total hip ) Social History Tobacco Use Types Packs/Day [...] - - Weight 131.5 kg (290 lb) 01/02/2021 2:11 PM CDT Height 177.8 cm (5' 10 ) 01/02/2021 2:11 PM CDT Body Mass Index 41.61 01/02/2021 2:11 PM CDT documented in this encounter Functional Status * RETIRED Are you deaf or do you have serious difficulty hearing Answer Date of Assessment Author Status No 11/19/2020 1:16 PM CONFECTIONERY DROPS MACHINE OPERATOR Activ e * RETIRED Are you blind or do you have serious difficulty seeing, even when wearing glasses? Answer Date of Assessment Author Status No 11/19/2020 1:16 PM CONFECTIONERY DROPS MACHINE OPERATOR Activ e * Do you have serious difficulty walking or climbing stairs? Answer Date of Assessment Author Status Yes 11/19/2020 1:16 PM CONFECTIONERY DROPS MACHINE OPERATOR Nory Whitaker R N Active * Do you have difficulty dressing or bathing? Answer Date of Assessment Author Status No 11/19/2020 1:16 PM CONFECTIONERY DROPS MACHINE OPERATOR Nory Whitaker R N Active * Because of a physical, mental, or emotional condition, do you have difficulty doing errands alone such as visiting a doctor's office or shopping? Answer Date of Assessment Author Status No 11/19/2020 1:16 PM CONFECTIONERY DROPS MACHINE OPERATOR Nory Whitaker R N Active documented as of this encounter Mental Status * Because of a physical, mental, or emotional condition, do you have serious difficulty concentrating, remembering, or making decisions? Answer Entry Date Author Status No 11/19/2020 1:16 PM CONFECTIONERY DROPS MACHINE OPERATOR Nory Whitaker R N Active documented in this encounter Progress Notes * Gustavo So MD - 01/02/2021 2:00 PM CDT Chief Complaint: Postop Followup (DOS 11/19/2020 right total hip ) History of Present Illness: Gilma Mills is a 70-year-old female who presents to the office for Postop Followup (DOS 11/19/2020 right total hip ) Patient is here today because our office received a phone call from physical therapy this morning stating that patient had fallen on her RIGHT hip yesterday and was having increased pain. Patient states that the fall happened Thursday when she slid out of a chair at the doctor's office landing on herRIGHT hip. She continues to have pain that has worsened over the past several days. She locates thepain in her RIGHT groin and also posteriorly in her RIGHT hip. She states that the pain will radiate down her RIGHT thigh. She is having difficulty raising her RIGHT leg. Patient is currently taking Lyrica and oxycodone for pain relief. She ambulates with the assistance of a cane. ROS: [...] file Gets together: Not on file Attends protestant service: Not on file Active member of [...] on file Medications: Current Outpatient Medications: ??? ALPRAZolam 0.25 MG tablet, Take 1 tablet by mouth every 8 (eight) hours as needed., Disp: , Rfl: ??? busPIRone 15 MG tablet, Take 1 [...] index is 41.61 kg/m??. Last Recorded Weight 01/02/21 1411 Weight: 131.5 kg (290 lb) Physical exam: Constitutional: Alert and in no acute distress. Neurological: The patient was oriented to person, place, and time. Eyes: The sclera and conjunctiva were normal ENT: Hearing was normal. Neck: The appearance of the neck was normal. Cardiovascular: Normal pulses. Pulmonary: No respiratory distress. Skin: No injuries or skin lesion. Musculoskeletal: Patient has weakness with hip flexion and indicates pain with rotation. She is still using a cane but symptoms are pretty significant. Tenderness is present with soft tissue palpation Results: X-ray was reviewed and I do not see any acute bony injury. Her hip implants are in good position and appear stable Assessment: Encounter Diagnose(s) ICD-10-CM ICD-9-CM SNOMED CT(R) 1. Status post right hip replacement Z96.641 V43.64 HISTORY OF REPAIR OF HIP JOINT Plan: Patient has had increasing symptoms after she slipped out of a chair falling on the floor. I recommended that she return back to the walker and she will continue with physical therapy. I will see riddhi in a month Follow up: Return in about 4 weeks (around 01/30/2021). GUSTAVO SO MD documented in this encounter [...] means documented in this encounter Care Teams Electric Motor Repairer Relationship Specialty Start Date End Date Sebastien Sequeira MD [address] [place] [address] PCP - General INTERNAL MEDICINE 08/02/20 documented as of this encounter
--- OUTSIDE RECORDS SUMMARY | 2024-09-13 06:34 | XMS_ITS | Encounter Summary ---
Author Organization [facility] Address [facility] [place] [address] [place] [address] Care Team Providers Care Heating Systems Installer Name Role Phone Sebastien Sequeira MD Primary Care Provider [phone] Encounter Details Date Type Department Care Team (Latest Contact Info) Description 02/08/2021 Travel Social History Tobacco Use Types Packs/Day [...] Assessment Author Status No 11/19/2020 1:16 PM SPIDER ASSEMBLER Activ e * RETIRED Are you blind or do you have serious difficulty seeing, even when wearing glasses? Answer Date of Assessment Author Status No 11/19/2020 1:16 PM SPIDER ASSEMBLER Activ e * Do you have serious [...] on filedocumented in this encounter Care Teams Heating Systems Installer Relationship Specialty Start Date End Date Sebastien Sequeira MD [address] [place] [phone] PCP - General INTERNAL MEDICINE 08/02/20 documented as of this encounter
--- OUTSIDE RECORDS SUMMARY | 2024-09-13 06:34 | XMS_ITS | Encounter Summary ---
Author Organization [facility] Address [facility] [place] [address] [place] [address] Care Team Providers Care Android Programmer Name Role Phone Sebastien Sequeira MD Primary Care Provider [phone] Encounter Details Date Type Department Care Team (Latest Contact Info) Description 12/26/2020 2:35 PM CDT - 12/26/2020 11:59 PM CDT Hospital Encounter [facility] [address] [place] [address] Gustavo So MD [address] [place] [address] Discharge Disposition: Home or Self [...] Assessment Author Status No 11/19/2020 1:16 PM GRADER MARKER Activ e * RETIRED Are you blind or do you have serious difficulty seeing, even when wearing glasses? Answer Date of Assessment Author Status No 11/19/2020 1:16 PM GRADER MARKER Activ e * Do you have serious [...] total) by mouth as needed. 01/14/2020 3 oxyCODONE-acetaminop hen 5-325 MG tabletIndications:Ch ronic Pain Take 1 tablet by mouth every 4 (four) hours as needed. Indications: Chronic Pain 30 tablet 11/30/2020 1 oxyCODONE-acetaminop hen 5-325 MG tabletIndications:Ch ronic Pain Take 1 tablet by mouth every 4 (four) hours as needed. Indications: Chronic Pain 30 tablet 12/26/2020 1 pregabalin (LYRICA) 100 MG capsule Take 2 capsules by mouth 2 (two) times a day. 02/09/2014 1 pregabalin 200 MG capsule Take 200 mg [...] Comments XR PELVIS AP+RT HIP 1V Routine 12/26/2020 2:46 PM CDT Status post right hip replacement [...] By: Rafy Louis MD, 12/26/2020 6:46 PM us Gustavo So MD GENERAL IMAGING Final Result documented in this encounter Visit Diagnoses Diagnosis Status post right hip replacement Hip joint replacement by other means documented in this encounter Care Teams Android Programmer Relationship Specialty Start Date End Date Sebastien Sequeira MD [address] [place] [address] PCP - General INTERNAL MEDICINE 08/02/20 documented as of this encounter
--- OUTSIDE RECORDS SUMMARY | 2024-09-13 06:34 | XMS_ITS | Encounter Summary ---
Author Organization [facility] Address [facility] [place] [address] [place] [address] Care Team Providers Care Industrial Engineering Technician Name Role Phone Sebastien Sequeira MD Primary Care Provider [phone] Reason for Referral * Consultation (Routine) - Closed Specialty Diagnoses / Procedures Referred By Contdennis t Referred To Contact NEUROLOGY Diagnoses Lumbar disc herniation Gustavo So MD [address] [place] [address] Phone: tel: fax: Referral ID Status Reason Start Date Expiration Date V isits Requested Visits Authorized [id number] Closed Specialty Services 12/12/2020 01/11/20[address] Davis - L3 & L4 Reason for Visit * Reason Comments MRI Results Lumbar Spine Lumbar Pain Lumbar radiculopathy Encounter Details Date Type Department Care Team (Latest Contact Info) Description 12/12/2020 4:30 PM CDT Office Visit [facility] [address] [address] Gustavo So MD [address] [place] [address] MRI Results (Lumbar Spine); Lumbar Pain (Lumbar radiculopathy) Social History Tobacco Use Types Packs/Day Years [...] - - Weight 131.5 kg (290 lb) 12/12/2020 4:26 PM CDT Height 177.8 cm (5' 10 ) 12/12/2020 4:26 PM CDT Body Mass Index 41.61 12/12/2020 4:26 PM CDT documented in this encounter Functional Status * RETIRED Are you deaf or do you have serious difficulty hearing Answer Date of Assessment Author Status No 11/19/2020 1:16 PM DIRECTOR SELECTION AND ADMINISTRATION Activ e * RETIRED Are you blind or do you have serious difficulty seeing, even when wearing glasses? Answer Date of Assessment Author Status No 11/19/2020 1:16 PM DIRECTOR SELECTION AND ADMINISTRATION Activ e * Do you have serious difficulty walking or climbing stairs? Answer Date of Assessment Author Status Yes 11/19/2020 1:16 PM DIRECTOR SELECTION AND ADMINISTRATION Nory Whitaker R N Active * Do you have difficulty dressing or bathing? Answer Date of Assessment Author Status No 11/19/2020 1:16 PM DIRECTOR SELECTION AND ADMINISTRATION Nory Whitaker R N Active * Because [...] in this encounter Progress Notes * Minerva Rooney RN - 12/12/2020 4:30 PM CDTAddended by: MINERVA ROONEY on: 12/12/2020 05:13 PM Modules accepted: Orders * Gustavo So MD - 12/12/2020 4:30 PM CDT Chief Complaint: MRI Results (Lumbar Spine) and Lumbar Pain (Lumbar radiculopathy) History of Present Illness: Gilma Mills is a 70-year-old female who presents to the office for MRI Results (Lumbar Spine) and Lumbar Pain (Lumbar radiculopathy) Patient returns to clinic for MRI results on her lumbar spine. She walks into clinic using a wheeled walker with her . She states that her RIGHT hip pain is completely gone today. Patient continues to complain of pain to her lumbar spine. She states that pain is constant with occasional radiation down her legs with carrying items and/or prolonged walking. Occasional numbness and tingling to BILATERAL feet. Denies any night pain. She is taking 1-2 Percocet per day with good pain management. ROS: See HPI for pertinent positives Problem [...] mouth as needed., Disp: , Rfl: ??? methylPREDNISolone, BIJAN, 4 MG tablet, Follow package directions, Disp: 1 each, Rfl: [...] hypotension ??? Statins Rash Objective: Filed Vitals: 12/12/20 1626 Weight: 131.5 kg (290 lb) Height: 5' [...] Skin: No injuries or skin lesions. Musculoskeletal: Patient is more comfortable with hip rotation but continues to have a positive straight leg raise on the right Results: Review of her lumbar MRI demonstrates L3-4 disc herniation to the right with L4- 5 neuroforaminal stenosis along with facet hypertrophy Assessment: Encounter Diagnose(s) ICD-10-CM ICD-9-CM SNOMED CT(R) 1. Lumbar radiculopathy M54.16 724.4 LUMBAR RADICULOPATHY methylPREDNISolone, BIJAN, 4 MG tablet 2. Status post right hip replacement Z96.641 V43.64 HISTORY OF REPAIR OF HIP JOINT Plan: I have referred her to Dr. Davis for evaluation of her lumbar pathology. I have provided a Dosepakprescription to help with symptoms and I will start her with therapy for her lumbar radiculopathy. She will continue with therapy for her hip and she is transitioning to the cane at this point. I will see her back in a couple of weeks for reevaluation in regard to her hip Follow up: Return in about 2 weeks (around 12/26/2020). GUSTAVO SO MD documented in this encounter Plan of Treatment Scheduled Referrals Name Type Priority Associated Diagnoses Orde r Schedule Ambulatory referral to Neurology Referral Routine Lumbar disc herniation Ordered: 12/12/2020 documented as of this encounter Goals Goal Patient Goal Type Associated Problems Recent Progress Patient-Stated? Author Safety - able to safely ambulate at home; tripping hazards removed from the home Krystal Boyer, RN Note: Pt wants to go home safely with new walker. Pt made aware that therapy will work with her on safety. 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
--- OUTSIDE RECORDS SUMMARY | 2024-09-13 06:34 | XMS_ITS | Encounter Summary ---
Author Organization [facility] Address [address] [place] [address]. [place] [address] [place] [address] Care Team Providers Care House Officer Name Role Phone Sebastien Sequeira MD Primary Care Provider Encounter Details Date Type Department Care Team (Late st Contact Info) Description 01/02/2021 Orders Only [facility] [address], [place] [id number] Paul Nicolas, A Social History Tobacco Use Types Packs/Day Years [...] Assessment Author Status No 11/19/2020 1:16 PM APPEALS RN Activ e * RETIRED Are you blind or do you have serious difficulty seeing, even when wearing glasses? Answer Date of Assessment Author Status No 11/19/2020 1:16 PM APPEALS RN Activ e * Do you have serious difficulty walking or climbing stairs? Answer Date of Assessment Author Status Yes 11/19/2020 1:16 PM APPEALS RN Nory Whitaker R N Active * Do you have difficulty dressing or bathing? Answer Date of Assessment Author Status No 11/19/2020 1:16 PM APPEALS RN Nory Whitaker R N Active * Because of a physical, mental, or emotional condition, do you have difficulty doing errands alone such as visiting a doctor's office or shopping? Answer Date of Assessment Author Status No 11/19/2020 1:16 PM APPEALS RN Nory Whitaker R N Active documented as of this encounter Mental Status * Because of a physical, mental, or emotional condition, do you have serious difficulty concentrating, remembering, or making decisions? Answer Entry Date Author Status No 11/19/2020 1:16 PM Nroy Barron R N Active documented in this [...] Louis MD, 01/02/2021 6:27 PM us Daniel Garcia SALVAGE ENGINEER-BC GENERAL IMAGING Final Resu lt documented in this encounter Visit Diagnoses Diagnosis Status post right hip replacement- Primary Hip joint replacement by other means Status post right hip replacement Hip joint replacement by other means documented in this encounter Care Teams House Officer Relationship Specialty Start Date End Date Sebastien Sequeira MD [address] [place] [address] PCP - General INTERNAL MEDICINE 08/02/20 documented as of this encounter
--- OUTSIDE RECORDS SUMMARY | 2024-09-13 06:34 | XMS_ITS | Encounter Summary ---
Author Organization [facility] Address [address] [place] [address]. [place] [address] [place] [address] Care Team Providers Care School Social Worker Name Role Phone Sebastien Sequeira MD Primary Care Provider [phone] Reason for Visit * Reason Comments Postop Followup DOS 11/19/2020 right total hip Encounter Details Date Type Department Care Team (Latest Contact Info) Description 01/16/2021 1:30 PM CDT Office Visit [facility] [address] [address] Gustavo So MD [address] [place] [address] Postop Followup (DOS 11/19/2020 right total hip [...] - - Weight 131.5 kg (290 lb) 01/16/2021 1:26 PM CDT Height 177.8 cm (5' 10 ) 01/16/2021 1:26 PM CDT Body Mass Index 41.61 01/16/2021 1:26 PM CDT documented in this encounter Functional Status * RETIRED Are you deaf or do you have serious difficulty hearing Answer Date of Assessment Author Status No 11/19/2020 1:16 PM KEYPUNCH OPERATOR Activ e * RETIRED Are you blind or do you have serious difficulty seeing, even when wearing glasses? Answer Date of Assessment Author Status No 11/19/2020 1:16 PM KEYPUNCH OPERATOR Activ e * Do you have serious difficulty walking or climbing stairs? Answer Date of Assessment Author Status Yes 11/19/2020 1:16 PM KEYPUNCH OPERATOR Nory Whitaker R N Active * Do you have difficulty dressing or bathing? Answer Date of Assessment Author Status No 11/19/2020 1:16 PM KEYPUNCH OPERATOR Nory Whitaker R N Active * Because of a physical, mental, or emotional condition, do you have difficulty doing errands alone such as visiting a doctor's office or shopping? Answer Date of Assessment Author Status No 11/19/2020 1:16 PM KEYPUNCH OPERATOR Nory Whitaker R N Active documented as of this encounter Mental Status * Because of a physical, mental, or emotional condition, do you have serious difficulty concentrating, remembering, or making decisions? Answer Entry Date Author Status No 11/19/2020 1:16 PM KEYPUNCH OPERATOR Nory Whitaker R N Active documented in this encounter Progress Notes * Gustavo So MD - 01/16/2021 1:30 PM CDT Chief Complaint: Postop Followup (DOS 11/19/2020 right total hip ) History of Present Illness: Gilma Mills is a 70-year-old female who presents to the office for Postop Followup (DOS 11/19/2020 right total hip ) Patient is here for postop follow up visit for RIGHT total hip. At the last visit patient had a fall and had some numbness in the RIGHT leg but that has resolved. She states things are going well. She is using a cane. She states she was going to physical therapy last week but Dr. Davis put the therapy on hold for this week. She states her pain in the RIGHT knee is pretty much resolved. She does take pain medication for her back. ROS: See HPI for pertinent positives Problem [...] file Gets together: Not on file Attends jew service: Not on file Active member of [...] index is 41.61 kg/m??. Last Recorded Weight 01/16/21 1326 Weight: 131.5 kg (290 lb) Physical exam: Constitutional: Alert and in no acute distress. Neurological: The patient was oriented to person, place, and time. Eyes: The sclera and conjunctiva were normal ENT: Hearing was normal. Neck: The appearance of the neck was normal. Cardiovascular: Normal pulses. Pulmonary: No respiratory distress. Skin: No injuries or skin lesion. Musculoskeletal: Patient is able to actively flex the hip and demonstrates a symmetric gait pattern. No hip pain is present with rotation and she reports no further knee pain Results: X-ray demonstrates mild lengthening of the right hip. Her implants are in good position and appear stable. No acute injury Assessment: Encounter Diagnose(s) ICD-10-CM ICD-9-CM SNOMED CT(R) 1. Status post right hip replacement Z96.641 V43.64 HISTORY OF REPAIR OF HIP JOINT Plan: Patient is doing much better in regard to her right lower extremity pain. She will go back to working with therapy and I will see her back in a month. She is complaining of left shoulder pain and shewants that evaluated also when she returns Follow up: Return in about 4 weeks (around 02/13/2021). GUSTAVO SO MD documented in this encounter [...] means documented in this encounter Care Teams School Social Worker Relationship Specialty Start Date End Date Sebastien Sequeira MD [address] [place] [address] PCP - General INTERNAL MEDICINE 08/02/20 documented as of this encounter
--- OUTSIDE RECORDS SUMMARY | 2024-09-13 06:34 | XMS_ITS | Encounter Summary ---
Author Organization [facility] Address [facility]6 [facility] [place] [address] [place] [address] Care Team Providers Care Network Security Engineer Name Role Phone Sebastien Sequeira MD Primary Care Provider [phone] Encounter Details Date Type Department Care Team (Latest Contact Info) Description 11/16/2020 Travel Social History Tobacco Use Types Packs/Day [...] COVID-19? No / Unsure 11/16/2020 8:59 AM DEMONSTRATOR SALES documented as of this encounter Plan of [...] Rule Out 11/16/2020 11/16/2020 11/18/2020 8:06 AM DEMONSTRATOR SALES documented as of this encounter Care Teams Network Security Engineer Relationship Specialty Start Date End Date Sebastien Sequeira MD [address] [place] [address] PCP - General INTERNAL MEDICINE 08/02/20 documented as of this encounter
--- OUTSIDE RECORDS SUMMARY | 2024-09-13 06:34 | XMS_ITS | Encounter Summary ---
Author Organization [facility] Address [address] [place] [address]. [place] [address] [place] [address] Care Team Providers Care Therapeutic Radiologist Name Role Phone Sebastien Sequeira MD Primary Care Provider [phone] Encounter Details Date Type Department Care Team (Late st Contact Info) Description 02/14/2021 Orders Only [facility] [address], [facility] [address] [place] [address] Gustavo So MD [address] [place], [place] [id number] Social History Tobacco Use Types Packs/Day Years [...] Assessment Author Status No 11/19/2020 1:16 PM EXTRUSION SUPERVISOR Activ e * RETIRED Are you blind or do you have serious difficulty seeing, even when wearing glasses? Answer Date of Assessment Author Status No 11/19/2020 1:16 PM EXTRUSION SUPERVISOR Activ e * Do you have [...] Results * XR PELVIS AP+RT HIP 1V (02/19/2021 [...] region documented in this encounter Care Teams Therapeutic Radiologist Relationship Specialty Start Date End Date Sebastien Sequeira MD [address] [place] [address] PCP - General INTERNAL MEDICINE 08/02/20 documented as of this encounter
--- OUTSIDE RECORDS SUMMARY | 2024-09-13 06:35 | XMS_ITS | Encounter Summary ---
Author Organization [facility] Address [address] [place] [address]. [place], [place] [address] [place] [address] Care Team Providers Care Nut Packer Name Role Phone Unavailable Primary Care Provider Unavailabl e Encounter Details Date Type Department Care Team (Latest Contact Info) Description 11/20/2014 Abstract [facility] Social History Tobacco Use Types Packs/Day Years Used Date Smoking Tobacco: Never Assessed Comments Unknown Sex and Gender Information Value Date Recorded Sex Assigned at Not on file Legal Sex Female 2:03 AM CDT Gender Identity Not on file Sexual Orientation Not on file documented as of this encounter Plan of Treatment Not on file documented as of this encounter Visit Diagnoses Not on filedocumented in this encounter
--- OUTSIDE RECORDS SUMMARY | 2024-09-13 06:35 | XMS_ITS | Encounter Summary ---
Author Organization [facility] Address [facility]6 [facility] [place] [address] [place] [address] Care Team Providers Care Power Tong Operator Name Role Phone Sebastien Sequeira MD Primary Care Provider [phone] Encounter Details Date Type Department Care Team (Latest Contact Info) Description 11/06/2020 Travel Social History Tobacco Use Types Packs/Day [...] have Coronavirus / COVID-19? No / Unsure 11/06/2020 10:15 AM BODY PAINTER documented as of this encounter Plan of [...] on filedocumented in this encounter Care Teams Power Tong Operator Relationship Specialty Start Date End Date Sebastien Sequeira MD [address] [place] [address] PCP - General INTERNAL MEDICINE 08/02/20 documented as of this encounter
--- OUTSIDE RECORDS SUMMARY | 2024-09-13 06:35 | XMS_ITS | Encounter Summary ---
Author Organization [facility] Address [address] [place] [address]. [place], [place] [address] [place] [address] Care Team Providers Care Distribution District Supervisor Name Role Phone Unavailable Primary Care Provider Unavailabl e Encounter Details Date Type Department Care Team (Latest Contact Info) Description 08/15/2014 Abstract [facility] Social History Tobacco Use [...]
--- OUTSIDE RECORDS SUMMARY | 2024-09-13 06:35 | XMS_ITS | Encounter Summary ---
Author Organization [facility] Address [facility] [address] [place] [address] Care Team Providers Care Clinical Lab Technologist Name Role Phone Sebastien Sequeira MD Primary Care Provider [phone] Encounter Details Date Type Department Care Team (Latest Contact Info) Description 08/13/2020 Travel Social History Tobacco Use Types Packs/Day [...] have Coronavirus / COVID-19? No / Unsure 08/13/2020 8:06 AM CEMENT TILE MAKER documented as of this encounter Plan of Treatment Not on file documented as of this encounter Visit Diagnoses Not on filedocumented in this encounter Care Teams Clinical Lab Technologist Relationship Specialty Start Date End Date Sebastien Sequeira MD [address] [place] [address] PCP - General INTERNAL MEDICINE 08/02/20 documented as of this encounter
--- OUTSIDE RECORDS SUMMARY | 2024-09-13 06:35 | XMS_ITS | Encounter Summary ---
Author Organization [facility] Address [facility] [place] [place] [address] [place] [address] Care Team Providers Care Detail Maker And Fitter Name Role Phone Sebastien Sequeira MD Primary Care Provider [phone] Encounter Details Date Type Department Care Team (Latest Contact Info) Description 09/25/2020 Travel Social History Tobacco Use Types Packs/Day [...] have Coronavirus / COVID-19? No / Unsure 09/25/2020 10:50 AM ALGEBRAIST documented as of this encounter Plan of [...] on filedocumented in this encounter Care Teams Detail Maker And Fitter Relationship Specialty Start Date End Date Sebastien Sequeira MD [address] [place] [address] PCP - General INTERNAL MEDICINE 08/02/20 documented as of this encounter
--- OUTSIDE RECORDS SUMMARY | 2024-09-13 06:35 | XMS_ITS | Encounter Summary ---
Author Organization [facility] Address [address] [place] [address]. [place] [address] [place] [address] Care Team Providers Care Apartment House Manager Name Role Phone Sebastien Sequeira MD Primary Care Provider [phone] Encounter Details Date Type Department Care Team (Late st Contact Info) Description 09/17/2020 Orders Only [facility] [address], [place] [phone] Muna Angulo LPN Social History Tobacco Use Types Packs/Day Years [...] have Coronavirus / COVID-19? No / Unsure 08/24/2020 10:11 AM SCREW MACHINE REPAIRER documented as of this encounter Plan [...] of this encounter Results * XR PELVIS AP+LT HIP 1V (09/25/2020 11:28 AM SCREW MACHINE REPAIRER) Anatomical Region Laterality Modality Pelvis, Hip Radiographic [place] ging 09/25/2020 12:5 0 PM SCREW MACHINE REPAIRER Impressions 09/25/2020 12:52 PM SCREW MACHINE REPAIRER IMPRESSION: No acute findings. Satisfactory postoperative left hip. Interpreted By: Aki Adams MD, 09/25/2020 12:50 PM Narrative 09/25/2020 12:52 PM SCREW MACHINE REPAIRER Examination: Pelvis and left hip. Exam time: 1047 hours. Clinical history: Surgical aftercare. Comparison: 08/03/2020. Technique: Weightbearing AP pelvis centered for the hips and weightbearing frog lateral left hip. Findings: No fracture, dislocation or other acute bony abnormality is identified. Arthroplasty is now in place on the left with the components appearing in satisfactory alignment and position. There are stable marked degenerative changes on the right manifested by joint space narrowing and periarticular osteophyte formation. No other significant bone or joint abnormality is noted. The soft tissues are unremarkable. Procedure Note Aki Adams MD - 09/25/2020 Examination: Pelvis and left hip. Exam time: 1047 hours. Clinical history: Surgical aftercare. Comparison: 08/03/2020. Technique: Weightbearing AP pelvis centered for the hips andweightbearing frog lateral left hip. Findings: No fracture, dislocation or other acute bony abnormality is identified. Arthroplasty is now in place on the left with the components appearing in satisfactory alignment and position. There are stablemarked degenerative changes on the right manifested by joint space narrowingand periarticular osteophyte formation. No other significant bone or joint abnormality is noted. The soft tissues are unremarkable. IMPRESSION: No acute findings. Satisfactory postoperative left hip. Interpreted By: Aki Adams MD, 09/25/2020 12:50 PM us Gustavo So MD GENERAL IMAGING Final Result documented in this encounter Visit Diagnoses Diagnosis Status post total replacement of left hip- Primary Status post total replacement of left hip documented in this encounter Care Teams Apartment House Manager Relationship Specialty Start Date End Date Sebastien Sequeira MD [address] [place] [phone] PCP - General INTERNAL MEDICINE 08/02/20 documented as of this encounter
--- OUTSIDE RECORDS SUMMARY | 2024-09-13 06:35 | XMS_ITS | Encounter Summary ---
Author Organization [facility] Address [facility]6 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 No / Unsure 08/13/2020 8:06 AM COMMERCIAL ATTACHE documented as of this encounter Plan of Treatment Scheduled Referrals Name Type Priority Associated Diagnoses Orde r Schedule Ambulatory referral to Physical Therapy Referral Routine Primary osteoarthritis of left hip Status post total replacement of left hip Ordered: 08/14/2020 documented as of this encounter Goals Goal [...] encounter Visit Diagnoses Diagnosis Primary osteoarthritis of left hip- Primary Primary localized osteoarthrosis, pelvic region and thigh Status post total replacement of left hip documented in this encounter Care Teams Crop Pest Control Specialist Relationship Specialty Start Date End Date Sebastien Sequeira MD [address] [place] [phone] PCP - General INTERNAL MEDICINE 08/02/20 documented as of this encounter
--- OUTSIDE RECORDS SUMMARY | 2024-09-13 06:35 | XMS_ITS | Encounter Summary ---
Author Organization [facility] Address [facility] [place] [address] [place] [address] Care Team Providers Care Machine Operator Picker Name Role Phone Unavailable Primary Care Provider Unavailabl e Encounter Details Date Type Department Care Team (Late st Contact Info) Description 08/18/2014 Abstract [facility] - [place] [address] [place] [address] Jenna Yusuf MD [address] [facility] [address] [facility] [place] [phone] Social History Tobacco Use Types Packs/Day Years Used Date Smoking Tobacco: Never Assessed Comments Unknown Sex and Gender Information Value Date Recorded Sex Assigned at Not on file Legal Sex Female 2:03 AM CDT Gender Identity Not on file Sexual Orientation Not on file documented as of this encounter Last Filed Vital Signs Vital Sign Reading Time Taken Comments Blood Pressure 120/70 08/18/2014 12:48 PM SERICULTURE TEACHER Pulse 83 08/18/2014 12:48 PM SERICULTURE TEACHER Temperature - - Respiratory Rate - - Oxygen Saturation - - Inhaled Oxygen Concentration - - Weight 118.6 kg (261 lb 8 oz) 08/18/2014 12:48 P M SERICULTURE TEACHER Height 180.3 cm (5' 11 ) 08/18/2014 12:48 PM SERICULTURE TEACHER Body Mass Index 36.47 08/18/2014 12:48 PM SERICULTURE TEACHER documented in this encounter Progress Notes * Jenna Yusuf MD - 08/18/2014 1:00 PM CST Assessment Assessed 1. Apnea, sleep (780.57) (G47.30) 2. Restless legs syndrome (333.94) (G25.81) 3. Cough (786.2) (R05) 4. Post-nasal drip (784.91) (R09.82) A 64-year-old non-smoker with multiple comorbidities here for further evaluation of mild PARI and fatigue. She is also on , therapy with multiple medications, many of which have side effects of causing fatigue/tiredness has an underlying diagnosis of mild PARI, is not treated because patient is not compliant with CPAP therapy. 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 Plan Apnea, sleep 1. Patient Education Status: Complete Done: [id number] ; Last Updated By: Mirta Lam; 08/18/2014 1:06:45 PM; Ordered; For: Apnea, sleep; Ordered By: Jenna Yusuf 2. Pap Nap Status: Hold For - Manual Activation Requested for: [id number] Perform: In Office Order Comments: AT [facility] Due: [id number]; Ordered; For: Apnea, sleep; Ordered By: Jenna Yusuf 3. Follow-up visit in 6 weeks Outpatient Follow-up Status: Complete Done: [id number] Ordered; For: Apnea, sleep; Ordered By: Jenna Yusuf Performed: Due: [id number]; Last Updated By:Mima Villasenor; 08/18/2014 1:43:30 PM Cough 4. Administered: Albuterol Sulfate (2.5 MG/3ML) 0.083% Inhalation Nebulization Solution Rx By: Jenna Yusuf; For: Cough; Dose of 3 ML; Inhalation; SOPHIA = N; Administered by: Mirta Lam: 08/18/2014 1:25:00 PM; Last Updated By: Mirta Lam; 08/18/2014 1:25:40 PM 5. *Spirometry with Bronchodilator Admin In Office Status: Complete Done: [id number] Perform: In Office Due: [id number]; Last Updated By: Mirta Lam; 08/18/2014 1:25:40 PM; Ordered; For: Cough; Ordered By: Jenna Yusuf Post-nasal drip 6. Start: Fluticasone Propionate 50 MCG/ACT Nasal Suspension; USE 2 SPRAYS IN EACH NOSTRIL TWICE DAILY Rx By: Jenna Yusuf; Dispense: 30 Days ; #:16 GM; Refill: 5; For: Post-nasal drip; SOPHIA = N; Verified Transmission to [facility]; Last Updated By: BaldomeroHungerTime; 08/18/2014 1:29:28 PM Ferritin Status: Resulted - Requires Verification Done: 14Sep2023 12:00AM Due: 17Sep2014; Ordered; For: Restless legs syndrome; Ordered By: Jenna Yusuf Discussion/Summary Discussion Summary Free Text: Patient was counseled extensively about the role of medications as a contributory factor to her symptoms and she agrees. I completely agree with Dr. Sequeira?s strategy of trying to reduce her medication burden. He is working with ropinirole dosage. I will recommend that she decrease her clonaz epam to QOD dosage because the tremors that she was started on clonazepam for have not been symptomatic since 2000. I would recommend a short PAP-NAP study at the [facility] to see if we can find the mask interface which is more suitable and tolerable to the patient with help of which she could start complying with her CPAP again. Counseled about sleep hygiene and regular exercise. I think mild exercise done 2 or 3 times weekly may go a long way in improving her sleep quality. I appreciate the opportunity to participate in [place]. We will follow back with her in 4 to 6 weeks just after her PAP-NAP. History of Present Illness HPI Free Text: A 64-year-old smoker referred by Dr. Sequeira for further evaluation of excessive daytime sleepiness. Patient has a known diagnosis of obstructive sleep apnea diagnosed earlier this year. She was prescribed auto CPAP for that with a full face mask; however, patient was unable to tolerate it. 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 She reports that she goes to bed at about 9:30 to 10:00, reads in bed for about half to one hour on an electronic device. Her wake time is at 6 o?clock byan alarm. She reports that she sleeps soundly and no interruption. She snores somewhat but does nothave any witnessed apnea episodes. She wakes up in the morning not feeling rested. 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 She is unable to take a nap during the day. She taught that when she was on the CPAP it was interfering with her sleep even more and not helping with her daytime fatigue. She reports that her RLS is well-controlled with the b.i.d. dosage of Requip at [address] Sequeira, her PMD has been working with her to decrease the dosage of all the medications that she is on. She does report chronic nasal congestion with i ntermittent cough and has never been treated for it. Review of Systems Review of Systems CIAR: Constitutional: fatigue and chills Head Eyes Ears Nose and Throat: hoarseness sneezing Cardiovascular: Lightheadedness. Respiratory: cough Gastrointestinal: Negative. and nausea Genitourinary: urinary frequency Musculoskeletal: joint pain localized to one or more joints, joint swelling and muscle aches Integumentary: Negative. Neurological: headache and confusion Psychiatric: insomnia, was irritable, anxiety and depression Endocrine: night sweats and hot flashes Hematologic/Lymphatic: a tendency for easy bruising Surgical History Problems 1. History of Hysterectomy 2. History of Rotator Cuff Repair Family History Mother 1. Family history of malignant neoplasm of breast (V16.3) (Z80.3) Father 2. Family history of chronic obstructive pulmonary disease (V17.6) (Z82.5) 3. Family history of congestive heart failure (V17.49) (Z82.49) 4. Family history of hypertension (V17.49) (Z82.49) Sister 5. Family history of malignant neoplasm of breast (V16.3) (Z80.3) 6. Family history of multiple sclerosis (V17.2) (Z82.0) Social History Problems ?? Never a smoker (V49.89) (Z78.9) Current Meds 1. ALPRAZolam 0.25 MG Oral Tablet; Therapy: 27Feb2014 to Recorded 2. Benadryl 25 MG Oral Tablet; Therapy: (Recorded:18Aug2014) to Recorded 3. ClonazePAM 1 MG Oral Tablet; Therapy: 15Nov2013 to Recorded 4. Furosemide 40 MG Oral Tablet; Therapy: 05Jul2013 to Recorded 5. Hydrocodone-Acetaminophen 5-325 MG Oral Tablet; Therapy: 24Zgx8017 to Recorded 6. Ibuprofen 200 MG Oral Tablet; Therapy: (Recorded:18Aug2014) to Recorded 7. Levothyroxine Sodium 75 MCG Oral Tablet; Therapy: 15Nov2013 to Recorded 8. Lyrica 100 MG Oral Capsule; Therapy: 09Feb2014 to Recorded 9. Nortriptyline HCl - 25 MG Oral Capsule; Therapy: 15Nov2013 to Recorded 10. Potassium Chloride [place] ER 20 MEQ Oral Tablet Extended Release; Therapy: 31Jan2014 to Recorded 11. Pravastatin Sodium 40 MG Oral Tablet; Therapy: 16Sep2013 to Recorded 12. Propranolol HCl ER 60 MG Oral Capsule Extended Release 24 Hour; Therapy: 60Men1906 to Recorded 13. ROPINIRole HCl - 2 MG Oral Tablet; Therapy: 09Feb2014 to Recorded 14. Spironolactone 50 MG Oral Tablet; Therapy: 15Aug2014 to Recorded 15. Topiramate 25 MG Oral Tablet; Therapy: 15Aug2014 to Recorded 16. TraMADol HCl - 50 MG Oral Tablet; Therapy: 20Oct2013 to Recorded 17. Triamterene-HCTZ 37.5-25 MG Oral Tablet; Therapy: 16Sep2013 to Recorded 18. Venlafaxine HCl ER 150 MG Oral Capsule Extended Release 24 Hour; Therapy: 15Nov2013 to Recorded Vitals Vital Signs [Data Includes: Current Encounter] Recorded by : Mirta Lam at [id number] 12:48PM Heart Rate 83 Systolic 120, RUE, Sitting Diastolic 70, RUE, Sitting O2 Saturation 98 Height 5 ft 11 in Weight 261 lb 8 oz BMI Calculated 36.47 BSA Calculated 2.36 Physical Exam Pulmonary Multi-System Exam CIAR: Constitutional: General appearance: Abnormal. Looks tired. Head and Face: Head and face: Normal. Palpation of the face and sinuses: Normal. Eyes: Conjunctiva and lids: Normal. Pupils and irises: Normal. Ears, Nose, Mouth, and Throat: External inspection of ears and nose: Normal. Nasal mucosa, septum, and turbinates: Normal. Lips, teeth, and gums: Normal. Oropharynx: Abnormal. Mallampati class 3. Neck: Neck Appearance: Normal. Cardiovascular Auscultation of heart: Normal. Examination of extremities for edema: Normal. Pulmonary Chest: Normal. Respiratory effort: Normal. Auscultation of lungs: Normal. Clear. Abdomen Examination of Abdomen: Abnormal. Obese. Skin Skin and subcutaneous tissue: Normal. Musculoskeletal Inspection/palpation of digits and nails: Normal without clubbing or cyanosis. Muscle strength/tone: Normal. Psychiatric Mood and affect: Abnormal. Dysphoric. Neurological Orientation to person, place, and time: Normal. Recent and remote memory: Demonstrates normal memory. Attention span and concentration: Normal thought process and attention span. Names objects, able to repeat phrases and speaks spontaneously. Spirometry Spirometry: Spirometry done today revealed FEV1 percent of 78%, FEV1 2.40 L, 81% predicted, FEV 3.08 L, 82% predicted, no significant bronchodilator response. Interpretation: Normal spirometry. Results/Data Sleep study in September 2013 showed an [place] Sleepiness Scale of 11 with a baseline AHI of 6 per hour and a REM AHI of 16.8 per hour. There was zero periodic limb movements noted during the study. CBC done August 2014 showed a hemoglobin of 13.9 and hematocrit of 41.4 g/dL. Signatures Electronically signed by : Jenna Yusuf M.D.; Aug 21 2014 1:35PM SERICULTURE TEACHER (Author) documented in this encounter Plan of Treatment Not on file documented as of this encounter Procedures Procedure Name Priority Date/Time Associated Diagnosis Comments FERRITIN Routine 08/18/2014 1:29 PM SERICULTURE TEACHER documented in this encounter Results * FERRITIN (08/18/2014 1:29 PM SERICULTURE TEACHER) FERRITIN 196 4.63 - 204.0 ng/mL [facility] TO EPIC CONVERSION 08/18/2014 1:29 PM SERICULTURE TEACHER 08/18/2014 1:29 PM SERICULTURE TEACHER Narrative [facility] TO EPIC CONVERSION - 08/18/2014 6:41 PM SERICULTURE TEACHER Result Communication: No patient communication needed at this time us Jenna Yusuf MD LABORATORY Final Result [facility] TO EPIC CONVERSION documented in this encounter Visit Diagnoses Not on filedocumented in this encounter
--- OUTSIDE RECORDS SUMMARY | 2024-09-13 06:35 | XMS_ITS | Encounter Summary ---
Author Organization [facility] Address [facility]6 [facility] [place] [address] [place] [address] Care Team Providers Care Armoured Corps Officer Name Role Phone Sebastien Sequeira MD Primary Care Provider [phone] Reason for Referral * Surgical (Routine) - Closed Specialty Diagnoses / Procedures Referred By Contac t Referred To Contact Diagnoses M16.12 Procedures Case request operating room: LEFT Total Hip ArthroplastyOutpatient StatusNate notified Gustavo So MD [address] [place] [address] Phone: tel: fax: Referral ID Status Reason Start Date Expiration Date Visits Re quested Visits Authorized [id number] Closed 08/03/2020 09/02/2021 1 1 K CRANE OPERATOR HELPER Encounter Details Date Type Department Care Team (Late st Contact Info) Description 08/03/2020 Prep for Procedure [facility] [address] [place] [address], [address] [address] Gustavo So MD [address] [place] [address] Social History Tobacco Use Types Packs/Day Years Used Date Smoking Tobacco: Never Smokeless Tobacco: Never Alcohol Use Standard Drinks/Week Comments Yes 0 (1 standard drink = 0.6 oz [...] have Coronavirus / COVID-19? No / Unsure 08/03/2020 10:45 AM TRUCK CRANE OPERATOR HELPER documented as of this encounter Plan of Treatment Scheduled Orders Name Type Priority Associated Diagnoses Order Schedule Case request operating room: LEFT Total Hip ArthroplastyOutpatient StatusNate notified Case Request Routine Once for 1 Occurrences starting 08/03/2020 until 08/03/2020 documented as of this encounter Results * (ABNORMAL) URINALYSIS WI REFLEX TO CULTURE (08/07/2020 10:06 AM TRUCK CRANE OPERATOR HELPER) COLOR (U) YELLOW 08/07/2020 10:23 AM [facility] TRANSPARENCY CLEAR 08/07/2020 10:23 AM [facility] SPECIFIC GRAVITY (U) 1.025 1.000 - 1.025 08/07/2020 10:23 AM [facility] U PH 7.0 5.0 - 8.0 08/07/2020 10:23 AM [facility] LEUKOCYTES (U) NEGATIVE NEGATIVE 08/07/2020 10:23 AM [facility] NITRITES NEGATIVE NEGATIVE 08/07/2020 10:23 AM [facility] PROTEIN (U) NEGATIVE NEGATIVE 08/07/2020 10:23 AM [facility] URINE GLUCOSE NEGATIVE NEGATIVE 08/07/2020 10:23 AM [facility] KETONES MG/DL (U) NEGATIVE NEGATIVE 08/07/2020 10:23 AM [facility] UROBILINOGEN 0.2 <1.0 EU/DL 08/07/2020 10:23 AM [facility] BILIRUBIN (U) NEGATIVE NEGATIVE 08/07/2020 10:23 AM [facility] BLOOD (U) TRACE(A) NEGATIVE 08/07/2020 10:23 AM [facility] WBC/HPF 0-5 0 - 5 /HPF 08/07/2020 10:23 AM [facility] EPI/HPF FEW /LPF 08/07/2020 10:23 AM [facility] CULTURE & SENSITIVITY INDICATED? NOT INDICATED 08/07/2020 10:23 AM [facility] URINE SPECIMEN OBTAINED BY CLEAN CATCH PROCEDURE / Unknown 08/07/2020 10:06 AM TRUCK CRANE OPERATOR HELPER us Gustavo So MD URINE ORDERABLES Final Result [facility] [place] [address], * MRSA SCREENING (08/07/2020 10:01 AM TRUCK CRANE OPERATOR HELPER) SPEC DESCRIPTION NASAL 08/07/2020 9:34 AM [facility] SPECIAL REQUESTS NO SPECIAL REQUEST 08/07/2020 9:34 AM [facility] RESULT Negative by Rapid PCR for Methicillin Resistant Staphylococcus aureus 08/07/2020 6:02 PM [facility] SPECIMEN FROM INTERNAL NOSE / Unknown 08/07/2020 10:01 AM TRUCK CRANE OPERATOR HELPER 08/07/2020 10:03 AM TRUCK CRANE OPERATOR HELPER us Gustavo So MD MICROBIOLOGY - GENERAL ORDERAB LES Final Result Performing Organization Address City/[facility]/ZIP Co de Phone Number [facility] [address] [place] [address], [place] [phone] [facility] [address] [place] [address], [place] [phone] * (ABNORMAL) CBC W/DIFF AUTOMATED (08/07/2020 10:00 AM TRUCK CRANE OPERATOR HELPER) WBC 7.6 4.5 - 10.8 x10'3/uL 08/07/2020 10:13 AM TRUCK CRANE OPERATOR HELPER [facility] RBC 4.56 4.10 - 5.40 x10'6/uL 08/07/2020 10:13 AM [facility] HGB 13.3 12.0 - 16.0 G/DL 08/07/2020 10:13 AM [facility] HCT 42.1 36.0 - 47.0 % 08/07/2020 10:13 AM [facility] MCV 92.3 78.0 - 100.0 FL 08/07/2020 10:13 AM [facility] MCH 29.2 27.0 - 31.0 PG 08/07/2020 10:13 AM [facility] MCHC 31.6(L) 33.0 - 36.0 G/DL 08/07/2020 10:13 AM [facility] RDW 13.4 11.5 - 14.5 % 08/07/2020 10:13 AM [facility] PLT 270 150 - 350 x10'3/uL 08/07/2020 10:13 AM [facility] MPV 8.5 7.4 - 10.4 FL 08/07/2020 10:13 AM [facility] DIFFERENTIAL COMMENT NORMAL REFERENCE RANGE NOT ESTABLISHED FOR THE PROPORTIONAL LEUKOCYTE DIFFERENTIAL. 08/07/2020 10:13 AM [facility] SEG NEUTROPHILS 68.8 % 0 10:13 AM [facility] LYMPHOCYTES 19.4 % 08/07/2020 10:13 AM [facility] MONOCYTES 6.7 % 08/07/2020 10:13 AM [facility] EOSINOPHILS 4.0 % 08/07/2020 10:13 AM [facility] BASOPHILS 0.8 % 08/07/2020 10:13 AM [facility] IMMATURE GRANS % 0.3 % 08/07/20 20 10:13 AM [facility] NRBC 0.0 % 08/07/2020 10:13 AM [facility] ABS. NEUTROPHILS 5.20 1.60 - 8.30 x10'3/uL 08/07/2020 10:13 AM [facility] ABS. LYMPHOCYTES 1.47 0.80 - 4.70 x10'3/uL 08/07/2020 10:13 AM [facility] ABS. MONOCYTES 0.51 0.00 - 1.50 x10'3/uL 08/07/2020 10:13 AM [facility] ABS. EOSINOPHILS 0.30 0.00 - 0.40 x10'3/uL 08/07/2020 10:13 AM [facility] ABS. BASOPHILS 0.06 0.00 - 0.20 x10'3/uL 08/07/2020 10:13 AM [facility] ABS. IMMATURE GRANULOCYTES 0.02 0.00 - 0.03 x10'3/uL 08/07/2020 10:13 AM [facility] ABS. NUCLEATED RBC'S 0.00 0.00 x10'3/uL 08/07/2020 10:13 AM [facility] 08/07/2020 10:0 0 AM [facility] Gustavo So MD LABORATORY Final Result [facility] [address] [place] [id number], * (ABNORMAL) BASIC METABOLIC PANEL (08/07/2020 10:00 AM [facility]) SODIUM S/P/B 135(L) 136 - 145 MMOL/L 08/07/2020 10:24 AM [facility] POTASSIUM S/P/B 4.7 3.5 - 5.1 MMOL/L 08/07/2020 10:24 AM [facility] CHLORIDE S/P/B 98 98 - 107 MMOL/L 08/07/2020 10:24 AM [facility] CO2 28.9 21.0 - 32.0 MMOL/L 08/07/2020 10:24 AM [facility] GLUCOSE 106(H) 70 - 99 MG/DL 08/07/2020 10:24 AM [facility] Comment: FASTING GLUCOSE 100 TO 125 MG/DL IS CONSISTENT WITH IMPAIRED FASTING GLUCOSE. FASTING GLUCOSE >125 MG/DL IS CONSISTENT WITH DIABETES. RANDOM GLUCOSE >200 MG/DL WITH HYPERGLYCEMIC SYMPTOMS IS CONSISTENT WITH DIABETES. PER ADA GUIDELINES BUN 19 6 - 24 MG/DL 08/07/2020 10:24 AM TRUCK CRANE OPERATOR HELPER [facility] CREATININE S/P/B 0.95 0.55 - 1.02 MG/DL 08/07/2020 10:24 AM [facility] CALCIUM S/P/B 9.6 8.4 - 10.5 MG/DL 08/07/2020 10:24 AM [facility] ANION GAP 8.1 5.0 - 15.0 MMOL/L 08/07/2020 10:24 AM [facility] OSMOLALITY (CALC) 283 MOSM/KG 020 10:24 AM [facility] Comment:REFERENCE RANGE NOT ESTABLISHED EGFR NON-AFR. AMER. 61(L) >89 ML/MIN/1. 73 M2 08/07/2020 10:24 AM [facility] EGFR AFR. AMER. 71(L) >89 ML/MIN/1. 73 M2 08/07/2020 10:24 AM [facility] GFR NOTES GFR REFERENCE S: 08/07/2020 10:24 AM [facility] Comment: THE ESTIMATED GFR IS [...] ml/min/1.73 m2 G5,KIDNEY FAILURE: <15 ml/min/1.73 m2 08/07/2020 10:0 0 AM TRUCK CRANE OPERATOR HELPER us Gustavo So MD LABORATORY Final Result [facility] [address] [place] [address], documented in this encounter Visit Diagnoses Diagnosis Primary osteoarthritis of left hip- Primary Primary localized osteoarthrosis, pelvic region and thigh Chronic left hip pain Pain in joint, pelvic region and thigh documented in this encounter Care Teams [employer] Officer Relationship Specialty Start Date End Date Sebastien Sequeira MD [address] [place] [id number] PCP - General INTERNAL MEDICINE 08/02/20 documented as of this encounter
--- OUTSIDE RECORDS SUMMARY | 2024-09-13 06:35 | XMS_ITS | Encounter Summary ---
Author Organization [facility] Address [address] [place] [address]. [place] [address] [place] [address] Care Team Providers Care Commissioning Manager Name Role Phone Sebastien Sequeira MD Primary Care Provider [phone] Reason for Visit * Reason Comments Hip Pain LEFT Encounter Details Date Type Department Care Team (Late st Contact Info) Description 08/03/2020 11:15 AM HEEL SEAT FLAP STAPLER Office Visit [facility] [address] [place], [place] [id number] Gustavo So MD [address] [place], [place] [id number] Hip Pain (LEFT ) Social History Tobacco Use Types Packs/Day [...] have Coronavirus / COVID-19? No / Unsure 08/07/2020 10:52 AM HEEL SEAT FLAP STAPLER documented as of this encounter Last Filed Vital Signs Vital Sign Reading Time Taken Comments Blood Pressure - - Pulse - - Temperature - - Respiratory Rate - - Oxygen Saturation - - Inhaled Oxygen Concentration - - Weight 131 kg (288 lb 12.8 oz) 08/03/2020 11:11 AM HEEL SEAT FLAP STAPLER Height 180.3 cm (5' 11 ) 08/03/2020 11:11 AM HEEL SEAT FLAP STAPLER Body Mass Index 40.28 08/03/2020 11:11 AM HEEL SEAT FLAP STAPLER documented in this encounter Progress Notes * Gustavo So MD - 08/03/2020 11:15 AM CST Chief Complaint: Hip Pain (LEFT ) History of Present Illness: Gilma Mills is a 70-year-old female who presents to the office for Hip Pain (LEFT ) Patient has been having LEFT hip pain for over 1 year. She states that she was Dr. Song at [facility] and was told that she could not have a hip replacement due to her weight. Patient does have groin pain. She states that the pain will radiate down her LEFT leg. She has tried anti inflammatories without relief. She states that she has tried 3 hip intraarticular injections without relief. She does admit some numbness in her LEFT foot. She has been taking Tylenol, ibuprofen, and [place] for pain relief. She does use a wheeled walker to assist with ambulation. ROS: See HPI for pertinent positives Problem List: There is no problem list on file for this patient. History: Past Medical History: Diagnosis Date ??? Acid reflux ??? Depression with anxiety ??? Fibromyalgia ??? Hypertension Past Surgical History: Procedure Laterality Date ??? ARTHROSCOPY SHOULDER ROTATOR CUFF REPAIR Right ??? FOOT SURGERY Right ??? HYSTERECTOMY ??? TOTAL KNEE ARTHROPLASTY Bilateral Family History [...] Substance and Sexual Activity ??? Alcohol use: Yes ??? Drug use: Never ??? Sexual activity: Not on file Lifestyle ??? Physical activity Days per week: Not on file Minutes per session: Not on file ??? Stress: Not on file Relationships ??? Social connections Talks on phone: Not on file Gets together: Not on file Attends uatsdin service: Not on file Active member of [...] needed., Disp: , Rfl: ??? aspirin EC (ASPIRIN EC) 81 MG tablet, Take 81 mg by mouth daily., Disp: , Rfl: [...] by mouth every 6 (six) hours as neededfor Pain., Disp: , Rfl: ??? nortriptyline 25 MG [...] nightly at bedtime., Disp: , Rfl: ??? spironolactone 100 MG tablet, Take 1 tablet by mouth daily., Disp: , Rfl: ??? venlafaxine XR 150 MG 24 hr capsule, Take 1 capsule by mouth daily., Disp: , Rfl: Allergies Allergen Reactions ??? Contrave [Naltrexone-Bupropion Hcl Er] Dizziness ??? Zanaflex [Tizanidine] Other (see comment) hypotension ??? Statins Rash Objective: Body mass index is 40.28 kg/m??. Last Recorded Weight 08/03/20 1111 Weight: 131 kg (288 lb 12.8 oz) Physical exam: Constitutional: Alert and in no acute distress. Neurological: The patient was oriented to person, place, and time. Eyes: The sclera and conjunctiva were normal ENT: Hearing was normal. Neck: The appearance of the neck was normal. Cardiovascular: Normal pulses. Pulmonary: No respiratory distress. Skin: No injuries or skin lesion. Musculoskeletal: Left hip exam demonstrates virtually no rotation without significant discomfort. She does not have a flexion contracture but only flexes up to about 70 degrees. She is neurovascularly intact today. She has a severely antalgic gait pattern and uses a walker Results: Left hip x-rays demonstrate collapse of the left femoral head with loss of joint space and severe degenerative changes consistent with avascular necrosis and osteoarthritis Assessment: Encounter Diagnose(s) ICD-10-CM ICD-9-CM SNOMED CT(R) 1. Primary osteoarthritis of left hip M16.12 715.15 OSTEOARTHRITIS OF LEFT HIP JOINT Plan: I have reviewed treatment options as well as risks and benefits of left hip replacement. She understands that risks for her are greater because of her weight. She has functional disability as well aspain at night. She can hardly move without a walker so she is severely limited. She elects to proceed with left hip replacement on August 13. Patient Education: The planned procedure/s, the expected benefits,the associated risks, possible complications, and alternatives to the procedure/s have been discussed in detail with the patient or family. They state that they understand, have no further questions and agree to proceed with the procedure/s as outlined. Procedure/Surgery: 08/13/2020 LEFT Total Hip Arthroplasty Follow up: Return for Post-Op. GUSTAVO SO MD SEAT FLAP STAPLER SEAT FLAP STAPLER SEAT FLAP STAPLER documented in this encounter Plan of Treatment Not on file documented as of this encounter Visit Diagnoses Diagnosis Primary osteoarthritis of left hip- Primary Primary localized osteoarthrosis, pelvic region and thigh documented in this encounter Care Teams Commissioning Manager Relationship Specialty Start Date End Date Sebastien Sequeira MD [address] [place] [address] PCP - General INTERNAL MEDICINE 08/02/20 documented as of this encounter
--- OUTSIDE RECORDS SUMMARY | 2024-09-13 06:35 | XMS_ITS | Encounter Summary ---
Author Organization [facility] Address [facility] [place] [address] [place] [address] Care Team Providers Care Oracle Ebs Architect Name Role Phone Sebastien Sequeira MD Primary Care Provider [phone] Reason for Referral * Surgical (Routine) - Closed Specialty Diagnoses / Procedures Referred By Aaron rai Referred To Contact Procedures Case request operating room: RIGHT Total Hip ArthroplastyNate notifiedOutpatient Status Gustavo So MD [address] [place] [id number] Phone: tel: fax: Referral ID Status Reason Start Date Expiration Date Visits Re quested Visits Authorized [id number] Closed 11/07/2020 12/05/2021 1 1 MASTER Encounter Details Date Type Department Care Team (Late st Contact Info) Description 11/07/2020 Prep for Procedure [facility] [address] [place] [address], [facility] [address] [place] [address] Gustavo So MD [address] [place] [address] Social History Tobacco Use Types Packs/Day Years [...] COVID-19? 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
--- OUTSIDE RECORDS SUMMARY | 2024-09-13 06:35 | XMS_ITS | Encounter Summary ---
Author Organization [facility] / [facility] Address [facility] [place] [place] [address] [place] [address] Care Team Providers Care Carpet Sewer Name Role Phone Stella Obrien MD Primary Care Provider [phone] Reason for Visit * Auth/Cert Specialty Diagnoses / Procedures Referred By Aaron t Referred To Contact Diagnoses M16.12 Procedures LEFT Total Hip ArthroplastyOutpatient StatusNate notified Referral ID Status Reason Start Date Expiration Date Visits Re quested Visits Authorized [id number] 1 1 Encounter Details Date Type Department Care Team (Late st Contact Info) Description 08/13/2020 9:43 AM CREAM CHEESE MAKER - 08/13/2020 11:51 AM CREAM CHEESE MAKER Surgery [address] [place] [address] Gustavo Salmeron MD [address] [place] [address] LEFT Total Hip Arthroplasty Surgery Details Date/Time Status Location OR Service Patient Class Case Class Case Type Trauma Case? 08/13/2020 9:43 AM Posted [facility] OR OR 2 Orthopedics Short Stay/Outpat ient Surgery No Panel 1 Procedure LRB Anes Op Region Wound Class Comments LEFT Total Hip Arthroplasty Left Spinal Hip Cl [place] Surgeon Surgeon Role Service Panel Gustavo Salmeron [...] COVID-19? No / Unsure 08/13/2020 8:06 AM CREAM CHEESE MAKER documented as of this encounter Last Filed Vital Signs Vital Sign Reading Time Taken Comments Blood Pressure 133/80 08/13/2020 9:45 AM CREAM CHEESE MAKER Pulse 77 08/13/2020 9:45 AM CREAM CHEESE MAKER Temperature 36.3 ??C (97.3 ??F) 08/13/2020 8:36 AM CS T Respiratory Rate 16 08/13/2020 9:45 AM CREAM CHEESE MAKER Oxygen Saturation 97% 08/13/2020 9:45 AM CREAM CHEESE MAKER Inhaled Oxygen Concentration - - Weight 130.6 kg (288 lb) 08/07/2020 10:42 AM CREAM CHEESE MAKER Height 180.3 cm (5' 11 ) 08/07/2020 10:42 AM CREAM CHEESE MAKER Body Mass Index 40.17 08/07/2020 10:42 AM CREAM CHEESE MAKER documented in this encounter Discharge Summaries * Adele Garcia, CORPORATE SAFETY COORDINATOR-BC - 08/14/2020 4:30 PM CST Discharge Summary Patient: Gilma Mills is a 70-year-old female : 1950 Medical Record: [id number] Admit Date: 08/13/2020 8:06 AM Admission Diagnosis: M16.12 PCP: STELLA OBRIEN MD Admitting Physician: Gustavo Salmeron MD Discharge date: 08-14-2020 Discharge Diagnosis: Patient Active Problem List Diagnosis Date Noted ??? Primary osteoarthritis of left hip 08/13/2020 ??? Status post total replacement of left hip 08/13/2020 ??? Daytime hypersomnia 10/05/2017 ??? Obstructive sleep apnea 08/18/2014 ??? Post-nasal drip 08/18/2014 ??? Restless legs syndrome 08/18/2014 ??? Hypertension 08/18/2014 ??? Fibromyalgia 08/18/2014 ??? Arthritis 08/18/2014 Surgery date: 08/13/2020 Procedure: LEFT Total Hip Arthroplasty: Discharged Condition: stable Hospital Course: Gilma Mills is a 70-year-old female who underwent an elective LEFT Total Hip Arthroplasty: . She wasadmitted postoperatively for routine infection and DVT prophylaxis and mobilized with physical therapy. Postoperatively she made good progress with mobilization and had good pain control. She was found to be safe with independent activity to be discharged home. Her final examination demonstrates that her dressing is clean dry and intact. She is demonstrating increasing quad strength and is neurovascularly intact. Discharge instructions were provided a long with a follow-up appointment. She willcontinue her regular home medications and a prescription for hydrocodone was provided for pain relie f. She will continue to take an Aspirin twice a day for DVT prophylaxis and scheduled for Oupatientphysical therapy. Consults: none Disposition: discharged to home Discharged Condition: Stable Discharge Medications: Medication List CHANGE how you take these medications aspirin EC 325 MG tablet Commonly known as: ECOTRIN Take 1 tablet (325 mg total) by mouth 2 (two) times daily with meals for 41 days. Once complete with 325 mg twice a day and may resume home dose of 81 mg What changed: ?? medication strength ?? how much to take ?? when to take this ?? additional instructions HYDROcodone-acetaminophen 5-325 MG tablet Commonly known as: NORCO Take 1-2 tablets by mouth every 4 (four) hours as needed for Pain. Indications: Acute Pain < 7 Day Supply What changed: ?? how much to take ?? when to take this CONTINUE taking these medications ALPRAZolam 0.25 MG [...] 2 MG tablet Commonly known as: REQUIP spironolactone 100 MG tablet Commonly known as: ALDACTONE venlafaxine XR 150 MG 24 hr capsule Commonly known as: EFFEXOR-XR Where to Get Your Medications These medications were sent to [address] [place] - [address] [facility] [address] [facility] [id number] ?? HYDROcodone-acetaminophen 5-325 MG tablet You can get these medications from any pharmacy You don't need a prescription for these medications ?? aspirin EC 325 MG tablet Signed MUKESH FRANK Cosigned by Gustavo Salmeron MD at 08/30/2020 4:10 PM CREAM CHEESE MAKER M CHEESE MAKER M CHEESE MAKER documented in this encounter Discharge Instructions * Discharge Instructions* Rosalee Sorensen RN - 08/14/2020 2:59 PM CREAM CHEESE MAKER Images from the original note were not included. Patient Education Total Hip Replacement Discharge Instructions About this topic The hip joint is a ball and socket joint. The ball part of the joint is the top part of the thigh bone. It is the femoral head. The socket is a part of the pelvic bone. The ???ball?? fits intoa groove called the acetabulum. Cartilage covers the parts of the joint in a normal hip. This lets the hip glide easily. The cartilage can become worn and cause bone to rub on other bone. This often leads to pain, stiffness, and trouble walking. Sometimes, drugs and exercises can help you with the pain. When they stop working, you may need hip joint replacement surgery. What care is needed at home? ?? Ask your doctor what you need to do when you go home. Make sure you ask questions if you do not understand what the doctor says. This way you will know what you need to do. ?? Talk to your doctor about how to care for your cut site. Ask your doctor about: ? When you should change your bandages ? When you may take a bath or shower ? If you need to be careful with lifting things over 10 pounds (4.5 kg) ? When you may go back to your normal activities like work or driving ?? Be sure to wash your hands before and after touching your wound or dressing. ?? Have someone to drive and help you at home to help for the first few weeks. ?? Keep your house safe and clutter-free. This will make it safer for you to walk. ?? You may need to put on the long, tight socks given in the hospital while you sleep. What follow-up care is needed? ?? You may need to have more therapy before going home. A short stay in rehab or a halfway facility will often help. ?? You may need to have a nurse come visit you at home to check on you. Physical therapists can also come to your home to help with exercises. ?? Your doctor may ask you to make visits to the office to check on your progress. Be sure to keep these visits. ?? If you have stitches or cricket, you will need to have them taken out. Your doctor will often want to do this in 1 to 2 weeks. ?? You may need to keep doing therapy at an outpatient clinic. What drugs may be needed? The doctor may order drugs to: ?? Help with pain ?? Prevent blood clots ?? Prevent infection ?? Help with other problems you may have like trouble sleeping or hard stools Will physical activity be limited? ?? You will need to use a walker or crutches to help you walk. Follow your doctor's orders on how much weight you can put on the operated leg. This can range from no weight-bearing to full weight-bearing. ?? You may not be allowed to do certain hip movements right after the surgery. These can cause the hip joint to move out of the socket. Ask your doctor what movements are safe for you. Your doctor may suggest you follow these hip precautions: ? Do not bend your hip past 90 degrees. Take care so you don't lean forward while sitting or lying down. ? Keep your legs from turning in or out. ? Avoid crossing your legs or ankles. ? Avoid kneeling. Don't cross your legs at the knees for at least 8 weeks. ? Don't bring your knee up higher than your hip. ?? You will be able to do more as you get stronger. Your physical therapist can talk with you abouta walking program. Most often, you should limit stair climbing to one flight of stairs per day whenyou first return home. ?? Ask your doctor when you can have sex. Once your doctor tells you that it is OK, do not put fullweight on your hip joint. To keep stress off the joint, lie on your back and have your partner support his or her weight. What problems could happen? ?? Dislocation ? it is important to keep from doing some movements. These can cause the hip joint to move out of the socket. Ask your doctor what movements are safe for you. Your doctor may suggest you follow these hip precautions: ? Keep your legs from turning in or out. ? Avoid moving your operated leg backwards and out to the side. ? Avoid crossing your legs or ankles. ? Avoid taking long steps when walking. ? Avoid kneeling on your operated leg. If you have to kneel, then kneel on both knees so the operated hip is not pushed back. ? Avoid the straddling position. ?? Blood clot or DVT (deep vein thrombosis) ? To avoid these, your doctor may ask you to do ankle pumping exercises. Your doctor also may order blood thinning drugs or compression stockings. ?? Lung infection ? Taking deep breaths can help keep you from getting a lung infection. Take at least 10 deep breaths each hour while you are awake. ?? Infection ? Be sure to take all drugs as ordered. ?? Other problems during or after surgery may include broken bones, nerve or blood vessel damage, bleeding, the chance of the leg not being the same length as the other leg, or loosening of the prosthesis. When do I need to call the doctor? ?? Signs of a very bad reaction. These include wheezing; chest tightness; fever; itching; bad cough; blue skin color; seizures; or swelling of face, lips, tongue, or throat. Go to the ER right away. ?? Sudden shortness of breath or a sudden onset of chest pain could be a sign that a blood clot hastraveled to your lungs. Go to the ER right away. ?? Signs of infection. These include a fever of 100.4??F (38??C) or higher, chills, pain with passing urine, or wound that will not heal. ?? Signs of wound infection. These include swelling, redness, warmth around the wound; too much pain when touched; yellowish, greenish, or bloody discharge; foul smell coming from the cut site; cut site opens up. ?? More pain or swelling in your hip ?? You are not feeling better in 2 to 3 days or you are feeling worse Helpful tips ?? Tell your doctor or dentist that you have had a joint replacement before you have a procedure ortest. You may need to take a drug or some other precaution before your procedure or test. ?? For sleeping: ? If you sleep on your side, have your operated leg on the bottom. Use a pillow between your legs to keep them from crossing. ? Use a pillow between legs when rolling. ? If you lie on your back, put a pillow or rolled towel on either side of your operated leg. This may help keep it from rolling inward or outward. ?? For walking and moving about: ? If you step backwards, take small steps and start with the leg that didn't have surgery. ? When going up and down steps, always go up with your stronger leg first. When going down steps, lead with your operated leg. ? Do not turn or pivot using your operated leg. ? Carry a small bag, purse or use a vikram pack around your waist to keep things like phone numbers,phone, and notepad close by. ?? In the bathroom: ? A raised toilet seat in the bathroom can help you to get up and down easier. A grab bar may also help. ? For bathing, a grab bar and tub bench may be helpful. ?? Around the house: ? Sit in higher chairs with firm cushions. It will be easier to get up and down. Avoid low chairs and those without arms. ? When getting up from any surface, push up on the chair, bed, or toilet seat. Then, grab your walker once you are standing. Pulling up on the walker may cause it to tip and you to fall. ? Make sure all hand rails in your home are secure. ? Special tools can make your daily activities easier. You may want to use things like a firearms model maker, long-handled sponge, sock aid, or long-handled shoe horn. Teach Back: Helping You Understand The Teach Back Method helps you understand the information we are giving you. The idea is simple. After talking with the staff, tell them in your own words what you were just told. This helps to makesure the staff has covered each thing clearly. It also helps to explain things that may have been abit confusing. Before going home, make sure you are able to do these: ?? I can tell you about my procedure. ?? I can tell you how to care for my cut site. ?? I can tell you what may help ease my pain. ?? I can tell you what I will do if I have a fever, chills, redness around the cut site, or the wound breaks open. Where can I learn more? [place] [employer] https://orthoinfo.aaos.org/en/treatment/bmzki-bpf-vqnoiqrzftt/ National [place] of [employer]th[employer] and Mus[employer] and [employer] Disease https://www.niams.nih.gov/health-topics/xqj-bcedvqwjbjt-vpieeak NHS Choices https://www.nhs.uk/conditions/hip-replacement/ Last Reviewed Date 2018-06-18 Consumer Information Use and Disclaimer This information is not specific medical advice and does not replace information you receive from your health care provider. This is only a brief summary of general information. It does NOT include all information about conditions, illnesses, injuries, tests, procedures, treatments, therapies, discharge instructions or life-style choices that may apply to you. You must talk with your health care provider for complete information about your health and treatment options. This information should not be used to decide whether or not to accept your health care provider???s advice, instructions or recommendations. Only your health care provider has the knowledge and training to provide advice that is right for you. Copyright Copyright ?? 2020 [employer]. and its affiliates and/or licensors. All rights reserved. M CHEESE MAKER documented in this encounter Medications at Time [...] total) by mouth nightly at bedtime. 01/20/2020 venlafaxine XR 150 MG 24 hr capsule Take 1 capsule (150 mg total) by mouth every morning. 05/24/2020 ALPRAZolam 0.25 MG tablet Take 1 tablet by mouth every 8 (eight) hours as needed. 05/25/2020 01/16/2021 aspirin EC 325 MG tablet Take 1 tablet (325 mg total) by mouth 2 (two) times daily with meals for 41 days. Once complete with 325 mg twice a day and may resume home dose of 81 mg 82 tablet 08/14/2020 09/24/2020 EUTHYROX 125 MCG tablet Take 1 tablet (125 mcg total) by mouth daily. 07/15/2020 08/18/2023 furosemide 20 MG tablet Take 1 tablet (20 mg total) by mouth as needed. 01/14/2020 08/18/2023 HYDROcodone-acet aminophen 5-325 MG tabletIndication s:Acute Pain < 7 Day Supply Take 1-2 tablets by mouth every 4 (four) hours as needed for Pain. Indications: Acute Pain < 7 Day Supply 30 tablet 08/14/2020 11/06/2020 pregabalin (LYRICA) 100 MG capsule Take 2 capsules by mouth 2 (two) times a day. 02/09/2014 01/02/2021 propranolol LA 160 MG 24 hr capsule Take 1 capsule (160 mg total) by mouth daily. 05/11/2020 08/18/2023 spironolactone 100 MG tablet Take 1 tablet by mouth daily. 01/20/2020 10/09/2021 documented as of this encounter Progress Notes * Divien Maldonado RN - 08/14/2020 4:20 PM CST Patient is being discharged M CHEESE MAKER * Radha Ackerman PTA - 08/14/2020 3:56 PM CST 08/14/20 1332 Therapy Visit Ordering Provider Dr. Salmeron Subjective Pt sitting in chair upon entry and agrees to therapy so she can go home. Pt states that her pain is a 2 located in left hip pre treatment. Reason for admission s/p L ALEXUS Verified Two Patient Identifiers Yes Patient consents to therapy Yes Acute Inpatient PT Time Calculation PT Start Time 1332 PT Stop Time 1402 PT Time Calculation (min) 30 min Precautions Precautions Yes/No Yes Total Hip Replacement ADduction;Internal rotation;Flexion Pain Pain Yes Pain Score 2 Location L Hip Activity Tolerance Endurance Tolerates 20 - 30 min activity with rests TRANSFERS Sit to Stand SBA/supervision Bed to Chair SBA/supervision Other (Comment) Toileting x3 minutes with Independent pericare Gait Gait Assistance SBA/supervision Assistive Device 2 Wheeled walker Ambulation Distance (Feet) 160ft Pattern L Decreased stance time Stairs Stair Management Assistance SBA/supervision Stair Management Technique Two rails;Step to pattern Number of Stairs 5 Exercises Ankle Pumps B x20 Quad Sets B x20 Short Arc Quad L x20 Heelslides L x10 within hip precautions Straight Leg Raise L x10 assisted Glut Sets x20 Hip Abduction L x10 Sitting LE Exercise L x15 PT Assessment PT Assessment Pt able to increase ambulation with a step through gait pattern with a decrease stance time on L LE. Pt then able to ascend and descend stairs with bilateral hand rails without any safety concerns. Pt has a ramp at home. Pt then completed therapeutic strengthening exercises to be completed until beginning outpatient therapy in [place]. Pt is leaving this afternoon. Pt was positioned in chair with ice to left hip post treatment. Recommendation PT Recommendation Outpatient PT PT Equipment Recommended 2 Wheeled walker Plan PT Treatments/Interventions Gait Training;Therapeutic Exercises;Therapeutic Activities Progress Progressing toward goals PT Frequency BID If this is the last treatment note,it will serve as the discharge summary Yes End of Session Safety End of Session Safety Call light within reach;Nursing aware of session M CHEESE MAKER * Radha Ackerman PTA - 08/14/2020 3:56 PM CST Pt is adequate for discharge and will be attending outpatient therapy in [place]. M CHEESE MAKER * Radha Ackerman PTA - 08/14/2020 3:49 PM CST 08/14/20 0949 Therapy Visit Ordering Provider Dr. Salmeron Subjective Pt sitting up in bed upon arrival and agrees to therapy. Pt states that her pain is a 2 in left hip pre treatment and that she can feel her leg. Reason for admission s/p L ALEXUS Verified Two Patient Identifiers Yes Patient consents to therapy Yes Acute Inpatient PT Time Calculation PT Start Time 948 PT Stop Time 1021 PT Time Calculation (min) 32 min Precautions Precautions Yes/No Yes Total Hip Replacement ADduction;Internal rotation;Flexion Pain Pain Yes Pain Score 2 Location L hip Activity Tolerance Endurance Tolerates 20 - 30 min activity with rests Bed Mobility Supine to Sit Modified independence TRANSFERS Sit to Stand Contact guard assist Bed to Chair Contact guard assist Gait Gait Assistance Contact guard assist Assistive Device 2 Wheeled walker Ambulation Distance (Feet) 15ft and 20ft Pattern L Decreased stance time Balance Sitting - Static Independent Sitting - Dynamic Independent Standing - Static SBA;Support of both upper extremities;Support of one upper extremity Standing - Dynamic CGA;Support of one upper extremity;Support of both upper extremities PT Assessment PT Assessment Pt required no assistance getting out of bed this morning. Pt then able to ambulate to bathroom with FWW and CGA with decrease stance time on L LE with a step to gait pattern. Pt demonstrated no LOB during all balancing activities while bathing and getting dressed. Pt performed all ADL's within hip precautions. Pt was positioned back in chair with legs elevated and ice placed on left hip. Call light was positioned on patient's lap upon exiting. Recommendation PT Recommendation Outpatient PT PT Equipment Recommended 2 Wheeled walker Plan PT Treatments/Interventions Gait Training;Therapeutic Exercises;Therapeutic Activities Progress Progressing toward goals PT Frequency BID PT plan for next session stairs; increase ambulation End of Session Safety End of Session Safety Call light within reach;Nursing aware of session M CHEESE MAKER * Jennifer Pérez, OT - 08/14/2020 1:36 PM CST [facility] Occupational Therapy Inpatient Evaluation Time In: 948 Time Out: 1021 Total Evaluation Time: 32 minutes Ordering Physician: Dr. Salmeron Patient: Gilma Mills Location: Diagnosis: M16.12 Past Medical History: Diagnosis Date ??? Acid reflux ??? Depression with anxiety ??? Disease of thyroid gland ??? Fibromyalgia ??? Hypertension ??? Stroke (CMS/HCC) Pt had no symptoms 4 years ago. Past Surgical History: Procedure Laterality Date ??? ARTHROSCOPY SHOULDER ROTATOR CUFF REPAIR Right ??? FOOT SURGERY Right ??? HYSTERECTOMY ??? JOINT REPLACEMENT Bilateral ??? TOTAL KNEE ARTHROPLASTY Bilateral Subjective: Pain: 2/10 Pain Location: L hip Pt was sitting up in bed upon OTR arrival. Pt reporting that she can feel her leg and is doing well. PLOF: ADLs Bathing: Independent Toileting: Independent UB Dressing: Independent LB Dressing: Independent Feeding: Independent Grooming: Independent IADLS Meal Preparation: Independent Cleaning: Family Assist Laundry: Independent Working/Volunteering: No Driving: Independent Care of Others: No Functional Mobility & Transfers Bed Mobility: Independent Toilet Transfers: Independent Tub/Shower Transfers: Independent Patient has been completing functional mobility with 4 wheeled walker. Home Environment: House Levels: 1 Entrance: ramp Bathroom is equipped with walk in shower. Living arrangements - The patient lives with their spouse. Vision: WNL (wears glasses) Hearing: WNL Objective: Orientation Level: x 4 Affect: WNL Precautions/Restrictions: WBAT Hand Dominance: Right Upper Extremity R L Coordination WNL WNL Sensation WNL WNL ROM WNL WNL Calcine Furnace Loader Strength 4+/5 4+/5 Shoulder flexion 4+/5 4+/5 Shoulder abduction 4+/5 4+/5 Elbow flexion 4+/5 4+/5 Elbow extension 4+/5 4+/5 Transfers: Bed mobility/rolling: [place] Supine <> sit: [place] Sit <> stand: [place] Stand-pivot: [place] Toilet transfer: Supervision Assistive Device utilized during transfers: 2 wheeled walker ADLs Feeding: [place] Toileting: Supervision UB Dressing: [place] LB Dressing: Supervision Grooming: [place] Bathing: Supervision Activity performed this session: Self Care/Home management [id number]: Time: 15 Education: Pt educated about purpose and benefit of participation in occupational therapy. Assessment: Gilma Mills is a 70-year-old female who presents with a primary complaint of M16.12. (L ALEXUS) Pt is currently demonstrating decreased ability to complete ADLs and functional mobility. Pt will benefit from participation in skilled OT services to improve independence. Recommended Interventions: Self-Care Training Rehab Potential: Excellent Occupational Profile and History Complexity: Moderate (Expanded) Performance Skills Deficits: Low Performance Deficit Level: Low Clinical Decision Making: Low Evalualtion Complexity Level: Low OT Plan: Frequency: 5x/week Duration: 1 week Plan for next session: ADL and transfer training Anticipated Discharge at this time: Home Equipment Recommendations: 2 wheeled walker Safety at conclusion of Treatment: Upon OTR departure, pt sitting up in recliner, call light within reach, and all needs met. M CHEESE MAKER * Krystal Quigley RN - 08/14/2020 9:38 AM CST Pt lives at home with . Pt states that her will be able to help at home. She states she has daughters that will help too. Pt will need a walker at discharge, she plans to do OP therapyat [facility] in [place]. M CHEESE MAKER * Adele Garcia, CORPORATE SAFETY COORDINATOR-BC - 08/14/2020 8:16 AM CST Daily Progress Note Patient: Gilma Mills is a 70-year-old female : 1950 Surgery date: 08/13/2020 Procedure: LEFT Total Hip Arthroplasty: SUBJECTIVE She reports that her pain is good this morning and denies any numbness or tingling. OBJECTIVE Vital signs in the last 24 hours: Temp: [96.4 ??F (35.8 ??C)-98.1 ??F (36.7 ??C)] 97.2 ??F (36.2 ??C) Pulse: [56-90] 80 Resp: [12-20] 18 BP: (97-155)/(56-95) 116/65 Intake/Output last 3 shifts: I/O last 3 completed shifts: In: 3790 [P.O.:1340; I.V.:2250; IV Piggyback:200] Out: 2100 [Urine:1850; Blood:250] Intake/Output this shift: No intake/output data recorded. Examination: Constitutional: Alert and in no acute distress. Neurological: The patient was oriented to person, place, and time. EXAM of LEFT hip today reveals dressing clean dry and intact with mild swelling, quad is firing, neurovascularly intact. Labs and Cultures: Recent Results (from the past 24 hour(s)) HEMOGLOBIN AND HEMATOCRIT Collection Time: 08/14/20 4:50 AM Result Value Ref Range HGB 10.7 (L) 12.0 - 16.0 G/DL HCT 33.4 (L) 36.0 - 47.0 % Imaging: Results for the past 24 hours Xr Pelvis 1 Or 2 Views Result Date: 08/13/2020 IMPRESSION: Interval intraoperative left hip arthroplasty hardware placement and associated findings. Interpreted By: Makenna Grady MD, 08/13/2020 12:01 PM ASSESSMENT Patient Active Problem List Diagnosis ??? Obstructive sleep apnea ??? Post-nasal drip ??? Restless legs syndrome ??? Hypertension ??? Fibromyalgia ??? Daytime hypersomnia ??? Arthritis ??? Primary osteoarthritis of left hip ??? Status post total replacement of left hip PLAN: She has good pain control this morning and her numbness and tingling has resolved from the nerve block. She did have an expected decrease in hemoglobin from 13.3 to 10.7 due to acute blood loss anemia intra op and hemodilution but is hemodynamically stable. We will see how she mobilizes with her history of obesity she could struggle with mobilization. She has not been evaluated by OT since surgery so we will see how she does with PT and OT to day. Will continue with treatment plan of PT and OT to see for ambulation and ADLs. Will set her up with outpatient PT in [place] upon discharge. Signed MUKESH FRANK 08/14/2020 Cosigned by Gustavo Salmeron MD at 08/14/2020 2:45 PM CREAM CHEESE MAKER M CHEESE MAKER M CHEESE MAKER * Lori Richardson, PT - 08/13/2020 4:42 PM CST [facility] Therapy Inpatient Evaluation Time In: 1515 Time Out: 1526 Gilma Lina M16.12 Past Medical History: Diagnosis Date ??? Acid reflux ??? Depression with anxiety ??? Disease of thyroid gland ??? Fibromyalgia ??? Hypertension ??? Stroke (CMS/HCC) Pt had no symptoms 4 years ago. Past Surgical History: Procedure Laterality Date ??? ARTHROSCOPY SHOULDER ROTATOR CUFF REPAIR Right ??? FOOT SURGERY Right ??? HYSTERECTOMY ??? JOINT REPLACEMENT Bilateral ??? TOTAL KNEE ARTHROPLASTY Bilateral Subjective: Orientation: x 4 Pain: 0/10 Pain Location: NA Patient reports that she has no feeling in her legs. Home Environment: House, walk in shower Entrance: ramp Living arrangements - The patient lives with their spouse. Patient has been ambulatory with 2 wheeled walker Objective: Patient was in bed upon pt arrival. Observation:Very pleasant and cooperative Precautions/Restrictions: IV [place] Catheter Transfers: Bed mobility/rolling: [place] Supine to sit: Min A Sit to stand: Not Performed this Date Pivot: Not Performed this Date Education: Reviewed THR precautions Ambulation: NT secondary to lack of LE sensation Activity performed this session: Evaluation only this date. Assessment: Gilma Mills is a 70-year-old female who presents with a primary complaint of M16.12. Patient is demonstrating deficits in Balance, Mobility and Transfers leading to increased fall risk and decreased independence. Skilled therapy is appropriate [...] in Bed and Call Light in Reach M CHEESE MAKER documented in this encounter H&P Notes * Gustavo Salmeron MD - 08/13/2020 10:00 AM CST HISTORY AND PHYSICAL INTERVAL NOTE: [...] during recuperation were discussed with the patient/family/personal housing management representative. Reasonable alternatives to the patient's proposed procedure/surgery including benefits, risks, and side effects related to the alternatives and the risks related to not receiving the proposed care were also discussed with the patient/family/personal housing management representative. Questions were answered and the patient/family/personal housing management representative verbalized understanding and desires to proceed. M CHEESE MAKER Source Note - Gustavo Salmeron MD - 08/03/2020 11:15 AM CREAM CHEESE MAKER Chief Complaint: Hip Pain (LEFT ) History of Present Illness: Gilma Mills is a 70-year-old female who presents to the office for Hip Pain (LEFT ) Patient has been having LEFT hip pain for over 1 year. She states that she was Dr. Song at [facility] and was told that she could not [...] She has been taking Tylenol, ibuprofen, and Drift for pain relief. She does use a [...] file Gets together: Not on file Attends rastafari service: Not on file Active member of [...] up: Return for Post-Op. GUSTAVO SALMERON MD M CHEESE MAKER M CHEESE MAKER M CHEESE MAKER documented in this encounter OR Notes * Op Note - Gustavo Salmeron MD - 08/13/2020 1:04 PM CST Gilma Mills 1950 [id number] 08/13/2020 Preoperative Diagnosis: End-stage left hip osteoarthritis Postoperative Diagnosis: Same Procedure: left total hip arthroplasty using a DePuy [place] standard offset 7 stem with a +8 x 36 mm metal head in a 52 mm Mulberry shell using a +4/10 degree polyethylene liner Surgeon: GUSTAVO SALMERON MD [...] needle counts werecorrect x2 following the procedure M CHEESE MAKER * Brief Op Note - Gustavo Salmeron MD - 08/13/2020 1:03 PM CST [facility] Brief Op [facility] Total Hip Arthroplasty Outpatient Status Procedure Note Gilma Lina 08/13/2020 0943 Procedure(s) (LRB): LEFT Total Hip Arthroplasty Outpatient Status (Left) Surgeon(s): Gustavo Salmeron MD Shop Tech: [employer] Supervisor: DELICIA G[place] Anesthesia: Spinal Pre-Op Diagnosis: M16.12 Post-Op Diagnosis: Same Findings: Estimated Blood Loss: 400 Specimens: None GUSTAVO SALMERON MD Date: 08/13/2020 Time: 1:03 PM M CHEESE MAKER documented in this encounter Miscellaneous Notes * Quality Indicator-Admission - Krystal Quigley RN - 08/10/2020 10:48 AM CSTSummary: OP ALEXUS CM called patient to go over patient's OP status for her ALEXUS. 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 Pt has an extra set of clothes packed already but will need a walker upon discharge. Pt plans to do OP therapy at [facility] in [place]. M CHEESE MAKER documented in this encounter Plan of Treatment Not on file documented as of this encounter Procedures Procedure Name Priority Date/Time Associated Diagnosis Comments HEMOGLOBIN AND HEMATOCRIT Routine 08/14/2020 4:50 AM CREAM CHEESE MAKER XR PELVIS 1 OR 2 VIEWS Today 08/13/2020 11:58 AM CREAM CHEESE MAKER ARTHROPLASTY HIP TOTAL 08/13/2020 10:02 AM CREAM CHEESE MAKER M16.12 documented in this encounter Results * (ABNORMAL) HEMOGLOBIN AND HEMATOCRIT (08/14/2020 4:50 AM CREAM CHEESE MAKER) HGB 10.7(L) 12.0 - 16.0 G/DL 08/14/2020 5:33 AM CREAM CHEESE MAKER [facility] HCT 33.4(L) 36.0 - 47.0 % 08/14/2020 5:33 AM CREAM CHEESE MAKER [facility] 08/14/2020 4:50 AM CREAM CHEESE MAKER us Gustavo Salmeron MD LABORATORY Final Result [facility] [email or web address], * XR PELVIS 1 OR 2 VIEWS (08/13/2020 11:58 AM CREAM CHEESE MAKER) Anatomical Region Laterality Modality Pelvis Radiographic [place] ging 08/13/2020 12:0 1 PM CREAM CHEESE MAKER Impressions 08/13/2020 12:04 PM CREAM CHEESE MAKER IMPRESSION: Interval intraoperative left hip arthroplasty hardware placement and associated findings. Interpreted By: Makenna Grady MD, 08/13/2020 12:01 PM Narrative 08/13/2020 12:04 PM CREAM CHEESE MAKER EXAMINATION: ??INTRAOPERATIVE PELVIS RADIOGRAPH(S) INDICATION: Intraoperative evaluation, left total hip arthroplasty TECHNIQUE: ??Single crosstable view. COMPARISON: Pelvis and left hip radiographs 08/03/2020 FINDINGS: There has been interval placement left hip arthroplasty hardware with expected postoperative bone deformity in this region along with superimposed air. Hardware alignment appears in satisfactory position. Additional metallic devices projecting over the lower central pelvis and right pelvis. Some pelvic phleboliths, osteopenia, degenerative changes again noted. Procedure Note Makenna Grady MD - 08/13/2020 EXAMINATION: INTRAOPERATIVE PELVIS RADIOGRAPH(S) INDICATION: Intraoperative evaluation, left total hip arthroplasty TECHNIQUE: Single crosstable view. COMPARISON: Pelvis and left hip radiographs 08/03/2020 FINDINGS: There has been interval placement left hip arthroplastyhardware with expected postoperative bone deformity in this region along with superimposed air. Hardware alignment appears in satisfactory position. Additional metallic devices projecting over the lower central pelvis and right pelvis. Some pelvic phleboliths, osteopenia, degenerative changes again noted. IMPRESSION: Interval intraoperative left hip arthroplasty hardware placement and associated findings. Interpreted By: Makenna Grady MD, 08/13/2020 12:01 PM Gustavo Salmeron MD GENERAL IMAGING Final Result documented in this encounter Visit Diagnoses Not on filedocumented in this encounter Administered Medications Inactive Administered Medications - up to 3 most recent administrations Medication Order MAR Action Action Date Dose Rate Site acetaminophen (TYLENOL) 500 MG tablet 1 dose, Starting on Thu08/13/20 at 0751, Until Thu08/13/20 at 0828, Created by cabinet override acetaminophen (TYLENOL) tablet 500 mg 500 mg, Oral, Once, 1 dose, On Thu08/13/20 at 0845, Maximum dose of acetaminophen is 4000 mg from all sources in 24 hours., Pre-Op Given 08/13/2020 8:28 AM CREAM CHEESE MAKER 500 mg aspirin EC (ECOTRIN) tablet 325 mg 325 mg, Oral, 2 times daily with meals, First dose on Thu08/14/20 at 0800, Until Discontinued, Start the morning after surgery Do not break, chew, or crush., Post-Op Given 08/14/2020 8:29 AM CREAM CHEESE MAKER 325 mg ceFAZolin (ANCEF) 3 g in NS 100 mL IVPB 3 g, Intravenous, at 200 mL/hr, Every 8 hours, 2 doses, First dose on Thu08/13/20 at 1800, Last dose on Thu08/14/20 at 0200, Give 3 gram dose for patients 120 kg and greater. PHARMACY TO ADJUST administration times based on pre-op/intra-op dose. Do NOT continue greater than 24 hours after anesthesia end time., Post-Op New Bag 08/14/2020 2:06 AM CREAM CHEESE MAKER 3 g 200 mL/hr New Bag 08/13/2020 5:45 PM CREAM CHEESE MAKER 3 g 200 mL/hr celecoxib (CeleBREX) 100 MG capsule 1 dose, Starting on Thu08/13/20 at 0751, Until Thu08/13/20 at 0828, Created by cabinet override celecoxib (CeleBREX) capsule 100 mg 100 mg, Oral, Once, 1 dose, On Thu08/13/20 at 0845, Do not administer with antacids, Pre-Op Given 08/13/2020 8:28 AM CREAM CHEESE MAKER 100 mg chlorhexidine (PERIDEX) 0.12 % solution 15 mL 15 mL, Mouth/Throat, Once, 1 dose, On Thu08/13/20 at 0845, Patient to perform oral care first. Swish/gargle in mouth for 30 seconds, and then discard prior to going to surgery. If ventilated use saturated swab to clean oral cavity., Pre-Op Given 08/13/2020 8:28 AM CREAM CHEESE MAKER 15 mLs docusate sodium (COLACE) capsule 100 mg 100 mg, Oral, Daily, First dose on Thu08/13/20 at 1430, Until Discontinued, Post-Op Given 08/14/2020 8:3 2 AM CREAM CHEESE MAKER 100 mg famotidine (PEPCID) injection 20 mg 20 mg, Intravenous, Every 12 hours scheduled, First dose on Thu08/13/20 at 2100, Until Discontinued, Give if unable to take PO. IV Push over 2 minutes, Post-Op famotidine (PEPCID) tablet 20 mg 20 mg, Oral, Every 12 hours scheduled, First dose on Thu08/13/20 at 2100, Until Discontinued, Post-Op Given 08/14/2020 8:32 AM CREAM CHEESE MAKER 20 mg Given 08/13/2020 9:09 PM CREAM CHEESE MAKER 20 mg HYDROcodone-acetaminophen (NORCO) 10-325 MG tablet 1 tablet 1 tablet, Oral, Every 4 hours PRN, Moderate pain (Scale 4 - 7), Starting on Thu08/13/20 at 1407, Until Thu08/14/20 at 1841, Maximum dose of acetaminophen is 4000 mg from all sources in 24 hours., Post-Op Given 08/14/2020 3:52 PM CREAM CHEESE MAKER 1 tablet Given 08/14/2020 8:29 AM CREAM CHEESE MAKER 1 tablet Given 08/13/2020 9:18 PM CREAM CHEESE MAKER 1 tablet lactated ringers infusion at 10 mL/hr, Intravenous, Continuous, Starting on Thu08/13/20 at 0845, Until Thu08/14/20 at 0736, Infuse at TKO rate, Pre-Op New Bag 08/13/2020 12:10 PM CREAM CHEESE MAKER New Bag 08/13/2020 8:39 AM CREAM CHEESE MAKER 10 mL/hr lactated ringers infusion at 75 mL/hr, Intravenous, Continuous, Starting on Thu08/13/20 at 1430, Until Thu08/14/20 at 0736, May discontinue IV Fluid when adequate oral intake, Post-Op New Bag 08/13/2020 11:47 PM CREAM CHEESE MAKER 75 mL/hr levothyroxine (SYNTHROID) tablet 125 mcg 125 mcg, Oral, Daily, First dose on Thu08/13/20 at 1430, Until Discontinued, Avoid iron, calcium, and antacids within 4 hours of administration. Given 08/14/2020 8:30 AM CREAM CHEESE MAKER 125 mcg propranolol LA (INDERAL LA) 24 hr capsule 160 mg 160 mg, Oral, Nightly at bedtime, First dose on Thu08/14/20 at 2100, Until Discontinued, Swallow capsule whole. Do not open, chew, or crush. sodium chloride 0.9 % 3,000 mL with gentamicin 320 mg irrigation As needed, Starting on Thu08/13/20 at 1107, Until Thu08/13/20 at 1306, Intra-Op Given 08/13/2020 11:07 AM CREAM CHEESE MAKER 2,500 mLs spironolactone (ALDACTONE) tablet 100 mg 100 mg, Oral, Nightly at bedtime, First dose on Thu08/14/20 at 2100, Until Discontinued venlafaxine XR (EFFEXOR-XR) 24 hr capsule 150 mg 150 mg, Oral, Nightly at bedtime, First dose on Thu08/14/20 at 2100, Until Discontinued, Swallow capsule whole or it may be opened and the contents sprinkled on applesauce. documented in this encounter Active and Recently Administered Medications Times are shown in CREAM CHEESE MAKER. Scheduled Medication Order 08/12/2020 08/13/2020 08/14/2020 acetaminophen (TYLENOL) tablet 500 mg (COMPLETED) 500 mg, Oral, Once, 1 dose, On Thu08/13/20 at 0845, Maximum dose of acetaminophen is 4000 mg from all sources in 24 hours., Pre-Op 08 (Given - Provider: Dayami Ngo RN) aspirin EC (ECOTRIN) tablet 325 mg 325 mg, Oral, 2 times daily with meals, First dose on Thu08/14/20 at 0800, Until Discontinued, Start the morning after surgery Do not break, chew, or crush., Post-Op 08 (Given - Provid er: Divine Maldonado RN)1700 (Canceled Entry - Provider: Automatic Discharge Provider - Comment: Automatically canceled at discontinue of medication order) ceFAZolin (ANCEF) 3 g in NS 100 mL IVPB (COMPLETED)(Linked Group 1) 3 g, Intravenous, at 200 mL/hr, college or university department head, 1 dose, On Thu08/13/20 at 0845, Give 3 gram dose for patients 120 kg and greater. Give within 60 minutes of surgical incision., Pre-Op 1008 (Given - Provider: Debora Flores CRNA)1023 (Infusion Stop Time - Provider: Debora Flores CRNA)1311 (Anesthesia Volume Adjustment - Provider: Debora Flores CRNA) ceFAZolin (ANCEF) 3 g in NS 100 mL IVPB (COMPLETED)(Linked Group 2) 3 g, Intravenous, at 200 mL/hr, Every 8 hours, 2 doses, First dose on Thu08/13/20 at 1800, Last dose on Thu08/14/20 at 0200, Give 3 gram dose for patients 120 kg and greater. PHARMACY TO ADJUST administration times based on pre-op/intra-op dose. Do NOT continue greater than 24 hours after anesthesia end time., Post-Op 1745 (New Bag - Provider: Kim Pemberton RN)1900 (Infusion Stop Time - Provider: Jenny Frost RN) 0206 (New Bag - Provider: Jenny Frost RN)0240 (Infusion Stop Time - Provider: Jenny Frost RN) celecoxib (CeleBREX) capsule 100 mg (COMPLETED) 100 mg, Oral, Once, 1 dose, On Thu08/13/20 at 0845, Do not administer with antacids, Pre-Op 0828 (Given - Provider: Dayami Ngo RN) chlorhexidine (PERIDEX) 0.12 % solution 15 mL (COMPLETED) 15 mL, Mouth/Throat, Once, 1 dose, On Thu08/13/20 at 0845, Patient to perform oral care first. Swish/gargle in mouth for 30 seconds, and then discard prior to going to surgery. If ventilated use saturated swab to clean oral cavity., Pre-Op 0828 (Given - Provider: Dayami Ngo RN) docusate sodium (COLACE) capsule 100 mg 100 mg, Oral, Daily, First dose on Thu08/13/20 at 1430, Until Discontinued, Post-Op 1653 (Not Given - Provider: Kim Pemberton RN - Reason: Patient/family declined) 0832 (Given - Provider: Divine Maldonado RN) ezetimibe (ZETIA) tablet 10 mg 10 mg, Oral, Daily, First dose on Thu08/13/20 at 1430, Until Discontinued 1650 (Not Given - Provider: Kim Pemberton RN - Reason: Patient/family declined) 0832 (Not Given - Provider: Divine Maldonado RN - Reason: Patient/family declined) famotidine (PEPCID) injection 20 mg(Linked Group 3) 20 mg, Intravenous, Every 12 hours scheduled, First dose on Thu08/13/20 at 2100, Until Discontinued, Give if unable to take PO. IV Push over 2 minutes, Post-Op 2108 (See Alternative - Provider: Jenny Frost RN) 0832 (See Alternative - Provider: Divine Maldonado, PRITI) famotidine (PEPCID) tablet 20 mg(Linked Group 3) 20 mg, Oral, Every 12 hours scheduled, First dose on Thu08/13/20 at 2100, Until Discontinued, Post-Op 2108 (Given - Provider: Jenny Frost RN) 0832 (Given - Provider: Divine Maldonado RN) furosemide (LASIX) tablet 40 mg 40 mg, Oral, Daily, First dose on Thu08/13/20 at 1430, Until Discontinued 1650 (Not Given - Provider: Kim Pemberton RN - Reason: Patient/family declined) 0833 (Not Given - Provider: Divine Maldonado RN - Reason: Patient/family declined) levothyroxine (SYNTHROID) tablet 125 mcg 125 mcg, Oral, Daily, First dose on Thu08/13/20 at 1430, Until Discontinued, Avoid iron, calcium, and antacids within 4 hours of administration. 1650 (Not Given - Provider: Kim Pemberton RN - Reason: Patient/family declined) 0830 (Given - Provider: Divine Maldonado, RN) nortriptyline (PAMELOR) capsule 25 mg 25 mg, Oral, Nightly at bedtime, First dose on Thu08/13/20 at 2100, Until Discontinued 2109 (Not Given - Provider: Jenny Frost RN - Reason: Patient/family declined - Comment: home med) pantoprazole EC (PROTONIX) tablet 40 mg 40 mg, Oral, Daily, First dose on Thu08/13/20 at 1430, Until Discontinued, Do not break, chew, or crush. 1651 (Not Given - Provider: Kim Pemberton RN - Reason: Patient/family declined) 0833 (Not Given - Provider: Divine Maldonado, PRITI - Reason: Patient/family declined) pregabalin (LYRICA) capsule 200 mg 200 mg, Oral, 2 times daily, First dose on Thu08/13/20 at 1430, Until Discontinued 1651 (Not Given - Provider: Kim Pemberton RN - Reason: Patient/family declined)2109 (Not Given - Provider: Jenny Frost RN - Reason: Patient/family declined) 0834 (Not Given - Provider: Divine Maldonado RN - Reason: Patient/family declined) propranolol LA (INDERAL LA) 24 hr capsule 160 mg 160 mg, Oral, Nightly at bedtime, First dose on Thu08/14/20 at 2100, Until Discontinued, Swallow capsule whole. Do not open, chew, or crush. rOPINIRole (REQUIP) tablet 4 mg 4 mg, Oral, Nightly at bedtime, First dose on Thu08/13/20 at 2100, Until Discontinued 2110 (Not Given - Provider: Jenny Frost RN - Reason: Patient/family declined) spironolactone (ALDACTONE) tablet 100 mg 100 mg, Oral, Nightly at bedtime, First dose on Thu08/14/20 at 2100, Until Discontinued tranexamic acid (CYKLOKAPRON) injection 1,000 mg (COMPLETED) 1,000 mg, Intravenous, Once, 1 dose, On Thu08/13/20 at 0845, PHARMACIST TO ADJUST dose based on SCr (SCr less than 1.6 = 1,000 mg; SCr 1.6-3.3 = 750 mg; SCr 3.4-6.6 = 500 mg; SCr greater than 6.6 = 250 mg). Administer dose over 15 minutes prior to incision., Pre-Op 1046 (Given - Provider: Debora Flores CRNA) venlafaxine XR (EFFEXOR-XR) 24 hr capsule 150 mg 150 mg, Oral, Nightly at bedtime, First dose on Thu08/14/20 at 2100, Until Discontinued, Swallow capsule whole or it may be opened and the contents sprinkled on applesauce. Continuous Medication Order 08/12/2020 08/13/2020 08/14/2020 lactated ringers infusion (CANCELED) at 10 mL/hr, Intravenous, Continuous, Starting on Thu08/13/20 at 0845, Until Thu08/14/20 at 0736, Infuse at TKO rate, Pre-Op 0839 (New Bag - Provider: Dayami Ngo RN)1210 (New Bag - Provider: Debora Flores CRNA)1304 (Anesthesia Volume Adjustment - Provider: Debora Flores CRNA) 0935 (Infusion Stop Time - Provider: Divine Maldonado, PRITI) lactated ringers infusion (CANCELED) at 75 mL/hr, Intravenous, Continuous, Starting on Thu08/13/20 at 1430, Until Thu08/14/20 at 0736, May discontinue IV Fluid when adequate oral intake, Post-Op 2347 (New Bag - Provider: Jenny Frost RN) 0815 (Infusion Stop Time - Provider: Divine Maldonado RN) PRN Medication Order 08/12/2020 08/13/2020 08/14/2020 ALPRAZolam (XANAX) tablet 0.25 mg 0.25 mg, Oral, Every 8 hours PRN, Anxiety, Starting on Thu08/13/20 at 1407, Until Thu08/14/20 at 1841 bisacodyl EC (DULCOLAX) tablet 5 mg 5 mg, Oral, Daily as needed, Constipation, Starting on Thu08/13/20 at 1407, Until Thu08/14/20 at 1841, Do not break, chew, or crush., Post-Op HYDROcodone-acetaminophen (NORCO) 10-325 MG tablet 1 tablet 1 tablet, Oral, Every 4 hours PRN, Moderate pain (Scale 4 - 7), Starting on Thu08/13/20 at 1407, Until Thu08/14/20 at 1841, Maximum dose of acetaminophen is 4000 mg from all sources in 24 hours., Post-Op 2118 (Given - Provider: Jenny Frost RN) 0829 (Given - Provider: Divine Maldonado, PRITI)1552 (Given - Provider: Divine Maldonado, PRITI) HYDROcodone-acetaminophen (NORCO) 5-325 MG tablet 1 tablet 1 tablet, Oral, Every 4 hours PRN, Mild pain (Scale 1 - 3), Starting on Thu08/13/20 at 1407, Until Thu08/14/20 at 1841, Maximum dose of acetaminophen is 4000 mg from all sources in 24 hours., Post-Op HYDROcodone-acetaminophen (NORCO) 5-325 MG tablet 1 tablet 1 tablet, Oral, Every 4 hours PRN, Other, Anticipatory pain, Starting on Thu08/13/20 at 1407, Until Thu08/14/20 at 1841, Administer 30 minutes prior to physical/occupational therapy if needed for anticipatory pain, Post-Op morphine injection 4 mg 4 mg, Intravenous, Every 2 hours PRN, Other, Breakthrough Pain, Starting on Thu08/13/20 at 1407, Until Thu08/14/20 at 1406, Post-Op ondansetron (ZOFRAN) injection 4 mg 4 mg, Intravenous, Every 8 hours PRN, Nausea, Vomiting, Starting on Thu08/13/20 at 1407, Until Thu08/14/20 at 1841, IV push over 2-5 minutes., Post-Op polyethylene glycol (GLYCOLAX) packet 17 g 17 g, Oral, Daily as needed, Constipation, Starting on Thu08/13/20 at 1407, Until Thu08/14/20 at 1841, Post-Op Senna (SENOKOT) 8.6 MG tablet 8.6 mg 8.6 mg, Oral, Daily as needed, Constipation, Starting on Thu08/13/20 at 1407, Until Thu08/14/20 at 1841, Post-Op sodium chloride 0.9 % 3,000 mL with gentamicin 320 mg irrigation (CANCELED) As needed, Starting on Thu08/13/20 at 1107, Until Thu08/13/20 at 1306, Intra-Op 1107 (Given - Provider: Gustavo Salmeron MD) Linked Groups Order Group 1: ceFAZolin (ANCEF) 2 g in NS 100 mL IVPB (CANCELED) 2 g, Intravenous, at 200 mL/hr, college or university department head, 1 dose, On Thu08/13/20 at 0845, Give 2 gram dose for patients less than 120 kg. Give within 60 minutes of surgical incision., Pre-Op Or ceFAZolin (ANCEF) 3 g in NS 100 mL IVPB (COMPLETED)Jump to med 3 g, Intravenous, at 200 mL/hr, college or university department head, 1 dose, On Thu08/13/20 at 0845, Give 3 gram dose for patients 120 kg and greater. Give within 60 minutes of surgical incision., Pre-Op Group 2: ceFAZolin (ANCEF) 2 g in NS 100 mL IVPB (CANCELED) 2 g, Intravenous, at 200 mL/hr, Every 8 hours, 2 doses, First dose on Thu08/13/20 at 1430, Last dose on Thu08/13/20 at 2230, Give 2 gram dose for patients less than 120 kg. PHARMACY TO ADJUST administration times based on pre-op/intra-op dose. Do NOT continue greater than 24 hours after anesthesia end time., Post-Op Or ceFAZolin (ANCEF) 3 g in NS 100 mL IVPB (COMPLETED)Jump to med 3 g, Intravenous, at 200 mL/hr, Every 8 hours, 2 doses, First dose on Thu08/13/20 at 1800, Last dose on Thu08/14/20 at 0200, Give 3 gram dose for patients 120 kg and greater. PHARMACY TO ADJUST administration times based on pre-op/intra-op dose. Do NOT continue greater than 24 hours after anesthesia end time., Post-Op Group 3: famotidine (PEPCID) injection 20 mgJump to med 20 mg, Intravenous, Every 12 hours scheduled, First dose on Thu08/13/20 at 2100, Until Discontinued, Give if unable to take PO. IV Push over 2 minutes, Post-Op Or famotidine (PEPCID) tablet 20 mgJump to med 20 mg, Oral, Every 12 hours scheduled, First dose on Thu08/13/20 at 2100, Until Discontinued, Post-Op documented in this encounter Care Teams Carpet Sewer Relationship Specialty Start Date End Date Stella Obrien MD [address] [place] [address] PCP - General INTERNAL MEDICINE 08/02/20 documented as of this encounter
--- OUTSIDE RECORDS SUMMARY | 2024-09-13 06:35 | XMS_ITS | Encounter Summary ---
Author Organization [facility] Address [facility] [place] [place] [address] [place] [address] Care Team Providers Care Sports Writer Name Role Phone Sebastien Sequeira MD Primary Care Provider [phone] Encounter Details Date Type Department Care Team (Latest Contact Info) Description 11/06/2020 11:12 AM STEM SETTER - 11/06/2020 11:59 PM STEM SETTER Hospital Encounter [address] [place] [address] Gustavo So MD [address] [place], [place] [id number] Discharge Disposition: Home or Self Care (Routine [...] COVID-19? No / Unsure 11/06/2020 10:15 AM STEM SETTER documented as of this encounter Medications at [...] 8 (eight) hours as needed. 05/25/2020 01/16/2021 EUTHYROX 125 MCG tablet Take 1 tablet (125 mcg total) by mouth daily. 07/15/2020 08/18/2023 furosemide 20 MG tablet Take 1 tablet (20 mg total) by mouth as needed. 01/14/2020 08/18/2023 pregabalin (LYRICA) 100 MG capsule Take 2 [...] Procedure Name Priority Date/Time Associated Diagnosis Comments MRSA SCREENING Routine 11/06/2020 11:24 AM STEM SETTER Primary osteoarthritis of right hip Chronic hip pain, right BASIC METABOLIC PANEL Routine 11/06/2020 11:23 AM STEM SETTER Primary osteoarthritis of right hip Chronic hip pain, right CBC W/DIFF AUTOMATED Routine 11/06/2020 11:23 AM STEM SETTER Primary osteoarthritis of right hip Chronic hip pain, right documented in this encounter Results * MRSA SCREENING (11/06/2020 11:24 AM STEM SETTER) SPEC DESCRIPTION NASAL 11/06/2020 11:20 AM [facility] SPECIAL REQUESTS NO SPECIAL REQUEST 11/06/2020 11:20 AM [facility] RESULT Negative by Rapid PCR for Methicillin Resistant Staphylococcus aureus 11/06/2020 5:22 PM [facility] SPECIMEN FROM INTERNAL NOSE / Unknown 11/06/2020 11:24 AM STEM SETTER 11/06/2020 11:26 AM STEM SETTER Gustavo So MD MICROBIOLOGY - GENERAL ORDERAB LES Final Result [facility] [address] [place] [address], [place] [phone] [facility] [address] [place] [address], [place] [phone] * (ABNORMAL) CBC W/DIFF AUTOMATED (11/06/2020 11:23 AM STEM SETTER) WBC 6.8 4.5 - 10.8 x10'3/uL 11/06/2020 11:29 AM STEM SETTER [facility] RBC 4.77 4.10 - 5.40 x10'6/uL 11/06/2020 11:29 AM [facility] HGB 13.1 12.0 - 16.0 G/DL 11/06/2020 11:29 AM [facility] HCT 42.2 36.0 - 47.0 % 11/06/2020 11:29 AM [facility] MCV 88.5 78.0 - 100.0 FL 11/06/2020 11:29 AM [facility] MCH 27.5 27.0 - 31.0 PG 11/06/2020 11:29 AM [facility] MCHC 31.0(L) 33.0 - 36.0 G/DL 11/06/2020 11:29 AM [facility] RDW 13.2 11.5 - 14.5 % 11/06/2020 11:29 AM [facility] PLT 292 150 - 350 x10'3/uL 11/06/2020 11:29 AM [facility] MPV 8.8 7.4 - 10.4 FL 11/06/2020 11:29 AM [facility] DIFFERENTIAL COMMENT NORMAL REFERENCE RANGE NOT ESTABLISHED FOR THE PROPORTIONAL LEUKOCYTE DIFFERENTIAL. 11/06/2020 11:29 AM [facility] SEG NEUTROPHILS 52.7 % 11:29 AM [facility] LYMPHOCYTES 30.7 % 11/06/2020 11:29 AM [facility] MONOCYTES 8.4 % 11/06/2020 11:29 AM [facility] EOSINOPHILS 7.2 % 11/06/2020 11:29 AM [facility] BASOPHILS 0.7 % 11/06/2020 11:29 AM [facility] IMMATURE GRANS % 0.3 % 11/06/19 11:29 AM [facility] NRBC 0.0 % 11/06/2020 11:29 AM [facility] ABS. NEUTROPHILS 3.59 1.60 - 8.30 x10'3/uL 11/06/2020 11:29 AM [facility] ABS. LYMPHOCYTES 2.09 0.80 - 4.70 x10'3/uL 11/06/2020 11:29 AM [facility] ABS. MONOCYTES 0.57 0.00 - 1.50 x10'3/uL 11/06/2020 11:29 AM [facility] ABS. EOSINOPHILS 0.49(H) 0.00 - 0.40 x10'3/uL 11/06/2020 11:29 AM [facility] ABS. BASOPHILS 0.05 0.00 - 0.20 x10'3/uL 11/06/2020 11:29 AM [facility] ABS. IMMATURE GRANULOCYTES 0.02 0.00 - 0.03 x10'3/uL 11/06/2020 11:29 AM [facility] ABS. NUCLEATED RBC'S 0.00 0.00 x10'3/uL 11/06/2020 11:29 AM [facility] 11/06/2020 11:2 3 AM [facility] Gustavo So MD LABORATORY Final Result [facility] [address] [place] [address], * (ABNORMAL) BASIC METABOLIC PANEL (11/06/2020 11:23 AM STEM SETTER) SODIUM S/P/B 140 136 - 145 MMOL/L 11/06/2020 11:46 AM [facility] POTASSIUM S/P/B 4.3 3.5 - 5.1 MMOL/L 11/06/2020 11:46 AM [facility] CHLORIDE S/P/B 102 98 - 107 MMOL/L 11/06/2020 11:46 AM [facility] CO2 27.4 21.0 - 32.0 MMOL/L 11/06/2020 11:46 AM [facility] GLUCOSE 98 70 - 99 MG/DL 11/06/2020 11:46 AM [facility] Comment: FASTING GLUCOSE 100 TO 125 MG/DL IS CONSISTENT WITH IMPAIRED FASTING GLUCOSE. FASTING GLUCOSE >125 MG/DL IS CONSISTENT WITH DIABETES. RANDOM GLUCOSE >200 MG/DL WITH HYPERGLYCEMIC SYMPTOMS IS CONSISTENT WITH DIABETES. PER ADA GUIDELINES BUN 9 6 - 24 MG/DL 11/06/2020 11:46 AM [facility] CREATININE S/P/B 1.03(H) 0.55 - 1.02 MG/DL 11/06/2020 11:46 AM STEM SETTER [facility] CALCIUM S/P/B 9.4 8.4 - 10.5 MG/DL 11/06/2020 11:46 AM [facility] ANION GAP 10.6 5.0 - 15.0 MMOL/L 11/06/2020 11:46 AM STEM SETTER [facility] OSMOLALITY (CALC) 289 MOSM/KG 021 11:46 AM STEM SETTER [facility] Comment:REFERENCE RANGE NOT ESTABLISHED EGFR NON-AFR. AMER. 55(L) >89 ML/MIN/1. 73 M2 11/06/2020 11:46 AM STEM SETTER [facility] EGFR AFR. AMER. 64(L) >89 ML/MIN/1. 73 M2 11/06/2020 11:46 AM STEM SETTER [facility] GFR NOTES GFR REFERENCE S: 11/06/2020 11:46 AM [facility] Comment: THE ESTIMATED GFR IS [...] ml/min/1.73 m2 G5,KIDNEY FAILURE: <15 ml/min/1.73 m2 11/06/2020 11:2 3 AM STEM SETTER us Gustavo So MD LABORATORY Final Result [facility] [address] [place] [address], documented in this encounter Visit Diagnoses Diagnosis Primary osteoarthritis of right hip Primary localized osteoarthrosis, pelvic region and thigh Chronic hip pain, right documented in this encounter Care Teams Sports Writer Relationship Specialty Start Date End Date Sebastien Sequeira MD [address] [place] [address] PCP - General INTERNAL MEDICINE 08/02/20 documented as of this encounter
--- OUTSIDE RECORDS SUMMARY | 2024-09-13 06:35 | XMS_ITS | Encounter Summary ---
Author Organization [facility] Address [address] [place] [address]. [place], [place] [id number] [place] [address] Care Team Providers Care Advertising Associate Name Role Phone Unavailable Primary Care Provider Unavailabl e Encounter Details Date Type Department Care Team (Latest Contact Info) Description 10/12/2013 Abstract [facility] [...]
--- OUTSIDE RECORDS SUMMARY | 2024-09-13 06:35 | XMS_ITS | Encounter Summary ---
Author Organization [facility] Address [facility]6 [facility] [place], [place] [address] [place] [id number] Care Team Providers Care Inspector Conveyor Line Name Role Phone Unavailable Primary Care Provider Unavailabl e Encounter Details Date Type Department Care Team (Latest Contact Info) Description 08/28/2014 Abstract [facility] Jenna Yusuf MD [address] [facility] [address] [place] [address] Social History Tobacco Use Types Packs/Day Years [...]
--- OUTSIDE RECORDS SUMMARY | 2024-09-13 06:35 | XMS_ITS | Encounter Summary ---
Author Organization [facility] Address [facility]6 [facility] [place] [address] [place] [address] Care Team Providers Care Prosthetic Assistant Name Role Phone Unavailable Primary Care Provider Unavailabl e Encounter Details Date Type Department Care Team (Late st Contact Info) Description 08/01/2020 Orders Only [facility] [place] [id number] Minerva Hendrickson RN Social History Tobacco Use Types Packs/Day Years Used Date Smoking Tobacco: Never Assessed Comments Unknown Sex and Gender Information Value Date Recorded Sex Assigned at Not on file Legal Sex Female 2:03 AM CDT Gender Identity Not on file Sexual Orientation Not on file documented as of this encounter Plan of Treatment Not on file documented as of this encounter Results * XR PELVIS AP+LT HIP 1V (08/03/2020 11:36 AM DIE DRAWING CHECKER) Anatomical Region Laterality Modality Pelvis, Hip Radiographic Charlotte ging 08/03/2020 2:13 PM DIE DRAWING CHECKER Impressions 08/03/2020 2:17 PM DIE DRAWING CHECKER IMPRESSION: No acute findings. Stable degenerative changes as described. Interpreted By: Aki Adams MD, 08/03/2020 2:13 PM Narrative 08/03/2020 2:17 PM DIE DRAWING CHECKER Examination: Pelvis and left hip. Exam time: 1058 hours. Clinical history: Left hip pain. Comparison: AP pelvis, 07/18/2020 ([facility]). Technique: Weightbearing AP pelvis centered for the hips and weightbearing frog lateral left hip. Findings: No fracture, dislocation or other acute bony abnormality is identified. Severe degenerative changes on the left are again evident with obliteration of the joint space, subchondral sclerosis and cyst formation and periarticular osteophyte formation. There are stable marked degenerative changes on the right manifested by joint space narrowing and periarticular osteophyte formation. No other significant bone or joint abnormality is noted. Pelvic phleboliths again evident. Procedure Note Aki Adams MD - 08/03/2020 Examination: Pelvis and left hip. Exam time: 1058 hours. Clinical history: Left hip pain. Comparison: AP pelvis, 07/18/2020 ([facility]). Technique: Weightbearing AP pelvis centered for the hips andweightbearing frog lateral left hip. Findings: No fracture, dislocation or other acute bony abnormality is identified. Severe degenerative changes on the left are again evidentwith obliteration of the joint space, subchondral sclerosis and cystformation and periarticular osteophyte formation. There are stable marked degenerative changes on the right manifested by joint space narrowingand periarticular osteophyte formation. No other significant bone or joint abnormality is noted. Pelvic phleboliths again evident. IMPRESSION: No acute findings. Stable degenerative changes as described. Interpreted By: Aki Adams MD, 08/03/2020 2:13 PM Gustavo So MD GENERAL IMAGING Final Result documented in this encounter Visit Diagnoses Diagnosis Left hip pain- Primary Pain in joint, pelvic region and thigh Left hip pain Pain in joint, pelvic region and thigh documented in this encounter
--- OUTSIDE RECORDS SUMMARY | 2024-09-13 06:35 | XMS_ITS | Encounter Summary ---
Author Organization [facility] Address [address] [place] [address]. [place] [address] [place] [address] Care Team Providers Care Skoog Operator Name Role Phone Sebastien Sequeira MD Primary Care Provider [phone] Encounter Details Date Type Department Care Team (Latest Contact Info) Description 08/07/2020 9:25 AM MANAGER SHAREPOINT - 08/07/2020 9:27 AM MANAGER SHAREPOINT Hospital Encounter [address] [place] [address] Gustavo So MD [address] [place] [address] Discharge Disposition: Home or Self Care (Routine [...] Coronavirus / COVID-19? No / Unsure 08/07/2020 9:27 AM MANAGER SHAREPOINT documented as of this encounter Medications at [...] hours as needed. 05/25/2020 01/16/2021 aspirin EC (ASPIRIN EC) 81 MG tablet Take 81 mg by mouth daily. 08/14/2020 aspirin EC 325 MG tablet Take 1 [...] needed. 01/14/2020 08/18/2023 HYDROcodone-acet aminophen 5-325 MG tablet Take 1 tablet by mouth every 6 (six) hours as needed for Pain. 08/14/2020 HYDROcodone-acet aminophen 5-325 MG tabletIndication s:Acute Pain [...] Comments URINALYSIS WI REFLEX TO CULTURE Routine 08/07/2020 10:06 AM MANAGER SHAREPOINT Primary osteoarthritis of left hip Chronic left hip pain MRSA SCREENING Routine 08/07/2020 10:01 AM MANAGER SHAREPOINT Primary osteoarthritis of left hip Chronic left hip pain BASIC METABOLIC PANEL Routine 08/07/2020 10:00 AM MANAGER SHAREPOINT Primary osteoarthritis of left hip Chronic left hip pain CBC W/DIFF AUTOMATED Routine 08/07/2020 10:00 AM MANAGER SHAREPOINT Primary osteoarthritis of left hip Chronic left hip pain documented in this encounter Results * (ABNORMAL) URINALYSIS WI REFLEX TO CULTURE (08/07/2020 10:06 AM MANAGER SHAREPOINT) COLOR (U) YELLOW 08/07/2020 10:23 AM [facility] TRANSPARENCY CLEAR 08/07/2020 10:23 AM [facility] SPECIFIC GRAVITY (U) 1.025 1.000 - 1.025 08/07/2020 10:23 AM [facility] U PH 7.0 5.0 - 8.0 08/07/2020 10:23 AM [facility] LEUKOCYTES (U) NEGATIVE NEGATIVE 08/07/2020 10:23 AM [facility] NITRITES NEGATIVE NEGATIVE 08/07/2020 10:23 AM [facility] PROTEIN (U) NEGATIVE NEGATIVE 08/07/2020 10:23 AM [facility] URINE GLUCOSE NEGATIVE NEGATIVE 08/07/2020 10:23 AM [facility] KETONES MG/DL (U) NEGATIVE NEGATIVE 08/07/2020 10:23 AM [facility] UROBILINOGEN 0.2 <1.0 EU/DL 08/07/2020 10:23 AM [facility] BILIRUBIN (U) NEGATIVE NEGATIVE 08/07/2020 10:23 AM [facility] BLOOD (U) TRACE(A) NEGATIVE 08/07/2020 10:23 AM [facility] WBC/HPF 0-5 0 - 5 /HPF 08/07/2020 10:23 AM MANAGER SHAREPOINT [facility] EPI/HPF FEW /LPF 08/07/2020 10:23 AM [facility] CULTURE & SENSITIVITY INDICATED? NOT INDICATED 08/07/2020 10:23 AM [facility] URINE SPECIMEN OBTAINED BY CLEAN CATCH PROCEDURE / Unknown 08/07/2020 10:06 AM MANAGER SHAREPOINT us Gustavo So MD URINE ORDERABLES Final Result Performing Organization Address [facility]/ZIP Co de Phone Number [facility] [address] [place] [address], * MRSA SCREENING (08/07/2020 10:01 AM MANAGER SHAREPOINT) SPEC DESCRIPTION NASAL 08/07/2020 9:34 AM [facility] SPECIAL REQUESTS NO SPECIAL REQUEST 08/07/2020 9:34 AM [facility] RESULT Negative by Rapid PCR for Methicillin Resistant Staphylococcus aureus 08/07/2020 6:02 PM [facility] ([facility] SPECIMEN FROM INTERNAL NOSE / Unknown 08/07/2020 10:01 AM MANAGER SHAREPOINT 08/07/2020 10:03 AM MANAGER SHAREPOINT us Gustavo So MD MICROBIOLOGY - GENERAL ORDERAB LES Final Result Performing Organization Address City/[facility]/ZIP Co de Phone Number [facility] ([facility] [address] [place] [address], [place] [phone] [facility] [address] [place] [address], * (ABNORMAL) CBC W/DIFF AUTOMATED (08/07/2020 10:00 AM MANAGER SHAREPOINT) WBC 7.6 4.5 - 10.8 x10'3/uL 08/07/2020 10:13 AM MANAGER SHAREPOINT [facility] RBC 4.56 4.10 - 5.40 x10'6/uL 08/07/2020 10:13 AM [facility] HGB 13.3 12.0 - 16.0 G/DL 08/07/2020 10:13 AM [facility] HCT 42.1 36.0 - 47.0 % 08/07/2020 10:13 AM [facility] MCV 92.3 78.0 - 100.0 FL 08/07/2020 10:13 AM [facility] MCH 29.2 27.0 - 31.0 PG 08/07/2020 10:13 AM [facility] MCHC 31.6(L) 33.0 - 36.0 G/DL 08/07/2020 10:13 AM [facility] RDW 13.4 11.5 - 14.5 % 08/07/2020 10:13 AM [facility] PLT 270 150 - 350 x10'3/uL 08/07/2020 10:13 AM [facility] MPV 8.5 7.4 - 10.4 FL 08/07/2020 10:13 AM [facility] DIFFERENTIAL COMMENT NORMAL REFERENCE RANGE NOT ESTABLISHED FOR THE PROPORTIONAL LEUKOCYTE DIFFERENTIAL. 08/07/2020 10:13 AM [facility] SEG NEUTROPHILS 68.8 % 0 10:13 AM [facility] LYMPHOCYTES 19.4 % 08/07/2020 10:13 AM [facility] MONOCYTES 6.7 % 08/07/2020 10:13 AM [facility] EOSINOPHILS 4.0 % 08/07/2020 10:13 AM [facility] BASOPHILS 0.8 % 08/07/2020 10:13 AM [facility] IMMATURE GRANS % 0.3 % 08/07/20 20 10:13 AM [facility] NRBC 0.0 % 08/07/2020 10:13 AM [facility] ABS. NEUTROPHILS 5.20 1.60 - 8.30 x10'3/uL 08/07/2020 10:13 AM [facility] ABS. LYMPHOCYTES 1.47 0.80 - 4.70 x10'3/uL 08/07/2020 10:13 AM [facility] ABS. MONOCYTES 0.51 0.00 - 1.50 x10'3/uL 08/07/2020 10:13 AM MANAGER SHAREPOINT [facility] ABS. EOSINOPHILS 0.30 0.00 - 0.40 x10'3/uL 08/07/2020 10:13 AM [facility] ABS. BASOPHILS 0.06 0.00 - 0.20 x10'3/uL 08/07/2020 10:13 AM [facility] ABS. IMMATURE GRANULOCYTES 0.02 0.00 - 0.03 x10'3/uL 08/07/2020 10:13 AM [facility] ABS. NUCLEATED RBC'S 0.00 0.00 x10'3/uL 08/07/2020 10:13 AM [facility] 08/07/2020 10:0 0 AM [facility] Gustavo So MD LABORATORY Final Result [facility] [address] [place] [address], * (ABNORMAL) BASIC METABOLIC PANEL (08/07/2020 10:00 AM [facility]) SODIUM S/P/B 135(L) 136 - 145 MMOL/L 08/07/2020 10:24 AM [facility] POTASSIUM S/P/B 4.7 3.5 - 5.1 MMOL/L 08/07/2020 10:24 AM [facility] CHLORIDE S/P/B 98 98 - 107 MMOL/L 08/07/2020 10:24 AM [facility] CO2 28.9 21.0 - 32.0 MMOL/L 08/07/2020 10:24 AM [facility] GLUCOSE 106(H) 70 - 99 MG/DL 08/07/2020 10:24 AM [facility] Comment: FASTING GLUCOSE 100 TO 125 MG/DL IS CONSISTENT WITH IMPAIRED FASTING GLUCOSE. FASTING GLUCOSE >125 MG/DL IS CONSISTENT WITH DIABETES. RANDOM GLUCOSE >200 MG/DL WITH HYPERGLYCEMIC SYMPTOMS IS CONSISTENT WITH DIABETES. PER ADA GUIDELINES BUN 19 6 - 24 MG/DL 08/07/2020 10:24 AM [facility] CREATININE S/P/B 0.95 0.55 - 1.02 MG/DL 08/07/2020 10:24 AM [facility] CALCIUM S/P/B 9.6 8.4 - 10.5 MG/DL 08/07/2020 10:24 AM [facility] ANION GAP 8.1 5.0 - 15.0 MMOL/L 08/07/2020 10:24 AM [facility] OSMOLALITY (CALC) 283 MOSM/KG 020 10:24 AM [facility] Comment:REFERENCE RANGE NOT ESTABLISHED EGFR NON-AFR. AMER. 61(L) >89 ML/MIN/1. 73 M2 08/07/2020 10:24 AM [facility] EGFR AFR. AMER. 71(L) >89 ML/MIN/1. 73 M2 08/07/2020 10:24 AM [facility] GFR NOTES GFR REFERENCE S: 08/07/2020 10:24 AM [facility] Comment: THE ESTIMATED GFR IS [...] <15 ml/min/1.73 m2 08/07/2020 10:0 0 AM MANAGER SHAREPOINT us Gustavo So MD LABORATORY Final Result [facility] [address] [place], [place] [address] [phone] documented in this encounter Visit Diagnoses Diagnosis Primary osteoarthritis of left hip Primary localized osteoarthrosis, pelvic region and thigh Chronic left hip pain Pain in joint, pelvic region and thigh documented in this encounter Care Teams Skoog Operator Relationship Specialty Start Date End Date Sebastien Sequeira MD [address] [place] [address] PCP - General INTERNAL MEDICINE 08/02/20 documented as of this encounter
--- OUTSIDE RECORDS SUMMARY | 2024-09-13 06:35 | XMS_ITS | Encounter Summary ---
Author Organization [facility] Address [address] [place] [address]. [place] [address] [place] [address] Care Team Providers Care Cooker Loader Name Role Phone Sebastien Sequeira MD Primary Care Provider [phone] Reason for Visit * Reason Comments Postop Followup DOS:08/13/2020 left total hip arthroplasty Encounter Details Date Type Department Care Team (Latest Contact Info) Description 08/24/2020 10:45 AM TELEGRAPHIC TYPEWRITER REPAIRER Office Visit [facility] [address] [address] Gustavo So MD [address] [place] [address] Postop Followup (DOS:08/13/2020 left total hip arthroplasty ) Social History Tobacco Use Types Packs/Day [...] COVID-19? No / Unsure 08/24/2020 10:11 AM TELEGRAPHIC TYPEWRITER REPAIRER documented as of this encounter Last Filed Vital Signs Vital Sign Reading Time Taken Comments Blood Pressure - - Pulse - - Temperature - - Respiratory Rate - - Oxygen Saturation - - Inhaled Oxygen Concentration - - Weight 130.6 kg (288 lb) 08/24/2020 10:41 AM TELEGRAPHIC TYPEWRITER REPAIRER Height 180.3 cm (5' 11 ) 08/24/2020 10:41 AM TELEGRAPHIC TYPEWRITER REPAIRER Body Mass Index 40.17 08/24/2020 10:41 AM TELEGRAPHIC TYPEWRITER REPAIRER documented in this encounter Progress Notes * Gustavo So MD - 08/24/2020 10:45 AM CST Chief Complaint: Postop Followup (DOS:08/13/2020 left total hip arthroplasty ) History of Present Illness: Gilma Mills is a 70-year-old female who presents to the office for Postop Followup (DOS:08/13/2020 left total hip arthroplasty ) Patient states that she is doing great in regards to her LEFT hip. She states that before the surgery her pain level was a 15, today she states that her pain is usually a 1 after therapy. She states that she is using Tylenol during the day and Confluence after therapy. She admits some soreness in her LEFT hip after therapy. She denies any numbness and tingling in her LEFT foot. She is using a walker with ambulation. Patient denies fever and or chills. She denies redness or drainage from her incisionsite. Gardner were removed today without difficulty. Incision was approximated without redness or drainage. ROS: See HPI for pertinent positives Problem [...] file Gets together: Not on file Attends adventism service: Not on file Active member of [...] needed., Disp: , Rfl: ??? aspirin EC 325 MG tablet, Take 1 tablet (325 mg total) by mouth 2 (two) times daily with meals for 41 days. Once complete with 325 mg twice a day and may resume home dose of 81 mg, Disp: 82 tablet, Rfl: 0 ??? EUTHYROX 125 MCG tablet, Take 125 [...] Supply, Disp: 30 tablet, Rfl: 0 ??? nortriptyline [...] Statins Rash Objective: Body mass index is 40.17 kg/m??. Last Recorded Weight 08/24/20 1041 Weight: 130.6 kg (288 lb) Physical exam: Constitutional: Alert and in no acute distress. Neurological: The patient was oriented to person, place, and time. Eyes: The sclera and conjunctiva were normal ENT: Hearing was normal. Neck: The appearance of the neck was normal. Cardiovascular: Normal pulses. Pulmonary: No respiratory distress. Skin: No injuries or skin lesion. Musculoskeletal: Left hip incision has healed well without erythema or drainage. Ellis are removed. Nice range of motion of the left hip is present. She is walking with a symmetric gait pattern with a walker Results: Assessment: Encounter Diagnose(s) ICD-10-CM ICD-9-CM SNOMED CT(R) 1. Status post total replacement of left hip Z96.642 V43.64 HISTORY OF TOTAL HIP ARTHROPLASTY Plan: Patient is doing very well 2 weeks after left hip replacement and is appreciating excellent pain relief compared to her preoperative symptoms. She is participating with therapy and I would anticipateweaning off the walker over the next couple of weeks. She will continue with an aspirin twice a dayfor DVT prophylaxis and I expect her to return in a month Follow up: Return in about 4 weeks (around 09/21/2020). GUSTAVO SO MD GRAPHIC TYPEWRITER REPAIRER documented in this encounter Plan of Treatment [...] post total replacement of left hip- Primary documented in this encounter Care Teams Cooker Loader Relationship Specialty Start Date End Date Sebastien Sequeira MD [address] [place] [address] PCP - General INTERNAL MEDICINE 08/02/20 documented as of this encounter
--- OUTSIDE RECORDS SUMMARY | 2024-09-13 06:35 | XMS_ITS | Encounter Summary ---
Author Organization [facility] Address [address] [place] [address]. [place] [address] [place] [address] Care Team Providers Care Coffee Grinder Name Role Phone Sebastien Sequeira MD Primary Care Provider [phone] Reason for Visit * Reason Comments Postop Followup DOS:08/13/2020 left total hip arthroplasty Pre-Op Exam RIGHT Total Hip Arth roplasty Encounter Details Date Type Department Care Team (Latest Contact Info) Description 11/06/2020 10:00 AM ANDROID IOS DEVELOPER Office Visit [facility] [address] [address] Gustavo So MD [address] [place] [address] Postop Followup (DOS:08/13/2020 left total hip arthroplasty); Pre-Op Exam (RIGHT Total Hip Arthroplasty) Social History Tobacco Use Types Packs/Day Years [...] COVID-19? No / Unsure 11/06/2020 10:15 AM ANDROID IOS DEVELOPER documented as of this encounter Last Filed Vital Signs Vital Sign Reading Time Taken Comments Blood Pressure - - Pulse - - Temperature - - Respiratory Rate - - Oxygen Saturation - - Inhaled Oxygen Concentration - - Weight 130.6 kg (288 lb) 11/06/2020 10:26 AM ANDROID IOS DEVELOPER Height 180.3 cm (5' 11 ) 11/06/2020 10:26 AM ANDROID IOS DEVELOPER Body Mass Index 40.17 11/06/2020 10:26 AM ANDROID IOS DEVELOPER documented in this encounter Progress Notes * Gustavo So MD - 11/06/2020 10:00 AM CST Chief Complaint: Postop Followup (DOS:08/13/2020 [...] doing great.She has completed physical therapy at [facility]. Patient denies any daily pain to her [...] up: Return for Post-Op. GUSTAVO SO MD OID IOS DEVELOPER OID IOS DEVELOPER documented in this encounter Plan of Treatment [...] hip documented in this encounter Care Teams Coffee Grinder Relationship Specialty Start Date End Date Sebastien Sequeira MD [address] [place] [address] PCP - General INTERNAL MEDICINE 08/02/20 documented as of this encounter
--- OUTSIDE RECORDS SUMMARY | 2024-09-13 06:35 | XMS_ITS | Encounter Summary ---
Author Organization [facility] Address [address] [place] [address]. [place] [address] [place] [address] Care Team Providers Care Scraper Loader Operator Name Role Phone Sebasiten Sequeira MD Primary Care Provider [phone] Reason for Visit * Reason Comments Therapy Report (SCAN) Encounter Details Date Type Department Care Team (Late st Contact Info) Description 10/04/2020 Scan [facility] [address] [place] [address] Scanned, Documents Therapy Report (SCAN) Social History [...] COVID-19? No / Unsure 09/25/2020 10:50 AM SCOW CAPTAIN documented as of this encounter Plan of [...] on filedocumented in this encounter Care Teams Scraper Loader Operator Relationship Specialty Start Date End Date Sebastien Sequeira MD [address] [place] [address] PCP - General INTERNAL MEDICINE 08/02/20 documented as of this encounter
--- OUTSIDE RECORDS SUMMARY | 2024-09-13 06:35 | XMS_ITS | Encounter Summary ---
Author Organization [facility] Address [address] [place] [address]. [place], [place] [address] [place] [address] Care Team Providers Care Radio Electronics Technician Name Role Phone Unavailable Primary Care Provider Unavailabl e Encounter Details Date Type Department Care Team (Latest Contact Info) Description 08/12/2014 Abstract [facility] [...]
--- OUTSIDE RECORDS SUMMARY | 2024-09-13 06:35 | XMS_ITS | Encounter Summary ---
Author Organization [facility] Address [facility]. [place], [place] [address] [place] [address] Care Team Providers Care Stakes Player Name Role Phone Unavailable Primary Care Provider Unavailabl e Encounter Details Date Type Department Care Team (Latest Contact Info) Description 11/10/2018 Scan [facility] Scanned, Documents Social History Tobacco Use Types [...]
--- OUTSIDE RECORDS SUMMARY | 2024-09-13 06:35 | XMS_ITS | Encounter Summary ---
Author Organization [facility] Address [address] [place] [address]. [place] [address] [place] [address] Care Team Providers Care Learning Support Aide Name Role Phone Sebastien Sequeira MD Primary Care Provider [phone] Encounter Details Date Type Department Care Team (Late st Contact Info) Description 11/06/2020 Orders Only [facility] [address], [place] [id number] Minerva Hendrickson RN Social History Tobacco Use [...] COVID-19? No / Unsure 11/06/2020 10:15 AM PALEOBOTANIST documented as of this encounter Plan of [...] documented as of this encounter Results * MRSA SCREENING (11/06/2020 11:24 AM PALEOBOTANIST) SPEC DESCRIPTION NASAL 11/06/2020 11:[address] [facility] SPECIAL REQUESTS NO SPECIAL REQUEST 11/06/2020 11:[address] [facility] RESULT Negative by Rapid PCR for Methicillin Resistant Staphylococcus aureus 11/06/2020 5:22 PM PALEOBOTANIST [facility] SPECIMEN FROM INTERNAL NOSE / Unknown 11/06/2020 11:24 AM PALEOBOTANIST 11/06/2020 11:26 AM PALEOBOTANIST us Gustavo So MD MICROBIOLOGY - GENERAL ORDERAB LES Final Result [facility] [address] [place] [address], [place] [phone] [facility] [address] [place] [address], [place] [phone] * (ABNORMAL) CBC W/DIFF AUTOMATED (11/06/2020 11:23 AM PALEOBOTANIST) WBC 6.8 4.5 - 10.8 x10'3/uL 11/06/2020 11:29 AM [facility] RBC 4.77 4.10 - 5.40 x10'6/uL 11/06/2020 11:29 AM [facility] HGB 13.1 12.0 - 16.0 G/DL 11/06/2020 11:29 AM [facility] HCT 42.2 36.0 - 47.0 % 11/06/2020 11:29 AM [facility] MCV 88.5 78.0 - 100.0 FL 11/06/2020 11:29 AM [facility] MCH 27.5 27.0 - 31.0 PG 11/06/2020 11:29 AM [facility] MCHC 31.0(L) 33.0 - 36.0 G/DL 11/06/2020 11:29 AM [facility] RDW 13.2 11.5 - 14.5 % 11/06/2020 11:29 AM [facility] PLT 292 150 - 350 x10'3/uL 11/06/2020 11:29 AM [facility] MPV 8.8 7.4 - 10.4 FL 11/06/2020 11:29 AM [facility] DIFFERENTIAL COMMENT NORMAL REFERENCE RANGE NOT ESTABLISHED FOR THE PROPORTIONAL LEUKOCYTE DIFFERENTIAL. 11/06/2020 11:29 AM [facility] SEG NEUTROPHILS 52.7 % 11:29 AM [facility] LYMPHOCYTES 30.7 % 11/06/2020 11:29 AM [facility] MONOCYTES 8.4 % 11/06/2020 11:29 AM [facility] EOSINOPHILS 7.2 % 11/06/2020 11:29 AM [facility] BASOPHILS 0.7 % 11/06/2020 11:29 AM [facility] IMMATURE GRANS % 0.3 % 11/06/19 11:29 AM [facility] NRBC 0.0 % 11/06/2020 11:29 AM [facility] ABS. NEUTROPHILS 3.59 1.60 - 8.30 x10'3/uL 11/06/2020 11:29 AM [facility] ABS. LYMPHOCYTES 2.09 0.80 - 4.70 x10'3/uL 11/06/2020 11:29 AM [facility] ABS. MONOCYTES 0.57 0.00 - 1.50 x10'3/uL 11/06/2020 11:29 AM [facility] ABS. EOSINOPHILS 0.49(H) 0.00 - 0.40 x10'3/uL 11/06/2020 11:29 AM [facility] ABS. BASOPHILS 0.05 0.00 - 0.20 x10'3/uL 11/06/2020 11:29 AM [facility] ABS. IMMATURE GRANULOCYTES 0.02 0.00 - 0.03 x10'3/uL 11/06/2020 11:29 AM [facility] ABS. NUCLEATED RBC'S 0.00 0.00 x10'3/uL 11/06/2020 11:29 AM [facility] 11/06/2020 11:2 3 AM PALEOBOTANIST us Gustavo So MD LABORATORY Final Result [facility] [address] [place] [address], * (ABNORMAL) BASIC METABOLIC PANEL (11/06/2020 11:23 AM PALEOBOTANIST) SODIUM S/P/B 140 136 - 145 MMOL/L 11/06/2020 11:46 AM [facility] POTASSIUM S/P/B 4.3 3.5 - 5.1 MMOL/L 11/06/2020 11:46 AM [facility] CHLORIDE S/P/B 102 98 - 107 MMOL/L 11/06/2020 11:46 AM [facility] CO2 27.4 21.0 - 32.0 MMOL/L 11/06/2020 11:46 AM [facility] GLUCOSE 98 70 - 99 MG/DL 11/06/2020 11:46 AM [facility] Comment: FASTING GLUCOSE 100 TO 125 MG/DL IS CONSISTENT WITH IMPAIRED FASTING GLUCOSE. FASTING GLUCOSE >125 MG/DL IS CONSISTENT WITH DIABETES. RANDOM GLUCOSE >200 MG/DL WITH HYPERGLYCEMIC SYMPTOMS IS CONSISTENT WITH DIABETES. PER ADA GUIDELINES BUN 9 6 - 24 MG/DL 11/06/2020 11:46 AM [facility] CREATININE S/P/B 1.03(H) 0.55 - 1.02 MG/DL 11/06/2020 11:46 AM [facility] CALCIUM S/P/B 9.4 8.4 - 10.5 MG/DL 11/06/2020 11:[address] [facility] ANION GAP 10.6 5.0 - 15.0 MMOL/L 11/06/2020 11:[address] [facility] OSMOLALITY (CALC) 289 MOSM/KG 021 11:[address] [facility] Comment:REFERENCE RANGE NOT ESTABLISHED EGFR NON-AFR. AMER. 55(L) >89 ML/MIN/1. 73 M2 11/06/2020 11:[address] [facility] EGFR AFR. AMER. 64(L) >89 ML/MIN/1. 73 M2 11/06/2020 11:[address] [facility] GFR NOTES GFR REFERENCE S: 11/06/2020 11:46 AM [facility] Comment: THE ESTIMATED GFR IS [...] <15 ml/min/1.73 m2 11/06/2020 11:2 3 AM PALEOBOTANIST us Gustavo So MD LABORATORY Final Result [facility] [address] [place] [address], documented in this encounter Visit Diagnoses Diagnosis Primary osteoarthritis of right hip- Primary Primary localized osteoarthrosis, pelvic region and thigh Chronic hip pain, right documented in this encounter Care Teams Learning Support Aide Relationship Specialty Start Date End Date Sebastien Sequeira MD [address] [place] [address] PCP - General INTERNAL MEDICINE 08/02/20 documented as of this encounter
--- OUTSIDE RECORDS SUMMARY | 2024-09-13 06:35 | XMS_ITS | Encounter Summary ---
Author Organization [facility] Address [facility] [place] [address] [place] [address] Care Team Providers Care Operations General Agent Name Role Phone Unavailable Primary Care Provider Unavailabl e Encounter Details Date Type Department Care Team (Late st Contact Info) Description 09/21/2014 Abstract [facility] - [place] [address] [place] [address] Jenna Yusuf MD [address] [facility] [address] [facility] [place] [address] Social History Tobacco Use Types Packs/Day Years Used Date Smoking Tobacco: Never Assessed Comments Unknown Sex and Gender Information Value Date Recorded Sex Assigned at Not on file Legal Sex Female 2:03 AM CDT Gender Identity Not on file Sexual Orientation Not on file documented as of this encounter Last Filed Vital Signs Vital Sign Reading Time Taken Comments Blood Pressure 124/82 09/21/2014 9:12 AM MOBILE PATROL OFFICER Pulse 80 09/21/2014 9:12 AM MOBILE PATROL OFFICER Temperature - - Respiratory Rate - - Oxygen Saturation - - Inhaled Oxygen Concentration - - Weight 115.7 kg (255 lb) 09/21/2014 9:12 AM MOBILE PATROL OFFICER Height 180.3 cm (5' 11 ) 09/21/2014 9:12 AM MOBILE PATROL OFFICER Body Mass Index 35.57 09/21/2014 9:12 AM MOBILE PATROL OFFICER documented in this encounter Progress Notes * Jenna Yusuf MD - 09/21/2014 9:00 AM CST Referring Provider Referring Provider: Dr. Sequeira Assessment Assessed 1. Never a smoker (V49.89) (Z78.9) 2. Apnea, sleep (780.57) (G47.30) A 64-year-old nonsmoker with mild obstructive sleep apnea and significant excessive daytime sleepiness, satisfactorily controlled RLS who is doing better with changing medications particularly from propranolol to topiramate and loves the new nasal mask that she tried during the PAP-NAP. She also has chronic rhinosinusitis which is slightly improved on Flonase. Plan Apnea, sleep 1. Renew: CPAP; Please change mask to Respironics Nuance nasal pillows, size small. New tubing and supplies Rx By: Jenna Yusuf; Dispense: 0 Days ; #:1; Refill: 0; For: Apnea, sleep; SOPHIA = N; Print Rx; Last Updated By: Lori Young; 09/21/2014 9:34:50 AM 2. Follow-up visit in 2 months Outpatient Follow-up in [facility] Status: Hold For - Scheduling Requested for: 21Sep2014 Ordered; For: Apnea, sleep; Ordered By: Jenna Yusuf Performed: Due: 05Oct2014 3. Patient Education Status: Complete Done: 21Sep2014 09:16AM ; Last Updated By: Lynnette Denton; 09/21/2014 9:17:33 AM; Ordered; For: Apnea, sleep; Ordered By: Jenna Yusuf Plan Comments: We will switch her to the Respironics Nuance nasal mask size small and order her new supplies and tubing. Continue Flonase. Change ropinirole to take 1 hour before onset of symptom at night. Her ferritin level checked at last visit was within normal limits. Counseled her again to maintain a regimen of regular exercise and encouraged to sustain her weight loss effort. I will see her back at my [facility] clinic in 2 months. History of Present Illness HPI Free Text: A 64-year-old nonsmoker with multiple comorbidities who was last seen on August 18 for further evaluation of excessive hypersomnia and fatigue and a history of mild obstructive sleep apnea for whichshe is unable to be compliant with her CPAP. Since then, she has been successful in changing her medications around a little bit and has noted significant relief with switching her propranolol to topiramate with which she is also losing weight and additionally feeling better. She had a PAP-NAP doneand loved the nasal mask that she was tried out. She has not been complaint with her CPAP for months now. Her DME supplier is [facility]. The Flonase seems to have helped her chronic rhinosinusitis although she is just recovering from a cold. Her RLS is satisfactorily controlled with Requip 4 mg PO QHS. Review of Systems Review of Systems CIAR: Constitutional: fatigue Head Eyes Ears Nose and Throat: hoarseness nasal congestion Cardiovascular: Negative. Respiratory: ESS: 19/24, dyspnea, cough and orthopnea Gastrointestinal: Negative. Genitourinary: Negative. Musculoskeletal: joint pain localized to one or more joints and muscle aches Integumentary: Negative. Neurological: Negative. Psychiatric: insomnia and depression Endocrine: Negative. Hematologic/Lymphatic: a tendency for easy bruising Surgical [...] Meds 1. ALPRAZolam 0.25 MG Oral Tablet; TAKE 1 TABLET 3 TIMES DAILY NEEDED; Therapy: 27Feb2014 to Recorded 2. Benadryl 25 MG Oral Tablet; TAKE 1 TABLET EVERY 4 TO 6 HOURS NEEDED; Therapy: (Recorded:21Sep2014) to Recorded 3. Fluticasone Propionate 50 MCG/ACT Nasal Suspension; USE 2 SPRAYS IN EACH NOSTRIL TWICE DAILY; Therapy: [id number] to (Evaluate:14Feb2015) Requested for: [id number]; Last Rx:[id number] Ordered 4. Furosemide 40 MG Oral Tablet; Take 1 tablet daily; Therapy: 05Jul2013 to (Evaluate:[id number]) Recorded 5. Hydrocodone-Acetaminophen 5-325 MG Oral Tablet; TAKE 1 TABLET EVERY 8 HOURS PRN; Therapy: 05Jun2014 to Recorded 6. Ibuprofen 200 MG Oral Tablet; TAKE NEEDED AND DIRECTED; Therapy: (Recorded:21Sep2014) to Recorded 7. Levothyroxine Sodium 75 MCG Oral Tablet; TAKE 1 TABLET DAILY; Therapy: 15Nov2013 to Recorded 8. Lyrica 100 MG Oral Capsule; TAKE 2 CAPSULE Bedtime; Therapy: 09Feb2014 to (Evaluate:[id number]) Recorded 9. Nortriptyline HCl - 25 MG Oral Capsule; TAKE 1 CAPSULE AT BEDTIME; Therapy: 15Nov2013 to Recorded 10. Pravastatin Sodium 40 MG Oral Tablet; TAKE 1 TABLET DAILY AT BEDTIME; Therapy: 16Sep2013 to Recorded 11. ROPINIRole HCl - 2 MG Oral Tablet; TAKE 2 TABLET Bedtime; Therapy: 09Feb2014 to (Evaluate:[id number]) Recorded 12. Spironolactone 100 MG Oral Tablet; TAKE 1 TABLET DAILY; Therapy: 18Sep2014 to Recorded 13. Topiramate 25 MG Oral Tablet; TAKE 3 TABLET Daily; Therapy: 15Aug2014 to (Evaluate:14Sep2014) Recorded 14. TraMADol HCl - 50 MG Oral Tablet; TAKE 1 TABLET 4 TIMES DAILY NEEDED FOR PAIN; Therapy: 20Oct2013 to (Evaluate:[id number]) Recorded 15. Venlafaxine HCl ER 150 MG Oral Capsule Extended Release 24 Hour; TAKE 2 CAPSULE Bedtime; Therapy: 15Nov2013 to Recorded Allergies Medication 1. No Known Drug Allergies Vitals Vital Signs [Data Includes: Current Encounter] Recorded by : Lynnette Denton at 21Sep2014 09:12AM Heart Rate 80 Systolic 124 Diastolic 82 O2 Saturation 97, RA Height 5 ft 11 in Weight 255 lb BMI Calculated 35.57 BSA Calculated 2.34 Immunizations Influenza --- Series1: 2013 Pneumococcal --- Series1: 2010 Physical Exam Pulmonary Multi-System Exam CIAR: Constitutional: [...] able to repeat phrases and speaks spontaneously. Results/Data PAP-NAP done in August 2014 was reviewed. The patient did very well with the Respironics Nuance nasal pillow size small and was studied on CPAP 7 cm water pressure. Her download from February to March 2014 shows zero compliance. Signatures Electronically signed by : Jenna Yusuf M.D.; Sep 25 2014 6:09AM MOBILE PATROL OFFICER (Author) documented in this encounter Plan of Treatment Not on file documented as of this encounter Visit Diagnoses Not on filedocumented in this encounter
--- OUTSIDE RECORDS SUMMARY | 2024-09-13 06:35 | XMS_ITS | Encounter Summary ---
Author Organization [facility] Address [facility] [place] [address] [place] [address] Care Team Providers Care Practicing Dermatologist Name Role Phone Sebastien Sequeira MD Primary Care Provider [phone] Encounter Details Date Type Department Care Team (Latest Contact Info) Description 08/07/2020 Travel Social History Tobacco Use Types Packs/Day [...] COVID-19? No / Unsure 08/07/2020 10:52 AM HUMAN RESOURCES BENEFITS COORDINATOR documented as of this encounter Plan of Treatment Not on file documented as of this encounter Visit Diagnoses Not on filedocumented in this encounter Care Teams Practicing Dermatologist Relationship Specialty Start Date End Date Sebastien Sequeira MD [address] [place] [id number] PCP - General INTERNAL MEDICINE 08/02/20 documented as of this encounter
--- OUTSIDE RECORDS SUMMARY | 2024-09-13 06:35 | XMS_ITS | Encounter Summary ---
Author Organization [facility] Address [facility] [place] [address] [place] [address] Care Team Providers Care Contract Preparer Name Role Phone Unavailable Primary Care Provider Unavailabl e Encounter Details Date Type Department Care Team (Latest Contact Info) Description 08/21/2014 Abstract [facility] Zabrina Cotto MD Social History Tobacco Use Types Packs/Day Years Used Date Smoking Tobacco: Never Assessed Comments Unknown Sex and Gender Information Value Date Recorded Sex Assigned at Not on file Legal Sex Female 2:03 AM CDT Gender Identity Not on file Sexual Orientation Not on file documented as of this encounter Progress Notes * Zabrina Coffey Md, MD - 08/21/2014 12:59 PM CST [facility] Authorization Release of Information First Name: Gilma Ying initial: Last Name: Lina AnnaLina Judy authorize [facility] to release any and all healthcare information about me to my [facility] personal health record for my own uses and purposes. I acknowledge that such healthcare information may include the following: x-rays, clinical diagnosis, histories of present illnesses, immunizations, allergies, prescription drug information, mental health screenings, treatment, including psychotherapy notes, diagnostic screening and testing, laboratory results, HIV/AIDS, infectious disease, sexually transmitted infection, genetic testing, substance/alcohol use and treatment history, clinical procedures, domestic violence, child abuse, family abuse, medical research, clinical trials, billing, account, and insurance information. I acknowledge that my authorization includes the authorization to disclose any information or records (within the scope of the authorization) that [facility] has received about me from other healthcare providers or facilities. [facility] may, within its discretion, withhold from disclosure any of the above information as permitted or required by law. Access to treatment or services may not be denied to me if I decline to sign this Authorization or revoke my Authorization. However, without this Authorization, my Provider will not electronically release my healthcare information to my [facility] personal health record. I may revoke this Authorization at any time. Such revocation will promptly take effect except to the extent that [facility] already has acted based on this Authorization. I may revoke this Authorization by removing [facility] as a health care provider with whichI want to be connected on my [facility] account or providing my request to [facility]. However, I acknowledge that data previously submitted by [facility] as authorized by me prior to my subsequent revocation of this Authorization will remain in my [facility] account. This authorization shall end upon the earliest of (1) the termination of the connection between my healthcare provider and my [facility] (2) upon my written request submitted to [email or web address]. For Authorized Representatives of Patients younger than 18 years old: This Authorization shall upon the earliest of: (1) the date the minor reaches the age of 18; or (2) the date [facility] receives written revocation from the minor, as an emancipated minor with legal authority to managehis/her own healthcare. I have been informed that once my healthcare information is disclosed to [facility], it will nolonger be protected health information covered by the Health Insurance Portability and Accountability Act of 1996 ( HIPAA ) and may be subject to further disclosure, subject to the [facility] Terms of Use, Privacy Policy and applicable federal and state law with respect to re- disclosures of health information. I understand that [facility] is not responsible for my health information once that data isdisclosed to [facility] pursuant to this Authorization. I have the right to receive a copy of this Authorization and may do so by clicking [Print] above. Signed on 08/21/2014 Please complete the following information: Gilma Mills 1950 If signing on behalf of a Patient, please complete the following: Relationship to Patient: [Place x in the appropriate box below] [X] Patient [ ] Parent/Guardian/Other Legal Manager Reimbursement By clicking [I ACCEPT], I acknowledge and agree to the terms of this Authorization. documented in this encounter Plan of Treatment Not on file documented as of this encounter Visit Diagnoses Not on filedocumented in this encounter
--- OUTSIDE RECORDS SUMMARY | 2024-09-13 06:35 | XMS_ITS | Encounter Summary ---
Author Organization [facility] Address [address] [place] [address]. [place], [place] [address] [place] [address] Care Team Providers Care Bench Assembler Name Role Phone Unavailable Primary Care Provider Unavailabl e Encounter Details Date Type Department Care Team (Latest Contact Info) Description 06/24/2005 Abstract [facility] Social History Tobacco Use [...]
--- OUTSIDE RECORDS SUMMARY | 2024-09-13 06:35 | XMS_ITS | Encounter Summary ---
Author Organization [facility] Address [address] [place] [address]. [place] [address] [place] [address] Care Team Providers Care Back Tender Cylinder Name Role Phone Sebastien Sequeira MD Primary Care Provider [phone] Reason for Visit * Reason Comments Post Operative DOS:08/13/2020 left total hip arthroplasty Encounter Details Date Type Department Care Team (Latest Contact Info) Description 09/25/2020 10:30 AM EARLY CHILDHOOD WORKER Office Visit [facility] [address] [address] Gustavo So MD [address] [place] [id number] Post Operative (DOS:08/13/2020 left total hip arthroplasty) Social History Tobacco [...] COVID-19? No / Unsure 09/25/2020 10:50 AM EARLY CHILDHOOD WORKER documented as of this encounter Last Filed Vital Signs Vital Sign Reading Time Taken Comments Blood Pressure - - Pulse - - Temperature - - Respiratory Rate - - Oxygen Saturation - - Inhaled Oxygen Concentration - - Weight 130.6 kg (288 lb) 09/25/2020 11:36 AM EARLY CHILDHOOD WORKER Height 180.3 cm (5' 11 ) 09/25/2020 11:36 AM EARLY CHILDHOOD WORKER Body Mass Index 40.17 09/25/2020 11:36 AM EARLY CHILDHOOD WORKER documented in this encounter Progress Notes * Gustavo So MD - 09/25/2020 10:30 AM CST Chief Complaint: Post Operative (DOS:08/13/2020 left total hip arthroplasty) History of Present Illness: Gilma Mills is a 70-year-old female who presents to the office for Post Operative (DOS:08/13/2020 left total hip arthroplasty) Patient returns to clinic using a cane for follow up after LEFT ALEXUS. She states that she is doing well. Attending physical therapy 2 times per week and doing well. She is doing her home exercises daily. Patient denies any daily pain, numbness, or tingling. Occasional night pain. She is taking Norcofor more fibromyalgia as needed. No concerns today and states that she is ready to get her RIGHT ALEXUS done. ROS: See HPI for pertinent positives Problem [...] hypotension ??? Statins Rash Objective: Filed Vitals: 09/25/20 1136 Weight: 130.6 kg (288 lb) Height: 5' [...] No injuries or skin lesions. Musculoskeletal: Patient has good left hip range of motion. She continues to use a cane to help with balance. Mild antalgic gait because of right hip pain. Results: X-ray demonstrates a well aligned well positioned left total hip arthroplasty with good stability. Leg lengths are symmetric Assessment: Encounter Diagnose(s) ICD-10-CM ICD-9-CM SNOMED CT(R) 1. Status post total replacement of left hip Z96.642 V43.64 HISTORY OF TOTAL HIP ARTHROPLASTY Plan: Patient indicates complete resolution of her preoperative symptoms of the left hip. She is concerned about right hip pain and wants to consider right hip replacement. I have encouraged her to keep working on weight loss. She is continuing to work with physical therapy and I will see her back in 6 weeks. She does not need to continue with aspirin at this point for DVT prophylaxis Follow up: Return in about 6 weeks (around 11/06/2020). GUSTAVO SO MD Y CHILDHOOD WORKER documented in this encounter Plan of Treatment [...] Primary documented in this encounter Care Teams Back Tender Cylinder Relationship Specialty Start Date End Date Sebastien Sequeira MD [address] [place] [address] PCP - General INTERNAL MEDICINE 08/02/20 documented as of this encounter
--- OUTSIDE RECORDS SUMMARY | 2024-09-13 06:35 | XMS_ITS | Encounter Summary ---
Author Organization [facility] Address [address] [place] [address]. [place] [address] [place] [address] Care Team Providers Care Cleaning Professional Name Role Phone Sebastien Sequeira MD Primary Care Provider [phone] Reason for Visit * Reason Comments Therapy Report (SCAN) Encounter Details Date Type Department Care Team (Late st Contact Info) Description 08/15/2020 Scan [facility] [address] [place] [address] [place] [address] Scanned, Documents Therapy Report (SCAN) Social History [...] COVID-19? No / Unsure 08/24/2020 10:11 AM MANAGER OF MEDICAL documented as of this encounter Plan of [...] Procedure Name Priority Date/Time Associated Diagnosis Comments PROCEDURE GENERIC (SCAN ORDER) Routine 08/15/2020 documented in this encounter Results * PROCEDURE GENERIC (08/15/2020) us Documents Scanned SCANNING Final Result [facility] documented in this encounter Visit Diagnoses Not on filedocumented in this encounter Care Teams Cleaning Professional Relationship Specialty Start Date End Date Sebastien Sequeira MD [address] [place] [address] PCP - General INTERNAL MEDICINE 08/02/20 documented as of this encounter
--- OUTSIDE RECORDS SUMMARY | 2024-09-13 06:35 | XMS_ITS | Encounter Summary ---
Author Organization [facility] Address [facility] [place] [address] [place] [address] Care Team Providers Care Boot Trimmer Name Role Phone Sebastien Sequeira MD Primary Care Provider [phone] Encounter Details Date Type Department Care Team (Latest Contact Info) Description 08/10/2020 Travel Social History Tobacco Use Types Packs/Day [...] have Coronavirus / COVID-19? No / Unsure 08/10/2020 8:06 AM DIRECTOR WRITING documented as of this encounter Plan of Treatment Not on file documented as of this encounter Visit Diagnoses Not on filedocumented in this encounter Additional Health Concerns Infection Onset Date Last Indicated Resolved Time COVID-19 Rule Out 08/10/2020 08/10/2020 08/11/2020 11:50 AM DIRECTOR WRITING documented as of this encounter Care Teams Boot Trimmer Relationship Specialty Start Date End Date Sebastien Sequeira MD [address] [place] [address] PCP - General INTERNAL MEDICINE 08/02/20 documented as of this encounter
--- OUTSIDE RECORDS SUMMARY | 2024-09-13 06:35 | XMS_ITS | Encounter Summary ---
Author Organization [facility] Address [facility] [place] [address] [place] [address] Care Team Providers Care Broadcast Systems Engineer Name Role Phone Sebastien Sequeira MD Primary Care Provider [phone] Encounter Details Date Type Department Care Team (Latest Contact Info) Description 08/24/2020 Travel Social History Tobacco Use Types Packs/Day [...] COVID-19? No / Unsure 08/24/2020 10:11 AM SENIOR STAFF PSYCHOLOGIST documented as of this encounter Plan of [...] filedocumented in this encounter Care Teams Broadcast Systems Engineer Relationship Specialty Start Date End Date Sebastien Sequeira MD [address] [place] [address] PCP - General INTERNAL MEDICINE 08/02/20 documented as of this encounter
--- OUTSIDE RECORDS SUMMARY | 2024-09-13 06:35 | XMS_ITS | Encounter Summary ---
Author Organization [facility] Address [address] [place] [address]. [place] [address] [place] [address] Care Team Providers Care Trailhead Maintenance Worker Name Role Phone Sebastien Sequeira MD Primary Care Provider [phone] Encounter Details Date Type Department Care Team (Latest Contact Info) Description 08/07/2020 9:28 AM ORTHOPEDIC DESIGNER - 08/07/2020 11:59 PM ORTHOPEDIC DESIGNER Hospital Encounter [facility] [address] [place] [address] [place] [address] Gustavo So MD [address] [place] [address] Discharge Disposition: Home or Self Care (Routine [...] COVID-19? No / Unsure 08/07/2020 10:52 AM ORTHOPEDIC DESIGNER documented as of this encounter Medications at [...] Date/Time Associated Diagnosis Comments ECG 12-LEAD Routine 08/07/2020 11:20 AM ORTHOPEDIC DESIGNER Chronic hip pain, left documented in this encounter Results * ECG 12 lead (08/07/2020 11:20 AM ORTHOPEDIC DESIGNER) 08/07/2020 11:2 0 AM ORTHOPEDIC DESIGNER Narrative [facility] - 08/08/2020 7:05 AM ORTHOPEDIC DESIGNER ? [facility] ?[address] [place], [place] ??[address] ? Test Date: ?2020-08-07 Pat Name: ? KEEGAN MILLS ? Department: ? Room: ? Gender: ? Female ? Biological Plant Operator: ?? : ?1950 ? Requested By: GUSTAVO SO Order Number: [id number] ? Reading : ?? Annamaria Garcia ? Measurements Intervals ?[place] ? Rate: ? 69 ? P: ?55 MN: ? 208 ?QRS: ?71 QRSD: ? 106 ?T: ?90 QT: ? 390 ? QTc: ?421 ? Interpretive Statements SINUS RHYTHM OPEDIC DESIGNER Procedure Note Annamaria Garcia MD - 08/08/[address] [place] [address] Test Date: 2020-08-07 Pat Name: KEEGAN MILLS Department: Room: Gender: Female Biological Plant Operator: : 1950 Requested By: GUSTAVO SO Order Number: [id number] Reading MD: Annamaria Garcia Measurements Intervals [place] Rate: 69 P: 55 MN: 208 QRS: 71 QRSD: 106 T: 90 QT: 390 QTc: 421 Interpretive Statements SINUS RHYTHM OPEDIC DESIGNER us Gustavo So MD ECG ORDERABLES Final Result [facility] documented in this encounter Visit Diagnoses Diagnosis Chronic hip pain, left documented in this encounter Care Teams Trailhead Maintenance Worker Relationship Specialty Start Date End Date Sebastien Sequeira MD [address] [place] [id number] PCP - General INTERNAL MEDICINE 08/02/20 documented as of this encounter
--- OUTSIDE RECORDS SUMMARY | 2024-09-13 06:35 | XMS_ITS | Encounter Summary ---
Author Organization [facility] Address [facility]. [place], [place] [address] [place] [address] Care Team Providers Care Padded Products Inspector Trimmer Name Role Phone Unavailable Primary Care Provider Unavailabl e Encounter Details Date Type Department Care Team (Latest Contact Info) Description 01/20/2019 Scan [facility] Scanned, Documents Social [...]
--- OUTSIDE RECORDS SUMMARY | 2024-09-13 06:35 | XMS_ITS | Encounter Summary ---
Author Organization [facility] Address [facility] [place] [address] [place] [address] Care Team Providers Care Straightener Gun Parts Name Role Phone Sebastien Sequeira MD Primary Care Provider [phone] Encounter Details Date Type Department Care Team (Latest Contact Info) Description 07/20/2018 Abstract [facility] , Zabrina Coffey MD Social History Tobacco Use Types Packs/Day [...] Rule Out 08/10/2020 08/10/2020 08/11/2020 11:50 AM LOSS PREVENTION REPRESENTATIVE COVID-19 Rule Out 11/16/2020 11/16/2020 11/18/2020 8:06 AM LOSS PREVENTION REPRESENTATIVE COVID-19 Rule Out 06/21/2021 06/21/2021 06/21/2021 7:19 PM CDT documented as of this encounter Care Teams Straightener Gun Parts Relationship Specialty Start Date End Date Sebastien Sequeira MD [address] [place] [address] PCP - General INTERNAL MEDICINE 08/02/20 documented as of this encounter
--- OUTSIDE RECORDS SUMMARY | 2024-09-13 06:35 | XMS_ITS | Encounter Summary ---
Author Organization [facility] Address [facility] [place] [address] [place] [address] Care Team Providers Care Health Care Analyst Name Role Phone Sebastien Sequeira MD Primary Care Provider [phone] Encounter Details Date Type Department Care Team (Latest Contact Info) Description 09/25/2020 10:30 AM FELT MACHINE MECHANIC - 09/25/2020 11:59 PM FELT MACHINE MECHANIC Hospital Encounter [facility] [address] [place] [address] Gustavo So MD [address] [place] [address] Discharge Disposition: Home or Self Care (Routine [...] COVID-19? No / Unsure 09/25/2020 10:50 AM FELT MACHINE MECHANIC documented as of this encounter Medications at [...] Priority Date/Time Associated Diagnosis Comments XR PELVIS AP+LT HIP 1V Routine 09/25/2020 11:28 AM FELT MACHINE MECHANIC Status post total replacement of left hip documented in this encounter Results * XR PELVIS AP+LT HIP 1V (09/25/2020 11:28 AM FELT MACHINE MECHANIC) Anatomical Region Laterality Modality Pelvis, Hip Radiographic [place] ging 09/25/2020 12:5 0 PM FELT MACHINE MECHANIC Impressions 09/25/2020 12:52 PM FELT MACHINE MECHANIC IMPRESSION: No acute findings. Satisfactory postoperative left hip. Interpreted By: Aki Adams MD, 09/25/2020 12:50 PM Narrative 09/25/2020 12:52 PM FELT MACHINE MECHANIC Examination: Pelvis and left hip. Exam time: [...] Diagnosis Status post total replacement of left hip documented in this encounter Care Teams Health Care Analyst Relationship Specialty Start Date End Date Sebastien Sequeira MD [address] [place] [address] PCP - General INTERNAL MEDICINE 08/02/20 documented as of this encounter
--- OUTSIDE RECORDS SUMMARY | 2024-09-13 06:35 | XMS_ITS | Encounter Summary ---
Author Organization [facility] Address [facility] [place] [address] [place] [address] Care Team Providers Care Steel Layout Worker Name Role Phone Unavailable Primary Care Provider Unavailabl e Encounter Details Date Type Department Care Team (Late st Contact Info) Description 01/04/2018 Abstract [facility] Multispecialty Care - [place] [address] [place] [address] Jessica Sebastian NP Social History Tobacco Use Types Packs/Day Years Used Date Smoking Tobacco: Never Assessed Comments Unknown Sex and Gender Information Value Date Recorded Sex Assigned at Not on file Legal Sex Female 2:03 AM CDT Gender Identity Not on file Sexual Orientation Not on file documented as of this encounter Last Filed Vital Signs Vital Sign Reading Time Taken Comments Blood Pressure 142/60 01/04/2018 9:54 AM CDT Pulse 76 01/04/2018 9:54 AM CDT Temperature - - Respiratory Rate - - Oxygen Saturation - - Inhaled Oxygen Concentration - - Weight 125.2 kg (276 lb) 01/04/2018 9:54 AM CDT Height 180.3 cm (5' 11 ) 01/04/2018 9:54 AM CDT Body Mass Index 38.49 01/04/2018 9:54 AM CDT documented in this encounter Progress Notes * Jessica Sebastian NP - 01/04/2018 11:00 AM CDT Reason For Visit Other: follow up sleep machine Referring Provider Dr. Sequeira Chief Complaint PARI, CPAP f/u History of Present Illness HPI Free Text: Gilma is a 67 y/o female who presents to pulmonary clinic today to establish care with me for objective sleep apnea treated with CPAP. She was previously seen by Dr. Eagle andby Dr. Yusuf prior to that for the same. She was last seen October 05, 2017. She was advised to voluntarily discontinue and driving as she stated she had episodes of sleepy driving due to poor CPAPcompliance. She also requested a cloth mask. Dr. Eagle noted that she had multiple mask issues and had not been using her CPAP meaningfully since November of 2014. She reported symptoms to snoring, and sleepy driving, and daytime hypersomnia without CPAP use. He advises me that CPAP is going better. Her bedtime is between 2287-4983. Most of the time it takes her longer than 30 minutes to fall sleep.She does take 10 mg of melatonin nightly to initiate sleep. She describes the quality of her sleep as good once she falls asleep. She does snore without her CPAP machine. She denies nocturia. She wakes at 0400 to get her up for work. She does advised that she goes back to sleep until 0730 but more often than not, for CPAP machine on for these last 3 hours of sleep. She wakes feeling appropriately rested most days. She denies morning headache. She does occasionally feel progressively tired. She will nap daily for 30-45 minutes in her chair. She occasionally feels sleepy when sedentary.She denies any recent instances of sleepy driving. She never did get a cloth CPAP mask (which she has for her last appointment). She is now using a traditional nasal mask and reports resolution of all the mask related symptoms she had been having. She does have dry mouth despite adding distilled water to her machine. Benefit to CPAP therapy includes to decrease daytime sleepiness and feeling more alert in the morning. Her Garfield Sleepiness Scale is 14/24. She has no other issues at today's clinic appointment. Review of Systems See HPI for pertinent positives. Constitutional: no fever, no malaise and no chills. Cardiovascular: no chest pain, the heart is not racing, no lower extremity edema, no palpitations and no lightheadedness. Respiratory: no shortness of breath. Psychiatric: no insomnia. Neurological no headache.. Respiratory: ESS=14/24 Active Problems 1. Apnea, sleep (780.57) (G47.30) 2. Arthritis (716.90) (M19.90) 3. Cough (786.2) (R05) 4. CPAP use counseling (V65.49) (Z71.89) 5. Daytime hypersomnia (780.54) (G47.19) 6. Difficulty with CPAP use (V49.89) (Z78.9) 7. Fibromyalgia (729.1) (M79.7) 8. Hypertension (401.9) (I10) 9. Obstructive sleep apnea (327.23) (G47.33) 10. Post-nasal drip (784.91) (R09.82) 11. Restless legs syndrome (333.94) (G25.81) Surgical History 1. History of Hysterectomy 2. History of Rotator Cuff Repair Family History 1. Family history of malignant neoplasm of breast (V16.3) (Z80.3) 2. Family history of chronic obstructive pulmonary disease (V17.6) (Z82.5) 3. Family history of congestive heart failure (V17.49) (Z82.49) 4. Family history of hypertension (V17.49) (Z82.49) 5. Family history of malignant neoplasm of breast (V16.3) (Z80.3) 6. Family history of multiple sclerosis (V17.2) (Z82.0) Social History ?? Never a smoker Immunizations Influenza --- Series1: 2013 Pneumo Other --- Series1: 2010 Current Meds 1. ALPRAZolam 0.25 MG Oral Tablet; TAKE 1 TABLET 3 TIMES DAILY NEEDED; Therapy: 27Feb2014 to Recorded 2. Benadryl 25 MG TABS; TAKE 1 TABLET EVERY 4 TO 6 HOURS NEEDED; Therapy: (Recorded:21Sep2014) to Recorded 3. ClonazePAM 0.5 MG Oral Tablet; TAKE 1 TABLET EVERY 12 HOURS NEEDED; Therapy: (Recorded:14Nov2014) to Recorded 4. CPAP; Please change mask to Respironics Nuance nasal pillows, size small. New tubing and supplies; Therapy: 21Sep2014 to (Last Rx:21Sep2014) Ordered 5. Diclofenac Sodium ER 100 MG Oral Tablet Extended Release 24 Hour; TAKE 1 TABLET Bedtime; Therapy: (Recorded:05Oct2017) to Recorded 6. Fluticasone Propionate 50 MCG/ACT Nasal Suspension; USE 2 SPRAYS IN EACH NOSTRIL TWICE DAILY; Therapy: 18Aug2014 to (Evaluate:14Feb2015) Requested for: [id number]; Last Rx:[id number] Ordered 7. Furosemide 40 MG Oral Tablet; Take 1 tablet daily; Therapy: 05Jul2013 to (Evaluate:[id number]) Recorded 8. Levothyroxine Sodium 75 MCG Oral Tablet; TAKE 1 TABLET DAILY; Therapy: 15Nov2013 to Recorded 9. Lyrica 100 MG Oral Capsule; TAKE 2 CAPSULE Bedtime; Therapy: 09Feb2014 to (Evaluate:27Apr2014) Recorded 10. Nortriptyline HCl - 25 MG Oral Capsule; TAKE 1 CAPSULE AT BEDTIME; Therapy: 15Nov2013 to Recorded 11. Propranolol HCl ER 120 MG Oral Capsule Extended Release 24 Hour; TAKE 1 CAPSULE Bedtime; Therapy: (Recorded:05Oct2017) to Recorded 12. ROPINIRole HCl - 2 MG Oral Tablet; TAKE 2 TABLET Bedtime; Therapy: 09Feb2014 to (Evaluate:[id number]) Recorded 13. Spironolactone 100 MG Oral Tablet; TAKE 1 TABLET DAILY; Therapy: 18Sep2014 to Recorded 14. TraMADol HCl - 50 MG Oral Tablet; TAKE 1 TABLET 4 TIMES DAILY NEEDED FOR PAIN; Therapy: 20Oct2013 to (Evaluate:[id number]) Recorded 15. Venlafaxine HCl ER 150 MG Oral Capsule Extended Release 24 Hour; TAKE 2 CAPSULE Bedtime; Therapy: 15Nov2013 to Recorded Allergies 1. No Known Drug Allergies Vitals Recorded: 04Jan2018 09:54AM Heart Rate 76 Systolic 142 Diastolic 60 O2 Saturation 96, RA Height 5 ft 11 in Weight 276 lb BMI Calculated 38.49 BSA Calculated 2.42 Comment at rest. Physical Exam Constitutional: General appearance: Normal. appears tired and patient was observed to be moderately obese, but not acutely ill, not chronically ill, not uncomfortable, clothing appropriate, well groomed and body odor was normal. Head and Face: Head and face: Normal. Eyes: Conjunctiva and lids: Normal. Pupils and irises: Normal. Ears, Nose, Mouth, and Throat: External inspection of ears and nose: Normal. Nasal mucosa, septum, and turbinates: Normal. Lips, teeth, and gums: Normal. Oropharynx: Normal. Inspection of the oropharynx showed only hard palate visible (Mallampati class 4). Neck: Neck Appearance: Normal. The neck circumference was 39 cm, but was normal and was supple. Cardiovascular Auscultation of heart: Normal. Examination of extremities for edema: Normal. Pulmonary Chest: Normal. Respiratory effort: Normal. Auscultation of lungs: Normal. Skin Skin and subcutaneous tissue: Normal. Musculoskeletal Inspection/palpation of digits and nails: Normal without clubbing or cyanosis. Psychiatric Mood and affect: Normal. Neurological Orientation to person, place, and time: Normal. Recent and remote memory: Demonstrates normal memory. Attention span and concentration: Normal thought process and attention span. Names objects, able to repeat phrases and speaks spontaneously. Assessment 1. CPAP use counseling (V65.49) (Z71.89) 2. Daytime hypersomnia (780.54) (G47.19) 3. Difficulty with CPAP use (V49.89) (Z78.9) 4. Obstructive sleep apnea (327.23) (G47.33) Plan 1. From CPAP Please change mask to Respironics Nuance nasal pillows, size small. New tubing and supplies To CPAP Auto [id number], [facility] Rx By: Jessica Sebastian; Dispense: 0 Days ; #:1 Each; Refill: 0; For: Apnea, sleep; SOPHIA = N; Record;Last Updated By: Lori Kline; 01/04/2018 9:56:38 AM The importance of adhering to therapy fpc was stressed. The patient should be using auto CPAP at 4-10 cm of water. The patient was advised to try to adhere better to CPAP therapy. Do not drive if sleepy. Weight loss should be encouraged. Patient should undergo long-term risk factor modification for disorders associated with obstructivesleep apnea. See me in 6 months for a download and followup. Patient advised to contact our clinic with any additional concerns or questions. Discussion/Summary I had a lengthy discussion with the patient about obstructive sleep apnea. I reviewed potential complications such as daytime sleepiness and cardiovascular/cerebrovascular morbidity and mortality. I also discussed the primary treatment, CPAP and the different mask types that are available. She is happy using a traditional nasal mask. I discussed with the patient the results of the diagnostic polysomnography testing. The baseline AHI was 6 with a REM AHI of 15.8. I advised the patient about insurance requirements for CPAP reimbursement and use to include wearing a greater than 4 hours on the 24 hour period on 70% or greater of the nights a month. Patient advised they will need to return for face to face visits to comply with insurance requirements. The patient verbalizes understanding. I spent time going over the results of the download with the patient. Compliance is suboptimal. Over the last 3 months, CPAP was used more than 4 hours on 34.1% of of the nights. AHI is 2.6. I encouraged her to increase her nights with CPAP use as well as her overall hours with CPAP use. I informed her that she may use [id number] Biotene to help alleviate mouth dryness associatedwith CPAP. The patient likes to follow up in 6 months. At that point if her compliance has improved we will move to word annual visits. Her compliance is still poor we can discuss alternatives to CPAP. The patient is agreeable to this plan. I will see the patient in 6 months for download and followup. PARTS OF THIS NOTE WERE CREATED USING [employer] SOFTWARE. Signatures Electronically signed by : Jessica Sebastian APN; Jan 04 2018 10:41AM LEATHER DRIER (Author) documented in this encounter Plan of Treatment Not on file documented as of this encounter Visit Diagnoses Not on filedocumented in this encounter
--- OUTSIDE RECORDS SUMMARY | 2024-09-13 06:35 | XMS_ITS | Encounter Summary ---
Author Organization [facility] Address [facility] [place] [address] [place] [address] Care Team Providers Care Mortgage Accounting Clerk Name Role Phone Unavailable Primary Care Provider Unavailabl e Encounter Details Date Type Department Care Team (Late st Contact Info) Description 10/05/2017 Abstract [facility] Multispecialty Care - [place] [address] [place] [address] Jason Eagle MD [address] [place], [place] [id number] Social History Tobacco Use Types Packs/Day Years Used Date Smoking Tobacco: Never Assessed Comments Unknown Sex and Gender Information Value Date Recorded Sex Assigned at Not on file Legal Sex Female 2:03 AM CDT Gender Identity Not on file Sexual Orientation Not on file documented as of this encounter Last Filed Vital Signs Vital Sign Reading Time Taken Comments Blood Pressure 94/50 10/05/2017 10:17 AM SALESPERSON FLOWERS Pulse - - Temperature - - Respiratory Rate - - Oxygen Saturation - - Inhaled Oxygen Concentration - - Weight 126.1 kg (278 lb) 10/05/2017 10:17 AM SALESPERSON FLOWERS Height 180.3 cm (5' 11 ) 10/05/2017 10:17 AM SALESPERSON FLOWERS Body Mass Index 38.77 10/05/2017 10:17 AM SALESPERSON FLOWERS documented in this encounter Progress Notes * Jason Eagle MD - 10/05/2017 11:20 AM CST Referring Provider Dr. Sebastien Sequeira Assessment 1. Obstructive sleep apnea (327.23) (G47.33) 2. CPAP use counseling (V65.49) (Z71.89) 3. Difficulty with CPAP use (V49.89) (Z78.9) 4. Daytime hypersomnia (780.54) (G47.19) Plan Obstructive sleep apnea 1. CPAP; Status:Complete; Done: 05Oct2017 Perform:Not Applicable; Order Comments:PROVIDER PLUS - changed auto CPAP to 4 - 10 cwp in our office today. patient needs a cloth CPAP mask and all supplies needed FAX - [phone]; Due:10Oct2017; Last Updated By:Mceknzie Greene; 10/05/2017 10:40:46 AM;Ordered; For:Obstructive sleep apnea;Ordered By:Jason Eagle; I informed the patient that she needs to make treating her obstructive sleep apnea a high priority. A cloth mask has been requested. It told her if her insurance cannot get her this, she is going to have to try harder with more traditional masks. Change auto CPAP to 4-10 cm of water. I asked the patient to voluntarily not drive until her sleep apnea is controlled. She will see the nurse practitioner in 3 months for follow up. Reason For Visit Consultation Follow-Up History of Present Illness HPI Free Text: The patient presents with a chief complaint of suboptimally treated sleep apnea. This patient used to see my colleague, Dr. Yusuf. She is here to establish care with me. She actually has not been seen in the office since November 2014. In the interim, she essentially quit using the CPAP. She used it a few days back in April, but notsince. Her main complaint is getting a comfortable mask. She said she has tried all sorts of different masks. She was actually out at the [facility] working with a office technologist trying to finda mask that worked. She had nasal pillow style mask that she liked but now it is irritating the skin underneath her nose if she used it more than a few days in a row. She is requesting a cloth CPAP mask. Unfortunately, the patient is having symptoms of untreated sleep apnea. She is snoring. She is drowsy during the day. 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 Review of Systems Constitutional: fatigue Psychiatric: no insomnia Surgical History 1. History of Hysterectomy 2. [...] (Z82.0) Social History ?? Never a smoker Current Meds 1. ALPRAZolam 0.25 MG Oral [...] SPRAYS IN EACH NOSTRIL TWICE DAILY; Therapy: [id number] to (Evaluate:14Feb2015) Requested for: [id number]; Last Rx:[id number] Ordered 7. Furosemide 40 MG Oral Tablet; Take 1 tablet daily; Therapy: 05Jul2013 to (Evaluate:[id number]) Recorded 8. Levothyroxine Sodium 75 MCG Oral Tablet; TAKE 1 TABLET DAILY; Therapy: 15Nov2013 to Recorded 9. Lyrica 100 MG Oral Capsule; TAKE 2 CAPSULE Bedtime; Therapy: 09Feb2014 to (Evaluate:[id number]) Recorded 10. Nortriptyline HCl - 25 MG Oral Capsule; TAKE 1 CAPSULE AT BEDTIME; Therapy: 15Nov2013 to Recorded 11. Pravastatin Sodium 40 MG Oral Tablet; TAKE 1 TABLET DAILY AT BEDTIME; Therapy: 16Sep2013 to Recorded 12. Propranolol HCl ER 120 MG Oral Capsule Extended Release 24 Hour; TAKE 1 CAPSULE Bedtime; Therapy: (Recorded:05Oct2017) to Recorded 13. ROPINIRole HCl - 2 MG Oral Tablet; TAKE 2 TABLET Bedtime; Therapy: 09Feb2014 to (Evaluate:[id number]) Recorded 14. Spironolactone 100 MG Oral Tablet; TAKE 1 TABLET DAILY; Therapy: 18Sep2014 to Recorded 15. TraMADol HCl - 50 MG Oral Tablet; TAKE 1 TABLET 4 TIMES DAILY NEEDED FOR PAIN; Therapy: 20Oct2013 to (Evaluate:[id number]) Recorded 16. Venlafaxine HCl ER 150 MG Oral Capsule Extended Release 24 Hour; TAKE 2 CAPSULE Bedtime; Therapy: 15Nov2013 to Recorded Allergies 1. No Known Drug Allergies Vitals Recorded: 05Oct2017 10:17AM Systolic 94 Diastolic 50 Height 5 ft 11 in Weight 278 lb BMI Calculated 38.77 BSA Calculated 2.43 Immunizations Influenza --- Series1: 2013 Pneumo Other --- Series1: 2010 Physical Exam Constitutional: General appearance: Normal. Head and Face: Head and face: Normal. Eyes: Conjunctiva and lids: Normal. Ears, Nose, Mouth, and Throat: External inspection of ears and nose: Normal. Nasal mucosa, septum, and turbinates: Normal. Lips, teeth, and gums: Normal. Oropharynx: Normal. Neck: Neck Appearance: Normal. Cardiovascular Auscultation of heart: Normal. Examination of extremities for edema: Normal. Pulmonary Chest: Normal. Respiratory effort: Normal. Auscultation of lungs: Normal. Abdomen Examination of Abdomen: Normal. Liver and spleen: Normal. Lymphatic Palpation of lymph nodes in neck: Normal. Skin Skin and subcutaneous tissue: Normal. Musculoskeletal Inspection/palpation of digits and nails: Normal without clubbing or cyanosis. Muscle strength/tone: Normal. Psychiatric Mood and affect: Normal. Neurological Orientation to person, place, and time: Normal. Recent and remote memory: Demonstrates normal memory. Signatures Electronically signed by : Jason Eagle M.D.; Oct 05 2017 1:12PM SALESPERSON FLOWERS (Author) documented in this encounter Plan of Treatment Not on file documented as of this encounter Visit Diagnoses Not on filedocumented in this encounter
--- OUTSIDE RECORDS SUMMARY | 2024-09-13 06:35 | XMS_ITS | Encounter Summary ---
Author Organization [facility] Address [facility] [place] [address] [place] [address] Care Team Providers Care Spinning Lathe Operator Automatic Name Role Phone Sebastien Sequeira MD Primary Care Provider [phone] Encounter Details Date Type Department Care Team (Latest Contact Info) Description 11/06/2020 10:00 AM REGISTERED PHARMACIST - 11/06/2020 11:11 AM REGISTERED PHARMACIST Hospital Encounter [facility] [address] [place] [address] Gustavo So MD [address] [place] [address] Discharge Disposition: Home or Self Care (Routine [...] COVID-19? No / Unsure 11/06/2020 10:15 AM REGISTERED PHARMACIST documented as of this encounter Medications at [...] Priority Date/Time Associated Diagnosis Comments XR PELVIS AP+MARITZA FROG HIPS 2V Routine 11/06/2020 10:39 AM REGISTERED PHARMACIST Status post total replacement of left hip documented in this encounter Results * XR PELVIS AP+MARITZA FROG HIPS 2V (11/06/2020 10:39 AM REGISTERED PHARMACIST) Anatomical Region Laterality Modality NA Radiographic [place] ging 11/06/2020 2:19 PM REGISTERED PHARMACIST Impressions 11/06/2020 2:22 PM REGISTERED PHARMACIST IMPRESSION: 1. Status post left hip arthroplasty with no complicating features. 2. Moderately severe degenerative changes right hip. Referred By: GUSTAVO SO Interpreted By: Yoni Hernández MD, 11/06/2020 2:19 PM Narrative 11/06/2020 2:22 PM REGISTERED PHARMACIST Exam description: XR PELVIS AP+MARITZA FROG HIPS 2V Exam Time : 11/06/2020 10:20 AM Comparison Film : 09/25/2020 Indication: post-op LTHA ?? . Right hip pain. ?? Technique: Low AP pelvis weightbearing view obtained as well as lateral views of both hips. Findings: Left hip arthroplasty appears in satisfactory position. No complicating features. Moderately severe degenerative changes involving right hip with joint space narrowing and marginal osteophytes. No fracture or destructive bony abnormality. Procedure Note Yoni Hernández MD - 11/06/2020 Exam description: XR PELVIS AP+MARITZA FROG HIPS 2V Exam Time : 11/06/2020 10:20 AM Comparison Film : 09/25/2020 Indication: post-op LTHA . Right hip pain. Technique: Low AP pelvis weightbearing view obtained as well as lateral views of both hips. Findings: Left hip arthroplasty appears in satisfactory position. No complicating features. Moderately severe degenerative changes involving right hip with joint space narrowing and marginal osteophytes. Nofracture or destructive bony abnormality. IMPRESSION: 1. Status post left hip arthroplasty with no complicating features. 2. Moderately severe degenerative changes right hip. Referred By: GUSTAVO SO Interpreted By: Yoni Hernández MD, 11/06/2020 2:19 PM us Gustavo So MD GENERAL IMAGING Final Result documented in this encounter Visit Diagnoses Diagnosis Status post total replacement of left hip documented in this encounter Care Teams Spinning Lathe Operator Automatic Relationship Specialty Start Date End Date Sebastien Sequeira MD [address] [place] [id number] PCP - General INTERNAL MEDICINE 08/02/20 documented as of this encounter
--- OUTSIDE RECORDS SUMMARY | 2024-09-13 06:35 | XMS_ITS | Encounter Summary ---
Author Organization [facility] Address [facility]ly [facility] [place] [address] [place] [address] Care Team Providers Care Monitoring Tech Name Role Phone Stella Obrien MD Primary Care Provider [phone] Reason for Referral * (Routine) - Canceled Specialty Diagnoses / Procedures Referred By Contac t Referred To Contact Procedures PT Eval and Gustavo Villeda MD [address] [place] [id number] Phone: tel: fax: Referral ID Status Reason Start Date Expiration Date V isits Requested Visits Authorized [id number] Canceled 08/13/2020 09/12/2021 1 1 RMAN * (Routine) - Canceled Specialty Diagnoses / Procedures Referred By Contac t Referred To Contact Procedures OT Eval and Gustavo Villeda MD [address] [place] [address] Phone: tel: fax: Referral ID Status Reason Start Date Expiration Date V isits Requested Visits Authorized [id number] Canceled 08/13/2020 09/12/2021 1 1 RMAN Reason for Visit * Auth/Cert Specialty Diagnoses / Procedures Referred By Aaron t Referred To Contact Diagnoses M16.12 Procedures LEFT Total Hip ArthroplastyOutpatient StatusNate notified Referral ID Status Reason Start Date Expiration Date Visits Re quested Visits Authorized [id number] 1 1 Encounter Details Date Type Department Care Team (Latest Contact Info) Description 08/13/2020 8:06 AM EDGERMAN - 08/14/2020 4:30 PM EDGERMAN Hospital Encounter [place] [facility] [address] [facility] [place] [address] Gustavo Salmeron MD [address] [place] [address] Discharge Disposition: Home or Self Care (Routine [...] COVID-19? No / Unsure 08/13/2020 8:06 AM EDGERMAN documented as of this encounter Last Filed Vital Signs Vital Sign Reading Time Taken Comments Blood Pressure 113/59 08/14/2020 9:00 AM EDGERMAN Pulse 85 08/14/2020 9:00 AM EDGERMAN Temperature 36.3 ??C (97.4 ??F) 08/14/2020 9:00 AM CS T Respiratory Rate 18 08/14/2020 9:00 AM EDGERMAN Oxygen Saturation 96% 08/14/2020 12:00 AM EDGERMAN Inhaled Oxygen Concentration - - Weight 130.6 kg (288 lb) 08/07/2020 10:42 AM EDGERMAN Height 180.3 cm (5' 11 ) 08/07/2020 10:42 AM EDGERMAN Body Mass Index 40.17 08/07/2020 10:42 AM EDGERMAN documented in this encounter Discharge Summaries * Adele Garcia, BROADCAST NEWS PRODUCER-BC - 08/14/2020 4:30 PM CST Discharge Summary Patient: Gilma Mills is a 70-year-old female : 1950 Medical Record: [id number] Admit Date: 08/13/2020 8:06 AM Admission Diagnosis: [...] Your Medications These medications were sent to [facility] [address] [place] [address] ?? HYDROcodone-acetaminophen 5-325 MG tablet You can get these medications from any pharmacy You don't need a prescription for these medications ?? aspirin EC 325 MG tablet Signed MUKESH FRANK Cosigned by Gustavo Salmeron MD at 08/30/2020 4:10 PM EDGERMAN RMAN RMAN documented in this encounter Discharge Instructions * Discharge Instructions* Rosalee Sorensen RN - 08/14/2020 2:59 PM EDGERMAN Images from the original note were not [...] A short stay in rehab or a fci facility will often help. ?? You may [...] may want to use things like a telegraph service rater, long-handled sponge, sock aid, or long-handled shoe [...] breaks open. Where can I learn more? [employer] [employer] https://orthoinfo.aaos.org/en/treatment/hkvnf-urk-qnxfqyhjbvq/ National [place] of Arthritis and Musculoskeletal and Skin Disease https://www.niams.nih.gov/health-topics/ahv-stmcrwvcspq-wexllbf NHS Choices https://www.nhs.uk/conditions/hip-replacement/ Last Reviewed Date 2018-06-18 [...] right for you. Copyright Copyright ?? 2020 [employer]. and its affiliates and/or licensors. All rights reserved. RMAN documented in this encounter Medications at Time [...] as of this encounter Progress Notes * Divine Maldonado RN - 08/14/2020 4:20 PM CST Patient is being discharged RMAN * Radha Ackerman PTA - 08/14/2020 3:56 [...] be completed until beginning outpatient therapy in [place]. Pt is leaving this afternoon. Pt was [...] Call light within reach;Nursing aware of session RMAN * Radha Ackerman PTA - 08/14/2020 3:56 PM CST Pt is adequate for discharge and will be attending outpatient therapy in [place]. RMAN * Radha Ackerman PTA - 08/14/2020 3:49 [...] Inpatient PT Time Calculation PT Start Time 0949 PT Stop Time 1021 PT Time Calculation [...] Call light within reach;Nursing aware of session RMAN * Jennifer Northoggins, OT - 08/14/2020 1:36 PM CST SFL [...] ??? TOTAL KNEE ARTHROPLASTY Bilateral Subjective: Pain: 10/24 Pain Location: L hip Pt was sitting [...] WNL Sensation WNL WNL ROM WNL WNL Case Management Assistant Strength 4+/5 4+/5 Shoulder flexion 4+/5 4+/5 Shoulder abduction 4+/5 4+/5 Elbow flexion 4+/5 4+/5 Elbow extension 4+/5 4+/5 Transfers: Bed mobility/rolling: Bollinger Supine <> sit: Bollinger Sit <> stand: Bollinger Stand-pivot: Bollinger Toilet transfer: Supervision Assistive Device utilized during transfers: 2 wheeled walker ADLs Feeding: Bollinger Toileting: Supervision UB Dressing: Bollinger LB Dressing: Supervision Grooming: Bollinger Bathing: Supervision Activity performed this session: Self Care/Home management 15711: Time: 15 Education: Pt educated about purpose [...] light within reach, and all needs met. RMAN * Krystal Quigley RN - 08/14/2020 9:38 AM CST Pt lives at home with . Pt states that her will be able to help at home. She states she has daughters that will help too. Pt will need a walker at discharge, she plans to do OP therapyat [facility] in [place]. RMAN * Adele Garcia BROADCAST NEWS PRODUCER-BC - 08/14/2020 8:16 AM CST Daily Progress [...] set her up with outpatient PT in [place] upon discharge. Signed MUKESH FRANK 08/14/2020 Cosigned by Gustavo Salmeron MD at 08/14/2020 2:45 PM EDGERMAN RMAN RMAN * Lori Richardson, PT - 08/13/2020 4:42 PM CST SFL Physical Therapy Inpatient Evaluation Time In: 151 Time Out: 1525 Gilma Mills M16.12 Past Medical History: Diagnosis Date ??? [...] Precautions/Restrictions: IV Canseco Catheter Transfers: Bed mobility/rolling: Bollinger Supine to sit: Min A Sit to [...] in Bed and Call Light in Reach RMAN documented in this encounter H&P Notes * [...] during recuperation were discussed with the patient/family/personal commercial representative. Reasonable alternatives to the patient's proposed procedure/surgery including benefits, risks, and side effects related to the alternatives and the risks related to not receiving the proposed care were also discussed with the patient/family/personal commercial representative. Questions were answered and the patient/family/personal commercial representative verbalized understanding and desires to proceed. RMAN Source Note - Gustavo Salmeron MD - 08/03/2020 11:15 AM EDGERMAN Chief Complaint: Hip Pain (LEFT ) History of Present Illness: Gilma Mills is a 70-year-old female who presents to the office for Hip Pain (LEFT ) Patient has been having LEFT hip pain for over 1 year. She states that she was Dr. Song at [facility] and was told that she [...] She has been taking Tylenol, ibuprofen, and [place] for pain relief. She does use a [...] file Gets together: Not on file Attends hinduism service: Not on file Active member of [...] up: Return for Post-Op. GUSTAVO SALMERON MD RMAN RMAN RMAN documented in this encounter OR Notes * Op Note - Gustavo Salmeron MD - 08/13/2020 1:04 PM CST Gilma Mills 1950 [id number] 08/13/2020 Preoperative Diagnosis: End-stage left hip osteoarthritis Postoperative Diagnosis: Same Procedure: left total hip arthroplasty using a DePuy Chugach standard offset 7 stem with a +8 x 36 mm metal head in a 52 mm Treadwell shell using a +4/10 degree polyethylene liner [...] needle counts werecorrect x2 following the procedure RMAN * Brief Op Note - Gustavo Salmeron MD - 08/13/2020 1:03 PM CST [facility] Brief Op [facility]LEFT Total Hip Arthroplasty Outpatient Status Procedure Note Gilma Mills 08/13/2020 0943 Procedure(s) (LRB): LEFT Total Hip Arthroplasty Outpatient Status (Left) Surgeon(s): Gustavo Salmeron MD Transportation Inspector: Custodial Maintenance Worker: DELICIA Gresham Anesthesia: Spinal Pre-Op Diagnosis: M16.12 Post-Op Diagnosis: Same Findings: Estimated Blood Loss: 400 Specimens: None GUSTAVO SALMERON MD Date: 08/13/2020 Time: 1:03 PM RMAN documented in this encounter Miscellaneous Notes * Quality Indicator-Admission - Krystal Quigley RN - 08/10/2020 10:48 AM CSTSummary: OP ALEXUS CM called patient to go over patient's OP status for her ALEXUS. Pt aware that Medicare and her supplement will draft roller picker the bill but she will have an out of pocket cost for her home medications. Pt has an extra set of clothes packed already but will need a walker upon discharge. Pt plans to do OP therapy at [facility] in [place]. RMAN documented in this encounter Plan of Treatment [...] HEMOGLOBIN AND HEMATOCRIT Routine 08/14/2020 4:50 AM EDGERMAN XR PELVIS 1 OR 2 VIEWS Today 08/13/2020 11:58 AM EDGERMAN ARTHROPLASTY HIP TOTAL 08/13/2020 10:02 AM EDGERMAN M16.12 documented in this encounter Results * (ABNORMAL) HEMOGLOBIN AND HEMATOCRIT (08/14/2020 4:50 AM EDGERMAN) HGB 10.7(L) 12.0 - 16.0 G/DL 08/14/2020 5:33 AM EDGERMAN [facility] HCT 33.4(L) 36.0 - 47.0 % 08/14/2020 5:33 AM EDGERMAN [facility] 08/14/2020 4:50 AM EDGERMAN us Gustavo Salmeron MD LABORATORY Final Result [facility] [address] [place] [address], * XR PELVIS 1 OR 2 VIEWS (08/13/2020 11:58 AM EDGERMAN) Anatomical Region Laterality Modality Pelvis Radiographic Charlotte ging 08/13/2020 12:0 1 PM EDGERMAN Impressions 08/13/2020 12:04 PM EDGERMAN IMPRESSION: Interval intraoperative left hip arthroplasty hardware placement and associated findings. Interpreted By: Makenna Grady MD, 08/13/2020 12:01 PM Narrative 08/13/2020 12:04 PM EDGERMAN EXAMINATION: ??INTRAOPERATIVE PELVIS RADIOGRAPH(S) INDICATION: Intraoperative evaluation, [...] Status post total replacement of left hip Primary osteoarthritis of left hip Primary localized osteoarthrosis, pelvic region and thigh Status post total replacement of left hip documented in this encounter Administered Medications Inactive [...] 24 hours., Pre-Op Given 08/13/2020 8:28 AM EDGERMAN 500 mg aspirin EC (ECOTRIN) tablet 325 mg 325 mg, Oral, 2 times daily with meals, First dose on Thu08/14/20 at 0800, Until Discontinued, Start the morning after surgery Do not break, chew, or crush., Post-Op Given 08/14/2020 8:29 AM EDGERMAN 325 mg ceFAZolin (ANCEF) 3 g in [...] time., Post-Op New Bag 08/14/2020 2:06 AM EDGERMAN 3 g 200 mL/hr New Bag 08/13/2020 5:45 PM EDGERMAN 3 g 200 mL/hr celecoxib (CeleBREX) 100 MG capsule 1 dose, Starting on Thu08/13/20 at 0751, Until Thu08/13/20 at 0828, Created by cabinet override celecoxib (CeleBREX) capsule 100 mg 100 mg, Oral, Once, 1 dose, On Thu08/13/20 at 0845, Do not administer with antacids, Pre-Op Given 08/13/2020 8:28 AM EDGERMAN 100 mg chlorhexidine (PERIDEX) 0.12 % solution 15 mL 15 mL, Mouth/Throat, Once, 1 dose, On Thu08/13/20 at 0845, Patient to perform oral care first. Swish/gargle in mouth for 30 seconds, and then discard prior to going to surgery. If ventilated use saturated swab to clean oral cavity., Pre-Op Given 08/13/2020 8:28 AM EDGERMAN 15 mLs docusate sodium (COLACE) capsule 100 mg 100 mg, Oral, Daily, First dose on Thu08/13/20 at 1430, Until Discontinued, Post-Op Given 08/14/2020 8:32 AM EDGERMAN 100 mg famotidine (PEPCID) injection 20 mg 20 mg, Intravenous, Every 12 hours scheduled, First dose on Thu08/13/20 at 2100, Until Discontinued, Give if unable to take PO. IV Push over 2 minutes, Post-Op famotidine (PEPCID) tablet 20 mg 20 mg, Oral, Every 12 hours scheduled, First dose on Thu08/13/20 at 2100, Until Discontinued, Post-Op Given 08/14/2020 8:32 AM EDGERMAN 20 mg Given 08/13/2020 9:09 PM EDGERMAN 20 mg HYDROcodone-acetaminophen (NORCO) 10-325 MG tablet 1 tablet 1 tablet, Oral, Every 4 hours PRN, Moderate pain (Scale 4 - 7), Starting on Thu08/13/20 at 1407, Until Thu08/14/20 at 1841, Maximum dose of acetaminophen is 4000 mg from all sources in 24 hours., Post-Op Given 08/14/2020 3:52 PM EDGERMAN 1 tablet Given 08/14/2020 8:29 AM EDGERMAN 1 tablet Given 08/13/2020 9:18 PM EDGERMAN 1 tablet lactated ringers infusion at 10 mL/hr, Intravenous, Continuous, Starting on Thu08/13/20 at 0845, Until Thu08/14/20 at 0736, Infuse at TKO rate, Pre-Op New Bag 08/13/2020 12:10 PM EDGERMAN New Bag 08/13/2020 8:39 AM EDGERMAN 10 mL/hr lactated ringers infusion at 75 mL/hr, Intravenous, Continuous, Starting on Thu08/13/20 at 1430, Until Thu08/14/20 at 0736, May discontinue IV Fluid when adequate oral intake, Post-Op New Bag 08/13/2020 11:47 PM EDGERMAN 75 mL/hr levothyroxine (SYNTHROID) tablet 125 mcg 125 mcg, Oral, Daily, First dose on Thu08/13/20 at 1430, Until Discontinued, Avoid iron, calcium, and antacids within 4 hours of administration. Given 08/14/2020 8:30 AM EDGERMAN 125 mcg propranolol LA (INDERAL LA) 24 hr capsule 160 mg 160 mg, Oral, Nightly at bedtime, First dose on Thu08/14/20 at 2100, Until Discontinued, Swallow capsule whole. Do not open, chew, or crush. spironolactone (ALDACTONE) tablet 100 mg 100 mg, [...] Recently Administered Medications Times are shown in EDGERMAN. Scheduled Medication Order 08/12/2020 08/13/2020 08/14/2020 acetaminophen [...] 1) 3 g, Intravenous, at 200 mL/hr, teacher physically impaired, 1 dose, On Thu08/13/20 at 0845, Give [...] Post-Op 1745 (New Bag - Provider: Kim ePmberton RN)1900 (Infusion Stop Time - Provider: Jenny Frost RN) 0206 (New Bag - Provider: Jenny Frost RN)0240 (Infusion Stop Time - Provider: Jenny Frost RN) celecoxib (CeleBREX) capsule 100 mg (COMPLETED) 100 mg, Oral, Once, 1 dose, On Thu08/13/20 at 0845, Do not administer with antacids, Pre-Op 827 (Given - Provider: Dayami Ngo RN) chlorhexidine (PERIDEX) 0.12 % solution 15 mL (COMPLETED) 15 mL, Mouth/Throat, Once, 1 dose, On Thu08/13/20 at 0845, Patient to perform oral care first. Swish/gargle in mouth for 30 seconds, and then discard prior to going to surgery. If ventilated use saturated swab to clean oral cavity., Pre-Op 827 (Given - Provider: Dayami Ngo RN) docusate sodium (COLACE) capsule 100 mg 100 mg, Oral, Daily, First dose on Thu08/13/20 at 1430, Until Discontinued, Post-Op 1652 (Not Given - Provider: Kim Pemberton RN [...] RN) 0832 (See Alternative - Provider: Divine Maldonado RN) famotidine (PEPCID) tablet 20 mg(Linked Group [...] Kim Pemberton RN - Reason: Patient/family declined) 829 (Given - Provider: Divine Maldonado, RN) nortriptyline [...] Kim Pemberton RN - Reason: Patient/family declined) 08 (Not Given - Provider: Divine Maldonado RN - Reason: Patient/family declined) pregabalin (LYRICA) [...] 0815 (Infusion Stop Time - Provider: Divine Maldonado, PRITI) PRN Medication Order 08/12/2020 08/13/2020 08/14/2020 ALPRAZolam [...] from all sources in 24 hours., Post-Op 2117 (Given - Provider: Jenny Frost RN) 0829 (Given - Provider: Divine Maldonado, RN)1552 (Given - Provider: Divine Maldonado RN) HYDROcodone-acetaminophen (NORCO) 5-325 MG tablet 1 tablet [...] (CANCELED) 2 g, Intravenous, at 200 mL/hr, teacher physically impaired, 1 dose, On Thu08/13/20 at 0845, Give 2 gram dose for patients less than 120 kg. Give within 60 minutes of surgical incision., Pre-Op Or ceFAZolin (ANCEF) 3 g in NS 100 mL IVPB (COMPLETED)Jump to med 3 g, Intravenous, at 200 mL/hr, teacher physically impaired, 1 dose, On Thu08/13/20 at 0845, Give [...] Post-Op documented in this encounter Care Teams Monitoring Tech Relationship Specialty Start Date End Date Stella Obrien MD [address] [place] [address] PCP - General INTERNAL MEDICINE 08/02/20 documented as of this encounter
--- OUTSIDE RECORDS SUMMARY | 2024-09-13 06:35 | XMS_ITS | Encounter Summary ---
Author Organization [facility] Address [facility] [place] [address] [place] [address] Care Team Providers Care Regulator Pin Inserter Name Role Phone Sebastien Sequeira MD Primary Care Provider [phone] Encounter Details Date Type Department Care Team (Latest Contact Info) Description 08/03/2020 10:55 AM TATTOO AND BODY ARTIST - 08/03/2020 11:59 PM TATTOO AND BODY ARTIST Hospital Encounter [facility] [address] [place] [address] Gustavo So MD [address], [place] [id number] Discharge Disposition: Home or Self Care (Routine [...] COVID-19? No / Unsure 08/03/2020 10:45 AM TATTOO AND BODY ARTIST documented as of this encounter Medications at [...] Comments XR PELVIS AP+LT HIP 1V Routine 08/03/2020 11:36 AM TATTOO AND BODY ARTIST Left hip pain documented in this encounter Results * XR PELVIS AP+LT HIP 1V (08/03/2020 11:36 AM TATTOO AND BODY ARTIST) Anatomical Region Laterality Modality Pelvis, Hip Radiographic Charlotte ging 08/03/2020 2:13 PM TATTOO AND BODY ARTIST Impressions 08/03/2020 2:17 PM TATTOO AND BODY ARTIST IMPRESSION: No acute findings. Stable degenerative changes as described. Interpreted By: Aki Adams MD, 08/03/2020 2:13 PM Narrative 08/03/2020 2:17 PM TATTOO AND BODY ARTIST Examination: Pelvis and left hip. Exam time: 1058 hours. Clinical history: Left hip pain. Comparison: AP pelvis, 07/18/2020 ([facility]). Technique: Weightbearing AP pelvis centered for the [...] Left hip pain. Comparison: AP pelvis, 07/18/2020 ([facility]). Technique: Weightbearing AP pelvis centered [...] this encounter Visit Diagnoses Diagnosis Left hip pain Pain in joint, pelvic region and thigh documented in this encounter Care Teams Regulator Pin Inserter Relationship Specialty Start Date End Date Sebastien Sequeira MD [address] [place] [phone] PCP - General INTERNAL MEDICINE 08/02/20 documented as of this encounter
--- OUTSIDE RECORDS SUMMARY | 2024-09-13 06:35 | XMS_ITS | Encounter Summary ---
Author Organization [facility] Address [address] [place] [address]. [place] [address] [place] [address] Care Team Providers Care Bucket Hooker Name Role Phone Sebastien Sequeira MD Primary Care Provider [phone] Reason for Visit * Reason Comments Therapy Report (SCAN) Encounter Details Date Type Department Care Team (Late st Contact Info) Description 09/24/2020 Scan [facility] [address] [place] [address] Scanned, Documents Therapy Report (SCAN) Social History [...] COVID-19? No / Unsure 09/25/2020 10:50 AM RECRUITMENT AND OUTREACH ASSISTANT documented as of this encounter Plan of Treatment Not on file documented as of this encounter Goals Goal Patient Goal Type Associated Problems Recent Progress Patient-Stated? Author Safety - able to safely ambulate at home; tripping hazards removed from the home General No Krystal Quiglye, RN Note: Pt wants to go home safely with new walker. Pt made aware that therapy will work with her on safety. documented as of this encounter Visit Diagnoses Not on filedocumented in this encounter Care Teams Bucket Hooker Relationship Specialty Start Date End Date Sebastien Sequeira MD [address] [place] [address] PCP - General INTERNAL MEDICINE 08/02/20 documented as of this encounter
--- OUTSIDE RECORDS SUMMARY | 2024-09-13 06:35 | XMS_ITS | Encounter Summary ---
Author Organization [facility] Address [facility] [place] [address] [place] [address] Care Team Providers Care Perishable Fruit Inspector Name Role Phone Unavailable Primary Care Provider Unavailabl e Encounter Details Date Type Department Care Team (Latest Contact Info) Description 11/14/2014 Abstract [facility] Jenna Yusuf MD [address] [place] [address] Social History Tobacco Use Types Packs/Day Years Used Date Smoking Tobacco: Never Assessed Comments Unknown Sex and Gender Information Value Date Recorded Sex Assigned at Not on file Legal Sex Female 2:03 AM CDT Gender Identity Not on file Sexual Orientation Not on file documented as of this encounter Last Filed Vital Signs Vital Sign Reading Time Taken Comments Blood Pressure 118/80 11/14/2014 11:54 AM ASSESSMENT SPECIALIST Pulse 83 11/14/2014 11:54 AM ASSESSMENT SPECIALIST Temperature - - Respiratory Rate - - Oxygen Saturation - - Inhaled Oxygen Concentration - - Weight 115.2 kg (254 lb) 11/14/2014 11:54 AM ASSESSMENT SPECIALIST Height 180.3 cm (5' 11 ) 11/14/2014 11:54 AM ASSESSMENT SPECIALIST Body Mass Index 35.43 11/14/2014 11:54 AM ASSESSMENT SPECIALIST documented in this encounter Progress Notes * Jenna Yusuf MD - 11/14/2014 11:45 AM CST Referring Provider Referring Provider: Dr. Sequeira Assessment Assessed 1. Apnea, sleep (780.57) (G47.30) 2. Never a smoker A 64-year-old average built, non-smoker with mild obstructive sleep apnea, controlled restless leg syndrome, and intermittent insomnia who is being followed for excessive daytime sleepiness which seems to be much improved since medication changes were made particularly since she went off of propranolol. 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 Plan Apnea, sleep 1. Status:Complete; Done: 14Nov2014 Last Updated By:Lynnette Denton; 11/14/2014 11:58:09 AM;Ordered; For:Apnea, sleep; Ordered By:Jenna Yusuf; Apnea, sleep, Post-nasal drip 2. Follow-up visit in 6 months Outpatient Follow-up Status: Hold For - Scheduling Requested for: 15May2015 10:00AM Ordered; For: Apnea, sleep, Post-nasal drip; Ordered By: Jenna Yusuf Performed: Due: 29May2015;Last Updated By: Lori Young; 11/14/2014 1:17:55 PM Plan Comments: The patient was counseled about fixing her wake time, avoiding naps and, if absolutely necessary, taking them before 2 to 3 in the afternoon. Also advised against watching the clock at night. She will obtain a download for me and have it faxed to our office. Unless some issues arise, I will plan on seeing her back only in 6 months. History of Present Illness HPI Free Text: A 64-year-old non-smoker with mild obstructive sleep apnea, being followed for excessive daytime sleepiness, satisfactorily controlled RLS, who has done well changing medications particularly from propranolol to topiramate and who is tolerating her CPAP much better with a new nasal mask that was prescribed after her PAP-NAP study. Her chronic rhinosinusitis is slightly improved on Flonase. She still has intermittent trouble with excessive daytime sleepiness but uses 5- hour ENERGY and coffee to alleviate her symptoms and reports that she needs to do that only once every few weeks for days whenshe is particularly having trouble. She has switched her mask to Respironics Nuance nasal pillow, size small. Has not been able to turkey picker a new download from her machine. She is having intermittent trouble with insomnia about once or twice a week, usually minor. She has had to go back on clonazepam due to spasms in her eyelids. Review of Systems Review of Systems: Constitutional: fatigue Head Eyes Ears Nose and Throat: hoarseness nasal congestion Cardiovascular: Lightheadedness. Edema was present. Respiratory: ESS: 13/24, cough and orthopnea Gastrointestinal: Negative. Genitourinary: Negative. Musculoskeletal: joint pain localized to one or more joints and joint swelling Integumentary: Negative. Neurological: headache and dizziness Psychiatric: insomnia, anxiety and depression Endocrine: hot flashes Hematologic/Lymphatic: a tendency for easy [...] Social History Problems ?? Never a smoker Current Meds 1. [...] Therapy: 21Sep2014 to (Last Rx:21Sep2014) Ordered 5. Fluticasone Propionate 50 MCG/ACT Nasal Suspension; USE 2 SPRAYS IN EACH NOSTRIL TWICE DAILY; Therapy: 41Frv1015 to (Evaluate:14Feb2015) Requested for: [id number]; Last Rx:[id number] Ordered 6. Furosemide 40 MG Oral Tablet; Take 1 tablet daily; Therapy: 05Jul2013 to (Evaluate:[id number]) Recorded 7. Hydrocodone-Acetaminophen 5-325 MG Oral Tablet; TAKE 1 TABLET EVERY 8 HOURS PRN; Therapy: 05Jun2014 to Recorded 8. Ibuprofen 200 MG Oral Tablet; TAKE NEEDED AND DIRECTED; Therapy: (Recorded:21Sep2014) to Recorded 9. Levothyroxine Sodium 75 MCG Oral Tablet; TAKE 1 TABLET DAILY; Therapy: 15Nov2013 to Recorded 10. Lyrica 100 MG Oral Capsule; TAKE 2 CAPSULE Bedtime; Therapy: 09Feb2014 to (Evaluate:[id number]) Recorded 11. Nortriptyline HCl - 25 MG Oral Capsule; TAKE 1 CAPSULE AT BEDTIME; Therapy: 15Nov2013 to Recorded 12. Pravastatin Sodium 40 MG Oral Tablet; TAKE 1 TABLET DAILY AT BEDTIME; Therapy: 16Sep2013 to Recorded 13. ROPINIRole HCl - 2 MG Oral Tablet; TAKE 2 TABLET Bedtime; Therapy: 09Feb2014 to (Evaluate:[id number]) Recorded 14. Spironolactone 100 MG Oral Tablet; TAKE 1 TABLET DAILY; Therapy: 18Sep2014 to Recorded 15. Topiramate 25 MG Oral Tablet; TAKE 3 TABLET Daily; Therapy: 15Aug2014 to (Evaluate:14Sep2014) Recorded 16. TraMADol HCl - 50 MG Oral Tablet; TAKE 1 TABLET 4 TIMES DAILY NEEDED FOR PAIN; Therapy: 20Oct2013 to (Evaluate:[id number]) Recorded 17. Venlafaxine HCl ER 150 MG Oral Capsule Extended Release 24 Hour; TAKE 2 CAPSULE Bedtime; Therapy: 15Nov2013 to Recorded Allergies Medication 1. No Known Drug Allergies Vitals Vital Signs [Data Includes: Current Encounter] Recorded: 14Nov2014 11:54AM Temperature 97 F Heart Rate 83 Respiration 16 Systolic 118 Diastolic 80 O2 Saturation 95, RA Height 5 ft 11 in Weight 254 lb BMI Calculated 35.43 BSA Calculated 2.33 Immunizations Influenza --- Series1: 2013 Pneumococcal --- Series1: 2010 Physical Exam Pulmonary Multi-System Exam: Constitutional: General appearance: Normal. Head and Face: [...] lungs: Normal. Clear. Abdomen Examination of Abdomen: Normal. Skin Skin and subcutaneous tissue: Normal. Musculoskeletal Inspection/palpation of digits and nails: Normal without clubbing or cyanosis. Muscle strength/tone: Normal. Neurological Orientation to person, place, and time: Normal. Recent and remote memory: Demonstrates normal memory. Attention span and concentration: Normal thought process and attention span. Names objects, able to repeat phrases and speaks spontaneously. Spirometry Spirometry: Her last spirometry was in August 2014 and was normal at that time. Results/Data Serum ferritin level checked in August 2014 was within normal limits at 196 ng/mL. Her CPAP download from February to March 2014 showed a very poor compliance of 6.7% and auto CPAP average pressure for 4 cm water pressure with a residual AHI of 1. Signatures Electronically signed by : Jenna Yusuf M.D.; Nov 16 2014 8:56AM ASSESSMENT SPECIALIST (Author) documented in this encounter Plan of Treatment Not on file documented as of this encounter Visit Diagnoses Not on filedocumented in this encounter
--- OUTSIDE RECORDS SUMMARY | 2024-09-13 06:35 | XMS_ITS | Encounter Summary ---
Author Organization [facility] Address [facility] [place] [address] [place] [address] Care Team Providers Care Assembly Inspector Name Role Phone Unavailable Primary Care Provider Unavailabl e Encounter Details Date Type Department Care Team (Late st Contact Info) Description 09/04/2014 Abstract [facility] [address] [place] [address] Jenna Yusuf MD [address] [facility] [place] [address] Social History Tobacco Use Types Packs/Day Years Used Date Smoking Tobacco: Never Assessed Comments Unknown Sex and Gender Information Value Date Recorded Sex Assigned at Not on file Legal Sex Female 2:03 AM CDT Gender Identity Not on file Sexual Orientation Not on file documented as of this encounter Plan of Treatment Not on file documented as of this encounter Visit Diagnoses Diagnosis Cough documented in this encounter
--- OUTSIDE RECORDS SUMMARY | 2024-09-13 06:35 | XMS_ITS | Encounter Summary ---
Author Organization [facility] Address [address] [place] [address]. [place], [place] [address] [place] [address] Care Team Providers Care Chief Analytics Officer Name Role Phone Unavailable Primary Care Provider Unavailabl e Encounter Details Date Type Department Care Team (Latest Contact Info) Description 08/16/2014 Abstract [facility] Social History Tobacco Use Types [...]
--- OUTSIDE RECORDS SUMMARY | 2024-09-13 06:35 | XMS_ITS | Encounter Summary ---
Author Organization [facility] Address [facility] [place] [address] [place] [address] Care Team Providers Care Rod Cup Filler Name Role Phone Unavailable Primary Care Provider Unavailabl e Encounter Details Date Type Department Care Team (Latest Contact Info) Description 08/22/2014 Abstract [facility] Social History Tobacco Use Types Packs/Day Years Used Date Smoking Tobacco: Never Assessed Comments Unknown Sex and Gender Information Value Date Recorded Sex Assigned at Not on file Legal Sex Female 2:03 AM CDT Gender Identity Not on file Sexual Orientation Not on file documented as of this encounter Progress Notes * Zabrina Coffey Md, MD - 08/22/2014 2:53 PM CST Message Message: Called and left a message to inform patient that lab results were normal. Signatures Electronically signed by : Mirta Lam, ; Aug 22 2014 2:54PM DEPARTMENT HELPER (Author) documented in this encounter Plan of Treatment Not on file documented as of this encounter Visit Diagnoses Not on filedocumented in this encounter
--- OUTSIDE RECORDS SUMMARY | 2024-09-13 06:35 | XMS_ITS | Encounter Summary ---
Author Organization [facility] Address [address] [place] [address]. [place] [address] [place] [address] Care Team Providers Care Cash Application Clerk Name Role Phone Sebastien Sequeira MD Primary Care Provider [phone] Encounter Details Date Type Department Care Team (Late st Contact Info) Description 11/07/2020 Orders Only [facility] [address], [place] [id number] Minerva Hendrickson RN Social History Tobacco Use [...] COVID-19? No / Unsure 11/06/2020 10:15 AM [employer] LABORATORY TECHNICIAN documented as of this encounter Plan of [...] this encounter Results * CORONAVIRUS (COVID 19) [employer] (11/16/2020 9:10 AM PETROLEUM LABORATORY TECHNICIAN) CORONAVIRUS SARS COV 2 PCR (RESP) NOT DETECTED NOT DETECTED 11/18/2020 8:06 AM PETROLEUM LABORATORY TECHNICIAN [employer] [facility] Comment: A Not Detected (negative) test result [...] providers and patients using the following websites: https://www.Trilo[employer].com/home/Covid-19/HCP/Quest[employer]/fact- sheet.html https://www.[employer].Everlater/home/Covid-19/Patients/ Quest[employer]/fact-sheet.html This test has been authorized by the FDA under an Emergency Use Authorization (EUA) for use by authorized laboratories. Due to the current public health emergency, [employer] is receiving a high volume of samples [...] about COVID-19 can be found at the [employer] website: www.Credor[employer].Everlater/Covid19. Test performed at [facility] [address] [place], [place] ??[address] Director: WALE SALINAS DO,MPH FIRST TEST NO 11/16/2020 9:07 AM [employer]LE[employer] LABORATORY TECHNICIAN [facility] EMPLOYED IN HEALTHCARE NO 11/16/2020 9:07 AM [employer]LE[employer] LABORATORY TECHNICIAN [facility] SYMPTOMATIC DEFINED BY CDC NO 11/16/2020 9:07 AM [employer]LE[employer] LABORATORY TECHNICIAN [facility] DATE OF SYMPTOM ONSET UNKNOWN 11/16/2020 9:11 AM [employer]LE[employer] LABORATORY TECHNICIAN [facility] HOSPITALIZATION STATUS NO 11/16/2020 9:07 AM [employer]LE[employer] LABORATORY TECHNICIAN [facility] PATIENT IN ICU NO 11/16/2020 9:07 AM [facility] RESIDENT OF [facility] NO 11/16/2020 9:07 AM [facility] NOT 11/16/2020 9:11 AM [facility] PATIENT'S RACE WHITE OR 11/16/2020 9:07 AM [facility] ETHNICITY NONHISPANIC 11/16/2020 9:07 AM [facility] SOURCE (QST) NASOPHARYNGEAL SWAB 11/16/2020 9:07 AM [facility] NASOPHARYNGEAL SWAB / Unknown 11/16/2020 9:10 AM [employer] LABORATORY TECHNICIAN us Gustavo So MD MICROBIOLOGY - GENERAL ORDERAB LES Final Result [facility] [place] [address], [employer] [facility] [address] [place] [address], * URINALYSIS WI REFLEX TO CULTURE (11/16/2020 7:30 AM [employer] LABORATORY TECHNICIAN) COLOR (U) YELLOW 11/16/2020 9:25 AM [facility] TRANSPARENCY CLEAR 11/16/2020 9:25 AM [facility] SPECIFIC GRAVITY (U) 1.025 1.000 - 1.025 11/16/2020 9:25 AM [facility] U PH 7.0 5.0 - 8.0 11/16/2020 9:25 AM [employer] LABORATORY TECHNICIAN [facility] LEUKOCYTES (U) NEGATIVE NEGATIVE 11/16/2020 9:25 AM [employer] LABORATORY TECHNICIAN [facility] NITRITES NEGATIVE NEGATIVE 11/16/2020 9:25 AM [facility] PROTEIN (U) NEGATIVE NEGATIVE 11/16/2020 9:25 AM [employer]LE[employer] LABORATORY TECHNICIAN [facility] URINE GLUCOSE NEGATIVE NEGATIVE 11/16/2020 9:25 AM [employer] LABORATORY TECHNICIAN [facility] KETONES MG/DL (U) NEGATIVE NEGATIVE 11/16/2020 9:25 AM [facility] UROBILINOGEN 0.2 <1.0 EU/DL 11/16/2020 9:25 AM [facility] BILIRUBIN (U) NEGATIVE NEGATIVE 11/16/2020 9:25 AM [facility] BLOOD (U) NEGATIVE NEGATIVE 11/16/2020 9:25 AM [facility] WBC/HPF 0-5 0 - 5 /HPF 11/16/2020 9:25 AM [facility] EPI/HPF OCCASIONAL /LPF 11/16/2020 9:25 AM [facility] CULTURE & SENSITIVITY INDICATED? NOT INDICATED 11/16/2020 9:25 AM [facility] URINE SPECIMEN OBTAINED BY CLEAN CATCH PROCEDURE / Unknown 11/16/2020 7:30 AM [employer]LE[employer] LABORATORY TECHNICIAN us Gustavo So MD URINE ORDERABLES Final Result [facility] [address] [place] [address], documented in this encounter Visit Diagnoses Diagnosis Primary osteoarthritis of right hip- Primary Primary localized osteoarthrosis, pelvic region and thigh Chronic left hip pain Pain in joint, pelvic region and thigh Chronic hip pain, right Pre-operative laboratory examination Pre-procedural laboratory examination documented in this encounter Care Teams Cash Application Clerk Relationship Specialty Start Date End Date Sebastien Sequeira MD [address] [place] [address] PCP - General INTERNAL MEDICINE 08/02/20 documented as of this encounter
--- OUTSIDE RECORDS SUMMARY | 2024-09-13 06:35 | XMS_ITS | Encounter Summary ---
Author Organization [facility] Address [facility] [place] [address] [place] [address] Care Team Providers Care Clinical Director Name Role Phone Unavailable Primary Care Provider Unavailabl e Encounter Details Date Type Department Care Team (Latest Contact Info) Description 09/06/2014 Abstract [facility] Jenna Yusuf MD [address] [facility] [place] [address] Social History Tobacco Use Types Packs/Day Years Used Date Smoking Tobacco: Never Assessed Comments Unknown Sex and Gender Information Value Date Recorded Sex Assigned at Not on file Legal Sex Female 2:03 AM CDT Gender Identity Not on file Sexual Orientation Not on file documented as of this encounter Procedure Notes * Jenna Yusuf MD - 09/06/2014 7:12 AM CST [place] SLEEP STUDY Patient Name: GILMA MILLS Patient Location: SLEE SLEEP Date of : 1950 Med Rec #: [id number] Admit/Service Date: 09/04/2014 Disch Date: 09/04/2014 Attending Physician: Jenna Yusuf M.D. Date/Time Dictated: 09/06/2014 07:12 a.m. Transcribed Date/Time: 09/06/2014 10:49 a.m. Surgery Date: cc: Jenna Yusuf M.D. Chart Document PAP-NAP REPORT HISTORY This is a 64-year-old lady with persistent fatigue and tiredness with an underlying diagnosis of mild obstructive sleep apnea, for which she is unable to be compliant with CPAP therapy. Indication for PAP-NAP To improve mask tolerance and find a mask of patient's choice. sleep ARCHITECTURE AND SUMMARY Lights out: 9:50 a.m. Lights on: 12:09 p.m. for a time in bed of 139 minutes. Total sleep time estimated to be 123.5 minutes, resulting in a sleep efficiency of 88.8%. Latency to sleep onset: 11.5 minutes. The patient spent all of the study time in a supine position. Respiratory event summary Prior to initiating CPAP therapy, the patient is on auto-PAP 5 to 15 at home. She was tried on various masks. The full-face mask that appeared to be the best was ResMed AirFit F10 full-face mask size large. However, patient most liked a Respironics Nuance nasal pillow size small which is what the study was started on. During sleep, the mask leak was noted to be very low. The patient was maintained on CPAP 7, at which she had 1 obstructive apnea, 2 central apneas, and 0 hypopneas, resulting in a residual AHI of 1.5 per hour. The patient woke up feeling great. Oxygen saturation summary Analysis of continuous O2 saturations revealed an average O2 sat of 95% and a minimum O2 sat of 91% during sleep. Time in minutes spent with saturations less than or equal to 88% was 0. cardiac The patient's rhythm was normal sinus. Average heart rate during the study was 74 beats a minute, and a minimum heart rate was 63 beats a minute. Interpretation This was a successful PAP-NAP study. The patient was able to find a mask which she tolerated very well and with which on CPAP 7, her sleep apnea appeared to be very well controlled. Recommend use of a Respironics Nuance nasal pillow size small with patient's home auto-PAP machine stopped alternatively. A CPAP pressure of 7 on this short PAP-NAP appeared to be therapeutic. Clinical correlation indicated. Electronically Signed By: Jenna Yusuf M.D. 09/06/2014 08:55 P Jenna Yusuf M.D. documented in this encounter Plan of Treatment Not on file documented as of this encounter Visit Diagnoses Not on filedocumented in this encounter
--- OUTSIDE RECORDS SUMMARY | 2024-09-13 06:35 | XMS_ITS | Encounter Summary ---
Author Organization [facility] Address [facility] [place] [address] [place] [address] Care Team Providers Care Skid Road Man Name Role Phone Sebastien Sequeira MD Primary Care Provider [phone] Reason for Visit * Auth/Cert Specialty Diagnoses / Procedures Referred By Aaron t Referred To Contact Diagnoses M16.12 Procedures LEFT Total Hip ArthroplastyOutpatient StatusNate notified Referral ID Status Reason Start Date Expiration Date Visits Re quested Visits Authorized [id number] 1 1 Encounter Details Date Type Department Care Team (Late st Contact Info) Description 08/13/2020 10:07 AM LEAK HUNTER Anesthesia Event [address] [place] [address] Nura Bey MD [facility] [place] [address] Anesthesia Record Procedure Summary Procedure Name Responsible Anesthesiologist Anesthesia Start Time Anesthesia Stop Time LEFT Total Hip Arthroplasty (Left: Hip) Nura Bey MD 08/13/20 1007 08/13/20 1311 Events Date Time Event Comment 08/13/2020 0904 AN SEARCH ENGINE OPTIMIZATION STRATEGIST Prepped 0904 AN Anesthesia Prepped 1007 An Start Patient ID and consent checked and patient reassessed. 1007 An Start Data 1008 Face Mask Applied 1015 1020 An Block 1022 Anesthesia Ready 1127 Quick Note Wide variation in blood pressure with little or no phenylephrine changes. Blood pressure cuff repositioned. 1304 an stop data 1311 Post Anesthetic Care Handoff I completed my handoff to the receiving nurse during which we: 1. Identified the patient 2. Identified the responsible provider 3. Reviewed the pertinent medical history 4. Discussed the surgical course 5. Reviewed intra-op anesthesia management and issues during anesthesia 6. Set expectations for post-procedure period 7. Allowed opportunity for questions and acknowledgement of understanding. 1311 An Stop Meds Name Total midazolam 2 mg/2 mL injection 2 mg fentaNYL (SUBLIMAZE) 100 mcg/2 mL inject ion 100 mcg propofol (DIPRIVAN) 500 mg/50 mL injecti on 1,066.35 mg BUpivacaine 0.75%-dextrose 8.25% intrath ecal injection 2 mL morphine (PF) (ASTRAMORPH) 1 mg/mL injec tion 200 mcg dexamethasone (DECADRON) 4 mg/mL injecti on 8 mg ondansetron (ZOFRAN) injection 4 mg phenylephrine 50 mg in NS 250 mL infusio n 1,070 mcg ROpivacaine 0.5%-EPINEPHrine 1:200,000 4 0 mL ceFAZolin (ANCEF) 3 g in NS 100 mL IVPB 3 g tranexamic acid (CYKLOKAPRON) injection 1,000 mg 1,000 mg ketamine 50 mg/mL injection 100 mg lactated ringers infusion 1,200 mL * Agents Name O2 Ancillary O2 * Blood No blood administrations on file. Lines, Drains, and Airways Type Details Placement Removal Peripheral IV Placement Date: 08/13/20; Placement Time: 0838; Placed Outside of This Facility?: No; Size: 20 G; Orientation: Left, Posterior; Location: Forearm; Site Prep: Chlorhexidine; Local Anesthetic: None; Inserted By: Kerry Kinney RN; Insertion attempts: 1; Ultrasound-guided Placement?: No; Patient Tolerance: Tolerated well; Removal Date: 08/14/20; Removal Time: 1456; Removal Reason: Patient Discharged 08/13/20 0838 by Dayami Ngo RN 08/14/20 1456 by Rosalee Sorensen RN Canseco Catheter 08/13/20; 1045; Hand hygiene performed, Site cleansed with sterile antiseptic, Sterile gloves, drape and lubricant used, Catheter inserted using aseptic technique, Drainage bag secured below level of bladder, Closed system maintained; Straight-tip; 18 Fr.; Per Order 08/13/20 1045 by Queta Regalado RN 08/14/20 0550 by Ricki Becerril RN Surgical/Incision 08/13/20; 1206; Surgical Wound; Hip; Left; cricket, xeroform, fluffs, tape. ; 08/14/20; 1841 08/13/20 1206 by Queta Regalado RN 08/14/20 1841 by Automatic Discharge Provider documented in this [...] COVID-19? No / Unsure 08/13/2020 8:06 AM LEAK HUNTER documented as of this encounter OR Notes * Anesthesia Postprocedure Evaluation - Marianne Can CRNA - 08/14/2020 7:30 AM CST Anesthesia Post-op Note [place] Procedure(s): LEFT Total Hip Arthroplasty (Left Hip) Anesthesia type: spinal Vitals: 08/14/20 0000 BP: 116/65 Vitals: 08/14/20 0000 Pulse: 80 Vitals: 08/14/20 0000 Resp: 18 Vitals: 08/14/20 0000 Temp: 36.2 ??C Vitals: 08/14/20 0000 SpO2: 96% Patient Location: Inpatient Unit Level of Consciousness: awake, alert and oriented Pain Management: pain being treated or addressed Airway Patency: patent Respiratory Status: spontaneous ventilation and acceptable Cardiovascular Status: acceptable, stable and hemodynamically stable Post-Op Nausea: none Postoperative Hydration: euvolemic Complications: no anesthesia complication HUNTER * Anesthesia Postprocedure Evaluation - Debora Flores CRNA - 08/13/2020 1:44 PM CST Anesthesia Post-op Note [place] Procedure(s): LEFT Total Hip Arthroplasty Outpatient Status (Left Hip) Anesthesia type: spinal Vitals: 08/13/20 1335 BP: 123/82 Vitals: 08/13/20 1335 Pulse: 66 Vitals: 08/13/20 1335 Resp: 18 Vitals: 08/13/20 1335 Temp: 36.3 ??C Vitals: 08/13/20 1335 SpO2: 99% Patient Location: PACU Level of Consciousness: awake, alert and oriented Pain Management: pain being treated or addressed Airway Patency: patent Respiratory Status: acceptable, spontaneous ventilation and room air Cardiovascular Status: acceptable, stable and hemodynamically stable Post-Op Nausea: none Postoperative Hydration: euvolemic Complications: no anesthesia complication HUNTER * Anesthesia Procedure Notes - Debora Flores CRNA - 08/13/2020 10:18 AM LEAK HUNTER Associated Order(s): Spinal Block Spinal Block Patient location during procedure: OR Reason for block: primary anesthetic Staffing Anesthesiology Provider: Debora Flores CRNA Performed by: MALINDA Preanesthetic Checklist Completed: patient identified, site marked, surgical consent, pre-op evaluation, timeout performed,IV checked, risks and benefits discussed and monitors and equipment checked Spinal Block Patient position: sitting Prep: povidone-iodine Patient monitoring: continuous pulse oximetry and blood pressure Approach: midline Ultrasound-guided Placement: No Location: L3-4 L3-4 Attempts: 2, Dose: 3 mL Needle Needle type: Pencil tip Needle gauge: 25 G Needle length: 5 cm Needle attempts: 1 Assessment Sensory level: T6 Events: positive free flow CSF Additional Notes SAB placed: Prep, drape. 3ml 1% lido local. Introducer placed. SAB needle placed. + CSF, - Blood. Injected meds as noted. Patient sitting for 3 min. Patient tolerated procedure well. HUNTER * Anesthesia Procedure Notes - Debora Flores CRNA - 08/13/2020 9:26 AM LEAK HUNTER Associated Order(s): Peripheral Block Peripheral Nerve Block Peripheral Block Procedure Start Time: 08/13/2020 9:15 AM Procedure Stop Time: 08/13/2020 9:19 AM Patient Location During Procedure: pre-op Reason for Block: at surgeon's request and post-op pain management Preanesthetic Checklist Completed: patient identified, site marked, consent, pre-op evaluation, timeout performed, IV checked, risks and benefits discussed and monitors and equipment checked Procedure Information Patient Position: Supine Prep: Chloraprep Patient Monitoring: blood pressure, continuous pulse ox, ECG/EKG and heart rate Block Type: Fascia Iliaca Laterality: left Injection Technique: single-shot Procedures: ultrasound guided Draping: sterile technique maintained Needle Needle Gauge: 22 G Needle Length: 2 in Needle Localization: anatomical landmarks and ultrasound guidance Test Dose: negative Local Volume: 40 mL Needle Attempts: 1 Assessment Injection Assessment: [...] timeout. Antiseptic prep. Sterile probe cover applied. HUNTER * Anesthesia Preprocedure Evaluation - Debora Flores CRNA - 08/07/2020 12:14 PM CST Anesthesia ROS/MED History Reviewed: Patient summary , ECG, Family history anesthesia, Anesthesia history , Medications , Labs Pre-Anesthetic State: alert, awake and responds appropriately Pulmonary (+) sleep apnea Cardiovascular Exercise tolerance:good (+) hypertension, (well controlled) Neuro/Psych (+) neuromuscular disease, (fibromyalgia), CVA (no residual symptoms ), depression GI/Hepatic/Renal (+) GERD, (well controlled) Endo/Other (+) obese, (Morbid), hypothyroidism GENERAL COMMENTS Propanolol-08/12/2020 pm ECG 08/07/20 SINUS RHYTHM Baby ASA 08/12/2020 Physical Evaluation Airway Mallampati: II TM Distance: >3 FB Neck ROM: normal Dental (upper dentures), (lower dentures) Pulmonary Pulmonary exam normal Breath sounds clear to auscultation Cardiovascular Rhythm: regular Rate: normal Cardiovascular exam normal Anesthesia Plan ASA 3 Intravenous Induction Anesthesia type: spinal Informed Consent Anesthetic plan and risks discussed with patient of whom consent was obtained. Use of blood products discussed with patient of whom consent was obtained. . HUNTER HUNTER documented in this encounter Plan of Treatment [...] Date/Time Associated Diagnosis Comments AN SPINAL Routine 08/13/2020 10:18 AM LEAK HUNTER MS AN PERIPHERAL BLOCK SINGLE-SHOT Routine 08/13/2020 9:26 AM LEAK HUNTER documented in this encounter Results * AN SPINAL (08/13/2020 10:18 AM LEAK HUNTER) Narrative Debora Flores CRNA - 08/13/2020 10:18 AM LEAK HUNTER Debora Flores CRNA ? 08/13/2020 10:19 AM Spinal Block Patient location during procedure: OR Reason for block: primary anesthetic Staffing Anesthesiology Provider: Debora Flores CRNA Performed by: MALINDA Preanesthetic Checklist Completed: patient identified, site marked, surgical consent, pre-op evaluation, timeout performed, IV checked, risks and benefits discussed and monitors and equipment checked Spinal Block Patient position: sitting Prep: povidone-iodine Patient monitoring: continuous pulse oximetry and blood pressure Approach: midline Ultrasound-guided Placement: ??No Location: L3-4 L3-4 Attempts: 2, Dose: ??3 mL Needle Needle type: Pencil tip Needle gauge: 25 G Needle length: 5 cm Needle attempts: 1 Assessment Sensory level: T6 Events: positive free flow CSF Additional Notes SAB placed: Prep, drape. 3ml 1% lido local. Introducer placed. SAB needle placed. + CSF, - Blood. Injected meds as noted. Patient sitting for 3 min. Patient tolerated procedure well. us Debora Flores CRNA MS ANESTHESIA Final Result * MS AN PERIPHERAL BLOCK SINGLE-SHOT (08/13/2020 9:26 AM LEAK HUNTER) Debora Hernandez CRNA - 08/13/2020 9:26 AM LEAK HUNTER Debora Flores CRNA ? 08/13/2020 ??9:27 AM Peripheral Nerve Block Peripheral Block Procedure Start Time: 08/13/2020 9:15 AM Procedure Stop Time: 08/13/2020 9:19 AM Patient Location During Procedure: pre-op Reason for Block: at surgeon's request and post-op pain management Preanesthetic Checklist Completed: patient identified, site marked, consent, pre-op evaluation, timeout performed, IV checked, risks and benefits discussed and monitors and equipment checked Procedure Information Patient Position: Supine Prep: Chloraprep Patient Monitoring: blood pressure, continuous pulse ox, ECG/EKG and heart rate Block Type: Fascia Iliaca Laterality: left Injection Technique: single-shot Procedures: ultrasound guided Draping: sterile technique maintained Needle Needle Gauge: 22 G Needle Length: 2 in Needle Localization: anatomical landmarks and ultrasound guidance Test Dose: negative Local Volume: 40 mL Needle Attempts: 1 Assessment Injection Assessment: [...] timeout. Antiseptic prep. Sterile probe cover applied. us Debora Flores CRNA MS ANESTHESIA Final Result documented in this encounter Visit Diagnoses Not on filedocumented in this encounter Administered Medications Inactive Administered Medications - up to 3 most recent administrations Medication Order MAR Action Action Date Dose Rate Site BUpivacaine 0.75% in dextrose 8.25% (intrathecal) (SENSORCAINE) 0.75-8.25 % injection Intrathecal, PRN, Starting on Thu08/13/20 at 1017, Until Thu08/13/20 at 1311, Anesthesia Intra-Op Given 08/13/2020 10:17 AM LEAK HUNTER 2 mLs ceFAZolin (ANCEF) 3 g in NS 100 mL IVPB 3 g, Intravenous, at 200 mL/hr, information systems technician, 1 dose, On Thu08/13/20 at 0845, Give 3 gram dose for patients 120 kg and greater. Give within 60 minutes of surgical incision., Pre-Op Given 08/13/2020 10:08 AM LEAK HUNTER 3 g dexamethasone (DECADRON) injection Intravenous, PRN, Starting on Thu08/13/20 at 1035, Until Thu08/13/20 at 1311, Anesthesia Intra-Op Given 08/13/2020 10:35 AM LEAK HUNTER 8 mg fentaNYL (SUBLIMAZE) injection Intravenous, PRN, Starting on Thu08/13/20 at 0914, Until Thu08/13/20 at 1311, Anesthesia Intra-Op Given 08/13/2020 9:14 AM LEAK HUNTER 100 mcg ketamine (KETALAR) injection PRN, Starting on Thu08/13/20 at 1040, Until Thu08/13/20 at 1311, Anesthesia Intra-Op Given 08/13/2020 11:38 AM LEAK HUNTER 50 mg Given 08/13/2020 10:40 AM LEAK HUNTER 50 mg lactated ringers infusion at 10 mL/hr, Intravenous, Continuous, Starting on Thu08/13/20 at 0845, Until Thu08/14/20 at 0736, Infuse at TKO rate, Pre-Op New Bag 08/13/2020 12:10 PM LEAK HUNTER New Bag 08/13/2020 8:39 AM LEAK HUNTER 10 mL/hr midazolam (VERSED) injection Intravenous, PRN, Starting on Thu08/13/20 at 0914, Until Thu08/13/20 at 1311, Anesthesia Intra-Op Given 08/13/2020 9:14 AM LEAK HUNTER 2 mg morphine (PF) (ASTRAMORPH) injection PRN, Starting on Thu08/13/20 at 1014, Until Thu08/13/20 at 1311, Anesthesia Intra-Op Given 08/13/2020 10:14 AM LEAK HUNTER 200 mcg ondansetron (ZOFRAN) injection Intravenous, PRN, Starting on Thu08/13/20 at 1008, Until Thu08/13/20 at 1311, Anesthesia Intra-Op Given 08/13/2020 10:08 AM LEAK HUNTER 4 mg phenylephrine (JENNIFFER-SYNEPHRINE) injection Intravenous, Continuous PRN, Starting on Thu08/13/20 at 1039, Until Thu08/13/20 at 1311, Anesthesia Intra-Op Rate/Dose Change 08/13/2020 12:32 PM LEAK HUNTER 5 mcg/min 0.03 mL/hr Rate/Dose Change 08/13/2020 11:10 AM LEAK HUNTER 10 mcg/min 0.06 m L/hr New Bag 08/13/2020 10:39 AM LEAK HUNTER 5 mcg/min 0.03 mL/hr propofol (DIPRIVAN) IV bolus Intravenous, Continuous PRN, Starting on Thu08/13/20 at 0933, Until Thu08/13/20 at 1311, Anesthesia Intra-Op Rate/Dose Change 08/13/2020 12:58 PM LEAK HUNTER 20 mcg/kg/min 15.67 mL/hr Rate/Dose Change 08/13/2020 12:24 PM LEAK HUNTER 40 mcg/kg/min 31. 3 mL/hr Rate/Dose Change 08/13/2020 11:42 AM LEAK HUNTER 45 mcg/kg/min 35. 3 mL/hr ROpivacaine 0.5%-EPINEPHrine 1:200,000 injection PRN, Starting on Thu08/13/20 at 0915, Until Thu08/13/20 at 1311, Anesthesia Intra-Op Given 08/13/2020 9:19 AM LEAK HUNTER 5 mLs Given 08/13/2020 9:18 AM LEAK HUNTER 5 mLs Given 08/13/2020 9:17 AM LEAK HUNTER 10 mLs tranexamic acid (CYKLOKAPRON) injection 1,000 mg 1,000 mg, Intravenous, Once, 1 dose, On Thu08/13/20 at 0845, PHARMACIST TO ADJUST dose based on SCr (SCr less than 1.6 = 1,000 mg; SCr 1.6-3.3 = 750 mg; SCr 3.4-6.6 = 500 mg; SCr greater than 6.6 = 250 mg). Administer dose over 15 minutes prior to incision., Pre-Op Given 08/13/2020 10:46 AM LEAK HUNTER 1,000 mg documented in this encounter Care Teams Skid Road Man Relationship Specialty Start Date End Date Sebastien Sequeira MD [address] [place] [address] PCP - General INTERNAL MEDICINE 11/19/20 documented as of this encounter
--- OUTSIDE RECORDS SUMMARY | 2024-09-13 06:35 | XMS_ITS | Encounter Summary ---
Author Organization [facility] Address [address] [place] [address]. [place] [address] [place] [address] Care Team Providers Care Principal Programmer Name Role Phone Sebastien Sequeira MD Primary Care Provider [phone] Encounter Details Date Type Department Care Team (Late st Contact Info) Description 10/23/2020 Orders Only [facility] [address], [place] [id number] Muna Angulo LPN Social History Tobacco Use [...] COVID-19? No / Unsure 09/25/2020 10:50 AM DIRECTOR FOOD AND BEVERAGE documented as of this encounter Plan of [...] Primary documented in this encounter Care Teams Principal Programmer Relationship Specialty Start Date End Date Sebastien Sequeira MD [address] [place] [address] PCP - General INTERNAL MEDICINE 08/02/20 documented as of this encounter
--- OUTSIDE RECORDS SUMMARY | 2024-09-13 06:35 | XMS_ITS | Encounter Summary ---
Author Organization [facility] Address [facility] [place] [address] [place] [address] Care Team Providers Care Tool Sharpener Name Role Phone Sebastien Sequeira MD Primary Care Provider [phone] Encounter Details Date Type Department Care Team (Latest Contact Info) Description 08/03/2020 Travel Social History Tobacco Use Types Packs/Day [...] COVID-19? No / Unsure 08/03/2020 10:45 AM AUTO CLUTCH REBUILDER documented as of this encounter Plan of Treatment Not on file documented as of this encounter Visit Diagnoses Not on filedocumented in this encounter Care Teams Tool Sharpener Relationship Specialty Start Date End Date Sebastien Sequeira MD [address] [place] [id number] PCP - General INTERNAL MEDICINE 08/02/20 documented as of this encounter
--- OUTSIDE RECORDS SUMMARY | 2024-09-13 06:35 | XMS_ITS | Encounter Summary ---
Author Organization [facility] Address [address] [place] [address]. [place] [address] [place] [address] Care Team Providers Care Scanner Operator Name Role Phone Sebastien Sequeira MD Primary Care Provider [phone] Encounter Details Date Type Department Care Team (Latest Contact Info) Description 08/10/2020 8:06 AM MANAGER TRAVEL - 08/10/2020 11:59 PM MANAGER TRAVEL Hospital Encounter [place] [id number] [place] [address] Gustavo So MD [address] [place] [address] Discharge Disposition: Home or Self Care (Routine [...] COVID-19? No / Unsure 08/10/2020 8:06 AM MANAGER TRAVEL documented as of this encounter Medications at [...] Associated Diagnosis Comments CORONAVIRUS (COVID 19) Routine 08/10/2020 8:11 AM MANAGER TRAVEL Pre-operative laboratory examination documented in this encounter Results * CORONAVIRUS (COVID 19) [facility] (08/10/2020 8:11 AM MANAGER TRAVEL) CORONAVIRUS SARS COV 2 PCR (RESP) NOT DETECTED NOT DETECTED 08/11/2020 11:50 AM MANAGER TRAVEL [facility] Comment: A Not Detected (negative) [...] providers and patients using the following websites: https://www.[employer].Portr/home/Covid-19/HCP/NAAT/fact-sheet2 https://www.[employer].com/home/Covid-19/Patients/NAAT/ fact-sheet2 This test has been authorized by the FDA under an Emergency Use Authorization (EUA) for use by authorized laboratories. Due to the current public health emergency, [facility] is receiving a high volume of samples [...] about COVID-19 can be found at the [facility] website: www.[facility]/Covid19. Test performed at [facility] [id number] [place] [address] ??[id number] Director: WALE SALINAS DO,MPH FIRST TEST UNKNOWN 08/10/2020 8:10 AM MANAGER TRAVEL [facility] EMPLOYED IN HEALTHCARE NO 08/10/2020 8:10 AM MANAGER TRAVEL [facility] SYMPTOMATIC DEFINED BY CDC NO 08/10/2020 8:10 AM MANAGER TRAVEL [facility] DATE OF SYMPTOM ONSET UNKNOWN 08/10/2020 8:12 AM MANAGER TRAVEL [facility] HOSPITALIZATION STATUS NO 08/10/2020 8:10 AM MANAGER TRAVEL [facility] PATIENT IN ICU NO 08/10/2020 8:10 AM MANAGER TRAVEL [facility] RESIDENT OF [facility] NO 08/10/2020 8:10 AM MANAGER TRAVEL [facility] NOT 08/10/2020 8:12 AM MANAGER TRAVEL [facility] PATIENT'S RACE WHITE OR 08/10/2020 8:10 AM MANAGER TRAVEL [facility] ETHNICITY NONHISPANIC 08/10/2020 8:10 AM MANAGER TRAVEL [facility] SOURCE (QST) NASOPHARYNGEAL SWAB 08/10/2020 8:10 AM MANAGER TRAVEL [facility] NASOPHARYNGEAL SWAB / Unknown 08/10/2020 8:11 AM MANAGER TRAVEL us Gustavo So MD MICROBIOLOGY - GENERAL ORDERAB LES Final Result Performing Organization Address City/State/[facility] Co de Phone Number [facility] [place] [address], [address] [address] documented in this encounter Visit Diagnoses Diagnosis Pre-operative laboratory examination Pre-procedural laboratory examination documented in this encounter Additional Health Concerns Infection Onset Date Last Indicated Resolved Time COVID-19 Rule Out 08/10/2020 08/10/2020 08/11/2020 11:50 AM MANAGER TRAVEL documented as of this encounter Care Teams Scanner Operator Relationship Specialty Start Date End Date Sebastien Sequeira MD [address] [place] [address] PCP - General INTERNAL MEDICINE 08/02/20 documented as of this encounter
--- OUTSIDE RECORDS SUMMARY | 2024-09-13 06:35 | XMS_ITS | Encounter Summary ---
Author Organization [facility] Address [facility]. [place], [place] [address] [place] [address] Care Team Providers Care Electrical Design Engineer Name Role Phone Unavailable Primary Care Provider Unavailabl e Encounter Details Date Type Department Care Team (Latest Contact Info) Description 10/09/2014 Abstract [facility] Jenna Yusuf MD [address] [facility] [address] [place] [address] Social History Tobacco Use Types [...]
--- OUTSIDE RECORDS SUMMARY | 2024-09-13 06:35 | XMS_ITS | Encounter Summary ---
Author Organization [facility] Address [address] [place] [address]. [place] [address] [place] [address] Care Team Providers Care Textile Designer Name Role Phone Sebastien Sequeira MD Primary Care Provider [phone] Encounter Details Date Type Department Care Team (Late st Contact Info) Description 08/03/2020 Orders Only [facility] [address], [facility] [place] [address] Gustavo So MD [address] [place] [address] Social History Tobacco Use Types Packs/Day Years [...] COVID-19? No / Unsure 08/03/2020 10:45 AM WOOL SAMPLER documented as of this encounter Plan of Treatment Not on file documented as of this encounter Results * CORONAVIRUS (COVID 19) [facility] (08/10/2020 8:11 AM WOOL SAMPLER) CORONAVIRUS SARS COV 2 PCR (RESP) NOT DETECTED NOT DETECTED 08/11/2020 11:50 AM [facility] Comment: A Not Detected (negative) test result [...] providers and patients using the following websites: https://www.[employer]/home/Covid-19/HCP/NAAT/fact-sheet2 https://www.[employer]/home/Covid-19/Patients/NAAT/ fact-sheet2 This test has been authorized by the FDA under an Emergency Use Authorization (EUA) for use by authorized laboratories. Due to the current public health emergency, [facility] is receiving a high volume of samples [...] about COVID-19 can be found at the [facility] website: www.[employer]/Covid19. Test performed at [facility] [place] [id number] [place] [address] ??[phone] Director: WALE SALINAS DO,MPH FIRST TEST UNKNOWN 08/10/2020 8:10 AM [facility] EMPLOYED IN HEALTHCARE NO 08/10/2020 8:10 AM [facility] SYMPTOMATIC DEFINED BY CDC NO 08/10/2020 8:10 AM [facility] DATE OF SYMPTOM ONSET UNKNOWN 08/10/2020 8:12 AM [facility] HOSPITALIZATION STATUS NO 08/10/2020 8:10 AM WOOL SAMPLER [facility] PATIENT IN ICU NO 08/10/2020 8:10 AM [facility] RESIDENT OF [facility] NO 08/10/2020 8:10 AM [facility] NOT 08/10/2020 8:12 AM [facility] PATIENT'S RACE WHITE OR 08/10/2020 8:10 AM [facility] ETHNICITY NONHISPANIC 08/10/2020 8:10 AM [facility] SOURCE (QST) NASOPHARYNGEAL SWAB 08/10/2020 8:10 AM [facility] NASOPHARYNGEAL SWAB / Unknown 08/10/2020 8:11 AM WOOL SAMPLER Gustavo So MD MICROBIOLOGY - GENERAL ORDERAB LES Final Result [facility] [address] [place] [address], [place] [address], * ECG 12 lead (08/07/2020 11:20 AM WOOL SAMPLER) 08/07/2020 11:2 0 AM WOOL SAMPLER Narrative [facility] - 08/08/2020 7:05 AM WOOL SAMPLER ? [facility] ?[address] ??[id number] ? Test Date: ?2020-08-07 Pat Name: ? KEEGAN JOSELYN ? Department: ? Room: ? Gender: ? Female ? County Home Demonstration Agent: ?? : ?1950 ? Requested By: GUSTAVO AEROSPACE PROJECT ENGINEER Order Number: [id number] ? Reading MD: ?? Annamaria Garcia ? Measurements Intervals ?Butler ? Rate: ? 69 ? P: ?55 ID: ? [id number] ?QRS: ?71 QRSD: ? 106 ?T: ?90 QT: ? 390 ? QTc: ?421 ? Interpretive Statements SINUS RHYTHM SAMPLER Procedure Note Annamaria Garcia MD - 08/08/[address] [place] [id number] [facility] [place] [address] Test Date: 2020-08-07 Pat Name: KEEGAN MILLS Department: Room: Gender: Female [place] Home Demonstration Agent: : [id number] Requested By: GUSTAVO SO Order Number: [id number] Reading MD: Annamaria Garcia Measurements Intervals Butler Rate: 69 P: 55 ID: [id number] QRS: 71 QRSD: 106 T: 90 QT: 390 QTc: 421 Interpretive Statements SINUS RHYTHM SAMPLER us Gustavo So MD ECG ORDERABLES Final Result Performing Organization Address City/State/[facility] Co de Phone Number [facility] documented in this encounter Visit Diagnoses Diagnosis Pre-operative laboratory examination- Primary Pre-procedural laboratory examination Chronic hip pain, left Chronic hip pain, left documented in this encounter Care Teams Textile Designer Relationship Specialty Start Date End Date Sebastien Sequeira MD [address] [place] [address] PCP - General INTERNAL MEDICINE 08/02/20 documented as of this encounter
--- OUTSIDE RECORDS SUMMARY | 2024-09-13 06:35 | XMS_ITS | Encounter Summary ---
Author Organization [facility] Address [address] [place] [address]. [place] [address] [place] [address] Care Team Providers Care Pure Culture Operator Name Role Phone Sebastien Sequeira MD Primary Care Provider [phone] Reason for Visit * Reason Onset Date Comments Error 08/01/2020 Encounter Details Date Type Department Care Team (Late st Contact Info) Description 08/03/2020 Orders Only [facility] [address] [place], [place] [id number] Gustavo So MD [address] [place], [place] [id number] Error Social History Tobacco Use Types Packs/Day Years [...] as of this encounter Progress Notes * DELICIA Gresham - 08/01/2020 11:48 AM CST Encounter opened in error. L DOCTOR documented in this encounter Plan of Treatment Not on file documented as of this encounter Visit Diagnoses Diagnosis Chronic left hip pain- Primary Pain in joint, pelvic region and thigh ERRONEOUS ENCOUNTER--DISREGARD documented in this encounter Care Teams Pure Culture Operator Relationship Specialty Start Date End Date Sebastien Sequeira MD [address] [place] [id number] PCP - General INTERNAL MEDICINE 08/02/20 documented as of this encounter
--- OUTSIDE RECORDS SUMMARY | 2024-09-13 06:35 | XMS_ITS | Encounter Summary ---
Author Organization [facility] Address [facility] [place] [address] [place] [address] Care Team Providers Care Transit Mixer Driver Name Role Phone Unavailable Primary Care Provider Unavailabl e Encounter Details Date Type Department Care Team (Latest Contact Info) Description 11/02/2017 Abstract [facility] Jason Eagle MD [address] [place] [id number] Social History Tobacco Use Types Packs/Day Years [...]
--- OUTSIDE RECORDS SUMMARY | 2024-09-13 06:41 | XMS_ITS | Clinical Summary ---
Author Organization [facility] Address [address] [facility] Attn: Epic Prelude ADT JORDAN GUADARRAMA [address] Care Team Providers Care Solar Systems Designer Name Role Phone Unavailable Primary Care Provider Unavailabl e Social History Tobacco Use Types Packs/Day Years Used Date Smoking Tobacco: Never Assessed Sex and Gender Information Value Date Recorded Sex Assigned at Not on file Gender Identity Not on file Sexual Orientation Not on file Plan of Treatment Health Maintenance Due Date Last Done Comments DTAP/TDAP/TD VACCINES (1 - Tdap) 1970 BREAST CANCER SCREENING 1991 COLORECTAL SCREENING 1996 Colorectal Cancer Screening 1996 FIT-DNA Q 3 years 1996 FIT/FOBT Q 1 year 1996 Flex Sig/CT Colonography Q 5 years 1996 ZOSTER VACCINE (1 of 2) 2001 OSTEOPOROSIS SCREENING 2016 PNEUMOCOCCAL VACCINE 65+ YEARS (1 of 1 - PCV) 03/09/20 16 INFLUENZA VACCINE (#1) 2024 RSV VACCINE (60+ or ) (1 - 1-dose 75+ series) 2026
--- OUTSIDE RECORDS SUMMARY | 2024-09-13 06:41 | XMS_ITS | Encounter Summary ---
Author Organization [facility] Address [address] [place] [address] Care Team Providers Care Guide Domestic Tour Name Role Phone Unavailable Primary Care Provider Unavailabl e Encounter Details Date Type Department Care Team (Latest Contact Info) Description 12/17/2000 Outpatient Historical [facility] Ash Severino MD Pain in limb (Primary Dx) Social History Tobacco Use Types Packs/Day Years Used Date Smoking Tobacco: Never Assessed Sex and Gender Information Value Date Recorded Sex Assigned at Not on file Gender Identity Not on file Sexual Orientation Not on file documented as of this encounter Plan of Treatment Not on file documented as of this encounter Visit Diagnoses Diagnosis Pain in limb- Primary documented in this encounter
== END 2024-09-06 08:26 | disposition home or self-care (01) ==
LOC: CHSIMG 08:26
PROVIDERS: PCP Internal Medicine; Visit Provider Internal Medicine
DX: Z12.31 Encounter for screening mammogram for malignant neoplasm of breast (principal)
CPT/HCPCS: 77063; 77067

== ENCOUNTER 2024-10-19 09:12 | Outpatient (RCR) | payer MEDICARE, SELFPAY ==
--- NOTE | 2024-10-19 10:06 | PTOPEVAL1 ---
Assessment and note entered by Héctor Salomon Evaluation Information Assessment Status Evaluation ICD-10 Condition Codes (PT) Pain in low back M54.50,Radiculopathy, lumbar region M54.16,Abnormalities of gait and mobility R26.9,Weakness R53.1 Onset 10/13/24 Subjective Information Pt. reports that she underwent back surgery about 2 years ago. She states that in the recent months she began having increased back and leg pain. She has constant right leg pain from the knee down . She states that she is not active and states that she has been gaining weight. She reports that pain keeps her from doing anything active. If she is using her cane the longest she can stand is about 10-15 minutes. If she has no AD she can only stand for less than 5 minutes. She states that she cannot lay flat due to pain and has to currently sleep in a recliner. She reports that she does fall, with her last fall being about 3 weeks ago. She reports that currently she is taking muscle relaxer and Tylenol for pain. She is taking medication daily. She reports that she cannot carry anything of significant weight. She states that her goal for therapy is to be able to stand longer and be able to lift small objects off the floor to care for her home. Reported Pain Level Pain Score 8: Self Report Assessment PT Clinical Summary Pt. is a 74 year old female who enters the clinic with low back pain and generalized weakness. She presents with impaired balance, functional decline , generalized l.e. weakness, core weakness and poor endurance on this date. Continued skilled PT is indicated in order to improve these areas to allow the pt. to be able to complete all IADL's with improved comfort and efficiency. Plan of Care Interventions Electrical Stimulation,Gait Training,Hot Pack/Cold Pack,Manual Therapy,Neuro Re-education,Patient/ Caregiver Education,Therapeutic Activities, Therapeutic Exercise PT Services Indicated Yes Treatment Frequency and 2x/week x 12 visits Duration These treatments will address the objective and functional deficits as defined above. The patient will be advanced safely and appropriately in order for the patient to progress towards his/her prior level of function. Additional exercises will be introduced and as well as a comprehensive home exercise program upon discharge, if needed, ?to ensure carryover of functional gains achieved in the clinic. This treatment plan has been reviewed and agreement upon by the patient.
--- NOTE | 2024-11-18 10:03 | OPREHPOC ---
Outpatient Therapy Plan of Care This is a Multidisciplinary Plan of Care that may contain components documented by all disciplines (PT, OT, and ST.) PT Problem 1 PT Problem #1 Knowledge Deficit PT Goal 1 Goal / Goal Update Pt. will be independent with a HEP addressing strength and endurance. Target Visit 2 Progress Met PT Problem 2 PT Problem #2 Impaired Gait PT Goal 1 Goal / Goal Update Pt. will be able to complete the 6 minute walk test without rest. met, but with numbness in feet Pt. will be able to walk for duration of 10 minutes in the community without rest. not met Target Visit 12 Progress Partially Met PT Problem 3 PT Problem #3 Impaired Functional Mobility PT Goal 1 Goal / Goal Update Pt. will be able to stand unsupported without AD for duration of 5 minutes. met pt. will be able to lift small object off the ground without assistance. met Target Visit 12 Progress Met
--- NOTE | 2024-11-18 10:03 | PTOPPROG ---
Assessment and note entered by JT File, PT Evaluation Information Assessment Status Progress ICD-10 Condition Codes (PT) Pain in low back M54.50,Radiculopathy, lumbar region M54.16,Abnormalities of gait and mobility R26.9,Weakness R53.1 Onset 10/13/24 Subjective Information patient reports she feels Alright today. she reports she has been sore lately with a little change in the weather. she reports she had an MRI yesterday. she is trying to determine whether or not to get a pain stimulator in the lower back. she reports she still struggles with standing and walking for increased time due to her back and numbness in her feet. Assessment PT Clinical Summary mrs. rueda presents to skilled PT services for her 10th skilled PT visit. despite being fatigued with walking/standing, she has made partial achievement of her goals thus far for skilled PT. she would benefit from continued skilled PT to address her remaining functional endurance and activity goals to improve her quality of life. Plan of Care Interventions Electrical Stimulation,Gait Training,Hot Pack/Cold Pack,Manual Therapy,Neuro Re-education,Patient/ Caregiver Education,Therapeutic Activities, Therapeutic Exercise PT Services Indicated Yes Treatment Frequency and continue per initial POC Duration These treatments will address the objective and functional deficits as defined above. The patient will be advanced safely and appropriately in order for the patient to progress towards his/her prior level of function. Additional exercises will be introduced and as well as a comprehensive home exercise program upon discharge, if needed, ?to ensure carryover of functional gains achieved in the clinic. This treatment plan has been reviewed and agreement upon by the patient.
--- NOTE | 2024-11-25 10:52 | OPREHPOC ---
Outpatient Therapy Plan of Care This is a Multidisciplinary Plan of Care that may contain components documented by all disciplines (PT, OT, and ST.) PT Problem 1 PT Problem #1 Knowledge Deficit PT Goal 1 Goal / Goal Update Pt. will be independent with a HEP addressing strength and endurance. Target Visit 2 Progress Met PT Problem 2 PT Problem #2 Impaired Gait PT Goal 1 Goal / Goal Update Pt. will be able to complete the 6 minute walk test without rest. met, but with numbness in feet Pt. will be able to walk for duration of 10 minutes in the community without rest. met Target Visit 12 Progress Met PT Problem 3 PT Problem #3 Impaired Functional Mobility PT Goal 1 Goal / Goal Update Pt. will be able to stand unsupported without AD for duration of 5 minutes. met pt. will be able to lift small object off the ground without assistance. met Target Visit 12 Progress Met
--- NOTE | 2024-11-25 10:52 | PTOPDC ---
Assessment and note entered by JT File, PT Evaluation Information Assessment Status Discharge ICD-10 Condition Codes (PT) Pain in low back M54.50,Radiculopathy, lumbar region M54.16,Abnormalities of gait and mobility R26.9,Weakness R53.1 Onset 10/13/24 Subjective Information patient reports she feels Better overall, but does have pain in the back and legs still. she reports the toughest thing for her to do is to go from sit to stand, but believes she will always have trouble with this. Reported Pain Level Pain Score 6,6,6: Self Report Assessment PT Clinical Summary mrs. rueda presents to skilled PT for her 12th skilled therapy visit. she has met all goals for skilled PT as of this date. we will DC therapy, and patient will continue to do HEP independent at home. she has an order from pain management from 11/10/24. this will be kept and held until 02/07/25 incase she has a flare up and needs to return to PT. Plan of Care PT Services Indicated Yes
== END 2025-01-17 23:59 | disposition home or self-care (01) ==
LOC: CHSPT 09:12
PROVIDERS: Visit Provider Nurse Practitioner Family
DX: M54.50 Low back pain, unspecified (principal); M54.16 Radiculopathy, lumbar region; R53.1 Weakness
CPT/HCPCS: 97110; 97150; 97162; 97530

== ENCOUNTER 2024-11-17 08:18 | Outpatient (CLI) | payer MEDICARE, SELFPAY ==
--- NOTE | ~2024-11-17 | MR_ITS ---
EXAMINATION: MR lumbar spine wo con DATE: 11/17/2024 08:56 INDICATION: Lumbago. Low back pain radiating down both legs. TECHNIQUE: Magnetic resonance imaging (MRI) of the lumbar spine was performed without intravenous con trast. COMPARISON: Lumbar spine MRI 07/17/2018 FINDINGS: There is 21 degrees dextroscoliosis of thoracolumbar spine. There is a chronic compression fracture of T12 with 3/5 loss of height centrally. There is moderately decreased disc height at T12-L 1 and L1-L2 and severely decreased disc height at L2-L3. There are changes of anterior fusion procedu re at L3-L4, L4-L5, and L5-S1 with interbody devices. There are changes of posterior fusion procedure from L3 to S1 with pedicle screws. The distal spinal cord signal intensity is normal. The conus medu llaris is at L1. The following disc levels are specifically discussed: T12-L1: The disc is bulging. There is mild bilateral facet joint osteoarthritis. There is mild right neural foraminal stenosis. There is mild central canal stenosis. L1-L2: The disc is bulging. There is severe right and mild left facet joint osteoarthritis. There is mild bilateral neural foraminal stenosis. There is mild central canal stenosis. L2-L3: The disc is bulging. There is severe bilateral facet joint osteoarthritis. There is mild bilat eral neural foraminal stenosis. There is mild central canal stenosis. L3-L4: There is mild bilateral facet joint hypertrophy. There is mild left neural foraminal stenosis. There is no central canal stenosis. There is posterior decompression. L4-L5: There is mild bilateral facet joint hypertrophy. There is mild bilateral neural foraminal sten osis. There is no central canal stenosis. There is posterior decompression. L5-S1: There is severe right and moderate left facet joint hypertrophy. There is moderate right and m ild left neural foraminal stenosis. There is mild central canal stenosis. There is posterior decompre ssion. IMPRESSION: 1. Severe lumbar spondylosis. 2. Anterior and posterior fusion procedures from L3 to S1. 3. Thoracolumbar dextroscoliosis. Reviewed, dictated and finalized at location [] F PSYCHOLOGIST
--- OUTSIDE RECORDS SUMMARY | 2024-11-17 08:30 | XMS_ITS | Encounter Summary ---
Author Organization [facility] Address [facility] [place] [address] Care Team Providers Care Contact Center Rep Name Role Phone Sebastien Sequeira MD Primary Care Provider [phone] Encounter Details Date Type Department Care Team (Latest Contact Info) Description 07/20/2018 Abstract [facility] , Zabrina Coffey MD [...] Rule Out 08/10/2020 08/10/2020 08/11/2020 11:50 AM PROPAGATION MANAGER COVID-19 Rule Out 11/16/2020 11/16/2020 11/18/2020 8:06 AM PROPAGATION MANAGER COVID-19 Rule Out 06/21/2021 06/21/2021 06/21/2021 7:19 PM CDT documented as of this encounter Care Teams Contact Center Rep Relationship Specialty Start Date End Date Sebastien Sequeira MD [address] [place] [address] PCP - General INTERNAL MEDICINE 08/02/20 documented as of this encounter
--- OUTSIDE RECORDS SUMMARY | 2024-11-17 08:30 | XMS_ITS | Encounter Summary ---
Author Organization [facility] Address [facility] [place] [address] Care Team Providers Care Elementary Supervisor Name Role Phone Sebastien Sequeira MD Primary Care Provider [phone] Encounter Details Date Type Department Care Team (Late st Contact Info) Description 12/10/2021 [facility] Message Enc [facility] [address], [address] [address] Gustavo So MD [address] [place], [place] [id number] Visit Follow Up Social History Tobacco Use [...] on filedocumented in this encounter Care Teams Elementary Supervisor Relationship Specialty Start Date End Date Sebastien Sequeira MD [address] [place] [address] PCP - General INTERNAL MEDICINE 08/02/20 documented as of this encounter
--- OUTSIDE RECORDS SUMMARY | 2024-11-17 08:30 | XMS_ITS ---
Author Organization [facility] Address [facility] [address] [address] Care Team Providers Care Dobie Man Name Role Phone Fabby LICONA [facility] Primary Care Provider Sade Camacho Unavailable [phone] REASON FOR VISIT New Refill Request Medications Medication SIG (Take, Route, Fr equency, Duration) Notes Start Date End Date Status clonazePAM 1 MG 1 tablet Oral twice a day for 30 days As needed 10/03/2024 Active Social History Sex Assigned At : Social History Observation Description Sex Assigned At Female Encounters Encounter Location Date Provider Diagnosis [facility] [place] [id number] [facility] [address] [address] 10/03/2024 Sade Madera Generalized anxiety disorder F41.1 Assessments Encounter Date Diagnosis (ICD Code) Assessment Notes Treatment Notes Treatment Clinical Notes Section Notes 10/03/2024 Generalized anxiety disorder (ICD-10 - F41.1) Plan Of Treatment Medication Medication Name Sig Start Date Stop Date Notes clonazePAM 1 MG 1 tablet Oral twice a day for 30 days 09/15 Next Appt Details Provider Name:Sade Madera, 11/22/2024 11:30:00 AM, [address] [facility] [address], [facility] [address], [place], [address], Progress Notes * KEEGAN ALVES KDOB:1950 (74 yo F)Acc No.[id number]:10/03/2024 Patient: KEEGAN ALEXANDER :1950 A ge:74 Y S ex:Female Address:[address] [place] [address], [place], [address] * Refills Refill clonazePAM Tablet, 1 MG, Oral, 60 Tablet, 1 tablet, twice a day, 30 days, Refills=0 * true * Date: Generated for Maximus mcdaniel/Ileana/Madelynitting on: 0 11/17/2024 08:30 AM INTERACTIVE DESIGNER
--- OUTSIDE RECORDS SUMMARY | 2024-11-17 08:30 | XMS_ITS | Encounter Summary ---
Author Organization [facility] Address [facility] [place] [address] Care Team Providers Care Lacemaker Name Role Phone Sebastien Sequeira MD Primary Care Provider [phone] Encounter Details Date Type Department Care Team (Late st Contact Info) Description 01/26/2023 [facility] Message Enc [facility] [address], [facility] [address] [place] [id number] Adele Garcia, [facility] [address] [facility] [place] [phone] ??? TEST Social History Tobacco Use Types [...] on filedocumented in this encounter Care Teams Lacemaker Relationship Specialty Start Date End Date Sebastien Sequeira MD [address] [place] [address] PCP - General INTERNAL MEDICINE 08/02/20 documented as of this encounter
--- OUTSIDE RECORDS SUMMARY | 2024-11-17 08:30 | XMS_ITS | Data Portability ---
Author Organization [facility], [address] [facility] ([place]) Address [address] [place] [address] Care Team Providers Care Card Seller Name Role Phone STELLA CARNEY Primary Care Provider [phone] Assessment Encounter Date Assessment Date Assessment LastModified by Organization Details LastModified Time 10/11/2024 10/11/2024 RESULTS/DATA: The Breo is cost prohibitive. The patient is going to find out what an alternative is and let us know. IMPRESSION AND PLAN: Continue albuterol as rescue therapy. She was informed that weight loss would have a beneficial effect on any sleep apnea/breathin g. Do not drive if sleepy. I will see the patient back in 1 year with a simple spirometry. [email or web address] [email or web address] Not available 10/11/2024 12:52:01 Plan of Treatment Reminders Order Date Submit Date Provider Last Modified By Organization Details Last Modified Time Details Appointments Spiromet ry.PRO 2025 11:00A M [facility] Not available Not available Not available Martha hed Patient 15.EST 2025 11:15A M Dr. Jason Eagle Not available Not available Not available Lab None recorded . Referral None recorded . Procedures None recorded . Surgeries None recorded . Imaging None recorded . Medication Orders None recorded . Patient TargetsNo targets recorded. Patient Instructions Encounter Date Encounter Id Patient Instructions Last Modified By Organization Details Last Modified Time 10/11/2024 [id number] I spent time going over the results of the CAT scan with the patient. I should mention the final report was not available until after she left. The right middle lobe nodule is stable. There are no new nodules. One has resolved in the right upper lobe. It was shared with her that the radiologist did not feel future imaging was required at this time given how the findings are behaving in a benign fashion. [email or web address] Not available 10/11/2024 12:52:04 Reason for Referral None Reported. Results Created Date Observation Date Name Description Value Unit Range Abnormal Flag Note LastModifiedBy Organization Detail LastModifiedTime 10/11/19 25 10/11/2024 CT, chest , w/o contr ast [facility] [address] [place] [address] Teleph one Name: Gilma Mills [id number] Exam Date: 2024 Age: 74 Physic bhavna: MD Shagufta, Mal : 1949 Examin ation: CT CHEST WO EXAM: CT CHEST WO HISTOR Y: Pulmon luis e nodule . Follow -up. TECHNI QUE: CT of the chest was perfor med withou t IV contra st admini strati on. Automa jan exposu re contro l was used as a dose optimi zation techni que for the examin ation. COMPAR CALLUM: 2022 FINDIN GS: There is no thorac ic lympha denopa thy. There is mild cardio megaly . There is mild thicke richelle of distal esopha vale which can be seen with GERD. There are baird ry artery calcif icatio ns. There is mild athero sclero sis involv ing the normal calibe r thorac ic aorta. There is no pleura l or perica rdial effusi on. 2 mm nodule in the right upper lobe on series 302 image 4 is stable . Previo usly seen 3 mm nodule in the right upper lobe along the right major fissur e has resolv ed in the interi m. There is a 2 mm nodule in the right middle lobe on series 302 image 115 There is a stable 3 to 4 mm nodule in the left base on image 135. There is no new or enlarg ing pulmon luis e nodule . The centra l airway s are clear. Limite d images throug h the upper abdome n show a right mid renal calcul us measur ing 5 mm on image 259. Bilate ral renal cysts seen. Liver is unrema rkable . Nonenl arged peripo rtal lymph node is seen. There is no aggres sive bony proces s. IMPRES ABRIL: 1. Previo usly noted pulmon luis e nodule in the right upper lobe along the right major fissur e has resolv ed. The previo usly descri bed nodule in the right middle lobe is stable . Additi onal pulmon luis e nodule s are stable . There is no new or enlarg ing pulmon luis e nodule . 2. Mild cardio megaly . Electr onical ly signed in Levine cribe by: OZZIE Vaz MD on:09/15 11:22 AM cc: Page PAGE 1 of [facility] 1 [id number] [facility] [address] [place] [address], [id number], 10/12/2024 14:31:42 Result Notes None recorded. Problems Name Problem SNOMED Code Status Onset Date Resolution Date Notes Provider Name and Address Organization Details Recorded Time Multiple nodules of lung 666562321 Active 2024 Jason Eagle MD [address] [place] [address], [phone], [facility] 5 12:14:40 Asthma 801941035 Active 2024 Jason Eagle MD [address] [place] [address], [phone], [facility] 5 12:14:45 Obstructive sleep apnea syndrome 18612988 Active 2024 Jason Eagle MD [address] [place] [address], [phone], [facility] 5 12:14:52 Problem Notes None recorded. Procedures Surgical History None recorded. Imaging Results Imaging Date Name Status LastModified by Organiz [facility] Details LastModified Time 10/11/2024 CT, chest, w/o contrast completed [id number] [facility] [address] [place], [address], 10/12/2024 14:31:42 Procedure Notes None recorded. Medical Equipment None Reported. Allergies Allergen ID Allergen Name Allergen Category Reaction Reaction Severity Criticality Documentation Date Start Date Code Code System Note Provider Name and Address Organization Details Recorded Time 2855272 topiramat e medicatio n Not available Not available Not available 06/22/20242023 55373 RxNorm Not Available Not Available Not Available 3695706 tizanidin e medicatio n Not available Not available Not available 06/22/20242023 05005 RxNorm Not Available Not Available Not Available 886524 Product containin g 3-hydroxy -3-methyl glutaryl- coenzyme A reductase inhibitor (product) medicatio n Not available Not available Not available 10/12/20232020 89280 009 SNOMED Comme nt: Annot brandykiel s: HANNY GEE (MONICA) , ANGELICA A 2020 8:43A M hives and body aches ; ; Not Available Not Available Not Available Medications Name Sig Start Date Stop Date Status Note LastModified by Organization Details LastModified Time furosemid e 40 mg tablet TAKE 1 TABLET BY MOUTH ONCE DAILY active Not Available Not Available No t Available buspirone 5 mg tablet TAKE 1 TABLET BY MOUTH TWICE DAILY 10/12 completed Not Available Not Available Not Available metoprolo l tartrate 100 mg tablet TAKE 1 TABLET BY MOUTH EVERY 12 HOURS 10/12 completed Not Available Not Available Not Available clonazepa m 1 mg tablet TAKE 1 TABLET BY MOUTH TWICE DAILY NEEDED FOR 30 DAYS active Not Available Not Available No t Available venlafaxi ne ER 150 mg capsule,e xtended release 24 hr TAKE 1 CAPSULE (150 MG) BY MOUTH ONCE DAILY IN THE MORNING FOR A TOTAL OF 187.5 MG active Not Available Not Available No t Available topiramat e 25 mg tablet TAKE 1 TABLET BY MOUTH TWICE DAILY 10/12 completed d/c'd per patient Not Available Not Available Not Available clopidogr el 75 mg tablet Take 1 tablet every day by oral route. active Not Available Not Available No t Available sulfameth oxazole 800 mg-trimet hoprim 160 mg tablet TAKE 1 TABLET BY MOUTH TWICE DAILY 10/12 completed d/c per patient Not Available Not Available Not Available tramadol 50 mg tablet TAKE 1 TABLET BY MOUTH EVERY 8 HOURS NEEDED active Not Available Not Available No t Available spironola ctone 25 mg tablet TAKE 1 TABLET BY MOUTH ONCE DAILY 10/12 completed Not Available Not Available Not Available potassium chloride ER 20 mEq tablet,ex tended release(p art/cryst ) TAKE 2 TABLET BY MOUTH ONCE DAILY 2024 active Not Available Not Available Not Avai lable ropinirol e 2 mg tablet Take 2 tablets every day by oral route at bedtime. active Not Available Not Available No t Available pantopraz ole 40 mg tablet,de layed release Take 1 tablet every day by oral route. active Not Available Not Available No t Available venlafaxi ne 37.5 mg tablet TAKE 1 TABLET (37.5 MG) BY ORAL ROUTE ONCE DAILY FOR A TOTAL OF 187.5 MG active Not Available Not Available No t Available buspirone 30 mg tablet TAKE 1 TABLET BY MOUTH TWICE DAILY active Not Available Not Available No t Available buspirone 10 mg tablet TAKE 1 TABLET BY MOUTH TWICE DAILY 10/12 completed Not Available Not Available Not Available mirtazapi ne 15 mg tablet TAKE 1 TABLET BY MOUTH ONCE DAILY AT BEDTIME. MAY INCREASE TO TWO TABLETS ONCE DAILY AT BEDTIME active Not Available Not Available No t Available propranol ol ER 120 mg capsule,2 4 hr,extend ed release Take 1 capsule every day by oral route at bedtime. active Not Available Not Available No t Available albuterol sulfate HFA 90 mcg/actua tion aerosol inhaler Inhale 2 puffs every 6 hours as needed 2023 active Not Available Not Available Not Avai lable fluticaso ne propionat e 50 mcg/actua tion nasal spray,[employer] pension [place] 2 sprays every day by intranas al route. active Not Available Not Available No t Available buspirone 15 mg tablet TAKE 1 TABLET BY MOUTH TWICE DAILY 10/12 completed Not Available Not Available Not Available oxycodone 5 mg tablet TAKE 1 TABLET BY MOUTH EVERY 4 HOURS NEEDED FOR BREAKTHR OUGH PAIN (FOR USE AFTER SURGERY) . 10/12 completed Not Available Not Available Not Available ezetimibe 10 mg tablet Take 1 tablet every day by oral route at bedtime. active Not Available Not Available No t Available rosuvasta tin 40 mg tablet Take 1 tablet every day by oral route at bedtime. active Not Available Not Available No t Available pregabali n 150 mg capsule TAKE 1 CAPSULE BY MOUTH THREE TIMES DAILY active Not Available Not Available No t Available levothyro xine 112 mcg capsule Take 1 capsule every day by oral route. active Not Available Not Available No t Available Breo Ellipta 200 mcg-25 mcg/dose powder for inhalatio n INHALE 1 PUFF BY MOUTH ONCE DAILY RINSE MOUTH AFTER USE 10/12 completed using Wixela 250/50 1 BID instead Not Available Not Available Not Available Wixela Inhub 250 mcg-50 mcg/dose powder for inhalatio n Inhale 1 puff twice a day by inhalati on route. 2024 active Not Available Not Available Not Avai lable Ozempic 2 mg/dose (8 mg/3 mL) subcutane ous pen injector Inject 2 mg every week by subcutan eous route. active Not Available Not Available No t Available Vitals Date Recorded Body height Body mass index (BMI) Body weight Heart rate Oxygen saturation Oxygen saturation in Arterial blood by Pulse oximetry Systolic blood pressure Diastolic blood pressure Provider Name and Address Organization Details Last Updated DateTime 5 177.8 cm 41.9 kg/m2 073285. 97 g 92 /min 93 % 93 % 108 mm[Hg] 60 mm[Hg] Wendi Gonzalez [facility] 5 11:57:02 Social History None recorded. Functional Status None recorded. Mental Status None recorded. Family History Nothing Reported. Medical History No medical history recorded. Gynecological HistoryNo gynecological history recorded. Obstetrics History GPAL:G 0 P 0 0 0 0 Past Encounters Encounter ID Performer Location Encounter Start Date Encounter Closed Date Diagnosis/Indication Diagnosis SNOMED-CT Code Diagnosis ICD10 Code Diagnosis Note [id number] Jason Eagle MD [facility] ([place]) [address] [place] [address] 10/11/2024 10:57:24 10/11/2024 16:59:43 Multiple nodules of lung 805639646 R91.8 Asthma 810142160 J45.90 9 Obstructiv e sleep apnea syndrome 18263609 G47.33 Untreated. Health Concerns Section Related Observation LastModified by Organization Detai ls LastModified Time None Recorded Concern Status LastModified by Organization Details LastModified Time None Recorded Advance Directives Directive None Recorded Payers Encounter Date Sequence Insurance Name Policy Number Policy Wagoner Covered Member ID Wagoner Member ID Guarantor Name 10/11/2024 1 [employer] (MEDICARE REPLACEMENT HMO) [id number] Gilma Mills [id number] Gilma Mills Notes Date Note Type Note Provider Name and Address Organization Details Recorded Time 10/11/2024 text/html CHIEF COMPLAINT:Pulmonary nodules, asthma and obstructive sleep apnea. HISTORY OF PRESENT ILLNESS:The patient returns today accompanied by her . Since I last saw her, her asthma has been stable. She denied any exacerbations requiring medical attention. She has chronic shortness of breath, worse with exertion, relieved with rest. No cough. No wheezing.She is tolerating the Breo without any side effects, although it is going to be cost prohibitive going forward. She uses her rescue medicine maybe 5 days a week. She sometimes uses it for dyspnea with exertion that is probably not due to asthma. Her sleep apnea remains untreated. Quality of sleep is poor because she has neuropathy and sleeps in a recliner. She does not wake up snorting or gasping for breath at night. She estimates her total sleep time is about 4 hours at night. She does get drowsy during the daytime. She sometimes naps. She has not had any motor vehicle accidents attributed to drowsy driving since I saw her last. Jason Eagle MD [address] , [place], [address], [facility] 10/11/2024 13:07:09 OBGyn Episode No OBEpisode recorded.
--- OUTSIDE RECORDS SUMMARY | 2024-11-17 08:30 | XMS_ITS | Clinical Summary ---
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
--- OUTSIDE RECORDS SUMMARY | 2024-11-17 08:30 | XMS_ITS | Encounter Summary ---
Author Organization [facility] Address [facility] [place] [address] Care Team Providers Care [employer] Board Certified Orthotist Name Role Phone Sebastien Sequeira MD Primary Care Provider [phone] Encounter Details Date Type Department Care Team (Late st Contact Info) Description 12/10/2023 Tradono Message Enc [facility] [address], [place] [id number] Adele Garcia, [facility] [address] [facility] [place] [phone] Visit Follow Up Social History Tobacco Use [...] on filedocumented in this encounter Care Teams [employer] Board Certified Orthotist Relationship Specialty Start Date End Date Sebastien Sequeira MD [address] [place] [address] PCP - General INTERNAL MEDICINE 08/02/20 documented as of this encounter
--- OUTSIDE RECORDS SUMMARY | 2024-11-17 08:30 | XMS_ITS | Clinical Summary ---
Author Organization [facility] Address [address] [place] [address] Care Team Providers Care Mix House Tender Name Role Phone Sebastien Sequeira MD Primary Care Provider [phone] Allergies Active Allergy Reactions Criticality Noted Date [...] Department Care Team Description 09/01/2024 8:30 AM BENCH MOLDER APPRENTICE - 09/01/2024 10:13 AM BENCH MOLDER APPRENTICE Surgery [facility] [address] [place] [address] Cameron Avery MD RELEASE CARPAL TUNNEL 09/01/2024 8:30 AM BENCH MOLDER APPRENTICE Anesthesia Event [facility] [address] [place] [address] Senthil North MD Coonrod, Sheila A, RN 09/01/2024 5:59 AM BENCH MOLDER APPRENTICE - 09/01/2024 11:21 AM BENCH MOLDER APPRENTICE Hospital Encounter [facility] [address] [place] [address] Cameron Avery MD Discharge Disposition: Home or Self Care (Routine Discharge) 09/01/2024 Travel 08/25/2024 Travel from Last 3 Months Family History Medical [...] drink = 0.6 oz pur e alcohol) [facility] Utilities Answer Date Recorded In the past 12 months has e [employer], gas, oil, or water [employer] threatened to shut off services in your [...] any time in the past 12 m [facility], were you homeless or living in a penitentiary (including now)? No 03/31/2024 Comments No Sex and Gender Information Value Date Recorded Sex Assigned at Not on file Legal Sex Female 2:03 AM CDT Gender Identity Not on file Sexual Orientation Not on file Last Filed Vital Signs Vital Sign Reading Time Taken Comments Blood Pressure 129/73 09/01/2024 10:26 AM BENCH MOLDER APPRENTICE Pulse 77 09/01/2024 10:26 AM BENCH MOLDER APPRENTICE Temperature 36 C (96.8 F) 09/01/2024 10:26 AM BENCH MOLDER APPRENTICE Respiratory Rate 18 09/01/2024 10:26 AM BENCH MOLDER APPRENTICE Oxygen Saturation 95% 09/01/2024 10:26 AM BENCH MOLDER APPRENTICE Inhaled Oxygen Concentration - - Weight 131.5 kg (290 lb) 09/01/2024 7:05 AM BENCH MOLDER APPRENTICE Height 172.7 cm (5' 8 ) 09/01/2024 7:05 AM BENCH MOLDER APPRENTICE Body Mass Index 44.09 09/01/2024 7:05 AM BENCH MOLDER APPRENTICE Plan of Treatment Health Maintenance Due Date Last Done Comments Colorectal Cancer Screening Colonoscopy (10 Years) 1950 Depression Screening PHQ-9 1963 Hepatitis C 1969 DTaP, Tdap and Td [...] Influenza Adult (#1) 2024 06/23/2020, 1950 Meningococcal B Vaccine Aged Out No l onger eligible based on patient's age to complete this topic Meningococcal Vaccine Aged Out No rishi craig [...] on safety. Medical Devices Implanted Type Area Freelance Digital Project Manager Device Identifier Shelf Expiration Date Model / Serial / Lot Cement Bone 03/07 Fast Set Depuy - [id number] Implanted:Qty: 1 on 03/31/2024 by Cameron Avery MD at [facility] Cement Implant Left: Shoulder DEPUY 07/14/2025 [id number] / / Cup Hip Acetabular Depuy 52mm - [id number] Implanted:Qty: 1 on 08/13/2020 by Gustavo So MD at [facility] Hip Components Left: Hip DEPUY 11/11/2029 [id number] / / [id number] Stem Hip Depuy Tapered - [id number] Implanted:Qty: 1 on 08/13/2020 by Gustavo So MD at [facility] Hip Components Left: Hip DEPUY 01/11/2030 [id number] / / [id number] Head Depuy Femoral Articuleze 36mm +8.5 - [id number] Implanted:Qty: 1 on 08/13/2020 by Gustavo So MD at [facility] Hip Components Left: Hip DEPUY 07/14/2024 [id number] / / [id number] Liner Depuy Acet Altrx +4 10d 36 X 52 - [id number] Implanted:Qty: 1 on 11/19/2020 by Gustavo So MD at [facility] Hip Components Right: Hip DEPUY [id number] 07/14/2025 [id number] / / [id number] Stem Hip Depuy Tapered - [id number] Implanted:Qty: 1 on 11/19/2020 by Gustavo So MD at [facility] Hip Components Right: Hip DEPUY [id number] 06/13/2030 [id number] / / [id number] Stem Humeral 120mm 12mm Modular Global Unite Porocoat Standard Shoulder Sterile Platform Arthroplasty System - [id number] Implanted:Qty: 1 on 06/24/2021 by Gustavo So MD at [facility] Humeral Right: Shoulder DEPUY [id number] 02/11/2031 [id number] / / [id number] Humeral Standard Delta Xtend Depuy - [id number] Implanted:Qty: 1 on 06/24/2021 by Gustavo So MD at [facility] Humeral Right: Shoulder DEPUY [id number] 03/13/2026 [id number] / / [id number] Spacer Humeral Depuy 9mm - [id number] Implanted:Qty: 1 on 06/24/2021 by Gustavo So MD at [facility] Humeral Right: Shoulder DEPUY [id number] 10/14/2024 [id number] / / [id number] Screw Depuy Cancellous Bone 6.5mm X 30mm - [id number] Implanted:Qty: 1 on 11/19/2020 by Gustavo So MD at [facility] Screw Right: Hip DEPUY [id number] 08/13/2030 [id number] / / [id number] Screw Locking Depuy Delta Xtend Lg 30mm - [id number] Implanted:Qty: 1 on 06/24/2021 by Gustavo So MD at [facility] Screw Right: Shoulder DEPUY [id number] 02/11/2026 [id number] / / [id number] Screw Locking Depuy Delta Xtend Lg 36mm - [id number] Implanted:Qty: 1 on 06/24/2021 by Gustavo So MD at [facility] Screw Right: Shoulder DEPUY [id number] 01/11/2026 [id number] / / [id number] Screw Locking Depuy Delta Xtend Lg 30mm - [id number] Implanted:Qty: 1 on 06/24/2021 by Gustavo So MD at [facility] Screw Right: Shoulder DEPUY [id number] 12/12/2025 [id number] / / [id number] Screw Non Locking Depuy Delta Xtend Lg 18mm - [id number] Implanted:Qty: 1 on 06/24/2021 by Gustavo So MD at [facility] Screw Right: Shoulder DEPUY [id number] 03/13/2026 [id number] / / [id number] Screw Compression /Locking Cap Kit Exactech 4.5 X 38mm - [id number] Implanted:Qty: 1 on 03/31/2024 by Cameron Avery MD at [facility] Screw Left: Shoulder EXACTECH 10/12/2028 320-20-38 / / Screw Reverse Torque Defing Exactech - [id number] Implanted:Qty: 1 on 03/31/2024 by Cameron Avery MD at [facility] Screw Left: Shoulder EXACTECH 01/24/2029 320-20-00 / / Screw Compression /Locking Cap Kit Exactech 4.5 X 22mm - [id number] Implanted:Qty: 1 on 03/31/2024 by Cameron Avery MD at [facility] Screw Left: Shoulder EXACTECH 10/31/2028 320-20-22 / / Screw Compression /Locking Cap Kit Exactech 4.5 X 38mm - [id number] Implanted:Qty: 1 on 03/31/2024 by Cameron Avery MD at [facility] Screw Left: Shoulder EXACTECH 11/01/2028 320-20-38 / / Screw Locking Glenosphere Exactech - [id number] Implanted:Qty: 1 on 03/31/2024 by Cameron Avery MD at [facility] Screw Left: Shoulder EXACTECH 11/24/2028 320-15-05 / / Screw Compression /Locking Cap Kit Exactech 4.5 X 30mm - [id number] Implanted:Qty: 1 on 03/31/2024 by Cameron Avery MD at [facility] Screw Left: Shoulder EXACTECH 10/05/2028 320-20-30 / / Metaglene Depuy Delta Xtend - [id number] Implanted:Qty: 1 on 06/24/2021 by Gustavo So MD at [facility] Shoulder Components Right: Shoulder DEPUY [id number] 03/13/2026 [id number] / / [id number] Epiphysis Delta Xtend Depuy Size 1 Right - [id number] Implanted:Qty: 1 on 06/24/2021 by Gustavo So MD at [facility] Shoulder Components Right: Shoulder DEPUY [id number] 05/14/2025 [id number] / / [id number] Liner Depuy Acet Altrx +4 10d 36 X 52 - [id number] Implanted:Qty: 1 on 08/13/2020 by Gustavo So MD at [facility] Left: Hip DEPUY 02/11/2023 [id number] / / [id number] Hip Acetabular Depuy 52mm - [id number] Implanted:Qty: 1 on 11/19/2020 by Gustavo So MD at [facility] Right: Hip DEPUY [id number] 09/13/2030 [id number] / / [id number] M-Spec Metal Femoral Head Implanted:Qty: 1 on 11/19/2020 by Gustavo So MD at [facility] Right: Hip DEPUY [employer] 09/13/2025 [id number] / / [id number] Delta Xtend Lateralized Glenosphere +2mm 38 Standard Implanted:Qty: 1 on 06/24/2021 by Gustavo So MD at [facility] Right: Shoulder [id number] 04/13/2026 [id number] / / [id number] Glenoid Baseplate Implanted:Qty: 1 on 03/31/2024 by Cameron Avery MD at [facility] Left: Shoulder EXACTECH 06/03/2033 320-35-02 / / Reverse Glenosphere Implanted:Qty: 1 on 03/31/2024 by Cameron Avery MD at [facility] Left: Shoulder EXACTECH 11/19/2033 320-31-40 / / 3.2 Drill Bit Implanted:Qty: 1 on 03/31/2024 by Cameron Avery MD at [facility] Left: Shoulder EXACTECH 02/19/2033 321-52-07 / / Humeral Adapter Tray Implanted:Qty: 1 on 03/31/2024 by Cameron Avery MD at [facility] Left: Shoulder EXACTECH 01/04/2034 322-10-00 / / Humeral Stem Implanted:Qty: 1 on 03/31/2024 by Cameron Avery MD at [facility] Left: Shoulder EXACTECH 12/28/2033 300-01-00 / / 40mm Humeral Liner Implanted:Qty: 1 on 03/31/2024 by Cameron Avery MD at [facility] Left: Shoulder EXACTECH 12/13/2028 322-40-00 / / Explanted Type Area Freelance Digital Project Manager Device Identifier Shelf Expiration Date Model / Serial / Lot Drill Bit Versailles Depuy 40mm - [id number] Explanted:Qty: 1 on 11/19/[address] [facility] Drill Right: Hip DEPUY [id number] / / Drill Bit Depuy 2.5 - [id number] Explanted:Qty: 1 on 06/24/[address] [facility] Drill Right: Shoulder DEPUY [id number] / / Metaglene Guide Pin 2.5 Mm Explanted:Qty: 1 on 06/24/[address] [facility] Right: Shoulder [id number] / / 3.2mm Gps Drill Explanted:Qty: 1 on 03/31/2024 by Cameron Avery MD at [facility] Left: Shoulder EXACTECH 11/17/2032 531-55-88 / / Threaded Pin Kit Explanted:Qty: 1 on 03/31/2024 by Cameron Avery MD at [facility] Left: Shoulder EXACTECH 01/24/2033 531-78-20 / / Gps User Kit Explanted:Qty: 1 on 03/31/2024 by Cameron Avery MD at [facility] Left: Shoulder EXACTECH 02/27/2026 [id number] / / Drill Bit Explanted:Qty: 1 on 03/31/2024 by Cameron Avery MD at [facility] Left: Shoulder EXACTECH 02/19/2033 321-52-07 / / Procedures Procedure Name Priority Date/Time Associated Diagnosis Comments RELEASE ULNAR NERVE 09/01/2024 8 :15 AM BENCH MOLDER APPRENTICE CARPAL AND CUBITAL TUNNEL SYNDROME Case Notes HAND TABLE REVISE MEDIAN N/CARPAL TUNNEL SURG 09/01/2024 8:15 AM BENCH MOLDER APPRENTICE CARPAL AND CUBITAL TUNNEL SYNDROME Case Notes HAND TABLE from Last 3 Months Insurance Advance Directives Documents on File Type Date Recorded Patient Coverage Analyst Expl anation Advance Directives and Living Will 08/14/2020 9:58 AM 08/03/2020 DURABLE POWER OF ACCOUNT SUPERVISOR FOR HEALTH CARE Advance Directives and Living [...] 6:55 PM 08/14/2020 6:46 PM Care Teams Mix House Tender Relationship Specialty Start Date End Date Sebastien Sequeira MD [address] [place] [address] PCP - General INTERNAL MEDICINE 08/02/20
--- OUTSIDE RECORDS SUMMARY | 2024-11-17 08:30 | XMS_ITS | Encounter Summary ---
Author Organization [facility] Address [facility] [place] [address] Care Team Providers Care Missile Inspector Name Role Phone Sebastien Sequeira MD Primary Care Provider [phone] Encounter Details Date Type Department Care Team (Late st Contact Info) Description 08/18/2023 Android App Review Source Message Enc [facility] [address] [address] Gustavo So MD [address] [place], [place] [id number] Visit Follow Up Social History Tobacco Use [...] on filedocumented in this encounter Care Teams Missile Inspector Relationship Specialty Start Date End Date Sebastien Sequeira MD [address] [place] [address] PCP - General INTERNAL MEDICINE 08/02/20 documented as of this encounter
--- OUTSIDE RECORDS SUMMARY | 2024-11-17 08:30 | XMS_ITS | Encounter Summary ---
[facility] Address [address] [place] [address] Care Team Providers Care Highway Design Engineer Name Role Phone Unavailable Primary [...] on file Legal Sex Female 4:24 AM WILD OYSTER HARVESTER Gender Identity Not on file Sexual Orientation Not on file documented as of this encounter Plan of Treatment Not on file documented as of this encounter Visit Diagnoses Diagnosis Pain in limb- Primary documented in this encounter
--- OUTSIDE RECORDS SUMMARY | 2024-11-17 08:31 | XMS_ITS | Patient Health Record ---
Author Organization [facility] Address [address] [place] [address] Care Team Providers Care Learning Support Resource Room Teacher Name Role Phone Fabby LICONA, [facility] Primary Care Provider Unavaila Sade Duarte Unavailable [phone] Migration, Provider Unavailable Unavailable Allergies Allergen (clinical drug ingredient) Drug/Non Drug Allergy documented on EMR Reaction Allergy Type Onset Date Status alendronate Alendronate Sodium Unknown Drug Allergy 2023 Active cefdinir Cefdinir Unknown Drug Allergy 12/22/2023 Active topiramate Topiramate Unknown Drug Allergy 12/22/2023 Acti ve Adhesive Unknown Allergy 12/22/2023 Active atorvastatin Atorvastatin Unknown Drug Allergy 12/22/2023 Active tizanidine Tizanidine Unknown Drug Allergy 12/22/2023 Acti ve Results Component Value Reference Range Notes DRUG SCREEN, 14 DRUGS (DETEC TIMED), URINE Reviewed date:12/22/2023 12:00:00 AM Interpretation: Performing Lab: Notes/Report: Amphetamine negative Barbiturates negative Benzodiazipine negative Buprenorphine negative Cocaine negative MDMA/Ectasy negative Methadone negative Methamphetamine negative Morphine negative note 90, neg Oxycodone negative Phenocyclidine negative THC negative Reason For Referral No Information Medications Medication SIG (Take, Route, Frequency, Duration) Notes Start Date End Date Status Spironolactone 25 MG Oral 12/22/2023 Unknown Rosuvastatin Calcium 20 MG Oral 12/22/2023 Unknown Venlafaxine HCl ER 37.5 MG 1 capsule wit h food Orally Once a day for 90 days 10/10/2024 Active Potassium Chloride [place] ER 20 MEQ Oral 12/22/2023 Unknown Clopidogrel Bisulfate 75 MG Oral 12/22/2023 Unknown Venlafaxine HCl ER 150 MG 1 capsule ever y motning Oral Once a day for 90 days Active ProAir HFA 108 (90 Base) MCG/ACT Inhalation 12/22/2023 Unknown Levothyroxine Sodium 112 MCG Oral 12/22/2023 Unknown Ezetimibe 10 MG Oral 12/22/2023 Unk nown rOPINIRole HCl 2 MG Oral 12/22/2023 Unknown Pantoprazole Sodium 40 MG Oral 12/22/2023 Unknown clonazePAM 1 MG 1 tablet Oral twice a day for 30 days As needed 10/10/2024 Active busPIRone HCl 30 MG 1 tablet Oral Twice a day for 90 days Active Furosemide 40 MG Oral 12/22/2023 Un known busPIRone HCl 30 MG 1 tablet Oral Twice a day for 90 days Active Pregabalin 150 MG Oral 12/22/2023 U nknown Breo Ellipta 200-25 MCG/INH Inhalation 12/22/2023 Unknown Social History Tobacco Use: Social History Observation Description Date Details (start date - stop date) Never Smoker NA - NA Sex Assigned At : Social History Observation Description Sex Assigned At Female Tobacco Control (Standard) Question Answer Notes Tobacco use: Nonsmoker Problems Problem Type SNOMED Code ICD Code Onset Dates Problem Status W/U Status Risk Notes Problem Moderate recurrent major depression (48690616) Major depressive disorder, recurrent, moderate (F33.1) Active confirmed Problem Generalized anxiety disorder (80808618) Generalized anxiety disorder (F41.1) Active confirmed Vital Signs Heart Rate 85 /min 12/22/2023 Height-cm 177.80 cm 12/22/2023 Blood pressure diastolic 79 mm Hg 12/22/2023 Weight-kg 138.35 kg 12/22/2023 Height 70.00 in 12/22/2023 Blood pressure systolic 137 mm Hg 12/22/2023 Weight 305.00 lbs 12/22/2023 BMI 43.8 kg/m2 12/22/2023 Encounters Encounter Location Date Provider Diagnosis [employer] [address] [employer] [facility] [address] [facility] [address] [place] [address] 12/22/2023 Sade Madera Major depressive disorder, recurrent, moderate F33.1 ; Generalized anxiety disorder F41.1 and Tremor, unspecified R25.1 [place] [address] [place] [address] 02/22/2024 Sade Santy Major depressive disorder, recurrent, moderate F33.1 ; Generalized anxiety disorder F41.1 and Tremor, unspecified R25.1 [place] [address] [place] [address] 03/28/2024 Sade Santy Major depressive disorder, recurrent, moderate F33.1 ; Generalized anxiety disorder F41.1 and Tremor, unspecified R25.[address] [facility] [address] [place] [address] 06/01/2024 Sade Santy Major depressive disorder, recurrent, moderate F33.1 ; Generalized anxiety disorder F41.1 and Tremor, unspecified R25.[address] [facility] [address] [place] [address] 07/11/2024 Sade Santy Major depressive disorder, recurrent, moderate F33.1 ; Generalized anxiety disorder F41.1 and Tremor, unspecified R25.[address] [facility] [address] [place] [address] 08/29/2024 Sade Santy Major depressive disorder, recurrent, moderate F33.1 ; Generalized anxiety disorder F41.1 and Tremor, unspecified R25.[address] [address] 10/10/2024 Sade Snaty Major depressive disorder, recurrent, moderate F33.1 ; Generalized anxiety disorder F41.1 and Tremor, unspecified R25.[address] [address] 12/21/2023 Provider Migration [place] [address] [facility] [address] [place] [address] 12/29/2023 Provider Migration [facility], [place] [address] [address] 01/30/2024 Provider Migration [place] [address] [facility] [address] [place] [address] 01/31/2024 Provider Migration [facility], [place] [address] [facility] [address] [place] [address] 08/01/2024 Sade Santy Generalized anxiety disorder F41.1 and Major depressive disorder, recurrent, moderate F33.1 [facility] [address] [facility] [address] [place] [address] 10/03/2024 Sade Madera Generalized anxiety disorder F41.1 Assessments Encounter Date Diagnosis (ICD Code) Assessment Notes Treatment Notes Treatment Clinical Notes Section Notes 02/22/2024 Major depressive disorder, recurrent, moderate (ICD-10 - F33.1) 02/22/2024 Generalized anxiety disorder (ICD-10 - F41.1) Increase Buspar to 10mg BID for anxiety. Continue clonazepam 1mg BID. [place] PDMP report checked and consistent with [...] alcohol, as this combination can be lethal. 12/22/2023 Major depressive disorder, recurrent, moderate (ICD-10 - F33.1) 12/22/2023 Generalized anxiety disorder (ICD-10 - F41.1) 12/22/2023 Tremor, unspecified (ICD-10 - R25.1) 03/28/2024 Major depressive disorder, recurrent, moderate (ICD-10 - F33.1) 06/01/2024 Major depressive disorder, recurrent, moderate (ICD-10 - F33.1) 08/01/2024 Generalized anxiety disorder (ICD-10 - F41.1) 08/29/2024 Major depressive disorder, recurrent, moderate (ICD-10 - F33.1) 10/03/2024 Generalized anxiety disorder (ICD-10 - F41.1) 10/10/2024 Major depressive disorder, recurrent, moderate (ICD-10 - F33.1) 07/11/2024 Major depressive disorder, recurrent, moderate (ICD-10 [...] alcohol, as this combination can be lethal. 08/01/2024 Major depressive disorder, recurrent, moderate (ICD-10 - F33.1) 10/10/2024 Generalized anxiety disorder (ICD-10 - F41.1) 08/29/2024 Generalized anxiety disorder (ICD-10 - F41.1) [...] alcohol, as this combination can be lethal. 06/01/2024 Generalized anxiety disorder (ICD-10 - F41.1) Overall stable, continue current medications. Refills sent in today. Patient educated on all medications including potential [...] alcohol, as this combination can be lethal. 03/28/2024 Generalized anxiety disorder (ICD-10 - F41.1) Increase Buspar to 15mg BID for anxiety. Patient educated on all medications including potential [...] alcohol, as this combination can be lethal. 02/22/2024 Tremor, unspecified (ICD-10 - R25.1) Stable 03/28/2024 Tremor, unspecified (ICD-10 - R25.1) Stable 06/01/2024 Tremor, unspecified (ICD-10 - R25.1) Stable 08/29/2024 Tremor, unspecified (ICD-10 - R25.1) Stable 10/10/2024 Tremor, unspecified (ICD-10 - R25.1) Stable 07/11/2024 Tremor, unspecified (ICD-10 - R25.1) Stable 08/29/2024 [...] of psychotropic medications. -Crisis prevention hotline 988. 10/10/2024 Other Increase venlafaxine to 187.5mg for mood. Patient educated on all medications including potential [...] alcohol, as this combination can be lethal. referral to the local chapter or national office of the Alzheimer's Association ( ; http://www.alz.org ), the Alzheimer's Disease Education and Referral Center (ADEAR) ( ; http://www.janine.nih .gov/Alzheimers/), -Assessment and treatment plan reviewed with patient. -Compliance with treatment plan importance discussed. -Discussed the risks/benefits of this medication -Discussed medication side effects. -Contact office if symptoms worsen. -Discussed that it can take up to 6-8 weeks to see full therapeutic effects of psychotropic medications. -Crisis prevention hotline 438. Plan Of Treatment Next Appt Details Provider Name:Sade Madera, 11/22/2024 11:30:00 AM, [address] [facility] [address] [facility] [address], [place], [address], Insurance Providers Payer Name Payer Address Payer Phone Subscriber Number Group Number Insured Name Patient Relationship to Insured Coverage Start Date Coverage End Date [employer] Medicare Supplement [address] [place] [address] [id number] KEEGAN ALVES Self - patient is the insured Medical (General) History Surgical History Surgery Date(Month/Year) Hysterectomy 96 Right Rotato r Cuff Repair 2000 Bilateral knee replacement 11/2007 Right foot /ankle rebuilt 03/2009 Right Hip Replacement 220 Left Hip Replacement 11/2020 Right Shoulder Replacement 2020 L4 -S1 Spinal Fusion 11/2021 Right Hamstring release 2021 Left Shoulder Replacement 2023 Right Carpul tunnel/ Ulnar nerve surgery 07/28/2024
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
== END 2024-11-17 08:19 | disposition home or self-care (01) ==
LOC: CHSIMG 08:19
PROVIDERS: PCP Internal Medicine; Visit Provider Nurse Practitioner Family
DX: M54.50 Low back pain, unspecified (principal); M43.06 Spondylolysis, lumbar region; Z98.1 Arthrodesis status; M41.85 Other forms of scoliosis, thoracolumbar region
CPT/HCPCS: 72148

== ENCOUNTER 2025-03-21 10:34 | Outpatient (CLI) | payer MEDICARE, SELFPAY ==
--- OUTSIDE RECORDS SUMMARY | 2025-03-21 10:42 | XMS_ITS | Encounter Summary ---
Author Organization [facility] Address [facility] [place] [address] Care Team Providers Care Credit Historian Name Role Phone Sebastien Sequeira MD Primary Care Provider [phone] Encounter Details Date Type Department Care Team (Late st Contact Info) Description 01/26/2023 [employer] Message Enc [facility] [address], [facility] [address] [place] [phone] Adele Garcia, [facility] [address] [facility] [place] [phone] ??? TEST Social History Tobacco Use Types [...] on filedocumented in this encounter Care Teams Credit Historian Relationship Specialty Start Date End Date Sebastien Sequeira MD [address] [place] [address] PCP - General INTERNAL MEDICINE 08/02/20 documented as of this encounter
--- OUTSIDE RECORDS SUMMARY | 2025-03-21 10:42 | XMS_ITS | Encounter Summary ---
Author Organization [facility] Address [facility] [place] [address] Care Team Providers Care Rail Express Clerk Name Role Phone Sebastien Sequeira MD Primary Care Provider Encounter Details Date Type Department Care Team (Late st Contact Info) Description 12/10/2023 Coull Message Enc [facility] [address], [place] [phone] Adele Garcia, [facility] [address] [facility] [place] [phone] Visit Follow Up Social History Tobacco Use [...] on filedocumented in this encounter Care Teams Rail Express Clerk Relationship Specialty Start Date End Date Sebastien Sequeira MD [address] [place] [address] PCP - General INTERNAL MEDICINE 08/02/20 documented as of this encounter
--- OUTSIDE RECORDS SUMMARY | 2025-03-21 10:42 | XMS_ITS | Encounter Summary ---
Author Organization [facility] Address 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
--- OUTSIDE RECORDS SUMMARY | 2025-03-21 10:42 | XMS_ITS | Encounter Summary ---
Author Organization [facility] Address [facility] [place] [address] Care Team Providers Care Workers Compensation Analyst Name Role Phone Sebastien Sequeira MD Primary Care Provider [phone] Encounter Details Date Type Department Care Team (Late st Contact Info) Description 08/18/2023 [employer] Message Enc [facility] [address], [address] [address] Gustavo So MD [address] [place], [place] [phone] Visit Follow Up Social History Tobacco Use [...] on filedocumented in this encounter Care Teams Workers Compensation Analyst Relationship Specialty Start Date End Date Sebastien Sequeira MD [address] [place] [address] PCP - General INTERNAL MEDICINE 08/02/20 documented as of this encounter
--- OUTSIDE RECORDS SUMMARY | 2025-03-21 10:42 | XMS_ITS | Clinical Summary ---
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
--- OUTSIDE RECORDS SUMMARY | 2025-03-21 10:42 | XMS_ITS | Encounter Summary ---
Author Organization [facility] Address [facility] [place] [address] Care Team Providers Care Manager Rail Name Role Phone Sebastien Sequeira MD Primary Care Provider [phone] Encounter Details Date Type Department Care Team (Late st Contact Info) Description 12/10/2021 [employer] Message Enc [facility] [address], [address] [address] Gustavo So MD [address] [place], [place] [phone] Visit Follow Up Social History Tobacco Use [...] filedocumented in this encounter Care Teams Manager Rail Relationship Specialty Start Date End Date Sebastien Sequeira MD [address] [place] [address] PCP - General INTERNAL MEDICINE 08/02/20 documented as of this encounter
--- OUTSIDE RECORDS SUMMARY | 2025-03-21 10:43 | XMS_ITS | Patient Health Record ---
Author Organization [facility] [employer] Address [address] [place] [address] Care Team Providers Care Surgical Dressing Maker Name Role Phone Fabby LICONA, [facility] Primary Care Provider Sade Hernandez Unavailable [phone] Allergies Allergen (clinical drug ingredient) Drug/Non Drug Allergy documented on EMR Reaction Allergy Type Onset Date Status alendronate Alendronate Sodium Unknown Drug Allergy 2023 Active cefdinir Cefdinir Unknown Drug Allergy 12/22/2023 Active topiramate Topiramate Unknown Drug Allergy 12/22/2023 Acti ve Adhesive Unknown Allergy 12/22/2023 Active atorvastatin Atorvastatin Unknown Drug Allergy 12/22/2023 Active tizanidine Tizanidine Unknown Drug Allergy 12/22/2023 Acti ve Reason For Referral No Information Medications Medication SIG (Take, Route, Frequency, Duration) Notes Start Date End Date Status Furosemide 40 MG Oral 12/22/2023 Un known Pregabalin 150 MG Oral 12/22/2023 U nknown busPIRone HCl 30 MG 1 tablet Oral Twice a day; Duration: 90 days Active Levothyroxine Sodium 112 MCG Oral 12/22/2023 Unknown Ezetimibe 10 MG Oral 12/22/2023 Unk nown Potassium Chloride [place] ER 20 MEQ Oral 12/22/2023 Unknown Clopidogrel Bisulfate 75 MG Oral 12/22/2023 Unknown ProAir HFA 108 (90 Base) MCG/ACT Inhalation 12/22/2023 Unknown Venlafaxine HCl ER 37.5 MG TAKE 1 CAPSUL E BY MOUTH ONCE DAILY WITH FOOD FOR 90 DAYS; Duration: 90 Active Pantoprazole Sodium 40 MG Oral 12/22/2023 Unknown Venlafaxine HCl ER 75 MG 1 capsule with food Orally Once a day; Duration: 90 days Active clonazePAM 1 MG Take 1 tablet by julius twice daily as needed; Duration: 30 01/02/2025 Active Breo Ellipta 200-25 MCG/INH Inhalation 12/22/2023 Unknown Venlafaxine HCl ER 150 MG 1 capsule ever y motning Oral Once a day; Duration: 90 days Active Spironolactone 25 MG Oral 12/22/2023 Unknown clonazePAM 1 MG 1 tablet Oral twice a day; Duration: 30 days As needed 03/02/2025 Active Rosuvastatin Calcium 20 MG Oral 12/22/2023 Unknown rOPINIRole HCl 2 MG Oral 12/22/2023 Unknown Social History Tobacco Use: Social History Observation Description Date Details (start date - stop date) Never Smoker NA - NA Sex Assigned At : Social History Observation Description Sex Assigned At Female Tobacco Control (Standard) Question Answer Notes Tobacco use: Nonsmoker Problems Problem Type SNOMED Code ICD Code Onset Dates Problem Status W/U Status Risk Notes Problem Moderate recurrent major depression (43298507) Major depressive disorder, recurrent, moderate (F33.1) Active confirmed Problem Generalized anxiety disorder (75680817) Generalized anxiety disorder (F41.1) Active confirmed Problem Tremor (39839612) Tremor, unspecified (R25.1) Active confirmed Vital Signs Heart Rate 86 /min 03/02/2025 Height-cm 177.80 cm 03/02/2025 Blood pressure diastolic 72 mm Hg 03/02/2025 Weight-kg 132.54 kg 03/02/2025 Height 70.00 in 03/02/2025 Blood pressure systolic 107 mm Hg 03/02/2025 Weight 292.2 lbs 03/02/2025 BMI 41.92 kg/m2 03/02/2025 Encounters Encounter Location Date Provider Diagnosis [facility] [address] [place] [address] 03/28/2024 Sade Bliss Major depressive disorder, recurrent, moderate F33.1 ; Generalized anxiety disorder F41.1 and Tremor, unspecified R25.1 [facility] [address] [place] [address] 06/01/2024 Sade Kurilla Major depressive disorder, recurrent, moderate F33.1 ; Generalized anxiety disorder F41.1 and Tremor, unspecified R25.[address] [facility] [address] [place] [address] 07/11/2024 Sade Kurcameron Major depressive disorder, recurrent, moderate F33.1 ; Generalized anxiety disorder F41.1 and Tremor, unspecified R25.[address] [facility] [address] [place] [address] 08/29/2024 Sade Kurcameron Major depressive disorder, recurrent, moderate F33.1 ; Generalized anxiety disorder F41.1 and Tremor, unspecified R25.[address] [facility] [address] [place] [address] 10/10/2024 Sadeangel Bliss Major depressive disorder, recurrent, moderate F33.1 ; Generalized anxiety disorder F41.1 and Tremor, unspecified R25.[address] [address] 11/22/2024 Sade Kurcameron Generalized anxiety disorder F41.1 ; Tremor, unspecified R25.1 ; Encounter for screening for cardiovascular disorders Z13.6 ; Major depressive disorder, recurrent, moderate F33.1 ; Dietary counseling and surveillance Z71.3 and Encounter for screening for depression Z13.[address] [address] 01/16/2025 Sade Kurcameron Generalized anxiety disorder F41.1 ; Major depressive disorder, recurrent, moderate F33.1 ; Tremor, unspecified R25.1 ; Dietary counseling and surveillance Z71.3 ; Encounter for screening for depression Z13.31 and Encounter for screening for cardiovascular disorders Z13.[address] [facility] [address] [place] [address] 03/02/2025 Sade Kurcameron Generalized anxiety disorder F41.1 ; Major depressive disorder, recurrent, moderate F33.1 ; Tremor, unspecified R25.1 ; Dietary counseling and surveillance Z71.3 ; Encounter for screening for cardiovascular disorders Z13.6 and Encounter for screening for depression Z13.[address] [facility] [address] [place] [address] 08/01/2024 Sade Bliss Generalized anxiety disorder F41.1 and Major depressive disorder, recurrent, moderate F33.1 [facility] [address] [place] [address] 12/16/2024 Sade Bliss [facility] [address] [place] [address] 12/16/2024 Sade Bliss [facility] [address] [place] [address] 12/20/2024 Sade Bliss [facility] [address] [place] [address] 10/03/2024 Sade Bliss Generalized anxiety disorder F41.1 Assessments Encounter Date Diagnosis (ICD Code) Assessment Notes Treatment Notes Treatment Clinical Notes Section Notes 03/28/2024 Major depressive disorder, recurrent, moderate (ICD-10 - F33.1) 06/01/2024 Major depressive disorder, recurrent, moderate (ICD-10 - F33.1) 08/01/2024 Generalized anxiety disorder (ICD-10 - F41.1) 08/29/2024 Major depressive disorder, recurrent, moderate (ICD-10 - F33.1) 10/03/2024 Generalized anxiety disorder (ICD-10 - F41.1) 10/10/2024 Major depressive disorder, recurrent, moderate (ICD-10 - F33.1) 11/22/2024 Generalized anxiety disorder (ICD-10 - F41.1) most recent clonazepam fill 10/31/2024 01/16/2025 Major depressive disorder, recurrent, moderate (ICD-10 - F33.1) 01/16/2025 Generalized anxiety disorder (ICD-10 - F41.1) 07/11/2024 Major depressive disorder, recurrent, moderate (ICD-10 - F33.1) 03/02/2025 Major depressive disorder, recurrent, moderate (ICD-10 - F33.1) SSRI/SNRI side effects discussed including but not limited to, gastric upset, nausea, vomiting, diarrhea and/or constipation, weight changes, sexual side effects including loss of libido, increased suicidal thoughts/behaviors in children and young adults, and serotonin syndrome. 03/02/2025 Generalized anxiety disorder (ICD-10 - F41.1) LAST CLONAZEPAM FILL 02/07/2025 03/02/2025 Tremor, unspecified (ICD-10 - R25.1) Stable 07/11/2024 Generalized anxiety disorder (ICD-10 - F41.1) [...] alcohol, as this combination can be lethal. 01/16/2025 Tremor, unspecified (ICD-10 - R25.1) Stable 11/22/2024 Tremor, unspecified (ICD-10 - R25.1) Stable 10/10/2024 Generalized anxiety disorder (ICD-10 - F41.1) [...] depressive disorder, recurrent, moderate (ICD-10 - F33.1) 03/02/2025 Dietary counseling and surveillance (ICD-10 - Z71.3) 03/28/2024 Tremor, unspecified (ICD-10 - R25.1) Stable 06/01/2024 Tremor, unspecified (ICD-10 - R25.1) Stable 08/29/2024 Tremor, unspecified (ICD-10 - R25.1) Stable 10/10/2024 Tremor, unspecified (ICD-10 - R25.1) Stable 11/22/2024 Major depressive disorder, recurrent, moderate (ICD-10 - F33.1) 11/22/2024 Encounter for screening for cardiovascular disorders (ICD-10 - Z13.6) 07/11/2024 Tremor, unspecified (ICD-10 - R25.1) Stable 01/16/2025 Dietary counseling and surveillance (ICD-10 - Z71.3) 01/16/2025 Encounter for screening for depression (ICD-10 - Z13.31) 03/02/2025 Encounter for screening for cardiovascular disorders (ICD-10 - Z13.6) 11/22/2024 Dietary counseling and surveillance (ICD-10 - Z71.3) 11/22/2024 Encounter for screening for depression (ICD-10 - Z13.31) 01/16/2025 Encounter for screening for cardiovascular disorders (ICD-10 - Z13.6) 03/02/2025 Encounter for screening for depression (ICD-10 - Z13.31) 08/29/2024 Other Increase Buspar to 30mg BID [...] of psychotropic medications. -Crisis prevention hotline 988. 11/22/2024 Other Stable, cont current medications. Patient educated on all medications including potential benefits, side effects, risks. Educated on proper dosing schedule and importance of compliance. [place] report checked and consistent with prescription history, no controlled substance prescriptions from other providers. -Assessment and treatment plan reviewed with patient. -Compliance with treatment plan importance discussed. -Discussed the risks/benefits of this medication -Discussed medication side effects. -Contact office if symptoms worsen. -Discussed that it can take up to 6-8 weeks to see full therapeutic effects of psychotropic medications. -Crisis prevention [facility] 988. 01/16/2025 Other Increase venlafaxine to 225mg daily for mood, anxiety Patient educated on all medications including potential benefits, side effects, risks. Educated on proper dosing schedule and importance of compliance. [place] report checked and consistent with prescription history, no controlled substance prescriptions from other providers. -Assessment and treatment plan reviewed with patient. -Compliance with treatment plan importance discussed. -Discussed the risks/benefits of this medication -Discussed medication side effects. -Contact office if symptoms worsen. -Discussed that it can take up to 6-8 weeks to see full therapeutic effects of psychotropic medications. -Crisis prevention [facility] 988. 03/02/2025 Other Stable on current medication regimen, continue at current doses. -Refills sent in today -No concerns today Patient educated on all medications including potential benefits, side effects, risks. Educated on proper dosing schedule and importance of compliance. [place] report checked and consistent with prescription history, no controlled substance prescriptions from other providers. -Assessment and treatment plan reviewed with patient. -Compliance with treatment plan importance discussed. -Discussed the risks/benefits of this medication -Discussed medication side effects. -Contact office if symptoms worsen. -Discussed that it can take up to 6-8 weeks to see full therapeutic effects of psychotropic medications. -[facility]. Plan Of Treatment Next Appt Details Provider Name:Sade mitchell, 05/04/2025 10:15:00 AM, [address], [facility] [address], [place], [address], Insurance Providers Payer Name Payer Address Payer Phone Subscriber Number Group Number Insured Name Patient Relationship to Insured Coverage Start Date Coverage End Date [employer] Medicare Supplement [address] [place] [phone] [id number] KEEGAN ALVES Self - patient is the insured Medical (General) History Medical History History ICD Code Problems: Chronic tremor Generalized anxiety disorder Moderate recurrent major depression , Surgical History Surgery Date(Month/Year) Hysterectomy 96 Right Rotato r Cuff Repair 2000 Bilateral knee replacement 11/2007 Right foot /ankle rebuilt 03/2009 Right Hip Replacement 220 Left Hip Replacement 11/2020 Right Shoulder Replacement 2020 L4 -S1 Spinal Fusion 11/2021 Right Hamstring release 2021 Left Shoulder Replacement 2023 Right Carpul tunnel/ Ulnar nerve surgery 07/28/2024
--- OUTSIDE RECORDS SUMMARY | 2025-03-21 10:43 | XMS_ITS | Data Portability ---
Author Organization [facility], [address] [place] [address] [place] ([place]) Address [address] [place] [address] Care Team Providers Care Insulating Machine Operator Name Role Phone STELLA CARNEY Primary Care Provider [phone] Assessment Encounter Date Assessment Date Assessment LastModified [...] 1 year with a simple spirometry. [email or web address] [email or web address] Not available 10/11/2024 12:52:01 Plan of Treatment [...] By Organization Details Last Modified Time 10/11/2024 [id number] I spent time going over the results [...] findings are behaving in a benign fashion. [email or web address] Not available 10/11/2024 12:52:04 Reason for Referral None Reported. Results Created Date Observation Date Name Description Value Unit Range Abnormal Flag Note LastModifiedBy Organization Detail LastModifiedTime 10/11/19 25 10/11/2024 CT, chest , w/o contr ast [facility] [address] [place] [address] Teleph one Name: Gilma Mills [id number] Exam Date: 2024 Age: 74 Physic bhavna: [...] 11:22 AM cc: Page PAGE 1 of [facility] 1 Co Only - Co Radiology [address] [place] [address], [address], 10/12/2024 14:31:42 01/09/20 25 02/25/2021 imagi ng/di agnos tic resul t No observ ation record ed. [email or web address] Not Available 16:06:05 01/09/20 25 06/11/2021 imagi ng/di agnos tic resul t No observ ation record ed. [email or web address] Not Available 16:06:15 Result Notes Documentation Provider Name and Address Organization Details Recorded Time Ct, Chest, W/o Contrast : [facility] [address] [place] [id number] Name: Gilma Mills Exam Date: 10/11/2024 Age: 74 Physician: MD Shagufta, Jason : 1950 Examination: CT CHEST WO EXAM: CT CHEST WO HISTORY: Pulmonary nodule. Follow-up. TECHNIQUE: CT of the chest was performed without IV contrast administration. Automated exposure control was used as a dose optimization technique for the examination. COMPARISON: 08/28/2023 FINDINGS: There is no thoracic lymphadenopathy. There is mild cardiomegaly. There is mild thickening of distal esophagus which can be seen with GERD. There are coronary artery calcifications. There is mild atherosclerosis involving the normal caliber thoracic aorta. There is no pleural or pericardial effusion. 2 mm nodule in the right upper lobe on series 302 image 4 is stable. Previously seen 3 mm nodule in the right upper lobe along the right major fissure has resolved in the interim. There is a 2 mm nodule in the right middle lobe on series 302 image 115 There is a stable 3 to 4 mm nodule in the left base on image 135. There is no new or enlarging pulmonary nodule. The central airways are clear. Limited images through the upper abdomen show a right mid renal calculus measuring 5 mm on image 259. Bilateral renal cysts seen. Liver is unremarkable. Nonenlarged periportal lymph node is seen. There is no aggressive bony process. IMPRESSION: 1. Previously noted pulmonary nodule in the right upper lobe along the right major fissure has resolved. The previously described nodule in the right middle lobe is stable. Additional pulmonary nodules are stable. There is no new or enlarging pulmonary nodule. 2. Mild cardiomegaly. Electronically signed in [employer] by: OZZIE KRAUS MD on:10/11/2024 11:22 AM cc: Page PAGE 1 of [facility] 1 Wendi Whitmoreledge [facility] 10/12/2024 14:31:42 Problems Name Problem SNOMED Code Status Onset Date Resolution Date Notes Provider Name and Address Organization Details Recorded Time Multiple nodules of lung 284352121 Active 2024 Jason Eagle MD [address] [place] [address], [phone], [facility] 5 12:14:40 Asthma 877446044 Active 2024 Jason Eagle MD [address] [place] [address], [phone], [facility] 5 12:14:45 Obstructive sleep apnea syndrome 33279877 Active 2024 Jason Eagle MD [address] [place] [address], [phone], [facility] 5 12:14:52 Problem Notes None recorded. Medical Equipment None Reported. Allergies Allergen ID Allergen Name Allergen Category Reaction Reaction Severity Criticality Documentation Date Start Date Code Code System Note Provider Name and Address Organization Details Recorded Time 3954117 topiramat e medicatio n Not available Not available Not available 06/22/20242023 66136 RxNorm Not Available Pending sale to [facility] 4 06:40:25 4930139 tizanidin e medicatio n Not available Not available Not available 06/22/20242023 75421 RxNorm Not Available Pending sale to [facility] 4 06:40:26 096227 Product containin g 3-hydroxy -3-methyl glutaryl- coenzyme A reductase inhibitor (product) medicatio n Not available Not available Not available 10/12/20232020 05556 009 SNOMED Comme nt: Annot ation s: HANNY GEE (MONICA) , ANGELICA A 2020 8:43A M hives and body aches ; ; Not Available Pending sale to [facility] 4 21:57:34 Medications Name Sig Start Date Stop Date [...] e 50 mcg/actua tion nasal spray,k[employer] pension [place] 2 sprays every day by intranas al [...] in Arterial blood by Pulse oximetry Systolic And Diastolic Provider Name and Address Organization Details Last Updated DateTime 5 177.8 cm 41.9 kg/m2 073149. 97 g 92 /min 93 % 93 % 108/60 mm[Hg] Wendi Gonzalez [facility] 5 11:57:02 Social History None recorded. Functional Status None recorded. Mental Status None recorded. Family History Nothing Reported. Medical History No medical history recorded. Gynecological HistoryNo gynecological history recorded. Obstetrics History GPAL:G 0 P 0 0 0 0 Past Encounters Encounter ID Performer Location Encounter Start Date Encounter Closed Date Diagnosis/Indication Diagnosis SNOMED-CT Code Diagnosis ICD10 Code Diagnosis Note [id number] Jason Eagle MD [facility] ([place]) [address] [place] [address] 10/11/2024 10:57:24 10/11/2024 16:59:43 Multiple nodules of lung 334753776 R91.8 Asthma 292973778 J45.90 9 Obstructiv e sleep apnea syndrome 88695748 G47.33 Untreated. Health Concerns Section Related Observation LastModified by Organization Detai ls LastModified Time None Recorded Concern Status LastModified by Organization Details LastModified Time None Recorded Advance Directives Directive None Recorded Payers Insurance Date Sequence Insurance Name Policy Number Policy Wagoner Covered Member ID Wagoner Member ID Guarantor Name 10/12/2024 1 [facility] (MEDICARE REPLACEMENT/A DVANTAGE - PPO) [id number] [place] [id number] Gilma Henley Lina 10/12/2024 1 [place] [id number] Gilma Henley Lina 10/12/2024 1 [employer] (MEDICARE REPLACEMENT/A DVANTAGE - HMO) [id number] Gilma Jamesonatt [id number] Gilma Henley Lina Notes Date Note Type Note Provider Name [...] last. Jason Eagle MD [address] [place], [address], [facility] 10/11/2024 13:07:09 OBGyn Episode No OBEpisode recorded.
--- OUTSIDE RECORDS SUMMARY | 2025-03-21 10:43 | XMS_ITS | Encounter Summary ---
Author Organization [facility] Address [facility] [place] [address] Care Team Providers Care Floorwalker Name Role Phone Sebastien Sequeira MD Primary Care Provider [phone] Encounter Details Date Type Department Care Team (Latest Contact Info) Description 07/20/2018 Abstract [facility] , Zabrina Coffey MD [...] Rule Out 08/10/2020 08/10/2020 08/11/2020 11:50 AM DONATIONS ATTENDANT COVID-19 Rule Out 11/16/2020 11/16/2020 11/18/2020 8:06 AM DONATIONS ATTENDANT COVID-19 Rule Out 06/21/2021 06/21/2021 06/21/2021 7:19 PM CDT documented as of this encounter Care Teams Floorwalker Relationship Specialty Start Date End Date Sebastien Sequeira MD [address] [place] [address] PCP - General INTERNAL MEDICINE 08/02/20 documented as of this encounter
--- OUTSIDE RECORDS SUMMARY | 2025-03-21 10:43 | XMS_ITS | Clinical Summary ---
Author Organization [facility] Address [address] [place] [address] Care Team Providers Care Risk Adjustment Specialist Name Role Phone Sebastien Sequeira MD Primary Care Provider [phone] Allergies Active Allergy Reactions Criticality Noted Date [...] Follow-up examination after orthopedic surgery 12/10/2021 07/14/2022 Family History Medical History Relation Comments histoplasmosi [...] drink = 0.6 oz pur e alcohol) [facility] Utilities Answer Date Recorded In the [...] any time in the past 12 m [facility], were you homeless or living in a senior care (including now)? No 03/31/2024 Comments No Sex and Gender Information Value Date Recorded Sex Assigned at Not on file Legal Sex Female 2:03 AM CDT Gender Identity Not on file Sexual Orientation Not on file Last Filed Vital Signs Vital Sign Reading Time Taken Comments Blood Pressure 129/73 09/01/2024 10:26 AM INDUSTRIAL GAS FITTER Pulse 77 09/01/2024 10:26 AM INDUSTRIAL GAS FITTER Temperature 36 C (96.8 F) 09/01/2024 10:26 AM INDUSTRIAL GAS FITTER Respiratory Rate 18 09/01/2024 10:26 AM INDUSTRIAL GAS FITTER Oxygen Saturation 95% 09/01/2024 10:26 AM INDUSTRIAL GAS FITTER Inhaled Oxygen Concentration - - Weight 131.5 kg (290 lb) 09/01/2024 7:05 AM INDUSTRIAL GAS FITTER Height 172.7 cm (5' 8) 09/01/2024 7:05 AM INDUSTRIAL GAS FITTER Body Mass Index 44.09 09/01/2024 7:05 AM INDUSTRIAL GAS FITTER Plan of Treatment Health Maintenance Due Date [...] 2016 Dexa Scan (General) 2016 Pneumococcal Vaccine: 50+ Years (2 of 2 - PPSV23) 08/23/2017 08/23/2016 COVID-19 Vaccine (3 - 2023-2 5 season) 2024 11/23/2020, 11/02/2020 Meningococcal B Vaccine Aged Out No l [...] on safety. Medical Devices Implanted Type Area Stamp Presser Device Identifier Shelf Expiration Date Model / Serial / Lot Cement Bone /10 Fast Set Depuy - [id number] Implanted:Qty: 1 on 03/31/2024 by Cameron Avery MD at [facility] Cement Implant Left: Shoulder DEPUY 07/14/2025 [id number] / / Cup Hip Acetabular Depuy 52mm - [id number] Implanted:Qty: 1 on 08/13/2020 by Gustavo So MD at [facility] Hip Components Left: Hip DEPUY 11/11/2029 [id number] / / [id number] Stem Hip Depuy Tapered - [id number] Implanted:Qty: 1 on 08/13/2020 by Gustavo So MD at [facility] Hip Components Left: Hip DEPUY 01/11/2030 [id number] / / [id number] Head Depuy Femoral Articuleze 36mm +8.5 - [id number] Implanted:Qty: 1 on 08/13/2020 by Gustavo So MD at [facility] Hip Components Left: Hip DEPUY 07/14/2024 [id number] / / [id number] Liner Depuy Acet Altrx +4 10d 36 X 52 - [id number] Implanted:Qty: 1 on 11/19/2020 by Gustavo So MD at [facility] Hip Components Right: Hip DEPUY [id number] 07/14/2025 [id number] / / [id number] Stem Hip Depuy Tapered - [id number] Implanted:Qty: 1 on 11/19/2020 by Gustavo So MD at [facility] Hip Components Right: Hip DEPUY [id number] 06/13/2030 [id number] / / [id number] Stem Humeral 120mm 12mm Modular Global Unite [place]oat Standard Shoulder Sterile Platform Arthroplasty System - [id number] Implanted:Qty: 1 on 06/24/2021 by Gustavo So MD at [facility] Humeral Right: Shoulder DEPUY [id number] 02/11/2031 [id number] / / [id number] Cup Humeral Standard Delta Xtend Depuy - [id number] Implanted:Qty: 1 on 06/24/2021 by Gustavo So MD at [facility] Humeral Right: Shoulder DEPUY [id number] 03/13/2026 [id number] / / [id number] Spacer Humeral Depuy 9mm - [id number] Implanted:Qty: 1 on 06/24/2021 by Gustavo So MD at [facility] Humeral Right: Shoulder DEPUY [id number] 10/14/2024 [id number] / / [id number] Screw Depuy Cancellous Bone 6.5mm X 30mm - [id number] Implanted:Qty: 1 on 11/19/2020 by Gustavo So MD at [facility] Screw Right: Hip DEPUY [id number] 08/13/2030 [id number] / / [id number] Screw Locking Depuy Delta Xtend Lg 30mm - [id number] Implanted:Qty: 1 on 06/24/2021 by Gustavo So MD at [facility] Screw Right: Shoulder DEPUY [id number] 02/11/2026 [id number] / / [id number] Screw Locking Depuy Delta Xtend Lg 36mm - [id number] Implanted:Qty: 1 on 06/24/2021 by Gustavo So MD at [facility] Screw Right: Shoulder DEPUY [id number] 01/11/2026 [id number] / / [id number] Screw Locking Depuy Delta Xtend Lg 30mm - [id number] Implanted:Qty: 1 on 06/24/2021 by Gustavo So MD at [facility] Screw Right: Shoulder DEPUY [id number] 12/12/2025 [id number] / / [id number] Screw Non Locking Depuy Delta Xtend Lg 18mm - [id number] Implanted:Qty: 1 on 06/24/2021 by Gustavo So MD at [facility] Screw Right: Shoulder DEPUY [id number] 03/13/2026 [id number] / / [id number] Screw Compression /Locking Cap Kit Exactech 4.5 X 38mm - [id number] Implanted:Qty: 1 on 03/31/2024 by Cameron Avery MD at [facility] Screw Left: Shoulder EXACTECH 10/12/2028 320-20-38 / / Screw Reverse Torque Defing Exactech - [id number] Implanted:Qty: 1 on 03/31/2024 by Cameron Avery MD at [facility] Screw Left: Shoulder EXACTECH 01/24/2029 320-20-00 / / Screw Compression /Locking Cap Kit Exactech 4.5 X 22mm - [id number] Implanted:Qty: 1 on 03/31/2024 by Cameron Avery MD at [facility] Screw Left: Shoulder EXACTECH 10/31/2028 320-20-22 / / Screw Compression /Locking Cap Kit Exactech 4.5 X 38mm - [id number] Implanted:Qty: 1 on 03/31/2024 by Cameron Avery MD at [facility] Screw Left: Shoulder EXACTECH 11/01/2028 320-20-38 / / Screw Locking Glenosphere Exactech - [id number] Implanted:Qty: 1 on 03/31/2024 by Cameron Avery MD at [facility] Screw Left: Shoulder EXACTECH 11/24/2028 320-15-05 / / Screw Compression /Locking Cap Kit Exactech 4.5 X 30mm - [id number] Implanted:Qty: 1 on 03/31/2024 by Cameron Avery MD at [facility] Screw Left: Shoulder EXACTECH 10/05/2028 320-20-30 / / Metaglene Depuy Delta Xtend - [id number] Implanted:Qty: 1 on 06/24/2021 by Gustavo So MD at [facility] Shoulder Components Right: Shoulder DEPUY [id number] 03/13/2026 [id number] / / [id number] Epiphysis Delta Xtend Depuy Size 1 Right - [id number] Implanted:Qty: 1 on 06/24/2021 by Gustavo So MD at [facility] Shoulder Components Right: Shoulder DEPUY [id number] 05/14/2025 [id number] / / [id number] Liner Depuy Acet Altrx +4 10d 36 X 52 - [id number] Implanted:Qty: 1 on 08/13/2020 by Gustavo So MD at [facility] Left: Hip DEPUY 02/11/2023 [id number] / / [id number] Hip Acetabular Depuy 52mm - [id number] Implanted:Qty: 1 on 11/19/2020 by Gustavo So MD at [facility] Right: Hip DEPUY [id number] 09/13/2030 [id number] / / [id number] M-Spec Metal Femoral Head Implanted:Qty: 1 on 11/19/2020 by Gustavo So MD at [facility] Right: Hip DEPUY [employer] 09/13/2025 [id number] / / [id number] Delta Xtend Lateralized Glenosphere +2mm 38 Standard Implanted:Qty: 1 on 06/24/2021 by Gustavo So MD at [facility] Right: Shoulder [id number] 04/13/2026 [id number] / / [id number] Glenoid Baseplate Implanted:Qty: 1 on 03/31/2024 by Cameron Avery MD at [facility] Left: Shoulder EXACTECH 06/03/2033 320-35-02 / / Reverse Glenosphere Implanted:Qty: 1 on 03/31/2024 by Cameron Avery MD at [facility] Left: Shoulder EXACTECH 11/19/2033 320-31-40 / / 3.2 Drill Bit Implanted:Qty: 1 on 03/31/2024 by Cameron Avery MD at [facility] Left: Shoulder EXACTECH 02/19/2033 321-52-07 / / Humeral Adapter Tray Implanted:Qty: 1 on 03/31/2024 by Cameron Avery MD at [facility] Left: Shoulder EXACTECH 01/04/2034 322-10-00 / / Humeral Stem Implanted:Qty: 1 on 03/31/2024 by Cameron Avery MD at [facility] Left: Shoulder EXACTECH 12/28/2033 300-01-00 / / 40mm Humeral Liner Implanted:Qty: 1 on 03/31/2024 by Cameron Avery MD at [facility] Left: Shoulder EXACTECH 12/13/2028 322-40-00 / / Explanted Type Area Stamp Presser Device Identifier Shelf Expiration Date Model / Serial / Lot Drill Bit Wallace Depuy 40mm - [id number] Explanted:Qty: 1 on 11/19/2020 at [facility] Drill Right: Hip DEPUY [id number] / / Drill Bit Depuy 2.5 - [id number] Explanted:Qty: 1 on 06/24/2021 at [facility] Drill Right: Shoulder DEPUY [id number] / / Metaglene Guide Pin 2.5 Mm Explanted:Qty: 1 on 06/24/2021 at [facility] Right: Shoulder [id number] / / 3.2mm Gps Drill Explanted:Qty: 1 on 03/31/2024 by Cameron Avery MD at [facility] Left: Shoulder EXACTECH 11/17/2032 531-55-88 / / Threaded Pin Kit Explanted:Qty: 1 on 03/31/2024 by Cameron Avery MD at [facility] Left: Shoulder EXACTECH 01/24/2033 531-78-20 / / Gps User Kit Explanted:Qty: 1 on 03/31/2024 by Cameron Avery MD at [facility] Left: Shoulder EXACTECH 02/27/2026 [id number] / / Drill Bit Explanted:Qty: 1 on 03/31/2024 by Cameron Avery MD at [facility] Left: Shoulder EXACTECH 02/19/2033 321-52-07 / / Advance Directives Documents on File Type Date Recorded Patient Program Writer Expl anation Advance Directives and Living Will 08/14/2020 9:58 AM 08/03/2020 DURABLE POWER OF PURCHASE ORDER CHECKER FOR HEALTH CARE Advance Directives and Living [...] 6:55 PM 08/14/2020 6:46 PM Care Teams Risk Adjustment Specialist Relationship Specialty Start Date End Date Sebastien Sequeira MD [address] [place] [address] PCP - General INTERNAL MEDICINE 08/02/20
--- OUTSIDE RECORDS SUMMARY | 2025-03-21 10:43 | XMS_ITS | Patient Health Record ---
Author Organization [facility] Address [address] [place], [place] [id number] Care Team Providers Care Rail Car Repairman Name Role Phone Sebastien Sequeira Unavailable Unavailable Reason For Referral No Information Medications Medication SIG (Take, Route, Frequency, Duration) Notes Start Date End Date Status alprazolam 0.25 MG Disintegrating Oral Tablet ORAL alprazolam 0.25 MG Disintegrating Oral TabletOriginal Medicationalprazolam 0.25 MG Disintegrating Oral Tablet *Reorder from [facility] for eRx and Interaction Alerts* 6 Active acetaminophen 325 MG / hydrocodone bitartrate 5 MG Oral Tablet ORAL acetaminophen 325 MG / hydrocodone bitartrate 5 MG Oral TabletOriginal Medicationacetaminophen 325 MG / hydrocodone bitartrate 5 MG Oral Tablet *Reorder from [facility] for eRx and Interaction Alerts* 6 Active levothyroxine sodium 0.075 MG Oral Tablet ORAL levothyroxine sodium 0.075 MG Oral TabletOriginal Medicationlevothyroxine sodium 0.075 MG Oral Tablet *Reorder from [facility] for eRx and Interaction Alerts* 6 Active furosemide 20 MG Oral Tablet [Lasix] ORAL furosemide 20 MG Oral Tablet [Lasix]Original Medicationfurosemide 20 MG Oral Tablet [Lasix] *Reorder from [facility] for eRx and Interaction Alerts* 6 Active Spironolactone 100 MG Oral Tablet ORAL spironolactone 100 MG Oral TabletOriginal Medicationspironolactone 100 MG Oral Tablet *Reorder from [facility] for eRx and Interaction Alerts* 6 Active Pravastatin Sodium 40 MG Oral Tablet ORAL pravastatin sodium 40 MG Oral TabletOriginal Medicationpravastatin sodium 40 MG Oral Tablet *Reorder from [facility] for eRx and Interaction Alerts* 6 Active tramadol hydrochloride 50 MG Oral Tablet ORAL tramadol hydrochloride 50 MG Oral TabletOriginal Medicationtramadol hydrochloride 50 MG Oral Tablet *Reorder from [facility] for eRx and Interaction Alerts* 6 Active 24 HR verapamil hydrochloride 240 MG Extended Release Oral Capsule ORAL 24 HR verapamil hydrochloride 240 MG Extended Release Oral CapsuleOriginal [id number] HR verapamil hydrochloride 240 MG Extended Release Oral Capsule *Reorder from [facility] for eRx and Interaction Alerts* 6 Active 24 HR venlafaxine 150 MG Extended Release Oral Capsule [Effexor] ORAL 24 HR venlafaxine 150 MG Extended Release Oral Capsule [Effexor]Original [id number] HR venlafaxine 150 MG Extended Release Oral Capsule [Effexor] *Reorder from [facility] for eRx and Interaction Alerts* 6 Active nortriptyline 25 MG Oral Capsule ORAL nortriptyline 25 MG Oral CapsuleOriginal Medicationnortriptyline 25 MG Oral Capsule *Reorder from [facility] for eRx and Interaction Alerts* 6 Active clonazePAM 1 MG Oral Tablet ORAL clonazepam 1 MG Oral TabletOriginal Medicationclonazepam 1 MG Oral Tablet *Reorder from [facility] for eRx and Interaction Alerts* 6 Active ropinirole 2 MG Oral Tablet ORAL ropinirole 2 MG Oral TabletOriginal Medicationropinirole 2 MG Oral Tablet *Reorder from [facility] for eRx and Interaction Alerts* 6 Active pregabalin 200 MG Oral Capsule [Lyrica] ORAL pregabalin 200 MG Oral Capsule [Lyrica]Original Medicationpregabalin 200 MG Oral Capsule [Lyrica] *Reorder from [facility] for eRx and Interaction Alerts* 6 Active Plan Of Treatment No Information Insurance Providers Payer Name Payer Address Payer Phone Subscriber Number Group Number Insured Name Patient Relationship to Insured Coverage Start Date Coverage End Date Medicare Part B [facility] [address] [place] [address] [id number] KEEGAN ALVES Self - patient is the insured [employer] [address] [address] [place] [address] [id number] KEEGAN ALVES Self - patient is the insured
[2025-03-21 10:54] LABS: Add Urine Microscopic? YES; Glucose Urine UA Negative (Negative); Hematocrit 42.8 % (35.0-42.0); Hemoglobin 13.8 g/dL (11.7-13.8); Leukocyte Esterase Ur 3+ (Negative); Mean Corpuscular HGB Conc 32.2 g/dL (32-36); Mean Corpuscular Hemoglobin 29.3 pg (27.0-31.0); Mean Corpuscular Volume 90.9 fL (78.0-102.0); Nitrate Urine Negative (Negative); Platelet Count Result 207 K/mm3 (150-420); Red Blood Count 4.71 M/mm3 (4.20-5.40); Specific Grav Ur 1.010 (1.010-1.020); White Blood Count 5.6 K/mm3 (4.8-10.8)
[2025-03-21 11:05] LABS: Appearance Urine Cloudy (Clear)
[2025-03-21 12:07] LABS: Alanine Aminotransferase 23 U/L (6-35); Albumin Level 3.7 g/dL (3.5-5.1); Alkaline Phosphatase 78 U/L (38-126); Anion Gap 4 mmol/L (4-12); Aspartate Amino Transferase 34 U/L (14-36); Bilirubin,Total 0.5 mg/dL (0.2-1.3); Blood Urea Nitrogen 8 mg/dL (7-17); CRP < 0.5 mg/dL (<1.0); Calcium 9.0 mg/dL (8.4-10.2); Carbon Dioxide 34 mmol/L (22-30); Chloride 104 mmol/L (98-107); Estimated Glomerular Filt Rate > 60; Glucose 93 mg/dL (65-110); Osmolality Calculated 292 mOsm/kg (285-295); Potassium 3.5 mmol/L (3.4-5.0); Sodium 142 mmol/L (137-145); Total Protein 6.2 g/dL (6.3-8.2)
== END 2025-03-21 10:35 | disposition home or self-care (01) ==
LOC: CHSLAB 10:36
PROVIDERS: PCP Internal Medicine; Visit Provider Internal Medicine
DX: R11.2 Nausea with vomiting, unspecified (principal)
CPT/HCPCS: 36415; 80053; 81001; 85027; 86140

== ENCOUNTER 2025-05-09 11:10 | Outpatient (CLI) | payer MEDICARE, SELFPAY ==
[2025-05-09 11:37] LABS: Add Urine Microscopic? YES; Appearance Urine Clear (Clear); Glucose Urine UA Negative (Negative); Hematocrit 48.8 % (35.0-42.0); Hemoglobin 15.1 g/dL (11.7-13.8); Leukocyte Esterase Ur 2+ (Negative); Mean Corpuscular HGB Conc 30.9 g/dL (32-36); Mean Corpuscular Hemoglobin 29.7 pg (27.0-31.0); Mean Corpuscular Volume 96.1 fL (78.0-102.0); Nitrate Urine Negative (Negative); Platelet Count Result 243 K/mm3 (150-420); Red Blood Count 5.08 M/mm3 (4.20-5.40); Specific Grav Ur <= 1.005 (1.010-1.020); White Blood Count 6.3 K/mm3 (4.8-10.8)
--- OUTSIDE RECORDS SUMMARY | 2025-05-09 11:39 | XMS_ITS | Encounter Summary ---
Author Organization [facility] Address [address] [place] [address] Care Team Providers Care Prep Room Supervisor Name Role Phone Sebastien Sequeira MD Primary Care Provider [phone] Sebastien Sequeira MD Unavailable [phone] Encounter Details Date Type Department Care Team (Late st Contact Info) Description 10/31/2024 Orders Only [facility] Health Information Management [address] [place] [id number] Scanning, Provider Social History Tobacco Use Types Packs/Day Years Used Date Smoking Tobacco: Never Smokeless Tobacco: Never Personal Safety Answer Date Recorded Have you ever been in or are you currently in a harmful physical or emotional relationship or is someone making you feel afraid or unsafe? Denies 06/29/2023 Comments Unknown Sex and Gender Information Value Date Recorded Sex Assigned at Not on file Legal Sex Female 7:58 AM PHOTOGRAPHER STILL Gender Identity Female 02/10/2023 9:38 AM CDT Sexual Orientation Straight 02/10/2023 9: 38 AM CDT documented as of this encounter Plan of Treatment Not on file documented as of this encounter Procedures Procedure Name Priority Date/Time Associated Diagnosis Comments SCAN - LABS 10/31/2024 documented in this encounter Results * SCAN - LABS (10/31/2024) us Provider Scanning Final Result documented in this encounter Visit Diagnoses Not on filedocumented in this encounter Care Teams Prep Room Supervisor Relationship Specialty Start Date End Date Sebastien Sequeira MD PCP - General 06/04/17 Sebastien Sequeira MD 06/04/17 documented as of this encounter
--- OUTSIDE RECORDS SUMMARY | 2025-05-09 11:39 | XMS_ITS | Clinical Summary ---
Author Organization [facility] Healthcare Address [address] [place] [address] Care Team Providers Care Physical Geographer Name Role Phone Sebastien Sequeira MD Primary Care Provider [phone] Sebastien Sequeira MD Unavailable [phone] Allergies Active Allergy Reactions Criticality Noted Date Comments Adhesive Blisters High 12/22/2023 Alendronate Sodium Unknown 12/22/2023 Cefdinir Unknown 12/22/2023 Atorvastatin Rash Medium 11/02/2018 Naltrexone-Bupropion Dizziness Low 08/03/2020 Ocqcwub-Scm-Lls Reductase Inhibitors Rash Medium 08/03/2020 Tizanidine Hypotension,Other (S ee comments) High 11/02/2018 hypotension Topiramate Other (See comments),Nausea And Vomiting,Unknown Medium 12/10/2023 Medications pregabalin (LYRICA) 150 mg capsule 3 (three) times a day Active meclizine (ANTIVERT) 25 mg tablet PT TAKING PRN 02/16/20 18 Active rOPINIRole (REQUIP) 2 mg tablet 04/10/20 18 Active clopidogreL (PLAVIX) 75 mg tabletIndications:Ce rebral Thromboembolism Prevention Take 1 tablet (75 mg total) by mouth daily 11/14/[address] (PROTONIX) 40 mg EC tablet Take 1 tablet (40 mg total) by mouth daily 11/08/19 22 Active semaglutide (OZEMPIC SUBQ) 11/15/19 22 Active clonazePAM (KlonoPIN) 1 mg tablet Take 1 tablet (1 mg total) by mouth 2 (two) times a day 05/25/20 23 Active fluticasone propionate (FLONASE) 50 mcg/actuation nasal spray Administer 1 spray into each nostril daily Active melatonin 10 mg tablet Take 1 tablet (10 mg total) by mouth nightly Active acetaminophen ER (TYLENOL) 650 mg 8 hr tablet Take 1 tablet (650 mg total) by mouth every 8 (eight) hours as needed for pain Active levothyroxine (Levo-T) 112 mcg tablet Take 1 tablet (112 mcg total) by mouth stone polisher hand before breakfast 05/22/20 23 Active magnesium oxide 400 mg magnesium capsule Take 500 mg by mouth Active Breo Ellipta 200-25 mcg/dose diskus inhaler 11/13/19 24 Active albuterol HFA (PROVENTIL HFA,VENTOLIN HFA,PROAIR HFA) 90 mcg/actuation inhaler Inhale 2 puffs every 6 (six) hours as needed Active VIT B COMPLEX 100 COMBO NO.2 ORAL 11/30/19 24 Active ezetimibe (ZETIA) 10 mg tablet Take 1 tablet (10 mg total) by mouth daily 90 tablet 3 05/03/20 24 Active rosuvastatin (CRESTOR) 40 mg tablet Take 1 tablet (40 mg total) by mouth daily 90 tablet 3 06/03/20 24 Active furosemide (LASIX) 40 mg tablet Take 1 tablet (40 mg total) by mouth daily 90 tablet 3 07/29/20 24 Active propranolol LA (INDERAL LA) 120 mg 24 hr capsuleIndications:P SVT (paroxysmal supraventricular tachycardia) Take 1 capsule (120 mg total) by mouth daily 90 capsule 3 11/16/19 25 026 Active busPIRone (BUSPAR) 30 mg tablet Take 1 tablet (30 mg total) by mouth 3 (three) times a day 10/24/19 25 Active venlafaxine XR (EFFEXOR-XR) 37.5 mg 24 hr capsule TAKE 1 CAPSULE BY MOUTH ONCE DAILY WITH FOOD FOR 90 DAYS 10/10/19 25 Active venlafaxine 150 mg tablet extended release 24hr 24 hr tablet Take 1 tablet (150 mg total) by mouth daily with breakfast Take with 37.5 mg for dose increase Active mirtazapine (REMERON) 15 mg tablet Take 1 tablet (15 mg total) by mouth nightly 08/29/20 24 Active ibuprofen 200 mg tab/cap Take 4 tablet/capsul e (800 mg total) by mouth every 6 (six) hours as needed for pain Active HYDROcodone-acetamin ophen (NORCO) 5-325 mg per tabletIndications:Pa in Take 1 tablet by mouth every 6 (six) hours as needed for pain (postop pain) 12 tablet 04/11/20 25 Active spironolactone (ALDACTONE) 25 mg tablet Take 1 tablet (25 mg total) by mouth daily 90 tablet 3 05/01/20 25 Active spironolactone (ALDACTONE) 25 mg tablet Take 1 tablet (25 mg total) by mouth daily 90 tablet 3 07/29/20 24 025 Discontin ued(Reord er) cyclobenzaprine (FLEXERIL) 10 mg tablet Take 1 tablet (10 mg total) by mouth nightly as needed 11/10/19 25 025 Discontin ued(Thera py completed ) traMADoL (ULTRAM) 50 mg tablet Take 1 tablet (50 mg total) by mouth daily as needed for pain 30 tablet 02/10/20 25 025 Discontin ued(Stop Taking at Discharge ) Active Problems Problem Noted Date Diagnosed Date S/P insertion of spinal cord stimulator 04/18/20 25 Overview (04/18/2025): Sherly, MRI conditional to 1.5 T Intractable peripheral neuro bunny, bilateral lower extremities 12/16/2024 Failed back surgical syndrome 12/16/2024 Chronic heart failure with preserved ejection fr action 06/03/2024 History of CVA (cerebrovascular accident) 2023 Status post catheter ablation of slow pathway Frequent PVCs 08/25/2023 SVT (supraventricular tachycardia) 06/29/2023 PSVT (paroxysmal supraventricular tachycardia) 0 06/02/2023 Migraine headache 08/25/2017 Hypertension 05/05/2017 Hyperlipidemia 05/05/2017 Fibromyalgia 05/05/2017 Anaclitic depression 05/05/2017 Anxiety 05/05/2017 Thyroid activity decreased 05/05/2017 Blepharospasm 05/05/2017 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 Overview (12/24/2017): Description: R, 1997 Restless legs 05/05/2017 Neuropathy 05/05/2017 Osteoarthritis 05/05/2017 Unspecified cataract 05/05/2017 Obstructive sleep apnea syndrome in adult 2016 Migraine with aura 05/05/2017 Migraine with vertigo 05/05/2017 Encounters Date Type Department Care Team Description 05/01/2025 Telephone [facility] Cardiology [address] [place] [address] Tammy Hernandez NP 04/18/2025 10:01 AM CDT - 04/18/2025 11:59 PM CDT Hospital Encounter [facility] [address] [place] [address] Frank Garcia MD S/P insertion of spinal cord stimulator (Primary Dx); Failed back surgical syndrome; Intractable peripheral neuropathy, bilateral lower extremities Discharge Disposition: Discharge to home or self care 04/11/2025 12:56 PM CDT Anesthesia Event [facility] Operating Room [address] [place] [address] Cameron Fox MD Reynolds, Ethan Emerson, MD 04/11/2025 12:00 PM CDT - 04/11/2025 1:30 PM CDT Surgery [facility] Operating Room [address] [place] [address] Frank Garcia MD INSERTION SPINAL CORD STIMULATOR IMPLANT 04/11/2025 10:02 AM CDT - 04/11/2025 4:57 PM CDT Hospital Encounter [facility] Operating Room [address] [place] [address] Frank Garcia MD Discharge Disposition: Discharge to home or self care 03/29/2025 Telephone [facility] [address] [facility] [address] [place] [address] Frank Garcia MD 02/09/2025 11:05 AM CDT - 02/09/2025 11:59 PM CDT Hospital Encounter [facility] [address] [facility] [address] [place] [address] Frank Garcia MD Failed back surgical syndrome (Primary Dx) Discharge Disposition: Discharge to home or self care from Last 3 Months Surgical History Surgery Date Site/Laterality Comments MT ARTHROPLASTY KNEE TIBIAL PLATEAU Knee Replacement - (Added by Conv) FOOT SURGERY Foot Surgery - (Added by Conv) ROTATOR CUFF REPAIR Rotator Cuff Repair - (Added by Conv) MT TOTAL ABDOMINAL HYSTERECT W/WO RMVL TUBE OVARY Hysterectomy - (Added by Conv) MT TENDON SHEATH INCISION Hand Incision Tendon Sheath Of A Finger - (Added by Conv) HYSTERECTOMY TOTAL KNEE ARTHROPLASTY HIP SURGERY SHOULDER SURGERY SPINAL FUSION Medical History Medical History Date Comments Cerebrovascular accident (CVA) (HCC) Degenerative joint disease Depression Diastolic dysfunction Hypertension Hyperthyroidism Mitral valve prolapse Paroxysmal SVT (supraventricular tachycardia) RLS (restless legs syndrome) Sleep apnea PSVT (paroxysmal supraventricular tachycardia) Asthma Anxiety Atrial fibrillation (HCC) Family History Medical History Relation Name Comments COPD Brother Lung cancer Brother COPD Father Breast cancer Mother Family history of malignant neoplasm of breast - (Added by Conv) Migraines Mother Family history of migraine headaches - (Added by Conv) Migraines Sister 1 Family history of migraine headaches - (Added by TW Conv) Depression Sister 2 JAT Family history of depression - (Added by Conv) Multiple sclerosis Sister 3 Family hi story of multiple sclerosis - (Added by Conv) Relation Name Status Comments Brother Father Mother Sister 1 Sister 2 JAT Sister 3 Social History Tobacco Use Types Packs/Day Years Used Date Smoking Tobacco: Never Smokeless Tobacco: Never Tobacco Cessation:Counseling Given: Not Answered AUDIT-C Answer Date Recorded Q1: How often do you have a drink containing alc ohol? Monthly or less 04/11/2025 Q2: How many drinks containi ng alcohol do you have on a typical day when you are drinking? 1 or 2 04/11/2025 Q3: How often do you have si x or more drinks on one occasion? Never 04/11/2025 PHQ-2 Answer Date Recorded PHQ-2 Total Score (If total score is 3 or more points, staff should administer the PHQ-9) 3 12/16/2024 PHQ-9 Answer Date Recorded PHQ-9 Total Score 11 12/16/2024 Personal Safety Answer Date Recorded Have you ever been in or are you currently in a harmful physical or emotional relationship or is someone making you feel afraid or unsafe? 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 Gender Identity Female 02/10/2023 9:38 AM CDT Sexual Orientation Straight 02/10/2023 9: 38 AM CDT Obstetrics History Last Filed Vital Signs Vital Sign Reading Time Taken Comments Blood Pressure 142/85 04/18/2025 10:35 AM CDT Pulse 80 04/18/2025 10:35 AM CDT Temperature 35.9 C (96.7 F) 04/11/2025 4:30 PM CDT Respiratory Rate 18 04/18/2025 10:3 5 AM CDT Oxygen Saturation 92% 04/18/2025 10: 35 AM CDT Inhaled Oxygen Concentration - - Weight 132.3 kg (291 lb 10.7 oz) 2024 10:36 AM CDT Height 177.8 cm (5' 10) 04/11/2025 10: 36 AM CDT Body Mass Index 41.85 04/11/2025 10:36 AM CDT Plan of Treatment Health Maintenance Due Date Last Done Comments Breast Cancer Screening-Mammogram 1950 Colon Cancer Screening-Colonoscopy 1950 Hepatitis C Screening 1950 Osteoporosis Screening-Bone Density Scan 1950 DTaP/Tdap/Td Vaccine (1 - Tdap) 1962 Hepatitis B Screening 1969 Zoster Vaccine (2 of 3) 10/17/2015 08/22/2015 Well Visit 65+ 2016 Influenza Vaccine (#1) 2025 9, 06/25/2018, 06/04/2017, Additional history exists Depression Screening 12/16/2025 12/16/2024, 12/17/19 25 Fall Risk Assessment 03/29/2026 03/29/2025, 06/30/20 23 Pneumococcal vaccine 65+ Completed 018, 08/23/2016, 09/14/2010 Medical Devices Implanted Type Area Computer Forensics Investigator Device Identifier Shelf Expiration Date Model / Serial / Lot [employer] Device Closure Vascade Od5 Fr Femoral Artery [id number] - [id number] Implanted:Qty: 1 on 06/29/2023 by Aleksander Novak MD at [facility] 2025 [id number] -[id number] / / [id number] [facility] Medical [facility] Device Vascular Closure Femoral Artery Bioabsorbable Dual Method Vascade 6-7fr Collagen [id number] - [id number] Implanted:Qty: 1 on 06/29/2023 by Aleksander Novak MD at [facility] 12/22/2024 [id number]- 05U / / [id number] [employer] Vascade Mvp 6-12fr Venous Closure [id number] - [id number] Implanted:Qty: 1 on 06/29/2023 by Aleksander Novak MD at [facility] 03/19/2025 [id number]- 10U / / [id number] 12C [facility] Vascade Mvp 6-12fr Venous Closure [id number] - [id number] Implanted:Qty: 1 on 06/29/2023 by Aleksander Novak MD at [facility] 02/17/2025 800-612C- 10U / / [id number] [id number] Nevro Rio Lead Neurostimulator Percutaneous Spine Trial Octrode Titanium 7dgn10qh Sdsus8237-11a - [id number] Implanted:Qty: 2 on 02/02/2025 by Frank Garcia MD at [facility] N/A: Back Nevro Rio 10/14/2027 [id number] / / [id number] Nevro Rio Kit Lead Neurostimulator Percutaneous Spine 0jpv73cm [id number] - [id number] Implanted:Qty: 1 on 04/11/2025 by Frank Garcia MD at [facility] N/A: Back Nevro Rio 01/13/2028 [id number] / / [id number] Nevro Rio Kit Lead Neurostimulator Percutaneous Spine 1kqr61ky Cxqs5936-48f - [id number] Implanted:Qty: 1 on 04/11/2025 by Frank Garcia MD at [facility] N/A: Back Nevro Rio 01/13/2028 [id number] [id number] / / [id number] [employer] Kit Implant Lead [place] Neurostimulator Percutaneous Spine [place] Titanium 2.3mm [id number] - [id number] Implanted:Qty: 1 on 04/11/2025 by Frank Garcia MD at [facility] N/A: Back Nevro Rio 11/13/2027 [id number] / / [id number] [employer] Kit Hfx-Iq Implantable Pulse Generator Nevro Hfx-D 1090-C - [id number] - [id number] Implanted:Qty: 1 on 04/11/2025 by Frank Garcia MD at [facility] N/A: Back Nevro Rio 12/14/2027 1090-[id number] / [id number] / [id number] Procedures Procedure Name Priority Date/Time Associated Diagnosis Comments XR SPINE THORACIC 2 VIEWS IP Routine 04/11/2025 2:12 PM CDT FL FLUOROSCOPY < 1 HOUR IP Routine 04/11/2025 2:12 PM CDT MT AN ELECTIVE ENDOTRACHEAL AIRWAY Routine 04/11/2025 1:21 PM CDT INSERTION SPINAL CORD STIMULATOR - TRIAL IMPLANT ELECTRODE 04/11/2025 12:41 PM CDT failed back surgical syndrome [dx m96.1] POTASSIUM, WHOLE BLOOD STAT 04/11/2025 10:49 AM CDT from Last 3 Months Results * FL Fluoroscopy < 1 Hour (04/11/2025 2:12 PM CDT) Narrative [facility] - 04/11/2025 2:14 PM CDT The images from this study are not interpreted by Radiology. Please refer to the physician's procedure / OR operative note. us Frank Garcia MD IMG FLUOROSCOPY PROCEDU RES Final Result [facility] * XR Spine Thoracic 2 Views (04/11/2025 2:12 PM CDT) Anatomical Region Laterality Modality Spine N/A Radio Fluoroscop y 04/19/2025 8:33 AM CDT Narrative 04/19/2025 8:34 AM CDT EXAM DESCRIPTION: 1. XR SPINE THORACIC 2 VIEWS REASON FOR STUDY: pain INSERTION SPINAL CORD STIMULATOR IMPLANT Fluoro dose - 104.32 mgy Fluoro time - 189.7 seconds FINDINGS: Multiple fluoroscopic images consisting of 2 view(s) submitted with comparison 02/02/2025 . Reference air kerma equals 104.32 mGy. Fluoroscopic images demonstrate an in progress thoracic stimulator placement . IMPRESSION: 1. In progress thoracic stimulator placement. THIS IS AN ELECTRONICALLY VERIFIED FINAL REPORT 04/19/2025 8:34 AM - Electronically signed by Héctor Marcus M.D. MF: [id number] Report ID: [id number] Reading Location: [id number] Procedure Note Héctor Marcus MD - 04/19/2025 EXAM DESCRIPTION: 1. XR SPINE THORACIC 2 VIEWS REASON FOR STUDY: pain INSERTION SPINAL CORD STIMULATOR IMPLANT Fluoro dose - 104.32 mgyFluoro time - 189.7 seconds FINDINGS: Multiple fluoroscopic images consisting of 2 view(s) submitted with comparison 02/02/2025 . Reference air kerma equals 104.32 mGy. Fluoroscopic images demonstrate an in progress thoracic stimulatorplacement . IMPRESSION: 1. In progress thoracic stimulator placement. THIS IS AN ELECTRONICALLY VERIFIED FINAL REPORT 04/19/2025 8:34 AM - Electronically signed by Héctor Marcus M.D. MF: [id number] Report ID: [id number] Reading Location: [id number] Frank Garcia MD IMG XR PROCEDURES Final Result * MT AN ELECTIVE ENDOTRACHEAL AIRWAY (04/11/2025 1:21 PM CDT) Narrative Casey Bearden CRNA - 04/11/2025 1:21 PM CDT Casey Bearden CRNA 04/11/2025 1:22 PM Airway Patient location: OR Urgency: elective Date/time: 04/11/2025 1:06 PM Indications for airway management: anesthesia and airway protection Difficult airway: no Staff: Placed by: VP BUSINESS DEVELOPMENT: Casey Bearden CRNA Emergent airway documentation: Risks and benefits discussed: yes Consent obtained: yes Consent given by: patient Airway prep: Preoxygenated: yes Patient position: sniffing Mask difficulty assessment: 2 - vent by mask + OA or adjuvant Sedation level during airway: GA Final airway details: Final airway type: endotracheal airway Tube type: ETT ETT size: 7.0 mm Cuffed: yes Technique used for successful ETT placement: video laryngoscopy Devices/Methods used in placement: intubating stylet Insertion site: oral Blade type: Alice Video blade type: Yadav Blade size: 3 Cormack-Lehane (video): grade I - full view of glottis Cuff volume: 6 mL Cuff inflated with: air ETT to lips: 22 cm Placement verified by: auscultation and CO2 detection Airway secured with: silk tape Number of attempts: 1 Additional comments: Atraumatic intubation. Dentition/lips/same as preop. No GERD sx today-on daily Protonix us Cameron Fox MD ANESTHESIA ORDERABLES Final Result * Potassium, whole blood (04/11/2025 10:49 AM CDT) Potassium, bld 3.7 3.3 - 4.9 mmol/L Comment: Interpretive Data This method is not able to assess for hemolysis, which may falsely increase potassium concentrations. If further testing is needed to evaluate this result, consider in-laboratory plasma potassium. Current Interpretive Data was last revised on 2022. Blood 04/11/2025 10:4 9 AM CDT 04/11/2025 10:51 AM CDT us Gregory Muller MD LAB BLOOD ORDERABLES F inal Result [facility] Department [place] [address] from Last 3 Months [facility] RE[facility]NA [facility]IC[facility] ADVANTAGE Care Teams Physical Geographer Relationship Specialty Start Date End Date Sebastien Sequeira MD PCP - General 06/04/17 Sebastien Sequeira MD 06/04/17
--- OUTSIDE RECORDS SUMMARY | 2025-05-09 11:39 | XMS_ITS | Encounter Summary ---
Author Organization [facility] Address 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
--- OUTSIDE RECORDS SUMMARY | 2025-05-09 11:39 | XMS_ITS | Patient Health Record ---
Author Organization [facility] Address [address] [place], [place] [address] Care Team Providers Care Credit Balance Specialist Name Role Phone Sebastien Sequeira Unavailable Unavailable Reason For Referral No Information Medications Medication SIG (Take, Route, Frequency, Duration) Notes Start Date End Date Status alprazolam 0.25 MG Disintegrating Oral Tablet ORAL alprazolam 0.25 MG Disintegrating Oral TabletOriginal Medicationalprazolam 0.25 MG Disintegrating Oral Tablet *Reorder from [employer] for eRx and Interaction Alerts* 6 Active acetaminophen 325 MG / hydrocodone bitartrate 5 MG Oral Tablet ORAL acetaminophen 325 MG / hydrocodone bitartrate 5 MG Oral TabletOriginal Medicationacetaminophen 325 MG / hydrocodone bitartrate 5 MG Oral Tablet *Reorder from [employer] for eRx and Interaction Alerts* 6 Active levothyroxine sodium 0.075 MG Oral Tablet ORAL levothyroxine sodium 0.075 MG Oral TabletOriginal Medicationlevothyroxine sodium 0.075 MG Oral Tablet *Reorder from [employer] for eRx and Interaction Alerts* 6 Active furosemide 20 MG Oral Tablet [Lasix] ORAL furosemide 20 MG Oral Tablet [Lasix]Original Medicationfurosemide 20 MG Oral Tablet [Lasix] *Reorder from [employer] for eRx and Interaction Alerts* 6 Active Spironolactone 100 MG Oral Tablet ORAL spironolactone 100 MG Oral TabletOriginal Medicationspironolactone 100 MG Oral Tablet *Reorder from [employer] for eRx and Interaction Alerts* 6 Active Pravastatin Sodium 40 MG Oral Tablet ORAL pravastatin sodium 40 MG Oral TabletOriginal Medicationpravastatin sodium 40 MG Oral Tablet *Reorder from [facility] for eRx and Interaction Alerts* 6 Active tramadol hydrochloride 50 MG Oral Tablet ORAL tramadol hydrochloride 50 MG Oral TabletOriginal Medicationtramadol hydrochloride 50 MG Oral Tablet *Reorder from [facility] for eRx and Interaction Alerts* 6 Active 24 HR verapamil hydrochloride 240 MG Extended Release Oral Capsule ORAL 24 HR verapamil hydrochloride 240 MG Extended Release Oral CapsuleOriginal [id number] HR verapamil hydrochloride 240 MG Extended Release Oral Capsule *[facility] Interaction Alerts* 6 Active 24 HR venlafaxine 150 MG Extended Release Oral Capsule [Effexor] ORAL 24 HR venlafaxine 150 MG Extended Release Oral Capsule [Effexor]Original [id number] HR venlafaxine 150 MG Extended Release Oral Capsule [Effexor] *Reorder from [facility] for eRx and Interaction Alerts* 6 Active nortriptyline 25 MG Oral Capsule ORAL nortriptyline 25 MG Oral CapsuleOriginal Medicationnortriptyline 25 MG Oral Capsule *Reorder from [facility] for eRx and Interaction Alerts* 6 Active clonazePAM 1 MG Oral Tablet ORAL clonazepam 1 MG Oral TabletOriginal Medicationclonazepam 1 MG Oral Tablet *Reorder from [facility] for eRx and Interaction Alerts* 6 Active ropinirole 2 MG Oral Tablet ORAL ropinirole 2 MG Oral TabletOriginal Medicationropinirole 2 MG Oral Tablet *Reorder from [facility] for eRx and Interaction Alerts* 6 Active pregabalin 200 MG Oral Capsule [Lyrica] ORAL pregabalin 200 MG Oral Capsule [Lyrica]Original Medicationpregabalin 200 MG Oral Capsule [Lyrica] *Reorder from [facility] for eRx and Interaction Alerts* 6 Active Plan Of Treatment No Information Insurance Providers Payer Name Payer Address Payer Phone Subscriber Number Group Number Insured Name Patient Relationship to Insured Coverage Start Date Coverage End Date Medicare Part B [facility] [address] [place] [phone] [id number] KEEGAN ALVES Self - patient is the insured [employer] [address] [address] [place] [address] [phone] [id number] KEEGAN ALVES Self - patient is the insured
--- OUTSIDE RECORDS SUMMARY | 2025-05-09 11:39 | XMS_ITS | Clinical Summary ---
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
--- OUTSIDE RECORDS SUMMARY | 2025-05-09 11:40 | XMS_ITS | Patient Health Record ---
Author Organization [facility] Address [address] [place] [address] Care Team Providers Care Wound Nurse Name Role Phone Sebastien Sequeira MD Primary Care Provider UnavailSade Umaña Unavailable [phone] Allergies Allergen (clinical drug ingredient) Drug/Non Drug [...] Start Date End Date Status busPIRone HCl 10 MG Tablet 2 tablet Oral Twice a day; Duration: 90 days 05/04/2025 08/02/2025 Active clonazePAM 1 MG Tablet 1 tablet Oral twice a day; Duration: 30 days As needed 05/04/2025 Active Venlafaxine HCl ER 150 MG Capsule Extended Release 24 Hour 1 capsule every motning Oral Once a day; Duration: 90 days 05/04/2025 Active Venlafaxine HCl ER 37.5 MG Capsule Extended Release 24 Hour 1 capsule with food Orally Once a day; Duration: 90 days total daily dose 187.5mg daily 05/04/2025 Active Breo Ellipta 200-25 MCG/INH Aerosol Powder Breath Activated Inhalation 12/22/2023 Unknown Pantoprazole Sodium 40 MG Tablet Delayed Release Oral 12/22/2023 Unkno wn rOPINIRole HCl 2 MG Tablet Oral 12/22/2023 Unknown Pregabalin 150 MG Capsule Oral 12/22/2023 Unknown clonazePAM 1 MG Tablet Take 1 tablet by mouth twice daily as needed; Duration: 30 01/02/2025 Active Furosemide 40 MG Tablet Oral 12/22/2023 Unknown Venlafaxine HCl ER 37.5 MG Capsule Extended Release 24 Hour TAKE 1 CAPSULE BY MOUTH ONCE DAILY WITH FOOD FOR 90 DAYS; Duration: 90 Active ProAir HFA 108 (90 Base) MCG/ACT Aerosol Solution Inhalation 12/22/2023 Unk nown Potassium Chloride [place] ER 20 MEQ Tablet Extended Release Oral 12/22/2023 Unknown Clopidogrel Bisulfate 75 MG Tablet Oral 12/22/2023 Unknown Ezetimibe 10 MG Tablet Oral 12/22/2023 Unknown Levothyroxine Sodium 112 MCG Tablet Oral 12/22/2023 Unknown Rosuvastatin Calcium 20 MG Tablet Oral 12/22/2023 Unknown Spironolactone 25 MG Tablet Oral 12/22/2023 Unknown Social History Tobacco Use: Social History Observation Description Date Details (start date - stop date) Never Smoker NA - NA Sex Assigned At : Social History Observation Description Sex Assigned At Female Social History Miscellaneous: Social Info Question Answer Notes Advance Care Planning Are you your own decision-maker Yes Do you have Power of Section Laborer for Health or [facility]? No Advance Directive FULL CODE Tobacco Use: Social Info Question Answer Notes Tobacco Control (Standard) Tobacco use: Nonsmoker Additional Details Category Social Info Options Details Migrated Social History Migrated Social History Alcohol Intake: Occasional 12/22/2023,Tobacco Years: Never smoker 11/13/2023 Problems Problem Type SNOMED Code ICD Code Onset Dates Problem Status W/U Status Risk Notes Problem Moderate recurrent major depression (67772532) Major depressive disorder, recurrent, moderate (F33.1) Active confirmed Problem Generalized anxiety disorder (F41.1) Active confirmed Problem Tremor (30726233) Tremor, unspecified (R25.1) Active confirmed Vital Signs Heart Rate 72 /min 05/04/2025 Height-cm 177.8 cm 05/04/2025 Blood pressure diastolic 93 mm Hg 05/04/2025 Weight-kg 135.17 kg 05/04/2025 Height 70.00 in 05/04/2025 Blood pressure systolic 155 mm Hg 05/04/2025 Weight 298 lbs 05/04/2025 BMI 42.75 kg/m2 05/04/2025 Encounters Encounter Location Date Provider Diagnosis [address] [address] 06/01/2024 Sadeangel Bliss Major depressive disorder, recurrent, moderate F33.1 ; Generalized anxiety disorder F41.1 and Tremor, unspecified R25.[address] [facility] [address] [place] [address] 07/11/2024 Sade Kurcameron Major depressive disorder, recurrent, moderate F33.1 ; Generalized anxiety disorder F41.1 and Tremor, unspecified R25.[address] [address] 08/29/2024 Sade Kurcameron Major depressive disorder, recurrent, moderate F33.1 ; Generalized anxiety disorder F41.1 and Tremor, unspecified R25.[address] [address] 10/10/2024 Sade Kurcameron Major depressive disorder, recurrent, moderate F33.1 ; Generalized anxiety disorder F41.1 and Tremor, unspecified R25.[address] [address] 11/22/2024 Sade Kurcameron Generalized anxiety disorder F41.1 ; Tremor, unspecified R25.1 ; Encounter for screening for cardiovascular disorders Z13.6 ; Major depressive disorder, recurrent, moderate F33.1 ; Dietary counseling and surveillance Z71.3 and Encounter for screening for depression Z13.[address] [address] 01/16/2025 Sade Kurcameron Generalized anxiety disorder F41.1 ; Major depressive disorder, recurrent, moderate F33.1 ; Tremor, unspecified R25.1 ; Dietary counseling and surveillance Z71.3 ; Encounter for screening for depression Z13.31 and Encounter for screening for cardiovascular disorders Z13.[address] [address] 03/02/2025 Sade Kurcameron Generalized anxiety disorder F41.1 ; Major depressive disorder, recurrent, moderate F33.1 ; Tremor, unspecified R25.1 ; Dietary counseling and surveillance Z71.3 ; Encounter for screening for cardiovascular disorders Z13.6 and Encounter for screening for depression Z13.31 [facility] [address] [facility] [address] [place] [address] 05/04/2025 Sadeangel Bliss Major depressive disorder, recurrent, moderate F33.1 ; Generalized anxiety disorder F41.1 and Tremor, unspecified R25.1 [place] [address] [address] 08/01/2024 Sadeangel Bliss Generalized anxiety disorder F41.1 and Major depressive disorder, recurrent, moderate F33.1 [facility] [address] [address] 12/16/2024 Sade Bliss [address] [address] 12/16/2024 Sade Bliss [place] [address] [address] 12/20/2024 Sade Bliss [place] [address] [address] 10/03/2024 Sadeangel Bliss Generalized anxiety disorder F41.1 Assessments Encounter Date Diagnosis (ICD Code) Assessment Notes Treatment Notes Treatment Clinical Notes Section Notes 06/01/2024 Major depressive disorder, recurrent, moderate (ICD-10 [...] (ICD-10 - F41.1) LAST CLONAZEPAM FILL 02/07/2025 05/04/2025 Major depressive disorder, recurrent, moderate (ICD-10 - F33.1) SSRI/SNRI side effects discussed including but not limited to, gastric upset, nausea, vomiting, diarrhea and/or constipation, weight changes, sexual side effects including loss of libido, increased suicidal thoughts/behaviors in children and young adults, and serotonin syndrome. 05/04/2025 Generalized anxiety disorder (ICD-10 - F41.1) LAST CLONAZEPAM FILL 04/08/2025 08/01/2024 Major depressive disorder, recurrent, moderate (ICD-10 - F33.1) 03/02/2025 Tremor, unspecified (ICD-10 - R25.1) Stable [...] as this combination can be lethal. 06/01/2024 Tremor, unspecified (ICD-10 - R25.1) Stable 08/29/2024 Tremor, unspecified (ICD-10 - R25.1) Stable 10/10/2024 Tremor, unspecified (ICD-10 - R25.1) Stable 11/22/2024 Major depressive disorder, recurrent, moderate (ICD-10 - F33.1) 11/22/2024 Encounter for screening for cardiovascular disorders (ICD-10 - Z13.6) 07/11/2024 Tremor, unspecified (ICD-10 - R25.1) Stable 01/16/2025 Dietary counseling and surveillance (ICD-10 - Z71.3) 05/04/2025 Tremor, unspecified (ICD-10 - R25.1) Stable 03/02/2025 Dietary counseling and surveillance (ICD-10 - [...] therapeutic effects of psychotropic medications. -Crisis prevention [facility]. 01/16/2025 Other Increase venlafaxine to 225mg [...] therapeutic effects of psychotropic medications. -Crisis prevention [facility]. 03/02/2025 Other Stable on current medication [...] therapeutic effects of psychotropic medications. -Crisis prevention [facility]. 05/04/2025 Other Decrease Buspar to 20mg BID- monitor for increased anxiety and contact office if this occurs Patient educated on all medications including potential [...] effects of psychotropic medications. -Crisis prevention hotline 038. Plan Of Treatment Next Appt Details Provider Name:Sade Henley Eduarda mitchell, 08/03/2025 11:00:00 AM, [address], [address], [place], [address], Insurance Providers Payer Name Payer Address Payer Phone Subscriber Number Group Number Insured Name Patient Relationship to Insured Coverage Start Date Coverage End Date [facility] [employer] Medicare Supplement [address] [address] [place] [address] [id number] KEEGAN ALEVS Self - patient is the insured Medical [...]
[2025-05-09 12:08] LABS: Alanine Aminotransferase 40 U/L (6-35); Albumin Level 4.3 g/dL (3.5-5.1); Alkaline Phosphatase 68 U/L (38-126); Anion Gap 7 mmol/L (4-12); Aspartate Amino Transferase 57 U/L (14-36); Bilirubin,Total 0.5 mg/dL (0.2-1.3); Blood Urea Nitrogen 11 mg/dL (7-17); Calcium 10.3 mg/dL (8.4-10.2); Carbon Dioxide 36 mmol/L (22-30); Chloride 101 mmol/L (98-107); Estimated Glomerular Filt Rate > 60; Magnesium 2.3 mg/dL (1.6-2.3); Osmolality Calculated 295 mOsm/kg (285-295); Potassium 5.0 mmol/L (3.4-5.0); Sodium 144 mmol/L (137-145); Total Protein 7.1 g/dL (6.3-8.2)
[2025-05-09 12:13] LABS: Glucose 58 mg/dL (65-110)
== END 2025-05-09 11:11 | disposition home or self-care (01) ==
LOC: CHSLAB 11:12
PROVIDERS: PCP Internal Medicine; Visit Provider Internal Medicine
DX: A04.72 Enterocolitis due to Clostridium difficile, not specified as recurrent (principal); E86.0 Dehydration; R30.0 Dysuria
CPT/HCPCS: 36415; 80053; 81001; 83735; 84100; 85027; 87086

== ENCOUNTER 2025-05-09 13:55 | Emergency (ER) | payer MEDICARE, SELFPAY ==
[2025-05-09 14:00] VITALS: BP 142/56; PULSE 73; RESP 22; TEMP 36.1; O2SAT 93
[2025-05-09 14:04] VITALS: BP 142/56; PULSE 73; RESP 20; TEMP 36.1; O2SAT 93
[2025-05-09 15:31] VITALS: BP 160/79; PULSE 72; RESP 18; O2SAT 96
--- OUTSIDE RECORDS SUMMARY | 2025-05-09 16:00 | XMS_ITS | Clinical Summary ---
Author Organization [facility] Healthcare Address [address] [place] [address] Care Team Providers Care Rivet Maker Name Role Phone Sebastien Sequeira MD Primary Care Provider [phone] Sebastien Sequeira MD Unavailable [phone] Allergies Active Allergy Reactions Criticality Noted Date Comments Adhesive Blisters High 12/22/2023 Alendronate Sodium Unknown 12/22/2023 Cefdinir Unknown 12/22/2023 Atorvastatin Rash Medium 11/02/2018 Naltrexone-Bupropion Dizziness Low 08/03/2020 Awxauxo-Ywz-Rnk Reductase Inhibitors Rash Medium 08/03/2020 Tizanidine Hypotension,Other [...] 1 tablet (112 mcg total) by mouth finishing manager before breakfast 05/22/20 23 Active magnesium oxide [...] Type Department Care Team Description 05/01/2025 Telephone [facility] Cardiology [address] [place] [address] Tammy Hernandez NP 04/18/2025 10:01 AM CDT - 04/18/2025 11:59 PM CDT Hospital Encounter [facility] [address] [place] [address] Frank Garcia MD S/P insertion of spinal cord stimulator (Primary Dx); Failed back surgical syndrome; Intractable peripheral neuropathy, bilateral lower extremities Discharge Disposition: Discharge to home or self care 04/11/2025 12:56 PM CDT Anesthesia Event [facility] Operating Room [address] [place] [address] Cameron Fox MD Reynolds, Ethan Emerson, MD 04/11/2025 12:00 PM CDT - 04/11/2025 1:30 PM CDT Surgery [facility] Operating Room [address] [place] [address] Frank Garcia MD INSERTION SPINAL CORD STIMULATOR IMPLANT 04/11/2025 10:02 AM CDT - 04/11/2025 4:57 PM CDT Hospital Encounter [facility] Operating Room [address] [place] [address] Frank Garcia MD Discharge Disposition: Discharge to home or self care 03/29/2025 Telephone [facility] 2 [facility] [address] [place] [address] Frank Garcia MD 02/09/2025 11:05 AM CDT - 02/09/2025 11:59 PM CDT Hospital Encounter [facility] 2 [facility] 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 Gender Identity Female 02/10/2023 9:38 AM CDT [...] 08/23/2016, 09/14/2010 Medical Devices Implanted Type Area Volunteer Services Coordinator Device Identifier Shelf Expiration Date Model / Serial / Lot [employer] Device Closure Vascade Od5 Fr Femoral Artery [id number] - [id number] Implanted:Qty: 1 on 06/29/2023 by Aleksander Novak MD at [facility] 2025 [id number] -[id number] / / [id number] [facility] Device Vascular Closure Femoral Artery Bioabsorbable Dual Method Vascade 6-7fr Collagen [id number] - [id number] Implanted:Qty: 1 on 06/29/2023 by Aleksander Novak MD at [facility] 12/22/2024 [id number]- [id number] / / [id number] [employer] Vascade Mvp 6-12fr Venous Closure [id number] - [id number] Implanted:Qty: 1 on 06/29/2023 by Aleksander Novak MD at [facility] 03/19/2025 [id number]- [id number] / / [id number] 12C [facility] Vascade Mvp 6-12fr Venous Closure [id number] - [id number] Implanted:Qty: 1 on 06/29/2023 by Aleksander Novak MD at [facility] 02/17/2025 [id number]- 10U / / [id number] 08C Nevro Rio Lead Neurostimulator Percutaneous Spine Trial Octrode Titanium 4rhu06cu [id number] - [id number] Implanted:Qty: 2 on 02/02/2025 by Frank Garcia MD at [facility] N/A: Back Nevro Rio 10/14/2027 [id number] / / [id number] Nevro Rio Kit Lead Neurostimulator Percutaneous Spine 3uba14bi [id number] - [id number] Implanted:Qty: 1 on 04/11/2025 by Frank Garcia MD at [facility] N/A: Back Nevro Rio 01/13/2028 [id number] [id number] / / [id number] Nevro Rio Kit Lead Neurostimulator Percutaneous Spine 4nxc17go [id number] - [id number] Implanted:Qty: 1 on 04/11/2025 by Frank Garcia MD at [facility] N/A: Back Nevro Rio 01/13/2028 [id number] [id number] / / [id number] Nevro Bsmark Kit Implant Lead [place] Neurostimulator Percutaneous Spine Swift[place] Titanium 2.3mm [id number] - [id number] Implanted:Qty: 1 on 04/11/2025 by Frank Garcia MD at [facility] N/A: Back Nevro Rio 11/13/2027 [id number] / / [id number] Nevro Bsmark Kit Hfx-Iq Implantable Pulse Generator Nevro Hfx-D 1090-C - [id number] - [id number] Implanted:Qty: 1 on 04/11/2025 by Frank Garcia MD at [facility] N/A: Back Nevro Rio 12/14/2027 1090-C / [id number] / [id number] Procedures Procedure Name Priority Date/Time Associated Diagnosis Comments XR SPINE THORACIC 2 VIEWS IP Routine 04/11/2025 2:12 PM CDT FL FLUOROSCOPY < 1 HOUR IP Routine 04/11/2025 2:12 PM CDT TN AN ELECTIVE ENDOTRACHEAL AIRWAY Routine 04/11/2025 1:21 [...] Héctor Marcus M.D. MF: AUNG Report ID: [id number] Reading Location: [id number] Procedure Note Héctor Marcus MD - 04/19/2025 [...] Héctor Marcus M.D. MF: AUNG Report ID: [id number] Reading Location: [id number] Frank Garcia MD IMG XR PROCEDURES Final Result * TN AN ELECTIVE ENDOTRACHEAL AIRWAY (04/11/2025 1:21 PM CDT) Narrative Casey Bearden CRNA - 04/11/2025 1:21 PM CDT Casey Bearden CRNA 04/11/2025 1:22 PM Airway Patient location: OR Urgency: elective Date/time: 04/11/2025 1:06 PM Indications for airway management: anesthesia and airway protection Difficult airway: no Staff: Placed by: DIRECTOR OF PSYCHIATRY: Casey Bearden CRNA Emergent airway documentation: Risks [...] BLOOD ORDERABLES F inal Result [facility] [place] [facility] Department [place] [address] from Last 3 Months Insurance MEDICARE [facility] Address: [address] [address] [place] [address] [facility] MEDICARE ADVANTAGE Care Teams Rivet Maker Relationship Specialty Start Date End Date Sebastien Sequeira MD PCP - General 06/04/17 Sebastien Sequeira MD 06/04/17
--- OUTSIDE RECORDS SUMMARY | 2025-05-09 16:00 | XMS_ITS | Encounter Summary ---
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
--- OUTSIDE RECORDS SUMMARY | 2025-05-09 16:01 | XMS_ITS | Encounter Summary ---
Author Organization [facility] Address 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
--- OUTSIDE RECORDS SUMMARY | 2025-05-09 16:01 | XMS_ITS | Clinical Summary ---
Author Organization 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
--- NOTE | 2025-05-09 16:06 | ED.GENADULT ---
HPI - General Adult General Stated complaint: N/V/D History of Present Illness HPI narrative: 75 years old white female referred to our emergency room by her family physician office because patient is not eating or drinking lately, been feeling tired and weak and having no energy. Started few days ago. Patient was diagnosed of C diff and started on vancomycin 1 week ago. His to have diarrhea up to 4 times a day, in the last 3 days diarrhea is improving maximum once a day. Patient denies any fever chills nausea vomiting or abdominal pain. Patient denies any chest pain shortness of breath lightheadedness dizziness headache or back pain. Related Data Home Medications ?Medication ?Instructions ?Recorded ?Confirmed ?Last Taken ?Type ezetimibe 10 mg tablet 10 mg PO HS 03/22/20 02/01/25 05/19/23 History furosemide 40 mg tablet 40 mg PO DAILY 03/22/20 02/01/25 05/20/23 History ropinirole 2 mg tablet 4 mg PO HS 03/22/20 02/01/25 05/19/23 History spironolactone 100 mg tablet 25 mg PO DAILY 03/22/20 02/01/25 05/20/23 History clopidogrel 75 mg tablet (Plavix) 75 mg PO DAILY 01/29/23 02/01/25 05/20/23 History pregabalin 150 mg capsule 150 mg PO TID 01/29/23 02/01/25 05/20/23 History buspirone 15 mg tablet 15 mg PO BID PRN Anxiety 03/05/23 02/01/25 Unknown History pantoprazole 40 mg tablet,delayed 40 mg PO DAILY 03/05/23 02/01/25 05/20/23 History release albuterol sulfate 90 mcg/actuation 1 inh inhalation Q4-6H PRN 11/12/23 02/01/25 Unknown History breath activated powder inhaler,sensor fluticasone furoate 200 1 inh inhalation DAILY 11/12/23 02/01/25 Unknown History mcg-vilanterol 25 mcg/dose inhalation powder (Breo Ellipta) propranolol 120 mg capsule,24 120 mg PO DAILY 01/25/24 02/01/25 Unknown History hr,extended release semaglutide 1 mg/dose (4 mg/3 mL) 2 mg subcut WEEKLY 02/01/25 02/01/25 Unknown History subcutaneous pen injector (Ozempic) venlafaxine 225 mg tablet,extended 225 mg PO DAILY 02/01/25 02/01/25 Unknown History release 24 hr Allergies Allergy/AdvReac Type Severity Reaction Status Date / Time adhesive Allergy Intermediate RASH Verified 02/01/25 10:12 alendronate sodium Allergy Mild STOMACH Verified 02/01/25 10:12 PAIN atorvastatin Allergy Unknown Unknown Verified 02/01/25 10:12 tizanidine Allergy Unknown Unknown Verified 02/01/25 10:12 cefdinir (From Omnicef) AdvReac Unknown Rash Verified 02/01/25 10:12 Review of Systems Review of Systems: All systems reviewed & are unremarkable except as noted in HPI and below PMFSH Past Medical History Medical History Atrial fibrillation Cubital tunnel syndrome, bilateral Bilateral carpal tunnel syndrome Obstructive sleep apnea syndrome in adult Fibromyalgia Numbness in both hands Peripheral neuropathy Diastolic dysfunction On echocardiogram in April 2021. Morbid obesity Mitral valve prolapse Primary stress urinary incontinence Hypothyroidism Hypertension Degenerative joint disease Cerebrovascular accident Depression Restless leg syndrome Functional bowel disorder Migraine Surgical History Surgical History S/P foot surgery, right H/O spinal fusion History of shoulder surgery History of bilateral knee arthroplasty (2007) History of hysterectomy (1996) Family History Family History Mother Breast cancer Father Chronic obstructive pulmonary disease Sibling Breast cancer Multiple sclerosis Dementia Sibling Lung cancer Social History Social History Social History: Surrogate medical decision maker: Hayden Lian, spouse. Code status: Full code. Smoking status: Never smoker Second hand tobacco smoke exposure: No Alcohol intake: former Drinks per week: 0 Substance use: never Substance use type: prescription drug Do You Feel Safe in your Home?: Yes Lack of Transportation: No Lack of Food: Sometimes True Current Housing: I Have Housing Concerned About Future Housing: No Difficulty Paying Gas/Electric Bills: No Difficulty Paying for Meds: No Currently Unemployed: No Education: High School Diploma/GED Difficulty w/ Childcare or Family Care: No Additional living arrangements comments: Lives with in [place]. 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 Musculoskeletal: Normal range of motion, nontender back Neurologic: Alert and oriented ?3, PRECISION LENS GENERATOR is normal as tested, no gross motor deficit Medical Decision Making MDM Narrative Medical decision making narrative: Patient came to the emergency room not feeling well, not eating or drinking enough and no energy in the last few days. Vital signs: Blood pressure 142/56, respiratory rate 22 otherwise within normal limit Physical examination showing depressed, weak looking patient, otherwise within normal limit Differential diagnosis include dehydration, electrolyte imbalance, depression, side effect of C diff disease and antibiotic intake. Blood workup today includes CBC, CMP, lipase showed hemoglobin of 14.8 likely secondary to dehydration, AST 61, ALT 38 otherwise within normal limit. Urinalysis showed 2+ leukocyte Estrace, WBC 7-9, 1+ bacteria, urinary tract infection is suspected. Patient received fosfomycin in the ED prior to discharge. Diagnosis general weakness, urinary tract infection, currently on antibiotic for C diff. The pt was discharged to home.the pt,s condition upon discharge was fair,education was provided to the pt in reference to the final impression,discharge study results,treatment,prognosis and need for follow up . Differential Diagnosis Differential Diagnosis: As above Critical Care Time Critical Care Time Critical Care Time: No Discharge Plan Discharge Clinical Impression: Weakness, Urinary tract infection Patient Disposition: Home Condition: Improved Instructions: Urinary Tract Infection in Women (DC), Weakness (ED) Additional Instructions: Return if symptoms are worsening , call your family physician for appointment, take Tylenol as as needed for aches and pain, continue home medications. Encourage fluid intake Patient Language: Nauruan Prescriptions: No Action furosemide 40 mg tablet 40 mg PO DAILY Patient Comments: thursday, , thursday spironolactone 100 mg tablet 25 mg PO DAILY ropinirole 2 mg tablet 4 mg PO HS ezetimibe 10 mg tablet 10 mg PO HS albuterol sulfate 90 mcg/actuation aero powdr breath act w/sensor 1 inh inhalation Q4-6H PRN fluticasone furoate-vilanterol [Breo Ellipta] 200-25 mcg/dose blister with device 1 inh inhalation DAILY Ozempic 1 mg/dose (4 mg/3 mL) pen injector 2 mg subcut WEEKLY clonazepam [Klonopin] 1 mg tablet 1 mg PO BID Qty: 60 0RF venlafaxine 225 mg tablet extended release 24hr 225 mg PO DAILY mirtazapine [Remeron] 15 mg tablet 15 mg PO QHS Qty: 90 3RF Rx Instructions: may increase to 2 tablets at bedtime propranolol 120 mg capsule,extended release 24hr 120 mg PO DAILY clopidogrel [Plavix] 75 mg Tablet 75 mg PO DAILY pregabalin 150 mg capsule 150 mg PO TID pantoprazole 40 mg tablet,delayed release (DR/EC) 40 mg PO DAILY buspirone 15 mg tablet 15 mg PO BID PRN (Reason: Anxiety) levothyroxine 112 mcg capsule 112.5 mcg PO DAILY Qty: 30 0RF Rx Instructions: Take levothyroxine 112.5 mcg capsule PO daily for hypothyroidism. Follow-up/Referrals: Sebastien Sequeira MD [Primary Care Provider, Internal Medicine]
--- NOTE | 2025-05-11 13:15 | PC.NURSE ---
final urine culture reviewed. <10,000 bacteria colony, clinically insignificant. no change in plan of care.
== END 2025-05-09 16:15 | disposition home or self-care (01) ==
PROVIDERS: Emergency Provider Emergency Medicine; PCP Internal Medicine
DX: N39.0 Urinary tract infection, site not specified (principal); R53.1 Weakness; I48.91 Unspecified atrial fibrillation; E03.9 Hypothyroidism, unspecified; I10 Essential (primary) hypertension
CPT/HCPCS: 99281

== ENCOUNTER 2025-06-15 15:58 | Inpatient (IN) | payer MEDICARE, SELFPAY ==
[2025-06-15] VITALS (16 sets, daily range): BP systolic 97–126; BP diastolic 49–77; PULSE 67–82; RESP 17–75; TEMP 36.7; O2SAT 87–97; BMI 42.5
--- NOTE | ~2025-06-15 | CT_ITS ---
EXAMINATION: CTA chest PE protocol DATE: 06/15/2025 18:52 INDICATION: Shortness of breath. TECHNIQUE: Computed tomography angiography (CTA) of the chest was performed with 100 mL Omnipaque-350 intravenous contrast timed to evaluate the pulmonary arteries. Coronal maximum intensity projection 3D-reconstructions were created by the technologist. Automated exposure control and iterative reconstruction technique were employed. The dose-length product was 795.57 mGy-cm. COMPARISON: Chest CT 05/21/23 FINDINGS: The lungs demonstrate mild atelectasis. There is septal thickening in the lungs, consistent with mild pulmonary edema. There is a stable 5 mm nodule in left lower lobe, likely benign. There is a 3 mm nodule in left upper lobe, likely benign. No pleural effusion. There is left atrial enlargement of the heart. There are coronary artery calcifications. No pericardial effusion. The central pulmonary arteries are enlarged, consistent with pulmonary arterial hypertension. There is no pulmonary embolus. There are cysts in left kidney measuring up to 5.1 cm. There are bilateral shoulder arthroplasties. Epidural electrodes are noted. There is severe cervical spondylosis and moderate thoracic spondylosis. There is a chronic compression fracture of T12. There is a hemangioma in T12. IMPRESSION: 1. No pulmonary embolus. 2. Mild pulmonary edema. Reviewed, dictated and finalized at location E.
--- NOTE | ~2025-06-15 | MR_ITS ---
EXAMINATION: MR brain/brain stem wo con DATE: 06/17/2025 14:16 INDICATION: Dizziness. Confusion. TECHNIQUE: Magnetic resonance imaging (MRI) of the brain and brainstem was performed without intravenous contrast. COMPARISON: Brain MRI 05/23/2023, head CT 06/15/2025 FINDINGS: There are small old infarcts in the cerebellum bilaterally. There are scattered areas of nonspecific increased T2-weighted signal intensity in the cerebral white matter, which is within normal limits for the patient's age. There is no intracranial hemorrhage, acute infarction, or abnormal intracranial mass lesion. The ventricles are normal in size. The orbits are normal. There is mild mucosal thickening in the paranasal sinuses. There are small bilateral mastoid effusions. IMPRESSION: 1. Small old infarcts in the cerebellum. Reviewed, dictated and finalized at location E.
--- NOTE | ~2025-06-15 | XR_ITS ---
Examination: XR chest 1V portable Clinical History: Shortness of breath Comparison: 05/21/2023 Technique: Portable AP Findings: Heart size upper limit of normal. Mildly increased interstitial markings left lung. No acute bony abnormality. IMPRESSION: 1. Left lung unilateral interstitial pulmonary edema and/or pneumonitis. Reviewed, dictated and finalized at location R.
--- NOTE | ~2025-06-15 | XR_ITS ---
EXAMINATION: XR chest 2V, 06/17/2025 14:07 CDT HISTORY: f/u pulmonary edema COMPARISON: No comparisons available. Technique: 2 views obtained. Findings: Mild pulmonary venous congestion. Small basilar infiltrates and effusions. No pneumothorax. Mild cardiomegaly. Mediastinal and hilar contours are within normal limits. Bony thorax no acute abnormality. Spinal canal catheter. Impression: Mild CHF Reviewed, dictated and finalized at location P. Impression: Mild CHF
--- NOTE | ~2025-06-15 | CT_ITS ---
EXAMINATION: CT brain wo [place], 06/15/2025 16:45 CDT HISTORY: headache COMPARISON: No comparisons available. Technique: Axial images obtained of the brain without contrast. One or more of the following dose reduction techniques were used: automated exposure control, adjustment of the mA and/or kV according to patient size, use of iterative reconstruction technique. Findings: No acute infarct or parenchymal hemorrhage. No abnormal mass or mass effect. No midline shift. No extra-axial fluid collections. No hydrocephalus. Mastoid air cells unremarkable. Sinuses and orbits unremarkable. No acute fracture. No significant facial or scalp soft tissue swelling evident. No radiopaque foreign body is seen. Impression: 1.No acute intracranial abnormality. Reviewed, dictated and finalized at location P. Impression: 1.No acute intracranial abnormality.
--- OUTSIDE RECORDS SUMMARY | 2025-06-15 16:01 | XMS_ITS | Encounter Summary ---
Author Organization [facility] Healthcare Address [address] [place] [address] Care Team Providers Care President College [employer] Name Role Phone Sebastien Sequeira MD Primary Care Provider [phone] Sebastien Sequeira MD Unavailable [phone] Encounter Details Date Type Department Care Team (Late st Contact Info) Description 03/05/2023 Orders Only [facility] [address] [place] [address] Scanning, Provider Social History Tobacco Use Types Packs/Day Years Used Date Smoking Tobacco: Never Smokeless Tobacco: Never AUDIT-C Answer Date Recorded Q1: How often [...] feel afraid or unsafe? 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 Monthly or less 04/11/2025 10:34 AM CDT Lisette Goldstein RN Q2: How many drinks containing alcohol do you have on a typical day when you are drinking? 1 or 2 04/11/2025 10:34 AM CDT Lisette Goldstein RN Q3: How often do you have six or more drinks on one occasion? Never 04/04/2025 12:06 PM CDT Debbi Carvalho RN documented as of this encounter Plan of Treatment Not on file documented as of this encounter Procedures Procedure Name Priority Date/Time Associated Diagnosis Comments CARDIOLOGY DOCUMENT SCAN 03/05/2023 documented in this encounter Results * Cardiology Document Scan (03/05/2023) Anatomical Region Laterality Modality Other us Provider Scanning CV CARDIAC SERVICES PROCEDURES Final Result documented in this encounter Visit Diagnoses Not on filedocumented in this encounter Care Teams President [employer] Relationship Specialty Start Date End Date Sebastien Sequeira MD PCP - General 06/04/17 Sebastien Sequeira MD 06/04/17 documented as of this encounter
--- OUTSIDE RECORDS SUMMARY | 2025-06-15 16:01 | XMS_ITS | Patient Health Record ---
Author Organization [facility] Address [address] [place], [place] [id number] Care Team Providers Care Associate Trainer Name Role Phone Sebastien Sequeira Unavailable Unavailable Reason For Referral No Information Medications Medication SIG (Take, Route, Frequency, Duration) Notes Start Date End Date Status alprazolam 0.25 MG Disintegrating Oral Tablet ORAL alprazolam 0.25 MG Disintegrating Oral TabletOriginal Medicationalprazolam 0.25 MG Disintegrating Oral Tablet *Reorder from [employer] for eRx and Interaction Alerts* 6 Active acetaminophen 325 MG / hydrocodone bitartrate 5 MG Oral Tablet ORAL acetaminophen 325 MG / hydrocodone bitartrate 5 MG Oral TabletOriginal Medicationacetaminophen 325 MG / hydrocodone bitartrate 5 MG Oral Tablet *Reorder from [employer] for eRx and Interaction Alerts* 6 Active levothyroxine sodium 0.075 MG Oral Tablet ORAL levothyroxine sodium 0.075 MG Oral TabletOriginal Medicationlevothyroxine sodium 0.075 MG Oral Tablet *Reorder from [employer] for eRx and Interaction Alerts* 6 Active furosemide 20 MG Oral Tablet [Lasix] ORAL furosemide 20 MG Oral Tablet [Lasix]Original Medicationfurosemide 20 MG Oral Tablet [Lasix] *Reorder from [employer] for eRx and Interaction Alerts* 6 Active Spironolactone 100 MG Oral Tablet ORAL spironolactone 100 MG Oral TabletOriginal Medicationspironolactone 100 MG Oral Tablet *Reorder from [employer] for eRx and Interaction Alerts* 6 Active Pravastatin Sodium 40 MG Oral Tablet ORAL pravastatin sodium 40 MG Oral TabletOriginal Medicationpravastatin sodium 40 MG Oral Tablet *Reorder from [facility] for eRx and Interaction Alerts* 6 Active tramadol hydrochloride 50 MG Oral Tablet ORAL tramadol hydrochloride 50 MG Oral TabletOriginal Medicationtramadol hydrochloride 50 MG Oral Tablet *Reorder from [facility] for eRx and Interaction Alerts* 6 Active 24 HR verapamil hydrochloride 240 MG Extended Release Oral Capsule ORAL 24 HR verapamil hydrochloride 240 MG Extended Release Oral CapsuleOriginal [id number] HR verapamil hydrochloride 240 MG Extended Release Oral Capsule [facility] Interaction Alerts* 6 Active 24 HR venlafaxine 150 MG Extended Release Oral Capsule [Effexor] ORAL 24 HR venlafaxine 150 MG Extended Release Oral Capsule [Effexor]Original [id number] HR venlafaxine 150 MG Extended Release Oral Capsule [Effexor] *Reorder from [facility] for eRx and Interaction Alerts* 6 Active nortriptyline 25 MG Oral Capsule ORAL nortriptyline 25 MG Oral CapsuleOriginal Medicationnortriptyline 25 MG Oral Capsule *Reorder from [facility] for eRx and Interaction Alerts* 6 Active clonazePAM 1 MG Oral Tablet ORAL clonazepam 1 MG Oral TabletOriginal Medicationclonazepam 1 MG Oral Tablet *Reorder from [facility] for eRx and Interaction Alerts* 6 Active ropinirole 2 MG Oral Tablet ORAL ropinirole 2 MG Oral TabletOriginal Medicationropinirole 2 MG Oral Tablet *Reorder from [facility] for eRx and Interaction Alerts* 6 Active pregabalin 200 MG Oral Capsule [Lyrica] ORAL pregabalin 200 MG Oral Capsule [Lyrica]Original Medicationpregabalin 200 MG Oral Capsule [Lyrica] *Reorder from [facility] for eRx and Interaction Alerts* 6 Active Plan Of Treatment No Information Insurance Providers Payer Name Payer Address Payer Phone Subscriber Number Group Number Insured Name Patient Relationship to Insured Coverage Start Date Coverage End Date Medicare Part B [facility] [address] [place] [phone] [id number] KEEGAN ALVES Self - patient is the insured [employer] [address] [address] [place] [address] [phone] [id number] KEEGAN ALVES Self - patient is the insured
--- OUTSIDE RECORDS SUMMARY | 2025-06-15 16:01 | XMS_ITS | Clinical Summary ---
Author Organization [facility] Healthcare Address [address] [place] [address] Care Team Providers Care Sample Display Preparer Name Role Phone Sebastien Sequeira MD Primary Care Provider [phone] Sebastien Sequeira MD Unavailable [phone] Allergies Active Allergy Reactions Criticality Noted Date Comments Adhesive Blisters High 12/22/2023 Alendronate Sodium Unknown 12/22/2023 Cefdinir Unknown 12/22/2023 Atorvastatin Rash Medium 11/02/2018 Naltrexone-Bupropion Dizziness Low 08/03/2020 Lybsigg-Gju-Aud Reductase Inhibitors Rash Medium 08/03/2020 Tizanidine Hypotension,Other (S ee comments) High 11/02/2018 hypotension Topiramate Other (See comments),Nausea And Vomiting,Unknown Medium 12/10/2023 Medications pregabalin (LYRICA) 150 mg capsule 3 (three) times a day Active meclizine (ANTIVERT) 25 mg tablet PT TAKING PRN 02/16/20 18 Active rOPINIRole (REQUIP) 2 mg tablet 04/10/20 18 Active clopidogreL (PLAVIX) 75 mg tabletIndications:C erebral Thromboembolism Prevention Take 1 tablet (75 mg [...] 1 tablet (112 mcg total) by mouth 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 05/22/20 23 Active magnesium oxide [...] daily 90 tablet 3 07/29/20 24 Active Additional Information Patient not taking.Reported on 06/12/2025 propranolol LA (INDERAL LA) 120 mg 24 hr capsuleIndications: PSVT (paroxysmal supraventricular tachycardia) Take 1 capsule (120 [...] total) by mouth nightly 08/29/20 24 Active spironolactone (ALDACTONE) 25 mg tablet Take 1 tablet (25 mg total) by mouth daily 90 tablet 3 05/01/20 25 Active red beet 500 mg capsule Take 2 tablet/capsule by mouth daily Active ibuprofen 200 mg tab/cap Take 4 tablet/capsule (800 mg total) by mouth every 6 (six) hours as needed for pain 025 Discontin ued(Thera py completed ) HYDROcodone-acetami nophen (NORCO) 5-325 mg per tabletIndications:P ain Take 1 tablet by mouth every 6 (six) hours as needed for pain (postop pain) 12 tablet 04/11/20 25 025 Discontin ued(No longer taking - Do not display on AVS) Active Problems Problem Noted Date Diagnosed Date S/P insertion of spinal cord stimulator 04/18/20 Overview (04/18/2025): Sherly, MRI conditional to 1.5 [...] Encounters Date Type Department Care Team Description 06/12/2025 3:00 PM CDT Office Visit [facility] Cardiology [address] [place] [address] Tammy Hernandez NP PSVT (paroxysmal supraventricular tachycardia) (Primary Dx); Chronic heart failure with preserved ejection fraction; Hypertension, unspecified type; Hyperlipidemia, unspecified hyperlipidemia type; History of CVA (cerebrovascular accident) 06/12/2025 Orders Only [facility] Cardiology [address] [place] [address] ProviderBridgette MD 05/01/2025 Telephone [facility] Cardiology [address] [place] [address] Tammy Hernandez NP 04/18/2025 10:01 AM CDT - 04/18/2025 11:59 PM CDT Hospital Encounter [facility] [address] [facility] [address] [place] [address] Frank Garcia MD S/P insertion of spinal cord stimulator (Primary Dx); Failed back surgical syndrome; Intractable peripheral neuropathy, bilateral lower extremities Discharge Disposition: Discharge to home or self care 04/11/2025 12:56 PM CDT Anesthesia Event [facility] Operating [facility] [address] [place] [address] Cameron Fox MD Reynolds, Ethan Emerson, MD 04/11/2025 12:00 PM CDT - 04/11/2025 1:30 PM CDT Surgery [facility] [address] [place] [address] Frank Garcia MD INSERTION SPINAL CORD STIMULATOR IMPLANT 04/11/2025 10:02 AM CDT - 04/11/2025 4:57 PM CDT Hospital Encounter [facility] [address] [place] [address] Frank Garcia MD Discharge Disposition: Discharge to home or self care 03/29/2025 Telephone [facility] [address] [facility] [address] [place] [address] Frank Garcia MD from Last 3 Months Surgical History Surgery Date Site/Laterality Comments NM ARTHROPLASTY KNEE TIBIAL PLATEAU Knee Replacement - (Added by Conv) FOOT SURGERY Foot Surgery - (Added by ) ROTATOR CUFF REPAIR Rotator Cuff Repair - (Added by ) NM TOTAL ABDOMINAL HYSTERECT W/WO RMVL TUBE OVARY Hysterectomy - (Added by Conv) NM TENDON SHEATH INCISION Hand Incision Tendon Sheath [...] history of migraine headaches - (Added by ) Depression Sister 2 JAT Family history of depression - (Added by ) Multiple sclerosis Sister 3 Family hi story of multiple sclerosis - (Added by ) Relation Name Status Comments Brother Father Mother [...] on file 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 Gender Identity Female 02/10/2023 9:38 AM CDT Sexual Orientation Straight 02/10/2023 9: 38 AM CDT Obstetrics History Last Filed Vital Signs Vital Sign Reading Time Taken Comments Blood Pressure 100/60 06/12/2025 2:37 PM CDT Pulse 69 06/12/2025 2:37 PM CDT Temperature 35.9 C (96.7 F) 04/11/2025 4:30 PM CDT Respiratory Rate 18 04/18/2025 10:3 5 AM CDT Oxygen Saturation 90% 06/12/2025 2:37 PM CDT Inhaled Oxygen Concentration - - Weight 132.3 kg (291 lb 10.7 oz) 2024 10:36 AM CDT Height 175.3 cm (5' 9) 06/12/2025 2:37 PM CDT Body Mass Index 41.85 04/11/2025 10:36 AM CDT Plan of Treatment Health Maintenance Due Date Last Done Comments Breast Cancer Screening-Mammogram 1950 Colon Cancer Screening-Colonoscopy 1950 Hepatitis C Screening 1950 Osteoporosis Screening-Bone Density Scan 1950 DTaP/Tdap/Td Vaccine (1 - Tdap) 1962 Hepatitis B Screening 1969 Well Visit 65+ 2016 Influenza Vaccine (#1) 2025 , 07/16/2019, 06/25/2018, Additional history exists Depression Screening 12/16/2025 12/16/2024, 12/17/19 25 Fall Risk Assessment 03/29/2026 03/29/2025, 06/30/20 23 Pneumococcal vaccine 65+ Completed 018, 08/23/2016, 09/14/2010 Zoster Vaccine Completed 04/01/2023, 11/12, 08/22/2015 Medical Devices Implanted Type Area Stretcher And Drier Device Identifier Shelf Expiration Date Model / Serial / Lot [employer] Device Closure Vascade Od5 Fr Femoral Artery [id number] - [id number] Implanted:Qty: 1 on 06/29/2023 by Aleksander Novak MD at [facility] [employer] [facility] 2025 [id number] / / [id number] [employer] Device Vascular Closure Femoral Artery Bioabsorbable Dual Method Vascade 6-7fr Collagen [id number] - [id number] Implanted:Qty: 1 on 06/29/2023 by Aleksander Novak MD at [facility] 12/22/2024 [id number] 05U / / [id number] 12A [employer] Vascade Mvp 6-12fr Venous Closure [id number] - [id number] Implanted:Qty: 1 on 06/29/2023 by Aleksander Novak MD at [facility] 03/19/2025 [id number] [id number] / / [id number] 12C [employer] Vascade Mvp 6-12fr Venous Closure [id number] - [id number] Implanted:Qty: 1 on 06/29/2023 by Aleksander Novak MD at [facility] 02/17/2025 [id number]- [id number] / / [id number] 08C Nevro Rio Lead Neurostimulator Percutaneous Spine Trial Octrode Titanium 4tcx74tv [id number] - [id number] Implanted:Qty: 2 on 02/02/2025 by Frank Garcia MD at [facility] N/A: Back Nevro Rio 10/14/2027 [id number] / / [id number] Nevro Rio Kit Lead Neurostimulator Percutaneous Spine 2eha51st [id number] - [id number] Implanted:Qty: 1 on 04/11/2025 by Frank Garcia MD at [facility] N/A: Back Nevro Rio 01/13/2028 [id number] / / [id number] Nevro Rio Kit Lead Neurostimulator Percutaneous Spine 4smb22pa [id number] - [id number] Implanted:Qty: 1 on 04/11/2025 by Frank Garcia MD at [facility] N/A: Back Nevro Rio 01/13/2028 [id number] / / [id number] Nevro SpectraRep Kit Implant Lead [place] Neurostimulator Percutaneous Spine [place] Titanium 2.3mm [id number] - [id number] Implanted:Qty: 1 on 04/11/2025 by Frank Garcia MD at [facility] N/A: Back Nevro Rio 11/13/2027 [id number] / / [id number] Nevro Rio Kit Hfx-Iq Implantable Pulse Generator Nevro Hfx-D 1090-C - [id number] - [id number] Implanted:Qty: 1 on 04/11/2025 by Frank Garcia MD at [facility] N/A: Back Nevro Rio 12/14/2027 1090-[id number] / [id number] / [id number] Procedures Procedure Name Priority Date/Time Associated Diagnosis Comments XR SPINE THORACIC 2 VIEWS IP Routine 04/11/2025 2:12 PM CDT FL FLUOROSCOPY < 1 HOUR IP Routine 04/11/2025 2:12 PM CDT NM AN ELECTIVE ENDOTRACHEAL AIRWAY Routine 04/11/2025 1:21 [...] Héctor Marcus M.D. MF: AUNG Report ID: [id number] Reading Location: [id number] Procedure Note Héctor Marcus MD - 04/19/2025 [...] Héctor Marcus M.D. MF: AUNG Report ID: [id number] Reading Location: [id number] Frank Garcia MD IMG XR PROCEDURES Final Result * NM AN ELECTIVE ENDOTRACHEAL AIRWAY (04/11/2025 1:21 PM CDT) Narrative Casey Bearden CRNA - 04/11/2025 1:21 PM CDT Casey Bearden CRNA 04/11/2025 1:22 PM Airway Patient location: OR Urgency: elective Date/time: 04/11/2025 1:06 PM Indications for airway management: anesthesia and airway protection Difficult airway: no Staff: Placed by: PACKAGING LINE ATTENDANT: Casey Bearden CRNA Emergent airway documentation: Risks [...] MD LAB BLOOD ORDERABLES F inal Result [facility]) [facility] [place] [address] from Last 3 Months Insurance MEDICARE [facility] Address: [address] [address] Care Teams Sample Display Preparer Relationship Specialty Start Date End Date Sebastien Sequeira MD PCP - General 06/04/17 Sebastien Sequeira MD 06/04/17
--- OUTSIDE RECORDS SUMMARY | 2025-06-15 16:01 | XMS_ITS | Clinical Summary ---
Author Organization [facility] Address [address] [place] [address] Care Team Providers Care Resume Writer Name Role Phone Sebastien Sequeira MD Primary Care Provider [phone] Allergies Active Allergy Reactions Criticality Noted Date [...] drink = 0.6 oz pur e alcohol) [facility] Utilities Answer Date Recorded In the [...] any time in the past 12 m [facility], were you homeless or living in a senior living (including now)? No 03/31/2024 Comments No Sex and Gender Information Value Date Recorded Sex Assigned at Not on file Legal Sex Female 2:03 AM CDT Gender Identity Not on file Sexual Orientation Not on file Last Filed Vital Signs Vital Sign Reading Time Taken Comments Blood Pressure 129/73 09/01/2024 10:26 AM AIRCRAFT LOG CLERK Pulse 77 09/01/2024 10:26 AM AIRCRAFT LOG CLERK Temperature 36 C (96.8 F) 09/01/2024 10:26 AM AIRCRAFT LOG CLERK Respiratory Rate 18 09/01/2024 10:26 AM AIRCRAFT LOG CLERK Oxygen Saturation 95% 09/01/2024 10:26 AM AIRCRAFT LOG CLERK Inhaled Oxygen Concentration - - Weight 131.5 kg (290 lb) 09/01/2024 7:05 AM AIRCRAFT LOG CLERK Height 172.7 cm (5' 8) 09/01/2024 7:05 AM AIRCRAFT LOG CLERK Body Mass Index 44.09 09/01/2024 7:05 AM AIRCRAFT LOG CLERK Plan of Treatment Health Maintenance Due Date Last Done Comments Colorectal Cancer Screening Colonoscopy (10 Years) 1950 Hepatitis C 1969 DTaP, Tdap and Td Vaccines ( 1 - Tdap) 1970 Mammogram Screening 1991 RSV Immunization or 60+ Years (1 - Risk 60-74 years 1-dose series) 2011 Zoster Vaccines (2 of 3) 10/17/2015 08/22/2015 Dexa Scan (General) 2016 Pneumococcal Vaccine: 50+ Years (2 of 2 - PPSV23) 08/23/2017 08/23/2016 COVID-19 Vaccine (3 - 2024-2 6 season) 2025 11/23/2020, 11/02/2020 Influenza Adult (#1) 2025 06/23/2020, 1950 Meningococcal B Vaccine Aged Out [...] on safety. Medical Devices Implanted Type Area Spreader Operator Device Identifier Shelf Expiration Date Model / Serial / Lot Cement Bone 03/07 Fast Set Depuy - [id number] Implanted:Qty: 1 on 03/31/2024 by Cameron Avery MD at [facility] Cement Implant Left: Shoulder DEPUY 07/14/2025 [id number] / / Cup Hip Acetabular Depuy 52mm - [id number] Implanted:Qty: 1 on 08/13/2020 by Gustavo So MD at [facility] Hip Components Left: Hip DEPUY 11/11/2029 [id number] / / [id number] Stem Hip Depuy Tapered - [id number] Implanted:Qty: 1 on 08/13/2020 by Gustavo So MD at [facility] Hip Components Left: Hip DEPUY 01/11/2030 [id number] / / [id number] Head Depuy Femoral Articuleze 36mm +8.5 - [id number] Implanted:Qty: 1 on 08/13/2020 by Gustavo So MD at [facility] Hip Components Left: Hip DEPUY 07/14/2024 [id number] / / [id number] Liner Depuy Acet Altrx +4 10d 36 X 52 - [id number] Implanted:Qty: 1 on 11/19/2020 by Gustavo So MD at [facility] Hip Components Right: Hip DEPUY [id number] 07/14/2025 [id number] / / [id number] Stem Hip Depuy Tapered - [id number] Implanted:Qty: 1 on 11/19/2020 by Gustavo So MD at [facility] Hip Components Right: Hip DEPUY [id number] 06/13/2030 [id number] / / [id number] Stem Humeral 120mm 12mm Modular Global Unite Porocoat Standard Shoulder Sterile Platform Arthroplasty System - [id number] Implanted:Qty: 1 on 06/24/2021 by Gustavo So MD at [facility] Humeral Right: Shoulder DEPUY [id number] 02/11/2031 [id number] / / [id number] Cup Humeral Standard Delta Xtend Depuy - [id number] Implanted:Qty: 1 on 06/24/2021 by Gustavo So MD at [facility] Humeral Right: Shoulder DEPUY [id number] 03/13/2026 [id number] / / [id number] Spacer Humeral Depuy 9mm - [id number] Implanted:Qty: 1 on 06/24/2021 by Gustavo So MD at [facility] Humeral Right: Shoulder DEPUY [id number] 10/14/2024 [id number] / / [id number] Screw Depuy Cancellous Bone 6.5mm X 30mm - [id number] Implanted:Qty: 1 on 11/19/2020 by Gustavo So MD at [facility] Screw Right: Hip DEPUY [id number] 08/13/2030 [id number] / / [id number] Screw Locking Depuy Delta Xtend Lg 30mm - [id number] Implanted:Qty: 1 on 06/24/2021 by Gustavo So MD at [facility] Screw Right: Shoulder DEPUY [id number] 02/11/2026 [id number] / / [id number] Screw Locking Depuy Delta Xtend Lg 36mm - [id number] Implanted:Qty: 1 on 06/24/2021 by Gustavo So MD at [facility] Screw Right: Shoulder DEPUY [id number] 01/11/2026 [id number] / / [id number] Screw Locking Depuy Delta Xtend Lg 30mm - [id number] Implanted:Qty: 1 on 06/24/2021 by Gustavo So MD at [facility] Screw Right: Shoulder DEPUY [id number] 12/12/2025 [id number] / / [id number] Screw Non Locking Depuy Delta Xtend Lg 18mm - [id number] Implanted:Qty: 1 on 06/24/2021 by Gustavo So MD at [facility] Screw Right: Shoulder DEPUY [id number] 03/13/2026 [id number] / / [id number] Screw Compression /Locking Cap Kit Exactech 4.5 X 38mm - [id number] Implanted:Qty: 1 on 03/31/2024 by Cameron Avery MD at [facility] Screw Left: Shoulder EXACTECH 10/12/2028 320-20-38 / / Screw Reverse Torque Defing Exactech - [id number] Implanted:Qty: 1 on 03/31/2024 by Cameron Avery MD at [facility] Screw Left: Shoulder EXACTECH 01/24/2029 320-20-00 / / Screw Compression /Locking Cap Kit Exactech 4.5 X 22mm - [id number] Implanted:Qty: 1 on 03/31/2024 by Cameron Avery MD at [facility] Screw Left: Shoulder EXACTECH 10/31/2028 320-20-22 / / Screw Compression /Locking Cap Kit Exactech 4.5 X 38mm - [id number] Implanted:Qty: 1 on 03/31/2024 by Cameron Avery MD at [facility] Screw Left: Shoulder EXACTECH 11/01/2028 320-20-38 / / Screw Locking Glenosphere Exactech - [id number] Implanted:Qty: 1 on 03/31/2024 by Cameron Avery MD at [facility] Screw Left: Shoulder EXACTECH 11/24/2028 320-15-05 / / Screw Compression /Locking Cap Kit Exactech 4.5 X 30mm - [id number] Implanted:Qty: 1 on 03/31/2024 by Cameron Avery MD at [facility] Screw Left: Shoulder EXACTECH 10/05/2028 320-20-30 / / Metaglene Depuy Delta Xtend - [id number] Implanted:Qty: 1 on 06/24/2021 by Gustavo So MD at [facility] Shoulder Components Right: Shoulder DEPUY [id number] 03/13/2026 [id number] / / [id number] Epiphysis Delta Xtend Depuy Size 1 Right - [id number] Implanted:Qty: 1 on 06/24/2021 by Gustavo So MD at [facility] Shoulder Components Right: Shoulder DEPUY [id number] 05/14/2025 [id number] / / [id number] Liner Depuy Acet Altrx +4 10d 36 X 52 - [id number] Implanted:Qty: 1 on 08/13/2020 by Gustavo So MD at [facility] Left: Hip DEPUY 02/11/2023 [id number] / / [id number] Hip Acetabular Depuy 52mm - [id number] Implanted:Qty: 1 on 11/19/2020 by Gustavo So MD at [facility] Right: Hip DEPUY [id number] 09/13/2030 [id number] / / [id number] M-Spec Metal Femoral Head Implanted:Qty: 1 on 11/19/2020 by Gustavo So MD at [facility] Right: Hip DEPUY [employer] 09/13/2025 [id number] / / [id number] Delta Xtend Lateralized Glenosphere +2mm 38 Standard Implanted:Qty: 1 on 06/24/2021 by Gustavo So MD at [facility] Right: Shoulder [id number] 04/13/2026 [id number] / / [id number] Glenoid Baseplate Implanted:Qty: 1 on 03/31/2024 by Cameron Avery MD at [facility] Left: Shoulder EXACTECH 06/03/2033 320-35-02 / / Reverse Glenosphere Implanted:Qty: 1 on 03/31/2024 by Cameron Avery MD at [facility] Left: Shoulder EXACTECH 11/19/2033 320-31-40 / / 3.2 Drill Bit Implanted:Qty: 1 on 03/31/2024 by Cameron Avery MD at [facility] Left: Shoulder EXACTECH 02/19/2033 321-52-07 / / Humeral Adapter Tray Implanted:Qty: 1 on 03/31/2024 by Cameron Avery MD at [facility] Left: Shoulder EXACTECH 01/04/2034 322-10-00 / / Humeral Stem Implanted:Qty: 1 on 03/31/2024 by Cameron Avery MD at [facility] Left: Shoulder EXACTECH 12/28/2033 300-01-00 / / 40mm Humeral Liner Implanted:Qty: 1 on 03/31/2024 by Cameron Avery MD at [facility] Left: Shoulder EXACTECH 12/13/2028 322-40-00 / / Explanted Type Area Spreader Operator Device Identifier Shelf Expiration Date Model / Serial / Lot Drill Bit [place] Depuy 40mm - [id number] Explanted:Qty: 1 on 11/19/2020 at [facility] Drill Right: Hip DEPUY [id number] / / Drill Bit Depuy 2.5 - [id number] Explanted:Qty: 1 on 06/24/2021 at [facility] Drill Right: Shoulder DEPUY [id number] / / Metaglene Guide Pin 2.5 Mm Explanted:Qty: 1 on 06/24/2021 at [facility] Right: Shoulder [id number] / / 3.2mm Gps Drill Explanted:Qty: 1 on 03/31/2024 by Cameron Avery MD at [facility] Left: Shoulder EXACTECH 11/17/2032 531-55-88 / / Threaded Pin Kit Explanted:Qty: 1 on 03/31/2024 by Cameron Avery MD at [facility] Left: Shoulder EXACTECH 01/24/2033 531-78-20 / / Gps User Kit Explanted:Qty: 1 on 03/31/2024 by Cameron Avery MD at [facility] Left: Shoulder EXACTECH 02/27/2026 [id number] / / Drill Bit Explanted:Qty: 1 on 03/31/2024 by Cameron Avery MD at [facility] Left: Shoulder EXACTECH 02/19/2033 321-52-07 / / Advance Directives Documents on File Type Date Recorded Patient Guidance Adviser Expl anation Advance Directives and Living Will 08/14/2020 9:58 AM 08/03/2020 DURABLE POWER OF RESUME WRITER FOR HEALTH CARE Advance Directives and Living [...] 6:55 PM 08/14/2020 6:46 PM Care Teams Resume Writer Relationship Specialty Start Date End Date Sebastien Sequeira MD [address] [place] [address] PCP - General INTERNAL MEDICINE 08/02/20
--- OUTSIDE RECORDS SUMMARY | 2025-06-15 16:01 | XMS_ITS | Encounter Summary ---
Author Organization [facility] Address [facility] [place] [address] Care Team Providers Care Field Recruiter Name Role Phone Sebastien Sequeira MD Primary Care Provider Encounter Details Date Type Department Care Team (Late st Contact Info) Description 12/10/2023 [employer]azinga[employer] Message Enc [facility] [address], [place] [id number] Adele Garcia, [facility]- Visit Follow Up Social History Tobacco Use [...] on filedocumented in this encounter Care Teams Field Recruiter Relationship Specialty Start Date End Date Sebastien Sequeira MD [address] [place] [id number] PCP - General INTERNAL MEDICINE 08/02/20 documented as of this encounter
--- OUTSIDE RECORDS SUMMARY | 2025-06-15 16:01 | XMS_ITS | Encounter Summary ---
Author Organization [facility] Address [facility] [place] [address] Care Team Providers Care Studio Technician Video Operator Name Role Phone Sebastien Sequeira MD Primary Care Provider [phone] Encounter Details Date Type Department Care Team (Late st Contact Info) Description 01/26/2023 Clickable Message Enc [facility] [address], [place] [address] Adele Garcia, MUKESH ??? TEST Social History Tobacco Use Types [...] on filedocumented in this encounter Care Teams Studio Technician Video Operator Relationship Specialty Start Date End Date Sebastien Sequeira MD [address] [place] [id number] PCP - General INTERNAL MEDICINE 08/02/20 documented as of this encounter
--- OUTSIDE RECORDS SUMMARY | 2025-06-15 16:01 | XMS_ITS | Encounter Summary ---
Author Organization [facility] Address [facility] [place] [address] Care Team Providers Care Aquatic Habitat Biologist Name Role Phone Sebastien Sequeira MD Primary Care Provider [phone] Encounter Details Date Type Department Care Team (Late st Contact Info) Description 12/10/2021 Genius[employer] Message Enc [facility] [address], [address] [address] Gustavo So MD [address] [place], [place] [id number] Visit Follow Up Social History Tobacco Use [...] on filedocumented in this encounter Care Teams Aquatic Habitat Biologist Relationship Specialty Start Date End Date Sebastien Sequeira MD [address] [place] [address] PCP - General INTERNAL MEDICINE 08/02/20 documented as of this encounter
--- OUTSIDE RECORDS SUMMARY | 2025-06-15 16:01 | XMS_ITS | Encounter Summary ---
Author Organization [facility] Address On license of [facility] [place] [address] Care Team Providers Care Distribution Engineering Technologist Name Role Phone Sebastien Sequeira MD Primary Care Provider [phone] Encounter Details Date Type Department Care Team (Latest Contact Info) Description 07/20/[address] [facility] , Zabrina Coffey MD [...] Rule Out 08/10/2020 08/10/2020 08/11/2020 11:50 AM JOIST SETTER COVID-19 Rule Out 11/16/2020 11/16/2020 11/18/2020 8:06 AM JOIST SETTER COVID-19 Rule Out 06/21/2021 06/21/2021 06/21/2021 7:19 PM CDT documented as of this encounter Care Teams Distribution Engineering Technologist Relationship Specialty Start Date End Date Sebastien Sequeira MD [address] [place] [address] PCP - General INTERNAL MEDICINE 08/02/20 documented as of this encounter
--- OUTSIDE RECORDS SUMMARY | 2025-06-15 16:01 | XMS_ITS | Encounter Summary ---
Author Organization [facility] Address 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
--- OUTSIDE RECORDS SUMMARY | 2025-06-15 16:01 | XMS_ITS | Patient Health Record ---
Author Organization [facility] [employer] [facility] Address [address] [place] [address] Care Team Providers Care Radio Engineer Name Role Phone Sebastien Sequeira MD Primary Care Provider UnavailSade Umaña Unavailable [phone] Allergies Allergen (clinical drug ingredient) Drug/Non Drug [...] decision-maker Yes Do you have Power of Director Of Clinical Trials for Health or [facility]? No Advance Directive FULL CODE Tobacco Use: Social Info Question Answer Notes Tobacco Control (Standard) Tobacco use: Nonsmoker Additional Details Category Social Info Options Details Migrated Social History Migrated Social History Alcohol Intake: Occasional 12/22/2023,Tobacco Years: Never smoker 11/13/2023 Problems Problem Type SNOMED Code ICD Code Onset Dates Problem Status W/U Status Risk Notes Problem Moderate recurrent major depression (93354892) Major depressive disorder, recurrent, moderate (F33.1) Active confirmed Problem Generalized anxiety disorder (96899323) Generalized anxiety disorder (F41.1) Active confirmed Problem Tremor (01499283) Tremor, unspecified (R25.1) Active confirmed Vital Signs Heart Rate 72 /min 05/04/2025 Height-cm 177.8 cm 05/04/2025 Blood pressure diastolic 93 mm Hg 05/04/2025 Weight-kg 135.17 kg 05/04/2025 Height 70.00 in 05/04/2025 Blood pressure systolic 155 mm Hg 05/04/2025 Weight 298 lbs 05/04/2025 BMI 42.75 kg/m2 05/04/2025 Encounters Encounter Location Date Provider Diagnosis [address] [address] 07/11/2024 Sade Bliss Major depressive disorder, recurrent, moderate F33.1 ; Generalized anxiety disorder F41.1 and Tremor, unspecified R25.[address] [address] 08/29/2024 Sadeangel Bliss Major depressive disorder, recurrent, moderate F33.1 ; Generalized anxiety disorder F41.1 and Tremor, unspecified R25.[address] [address] 10/10/2024 Sade Bliss Major depressive disorder, recurrent, moderate F33.1 ; Generalized anxiety disorder F41.1 and Tremor, unspecified R25.[address] [address] 11/22/2024 Sadeangel Bliss Generalized anxiety disorder F41.1 ; Tremor, unspecified R25.1 ; Encounter for screening for cardiovascular disorders Z13.6 ; Major depressive disorder, recurrent, moderate F33.1 ; Dietary counseling and surveillance Z71.3 and Encounter for screening for depression Z13.[address] [address] 01/16/2025 Sade Bliss Generalized anxiety disorder F41.1 ; Major depressive disorder, recurrent, moderate F33.1 ; Tremor, unspecified R25.1 ; Dietary counseling and surveillance Z71.3 ; Encounter for screening for depression Z13.31 and Encounter for screening for cardiovascular disorders Z13.[address] [address] 03/02/2025 Sadeangel Bliss Generalized anxiety disorder F41.1 ; Major depressive disorder, recurrent, moderate F33.1 ; Tremor, unspecified R25.1 ; Dietary counseling and surveillance Z71.3 ; Encounter for screening for cardiovascular disorders Z13.6 and Encounter for screening for depression Z13.[address] [address] 05/04/2025 Sade Saludcameron Major depressive disorder, recurrent, moderate F33.1 ; Generalized anxiety disorder F41.1 and Tremor, unspecified R25.1 [place] [address] [facility] [address] [place] [address] 08/01/2024 Sadeangel Bliss Generalized anxiety disorder F41.1 and Major depressive disorder, recurrent, moderate F33.1 [place] [address] [facility] [address] [place] [address] 12/16/2024 Sade Saludcameron [place] [address] [facility] [address] [place] [address] 12/16/2024 Sade Izaiah [place] [address] [facility] [address] [place] [address] 12/20/2024 Sade Saludcameron [place] [address] [facility] [address] [place] [address] 10/03/2024 Sade Bliss Generalized anxiety disorder F41.1 [...] of psychotropic medications. -Crisis prevention hotline 988. 01/16/2025 Other Increase venlafaxine to 225mg [...] of psychotropic medications. -Crisis prevention hotline 988. 03/02/2025 Other Stable on current medication [...] of psychotropic medications. -Crisis prevention hotline 988. 05/04/2025 Other Decrease Buspar to 20mg BID- [...] of psychotropic medications. -Crisis prevention hotline 988. Plan Of Treatment Next Appt Details Provider Name:Sade mitchell, 08/03/2025 11:00:00 AM, [address] [facility] [address], [facility] [address], [place], [address], Insurance Providers Payer Name Payer Address Payer Phone Subscriber Number Group Number Insured Name Patient Relationship to Insured Coverage Start Date Coverage End Date [facility] Medicare Supplement [address] [address] [place] [address] [id number] KEEGAN ALVES Self - patient is the [...]
--- OUTSIDE RECORDS SUMMARY | 2025-06-15 16:01 | XMS_ITS | Encounter Summary ---
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
--- OUTSIDE RECORDS SUMMARY | 2025-06-15 16:01 | XMS_ITS | Encounter Summary ---
Author Organization [facility] Address [facility] [place] [address] Care Team Providers Care Enamel Dipper Name Role Phone Sebastien Sequeira MD Primary Care Provider [phone] Encounter Details Date Type Department Care Team (Late st Contact Info) Description 08/18/2023 ItsPlatonic Message Enc [facility] [address], [address] [address] Gustavo So MD [address] [place], [place] [id number] Visit Follow Up Social History Tobacco Use [...] on filedocumented in this encounter Care Teams Enamel Dipper Relationship Specialty Start Date End Date Sebastien Sequeira MD [address] [place] [address] PCP - General INTERNAL MEDICINE 08/02/20 documented as of this encounter
--- OUTSIDE RECORDS SUMMARY | 2025-06-15 16:01 | XMS_ITS | Clinical Summary ---
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
--- OUTSIDE RECORDS SUMMARY | 2025-06-15 16:01 | XMS_ITS | Encounter Summary ---
Author Organization [facility] Healthcare Address [address] [place] [address] Care Team Providers Care Lap Regulator Name Role Phone Sebatsien Sequeira MD Primary Care Provider [phone] Sebastien Sequeira MD Unavailable Encounter Details Date Type Department Care Team (Late st Contact Info) Description 06/12/2025 Orders Only [facility] Cardiology [address] [facility] [address] [place] [address] Provider, MD Bridgette [address] [place] [address] Social History Tobacco Use Types Packs/Day Years [...] on file Legal Sex Female 7:58 AM ZINC SKIMMER Gender Identity Female 02/10/2023 9:38 AM CDT Sexual Orientation Straight 02/10/2023 9: 38 AM CDT documented as of this encounter Plan of Treatment Not on file documented as of this encounter Procedures Procedure Name Priority Date/Time Associated Diagnosis Comments LIPID PANEL Routine 10/28/2024 5:15 PM ZINC SKIMMER documented in this encounter Results * (ABNORMAL) Lipid panel (10/28/2024 5:15 PM ZINC SKIMMER) SCRIBED Cholesterol, Total 123 30 - 199 mg/dL EXTERNAL LAB SCRIBED Triglycerides 167(A) <=149 mg/dL EXTERNAL LAB SCRIBED HDL 44 >=40 mg/dL EXTERNAL LAB SCRIBED LDL 54 <=129 mg/dL EXTERNAL LAB Scribed Non-HDL Cholesterol 79 NONE mg/dL EXTERNAL LAB SCRIBED Total Cholesterol/HDL Ratio 123 NONE EXTERNAL LAB Blood us Historical Provider LAB BLOOD ORDERABLES Edit ed Result - Final EXTERNAL LAB documented in this encounter Visit Diagnoses Not on filedocumented in this encounter Care Teams Lap Regulator Relationship Specialty Start Date End Date Sebastien Sequeira MD PCP - General 06/04/17 Sebastien Sequeira MD 06/04/17 documented as of this encounter
--- NOTE | 2025-06-15 16:16 | ECG_ITS ---
Test Date: 2025-06-15 16:34:57 Measurements Intervals [place] Rate: 72 P: 56 AL: 211 QRS: 46 QRSD: 101 T: 77 QT: 394 QTc: 431 Interpretive Statements SINUS RHYTHM WITH FIRST DEGREE AV BLOCK BASELINE ARTIFACT- I, III, AVL BORDERLINE ECG No previous ECG available for comparison Electronically Signed On 06-15-2025 16:40:14 CDT by Manan Davenport D.O.
[2025-06-15 16:41] LABS: Hematocrit 43.8 % (35.0-42.0); Hemoglobin 13.3 g/dL (11.7-13.8); Immature Granulocyte Percent A 0.3 % (0.0-0.0); Lymphocytes Absolute Auto 1.48 K/mm3 (1.10-4.50); Mean Corpuscular HGB Conc 30.4 g/dL (32-36); Mean Corpuscular Hemoglobin 30.1 pg (27.0-31.0); Mean Corpuscular Volume 99.1 fL (78.0-102.0); Nucleated Red Blood Cells Absolute Auto 0.00 K/mm3 (0.00-0.00); Nucleated Red Blood Cells Perc 0.0 % (0-0.0); Platelet Count Result 171 K/mm3 (150-420); Red Blood Count 4.42 M/mm3 (4.20-5.40); White Blood Count 6.7 K/mm3 (4.8-10.8)
--- NOTE | 2025-06-15 16:44 | PC.NURSE ---
Patient taken down to CT
[2025-06-15 16:52] LABS: Alanine Aminotransferase 15 U/L (6-35); Albumin Level 3.8 g/dL (3.5-5.1); Alkaline Phosphatase 74 U/L (38-126); Anion Gap 5 mmol/L (4-12); Aspartate Amino Transferase 27 U/L (14-36); Bilirubin,Total 0.4 mg/dL (0.2-1.3); Blood Urea Nitrogen 12 mg/dL (7-17); Calcium 9.5 mg/dL (8.4-10.2); Carbon Dioxide 39 mmol/L (22-30); Chloride 97 mmol/L (98-107); Estimated CRCL calculation 77 ml/min; Estimated Glomerular Filt Rate > 60; Glucose 85 mg/dL (65-110); Osmolality Calculated 290 mOsm/kg (285-295); Potassium 4.5 mmol/L (3.4-5.0); Sodium 141 mmol/L (137-145); Total Protein 7.1 g/dL (6.3-8.2)
[2025-06-15 16:56] LABS: INR 1.0; Partial Thromboplastin Time 25.9 Sec (23.9-30.70); Prothrombin Time 10.6 Seconds (9.50-12.1)
[2025-06-15 17:04] LABS: NT Pro B Type Natriuretic Pept 599 pg/mL (19.9-100); Troponin I < 0.012 ng/mL (0.000-0.034)
[2025-06-15] MEDS: MORPHINE SULFATE (*CRX) 2 MG/ML INJ IV PUSH (17:05)
[2025-06-15] MEDS: ONDANSETRON INJ 4 MG/2 ML VIAL IV PUSH (17:05)
[2025-06-15 17:16] LABS: Influenza A QL RT-PCR Negative (Negative); Influenza B QL RT-PCR Negative (Negative); RSV RNA, RT-PCR Negative (Negative); SARS-CoV-2 RNA PCR Negative (Negative)
[2025-06-15 17:23] LABS: Thyroid Stimulating Hormone 1.250 uIU/mL (0.465-4.680)
[2025-06-15 17:59] LABS: Add Urine Microscopic? YES; Appearance Urine Clear (Clear); Glucose Urine UA Negative (Negative); Leukocyte Esterase Ur 1+ LEU/UL (Negative); Nitrate Urine Negative (Negative); Specific Grav Ur <= 1.005 (1.010-1.020)
--- NOTE | 2025-06-15 19:00 | PC.NURSE ---
ASSUMED CARE. REPORT RECEIVED FROM FRITZ MARCOS.
--- NOTE | 2025-06-15 19:05 | PC.NURSE ---
PATIENT HAS MOVED DOWN ON THE STRETCHER. MOVED TO A POSITION OF COMFORT. NEW STICKERS FOR LEADS PLACED. PULSE OX PLACED TO RIGHT HAND, 4TH DIGIT.
--- NOTE | 2025-06-15 19:08 | ED.DIZZY ---
HPI - Dizziness General Chief Complaint: Dizziness Stated Complaint: stroke like symptoms last 48 hours. Time Seen by Provider: 06/15/25 16:02 Source: patient and family Mode of arrival: ambulatory History of Present Illness HPI Narrative: this is a 75-year-old female that presents with some dizziness and some confusion but during examination patient was back to her baseline otherwise mildly short of breath with no chest pain no fever chills no nausea vomiting no abdominal pain no diarrhea constipation. Patient has a history of asthma/ COPD with hypothyroidism has CHF diastolic dysfunction grade 1 with ejection fraction of 60 to 65%, has history of TIAs. Had a CTA of the brain performed 2022 which showed no acute abnormalities no occlusions at that time. Patient denies any falls no blurry vision has a mild headache. Related Data Home Medications ?Medication ?Instructions ?Recorded ?Confirmed ?Last Taken ?Type ezetimibe 10 mg tablet 10 mg PO HS 03/22/20 05/09/25 05/09/25 History furosemide 40 mg tablet 40 mg PO DAILY 03/22/20 05/09/25 05/09/25 History ropinirole 2 mg tablet 4 mg PO HS 03/22/20 05/09/25 05/09/25 History spironolactone 100 mg tablet 25 mg PO DAILY 03/22/20 05/09/25 05/09/25 History clopidogrel 75 mg tablet (Plavix) 75 mg PO DAILY 01/29/23 05/09/25 05/09/25 History pregabalin 150 mg capsule 150 mg PO TID 01/29/23 05/09/25 05/09/25 History buspirone 15 mg tablet 15 mg PO BID PRN Anxiety 03/05/23 05/09/25 05/09/25 History pantoprazole 40 mg tablet,delayed 40 mg PO DAILY 03/05/23 05/09/25 05/09/25 History release albuterol sulfate 90 mcg/actuation 1 inh inhalation Q4-6H PRN 11/12/23 05/09/25 05/09/25 History breath activated powder shortness of breath or wheezing inhaler,sensor fluticasone furoate 200 1 inh inhalation DAILY 11/12/23 05/09/25 05/09/25 History mcg-vilanterol 25 mcg/dose inhalation powder (Breo Ellipta) propranolol 120 mg capsule,24 120 mg PO DAILY 01/25/24 05/09/25 05/09/25 History hr,extended release semaglutide 1 mg/dose (4 mg/3 mL) 2 mg subcut WEEKLY 02/01/25 05/09/25 Unknown History subcutaneous pen injector (Ozempic) albuterol sulfate 90 mcg/actuation 2 inh inhalation Q8H PRN shortness 05/09/25 05/09/25 05/09/25 History aerosol inhaler (Ventolin HFA) of breath or wheezing buspirone 30 mg tablet 30 mg PO BID 05/09/25 05/09/25 05/09/25 History clonazepam 1 mg tablet (Klonopin) 1 mg PO Q12H 05/09/25 05/09/25 05/09/25 History clopidogrel 75 mg tablet 75 mg PO DAILY 05/09/25 05/09/25 05/09/25 History ezetimibe 10 mg tablet 10 mg PO DAILY 05/09/25 05/09/25 05/09/25 History fluticasone furoate 200 1 inh inhalation DAILY 05/09/25 05/09/25 05/09/25 History mcg-vilanterol 25 mcg/dose inhalation powder (Breo Ellipta) furosemide 40 mg tablet (Lasix) 40 mg PO DAILY 05/09/25 05/09/25 05/09/25 History ketoconazole 2 % topical cream 1 applic topical DAILY 05/09/25 05/09/25 Unknown History levothyroxine 112 mcg tablet 112 mcg PO DAILY 05/09/25 05/09/25 05/09/25 History (Euthyrox) mirtazapine 15 mg tablet 15 mg PO DAILY 05/09/25 05/09/25 05/09/25 History ondansetron 4 mg disintegrating 4 mg PO TID 05/09/25 05/09/25 05/09/25 History tablet pantoprazole 40 mg tablet,delayed 40 mg PO QAM 05/09/25 05/09/25 05/09/25 History release potassium chloride 20 mEq 20 meq PO DAILY 05/09/25 05/09/25 05/09/25 History tablet,extended release (K-Tab) potassium chloride 20 mEq 20 meq PO DAILY 05/09/25 05/09/25 05/09/25 History tablet,extended release(part/cryst) pregabalin 150 mg capsule (Lyrica) 150 mg PO TID 05/09/25 05/09/25 05/09/25 History propranolol 120 mg capsule,24 120 mg PO DAILY 05/09/25 05/09/25 05/09/25 History hr,extended release (Inderal LA) ropinirole 2 mg tablet 2 mg PO QPM 05/09/25 05/09/25 05/08/25 History rosuvastatin 20 mg tablet (Crestor) 20 mg PO DAILY 05/09/25 05/09/25 05/09/25 History rosuvastatin 40 mg tablet 20 mg PO DAILY 05/09/25 05/09/25 05/09/25 History semaglutide 2 mg/dose (8 mg/3 mL) 2 mg subcut WEEKLY 05/09/25 05/09/25 Unknown History subcutaneous pen injector (Ozempic) spironolactone 25 mg tablet 25 mg PO DAILY 05/09/25 05/09/25 05/09/25 History tramadol 50 mg tablet 50 mg PO Q6-8H PRN pain 05/09/25 05/09/25 05/09/25 History vancomycin 250 mg capsule 250 mg PO Q6H 05/09/25 05/09/25 05/09/25 History venlafaxine 150 mg 150 mg PO QPM 05/09/25 05/09/25 05/08/25 History capsule,extended release 24 hr venlafaxine 150 mg 150 mg PO DAILY 05/09/25 05/09/25 05/09/25 History capsule,extended release 24 hr (Effexor XR) Allergies Allergy/AdvReac Type Severity Reaction Status Date / Time adhesive Allergy Intermediate RASH Verified 06/15/25 16:30 alendronate sodium Allergy Mild STOMACH Verified 06/15/25 16:30 PAIN bupropion (From Contrave) Allergy Mild Dizziness Verified 06/15/25 16:30 naltrexone (From Contrave) Allergy Mild Dizziness Verified 06/15/25 16:30 pravastatin Allergy Mild myalgia Verified 06/15/25 16:30 simvastatin Allergy Mild myalgia Verified 06/15/25 16:30 topiramate Allergy Mild Confusion Verified 06/15/25 16:30 atorvastatin Allergy Unknown Unknown Verified 06/15/25 16:30 erythromycin base Allergy Unknown Nausea and Verified 06/15/25 16:30 Vomiting naproxen Allergy Unknown Unknown Verified 06/15/25 16:30 tizanidine Allergy Unknown Unknown Verified 06/15/25 16:30 cefdinir (From Omnicef) AdvReac Unknown Rash Verified 06/15/25 16:30 Review of Systems Review of Systems: All systems reviewed & are unremarkable except as noted in HPI and below PMFSH Past Medical History Medical History Atrial fibrillation Cubital tunnel syndrome, bilateral Bilateral carpal tunnel syndrome Obstructive sleep apnea syndrome in adult Fibromyalgia Numbness in both hands Peripheral neuropathy Diastolic dysfunction On echocardiogram in April 2021. Morbid obesity Mitral valve prolapse Primary stress urinary incontinence Hypothyroidism Hypertension Degenerative joint disease Cerebrovascular accident Depression Restless leg syndrome Functional bowel disorder Migraine Surgical History Surgical History S/P foot surgery, right H/O spinal fusion History of shoulder surgery History of bilateral knee arthroplasty (2007) History of hysterectomy (1996) Family History Family History Mother Breast cancer Father Chronic obstructive pulmonary disease Sibling Breast cancer Multiple sclerosis Dementia Sibling Lung cancer Social History Social History Social History: Surrogate medical decision maker: Hayden Mills, spouse. Code status: Full code. Smoking status: Never smoker Second hand tobacco smoke exposure: No Alcohol intake: former Drinks per week: 0 Substance use: never Substance use type: prescription drug Do You Feel Safe in your Home?: Yes Lack of Transportation: No Lack of Food: Sometimes True Current Housing: I Have Housing Concerned About Future Housing: No Difficulty Paying Gas/Electric Bills: No Difficulty Paying for Meds: No Currently Unemployed: No Education: High School Diploma/GED Difficulty w/ Childcare or Family Care: No Additional living arrangements comments: Lives with in [place]. 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 Spiritual care concerns: No Exam Const: General: no acute distress Nutritional Appearance: well nourished and obese Orientation/consciousness: patient oriented x3 Limitations: no limitations HENMT: Head: normal to inspection Eyes: Conjunctivae: conjunctivae normal Pupils: Equal, round and reactive pupils present EOM: EOMs intact bilaterally Neck: Neck: normal visual inspection, no lymphadenopathy and no meningeal signs Chest: Chest palpation & inspection: normal inspection of the chest Resp: Effort & Inspection: normal respiratory effort Auscultation: diminished lung sounds Cardio: Rate: regular rate Rhythm: regular rhythm GI: GI Palp: Yes Soft to palpation Auscultation: normal bowel sounds : General: Yes bladder normal to palpation Back/Spine/Pelvis: Back: no CVA tenderness Skin: General skin exam: normal color Rashes: no rashes Neuro: General: patient oriented x3, moves all extremities, no meningeal signs, no focal motor deficits and CN's II-XI intact bilaterally Cranial nerves: Yes Nystagmus not present Speech: normal speech Extrem: General: normal to inspection, no clubbing, cyanosis or edema and edema Course Course Emergency Course: Patient back to her baseline with currently no confusion answers questions appropriately no neurological deficits, does have some mild shortness of breath and chest x-ray shows mild interstitial pulmonary edema, with some elevated D-dimer CTA performed shows no pulmonary embolism but there is mild pulmonary edema. Patient's vital signs blood pressure a 113/56, with a O2 sats around 92% but was placed on 3L of oxygen, DuoNebs were given. Patient had a normal white blood cell count. Patient has a urinalysis performed which showed urinary tract infection will start Levaquin IV. Will admit patient under hospitalist Service for observation for urinary tract infection and CHF. Vital Signs Vital signs: Vital Signs Temperature 36.7 C 06/15/25 16:02 Pulse Rate 80 06/15/25 16:02 Respiratory Rate 18 06/15/25 16:02 Blood Pressure 112/77 06/15/25 16:02 Pulse Oximetry 88 L 06/15/25 16:02 Oxygen Delivery Room Air 06/15/25 16:02 Temperature 36.7 C 06/15/25 16:02 Pulse Rate 72 06/15/25 18:30 Respiratory Rate 17 06/15/25 18:30 Blood Pressure 109/52 L 06/15/25 18:30 Pulse Oximetry 90 06/15/25 18:30 Oxygen Delivery Nasal Cannula 06/15/25 18:30 Oxygen Flow Rate 3 06/15/25 18:30 MDM - Dizziness Lab Data 06/15/25 16:29 06/15/25 16:29 Labs: Lab Results 06/15/25 06/15/2506/15/25 Range/Units 16:29 16:37 17:54 WBC 6.7 (4.8-10.8) K/mm3 RBC 4.42 (4.20-5.40) M/mm3 Hgb 13.3 (11.7-13.8) g/dL Hct 43.8 H (35.0-42.0) % MCV 99.1 (78.0-102.0) fL MCH 30.1 (27.0-31.0) pg MCHC 30.4 L (32-36) g/dL RDW 13.9 (11.6-14.4) % Plt Count 171 (150-420) K/mm3 MPV 8.7 L (9.2-11.8) fl Immature Gran % (Auto) 0.3 H (0.0-0.0) % Neut % (Auto) 60.3 (50.0-70.0) % Lymph % (Auto) 22.2 (18.0-42.0) % [place] % (Auto) 11.1 H (2.0-11.0) % Eos % (Auto) 5.5 (1.0-6.0) % Baso % (Auto) 0.6 (0.0-1.0) % Lymph # (Auto) 1.48 (1.10-4.50) K/mm3 [place] # (Auto) 0.74 (0.10-0.90) K/mm3 Eos # (Auto) 0.37 (0.02-0.50) K/mm3 Baso # (Auto) 0.04 (0.00-0.10) K/mm3 Abs Immat Gran (auto) 0.02 H (0.00-0.00) K/mm3 Absolute Neuts (auto) 4.03 (1.70-7.20) K/mm3 Absolute Nucleated RBC 0.00 (0.00-0.00) K/mm3 Nucleated RBC % 0.0 (0-0.0) % PT 10.6 (9.50-12.1) Seconds INR 1.0 APTT 25.9 (23.9-30.70) Sec D-Dimer (0.19-0.50) mg/L Sodium 141 (137-145) mmol/L Potassium 4.5 (3.4-5.0) mmol/L Chloride 97 L (98-107) mmol/L Carbon Dioxide 39 H (22-30) mmol/L Anion Gap 5 (4-12) mmol/L BUN 12 (7-17) mg/dL Creatinine 0.84 (0.7-1.0) mg/dL Estim Creat Clear Calc 77 ml/min Estimated GFR > 60 (59 - ) Glucose 85 (65-110) mg/dL Calculated Osmolality 290 (285-295) mOsm/kg Lactic Acid 0.8 (0.4-2.0) mmol/L Calcium 9.5 (8.4-10.2) mg/dL Total Bilirubin 0.4 (0.2-1.3) mg/dL AST 27 (14-36) U/L ALT 15 (6-35) U/L Alkaline Phosphatase 74 (38-126) U/L Troponin I < 0.012 (0.000-0.034) ng/mL NT-Pro-B Natriuret Pep 599 H (19.9-100) pg/mL Total Protein 7.1 (6.3-8.2) g/dL Albumin 3.8 (3.5-5.1) g/dL TSH 1.250 (0.465-4.680) uIU/mL Urine Color Light yellow (Yellow) Urine Appearance Clear (Clear) Urine pH 6.0 (5.0-8.0) Ur Specific [place] <= 1.005 L (1.010-1.020) Urine Protein Negative (Negative) Urine Glucose (UA) Negative (Negative) Urine Ketones Negative (Negative) Ur Blood (Man) Trace-intact H (Negative) Urine Nitrate Negative (Negative) Urine Bilirubin Negative (Negative) Urine Urobilinogen 0.2 (0.2-1.0) mg/dL Leukocyte Esterase Rfl 1+ H (Negative) NICK/UL Urine RBC 0-2 (0-2) /hpf Urine WBC 7-9 H (0-3) /hpf Ur Squamous Epith Cells Occasional (Few) /hpf Urine Bacteria None seen (None) /hpf Influenza A (RT-PCR) Negative (Negative) Influenza B (RT-PCR) Negative (Negative) RSV (RT-PCR) Negative (Negative) SARS-CoV-2 RNA (RT-PCR) Negative (Negative) 10/02/25 Range/Units 18:01 WBC (4.8-10.8) K/mm3 RBC (4.20-5.40) M/mm3 Hgb (11.7-13.8) g/dL Hct (35.0-42.0) % MCV (78.0-102.0) fL MCH (27.0-31.0) pg MCHC (32-36) g/dL RDW (11.6-14.4) % Plt Count (150-420) K/mm3 MPV (9.2-11.8) fl Immature Gran % (Auto) (0.0-0.0) % Neut % (Auto) (50.0-70.0) % Lymph % (Auto) (18.0-42.0) % [place] % (Auto) (2.0-11.0) % Eos % (Auto) (1.0-6.0) % Baso % (Auto) (0.0-1.0) % Lymph # (Auto) (1.10-4.50) K/mm3 [place] # (Auto) (0.10-0.90) K/mm3 Eos # (Auto) (0.02-0.50) K/mm3 Baso # (Auto) (0.00-0.10) K/mm3 Abs Immat Gran (auto) (0.00-0.00) K/mm3 Absolute Neuts (auto) (1.70-7.20) K/mm3 Absolute Nucleated RBC (0.00-0.00) K/mm3 Nucleated RBC % (0-0.0) % PT (9.50-12.1) Seconds INR APTT (23.9-30.70) Sec D-Dimer 0.63 H (0.19-0.50) mg/L Sodium (137-145) mmol/L Potassium (3.4-5.0) mmol/L Chloride (98-107) mmol/L Carbon Dioxide (22-30) mmol/L Anion Gap (4-12) mmol/L BUN (7-17) mg/dL Creatinine (0.7-1.0) mg/dL Estim Creat Clear Calc ml/min Estimated GFR (59 - ) Glucose (65-110) mg/dL Calculated Osmolality (285-295) mOsm/kg Lactic Acid (0.4-2.0) mmol/L Calcium (8.4-10.2) mg/dL Total Bilirubin (0.2-1.3) mg/dL AST (14-36) U/L ALT (6-35) U/L Alkaline Phosphatase (38-126) U/L Troponin I (0.000-0.034) ng/mL NT-Pro-B Natriuret Pep (19.9-100) pg/mL Total Protein (6.3-8.2) g/dL Albumin (3.5-5.1) g/dL TSH (0.465-4.680) uIU/mL Urine Color (Yellow) Urine Appearance (Clear) Urine pH (5.0-8.0) Ur Specific [place] (1.010-1.020) Urine Protein (Negative) Urine Glucose (UA) (Negative) Urine Ketones (Negative) Ur Blood (Man) (Negative) Urine Nitrate (Negative) Urine Bilirubin (Negative) Urine Urobilinogen (0.2-1.0) mg/dL Leukocyte Esterase Rfl (Negative) NICK/UL Urine RBC (0-2) /hpf Urine WBC (0-3) /hpf Ur Squamous Epith Cells (Few) /hpf Urine Bacteria (None) /hpf Influenza A (RT-PCR) (Negative) Influenza B (RT-PCR) (Negative) RSV (RT-PCR) (Negative) SARS-CoV-2 RNA (RT-PCR) (Negative) Critical Care Time Critical Care Time Critical Care Time: No Discharge Plan Discharge Clinical Impression: UTI (urinary tract infection) Qualifiers: Urinary tract infection type: site unspecified Hematuria presence: without hematuria Qualified Code(s): N39.0 - Urinary tract infection, site not specified CHF (congestive heart failure) Qualifiers: Heart failure type: diastolic Heart failure chronicity: acute Qualified Code(s): I50.31 - Acute diastolic (congestive) heart failure Asthma Qualifiers: Asthma severity: mild Asthma persistence: unspecified Asthma complication type: unspecified Qualified Code(s): J45.909 - Unspecified asthma, uncomplicated Patient Disposition: Acute Care Hospital Condition: Guarded Prognosis Patient Language: Hungarian Prescriptions: No Action furosemide 40 mg tablet 40 mg PO DAILY Patient Comments: thursday, , thursday spironolactone 100 mg tablet 25 mg PO DAILY ropinirole 2 mg tablet 4 mg PO HS ezetimibe 10 mg tablet 10 mg PO HS potassium chloride [K-Tab] 20 mEq tablet extended release 20 meq PO DAILY rosuvastatin [Crestor] 20 mg tablet 20 mg PO DAILY venlafaxine [Effexor XR] 150 mg capsule,extended release 24hr 150 mg PO DAILY spironolactone 25 mg tablet 25 mg PO DAILY fluticasone furoate-vilanterol [Breo Ellipta] 200-25 mcg/dose blister with device 1 inh inhalation DAILY propranolol [Inderal LA] 120 mg capsule,extended release 24 hr 120 mg PO DAILY albuterol sulfate [Ventolin HFA] 90 mcg/actuation HFA aerosol inhaler 2 inh inhalation Q8H PRN (Reason: shortness of breath or wheezing) buspirone 30 mg tablet 30 mg PO BID mirtazapine 15 mg tablet 15 mg PO DAILY ropinirole 2 mg tablet 2 mg PO QPM ezetimibe 10 mg tablet 10 mg PO DAILY pantoprazole 40 mg tablet,delayed release (DR/EC) 40 mg PO QAM clopidogrel 75 mg tablet 75 mg PO DAILY pregabalin [Lyrica] 150 mg capsule 150 mg PO TID Ozempic 2 mg/dose (8 mg/3 mL) pen injector 2 mg subcut WEEKLY furosemide [Lasix] 40 mg tablet 40 mg PO DAILY levothyroxine [Euthyrox] 112 mcg tablet 112 mcg PO DAILY clonazepam [Klonopin] 1 mg tablet 1 mg PO Q12H tramadol 50 mg tablet 50 mg PO Q6-8H PRN (Reason: pain) ondansetron 4 mg tablet,disintegrating 4 mg PO TID ketoconazole 2 % cream 1 applic topical DAILY vancomycin 250 mg capsule 250 mg PO Q6H venlafaxine 150 mg capsule,extended release 24hr 150 mg PO QPM potassium chloride 20 mEq tablet,ER particles/crystals 20 meq PO DAILY rosuvastatin 40 mg tablet 20 mg PO DAILY albuterol sulfate 90 mcg/actuation aero powdr breath act w/sensor 1 inh inhalation Q4-6H PRN (Reason: shortness of breath or wheezing) fluticasone furoate-vilanterol [Breo Ellipta] 200-25 mcg/dose blister with device 1 inh inhalation DAILY Ozempic 1 mg/dose (4 mg/3 mL) pen injector 2 mg subcut WEEKLY clonazepam [Klonopin] 1 mg tablet 1 mg PO BID Qty: 60 0RF mirtazapine [Remeron] 15 mg tablet 15 mg PO QHS Qty: 90 3RF Rx Instructions: may increase to 2 tablets at bedtime propranolol 120 mg capsule,extended release 24hr 120 mg PO DAILY clopidogrel [Plavix] 75 mg Tablet 75 mg PO DAILY pregabalin 150 mg capsule 150 mg PO TID pantoprazole 40 mg tablet,delayed release (DR/EC) 40 mg PO DAILY buspirone 15 mg tablet 15 mg PO BID PRN (Reason: Anxiety) levothyroxine 112 mcg capsule 112.5 mcg PO DAILY Qty: 30 0RF Rx Instructions: Take levothyroxine 112.5 mcg capsule PO daily for hypothyroidism. Follow-up/Referrals: Sebastien Sequeira MD [Primary Care Provider, Internal Medicine] Time of Disposition: 19:14
[2025-06-15] MEDS: SODIUM CHLORIDE 0.9% IV 1,000 ML 100 ML IV CONT (20:42)
[2025-06-15] MEDS: IPRATROPIUM 0.5 MG/ALBUTEROL SULFATE 2.5 MG (BASE) AMPUL.NEB 3 ML INHALATION (20:50)
--- NOTE | 2025-06-15 21:15 | ADMGEN ---
This patient, Gilma Mills, was admitted to 2nd Floor Room 226-1. Patient oriented to hospital policies and general routines including ID bracelet, bed and alarms, visiting hours, pain management, procedures, bathroom and other care routines, personal items, smoking policy, room service/diet, and visiting hours. Information on how to activate the Rapid Response Team has been discussed. Patient are encouraged to report perceived risks to care and to ask questions if they do not understand what they are told or what they should do.
[2025-06-16] VITALS (8 sets, daily range): BP systolic 114–131; BP diastolic 55–61; PULSE 59–93; RESP 18–20; TEMP 36.2–36.6; O2SAT 92–93
--- NOTE | 2025-06-16 01:00 | PC.NURSE ---
Patient sleeping, O2 noted to be removed, SPO2 at 82% on room air, Nasal cannula replaced at 3L,with SPO2 recovery to 92%
[2025-06-16] MEDS: ACETAMINOPHEN 325 MG TABLET 650 MG PO ×3 (01:58→11:14)
[2025-06-16 05:29] LABS: Hematocrit 40.5 % (35.0-42.0); Hemoglobin 12.1 g/dL (11.7-13.8); Immature Granulocyte Percent A 0.4 % (0.0-0.0); Lymphocytes Absolute Auto 1.04 K/mm3 (1.10-4.50); Mean Corpuscular HGB Conc 29.9 g/dL (32-36); Mean Corpuscular Hemoglobin 30.1 pg (27.0-31.0); Mean Corpuscular Volume 100.7 fL (78.0-102.0); Nucleated Red Blood Cells Absolute Auto 0.00 K/mm3 (0.00-0.00); Nucleated Red Blood Cells Perc 0.0 % (0-0.0); Platelet Count Result 132 K/mm3 (150-420); Red Blood Count 4.02 M/mm3 (4.20-5.40); White Blood Count 4.9 K/mm3 (4.8-10.8)
[2025-06-16 05:41] LABS: Alanine Aminotransferase 13 U/L (6-35); Albumin Level 3.3 g/dL (3.5-5.1); Alkaline Phosphatase 67 U/L (38-126); Anion Gap 5 mmol/L (4-12); Aspartate Amino Transferase 21 U/L (14-36); Bilirubin,Total 0.2 mg/dL (0.2-1.3); Blood Urea Nitrogen 9 mg/dL (7-17); Calcium 8.6 mg/dL (8.4-10.2); Carbon Dioxide 39 mmol/L (22-30); Chloride 99 mmol/L (98-107); Estimated CRCL calculation 75 ml/min; Estimated Glomerular Filt Rate > 60; Glucose 118 mg/dL (65-110); Osmolality Calculated 295 mOsm/kg (285-295); Potassium 4.5 mmol/L (3.4-5.0); Sodium 143 mmol/L (137-145); Total Protein 5.9 g/dL (6.3-8.2)
[2025-06-16] MEDS: SALMET XINAFT/FLUTIC PROPIN 500 MCG/50 MCG INH CAP 1 PUFF INHALATION ×2 (08:41→21:21)
[2025-06-16] MEDS: PROPRANOLOL HCL 60 MG CAPSULE CR 120 MG PO (08:42)
[2025-06-16] MEDS: SPIRONOLACTONE 25 MG TABLET 100 MG PO (08:43)
[2025-06-16] MEDS: LEVOTHYROXINE SODIUM 112 MCG TABLET PO (08:44)
[2025-06-16] MEDS: PREGABALIN 150 MG PO ×3 (08:44→17:07)
[2025-06-16] MEDS: VENLAFAXINE HCL XR 75 MG CAP.ER.24H 150 MG PO (08:45)
[2025-06-16] MEDS: ROSUVASTATIN 10 MG TABLET 20 MG PO (08:45)
[2025-06-16] MEDS: clonazePAM (*CRX) 0.5 MG TABLET 1 MG PO ×2 (08:46→20:20)
[2025-06-16] MEDS: MIRTAZAPINE 15 MG TABLET PO (08:46)
[2025-06-16] MEDS: CLOPIDOGREL BISULFATE 75 MG TABLET PO (08:46)
[2025-06-16] MEDS: PANTOPRAZOLE 40 MG TABLET PO (08:47)
[2025-06-16] MEDS: FUROSEMIDE INJ 20 MG/2 ML VIAL IV PUSH (08:47)
--- NOTE | 2025-06-16 15:56 | PM.IMHP ---
H&P: HPI History of Present Illness Date/Time: 06/16/25 15:56 Chief Complaint: AMS, dizziness Narrative: Patient is a 75 year old female with PMH of atrial fibrillation, PARI, fibromyalgia, neuropathy, chronic diastolic heart failure, morbid obesity, hypothyroidism, HTN, DJD, CVA, TIAs, depression, RLS and migraines. Patient presented to the ER with complaints of confusion that started on Thursday at 5 am. Per patient the confusion resolved within a few hours. Patient also reports that she became dizzy and had a headache that has not gone away since Thursday morning. Patient denied any other acute complaints. Patient reports she was recently treated for c-difficile infection with PO vancomycin x 2 rounds. She reports she completed the medication last Thursday. She reports her diarrhea resolved. The patient went to her PCP yesterday and was sent to the ER for further workup. In the ER the patient was found to be hypoxic and placed on oxygen by NC. Patient's d-dimer was elevated and she had a chest CTA which was negative for PE but did show pulmonary edema. Patients head CT was negative for acute findings. Patient's UA showed 1+ leukocyte esterase and 7-9 wbc. Patient was started on PO Levaquin, urine culture pending. Patients IV fluids stopped, given 1 dose of IV Lasix 20 mg today. MRI brain ordered and will be completed tomorrow. ECHO ordered but will need to be completed as outpatient. Appointment set up by nurse. PT/OT ordered. Patient was admitted for further evaluatoin and treatment. Review of Systems Review of Systems: All systems reviewed & are unremarkable except as noted in HPI and below PMFSH Past Medical History Medical History Atrial fibrillation Cubital tunnel syndrome, bilateral Bilateral carpal tunnel syndrome Obstructive sleep apnea syndrome in adult Fibromyalgia Numbness in both hands Peripheral neuropathy Diastolic dysfunction On echocardiogram in April 2021. Morbid obesity Mitral valve prolapse Primary stress urinary incontinence Hypothyroidism Hypertension Degenerative joint disease Cerebrovascular accident Depression Restless leg syndrome Functional bowel disorder Migraine Surgical History Surgical History S/P foot surgery, right H/O spinal fusion History of shoulder surgery History of bilateral knee arthroplasty (2007) History of hysterectomy (1996) Family History Family History Mother Breast cancer Father Chronic obstructive pulmonary disease Sibling Breast cancer Multiple sclerosis Dementia Sibling Lung cancer Social History Social History Social History: Surrogate medical decision maker: Hayden Mills, spouse. Code status: Full code. Smoking status: Never smoker Second hand tobacco smoke exposure: No Alcohol intake: never Drinks per week: 0 Substance use: never Substance use type: does not use Do You Feel Safe in your Home?: Yes Lack of Transportation: No Lack of Food: Never True Current Housing: I Have Housing Concerned About Future Housing: No Difficulty Paying Gas/Electric Bills: No Difficulty Paying for Meds: No Currently Unemployed: No Education: Associate Degree Difficulty w/ Childcare or Family Care: No Additional living arrangements comments: Lives with in [place]. 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 Instructions: Order Change ropinirole 2 mg tablet 4 mg PO HS 03/22/20 06/15/25 History spironolactone 100 mg tablet 25 mg PO DAILY 03/22/20 06/15/25 History pregabalin 150 mg capsule 150 mg PO TID 01/29/23 06/15/25 History buspirone 15 mg tablet 15 mg PO BID PRN Anxiety 03/05/23 06/15/25 History levothyroxine 112 mcg capsule 112.5 mcg (1.0045 x 112 mcg) PO 05/23/23 06/15/25 Rx DAILY #30 caps albuterol sulfate 90 mcg/actuation 1 inh inhalation Q4-6H PRN 11/12/23 06/15/25 History breath activated powder shortness of breath or wheezing inhaler,sensor propranolol 120 mg capsule,24 120 mg PO DAILY 01/25/24 06/15/25 History hr,extended release clonazepam 1 mg tablet (Klonopin) 1 mg PO BID #60 tabs 03/09/24 06/15/25 Rx semaglutide 1 mg/dose (4 mg/3 mL) 2 mg subcut WEEKLY 02/01/25 06/15/25 History subcutaneous pen injector (Ozempic) Held on 06/15/25. Instructions: .Provider Order albuterol sulfate 90 mcg/actuation 2 inh inhalation Q8H PRN shortness 05/09/25 06/15/25 History aerosol inhaler (Ventolin HFA) of breath or wheezing clonazepam 1 mg tablet (Klonopin) 1 mg PO Q12H 05/09/25 06/15/25 History clopidogrel 75 mg tablet 75 mg PO DAILY 05/09/25 06/15/25 History fluticasone furoate 200 1 inh inhalation DAILY 05/09/25 06/15/25 History mcg-vilanterol 25 mcg/dose inhalation powder (Breo Ellipta) furosemide 40 mg tablet (Lasix) 40 mg PO DAILY 05/09/25 06/15/25 History Held on 06/15/25. Instructions: .Provider Order mirtazapine 15 mg tablet 15 mg PO DAILY 05/09/25 06/15/25 History ondansetron 4 mg disintegrating 4 mg PO TID 05/09/25 06/15/25 History tablet pantoprazole 40 mg tablet,delayed 40 mg PO QAM 05/09/25 06/15/25 History release rosuvastatin 40 mg tablet 20 mg PO DAILY 05/09/25 06/15/25 History semaglutide 2 mg/dose (8 mg/3 mL) 2 mg subcut WEEKLY 05/09/25 06/15/25 History subcutaneous pen injector (Ozempic) Held on 06/15/25. Instructions: .Provider Order tramadol 50 mg tablet 50 mg PO Q6-8H PRN pain 05/09/25 06/15/25 History venlafaxine 150 mg 150 mg PO DAILY 05/09/25 06/15/25 History capsule,extended release 24 hr (Effexor XR) Allergies Allergy/AdvReac Type Severity Reaction Status Date / Time adhesive Allergy Intermediate RASH Verified 06/15/25 16:30 alendronate sodium Allergy Mild STOMACH Verified 06/15/25 16:30 PAIN bupropion (From Contrave) Allergy Mild Dizziness Verified 06/15/25 16:30 naltrexone (From Contrave) Allergy Mild Dizziness Verified 06/15/25 16:30 pravastatin Allergy Mild myalgia Verified 06/15/25 16:30 simvastatin Allergy Mild myalgia Verified 06/15/25 16:30 topiramate Allergy Mild Confusion Verified 06/15/25 16:30 atorvastatin Allergy Unknown Unknown Verified 06/15/25 16:30 erythromycin base Allergy Unknown Nausea and Verified 06/15/25 16:30 Vomiting naproxen Allergy Unknown Unknown Verified 06/15/25 16:30 tizanidine Allergy Unknown Unknown Verified 06/15/25 16:30 cefdinir (From Omnicef) AdvReac Unknown Rash Verified 06/15/25 16:30 Vital Signs Vital Signs - 24 hr 06/15/25 16:02 06/15/25 16:30 06/15/25 17:00 Temperature 98.1 F Pulse Rate 80 67 74 Respiratory Rate 18 18 18 Blood Pressure 112/77 112/49 L 116/54 L Pulse Oximetry 88 L 90 95 Oxygen Delivery Room Air Nasal Cannula Nasal Cannula Oxygen Flow Rate 3 3 06/15/25 17:30 06/15/25 18:00 06/15/25 18:30 Temperature Pulse Rate 75 75 72 Respiratory Rate 18 75 H 17 Blood Pressure 110/63 108/58 L 109/52 L Pulse Oximetry 93 92 90 Oxygen Delivery Nasal Cannula Nasal Cannula Nasal Cannula Oxygen Flow Rate 3 3 3 06/15/25 18:52 06/15/25 19:02 06/15/25 19:17 Temperature Pulse Rate 82 79 80 Respiratory Rate 18 18 18 Blood Pressure 116/61 113/56 L 102/66 Pulse Oximetry 96 87 L 95 Oxygen Delivery Nasal Cannula Nasal Cannula Nasal Cannula Oxygen Flow Rate 3 3 3 06/15/25 19:22 06/15/25 19:32 06/15/25 19:47 Temperature Pulse Rate 81 81 79 Respiratory Rate 18 21 H 21 H Blood Pressure 97/51 L 126/64 Pulse Oximetry 92 97 90 Oxygen Delivery Nasal Cannula Nasal Cannula Nasal Cannula Oxygen Flow Rate 3 3 3 06/15/25 20:00 06/15/25 20:02 06/15/25 20:20 Temperature Pulse Rate 81 81 Respiratory Rate 22 H 22 H Blood Pressure 122/69 122/69 Pulse Oximetry 90 92 92 Oxygen Delivery Nasal Cannula Nasal Cannula Oxygen Flow Rate 3 3 06/15/25 20:30 06/16/25 00:00 06/16/25 00:00 Temperature 97.9 F Pulse Rate 81 77 77 Respiratory Rate 18 20 Blood Pressure 131/61 Pulse Oximetry 92 92 Oxygen Delivery Nasal Cannula Nasal Cannula Oxygen Flow Rate 3 2 06/16/25 04:00 06/16/25 08:00 06/16/25 08:00 Temperature 97.2 F L Pulse Rate 78 59 L 78 Respiratory Rate 18 Blood Pressure 121/58 L Pulse Oximetry 92 Oxygen Delivery Nasal Cannula Oxygen Flow Rate 3 06/16/25 08:42 06/16/25 12:00 Temperature Pulse Rate 78 69 Respiratory Rate Blood Pressure Pulse Oximetry Oxygen Delivery Oxygen Flow Rate Exam Const: General: comfortable and no acute distress Other: O2 by NC HENMT: Face/Nose/Sinus: Normal nares present Mouth: Yes moist mucous membranes Eyes: General: appearance normal, both eyes and all related structures Sclera: sclerae normal Pupils: Equal, round and reactive pupils present Neck: Neck: supple Resp: Effort & Inspection: normal respiratory effort Auscultation: clear to auscultation bilaterally Cardio: Rate: regular rate Rhythm: regular rhythm GI: GI Palp: Yes Soft to palpation Auscultation: normal bowel sounds Skin: General skin exam: normal color and no rashes or lesions noted Neuro: General: gait normal Speech: normal speech Motor exam (neuro): 5/5 motor strength present throughout Sensory Exam: normal sensation Extrem: General: normal to inspection Psych: Mental Status: mental status grossly normal Affect: normal affect H&P: Results Labs Labs: Short CBC 06/15/25 06/16/25 Range/Units 16:29 05:08 WBC 6.7 4.9 (4.8-10.8) K/mm3 Hgb 13.3 12.1 (11.7-13.8) g/dL Hct 43.8 H 40.5 (35.0-42.0) % Plt Count 171 132 L (150-420) K/mm3 BMP 06/15/25 06/16/25 16:29 05:08 Sodium 141 143 Potassium 4.5 4.5 Chloride 97 L 99 Carbon Dioxide 39 H 39 H BUN 12 9 Creatinine 0.84 0.86 Glucose 85 118 H Calcium 9.5 8.6 Cardiac Enzymes 06/15/25 Range/Units 16:29 Troponin I < 0.012 (0.000-0.034) ng/mL Liver Function 06/15/25 06/16/25 Range/Units 16:29 05:08 Total Bilirubin 0.4 0.2 (0.2-1.3) mg/dL AST 27 21 (14-36) U/L ALT 15 13 (6-35) U/L Alkaline Phosphatase 74 67 (38-126) U/L Albumin 3.8 3.3 L (3.5-5.1) g/dL Urine 06/15/25 Range/Units 17:54 Urine Color Light yellow (Yellow) Urine Appearance Clear (Clear) Urine pH 6.0 (5.0-8.0) Ur Specific [place] <= 1.005 L (1.010-1.020) Urine Protein Negative (Negative) Urine Glucose (UA) Negative (Negative) Assessment and Plan Assessment and plan (1) Acute on chronic diastolic (congestive) heart failure: Code(s): I50.33 - Acute on chronic diastolic (congestive) heart failure Status: Acute Assessment and Plan: last ECHO 01/30/2023 with grade 1 diastolic dysfunction, EF 60-65% patient with pulmonary edema on chest CT patient hypoxic and requiring oxygen by NC in the ER patient reports she has been holding her home furosemide for the last few weeks as it was stopped by her PCP when she was having diarrhea continue home spironolactone IV furosemide 20 mg daily ECHO ordered, if unable to complete will need to be done as an outpatient after discharge low sodium diet repeat CXR tomorrow (2) Acute hypoxic respiratory failure: Code(s): J96.01 - Acute respiratory failure with hypoxia Status: Acute Assessment and Plan: patient with o2 sats in the low 80s on room air does not wear oxygen at home suspect due to CHF exacerbation wean oxygen as tolerated d-dimer elevated, CT Chest PE protocol negative for PE, showed pulmonary edema (3) UTI (urinary tract infection): Qualifiers: Hematuria presence: without hematuria Urinary tract infection type: site unspecified Qualified Code(s): N39.0 - Urinary tract infection, site not specified Code(s): N39.0 - Urinary tract infection, site not specified Status: Acute Assessment and Plan: UA with 1+ leukocyte esterase, 7-10 wbc's urine culture is pending blood cultures pending continue PO Levaquin AM labs (4) Confusion: Code(s): R41.0 - Disorientation, unspecified Status: Acute Assessment and Plan: patient with confusion that started Thursday morning at [address] wihtout acute abnormalities check MRI brain to rule out stroke suspect due to UTI vs CVA vs possible TIA (5) Dizziness: Code(s): R42 - Dizziness and giddiness Status: Acute Assessment and Plan: patient reports dizziness since Thursday morning check MRI brain no associated nausea or vomiting consider meclizine if needed (6) Atrial fibrillation: Code(s): I48.91 - Unspecified atrial fibrillation Status: Acute Assessment and Plan: rate controlled continue propranolol for rate control patient is not on anticoagulation at home (7) Peripheral neuropathy: Code(s): G62.9 - Polyneuropathy, unspecified Status: Acute Assessment and Plan: pain control continue Lyrica (8) Restless leg syndrome: Code(s): G25.81 - Restless legs syndrome Status: Acute Assessment and Plan: continue ropinirole (9) Hypertension: Qualifiers: Hypertension type: primary hypertension Qualified Code(s): I10 - Essential (primary) hypertension Code(s): I10 - Essential (primary) hypertension Status: Acute Assessment and Plan: BP stable continue home propranolol per patient request as she reports she takes it for migraine prevention monitor closely (10) Hypothyroid: Qualifiers: Hypothyroidism type: unspecified Qualified Code(s): E03.9 - Hypothyroidism, unspecified Code(s): E03.9 - Hypothyroidism, unspecified Status: Acute Assessment and Plan: continue levothyroxine Quality VTE Prophylaxis VTE prophylaxis: mechanical ordered
[2025-06-16] MEDS: traMADol HCL (*CRX) 50 MG TABLET PO (21:20)
[2025-06-16] MEDS: EZETIMIBE 10 MG TABLET PO (21:21)
[2025-06-17] VITALS (14 sets, daily range): BP systolic 114–143; BP diastolic 51–85; PULSE 62–83; RESP 16–18; TEMP 36.2–36.6; O2SAT 92–95
[2025-06-17] MEDS: ACETAMINOPHEN 325 MG TABLET 650 MG PO ×2 (01:45→05:06)
[2025-06-17] MEDS: LEVOTHYROXINE SODIUM 112 MCG TABLET PO (05:06)
[2025-06-17 07:23] LABS: Hematocrit 41.8 % (35.0-42.0); Hemoglobin 12.4 g/dL (11.7-13.8); Immature Granulocyte Percent A 0.2 % (0.0-0.0); Lymphocytes Absolute Auto 1.02 K/mm3 (1.10-4.50); Mean Corpuscular HGB Conc 29.7 g/dL (32-36); Mean Corpuscular Hemoglobin 29.8 pg (27.0-31.0); Mean Corpuscular Volume 100.5 fL (78.0-102.0); Nucleated Red Blood Cells Absolute Auto 0.00 K/mm3 (0.00-0.00); Nucleated Red Blood Cells Perc 0.0 % (0-0.0); Platelet Count Result 136 K/mm3 (150-420); Red Blood Count 4.16 M/mm3 (4.20-5.40); White Blood Count 4.9 K/mm3 (4.8-10.8)
[2025-06-17 07:40] LABS: Alanine Aminotransferase 13 U/L (6-35); Albumin Level 3.4 g/dL (3.5-5.1); Alkaline Phosphatase 64 U/L (38-126); Anion Gap 6.99999 mmol/L (4-12); Aspartate Amino Transferase 22 U/L (14-36); Bilirubin,Total 0.3 mg/dL (0.2-1.3); Blood Urea Nitrogen 10 mg/dL (7-17); Calcium 9.1 mg/dL (8.4-10.2); Carbon Dioxide > 40 mmol/L (22-30); Chloride 95 mmol/L (98-107); Estimated CRCL calculation 78 ml/min; Estimated Glomerular Filt Rate > 60; Glucose 110 mg/dL (65-110); Osmolality Calculated 294 mOsm/kg (285-295); Potassium 4.5 mmol/L (3.4-5.0); Sodium 142 mmol/L (137-145); Total Protein 6.0 g/dL (6.3-8.2)
[2025-06-17 07:46] LABS: NT Pro B Type Natriuretic Pept 353 pg/mL (19.9-100)
[2025-06-17] MEDS: clonazePAM (*CRX) 0.5 MG TABLET 1 MG PO (09:04)
[2025-06-17] MEDS: PREGABALIN 150 MG PO ×2 (09:05→14:13)
[2025-06-17] MEDS: PROPRANOLOL HCL 60 MG CAPSULE CR 120 MG PO (09:05)
[2025-06-17] MEDS: VENLAFAXINE HCL XR 75 MG CAP.ER.24H 150 MG PO (09:06)
[2025-06-17] MEDS: PANTOPRAZOLE 40 MG TABLET PO (09:06)
[2025-06-17] MEDS: MIRTAZAPINE 15 MG TABLET PO (09:06)
[2025-06-17] MEDS: SPIRONOLACTONE 25 MG TABLET 100 MG PO (09:07)
[2025-06-17] MEDS: ROSUVASTATIN 10 MG TABLET 20 MG PO (09:07)
[2025-06-17] MEDS: CLOPIDOGREL BISULFATE 75 MG TABLET PO (09:07)
[2025-06-17] MEDS: traMADol HCL (*CRX) 50 MG TABLET PO (09:08)
--- NOTE | 2025-06-17 09:48 | PM.IMPN ---
Progress Note: A&P Assessment and Plan (1) Acute on chronic diastolic (congestive) heart failure: Code(s): I50.33 - Acute on chronic diastolic (congestive) heart failure Status: Acute Assessment and Plan: last ECHO 01/30/2023 with grade 1 diastolic dysfunction, EF 60-65% patient with pulmonary edema on chest CT patient hypoxic and requiring oxygen by NC in the ER patient reports she has been holding her home furosemide for the last few weeks as it was stopped by her PCP when she was having diarrhea continue home spironolactone IV furosemide 20 mg daily ECHO ordered, if unable to complete will need to be done as an outpatient after discharge low sodium diet repeat CXR tomorrow (2) Acute hypoxic respiratory failure: Code(s): J96.01 - Acute respiratory failure with hypoxia Status: Acute Assessment and Plan: patient with o2 sats in the low 80s on room air does not wear oxygen at home suspect due to CHF exacerbation wean oxygen as tolerated d-dimer elevated, CT Chest PE protocol negative for PE, showed pulmonary edema (3) UTI (urinary tract infection): Qualifiers: Hematuria presence: without hematuria Urinary tract infection type: site unspecified Qualified Code(s): N39.0 - Urinary tract infection, site not specified Code(s): N39.0 - Urinary tract infection, site not specified Status: Acute Assessment and Plan: UA with 1+ leukocyte esterase, 7-10 wbc's urine culture is pending blood cultures pending continue PO Levaquin AM labs (4) Confusion: Code(s): R41.0 - Disorientation, unspecified Status: Acute Assessment and Plan: patient with confusion that started Thursday morning at [address] wihtout acute abnormalities check MRI brain to rule out stroke suspect due to UTI vs CVA vs possible TIA (5) Dizziness: Code(s): R42 - Dizziness and giddiness Status: Acute Assessment and Plan: patient reports dizziness since Thursday morning check MRI brain no associated nausea or vomiting consider meclizine if needed (6) Atrial fibrillation: Code(s): I48.91 - Unspecified atrial fibrillation Status: Acute Assessment and Plan: rate controlled continue propranolol for rate control patient is not on anticoagulation at home (7) Peripheral neuropathy: Code(s): G62.9 - Polyneuropathy, unspecified Status: Acute Assessment and Plan: pain control continue Lyrica (8) Restless leg syndrome: Code(s): G25.81 - Restless legs syndrome Status: Acute Assessment and Plan: continue ropinirole (9) Hypertension: Qualifiers: Hypertension type: primary hypertension Qualified Code(s): I10 - Essential (primary) hypertension Code(s): I10 - Essential (primary) hypertension Status: Acute Assessment and Plan: BP stable continue home propranolol per patient request as she reports she takes it for migraine prevention monitor closely (10) Hypothyroid: Qualifiers: Hypothyroidism type: unspecified Qualified Code(s): E03.9 - Hypothyroidism, unspecified Code(s): E03.9 - Hypothyroidism, unspecified Status: Acute Assessment and Plan: continue levothyroxine Subjective Date/time seen: 06/17/25 09:48 Review of Systems Review of Systems: All systems reviewed & are unremarkable except as noted in HPI and below Exam Const: General: comfortable and no acute distress Other: O2 by NC HENMT: Face/Nose/Sinus: Normal nares present Mouth: Yes moist mucous membranes Eyes: General: appearance normal, both eyes and all related structures Sclera: sclerae normal Pupils: Equal, round and reactive pupils present Neck: Neck: supple Resp: Effort & Inspection: normal respiratory effort Auscultation: clear to auscultation bilaterally Cardio: Rate: regular rate Rhythm: regular rhythm GI: Auscultation: normal bowel sounds Skin: General skin exam: normal color and no rashes or lesions noted Neuro: General: gait normal Cranial nerves: Yes Equal, round and reactive pupils present Speech: normal speech Motor exam (neuro): 5/5 motor strength present throughout Sensory Exam: normal sensation Extrem: General: normal to inspection Psych: Mental Status: mental status grossly normal Affect: normal affect Objective Data Vital Signs Vital Signs: Vital Signs - 24 hr 06/16/25 12:00 06/16/25 16:00 06/16/25 16:00 Temperature 97.8 F Pulse Rate 69 78 93 Respiratory Rate 18 Blood Pressure 114/55 L Pulse Oximetry 93 Oxygen Delivery Nasal Cannula Oxygen Flow Rate 3 06/16/25 20:00 06/17/25 00:00 06/17/25 00:00 Temperature 97.9 F Pulse Rate 80 83 82 Respiratory Rate 18 Blood Pressure 118/54 L Pulse Oximetry 94 Oxygen Delivery Room Air Oxygen Flow Rate 06/17/25 04:00 06/17/25 07:50 06/17/25 09:05 Temperature 97.4 F L Pulse Rate 77 77 77 Respiratory Rate 18 Blood Pressure 114/51 L Pulse Oximetry 92 Oxygen Delivery Nasal Cannula Oxygen Flow Rate 3 Intake/Output Intake/Output: Intake & Output 06/14/25 06/15/25 06/16/25 06/17/25 23:59 23:59 23:59 23:59 Intake Total 2840 240 Output Total 700 Balance 2840 -460 Meds/Results Medications: Active Medications Generic Name Dose Route Start Last Admin Trade Name Freq PRN Reason Stop Dose Admin Acetaminophen 650 mg 06/16/25 01:52 06/17/25 05:06 Acetaminophen 325 Mg Tablet PO 650 mg QID PRN Administration Mild Pain (1-3) or Fever Albuterol/Ipratropium 3 ml 06/15/25 19:20 Ipratropium 0.5 Mg/Albuterol Sulfate 2.5 Mg (Base) Ampul.Neb 3 Ml INHALATION Q6HRT PRN Dyspnea Buspirone HCl 15 mg 06/16/25 07:19 Buspirone Hcl 5 Mg Tablet PO BID PRN Anxiety Clonazepam 1 mg 06/16/25 07:20 06/17/25 09:04 Clonazepam (*Crx) 0.5 Mg Tablet PO 1 mg Q12H ALEX Administration Clopidogrel Bisulfate 75 mg 06/16/25 09:00 06/17/25 09:07 Clopidogrel Bisulfate 75 Mg Tablet PO 75 mg DAILY ALEX Administration Ezetimibe 10 mg 06/16/25 21:00 06/16/25 21:21 Ezetimibe 10 Mg Tablet PO 10 mg HS ALEX Administration Furosemide 20 mg 06/17/25 09:00 Furosemide Inj 20 Mg/2 Ml Vial IV PUSH DAILY ALEX Levofloxacin 500 mg 06/16/25 21:00 06/16/25 21:21 Levofloxacin 500 Mg Tablet PO 500 mg Q24H ALEX Administration Levothyroxine Sodium 112 mcg 06/16/25 08:00 06/17/25 05:06 Levothyroxine Sodium 112 Mcg Tablet PO 112 mcg DAILY@0630 ALEX Administration Magnesium Hydroxide 30 ml 06/15/25 19:20 Magnesium Hydroxide Susp 30 Ml Udc PO DAILY PRN Constipation Mirtazapine 15 mg 06/16/25 09:00 06/17/25 09:06 Mirtazapine 15 Mg Tablet PO 15 mg DAILY ALEX Administration Pantoprazole Sodium 40 mg 06/16/25 09:00 06/17/25 09:06 Pantoprazole 40 Mg Tablet PO 40 mg QAM ALEX Administration Perflutren Lipid Microsphere 0 ml 06/16/25 08:24 Perflutren Lipid Microspheres 1.5 Ml Vial Diluted To 10 Ml Total Volume IV PUSH 06/19/25 08:24 ONCE PRN adequate visualization Protocol Pregabalin 50 mg/ Pregabalin 150 mg 06/16/25 09:00 06/17/25 09:05 100 mg PO 150 mg TID ALEX Administration Propranolol HCl 120 mg 06/16/25 09:00 06/17/25 09:05 Propranolol Hcl 60 Mg Capsule Cr PO 120 mg DAILY ALEX Administration Ropinirole HCl 4 mg 06/16/25 21:00 06/16/25 21:20 Ropinirole Hcl 1 Mg Tablet PO 4 mg HS ALEX Administration Rosuvastatin Calcium 20 mg 06/16/25 09:00 06/17/25 09:07 Rosuvastatin 10 Mg Tablet PO 20 mg DAILY ALEX Administration Fluticasone/Salmeterol 1 puff 06/16/25 09:00 06/17/25 09:09 Salmet Xinaft/Flutic Propin 500 Mcg/50 Mcg Inh Cap INHALATION Not Given Q12HR ALEX Spironolactone 100 mg 06/16/25 09:00 06/17/25 09:07 Spironolactone 25 Mg Tablet PO 100 mg QAM ALEX Administration Tramadol HCl 50 mg 06/16/25 07:19 06/17/25 09:08 Tramadol Hcl (*Crx) 50 Mg Tablet PO 50 mg Q6-8H PRN Administration Pain 4-6 Venlafaxine HCl 150 mg 06/16/25 09:00 06/17/25 09:06 Venlafaxine Hcl Xr 75 Mg Cap.Er.24h PO 150 mg DAILY ALEX Administration Radiology Results: ITS Impressions Head CT 06/15/25 17:04 Impression: 1.No acute intracranial abnormality. Chest X-Ray 06/15/25 18:10 IMPRESSION: 1. Left lung unilateral interstitial pulmonary edema and/or pneumonitis. Chest CTA 06/15/25 18:53 IMPRESSION: 1. No pulmonary embolus. 2. Mild pulmonary edema. Labs Labs: Laboratory Results - last 24 hr 06/17/25 07:15 WBC 4.9 RBC 4.16 L Hgb 12.4 Hct 41.8 MCV 100.5 MCH 29.8 MCHC 29.7 L RDW 14.1 Plt Count 136 L MPV 8.4 L Immature Gran % (Auto) 0.2 H Neut % (Auto) 62.0 Lymph % (Auto) 20.9 [place] % (Auto) 9.7 Eos % (Auto) 6.8 H Baso % (Auto) 0.4 Lymph # (Auto) 1.02 L [place] # (Auto) 0.47 Eos # (Auto) 0.33 Baso # (Auto) 0.02 Abs Immat Gran (auto) 0.01 H Absolute Neuts (auto) 3.02 Absolute Nucleated RBC 0.00 Nucleated RBC % 0.0 Sodium 142 Potassium 4.5 Chloride 95 L Carbon Dioxide > 40 H Anion Gap 6.46771 BUN 10 Creatinine 0.83 Estim Creat Clear Calc 78 Estimated GFR > 60 Glucose 110 Calculated Osmolality 294 Calcium 9.1 Total Bilirubin 0.3 AST 22 ALT 13 Alkaline Phosphatase 64 NT-Pro-B Natriuret Pep 353 H Total Protein 6.0 L Albumin 3.4 L Quality VTE Prophylaxis VTE prophylaxis: mechanical ordered
[2025-06-17] MEDS: FUROSEMIDE INJ 20 MG/2 ML VIAL IV PUSH (14:13)
--- NOTE | 2025-06-17 14:15 | PC.NURSE ---
patient changed to IP status telemetry continues
--- NOTE | 2025-06-17 16:33 | PM.DS ---
DS: Admitting Diagnosis Discharge Date 06/17/2025 Admitting Diagnosis acute on chronic diastolic heart failure DS: Discharge Diagnosis Discharge Diagnosis (1) Acute on chronic diastolic (congestive) heart failure: Code(s): I50.33 - Acute on chronic diastolic (congestive) heart failure Status: Acute Assessment and Plan: last ECHO 01/30/2023 with grade 1 diastolic dysfunction, EF 60-65% patient with pulmonary edema on chest CT patient hypoxic and requiring oxygen by [place] in the ER patient reports she has been holding her home furosemide for the last few weeks as it was stopped by her PCP when she was having diarrhea continue home spironolactone IV furosemide 20 mg daily, switched to PO furosemide on discharge ECHO ordered, unable to complete while inpatient, will need to be done as an outpatient after discharge - discussed with patient low sodium diet repeat CXR with mild CHF, patient weaned off oxygen back to room air patient will follow up with PCP and bowling floor manager after discharge (2) Acute hypoxic respiratory failure: Code(s): J96.01 - Acute respiratory failure with hypoxia Status: Acute Assessment and Plan: patient with o2 sats in the low 80s on room air does not wear oxygen at home suspect due to CHF exacerbation wean oxygen as tolerated d-dimer elevated, CT Chest PE protocol negative for PE, showed pulmonary edema oxygen was weaned and patient tolerating room air (3) UTI (urinary tract infection): Qualifiers: Hematuria presence: without hematuria Urinary tract infection type: site unspecified Qualified Code(s): N39.0 - Urinary tract infection, site not specified Code(s): N39.0 - Urinary tract infection, site not specified Status: Acute Assessment and Plan: UA with 1+ leukocyte esterase, 7-10 wbc's urine culture is pending blood cultures pending patient has a recent history of c-diff infection requiring 2 rounds of PO vancomycin to treat, due to this will hold off on treating UTI unless cultures come back with growth and sensitivities, patient agrees with this plan (4) Confusion: Code(s): R41.0 - Disorientation, unspecified Status: Acute Assessment and Plan: patient with confusion that started Thursday morning at [address] wihtout acute abnormalities check MRI brain to rule out stroke suspect due to UTI vs CVA vs possible TIA Brain MRI showed old infarcts in the cerebellum patient will continue Plavix and Crestor TIA included as possiblity for patients confusion on Thursday (5) Dizziness: Code(s): R42 - Dizziness and giddiness Status: Acute Assessment and Plan: patient reports dizziness since Thursday morning check MRI brain - Shows old infarcts in the cerebelum no associated nausea or vomiting patient reports improved (6) Atrial fibrillation: Code(s): I48.91 - Unspecified atrial fibrillation Status: Acute Assessment and Plan: rate controlled continue propranolol for rate control patient is not on anticoagulation at home discussed with patient to discuss with PCP and bowling floor manager if she needs to be on anticoagulation (7) Peripheral neuropathy: Code(s): G62.9 - Polyneuropathy, unspecified Status: Acute Assessment and Plan: pain control continue Lyrica (8) Restless leg syndrome: Code(s): G25.81 - Restless legs syndrome Status: Acute Assessment and Plan: continue ropinirole (9) Hypertension: Qualifiers: Hypertension type: primary hypertension Qualified Code(s): I10 - Essential (primary) hypertension Code(s): I10 - Essential (primary) hypertension Status: Acute Assessment and Plan: BP stable continue home propranolol per patient request as she reports she takes it for migraine prevention monitor closely (10) Hypothyroid: Qualifiers: Hypothyroidism type: unspecified Qualified Code(s): E03.9 - Hypothyroidism, unspecified Code(s): E03.9 - Hypothyroidism, unspecified Status: Acute Assessment and Plan: continue levothyroxine DS: Summary Hospital Course Reason for hospitalization: confusion Hospital Course: Patient is a 75 year old female with PMH of atrial fibrillation, PARI, fibromyalgia, neuropathy, chronic diastolic heart failure, morbid obesity, hypothyroidism, HTN, DJD, CVA, TIAs, depression, RLS and migraines. Patient presented to the ER with complaints of confusion that started on Thursday at 5 am. Per patient the confusion resolved within a few hours. Patient also reports that she became dizzy and had a headache that has not gone away since Thursday. Patient denied any other acute complaints. Patient reports she was recently treated for c-difficile infection with PO vancomycin x 2 rounds. She reports she completed the medication last Thursday. She reports her diarrhea resolved. The patient went to her PCP yesterday and was sent to the ER for further workup. In the ER the patient was found to be hypoxic and placed on oxygen by [place]. Patient's d-dimer was elevated and she had a chest CTA which was negative for PE but did show pulmonary edema. Patients head CT was negative for acute findings. Patient's UA showed 1+ leukocyte esterase and 7-9 wbc. Patient was started on PO Levaquin, urine culture pending. Patients IV fluids stopped, given 1 dose of IV Lasix 20 mg today. MRI brain ordered and will be completed tomorrow. ECHO ordered but will need to be completed as outpatient. Appointment set up by nurse. PT/OT ordered. Patient was weaned onto room air and was tolerating with o2 saturations > 92%. Patients MRI brain was completed and showed old infarcts in the cerebellum, no acute infarcts. TIA cannot be excluded and patient will continue on home Crestor and Plavix. Patient will discuss with PCP and bowling floor manager if she should be on anticoagulation for her history of atrial fibrillation. Patient was stable and was ready for discharge home. Decision made to not discharge patient on antibiotics for the possible UTI due to patients recent c-diff infection. We will wait for cultures to finalize and if positive we will prescribe antibiotics at that time, patient is in agreement with this plan. Patient was discharged home. Patient will follow up with her PCP and Trimming Operator within 1-2 weeks of discharge. Time Spent with Patient Time attestation: Total time spent providing and/or coordinating discharge services: 35 Minutes DS: Data Data Completed and Pending Labs on day of discharge: Labs from last 24 hours 06/17/25 07:15 WBC 4.9 RBC 4.16 L Hgb 12.4 Hct 41.8 MCV 100.5 MCH 29.8 MCHC 29.7 L RDW 14.1 Plt Count 136 L MPV 8.4 L Immature Gran % (Auto) 0.2 H Neut % (Auto) 62.0 Lymph % (Auto) 20.9 [place] % (Auto) 9.7 Eos % (Auto) 6.8 H Baso % (Auto) 0.4 Lymph # (Auto) 1.02 L [place] # (Auto) 0.47 Eos # (Auto) 0.33 Baso # (Auto) 0.02 Abs Immat Gran (auto) 0.01 H Absolute Neuts (auto) 3.02 Absolute Nucleated RBC 0.00 Nucleated RBC % 0.0 Sodium 142 Potassium 4.5 Chloride 95 L Carbon Dioxide > 40 H Anion Gap 6.55772 BUN 10 Creatinine 0.83 Estim Creat Clear Calc 78 Estimated GFR > 60 Glucose 110 Calculated Osmolality 294 Calcium 9.1 Total Bilirubin 0.3 AST 22 ALT 13 Alkaline Phosphatase 64 NT-Pro-B Natriuret Pep 353 H Total Protein 6.0 L Albumin 3.4 L Imaging Radiologist's impression: Ordering Physician: Chela Rivera APRN Date of Service: 06/17/25 Procedure(s): MR brain/brain stem wo con Accession Number(s): [id number] cc: Cameron Fox MD; Sebastien Sequeira MD; Chela Rievra APRN~ EXAMINATION: MR brain/brain stem wo con DATE: 06/17/2025 14:16 INDICATION: Dizziness. Confusion. TECHNIQUE: Magnetic resonance imaging (MRI) of the brain and brainstem was performed without intravenous contrast. COMPARISON: Brain MRI 05/23/2023, head CT 06/15/2025 FINDINGS: There are small old infarcts in the cerebellum bilaterally. There are scattered areas of nonspecific increased T2-weighted signal intensity in the cerebral white matter, which is within normal limits for the patient's age. There is no intracranial hemorrhage, acute infarction, or abnormal intracranial mass lesion. The ventricles are normal in size. The orbits are normal. There is mild mucosal thickening in the paranasal sinuses. There are small bilateral mastoid effusions. IMPRESSION: 1. Small old infarcts in the cerebellum. Reviewed, dictated and finalized at location E. Discharge Plan Discharge Attending physician on discharge: Kojo Fox Consulting providers: Chela Rivera; Manan Davenport; Guero Valle; Christopher Valdovinos; Bill Albarado V. Discharging Clinician: Chela Rivera Anticipated Discharge Date/Time: 06/17/25 16:45 Patient Disposition: Home Activity: as tolerated Diet: low sodium Discharge Instructions: [facility] Jun [facility] 3[facility] immediately or go to the nearest ER if you experience: Fever over [100.4] Severe pain Shortness of breath Chest pain Confusion? Patient Instructions: Antibiotic Form, Heart Failure (ED), Urinary Tract Infection in Older Adults (DC) Patient Language: [place] Stand Alone Forms: General Discharge Information Follow-up/Referrals: Sebastien Sequeira MD [Primary Care Provider, Internal Medicine] Referral Note: call to make an appointment to be seen within 1-2 weeks of discharge Discharge Medications: Continued furosemide 40 mg tablet 40 mg PO DAILY Patient Comments: thursday, , thursday spironolactone 100 mg tablet 25 mg PO DAILY ropinirole 2 mg tablet 4 mg PO HS ezetimibe 10 mg tablet 10 mg PO HS venlafaxine [Effexor XR] 150 mg capsule,extended release 24hr 150 mg PO DAILY fluticasone furoate-vilanterol [Breo Ellipta] 200-25 mcg/dose blister with device 1 inh inhalation DAILY albuterol sulfate [Ventolin HFA] 90 mcg/actuation HFA aerosol inhaler 2 inh inhalation Q8H PRN (Reason: shortness of breath or wheezing) mirtazapine 15 mg tablet 15 mg PO DAILY pantoprazole 40 mg tablet,delayed release (DR/EC) 40 mg PO QAM clopidogrel 75 mg tablet 75 mg PO DAILY Ozempic 2 mg/dose (8 mg/3 mL) pen injector 2 mg subcut WEEKLY tramadol 50 mg tablet 50 mg PO Q6-8H PRN (Reason: pain) ondansetron 4 mg tablet,disintegrating 4 mg PO TID rosuvastatin 40 mg tablet 20 mg PO DAILY albuterol sulfate 90 mcg/actuation aero powdr breath act w/sensor 1 inh inhalation Q4-6H PRN (Reason: shortness of breath or wheezing) clonazepam [Klonopin] 1 mg tablet 1 mg PO BID Qty: 60 0RF propranolol 120 mg capsule,extended release 24hr 120 mg PO DAILY pregabalin 150 mg capsule 150 mg PO TID buspirone 15 mg tablet 15 mg PO BID PRN (Reason: Anxiety) levothyroxine 112 mcg capsule 112.5 mcg PO DAILY Qty: 30 0RF Rx Instructions: Take levothyroxine 112.5 mcg capsule PO daily for hypothyroidism. Discontinued furosemide [Lasix] 40 mg tablet 40 mg PO DAILY clonazepam [Klonopin] 1 mg tablet 1 mg PO Q12H Ozempic 1 mg/dose (4 mg/3 mL) pen injector 2 mg subcut WEEKLY Date of admission: 06/17/25 12:41 Primary Care Provider: Sebastien Sequeira Admitting Provider: Kojo Fox Attending physician on admission: Kojo Fox Condition: Stable Quality VTE Prophylaxis VTE prophylaxis: mechanical ordered
--- NOTE | 2025-06-17 18:20 | PC.NURSE ---
Patient discharging home. IV site removed, tip intact. Dressing applied to site. All belongings gathered together and sent home with patient. All discharge instructions and education reviewed with patient. Patient denies any questions. This nurse accompanied patient to front door via wheelchair. Patient left in private vehicle with .
--- NOTE | 2025-06-20 10:57 | PC.NURSE ---
Discharge f/u call #1, message left to call back at [phone].
--- NOTE | 2025-06-20 11:18 | PC.NURSE ---
Gilma returned f/u phone call. She states that everyone was wonderful on all three shifts, denies questions, understood medications. Gilma said her one comment would be that we need wider commodes and bathrooms. Reassured Gilma that her comments will be expressed to administration.
== END 2025-06-17 18:20 | disposition home or self-care (01) | DRG 291 ==
LOC: CHSED 19:14 → CHS2ND 19:55
PROVIDERS: Nurse Practitioner Adult Health; Admitting Provider Internal Medicine; Emergency Provider Emergency Medicine; PCP Internal Medicine; Visit Provider Internal Medicine
DX: I11.0 Hypertensive heart disease with heart failure (principal); I50.33 Acute on chronic diastolic (congestive) heart failure; J96.01 Acute respiratory failure with hypoxia; N39.0 Urinary tract infection, site not specified; R41.0 Disorientation, unspecified; R42 Dizziness and giddiness; I48.91 Unspecified atrial fibrillation; G62.9 Polyneuropathy, unspecified; G25.81 Restless legs syndrome; E03.9 Hypothyroidism, unspecified; E66.01 Morbid (severe) obesity due to excess calories; G47.33 Obstructive sleep apnea (adult) (pediatric); Z86.73 Personal history of transient ischemic attack (TIA), and cerebral infarction without residual deficits; F32.A Depression, unspecified
CPT/HCPCS: 36415; 70450; 70551; 71045; 71046; 71275; 80053; 81001; 83605; 83880; 84443; 84484; 85025; 85380; 85610; 85730; 87040; 87086; 87637; 93005; 96361; 96374; 96375; 97161; 97165; 97530; 99285; A9270; G0378; J1938; J2270; J2405; J7030; Q9967

== ENCOUNTER 2025-08-10 19:43 | Emergency (ER) | payer MEDICARE, SELFPAY ==
--- NOTE | ~2025-08-10 | XR_ITS ---
Examination: XR tibia fibula RT 2V, XR hip RT 2V w AP pelvis, XR femur RT min 2V Clinical History: fall, pain, hx replacement Comparison: None Technique: AP pelvis, 2 views right hip 2 views right femur 4 films 2 views right tibia fibula 4 films Findings/impression: Right hip: 1. Right hip prosthesis intact without fracture or dislocation. 2. No pelvic fracture identified. Right femur: 1. Displaced oblique fracture distal femur. Fracture line abutting superior element of prosthesis. 2. Hemarthrosis. 3. Proximal femur are intact. Right tibia-fibula: 1. No fracture or other acute abnormality of right tibia or fibula. Reviewed, dictated and finalized at location [facility]
[2025-08-10 19:45] VITALS: BP 146/89; PULSE 74; RESP 22; TEMP 36.9; O2SAT 94
[2025-08-10 20:00] VITALS: BP 125/86; PULSE 76; RESP 18; O2SAT 98
--- NOTE | 2025-08-10 20:06 | ED.LOWEXIN ---
HPI - Extremity Injury (Lower) General Chief Complaint: Extremity Injury, Lower Stated Complaint: R KNEE PAIN S/P FALL Time Seen by Provider: 08/10/25 19:44 History of Present Illness HPI Narrative: 75-year-old female with history of prior CVA, AFib not on anticoagulation besides Plavix. Patient presents to the emergency department today after mechanical fall at home. Patient was in the kitchen making waffles when she turned suddenly and fell towards the right side. She landed on her right knee and having significant pain in her right knee, femur and tib-fib region. She has had previous hip and knee replacements. Denies any recent surgeries. She was not able to get off the ground secondary to the pain. Did not hit her head or lose consciousness. Denies any pain anywhere besides the right lower extremity. Full range of motion of the ankle but having pain when she moves the right right knee up. Patient is morbidly obese. She was given fentanyl EN route by EMS that improved the pain to 5/10. States she still uncomfortable. Denies any new paresthesias but does have a history of peripheral neuropathy. No weakness. Was otherwise in her normal state of health. No preceding symptoms. No chest pain, headache, vision changes, neck pain, nausea, vomiting abdominal pain, shortness of breath, loss of consciousness. Related Data Home Medications ?Medication ?Instructions ?Recorded ?Confirmed ?Last Taken ?Type ezetimibe 10 mg tablet 10 mg PO HS 03/22/20 06/15/25 06/15/25 History furosemide 40 mg tablet 40 mg PO DAILY 03/22/20 06/15/25 05/09/25 History ropinirole 2 mg tablet 4 mg PO HS 03/22/20 06/15/25 06/15/25 History spironolactone 100 mg tablet 25 mg PO DAILY 03/22/20 06/15/25 06/15/25 History pregabalin 150 mg capsule 150 mg PO TID 01/29/23 06/15/25 06/15/25 History buspirone 15 mg tablet 15 mg PO BID PRN Anxiety 03/05/23 06/15/25 06/15/25 History albuterol sulfate 90 mcg/actuation 1 inh inhalation Q4-6H PRN 11/12/23 06/15/25 05/09/25 History breath activated powder shortness of breath or wheezing inhaler,sensor propranolol 120 mg capsule,24 120 mg PO DAILY 01/25/24 06/15/25 06/15/25 History hr,extended release albuterol sulfate 90 mcg/actuation 2 inh inhalation Q8H PRN shortness 05/09/25 06/15/25 05/09/25 History aerosol inhaler (Ventolin HFA) of breath or wheezing clopidogrel 75 mg tablet 75 mg PO DAILY 05/09/25 06/15/25 06/15/25 History fluticasone furoate 200 1 inh inhalation DAILY 05/09/25 06/15/25 05/09/25 History mcg-vilanterol 25 mcg/dose inhalation powder (Breo Ellipta) mirtazapine 15 mg tablet 15 mg PO DAILY 05/09/25 06/15/25 06/15/25 History ondansetron 4 mg disintegrating 4 mg PO TID 05/09/25 06/15/25 05/09/25 History tablet pantoprazole 40 mg tablet,delayed 40 mg PO QAM 05/09/25 06/15/25 06/15/25 History release rosuvastatin 40 mg tablet 20 mg PO DAILY 05/09/25 06/15/25 06/15/25 History semaglutide 2 mg/dose (8 mg/3 mL) 2 mg subcut WEEKLY 05/09/25 06/15/25 Unknown History subcutaneous pen injector (Ozempic) tramadol 50 mg tablet 50 mg PO Q6-8H PRN pain 05/09/25 06/15/25 05/09/25 History venlafaxine 150 mg 150 mg PO DAILY 05/09/25 06/15/25 06/15/25 History capsule,extended release 24 hr (Effexor XR) Allergies Allergy/AdvReac Type Severity Reaction Status Date / Time adhesive Allergy Intermediate RASH Verified 06/15/25 16:30 alendronate sodium Allergy Mild STOMACH Verified 06/15/25 16:30 PAIN bupropion (From Contrave) Allergy Mild Dizziness Verified 06/15/25 16:30 naltrexone (From Contrave) Allergy Mild Dizziness Verified 06/15/25 16:30 pravastatin Allergy Mild myalgia Verified 06/15/25 16:30 simvastatin Allergy Mild myalgia Verified 06/15/25 16:30 topiramate Allergy Mild Confusion Verified 06/15/25 16:30 atorvastatin Allergy Unknown Unknown Verified 06/15/25 16:30 erythromycin base Allergy Unknown Nausea and Verified 06/15/25 16:30 Vomiting naproxen Allergy Unknown Unknown Verified 06/15/25 16:30 tizanidine Allergy Unknown Unknown Verified 06/15/25 16:30 cefdinir (From Omnicef) AdvReac Unknown Rash Verified 06/15/25 16:30 Review of Systems Review of Systems: As reviewed above in [facility] Past Medical History Medical History Atrial fibrillation Cubital tunnel syndrome, bilateral Bilateral carpal tunnel syndrome Obstructive sleep apnea syndrome in adult Fibromyalgia Numbness in both hands Peripheral neuropathy Diastolic dysfunction On echocardiogram in April 2021. Morbid obesity Mitral valve prolapse Primary stress urinary incontinence Hypothyroidism Hypertension Degenerative joint disease Cerebrovascular accident Depression Restless leg syndrome Functional bowel disorder Migraine Surgical History Surgical History S/P foot surgery, right H/O spinal fusion History of shoulder surgery History of bilateral knee arthroplasty (2007) History of hysterectomy (1996) Family History Family History Mother Breast cancer Father Chronic obstructive pulmonary disease Sibling Breast cancer Multiple sclerosis Dementia Sibling Lung cancer Social History Social History Social History: Surrogate medical decision maker: Hayden Mills, spouse. Code status: Full code. Smoking status: Never smoker Second hand tobacco smoke exposure: No Alcohol intake: never Drinks per week: 0 Substance use: never Substance use type: does not use Lack of Transportation: No Lack of Food: Never True Current Housing: I Have Housing Concerned About Future Housing: No Difficulty Paying Gas/Electric Bills: No Difficulty Paying for Meds: No Currently Unemployed: No Education: Associate Degree Difficulty w/ Childcare or Family Care: No Additional living arrangements comments: Lives with in [place]. 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 Mucous membranes moist. NECK: Supple. CHEST: [Clear to auscultation. No respiratory distress.] HEART: [Regular rate and rhythm]. No murmur heard. [Normal peripheral pulses.] ABDOMEN: [Soft, nondistended], [nontender], [No rigidity or guarding] EXTREMITIES: Tenderness to palpation around the right knee and distal femur/proximal tib-fib region but no obvious step-offs deformities. Plantar and dorsiflexion of the ankle full strength, no pain at the hip a or any obvious step-offs the hip or ankle. No other injuries. SKIN: Warm, dry, no rash. NEURO: [No focal deficits]. Alert and oriented [x3.] PSYCH: [Normal mood and affect.] Course Vital Signs Vital signs: Vital Signs Temperature 36.9 C 08/10/25 19:45 Pulse Rate 74 08/10/25 19:45 Respiratory Rate 22 H 08/10/25 19:45 Blood Pressure 146/89 H 08/10/25 19:45 Pulse Oximetry 94 08/10/25 19:45 Oxygen Delivery Nasal Cannula 08/10/25 19:45 Oxygen Flow Rate 2 08/10/25 19:45 Temperature 37.1 C 08/10/25 23:13 Pulse Rate 87 08/10/25 23:13 Respiratory Rate 18 08/10/25 23:13 Blood Pressure 154/72 H 08/10/25 23:13 Pulse Oximetry 93 08/10/25 23:13 Oxygen Delivery Nasal Cannula 08/10/25 19:45 Oxygen Flow Rate 2 08/10/25 19:45 MDM - Extremity Injury (Lower) MDM Narrative Medical decision making narrative: 75-year-old female with history of prior CVA, AFib not on anticoagulation besides Plavix. Patient presents to the emergency department today after mechanical fall at home. Patient was in the kitchen making waffles when she turned suddenly and fell towards the right side. She landed on her right knee and having significant pain in her right knee, femur and tib-fib region. She has had previous hip and knee replacements. Denies any recent surgeries. She was not able to get off the ground secondary to the pain. Did not hit her head or lose consciousness. Denies any pain anywhere besides the right lower extremity. Full range of motion of the ankle but having pain when she moves the right right knee up. Patient is morbidly obese. She was given fentanyl EN route by EMS that improved the pain to 5/10. States she still uncomfortable. Denies any new paresthesias but does have a history of peripheral neuropathy. No weakness. Was otherwise in her normal state of health. No preceding symptoms. No chest pain, headache, vision changes, neck pain, nausea, vomiting abdominal pain, shortness of breath, loss of consciousness. Tenderness to palpation around the right knee and distal femur/proximal tib-fib region but no obvious step-offs deformities. Plantar and dorsiflexion of the ankle full strength, no pain at the hip a or any obvious step-offs the hip or ankle. No other injuries. Suspect musculoskeletal contusion versus periprosthetic fracture versus less likely dislocation. X-rays of the knee, femur and tib-fib were obtained. She was given fentanyl for analgesia and placed on radiation monitor and laboratory studies were ordered. X-rays were independently reviewed and I do appreciate a periprosthetic fracture in the distal right femur. Possible hardware involvement as well with some displacement. Hip and tib-fib look appropriate without any displacement of her prior hardware. Spoke to Dr. Kauffman over the phone from Orthopedics who recommended transfer for higher level of care and orthopedics evaluation with periprosthetic fracture and need for interventions. Spoke to the [facility] transfer system which was the preferred side after talking to the family members. Spoke to orthopedics physician Dr. Encarnacion who after conversing with their care team and prostatic team recommended ER to ER transfer at [facility]. Accepting physician Dr. Juarez. Patient is hemodynamically stable and comfortable at this time. Oxygen currently 97% on room air. She does require intermittent 2 L nasal cannula with movement which is chronic for her secondary to her CHF history. Ambulance services arranged I spoke to the family members in the patient on plan of care for transfer to [facility]. Laboratory studies are unremarkable and she remains stable for transfer Medical Records Attestation: I reviewed the patient's medical records. Lab Data Attestation: I reviewed the patient's lab results. 08/10/25 20:13 08/10/25 20:13 Labs: Lab Results 08/10/25 Range/Units 20:13 WBC 6.2 (4.5-10.0) K/mm3 RBC 4.60 (4.2-5.4) M/mm3 Hgb 13.8 (12.0-15.0) g/dL Hct 44.2 (37.0-47.0) % MCV 96.1 (80-100) fl MCH 30.0 (26-34) pg MCHC 31.2 L (32-36) g/dl RDW 14.0 (11.5-14.5) % Plt Count 144 L (150-375) k/mm3 MPV 8.8 (7.4-10.4) fl Immature Gran % (Auto) 0.3 (0-0.5) % Neut % (Auto) 61.1 (45.5-73.1) % Lymph % (Auto) 23.5 (18.3-44.2) % [place] % (Auto) 9.7 H (2.6-8.5) % Eos % (Auto) 4.9 H (0-4.4) % Baso % (Auto) 0.5 (0.2-1.2) % Lymph # (Auto) 1.45 (0.9-3.2) K/mm3 [place] # (Auto) 0.6 (0.1-0.6) K/mm3 Eos # (Auto) 0.3 (0-0.3) K/mm3 Baso # (Auto) 0.0 (0.0-0.1) K/mm3 Abs Immat Gran (auto) 0.02 (0.00-0.031) K/mm3 Absolute Neuts (auto) 3.8 (1.3-6.7) K/mm3 Absolute Nucleated RBC 0.000 (0.0-0.012) K/mm3 Nucleated RBC % 0.0 (0.0-0.2) % PT 13.2 (11.1-14.7) Seconds INR 1.0 APTT 26.7 (22.3-36.8) Seconds Sodium 139 (137-145) mmol/L Potassium 4.2 (3.4-5.0) mmol/L Chloride 101 (98-107) mmol/L Carbon Dioxide 36 H (22-30) mmol/L Anion Gap 2 L (4-12) mmol/L BUN 16 (7-17) mg/dL Creatinine 0.84 (0.7-1.0) mg/dL Estim Creat Clear Calc 73 ml/min Estimated GFR > 60 (59 - ) Glucose 98 (65-110) mg/dL Calcium 9.0 (8.4-10.2) mg/dL Magnesium 2.2 (1.6-2.3) mg/dL Total Bilirubin 0.4 (0.2-1.3) mg/dL AST 31 (14-36) U/L ALT 19 (6-35) U/L Alkaline Phosphatase 72 (38-126) U/L Total Protein 6.9 (6.3-8.2) g/dL Albumin 3.8 (3.5-5.1) g/dL Blood Type B Positive Antibody Screen Negative Imaging Data Attestation: I personally reviewed and interpreted this imaging study as follows: My impression: Periprosthetic right femur fracture distally, angulated and displaced. No acute hip fracture or tib-fib anomaly. Discharge Plan Discharge Clinical Impression: Periprosthetic fracture around internal prosthetic knee joint, Fracture of distal end of femur, Ground-level fall Patient Disposition: Acute Care Hospital Condition: Stable Patient Language: Andorran Prescriptions: No Action furosemide 40 mg tablet 40 mg PO DAILY Patient Comments: thursday, , thursday spironolactone 100 mg tablet 25 mg PO DAILY ropinirole 2 mg tablet 4 mg PO HS ezetimibe 10 mg tablet 10 mg PO HS venlafaxine [Effexor XR] 150 mg capsule,extended release 24hr 150 mg PO DAILY fluticasone furoate-vilanterol [Breo Ellipta] 200-25 mcg/dose blister with device 1 inh inhalation DAILY albuterol sulfate [Ventolin HFA] 90 mcg/actuation HFA aerosol inhaler 2 inh inhalation Q8H PRN (Reason: shortness of breath or wheezing) mirtazapine 15 mg tablet 15 mg PO DAILY pantoprazole 40 mg tablet,delayed release (DR/EC) 40 mg PO QAM clopidogrel 75 mg tablet 75 mg PO DAILY Ozempic 2 mg/dose (8 mg/3 mL) pen injector 2 mg subcut WEEKLY tramadol 50 mg tablet 50 mg PO Q6-8H PRN (Reason: pain) ondansetron 4 mg tablet,disintegrating 4 mg PO TID rosuvastatin 40 mg tablet 20 mg PO DAILY albuterol sulfate 90 mcg/actuation aero powdr breath act w/sensor 1 inh inhalation Q4-6H PRN (Reason: shortness of breath or wheezing) clonazepam [Klonopin] 1 mg tablet 1 mg PO BID Qty: 60 0RF propranolol 120 mg capsule,extended release 24hr 120 mg PO DAILY pregabalin 150 mg capsule 150 mg PO TID buspirone 15 mg tablet 15 mg PO BID PRN (Reason: Anxiety) levothyroxine 112 mcg capsule 112.5 mcg PO DAILY Qty: 30 0RF Rx Instructions: Take levothyroxine 112.5 mcg capsule PO daily for hypothyroidism. Follow-up/Referrals: Sebastien Sequeira MD [Primary Care Provider, Internal Medicine] Time of Disposition: 23:30
[2025-08-10] MEDS: fentaNYL CITRATE INJ (*CRX) 100 MCG/2 ML VIAL 50 MCG IV PUSH ×2 (20:07→22:37)
[2025-08-10 20:21] LABS: Hematocrit 44.2 % (37.0-47.0); Hemoglobin 13.8 g/dL (12.0-15.0); Immature Granulocyte Percent A 0.3 % (0-0.5); Lymphocytes Absolute Auto 1.45 K/mm3 (0.9-3.2); Mean Corpuscular HGB Conc 31.2 g/dl (32-36); Mean Corpuscular Hemoglobin 30.0 pg (26-34); Mean Corpuscular Volume 96.1 fl (80-100); Nucleated Red Blood Cells Absolute Auto 0.000 K/mm3 (0.0-0.012); Nucleated Red Blood Cells Perc 0.0 % (0.0-0.2); Platelet Count Result 144 k/mm3 (150-375); Red Blood Count 4.60 M/mm3 (4.2-5.4); White Blood Count 6.2 K/mm3 (4.5-10.0)
[2025-08-10 20:30] VITALS: BP 155/78; PULSE 82; RESP 20; O2SAT 96
[2025-08-10 20:34] LABS: Alanine Aminotransferase 19 U/L (6-35); Albumin Level 3.8 g/dL (3.5-5.1); Alkaline Phosphatase 72 U/L (38-126); Anion Gap 2 mmol/L (4-12); Aspartate Amino Transferase 31 U/L (14-36); Bilirubin,Total 0.4 mg/dL (0.2-1.3); Blood Urea Nitrogen 16 mg/dL (7-17); Calcium 9.0 mg/dL (8.4-10.2); Carbon Dioxide 36 mmol/L (22-30); Chloride 101 mmol/L (98-107); Estimated CRCL calculation 73 ml/min; Estimated Glomerular Filt Rate > 60; Glucose 98 mg/dL (65-110); Magnesium 2.2 mg/dL (1.6-2.3); Potassium 4.2 mmol/L (3.4-5.0); Sodium 139 mmol/L (137-145); Total Protein 6.9 g/dL (6.3-8.2)
[2025-08-10 20:49] LABS: INR 1.0; Prothrombin Time 13.2 Seconds (11.1-14.7)
[2025-08-10 20:50] LABS: Partial Thromboplastin Time 26.7 Seconds (22.3-36.8)
[2025-08-10 21:00] VITALS: BP 153/76; PULSE 85; RESP 20; O2SAT 98
[2025-08-10 23:13] VITALS: BP 154/72; PULSE 87; RESP 18; TEMP 37.1; O2SAT 93
== END 2025-08-10 23:50 | disposition short-term general hospital (02) ==
PROVIDERS: Emergency Provider Student in an Organized Health Care Education/Training Program; PCP Internal Medicine
DX: S72.401A Unspecified fracture of lower end of right femur, initial encounter for closed fracture (principal); M97.11XA Periprosthetic fracture around internal prosthetic right knee joint, initial encounter; I48.91 Unspecified atrial fibrillation; I11.9 Hypertensive heart disease without heart failure; I34.1 Nonrheumatic mitral (valve) prolapse; E66.01 Morbid (severe) obesity due to excess calories; Z68.42 Body mass index [BMI] 45.0-49.9, adult; G47.33 Obstructive sleep apnea (adult) (pediatric); G62.9 Polyneuropathy, unspecified; G25.81 Restless legs syndrome; N39.3 Stress incontinence (female) (male); M79.7 Fibromyalgia; Z98.1 Arthrodesis status; Z96.653 Presence of artificial knee joint, bilateral; Z96.641 Presence of right artificial hip joint; Z86.73 Personal history of transient ischemic attack (TIA), and cerebral infarction without residual deficits; Z90.710 Acquired absence of both cervix and uterus; Z79.02 Long term (current) use of antithrombotics/antiplatelets; Z79.85 Long-term (current) use of injectable non-insulin antidiabetic drugs; Z79.899 Other long term (current) drug therapy; W18.39XA Other fall on same level, initial encounter
CPT/HCPCS: 36415; 73502; 73552; 73590; 80053; 83735; 85025; 85610; 85730; 86850; 86900; 86901; 96374; 96376; 99284; J3010

== ENCOUNTER 2025-09-12 12:27 | Outpatient (CLI) | payer MEDICARE, SELFPAY ==
--- NOTE | ~2025-09-12 | MM_ITS ---
upside down EXAMINATION: MM screening jf BI w linnette HISTORY: SCREENING TECHNIQUE: Craniocaudal and mediolateral oblique 3-D tomosynthesis images were obtained and synthetic 2-D images were generated. CAD analysis was submitted and interpreted. COMPARISON: 2023, 2022, and 2021. BREAST PARENCHYMAL COMPOSITION: The breast tissue is heterogeneously dense, which may obscure small masses. FINDINGS: There are findings consistent with the known breast cysts. No suspicious masses are seen. There are no suspicious calcifications. No unexplained architectural distortion is seen. There are no skin or nipple abnormalities identified. There is no adenopathy seen on the images submitted. IMPRESSION: No mammographic evidence to suggest malignancy is seen. The patient may return to screening mammography as per ACR guidelines. BI-RADS 2 - Benign. Reviewed, dictated and finalized at location C. 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
--- OUTSIDE RECORDS SUMMARY | 2025-09-12 12:45 | XMS_ITS | Encounter Summary ---
Author Organization [facility] Address [address] [place] [address] Care Team Providers Care Engineer Internship Name Role Phone Sebastien Sequeira MD Primary Care Provider [phone] Encounter Details Date Type Department Care Team (Late st Contact Info) Description 12/10/2023 [employer] Message Enc [facility] [place] [id number] Adele Garcia, [facility] [address] [place] [id number] Visit Follow Up Social History Tobacco Use [...] on filedocumented in this encounter Care Teams Engineer Internship Relationship Specialty Start Date End Date Sebastien Sequeira MD [address] [place] [address] PCP - General INTERNAL MEDICINE 08/02/20 documented as of this encounter
--- OUTSIDE RECORDS SUMMARY | 2025-09-12 12:45 | XMS_ITS | Encounter Summary ---
Author Organization [facility] Address [facility] [place] [address] Care Team Providers Care Panel Gluer Name Role Phone Sebastien Sequeira MD Primary Care Provider [phone] Encounter Details Date Type Department Care Team (Late st Contact Info) Description 12/10/2021 [employer] Message Enc [facility] [address], [address] [address] Gustavo So MD [address] [place], [place] [phone] Visit Follow Up Social History Tobacco Use [...] on filedocumented in this encounter Care Teams Panel Gluer Relationship Specialty Start Date End Date Sebastien Sequeira MD [address] [place] [address] PCP - General INTERNAL MEDICINE 08/02/20 documented as of this encounter
--- OUTSIDE RECORDS SUMMARY | 2025-09-12 12:45 | XMS_ITS | Encounter Summary ---
Author Organization [facility] Address 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
--- OUTSIDE RECORDS SUMMARY | 2025-09-12 12:45 | XMS_ITS ---
Author Organization Unknown Address [address] [place] [phone] Phone Care Team Providers Care Guide Alpine Name Role Phone RONA Moss Attending Unavailable CAMILLESAMMY DOUGLAS Primary Unavailable Results UPPER WO KUB AIR CONTRAST - Completed: 08/02/2025 11:49 LOINC: \TM00\\12PI\\DRAo\\BM09\ \MRHo\ [address] [address] ---------NAME--------- NUMBER SEX AGE ADMIT DISC. XRAY# F/C TYPE JOSELYN Henley [id number] F 75 08/02/25 08/02/25 [id number] [id number] O/P DATE OF : 1950 M/R# [id number] PH#: [phone] [facility] LOCATION: TRANSCRIBED: 08/02/25 13:42 UPPER WO KUB AIR CONTRAST [id number] COMPLETED:08/02/25 11:49 JDF [id number] {REASON-ESO/UGI/SB: NAUSEA PHYSICIAN: QUICKSHONA R A D I O L O G Y R E P O R T EXAM: UPPER WO KUB AIR CONTRAST HISTORY: NAUSEA 75-year-old female with nausea, vomiting, indigestion. COMPARISON: None TECHNIQUE: Fluoroscopic examination of the esophagus, stomach, and duodenum were performed using single contrast technique. The patient swallowed thin liquid barium. The esophagus was evaluated with the patient in the upright position on the fluoro table. The stomach and duodenum were evaluated with the patient in horizontal position on the fluoro table. Fluoro time: 1.1; this fluoroscopy tower does not have the ability to calculate radiation dose. FINDINGS: No esophageal diverticula, strictures, ulcerations, varices or intraluminal filling defects are identified. There are mild distal esophageal tertiary contractions. There is occasional mild reverse peristalsis in the mid to distal esophagus. There is a very small sliding hiatal hernia. Contrast flows readily into the stomach. No masses, mucosal abnormalities, or ulcerations are identified in the stomach or duodenum. IMPRESSION: 1. Mild distal esophageal tertiary contractions and occasional mild reverse peristalsis in the mid to distal esophagus. Otherwise normal fluoroscopic appearance of the esophagus. 2. Normal fluoroscopic appearance of the stomach and duodenum. DREN TEACHER \ITLo\ \UNDo\ \UNDx\ \ITLx\ Reviewed and Electronically Signed by: Michele Ellis MD Signed Date: 08/02/25 13:42 [email or web address] CAMILLE KUNZ via fax Social History Type Status Start Date End Date Code Code Syst em Sex Female Hospital Discharge Instructions Should you have any questions prior to discharge, please contact a member of your healthcare team. If you have left the hospital and have any questions, please contact your primary care physician. Reason For Referral No Data Found Plan of Treatment Upper WO KUB Air Contrast 08/02/2025 Encounters Encounter Diagnosis Start Date Code Code Sys tem Visible peristalsis 08/02/2025 SNOMED-C T Personal Care Team Section Performer Name Performer Role Active Date Inactive STELLA Piña PCP - Primary care physician 2025-07-10 Imaging Narrative Notes [facility] 08/02/2025 13:45 [facility] [address] [place] [address] ---------NAME--------- NUMBER SEX AGE ADMIT DISC. XRAY# F/C TYPE JOSELYN Henley [id number] F 75 08/02/25 08/02/25 [id number] MB7 O/P DATE OF : 1950 M/R# [id number] #: [id number] RM LOCATION: TRANSCRIBED: 08/02/25 13:42 UPPER WO KUB AIR CONTRAST [id number] COMPLETED:08/02/25 11:49 [facility] [id number] {REASON-ESO/UGI/SB: NAUSEA PHYSICIAN: QUICKSHONA RADIOLOGY REPORT EXAM: UPPER WO KUB AIR CONTRAST HISTORY: NAUSEA 75-year-old female with nausea, vomiting, indigestion. COMPARISON: None TECHNIQUE: Fluoroscopic examination of the esophagus, stomach, and duodenum were performed using single contrast technique. The patient swallowed thin liquid barium. The esophagus was evaluated with the patient in the upright position on the fluoro table. The stomach and duodenum were evaluated with the patient in horizontal position on the fluoro table. Fluoro time: 1.1; this fluoroscopy tower does not have the ability to calculate radiation dose. FINDINGS: No esophageal diverticula, strictures, ulcerations, varices or intraluminal filling defects are identified. There are mild distal esophageal tertiary contractions. There is occasional mild reverse peristalsis in the mid to distal esophagus. There is a very small sliding hiatal hernia. Contrast flows readily into the stomach. No masses, mucosal abnormalities, or ulcerations are identified in the stomach or duodenum. IMPRESSION: 1. Mild distal esophageal tertiary contractions and occasional mild reverse peristalsis in the mid to distal esophagus. Otherwise normal fluoroscopic appearance of the esophagus. 2. Normal fluoroscopic appearance of the stomach and duodenum. DREN TEACHER Reviewed and Electronically Signed by: Michele Ellis MD Signed Date: 08/02/25 13:42 [email or web address] CAMILLE KUNZ via fax
--- OUTSIDE RECORDS SUMMARY | 2025-09-12 12:45 | XMS_ITS | Clinical Summary ---
Author Organization [facility] Address [address] [place] [address] Care Team Providers Care Roll Mill Operator Name Role Phone Sebastien Sequeira MD Primary Care Provider [phone] Allergies Active Allergy Reactions Criticality Noted Date [...] drink = 0.6 oz pur e alcohol) [facility] Utilities Answer Date Recorded In the [...] time in the past 12 m [facility], were you homeless or living in a group home (including now)? No 03/31/2024 Comments No Sex and Gender Information Value Date Recorded Sex Assigned at Not on file Legal Sex Female 2:03 AM CDT Gender Identity Not on file Sexual Orientation Not on file Last Filed Vital Signs Vital Sign Reading Time Taken Comments Blood Pressure 129/73 09/01/2024 10:26 AM SOLID TIRE FINISHER Pulse 77 09/01/2024 10:26 AM SOLID TIRE FINISHER Temperature 36 C (96.8 F) 09/01/2024 10:26 AM SOLID TIRE FINISHER Respiratory Rate 18 09/01/2024 10:26 AM SOLID TIRE FINISHER Oxygen Saturation 95% 09/01/2024 10:26 AM SOLID TIRE FINISHER Inhaled Oxygen Concentration - - Weight 131.5 kg (290 lb) 09/01/2024 7:05 AM SOLID TIRE FINISHER Height 172.7 cm (5' 8) 09/01/2024 7:05 AM SOLID TIRE FINISHER Body Mass Index 44.09 09/01/2024 7:05 AM SOLID TIRE FINISHER Plan of Treatment Health Maintenance Due Date [...] Vaccine: 50+ Years (2 of 2 - PCV20 or PCV21) 08/23/2017 08/23/2016 COVID-19 Vaccine (3 - 2024-2 6 season) 2025 11/23/2020, 11/02/2020 Influenza Adult (#1) 2025 06/23/2020, 1950 Hepatitis A Vaccines Aged Out No long er eligible based on patient's age to complete this topic Meningococcal B Vaccine Aged Out No l [...] on safety. Medical Devices Implanted Type Area Box Bender Device Identifier Shelf Expiration Date Model / Serial / Lot Cement Bone 03/07 Fast Set Depuy - [id number] Implanted:Qty: 1 on 03/31/2024 by Cameron Avery MD at [facility] Cement Implant Left: Shoulder DEPUY 07/14/2025 [id number] / / Cup Hip Acetabular Depuy 52mm - [id number] Implanted:Qty: 1 on 08/13/2020 by Gustavo So MD at [facility] Hip Components Left: Hip DEPUY 11/11/2029 [id number] / / [id number] Stem Hip Depuy Tapered - [id number] Implanted:Qty: 1 on 08/13/2020 by Gustavo So MD at [facility] Hip Components Left: Hip DEPUY 01/11/2030 [id number] / / [id number] Head Depuy Femoral Articuleze 36mm +8.5 - [id number] Implanted:Qty: 1 on 08/13/2020 by Gustavo So MD at [facility] Hip Components Left: Hip DEPUY 07/14/2024 [id number] / / [id number] Liner Depuy Acet Altrx +4 10d 36 X 52 - [id number] Implanted:Qty: 1 on 11/19/2020 by Gustavo So MD at [facility] Hip Components Right: Hip DEPUY [id number] 07/14/2025 [id number] / / [id number] Stem Hip Depuy Tapered - [id number] Implanted:Qty: 1 on 11/19/2020 by Gustavo So MD at [facility] Hip Components Right: Hip DEPUY [id number] 06/13/2030 [id number] / / [id number] Stem Humeral 120mm 12mm Modular Global Unite [place] Standard Shoulder Sterile Platform Arthroplasty System - [id number] Implanted:Qty: 1 on 06/24/2021 by Gustavo So MD at [facility] Humeral Right: Shoulder DEPUY [id number] 02/11/2031 [id number] / / [id number] Cup Humeral Standard Delta Xtend Depuy - [id number] Implanted:Qty: 1 on 06/24/2021 by Gustavo So MD at [facility] Humeral Right: Shoulder DEPUY [id number] 03/13/2026 [id number] / / [id number] Spacer Humeral Depuy 9mm - [id number] Implanted:Qty: 1 on 06/24/2021 by Gustavo So MD at [facility] Humeral Right: Shoulder DEPUY [id number] 10/14/2024 [id number] / / [id number] Screw Depuy Cancellous Bone 6.5mm X 30mm - [id number] Implanted:Qty: 1 on 11/19/2020 by Gustavo So MD at [facility] Screw Right: Hip DEPUY [id number] 08/13/2030 [id number] / / [id number] Screw Locking Depuy Delta Xtend Lg 30mm - [id number] Implanted:Qty: 1 on 06/24/2021 by Gustavo So MD at [facility] Screw Right: Shoulder DEPUY [id number] 02/11/2026 [id number] / / [id number] Screw Locking Depuy Delta Xtend Lg 36mm - [id number] Implanted:Qty: 1 on 06/24/2021 by Gustavo So MD at [facility] Screw Right: Shoulder DEPUY [id number] 01/11/2026 [id number] / / [id number] Screw Locking Depuy Delta Xtend Lg 30mm - [id number] Implanted:Qty: 1 on 06/24/2021 by Gustavo So MD at [facility] Screw Right: Shoulder DEPUY [id number] 12/12/2025 [id number] / / [id number] Screw Non Locking Depuy Delta Xtend Lg 18mm - [id number] Implanted:Qty: 1 on 06/24/2021 by Gustavo So MD at [facility] Screw Right: Shoulder DEPUY [id number] 03/13/2026 [id number] / / [id number] Screw Compression /Locking Cap Kit Exactech 4.5 X 38mm - [id number] Implanted:Qty: 1 on 03/31/2024 by Cameron Avery MD at [facility] Screw Left: Shoulder EXACTECH 10/12/2028 320-20-38 / / Screw Reverse Torque Defing Exactech - [id number] Implanted:Qty: 1 on 03/31/2024 by Cameron Avery MD at [facility] Screw Left: Shoulder EXACTECH 01/24/2029 320-20-00 / / Screw Compression /Locking Cap Kit Exactech 4.5 X 22mm - [id number] Implanted:Qty: 1 on 03/31/2024 by Cameron Avery MD at [facility] Screw Left: Shoulder EXACTECH 10/31/2028 320-20-22 / / Screw Compression /Locking Cap Kit Exactech 4.5 X 38mm - [id number] Implanted:Qty: 1 on 03/31/2024 by Cameron Avery MD at [facility] Screw Left: Shoulder EXACTECH 11/01/2028 320-20-38 / / Screw Locking Glenosphere Exactech - [id number] Implanted:Qty: 1 on 03/31/2024 by Cameron Avery MD at [facility] Screw Left: Shoulder EXACTECH 11/24/2028 320-15-05 / / Screw Compression /Locking Cap Kit Exactech 4.5 X 30mm - [id number] Implanted:Qty: 1 on 03/31/2024 by Cameron Avery MD at [facility] Screw Left: Shoulder EXACTECH 10/05/2028 320-20-30 / / Metaglene Depuy Delta Xtend - [id number] Implanted:Qty: 1 on 06/24/2021 by Gustavo So MD at [facility] Shoulder Components Right: Shoulder DEPUY [id number] 03/13/2026 [id number] / / [id number] Epiphysis Delta Xtend Depuy Size 1 Right - [id number] Implanted:Qty: 1 on 06/24/2021 by Gustavo So MD at [facility] Shoulder Components Right: Shoulder DEPUY [id number] 05/14/2025 [id number] / / [id number] Liner Depuy Acet Altrx +4 10d 36 X 52 - [id number] Implanted:Qty: 1 on 08/13/2020 by Gustavo So MD at [facility] Left: Hip DEPUY 02/11/2023 [id number] / / [id number] Hip Acetabular Depuy 52mm - [id number] Implanted:Qty: 1 on 11/19/2020 by Gustavo So MD at [facility] Right: Hip DEPUY [id number] 09/13/2030 [id number] / / [id number] M-Spec Metal Femoral Head Implanted:Qty: 1 on 11/19/2020 by Gustavo So MD at [facility] Right: Hip DEPUY [employer] 09/13/2025 [id number] / / [id number] Delta Xtend Lateralized Glenosphere +2mm 38 Standard Implanted:Qty: 1 on 06/24/2021 by Gustavo So MD at [facility] Right: Shoulder [id number] 04/13/2026 [id number] / / [id number] Glenoid Baseplate Implanted:Qty: 1 on 03/31/2024 by Cameron Avery MD at [facility] Left: Shoulder EXACTECH 06/03/2033 320-35-02 / / Reverse Glenosphere Implanted:Qty: 1 on 03/31/2024 by Cameron Avery MD at [facility] Left: Shoulder EXACTECH 11/19/2033 320-31-40 / / 3.2 Drill Bit Implanted:Qty: 1 on 03/31/2024 by Cameron Avery MD at [facility] Left: Shoulder EXACTECH 02/19/2033 321-52-07 / / Humeral Adapter Tray Implanted:Qty: 1 on 03/31/2024 by Cameron Avery MD at [facility] Left: Shoulder EXACTECH 01/04/2034 322-10-00 / / Humeral Stem Implanted:Qty: 1 on 03/31/2024 by Cameron Avery MD at [facility] Left: Shoulder EXACTECH 12/28/2033 300-01-00 / / 40mm Humeral Liner Implanted:Qty: 1 on 03/31/2024 by Cameron Avery MD at [facility] Left: Shoulder EXACTECH 12/13/2028 322-40-00 / / Explanted Type Area Box Bender Device Identifier Shelf Expiration Date Model / Serial / Lot Drill Bit [place] Depuy 40mm - [id number] Explanted:Qty: 1 on 11/19/2020 at [facility] Drill Right: Hip DEPUY [id number] / / Drill Bit Depuy 2.5 - [id number] Explanted:Qty: 1 on 06/24/2021 at [facility] Drill Right: Shoulder DEPUY [id number] / / Metaglene Guide Pin 2.5 Mm Explanted:Qty: 1 on 06/24/2021 at [facility] Right: Shoulder [id number] / / 3.2mm Gps Drill Explanted:Qty: 1 on 03/31/2024 by Cameron Avery MD at [facility] Left: Shoulder EXACTECH 11/17/2032 531-55-88 / / Threaded Pin Kit Explanted:Qty: 1 on 03/31/2024 by Cameron Avery MD at [facility] Left: Shoulder EXACTECH 01/24/2033 531-78-20 / / Gps User Kit Explanted:Qty: 1 on 03/31/2024 by Cameron Avery MD at [facility] Left: Shoulder EXACTECH 02/27/2026 [id number] / / Drill Bit Explanted:Qty: 1 on 03/31/2024 by Cameron Avery MD at [facility] Left: Shoulder EXACTECH 02/19/2033 321-52-07 / / Advance Directives Documents on File Type Date Recorded Patient Work Station Support Specialist Expl anation Advance Directives and Living Will 08/14/2020 9:58 AM 08/03/2020 DURABLE POWER OF WHEEL PRESS CLERK FOR HEALTH CARE Advance Directives and Living [...] 6:55 PM 08/14/2020 6:46 PM Care Teams Roll Mill Operator Relationship Specialty Start Date End Date Sebastien Sequeira MD [address] [place] [id number] PCP - General INTERNAL MEDICINE 08/02/20
--- OUTSIDE RECORDS SUMMARY | 2025-09-12 12:45 | XMS_ITS | Clinical Summary ---
Author Organization [facility] Address [address] [facility] Attn: Epic Prelude ADT JORDAN GUADARRAMA [address] Care Team Providers Care Mill Feeder Name Role Phone Unavailable Primary Care Provider Unavailabl e Social History Tobacco Use Types Packs/Day Years Used Date Smoking Tobacco: Never Assessed Comments Unknown Sex and Gender Information Value Date Recorded Sex Assigned at Not on file Legal Sex Female 4:24 AM PLASMA TABLE OPERATOR Gender Identity Not on file Sexual Orientation [...]
--- OUTSIDE RECORDS SUMMARY | 2025-09-12 12:45 | XMS_ITS | Encounter Summary ---
Author Organization [facility] Address [facility] [place] [address] Care Team Providers Care Senior Quality Control Inspector Name Role Phone Sebastien Sequeira MD Primary Care Provider [phone] Encounter Details Date Type Department Care Team (Latest Contact Info) Description 07/20/2018 Abstract [facility] , Zabrina Coffey MD [...] Rule Out 08/10/2020 08/10/2020 08/11/2020 11:50 AM TEXTILE CLOTHING AND FOOTWEAR MECHANIC COVID-19 Rule Out 11/16/2020 11/16/2020 11/18/2020 8:06 AM TEXTILE CLOTHING AND FOOTWEAR MECHANIC COVID-19 Rule Out 06/21/2021 06/21/2021 06/21/2021 7:19 PM CDT documented as of this encounter Care Teams Senior Quality Control Inspector Relationship Specialty Start Date End Date Sebastien Sequeira MD [address] [place] [address] PCP - General INTERNAL MEDICINE 08/02/20 documented as of this encounter
--- OUTSIDE RECORDS SUMMARY | 2025-09-12 12:45 | XMS_ITS | Encounter Summary ---
Author Organization [facility] Address [facility] [place] [address] Care Team Providers Care Electrical Unit Rebuilder Name Role Phone Sebastien Sequeira MD Primary Care Provider [phone] Encounter Details Date Type Department Care Team (Late st Contact Info) Description 08/18/2023 Exabre Message Enc [facility] [address], [address] [address] Gustavo So MD [address] [place], [place] [id number] Visit Follow Up Social History Tobacco Use [...] on filedocumented in this encounter Care Teams Electrical Unit Rebuilder Relationship Specialty Start Date End Date Sebastien Sequeira MD [address] [place] [address] PCP - General INTERNAL MEDICINE 08/02/20 documented as of this encounter
--- OUTSIDE RECORDS SUMMARY | 2025-09-12 12:45 | XMS_ITS | Encounter Summary ---
Author Organization [facility] Address [address] [place] [address] Care Team Providers Care Knife Machine Operator Name Role Phone Sebastien Sequeira MD Primary Care Provider Encounter Details Date Type Department Care Team (Late st Contact Info) Description 01/26/2023 IXcellerate Message Enc [facility] [address], [place] [id number] Adele Garcia, [facility] [address] [place] [id number] ??? TEST Social History Tobacco Use Types [...] on filedocumented in this encounter Care Teams Knife Machine Operator Relationship Specialty Start Date End Date Sebastien Sequeira MD [address] [place] [address] PCP - General INTERNAL MEDICINE 08/02/20 documented as of this encounter
--- OUTSIDE RECORDS SUMMARY | 2025-09-12 12:45 | XMS_ITS | Patient Health Record ---
Author Organization [facility] Address [address] [place], [place] [id number] Care Team Providers Care Cloth Winder Machine Operator Name Role Phone Sebastien Sequeira Unavailable Unavailable Reason For Referral No Information Medications Medication SIG (Take, Route, Frequency, Duration) Notes Start Date End Date Status alprazolam 0.25 MG Disintegrating Oral Tablet ORAL alprazolam 0.25 MG Disintegrating Oral TabletOriginal Medicationalprazolam 0.25 MG Disintegrating Oral Tablet *Reorder from [facility] for eRx and Interaction Alerts* 6 Active acetaminophen 325 MG / hydrocodone bitartrate 5 MG Oral Tablet ORAL acetaminophen 325 MG / hydrocodone bitartrate 5 MG Oral TabletOriginal Medicationacetaminophen 325 MG / hydrocodone bitartrate 5 MG Oral Tablet *Reorder from [facility] for eRx and Interaction Alerts* 6 Active levothyroxine sodium 0.075 MG Oral Tablet ORAL levothyroxine sodium 0.075 MG Oral TabletOriginal Medicationlevothyroxine sodium 0.075 MG Oral Tablet *Reorder from [facility] [place] for eRx and Interaction Alerts* 6 Active furosemide 20 MG Oral Tablet [Lasix] ORAL furosemide 20 MG Oral Tablet [Lasix]Original Medicationfurosemide 20 MG Oral Tablet [Lasix] *Reorder from [facility] [place] for eRx and Interaction Alerts* 6 Active Spironolactone 100 MG Oral Tablet ORAL spironolactone 100 MG Oral TabletOriginal Medicationspironolactone 100 MG Oral Tablet *Reorder from [facility] [place] for eRx and Interaction Alerts* 6 Active Pravastatin Sodium 40 MG Oral Tablet ORAL pravastatin sodium 40 MG Oral TabletOriginal Medicationpravastatin sodium 40 MG Oral Tablet *Reorder from [facility] for eRx and Interaction Alerts* 6 Active tramadol hydrochloride 50 MG Oral Tablet ORAL tramadol hydrochloride 50 MG Oral TabletOriginal Medicationtramadol hydrochloride 50 MG Oral Tablet *Reorder from [facility] for eRx and Interaction Alerts* 6 Active 24 HR verapamil hydrochloride 240 MG Extended Release Oral Capsule ORAL 24 HR verapamil hydrochloride 240 MG Extended Release Oral CapsuleOriginal [id number] HR verapamil hydrochloride 240 MG Extended Release Oral Capsule *Reorder from [facility] for eRx and Interaction Alerts* 6 Active 24 HR venlafaxine 150 MG Extended Release Oral Capsule [Effexor] ORAL 24 HR venlafaxine 150 MG Extended Release Oral Capsule [Effexor]Original [id number] HR venlafaxine 150 MG Extended Release Oral Capsule [Effexor] *Reorder from [facility] for eRx and Interaction Alerts* 6 Active nortriptyline 25 MG Oral Capsule ORAL nortriptyline 25 MG Oral CapsuleOriginal Medicationnortriptyline 25 MG Oral Capsule *Reorder from [facility] for eRx and Interaction Alerts* 6 Active clonazePAM 1 MG Oral Tablet ORAL clonazepam 1 MG Oral TabletOriginal Medicationclonazepam 1 MG Oral Tablet *Reorder from [facility] for eRx and Interaction Alerts* 6 Active ropinirole 2 MG Oral Tablet ORAL ropinirole 2 MG Oral TabletOriginal Medicationropinirole 2 MG Oral Tablet *Reorder from [facility] for eRx and Interaction Alerts* 6 Active pregabalin 200 MG Oral Capsule [Lyrica] ORAL pregabalin 200 MG Oral Capsule [Lyrica]Original Medicationpregabalin 200 MG Oral Capsule [Lyrica] *Reorder from [facility] for eRx and Interaction Alerts* 6 Active Social History Social History Additional Details Category Social Info Options Details Migrated Social History Migrated Social History History of tobacco use : , Smoking Status : Never smoked Plan Of Treatment No Information Insurance Providers Payer Name Payer Address Payer Phone Subscriber Number Group Number Insured Name Patient Relationship to Insured Coverage Start Date Coverage End Date Medicare Part B [place] [address] [place] [phone] [id number] KEEGAN ALVES Self - patient is the insured [facility] [address] [address] [place] [address] [id number] KEEGAN ALVES Self - patient is the insured
--- OUTSIDE RECORDS SUMMARY | 2025-09-12 12:45 | XMS_ITS | Encounter Summary ---
Author Organization [facility] Address [address] [place] [address] Care Team Providers Care Satellite Installation Technician Name Role Phone Sebastien Sequeira MD Primary Care Provider [phone] Sebastien Sequeira MD Unavailable [phone] Encounter Details Date Type Department Care Team (Late st Contact Info) Description 10/31/2024 Orders Only [facility] Health Information Management [address] [place] [id number] Scanning, Provider Social History Tobacco Use Types [...] on file Legal Sex Female 7:58 AM HEAT TREATER HELPER Gender Identity Female 02/10/2023 9:38 AM [...] on filedocumented in this encounter Care Teams Satellite Installation Technician Relationship Specialty Start Date End Date Sebastien Sequeira MD PCP - General 06/04/17 Sebastien Sequeira MD 06/04/17 documented as of this encounter
--- OUTSIDE RECORDS SUMMARY | 2025-09-12 12:46 | XMS_ITS | Clinical Summary ---
Author Organization [facility] Address [address] [place] [address] Care Team Providers Care General Adjuster Name Role Phone Sebastien Sequeira MD Primary Care Provider Sebastien Sequeira MD Unavailable [phone] Allergies Active Allergy Reactions Criticality Noted Date Comments Adhesive Blisters High 12/22/2023 Alendronate Sodium Unknown 12/22/2023 Cefdinir Unknown 12/22/2023 Atorvastatin Rash Medium 11/02/2018 Naltrexone-Bupropion Dizziness Low 08/03/2020 Lbvxjqv-Riu-Qet Reductase Inhibitors Rash Medium 08/03/2020 Tizanidine Hypotension,Other [...] 1 tablet (112 mcg total) by mouth technology teacher before breakfast 05/22/20 23 Active magnesium oxide [...] daily 90 tablet 3 05/03/20 24 Active propranolol LA (INDERAL LA) 120 [...] Take 2 tablet/capsule by mouth daily Active rosuvastatin (CRESTOR) 40 mg tablet Take 1 tablet (40 mg total) by mouth daily 90 tablet 3 06/15/20 Active furosemide (LASIX) 40 mg tablet Take 1 tablet (40 mg total) by mouth daily 90 tablet 2 07/10/20 Active Active Problems Problem Noted Date Diagnosed [...] 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 [place] [address] Faye Castro RN 08/10/2025 7:01 PM STITCHER TAPE CONTROLLED MACHINE - 08/10/2025 11:59 PM STITCHER TAPE CONTROLLED MACHINE Hospital Encounter [facility] Emergency, Room R Discharge Disposition: Discharge to home or self care 08/07/2025 Telephone [facility] [address] [facility] [address] [place] [address] Faye Castro RN 08/01/2025 10:41 AM STITCHER TAPE CONTROLLED MACHINE - 08/01/2025 11:59 PM STITCHER TAPE CONTROLLED MACHINE Hospital Encounter [facility] 2 [facility] [address] [place] [address] Frank Garcia MD Chronic pain of right knee Discharge Disposition: Discharge to home or self care 07/18/2025 11:09 AM STITCHER TAPE CONTROLLED MACHINE - 07/18/2025 11:59 PM STITCHER TAPE CONTROLLED MACHINE Hospital Encounter [facility] 2 [facility] [address] [place] [address] Frank Garcia MD Chronic pain of right knee (Primary Dx); S/P insertion of spinal cord stimulator Discharge Disposition: Discharge to home or self care from Last 3 Months Surgical History Surgery Date Site/Laterality Comments PA ARTHROPLASTY KNEE TIBIAL PLATEAU Knee Replacement - (Added by Conv) FOOT SURGERY Foot Surgery - (Added by Conv) ROTATOR CUFF REPAIR Rotator Cuff Repair - (Added by Conv) PA TOTAL ABDOMINAL HYSTERECT W/WO RMVL TUBE OVARY Hysterectomy - (Added by TW Conv) PA TENDON SHEATH INCISION Hand Incision Tendon Sheath [...] malignant neoplasm of breast - (Added by TW Conv) Migraines Mother Family history of migraine headaches - (Added by TW Conv) Migraines Sister 1 Family history of [...] on file Legal Sex Female 7:58 AM STITCHER TAPE CONTROLLED MACHINE Gender Identity Female 02/10/2023 9:38 AM CDT Sexual Orientation Straight 02/10/2023 9: 38 AM CDT Last Filed Vital Signs Vital Sign Reading Time Taken Comments Blood Pressure 90/65 08/01/2025 11:20 AM STITCHER TAPE CONTROLLED MACHINE Pulse 73 08/01/2025 11:20 AM STITCHER TAPE CONTROLLED MACHINE Temperature 35.7 C (96.2 F) 08/01/2025 10:52 AM STITCHER TAPE CONTROLLED MACHINE Respiratory Rate 18 08/01/2025 11:2 0 AM STITCHER TAPE CONTROLLED MACHINE Oxygen Saturation 94% 08/01/2025 11: 20 AM STITCHER TAPE CONTROLLED MACHINE 2L Inhaled Oxygen Concentration - - Weight 132.3 [...] B Screening 1968 Well Visit 65+ 2016 Covid-19 Vaccine (4 2024-2 6 season) 2025 06/18/2021, 11/23/2020, 11/02/2020 Depression Screening 12/16/2025 12/16/2024, 12/17/19 25 Fall Risk Assessment 03/29/2026 03/29/2025, 06/30/20 23 Pneumococcal vaccine 65+ Completed 018, 08/23/2016, 09/14/2010 Zoster Vaccine Completed 04/01/2023, 11/12, 08/22/2015 Influenza Vaccine Completed 06/20/2025, , 06/16/2022, Additional history exists Medical Devices Implanted Type Area Superintendent Automotive Device Identifier Shelf Expiration Date Model / Serial / Lot [facility] Medical [facility] Device Closure Vascade Od5 Fr Femoral Artery [id number] - [id number] Implanted:Qty: 1 on 06/29/2023 by Aleksander Novak MD at [facility] 2025 [id number] -[id number] / / [id number] [facility] Device Vascular Closure Femoral Artery Bioabsorbable Dual Method Vascade 6-7fr Collagen [id number] - [id number] Implanted:Qty: 1 on 06/29/2023 by Aleksander Novak MD at [facility] 12/22/2024 [id number]- 05U / / [id number] 12A [facility] Vascade Mvp 6-12fr Venous Closure [id number] - [id number] Implanted:Qty: 1 on 06/29/2023 by Aleksander Novak MD at [facility] 03/19/2025 [id number]- 10U / / [id number] 12C [facility] Vascade Mvp 6-12fr Venous Closure [id number] - [id number] Implanted:Qty: 1 on 06/29/2023 by Aleksander Novak MD at [facility] 02/17/2025 [id number]- 10U / / [id number] [employer] Lead Neurostimulator Percutaneous Spine Trial Octrode Titanium [id number] - [id number] Implanted:Qty: 2 on 02/02/2025 by Frank Garcia MD at [facility] N/A: Back [employer] 10/14/2027 [id number] / / [id number] [employer] Kit Lead Neurostimulator Percutaneous Spine [id number] [id number] - [id number] Implanted:Qty: 1 on 04/11/2025 by Frank Garcia MD at [facility] N/A: Back [employer] 01/13/2028 [id number] [id number] / / [id number] [employer] Kit Lead Neurostimulator Percutaneous Spine [id number] [id number] - [id number] Implanted:Qty: 1 on 04/11/2025 by Frank Garcia MD at [facility] N/A: Back [employer] Rio 01/13/2028 [id number] [id number] / / [id number] [employer] Kit Implant Lead [place] Neurostimulator Percutaneous Spine [place] Titanium 2.3mm [id number] - [id number] Implanted:Qty: 1 on 04/11/2025 by Frank Garcia MD at [facility] N/A: Back [employer] Rio 11/13/2027 [id number] / / [id number] [employer] Kit Hfx-Iq Implantable Pulse Generator Nevro Hfx-D 1090-C - [id number] - [id number] Implanted:Qty: 1 on 04/11/2025 by Frank Garcia MD at [facility] N/A: Back [employer] Rio 12/14/2027 1090-C / [id number] / [id number] Procedures Procedure Name Priority Date/Time Associated Diagnosis Comments PAIN MGMT IMAGING GENICULAR NERVE BLOCK Schedule Routine, Read Routine (OP Routine) 08/01/2025 11:16 AM STITCHER TAPE CONTROLLED MACHINE Chronic pain of right knee from Last 3 Months Results * Imaging Genicular Nerve Block (16190) (08/01/2025 11:16 AM STITCHER TAPE CONTROLLED MACHINE) Narrative [facility] - 08/01/2025 11:17 AM STITCHER TAPE CONTROLLED MACHINE The images from this study are not interpreted by Radiology. Please refer to the physician's procedure / OR operative note. us Frank Garcia MD IMG PAIN MGMT PROCEDURE S Final Result [facility] from Last 3 Months [facility] ADVANTAGE Care Teams General Adjuster Relationship Specialty Start Date End Date Sebastien Sequeira MD PCP - General 06/04/17 Sebastien Sequeira MD 06/04/17
--- OUTSIDE RECORDS SUMMARY | 2025-09-12 12:46 | XMS_ITS | Patient Health Record ---
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 No Advance Directive FULL CODE Tobacco Use: Social Info Question Answer Notes Tobacco Control (Standard) Tobacco use: Nonsmoker Additional Details Category Social Info Options Details Migrated Social History Migrated Social History Alcohol Intake: Occasional 12/22/2023,Tobacco Years: Never smoker 11/13/2023 Problems Problem Type SNOMED Code ICD Code Onset Dates Problem Status W/U Status Risk Notes Problem Moderate recurrent major depression (78952597) Major depressive disorder, recurrent, moderate (F33.1) Active confirmed Problem Generalized anxiety disorder (77184043) Generalized anxiety disorder (F41.1) Active confirmed Problem Tremor (65549455) Tremor, unspecified (R25.1) Active confirmed Vital Signs Heart Rate 72 /min 05/04/2025 Height-cm 177.8 cm 05/04/2025 Blood pressure diastolic 93 mm Hg 05/04/2025 Weight-kg 135.17 kg 05/04/2025 Height 70.00 in 05/04/2025 Blood pressure systolic 155 mm Hg 05/04/2025 Weight 298 lbs 05/04/2025 BMI 42.75 kg/m2 05/04/2025 Encounters Encounter Location Date Provider Diagnosis [address] [place] [address] 10/10/2024 Sade Bliss Major depressive disorder, recurrent, moderate F33.1 ; Generalized anxiety disorder F41.1 and Tremor, unspecified R25.[address] [place] [address] 11/22/2024 Sadeangel Bliss Generalized anxiety disorder F41.1 ; Tremor, unspecified R25.1 ; Encounter for screening for cardiovascular disorders Z13.6 ; Major depressive disorder, recurrent, moderate F33.1 ; Dietary counseling and surveillance Z71.3 and Encounter for screening for depression Z13.[address] [facility] [address] [place] [address] 01/16/2025 Sadeangel Bliss Generalized anxiety disorder F41.1 ; Major depressive disorder, recurrent, moderate F33.1 ; Tremor, unspecified R25.1 ; Dietary counseling and surveillance Z71.3 ; Encounter for screening for depression Z13.31 and Encounter for screening for cardiovascular disorders Z13.[address] [facility] [address] [place] [address] 03/02/2025 Sadeangel Bliss Generalized anxiety disorder F41.1 ; Major depressive disorder, recurrent, moderate F33.1 ; Tremor, unspecified R25.1 ; Dietary counseling and surveillance Z71.3 ; Encounter for screening for cardiovascular disorders Z13.6 and Encounter for screening for depression Z13.31 [place] [address] [facility] [address] [place] [address] 05/04/2025 Sade Bliss Major depressive disorder, recurrent, moderate F33.1 ; Generalized anxiety disorder F41.1 and Tremor, unspecified R25.1 [place] [address] [facility] [address] [place] [address] 12/16/2024 Sade Bliss [place] [address] [facility] [address] [place] [address] 12/16/2024 Sade Bliss [facility], [place] [address] [facility] [address] [place] [address] 12/20/2024 Sade Bliss [facility], [place] [address] [facility] [address] [place] [address] 10/03/2024 Sade Bliss Generalized anxiety disorder F41.1 Assessments Encounter Date Diagnosis (ICD Code) Assessment Notes Treatment Notes Treatment Clinical Notes Section Notes 10/03/2024 Generalized anxiety disorder (ICD-10 - F41.1) 11/22/2024 Generalized anxiety disorder (ICD-10 - F41.1) most recent clonazepam fill 10/31/2024 03/02/2025 Major depressive disorder, recurrent, moderate (ICD-10 [...] children and young adults, and serotonin syndrome. 01/16/2025 Major depressive disorder, recurrent, moderate (ICD-10 - F33.1) 01/16/2025 Generalized anxiety disorder (ICD-10 - F41.1) 10/10/2024 Major depressive disorder, recurrent, moderate (ICD-10 - F33.1) 10/10/2024 Generalized anxiety disorder (ICD-10 - F41.1) 01/16/2025 Tremor, unspecified (ICD-10 - R25.1) Stable 05/04/2025 Generalized anxiety disorder (ICD-10 - F41.1) LAST CLONAZEPAM FILL 04/08/2025 03/02/2025 Tremor, unspecified (ICD-10 - R25.1) Stable 11/22/2024 Tremor, unspecified (ICD-10 - R25.1) Stable 11/22/2024 Major depressive disorder, recurrent, moderate (ICD-10 - F33.1) 11/22/2024 Encounter for screening for cardiovascular disorders (ICD-10 - Z13.6) 05/04/2025 Tremor, unspecified (ICD-10 - R25.1) Stable 03/02/2025 Dietary counseling and surveillance (ICD-10 - Z71.3) 10/10/2024 Tremor, unspecified (ICD-10 - R25.1) Stable 01/16/2025 Dietary counseling and surveillance (ICD-10 - Z71.3) 01/16/2025 Encounter for screening for depression (ICD-10 - Z13.31) 11/22/2024 Dietary counseling and surveillance (ICD-10 - Z71.3) 03/02/2025 Encounter for screening for cardiovascular disorders (ICD-10 - Z13.6) 11/22/2024 Encounter for screening for depression (ICD-10 - Z13.31) 03/02/2025 Encounter for screening for depression (ICD-10 - Z13.31) 01/16/2025 Encounter for screening for cardiovascular disorders (ICD-10 - Z13.6) 03/02/2025 Other Stable on current medication regimen, [...] -Crisis prevention hotline 988. Plan Of Treatment No Information Insurance Providers Payer Name Payer Address Payer Phone Subscriber Number Group Number Insured Name Patient Relationship to Insured Coverage Start Date Coverage End Date [employer] Medicare Supplement [address] [address] JORDI SUAREZ [id number] KEEGAN ALVES Self - patient is the [...]
--- OUTSIDE RECORDS SUMMARY | 2025-09-12 12:46 | XMS_ITS ---
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
[2025-09-12 13:12] LABS: Hematocrit 37.8 % (35.0-42.0); Hemoglobin 11.7 g/dL (11.7-13.8); Mean Corpuscular HGB Conc 31.0 g/dL (32-36); Mean Corpuscular Hemoglobin 28.2 pg (27.0-31.0); Mean Corpuscular Volume 91.1 fL (78.0-102.0); Platelet Count Result 349 K/mm3 (150-420); Red Blood Count 4.15 M/mm3 (4.20-5.40); White Blood Count 7.8 K/mm3 (4.8-10.8)
[2025-09-12 14:02] LABS: Alanine Aminotransferase 14 U/L (6-35); Albumin Level 4.3 g/dL (3.5-5.1); Alkaline Phosphatase 196 U/L (38-126); Anion Gap 11 mmol/L (4-12); Aspartate Amino Transferase 25 U/L (14-36); Bilirubin,Total 0.5 mg/dL (0.2-1.3); Blood Urea Nitrogen 16 mg/dL (7-17); CRP 4.0 mg/dL (<1.0); Calcium 9.5 mg/dL (8.4-10.2); Carbon Dioxide 31 mmol/L (22-30); Chloride 100 mmol/L (98-107); Estimated Glomerular Filt Rate 47; Glucose 109 mg/dL (65-110); Magnesium 2.1 mg/dL (1.6-2.3); Osmolality Calculated 296 mOsm/kg (285-295); Potassium 3.3 mmol/L (3.4-5.0); Sodium 142 mmol/L (137-145); Total Protein 6.9 g/dL (6.3-8.2)
== END 2025-09-12 12:28 | disposition home or self-care (01) ==
PROVIDERS: PCP Internal Medicine; Visit Provider Internal Medicine
DX: S72.301A Unspecified fracture of shaft of right femur, initial encounter for closed fracture (principal); Z12.31 Encounter for screening mammogram for malignant neoplasm of breast
CPT/HCPCS: 36415; 77063; 77067; 80053; 83735; 85027; 86140